=== PATIENT | male | born 1950 | race Caucasian/White ===

== ENCOUNTER 2017-10-24 16:55 | Inpatient (IN) | payer MEDICARE, OTHER, SELFPAY ==
[2017-10-24] VITALS (9 sets, daily range): BP systolic 105–152; BP diastolic 58–84; PULSE 92–138; RESP 12–18; TEMP 37–37.2; O2SAT 93–98; BMI 31.6; BMI 30.9
--- NOTE | 2017-10-24 17:15 | NURSING ---
NO OLD EKGS
--- NOTE | 2017-10-24 17:33 | EKG12_ITS ---
Test Reason : SEPTIC Blood Pressure : / mmHG Vent. Rate : 134 BPM Atrial Rate : 134 BPM P-R Int : 146 ms QRS Dur : 078 ms QT Int : 284 ms P-R-T Axes : 040 -03 062 degrees QTc Int : 424 ms Sinus tachycardia Low voltage QRS Borderline ECG Confirmed by TITI GALLEGOS ([id number]), primer expeditor and drier ANTWON LLAMAS ([id number]) on 10/28/2017 2:23:24 PM Referred By: KWAN MUELLER Confirmed By:TITI GALLEGOS
--- NOTE | 2017-10-24 17:39 | ED.VISSUMM ---
- ER Visit Summary Date of Service: 10/24/17 Chief Complaint: Right lower leg redness History of Present Illness: The patient is a 66 M for Parkinson's disease, tww-dqcptyz-zqalnedje diabetes and prior right lower leg cellulitis earlier this year in which he became septic from it according to his . At that time he was admitted to the hospital in [place]. He states that the right lower leg cellulitis started yesterday. He was feeling worse today and they decided to bring him in. Physical Examination: Older male vital signs stable he is tachycardic 134 is a low-grade temperature 99. His sat is 97 no hypoxia. H EENT exam unremarkable and mildly dry mucous members. Neck nontender. Lungs clear to auscultation. Heart is tachycardia rate about 135. No murmur. Abdomen soft nontender. Moving all 4 extremities. He has right lower leg cellulitis from the top of the right knee all way down to his foot. It is red it is warm and swollen. It does dipesh. There is no sloughing of skin. There is no necrotic skin. He has no inguinal lymphadenopathy or tenderness on the right. Left leg is not involved. Neurologically is awake and alert. He does have known Parkinson's disease. Test Results: EKG shows a sinus tachycardia rate of 134. CBC shows elevated white count of 21,000. No bands. Electrolytes unremarkable creatinine is 1.46. Normal gap. Liver enzymes unremarkable. PT PTT unremarkable. Lactic acid is elevated 2.9. Blood cultures are sent and pending. Emergency Department Course and Treatment: Patient will be treated as a cellulitis. He may have bacteremia or sepsis. Will be given IV fluid bolus. Tylenol for his fever. Is started on IV vancomycin. He will be admitted. Repeat exam patient is doing well at 2024. He will be given a second liter of fluid. Currently his blood pressure is 105/70. Treatment Plan: I spoke to the hospitalist Dr. Saenz is evaluating the patient for admission. Disposition: Admission Impression: Acute right lower extremity cellulitis Acute sepsis History of Parkinson's disease This note was generated with [employer] dictation software. It may contain incorrect words, spelling, and punctuation that were not noted in review of the chart prior to signing ED Disposition - Plan for ED Patient: Chief Complaint: Edema Referrals: [facility] Doctor,Out of [NON-STAFF] -
--- NOTE | 2017-10-24 17:43 | ED.DCSUM_ITS ---
- ER Visit Summary Date of Service: 10/24/17 Chief Complaint: Right lower leg redness History of Present Illness: The patient is a 66 M for Parkinson's disease, non- insulin-dependent diabetes and prior right lower leg cellulitis earlier this year in which he became septic from it according to his . At that time he was admitted to the hospital in [place]. He states that the right lower leg cellulitis started yesterday. He was feeling worse today and they decided to bring him in. Physical Examination: Older male vital signs stable he is tachycardic 134 is a low-grade temperature 99. His sat is 97 no hypoxia. H EENT exam unremarkable and mildly dry mucous members. Neck nontender. Lungs clear to auscultation. Heart is tachycardia rate about 135. No murmur. Abdomen soft nontender. Moving all 4 extremities. He has right lower leg cellulitis from the top of the right knee all way down to his foot. It is red it is warm and swollen. It does dipesh. There is no sloughing of skin. There is no necrotic skin. He has no inguinal lymphadenopathy or tenderness on the right. Left leg is not involved. Neurologically is awake and alert. He does have known Parkinson's disease. Test Results: EKG shows a sinus tachycardia rate of 134. CBC shows elevated white count of 21,000. No bands. Electrolytes unremarkable creatinine is 1.46. Normal gap. Liver enzymes unremarkable. PT PTT unremarkable. Lactic acid is elevated 2.9. Blood cultures are sent and pending. Emergency Department Course and Treatment: Patient will be treated as a cellulitis. He may have bacteremia or sepsis. Will be given IV fluid bolus. Tylenol for his fever. Is started on IV vancomycin. He will be admitted. Repeat exam patient is doing well at 2024. He will be given a second liter of fluid. Currently his blood pressure is 105/70. Treatment Plan: I spoke to the hospitalist Dr. Saenz is evaluating the patient for admission. Disposition: Admission Impression: Acute right lower extremity cellulitis Acute sepsis History of Parkinson's disease This note was generated with [employer] dictation software. It may contain incorrect words, spelling, and punctuation that were not noted in review of the chart prior to signing ED Disposition - Plan for ED Patient: Chief Complaint: Edema Referrals: [facility] Doctor,Out of [NON-STAFF] -
[2017-10-24 17:58] LABS: Absolute Lymphocyte Count 0.75 X10^3/ul (0.83-4.51); Absolute Neutrophil Count 19.4 X10^3/uL (2.0-7.7); Basophil# 0.02 X10^3/uL; Basophil% 0.1 % (0-1); Eosinophil# 0.01 X10^3/uL; Hematocrit 49.4 % (40-54); Hemoglobin 16.3 g/dl (13.0-16.5); Lymphocyte # 0.75 X10^3/ul (4.0); Lymphocyte % 3.5 % (19-41); Mean Corpuscular Hgb 30.2 pg (27.0-32.0); Mean Corpuscular Volume 91.7 fL (80-94); Mean Platelet Vol. 10.9 fl (6.2-12.0); Monocyte# 1.18 X10^3/uL; Monocyte% 5.5 % (0-10); Neutrophil # 19.42 X10^3/uL (2.7-7.7); Neutrophil % 90.7 % (47-70); Platelet Count 271 K/mm3 (150-450); RBC Distribution Width SD 46.4 fl (35.1-43.9); Red Blood Count 5.39 M/mm3 (4.6-6.2); White Blood Count 21.4 K/mm3 (4.4-11.0)
[2017-10-24 18:07] LABS: POSITIVE COUNT NO; POSITIVE DIFFERENTIAL NO; POSITIVE MORPHOLOGY NO
[2017-10-24 18:08] LABS: ALB/GLOB Ratio 0.7 RATIO (0.9-2.4); AST(SGOT) 15 U/L (15-37); Alanine Aminotransfer ALT/SGPT 10 U/L (16-61); Albumin, Serum 3.3 g/dL (3.2-5.0); Alkaline Phosphatase 84 U/L (45-117); Anion Gap 8 (5-15); BUN 16 mg/dL (7-18); Calcium,Total 9.5 mg/dL (8.5-10.1); Chloride 99 mmol/L (98-107); Creatinine, Serum 1.46 mg/dL (0.70-1.30); EST Glomerular Filtration Rate 51 mL/min (>60); Est Glom Filt Rate - Afr Amer 62 mL/min (>60); Estimated Creatinine Clearance 46.85 ml/min; Globulin 4.6 g/dL (2.2-4.2); Glucose 93 mg/dL (74-106); Potassium 4.2 mmol/L (3.5-5.1); Protein, Total 7.9 g/dL (6.4-8.2); Sodium Level 136 mmol/L (136-145)
[2017-10-24 18:11] LABS: International Normalized Ratio 1.1; Prothrombin Time (Protime)PT. 14.6 SECONDS (11.7-14.9)
[2017-10-24] MEDS: 0.9% Normal Saline 1,000 ML 999 ML IV ×2 (18:28→20:28)
[2017-10-24] MEDS: Acetaminophen 500 MG Tablet 1000 MG PO (18:28)
[2017-10-24 18:44] LABS: Lactic Acid 2.9 mmol/L (0.4-2.0)
--- NOTE | 2017-10-24 18:44 | ED.RN ---
lactic acid 2.[address] dr ayala aware
[2017-10-24 19:32] LABS: Partial Thromboplast Time 30.7 Seconds (24.1-36.2)
--- NOTE | 2017-10-24 20:45 | NURSING ---
Called [facility] ED charge nursesteffany to send patient to the floor.
--- NOTE | 2017-10-24 20:59 | PCM.HP.STD ---
Problem List (1) Parkinson disease Status: Acute (2) Cellulitis Status: Acute (3) Sepsis Status: Acute (4) DMII (diabetes mellitus, type 2) Status: Acute History of Present Illness Date of Admission: 10/24/17 Chief Complaint: Right leg cellulitis The patient is a 66 year old male w/ h/o Parkinson's disease, DMII and cellulitis admitted for right leg cellulitis. He was admitted earlier this year for right leg cellulitis that led to severe sepsis. He is a poor historian. History is taken from his . His noted that his right leg is red and warm. Redness got worse. Nothing made the redness better or worse. However today, he felt lethargic and his decided to bring him into the ED. No pain with the redness. No change in swelling with the redness. Past Medical History Allergies Penicillins [PCN] Allergy (Verified 10/24/17 16:55) Unknown Home Medications: Ambulatory Orders Medication Instructions Recorded Amantadine [Symmetrel] 100 mg PO BID 10/24/17 Aspirin E.C. [Ecotrin] 81 mg PO DAILY 10/24/17 Carbidopa/Levodopa 25/100 [Sinemet] 1 tablet PO 4X/DAY 10/24/17 Lisinopril [Zestril] 10 mg PO DAILY 10/24/17 Metformin HCl [Glucophage] 500 mg PO BIDCM 10/24/17 Pravastatin Sodium [Pravachol] 20 mg PO DAILY 10/24/17 Rasagiline Mesylate [Azilect] 1 tab PO DAILY 10/24/17 Ropinirole HCl [Requip] 2 mg PO 4X/DAY 10/24/17 Senna [Senokot] 1 tablet PO BID 10/24/17 Tamsulosin HCl [Flomax] 0.4 mg PO DAILY 10/24/17 Surgical History: no surgical history Lives: Spouse/ Significant Other Smoking Status: Never smoker Alcohol: None Drugs: None - *Family History Maternal History Items: No pertinent history Review of Systems Constitutional: Denies: Chills, Fever, Weight Change HEENT: Denies: Head Aches, Sinus Congestion, Sinus Drainage Cardiovascular: Denies: Chest Pain, Palpitations Respiratory: Denies: Cough, Shortness of breath at rest, Sputum production Gastrointestinal: Denies: Abdominal Pain, Nausea, Vomiting Genitourinary: Denies: Dysuria Musculoskeletal: Denies: Joint Pain, Joint Tenderness Skin: Reports: Rash, Skin Changes. Denies: Wounds Neurological: Denies: Numbness, Tingling, Focal weakness Psychiatric: Denies: Anxiety, Depression, Homicidal Ideations, Suicidal Ideations Hematologic/ Lymphatic: Denies: Easy Bruising, Easy Bleeding VTE Information - Inpt Only VTE Present on Admission: No VTE Mechan Device Prophylaxis: SCD's VTE Pharm Prophylaxis ordered?: Yes Patient Problems: Active and Suspected Problems Parkinson disease (Acute) Cellulitis (Acute) Sepsis (Acute) DMII (diabetes mellitus, type 2) (Acute) - Physical Exam General: Alert, Oriented x3, Cooperative HEENT: Atraumatic, PERRLA, EOMI, Normocephalic Neck: Supple, No JVD, Negative Carotid Bruits Lungs: Clear to auscultation, Normal air movement Cardiovascular: Regular rate, No murmurs Abdomen: Bowel Sounds Present, Soft, Non Tender Extremities: No edema, Capillary Refill Less than 3 Seconds Skin: No rashes, No breakdown Musculoskeletal: No Tenderness to Palpation of Joints or Extremities Neurological: Cranial nerves II-XII grossly intact Psych/Mental Status: Normal Affect, Appropriate Vital Signs Temp Pulse Resp BP Pulse Ox 98.6 F 125 H 16 105/66 95 10/24/17 18:34 10/24/17 20:20 10/24/17 20:20 10/24/17 20:20 10/24/17 20:20 Assessment/Plan All Active Problems Parkinson disease (Acute) Cellulitis (Acute) Sepsis (Acute) DMII (diabetes mellitus, type 2) (Acute) 66 year old male w/ h/o Parkinson's disease, DMII and cellulitis admitted for right leg cellulitis. 1) Sepsis secondary to right leg cellulitis: Will start cefazolin and vanco. Penicillin allergy noted. Cultures pending. 2) Parkinson's disease: Resume home meds. Monitor. 3) DMII: Resume home meds. 4) Prophylaxis: SCD / lovenox.
[2017-10-24 21:53] LABS: Hemoglobin A1c 5.6 % (4.2-6.3)
[2017-10-24 21:55] LABS: Reflex Lactate? Y
[2017-10-24 23:00] LABS: Lactic Acid 1.5 mmol/L (0.4-2.0)
[2017-10-24] MEDS: Pramipexole Di-HCl 1 MG Tablet PO (23:32)
[2017-10-24] MEDS: Senna Tablet 1 TABLET PO (23:32)
[2017-10-24] MEDS: Amantadine 100 MG Capsule PO (23:32)
[2017-10-24] MEDS: Cefazolin 1 GM/50 ML BAG IV (23:32)
[2017-10-24] MEDS: Carbidopa/Levodopa 25/100 Tablet PO (23:32)
[2017-10-24] MEDS: Tamsulosin HCl 0.4 MG Capsule PO (23:32)
[2017-10-24] MEDS: Pravastatin 20 MG Tablet PO (23:32)
[2017-10-24] MEDS: 0.9% Normal Saline 1,000 ML 100 ML IV (23:33)
[2017-10-25] VITALS (9 sets, daily range): BP systolic 107–130; BP diastolic 62–81; PULSE 57–112; RESP 16–18; TEMP 36.6–37.4; O2SAT 95–97
[2017-10-25 00:01] LABS: Bedside Glucose 101 mg/dL (70-110)
--- NOTE | 2017-10-25 01:34 | PCM.RX.CS ---
Consult Pharmacy has been consulted to manage selected antiobiotic: Vancomycin Type of Consult: New start Suspected Infection: Skin/Soft tissue Prior Doses of Antibiotics Received/Current Regimen: Medications Vancomycin HCl 750 mg/ Sodium (Chloride) 265 mls @ 250 mls/hr IV Q12H SANTO Discontinued Medications Vancomycin HCl 1,500 mg/ (Sodium Chloride) 530 mls @ 250 mls/hr IV X1 ONE Stop: 10/24/17 20:07 Last Admin: 10/24/17 18:28 Dose: 250 mls/hr Labs: Sodium 136 mmol/L (136-145) 10/24/17 17:14 Potassium 4.2 mmol/L (3.5-5.1) 10/24/17 17:14 Chloride 99 mmol/L (98-107) 10/24/17 17:14 Carbon Dioxide 29.0 mmol/L (21.0-32.0) 10/24/17 17:14 Anion Gap 8 (5-15) 10/24/17 17:14 BUN 16 mg/dL (7-18) 10/24/17 17:14 Creatinine 1.46 mg/dL (0.70-1.30) H 10/24/17 17:14 Est GFR (MDRD) Af Amer 62 mL/min (>60) 10/24/17 17:14 Est GFR (MDRD) Non-Af 51 mL/min (>60) L 10/24/17 17:14 BUN/Creatinine Ratio 11.0 RATIO (10-20) 10/24/17 17:14 Glucose 93 mg/dL (74-106) 10/24/17 17:14 Weight used for dosin.2 kg Estimated Creatinine Clearance: 47 Goal Trough: 15-20 mcg/mL Pharmacy Plan for Drug Dosing: Pharmacy Service will continue to monitor and adjust dosing as required. Follow-Up Labs: Trough Vancomycin Labs to be done on [date and time ordered]: 10/26/17 @0600
[2017-10-25] MEDS: Cefazolin 1 GM/50 ML BAG IV ×3 (05:40→22:17)
[2017-10-25 05:56] LABS: Bedside Glucose 109 mg/dL (70-110)
[2017-10-25] MEDS: 0.9% Normal Saline 1,000 ML 100 ML IV ×2 (09:00→22:30)
[2017-10-25] MEDS: Senna Tablet 1 TABLET PO ×2 (10:19→22:18)
[2017-10-25] MEDS: Amantadine 100 MG Capsule PO ×2 (10:19→22:19)
[2017-10-25] MEDS: Carbidopa/Levodopa 25/100 Tablet PO ×4 (10:19→22:17)
[2017-10-25] MEDS: Pramipexole Di-HCl 1 MG Tablet PO ×4 (10:20→22:18)
[2017-10-25] MEDS: Enoxaparin 40 MG/0.4 ML Syringe SC (10:20)
[2017-10-25] MEDS: Lisinopril 10 MG Tablet PO (10:21)
[2017-10-25 12:25] LABS: Bedside Glucose 79 mg/dL (70-110)
[2017-10-25 14:54] LABS: M R Staph aureus DNA By PCR Negative (Negative); Probe Check PASS; Specimen Processing Control PASS
--- NOTE | 2017-10-25 15:21 | CASEMGMT ---
CM INITIAL ASSESSMENT: Home: Patient lives with his . HHS/Aides: Denies current or past services. Patient does not drive. DME: Patient states he uses a cane when he's out of the home. He has a walker available, but does not use it. He has grab bars, a walk in shower with seat, and a high toilet seat. Home Oxygen: Denies. Pharmacy: [facility] Advance Directives: Yes, patient states his , Yamileth Ford, is medical POA. states she will bring these documents to [facility] for filing. PCP: Jean Claude Carranza ([facility], per patient) Patient states they've recently relocated from [place] to [place]. His PCP is listed above, but I did provide a list of local PCPs to the patient and spouse. Patient states he was treated in the hospital, for cellulitis, in February. He states he spent five weeks on a rehab unit after his hospital stay. DC Plan: TBD CM will continue to follow for safe and effective discharge planning.
--- NOTE | 2017-10-25 16:56 | PCM.PN.HOSP ---
Patient Problems: Active and Suspected Problems Parkinson disease (Acute) Cellulitis (Acute) Sepsis (Acute) DMII (diabetes mellitus, type 2) (Acute) Subjective: Patient has history of Parkinson disease, diabetes mellitus type 2 but his sugars has been between 180-110 at home was admitted with right lower extremity cellulitis. He had similar right lower leg cellulitis in February 2017. He has paronychia in the right foot toenails. Patient had a small blister on the right third toe and tiny dry ulcer. No drainage. Vitals/I&O's: Vital Signs Temp Pulse Resp BP Pulse Ox 97.9 F 57 L 16 107/62 97 10/25/17 16:00 10/25/17 16:00 10/25/17 16:00 10/25/17 16:00 10/25/17 16:00 Oxygen Delivery Method Room Air Weight: 203 lb 3 oz Body Mass Index (BMI) 30.9 Intake and Output for Last 24 Hours 10/23/17 10/24/17 10/25/17 23:59 23:59 23:59 Intake Total 2948 / 2948 Output Total 775 / 775 Balance 2173 / 2173 General: Alert, Oriented x3, Cooperative HEENT: Atraumatic, PERRLA, EOMI, Normocephalic Neck: Supple, No JVD, Negative Carotid Bruits Lungs: Clear to auscultation, Normal air movement Cardiovascular: Regular rate, Normal S1, Normal S2, No murmurs Abdomen: Bowel Sounds Present, Soft, Non Tender Extremities: Capillary Refill Less than 3 Seconds, Edema Skin: Ulcer/ Wound - Tiny small dry ulcers on the right third toe. Tenia infection in between toe webs with paronychia, Rash Present - Right leg cellulitis from right knee to right ankle. Right ankle is swollen. Musculoskeletal: No Tenderness to Palpation of Joints or Extremities Neurological: Cranial nerves II-XII grossly intact Psych/Mental Status: Normal Affect, Appropriate Laboratory Results 10/24/17 22:15: Lactic Acid 1.5 10/24/17 23:46: POC Glucose 101 10/25/17 05:45: POC Glucose 109 10/25/17 12:00: POC Glucose 79 10/25/17 13:20: MRSA (PCR) Negative Current Medications Amantadine HCl (Symmetrel) 100 mg PO 0800,1999 [facility] Aspirin (Ecotrin) 81 mg PO 2200 [facility] Carbidopa/Levodopa (Sinemet) 1 tablet PO 0800,1200,1600,2200 [facility] Last Admin: 10/25/17 16:40 Dose: 1 tablet Dextrose (D50w Syringe) 0 gm IV X1 PRN; Protocol PRN Reason: Hypoglycemia Enoxaparin Sodium (Lovenox) 40 mg SC DAILY [facility] Last Admin: 10/25/17 10:20 Dose: 40 mg Glucagon () 1 mg IM .X1 PRN PRN Reason: Hypoglycemia Cefazolin Sodium () 1 gm in 50 mls @ 150 mls/hr IV Q8 [facility] Last Admin: 10/25/17 13:54 Dose: 150 mls/hr Sodium Chloride () 1,000 mls @ 100 mls/hr IV .Q10H [facility] Last Admin: 10/25/17 09:00 Dose: 100 mls/hr Vancomycin IV Pharmacy to Dose (1 ea/ Sodium Chloride) 500 mls @ 250 mls/hr IV X1 PRN; Protocol PRN Reason: Rx to Dose Vancomycin HCl 750 mg/ Sodium (Chloride) 265 mls @ 250 mls/hr IV Q12H [facility] Last Admin: 10/25/17 06:06 Dose: 250 mls/hr Insulin Human Lispro (Humalog Kwikpen (Bkc)) 0 unit SQ Q6 [facility] PRN Reason: Protocol Last Admin: 10/25/17 16:41 Dose: Not Given Lisinopril (Zestril) 10 mg PO 0800 [facility] Metformin HCl (Glucophage) 500 mg PO BIDCM [facility] Last Admin: 10/25/17 16:41 Dose: 500 mg Nystatin (Mycostatin Powder) 1 applic TOPICAL TID [facility] PRN Reason: Protocol Ondansetron HCl (Zofran) 4 mg IV Q8H PRN PRN PRN Reason: Nausea Pramipexole Dihydrochloride (Mirapex) 1 mg PO 0800,1200,1600,2200 [facility] Last Admin: 10/25/17 16:40 Dose: 1 mg Pravastatin Sodium (Pravachol) 20 mg PO DAILY@2200 [facility] Last Admin: 10/24/17 23:32 Dose: 20 mg Rasagiline (Azilect) 1 mg PO 0800 [facility] Senna (Senokot) 1 tablet PO BID [facility] Last Admin: 09/08/18 10:19 Dose: 1 tablet Sodium Chloride () 5 - 30 ml IV UD PRN PRN Reason: SALINE FLUSH Tamsulosin HCl (Flomax) 0.4 mg PO 0830 [facility] Medical Necessity - Tobacco Use Smoking Status: Never smoker Assessment/Plan All Active Problems Parkinson disease (Acute) Cellulitis (Acute) Sepsis (Acute) DMII (diabetes mellitus, type 2) (Acute) The patient is a 66 year old male w/ h/o Parkinson's disease, DMII and cellulitis admitted for right leg cellulitis. He was admitted in February 2017 for similar right leg cellulitis that led to severe sepsis. Prior to admission patient was very lethargic with redness, pain and tenderness gotten worse. 1) Sepsis sinus tachycardia, (leukocytosis, lactic acidosis) secondary to right leg cellulitis, most probably strep selected: Initially started on IV cefazolin and vancomycin. MRSA nasal screen is negative. Discontinue vancomycin. Blood cultures pending. Continue IV fluid Small right third toe dry ulcer secondary to diabetic neuropathy/possible Charcot joint along with paronychia and chronic tinea pedis: Started on IV Diflucan. Nystatin powder in 2 weeks. Wound care nurse consult. Podiatry consult. 2) Parkinson's disease: Resume home meds. Blood sugar is between 79 201. Monitor. 3) DMII: Resume home meds. Blood sugar is controlled. 4) Prophylaxis: SCD / lovenox. Code Visit Inpatient E&M: 65941 [facility] L[facility]
[2017-10-25 17:01] LABS: Bedside Glucose 76 mg/dL (70-110)
[2017-10-25 18:43] LABS: Absolute Lymphocyte Count 1.21 X10^3/ul (0.83-4.51); Absolute Neutrophil Count 9.5 X10^3/uL (2.0-7.7); Basophil# 0.03 X10^3/uL; Basophil% 0.2 % (0-1); Eosinophil# 0.09 X10^3/uL; Eosinophils% 0.7 % (0-5); Hematocrit 42.2 % (40-54); Hemoglobin 13.8 g/dl (13.0-16.5); Lymphocyte # 1.21 X10^3/ul (4.0); Lymphocyte % 9.9 % (19-41); Mean Corp Hgb Conc 32.7 g/gl (32-36); Mean Corpuscular Hgb 30.3 pg (27.0-32.0); Mean Corpuscular Volume 92.7 fL (80-94); Mean Platelet Vol. 10.8 fl (6.2-12.0); Monocyte% 10.7 % (0-10); Neutrophil # 9.53 X10^3/uL (2.7-7.7); Neutrophil % 78.3 % (47-70); POSITIVE COUNT NO; POSITIVE DIFFERENTIAL NO; POSITIVE MORPHOLOGY NO; Platelet Count 216 K/mm3 (150-450); RBC Distribution Width CV 14.5 % (11.6-14.6); RBC Distribution Width SD 47.9 fl (35.1-43.9); Red Blood Count 4.55 M/mm3 (4.6-6.2); White Blood Count 12.2 K/mm3 (4.4-11.0)
[2017-10-25 19:01] LABS: Erythrocyte Sedimentation Rate 44 mm/hr (0-20)
[2017-10-25] MEDS: Aspirin E.C. 81 MG Tablet PO (22:18)
[2017-10-25] MEDS: Tamsulosin HCl 0.4 MG Capsule PO (22:18)
[2017-10-25] MEDS: Pravastatin 20 MG Tablet PO (22:18)
[2017-10-25 23:01] LABS: Bedside Glucose 98 mg/dL (70-110)
[2017-10-26] VITALS (9 sets, daily range): BP systolic 109–130; BP diastolic 63–82; PULSE 80–92; RESP 16–18; TEMP 36.6–37.2; O2SAT 97–98
[2017-10-26] MEDS: Cefazolin 1 GM/50 ML BAG IV ×3 (05:46→21:39)
[2017-10-26] MEDS: Nystatin Powder 15gm Bottle 1 APPLIC TOPICAL (05:47)
[2017-10-26 08:04] LABS: Vancomycin, Trough Level 5.5 ug/mL (5.0-15.0)
[2017-10-26] MEDS: Amantadine 100 MG Capsule PO ×2 (08:24→16:29)
[2017-10-26] MEDS: Senna Tablet 1 TABLET PO ×2 (08:24→21:39)
[2017-10-26] MEDS: Carbidopa/Levodopa 25/100 Tablet PO ×4 (08:25→21:39)
[2017-10-26] MEDS: Pramipexole Di-HCl 1 MG Tablet PO ×4 (08:25→21:39)
[2017-10-26] MEDS: Lisinopril 10 MG Tablet PO (08:25)
[2017-10-26] MEDS: Enoxaparin 40 MG/0.4 ML Syringe SC (08:25)
[2017-10-26 08:56] LABS: Bedside Glucose 75 mg/dL (70-110)
[2017-10-26] MEDS: 0.9% Normal Saline 1,000 ML 100 ML IV ×2 (10:03→22:48)
--- NOTE | 2017-10-26 10:42 | PN_ITS ---
Patient Problems: Active and Suspected Problems Parkinson disease (Acute) Cellulitis (Acute) Sepsis (Acute) DMII (diabetes mellitus, type 2) (Acute) Subjective: This 66 year old diabetic male with a history of parkinson's was consulted to podiatry for right 3rd toe ulcer. He was admitted for right lower leg cellulitis. He has been admitted for the same issue at a hospital in [place] in February. He said that the cellulitis resolved with antibiotics. He says that he noticed the leg starting to turn red again and that he felt lethargic so he came to the ER where he was admitted. He has been on IV antibiotics and says that he has felt better each day. He says the redness to his leg continues to improve. He denies any pain to either the leg or the toe currently. He currently denies any feelings of nausea, vomiting, fever, or chills. - Physical Exam General: Alert, Oriented x3, Cooperative, No apparent distress Extremities: No cyanosis, Capillary Refill Less than 3 Seconds - to distal digits of each foot, No Calf Tenderness - negative april and maxwell sign, Edema - slight lower extremity edema noted to right lower extremity, Peripheral Pulses Normal - DP and PT pulses palpable bilateral Skin: Ulcer/ Wound - Very superficial ulcer to distal right 3rd toe that measures approximately 0.4cm x 0.6 cm x 0.1 cm. There is no purulence, no increase in warmth, no probing, no tracking, no undermining. Resolving erythema appreciated to foot/leg. Hyperkeratotic skin appreciated overlying and surrounding the site. Musculoskeletal: No Tenderness to Palpation of Joints or Extremities, - - Hammer toe dorsally contracted digits 2-5 bialteral. Hallux malleus bilateral. Decreased ankle joing rom and strength due to parkinson's Neurological: Sensory exam intact to light touch and pain Psych/Mental Status: Normal Affect, Appropriate Vital Signs Temp Pulse Resp BP Pulse Ox 99.0 F 83 16 128/82 H 97 10/26/17 04:25 10/26/17 08:00 10/26/17 04:25 10/26/17 04:25 10/26/17 04:25 Oxygen Delivery Method Room Air Weight: 92.164 kg Body Mass Index (BMI) 30.9 Intake and Output for Last 24 Hours 10/24/17 10/25/17 10/26/17 23:59 23:59 23:59 Intake Total 3648 / 3648 1428 / 1428 Output Total 875 / 875 550 / 550 Balance 2773 / 2773 878 / 878 Laboratory Tests Past 24 Hrs 10/25/17 10/25/17 10/25/17 13:20 18:00 18:00 WBC 12.2 H RBC 4.55 L Hgb 13.8 Hct 42.2 MCV 92.7 MCH 30.3 MCHC 32.7 RDW 14.5 RDW Differential 47.9 H Plt Count 216 MPV 10.8 Immature Gran % (Auto) 0.200 Neut % (Auto) 78.3 H Lymph % (Auto) 9.9 L [place] % (Auto) 10.7 H Eos % (Auto) 0.7 Baso % (Auto) 0.2 Absolute Neuts (auto) 9.5 H Absolute Lymphs (auto) 1.21 Total Counted Not Reportable ESR 44 H C-React Prot Ext Range 140.00 H Vancomycin Trough MRSA (PCR) Negative 10/26/17 06:25 WBC RBC Hgb Hct MCV MCH MCHC RDW RDW Differential Plt Count MPV Immature Gran % (Auto) Neut % (Auto) Lymph % (Auto) [place] % (Auto) Eos % (Auto) Baso % (Auto) Absolute Neuts (auto) Absolute Lymphs (auto) Total Counted ESR C-React Prot Ext Range Vancomycin Trough 5.5 MRSA (PCR) POC Glucose 10/26/17 10/25/17 10/25/17 06:45 22:10 16:38 POC Glucose 75 98 76 10/25/17 12:00 POC Glucose 79 Medical Necessity - Tobacco Use Smoking Status: Never smoker Assessment/Plan All Active Problems Parkinson disease (Acute) Cellulitis (Acute) Sepsis (Acute) DMII (diabetes mellitus, type 2) (Acute) Superficial ulcer to distal right 3rd toe Resolving cellulitis right LE DM II Parkinson's Patient was carefully examined and reviewed bedside this morning. Patient resting comfortably and feeling well. His vital signs are currently stable. His WBC went from 21.4 on admission, down to 12.2 yesterday afternoon. Patient did have elevated ESR and CRP. Blood cultures were taken and results are still pending. 3 view foot x ray taken of right foot. There were no acute fractures or dislocations appreciated. There were some chronic degenerative arthritic changes noted as well as some calcaneal spurring. Currently there was no evidence of osteomyelitis and there was no soft tissue gas appreciated. Next, using number 15 blade, a mild selective debridement was performed to the right distal third toe. Hyperkeratotic tissue was removed. Ulcer site is very superficial, with no drainage, probing, or tracking noted. Once complete, the area was dressed with aquacel ag to the base, followed by 2x2 gauze, and dyana. Patient was instructed to keep pressure off of this area while it continues to heal. He says he understands this. DVT prophylaxis and medical management per primary team are appreciated. Podiatry will continue to follow this patient closely while in house.
[2017-10-26 11:46] LABS: Bedside Glucose 75 mg/dL (70-110)
[2017-10-26 16:50] LABS: Bedside Glucose 90 mg/dL (70-110)
--- NOTE | 2017-10-26 17:10 | PCM.PN.HOSP ---
Patient Problems: Active and Suspected Problems Parkinson disease (Acute) Cellulitis (Acute) Sepsis (Acute) DMII (diabetes mellitus, type 2) (Acute) Subjective: Right lower leg erythema and induration has improved but is still it covers from knee to ankle. Patient is small right third toe dry ulcer which happened after popping of blisters. Patient has history of Parkinson disease and masked facies. He was admitted in [facility] in February 2017 as mentioned before. Vitals/I&O's: Vital Signs Temp Pulse Resp BP Pulse Ox 98.2 F 82 16 119/63 97 10/26/17 14:00 10/26/17 14:00 10/26/17 14:00 10/26/17 14:00 10/26/17 14:00 Oxygen Delivery Method Room Air Weight: 203 lb 3 oz Body Mass Index (BMI) 30.9 Intake and Output for Last 24 Hours 10/24/17 10/25/17 10/26/17 23:59 23:59 23:59 Intake Total 3648 / 3648 1778 / 1778 Output Total 875 / 875 1025 / 1025 Balance 2773 / 2773 753 / 753 General: Alert, Oriented x3, Cooperative HEENT: Atraumatic, PERRLA, EOMI, Normocephalic Neck: Supple, No JVD, Negative Carotid Bruits Lungs: Clear to auscultation, Normal air movement Cardiovascular: Regular rate, Regular Rhythm, Normal S1, Normal S2, No murmurs Abdomen: Bowel Sounds Present, Soft, Non Tender, Non-Distended Extremities: Capillary Refill Less than 3 Seconds, Edema Skin: Rash Present - Right lower leg erythema and induration. No tenderness. Musculoskeletal: No Tenderness to Palpation of Joints or Extremities, Arthritic Changes Neurological: Cranial nerves II-XII grossly intact, Neuro grossly intact Psych/Mental Status: Normal Affect, Appropriate Laboratory Results 10/25/17 18:00: WBC 12.2 H, RBC 4.55 L, Hgb 13.8, Hct 42.2, MCV 92.7, MCH 30.3, MCHC 32.7, RDW 14.5, RDW Differential 47.9 H, Plt Count 216, MPV 10.8, Immature Gran % (Auto) 0.200, Neut % (Auto) 78.3 H, Lymph % (Auto) 9.9 L, [place] % (Auto) 10.7 H, Eos % (Auto) 0.7, Baso % (Auto) 0.2, Absolute Neuts (auto) 9.5 H, Absolute Lymphs (auto) 1.21, Total Counted Not Reportable, ESR 44 H 10/25/17 18:00: C-React Prot Ext Range 140.00 H 10/25/17 22:10: POC Glucose 98 10/26/17 06:25: Vancomycin Trough 5.5 10/26/17 06:45: POC Glucose 75 10/26/17 11:38: POC Glucose 75 10/26/17 16:26: POC Glucose 90 Current Medications Amantadine HCl (Symmetrel) 100 mg PO 0800,2000 [facility] Last Admin: 10/26/17 16:29 Dose: 100 mg Aspirin (Ecotrin) 81 mg PO 2200 [facility] Last Admin: 10/25/17 22:18 Dose: 81 mg Carbidopa/Levodopa (Sinemet) 1 tablet PO 0800,1200,1600,2200 [facility] Last Admin: 10/26/17 16:28 Dose: 1 tablet Dextrose (D50w Syringe) 0 gm IV X1 PRN; Protocol PRN Reason: Hypoglycemia Enoxaparin Sodium (Lovenox) 40 mg SC DAILY [facility] Last Admin: 10/26/17 08:25 Dose: 40 mg Glucagon () 1 mg IM .X1 PRN PRN Reason: Hypoglycemia Cefazolin Sodium () 1 gm in 50 mls @ 150 mls/hr IV Q8 [facility] Last Admin: 10/26/17 13:32 Dose: 150 mls/hr Sodium Chloride () 1,000 mls @ 100 mls/hr IV .Q10H [facility] Last Admin: 10/26/17 10:03 Dose: 100 mls/hr Fluconazole (Diflucan) 200 mg in 100 mls @ 100 mls/hr IV Q24 [facility] Last Admin: 10/26/17 10:02 Dose: 100 mls/hr Insulin Human Lispro (Humalog Kwikpen (Bkc)) 0 unit SC ACHS [facility] PRN Reason: Protocol Last Admin: 10/26/17 16:28 Dose: Not Given Lisinopril (Zestril) 10 mg PO 0800 [facility] Last Admin: 10/26/17 08:25 Dose: 10 mg Metformin HCl (Glucophage) 500 mg PO BIDCM [facility] Last Admin: 10/26/17 16:29 Dose: 500 mg Nystatin (Mycostatin Powder) 1 applic TOPICAL TID [facility] PRN Reason: Protocol Last Admin: 10/26/17 13:31 Dose: Not Given Ondansetron HCl (Zofran) 4 mg IV Q8H PRN PRN PRN Reason: Nausea Pramipexole Dihydrochloride (Mirapex) 1 mg PO 0800,1200,1600,2200 [facility] Last Admin: 10/26/17 16:29 Dose: 1 mg Pravastatin Sodium (Pravachol) 20 mg PO DAILY@2200 [facility] Last Admin: 10/25/17 22:18 Dose: 20 mg Rasagiline (Azilect) 1 mg PO 0800 [facility] Last Admin: 10/26/17 08:24 Dose: 1 mg Senna (Senokot) 1 tablet PO BID [facility] Last Admin: 10/26/17 08:24 Dose: 1 tablet Sodium Chloride () 5 - 30 ml IV UD PRN PRN Reason: SALINE FLUSH Tamsulosin HCl (Flomax) 0.4 mg PO DAILY@2200 [facility] Medical Necessity - Tobacco Use Smoking Status: Never smoker Assessment/Plan All Active Problems Parkinson disease (Acute) Cellulitis (Acute) Sepsis (Acute) DMII (diabetes mellitus, type 2) (Acute) The patient is a 66 year old male w/ h/o Parkinson's disease, DMII and cellulitis admitted for right leg cellulitis. He was admitted in February 2017 for similar right leg cellulitis that led to severe sepsis. Prior to admission patient was very lethargic with redness, pain and tenderness gotten worse. 1) Sepsis sinus tachycardia, (leukocytosis, lactic acidosis) secondary to right leg cellulitis, most probably strep selected: Initially started on IV cefazolin and vancomycin. MRSA nasal screen is negative. Discontinue vancomycin. Patient seen by benefits analyst Dr. Cabezas. Discussed with him. Foot x-rays reviewed and does not show acute fracture or dislocation but chronic degenerative arthritic changes. Patient is to follow-up benefits analyst but [facility] and he agrees to follow with Dr. Cabezas as an outpatient. Blood cultures pending. Continue IV fluid Small right third toe dry ulcer secondary to diabetic neuropathy/possible Charcot joint along with paronychia and chronic tinea pedis: Started on IV Diflucan. Nystatin powder in 2 weeks. Wound care nurse consult. Podiatry consult. 2) Parkinson's disease: Resume home meds. Blood sugar is between 79 201. Monitor. 3) DMII: Resume home meds. Blood sugar is controlled. 4) Prophylaxis: SCD / lovenox. If cellulitis gets better and leukocytosis resolved, anticipate discharge tomorrow a.m. Code Visit Inpatient E&M: 42641 Subs Hosp L2
[2017-10-26] MEDS: Tamsulosin HCl 0.4 MG Capsule PO (21:39)
[2017-10-26] MEDS: Pravastatin 20 MG Tablet PO (21:39)
[2017-10-26] MEDS: Aspirin E.C. 81 MG Tablet PO (21:39)
[2017-10-26 22:06] LABS: Bedside Glucose 102 mg/dL (70-110)
[2017-10-27] VITALS (11 sets, daily range): BP systolic 126–145; BP diastolic 71–83; PULSE 67–90; RESP 16–18; TEMP 36.4–36.9; O2SAT 97–98
[2017-10-27] MEDS: Cefazolin 1 GM/50 ML BAG IV ×3 (05:00→21:53)
[2017-10-27 06:30] LABS: Basophil# 0.03 X10^3/uL; Basophil% 0.3 % (0-1); Eosinophil# 0.31 X10^3/uL; Eosinophils% 3.4 % (0-5); Hematocrit 41.5 % (40-54); Hemoglobin 13.4 g/dl (13.0-16.5); Lymphocyte % 18.6 % (19-41); Mean Corp Hgb Conc 32.3 g/gl (32-36); Mean Corpuscular Hgb 29.8 pg (27.0-32.0); Mean Corpuscular Volume 92.4 fL (80-94); Mean Platelet Vol. 10.8 fl (6.2-12.0); Monocyte# 1.12 X10^3/uL; Monocyte% 12.3 % (0-10); Neutrophil # 5.96 X10^3/uL (2.7-7.7); Neutrophil % 65.2 % (47-70); Platelet Count 221 K/mm3 (150-450); RBC Distribution Width SD 47.4 fl (35.1-43.9); Red Blood Count 4.49 M/mm3 (4.6-6.2); White Blood Count 9.1 K/mm3 (4.4-11.0)
[2017-10-27 06:31] LABS: POSITIVE COUNT NO; POSITIVE DIFFERENTIAL NO; POSITIVE MORPHOLOGY NO
[2017-10-27 07:01] LABS: Bedside Glucose 90 mg/dL (70-110)
--- NOTE | 2017-10-27 07:42 | PN_ITS ---
Patient Problems: Active and Suspected Problems Parkinson disease (Acute) Cellulitis (Acute) Sepsis (Acute) DMII (diabetes mellitus, type 2) (Acute) Subjective: Patient was seen this morning for follow up right lower extremity cellulitis, and blister right 3rd toe. He denies any pain, relates he is doing well. No complaints of fever, chills, nausea, or vomiting. He relates he has had left foot pain for ~1 month, states there was no injury, he points to the medial foot as the site of the pain - he relates it is present when he gets up in the morning. He states he has custom foot orthotics which are ~4-5 years old. - Physical Exam General: Alert, Oriented x3, Cooperative, No apparent distress Extremities: No cyanosis, Capillary Refill Less than 3 Seconds, No Calf Tenderness, Peripheral Pulses Normal, - - Resolving cellulitis right foot/ankle/ leg. Superficial blister distal right 3rd toe healing well with very small residual opening present measuring less than 1mm x 1mm and down to dermal layer , tissues healthy and viable with no drainage, no visible abscess, no crepitus, no fluctuance, no necrosis, no maloder here or rest of foot/ankle/leg bilateral. Toenails 3-5 right are thickened, dystrophic, yellow with subungual debris. Sensation to touch bilateral foot and to level of the toes bilateral. He relates he has pain to the medial left foot, with some tenderness to the insertion of the posterior tibial tendon. No other POP or pain on ROM to the foot/ankle bilateral. There is no erythema or edema to the left foot/ankle/leg. Musculoskeletal: No Tenderness to Palpation of Joints or Extremities - to the foot or ankle. There is chronic contracture of the toes bilateral. Vital Signs Temp Pulse Resp BP Pulse Ox 97.7 F L 74 18 133/77 H 98 10/27/17 02:40 10/27/17 03:12 10/27/17 02:40 10/27/17 02:40 10/27/17 02:40 Oxygen Delivery Method Room Air Weight: 92.164 kg Body Mass Index (BMI) 30.9 Intake and Output for Last 24 Hours 10/25/17 10/26/17 10/27/17 23:59 23:59 23:59 Intake Total 3648 / 3648 2939 / 2939 600 / 600 Output Total 875 / 875 1625 / 1625 450 / 450 Balance 2773 / 2773 1314 / 1314 150 / 150 Laboratory Tests Past 24 Hrs 10/26/17 10/27/17 06:25 05:25 WBC 9.1 RBC 4.49 L Hgb 13.4 Hct 41.5 MCV 92.4 MCH 29.8 MCHC 32.3 RDW 14.0 RDW Differential 47.4 H Plt Count 221 MPV 10.8 Immature Gran % (Auto) 0.200 Neut % (Auto) 65.2 Lymph % (Auto) 18.6 L [place] % (Auto) 12.3 H Eos % (Auto) 3.4 Baso % (Auto) 0.3 Absolute Neuts (auto) 6.0 Absolute Lymphs (auto) 1.70 Total Counted Not Reportable Vancomycin Trough 5.5 POC Glucose 10/27/17 10/26/17 10/26/17 06:49 21:34 16:26 POC Glucose 90 102 90 10/26/17 10/26/17 11:38 06:45 POC Glucose 75 75 Medical Necessity - Tobacco Use Smoking Status: Never smoker Assessment/Plan All Active Problems Parkinson disease (Acute) Cellulitis (Acute) Sepsis (Acute) DMII (diabetes mellitus, type 2) (Acute) Cellulitis right foot/ankle/leg Blister right 3rd toe Dystrophic Toes/Onychomycosis Diabetes Parkinson's Disease Posterior tibial tendonitis, left foot Cellulitis resolving and overall much improved. WBC now within normal limits. Blister right 3rd toe healing well, a culture was obtained and sent to microbiology. Blood culture results pending. Patient has been responding well to the Ancef - c/w strep infection. Continue with antibiotic therapy, and follow cultures. Continue with dressing changes right 3rd toe - Aquacel Ag and overlying gauze dressing. Change daily. Avoid weightbearing to the right 3rd toe. Patient also relating to pain in left foot for ~1 month at level of posterior tibial tendon insertion. Left foot xrays, 3 views, weightbearing were ordered. Patient relates his custom foot orthotics are 4-5 years old, he would benefits from a new updated pair. He will follow up as outpatient for this. Debrided toenails with a nail nipper, this was done without incident. Podiatry will continue to follow. Patient to follow up in our office for follow up once discharged. This was discussed with patient, he agreed with plan.
[2017-10-27] MEDS: Enoxaparin 40 MG/0.4 ML Syringe SC (08:26)
[2017-10-27] MEDS: Carbidopa/Levodopa 25/100 Tablet PO ×4 (08:27→21:52)
[2017-10-27] MEDS: Pramipexole Di-HCl 1 MG Tablet PO ×4 (08:27→21:52)
[2017-10-27] MEDS: Senna Tablet 1 TABLET PO ×2 (08:27→21:51)
[2017-10-27] MEDS: Lisinopril 10 MG Tablet PO (08:27)
[2017-10-27] MEDS: Amantadine 100 MG Capsule PO ×2 (08:27→19:56)
[2017-10-27] MEDS: 0.9% Normal Saline 1,000 ML 100 ML IV ×2 (08:30→19:55)
[2017-10-27 10:50] LABS: M R Staph aureus DNA By PCR Negative (Negative); Probe Check PASS; Specimen Processing Control PASS; Staph aureus DNA By PCR NEGATIVE (Negative)
--- NOTE | 2017-10-27 11:12 | PCM.PN.HOSP ---
Patient Problems: Active and Suspected Problems Parkinson disease (Acute) Cellulitis (Acute) Sepsis (Acute) DMII (diabetes mellitus, type 2) (Acute) Objective: GENERAL: cooperative HEENT: neck is supple, CHEST: Clear to auscultation bilaterally, HEART: Regular S1 S2, no audible murmurs ABDOMEN: soft, non-tender, normoactive bowel sounds, RECTAL: deferred MUSCULOSKELETAL: No joint swelling EXTREMITIES: No edema, no clubbing, no cyanosis. 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 signs SKIN: Erythema involving the right lower extremity from mid shaft to the foot Vitals/I&O's: Vital Signs Temp Pulse Resp BP Pulse Ox 97.9 F 86 18 127/71 H 97 10/27/17 08:38 10/27/17 08:38 10/27/17 08:38 10/27/17 08:38 10/27/17 08:38 Oxygen Delivery Method Room Air Weight: 92.164 kg Body Mass Index (BMI) 30.9 Intake and Output for Last 24 Hours 10/25/17 10/26/17 10/27/17 23:59 23:59 23:59 Intake Total 3648 / 3648 2939 / 2939 600 / 600 Output Total 875 / 875 1625 / 1625 450 / 450 Balance 2773 / 2773 1314 / 1314 150 / 150 Laboratory Results 10/26/17 11:38: POC Glucose 75 10/26/17 16:26: POC Glucose 90 10/26/17 21:34: POC Glucose 102 10/27/17 05:25: WBC 9.1, RBC 4.49 L, Hgb 13.4, Hct 41.5, MCV 92.4, MCH 29.8, MCHC 32.3, RDW 14.0, RDW Differential 47.4 H, Plt Count 221, MPV 10.8, Immature Gran % (Auto) 0.200, Neut % (Auto) 65.2, Lymph % (Auto) 18.6 L, [place] % (Auto) 12.3 H, Eos % (Auto) 3.4, Baso % (Auto) 0.3, Absolute Neuts (auto) 6.0, Absolute Lymphs (auto) 1.70, Total Counted Not Reportable 10/27/17 06:49: POC Glucose 90 10/27/17 07:40: S.aureus Protein A PCR NEGATIVE, MRSA (PCR) Negative Current Medications Amantadine HCl (Symmetrel) 100 mg PO 0800,2000 [facility] Last Admin: 10/27/17 08:27 Dose: 100 mg Aspirin (Ecotrin) 81 mg PO 2200 [facility] Last Admin: 10/26/17 21:39 Dose: 81 mg Carbidopa/Levodopa (Sinemet) 1 tablet PO 0800,1200,1600,2200 [facility] Last Admin: 10/27/17 08:27 Dose: 1 tablet Dextrose (D50w Syringe) 0 gm IV X1 PRN; Protocol PRN Reason: Hypoglycemia Enoxaparin Sodium (Lovenox) 40 mg SC DAILY [facility] Last Admin: 10/27/17 08:26 Dose: 40 mg Glucagon () 1 mg IM .X1 PRN PRN Reason: Hypoglycemia Cefazolin Sodium () 1 gm in 50 mls @ 150 mls/hr IV Q8 [facility] Last Admin: 10/27/17 05:00 Dose: 150 mls/hr Sodium Chloride () 1,000 mls @ 100 mls/hr IV .Q10H [facility] Last Admin: 10/27/17 08:30 Dose: 100 mls/hr Fluconazole (Diflucan) 200 mg in 100 mls @ 100 mls/hr IV Q24 [facility] Last Admin: 10/27/17 10:56 Dose: 100 mls/hr Insulin Human Lispro (Humalog Kwikpen (Bkc)) 0 unit SC ACHS [facility] PRN Reason: Protocol Last Admin: 10/27/17 07:36 Dose: Not Given Lisinopril (Zestril) 10 mg PO 0800 [facility] Last Admin: 10/27/17 08:27 Dose: 10 mg Metformin HCl (Glucophage) 500 mg PO BIDCM [facility] Last Admin: 10/27/17 08:27 Dose: 500 mg Nystatin (Mycostatin Powder) 1 applic TOPICAL TID [facility] PRN Reason: Protocol Last Admin: 10/27/17 05:00 Dose: Not Given Ondansetron HCl (Zofran) 4 mg IV Q8H PRN PRN PRN Reason: Nausea Pramipexole Dihydrochloride (Mirapex) 1 mg PO 0800,1200,1600,2200 [facility] Last Admin: 10/27/17 08:27 Dose: 1 mg Pravastatin Sodium (Pravachol) 20 mg PO DAILY@2200 [facility] Last Admin: 10/26/17 21:39 Dose: 20 mg Rasagiline (Azilect) 1 mg PO 0800 [facility] Last Admin: 10/27/17 08:29 Dose: 1 mg Senna (Senokot) 1 tablet PO BID [facility] Last Admin: 10/27/17 08:27 Dose: 1 tablet Sodium Chloride () 5 - 30 ml IV UD PRN PRN Reason: SALINE FLUSH Tamsulosin HCl (Flomax) 0.4 mg PO DAILY@2199 [facility] Last Admin: 10/26/17 21:39 Dose: 0.4 mg Medical Necessity - Tobacco Use Smoking Status: Never smoker Assessment/Plan All Active Problems Parkinson disease (Acute) Cellulitis (Acute) Sepsis (Acute) DMII (diabetes mellitus, type 2) (Acute) Patient is a 66-year-old gentleman with past medical history significant for Parkinson's disease, diabetes mellitus type 2 who presented with right lower extremity erythema and warmth consistent with cellulitis. Patient was also assessed to be septic on admission treatment initiated per protocol admitted to a monitored bed for further management 1. Sepsis secondary to right lower extremity cellulitis suspected to be streptococcal in origin patient was managed with cefazolin and vancomycin MRSA nasal screen apparently came back negative vancomycin discontinued. Patient stated this is his second episode in less than 6 months consultation was therefore placed to infectious disease 2. Diabetes mellitus type II patient is on metformin this was continued in addition to Accu-Cheks before meals and at bedtime with sliding scale coverage 3. Parkinson's disease did continue with home meds . Obesity with BMI of 30.9 weight loss advised 5. Hypertension-blood pressure controlled, home medications continued with dose adjustment as needed 6. Dyslipidemia-patient is on statin therapy, continued at home dose 7. BPH on Flomax 8. DVT prophylaxis SC Lovenox Active Medications Amantadine HCl (Symmetrel) 100 mg PO 0800,2000 [facility] Last Admin: 10/27/17 08:27 Dose: 100 mg Aspirin (Ecotrin) 81 mg PO 2199 [facility] Last Admin: 10/26/17 21:39 Dose: 81 mg Carbidopa/Levodopa (Sinemet) 1 tablet PO 0800,1200,1600,2200 [facility] Last Admin: 10/27/17 11:33 Dose: 1 tablet Dextrose (D50w Syringe) 0 gm IV X1 PRN; Protocol PRN Reason: Hypoglycemia Enoxaparin Sodium (Lovenox) 40 mg SC DAILY [facility] Last Admin: 10/27/17 08:26 Dose: 40 mg Glucagon () 1 mg IM .X1 PRN PRN Reason: Hypoglycemia Cefazolin Sodium () 1 gm in 50 mls @ 150 mls/hr IV Q8 [facility] Last Admin: 10/27/17 05:00 Dose: 150 mls/hr Sodium Chloride () 1,000 mls @ 100 mls/hr IV .Q10H [facility] Last Admin: 10/27/17 08:30 Dose: 100 mls/hr Fluconazole (Diflucan) 200 mg in 100 mls @ 100 mls/hr IV Q24 [facility] Last Admin: 10/27/17 10:56 Dose: 100 mls/hr Insulin Human Lispro (Humalog Kwikpen (Bkc)) 0 unit SC ACHS [facility] PRN Reason: Protocol Last Admin: 10/27/17 11:33 Dose: Not Given Lisinopril (Zestril) 10 mg PO 0800 [facility] Last Admin: 10/27/17 08:27 Dose: 10 mg Metformin HCl (Glucophage) 500 mg PO BIDCM [facility] Last Admin: 10/27/17 08:27 Dose: 500 mg Nystatin (Mycostatin Powder) 1 applic TOPICAL TID [facility] PRN Reason: Protocol Last Admin: 10/27/17 05:00 Dose: Not Given Ondansetron HCl (Zofran) 4 mg IV Q8H PRN PRN PRN Reason: Nausea Pramipexole Dihydrochloride (Mirapex) 1 mg PO 0800,1200,1600,2200 [facility] Last Admin: 10/27/17 11:33 Dose: 1 mg Pravastatin Sodium (Pravachol) 20 mg PO DAILY@2200 [facility] Last Admin: 10/26/17 21:39 Dose: 20 mg Rasagiline (Azilect) 1 mg PO 0800 [facility] Last Admin: 10/27/17 08:29 Dose: 1 mg Senna (Senokot) 1 tablet PO BID [facility] Last Admin: 10/27/17 08:27 Dose: 1 tablet Sodium Chloride () 5 - 30 ml IV UD PRN PRN Reason: SALINE FLUSH Tamsulosin HCl (Flomax) 0.4 mg PO DAILY@2200 [facility] Last Admin: 10/26/17 21:39 Dose: 0.4 mg Code Visit Inpatient E&M: 63918 Subs Hosp L2
[2017-10-27 11:41] LABS: Bedside Glucose 80 mg/dL (70-110)
--- NOTE | 2017-10-27 14:21 | CON.PCM_ITS ---
Reason for Consult: Right leg cellulitis Consulted by: Dr. Mcgarry History of Present Illness: The patient is a 66 year old M [] This is a 66-year-old gentleman long-standing history of diabetes mellitus, Parkinson's disease, history of right leg cellulitis which she was hospitalized in [facility] in February for which she received antimicrobial therapy. At that time he was seen by an infectious disease doctor Dr. Hwang and was managed at that time with antibiotics. Patient is now readmitted here to [facility] with right leg erythema found to have a marked leukocytosis. Patient was placed on cefazolin empirically. His admission blood cultures remain negative. The patient states that his right leg erythema has improved over the last 48-72 hours. No further fevers. This is a second episode of lower extremity cellulitis. No cardiopulmonary distress. No gastrointestinal symptoms he is otherwise hemodynamically stable at this time. - Medical History Allergies/Adverse Reactions: Allergies Penicillins [PCN] Allergy (Verified 10/24/17 21:46) Unknown Home Medications: Ambulatory Orders Medication Instructions Recorded Amantadine [Symmetrel] 100 mg PO BID 10/24/17 Aspirin E.C. [Ecotrin] 81 mg PO DAILY 10/24/17 Carbidopa/Levodopa 25/100 [Sinemet] 1 tablet PO 4X/DAY 10/24/17 Lisinopril [Zestril] 10 mg PO DAILY 10/24/17 Metformin HCl [Glucophage] 500 mg PO BIDCM 10/24/17 Pravastatin Sodium [Pravachol] 20 mg PO DAILY 10/24/17 Rasagiline Mesylate [Azilect] 1 tab PO DAILY 10/24/17 Ropinirole HCl [Requip] 2 mg PO 4X/DAY 10/24/17 Senna [Senokot] 1 tablet PO BID 10/24/17 Tamsulosin HCl [Flomax] 0.4 mg PO DAILY 10/24/17 Vital Signs Temp Pulse Resp BP Pulse Ox 97.9 F 90 18 127/71 H 97 10/27/17 08:38 10/27/17 11:09 10/27/17 08:38 10/27/17 08:38 10/27/17 08:38 Oxygen Delivery Method Room Air Weight: 92.164 kg Body Mass Index (BMI) 30.9 Laboratory Tests Past 24 Hrs 10/27/17 10/27/17 05:25 07:40 WBC 9.1 RBC 4.49 L Hgb 13.4 Hct 41.5 MCV 92.4 MCH 29.8 MCHC 32.3 RDW 14.0 RDW Differential 47.4 H Plt Count 221 MPV 10.8 Immature Gran % (Auto) 0.200 Neut % (Auto) 65.2 Lymph % (Auto) 18.6 L [place] % (Auto) 12.3 H Eos % (Auto) 3.4 Baso % (Auto) 0.3 Absolute Neuts (auto) 6.0 Absolute Lymphs (auto) 1.70 Total Counted Not Reportable S.aureus Protein A PCR NEGATIVE MRSA (PCR) Negative - Other Studies Radiology: [] Other Studies: [] Route of nutrition/ use of supplements: [] Nutritional Intake: [] IV Site: [] Vincent Catheter: [] Patient alert does not appear toxic head and neck exams unremarkable lungs with clear heart exam S1-S2 abdomen soft nontender he does have some erythema in his right leg. Left leg looks benign both feet I examined no signs of active infection in his feet - Assessment/Plan Antibiotics: [] Assessment/Plan: [] Active and Suspected Problems Parkinson disease (Acute) Cellulitis (Acute) Sepsis (Acute) DMII (diabetes mellitus, type 2) (Acute) Sepsis with right leg cellulitis clinically improving on Ancef 1 g every 8 hours. Given the clinical improvement will continue current antimicrobial therapy. Anticipate that he will be transferred over to oral antibiotics in the form of Keflex 500 mg p.o. 4 times daily for 7-10 more days upon discharge. Given the fact that this is his second episode I do not see a need for chronic suppressive oral antibiotics to prevent subsequent episodes but however if he has further bouts of infection especially his skin and soft tissue infection we must entertain the possibility of oral suppressive antibiotics such as penicillin or Keflex on a daily basis.
[2017-10-27 17:01] LABS: Bedside Glucose 111 mg/dL (70-110)
[2017-10-27] MEDS: Acetaminophen 325 MG Tablet 650 MG PO (20:33)
[2017-10-27] MEDS: Pravastatin 20 MG Tablet PO (21:52)
[2017-10-27] MEDS: Tamsulosin HCl 0.4 MG Capsule PO (21:53)
[2017-10-27] MEDS: Aspirin E.C. 81 MG Tablet PO (21:53)
[2017-10-27 22:06] LABS: Bedside Glucose 138 mg/dL (70-110)
[2017-10-28 02:36] VITALS: BP 137/74; PULSE 60; RESP 16; TEMP 36.5; O2SAT 99
[2017-10-28 03:14] VITALS: PULSE 62
[2017-10-28] MEDS: Cefazolin 1 GM/50 ML BAG IV (06:03)
[2017-10-28] MEDS: 0.9% Normal Saline 1,000 ML 100 ML IV (06:03)
[2017-10-28 07:30] VITALS: PULSE 61
[2017-10-28 07:35] LABS: Bedside Glucose 89 mg/dL (70-110)
[2017-10-28 08:00] VITALS: BP 125/69; PULSE 64; RESP 16; TEMP 36.7; O2SAT 98
[2017-10-28] MEDS: Carbidopa/Levodopa 25/100 Tablet PO (08:06)
[2017-10-28] MEDS: Amantadine 100 MG Capsule PO (08:06)
[2017-10-28] MEDS: Lisinopril 10 MG Tablet PO (08:06)
[2017-10-28] MEDS: Pramipexole Di-HCl 1 MG Tablet PO (08:07)
[2017-10-28] MEDS: Senna Tablet 1 TABLET PO (08:12)
--- NOTE | 2017-10-28 09:29 | PCM.PROGNOTE ---
Patient Problems: Active and Suspected Problems Parkinson disease (Acute) Cellulitis (Acute) Sepsis (Acute) DMII (diabetes mellitus, type 2) (Acute) Subjective: Patient was seen today for follow up right foot and left foot. States he is doing well, no new complaints. No complaints of fever, chills, nausea or vomiting. Patient sitting up in chair eating breakfast. - Physical Exam General: Alert, Oriented x3, Cooperative, No apparent distress Extremities: No cyanosis, Capillary Refill Less than 3 Seconds, No Calf Tenderness, Peripheral Pulses Normal, - - Cellulitis right foot/ankle/leg practically resolved. Superficial blister distal right 3rd toe healed, tissues healthy and viable with no drainage, no visible abscess, no crepitus, no fluctuance, no necrosis, no maloder here or rest of foot/ankle/leg bilateral. Sensation to touch bilateral foot and to level of the toes bilateral. He relates he has pain to the medial left foot, with some tenderness to the insertion of the posterior tibial tendon along medial foot. Gastrocsolues equinus bilateral. Contracture of toes bilateral. No other POP or pain on ROM to the foot/ankle bilateral. There is no erythema or edema to the left foot/ankle/leg. Vital Signs Temp Pulse Resp BP Pulse Ox 97.7 F L 61 16 137/74 H 99 10/28/17 02:36 10/28/17 07:30 10/28/17 02:36 10/28/17 02:36 10/28/17 02:36 Oxygen Delivery Method Room Air Weight: 92.164 kg Body Mass Index (BMI) 30.9 Intake and Output for Last 24 Hours 10/26/17 10/27/17 10/28/17 23:59 23:59 23:59 Intake Total 2939 / 2939 2490 / 2490 1499 / 1499 Output Total 1625 / 1625 1200 / 1200 700 / 700 Balance 1314 / 1314 1290 / 1290 799 / 799 Microbiology Past 72 Hours 10/27/17 07:40 Gram Stain - Final Wound - Toe Laboratory Tests Past 24 Hrs 10/27/17 07:40 S.aureus Protein A PCR NEGATIVE MRSA (PCR) Negative POC Glucose 10/28/17 10/27/17 10/27/17 06:51 21:50 16:55 POC Glucose 89 138 H 111 H 10/27/17 11:30 POC Glucose 80 Medical Necessity - Tobacco Use Smoking Status: Never smoker Assessment/Plan All Active Problems Parkinson disease (Acute) Cellulitis (Acute) Sepsis (Acute) DMII (diabetes mellitus, type 2) (Acute) Cellulitis right foot/ankle/leg Blister right 3rd toe Dystrophic Toes/Onychomycosis Diabetes Parkinson's Disease Posterior tibial tendonitis, left foot Gastrocsoleus equinus Cellulitis significant improvement noted. Blister right 3rd toe heal is healed. Reviewed culture results. Patient has been responding well to the Ancef - Infectious Disease following patient, and recommended Keflex for discharge. 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 Continue with dressing changes right 3rd toe to keep protected - Aquacel Ag and overlying gauze dressing applied today. Switch to dry gauze dressing when patient goes home to keep protected until he follows up as outpatient. Reviewed left foot xrays - no acute findings noted. Clinically c/w posterior tibial tendonitis, as well as gastrocsoleus equinus. Reviewed home stretching exercises. Patient relates his custom foot orthotics are 4-5 years old, he would benefits from a new updated pair. He will follow up as outpatient for this. Podiatry will continue to follow. Patient to follow up in our office early next week once discharged. This was discussed with patient, he agreed with plan.
--- NOTE | 2017-10-28 09:35 | PCM.DC.POD ---
Weight Bearing Status: - - Limit weightbearing to toes right foot Additional Dressing/Incision Instructions:: Right 3rd toe - cleanse with soap and clean water - apply overlying dry gauze dressing - change daily. Additional Instructions: Follow up with Dr. Cabezas or Dr. Tripathi at [facility] ([address], [address]), [place], [place] for follow up foot care next week, sooner if needed. Allergies/Adverse Reactions: Allergies Penicillins [PCN] Allergy (Verified 10/24/17 21:46) Unknown Medications to take at Discharge Amantadine [Symmetrel] 100 mg PO BID 10/24/17 Aspirin E.C. [Ecotrin] 81 mg PO DAILY 10/24/17 Carbidopa/Levodopa 25/100 [Sinemet] 1 tablet PO 4X/DAY 10/24/17 Lisinopril [Zestril] 10 mg PO DAILY 10/24/17 Metformin HCl [Glucophage] 500 mg PO BIDCM 10/24/17 Pravastatin Sodium [Pravachol] 20 mg PO DAILY 10/24/17 Rasagiline Mesylate [Azilect] 1 tab PO DAILY 10/24/17 Ropinirole HCl [Requip] 2 mg PO 4X/DAY 10/24/17 Senna [Senokot] 1 tablet PO BID 10/24/17 Tamsulosin HCl [Flomax] 0.4 mg PO DAILY 10/24/17 Primary Care Physician: [facility] Doctor,Out of [NON-STAFF] - Test Results: Test results from this visit will be discussed in further detail at your follow-up appointment, if applicable.
--- NOTE | 2017-10-28 09:38 | DCINST_ITS ---
Weight Bearing Status: - - Limit weightbearing to toes right foot Additional Dressing/Incision Instructions:: Right 3rd toe - cleanse with soap and clean water - apply overlying dry gauze dressing - change daily. Additional Instructions: Follow up with Dr. Cabezas or Dr. Tripathi at [facility] ([address], [address]), [place], [place] for follow up foot care next week, sooner if needed. Allergies/Adverse Reactions: Allergies Penicillins [PCN] Allergy (Verified 10/24/17 21:46) Unknown Medications to take at Discharge Amantadine [Symmetrel] 100 mg PO BID 10/24/17 Aspirin E.C. [Ecotrin] 81 mg PO DAILY 10/24/17 Carbidopa/Levodopa 25/100 [Sinemet] 1 tablet PO 4X/DAY 10/24/17 Lisinopril [Zestril] 10 mg PO DAILY 10/24/17 Metformin HCl [Glucophage] 500 mg PO BIDCM 10/24/17 Pravastatin Sodium [Pravachol] 20 mg PO DAILY 10/24/17 Rasagiline Mesylate [Azilect] 1 tab PO DAILY 10/24/17 Ropinirole HCl [Requip] 2 mg PO 4X/DAY 10/24/17 Senna [Senokot] 1 tablet PO BID 10/24/17 Tamsulosin HCl [Flomax] 0.4 mg PO DAILY 10/24/17 Primary Care Physician: [facility] Doctor,Out of [NON-STAFF] - Test Results: Test results from this visit will be discussed in further detail at your follow- up appointment, if applicable.
--- NOTE | 2017-10-28 09:56 | PCM.DC ---
- Discharge Diagnoses Current Active Problems: Current Active and Chronic Problems Parkinson disease (Acute) Cellulitis (Acute) Sepsis (Acute) DMII (diabetes mellitus, type 2) (Acute) You will use the following diet at home:: Calorie/Carbohydrate Controlled (specify 1200, 1400, etc) - 1800 Your food should be the consistency of: Regular Discharge Activity: Return to Normal Activity Weight Bearing Status: - - Limit weightbearing to toes right foot Additional Dressing/Incision Instructions:: Right 3rd toe - cleanse with soap and clean water - apply overlying dry gauze dressing - change daily. Allergies/Adverse Reactions: Allergies Penicillins [PCN] Allergy (Verified 10/24/17 21:46) Unknown Medications to take at Discharge Amantadine [Symmetrel] 100 mg PO BID 10/24/17 Aspirin E.C. [Ecotrin] 81 mg PO DAILY 10/24/17 Carbidopa/Levodopa 25/100 [Sinemet 25/100] 1 tablet PO 4X/DAY 10/24/17 Lisinopril [Zestril] 10 mg PO DAILY 10/24/17 Metformin HCl [Glucophage] 500 mg PO BIDCM 10/24/17 Pravastatin Sodium [Pravachol] 20 mg PO DAILY 10/24/17 Rasagiline Mesylate [Azilect] 1 tab PO DAILY 10/24/17 Ropinirole HCl [Requip] 2 mg PO 4X/DAY 10/24/17 Senna [Senokot] 1 tablet PO BID 10/24/17 Tamsulosin HCl [Flomax] 0.4 mg PO DAILY 10/24/17 Cephalexin [Keflex] 500 mg PO Q6 #28 cap 10/28/17 The following prescriptions were given: Cephalexin [Keflex] 500 mg PO Q6 #28 cap Primary Care Physician: [facility] Doctor,Out of [NON-STAFF] - Test Results: Test results from this visit will be discussed in further detail at your follow-up appointment, if applicable. Please Follow Up With: Roman Tripathi DPM When: as scheduled Proposed Discharge Date: 10/28/17
--- NOTE | 2017-10-28 09:58 | PCM.DC.SUM ---
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 Patient was also assessed to be septic on admission treatment initiated per protocol admitted to a monitored bed for further management 1. Sepsis secondary to right lower extremity cellulitis suspected to be streptococcal in origin patient was managed with cefazolin and vancomycin MRSA nasal screen apparently came back negative vancomycin discontinued. Patient stated this is his second episode in less than 6 months consultation was therefore placed to infectious disease. Patient was seen in consultation by Dr. Chavo Lopez who did agree with the current regimen also recommended for patient to be discharged home on Keflex 2. Diabetes mellitus type II patient is on metformin this was continued in addition to Accu-Cheks before meals and at bedtime with sliding scale coverage 3. Parkinson's disease did continue with home meds . Obesity with BMI of 30.9 weight loss advised 5. Hypertension-blood pressure controlled, home medications continued with dose adjustment as needed 6. Dyslipidemia-patient is on statin therapy, continued at home dose 7. BPH on Flomax 8. DVT prophylaxis SC Lovenox Discharge Diet: 1800 Calorie Control Diet Discharge Activity: Return to Normal Activity Weight Bearing Status: - - Limit weightbearing to toes right foot Additional Dressing/Incision Instructions:: Right 3rd toe - cleanse with soap and clean water - apply overlying dry gauze dressing - change daily. Home Medications: Medications to take at Discharge Amantadine [Symmetrel] 100 mg PO BID 10/24/17 Aspirin E.C. [Ecotrin] 81 mg PO DAILY 10/24/17 Carbidopa/Levodopa 25/100 [Sinemet 25/100] 1 tablet PO 4X/DAY 10/24/17 Lisinopril [Zestril] 10 mg PO DAILY 10/24/17 Metformin HCl [Glucophage] 500 mg PO BIDCM 10/24/17 Pravastatin Sodium [Pravachol] 20 mg PO DAILY 10/24/17 Rasagiline Mesylate [Azilect] 1 tab PO DAILY 10/24/17 Ropinirole HCl [Requip] 2 mg PO 4X/DAY 10/24/17 Senna [Senokot] 1 tablet PO BID 10/24/17 Tamsulosin HCl [Flomax] 0.4 mg PO DAILY 10/24/17 Cephalexin [Keflex] 500 mg PO Q6 #28 cap 10/28/17 Following Prescrptions Were Given to Patient: Cephalexin [Keflex] 500 mg PO Q6 #28 cap Primary Care Physician: [facility],Out of [NON-STAFF] - Please Follow Up With: Roman Tripathi DPM When: as scheduled Additional Instructions: Follow up with Dr. Cabezas or Dr. Tripathi at [facility] ([address], [address]), [place], [place] for follow up foot care next week, sooner if needed. Disposition: Home Minutes spent on discharge:: 35 Patient Condition:: Stable Medical Necessity - Tobacco Use Smoking Status: Never smoker Meaningful Use Info Meaningful Use Diagnoses (Choose all that apply): None applicable Code Visit Inpatient E&M: 79198 Disch Hosp
--- NOTE | 2017-10-28 10:17 | CASEMGMT ---
Therapy is recommending outpt therapy to be set up for pt at this time. Pt states is already set up for therapy at [facility] but would like it to be extended. Call to [facility] to verify that order received and to notify that pt is already established, Jessica voices understanding. Pt also requests shower chair but according to Graham, [facility] does not cover shower chairs. Pt aware and states he will just go to [facility] and buy a shower chair. Pt states no further questions/concerns/needs at this time. Cm MARTINEZ CM
[2017-10-28 11:26] VITALS: PULSE 65
[2017-10-28 11:46] LABS: Bedside Glucose 87 mg/dL (70-110)
== END 2017-10-28 12:15 | disposition home or self-care (01) | DRG 872 ==
LOC: ED 20:35 → PCU 20:45
PROVIDERS: Internal Medicine; Podiatrist; Admitting Provider Internal Medicine; Emergency Provider Emergency Medicine; Family Provider Podiatrist; PCP Podiatrist; Visit Provider Internal Medicine
DX: A41.9 Sepsis, unspecified organism (principal); L03.115 Cellulitis of right lower limb; N40.0 Benign prostatic hyperplasia without lower urinary tract symptoms; G20 Parkinson's disease; Z88.0 Allergy status to penicillin; E66.9 Obesity, unspecified; I10 Essential (primary) hypertension; Z68.30 Body mass index [BMI] 30.0-30.9, adult; E78.5 Hyperlipidemia, unspecified; Z79.899 Other long term (current) drug therapy; E11.40 Type 2 diabetes mellitus with diabetic neuropathy, unspecified; B35.3 Tinea pedis; L03.031 Cellulitis of right toe; S90.424A Blister (nonthermal), right lesser toe(s), initial encounter; L60.2 Onychogryphosis; Z79.84 Long term (current) use of oral hypoglycemic drugs
CPT/HCPCS: 36415; 73630; 80053; 80202; 82962; 83036; 83605; 85025; 85610; 85652; 85730; 86140; 87040; 87070; 87075; 87205; 87640; 87641; 93005; 93970; 97110; 97116; 97162; 97166; 97530; 99285; J7030; J7040; J7050; A4216

== ENCOUNTER 2017-11-06 10:00 | Outpatient (RCR) | payer MEDICARE, OTHER, SELFPAY ==
--- NOTE | 2017-09-11 14:16 | HP.PTEVAL ---
Patient's Visit Information KATHARINE WATTS is a 66 year old M referred to Physical Therapy by Out of Town Doctor with a diagnosis of PD and imbalance. Date of Evaluation: 09/11/17 Physical Therapist: Phani Reagan DPT, OC - Visit Plan Frequency: 2x /Week Duration: 2 Months Plan: 2x/week for 6-8 weeks... Emphasis should be on getting patinet I with good technique on machine for ppostural and LE strength with FULL ROM movements. Also HS, quad, piri and LB rotation stretches, weight shifting balance ex and functional chair sit/lunge/steps ex with list for patient to do on own as safety allows. - Subjective Subjective: Just moved to [place]. I am a 66 yo man with PD, diagnosed 12/30. Was getting around pretty good with dystonia in R foot and toes curl under. Now working into L foot. Got cellulitis in L foot in February and septic in hosptial for 7 days and rehab for 5 weeks. Did outpatient strenuous workout with machines. Then he moved to [place]. Catches R foot every now and then. Treated him like old man at first rehab and now presents with more. No pain. No HEP. 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 Has stationary bike that he will start working again. Has LSVT and didn't like it much. Had a recent fall after tripping on his great citlali. Also fell once in empty house bending to sampler pickup phone and lost balance. Also fell again stepping around dog and caught toe on step the same day falling to knee, that was about 3 weeks ago. Has cane he uses sometimes and walker he uses sparingly. Steps got harder as the day goes on, sold house and moved to [place] closer to [place] with and has two grandchildren. Wants aggressive workout and to get up out of chair easier. Needs two arms now but could get up without upper extremity before hospital stay. Sleep is OK. [employer] insurance and drives to [place] intermittently( drives as he does nto anymore) - Objective Pt slow to transfer, takes time with bed adn mat transfers but I using UE for help. Steps require two UE but reciprocal and mod I. Movements of weight shifting and joint contractions are short, strong enough to bridge but does nto lift high enough. Short slow weight shifts cause patient to lose balance BW with ec as he doesnt shift forward quick enough. Log rolls vs segmental rolling. strength LE is 4/5 in hips and 4+ in quads and HS. Ankles are 4-/5 and slower to contract. Ankle AROM DF is -5 B, L foot shows pes planus. EV inv are WFL but slow. Knee and HIP AROM WFL, HS, gastroc and quad and piri all mod tight. 90/90 HS test is 45 degrees B. Higher tone in ppost LE. Posture is hunched over and kyphotic posturall in T/S. Sensation LE WNL to gross light touch. Reflexes 1/3 in patella and achilles. Coordination is moderate deficits of slow movement reciprocally. UE AROM WFL but tends to make small movement in elevation vs full ROM. UE strength is 4/5 - Balance Scores Functional Gait Assessment Score: 21 % Disability: 30.0000 CATSIB Score (Max score 120 seconds): 60 - Goals Goal 1:: I with approp machine based LE and postural strength, segmental BIG movements, post LE stretching and balance ex for wellness program via [facility] Goal Time Frame: 6-8 Weeks Goal 2:: Patient exit chair without UE I Goal Time Frame: 4-6 Weeks Goal 3:: 25/30 FGA to diminish fall risk Goal Time Frame: 4-6 Weeks Goal 4:: Steps feel back to baseline as before recent hospital stay, reciprocal and one rail Goal Time Frame: 4-6 Weeks - Rehabilitation Potential Physical Therapy Diagnosis: PD and imbalance Rehabilitation Potential: Fair - Anticipated Interventions Patient/Client Instruction: Educate patient on: Condition, Plan of Care For the Purpose of:: To improve ability of physical actions for home/community/work/leisure, To improve gait and locomotor functions Therapeutic Exercise to Include: Strength training, Balance training, Flexibilty training, Gait and locomotor training, Active ROM For the Purpose of:: To improve ability of physical actions for home/community/work/leisure, To improve gait and locomotor functions, To improve balance, To improve safety with gait Thank you for the opportunity to evaluate your patient. For Medicare and Medicare HMO plans, please review the plan of care and approve it. It will need to be FAXED BACK to us at [phone] for Medicare purposes. Please let me know if there are questions or concerns regarding this plan of care. Physician Signature: Date:
--- NOTE | 2017-10-09 11:28 | HP.PTREVAL ---
KWAN MUELLER, It has been my pleasure to treat KATHARINE WATTS over the last 6 visits for PD and imbalance. Please see the progress note below for an update on the physical therapy plan of care! Subjective: Gotta be getting stronger. At times getting out of chair feels easier. Walking feels pretty good. Did fall two days ago in confined space adn lost balance BW. Didn't hurt anything, contractor helped him up. Wants more therapy to work on functional transfers. Objective/Function: FGA +1(slow progress. Steps require UE as he avoids FW weight shift. Transition out of chair shows good strength but poor FW weight shift requiring VC and causing multiple attempts to be necessary. OVERALL SLOW IMPROVEMENT. gOALS STILL APPROP WITH FAIR PROGNOSIS Plan Plan: 2X/WEEK FOR 4 WEEKS. PLEASE GET TO I WITH MACHINES IN NEXT TWO VISITS AND GILarry ELIST FOR I [facility]. THEN FOCUS ON FW WEIGHT SHIFT FOR CHAIR TRANSITION, STEPS AND TRANSITIOON OFF FLOOR WELL BALANCE CHALLENGES ON FOAM AND FUNCTIONALLY. Goals Goal 1:: I with approp machine based LE and postural strength, segmental BIG movements, post LE stretching and balance ex for wellness program via [employer] Goal Time Frame: 6-8 Weeks Goal Progress: Progressing Goal 2:: Patient exit chair without UE I Goal Time Frame: 4-6 Weeks Goal Progress: NEEDS CUES.MULTI ATTEMPTS Goal 3:: 25/30 FGA to diminish fall risk Goal Time Frame: 4-6 Weeks Goal Progress: Progressing Goal 4:: Steps feel back to baseline as before recent hospital stay, reciprocal and one rail Goal Time Frame: 4-6 Weeks Goal Progress: Progressing Anticipated Interventions Patient/Client Instruction: Educate patient on: Condition, Plan of Care For the Purpose of:: To improve ability of physical actions for home/community/work/leisure, To improve gait and locomotor functions Therapeutic Exercise to Include: Strength training, Balance training, Flexibilty training, Gait and locomotor training, Active ROM For the Purpose of:: To improve ability of physical actions for home/community/work/leisure, To improve gait and locomotor functions, To improve balance, To improve safety with gait Please do not hesitate to contact me at [phone] by phone or if you have questions or concerns regarding this new plan of care! Sincerely, Phani Reagan, DPT, OC
--- NOTE | 2017-11-06 11:06 | HP.PTREVAL_ITS ---
KWAN JOHN, It has been my pleasure to treat KATHARINE WATTS over the last 10 visits for PD and imbalance. Please see the progress note below for an update on the physical therapy plan of care! Subjective: Hospital stay set him back. Had cellulitis last week. Weaker now and worn out easy. Thinks maybe he needs a medication change. Hasn't seen Dr. John in a while or had med change in a while. Feels worn out today after workout. Stretching at home but not strengthening. My needs to get me going. Objective/Function: 5+ attempts needed to stand using UE from chair both transfers today. Once he is standing he does decently well. One LOB today saved by PT necessitating use of walker. FGA same as last time. Steps are reciprocal with two rails. Very flat affect and hunched shoulder posture with very little spinal movement. oVERALL NOT MUCH BETTER THAN LAST RECHECK. THIS COULD BE DUE TO LACK OF VISITS AND HOSPITAL STAY BUT I HAVE RECOMMENEDED MEDICATION CHECK TO PATIENT BASED ON FREEZING SPELLS. hE WISHES TO CONTINUE WITH MACHINE EX HE AWAITS DOCTORS APPOINTMENTS....HE HAS COPIES AND KNOWS WHAT TO DO WITH MACHINE BASED STRENGTHENING. Plan Plan: F/U FOR BALANCE AND TRANSFER CHECK AND EX PROGRESSION IN 3 WEEKS. pT TO CONTACT DOCTOR OFFICE REGARDING POSSIBLE MEDICATION CHECK FOR PARKINSONS. Goals Goal 1:: I with approp machine based LE and postural strength, segmental BIG movements, post LE stretching and balance ex for wellness program via [employer] Goal Time Frame: 6-8 Weeks Goal Progress: Goal Met Goal 2:: Patient exit chair without UE I Goal Time Frame: 4-6 Weeks Goal Progress: Not Progressing Goal 3:: 25/30 FGA to diminish fall risk Goal Time Frame: 4-6 Weeks Goal Progress: Not Progressing Goal 4:: Steps feel back to baseline as before recent hospital stay, reciprocal and one rail Goal Time Frame: 4-6 Weeks Goal Progress: Not Progressing Goal 5:: pT SHOW CONITNUED IMPROVEMENT WITH MOBILITY INCLUDING ONE ATTEMPT TRANSFER TO STAND WITH ANY MEDICATION CHANGE DEEMED APPROP BY DOCTOR AND HIS I GYM WORKOUT. Goal Time Frame: 2-4 Weeks Goal Progress: new goal Anticipated Interventions Patient/Client Instruction: Educate patient on: Condition, Plan of Care For the Purpose of:: To improve ability of physical actions for home/community/ work/leisure, To improve gait and locomotor functions Therapeutic Exercise to Include: Strength training, Balance training, Flexibilty training, Gait and locomotor training, Active ROM For the Purpose of:: To improve ability of physical actions for home/community/ work/leisure, To improve gait and locomotor functions, To improve balance, To improve safety with gait Please do not hesitate to contact me at [phone] by phone or Fax: if you have questions or concerns regarding this new plan of care! Sincerely, hPani Reagan, DPT, OC
--- NOTE | 2018-01-13 11:43 | HP.PTDCNRP_ITS ---
HP - Discharge Summary (1) - Patient Information KATHARINE WATTS was seen in my office for initial evaluation on 09/11/17. The following Plan of Care was established for this patient: Initial Frequency: 2x /Week Initial Duration: 2 Months - Anticipated Interventions Patient/Client Instruction: Educate patient on: Condition, Plan of Care For the Purpose of:: To improve ability of physical actions for home/community/ work/leisure, To improve gait and locomotor functions Therapeutic Exercise to Include: Strength training, Balance training, Flexibilty training, Gait and locomotor training, Active ROM For the Purpose of:: To improve ability of physical actions for home/community/work/leisure, To improve gait and locomotor functions, To improve balance, To improve safety with gait This patient was last seen in our office 11/06/17. Pertinent comments regarding their Physical therapy will appear below: Pt seen for 10 visits gaining I with a workout in the gym. He was to continue I and f/u one month later but cancelled that visit. He said he would reschedule but has neglected to do so. at this point, it has been over a month and I will disocntinue due to nonattendance. At this point I will be discontinuing this patient from physical therapy. I would be happy to see this patient again in the future if found appropriate by the physician. Thank you! Phani Reagan, DPT, OC
== END 2017-11-06 19:00 | disposition home or self-care (01) ==
LOC: PT 10:00
DX: G20 Parkinson's disease (principal); R26.9 Unspecified abnormalities of gait and mobility; R26.89 Other abnormalities of gait and mobility
CPT/HCPCS: 97110; 97163; 97530

== ENCOUNTER 2018-09-23 12:00 | Outpatient (RCR) | payer MEDICARE, OTHER, SELFPAY ==
--- NOTE | 2018-03-06 12:23 | HP.PTEVAL ---
Patient's Visit Information KATHARINE WATTS is a 67 year old M referred to Physical Therapy by Out of Town Doctor with a diagnosis of Short Achilles tendon (aquired) and Parkinsons Disease. Date of Evaluation: 03/06/18 Physical Therapist: BRITTNEY Baldwin - Visit Plan Frequency: 2x /Week Duration: 2 Months Plan: 2X/ week for 4-8 weeks for..... 1.L ankle/calf foam rolling, stretching (achilles), strengthening, gait training. 2.Standing balance and weight shifting to correct that balance, sit to stand transfers, functional training and gait training with some LE strengthening - Subjective Findings: In Feb last year was in hospital for cellulitis in leg and then did rehab. Moved to [place] in single story house. L foot had bothered him since out of rehab. looked on L foot in hospital...was walking to car and heard a snap and ruptured ant tib tendon on the L. [facility] said they were not going to repair with PD and DM. He has some drop foot as well and now has a brace that he wears for life. His achilles has been tight his whole life and he needs to get stretched out on the L achilles. He also has an order for PD. He got his L ankle brace 3 weeks ago... can only wear it now due to adjustments. He has used the Walker since ruptured his L achilles on Nov 11. He does walk without the walker at home when he has things to hold on. His balance is crappy. When he moved in July he had about 6 falls while moving around things. 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 He has bouts of vertigo...not sure if it is from the BP.... the room spins for about 3-4 seconds at a time.... He has some trouble in and out of a chair. He tries not do stairs due to be difficult. Pt has very few freezing movements.. Pt is a alot of PD meds. No Hallucinations with the meds. Not sleeping well, not due to pain - Objective Gait: Walks with a front wheeled walker with L toe touch with L ankle AFO with decreased stride and a lot of leaning fw onto the walker. Sit to stand transfer with UE's: pt is able to ascend 2/6 times and not a smooth motion...he does not get his COG over his toes and has trouble extending his knees and tucking in his buttocks. Standing balance: Poor. He is unable to stand greater than 10-12 seconds before he gets retro LOB and at one pt he went BW into the chair and therapist helped him lower to the chair. L ankle AROM: 7 degrees INV, 10 degrees EV, -40 degrees DF from neutral, PF 70degrees. LE MMT: hip flex B 4-/5, knee ext B 4-/5, knee flex B 4-/5. Turning to get back into the chair...pt walks outside the walker and side sits to get into the chair...not safe. - Goals Goal 1:: I HEP Goal Time Frame: 4-6 Weeks Goal 2:: Be able to stand up Independently for 1 min while performing head movements in // bars with SBA without LOB. Goal Time Frame: 4-6 Weeks Goal 3:: Sit to stand X 5 on first attempt while using UE with SBA Goal Time Frame: 4-6 Weeks Goal 4:: Increase L ankle AROM by 5 degrees DF on the L Goal Time Frame: 4-6 Weeks - Rehabilitation Potential Rehabilitation Potential: Good - Anticipated Interventions Patient/Client Instruction: Educate patient on: Condition, Plan of Care For the Purpose of:: To increase ROM, To improve nutrient delivery to tissue, To improve muscle performance and motor function, To improve ability to perform ADL's, To increase tolerance to activity/condition/position, To improve performance and independence with ADL's, To decrease level of supervision to perform tasks, To improve ability of physical actions for home/community/work/leisure, To improve gait and locomotor functions, To decrease soft tissue restriction, To increase flexibility/ROM, To improve endurance, To improve balance, To improve safety with gait Therapeutic Exercise to Include: Strength training, Endurance training, Balance training, Postural training, Flexibilty training, Gait and locomotor training, Neuromotor development, Passive ROM, Active ROM For the Purpose of:: To increase ROM, To improve nutrient delivery to tissue, To improve muscle performance and motor function, To improve ability to perform ADL's, To increase tolerance to activity/condition/position, To improve performance and independence with ADL's, To decrease level of supervision to perform tasks, To improve ability of physical actions for home/community/work/leisure, To improve gait and locomotor functions, To improve health of tissue, To decrease soft tissue restriction, To increase flexibility/ROM, To improve balance, To improve safety with gait Functional Training to Include: Functional home training, Gait training For the Purpose of:: To improve ability to perform ADL's, To improve balance, To improve safety with gait, To assume or resume ADL's, To improve safety Manual Therapy Techniques to Include: Soft tissue mobilization For the Purpose of:: To increase ROM, To improve nutrient delivery to tissue, To improve muscle performance and motor function, To improve health of tissue, To decrease soft tissue restriction, To increase flexibility/ROM Cryotherapy (ice pack, ice massage): Yes Thermo therapy (hot pack): Yes Ultrasound (thermal/non thermal): Yes For the Purpose of:: To increase ROM, To improve nutrient delivery to tissue, To improve muscle performance and motor function, To increase flexibility/ROM Thank you for the opportunity to evaluate your patient. For Medicare and Medicare HMO plans, please review the plan of care and approve it. It will need to be FAXED BACK to us at [phone] for Medicare purposes. For Medicare only, by signing this I certify the plan of care. Please let me know if there are questions or concerns regarding this plan of care. Physician Signature: Date:
--- NOTE | 2018-04-29 11:30 | HP.PTREVAL_ITS ---
KATHARINE FORTE, It has been my pleasure to treat KATHARINE WATTS over the last 14 visits for Short Achilles tendon (aquired) and Parkinsons Disease. Please see the progress note below for an update on the physical therapy plan of care! Subjective: Pt went to the addiction medicine physician and he thought that his outside tendon was moving a little and thought that he could strengthen it and continue to wear his brace. 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 He sees the orthopedic surgeon today and follow up on his brace and ankle. He feels that he is walking more on his heals now and that he is doing well. Pt feels that he still needs to work on strengthening, balance and strengthening his core to be able to stand up. Pt feels that he has lost a lot of strength in his arms and wants to start strengthening those as well. Objective/Function: Able to sit to stand X 10 but first few attempts pt needed min A and verbal cues to tuck buttocks in and stand up straight and shift weight fw. Extremely tight gastroc B but worse on the L. Some ant tib activation palpated. L ankle AROM: -18 degrees from full extension. + pitting edema B. Pt tends to walk out side his walker and kicks the walker at times. Plan Plan: 2X/ week for 8 weeks for continued stretching of L gastroc and strengthening and ROM of the L foot, sit to stand transfers, static and dynamic standing activities, functional activiites, gait, with HEP Goals Goal 1:: I HEP Goal Time Frame: 4-6 Weeks Goal Progress: Goal Met Goal 2:: Be able to stand up Independently for 1 min while performing head movements in // bars with SBA without LOB. Goal Time Frame: 4-6 Weeks Goal Progress: Progressing Goal 3:: Sit to stand X 10 on first attempt while using UE with SBA Goal Time Frame: 4-6 Weeks Goal Progress: Progressing Goal 4:: Increase L ankle AROM to -5 degrees from neutral Goal Time Frame: 4-6 Weeks Anticipated Interventions Patient/Client Instruction: Educate patient on: Condition, Plan of Care For the Purpose of:: To increase ROM, To improve nutrient delivery to tissue, To improve muscle performance and motor function, To improve ability to perform ADL's, To increase tolerance to activity/condition/position, To improve performance and independence with ADL's, To decrease level of supervision to perform tasks, To improve ability of physical actions for home/comm unity/work/leisure, To improve gait and locomotor functions, To decrease soft tissue restriction, To increase flexibility/ROM, To improve endurance, To improve balance, To improve safety with gait Therapeutic Exercise to Include: Strength training, Endurance training, Balance training, Postural training, Flexibilty training, Gait and locomotor training, Neuromotor development, Passive ROM, Active ROM For the Purpose of:: To increase ROM, To improve nutrient delivery to tissue, To improve muscle performance and motor function, To improve ability to perform ADL's, To increase tolerance to activity/condition/position, To improve performance and independence with ADL's, To decrease level of supervision to perform tasks, To improve ability of physical actions for home/community/work/leisure, To improve gait and locomotor functions, To improve health of tissue, To decrease soft tissue restriction, To increase flexibility/ROM, To improve balance, To improve safety with gait Functional Training to Include: Functional home training, Gait training For the Purpose of:: To improve ability to perform ADL's, To improve balance, To improve safety with gait, To assume or resume ADL's, To improve safety Manual Therapy Techniques to Include: Soft tissue mobilization For the Purpose of:: To increase ROM, To improve nutrient delivery to tissue, To improve muscle performance and motor function, To improve health of tissue, To decrease soft tissue restriction, To increase flexibility/ROM Cryotherapy (ice pack, ice massage): Yes Thermo therapy (hot pack): Yes Ultrasound (thermal/non thermal): Yes For the Purpose of:: To increase ROM, To improve nutrient delivery to tissue, To improve muscle performance and motor function, To increase flexibility/ROM Please do not hesitate to contact me at [phone] by phone or if you have questions or concerns regarding this new plan of care! Sincerely, Kalpana Jade, MPT
--- NOTE | 2018-07-07 11:57 | HP.PTRE(2) ---
KATHARINE FORTE, It has been my pleasure to treat KATHARINE WATTS over the last visits for . Please see the progress note below for an update on the physical therapy plan of care! Anticipated Interventions Please do not hesitate to contact me at [phone] by phone or if you have questions or concerns regarding this new plan of care! Sincerely, Kalpana Jade, MPT
--- NOTE | 2018-08-14 11:14 | HP.PTREVAL_ITS ---
KATHARINE FORTE, It has been my pleasure to treat KATHARINE WATTS over the last 28 visits for Short Achilles tendon (aquired) and Parkinsons Disease. Please see the progress note below for an update on the physical therapy plan of care! Subjective: Pt reports that his balance is horrible. Pt does not feel confident just standing but when he is moving he feels confident. Pt reports no near falls or falls. Pt wants to improve on balance and sit to stands. Objective/Function: At this point in time pt;s standing balance has improved but he is unable to sit to stand due to decreased ability to get his heels to touch the ground. Discussed possible idea of discussing with foot Dr about a wedge to put in shoe so that pt can become more functional with gait and sit to stand transfers etc. Pt signed a release to speak with Dr Tripathi and pt requested at a letter be written to to discuss the possibility if Dr Tripathi feels that this would benefit the pt more? Pt's progress in PT is limited at this time by his tightness in his heel cords. Standing balance has improved. Plan Plan: Continue to work on sit to stand and standing balance. 1X/ week for 4 weeks for continued stretching of L gastroc and strengthening and ROM of the L foot, sit to stand transfers with and without wedge, static and dynamic standing activities, functional activiites, gait, with HEP Goals Goal 1:: I HEP Goal Time Frame: 4-6 Weeks Goal Progress: Goal Met Goal 2:: Be able to stand up Independently for 1.5 seconds with SBA without LOB. Goal Time Frame: 4-6 Weeks Goal Progress: Progressing Goal 3:: Sit to stand X 10 on first attempt while using UE with SBA Goal Time Frame: 4-6 Weeks Goal Progress: Progressing Goal 4:: Increase L ankle AROM to -5 degrees from neutral Goal Time Frame: 4-6 Weeks Anticipated Interventions Patient/Client Instruction: Educate patient on: Condition, Plan of Care For the Purpose of:: To increase ROM, To improve nutrient delivery to tissue, To improve muscle performance and motor function, To improve ability to perform ADL's, To increase tolerance to activity/condition/position, To improve perfor patience and independence with ADL's, To decrease level of supervision to perform tasks, To improve ability of physical actions for home/community/work/leisure, To improve gait and locomotor functions, To decrease soft tissue restriction, To increase flexibility/ROM, To improve endurance, To improve balance, To improve safety with gait Therapeutic Exercise to Include: Strength training, Endurance training, Balance training, Postural training, Flexibilty training, Gait and locomotor training, Neuromotor development, Passive ROM, Active ROM For the Purpose of:: To increase ROM, To improve nutrient delivery to tissue, To improve muscle performance and motor function, To improve ability to perform ADL's, To increase tolerance to activity/condition/position, To improve performance and independence with ADL's, To decrease level of supervision to perform tasks, To improve ability of physical actions for home/community/work/leisure, To improve gait and locomotor functions, To improve health of tissue, To decrease soft tissue restriction, To increase flexibility/ROM, To improve balance, To improve safety with gait Functional Training to Include: Functional home training, Gait training For the Purpose of:: To improve ability to perform ADL's, To improve balance, To improve safety with gait, To assume or resume ADL's, To improve safety Manual Therapy Techniques to Include: Soft tissue mobilization For the Purpose of:: To increase ROM, To improve nutrient delivery to tissue, To improve muscle performance and motor function, To improve health of tissue, To decrease soft tissue restriction, To increase flexibility/ROM Cryotherapy (ice pack, ice massage): Yes Thermo therapy (hot pack): Yes Ultrasound (thermal/non thermal): Yes For the Purpose of:: To increase ROM, To improve nutrient delivery to tissue, To improve muscle performance and motor function, To increase flexibility/ROM Please do not hesitate to contact me at [phone] by phone or if you have questions or concerns regarding this new plan of care! Sincerely, BRITTNEY Baldwin
--- NOTE | 2018-09-23 13:10 | HP.PTREVAL ---
KATHARINE FORTE, It has been my pleasure to treat KATHARINE WATTS over the last 32 visits for Short Achilles tendon (aquired) and Parkinsons Disease. Please see the progress note below for an update on the physical therapy plan of care! Subjective: Pt reports that he is getting up easier since he has the heel lifts in his shoes. Pt reports that last week he had 3 appointments and was able to get out of the chairs and cars.... it was not pretty but he could do it.... Pt reports that the Dr changed his meds and he feels that he is worse in his off times. He just took his med at noon. Objective/Function: Pt unable to sit to stand I today and maintain his balance at all... therapist needed to assist pt to stand for all stands today.... he had to be controlled with tactile cues today to weight shift to control balance. Pt needed max verbal cues to get on/ off the machines for foot placement.... Plan Plan: Continue to work on sit to stand and standing balance for additional. 1X/ week for 4 weeks. Also work on I set up on gym machines for [employer] membership. Also for strengthening and ROM of the L foot, sit to stand transfers with and without wedge, static and dynamic standing activities, functional activiites, gait, with HEP. Goals Goal 1:: I HEP Goal Time Frame: 4-6 Weeks Goal Progress: Goal Met Goal 2:: Be able to stand up Independently for 1.5 seconds with SBA without LOB. Goal Time Frame: 4-6 Weeks Goal Progress: Progressing Goal 3:: Sit to stand X 10 on first attempt while using UE with SBA Goal Time Frame: 4-6 Weeks Goal Progress: Progressing Goal 4:: Increase L ankle AROM to -5 degrees from neutral Goal Time Frame: 4-6 Weeks Goal 5:: Set up I on machines in gym. Goal Time Frame: 4-6 Weeks Anticipated Interventions Patient/Client Instruction: Educate patient on: Condition, Plan of Care For the Purpose of:: To increase ROM, To improve nutrient delivery to tissue, To improve muscle performance and motor function, To improve ability to perform ADL's, To increase tolerance to activity/condition/position, To improve performance and independence with ADL's, To decrease level of supervision to perform tasks, To improve ability of physical actions for home/community/work/leisure, To improve gait and locomotor functions, To decrease soft tissue restriction, To increase flexibility/ROM, To improve endurance, To improve balance, To improve safety with gait Therapeutic Exercise to Include: Strength training, Endurance training, Balance training, Postural training, Flexibilty training, Gait and locomotor training, Neuromotor development, Passive ROM, Active ROM For the Purpose of:: To increase ROM, To improve nutrient delivery to tissue, To improve muscle performance and motor function, To improve ability to perform ADL's, To increase tolerance to activity/condition/position, To improve performance and independence with ADL's, To decrease level of supervision to perform tasks, To improve ability of physical actions for home/community/work/leisure, To improve gait and locomotor functions, To improve health of tissue, To decrease soft tissue restriction, To increase flexibility/ROM, To improve balance, To improve safety with gait Functional Training to Include: Functional home training, Gait training For the Purpose of:: To improve ability to perform ADL's, To improve balance, To improve safety with gait, To assume or resume ADL's, To improve safety Manual Therapy Techniques to Include: Soft tissue mobilization For the Purpose of:: To increase ROM, To improve nutrient delivery to tissue, To improve muscle performance and motor function, To improve health of tissue, To decrease soft tissue restriction, To increase flexibility/ROM Cryotherapy (ice pack, ice massage): Yes Thermo therapy (hot pack): Yes Ultrasound (thermal/non thermal): Yes For the Purpose of:: To increase ROM, To improve nutrient delivery to tissue, To improve muscle performance and motor function, To increase flexibility/ROM Please do not hesitate to contact me at [phone] by phone or if you have questions or concerns regarding this new plan of care! Sincerely, Kalpana Jade, MPT
--- NOTE | 2018-10-27 13:52 | HP.PT.NRP ---
HP - Discharge Summary (1) - Patient Information KATHARINE WATTS was seen in my office for initial evaluation on 03/06/18. The following Plan of Care was established for this patient: Initial Frequency: 2x /Week Initial Duration: 2 Months - Anticipated Interventions Patient/Client Instruction: Educate patient on: Condition, Plan of Care For the Purpose of:: To increase ROM, To improve nutrient delivery to tissue, To improve muscle performance and motor function, To improve ability to perform ADL's, To increase tolerance to activity/condition/position, To improve performance and independence with ADL's, To decrease level of supervision to perform tasks, To improve ability of physical actions for home/community/work/leisure, To improve gait and locomotor functions, To decrease soft tissue restriction, To increase flexibility/ROM, To improve endurance, To improve balance, To improve safety with gait Therapeutic Exercise to Include: Strength training, Endurance training, Balance training, Postural training, Flexibilty training, Gait and locomotor training, Neuromotor development, Passive ROM, Active ROM For the Purpose of:: To increase ROM, To improve nutrient delivery to tissue, To improve muscle performance and motor function, To improve ability to perform ADL's, To increase tolerance to activity/condition/position, To improve performance and independence with ADL's, To decrease level of supervision to perform tasks, To improve ability of physical actions for home/community/work/leisure, To improve gait and locomotor functions, To improve health of tissue, To decrease soft tissue restriction, To increase flexibility/ROM, To improve balance, To improve safety with gait Functional Training to Include: Functional home training, Gait training For the Purpose of:: To improve ability to perform ADL's, To improve balance, To improve safety with gait, To assume or resume ADL's, To improve safety Manual Therapy Techniques to Include: Soft tissue mobilization For the Purpose of:: To increase ROM, To improve nutrient delivery to tissue, To improve muscle performance and motor function, To improve health of tissue, To decrease soft tissue restriction, To increase flexibility/ROM Cryotherapy (ice pack, ice massage): Yes Thermo therapy (hot pack): Yes Ultrasound (thermal/non thermal): Yes For the Purpose of:: To increase ROM, To improve nutrient delivery to tissue, To improve muscle performance and motor function, To increase flexibility/ROM This patient was last seen in our office 09/29/18. Pertinent comments regarding their Physical therapy will appear below: DC PT At this point I will be discontinuing this patient from physical therapy. I would be happy to see this patient again in the future if found appropriate by the physician. Thank you! Kalpana Jade, MPT
== END 2018-09-23 19:00 | disposition home or self-care (01) ==
LOC: PT 12:00
DX: G20 Parkinson's disease (principal); R26.89 Other abnormalities of gait and mobility; M67.02 Short Achilles tendon (acquired), left ankle
CPT/HCPCS: 97110; 97116; 97162; 97530

== ENCOUNTER 2019-04-19 11:31 | Inpatient (IN) | payer MEDICARE, OTHER, SELFPAY ==
[2019-04-19] VITALS (19 sets, daily range): BP systolic 74–135; BP diastolic 33–91; PULSE 102–143; RESP 15–33; TEMP 36.9–38; O2SAT 94–100; BMI 31.5; BMI 30.5
--- NOTE | 2019-04-19 11:54 | EKG12_ITS ---
Test Reason : Blood Pressure : / mmHG Vent. Rate : 132 BPM Atrial Rate : 132 BPM P-R Int : 144 ms QRS Dur : 078 ms QT Int : 292 ms P-R-T Axes : 049 034 068 degrees QTc Int : 432 ms Sinus tachycardia Low voltage QRS (Limb Leads) Confirmed by SALUD GALEAS, MOIZ ([id number]), material expeditor CATHY ORTIZ ([id number]) on 04/21/2019 1:26:53 PM Referred By: PREMA Confirmed By:MOIZ BRANNON MD
[2019-04-19] MEDS: 0.9% Normal Saline 1,000 ML 999 ML IV ×3 (11:58→15:31)
[2019-04-19 12:04] LABS: Absolute Lymphocyte Count 0.39 X10^3/uL (0.83-4.51); Absolute Neutrophil Count 17.6 X10^3/uL (2.0-7.7); Basophil# 0.04 X10^3/uL; Basophil% 0.2 % (0-1); Hemoglobin 16.5 g/dL (13.0-16.5); Lymphocyte # 0.39 X10^3/ul (4.0); Lymphocyte % 2.1 % (19-41); Mean Corpuscular Hgb 30.9 pg (27.0-32.0); Mean Corpuscular Volume 93.6 fL (80-94); Mean Platelet Vol. 10.4 fl (6.2-12.0); Monocyte# 0.76 X10^3/uL; NRBC Flagged by Analyzer 0 % (0-5); Neutrophil # 17.59 X10^3/uL (2.7-7.7); Neutrophil % 92.5 % (47-70); POSITIVE DIFFERENTIAL YES; Platelet Count 238 K/mm3 (150-450); RBC Distribution Width CV 13.3 % (11.6-14.6); RBC Distribution Width SD 45.3 fl (35.1-43.9); Red Blood Count 5.34 M/mm3 (4.6-6.2)
[2019-04-19] MEDS: Acetaminophen 500 MG Tablet 1000 MG PO (12:04)
[2019-04-19] MEDS: Cefazolin 2 GM in 0.9% Normal Saline 100 ML IV ×2 (12:04→21:03)
[2019-04-19 12:05] LABS: Differential Indicated SCAN CRITERIA MET
--- NOTE | 2019-04-19 12:08 | ED.DCSUM_ITS ---
History of Present Illness Chief Complaint: Cellulitis Narrative: Patient presenting due to concern for cellulitis. Patient has had a prior similar history about 2 years ago in the past. Patient has an underlying history of Parkinson's disease. Patient reports that he had a very precipitous onset of a right lower extremity rash consistent with cellulitis. He reports some subjective feelings of fever. Patient denies that he is having any sort of other infectious signs or symptoms such as cough sore throat nausea vomiting abdominal pain dysuria hematuria. Patient denies that there was any sort of skin injuries that might have precipitated this. No exacerbating relieving factors to the patient's symptoms. Past Medical History - Allergies and Home Meds Allergies/Adverse Reactions: Allergies Penicillins [PCN] Allergy (Verified 04/19/19 11:34) Unknown Primary Care Physician: Jaiden Rivera MD [Primary Care Provider] - [facility]: [facility] Surgical History: no surgical history Smoking Status: Never smoker - Family History Maternal Family History: Reports: No pertinent history Review of Systems All systems negative except as indicated General: Reports: Chills, Fever Eyes: Denies: Visual changes - bilaterally, Diplopia ENT: Denies: Rhinorrhea, Sore throat Cardiovascular: Denies: Chest pain, Palpitations Respiratory: Denies: Dyspnea, Cough, Dyspnea on exertion Gastrointestinal: Denies: Abdominal pain, Nausea, Vomiting, Diarrhea, Melena, Hematochezia Genitourinary: Denies: Dysuria, Hematuria, Frequency Musculoskeletal: Denies: Back pain, Extremity Pain Skin: Reports: Rash Neurological: Denies: Headache, Weakness, Numbness Physical Exam Vital Signs/Narrative: Vital Signs Temp Pulse Resp BP Pulse Ox 04/19/19 11:34 99.9 F H 143 H 24 H 135/77 H 97 Inital Vital Signs reviewed: Yes General: Well nourished, Well developed, No Acute Distress Head: Normocephalic, Atraumatic Eyes: Perrl, EOMI ENT: Moist mucous membranes, No rhinorrhea Neck: Supple, Nontender Cardiovascular: Regular rhythm, No murmurs, Tachycardia, - - 2+ radial pulses, 2+ DP pulses bilaterally symmetric Respiratory: No distress, CTA bilaterally, Chest nontender Abdomen: Soft, Nontender, Nondistended, Normal bowel sounds Back: Nontender, Normal Inspection Extremities: Nontender, No edema, - - Erythema noted of the right leg going from the level of the ankle all the way up to the thigh. This is blanching. Minimal tenderness to palpation. No subcutaneous emphysema noted. Skin: Normal color, No rash Neurological: Alert, Oriented x3, Cranial nerves II-XII grossly intact, Normal Strength, Normal Sensation Psychological: Normal affect, Normal Mood Diagnostic/Tx/Re-eval - Medical Decision Making Patient presented secondary to a cellulitis of the right leg. He was tachycardic and febrile, was concern for sepsis. IV was established he was given a liter of saline, Tylenol, Ancef was started empirically. Patient was f ound to have a leukocytosis of 19 and an elevation of his lactic acidosis to 2.5. He was ordered a second liter of normal saline. Patient's blood pressures are soft, but not to the point where he requires pressors at this point. Patient has severe sepsis, and by criteria will be admitted to the intensive care unit. - Critical Care Time Critical care time (excluding procedures): 30-74 minutes ED Disposition - Plan for ED Patient: Disposition: Acute Care Hospital [facility] Diagnosis: Severe sepsis, Cellulitis
[2019-04-19 13:23] LABS: International Normalized Ratio 1.2; Prothrombin Time (Protime)PT. 14.9 SECONDS (11.7-14.9)
[2019-04-19 13:24] LABS: Partial Thromboplast Time 28.4 Seconds (24.1-36.2)
[2019-04-19 13:35] LABS: ALB/GLOB Ratio 0.8 RATIO (0.9-2.4); AST(SGOT) 14 U/L (15-37); Alanine Aminotransfer ALT/SGPT < 6 U/L (16-61); Albumin, Serum 3.1 g/dL (3.2-5.0); Alkaline Phosphatase 82 U/L (45-117); Anion Gap 6 (5-15); BUN 13 mg/dL (7-18); BUN/Creat Ratio 9.4 RATIO (10-20); CPK Total, Creatine Kinase 52 U/L (39-308); Calcium,Total 8.8 mg/dL (8.5-10.1); Chloride 106 mmol/L (98-107); Creatinine, Serum 1.39 mg/dL (0.70-1.30); EST Glomerular Filtration Rate 54 mL/min (>60); Est Glom Filt Rate - Afr Amer 65 mL/min (>60); Estimated Creatinine Clearance 47.84 ml/min; Globulin 4.1 g/dL (2.2-4.2); Glucose 102 mg/dL (74-106); Potassium 4.6 mmol/L (3.5-5.1); Protein, Total 7.2 g/dL (6.4-8.2); Sodium Level 136 mmol/L (136-145)
[2019-04-19 13:43] LABS: Lactic Acid 2.5 mmol/L (0.4-1.9)
--- NOTE | 2019-04-19 13:47 | ED.RN ---
notified Dr. Chowdhury of lactic acid 2.5. going home to get Rytary med- [facility] inpatient pharmacy does not carry. pt eating sandwich and has soda.
[2019-04-19] MEDS: Amantadine 100 MG Capsule PO (14:10)
--- NOTE | 2019-04-19 14:26 | ED.RN ---
called report to Marina in ICU.
--- NOTE | 2019-04-19 15:10 | PCM.HP.STD ---
<Daisy No - Last Filed: 04/19/19 15:53> Problem List (1) Severe sepsis Status: Acute (2) Parkinson disease Status: Chronic (3) Cellulitis Status: Acute (4) DMII (diabetes mellitus, type 2) Status: Chronic (5) HTN (hypertension) Status: Chronic (6) HLD (hyperlipidemia) Status: Chronic (7) BPH (benign prostatic hyperplasia) Status: Chronic History of Present Illness Date of Admission: 04/19/19 Chief Complaint: Right lower extremity cellulitis. The patient is a 68 year old M who presents to the emergency room due to right lower extremity redness. Patient reports sudden onset of right lower extremity redness involving his ankle up to his knee. Patient reports he fell and scuffed his right knee a few weeks ago. Denies other injury or wounds. Denies fever, chills prior to admission. Denies nausea, vomiting. Denies significant pain right lower extremity. Patient has had similar presentation in 2018 with sepsis related to right leg cellulitis. He has a past medical history of chronic kidney disease stage III, Parkinson's disease, type 2 diabetes mellitus, hypertension, hyperlipidemia, BPH. Past Medical History Past Medical History (Chronic Problems): Chronic Problems HTN (hypertension) (Chronic) HLD (hyperlipidemia) (Chronic) BPH (benign prostatic hyperplasia) (Chronic) Parkinson disease (Chronic) DMII (diabetes mellitus, type 2) (Chronic) Allergies Penicillins [PCN] Allergy (Verified 04/19/19 11:34) Unknown tetanus and diphtheria toxoids Allergy (Verified 04/19/19 14:22) Unknown Home Medications: Ambulatory Orders Medication Instructions Recorded Amantadine [Symmetrel] 100 mg PO BID 10/24/17 Aspirin E.C. [Ecotrin] 81 mg PO QHS 10/24/17 Lisinopril [Zestril] 10 mg PO DAILY 10/24/17 Pravastatin Sodium [Pravachol] 20 mg PO QHS 10/24/17 Rasagiline Mesylate [Azilect] 1 tab PO DAILY 10/24/17 Senna [Senokot] 1 tablet PO BID 10/24/17 Tamsulosin HCl [Flomax] 0.4 mg PO DAILY 10/24/17 metFORMIN HCl [Glucophage] 500 mg PO BIDCM 10/24/17 Carbidopa/Levodopa [Carbidopa-Levo 1 tab PO QHS 04/19/19 ER 50-200 Tab] Carbidopa/Levodopa [Rytary ER 3 cap PO TID 04/19/19 36.25 mg-145 mg Cap] Surgical History: no surgical history Psychiatric History: No pertinent psych hx Lives: Spouse/ Significant Other Smoking Status: Never smoker Tobacco Use: Non-smoker Alcohol: None Drugs: None - *Family History Maternal History Items: - - Denies known paternal medical history including cardiac history. Paternal History Items: - - Denies known paternal medical history including cardiac history. Review of Systems Constitutional: Denies: Chills, Fever, Malaise HEENT: Denies: Head Aches, Sinus Congestion, Sinus Drainage Cardiovascular: Denies: Chest Pain, Palpitations Respiratory: Denies: Cough, Shortness of breath at rest, Sputum production Gastrointestinal: Denies: Abdominal Pain, Nausea, Vomiting Genitourinary: Denies: Dysuria Musculoskeletal: Denies: Joint Pain, Joint Tenderness Skin: Reports: - - Right lower extremity redness, small abrasion right knee-scabbed Neurological: Denies: Numbness, Tingling, Focal weakness Psychiatric: Denies: Anxiety, Depression, Homicidal Ideations, Suicidal Ideations Hematologic/ Lymphatic: Denies: Easy Bruising, Easy Bleeding VTE Information - Inpt Only VTE Present on Admission: No VTE Mechan Device Prophylaxis: None VTE Pharm Prophylaxis ordered?: Yes Patient Problems: Active and Suspected Problems Severe sepsis (Acute) Cellulitis (Acute) - Physical Exam Vitals/I&O's: Vital Signs Temp Pulse Resp BP Pulse Ox 100.4 F H 115 H 18 91/55 L 96 04/19/19 13:35 04/19/19 14:31 04/19/19 14:00 04/19/19 14:31 04/19/19 14:00 Oxygen Delivery Method Room Air Weight: 201 lb 0.985 oz Body Mass Index (BMI) 30.5 Intake and Output for Last 24 Hours 04/17/19 04/18/19 04/19/19 23:59 23:59 23:59 Intake Total 1110 / 1110 Balance 1110 / 1110 General: Alert, Oriented x3, Cooperative HEENT: Atraumatic, PERRLA, EOMI, Normocephalic Neck: Supple, No JVD, Negative Carotid Bruits Lungs: Clear to auscultation, Normal air movement Cardiovascular: Regular Rhythm, Normal S1, Normal S2, No murmurs, Tachycardic Abdomen: Bowel Sounds Present, Soft, Non Tender, Non-Distended Extremities: No clubbing, No cyanosis, Capillary Refill Less than 3 Seconds, Edema - Right lower extremity Skin: - - Diffuse right lower extremity redness and warmth, small scabbed abrasion right knee. Musculoskeletal: No Tenderness to Palpation of Joints or Extremities Neurological: Cranial nerves II-XII grossly intact, Neuro grossly intact Psych/Mental Status: Normal Affect, Appropriate Laboratory Results 04/19/19 11:40: Sodium Cancelled, Potassium Cancelled, Chloride Cancelled, Carbon Dioxide Cancelled, Anion Gap Cancelled, BUN Cancelled, Creatinine Cancelled, Estim Creat Clear Calc Cancelled, Est GFR (MDRD) Af Amer Cancelled, Est GFR (MDRD) Non-Af Cancelled, BUN/Creatinine Ratio Cancelled, Glucose Cancelled, Calcium Cancelled, Total Bilirubin Cancelled, AST Cancelled, ALT Cancelled, Alkaline Phosphatase Cancelled, Total Creatine Kinase Cancelled, Total Protein Cancelled, Albumin Cancelled, Globulin Cancelled, Albumin/Globulin Ratio Cancelled 04/19/19 11:40: WBC 19.0 H, RBC 5.34, Hgb 16.5, Hct 50.0, MCV 93.6, MCH 30.9, MCHC 33.0, RDW Std Deviation 45.3 H, RDW Coeff of Lexii 13.3, Plt Count 238, MPV 10.4, Immature Gran % (Auto) 1.200 H, Neut % (Auto) 92.5 H, Lymph % (Auto) 2.1 L, Garza % (Auto) 4.0, Eos % (Auto) 0.0, Baso % (Auto) 0.2, Absolute Neuts (auto) 17.6 H, Absolute Lymphs (auto) 0.39 L, Nucleated RBC % 0, Differential Comment COMMENT 04/19/19 11:40: PT Cancelled, INR Cancelled, APTT Cancelled 04/19/19 11:40: Lactic Acid Cancelled 04/19/19 12:15: Lactic Acid Cancelled 04/19/19 12:15: PT Cancelled, INR Cancelled, APTT Cancelled 04/19/19 12:15: Sodium Cancelled, Potassium Cancelled, Chloride Cancelled, Carbon Dioxide Cancelled, Anion Gap Cancelled, BUN Cancelled, Creatinine Cancelled, Estim Creat Clear Calc Cancelled, Est GFR (MDRD) Af Amer Cancelled, Est GFR (MDRD) Non-Af Cancelled, BUN/Creatinine Ratio Cancelled, Glucose Cancelled, Calcium Cancelled, Total Bilirubin Cancelled, AST Cancelled, ALT Cancelled, Alkaline Phosphatase Cancelled, Total Creatine Kinase Cancelled, Total Protein Cancelled, Albumin Cancelled, Globulin Cancelled, Albumin/Globulin Ratio Cancelled 04/19/19 13:00: PT 14.9, INR 1.2, APTT 28.4 04/19/19 13:00: Lactic Acid 2.5 H* 04/19/19 13:00: Sodium 136, Potassium 4.6, Chloride 106, Carbon Dioxide 24.0, Anion Gap 6, BUN 13, Creatinine 1.39 H, Estim Creat Clear Calc 47.84, Est GFR (MDRD) Af Amer 65, Est GFR (MDRD) Non-Af 54 L, BUN/Creatinine Ratio 9.4 L, Glucose 102, Calcium 8.8, Total Bilirubin 0.80, AST 14 L, ALT < 6 L, Alkaline Phosphatase 82, Total Creatine Kinase 52, Total Protein 7.2, Albumin 3.1 L, Globulin 4.1, Albumin/Globulin Ratio 0.8 L Current Medications Acetaminophen (Tylenol) 650 mg PO Q6H PRN PRN PRN Reason: Pain Score 1-10/Temp > 100.7 F Enoxaparin Sodium (Lovenox) 40 mg SC DAILY [facility] Glucagon () 1 mg IM .X1 PRN PRN Reason: Hypoglycemia Sodium Chloride () 1,000 mls @ 100 mls/hr IV .Q10H [facility] Cefazolin Sodium 2 gm/ Sodium (Chloride) 110 mls @ 150 mls/hr IV Q8 [facility] Dextrose (Dextrose 10%-Water) 250 mls @ 999 mls/hr IV .Q16M PRN; Protocol PRN Reason: HYPOGLYCEMIA Influenza Virus Vaccine Quadrival (Flucelvax /Fluzone 5815-1054) 0.5 ml IM .ONCE ONE Stop: 04/20/19 10:01 Insulin Human Lispro (Humalog Kwikpen (Bkc)) 0 unit SC ACHS [facility]; Protocol Sodium Chloride () 10 - 40 ml IV UD PRN PRN Reason: SALINE FLUSH Assessment/Plan All Active Problems Severe sepsis (Acute) Cellulitis (Acute) 1. Severe sepsis secondary to acute right lower extremity cellulitis- WBC 19, lactic acid 2.5, temp 100.4, tachycardic. Blood cultures pending. Fluids per severe sepsis protocol. IV cefazolin. 2. Chronic kidney disease stage III-based on prior lab. Trend BMP. 3. Parkinson's disease-on Symmetrel, carbidopa/levodopa, Azilect. PT/OT. 4. Type 2 diabetes mellitus-hold metformin regimen. Accu-Cheks with sliding scale insulin. 5. Hypertension-patient on lisinopril. Hold BP regimen given hypotension. 6. Hyperlipidemia-continue statin. 7. BPH-continue Flomax regimen. DVT prophylaxis- Lovenox sc This patient was seen by BRONSON Lopez under the supervision of Dr. Bang. <Jose Luis Bang F - Last Filed: 04/19/19 16:36> History of Present Illness The patient is a 68 year old M [] Past Medical History Allergies Penicillins [PCN] Allergy (Verified 04/19/19 11:34) Unknown tetanus and diphtheria toxoids Allergy (Verified 04/19/19 14:22) Unknown - Physical Exam Vitals/I&O's: Vital Signs Temp Pulse Resp BP Pulse Ox 98.4 F 108 H 18 87/33 L 98 04/19/19 15:30 04/19/19 16:00 04/19/19 16:00 04/19/19 16:00 04/19/19 16:00 Oxygen Delivery Method Room Air Weight: 201 lb 0.985 oz Body Mass Index (BMI) 30.5 Intake and Output for Last 24 Hours 04/17/19 04/18/19 04/19/19 23:59 23:59 23:59 Intake Total 2109 Balance 2109 Laboratory Results 04/19/19 11:40: Sodium Cancelled, Potassium Cancelled, Chloride Cancelled, Carbon Dioxide Cancelled, Anion Gap Cancelled, BUN Cancelled, Creatinine Cancelled, Estim Creat Clear Calc Cancelled, Est GFR (MDRD) Af Amer Cancelled, Est GFR (MDRD) Non-Af Cancelled, BUN/Creatinine Ratio Cancelled, Glucose Cancelled, Calcium Cancelled, Total Bilirubin Cancelled, AST Cancelled, ALT Cancelled, Alkaline Phosphatase Cancelled, Total Creatine Kinase Cancelled, Total Protein Cancelled, Albumin Cancelled, Globulin Cancelled, Albumin/Globulin Ratio Cancelled 04/19/19 11:40: WBC 19.0 H, RBC 5.34, Hgb 16.5, Hct 50.0, MCV 93.6, MCH 30.9, MCHC 33.0, RDW Std Deviation 45.3 H, RDW Coeff of Lexii 13.3, Plt Count 238, MPV 10.4, Immature Gran % (Auto) 1.200 H, Neut % (Auto) 92.5 H, Lymph % (Auto) 2.1 L, Garza % (Auto) 4.0, Eos % (Auto) 0.0, Baso % (Auto) 0.2, Absolute Neuts (auto) 17.6 H, Absolute Lymphs (auto) 0.39 L, Nucleated RBC % 0, Differential Comment COMMENT 04/19/19 11:40: PT Cancelled, INR Cancelled, APTT Cancelled 04/19/19 11:40: Lactic Acid Cancelled 04/19/19 12:15: Lactic Acid Cancelled 04/19/19 12:15: PT Cancelled, INR Cancelled, APTT Cancelled 04/19/19 12:15: Sodium Cancelled, Potassium Cancelled, Chloride Cancelled, Carbon Dioxide Cancelled, Anion Gap Cancelled, BUN Cancelled, Creatinine Cancelled, Estim Creat Clear Calc Cancelled, Est GFR (MDRD) Af Amer Cancelled, Est GFR (MDRD) Non-Af Cancelled, BUN/Creatinine Ratio Cancelled, Glucose Cancelled, Calcium Cancelled, Total Bilirubin Cancelled, AST Cancelled, ALT Cancelled, Alkaline Phosphatase Cancelled, Total Creatine Kinase Cancelled, Total Protein Cancelled, Albumin Cancelled, Globulin Cancelled, Albumin/Globulin Ratio Cancelled 04/19/19 13:00: PT 14.9, INR 1.2, APTT 28.4 04/19/19 13:00: Lactic Acid 2.5 H* 04/19/19 13:00: Sodium 136, Potassium 4.6, Chloride 106, Carbon Dioxide 24.0, Anion Gap 6, BUN 13, Creatinine 1.39 H, Estim Creat Clear Calc 47.84, Est GFR (MDRD) Af Amer 65, Est GFR (MDRD) Non-Af 54 L, BUN/Creatinine Ratio 9.4 L, Glucose 102, Calcium 8.8, Total Bilirubin 0.80, AST 14 L, ALT < 6 L, Alkaline Phosphatase 82, Total Creatine Kinase 52, Total Protein 7.2, Albumin 3.1 L, Globulin 4.1, Albumin/Globulin Ratio 0.8 L 04/19/19 15:35: POC Glucose 99 Current Medications Acetaminophen (Tylenol) 650 mg PO Q6H PRN PRN PRN Reason: Pain Score 1-10/Temp > 100.7 F Aspirin (Ecotrin) 81 mg PO QHS [facility] Carbidopa/Levodopa (Sinemet Cr) tablet PO QHS [facility] Enoxaparin Sodium (Lovenox) 40 mg SC DAILY [facility] Glucagon () 1 mg IM .X1 PRN PRN Reason: Hypoglycemia Sodium Chloride () 1,000 mls @ 100 mls/hr IV .Q10H [facility] Cefazolin Sodium 2 gm/ Sodium (Chloride) 110 mls @ 150 mls/hr IV Q8 [facility] Dextrose (Dextrose 10%-Water) 250 mls @ 999 mls/hr IV .Q16M PRN; Protocol PRN Reason: HYPOGLYCEMIA Influenza Virus Vaccine Quadrival (Flucelvax /Fluzone ) 0.5 ml IM .ONCE ONE Stop: 04/20/19 10:01 Insulin Human Lispro (Humalog Kwikpen (Bkc)) 0 unit SC ACHS [facility]; Protocol Last Admin: 04/19/19 15:53 Dose: Not Given Documented by: Nutritional Formula (Lactose Free) (Glucerna Shake) 120 ml PO 4X/DAY [facility] Pravastatin Sodium (Pravachol) 20 mg PO QHS [facility] Rasagiline (Azilect) mg PO DAILY [facility] Senna (Senokot) 1 tablet PO BID [facility] Sodium Chloride () 10 - 40 ml IV UD PRN PRN Reason: SALINE FLUSH Tamsulosin HCl (Flomax) 0.4 mg PO DAILY@0830 [facility] Code Visit Addendum: Dr. Bang I personally examined the patient and reviewed the chart. I agree with the above. 68-year-old male with history of Parkinson's and diabetes presents with right lower extremity cellulitis and severe sepsis based on criteria. He had at least 2 out of 4 Sirs criteria plus the source of infection and a lactic acid of 2.5. He was given a total of 3 L of IV fluid between the ER in the ICU and was started on a maintenance fluid as well. He is allergic to penicillin however on his previous admission for cellulitis he did improve with Ancef therefore this antibiotic was chosen and continued. In the meantime will hold his home blood pressure medications and will continue with his Parkinson medications. He has some chills today with his right lower extremity redness and that is why he came in, otherwise he says that he feels fine. Has not had any loss of appetite or decrease in p.o. intake. Inpatient E&M: 38832 Init Hosp L3
[2019-04-19 15:41] LABS: Bedside Glucose 99 mg/dL (70-110)
[2019-04-19] MEDS: 0.9% Normal Saline 1,000 ML 100 ML IV (16:35)
[2019-04-19 17:08] LABS: Reflex Lactate? Y
[2019-04-19] MEDS: Glucerna Shake 120 ML LIQUID PO (17:44)
[2019-04-19] MEDS: CARBIDOPA/LEVODOPA 1 EACH CAPSULE.ER 3 EACH PO (17:45)
[2019-04-19 19:41] LABS: Lactic Acid 2.8 mmol/L (0.4-1.9)
[2019-04-19] MEDS: CARBIDOPA/LEVODOPA CR 50/200 Tablet PO (20:27)
[2019-04-19] MEDS: Senna Tablet 1 TABLET PO (20:27)
[2019-04-19] MEDS: Pravastatin 20 MG Tablet PO (20:27)
[2019-04-19] MEDS: Aspirin E.C. 81 MG Tablet PO (20:27)
[2019-04-19 20:35] LABS: Bedside Glucose 115 mg/dL (70-110)
[2019-04-20] VITALS (27 sets, daily range): BP systolic 99–127; BP diastolic 42–80; PULSE 84–112; RESP 15–33; TEMP 37.1–38.3; O2SAT 93–100
[2019-04-20] MEDS: 0.9% Normal Saline 1,000 ML 100 ML IV ×2 (02:06→13:36)
[2019-04-20 04:11] LABS: Absolute Lymphocyte Count 0.98 X10^3/uL (0.83-4.51); Absolute Neutrophil Count 15.7 X10^3/uL (2.0-7.7); Basophil# 0.06 X10^3/uL; Basophil% 0.3 % (0-1); Hematocrit 43.1 % (40-54); Hemoglobin 14.1 g/dL (13.0-16.5); Lymphocyte # 0.98 X10^3/ul (4.0); Lymphocyte % 5.5 % (19-41); Mean Corp Hgb Conc 32.7 g/dL (32-36); Mean Corpuscular Hgb 30.4 pg (27.0-32.0); Mean Corpuscular Volume 92.9 fL (80-94); Mean Platelet Vol. 10.6 fl (6.2-12.0); Monocyte% 4.5 % (0-10); NRBC Flagged by Analyzer 0 % (0-5); Neutrophil # 15.74 X10^3/uL (2.7-7.7); Neutrophil % 89.1 % (47-70); Platelet Count 210 K/mm3 (150-450); RBC Distribution Width SD 46.9 fl (35.1-43.9); Red Blood Count 4.64 M/mm3 (4.6-6.2); White Blood Count 17.7 K/mm3 (4.4-11.0)
[2019-04-20 04:12] LABS: Anion Gap 7 (5-15); BUN 14 mg/dL (7-18); BUN/Creat Ratio 10.9 RATIO (10-20); Calcium,Total 8.2 mg/dL (8.5-10.1); Chloride 107 mmol/L (98-107); Creatinine, Serum 1.29 mg/dL (0.70-1.30); EST Glomerular Filtration Rate 59 mL/min (>60); Est Glom Filt Rate - Afr Amer 71 mL/min (>60); Estimated Creatinine Clearance 51.55 ml/min; Glucose 95 mg/dL (74-106); Potassium 4.5 mmol/L (3.5-5.1); Sodium Level 137 mmol/L (136-145)
[2019-04-20] MEDS: Cefazolin 2 GM in 0.9% Normal Saline 100 ML IV ×3 (06:24→21:01)
[2019-04-20 06:35] LABS: Bedside Glucose 104 mg/dL (70-110)
--- NOTE | 2019-04-20 07:10 | PCM.CON.CC ---
Problem List (1) Severe sepsis Status: Acute (2) HTN (hypertension) Status: Chronic Qualifiers: Hypertension type: essential hypertension Qualified Code(s): I10 - Essential (primary) hypertension (3) HLD (hyperlipidemia) Status: Chronic (4) BPH (benign prostatic hyperplasia) Status: Chronic (5) Parkinson disease Status: Chronic (6) Cellulitis Status: Acute (7) DMII (diabetes mellitus, type 2) Status: Chronic Reason for Consult Date of Consultation: 04/20/19 Reason for Consultation: Severe sepsis History of Present Illness: The patient is a 68 year old M with past medical history listed below, who presented to [facility] on 04/19/2019 secondary to concerns for right lower extremity cellulitis. Patient reportedly had a similar type of presentation 2 years ago. Patient states that he had a very abrupt onset of right lower extremity rash with subjective feelings of fever. Patient did not report any other constitutional symptoms such as cough, nausea, vomiting, abdominal pain, dysuria, sinus congestion or dizziness. Patient did not report any trauma to this extremity. Patient did not try to address symptoms with any [id number] medications. In the ER, patient was noted to be tachycardic and febrile. Patient had an IV access and was started on Ancef empirically. Patient was found to have a leukocytosis of 19 and an elevated lactate. Patient was given 30 cc/kg of normal saline. Patient did have some marginal blood pressures, but did not require pressor therapy. Patient was admitted to the intensive care unit for further monitoring overnight. In the intensive care unit, patient did have some marginal blood pressures. Area of cellulitis was demarcated upon arrival. Overnight, patient did report difficulty with waking up several times, but otherwise feels subjectively improved compared to previous. Patient continues to report some pain at the right lower extremity, but feels this is improved. Patient also reported subjective fevers overnight. Patient does report a history of obstructive sleep apnea in the past, but was noncompliant with therapy. Patient was unaware of his previous settings. Patient does report he had a 60 pound weight loss since his diagnosis of obstructive sleep apnea and his states that there is no more snoring. Patient denies any dysuria or other complications. Patient does suffer from Parkinson's disease, but denies any recent falls. Review of systems otherwise negative from a constitutional, HEENT, respiratory, cardiovascular, GI, genitourinary, musculoskeletal, skin, neurologic, psychiatric and hematologic system unless stated above. Past Medical History Past Medical History (Chronic Problems): Chronic Problems HTN (hypertension) (Chronic) HLD (hyperlipidemia) (Chronic) BPH (benign prostatic hyperplasia) (Chronic) Parkinson disease (Chronic) DMII (diabetes mellitus, type 2) (Chronic) Allergies Penicillins [PCN] Allergy (Verified 04/19/19 11:34) Unknown tetanus and diphtheria toxoids Allergy (Verified 04/19/19 14:22) Unknown Home Medications: Ambulatory Orders Medication Instructions Recorded Amantadine [Symmetrel] 100 mg PO BID 10/24/17 Aspirin E.C. [Ecotrin] 81 mg PO QHS 10/24/17 Lisinopril [Zestril] 10 mg PO DAILY 10/24/17 Pravastatin Sodium [Pravachol] 20 mg PO QHS 10/24/17 Rasagiline Mesylate [Azilect] 1 tab PO DAILY 10/24/17 Senna [Senokot] 1 tablet PO BID 10/24/17 Tamsulosin HCl [Flomax] 0.4 mg PO DAILY 10/24/17 metFORMIN HCl [Glucophage] 500 mg PO BIDCM 10/24/17 Carbidopa/Levodopa [Carbidopa-Levo 1 tab PO QHS 04/19/19 ER 50-200 Tab] Carbidopa/Levodopa [Rytary ER 3 cap PO TID 04/19/19 36.25 mg-145 mg Cap] Surgical History: no surgical history Psychiatric History: No pertinent psych hx Lives: Spouse/ Significant Other Smoking Status: Never smoker Tobacco Use: Non-smoker Alcohol: None Drugs: None - *Family History Maternal History Items: - - Denies known paternal medical history including cardiac history. Paternal History Items: - - Denies known paternal medical history including cardiac history. Review of Systems Comment: See HPI Patient Problems: Active and Suspected Problems Severe sepsis (Acute) Cellulitis (Acute) - Physical Exam Vitals/I&O's: Vital Signs Temp Pulse Resp BP Pulse Ox 37.6 C H 102 H 32 H 103/52 L 95 04/20/19 04:00 04/20/19 06:00 04/20/19 06:00 04/20/19 06:00 04/20/19 06:00 Oxygen Delivery Method Room Air Weight: 93.6 kg Body Mass Index (BMI) 30.5 Intake and Output for Last 24 Hours 04/18/19 04/19/19 04/20/19 23:59 23:59 23:59 Intake Total 4296.67 / 4296.67 1013.34 / 1013.34 Output Total 375 / 375 150 / 150 Balance 3921.67 / 3921.67 863.34 / 863.34 General: Alert, Oriented x3, Cooperative, No apparent distress, - - Masked faces. No conversational dyspnea HEENT: Atraumatic, PERRLA, EOMI, Normocephalic Oral: Moist Mucosa, No Gingival or Mucosal Lesions/ Ulcerations, - - Crowded posterior pharynx Neck: Supple, No JVD, No Nodes, Trachea Midline Lungs: Clear to auscultation, Normal air movement, No rhonchi, No wheeze, No rales, - - Symmetric expansion. No dullness to percussion. Cardiovascular: Normal S1, Normal S2, No murmurs, No rub noted, No Gallop, Tachycardic, - - Sinus tachycardia on telemetry Abdomen: Bowel Sounds Present, Soft, Non Tender, Non-Distended Extremities: No clubbing, No cyanosis, Edema - Right lower extremity, Tenderness Skin: Rash Present - Right lower extremity with significant extension beyond previous demarcated borders, - - No hives noted. Musculoskeletal: No Tenderness to Palpation of Joints or Extremities Lymphatic: No Cervical, Supraclavicular, or Inguinal Adenopathy Neurological: Cranial nerves II-XII grossly intact, Neuro grossly intact, Motor Exam 5/5 strength throughout Psych/Mental Status: Appropriate, Flat Affect Laboratory Results 04/19/19 11:40: Sodium Cancelled, Potassium Cancelled, Chloride Cancelled, Carbon Dioxide Cancelled, Anion Gap Cancelled, BUN Cancelled, Creatinine Cancelled, Estim Creat Clear Calc Cancelled, Est GFR (MDRD) Af Amer Cancelled, Est GFR (MDRD) Non-Af Cancelled, BUN/Creatinine Ratio Cancelled, Glucose Cancelled, Calcium Cancelled, Total Bilirubin Cancelled, AST Cancelled, ALT Cancelled, Alkaline Phosphatase Cancelled, Total Creatine Kinase Cancelled, Total Protein Cancelled, Albumin Cancelled, Globulin Cancelled, Albumin/Globulin Ratio Cancelled 04/19/19 11:40: WBC 19.0 H, RBC 5.34, Hgb 16.5, Hct 50.0, MCV 93.6, MCH 30.9, MCHC 33.0, RDW Std Deviation 45.3 H, RDW Coeff of Lexii 13.3, Plt Count 238, MPV 10.4, Immature Gran % (Auto) 1.200 H, Neut % (Auto) 92.5 H, Lymph % (Auto) 2.1 L, [place] % (Auto) 4.0, Eos % (Auto) 0.0, Baso % (Auto) 0.2, Absolute Neuts (auto) 17.6 H, Absolute Lymphs (auto) 0.39 L, Nucleated RBC % 0, Differential Comment COMMENT 04/19/19 11:40: PT Cancelled, INR Cancelled, APTT Cancelled 04/19/19 11:40: Lactic Acid Cancelled 04/19/19 12:15: Lactic Acid Cancelled 04/19/19 12:15: PT Cancelled, INR Cancelled, APTT Cancelled 04/19/19 12:15: Sodium Cancelled, Potassium Cancelled, Chloride Cancelled, Carbon Dioxide Cancelled, Anion Gap Cancelled, BUN Cancelled, Creatinine Cancelled, Estim Creat Clear Calc Cancelled, Est GFR (MDRD) Af Amer Cancelled, Est GFR (MDRD) Non-Af Cancelled, BUN/Creatinine Ratio Cancelled, Glucose Cancelled, Calcium Cancelled, Total Bilirubin Cancelled, AST Cancelled, ALT Cancelled, Alkaline Phosphatase Cancelled, Total Creatine Kinase Cancelled, Total Protein Cancelled, Albumin Cancelled, Globulin Cancelled, Albumin/Globulin Ratio Cancelled 04/19/19 13:00: PT 14.9, INR 1.2, APTT 28.4 04/19/19 13:00: Lactic Acid 2.5 H* 04/19/19 13:00: Sodium 136, Potassium 4.6, Chloride 106, Carbon Dioxide 24.0, Anion Gap 6, BUN 13, Creatinine 1.39 H, Estim Creat Clear Calc 47.84, Est GFR (MDRD) Af Amer 65, Est GFR (MDRD) Non-Af 54 L, BUN/Creatinine Ratio 9.4 L, Glucose 102, Calcium 8.8, Total Bilirubin 0.80, AST 14 L, ALT < 6 L, Alkaline Phosphatase 82, Total Creatine Kinase 52, Total Protein 7.2, Albumin 3.1 L, Globulin 4.1, Albumin/Globulin Ratio 0.8 L 04/19/19 15:35: POC Glucose 99 04/19/19 17:45: Lactic Acid Cancelled 04/19/19 18:48: Lactic Acid 2.8 H* 04/19/19 20:30: POC Glucose 115 H 04/20/19 03:50: WBC 17.7 H, RBC 4.64, Hgb 14.1, Hct 43.1, MCV 92.9, MCH 30.4, MCHC 32.7, RDW Std Deviation 46.9 H, RDW Coeff of Lexii 14.0, Plt Count 210, MPV 10.6, Immature Gran % (Auto) 0.600, Neut % (Auto) 89.1 H, Lymph % (Auto) 5.5 L, [place] % (Auto) 4.5, Eos % (Auto) 0.0, Baso % (Auto) 0.3, Absolute Neuts (auto) 15.7 H, Absolute Lymphs (auto) 0.98, Nucleated RBC % 0 04/20/19 03:50: Sodium 137, Potassium 4.5, Chloride 107, Carbon Dioxide 23.0, Anion Gap 7, BUN 14, Creatinine 1.29, Estim Creat Clear Calc 51.55, Est GFR (MDRD) Af Amer 71, Est GFR (MDRD) Non-Af 59 L, BUN/Creatinine Ratio 10.9, Glucose 95, Calcium 8.2 L 04/20/19 06:29: POC Glucose 104 Current Medications Acetaminophen (Tylenol) 650 mg PO Q6H PRN PRN PRN Reason: Pain Score 1-10/Temp > 100.7 F Aspirin (Ecotrin) 81 mg PO QHS [facility] Last Admin: 04/19/19 20:27 Dose: 81 mg Documented by: Carbidopa/Levodopa (Sinemet Cr) 1 tablet PO QHS [facility] Last Admin: 04/19/19 20:27 Dose: 1 tablet Documented by: Carbidopa/Levodopa (Rytary Er 36.25 Mg-145 Mg Cap) 3 each PO 0800,1300,1800 [facility] Last Admin: 04/19/19 17:45 Dose: 3 each Documented by: Enoxaparin Sodium (Lovenox) 40 mg SC DAILY [facility] Glucagon () 1 mg IM .X1 PRN PRN Reason: Hypoglycemia Sodium Chloride () 1,000 mls @ 100 mls/hr IV .Q10H [facility] Last Infusion: 04/20/19 06:25 Dose: 0 mls/hr Documented by: Cefazolin Sodium 2 gm/ Sodium (Chloride) 110 mls @ 150 mls/hr IV Q8 [facility] Last Admin: 04/20/19 06:24 Dose: 150 mls/hr Documented by: Dextrose (Dextrose 10%-Water) 250 mls @ 999 mls/hr IV .Q16M PRN; Protocol PRN Reason: HYPOGLYCEMIA Vancomycin IV Pharmacy to Dose (1 ea/ Sodium Chloride) 500 mls @ 250 mls/hr IV X1 PRN; Protocol PRN Reason: Rx to Dose Vancomycin HCl (Vancomycin) 1,000 mg in 200 mls @ 200 mls/hr IV X1 ONE Stop: 04/20/19 07:59 Influenza Virus Vaccine Quadrival (Flucelvax /Fluzone ) 0.5 ml IM .ONCE ONE Stop: 04/20/19 10:01 Insulin Human Lispro (Humalog Kwikpen (Bkc)) 0 unit SC ACHS [facility]; Protocol Last Admin: 04/20/19 06:42 Dose: Not Given Documented by: Nutritional Formula (Lactose Free) (Glucerna Shake) 120 ml PO 4X/DAY [facility] Last Admin: 04/19/19 20:34 Dose: Not Given Documented by: Pravastatin Sodium (Pravachol) 20 mg PO DINNER [facility] Rasagiline (Azilect) 1 mg PO DAILY [facility] Senna (Senokot) 1 tablet PO BID [facility] Last Admin: 04/19/19 20:27 Dose: 1 tablet Documented by: Sodium Chloride () 10 - 40 ml IV UD PRN PRN Reason: SALINE FLUSH Tamsulosin HCl (Flomax) 0.4 mg PO QHS [facility] Assessment/Plan Active and Suspected Problems Severe sepsis (Acute) Cellulitis (Acute) RECOMMENDATIONS: 1. Add vancomycin 2. Okay to continue IV fluids 3. Continue baseline Parkinson's medications 4. Continue to monitor with sliding scale insulin 5. Okay to leave the intensive care unit from my perspective IMPRESSIONS: 1. Severe sepsis secondary to right lower extremity cellulitis Patient has had some progression over the last 12 hours in area of concern. Patient has had mild improvement in leukocytosis and renal function. Urine output remained stable. No boluses have been required. Will add vancomycin for now. Patient is not showing any adverse effects from the penicillin. 2. Acute kidney injury on CKD stage III Some improvement in renal function over the last 24 hours. Clinical suspicion for prerenal etiology secondary to #1. We will continue to monitor. No indication for electrolyte replacement at this time. Lisinopril has been held. 3. Parkinson's disease/type 2 diabetes mellitus/hyperlipidemia/hypertension/BPH/untreated MYRIAM Complicates care, management, recovery and prognosis. Unclear if overnight waking events were related to uncontrolled sleep apnea, but saturations appear to be controlled. This can be investigated as an outpatient. Continue with sliding scale insulin. Antihypertensives on hold secondary to acute condition. Continue with Parkinson's medications Code Visit Inpatient E&M: 35519 Init Hosp L3
[2019-04-20] MEDS: Vancomycin IV 1,000 MG/200 ML BAG 200 MG IV ×2 (07:52→20:01)
[2019-04-20] MEDS: CARBIDOPA/LEVODOPA 1 EACH CAPSULE.ER 3 EACH PO ×3 (07:53→17:56)
--- NOTE | 2019-04-20 09:43 | PHA.PHARE_ITS ---
Consult Pharmacy has been consulted to manage selected antiobiotic: Vancomycin Type of Consult: New start Suspected Infection: Sepsis, Skin/Soft tissue Labs: Sodium 137 mmol/L (136-145) 04/20/19 03:50 Potassium 4.5 mmol/L (3.5-5.1) 04/20/19 03:50 Chloride 107 mmol/L (98-107) 04/20/19 03:50 Carbon Dioxide 23.0 mmol/L (21.0-32.0) 04/20/19 03:50 Anion Gap 7 (5-15) 04/20/19 03:50 BUN 14 mg/dL (7-18) 04/20/19 03:50 Creatinine 1.29 mg/dL (0.70-1.30) 04/20/19 03:50 Est GFR (MDRD) Af Amer 71 mL/min (>60) 04/20/19 03:50 Est GFR (MDRD) Non-Af 59 mL/min (>60) L 04/20/19 03:50 BUN/Creatinine Ratio 10.9 RATIO (10-20) 04/20/19 03:50 Glucose 95 mg/dL (74-106) 04/20/19 03:50 Weight used for dosin.6 kg Estimated Creatinine Clearance: 59ML/MIN Goal Trough: 15-20 mcg/mL Pharmacy Plan for Drug Dosing: Give initial dose of 1000mg IV x1 as ordered, then continue with 1000mg IV q12h per [facility] dosing protocol. Will order a trough to be drawn prior to the 4th total dose. The patient's CrCl of 59 ml/min was calculated using an adjusted body weight of 78.5kg. Pharmacy Service will continue to monitor and adjust dosing as required. Follow-Up Labs: Trough Vancomycin Labs to be done on [date and time ordered]: 04/21/19 19:30
--- NOTE | 2019-04-20 09:50 | CASEMGMT ---
RN CM Assessment Introduced role of RN CM to patient.? Patient is alert, oriented and able?to participate in RN CM Assessment. ?Care providers, pharmacy, and demographics verified. Presentation: RLE Redness Admit Dx: Cellulitis Re-Admit: No Barriers/Issues: None. Patient has a h/o Parkinons Dz. Patient states that he is a . PCP: Jaiden Rivera ( Has only seen twice, first time was October 2018) Specialists: Neuro- Dr Juan R John at [facility] Preferred Pharmacy: [facility] Insurance: [facility] A&B, MMO Rx Benefit:?Yes ?LNOK: Yamileth Ford LW/HPOA: States has both and his is supposed to be bringing them to the hospital today to place a copy on file. HPOA- Yamileth Ford. Living Arrangements:? Lives with in a H, 3 steps to enter home ADL?s: Independent with ambulation inside home, uses a 2WW outside of home. Independent with ADLs except assists him with putting on/off shoes, states has to wear shoes all the time- even when taking showers d/t Parkinsons Transportation: Patient has not driven in six years. States his provides the transportation. States that he never renewed [facility] taxi application. DME: 2ww, denies any other DME. HHC: None SNF: Past at [facility] in [place], [place] Goal: Home and does not think will have any needs. Denies any issues, concerns, needs, or questions with DC planning at this time. States when he had to go to the SNF in the past, it was because he did not walk in the hospital x7 days and with h/o Parkinsons- he needed to learn how to walk again. States last admission here- he walked out and DC'd home after 3 days so he has confidence in this hospital. Aware CM will continue to follow for any emerging needs. States if additional PT is recommended, would want Outpatient PT at [facility] DC PLAN: Home and no anticipated needs. POOJA Bae
--- NOTE | 2019-04-20 10:13 | PN_ITS ---
Patient Problems: Active and Suspected Problems Severe sepsis (Acute) Cellulitis (Acute) Subjective: Patient seen and examined. Patient's right lower extremity redness has extended beyond knee to mid thigh. Denies right lower extremity pain. Continues to have fever. Denies other complaints. - Physical Exam Vitals/I&O's: Vital Signs Temp Pulse Resp BP Pulse Ox 99.4 F H 111 H 23 H 119/70 96 04/20/19 08:00 04/20/19 09:00 04/20/19 09:00 04/20/19 09:00 04/20/19 09:00 Oxygen Delivery Method Room Air Weight: 206 lb 5.643 oz Body Mass Index (BMI) 30.5 Intake and Output for Last 24 Hours 04/18/19 04/19/19 04/20/19 23:59 23:59 23:59 Intake Total 4296.67 / 4296.67 1323.34 / 1323.34 Output Total 375 / 375 150 / 150 Balance 3921.67 / 3921.67 1173.34 / 1173.34 General: Alert, Oriented x3, Cooperative HEENT: Atraumatic, PERRLA, EOMI, Normocephalic Neck: Supple, No JVD, Negative Carotid Bruits Lungs: Clear to auscultation, Normal air movement Cardiovascular: Regular Rhythm, Normal S1, Normal S2, No murmurs, Tachycardic Abdomen: Bowel Sounds Present, Soft, Non Tender, Non-Distended, Obese Extremities: No clubbing, No cyanosis, Capillary Refill Less than 3 Seconds, Edema - Right lower extremity Skin: No rashes, No breakdown, - - Diffuse right lower extremity redness and warmth, small scabbed abrasion right knee. Musculoskeletal: No Tenderness to Palpation of Joints or Extremities Neurological: Cranial nerves II-XII grossly intact, Neuro grossly intact Psych/Mental Status: Normal Affect, Appropriate Laboratory Results 04/19/19 11:40: Sodium Cancelled, Potassium Cancelled, Chloride Cancelled, Carbon Dioxide Cancelled, Anion Gap Cancelled, BUN Cancelled, Creatinine Cancelled, Estim Creat Clear Calc Cancelled, Est GFR (MDRD) Af Amer Cancelled, Est GFR (MDRD) Non-Af Cancelled, BUN/Creatinine Ratio Cancelled, Glucose Cancelled, Calcium Cancelled, Total Bilirubin Cancelled, AST Cancelled, ALT Cancelled, Alkaline Phosphatase Cancelled, Total Creatine Kinase Cancelled, Total Protein Cancelled, Albumin Cancelled, Globulin Cancelled, Albumin/Globulin Ratio Cancelled 04/19/19 11:40: WBC 19.0 H, RBC 5.34, Hgb 16.5, Hct 50.0, MCV 93.6, MCH 30.9, MCHC 33.0, RDW Std Deviation 45.3 H, RDW Coeff of Lexii 13.3, Plt Count 238, MPV 10.4, Immature Gran % (Auto) 1.200 H, Neut % (Auto) 92.5 H, Lymph % (Auto) 2.1 L , [place] % (Auto) 4.0, Eos % (Auto) 0.0, Baso % (Auto) 0.2, Absolute Neuts (auto) 17.6 H, Absolute Lymphs (auto) 0.39 L, Nucleated RBC % 0, Differential Comment COMMENT 04/19/19 11:40: PT Cancelled, INR Cancelled, APTT Cancelled 04/19/19 11:40: Lactic Acid Cancelled 04/19/19 12:15: Lactic Acid Cancelled 04/19/19 12:15: PT Cancelled, INR Cancelled, APTT Cancelled 04/19/19 12:15: Sodium Cancelled, Potassium Cancelled, Chloride Cancelled, Carbon Dioxide Cancelled, Anion Gap Cancelled, BUN Cancelled, Creatinine Cancelled, Estim Creat Clear Calc Cancelled, Est GFR (MDRD) Af Amer Cancelled, Est GFR (MDRD) Non-Af Cancelled, BUN/Creatinine Ratio Cancelled, Glucose Cancelled, Calcium Cancelled, Total Bilirubin Cancelled, AST Cancelled, ALT Cancelled, Alkaline Phosphatase Cancelled, Total Creatine Kinase Cancelled, Total Protein Cancelled, Albumin Cancelled, Globulin Cancelled, Albumin/Globulin Ratio Cancelled 04/19/19 13:00: PT 14.9, INR 1.2, APTT 28.4 04/19/19 13:00: Lactic Acid 2.5 H* 04/19/19 13:00: Sodium 136, Potassium 4.6, Chloride 106, Carbon Dioxide 24.0, Anion Gap 6, BUN 13, Creatinine 1.39 H, Estim Creat Clear Calc 47.84, Est GFR (MDRD) Af Amer 65, Est GFR (MDRD) Non-Af 54 L, BUN/Creatinine Ratio 9.4 L, Glucose 102, Calcium 8.8, Total Bilirubin 0.80, AST 14 L, ALT < 6 L, Alkaline Phosphatase 82, Total Creatine Kinase 52, Total Protein 7.2, Albumin 3.1 L, Globulin 4.1, Albumin/Globulin Ratio 0.8 L 04/19/19 15:35: POC Glucose 99 04/19/19 17:45: Lactic Acid Cancelled 04/19/19 18:48: Lactic Acid 2.8 H* 04/19/19 20:30: POC Glucose 115 H 04/20/19 03:50: WBC 17.7 H, RBC 4.64, Hgb 14.1, Hct 43.1, MCV 92.9, MCH 30.4, MCHC 32.7, RDW Std Deviation 46.9 H, RDW Coeff of Lexii 14.0, Plt Count 210, MPV 10.6, Immature Gran % (Auto) 0.600, Neut % (Auto) 89.1 H, Lymph % (Auto) 5.5 L, [place] % (Auto) 4.5, Eos % (Auto) 0.0, Baso % (Auto) 0.3, Absolute Neuts (auto) 15.7 H, Absolute Lymphs (auto) 0.98, Nucleated RBC % 0 04/20/19 03:50: Sodium 137, Potassium 4.5, Chloride 107, Carbon Dioxide 23.0, Anion Gap 7, BUN 14, Creatinine 1.29, Estim Creat Clear Calc 51.55, Est GFR (MDRD) Af Amer 71, Est GFR (MDRD) Non-Af 59 L, BUN/Creatinine Ratio 10.9, Glucose 95, Calcium 8.2 L 04/20/19 06:29: POC Glucose 104 Current Medications Acetaminophen (Tylenol) 650 mg PO Q6H PRN PRN PRN Reason: Pain Score 1-10/Temp > 100.7 F Amantadine HCl (Symmetrel) 100 mg PO BID [facility] Aspirin (Ecotrin) 81 mg PO QHS [facility] Last Admin: 04/19/19 20:27 Dose: 81 mg Documented by: Carbidopa/Levodopa (Sinemet Cr) 1 tablet PO QHS [facility] Last Admin: 04/19/19 20:27 Dose: 1 tablet Documented by: Carbidopa/Levodopa (Rytary Er 36.25 Mg-145 Mg Cap) 3 each PO 0800,1300,1800 [facility] Last Admin: 04/20/19 07:53 Dose: 3 each Documented by: Enoxaparin Sodium (Lovenox) 40 mg SC DAILY [facility] Glucagon () 1 mg IM .X1 PRN PRN Reason: Hypoglycemia Sodium Chloride () 1,000 mls @ 100 mls/hr IV .Q10H [facility] Last Infusion: 04/20/19 06:25 Dose: 0 mls/hr Documented by: Cefazolin Sodium 2 gm/ Sodium (Chloride) 110 mls @ 150 mls/hr IV Q8 [facility] Last Infusion: 04/20/19 07:48 Dose: Infused Documented by: Dextrose (Dextrose 10%-Water) 250 mls @ 999 mls/hr IV .Q16M PRN; Protocol PRN Reason: HYPOGLYCEMIA Vancomycin IV Pharmacy to Dose (1 ea/ Sodium Chloride) 500 mls @ 250 mls/hr IV X1 PRN; Protocol PRN Reason: Rx to Dose Vancomycin HCl (Vancomycin) 1,000 mg in 200 mls @ 200 mls/hr IV Q12H [facility] Insulin Human Lispro (Humalog Kwikpen (Bkc)) 0 unit SC ACHS [facility]; Protocol Last Admin: 04/20/19 06:42 Dose: Not Given Documented by: Nutritional Formula (Lactose Free) (Glucerna Shake) 120 ml PO 4X/DAY [facility] Last Admin: 04/19/19 20:34 Dose: Not Given Documented by: Pravastatin Sodium (Pravachol) 20 mg PO DINNER [facility] Rasagiline (Azilect) 1 mg PO DAILY [facility] Last Admin: 04/20/19 07:56 Dose: 1 mg Documented by: Senna (Senokot) 1 tablet PO BID [facility] Last Admin: 04/19/19 20:27 Dose: 1 tablet Documented by: Sodium Chloride () 10 - 40 ml IV UD PRN PRN Reason: SALINE FLUSH Tamsulosin HCl (Flomax) 0.4 mg PO QHS [facility] Medical Necessity - Tobacco Use Smoking Status: Never smoker Tobacco Use: Non-smoker Assessment/Plan All Active Problems Severe sepsis (Acute) Cellulitis (Acute) 1. Severe sepsis secondary to acute right lower extremity cellulitis- (WBC 19, lactic acid 2.5, temp 100.4, tachycardic on admission) Blood cultures pending. Continue IV fluids. IV cefazolin. IV vancomycin added. PRN Tylenol for fever. 2. Chronic kidney disease stage III-based on prior labs appears to have chronic kidney disease although do not have significant history of labs for comparison. Creatinine mildly elevated on admission, no acute kidney injury. Creatinine improved with hydration. Trend BMP. 3. Parkinson's disease-on Symmetrel, carbidopa/levodopa, Azilect. PT/OT. 4. Type 2 diabetes mellitus-hold metformin regimen. Accu-Cheks with sliding scale insulin. 5. Hypertension-patient on lisinopril. Hold BP regimen given hypotension. 6. Hyperlipidemia-continue statin. 7. BPH-continue Flomax regimen. DVT prophylaxis- Lovenox sc This patient was seen by BRONSON Lopez under the supervision of Dr. Villeda.
--- NOTE | 2019-04-20 10:20 | PN_ITS ---
Patient Problems: Active and Suspected Problems Severe sepsis (Acute) Cellulitis (Acute) Reason for Visit: cellulitis Subjective: Feeling better. Still with erythema on RLE, now extending beyond the line of demarcation. Vitals/I&O's: Vital Signs Temp Pulse Resp BP Pulse Ox 37.4 C H 105 H 33 H 106/59 L 95 04/20/19 08:00 04/20/19 10:00 04/20/19 10:00 04/20/19 10:00 04/20/19 10:00 Oxygen Delivery Method Room Air Weight: 93.6 kg Body Mass Index (BMI) 30.5 Intake and Output for Last 24 Hours 04/18/19 04/19/19 04/20/19 23:59 23:59 23:59 Intake Total 4296.67 / 4296.67 1323.34 / 1323.34 Output Total 375 / 375 150 / 150 Balance 3921.67 / 3921.67 1173.34 / 1173.34 General: Alert, No apparent distress HEENT: Atraumatic, Normocephalic Oral: Moist Mucosa, No Gingival or Mucosal Lesions/ Ulcerations Neck: No Nodes, Trachea Midline Lungs: Clear to auscultation, Normal air movement, No rhonchi, No wheeze, No rales Cardiovascular: Regular rate, Regular Rhythm, Normal S1, Normal S2, No murmurs Abdomen: Bowel Sounds Present, Soft, Non Tender, Non-Distended, No Hepato- splenomegaly Extremities: No edema, No Calf Tenderness Skin: - - erythema of RLE extending from foot to distal thigh. no open wounds. extending beyond the line of demarcation. Psych/Mental Status: Normal Affect, Appropriate Laboratory Results 04/19/19 11:40: Sodium Cancelled, Potassium Cancelled, Chloride Cancelled, Carbon Dioxide Cancelled, Anion Gap Cancelled, BUN Cancelled, Creatinine Cancelled, Estim Creat Clear Calc Cancelled, Est GFR (MDRD) Af Amer Cancelled, Est GFR (MDRD) Non-Af Cancelled, BUN/Creatinine Ratio Cancelled, Glucose Cancelled, Calcium Cancelled, Total Bilirubin Cancelled, AST Cancelled, ALT Cancelled, Alkaline Phosphatase Cancelled, Total Creatine Kinase Cancelled, Total Protein Cancelled, Albumin Cancelled, Globulin Cancelled, Albumin/Globulin Ratio Cancelled 04/19/19 11:40: WBC 19.0 H, RBC 5.34, Hgb 16.5, Hct 50.0, MCV 93.6, MCH 30.9, MCHC 33.0, RDW Std Deviation 45.3 H, RDW Coeff of Lexii 13.3, Plt Count 238, MPV 10.4, Immature Gran % (Auto) 1.200 H, Neut % (Auto) 92.5 H, Lymph % (Auto) 2.1 L , Payne % (Auto) 4.0, Eos % (Auto) 0.0, Baso % (Auto) 0.2, Absolute Neuts (auto) 17.6 H, Absolute Lymphs (auto) 0.39 L, Nucleated RBC % 0, Differential Comment COMMENT 04/19/19 11:40: PT Cancelled, INR Cancelled, APTT Cancelled 04/19/19 11:40: Lactic Acid Cancelled 04/19/19 12:15: Lactic Acid Cancelled 04/19/19 12:15: PT Cancelled, INR Cancelled, APTT Cancelled 04/19/19 12:15: Sodium Cancelled, Potassium Cancelled, Chloride Cancelled, Carbon Dioxide Cancelled, Anion Gap Cancelled, BUN Cancelled, Creatinine Cancelled, Estim Creat Clear Calc Cancelled, Est GFR (MDRD) Af Amer Cancelled, Est GFR (MDRD) Non-Af Cancelled, BUN/Creatinine Ratio Cancelled, Glucose Cancelled, Calcium Cancelled, Total Bilirubin Cancelled, AST Cancelled, ALT Cancelled, Alkaline Phosphatase Cancelled, Total Creatine Kinase Cancelled, Total Protein Cancelled, Albumin Cancelled, Globulin Cancelled, Albumin/Globulin Ratio Cancelled 04/19/19 13:00: PT 14.9, INR 1.2, APTT 28.4 04/19/19 13:00: Lactic Acid 2.5 H* 04/19/19 13:00: Sodium 136, Potassium 4.6, Chloride 106, Carbon Dioxide 24.0, Anion Gap 6, BUN 13, Creatinine 1.39 H, Estim Creat Clear Calc 47.84, Est GFR (MDRD) Af Amer 65, Est GFR (MDRD) Non-Af 54 L, BUN/Creatinine Ratio 9.4 L, Glucose 102, Calcium 8.8, Total Bilirubin 0.80, AST 14 L, ALT < 6 L, Alkaline Phosphatase 82, Total Creatine Kinase 52, Total Protein 7.2, Albumin 3.1 L, Globulin 4.1, Albumin/Globulin Ratio 0.8 L 04/19/19 15:35: POC Glucose 99 04/19/19 17:45: Lactic Acid Cancelled 04/19/19 18:48: Lactic Acid 2.8 H* 04/19/19 20:30: POC Glucose 115 H 04/20/19 03:50: WBC 17.7 H, RBC 4.64, Hgb 14.1, Hct 43.1, MCV 92.9, MCH 30.4, MCHC 32.7, RDW Std Deviation 46.9 H, RDW Coeff of Lexii 14.0, Plt Count 210, MPV 10.6, Immature Gran % (Auto) 0.600, Neut % (Auto) 89.1 H, Lymph % (Auto) 5.5 L, Payne % (Auto) 4.5, Eos % (Auto) 0.0, Baso % (Auto) 0.3, Absolute Neuts (auto) 15.7 H, Absolute Lymphs (auto) 0.98, Nucleated RBC % 0 04/20/19 03:50: Sodium 137, Potassium 4.5, Chloride 107, Carbon Dioxide 23.0, Anion Gap 7, BUN 14, Creatinine 1.29, Estim Creat Clear Calc 51.55, Est GFR (MDRD) Af Amer 71, Est GFR (MDRD) Non-Af 59 L, BUN/Creatinine Ratio 10.9, Glucose 95, Calcium 8.2 L 04/20/19 06:29: POC Glucose 104 Current Medications Acetaminophen (Tylenol) 650 mg PO Q6H PRN PRN PRN Reason: Pain Score 1-10/Temp > 100.7 F Amantadine HCl (Symmetrel) 100 mg PO BID [facility] Aspirin (Ecotrin) 81 mg PO QHS [facility] Last Admin: 04/19/19 20:27 Dose: 81 mg Documented by: Carbidopa/Levodopa (Sinemet Cr) 1 tablet PO QHS [facility] Last Admin: 04/19/19 20:27 Dose: 1 tablet Documented by: Carbidopa/Levodopa (Rytary Er 36.25 Mg-145 Mg Cap) 3 each PO 0800,1300,1800 [facility] Last Admin: 04/20/19 07:53 Dose: 3 each Documented by: Enoxaparin Sodium (Lovenox) 40 mg SC DAILY [facility] Glucagon () 1 mg IM .X1 PRN PRN Reason: Hypoglycemia Sodium Chloride () 1,000 mls @ 100 mls/hr IV .Q10H [facility] Last Infusion: 04/20/19 06:25 Dose: 0 mls/hr Documented by: Cefazolin Sodium 2 gm/ Sodium (Chloride) 110 mls @ 150 mls/hr IV Q8 [facility] Last Infusion: 04/20/19 07:48 Dose: Infused Documented by: Dextrose (Dextrose 10%-Water) 250 mls @ 999 mls/hr IV .Q16M PRN; Protocol PRN Reason: HYPOGLYCEMIA Vancomycin IV Pharmacy to Dose (1 ea/ Sodium Chloride) 500 mls @ 250 mls/hr IV X1 PRN; Protocol PRN Reason: Rx to Dose Vancomycin HCl (Vancomycin) 1,000 mg in 200 mls @ 200 mls/hr IV Q12H [facility] Insulin Human Lispro (Humalog Kwikpen (Bkc)) 0 unit SC ACHS [facility]; Protocol Last Admin: 04/20/19 06:42 Dose: Not Given Documented by: Nutritional Formula (Lactose Free) (Glucerna Shake) 120 ml PO 4X/DAY [facility] Last Admin: 04/19/19 20:34 Dose: Not Given Documented by: Pravastatin Sodium (Pravachol) 20 mg PO DINNER [facility] Rasagiline (Azilect) 1 mg PO DAILY [facility] Last Admin: 04/20/19 07:56 Dose: 1 mg Documented by: Senna (Senokot) 1 tablet PO BID [facility] Last Admin: 04/19/19 20:27 Dose: 1 tablet Documented by: Sodium Chloride () 10 - 40 ml IV UD PRN PRN Reason: SALINE FLUSH Tamsulosin HCl (Flomax) 0.4 mg PO QHS [facility] STROKE Vital Signs/Narrative: Vital Signs Temp Pulse Resp BP Pulse Ox 04/20/19 10:00 105 H 33 H 106/59 L 95 04/20/19 09:00 111 H 23 H 119/70 96 04/20/19 08:00 37.4 C H 99 18 116/80 100 04/20/19 07:00 99 30 H 113/59 L 94 Medical Necessity - Tobacco Use Smoking Status: Never smoker Tobacco Use: Non-smoker Assessment/Plan All Active Problems Severe sepsis (Acute) Cellulitis (Acute) 1. severe sepsis * POA. 2/2 RLE cellulitis * repeat lactate went up. repeat again * HDS, though still tachycardic and tachypneic and with leukocytosis. * per current hospital guidelines, will keep in ICU until no longer deemed severe sepsis. Therefore, if repeat lactate normalized, then will transfer out. * BCx pending 2. RLE cellulitis * worse with cefazolin * agree with addn of vancomycin 3. DM2 * fair control * on SSI * metformin held given lactic acidosis 4. Parkinson's disease * continue carb/levo, amantadine * follow up with neurology as outpt 5. VTE prophylaxis: LMWH. Code Visit Inpatient E&M: 65081 Subs Hosp L2
[2019-04-20] MEDS: Enoxaparin 40 MG/0.4 ML Syringe SC (11:51)
[2019-04-20] MEDS: Amantadine 100 MG Capsule PO (11:51)
[2019-04-20] MEDS: Senna Tablet 1 TABLET PO ×2 (11:53→20:56)
[2019-04-20] MEDS: Glucerna Shake 120 ML LIQUID PO ×2 (11:59→20:57)
[2019-04-20 12:36] LABS: Bedside Glucose 85 mg/dL (70-110)
--- NOTE | 2019-04-20 15:04 | CHAPLAIN ---
two attempts made to visit with patient; pt in PT and then pt is sleeping
--- NOTE | 2019-04-20 16:30 | CHAPLAIN ---
Type of Pastoral Visit _x__ Initial Visit ___ Follow-up Visit ___ On-call Visit ___ General Patient Visit ___ Spiritual Assessment ___ Family Conference ___ Bereavement ___ Rapid Response ___ Code Blue ___ Other (describe below) Pastoral Care Referral From _x__ Patient ___ Family ___ Nurse ___ Physician ___ Hematology Specialist ___ Hand I Thermal Cutter ___ Other (describe below) Sacrament/Intervention _x__ Active listening ___ Anointing ___ Buddhist ___ Bereavement ___ Communion _x__ [place] exploration ___ _x__ Life review ___ Prayer ___ Reconciliation ___ Sacrament of Sick _x__ Supportive presence ___ Wedding ___ Other (describe below) Pastoral Comments
[2019-04-20 16:50] LABS: Reflex Lactate? Y
[2019-04-20 17:21] LABS: Bedside Glucose 85 mg/dL (70-110)
[2019-04-20 17:40] LABS: Lactic Acid 1.4 mmol/L (0.4-1.9)
[2019-04-20] MEDS: Acetaminophen 325 MG Tablet 650 MG PO (17:55)
[2019-04-20] MEDS: Pravastatin 20 MG Tablet PO (17:56)
[2019-04-20] MEDS: Tamsulosin HCl 0.4 MG Capsule PO (20:56)
[2019-04-20] MEDS: CARBIDOPA/LEVODOPA CR 50/200 Tablet PO (20:57)
[2019-04-20] MEDS: Aspirin E.C. 81 MG Tablet PO (20:59)
[2019-04-20 21:11] LABS: Bedside Glucose 153 mg/dL (70-110)
[2019-04-21] VITALS (16 sets, daily range): BP systolic 103–149; BP diastolic 55–84; PULSE 88–107; RESP 14–30; TEMP 36.8–37.7; O2SAT 95–99
[2019-04-21] MEDS: 0.9% Normal Saline 1,000 ML 100 ML IV (01:39)
[2019-04-21] MEDS: 0.9% Saline Lock 10 ML Syringe IV ×3 (03:58→13:24)
[2019-04-21 04:00] LABS: Hematocrit 37.1 % (40-54); Hemoglobin 12.2 g/dL (13.0-16.5); Mean Corp Hgb Conc 32.9 g/dL (32-36); Mean Corpuscular Hgb 30.7 pg (27.0-32.0); Mean Corpuscular Volume 93.2 fL (80-94); Platelet Count 166 K/mm3 (150-450); RBC Distribution Width CV 13.9 % (11.6-14.6); RBC Distribution Width SD 47.1 fl (35.1-43.9); Red Blood Count 3.98 M/mm3 (4.6-6.2); White Blood Count 11.8 K/mm3 (4.4-11.0)
[2019-04-21 04:22] LABS: Anion Gap 6 (5-15); BUN 11 mg/dL (7-18); BUN/Creat Ratio 12.9 RATIO (10-20); Calcium,Total 6.6 mg/dL (8.5-10.1); Chloride 111 mmol/L (98-107); Creatinine, Serum 0.85 mg/dL (0.70-1.30); EST Glomerular Filtration Rate 95 mL/min (>60); Est Glom Filt Rate - Afr Amer 114 mL/min (>60); Estimated Creatinine Clearance 78.24 ml/min; Glucose 79 mg/dL (74-106); Potassium 3.4 mmol/L (3.5-5.1); Sodium Level 138 mmol/L (136-145)
[2019-04-21] MEDS: Cefazolin 2 GM in 0.9% Normal Saline 100 ML IV ×3 (05:22→22:13)
[2019-04-21 07:05] LABS: Bedside Glucose 96 mg/dL (70-110)
--- NOTE | 2019-04-21 07:19 | PN_ITS ---
Subjective: Patient did well overnight. No acute issues were reported. Patient still reporting some right lower extremity discomfort. Patient did have a fever, but was responsive to Tylenol. General: Alert, Oriented x3, Cooperative, No apparent distress, Well developed, Well nourished, - - No conversational dyspnea. HEENT: Atraumatic, PERRLA, EOMI, Normocephalic, - - No scleral icterus or injection noted. Glasses in place. Oral: Moist Mucosa, No Gingival or Mucosal Lesions/ Ulcerations Neck: Supple, No JVD, No Nodes, Trachea Midline Lungs: Clear to auscultation, Normal air movement, No rhonchi, No wheeze, No rales Cardiovascular: Regular rate, Regular Rhythm, Normal S1, Normal S2, No murmurs, No rub noted, No Gallop Abdomen: Bowel Sounds Present, Soft, Non Tender, Non-Distended Extremities: No clubbing, No cyanosis, Edema - Right lower extremity Skin: Rash Present - And heat slight regression in some areas, but still with intense inflammation Musculoskeletal: No Tenderness to Palpation of Joints or Extremities Lymphatic: No Cervical, Supraclavicular, or Inguinal Adenopathy Neurological: Cranial nerves II-XII grossly intact, Neuro grossly intact, Motor Exam 5/5 strength throughout Psych/Mental Status: Alert and oriented to time, place, person, mood and affect Vital Signs Temp Pulse Resp BP Pulse Ox 37.5 C H 95 25 H 117/69 96 04/21/19 05:00 04/21/19 07:00 04/21/19 07:00 04/21/19 07:00 04/21/19 07:00 Oxygen Delivery Method Room Air Weight: 95.6 kg Body Mass Index (BMI) 30.5 Intake and Output for Last 24 Hours 04/19/19 04/20/19 04/21/19 23:59 23:59 23:59 Intake Total 4296.67 / 4296.67 3885.00 / 4105.00 1178.34 / 1178.34 Output Total 375 / 375 975 / 1325 750 / 750 Balance 3921.67 / 3921.67 2910.00 / 2780.00 428.34 / 428.34 Labs (Last 48 Hours) 04/19/19 04/19/19 04/19/19 11:40 11:40 11:40 WBC 19.0 H RBC 5.34 Hgb 16.5 Hct 50.0 MCV 93.6 MCH 30.9 MCHC 33.0 RDW Std Deviation 45.3 H RDW Coeff of Lexii 13.3 Plt Count 238 MPV 10.4 Immature Gran % (Auto) 1.200 H Neut % (Auto) 92.5 H Lymph % (Auto) 2.1 L Stevens % (Auto) 4.0 Eos % (Auto) 0.0 Baso % (Auto) 0.2 Absolute Neuts (auto) 17.6 H Absolute Lymphs (auto) 0.39 L Nucleated RBC % 0 Differential Comment COMMENT PT Cancelled INR Cancelled APTT Cancelled Sodium Cancelled Potassium Cancelled Chloride Cancelled Carbon Dioxide Cancelled Anion Gap Cancelled BUN Cancelled Creatinine Cancelled Estim Creat Clear Calc Cancelled Est GFR (MDRD) Af Amer Cancelled Est GFR (MDRD) Non-Af Cancelled BUN/Creatinine Ratio Cancelled Glucose Cancelled Lactic Acid Calcium Cancelled Total Bilirubin Cancelled AST Cancelled ALT Cancelled Alkaline Phosphatase Cancelled Total Creatine Kinase Cancelled Total Protein Cancelled Albumin Cancelled Globulin Cancelled Albumin/Globulin Ratio Cancelled POC Glucose 04/19/19 04/19/19 04/19/19 11:40 12:15 12:15 WBC RBC Hgb Hct MCV MCH MCHC RDW Std Deviation RDW Coeff of Lexii Plt Count MPV Immature Gran % (Auto) Neut % (Auto) Lymph % (Auto) Stevens % (Auto) Eos % (Auto) Baso % (Auto) Absolute Neuts (auto) Absolute Lymphs (auto) Nucleated RBC % Differential Comment PT Cancelled INR Cancelled APTT Cancelled Sodium Potassium Chloride Carbon Dioxide Anion Gap BUN Creatinine Estim Creat Clear Calc Est GFR (MDRD) Af Amer Est GFR (MDRD) Non-Af BUN/Creatinine Ratio Glucose Lactic Acid Cancelled Cancelled Calcium Total Bilirubin AST ALT Alkaline Phosphatase Total Creatine Kinase Total Protein Albumin Globulin Albumin/Globulin Ratio POC Glucose 04/19/19 04/19/19 04/19/19 12:15 13:00 13:00 WBC RBC Hgb Hct MCV MCH MCHC RDW Std Deviation RDW Coeff of Lexii Plt Count MPV Immature Gran % (Auto) Neut % (Auto) Lymph % (Auto) Stevens % (Auto) Eos % (Auto) Baso % (Auto) Absolute Neuts (auto) Absolute Lymphs (auto) Nucleated RBC % Differential Comment PT 14.9 INR 1.2 APTT 28.4 Sodium Cancelled Potassium Cancelled Chloride Cancelled Carbon Dioxide Cancelled Anion Gap Cancelled BUN Cancelled Creatinine Cancelled Estim Creat Clear Calc Cancelled Est GFR (MDRD) Af Amer Cancelled Est GFR (MDRD) Non-Af Cancelled BUN/Creatinine Ratio Cancelled Glucose Cancelled Lactic Acid 2.5 H* Calcium Cancelled Total Bilirubin Cancelled AST Cancelled ALT Cancelled Alkaline Phosphatase Cancelled Total Creatine Kinase Cancelled Total Protein Cancelled Albumin Cancelled Globulin Cancelled Albumin/Globulin Ratio Cancelled POC Glucose 04/19/19 04/19/19 04/19/19 13:00 15:35 17:45 WBC RBC Hgb Hct MCV MCH MCHC RDW Std Deviation RDW Coeff of Lexii Plt Count MPV Immature Gran % (Auto) Neut % (Auto) Lymph % (Auto) Stevens % (Auto) Eos % (Auto) Baso % (Auto) Absolute Neuts (auto) Absolute Lymphs (auto) Nucleated RBC % Differential Comment PT INR APTT Sodium 136 Potassium 4.6 Chloride 106 Carbon Dioxide 24.0 Anion Gap 6 BUN 13 Creatinine 1.39 H Estim Creat Clear Calc 47.84 Est GFR (MDRD) Af Amer 65 Est GFR (MDRD) Non-Af 54 L BUN/Creatinine Ratio 9.4 L Glucose 102 Lactic Acid Cancelled Calcium 8.8 Total Bilirubin 0.80 AST 14 L ALT < 6 L Alkaline Phosphatase 82 Total Creatine Kinase 52 Total Protein 7.2 Albumin 3.1 L Globulin 4.1 Albumin/Globulin Ratio 0.8 L POC Glucose 99 04/19/19 04/19/19 04/20/19 18:48 20:30 03:50 WBC 17.7 H RBC 4.64 Hgb 14.1 Hct 43.1 MCV 92.9 MCH 30.4 MCHC 32.7 RDW Std Deviation 46.9 H RDW Coeff of Lexii 14.0 Plt Count 210 MPV 10.6 Immature Gran % (Auto) 0.600 Neut % (Auto) 89.1 H Lymph % (Auto) 5.5 L Stevens % (Auto) 4.5 Eos % (Auto) 0.0 Baso % (Auto) 0.3 Absolute Neuts (auto) 15.7 H Absolute Lymphs (auto) 0.98 Nucleated RBC % 0 Differential Comment PT INR APTT Sodium Potassium Chloride Carbon Dioxide Anion Gap BUN Creatinine Estim Creat Clear Calc Est GFR (MDRD) Af Amer Est GFR (MDRD) Non-Af BUN/Creatinine Ratio Glucose Lactic Acid 2.8 H* Calcium Total Bilirubin AST ALT Alkaline Phosphatase Total Creatine Kinase Total Protein Albumin Globulin Albumin/Globulin Ratio POC Glucose 115 H 04/20/19 04/20/19 04/20/19 03:50 06:29 12:22 WBC RBC Hgb Hct MCV MCH MCHC RDW Std Deviation RDW Coeff of Lexii Plt Count MPV Immature Gran % (Auto) Neut % (Auto) Lymph % (Auto) Stevens % (Auto) Eos % (Auto) Baso % (Auto) Absolute Neuts (auto) Absolute Lymphs (auto) Nucleated RBC % Differential Comment PT INR APTT Sodium 137 Potassium 4.5 Chloride 107 Carbon Dioxide 23.0 Anion Gap 7 BUN 14 Creatinine 1.29 Estim Creat Clear Calc 51.55 Est GFR (MDRD) Af Amer 71 Est GFR (MDRD) Non-Af 59 L BUN/Creatinine Ratio 10.9 Glucose 95 Lactic Acid Calcium 8.2 L Total Bilirubin AST ALT Alkaline Phosphatase Total Creatine Kinase Total Protein Albumin Globulin Albumin/Globulin Ratio POC Glucose 104 85 04/20/19 04/20/19 04/20/19 12:45 15:10 17:09 WBC RBC Hgb Hct MCV MCH MCHC RDW Std Deviation RDW Coeff of Lexii Plt Count MPV Immature Gran % (Auto) Neut % (Auto) Lymph % (Auto) Stevens % (Auto) Eos % (Auto) Baso % (Auto) Absolute Neuts (auto) Absolute Lymphs (auto) Nucleated RBC % Differential Comment PT INR APTT Sodium Potassium Chloride Carbon Dioxide Anion Gap BUN Creatinine Estim Creat Clear Calc Est GFR (MDRD) Af Amer Est GFR (MDRD) Non-Af BUN/Creatinine Ratio Glucose Lactic Acid 3.0 H* 1.4 Calcium Total Bilirubin AST ALT Alkaline Phosphatase Total Creatine Kinase Total Protein Albumin Globulin Albumin/Globulin Ratio POC Glucose 85 04/20/19 04/21/19 04/21/19 21:00 03:30 03:30 WBC 11.8 H RBC 3.98 L Hgb 12.2 L Hct 37.1 L MCV 93.2 MCH 30.7 MCHC 32.9 RDW Std Deviation 47.1 H RDW Coeff of Lexii 13.9 Plt Count 166 MPV 10.0 Immature Gran % (Auto) Neut % (Auto) Lymph % (Auto) Stevens % (Auto) Eos % (Auto) Baso % (Auto) Absolute Neuts (auto) Absolute Lymphs (auto) Nucleated RBC % Differential Comment PT INR APTT Sodium 138 Potassium 3.4 L Chloride 111 H Carbon Dioxide 21.0 Anion Gap 6 BUN 11 Creatinine 0.85 Estim Creat Clear Calc 78.24 Est GFR (MDRD) Af Amer 114 Est GFR (MDRD) Non-Af 95 BUN/Creatinine Ratio 12.9 Glucose 79 Lactic Acid Calcium 6.6 L Total Bilirubin AST ALT Alkaline Phosphatase Total Creatine Kinase Total Protein Albumin Globulin Albumin/Globulin Ratio POC Glucose 153 H 04/21/19 07:00 WBC RBC Hgb Hct MCV MCH MCHC RDW Std Deviation RDW Coeff of Lexii Plt Count MPV Immature Gran % (Auto) Neut % (Auto) Lymph % (Auto) Stevens % (Auto) Eos % (Auto) Baso % (Auto) Absolute Neuts (auto) Absolute Lymphs (auto) Nucleated RBC % Differential Comment PT INR APTT Sodium Potassium Chloride Carbon Dioxide Anion Gap BUN Creatinine Estim Creat Clear Calc Est GFR (MDRD) Af Amer Est GFR (MDRD) Non-Af BUN/Creatinine Ratio Glucose Lactic Acid Calcium Total Bilirubin AST ALT Alkaline Phosphatase Total Creatine Kinase Total Protein Albumin Globulin Albumin/Globulin Ratio POC Glucose 96 Medical Necessity - Tobacco Use Smoking Status: Never smoker Tobacco Use: Non-smoker Assessment/Plan All Active Problems Severe sepsis (Acute) Cellulitis (Acute) RECOMMENDATIONS: 1. Consider infectious disease evaluation 2. Okay to discontinue IV fluids from my perspective 3. Continue baseline Parkinson's medications 4. Continue to monitor with sliding scale insulin 5. Will dynamically stable on room air. Will sign off from a critical care perspective IMPRESSIONS: 1. Severe sepsis secondary to right lower extremity cellulitis Patient appears to have some response to vancomycin, but still has areas of significant erythema. Lactate has normalized. Blood pressures have been stable for over 24 hours. Patient did have a fever overnight, but was responsive to Tylenol. 2. Acute kidney injury on CKD stage III Resolved. Some improvement in renal function over the last 24 hours. Cli nical suspicion for prerenal etiology secondary to #1. We will continue to monitor. Consider p.o. potassium repletion. Okay to reinitiate baseline lisinopril from my perspective 3. Parkinson's disease/type 2 diabetes mellitus/hyperlipidemia/hypertension/BPH/untreated MYRIAM Complicates care, management, recovery and prognosis. Unclear if overnight waking events were related to uncontrolled sleep apnea, but saturations appear to be controlled. This can be investigated as an outpatient. Continue with sliding scale insulin. Continue with Parkinson's medications Code Visit Inpatient E&M: 46932 Subs Hosp L2
[2019-04-21] MEDS: Vancomycin IV 1,000 MG/200 ML BAG 200 MG IV (08:25)
[2019-04-21] MEDS: CARBIDOPA/LEVODOPA 1 EACH CAPSULE.ER 3 EACH PO ×3 (08:27→17:32)
[2019-04-21] MEDS: Amantadine 100 MG Capsule PO ×2 (08:28→13:19)
[2019-04-21] MEDS: Senna Tablet 1 TABLET PO ×2 (08:29→22:15)
--- NOTE | 2019-04-21 09:16 | PN_ITS ---
Patient Problems: Active and Suspected Problems Severe sepsis (Acute) Cellulitis (Acute) Reason for Visit: cellulitis Subjective: Feels the same, RLE the same Vitals/I&O's: Vital Signs Temp Pulse Resp BP Pulse Ox 37.5 C H 95 25 H 117/69 96 04/21/19 05:00 04/21/19 07:00 04/21/19 07:00 04/21/19 07:00 04/21/19 07:00 Oxygen Delivery Method Room Air Weight: 95.6 kg Body Mass Index (BMI) 30.5 Intake and Output for Last 24 Hours 04/19/19 04/20/19 04/21/19 23:59 23:59 23:59 Intake Total 4296.67 / 4296.67 3885.00 / 4105.00 1178.34 / 1178.34 Output Total 375 / 375 975 / 1325 750 / 750 Balance 3921.67 / 3921.67 2910.00 / 2780.00 428.34 / 428.34 General: Alert, No apparent distress HEENT: Atraumatic, Normocephalic Oral: Moist Mucosa, No Gingival or Mucosal Lesions/ Ulcerations Neck: No Nodes, Trachea Midline Lungs: Clear to auscultation, Normal air movement, No rhonchi, No wheeze, No rales Cardiovascular: Regular rate, Regular Rhythm, Normal S1, Normal S2, No murmurs Abdomen: Bowel Sounds Present, Soft, Non Tender, Non-Distended, No Hepato- splenomegaly Extremities: No edema, No Calf Tenderness Skin: - - macular rash of RLE, slightly less red, withdrawn from line of demarcation in some areas, but extended beyond in others. Psych/Mental Status: Appropriate, Flat Affect Microbiology Past 72 Hours 04/19/19 12:05 Blood Culture (Wb) - Right Wrist Blood Culture - Preliminary No growth in 48 hours. 04/19/19 11:40 Blood Culture (Wb) - Right Forearm Blood Culture - Preliminary No growth in 48 hours. Laboratory Results 04/20/19 12:22: POC Glucose 85 04/20/19 12:45: Lactic Acid 3.0 H* 04/20/19 15:10: Lactic Acid 1.4 04/20/19 17:09: POC Glucose 85 04/20/19 21:00: POC Glucose 153 H 04/21/19 03:30: WBC 11.8 H, RBC 3.98 L, Hgb 12.2 L, Hct 37.1 L, MCV 93.2, MCH 30.7, MCHC 32.9, RDW Std Deviation 47.1 H, RDW Coeff of Lexii 13.9, Plt Count 166, MPV 10.0 04/21/19 03:30: Sodium 138, Potassium 3.4 L, Chloride 111 H, Carbon Dioxide 21.0, Anion Gap 6, BUN 11, Creatinine 0.85, Estim Creat Clear Calc 78.24, Est GFR (MDRD) Af Amer 114, Est GFR (MDRD) Non-Af 95, BUN/Creatinine Ratio 12.9, Glucose 79, Calcium 6.6 L 04/21/19 07:00: POC Glucose 96 Current Medications Acetaminophen (Tylenol) 650 mg PO Q6H PRN PRN PRN Reason: Pain Score 1-10/Temp > 100.7 F Last Admin: 04/20/19 17:55 Dose: 650 mg Documented by: Amantadine HCl (Symmetrel) 100 mg PO 0800,1300 [facility] Last Admin: 04/21/19 08:28 Dose: 100 mg Documented by: Aspirin (Ecotrin) 81 mg PO QHS [facility] Last Admin: 04/20/19 20:59 Dose: 81 mg Documented by: Carbidopa/Levodopa (Sinemet Cr) 1 tablet PO QHS [facility] Last Admin: 04/20/19 20:57 Dose: 1 tablet Documented by: Carbidopa/Levodopa (Rytary Er 36.25 Mg-145 Mg Cap) 3 each PO 0800,1300,1800 [facility] Last Admin: 04/21/19 08:27 Dose: 3 each Documented by: Enoxaparin Sodium (Lovenox) 40 mg SC DAILY [facility] Last Admin: 04/20/19 11:51 Dose: 40 mg Documented by: Glucagon () 1 mg IM .X1 PRN PRN Reason: Hypoglycemia Cefazolin Sodium 2 gm/ Sodium (Chloride) 110 mls @ 150 mls/hr IV Q8 [facility] Last Infusion: 04/21/19 06:06 Dose: Infused Documented by: Dextrose (Dextrose 10%-Water) 250 mls @ 999 mls/hr IV .Q16M PRN; Protocol PRN Reason: HYPOGLYCEMIA Vancomycin IV Pharmacy to Dose (1 ea/ Sodium Chloride) 500 mls @ 250 mls/hr IV X1 PRN; Protocol PRN Reason: Rx to Dose Vancomycin HCl (Vancomycin) 1,000 mg in 200 mls @ 200 mls/hr IV Q12H [facility] Last Admin: 04/21/19 08:25 Dose: 200 mls/hr Documented by: Insulin Human Lispro (Humalog Kwikpen (Bkc)) 0 unit SC ACHS [facility]; Protocol Last Admin: 04/21/19 08:26 Dose: Not Given Documented by: Nutritional Formula (Lactose Free) (Glucerna Shake) 120 ml PO 4X/DAY [facility] Last Admin: 04/20/19 20:57 Dose: 120 ml Documented by: Pravastatin Sodium (Pravachol) 20 mg PO DINNER [facility] Last Admin: 04/20/19 17:56 Dose: 20 mg Documented by: Rasagiline (Azilect) 1 mg PO DAILY [facility] Last Admin: 04/21/19 08:29 Dose: 1 mg Documented by: Senna (Senokot) 1 tablet PO BID [facility] Last Admin: 04/21/19 08:29 Dose: 1 tablet Documented by: Sodium Chloride () 10 - 40 ml IV UD PRN PRN Reason: SALINE FLUSH Last Admin: 04/21/19 03:58 Dose: 40 ml Documented by: Tamsulosin HCl (Flomax) 0.4 mg PO QHS [facility] Last Admin: 04/20/19 20:56 Dose: 0.4 mg Documented by: STROKE Vital Signs/Narrative: Vital Signs Pulse Resp BP Pulse Ox 04/21/19 07:00 95 25 H 117/69 96 04/21/19 06:00 96 26 H 121/65 H 97 Medical Necessity - Tobacco Use Smoking Status: Never smoker Tobacco Use: Non-smoker Assessment/Plan All Active Problems Severe sepsis (Acute) Cellulitis (Acute) 1. severe sepsis * POA. 2/2 RLE cellulitis * repeat lactate finally trending down * tachycardia improved, though tachypneic. * per current hospital guidelines, patient required ICU monitoring while severe sepsis. Now that no longer severe sepsis, will transfer to medical surgical unit. * BCx pending 2. RLE cellulitis * minimal improvement * Vanc and ancef * consult ID 3. DM2 * fair control * on SSI * metformin held given lactic acidosis 4. Parkinson's disease * continue carb/levo, amantadine * follow up with neurology as outpt 5. VTE prophylaxis: LMWH. Code Visit Inpatient E&M: 33545 Subs Hosp L2
[2019-04-21] MEDS: Glucerna Shake 120 ML LIQUID PO ×2 (11:51→17:35)
[2019-04-21] MEDS: Enoxaparin 40 MG/0.4 ML Syringe SC (11:51)
[2019-04-21 12:05] LABS: Bedside Glucose 74 mg/dL (70-110)
--- NOTE | 2019-04-21 14:45 | CON.PCM_ITS ---
Problem List (1) Severe sepsis Status: Acute Reason for Consult: cellulitis Consulted by: Dr. Villeda History of Present Illness: The patient is a 68 year old M with parkinson's, presented 3/2 to the ED with one day history of fever, chills, RLE redness/swelling/warmth. Scrapped his R knee on the carpet after a fall about 3 weeks ago, but had been healing with no issues. No drainage from leg. No recent abx. Came to ED, fever to 100.9, a dmitted to icu with severe sepsis. On cefazolin, vanc added on admit. Feeling better, no further fever, leg still red. No pain. Full ROS performed and neg except as noted above. No drainage from leg. - Medical History Past Medical History (Chronic Problems): Chronic Problems HTN (hypertension) (Chronic) HLD (hyperlipidemia) (Chronic) BPH (benign prostatic hyperplasia) (Chronic) Parkinson disease (Chronic) DMII (diabetes mellitus, type 2) (Chronic) Allergies/Adverse Reactions: Allergies Penicillins [PCN] Allergy (Verified 04/19/19 11:34) Unknown tetanus and diphtheria toxoids Allergy (Verified 04/19/19 14:22) Unknown Home Medications: Ambulatory Orders Medication Instructions Recorded Amantadine [Symmetrel] 100 mg PO BID 10/24/17 Aspirin E.C. [Ecotrin] 81 mg PO QHS 10/24/17 Lisinopril [Zestril] 10 mg PO DAILY 10/24/17 Pravastatin Sodium [Pravachol] 20 mg PO QHS 10/24/17 Rasagiline Mesylate [Azilect] 1 tab PO DAILY 10/24/17 Senna [Senokot] 1 tablet PO BID 10/24/17 Tamsulosin HCl [Flomax] 0.4 mg PO DAILY 10/24/17 metFORMIN HCl [Glucophage] 500 mg PO BIDCM 10/24/17 Carbidopa/Levodopa [Carbidopa-Levo 1 tab PO QHS 04/19/19 ER 50-200 Tab] Carbidopa/Levodopa [Rytary ER 3 cap PO TID 04/19/19 36.25 mg-145 mg Cap] - Social History Tobacco Use: non-smoker Vital Signs Temp Pulse Resp BP Pulse Ox 98.7 F 99 20 H 111/55 L 97 04/21/19 10:00 04/21/19 10:00 04/21/19 10:00 04/21/19 10:00 04/21/19 10:00 Oxygen Delivery Method Room Air Weight: 95.6 kg Body Mass Index (BMI) 30.5 Microbiology Past 72 Hours 04/19/19 12:05 Blood Culture - Preliminary Blood Culture (Wb) - Right Wrist No growth in 48 hours. 04/19/19 11:40 Blood Culture - Preliminary Blood Culture (Wb) - Right Forearm No growth in 48 hours. Laboratory Tests Past 24 Hrs 04/20/19 04/21/19 04/21/19 15:10 03:30 03:30 WBC 11.8 H RBC 3.98 L Hgb 12.2 L Hct 37.1 L MCV 93.2 MCH 30.7 MCHC 32.9 RDW Std Deviation 47.1 H RDW Coeff of Lexii 13.9 Plt Count 166 MPV 10.0 Sodium 138 Potassium 3.4 L Chloride 111 H Carbon Dioxide 21.0 Anion Gap 6 BUN 11 Creatinine 0.85 Estim Creat Clear Calc 78.24 Est GFR (MDRD) Af Amer 114 Est GFR (MDRD) Non-Af 95 BUN/Creatinine Ratio 12.9 Glucose 79 Lactic Acid 1.4 Calcium 6.6 L - Other Studies Radiology: [] reviewed Other Studies: [] Route of nutrition/ use of supplements: [] Nutritional Intake: [] IV Site: [] Vincent Catheter: [] - Physical Exam General: Alert, Oriented x3, Cooperative, No apparent distress HEENT: Atraumatic, PERRLA, EOMI Neck: Supple, No Nodes Lungs: Clear to auscultation, Normal air movement Cardiovascular: Regular rate, Regular Rhythm Abdomen: Soft, Non Tender, Non-Distended Extremities: Edema - RLE edema Skin: Rash Present - redness/swelling/warmth in RLE IV Site: Peripheral, without redness Musculoskeletal: No Tenderness to Palpation of Joints or Extremities Neurological: Cranial nerves II-XII grossly intact - Assessment/Plan Antibiotics: [] Assessment/Plan: [] Active and Suspected Problems Severe sepsis (Acute) Cellulitis (Acute) severe sepsis due to RLE cellulitis - improving. Wbc nearly normal, fever resolved, feeling better, bcx neg. Will stop vanc, continue cefazolin. No purulence. Will follow, thank you.
[2019-04-21] MEDS: Pravastatin 20 MG Tablet PO (17:32)
[2019-04-21 17:41] LABS: Bedside Glucose 113 mg/dL (70-110)
[2019-04-21] MEDS: Aspirin E.C. 81 MG Tablet PO (22:15)
[2019-04-21] MEDS: Tamsulosin HCl 0.4 MG Capsule PO (22:15)
[2019-04-21] MEDS: CARBIDOPA/LEVODOPA CR 50/200 Tablet PO (22:15)
[2019-04-21 22:50] LABS: Bedside Glucose 96 mg/dL (70-110)
[2019-04-22 03:45] VITALS: BP 108/70; PULSE 82; RESP 18; TEMP 36.8; O2SAT 97
[2019-04-22] MEDS: Cefazolin 2 GM in 0.9% Normal Saline 100 ML IV ×3 (06:06→21:28)
[2019-04-22 06:19] LABS: Absolute Lymphocyte Count 1.27 X10^3/uL (0.83-4.51); Basophil# 0.05 X10^3/uL; Basophil% 0.5 % (0-1); Eosinophil# 0.33 X10^3/uL; Eosinophils% 3.3 % (0-5); Hematocrit 40.8 % (40-54); Hemoglobin 13.2 g/dL (13.0-16.5); Lymphocyte # 1.27 X10^3/ul (4.0); Lymphocyte % 12.7 % (19-41); Mean Corp Hgb Conc 32.4 g/dL (32-36); Mean Corpuscular Hgb 29.5 pg (27.0-32.0); Mean Corpuscular Volume 91.3 fL (80-94); Mean Platelet Vol. 10.6 fl (6.2-12.0); Monocyte# 1.33 X10^3/uL; Monocyte% 13.3 % (0-10); NRBC Flagged by Analyzer 0 % (0-5); Neutrophil # 6.98 X10^3/uL (2.7-7.7); Neutrophil % 69.6 % (47-70); Platelet Count 195 K/mm3 (150-450); RBC Distribution Width CV 13.5 % (11.6-14.6); RBC Distribution Width SD 45.5 fl (35.1-43.9); Red Blood Count 4.47 M/mm3 (4.6-6.2)
[2019-04-22 06:41] LABS: Anion Gap 6 (5-15); BUN 12 mg/dL (7-18); BUN/Creat Ratio 10.7 RATIO (10-20); Calcium,Total 8.5 mg/dL (8.5-10.1); Chloride 102 mmol/L (98-107); Creatinine, Serum 1.12 mg/dL (0.70-1.30); EST Glomerular Filtration Rate 69 mL/min (>60); Est Glom Filt Rate - Afr Amer 83 mL/min (>60); Estimated Creatinine Clearance 59.38 ml/min; Glucose 85 mg/dL (74-106); Potassium 3.9 mmol/L (3.5-5.1); Sodium Level 133 mmol/L (136-145)
[2019-04-22 06:56] LABS: Bedside Glucose 86 mg/dL (70-110)
[2019-04-22] MEDS: CARBIDOPA/LEVODOPA 1 EACH CAPSULE.ER 3 EACH PO ×3 (08:49→17:45)
[2019-04-22] MEDS: Amantadine 100 MG Capsule PO ×2 (08:49→13:16)
[2019-04-22 08:50] VITALS: BP 114/69; PULSE 88; RESP 16; TEMP 36.6; O2SAT 97
[2019-04-22] MEDS: Enoxaparin 40 MG/0.4 ML Syringe SC (08:51)
[2019-04-22] MEDS: Senna Tablet 1 TABLET PO ×2 (08:51→21:29)
[2019-04-22] MEDS: Glucerna Shake 120 ML LIQUID PO ×4 (08:55→20:14)
--- NOTE | 2019-04-22 09:36 | CASEMGMT ---
YONATHAN reviewed chart and noted patient is a 2 assist with therapy. YONATHAN met with patient, introduced self and role at [facility]. YONAHTAN asked patient if he felt he needed to go somewhere for rehab at d/c. He said he thinks he is fine for home. He then was getting a phone call. YONATHAN quickly let him know we can set him up with or outpatient therapy if he would like. He then answered his call. YONATHAN and RN WILLIAMS will follow and review his therapy notes. Nelida FRYE MSW
--- NOTE | 2019-04-22 09:50 | PCM.PN.ID ---
Patient Problems: Active and Suspected Problems Severe sepsis (Acute) Cellulitis (Acute) Subjective: Not feeling much better, no fever, no n/v/d. - Physical Exam Vitals/I&O's: Vital Signs Temp Pulse Resp BP Pulse Ox 97.8 F 88 16 114/69 97 04/22/19 08:50 04/22/19 08:50 04/22/19 08:50 04/22/19 08:50 04/22/19 08:50 Oxygen Delivery Method Room Air Weight: 94.3 kg Body Mass Index (BMI) 30.5 Intake and Output for Last 24 Hours 04/20/19 04/21/19 04/22/19 23:59 23:59 23:59 Intake Total 3885.00 / 4105.00 2907.01 / 2907.01 310 / 310 Output Total 975 / 1325 1450 / 1450 500 / 500 Balance 2910.00 / 2780.00 1457.01 / 1457.01 -190 / -190 General: Alert, Cooperative, No apparent distress Lungs: Clear to auscultation, Normal air movement Cardiovascular: Regular rate, Regular Rhythm Abdomen: Soft, Non Tender, Non-Distended Extremities: Edema - RLE Skin: Rash Present - RLE redness slightly improved, still swollen and warm Microbiology Past 72 Hours 04/19/19 12:05 Blood Culture (Wb) - Right Wrist Blood Culture - Preliminary No growth in 48 hours. 04/19/19 11:40 Blood Culture (Wb) - Right Forearm Blood Culture - Preliminary No growth in 48 hours. Laboratory Results 04/21/19 11:57: POC Glucose 74 04/21/19 17:29: POC Glucose 113 H 04/21/19 22:19: POC Glucose 96 04/22/19 05:40: WBC 10.0, RBC 4.47 L, Hgb 13.2, Hct 40.8, MCV 91.3, MCH 29.5, MCHC 32.4, RDW Std Deviation 45.5 H, RDW Coeff of Lexii 13.5, Plt Count 195, MPV 10.6, Immature Gran % (Auto) 0.600, Neut % (Auto) 69.6, Lymph % (Auto) 12.7 L, [place] % (Auto) 13.3 H, Eos % (Auto) 3.3, Baso % (Auto) 0.5, Absolute Neuts (auto) 7.0, Absolute Lymphs (auto) 1.27, Nucleated RBC % 0 04/22/19 05:40: Sodium 133 L, Potassium 3.9, Chloride 102, Carbon Dioxide 25.0, Anion Gap 6, BUN 12, Creatinine 1.12, Estim Creat Clear Calc 59.38, Est GFR (MDRD) Af Amer 83, Est GFR (MDRD) Non-Af 69, BUN/Creatinine Ratio 10.7, Glucose 85, Calcium 8.5, Magnesium 2.0 04/22/19 06:34: POC Glucose 86 Current Medications Acetaminophen (Tylenol) 650 mg PO Q6H PRN PRN PRN Reason: Pain Score 1-10/Temp > 100.7 F Last Admin: 04/20/19 17:55 Dose: 650 mg Documented by: Amantadine HCl (Symmetrel) 100 mg PO 0800,1300 [facility] Last Admin: 04/22/19 08:49 Dose: 100 mg Documented by: Aspirin (Ecotrin) 81 mg PO QHS [facility] Last Admin: 04/21/19 22:15 Dose: 81 mg Documented by: Carbidopa/Levodopa (Sinemet Cr) 1 tablet PO QHS [facility] Last Admin: 04/21/19 22:15 Dose: 1 tablet Documented by: Carbidopa/Levodopa (Rytary Er 36.25 Mg-145 Mg Cap) 3 each PO 0800,1300,1800 [facility] Last Admin: 04/22/19 08:49 Dose: 3 each Documented by: Enoxaparin Sodium (Lovenox) 40 mg SC DAILY [facility] Last Admin: 04/22/19 08:51 Dose: 40 mg Documented by: Glucagon () 1 mg IM .X1 PRN PRN Reason: Hypoglycemia Cefazolin Sodium 2 gm/ Sodium (Chloride) 110 mls @ 150 mls/hr IV Q8 [facility] Last Infusion: 04/22/19 07:24 Dose: Infused Documented by: Dextrose (Dextrose 10%-Water) 250 mls @ 999 mls/hr IV .Q16M PRN; Protocol PRN Reason: HYPOGLYCEMIA Insulin Human Lispro (Humalog Kwikpen (Bkc)) 0 unit SC ACHS [facility]; Protocol Last Admin: 04/22/19 07:00 Dose: Not Given Documented by: Nutritional Formula (Lactose Free) (Glucerna Shake) 120 ml PO 4X/DAY [facility] Last Admin: 04/22/19 08:55 Dose: 120 ml Documented by: Pravastatin Sodium (Pravachol) 20 mg PO DINNER [facility] Last Admin: 04/21/19 17:32 Dose: 20 mg Documented by: Rasagiline (Azilect) 1 mg PO DAILY [facility] Last Admin: 04/22/19 08:51 Dose: 1 mg Documented by: Senna (Senokot) 1 tablet PO BID [facility] Last Admin: 04/22/19 08:51 Dose: 1 tablet Documented by: Sodium Chloride () 10 - 40 ml IV UD PRN PRN Reason: SALINE FLUSH Last Admin: 04/21/19 13:24 Dose: 20 ml Documented by: Tamsulosin HCl (Flomax) 0.4 mg PO QHS [facility] Last Admin: 04/21/19 22:15 Dose: 0.4 mg Documented by: Medical Necessity - Tobacco Use Smoking Status: Never smoker Tobacco Use: Non-smoker Route of nutrition/ use of supplements: [] Nutritional Intake: [] IV Site: [] Vincent Catheter: [] - Assessment/Plan Antibiotics: [] Assessment/Plan: [] Active and Suspected Problems Severe sepsis (Acute) Cellulitis (Acute) severe sepsis due to RLE cellulitis - improving. Wbc now normal, fever resolved, feeling better, bcx neg. Continue cefazolin. No purulence. Will follow
[2019-04-22 11:00] LABS: Bedside Glucose 99 mg/dL (70-110)
[2019-04-22 13:15] VITALS: BP 101/61; PULSE 95; RESP 18; TEMP 36.7; O2SAT 94
--- NOTE | 2019-04-22 13:20 | PN_ITS ---
Patient Problems: Active and Suspected Problems Severe sepsis (Acute) Cellulitis (Acute) Reason for Visit: cellulitis Subjective: leg no change, otherwise feels well. Vitals/I&O's: Vital Signs Temp Pulse Resp BP Pulse Ox 36.7 C 95 18 101/61 94 04/22/19 13:15 04/22/19 13:15 04/22/19 13:15 04/22/19 13:15 04/22/19 13:15 Oxygen Delivery Method Room Air Weight: 94.3 kg Body Mass Index (BMI) 30.5 Intake and Output for Last 24 Hours 04/20/19 04/21/19 04/22/19 23:59 23:59 23:59 Intake Total 3885.00 / 4105.00 2907.01 / 2907.01 550 / 550 Output Total 975 / 1325 1450 / 1450 900 / 900 Balance 2910.00 / 2780.00 1457.01 / 1457.01 -350 / -350 General: Alert, - - up with therapy. Skin: - - slight decrease in erythmea redness on RLE. Psych/Mental Status: Normal Affect, Appropriate Microbiology Past 72 Hours 04/19/19 12:05 Blood Culture (Wb) - Right Wrist Blood Culture - Preliminary No growth in 48 hours. 04/19/19 11:40 Blood Culture (Wb) - Right Forearm Blood Culture - Preliminary No growth in 48 hours. Laboratory Results 04/21/19 17:29: POC Glucose 113 H 04/21/19 22:19: POC Glucose 96 04/22/19 05:40: WBC 10.0, RBC 4.47 L, Hgb 13.2, Hct 40.8, MCV 91.3, MCH 29.5, MCHC 32.4, RDW Std Deviation 45.5 H, RDW Coeff of Lexii 13.5, Plt Count 195, MPV 10.6, Immature Gran % (Auto) 0.600, Neut % (Auto) 69.6, Lymph % (Auto) 12.7 L, [place] % (Auto) 13.3 H, Eos % (Auto) 3.3, Baso % (Auto) 0.5, Absolute Neuts (auto) 7.0, Absolute Lymphs (auto) 1.27, Nucleated RBC % 0 04/22/19 05:40: Sodium 133 L, Potassium 3.9, Chloride 102, Carbon Dioxide 25.0, Anion Gap 6, BUN 12, Creatinine 1.12, Estim Creat Clear Calc 59.38, Est GFR (MDRD) Af Amer 83, Est GFR (MDRD) Non-Af 69, BUN/Creatinine Ratio 10.7, Glucose 85, Calcium 8.5, Magnesium 2.0 04/22/19 06:34: POC Glucose 86 04/22/19 10:56: POC Glucose 99 Current Medications Acetaminophen (Tylenol) 650 mg PO Q6H PRN PRN PRN Reason: Pain Score 1-10/Temp > 100.7 F Last Admin: 04/20/19 17:55 Dose: 650 mg Documented by: Amantadine HCl (Symmetrel) 100 mg PO 0800,1300 [facility] Last Admin: 04/22/19 13:16 Dose: 100 mg Documented by: Aspirin (Ecotrin) 81 mg PO QHS [facility] Last Admin: 04/21/19 22:15 Dose: 81 mg Documented by: Carbidopa/Levodopa (Sinemet Cr) 1 tablet PO QHS [facility] Last Admin: 04/21/19 22:15 Dose: 1 tablet Documented by: Carbidopa/Levodopa (Rytary Er 36.25 Mg-145 Mg Cap) 3 each PO 0800,1300,1800 [facility] Last Admin: 04/22/19 13:15 Dose: 3 each Documented by: Enoxaparin Sodium (Lovenox) 40 mg SC DAILY [facility] Last Admin: 04/22/19 08:51 Dose: 40 mg Documented by: Glucagon () 1 mg IM .X1 PRN PRN Reason: Hypoglycemia Cefazolin Sodium 2 gm/ Sodium (Chloride) 110 mls @ 150 mls/hr IV Q8 [facility] Last Infusion: 04/22/19 07:24 Dose: Infused Documented by: Dextrose (Dextrose 10%-Water) 250 mls @ 999 mls/hr IV .Q16M PRN; Protocol PRN Reason: HYPOGLYCEMIA Insulin Human Lispro (Humalog Kwikpen (Bkc)) 0 unit SC ACHS [facility]; Protocol Last Admin: 04/22/19 10:57 Dose: Not Given Documented by: Nutritional Formula (Lactose Free) (Glucerna Shake) 120 ml PO 4X/DAY [facility] Last Admin: 04/22/19 08:55 Dose: 120 ml Documented by: Pravastatin Sodium (Pravachol) 20 mg PO DINNER [facility] Last Admin: 04/21/19 17:32 Dose: 20 mg Documented by: Rasagiline (Azilect) 1 mg PO DAILY [facility] Last Admin: 04/22/19 08:51 Dose: 1 mg Documented by: Senna (Senokot) 1 tablet PO BID [facility] Last Admin: 04/22/19 08:51 Dose: 1 tablet Documented by: Sodium Chloride () 10 - 40 ml IV UD PRN PRN Reason: SALINE FLUSH Last Admin: 04/21/19 13:24 Dose: 20 ml Documented by: Tamsulosin HCl (Flomax) 0.4 mg PO QHS [facility] Last Admin: 04/21/19 22:15 Dose: 0.4 mg Documented by: STROKE Vital Signs/Narrative: Vital Signs Temp Pulse Resp BP Pulse Ox 04/22/19 13:15 36.7 C 95 18 101/61 94 Medical Necessity - Tobacco Use Smoking Status: Never smoker Tobacco Use: Non-smoker Assessment/Plan All Active Problems Severe sepsis (Acute) Cellulitis (Acute) 1. severe sepsis * POA. 2/2 RLE cellulitis * repeat lactate finally trending down * tachycardia improved, though tachypneic. * per current hospital guidelines, patient required ICU monitoring while severe sepsis. Now that no longer severe sepsis, will transfer to medical surgical unit. * BCx pending 2. RLE cellulitis * minimal improvement * cefazolin * ID following 3. DM2 * fair control * on SSI * metformin held given lactic acidosis 4. Parkinson's disease * continue carb/levo, amantadine * follow up with neurology as outpt 5. VTE prophylaxis: LMWH. Inpatient E&M: 30969 [facility] L[facility]
[2019-04-22 16:38] VITALS: BP 127/74; PULSE 79; RESP 14; TEMP 36.4; O2SAT 98
[2019-04-22 17:20] LABS: Bedside Glucose 94 mg/dL (70-110)
[2019-04-22] MEDS: Pravastatin 20 MG Tablet PO (17:44)
[2019-04-22 21:00] VITALS: BP 123/74; PULSE 88; RESP 18; TEMP 36.4; O2SAT 97
[2019-04-22] MEDS: Aspirin E.C. 81 MG Tablet PO (21:28)
[2019-04-22] MEDS: Tamsulosin HCl 0.4 MG Capsule PO (21:29)
[2019-04-22] MEDS: CARBIDOPA/LEVODOPA CR 50/200 Tablet PO (21:29)
[2019-04-22 21:50] LABS: Bedside Glucose 126 mg/dL (70-110)
[2019-04-23 03:34] VITALS: BP 108/75; PULSE 83; RESP 17; TEMP 36.3; O2SAT 98
[2019-04-23] MEDS: 0.9% Saline Lock 10 ML Syringe IV ×2 (05:12→14:03)
[2019-04-23] MEDS: Cefazolin 2 GM in 0.9% Normal Saline 100 ML IV ×2 (05:12→14:09)
[2019-04-23 06:56] LABS: Bedside Glucose 86 mg/dL (70-110)
[2019-04-23 08:36] VITALS: BP 111/75; PULSE 84; RESP 16; TEMP 36.4; O2SAT 96
[2019-04-23] MEDS: Senna Tablet 1 TABLET PO (08:39)
[2019-04-23] MEDS: Amantadine 100 MG Capsule PO ×2 (08:39→14:02)
[2019-04-23] MEDS: Glucerna Shake 120 ML LIQUID PO ×2 (08:39→14:02)
[2019-04-23] MEDS: Enoxaparin 40 MG/0.4 ML Syringe SC (08:39)
[2019-04-23] MEDS: CARBIDOPA/LEVODOPA 1 EACH CAPSULE.ER 3 EACH PO ×2 (08:40→14:02)
--- NOTE | 2019-04-23 08:53 | NURSING ---
Offered pt to sit in chair for breakfast, pt refused. Will after breakfast.
--- NOTE | 2019-04-23 09:19 | NURSING ---
Assisted to bathroom x2 at this time. Bed linen changed.
[2019-04-23 11:31] LABS: Bedside Glucose 89 mg/dL (70-110)
--- NOTE | 2019-04-23 11:36 | CASEMGMT ---
This RN CM to room to discuss discharge plan and pt states that he would like OP PT set up at [facility] at discharge. Script obtained and signed at this time and faxed to [facility]. Original to pt and copy to chart at this time. Pt voices no further questions/concerns/needs at this time. Pt awaiting Dr. Rosenthal at this time. SStkamron MARTINEZ CM
--- NOTE | 2019-04-23 14:12 | DCINST_ITS ---
- Discharge Diagnoses Current Active Problems: Current Active and Chronic Problems Severe sepsis (Acute) HTN (hypertension) (Chronic) HLD (hyperlipidemia) (Chronic) BPH (benign prostatic hyperplasia) (Chronic) Cellulitis (Acute) You will use the following diet at home:: No restrictions Your food should be the consistency of: Regular Discharge Activity: Return to Normal Activity Call your doctor if your incision/area has: Increased Pain/ Swelling, Increased Redness Call your doctor if you observe: Fever of 101 or Higher Allergies/Adverse Reactions: Allergies Penicillins [PCN] Allergy (Verified 04/19/19 11:34) Unknown tetanus and diphtheria toxoids Allergy (Verified 04/19/19 14:22) Unknown Medications to take at Discharge Amantadine [Symmetrel] 100 mg PO BID 10/24/17 Aspirin E.C. [Ecotrin] 81 mg PO QHS 10/24/17 Lisinopril [Zestril] 10 mg PO DAILY 10/24/17 Pravastatin Sodium [Pravachol] 20 mg PO QHS 10/24/17 Rasagiline Mesylate [Azilect] 1 tab PO DAILY 10/24/17 Senna [Senokot] 1 tablet PO BID 10/24/17 Tamsulosin HCl [Flomax] 0.4 mg PO DAILY 10/24/17 metFORMIN HCl [Glucophage] 500 mg PO BIDCM 10/24/17 Carbidopa/Levodopa [Carbidopa-Levo ER 50-200 Tab] 1 tab PO QHS 04/19/19 Carbidopa/Levodopa [Rytary ER 36.25 mg-145 mg Cap] 3 cap PO TID 04/19/19 Cephalexin [Keflex] 500 mg PO Q8 #15 cap 04/23/19 The following prescriptions were given: Cephalexin [Keflex] 500 mg PO Q8 #15 cap Transmission Status: Pending to [facility]/pharmacy #[id number] Primary Care Physician: Jaiden Rivera MD [Primary Care Provider] - Within 2 Weeks Test Results: Test results from this visit will be discussed in further detail at your follow- up appointment, if applicable. Proposed Discharge Date: 04/23/19
--- NOTE | 2019-04-23 14:16 | PCM.DC.SUM ---
Discharge Date and Diagnosis - Problem List Patient Problems: Active and Suspected Problems Severe sepsis (Acute) Cellulitis (Acute) Date of Admission: 04/19/19 Date of Discharge: 04/23/19 - Primary Discharge Diagnosis Active and Suspected Problems Severe sepsis (Acute) Cellulitis (Acute) - Secondary Discharge Diagnosis Chronic Problems HTN (hypertension) (Chronic) HLD (hyperlipidemia) (Chronic) BPH (benign prostatic hyperplasia) (Chronic) Parkinson disease (Chronic) DMII (diabetes mellitus, type 2) (Chronic) Hospital Course and Treatment Chun: RUT Rosenthal: SAMY Operations: None Procedures: None Summary of Care Provided: The patient is a 68 year old M Presents with a right lower extremity cellulitis. Patient was in severe sepsis with a lactic acid of 2.5. Given the current pulse it was a [facility] where severe sepsis needs to go to the ICU patient was admitted to the ICU and was monitored there. Patient was monitored there until the fourth as he still had continued lactic acidosis on the third. Subsequent lactic acid came back at 1.4. Patient did remain stable throughout hospitalization. Patient was started on Ancef plus vancomycin. With the erythema. Factious disease was consulted. Antibiotics were changed back to Ancef and patient continued to improve. Today, patient was seen by infectious disease and recommended to complete a 5-day course of cephalexin 500 mg 3 times daily. Patient has Parkinson's disease and will be following up with outpatient physical therapy.[] Patient Problems: Active and Suspected Problems Severe sepsis (Acute) Cellulitis (Acute) - Physical Exam Vitals/I&O's: Vital Signs Temp Pulse Resp BP Pulse Ox 36.4 C L 84 16 111/75 96 04/23/19 08:36 04/23/19 08:36 04/23/19 08:36 04/23/19 08:36 04/23/19 08:36 Oxygen Delivery Method Room Air Weight: 93.4 kg Body Mass Index (BMI) 30.5 Intake and Output for Last 24 Hours 04/21/19 04/22/19 04/23/19 23:59 23:59 23:59 Intake Total 2907.01 / 2907.01 1352 / 1352 230 / 230 Output Total 1450 / 1450 1675 / 1675 600 / 600 Balance 1457.01 / 1457.01 -323 / -323 -370 / -370 General: Alert, No apparent distress Skin: - - Resolving erythema of the right lower extremity. Still red at the distal portion of the yates but is withdrawn from the line of demarcation around his knee. Still has some patchy macular rash on his distal thigh but appears to be less intense. Psych/Mental Status: Normal Affect, Appropriate Microbiology Past 72 Hours 04/19/19 12:05 Blood Culture (Wb) - Right Wrist Blood Culture - Preliminary No growth in 48 hours. 04/19/19 11:40 Blood Culture (Wb) - Right Forearm Blood Culture - Preliminary No growth in 48 hours. Laboratory Results 04/22/19 16:38: POC Glucose 94 04/22/19 21:27: POC Glucose 126 H 04/23/19 06:41: POC Glucose 86 04/23/19 11:25: POC Glucose 89 Current Medications Acetaminophen (Tylenol) 650 mg PO Q6H PRN PRN PRN Reason: Pain Score 1-10/Temp > 100.7 F Last Admin: 04/20/19 17:55 Dose: 650 mg Documented by: Amantadine HCl (Symmetrel) 100 mg PO 0800,1300 [facility] Last Admin: 04/23/19 14:02 Dose: 100 mg Documented by: Aspirin (Ecotrin) 81 mg PO QHS [facility] Last Admin: 04/22/19 21:28 Dose: 81 mg Documented by: Carbidopa/Levodopa (Sinemet Cr) 1 tablet PO QHS [facility] Last Admin: 04/22/19 21:29 Dose: 1 tablet Documented by: Carbidopa/Levodopa (Rytary Er 36.25 Mg-145 Mg Cap) 3 each PO 0800,1300,1800 [facility] Last Admin: 04/23/19 14:02 Dose: 3 each Documented by: Enoxaparin Sodium (Lovenox) 40 mg SC DAILY [facility] Last Admin: 04/23/19 08:39 Dose: 40 mg Documented by: Glucagon () 1 mg IM .X1 PRN PRN Reason: Hypoglycemia Cefazolin Sodium 2 gm/ Sodium (Chloride) 110 mls @ 150 mls/hr IV Q8 [facility] Last Admin: 04/23/19 14:09 Dose: 150 mls/hr Documented by: Dextrose (Dextrose 10%-Water) 250 mls @ 999 mls/hr IV .Q16M PRN; Protocol PRN Reason: HYPOGLYCEMIA Insulin Human Lispro (Humalog Kwikpen (Bkc)) 0 unit SC ACHS [facility]; Protocol Last Admin: 04/23/19 11:41 Dose: Not Given Documented by: Nutritional Formula (Lactose Free) (Glucerna Shake) 120 ml PO 4X/DAY [facility] Last Admin: 04/23/19 14:02 Dose: 120 ml Documented by: Pravastatin Sodium (Pravachol) 20 mg PO DINNER [facility] Last Admin: 04/22/19 17:44 Dose: 20 mg Documented by: Rasagiline (Azilect) 1 mg PO DAILY [facility] Last Admin: 04/23/19 08:40 Dose: 1 mg Documented by: Senna (Senokot) 1 tablet PO BID [facility] Last Admin: 04/23/19 08:39 Dose: 1 tablet Documented by: Sodium Chloride () 10 - 40 ml IV UD PRN PRN Reason: SALINE FLUSH Last Admin: 04/23/19 14:03 Dose: 10 ml Documented by: Tamsulosin HCl (Flomax) 0.4 mg PO QHS [facility] Last Admin: 04/22/19 21:29 Dose: 0.4 mg Documented by: Discharge Diet: No Restrictions Discharge Activity: Return to Normal Activity Call your doctor if your incision/area has: Increased Pain/ Swelling, Increased Redness Call your doctor if you observe: Fever of 101 or Higher Home Medications: Medications to take at Discharge Amantadine [Symmetrel] 100 mg PO BID 10/24/17 Aspirin E.C. [Ecotrin] 81 mg PO QHS 10/24/17 Lisinopril [Zestril] 10 mg PO DAILY 10/24/17 Pravastatin Sodium [Pravachol] 20 mg PO QHS 10/24/17 Rasagiline Mesylate [Azilect] 1 tab PO DAILY 10/24/17 Senna [Senokot] 1 tablet PO BID 10/24/17 Tamsulosin HCl [Flomax] 0.4 mg PO DAILY 10/24/17 metFORMIN HCl [Glucophage] 500 mg PO BIDCM 10/24/17 Carbidopa/Levodopa [Carbidopa-Levo ER 50-200 Tab] 1 tab PO QHS 04/19/19 Carbidopa/Levodopa [Rytary ER 36.25 mg-145 mg Cap] 3 cap PO TID 04/19/19 Cephalexin [Keflex] 500 mg PO Q8 #15 cap 04/23/19 Following Prescrptions Were Given to Patient: Cephalexin [Keflex] 500 mg PO Q8 #15 cap Transmission Status: Pending to [facility]pharmacy #[id number] Primary Care Physician: Jaiden Rivera MD [Primary Care Provider] - Within 2 Weeks Disposition: Home Minutes spent on discharge:: 32 Patient Condition:: Good Medical Necessity - Tobacco Use Smoking Status: Never smoker Tobacco Use: Non-smoker Meaningful Use Info Meaningful Use Diagnoses (Choose all that apply): None applicable Inpatient E&M: 55081 [facility]
--- NOTE | 2019-04-23 14:34 | PCM.PN.ID ---
Patient Problems: Active and Suspected Problems Severe sepsis (Acute) Cellulitis (Acute) Subjective: Feeling better, no fever, no n/v/d, leg less red - Physical Exam Vitals/I&O's: Vital Signs Temp Pulse Resp BP Pulse Ox 97.6 F L 84 16 111/75 96 04/23/19 08:36 04/23/19 08:36 04/23/19 08:36 04/23/19 08:36 04/23/19 08:36 Oxygen Delivery Method Room Air Weight: 93.4 kg Body Mass Index (BMI) 30.5 Intake and Output for Last 24 Hours 04/21/19 04/22/19 04/23/19 23:59 23:59 23:59 Intake Total 2907.01 / 2907.01 1352 / 1352 230 / 230 Output Total 1450 / 1450 1675 / 1675 600 / 600 Balance 1457.01 / 1457.01 -323 / -323 -370 / -370 General: Alert, Cooperative, No apparent distress Lungs: Clear to auscultation, Normal air movement Cardiovascular: Regular rate, Regular Rhythm Abdomen: Soft, Non Tender, Non-Distended Skin: - - RLE much less red, still edema Microbiology Past 72 Hours 04/19/19 12:05 Blood Culture (Wb) - Right Wrist Blood Culture - Preliminary No growth in 48 hours. 04/19/19 11:40 Blood Culture (Wb) - Right Forearm Blood Culture - Preliminary No growth in 48 hours. Laboratory Results 04/22/19 16:38: POC Glucose 94 04/22/19 21:27: POC Glucose 126 H 04/23/19 06:41: POC Glucose 86 04/23/19 11:25: POC Glucose 89 Current Medications Acetaminophen (Tylenol) 650 mg PO Q6H PRN PRN PRN Reason: Pain Score 1-10/Temp > 100.7 F Last Admin: 04/20/19 17:55 Dose: 650 mg Documented by: Amantadine HCl (Symmetrel) 100 mg PO 0800,1300 [facility] Last Admin: 04/23/19 14:02 Dose: 100 mg Documented by: Aspirin (Ecotrin) 81 mg PO QHS [facility] Last Admin: 04/22/19 21:28 Dose: 81 mg Documented by: Carbidopa/Levodopa (Sinemet Cr) 1 tablet PO QHS [facility] Last Admin: 04/22/19 21:29 Dose: 1 tablet Documented by: Carbidopa/Levodopa (Rytary Er 36.25 Mg-145 Mg Cap) 3 each PO 0800,1300,1800 [facility] Last Admin: 04/23/19 14:02 Dose: 3 each Documented by: Enoxaparin Sodium (Lovenox) 40 mg SC DAILY [facility] Last Admin: 04/23/19 08:39 Dose: 40 mg Documented by: Glucagon () 1 mg IM .X1 PRN PRN Reason: Hypoglycemia Cefazolin Sodium 2 gm/ Sodium (Chloride) 110 mls @ 150 mls/hr IV Q8 [facility] Last Admin: 04/23/19 14:09 Dose: 150 mls/hr Documented by: Dextrose (Dextrose 10%-Water) 250 mls @ 999 mls/hr IV .Q16M PRN; Protocol PRN Reason: HYPOGLYCEMIA Insulin Human Lispro (Humalog Kwikpen (Bkc)) 0 unit SC ACHS [facility]; Protocol Last Admin: 04/23/19 11:41 Dose: Not Given Documented by: Nutritional Formula (Lactose Free) (Glucerna Shake) 120 ml PO 4X/DAY [facility] Last Admin: 04/23/19 14:02 Dose: 120 ml Documented by: Pravastatin Sodium (Pravachol) 20 mg PO DINNER [facility] Last Admin: 04/22/19 17:44 Dose: 20 mg Documented by: Rasagiline (Azilect) 1 mg PO DAILY [facility] Last Admin: 04/23/19 08:40 Dose: 1 mg Documented by: Senna (Senokot) 1 tablet PO BID [facility] Last Admin: 04/23/19 08:39 Dose: 1 tablet Documented by: Sodium Chloride () 10 - 40 ml IV UD PRN PRN Reason: SALINE FLUSH Last Admin: 04/23/19 14:03 Dose: 10 ml Documented by: Tamsulosin HCl (Flomax) 0.4 mg PO QHS [facility] Last Admin: 04/22/19 21:29 Dose: 0.4 mg Documented by: Medical Necessity - Tobacco Use Smoking Status: Never smoker Tobacco Use: Non-smoker Route of nutrition/ use of supplements: [] Nutritional Intake: [] IV Site: [] Vincent Catheter: [] - Assessment/Plan Antibiotics: [] Assessment/Plan: [] Active and Suspected Problems Severe sepsis (Acute) Cellulitis (Acute) severe sepsis due to RLE cellulitis - improving. Wbc now normal, fever resolved, feeling better, bcx neg. On cefazolin. No purulence. Ok for d/c home on keflex for 5 more days Will follow
[2019-04-23 16:00] VITALS: BP 119/83; PULSE 100; RESP 20; TEMP 36.8; O2SAT 98
== END 2019-04-23 16:22 | disposition home or self-care (01) | DRG 872 ==
LOC: ED 13:57 → ICU 14:15 → PCU 04-22 07:33
PROVIDERS: Nurse Practitioner Family; Admitting Provider Family Medicine; Emergency Provider Emergency Medicine; PCP Family Medicine
DX: A41.9 Sepsis, unspecified organism (principal); L03.115 Cellulitis of right lower limb; N17.9 Acute kidney failure, unspecified; R65.20 Severe sepsis without septic shock; G20 Parkinson's disease; N40.0 Benign prostatic hyperplasia without lower urinary tract symptoms; E78.5 Hyperlipidemia, unspecified; N18.3 Chronic kidney disease, stage 3 (moderate); Z23 Encounter for immunization; E11.22 Type 2 diabetes mellitus with diabetic chronic kidney disease; Z79.84 Long term (current) use of oral hypoglycemic drugs
CPT/HCPCS: 36415; 80048; 80053; 82550; 82962; 83605; 83735; 85025; 85027; 85610; 85730; 87040; 93005; 97110; 97116; 97163; 97167; 97530; 97535; 97802; 99285; G0008; J7030; 90686; A4216

== ENCOUNTER → 2019-10-07 10:37 | Outpatient (CLI) | payer MEDICARE, OTHER, SELFPAY ==
[2019-04-19 14:50] VITALS: BMI 30.5
[2019-10-07 13:07] LABS: ALB/GLOB Ratio 0.8 RATIO (0.9-2.4); AST(SGOT) 11 U/L (15-37); Alanine Aminotransfer ALT/SGPT 9 U/L (16-61); Albumin, Serum 3.1 g/dL (3.2-5.0); Alkaline Phosphatase 81 U/L (45-117); Anion Gap 5 (5-15); BUN 12 mg/dL (7-18); BUN/Creat Ratio 9.9 RATIO (10-20); Calcium,Total 8.9 mg/dL (8.5-10.1); Chloride 103 mmol/L (98-107); Cholesterol 110 mg/dL (200); Creatinine, Serum 1.21 mg/dL (0.70-1.30); EST Glomerular Filtration Rate 63 mL/min (>60); Est Glom Filt Rate - Afr Amer 76 mL/min (>60); Globulin 4.1 g/dL (2.2-4.2); Glucose 96 mg/dL (74-106); High Density Lipoprotein 54 mg/dL; Potassium 3.9 mmol/L (3.5-5.1); Protein, Total 7.2 g/dL (6.4-8.2); Sodium Level 135 mmol/L (136-145); Triglycerides 68 mg/dL; Very Low Density Lipoprotein 14 mg/dL (5-40)
== END ==
PROVIDERS: PCP Family Medicine; Referring Provider Family Medicine; Visit Provider Family Medicine
DX: I10 Essential (primary) hypertension (principal)
CPT/HCPCS: 36415; 80053; 80061

== ENCOUNTER 2019-10-28 14:48 | Emergency (ER) | payer MEDICARE, OTHER, SELFPAY ==
[2019-04-19 14:50] VITALS: BMI 30.5
[2019-10-28 14:50] VITALS: BP 135/80; PULSE 99; RESP 17; TEMP 35.7; O2SAT 99; BMI 30.4
[2019-10-28 14:52] VITALS: O2SAT 99
--- NOTE | 2019-10-28 15:14 | ED.DCSUM_ITS ---
History of Present Illness Chief Complaint: Fall Narrative: Patient presented secondary to a fall with chest injury. Patient's has a underlying history of Parkinson's. He intermittently suffers from falls. He states that yesterday lost his balance and struck his posterior right chest against a ottoman. He denies hitting his head or loss of consciousness. He reports a moderate amount of pain worse with movement and palpation. No shortness of breath. Patient is not on any sort of anticoagulants. Past Medical History - Allergies and Home Meds Allergies/Adverse Reactions: Allergies Penicillins [PCN] Allergy (Verified 10/28/19 14:50) Unknown tetanus and diphtheria toxoids Allergy (Verified 10/28/19 14:50) Unknown Primary Care Physician: Jaiden Rivera MD [Primary Care Provider] - Past Medical History: - - Parkinson's disease Surgical History: no surgical history Smoking Status: Never smoker - Family History Maternal Family History: Reports: - - Denies known paternal medical history including cardiac history. Paternal Family History: Reports: - - Denies known paternal medical history including cardiac history. Review of Systems All systems negative except as indicated General: Denies: Chills, Fever, Sweats Eyes: Denies: Visual changes - bilaterally, Diplopia ENT: Denies: Rhinorrhea, Sore throat Cardiovascular: Reports: Chest pain Respiratory: Denies: Dyspnea, Cough, Dyspnea on exertion Gastrointestinal: Denies: Abdominal pain, Nausea, Vomiting, Diarrhea, Melena, Hematochezia Genitourinary: Denies: Dysuria, Hematuria, Frequency Musculoskeletal: Denies: Back pain, Extremity Pain Skin: Denies: Rash, Wounds Neurological: Denies: Headache, Weakness, Numbness Physical Exam Vital Signs/Narrative: Vital Signs Temp Pulse Resp BP Pulse Ox 10/28/19 14:52 99 10/28/19 14:50 96.3 F L 99 17 135/80 H 99 Inital Vital Signs reviewed: Yes General: Well nourished, Well developed, - - Airways patent, breath sounds equal bilateral, peripheral pulses 2+ and symmetric. GCS 15 out of 15. Head: Normocephalic, Atraumatic Eyes: Perrl, EOMI ENT: TM's clear, No hemotympanum or drainage, No trauma Neck: Nontender, Full ROM. Negative for: Spinal Tenderness, Paraspinal Tenderness Cardiovascular: Regular rate, Regular rhythm, No murmurs, - - 2+ radial pulses Respiratory: No distress, CTA bilaterally, Chest nontender, - - Pectus excavatum is noted. Patient has pain over the right scapula and inferior to that without any evidence of crepitus step-off deformity or flail chest. Normal chest e xcursion. Abdomen: Soft, Nontender, Nondistended, Normal bowel sounds Back: Nontender Skin: Normal color, No rash Neurological: Alert, Oriented x3, Cranial nerves II-XII grossly intact, Normal Strength, Normal Sensation, - - Baseline parkinsonian tremor is noted Psychological: Normal affect Diagnostic/Tx/Re-eval - Medical Decision Making Patient presented for evaluation secondary to mechanical fall. Primary and secondary surveys showed only injuries to the patient's posterior chest wall on the right. Rib radiographs were obtained. By my personal review these show evidence of 3 rib fractures, no evidence of pneumothorax. Patient was given tramadol and a lidocaine patch. Patient is oxygenating normally, although he does have 3 rib fractures and is 68 I do not feel that he meets admission criteria at this point. He was educated on signs and symptoms for which to return. He was given an incentive spirometer. Will be discharged with a course of tramadol, lidocaine patches. I did instruct him that he needs to follow-up with primary care within the next 5 to 7 days. ED Disposition - Plan for ED Patient: Disposition: Home or Assisted Living Diagnosis: Fracture of rib of right side Instructions: ED Rib Fx Prescriptions: Lidocaine [Lidoderm] 1 ea TP DAILY #14 adh..patch Prescription Printed traMADol [Ultram] 50 mg PO Q4H PRN PRN 3 Days #20 tab PRN Reason: Pain Prescription Printed Referrals: Jaiden Rivera MD [Primary Care Provider] - 5-7 Days
--- NOTE | 2019-10-28 15:30 | RAD_ITS ---
STUDY: X-RAY - UNILATERAL RIBS ( RIGHT ) WITH CHEST REASON FOR EXAM: Male, 68 years old. Fall TECHNIQUE - RIBS: 4 view(s) of the ribs. TECHNIQUE - CHEST: Frontal view COMPARISON: None. FINDINGS - RIBS: There are fractures of the right seventh, eighth and ninth ribs. There are no additional fractures identified. FINDINGS - CHEST: The lungs are clear. There are no pleural effusions. There is no pneumothorax. The heart is normal in size. RAD/Ribs Uni Min 3V w/PA Chest IMPRESSION: RIBS: Fractures of the right seventh, eighth and ninth ribs. CHEST: Clear lungs. No pneumothorax. Electronically Signed: Estiven Lam, at 16:19 EDT Tel , Service support ,
[2019-10-28] MEDS: traMADol 50 MG Tablet PO (16:01)
[2019-10-28] MEDS: Lidocaine 5% Patch 1 PATCH TOPICAL (16:02)
[2019-10-28 16:22] VITALS: PULSE 97; RESP 17; O2SAT 98
--- NOTE | 2019-10-28 18:29 | ED.DCSUM_ITS ---
- ER Visit Summary Date of Service: 10/28/19 Chief Complaint: [] History of Present Illness: The patient is a 68 M [] Physical Examination: [] Test Results: [] Emergency Department Course and Treatment: [] Treatment Plan: [] Disposition: [] Impression: [] This note was generated with [employer] dictation software. It may contain incorrect words, spelling, and punctuation that were not noted in review of the chart prior to signing ED Disposition - Plan for ED Patient: Disposition: Home or Assisted Living Diagnosis: Fracture of rib of right side Instructions: ED Rib Fx Prescriptions: Lidocaine [Lidoderm] 1 ea TP DAILY #14 adh..patch Prescription Printed Hydrocodone Bitart/Apap 5-325 [Hamilton 5MG-325MG] 1 tablet PO Q6H PRN PRN #20 tablet PRN Reason: Pain Transmission Status: Received by [id number] traMADol [Ultram] 50 mg PO Q4H PRN PRN 3 Days #20 tab PRN Reason: Pain Prescription Printed Referrals: Jaiden Rivera MD [Primary Care Provider] - 5-7 Days
== END 2019-10-28 16:23 | disposition home or self-care (01) ==
PROVIDERS: Emergency Provider Emergency Medicine; PCP Family Medicine
DX: S22.41XA Multiple fractures of ribs, right side, initial encounter for closed fracture (principal); G20 Parkinson's disease; W19.XXXA Unspecified fall, initial encounter; Z79.82 Long term (current) use of aspirin; Z79.899 Other long term (current) drug therapy
CPT/HCPCS: 71101; 99283

== ENCOUNTER → 2020-03-08 13:07 | Outpatient (CLI) | payer MEDICARE, OTHER, SELFPAY ==
--- NOTE | 2020-03-10 19:55 | ST.MBS ---
Modified Barium Swallow - Patient Information Study Date: 03/08/20 Study Time: 13:30 Direct Billable Minutes: 75 Total Minutes procedure & reportin Diagnosis: Dysphagia (R13.12) Referring Physician: Jaiden Rivera Reason for Referral: The patient is a 69 year old male referred for a modified barium swallow (MBS) study to objectively assess the patients oropharyngeal swallow function under fluoroscopy due to concerns for dysphagia secondary to the diagnosis of Parkinson?s disease. Medical History: Parkinson?s disease, hypertension, hyperlipidemia, benign prostrate hyperplasia, type II diabetes mellitus. - Penetration-Aspiration Scale Penetration-Aspiration Scale: PENETRATION / ASPIRATION SCALE (DENNIS): 1 = does not enter airway 2 = enters airway/above vocal folds/ejected 3 = enters airway/above vocal folds/not ejected 4 = enters airway/contacts vocal folds/ejected 5 = enters airway/contacts vocal folds/not ejected 6 = enters airway/below vocal folds/ejected 7 = enters airway/below vocal folds/not ejected despite effort 8 = enters airway/below vocal folds/no effort PENETRATION / ASPIRATION SCALE (SCORE): Thin liquid - 5 mL tsp.: 1 Thin liquids via cup: 1 Thin liquids via cup: 1 Thin liquids via cup: 1 Thin liquids via cup (sequential): 2 Pudding via spoon: 1* Thin liquids via cup: 1 Solid textures (Neris Doone): 1 Thin liquids via straw (sequential): 1 Solid textures (Hamburger): spit out* - Oral Phase Labial Seal: No Labial Escape Tongue Control During Bolus Hold: Cohesive bolus between tongue to palatal seal Bolus Preparation/Mastication: Slow prolonged chewing/mashing with complete recollection Bolus Transport/Lingual Motion: Delayed initiation of tongue motion Oral Residue: Trace residue lining oral structures - Pharyngeal Phase Initiation of Pharyngeal Swallow: Bolus head in valleculae Soft Palate Elevation: No bolus between soft palate and pharyngeal wall Laryngeal Elevation: Partial superior movement thyroid cart/partial apprx aryt-epig petiole Anterior Hyoid Excursion: Partial anterior movement Epiglottic Movement: Partial inversion Laryngeal Vestibule Closure at Height of Swallow: Incomplete; narrow column of air/contrast in laryngeal vestibule Pharyngeal Stripping Wave: Present - diminished Tongue Base Retraction: Wide column of contrast between tongue base & post. pharyngeal wall Pharyngeal Residue: Collection of residue within or on pharyngeal structures - Diagnosis/Impression Diagnosis: Dysphagia (R13.12) Impression: The patient presents with mild oropharyngeal dysphagia (DSRS: 2; BRS: 2) with intermittent transient and shallow penetration during ingestion of thin liquids secondary to the diagnosis of Parkinson?s disease His strong gag reflex that was elicited during trials of pudding textures and later during trials of a hamburger coated with barium left many questions remaining, as this response was not consistent, with a lack of consistency also appreciated outside of the current assessment (can occur with solids and semisolids, though can tolerate with varying degrees of success). His gag reflex was initiated well prior to transition of the bolus to the posterior oral cavity, with no premature bolus loss associated with events. He does report that he was placed on Rytary around the same timeframe that his gagging symptoms appeared (~1 month), though not directly correlated with initiation. Images do suggest an oral phase swallow onset delay during initial trials, though this is due to communication difficulties during the assessment (continued holding the bolus after the initial ?controlled bolus hold? trial). There is also noted discoordinated lingual movements that appear during ?gagging? episodes with the bolus in the anterior oral cavity. His oral preparation and transition is otherwise functional. There is a mild reduction in hyolaryngeal excursion and duration, though he maintained sufficient / consistent laryngeal vestibule pressure generated to expel penetrated material. There is also pharyngeal retention within the valleculae during consumption of semisolid and solid textures, along with a reduction in reduced pharyngoesophageal segment relaxation, narrowing the diameter of the upper esophageal sphincter. His pharyngeal phase is otherwise functional. - Recommendations Comment: DIET TEXTURE RECOMMENDATIONS: regular easy to chew textured (IDDSI: 7), thin liquid diet (IDDSI: 0) RECOMMENDED COMPENSATORY STRATEGIES: consider cutting tougher textures into bite sized pieces, reduced bolus volume, liquid chaser at reasonable intervals, seated upright at 90 degrees during PO intake, remain upright for 30-60 minutes post meal (GERD precaution) Recommend Repeat Modified Barium Swallow: TBD Need for Skilled Speech Therapy Services: Yes Education Completed: 1. Described result of evaluation., 2. Pt understands evaluation & agrees with goals and treatment plan. - Image Count: 2,129 - Status Active ST Patient: Not Active - Contact Information [facility] Speech Therapy:: Reji Rodas M.A., CCC-INDUSTRIAL MACHINE ASSEMBLER, CBIS MBSImP Certified, LSVT Certified [facility] Speech-Language Pathology Department Email: [email or web address]
== END ==
PROVIDERS: PCP Family Medicine; Referring Provider Family Medicine; Visit Provider Family Medicine
DX: R13.10 Dysphagia, unspecified (principal)
CPT/HCPCS: 74230; 92611

== ENCOUNTER 2020-04-10 13:30 | Outpatient (RCR) | payer MEDICARE, OTHER, SELFPAY ==
--- NOTE | 2019-11-23 14:16 | HP.PTEVAL ---
Patient's Visit Information KATHARINE WATTS is a 68 year old M referred to Physical Therapy by Dr. Jaiden Rivera MD with a diagnosis of Repeated Falls with PD. Date of Evaluation: 11/23/19 Physical Therapist: BRITTNEY Baldwin - Visit Plan Frequency: 2x /Week Duration: 6 Weeks Plan: 2X/ week for 6 weeks for standing static and dynamic balance, gait training, gastroc stretching, safety for turning 180 degrees, backing up to chair before sitting down, with HEP. - Subjective Pt fell and broke 3 ribs a 3 weeks ago. He was standing and making sure he was fine and had his balance and not sure what happened but he found himself hitting the ottamin and the floor. Not sure what happened. One week ago he was walking around the dog in a dark room and fell back and lost his balance. He hurt his back but it is getting better. He does not use the walker in the house but now he is going to... starting now. In the last 3 years he has fallen 12 times but he learned how to fall in the [employer] and has not hurt himself... he has gotten ro. He was doing some online DTD courses for about 3 weeks and has not done anything since and that has been about 4 months. He is having trouble with smiling, no freezing but just trouble with mobility. They switched his meds....and now he has good control. 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 He is not having slight trouble in and out of bed with the ribs but not trouble before that. 2 steps to get into house with railing and grab bars with no trouble doing that. He has a walk in shower. He can not get up from the floor when he falls if he can get traction. Sit to stand: use the arms to get up. Balance: rates as non existant. He has heel lifts on his orthotics due to tight achilles. Awhile ago pt had pain in his heel and was put in a boot and on way out of his office he heard a pop... a few months before that he had meds that attacked tendons and they think that it what happened and why his heel cords are so tight. - Pain R side back pain Pain Intensity (Out of 10): 4 Ribs Pain Intensity (Out of 10): 0 - Objective Gait: Walks with a front wheeled walker, with super fast speed ( needs verbal cues to slow down and control gait) with occ catching of L foot on the ground which does throw pts momentum off with gait. He walks on his toes and can not walk with good heel to toe gait pattern. He is able to walk with 2 therapists with CGA (due to safety with catching his toe on the ground) 100 feet. He turns very slow with multiple mini steps to turn and does not advance his L foot like he should and because he does not move this L foot he puts himself at risk for a fall. Sit to stand: He uses his UE to get out of the chair but he pushes his knees into the chiar or loses his balance bw almlost everytime he gets out of the chair. Safety: He does not turn his walker around and back into the chair... he steps outside of his walker and reaches for the chair rails. Standing balance: first standing balance is retro most of the time and he uses an extenrnal support to steady himself. He is able to stand for 30 seconds but head turns do cause him to upset his balance... at times he does catch himself. B heel cords are extremely tight.. unable to passivly get to a neutral foot. TU.34 seconds. LE MMT: B hip flex 4+/5, Hip abd B 4-/5, B knee flex and knee ext 4/5. Pt is able to heel raise. He is unable to DF his foot due to muscle length/tendon shortening... he everts his foot when asked to DF - Goals Goal 1:: I HEP Goal Time Frame: 4-6 Weeks Goal 2:: Increase TUG to 35 seconds to decrease fall risk Goal Time Frame: 4-6 Weeks Goal 3:: Pt to be able to walk 300 feet with rolling walker without catching his L foot with gait with CGA Goal Time Frame: 4-6 Weeks Goal 4:: Pt to be taught how to self stretch his B heel cords Goal Time Frame: 4-6 Weeks Goal 5:: Pt to sit to stand X 10 times in a row with no retro LOB or him pushing his knees into the chair for balance with use of his UE to help on the chair. Goal Time Frame: 4-6 Weeks Goal 6:: Be able to turn 180 degrees with proper larger steps and not several mini steps to prevent falls Goal Time Frame: 4-6 Weeks - Rehabilitation Potential Rehabilitation Potential: Good - Anticipated Interventions Patient/Client Instruction: Educate patient on: Condition, Plan of Care For the Purpose of:: To increase ROM, To improve muscle performance and motor function, To improve performance and independence with ADL's, To decrease level of supervision to perform tasks, To improve ability of physical actions for home/community/work/leisure, To improve gait and locomotor functions, To decrease soft tissue restriction, To increase flexibility/ROM, To improve endurance, To improve balance, To improve safety with gait Therapeutic Exercise to Include: Strength training, Endurance training, Balance training, Postural training, Flexibilty training, Gait and locomotor training, Neuromotor development, Passive ROM, Active ROM, Dynamic Lumbar Stabilization For the Purpose of:: To improve muscle performance and motor function, To improve ability to perform ADL's, To increase tolerance to activity/condition/position, To improve performance and independence with ADL's, To decrease level of supervision to perform tasks, To improve ability of physical actions for home/community/work/leisure, To improve gait and locomotor functions, To improve health of tissue, To decrease soft tissue restriction, To increase flexibility/ROM, To improve balance, To improve safety with gait Functional Training to Include: Gait training For the Purpose of:: To improve gait and locomotor functions, To improve safety with gait Thank you for the opportunity to evaluate your patient. For Medicare and Medicare HMO plans, please review the plan of care and approve it. It will need to be FAXED BACK to us at [phone] for Medicare purposes. For Medicare only, by signing this I certify the plan of care. Please let me know if there are questions or concerns regarding this plan of care. Physician Signature: Date:
--- NOTE | 2019-12-21 12:05 | HP.PTREVAL_ITS ---
Dr. Jaiden Rivera MD, It has been my pleasure to treat KATHARINE WATTS over the last 8 visits for Repeated Falls with PD. Please see the progress note below for an update on the physical therapy plan of care! Subjective: Pt late for his appointment. Pt reports that he feels that his balance is better. Pt reports that he is getting out of a chair better and he feels better about his balance. He feels that he needs additional PT for his balance. Objective/Function: TUG 21.75 seconds (safety was a little questionable as pt picked up his walker to turn on both turns. Standing balance: static he was able to but dynamic working on getting things out of his walker bag was a little more challenging and a little more retro LOB. Gait: caught foot twice with gait today walking 300 feet with his walker and one was a good trip. Sit to stand: no pad. X 10... several attempts to start with no hands... lots of retro LOB and once standing he tended to lean to his R side and needed min A to get back to center. Turning 180 degrees: pt wants to order picker/assembler his walker, he does take bigger steps today but not safe with picking walker up and some retro LOB. Pt struggles with stretching B gastroc with green strap 30 sec X 3 Plan Plan: 2x/week for 4 additional weeks for standing static and dynamic balance, gait training, gastroc stretching, safety for turning 180 degrees with walker on the ground, backing up to chair before sitting down, with HEP. Goals Goal 1:: I HEP Goal Time Frame: 4-6 Weeks Goal 2:: Increase TUG to 35 seconds to decrease fall risk Goal Time Frame: 4-6 Weeks Goal Progress: Goal Met Goal 3:: Pt to be able to walk 300 feet with rolling walker without catching his L foot with gait with CGA Goal Time Frame: 4-6 Weeks Goal Progress: Progressing Goal 4:: Pt to be taught how to self stretch his B heel cords Goal Time Frame: 4-6 Weeks Goal Progress: Progressing Goal 5:: Pt to sit to stand X 10 times in a row with no retro LOB or him pushing his knees into the chair for balance with use of his UE to help on the chair. Goal Time Frame: 4-6 Weeks Goal Progress: Progressing Goal 6:: Be able to turn 180 degrees with proper larger steps and not several mini steps to prevent falls Goal Time Frame: 4-6 Weeks Goal Progress: Progressing Anticipated Interventions Patient/Client Instruction: Educate patient on: Condition, Plan of Care For the Purpose of:: To increase ROM, To improve muscle performance and motor function, To improve performance and independence with ADL's, To decrease level of supervision to perform tasks, To improve ability of physical actions for home/community/work/leisure, To improve gait and locomotor functions, To decrease soft tissue restriction, To increase flexibility/ROM, To improve endurance, To improve balance, To improve safety with gait Therapeutic Exercise to Include: Strength training, Endurance training, Balance training, Postural training, Flexibilty training, Gait and locomotor training, Neuromotor development, Passive ROM, Active ROM, Dynamic Lumbar Stabilization For the Purpose of:: To improve muscle performance and motor function, To improve ability to perform ADL's, To increase tolerance to activity/condition/position, To improve performance and independence with ADL's, To decrease level of supervision to perform tasks, To improve ability of physical actions for home/community/work/leisure, To improve gait and locomotor functions, To improve health of tissue, To decrease soft tissue restriction, To increase flexibility/ROM, To improve balance, To improve safety with gait Functional Training to Include: Gait training For the Purpose of:: To improve gait and locomotor functions, To improve safety with gait Please do not hesitate to contact me at [phone] by phone or if you have questions or concerns regarding this new plan of care! Sincerely, Kalpana Jade, MPT
--- NOTE | 2020-02-21 13:30 | SOAP_ITS ---
REASON FOR REFERRAL: The patient is a 69 year old male referred for a clinical assessment of the swallow function at [facility] on 02/21/2020 due to concerns for dysphagia secondary to the diagnosis of Parkinson?s disease. The patient reports a rather significant unintentional weight loss of around 150 lbs. since his diagnosis with Parkinson?s in 2012 (~25lbs over the last 6 months; currently ~ 175 lbs.). He reports a steady decline in his appetite, which is due in part to his reported gradual hypogeusia (reduced taste) and hyposmia (reduced smell) that has accompanied his Parkinson?s diagnosis. He reports an excess of saliva collection throughout the day, reporting that he often sounds like ?the suction at the dentist? when managing his own saliva, though he reports that this has not progressed to diurnal sialorrhea (drooling during the daytime). He also reports what sounds like intermittent oral holding with solid textures (items like hamburgers), with this occurring more often over the last year. The patient denies post prandial coughing and/or throat clearing, denies sensation of bolus stasis, and denies issues with nasoregurgitation / reflux. He denies issues with reflux / heartburn, globus sensation, post prandial substernal discomfort, or feelings of bolus stasis. He denies any suboptimal intake behaviors (tachyphagia, bolus bolting, or aerophagia). He denies any current or previous issues with aspiration related pulmonary complications, to include pneumonia, bronchitis, or unexplained asthma symptoms. He appears cognitively intact, with a noted flat affect. 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 He reports direct involvement in setting up [employer] [employer] [facility] programs in the [place] area, and has an excellent understanding of his diagnosis. The patient is ambulatory with the use of assistive devices (front wheeled walker), with no difficulties regarding posture maintenance. 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 MEDICAL HISTORY: Parkinson?s disease, hypertension, hyperlipidemia, benign prostrate hyperplasia, type II diabetes mellitus. PREVIOUS MODIFIED BARIUM SWALLOW STUDY: None RESULTS OF THE EVALUATION: The patient presents with signs of mild oropharyngeal dysphagia secondary to the diagnosis of Parkinson?s disease that would benefit from further workup under fluoroscopy. SUPPLEMENTARY DYSPHAGIA ASSESSMENT RESULTS (SCALES / PROM): SIALORRHEA SCORING SCALE (SSS): SSS SCORE: 2 (of 9) SSS DESCRIPTION: mild, only the lips are wet, occasionally EATING ASSESSMENT TOOL ? 10 (EAT-10): EAT-10 TOTAL SCORE: 4 EAT-10 INTERPRETATION: a score of 3+ may represent swallowing problems ORAL MOTOR / MODIFIED CRANIAL NERVE ASSESSMENT: TRIGEMINAL NERVE (CNV): appears grossly intact FACIAL NERVE (CNVII): appears grossly intact GLOSSOPHARYNGEAL NERVE (CNIX): appears grossly intact VAGUS NERVE (CNX): appears grossly intact HYPOGLOSSAL NERVE (CNXII): appears grossly intact DENTITION: natural upper / lower dentition in sufficient repair with prior restorative work SALIVATION: moist appearance to the oral cavity without signs of xerostomia; COUGH SUFFICIENCY: appropriate volitional cough intensity VOCAL QUALITY: milder hyperkinetic dysarthria CLINICAL ASSESSMENT OF SWALLOW FUNCTION (QUANTITATIVE): REPETITIVE SALIVA SWALLOWING TEST (RSST): RSST RESULT: pass RSST DESCRIPTION: able to elicit 2 dry swallows within 30 seconds. 1OZ WATER SWALLOWING TEST (1OZ WST): 1OZ WST RESULTS: normal ? 1 (of 5) 1OZ WST DESCRIPTION: single swallow without coughing during ingestion DRINKING EPISODES: none CLINICAL ASSESSMENT OF DYSPHAGIA IN NEURODEGENERATION (CADN): ANAMNESIS: 1 ANAMNESIS SEVERITY: mild INTAKE: 1 INTAKE SEVERITY: mild CADN TOTAL SCORE: 1 CADN SCORE DESCRIPTION: mild signs of dysphagia CLINICAL ASSESSMENT OF SWALLOW FUNCTION (QUALITATIVE): ORAL PREPARATORY PHASE: competent bolus manipulation without fragmented swallowing (piecemeal deglutition); sufficient anterior oral containment during manipulation; preserved management of breathing / bolus formation without disrupted E ? S ? E pattern ORAL TRANSITIONAL PHASE: no signs of transitional incompetence (though reported to occur with greater frequency); there is bilateral residue buildup within the oral cavity, though overall this is sufficiently cleared; there are no clinical signs or symptoms of premature posterior bolus loss. PHARYNGEAL PHASE: appropriate hyolaryngeal excursion upon digital palpation; intermittent / prominent audible swallow possibly suggestive of pharyngeal swallow delay / dyssynchrony; no subjective signs of pharyngeal dysmotility; no subjective signs of velopharyngeal impairments; no overt signs or symptoms of penetration / aspiration throughout trials. ESOPHAGEAL PHASE: esophageal phase appears unremarkable CLINICAL ASSESSMENT OF SWALLOW FUNCTION (SEVERITY GRADING): SWALLOWING PERFORMANCE SCALE (SPS): SPS SCORE: 3 (of 7) SPS SEVERITY: mild SPS SCORE DESCRIPTION: mild dysfunction in oral or pharyngeal stage; INTERVENTION CONSIDERATIONS AND RECOMMENDATIONS: I cannot definitively rule out silent aspiration through the clinical assessment of swallow function. The patient is considered to be at a higher risk of silent aspiration secondary to the diagnosis of Parkinson?s disease; therefore I will recommend advancing with a modified barium swallow study to objective assess his oropharyngeal swallow function. RECOMMENDATIONS FOR INTERVENTION: The patient requires continued skilled speech-language intervention targeting diet texture management and training / implementation of recommended compensatory strategies, with goal adjustment pending MBS completion. POST ASSESSMENT EDUCATION: The results and recommendations were discussed with the patient immediately following completion of the assessment, with the patient verbalizing understanding and agreement with all recommendations and education provided. DIET TEXTURE RECOMMENDATIONS: Will recommend a regular ? soft textured (IDDSI: 6), thin liquid diet (IDDSI: 0) diet RECOMMENDED COMPENSATORY STRATEGIES: Reduced bolus volume / rate of ingestion, consider cutting tougher textures into bite sized pieces, seated upright at 90 degrees during PO intake, remain upright for 30-60 minutes post meal (GERD precaution) FUNCTIONAL OUTCOMES: OUTCOME 1: the patient will tolerate the least restrictive means of nutrition to facilitate adequate hydration / nutrition with optimum safety and efficiency of swallowing function during P.O. intake without overt signs and symptoms of aspiration. OUTCOME 2: the patient will participate in a Modified Barium Swallow (MBS) study to objectively assess the patient?s oropharyngeal swallowing function, to determine the least restrictive means of nutrition, and to identify appropriate intervention approaches / strategies to implement during treatment sessions at the supervised level. OUTCOME 3: goal adjustment as needed post MBS Reji Rodas M.A., TRAVIS-CHEMICAL OPERATIONS SPECIALIST, CBIS MBSImP Certified, LSVT Certified [facility] Speech-Language Pathology Department Email: [email or web address]
--- NOTE | 2020-04-10 15:17 | HP.SP.DC_ITS ---
ST Discharge Summary - Discharged: Discharge: The patient is an 69 year old male who attended 3 skilled speech- language intervention sessions spanning from 02/21/2020 to 04/10/2020 targeting concerns for dysphagia secondary to the diagnosis of Parkinson?s disease. Will discharge from the skilled speech-language pathology caseload at this time, per patent and family request as all intervention goals have been achieved, though would gladly re-initiate intervention as needed moving forward.
== END 2020-04-10 15:20 | disposition home or self-care (01) ==
LOC: SP 13:30
PROVIDERS: PCP Family Medicine; Referring Provider Family Medicine; Visit Provider Family Medicine
DX: R29.6 Repeated falls (principal); G20 Parkinson's disease
CPT/HCPCS: 92526; 92610; 97110; 97162; 97530

== ENCOUNTER → 2020-09-08 10:41 | Outpatient (CLI) | payer MEDICARE, OTHER, SELFPAY ==
[2020-09-08 12:15] LABS: Absolute Lymphocyte Count 2.03 X10^3/uL (0.83-4.51); Absolute Neutrophil Count 4.9 X10^3/uL (2.0-7.7); Basophil% 1.2 % (0-1); Eosinophils% 3.7 % (0-5); Hematocrit 48.7 % (40-54); Hemoglobin 15.5 g/dL (13.0-16.5); Lymphocyte # 2.03 X10^3/ul (0.83-4.51); Lymphocyte % 25.3 % (19-41); Mean Corp Hgb Conc 31.8 g/dL (32-36); Mean Corpuscular Hgb 30.5 pg (27.0-32.0); Mean Corpuscular Volume 95.9 fL (80-94); Monocyte# 0.73 X10^3/uL; Monocyte% 9.1 % (0-10); NRBC Flagged by Analyzer 0 % (0-5); Neutrophil # 4.85 X10^3/uL (2.7-7.7); Neutrophil % 60.5 % (47-70); Platelet Count 282 K/mm3 (150-450); RBC Distribution Width CV 13.3 % (11.6-14.6); RBC Distribution Width SD 47.4 fl (35.1-43.9); Red Blood Count 5.08 M/mm3 (4.6-6.2)
[2020-09-08 12:40] LABS: Hemoglobin A1c 5.2 % (3.8-5.6)
[2020-09-08 12:53] LABS: AST(SGOT) 18 U/L (15-37); Alanine Aminotransfer ALT/SGPT 11 U/L (16-61); Albumin, Serum 3.7 g/dL (3.2-5.0); Alkaline Phosphatase 76 U/L (45-117); Anion Gap 7 (5-15); BUN 15 mg/dL (7-18); Calcium,Total 9.4 mg/dL (8.5-10.1); Chloride 101 mmol/L (98-107); Cholesterol 138 mg/dL (200); Creatinine, Serum 1.25 mg/dL (0.70-1.30); EST Glomerular Filtration Rate 60 mL/min (>60); Est Glom Filt Rate - Afr Amer 73 mL/min (>60); Globulin 3.7 g/dL (2.2-4.2); Glucose 82 mg/dL (74-106); High Density Lipoprotein 74 mg/dL; PSA,Total - Annual Screen 0.81 ng/mL (0.00-4.00); Protein, Total 7.4 g/dL (6.4-8.2); Sodium Level 137 mmol/L (136-145); Triglycerides 63 mg/dL; Very Low Density Lipoprotein 13 mg/dL (5-40)
== END ==
PROVIDERS: PCP Family Medicine; Referring Provider Family Medicine; Visit Provider Family Medicine
DX: R73.01 Impaired fasting glucose (principal); N40.0 Benign prostatic hyperplasia without lower urinary tract symptoms; I10 Essential (primary) hypertension; Z12.5 Encounter for screening for malignant neoplasm of prostate
CPT/HCPCS: 36415; 80053; 80061; 83036; 84153; 85025; G0103

== ENCOUNTER → 2020-11-16 11:43 | Outpatient (CLI) | payer MEDICARE, OTHER, SELFPAY ==
--- NOTE | 2020-11-16 11:50 | RAD_ITS ---
STUDY: X-RAY - UNILATERAL RIBS ( RIGHT ) WITH CHEST REASON FOR EXAM: Male, 69 years old. Right-sided rib pain following a fall. TECHNIQUE - RIBS: 4 view(s) of the ribs. TECHNIQUE - CHEST: Single PA view of the chest. COMPARISON: Comparison is made with prior examination dated 10/28/2019. FINDINGS - RIBS: There is a nondisplaced fracture along the posterior aspect of the right seventh eighth ninth and 10th ribs. FINDINGS - CHEST: Stable elevation of the right hemidiaphragm. Decreased bilateral bronchovascular markings suggestive of emphysematous change. There is no demonstrated pleural abnormality. Normal size heart. Normal mediastinum and pepito. Normal visualized pulmonary arteries. Normal visualized aortic arch and descending thoracic aorta. Normal visualized thoracic spine. Normal visualized ribs, clavicles, and shoulders. There is no demonstrated abnormality of the visualized soft tissue structures of the upper abdomen. RAD/Ribs Uni Min 3V w/PA Chest IMPRESSION: RIBS: Nondisplaced fractures involving the right seventh, eighth, ninth and 10th ribs posteriorly. CHEST: Normal x-ray examination of the chest. Electronically Signed: Tito Rodríguez MD at 12:31 EDT , Service support ,
== END ==
PROVIDERS: PCP Family Medicine; Referring Provider Physician Assistant; Visit Provider Physician Assistant
DX: R07.81 Pleurodynia (principal)
CPT/HCPCS: 71101

== ENCOUNTER 2021-03-07 12:00 | Outpatient (RCR) | payer MEDICARE, OTHER, SELFPAY ==
--- NOTE | 2020-10-02 14:28 | HP.PTEVAL ---
Patient's Visit Information KATHARINE WATTS is a 69 year old M referred to Physical Therapy by KWAN MUELLER with a diagnosis of PD. Date of Evaluation: 10/02/20 Physical Therapist: BRITTNEY Baldwin - Visit Plan Frequency: 1x/Week Duration: 3 Months Plan: Pt is a little impulsive with his movements. Some safety concern as he has a decreased ability to stop him momentum especially with walking and sit to standing. 2X/ week for 8-12 weeks for trunk control, UE and LE strengthening, sit to stand transfers with controlling his balance once standing, gait mechanics, balance, dual tasking, opp arm and leg motions with HEP - Subjective Pt reports that he lost everything he lost and he wants to get it back. He sees his instructor trainer canine service once a week and Parkinson's class once and week and now he wants PT to get better. He reports that he was doing 15-20 sit to stands and can not do that. He reports that his balance is bad. He has fallen. He slides off his desk chair that is on wheels and when he goes to pick something up he falls out of the chair dozens of times. He slipped in the bathtub 3 weeks ago. He uses his walker all the time when he is out. He reports that he walks at home without using furniture and gallegos. Stairs: he does not have them at home. He reports that he can do them with a railing. He reports that he struggles with strength in arms and legs. He reports no dizziness. He is still doing well on his PD meds and has a prescription for inhaler rescue but he has not taken it.... rescue drug when his meds are worn off before he takes his next pill. He has no freezing episodes. He has no problems with thinking or swallowing other than he can not eat a hamburger. He is not sleeping well at night... he keeps waking up. - Objective Gait: Walks with wider NIGEL, veering mostly to the right, occ toe catch without a walker. Pt walks with s rolling walker with occ toe catch, stops and picks up walker at changing of surfaces..... LE MMT: B hip flex 4-/5, Knee ext 2-/5 B (prob due to tight HS B), B knee flex 3+/5. Tight B HS and gastroc Complex B. UE MMT: B shld flex 3-/5, B shld abd 3-/5, B bicep 3+, B ER shoulder 3-/4, B IR shoulder 3-/4. Pt demonstrates weak core strength with sitting unsupported especially with UE/LE MMT.... TUG 10.96 but not safe and smooth transistion from sit to stand ( helped with balance by therapist). FGA: 7. Sit to stand: pt is able to get up out of a chair on first attempt without the use of his UE but he is not able to just stand... he has to move his feet fw to catch his fw motion to catch his balance and therapist helped to support him and stop his momentum forward. Stairs: up and down recip with 2 hand rails with flexed trunk, flexed knees and twisting of the spine to descend the stairs. Safety concerns with impulsive movements. EC standing balance with feet together 17 seconds and therapist caught pt. Seated opp arm and leg could do 5 in a row each arm and leg but weak core demonstrated by leaning back and hooking back of leg - Balance/Special Test Scores Functional Gait Assessment Score: 7 % Disability: 76.6700 - Goals Goal 1:: I HEP Goal Time Frame: 8-12 Weeks Goal 2:: Be able to sit to stand with no UE support X 5 in a row without having to step fw or out to catch self from pulpulsion fw Goal Time Frame: 8-12 Weeks Goal 3:: Increase FGA by 5 points to decrease fall risk (score of 7 at eval). Goal Time Frame: 8-12 Weeks Goal 4:: Increase core sitting strength to be able to exercise arms and LE without having to lean BW to get COG Goal Time Frame: 8-12 Weeks Goal 5:: Be able to stand with feet together X 30 seconds with EC without falling to the right side. Goal Time Frame: 8-12 Weeks Goal 6:: Be able to walk without AD with use of gait belt and CGA without veering to the R approx 150 feet. Goal Time Frame: 8-12 Weeks - Rehabilitation Potential Rehabilitation Potential: Good - Anticipated Interventions Patient/Client Instruction: Educate patient on: Condition, Plan of Care For the Purpose of:: To increase ROM, To improve nutrient delivery to tissue, To improve muscle performance and motor function, To improve ability to perform ADL's, To increase tolerance to activity/condition/position, To improve performance and independence with ADL's, To decrease level of supervision to perform tasks, To improve ability of physical actions for home/community/work/leisure, To improve gait and locomotor functions, To increase flexibility/ROM, To improve balance, To improve safety with gait Therapeutic Exercise to Include: Strength training, Endurance training, Balance training, Coordination, Body mechanics, Postural training, Flexibilty training, Gait and locomotor training, Neuromotor development, Passive ROM, Active ROM, Dynamic Lumbar Stabilization For the Purpose of:: To improve nutrient delivery to tissue, To increase oxygenation perfusion, To improve muscle performance and motor function, To improve ability to perform ADL's, To increase tolerance to activity/condition/position, To improve performance and independence with ADL's, To improve ability of physical actions for home/community/work/leisure, To improve gait and locomotor functions, To decrease soft tissue restriction, To increase flexibility/ROM, To improve endurance, To improve balance, To improve safety with gait Functional Training to Include: Gait training For the Purpose of:: To improve gait and locomotor functions, To improve safety with gait Thank you for the opportunity to evaluate your patient. For Medicare and Medicare HMO plans, please review the plan of care and approve it. It will need to be FAXED BACK to us at [phone] for Medicare purposes. For Medicare only, by signing this I certify the plan of care. Please let me know if there are questions or concerns regarding this plan of care. Physician Signature: Date:
--- NOTE | 2021-01-09 13:31 | HP.PTREVAL ---
KWAN MUELLER, It has been my pleasure to treat KATHARINE WATTS over the last 5 visits for PD. Please see the progress note below for an update on the physical therapy plan of care! Subjective: Couple of weeks ago he started hitting things on the R side with walking. 6 weeks ago pt fell out of his chair and fell on a 10# bar cochran and broke 4 ribs. He has been at home recovering. Pt reports no issues with memory. Pt feels that he has gone backwards since the fall. Pt asked his Dr for a new script because he is going BW. He went back to his Dr last week and gave him a script and changed his meds. His Dr wants him to get memory tested but he does not want to. Pt reports no improvement as he has gone backwards since the fall. Pt has hit his head several times through his falls which he rates them as falling 2-3 times a week now. He says that he can see out of his R eye. He does not use a walker at home. Objective/Function: Gait: walks with the walker shifting to the right and he hits doorways on the R hand side and a machine walking back to the treatment area. He reports that this is not always the case and that his walker needs adjusted. I tried his walker and it moves straight. LE MMT; R hip flex 3+/5, L 4-/5, B knee ext 4/5, B knee flex 4-/5, B hip abd 4-/5, pt is able to do 1/4 normal ROM bridge. Pt is able to roll to L and R sidelying from supine but with some spatial unawareness of the edge of the mat table. Sit to stand: X 5 with the use of his arms and not walking FW to catch his balance and standing with hands on the chair rails. Standing unsupported with WBOS 5 seconds and 0 seconds with feet together. FGA: 10. Sitting on mat table and MMT his LE's he has decreased trunk control and shifts his weight BW to help maintain his balance or wants to use his arms. Pt is able to stand using UE support and raising heels up 3 X 10 but struggled raiseing toes upward. Stiars: up and down recip with 2 hand rails with WBOS and decreased fluid motion. Able to sit on edge of chair and hip march X 20 seconds with arms out at 90 degree flexion before lost posture and fatigued. Walking in between cones... pt likes to pick his walker up instead of using it to roll around the cones. Plan Plan: 2X/ week for 4 weeks for balance (static and dynamic), strength, core strength, LE strength, gait training, and walker manuverability. Balance/Gait/Functional tests - Balance/Special Test Scores Functional Gait Assessment Score: 10 % Disability: 66.6700 Lower Extremity Functional Score: 44 Goals Goal 1:: I HEP Goal Time Frame: 8-12 Weeks Goal 2:: Be able to sit to stand with no UE support X 5 in a row without having to step fw or out to catch self from pulpulsion fw Goal Time Frame: 8-12 Weeks Goal Progress: Goal Met Goal 3:: Increase FGA by 5 points to decrease fall risk (score of 7 at eval). Goal Time Frame: 8-12 Weeks Goal Progress: Progressing Goal 4:: Increase core sitting strength to be able to do hip march X 1 minute without fatigue and having to lean BW to get COG at edge of chair Goal Time Frame: 8-12 Weeks Goal 5:: Be able to stand with feet together X 30 seconds with EO/EC without falling to the right side. Goal Time Frame: 8-12 Weeks Goal 6:: Be able to walk without AD with use of gait belt and CGA without veering to the R approx 150 feet. Goal Time Frame: 8-12 Weeks Goal Progress: Progressing Anticipated Interventions Patient/Client Instruction: Educate patient on: Condition, Plan of Care For the Purpose of:: To increase ROM, To improve nutrient delivery to tissue, To improve muscle performance and motor function, To improve ability to perform ADL's, To increase tolerance to activity/condition/position, To improve performance and independence with ADL's, To decrease level of supervision to perform tasks, To improve ability of physical actions for home/community/work/leisure, To improve gait and locomotor functions, To increase flexibility/ROM, To improve balance, To improve safety with gait Therapeutic Exercise to Include: Strength training, Endurance training, Balance training, Coordination, Body mechanics, Postural training, Flexibilty training, Gait and locomotor training, Neuromotor development, Passive ROM, Active ROM, Dynamic Lumbar Stabilization For the Purpose of:: To improve nutrient delivery to tissue, To increase oxygenation perfusion, To improve muscle performance and motor function, To improve ability to perform ADL's, To increase tolerance to activity/condition/position, To improve performance and independence with ADL's, To improve ability of physical actions for home/community/work/leisure, To improve gait and locomotor functions, To decrease soft tissue restriction, To increase flexibility/ROM, To improve endurance, To improve balance, To improve safety with gait Functional Training to Include: Gait training For the Purpose of:: To improve gait and locomotor functions, To improve safety with gait Please do not hesitate to contact me at [phone] by phone or if you have questions or concerns regarding this new plan of care! Sincerely, Kalpana Jade, MPT
== END 2021-03-07 19:00 | disposition home or self-care (01) ==
LOC: PT 12:00
PROVIDERS: PCP Family Medicine
DX: G20 Parkinson's disease (principal); R26.9 Unspecified abnormalities of gait and mobility; R29.6 Repeated falls
CPT/HCPCS: 97110; 97162; 97164; 97530

== ENCOUNTER 2021-06-06 11:28 | Emergency (ER) | payer MEDICARE, OTHER, SELFPAY ==
[2021-06-06 11:29] VITALS: BP 106/71; PULSE 62; RESP 18; TEMP 36; O2SAT 92; BMI 20.5
--- NOTE | 2021-06-06 11:49 | EX.ED.GENINJ ---
HPI History of Present Illness Chief Complaint: Head Injury Informant: patient Onset/Context/Timing Onset: Today Mechanism/Context: Fall Quality of Pain: Dull Location: Occiput Current Severity: Gone Maximum Severity: Mild Worsened by: Nothing Relieved by: Nothing Associated Symptoms Associated Symptoms: Positive for Parasthesias; Negative for Loss of consciousness and Amnesia Narrative Narrative: Patient presents with a head injury that occurred today. 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 Patient states he bent over to pet the dog and started feeling dizzy. Patient states he lost his balance and then fell. Patient hit his head on the windowsill. Patient denies any loss of consciousness. Patient admits to some tingling to the area. Patient denies any new weakness. Patient states his last tetanus was less than 5 years ago. Tetanus Immunization: <5 years [facility] Medical History (Updated 06/06/21 @ 11:[address] Phani Peralta, DO) BPH (benign prostatic hyperplasia) Closed traumatic nondisplaced fracture of four ribs of right side Difficulty balancing when standing DMII (diabetes mellitus, type 2) HLD (hyperlipidemia) HTN (hypertension) Parkinson disease Home Medications aspirin 81 mg PO QHS 10/24/17 [History Last Taken 04/18/19] tamsulosin [Flomax] 0.4 mg PO QHS 10/24/17 [History Last Taken 04/18/19] carbidopa-levodopa 1 tab PO QHS 04/19/19 [History Last Taken 04/18/19] carbidopa-levodopa 3 cap PO LUNCH 04/19/19 [History Last Taken 04/19/19] carbidopa-levodopa 3 ea PO DINNER 10/28/19 [History Last Taken Unknown] carbidopa-levodopa 4 ea PO BREAKFAST 10/28/19 [History Last Taken Unknown] amantadine HCl 100 mg capsule 100 mg PO BID 11/16/20 [History Last Taken Unknown] carbidopa ER 23.75 mg-levodopa 95 mg capsule,extended release 1 cap PO TID 11/16/20 [History Last Taken Unknown] rasagiline 1 mg tablet 1 mg PO DAILY 11/16/20 [History Last Taken Unknown] Allergy/AdvReac Type Severity Reaction Status Date / Time Penicillins [PCN] Allergy Unknown Verified 06/06/21 11:29 Family History (Updated 11/16/20 @ 12:20 by Anne Marie Patterson) Father No problems noted. Mother No problems noted. Surgical History no surgical history no surgical history Social History Smoking Status: Never smoker ROS ROS ED Constitutional Constitutional ED: Denies chills or fever(s) Eyes Eyes: Denies blurry vision or change in vision ENT ENT ED: Denies rhinorrhea or sore throat Cardiovascular Cardiovascular: Denies chest pain or palpitations Respiratory/Chest Respiratory/Chest: Reports cough; Denies dyspnea Gastrointestinal Gastrointestinal: Denies nausea or vomiting Genitourinary Genitourinary ED: Denies dysuria or hematuria Musculoskeletal Musculoskeletal: Denies back pain or neck pain Integumentary Denies abscess or rash Neurologic Neurologic: Denies headache(s) or weakness Allergic/Immunologic Allergic/Immunologic ED: Denies mouth swelling or urticaria EXAM Physical Exam Const Vital Signs: 06/06/21 11:29 Temperature 96.8 F L Temperature Source Temporal Pulse Rate 62 Respiratory Rate 18 Blood Pressure 106/71 Blood Pressure Mean 82 Pulse Ox 92 Oxygen Delivery Method Room Air Positive well nourished and well developed General Appearance ED: well developed and NAD HEENT HEENT Narrative: There is a 2 cm full-thickness linear laceration over the occipital scalp. There is no bony crepitance or step-off. There is no active bleeding noted. There are no foreign bodies visualized. There is minimal gapping of the wound margins. Neck full ROM Chest Wall palpation of chest normal Resp normal respiratory effort and clear to auscultation bilaterally Cardio regular rhythm Rate: regular rate GI non-tender Palpation: soft Neuro oriented x3, CN's II-XII intact bilaterally, moves all extremities, no focal motor deficits and no sensory deficits noted Sensorium / Orientation: alert Psych mental status grossly normal MDM MDM MDM Narrative Medical decision making narrative: The wound was cleaned and irrigated. The wound was anesthetized 1% plain lidocaine locally. The wound was closed with 6 elias. Patient tolerated the procedure well. Patient was instructed to keep the wound clean and dry. Patient was instructed to follow-up with his primary care physician in 5 days for wound recheck and staple removal. Patient understood and was agreeable with the plan. All questions were answered. Discharge Plan Triage Chief Complaint: Head Injury ED Provider: Phani Peralta Dx/Rx/DC Orders Clinical Impression: Laceration of occipital scalp, Parkinson disease, Closed head injury Instructions: ED Head Injury (Adult), ED Laceration Scalp Stitches or Elias Prescriptions: No Action Rytary 23.75-95 mg capsule, extended release 1 cap PO TID RF: 0 aspirin 81 MG tablet 81 mg PO QHS RF: 0 tamsulosin [Flomax] 0.4 MG capsule 0.4 mg PO QHS RF: 0 amantadine HCl 100 mg capsule 100 mg PO BID RF: 0 rasagiline 1 mg tablet 1 mg PO DAILY RF: 0 carbidopa-levodopa 1 EACH tablet extended release 1 tab PO QHS RF: 0 carbidopa-levodopa 1 EACH capsule, extended release 3 cap PO LUNCH RF: 0 carbidopa-levodopa 1 EACH capsule, extended release 4 ea PO BREAKFAST RF: 0 carbidopa-levodopa 1 EACH capsule, extended release 3 ea PO DINNER RF: 0 Primary Care Provider: Nico Schmidt Referrals: Nico Schmidt [Primary Care Provider] - 5 Days for suture removal Disposition Disposition: Home, Self Care
[2021-06-06] MEDS: Lidocaine 1% (20 ml mdv) 20 ML Vial INFILT (12:29)
== END 2021-06-06 12:31 | disposition home or self-care (01) ==
PROVIDERS: Emergency Provider Emergency Medicine; PCP Family Medicine; Visit Provider Emergency Medicine
DX: S01.01XA Laceration without foreign body of scalp, initial encounter (principal); G20 Parkinson's disease; Z79.82 Long term (current) use of aspirin; Z79.899 Other long term (current) drug therapy; W19.XXXA Unspecified fall, initial encounter
CPT/HCPCS: 12001; 99283

== ENCOUNTER → 2021-08-23 | Outpatient (CLI) | payer MEDICARE, OTHER, SELFPAY | END | disposition home or self-care (01) | LOC: MFPLAB 16:14 | PROVIDERS: PCP Family Medicine; Visit Provider Family Medicine | DX: L03.90 Cellulitis, unspecified (principal) | CPT/HCPCS: 87070; 87205 ==

== ENCOUNTER 2021-10-01 14:00 | Outpatient (RCR) | payer MEDICARE, OTHER, SELFPAY ==
--- NOTE | 2021-08-09 11:25 | HP.PTEVAL_ITS ---
Patient's Visit Information KATHARINE WATTS is a 70 year old M referred to Physical Therapy by KWAN MUELLER with a diagnosis of PD and neurologic gait dysfunction. Date of Evaluation: 08/09/21 Physical Therapist: BRITTNEY Baldwin - Visit Plan Frequency: 2x /Week Duration: 2 Months Plan: 2X/ week for 8 weeks for functional balance, gait mechanicis, LE strength, stretching of HEELCORDS, core strength with HEP - Subjective Pt has been terrible. He got sick for awhile (cough) and depressed and he is ok now. He was sleeping all the time. He mentally worked his way out of the depression. Terrible physically. He has not been in PD class. He is not exercising at all. He is struggling with balance (he has had countless falls even with his walker one time). Sit to stands: difficult. Not able to do it without using his arms. Rolling over in bed is ok. Getting in and out of a car not an issue. Stairs (has 3 at home with grab bars) and does those just fine. Pt goals; he wants to be able to get to 3 X 10 sit to stands without using his arms, no falls. He wants to be more steady when standing and brushing teeth etc. He stands in the shower and has not fallen but he has grab bars. - Objective Gait: walks with front wheeled walker with decreased stride, increased on the L and likes to the kick the walker on the right. LE MMT: R hip flex 25.9, L 17.2, R knee ext 18.3 and L knee ext 12.3, R knee flexion 13.0 and L knee flexion 12.4, B hip abd 4.5. Rolling side to side: pt has a fear that he will roll off the bed and does not like to take his arm fully across his body... does ok with moving with therapist help and reassurance. Pt is able to bridge about 50% normal ROM. Sit to stand: toes on the ground and heels not, pt attempted to stand and his whole body almost slid off the chair. Was able to sit to stand on first attempt with use of his B UE's. Seated opp arm and leg... able to do X 30 without messing up. TU.94 with no walker and CGA (struggled with turning 180 degrees). 4 square step test: 13:37 with CGA. 360 degree turn: took X 10 steps to complete with increase unsteadiness. Tinetti 12 - Balance/Special Test Scores Tinetti Balance Score: 7 Tinetti Gait Score: 5 Tinetti Balance & Gait Score: 12 Lower Extremity Functional Score: 29 - Goals Goal 1:: I HEP Goal Time Frame: 6-8 Weeks Goal 2:: Decrease TUG time by 4 seconds to decrease fall risk (sore was 14.94 without walker and CGA at eval) Goal Time Frame: 6-8 Weeks Goal 3:: Decrease 4 square time (time was 13.37 with CGA at time of the eval Goal Time Frame: 6-8 Weeks Goal 4:: Increase LE strength (strength at eval: LE MMT: R hip flex 25.9, L 17.2, R knee ext 18.3 and L knee ext 12.3, R knee flexion 13.0 and L knee flexion 12.4). Goal Time Frame: 6-8 Weeks Goal 5:: Be able to sit to stand starting with feet flat on the floor with 1 hand X 5/5 times Goal Time Frame: 6-8 Weeks - Anticipated Interventions Patient/Client Instruction: Educate patient on: Condition, Plan of Care For the Purpose of:: To increase ROM, To improve nutrient delivery to tissue, To improve muscle performance and motor function, To improve ability to perform ADL's, To increase tolerance to activity/condition/position, To improve performance and independence with ADL's, To decrease level of supervision to perform tasks, To improve ability of physical actions for h ome/community/work/leisure, To improve gait and locomotor functions, To decrease soft tissue restriction, To increase flexibility/ROM, To improve endurance, To improve balance, To improve safety with gait Therapeutic Exercise to Include: Strength training, Endurance training, Balance training, Coordination, Body mechanics, Postural training, Flexibilty training, Gait and locomotor training, Neuromotor development, Passive ROM, Active ROM, Dynamic Lumbar Stabilization For the Purpose of:: To decrease pain, To increase ROM, To improve nutrient de livery to tissue, To increase oxygenation perfusion, To improve muscle performance and motor function, To improve ability to perform ADL's, To increase tolerance to activity/condition/position, To improve performance and independence with ADL's, To decrease level of supervision to perform tasks, To improve ability of physical actions for home/community/work/leisure, To improve gait and locomotor functions, To improve health of tissue, To decrease soft tissue restriction, To increase flexibility/ROM, To improve endurance, To improve balance, To improve safety with gait Functional Training to Include: Gait training For the Purpose of:: To improve gait and locomotor functions, To improve safety with gait Manual Therapy Techniques to Include: Passive ROM For the Purpose of:: To increase ROM Thank you for the opportunity to evaluate your patient. For Medicare and Medicare HMO plans, please review the plan of care and approve it. It will need to be FAXED BACK to us at [phone] for Medicare purposes. For Medicare only, by signing this I certify the plan of care. Please let me know if there are questions or concerns regarding this plan of care. Physician Signature: Date:
--- NOTE | 2021-09-12 18:42 | HP.PTEVAL ---
Patient's Visit Information KATHARINE WATTS is a 70 year old M referred to Physical Therapy by KWAN MUELLER with a diagnosis of PD and neurologic gait dysfunction. Date of Evaluation: 08/09/21 Physical Therapist: BRITTNEY Baldwin - Visit Plan Frequency: 2x /Week Duration: 2 Months Plan: 2x/week for 8 weeks for functional balance, gait mechanics, LE strength, stretching of HEELCORDS, core strength with HEP. Pt goals: he wants to be able to get to 3x10 sit to stands without using his arms and wants to be more steady when standing and brushing teeth, etc. - Subjective Pt has been terrible. He got sick for awhile (cough) and depressed and he is ok now. He was sleeping all the time. He mentally worked his way out of the depression. Terrible physically. He has not been in PD class. He is not exercising at all. He is struggling with balance (he has had countless falls even with his walker one time). Sit to stands: difficult. Not able to do it without using his arms. Rolling over in bed is ok. Getting in and out of a car not an issue. Stairs (has 3 at home with grab bars) and does those just fine. Pt goals; he wants to be able to get to 3 X 10 sit to stands without using his arms, no falls. He wants to be more steady when standing and brushing teeth etc. He stands in the shower and has not fallen but he has grab bars. - Objective Gait: walks with front wheeled walker with decreased stride, increased on the L and likes to the kick the walker on the right. LE MMT: R hip flex 25.9, L 17.2, R knee ext 18.3 and L knee ext 12.3, R knee flexion 13.0 and L knee flexion 12.4, B hip abd 4.5. Rolling side to side: pt has a fear that he will roll off the bed and does not like to take his arm fully across his body... does ok with moving with therapist help and reassurance. Pt is able to bridge about 50% normal ROM. Sit to stand: toes on the ground and heels not, pt attempted to stand and his whole body almost slid off the chair. Was able to sit to stand on first attempt with use of his B UE's. Seated opp arm and leg... able to do X 30 without messing up. TU.94 with no walker and CGA (struggled with turning 180 degrees). 4 square step test: 13:37 with CGA. 360 degree turn: took X 10 steps to complete with increase unsteadiness. Tinetti 12 - Balance/Special Test Scores Tinetti Balance Score: 7 Tinetti Gait Score: 5 Tinetti Balance & Gait Score: 12 Lower Extremity Functional Score: 29 - Goals Goal 1:: I HEP Goal Time Frame: 6-8 Weeks Goal 2:: Decrease TUG time by 4 seconds to decrease fall risk (sore was 14.94 without walker and CGA at eval) Goal Time Frame: 6-8 Weeks Goal 3:: Decrease 4 square time (time was 13.37 with CGA at time of the eval Goal Time Frame: 6-8 Weeks Goal 4:: Increase LE strength (strength at eval: LE MMT: R hip flex 25.9, L 17.2, R knee ext 18.3 and L knee ext 12.3, R knee flexion 13.0 and L knee flexion 12.4). Goal Time Frame: 6-8 Weeks Goal 5:: Be able to sit to stand starting with feet flat on the floor with 1 hand X 5/5 times Goal Time Frame: 6-8 Weeks - Anticipated Interventions Patient/Client Instruction: Educate patient on: Condition, Plan of Care For the Purpose of:: To increase ROM, To improve nutrient delivery to tissue, To improve muscle performance and motor function, To improve ability to perform ADL's, To increase tolerance to activity/condition/position, To improve performance and independence with ADL's, To decrease level of supervision to perform tasks, To improve ability of physical actions for home/community/work/leisure, To improve gait and locomotor functions, To decrease soft tissue restriction, To increase flexibility/ROM, To improve endurance, To improve balance, To improve safety with gait Therapeutic Exercise to Include: Strength training, Endurance training, Balance training, Coordination, Body mechanics, Postural training, Flexibilty training, Gait and locomotor training, Neuromotor development, Passive ROM, Active ROM, Dynamic Lumbar Stabilization For the Purpose of:: To decrease pain, To increase ROM, To improve nutrient delivery to tissue, To increase oxygenation perfusion, To improve muscle performance and motor function, To improve ability to perform ADL's, To increase tolerance to activity/condition/position, To improve performance and independence with ADL's, To decrease level of supervision to perform tasks, To improve ability of physical actions for home/community/work/leisure, To improve gait and locomotor functions, To improve health of tissue, To decrease soft tissue restriction, To increase flexibility/ROM, To improve endurance, To improve balance, To improve safety with gait Functional Training to Include: Gait training For the Purpose of:: To improve gait and locomotor functions, To improve safety with gait Manual Therapy Techniques to Include: Passive ROM For the Purpose of:: To increase ROM Thank you for the opportunity to evaluate your patient. For Medicare and Medicare HMO plans, please review the plan of care and approve it. It will need to be FAXED BACK to us at [phone] for Medicare purposes. For Medicare only, by signing this I certify the plan of care. Please let me know if there are questions or concerns regarding this plan of care. Physician Signature: Date:
--- NOTE | 2021-09-17 14:00 | HP.PTREVAL ---
KWAN MUELLER, It has been my pleasure to treat KATHARINE WATTS over the last 9 visits for PD and neurologic gait dysfunction. Please see the progress note below for an update on the physical therapy plan of care! Subjective: Pt reports no falls. Pt feels that his sit to stands are better in balance and strength sherman. Pt reports that he had vertigo this weekend. Pt thinks that he might still have melatonin in his system and doesnt want to do more than the re-eval today. Objective/Function: TU.81. 4 SQUARE: 11:34 (very unsteady) Min A/CGA. Sit to stand: Able to stand up 3/5 attempts with min A for slight tactile cue not to lean to the R with standing with 2 hands. LE Strength R hip flex 17.1 and L 17.4, R knee ext 21 and L 14.8, R knee flex 13.6 and L 13.8 Plan Plan: 2x/week for 4 additional weeks for functional balance (increase time and balance on 4 square and TUG), gait mechanics, LE strength, stretching of HEELCORDS, sit to stand mechanics, core strength with HEP. Pt goals: he wants to be able to get to 3x10 sit to stands without using his arms and wants to be more steady when standing and brushing teeth, etc. Balance/Gait/Functional tests - Balance/Special Test Scores Tinetti Balance Score: 7 Tinetti Gait Score: 5 Tinetti Balance & Gait Score: 12 Lower Extremity Functional Score: 41 Goals Goal 1:: I HEP Goal Time Frame: 6-8 Weeks Goal 2:: Decrease TUG time by 4 seconds to decrease fall risk (sore was 14.94 without walker and CGA at eval) Goal Time Frame: 6-8 Weeks Goal Progress: Progressing Goal 3:: Decrease 4 square time (time was 13.37 with CGA at time of the eval Goal Time Frame: 6-8 Weeks Goal Progress: Progressing Goal 4:: Increase LE strength (strength at eval: LE MMT: R hip flex 25.9, L 17.2, R knee ext 18.3 and L knee ext 12.3, R knee flexion 13.0 and L knee flexion 12.4). Goal Time Frame: 6-8 Weeks Goal 5:: Be able to sit to stand starting with feet flat on the floor with 1 hand X 5/5 times Goal Time Frame: 6-8 Weeks Anticipated Interventions Patient/Client Instruction: Educate patient on: Condition, Plan of Care For the Purpose of:: To increase ROM, To improve nutrient delivery to tissue, To improve muscle performance and motor function, To improve ability to perform ADL's, To increase tolerance to activity/condition/position, To improve performance and independence with ADL's, To decrease level of supervision to perform tasks, To improve ability of physical actions for home/community/work/leisure, To improve gait and locomotor functions, To decrease soft tissue restriction, To increase flexibility/ROM, To improve endurance, To improve balance, To improve safety with gait Therapeutic Exercise to Include: Strength training, Endurance training, Balance training, Coordination, Body mechanics, Postural training, Flexibilty training, Gait and locomotor training, Neuromotor development, Passive ROM, Active ROM, Dynamic Lumbar Stabilization For the Purpose of:: To decrease pain, To increase ROM, To improve nutrient delivery to tissue, To increase oxygenation perfusion, To improve muscle performance and motor function, To improve ability to perform ADL's, To increase tolerance to activity/condition/position, To improve performance and independence with ADL's, To decrease level of supervision to perform tasks, To improve ability of physical actions for home/community/work/leisure, To improve gait and locomotor functions, To improve health of tissue, To decrease soft tissue restriction, To increase flexibility/ROM, To improve endurance, To improve balance, To improve safety with gait Functional Training to Include: Gait training For the Purpose of:: To improve gait and locomotor functions, To improve safety with gait Manual Therapy Techniques to Include: Passive ROM For the Purpose of:: To increase ROM Please do not hesitate to contact me at [phone] by phone or if you have questions or concerns regarding this new plan of care! Sincerely, Kalpana Jade, MPT
== END 2021-10-01 19:00 | disposition home or self-care (01) ==
LOC: PT 14:00
PROVIDERS: PCP Family Medicine
DX: G20 Parkinson's disease (principal); R26.89 Other abnormalities of gait and mobility
CPT/HCPCS: 97110; 97161; 97530

== ENCOUNTER 2021-10-07 12:36 | Inpatient (IN) | payer MEDICARE, OTHER, SELFPAY ==
[2021-10-07 12:38] VITALS: BP 131/81; PULSE 109; RESP 18; TEMP 36.4; BMI 20.5
--- NOTE | 2021-10-07 12:53 | EX.ED.DYSGE1 ---
HPI History of Present Illness Chief Complaint: Cellulitis Informant: patient and family Onset/Context/Timing Onset: Yesterday Context: Gradual Onset Current Severity: Moderate Maximum Severity: Moderate Narrative Narrative: Patient presents with redness and warmth of the right leg concerning for cellulitis. He has a history of similar and was treated for sepsis in the past. Patient denies any obvious fever or chills at home. He states otherwise has been feeling well. [facility] Medical History BPH (benign prostatic hyperplasia) Closed traumatic nondisplaced fracture of four ribs of right side Difficulty balancing when standing DMII (diabetes mellitus, type 2) HLD (hyperlipidemia) HTN (hypertension) Parkinson disease Home Medications tamsulosin 0.4 mg capsule (Flomax) 0.4 mg PO QHS PROSTATE 10/24/17 [History Last Taken 04/18/19] carbidopa ER 36.25 mg-levodopa 145 mg capsule,extended release 4 cap PO LUNCH parkinsons 04/19/19 [History Last Taken 04/19/19] carbidopa ER 36.25 mg-levodopa 145 mg capsule,extended release 3 ea PO BREAKFAST 10/28/19 [History Last Taken Unknown] carbidopa ER 36.25 mg-levodopa 145 mg capsule,extended release 4 ea PO DINNER 10/28/19 [History Last Taken Unknown] amantadine HCl 100 mg capsule 100 mg PO BID pain 11/16/20 [History Last Taken Unknown] rasagiline 1 mg tablet 1 mg PO DAILY parkinsons 11/16/20 [History Last Taken Unknown] Allergy/AdvReac Type Severity Reaction Status Date / Time Penicillins [PCN] Allergy Unknown Verified 10/07/21 12:38 Family History Father No problems noted. Mother No problems noted. Social History Smoking Status: Never smoker ROS ROS ED Constitutional Constitutional ED: Denies chills or fever(s) Eyes Eyes: Denies change in vision or discharge from eye(s) ENT ENT ED: Denies discharge from eye(s), rhinorrhea or sore throat Cardiovascular Cardiovascular: Denies chest pain or palpitations Respiratory/Chest Respiratory/Chest: Denies cough or dyspnea Gastrointestinal Gastrointestinal: Denies abdominal pain, diarrhea, nausea or vomiting Genitourinary Genitourinary ED: Denies dysuria Musculoskeletal Musculoskeletal: Denies back pain or extremity pain Integumentary Reports rash; Denies Abrasions Neurologic Neurologic: Denies headache(s) or weakness Psychiatric Psychiatric: Denies anxiety or depression Allergic/Immunologic Allergic/Immunologic ED: Denies lip swelling or urticaria EXAM Physical Exam Const Vital Signs: 10/07/21 12:38 Temperature 97.5 F L Temperature Source Temporal Pulse Rate 109 H Respiratory Rate 18 Blood Pressure 131/81 H Blood Pressure Mean 97 Oxygen Delivery Method Room Air Positive well nourished and well developed General Appearance ED: well developed HEENT Reports normocephalic and head/scalp atraumatic Eyes PERRL and EOMs intact bilaterally Neck supple Chest Wall inspection of chest normal and palpation of chest normal Resp normal respiratory effort and clear to auscultation bilaterally Cardio regular rate and regular rhythm GI non-tender Palpation: soft Extremity Extremity Narrative: Erythema and mild edema to the right lower extremity. No focal calf tenderness. Multiple abrasions over the anterior yates and knee. Neuro oriented x3 Sensorium / Orientation: alert Psych mental status grossly normal Skin Skin Narrative: Cellulitis of right lower extremity as noted above. MDM MDM MDM Narrative Medical decision making narrative: Lab work obtained. I did review prior records. Patient was admitted 4 years ago with sepsis secondary to cellulitis. He was treated vancomycin and Ancef in the hospital and discharged on Keflex. In light of this Ancef and vancomycin are ordered here. Lab Data Attestation: I reviewed the patient's lab results. Labs: Laboratory Results - last 24 hr 10/07/21 10/07/21 10/07/21 13:15 13:15 13:15 WBC 17.0 H RBC 5.14 Hgb 15.7 Hct 48.2 MCV 93.8 MCH 30.5 MCHC 32.6 RDW Std Deviation 48.3 H RDW Coeff of Lexii 14.2 Plt Count 231 MPV 10.6 Immature Gran % (Auto) 1.200 H Neut % (Auto) 93.9 H Lymph % (Auto) 1.5 L Ashley % (Auto) 2.6 Eos % (Auto) 0.5 Baso % (Auto) 0.3 Absolute Neuts (auto) 16.0 H Absolute Lymphs (auto) 0.26 L Nucleated RBC % 0 Sodium 135 L Potassium 4.3 Chloride 99 Carbon Dioxide 30.0 Anion Gap 6 BUN 18 Creatinine 1.39 H Estim Creat Clear Calc 41.61 Est GFR (MDRD) Af Amer 64 Est GFR (MDRD) Non-Af 53 L BUN/Creatinine Ratio 12.9 Glucose 93 Lactic Acid 3.6 H* Calcium 8.9 Total Bilirubin 1.00 Direct Bilirubin 0.25 AST 11 L ALT 10 L Alkaline Phosphatase 86 Total Protein 8.0 Albumin 3.4 Globulin 4.6 H Treatment and Re-Evaluation Narrative: Blood cultures have been obtained. Lab work significant for white count of 17 with 94% neutrophils. Chemistry studies reveal a slight increase in creatinine to 1.39. Lactic acid is elevated at 3.6. Patient has been ordered IV fluid bolus at 30 cc/kg. He remains hemodynamically stable. I will speak with hospitalist regarding admission. Discharge Plan Triage Chief Complaint: Cellulitis ED Provider: Gayle Monae Dx/Rx/DC Orders Clinical Impression: Cellulitis, Sepsis Prescriptions: No Action tamsulosin [Flomax] 0.4 MG capsule 0.4 mg PO QHS amantadine HCl 100 mg capsule 100 mg PO BID Label Comments: Rx Instructions: 0800, 1300 rasagiline 1 mg tablet 1 mg PO DAILY Label Comments: carbidopa-levodopa 1 EACH capsule, extended release 4 cap PO LUNCH Rx Instructions: 0800,1300,1800 carbidopa-levodopa 1 EACH capsule, extended release 3 ea PO BREAKFAST carbidopa-levodopa 1 EACH capsule, extended release 4 ea PO DINNER Primary Care Provider: Nico Schmidt Referrals: Nico Scmhidt [Primary Care Provider] - Disposition Disposition: Acute Care Hospital [facility]
[2021-10-07 13:25] LABS: Absolute Lymphocyte Count 0.26 X10^3/uL (0.83-4.51); Basophil# 0.05 X10^3/uL; Basophil% 0.3 % (0-1); Eosinophil# 0.08 X10^3/uL; Eosinophils% 0.5 % (0-5); Hematocrit 48.2 % (40-54); Hemoglobin 15.7 g/dL (13.0-16.5); Lymphocyte # 0.26 X10^3/ul (0.83-4.51); Lymphocyte % 1.5 % (19-41); Mean Corp Hgb Conc 32.6 g/dL (32-36); Mean Corpuscular Hgb 30.5 pg (27.0-32.0); Mean Corpuscular Volume 93.8 fL (80-94); Mean Platelet Vol. 10.6 fl (6.2-12.0); Monocyte# 0.45 X10^3/uL; Monocyte% 2.6 % (0-10); NRBC Flagged by Analyzer 0 % (0-5); Neutrophil % 93.9 % (47-70); POSITIVE DIFFERENTIAL YES; Platelet Count 231 K/mm3 (150-450); RBC Distribution Width CV 14.2 % (11.6-14.6); RBC Distribution Width SD 48.3 fl (35.1-43.9); Red Blood Count 5.14 M/mm3 (4.6-6.2)
[2021-10-07 13:29] LABS: Differential Indicated SCAN CRITERIA MET
[2021-10-07 13:47] LABS: AST(SGOT) 11 U/L (15-37); Alanine Aminotransfer ALT/SGPT 10 U/L (16-61); Albumin, Serum 3.4 g/dL (3.2-5.0); Alkaline Phosphatase 86 U/L (45-117); Anion Gap 6 (5-15); BUN 18 mg/dL (7-18); BUN/Creat Ratio 12.9 RATIO (10-20); Bilirubin, Direct 0.25 mg/dL (0.00-0.30); Calcium,Total 8.9 mg/dL (8.5-10.1); Chloride 99 mmol/L (98-107); Creatinine, Serum 1.39 mg/dL (0.70-1.30); EST Glomerular Filtration Rate 53 mL/min (>60); Est Glom Filt Rate - Afr Amer 64 mL/min (>60); Estimated Creatinine Clearance 41.61 ml/min; Globulin 4.6 g/dL (2.2-4.2); Glucose 93 mg/dL (74-106); Potassium 4.3 mmol/L (3.5-5.1); Sodium Level 135 mmol/L (136-145)
[2021-10-07 13:51] LABS: Lactic Acid 3.6 mmol/L (0.4-1.9)
[2021-10-07] MEDS: 0.9% Normal Saline 1,000 ML 999 ML IV ×2 (14:01→16:41)
[2021-10-07] MEDS: Vancomycin IV 1,000 MG/200 ML BAG 200 MG IV (14:01)
[2021-10-07 14:02] VITALS: BP 109/66; PULSE 99; RESP 18
[2021-10-07 14:03] VITALS: BP 109/66; PULSE 99; RESP 18; TEMP 36.4
[2021-10-07 14:09] LABS: Platelet Estimate ADEQUATE (ADEQ); Red Cell Morphology NORM C+C NORMAL (NORM C&C)
--- NOTE | 2021-10-07 14:29 | HP.PCM.HOS_ITS ---
[facility] - General General Date of Service: 10/07/21 Chief Complaint: Erythema on the right leg. HPI Narrative KATHARINE WATTS, is a 70 M who presents presents with a 2-day history of erythema of the right lower extremity. Initially began on his upper thigh and then proc eeded distally. Patient also had chills. Is a similar presentation when he has had cellulitis of his right lower extremity before. Typically, the patient gets cellulitis, it involves his right lower extremity. Patient presented to the emergency room was diagnosed with cellulitis and received vancomycin, cefazolin and IV fluids. Patient is weak is does fall frequently due to his Parkinson's disease. This before the cellulitis developed. [facility] Medical History BPH (benign prostatic hyperplasia) Closed traumatic nondisplaced fracture of four ribs of right side Difficulty balancing when standing DMII (diabetes mellitus, type 2) HLD (hyperlipidemia) HTN (hypertension) Parkinson disease Home Medications tamsulosin 0.4 mg capsule (Flomax) 0.4 mg PO QHS PROSTATE 10/24/17 [History Last Taken 04/18/19] carbidopa ER 36.25 mg-levodopa 145 mg capsule,extended release 4 cap PO LUNCH parkinsons 04/19/19 [History Last Taken 04/19/19] carbidopa ER 36.25 mg-levodopa 145 mg capsule,extended release 3 ea PO BREAKFAST 10/28/19 [History Last Taken Unknown] carbidopa ER 36.25 mg-levodopa 145 mg capsule,extended release 4 ea PO DINNER 10/28/19 [History Last Taken Unknown] amantadine HCl 100 mg capsule 100 mg PO BID pain 11/16/20 [History Last Taken Unknown] rasagiline 1 mg tablet 1 mg PO DAILY parkinsons 11/16/20 [History Last Taken Unknown] Allergy/AdvReac Type Severity Reaction Status Date / Time Penicillins [PCN] Allergy Unknown Verified 10/07/21 12:38 Family History (Updated 10/07/21 @ 14:[address] Phani Villeda DO) Father No problems noted. Mother No problems noted. Other Parkinsons disease Social History (Updated 10/07/21 @ 14:[address] Phani Villeda DO) Smoking Status: Never smoker alcohol intake: never ROS ROS Narrative Some tremors with the Parkinson's disease. Falls. Voice is weak at baseline. All review of systems were negative except as mentioned above in the history of present illness and the other review of systems. Vital Signs Vital Signs Vital Signs: 10/07/21 12:38 10/07/21 14:02 10/07/21 14:03 Temperature 36.4 C L 36.4 C L Temperature Source Temporal Temporal Pulse Rate 109 H 99 99 Respiratory Rate 18 18 18 Blood Pressure 131/81 H 109/66 109/66 Blood Pressure Mean 97 80 80 Oxygen Delivery Method Room Air Room Air Weight Weight: 61.235 kg Body Mass Index (BMI) 20.5 Physical Exam Const alert and no apparent distress Constitutional Narrative: Hypophonia Resp normal respiratory effort, no retractions, no use of accessory muscles and clear to auscultation bilaterally Cardio regular rate, regular rhythm, S1 normal heart sound and S2 normal heart sound GI normal to inspection, nondistended, normoactive bowel sounds, soft to palpation, non-tender and non-distended Extremity Extremity Narrative: Patient with onychomycosis involving his. Nails and toenails. Has very small toenails on his right particular involving his right great toe. Skin Skin Narrative: Marked erythema of the distal lower extremity from the knee down to the ankle. Does also have an area superior to that on his anterior thigh that is a macular rash. No induration, no fluctuance. Neuro oriented x3 Psych affect normal Results Lab / Micro Data Attestation: I reviewed the patient's lab results. Result Diagrams: 10/07/21 13:15 10/07/21 13:15 Labs: Laboratory Results - last 24 hr 10/07/21 13:15: WBC 17.0 H, RBC 5.14, Hgb 15.7, Hct 48.2, MCV 93.8, MCH 30.5, MCHC 32.6, RDW Std Deviation 48.3 H, RDW Coeff of Lexii 14.2, Plt Count 231, MPV 10.6, Immature Gran % (Auto) 1.200 H, Neut % (Auto) 93.9 H, Lymph % (Auto) 1.5 L , [place] % (Auto) 2.6, Eos % (Auto) 0.5, Baso % (Auto) 0.3, Absolute Neuts (auto) 16.0 H, Absolute Lymphs (auto) 0.26 L, Nucleated RBC % 0, Platelet Estimate ADEQUATE, RBC Morphology NORM C+C 10/07/21 13:15: Sodium 135 L, Potassium 4.3, Chloride 99, Carbon Dioxide 30.0, Anion Gap 6, BUN 18, Creatinine 1.39 H, Estim Creat Clear Calc 41.61, Est GFR (MDRD) Af Amer 64, Est GFR (MDRD) Non-Af 53 L, BUN/Creatinine Ratio 12.9, Glucose 93, Calcium 8.9, Total Bilirubin 1.00, Direct Bilirubin 0.25, AST 11 L, ALT 10 L, Alkaline Phosphatase 86, Total Protein 8.0, Albumin 3.4, Globulin 4.6 H 10/07/21 13:15: Lactic Acid 3.6 H* Assessment & Plan Assessment/Plan (1) Cellulitis: QUALIFIERS: Site of cellulitis: extremity Site of cellulitis of extremity: lower extremity Laterality: right Qualified Code(s): L03.115 - Cellulitis of right lower limb PLAN: Right lower extremity cellulitis Onset was the qSOFA is 0, therefore sepsis is ruled out Plan * Follow-up on blood cultures that were performed in the emergency room * Continue with vancomycin (2) Lactic acidosis: PLAN: Patient not septic at present. Patient did receive IV fluids. No additional work-up for the lactic acidosis at this time. (3) Parkinson disease: PLAN: Complicates care and recovery. Plan: * Continue with amantadine, carbidopa?levodopa, rasagiline * Patient falls at baseline and will have physical and occupational therapy evaluate him. PLAN: Plan Chronic conditions * diabetes mellitus type 2: Per history. Patient is not on any medications. Patient has lost 150 pounds and since then he has no longer been diabetic. No additional treatment or work-up at this time. * BPH: Continue with tamsulosin * Onychomycosis: Chronic. According the patient's he is actually had impro vement with recent treatment. VTE prophylaxis with enoxaparin CODE STATUS: Addressed with the patient. Patient wishes to be full code. Charges/Coding Visit Charges Inpatient E&M: 92569 Init Hosp L2
[2021-10-07 14:47] VITALS: BP 110/68; PULSE 90; RESP 18; TEMP 36.8
[2021-10-07] MEDS: Cefazolin 1 GM/50 ML BAG IV (15:10)
[2021-10-07 16:00] VITALS: BP 114/61; PULSE 85; RESP 18; TEMP 37.3; O2SAT 96
[2021-10-07 16:03] VITALS: BMI 20.3
--- NOTE | 2021-10-07 16:15 | PCM.RX.CS ---
Consult Pharmacy has been consulted to manage selected antiobiotic: Vancomycin Type of Consult: New start Suspected Infection: Skin/Soft tissue Labs: Sodium 135 mmol/L (136-145) L 10/07/21 13:15 Potassium 4.3 mmol/L (3.5-5.1) 10/07/21 13:15 Chloride 99 mmol/L (98-107) 10/07/21 13:15 Carbon Dioxide 30.0 mmol/L (21.0-32.0) 10/07/21 13:15 Anion Gap 6 (5-15) 10/07/21 13:15 BUN 18 mg/dL (7-18) 10/07/21 13:15 Creatinine 1.39 mg/dL (0.70-1.30) H 10/07/21 13:15 Est GFR (MDRD) Af Amer 64 mL/min (>60) 10/07/21 13:15 Est GFR (MDRD) Non-Af 53 mL/min (>60) L 10/07/21 13:15 BUN/Creatinine Ratio 12.9 RATIO (10-20) 10/07/21 13:15 Glucose 93 mg/dL (74-106) 10/07/21 13:15 Goal Trough: 10-15 mcg/mL Pharmacy Plan for Drug Dosing: NEW START IV VANCOMYCIN Consulting Physician: Dr. Villeda Indication: SSTI Goal Trough: 10-15 SrCr: 1.39 CrCl: 41 mL/min Comments: 1000mg IV x1 ordered and administered in the ED 10/07/21 @1401 Vancomycin Dose: 750mg IV Q24hr to start 10/08/21 @1400 Pending Level: 10/09/21 @1330, prior to 3rd total dose per protocol Pharmacy Service will continue to monitor and adjust dosing as required.
[2021-10-07 17:21] LABS: Reflex Lactate? Y
[2021-10-07] MEDS: Enoxaparin 40 MG/0.4 ML Syringe SC (18:18)
[2021-10-07 21:43] VITALS: BP 119/64; PULSE 96; RESP 18; TEMP 37.2; O2SAT 97
[2021-10-07] MEDS: CARBIDOPA/LEVODOPA 1 EACH CAPSULE.ER PO (21:55)
[2021-10-07] MEDS: Tamsulosin HCl 0.4 MG Capsule PO (21:56)
[2021-10-07] MEDS: TERBINAFINE HCL 250 MG TABLET PO (21:57)
[2021-10-08 05:12] LABS: Absolute Lymphocyte Count 0.61 X10^3/uL (0.83-4.51); Absolute Neutrophil Count 9.6 X10^3/uL (2.0-7.7); Basophil# 0.03 X10^3/uL; Basophil% 0.3 % (0-1); Hematocrit 38.4 % (40-54); Hemoglobin 12.8 g/dL (13.0-16.5); Lymphocyte # 0.61 X10^3/ul (0.83-4.51); Lymphocyte % 5.7 % (19-41); Mean Corp Hgb Conc 33.3 g/dL (32-36); Mean Corpuscular Hgb 30.6 pg (27.0-32.0); Mean Corpuscular Volume 91.9 fL (80-94); Mean Platelet Vol. 10.8 fl (6.2-12.0); Monocyte# 0.47 X10^3/uL; Monocyte% 4.4 % (0-10); NRBC Flagged by Analyzer 0 % (0-5); Neutrophil # 9.55 X10^3/uL (2.7-7.7); Neutrophil % 89.1 % (47-70); Platelet Count 174 K/mm3 (150-450); RBC Distribution Width CV 14.4 % (11.6-14.6); RBC Distribution Width SD 48.5 fl (35.1-43.9); Red Blood Count 4.18 M/mm3 (4.6-6.2); White Blood Count 10.7 K/mm3 (4.4-11.0)
[2021-10-08 05:33] LABS: Anion Gap 7 (5-15); BUN 18 mg/dL (7-18); BUN/Creat Ratio 16.4 RATIO (10-20); Calcium,Total 7.8 mg/dL (8.5-10.1); Chloride 104 mmol/L (98-107); EST Glomerular Filtration Rate 70 mL/min (>60); Est Glom Filt Rate - Afr Amer 84 mL/min (>60); Estimated Creatinine Clearance 52.19 ml/min; Glucose 90 mg/dL (74-106); Potassium 3.8 mmol/L (3.5-5.1); Sodium Level 136 mmol/L (136-145)
[2021-10-08 06:00] VITALS: BP 111/67; PULSE 94; RESP 18; TEMP 37.3; O2SAT 97
--- NOTE | 2021-10-08 07:33 | PN.HOSP_ITS ---
Subjective Subjective Seen and examined. Patient history of Parkinson disease, poor balance and recurrent fall. He falls 2-3 times in 1 week, uses walker. Objective Data Objective Data Vital Signs: Vital Signs Temp Pulse Resp BP Pulse Ox O2 Del Method 99.1 F 94 18 111/67 97 Room Air 10/08/21 06:00 10/08/21 06:00 10/08/21 06:00 10/08/21 06:00 10/08/21 06:00 10/08/21 06:00 Oxygen Delivery Method Room Air Weight: 134 lb Body Mass Index (BMI) 20.3 Intake & Output: Intake and Output for Last 24 Hours 10/06/21 10/07/21 10/08/21 23:59 23:59 23:59 Intake Total 2200 / 2200 Balance 2200 / 2200 Lab / Micro Data Result Diagrams: 10/08/21 04:00 10/08/21 04:00 Labs: Laboratory Results - last 24 hr 10/07/21 13:15: WBC 17.0 H, RBC 5.14, Hgb 15.7, Hct 48.2, MCV 93.8, MCH 30.5, MCHC 32.6, RDW Std Deviation 48.3 H, RDW Coeff of Lexii 14.2, Plt Count 231, MPV 10.6, Immature Gran % (Auto) 1.200 H, Neut % (Auto) 93.9 H, Lymph % (Auto) 1.5 L , [place] % (Auto) 2.6, Eos % (Auto) 0.5, Baso % (Auto) 0.3, Absolute Neuts (auto) 16.0 H, Absolute Lymphs (auto) 0.26 L, Nucleated RBC % 0, Platelet Estimate ADEQUATE, RBC Morphology NORM C+C 10/07/21 13:15: Sodium 135 L, Potassium 4.3, Chloride 99, Carbon Dioxide 30.0, Anion Gap 6, BUN 18, Creatinine 1.39 H, Estim Creat Clear Calc 41.61, Est GFR (MDRD) Af Amer 64, Est GFR (MDRD) Non-Af 53 L, BUN/Creatinine Ratio 12.9, Glucose 93, Calcium 8.9, Total Bilirubin 1.00, Direct Bilirubin 0.25, AST 11 L, ALT 10 L, Alkaline Phosphatase 86, Total Protein 8.0, Albumin 3.4, Globulin 4.6 H 10/07/21 13:15: Lactic Acid 3.6 H* 10/07/21 17:58: Lactic Acid 3.0 H* 10/08/21 04:00: WBC 10.7, RBC 4.18 L, Hgb 12.8 L, Hct 38.4 L, MCV 91.9, MCH 30.6, MCHC 33.3, RDW Std Deviation 48.5 H, RDW Coeff of Lexii 14.4, Plt Count 174, MPV 10.8, Immature Gran % (Auto) 0.500, Neut % (Auto) 89.1 H, Lymph % (Auto) 5.7 L, [place] % (Auto) 4.4, Eos % (Auto) 0.0, Baso % (Auto) 0.3, Absolute Neuts (auto) 9.6 H, Absolute Lymphs (auto) 0.61 L, Nucleated RBC % 0 10/08/21 04:00: Sodium 136, Potassium 3.8, Chloride 104, Carbon Dioxide 25.0, Anion Gap 7, BUN 18, Creatinine 1.10, Estim Creat Clear Calc 52.19, Est GFR (MDRD) Af Amer 84, Est GFR (MDRD) Non-Af 70, BUN/Creatinine Ratio 16.4, Glucose 90, Calcium 7.8 L Physical Exam Narrative Physical exam General: Alert, Oriented x3, Cooperative, severe protein calorie malnutrition. 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 Air entry diminished in bilateral lung bases. No crepitation/rhonchi Cardiovascular: Regular rate, Regular Rhythm, Normal S1, Normal S2, No murmurs Abdomen: Bowel Sounds Present, Soft, Non Tender, Non-Distended : No renal angle tenderness. No suprapubic tenderness. Extremities: No edema, Capillary Refill Less than 3 Seconds Skin: No rashes, No breakdown Musculoskeletal: Moderate muscle atrophy of thigh and calf muscles. Muscle strength 4/5 at major joints of upper and lower extremities. Uses walker Neurological: Cranial nerves II-XII grossly intact, DTR 2+/4 Psych/Mental Status: Flat affect. Assessment & Plan Assessment/Plan (1) Cellulitis: QUALIFIERS: Laterality: right Site of cellulitis: extremity Site of cellulitis of extremity: lower extremity Qualified Code(s): L03.115 - Cellulitis of right lower limb PLAN: Right lower extremity cellulitis Onset was the qSOFA is 0, therefore sepsis is ruled out Plan * Follow-up on blood cultures that were performed in the emergency room * Continue with vancomycin (2) Lactic acidosis: PLAN: Patient not septic at present. Patient did receive IV fluids. No additional work-up for the lactic acidosis at this time. (3) Parkinson disease: PLAN: Complicates care and recovery. Plan: * Continue with amantadine, carbidopa?levodopa, rasagiline * Patient falls at baseline and will have physical and occupational therapy evaluate him. PLAN: Plan Chronic conditions * diabetes mellitus type 2: Per history. Patient is not on any medications. Patient has lost 150 pounds and since then he has no longer been diabetic. S evere protein calorie malnutrition as evidenced by loss of weight, diffuse muscle atrophy and loss of subcutaneous fat * BPH: Continue with tamsulosin * Onychomycosis: Chronic. According the patient's he is actually had improvement with recent treatment. VTE prophylaxis with enoxaparin CODE STATUS: Addressed with the patient. Patient wishes to be full code. Charges/Coding Visit Charges Inpatient E&M: 28918 Subs Hosp L2
[2021-10-08 07:38] VITALS: BP 109/60; PULSE 91; RESP 18; TEMP 37.3; O2SAT 98
[2021-10-08] MEDS: Enoxaparin 40 MG/0.4 ML Syringe SC (07:58)
[2021-10-08] MEDS: Amantadine 100 MG Capsule PO ×2 (07:59→11:28)
[2021-10-08] MEDS: CARBIDOPA/LEVODOPA 1 EACH CAPSULE.ER 3 EACH PO (08:00)
--- NOTE | 2021-10-08 09:50 | CASEMGMT ---
MICHELLE KRAMER Face to Face with patient for initial transition planning/care coordination assessment. RN CM introduced self and role at [facility]. Patient lying in bed, alert and oriented. Patient willing to participate in assessment and is able to answer all questions appropriately. Care providers, pharmacy, and demographics verified. Patient wishes to discharge home, denies need for home health at this time. Patient states he has no further needs or concerns at this time. CM to follow for discharge planning needs that may arise. PCP: Brayan Specialists: VIANCA John neurologist Preferred Pharmacy: [facility] Insurance: [facility], [employer] Prescription Benefit: yes Living Will/HPOA: yes, Yamileth [place] LNOK: Living Arrangements: Patient lives with in a single story home with 3 steps and railing to enter the home. Patient states he is normally independent for selfcare at home, sometimes assists with ADLs. Transportation: DME/HHC: Patient states he has walker, grab bars, and raised toilet at home. Patient denies previous HHC. Patient states he has been to [facility] Disposition Plan: Patient to discharge home with family support and follow-up plans in place. Zayra FINK, RN, CM
[2021-10-08 11:20] VITALS: BP 130/75; PULSE 75; RESP 18; TEMP 36.5; O2SAT 96
[2021-10-08 15:30] VITALS: BP 120/94; PULSE 84; RESP 20; TEMP 36.9; O2SAT 100
[2021-10-08] MEDS: CARBIDOPA/LEVODOPA 1 EACH CAPSULE.ER 4 EACH PO (16:50)
[2021-10-08 17:42] LABS: M R Staph aureus DNA By PCR Negative (Negative); Probe Check PASS; Specimen Processing Control PASS
[2021-10-08 21:27] VITALS: BP 140/78; PULSE 87; RESP 18; TEMP 37.3; O2SAT 98
[2021-10-08] MEDS: CARBIDOPA/LEVODOPA 1 EACH CAPSULE.ER PO (21:32)
[2021-10-08] MEDS: Tamsulosin HCl 0.4 MG Capsule PO (21:32)
[2021-10-08] MEDS: TERBINAFINE HCL 250 MG TABLET PO (21:32)
[2021-10-09 04:40] VITALS: BP 141/85; PULSE 78; RESP 18; TEMP 37.4; O2SAT 100
[2021-10-09] MEDS: Acetaminophen 325 MG Tablet 650 MG PO (04:52)
--- NOTE | 2021-10-09 07:29 | PN.HOSP_ITS ---
Objective Data Objective Data Vital Signs: Vital Signs Temp Pulse Resp BP Pulse Ox O2 Del Method 99.3 F H 78 18 141/85 H 100 Room Air 10/09/21 04:40 10/09/21 04:40 10/09/21 04:40 10/09/21 04:40 10/09/21 04:40 10/09/21 04:40 Oxygen Delivery Method Room Air Weight: 134 lb Body Mass Index (BMI) 20.3 Intake & Output: Intake and Output for Last 24 Hours 10/07/21 10/08/21 10/09/21 23:59 23:59 23:59 Intake Total 0 / 2200 1012.25 / 1012.25 0 / 0 Balance 0 / 0 1012.25 / 1012.25 0 / 0 Lab / Micro Data Result Diagrams: 10/08/21 04:00 10/08/21 04:00 Labs: Laboratory Results - last 24 hr 10/08/21 13:30: MRSA (PCR) Negative Micro: Microbiology 10/07/21 13:50 Blood Culture (Wb) - Left Forearm Blood Culture - Preliminary No growth in 48 hours. 10/07/21 13:13 Blood Culture (Wb) - Anticubital Right Blood Culture - Preliminary No growth in 48 hours. Physical Exam Narrative Physical exam General: Alert, Oriented x3, Cooperative, severe protein calorie malnutrition. 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 Air entry diminished in bilateral lung bases. No crepitation/rhonchi Cardiovascular: Regular rate, Regular Rhythm, Normal S1, Normal S2, No murmurs Abdomen: Bowel Sounds Present, Soft, Non Tender, Non-Distended : No renal angle tenderness. No suprapubic tenderness. Extremities: No edema, Capillary Refill Less than 3 Seconds Skin: No rashes, No breakdown Musculoskeletal: Moderate muscle atrophy of thigh and calf muscles. Muscle strength 4/5 at major joints of upper and lower extremities. Uses walker Neurological: Cranial nerves II-XII grossly intact, DTR 2+/4 Psych/Mental Status: Flat affect. Assessment & Plan Assessment/Plan (1) Cellulitis: QUALIFIERS: Site of cellulitis: extremity Site of cellulitis of extremity: lower extremity Laterality: right Qualified Code(s): L03.115 - Cellulitis of right lower limb PLAN: Right lower extremity cellulitis Onset was the qSOFA is 0, therefore sepsis is ruled out Plan * Follow-up on blood cultures that were performed in the emergency room * Continue with vancomycin (2) Lactic acidosis: PLAN: Patient not septic at present. Patient did receive IV fluids. No additional work-up for the lactic acidosis at this time. (3) Parkinson disease: PLAN: Complicates care and recovery. Plan: * Continue with amantadine, carbidopa?levodopa, rasagiline * Patient falls at baseline and will have physical and occupational therapy evaluate him. PLAN: Plan Chronic conditions * diabetes mellitus type 2: Per history. Patient is not on any medications. Patient has lost 150 pounds and since then he has no longer been diabetic. Severe protein calorie malnutrition as evidenced by loss of weight, diffuse mu scle atrophy and loss of subcutaneous fat * BPH: Continue with tamsulosin * Onychomycosis: Chronic. According the patient's he is actually had improvement with recent treatment. VTE prophylaxis with enoxaparin CODE STATUS: Addressed with the patient. Patient wishes to be full code.
--- NOTE | 2021-10-09 08:52 | VDLE_ITS ---
[id number] VL^VDU^Venous Duplex US - Bimal Extrem [id number] Reason For Study: Swelling RIGHT LEFT GSV is normal. GSV is normal. CFV is compressible, spontaneous, phasic, CFV is compressible, spontaneous, phasic, competent and demonstrates normal competent, and demonstrates normal augmentation. augmentation. FV is compressible, spontaneous, phasic, FV is compressible, spontaneous, phasic, competent and demonstrates normal competent and demonstrates normal augmentation. augmentation. POP V is compressible, spontaneous, phasic, POP V is compressible, spontaneous, phasic, competent and demonstrates normal competent and demonstrates normal augmentation. augmentation. T/P Trunk is compressible. T/P Trunk is compressible. PTV is compressible. PTV is compressible. RT PerV is compressible. LT PerV is compressible. Procedure This is a venous duplex using B-mode, color flow and spectral Doppler. Exam performed portable in patient room. A preliminary report was called and/or faxed to [facility] psychiatric. VL/Venous Duplex US - Bimal Extrem Interpretation Summary No evidence for acute deep venous thrombosis bilateral lower extremities with p atent and compressible bilateral great saphenous veins. Ordering Physician: Connor Toro Referring Physician: Nico Schmidt Performed By: Zayra Bernabe RVT
[2021-10-09] MEDS: Amantadine 100 MG Capsule PO ×2 (09:04→12:55)
[2021-10-09] MEDS: CARBIDOPA/LEVODOPA 1 EACH CAPSULE.ER 3 EACH PO (09:06)
[2021-10-09] MEDS: Enoxaparin 40 MG/0.4 ML Syringe SC (09:08)
--- NOTE | 2021-10-09 10:10 | CASEMGMT ---
RN CM in to pt room, pt states he feels comfortable going home. He states that he was going to outpt therapy and plans to resume. Pt denies further homegoing needs. Discussed Patient Link with Venkatesh, referral placed.
[2021-10-09 10:40] VITALS: BP 124/71; PULSE 79; RESP 18; TEMP 37.1; O2SAT 98
--- NOTE | 2021-10-09 11:00 | DCINST_ITS ---
Discharge Instructions Diet Discharge Diet: No restrictions Activity Discharge Activity: Return to Normal Activity and May Not Drive Dressing / Incision Call your doctor if you observe: Fever of 101 or Higher, Coldness, Increased Pain, Numbness or Tingling, Change in Color, Inability to urinate, Inability to have a bowel movement, Shortness of breath, Dizziness, Fainting spells, Swelling in the ankles, Chest pain, Prolonged hiccupping, Increased palpitations (irregular heartbeat), Calf discomfort and Uncontrolled pain Follow Up Care Test Results: Test results from this visit will be discussed in further detail at your follow- up appointment, if applicable. Discharge Plan Admission Admit Date/Time: 10/07/21 14:25 Attending Provider: Connor Toro Primary Care Provider: Nico Schmidt Consulting Providers: Phani Villeda Discharge Orders/Prescriptions Prescriptions: New cephalexin 500 mg tablet 500 mg PO TID Qty: 21 0RF sulfamethoxazole-trimethoprim [Bactrim DS] 800-160 mg tablet 1 tab PO BID Qty: 10 0RF L. acidophilus/Bifid. animalis 2 billion cell capsule 1 cap PO BID 10 Days Qty: 20 0RF Rx Instructions: Available over the counter. Any probiotic for 10 days Continued tamsulosin [Flomax] 0.4 MG capsule 0.4 mg PO QHS amantadine HCl 100 mg capsule 100 mg PO BID Label Comments: Rx Instructions: 0800, 1300 rasagiline 1 mg tablet 1 mg PO DAILY Label Comments: carbidopa-levodopa 1 EACH capsule, extended release 4 cap PO LUNCH Rx Instructions: 0800,1300,1800 carbidopa-levodopa 1 EACH capsule, extended release 3 ea PO BREAKFAST carbidopa-levodopa 1 EACH capsule, extended release 4 ea PO DINNER terbinafine HCl 250 mg tablet 250 mg PO QHS Label Comments: TAKE 1 TABLET BY MOUTH EVERY DAY Rytary 36.25-145 mg capsule, extended release 1 cap PO QHS Label Comments: TAKE 3 CAPSULES AT 8AM, AND 4 CAPSULES AT 1PM, AND AT 6PM AND 1 CAPSULE AT 11PM Referrals / Follow Up: Nico Schmidt [Primary Care Provider] - Disposition Disposition (needs filled in before D/C Order can be placed): Home, Self Care
--- NOTE | 2021-10-09 11:45 | PCM.DC.SUM ---
Providers Date of Admission: 10/07/21 Primary Care Physician: Nico Schmidt Reason For Visit: CELLULITIS Diagnosis Discharge Diagnosis (1) Cellulitis: Status: Acute Code(s): L03.90 - Cellulitis, unspecified Qualifiers: Site of cellulitis: extremity Site of cellulitis of extremity: lower extremity Laterality: right Qualified Code(s): L03.115 - Cellulitis of right lower limb Plan: This is a 70-year-old gentleman was admitted with 2-day history of erythema, pain and swelling of right lower extremity from mid thigh distally. Patient had fever and chills. Patient was admitted [facility] floor. Patient was started on IV vancomycin and IV fluid. Venous duplex ultrasound was negative for DVT. At time of admission sepsis was ruled out as patient did not meet sepsis criteria with qSOFA score 0, did not look septic and did not had hypotension or 2 organ-specific dysfunction. Blood culture negative for more than 48 hours. Patient was treated with IV vancomycin. Discharged on Keflex for 7 days and Bactrim DS for 5 more days. Discharge diagnosis: Complicated skin and soft tissue infection/cellulitis of right lower extremity in view of history of Parkinson disease, onychomycosis of toenails and diabetes mellitus type 2. (2) Lactic acidosis: Status: Acute Code(s): E87.2 - Acidosis Plan: Patient not septic at present. Patient did receive IV fluids. No additional work-up for the lactic acidosis at this time. (3) Parkinson disease: Status: Chronic Code(s): G20 - Parkinson's disease Plan: Complicates care and recovery. Plan: Continue with amantadine, carbidopa?levodopa, rasagiline Patient falls at baseline and will have physical and occupational therapy evaluate him. Plan Chronic conditions diabetes mellitus type 2: Per history. Patient is not on any medications. Patient has lost 150 pounds and since then he has no longer been diabetic. Severe protein calorie malnutrition as evidenced by loss of weight, diffuse muscle atrophy and loss of subcutaneous fat BPH: Continue with tamsulosin Onychomycosis: Chronic. According the patient's he is actually had improvement with recent treatment. VTE prophylaxis with enoxaparin Discharge medication reconciliation done. Discharge follow-up instructions completed. Discharge process discussed with the patient and all questions were answered to patient's satisfaction. Total time spent, exact 35 minutes on discharge meds reconciliation, examination, coordination of care with nurses and ancillary staff, review of imaging and blood test and discussion with the patient on follow-up instructions. Medications at Discharge Home Medications tamsulosin 0.4 mg capsule (Flomax) 0.4 mg PO QHS PROSTATE 10/24/17 carbidopa ER 36.25 mg-levodopa 145 mg capsule,extended release 4 cap PO LUNCH parkinsons 04/19/19 carbidopa ER 36.25 mg-levodopa 145 mg capsule,extended release 3 ea PO BREAKFAST 10/28/19 carbidopa ER 36.25 mg-levodopa 145 mg capsule,extended release 4 ea PO DINNER 10/28/19 amantadine HCl 100 mg capsule 100 mg PO BID pain 11/16/20 rasagiline 1 mg tablet 1 mg PO DAILY parkinsons 11/16/20 carbidopa ER 36.25 mg-levodopa 145 mg capsule,extended release (Rytary) 1 cap PO QHS parkinsons 10/07/21 terbinafine HCl 250 mg tablet 250 mg PO QHS finger fungal infection 10/07/21 Lactobacillus acidophilus-Bifidobac.animalis 2 billion cell capsule 1 cap PO BID 10 days #20 caps 10/09/21 cephalexin 500 mg tablet 500 mg PO TID #21 tabs 10/09/21 sulfamethoxazole 800 mg-trimethoprim 160 mg tablet (Bactrim DS) 1 tab PO BID #10 tabs 10/09/21 Physical Exam Narrative Physical exam General: Alert, Oriented x3, Cooperative, severe protein calorie malnutrition. 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 Air entry diminished in bilateral lung bases. No crepitation/rhonchi Cardiovascular: Regular rate, Regular Rhythm, Normal S1, Normal S2, No murmurs Abdomen: Bowel Sounds Present, Soft, Non Tender, Non-Distended : No renal angle tenderness. No suprapubic tenderness. Extremities: No edema, Capillary Refill Less than 3 Seconds Skin: Erythema, tenderness and induration better on right lower extremity. The extent of cellulitis improved. Right leg slightly bigger than left leg but venous duplex negative for DVT. Musculoskeletal: Moderate muscle atrophy of thigh and calf muscles. Muscle strength 4/5 at major joints of upper and lower extremities. Uses walker Neurological: Cranial nerves II-XII grossly intact, DTR 2+/4 Psych/Mental Status: Flat affect. Weight / BMI Weight Weight: 134 lb Body Mass Index (BMI) 20.3 ABG / Lab / Microbiology Data Result Diagrams: 10/08/21 04:00 10/08/21 04:00 Laboratory: Laboratory Results - last 24 hr 10/08/21 13:30: MRSA (PCR) Negative Microbiology: Microbiology 10/07/21 13:50 Blood Culture (Wb) - Left Forearm Blood Culture - Preliminary No growth in 48 hours. 10/07/21 13:13 Blood Culture (Wb) - Anticubital Right Blood Culture - Preliminary No growth in 48 hours. D/C Instructions Discharge Diet: No restrictions Call your doctor if you observe: Fever of 101 or Higher, Coldness, Increased Pain, Numbness or Tingling, Change in Color, Inability to urinate, Inability to have a bowel movement, Shortness of breath, Dizziness, Fainting spells, Swelling in the ankles, Chest pain, Prolonged hiccupping, Increased palpitations (irregular heartbeat), Calf discomfort and Uncontrolled pain Meaningful Use Info Meaningful Use Diagnoses (Choose all that apply): None applicable Discharge Plan Admission Admit Date/Time: 10/07/21 14:25 Attending Provider: Connor Toro Primary Care Provider: Nico Schmidt Consulting Providers: Phani Villeda Discharge Orders/Prescriptions Prescriptions: New cephalexin 500 mg tablet 500 mg PO TID Qty: 21 0RF sulfamethoxazole-trimethoprim [Bactrim DS] 800-160 mg tablet 1 tab PO BID Qty: 10 0RF L. acidophilus/Bifid. animalis 2 billion cell capsule 1 cap PO BID 10 Days Qty: 20 0RF Rx Instructions: Available over the counter. Any probiotic for 10 days Continued tamsulosin [Flomax] 0.4 MG capsule 0.4 mg PO QHS amantadine HCl 100 mg capsule 100 mg PO BID Label Comments: Rx Instructions: 0800, 1300 rasagiline 1 mg tablet 1 mg PO DAILY Label Comments: carbidopa-levodopa 1 EACH capsule, extended release 4 cap PO LUNCH Rx Instructions: 0800,1300,1800 carbidopa-levodopa 1 EACH capsule, extended release 3 ea PO BREAKFAST carbidopa-levodopa 1 EACH capsule, extended release 4 ea PO DINNER terbinafine HCl 250 mg tablet 250 mg PO QHS Label Comments: TAKE 1 TABLET BY MOUTH EVERY DAY Rytary 36.25-145 mg capsule, extended release 1 cap PO QHS Label Comments: TAKE 3 CAPSULES AT 8AM, AND 4 CAPSULES AT 1PM, AND AT 6PM AND 1 CAPSULE AT 11PM Referrals / Follow Up: Nico Schmidt [Primary Care Provider] - Disposition Disposition (needs filled in before D/C Order can be placed): Home, Self Care Charges/Coding Visit Charges Inpatient E&M: 63648 Disch Hosp
--- NOTE | 2021-10-09 14:25 | PHA.DC.MR ---
Pharmacy Service has performed discharge medication reconciliation for this patient. The patient's discharge medication list was reviewed for discrepancies and discrepancies were resolved. Medication education papers prepared but patient was already gone when counseling was attempted. Home Medications tamsulosin 0.4 mg capsule (Flomax) 0.4 mg PO QHS PROSTATE 10/24/17 carbidopa ER 36.25 mg-levodopa 145 mg capsule,extended release 4 cap PO LUNCH parkinsons 04/19/19 carbidopa ER 36.25 mg-levodopa 145 mg capsule,extended release 3 ea PO BREAKFAST 10/28/19 carbidopa ER 36.25 mg-levodopa 145 mg capsule,extended release 4 ea PO DINNER 10/28/19 amantadine HCl 100 mg capsule 100 mg PO BID pain 11/16/20 rasagiline 1 mg tablet 1 mg PO DAILY parkinsons 11/16/20 carbidopa ER 36.25 mg-levodopa 145 mg capsule,extended release (Rytary) 1 cap PO QHS parkinsons 10/07/21 terbinafine HCl 250 mg tablet 250 mg PO QHS finger fungal infection 10/07/21 Lactobacillus acidophilus-Bifidobac.animalis 2 billion cell capsule 1 cap PO BID 10 days #20 caps 10/09/21 cephalexin 500 mg tablet 500 mg PO TID #21 tabs 10/09/21 sulfamethoxazole 800 mg-trimethoprim 160 mg tablet (Bactrim DS) 1 tab PO BID #10 tabs 10/09/21
== END 2021-10-09 13:30 | disposition home or self-care (01) | DRG 602 ==
LOC: ED 14:39 → MS3 15:12
PROVIDERS: Emergency Provider Emergency Medicine; PCP Family Medicine; Visit Provider Internal Medicine
DX: L03.115 Cellulitis of right lower limb (principal); E43 Unspecified severe protein-calorie malnutrition; E87.2 Acidosis; G20 Parkinson's disease; E78.5 Hyperlipidemia, unspecified; B35.1 Tinea unguium; I10 Essential (primary) hypertension; R29.6 Repeated falls; N40.0 Benign prostatic hyperplasia without lower urinary tract symptoms; Z79.899 Other long term (current) drug therapy
CPT/HCPCS: 36415; 80048; 80076; 83605; 85025; 87040; 87641; 93970; 97162; 97166; 99285; J7030; J7050; A4216

== ENCOUNTER 2022-03-25 18:31 | Emergency (ER) | payer MEDICARE, OTHER, SELFPAY ==
[2022-03-25 18:33] VITALS: BP 131/82; PULSE 94; RESP 14; TEMP 36.6; O2SAT 100; BMI 18.2
--- NOTE | 2022-03-25 19:42 | RAD_ITS ---
INDICATION: DEFORMITY EXAMINATION/TECHNIQUE: X-RAY - RIGHT HAND XR Fingers Min 2 Views 3 VIEWS COMPARISON: None. RAD/Finger(s) Min 2 Views IMPRESSION: Ulnar and dorsal dislocation of the fourth PIP joint. No finding of fracture. Electronically Signed: Nico Dent MD at 19:59 EST ,
--- NOTE | 2022-03-25 20:44 | EX.ED.UPPERE ---
HPI History of Present Illness Chief Complaint: Upper Extremity Injury Narrative Narrative: 71-year-old male past medical history of Parkinson's disease fell approximately 4 hours ago onto his right hand. He states that he is not right-hand dominant. He sustained an injury to his right fourth digit. He denies other injury. He noted deformity at the PIP joint after his fall and now cannot move his right fourth finger/ring finger. He denies other injury. [facility] Medical History BPH (benign prostatic hyperplasia) Cellulitis Closed traumatic nondisplaced fracture of four ribs of right side Difficulty balancing when standing DMII (diabetes mellitus, type 2) HLD (hyperlipidemia) HTN (hypertension) Parkinson disease Home Medications tamsulosin 0.4 mg capsule (Flomax) 0.4 mg PO QHS PROSTATE 10/24/17 [History Last Taken 04/18/19] carbidopa ER 36.25 mg-levodopa 145 mg capsule,extended release 4 cap PO LUNCH parkinsons 04/19/19 [History Last Taken 04/19/19] carbidopa ER 36.25 mg-levodopa 145 mg capsule,extended release 3 ea PO BREAKFAST 10/28/19 [History Last Taken Unknown] carbidopa ER 36.25 mg-levodopa 145 mg capsule,extended release 4 ea PO DINNER 10/28/19 [History Last Taken Unknown] amantadine HCl 100 mg capsule 100 mg PO BID pain 11/16/20 [History Last Taken Unknown] rasagiline 1 mg tablet 1 mg PO DAILY parkinsons 11/16/20 [History Last Taken Unknown] carbidopa ER 36.25 mg-levodopa 145 mg capsule,extended release (Rytary) 1 cap PO QHS parkinsons 10/07/21 [History Last Taken Unknown] terbinafine HCl 250 mg tablet 250 mg PO QHS finger fungal infection 10/07/21 [History Last Taken 10/07/21] Lactobacillus acidophilus-Bifidobac.animalis 2 billion cell capsule 1 cap PO BID 10 days #20 caps 10/09/21 [Rx Last Taken Unknown] cephalexin 500 mg tablet 500 mg PO TID #21 tabs 10/09/21 [Rx Last Taken Unknown] sulfamethoxazole 800 mg-trimethoprim 160 mg tablet (Bactrim DS) 1 tab PO BID #10 tabs 10/09/21 [Rx Last Taken Unknown] Allergy/AdvReac Type Severity Reaction Status Date / Time Penicillins [PCN] Allergy Unknown Verified 03/25/22 18:33 Family History Father No problems noted. Mother No problems noted. Other Parkinsons disease Social History Smoking Status: Never smoker alcohol intake: never ROS ROS ED ROS Narrative Constitutional: No fever, no chills. HEENT: No sore throat. No neck pain. No loss of vision. No rhinorrhea. Cardiovascular: No chest pain. No palpitations. No pedal edema. Respiratory: No cough, no shortness of breath. Abdominal: No abdominal pain. No nausea. No vomiting. Genitourinary: No dysuria. No hematuria. Musculoskeletal: No myalgias. Right fourth finger deformity. Neurologic: No headaches. No dizziness. No lightheadedness. Skin: No rash. No change in color. Psychiatric: No depression. No anxiety. EXAM Physical Exam Narrative Exam Narrative: Afebrile. Vital signs noted. HEENT: Normocephalic. Atraumatic. PERRL, EOMI. Neck soft and supple. No point tenderness or step off. Cardiovascular: Regular rate and rhythm. No murmurs, rubs, or gallops appreciated. Respiratory: No tachypnea. Lungs clear to auscultation bilaterally. Gastrointestinal: Abdomen soft, nontender, with normoactive bowel sounds. No rebound or guarding. Neurological: Awake. Alert. Nonfocal, nonlateralizing. Skin: No rash. Normal color. No pallor. Musculoskeletal: No pedal edema. Full range of motion extremities. Ulnar deviation and dorsal deviation of right fourth digit PIP. Onychomycosis of nails on hands. Uninjured at the wrist and above. Const Vital Signs: 03/25/22 18:33 Temperature 98 F Temperature Source Temporal Pulse Rate 94 Respiratory Rate 14 Blood Pressure 131/82 H Blood Pressure Mean 98 Pulse Ox 100 Oxygen Delivery Method Room Air MDM MDM MDM Narrative Medical decision making narrative: X-rays were obtained in triage and interpreted by myself of the fourth digit. There is evidence of dislocation on my interpretation both dorsally with ulnar deviation. No evidence of fracture. Initial attempt was made to reduce his digit, but he did not tolerate this. Lidocaine 1% was used for digital block of the fourth digit. Reduction was attempted and I believe was successful on the second attempt. Postreduction x-rays were obtained and interpreted by myself. There is normal alignment of the fourth digit PIP joint. I reviewed the radiology report and they confirm. He will be placed in an aluminum foam splint and will follow up with orthopedics, Dr. Lilly. Disposition is discharged home in improved and stable condition. Radiography Diagnostic Testing: Clinical Impression(s) from Imaging Studies Finger X-Ray 03/25/22 19:42 IMPRESSION: Ulnar and dorsal dislocation of the fourth PIP joint. No finding of fracture. Electronically Signed: Nico Dent MD at 19:59 EST , Discharge Plan Triage Chief Complaint: Upper Extremity Injury ED Provider: Wyatt Islas Dx/Rx/DC Orders Clinical Impression: Fall, Closed dislocation finger, proximal interphalangeal joint, traumatic Instructions: ED Finger Dislocation Prescriptions: No Action tamsulosin [Flomax] 0.4 MG capsule 0.4 mg PO QHS amantadine HCl 100 mg capsule 100 mg PO BID Label Comments: Rx Instructions: 0800, 1300 rasagiline 1 mg tablet 1 mg PO DAILY Label Comments: carbidopa-levodopa 1 EACH capsule, extended release 4 cap PO LUNCH Rx Instructions: 0800,1300,1800 carbidopa-levodopa 1 EACH capsule, extended release 3 ea PO BREAKFAST carbidopa-levodopa 1 EACH capsule, extended release 4 ea PO DINNER terbinafine HCl 250 mg tablet 250 mg PO QHS Label Comments: TAKE 1 TABLET BY MOUTH EVERY DAY Rytary 36.25-145 mg capsule, extended release 1 cap PO QHS Label Comments: TAKE 3 CAPSULES AT 8AM, AND 4 CAPSULES AT 1PM, AND AT 6PM AND 1 CAPSULE AT 11PM cephalexin 500 mg tablet 500 mg PO TID Qty: 21 0RF sulfamethoxazole-trimethoprim [Bactrim DS] 800-160 mg tablet 1 tab PO BID Qty: 10 0RF L. acidophilus/Bifid. animalis 2 billion cell capsule 1 cap PO BID 10 Days Qty: 20 0RF Rx Instructions: Available over the counter. Any probiotic for 10 days Primary Care Provider: Nico Schmidt Referrals: Jose Luis Lilly DO [Med Staff - Active Staff] - 5-7 Days Nico Schmidt [Primary Care Provider] - Activity Restrictions/Additional Instructions: Wear your finger splint until cleared by orthopedics. Disposition Disposition: Home, Self Care
--- NOTE | 2022-03-25 20:55 | RAD_ITS ---
INDICATION: post reduction -- ring finger EXAMINATION/TECHNIQUE: X-RAY - RIGHT HAND XR Fingers Min 2 Views 3 VIEWS COMPARISON: One hour earlier RAD/Finger(s) Min 2 Views IMPRESSION: Anatomic alignment of fourth PIP joint. Electronically Signed: Nico Dent MD at 21:12 EST ,
== END 2022-03-25 21:54 | disposition home or self-care (01) ==
LOC: ED 20:58
PROVIDERS: Emergency Provider Emergency Medicine; PCP Family Medicine; Visit Provider Emergency Medicine
DX: S63.285A Dislocation of proximal interphalangeal joint of left ring finger, initial encounter (principal); W19.XXXA Unspecified fall, initial encounter
CPT/HCPCS: 73140; 99283

== ENCOUNTER 2022-07-23 14:24 | Inpatient (IN) | payer MEDICARE, OTHER, SELFPAY ==
[2022-07-23] VITALS (10 sets, daily range): BP systolic 117–147; BP diastolic 71–107; PULSE 63–114; RESP 16–32; TEMP 36.7–37.7; O2SAT 94–98; BMI 20.6; BMI 20.2
--- NOTE | 2022-07-23 14:48 | EKG12_ITS ---
Test Reason : CELL Blood Pressure : / mmHG Vent. Rate : 112 BPM Atrial Rate : 112 BPM P-R Int : 120 ms QRS Dur : 080 ms QT Int : 304 ms P-R-T Axes : -03 032 086 degrees QTc Int : 414 ms Sinus tachycardia Otherwise normal ECG Confirmed by [employer] GALEAS, MONROE ([id number]), editor magazine [facility] ([id number]) on 07/24/2022 9:13:32 AM Referred By: Confirmed By:MONROE MARINELLI MD
--- NOTE | 2022-07-23 14:49 | EX.ED.DYSGE1 ---
HPI History of Present Illness Chief Complaint: Cellulitis Narrative Narrative: 71-year-old male past medical history of Parkinson's disease presents with his because of warmth and swelling of his left lower extremity with concern for cellulitis. He has had cellulitis multiple times in the past, the last time being last year when it was on his right leg. His states that his cellulitis tends to spread rapidly. He has been hospitalized 3 times at this facility, and 1 time in [place]. Last night they noticed redness and warmth in the area of his proximal lower leg. His states that his leg swelled up and became more red with red streaking today. He felt warm to the touch, but has not taken any Tylenol or ibuprofen today. They are concerned regarding his cellulitis of his left lower leg at this time. Additionally, his states that with his Parkinson disease he usually does not move much however she states that last night he was thrashing about and today continues to rise on the bed, moving his bilateral lower extremities. [facility] Medical History (Updated 07/23/22 @ 18:45 by Sue Quintanilla) BPH (benign prostatic hyperplasia) Cellulitis Closed traumatic nondisplaced fracture of four ribs of right side Difficulty balancing when standing DMII (diabetes mellitus, type 2) HLD (hyperlipidemia) HTN (hypertension) Parkinson disease Parkinson's disease Home Medications amantadine HCl 100 mg capsule 100 mg PO DAILY PAIN 11/16/20 [History Last Taken 07/23/22] rasagiline 1 mg tablet 1 mg PO DAILY PARKINSONS 11/16/20 [History Last Taken 07/23/22] carbidopa ER 36.25 mg-levodopa 145 mg capsule,extended release (Rytary) 3 cap PO 0800 parkinsons 10/07/21 [History Last Taken 07/23/22] terbinafine HCl 250 mg tablet 250 mg PO QHS ANTIFUNGAL 10/07/21 [History Last Taken 07/22/22] Myrbetriq 07/23/22 [History Last Taken Unknown] carbidopa ER 36.25 mg-levodopa 145 mg capsule,extended release (Rytary) 1 cap PO QHS PARKINSONS 07/23/22 [History Last Taken 07/22/22] carbidopa ER 36.25 mg-levodopa 145 mg capsule,extended release (Rytary) 4 cap PO 1230 PARKISONS 07/23/22 [History Last Taken 07/23/22] carbidopa ER 36.25 mg-levodopa 145 mg capsule,extended release (Rytary) 4 cap PO 1730 PARKISONS 07/23/22 [History Last Taken 07/22/22] Allergy/AdvReac Type Severity Reaction Status Date / Time Penicillins [PCN] Allergy Unknown Verified 07/23/22 17:22 Family History Father No problems noted. Mother No problems noted. Other Parkinsons disease Social History Smoking Status: Never smoker alcohol intake: never ROS ROS ED ROS Narrative Constitutional: No fever, but felt warm to touch, no chills. HEENT: No sore throat. No neck pain. No loss of vision. No rhinorrhea. Cardiovascular: No chest pain. No palpitations. No pedal edema. Respiratory: No cough, no shortness of breath. Abdominal: No abdominal pain. No nausea. No vomiting. Genitourinary: No dysuria. No hematuria. Musculoskeletal: No myalgias. No arthralgias. Neurologic: No headaches. No dizziness. No lightheadedness. Skin: No rash. Warmth, redness to left lower extremity. Psychiatric: No depression. No anxiety. EXAM Physical Exam Narrative Exam Narrative: Afebrile. Vital signs noted. HEENT: Normocephalic. Atraumatic. PERRL, EOMI. Neck soft and supple. No point tenderness or step off. Cardiovascular: Regular rate and rhythm. No murmurs, rubs, or gallops appreciated. Respiratory: No tachypnea. Lungs clear to auscultation bilaterally. Gastrointestinal: Abdomen soft, nontender, with normoactive bowel sounds. No rebound or guarding. Neurological: Awake. Alert. Nonfocal, nonlateralizing. Consistent with Parkinson disease. Skin: No rash. Positive erythema with lymphangitis left lower extremity. Palpable dorsalis pedis pulse. Musculoskeletal: No pedal edema. Full range of motion extremities. Const Vital Signs: 07/23/22 14:27 07/23/22 14:29 07/23/22 14:50 Temperature 98.4 F 98.4 F Temperature Source Oral Oral Pulse Rate 110 H 114 H Respiratory Rate 18 16 Blood Pressure 147/93 H 147/93 H Blood Pressure Mean 111 111 Pulse Ox 96 96 95 Oxygen Delivery Method Room Air Room Air Room Air 07/23/22 15:08 07/23/22 15:22 07/23/22 16:22 Temperature 99.9 F H 99.9 F H Temperature Source Temporal Temporal Pulse Rate 107 H 101 H 101 H Respiratory Rate 22 H 22 H 32 H Blood Pressure 139/107 H 139/107 H 142/83 H Blood Pressure Mean 117 117 102 Pulse Ox 97 96 98 Oxygen Delivery Method Room Air Room Air Room Air 07/23/22 16:22 07/23/22 18:00 Temperature 99.9 F H 99.3 F H Temperature Source Temporal Oral Pulse Rate 101 H 96 Respiratory Rate 32 H 31 H Blood Pressure 142/83 H 133/71 H Blood Pressure Mean 102 91 Pulse Ox 96 95 Oxygen Delivery Method Room Air Room Air Sepsis Attestation Sepsis Alert: Yes Sepsis Attestation: Agree w/Sepsis Date exam was performed: 07/23/22 Time exam was performed: 15:51 Possible Source of Sepsis: Skin/soft tissue Sepsis Organ Dysfunction Criteria Present: Lactic Acid > 2 mmol/L and New/Unexplained change in mental status (increased movement according to ) Supportive Findings: Tachycardia, elevated white count of 26,000. MDM MDM MDM Narrative Medical decision making narrative: Concern is for sepsis. Patient is tachycardic currently. Sepsis work-up was pursued. I reviewed the patient's prior records and he has had sepsis in the past with elevated white count of 17,000, requiring admission. Also, on his last visit last year he had elevated lactic acid above 3. Initially, he will be bolused normal saline here in the emergency department 1 L. Blood cultures will be obtained. EKG was obtained and interpreted by myself independently which demonstrates sinus tachycardia at 112 bpm without ectopy or acute ST changes. No STEMI. I reviewed the patient's laboratory work and he has an elevated WBC count of 26.7, hemoglobin hemoconcentrated at 17.7 with hematocrit 53.7. Platelet count normal at 277. Lactic acid initially hemolyzed but is elevated at 2.3. He has a BUN of 23 and a creatinine of 1.55 consistent with acute kidney injury. Coagulation studies are grossly negative. Chest x-ray interpreted by myself shows no acute process, no pneumonia. I do feel that his skin infection is the cause of his sepsis. He was started on cefazolin as he has an allergy to penicillin that is unknown and I reviewed his chart and he has received cefazolin in the past. He was also started on vancomycin. Patient will be discussed with the hospitalist for admission for sepsis and cellulitis. Patient discussed with Dr. Garza. Patient is in stable condition. History & Record Review Discussion w/independent historian: Patient and Significant other Additional record(s) reviewed:: Prior inpatient record, Prior ED visit and Prior labs Lab Data Attestation: I reviewed the patient's lab results. Labs: Laboratory Results - last 24 hr 07/23/22 07/23/22 07/23/22 14:39 14:39 14:39 WBC 26.7 H RBC 5.63 Hgb 17.7 H Hct 53.7 MCV 95.4 H MCH 31.4 MCHC 33.0 RDW Std Deviation 46.9 H RDW Coeff of Lexii 13.3 Plt Count 277 MPV 10.5 Immature Gran % (Auto) 1.000 H Neut % (Auto) 93.1 H Lymph % (Auto) 2.2 L [place] % (Auto) 3.4 Eos % (Auto) 0.0 Baso % (Auto) 0.3 Absolute Neuts (auto) 24.8 H Absolute Lymphs (auto) 0.59 L Nucleated RBC % 0 Differential Comment SCANNED PT Cancelled INR Cancelled APTT Cancelled Sodium 136 Potassium 4.3 Chloride 101 Carbon Dioxide 27.0 Anion Gap 8 BUN 23 H Creatinine 1.55 H Estim Creat Clear Calc 36.98 Est GFR (MDRD) Af Amer 57 L Est GFR (MDRD) Non-Af 47 L BUN/Creatinine Ratio 14.8 Glucose 123 H Lactic Acid Calcium 9.5 Total Bilirubin 0.60 AST 16 ALT 7 L Alkaline Phosphatase 84 Total Protein 8.3 H Albumin 3.4 Globulin 4.9 H Albumin/Globulin Ratio 0.7 L 07/23/22 07/23/22 07/23/22 15:05 15:30 16:10 WBC RBC Hgb Hct MCV MCH MCHC RDW Std Deviation RDW Coeff of Lexii Plt Count MPV Immature Gran % (Auto) Neut % (Auto) Lymph % (Auto) [place] % (Auto) Eos % (Auto) Baso % (Auto) Absolute Neuts (auto) Absolute Lymphs (auto) Nucleated RBC % Differential Comment PT 16.9 H INR 1.4 APTT 25.4 Sodium Potassium Chloride Carbon Dioxide Anion Gap BUN Creatinine Estim Creat Clear Calc Est GFR (MDRD) Af Amer Est GFR (MDRD) Non-Af BUN/Creatinine Ratio Glucose Lactic Acid Cancelled 2.3 H* Calcium Total Bilirubin AST ALT Alkaline Phosphatase Total Protein Albumin Globulin Albumin/Globulin Ratio Radiography Diagnostic Testing: Clinical Impression(s) from Imaging Studies Chest X-Ray 07/23/22 15:30 IMPRESSION: Stable elevation of the right hemidiaphragm. Lungs are clear. Electronically Signed: Tito Rodríguez MD at 15:47 EDT , Discharge Plan Dx/Rx/DC Orders Clinical Impression: Sepsis, Cellulitis of left anterior lower leg, History of Parkinson's disease Disposition Disposition: Acute Care Hospital [facility] Discharge Date/Time: 07/23/22 18:26
[2022-07-23 15:02] LABS: Absolute Lymphocyte Count 0.59 X10^3/uL (0.83-4.51); Absolute Neutrophil Count 24.8 X10^3/uL (2.0-7.7); Basophil# 0.09 X10^3/uL; Basophil% 0.3 % (0-1); Hematocrit 53.7 % (40-54); Hemoglobin 17.7 g/dL (13.0-16.5); Lymphocyte # 0.59 X10^3/ul (0.83-4.51); Lymphocyte % 2.2 % (19-41); Mean Corpuscular Hgb 31.4 pg (27.0-32.0); Mean Corpuscular Volume 95.4 fL (80-94); Mean Platelet Vol. 10.5 fl (6.2-12.0); Monocyte% 3.4 % (0-10); NRBC Flagged by Analyzer 0 % (0-5); Neutrophil # 24.84 X10^3/uL (2.7-7.7); Neutrophil % 93.1 % (47-70); POSITIVE DIFFERENTIAL YES; Platelet Count 277 K/mm3 (150-450); RBC Distribution Width CV 13.3 % (11.6-14.6); RBC Distribution Width SD 46.9 fl (35.1-43.9); Red Blood Count 5.63 M/mm3 (4.6-6.2); White Blood Count 26.7 K/mm3 (4.4-11.0)
[2022-07-23 15:03] LABS: Differential Indicated SCAN CRITERIA MET
[2022-07-23] MEDS: 0.9% Normal Saline 1,000 ML 999 ML IV ×2 (15:07→16:07)
[2022-07-23 15:17] LABS: ALB/GLOB Ratio 0.7 RATIO (0.9-2.4); AST(SGOT) 16 U/L (15-37); Alanine Aminotransfer ALT/SGPT 7 U/L (16-61); Albumin, Serum 3.4 g/dL (3.2-5.0); Alkaline Phosphatase 84 U/L (45-117); Anion Gap 8 (5-15); BUN 23 mg/dL (7-18); BUN/Creat Ratio 14.8 RATIO (10-20); Calcium,Total 9.5 mg/dL (8.5-10.1); Chloride 101 mmol/L (98-107); Creatinine, Serum 1.55 mg/dL (0.70-1.30); EST Glomerular Filtration Rate 47 mL/min (>60); Est Glom Filt Rate - Afr Amer 57 mL/min (>60); Estimated Creatinine Clearance 36.98 ml/min; Globulin 4.9 g/dL (2.2-4.2); Glucose 123 mg/dL (74-106); Potassium 4.3 mmol/L (3.5-5.1); Protein, Total 8.3 g/dL (6.4-8.2); Sodium Level 136 mmol/L (136-145)
[2022-07-23 15:28] LABS: Differential Comment SCANNED
--- NOTE | 2022-07-23 15:30 | RAD_ITS ---
STUDY: X-RAY CHEST REASON FOR EXAM: Male, 71 years old. cad TECHNIQUE: Single AP portable view of the chest. COMPARISON: Comparison is made with prior study of November 16, 2020. FINDINGS: EKG electrodes are seen. There is elevation of the right hemidiaphragm. There is no demonstrated pleural abnormality. Normal size heart. Normal mediastinum and pepito. Normal visualized pulmonary arteries. There is atherosclerotic tortuosity of the aortic arch and descending thoracic aorta. Normal visualized thoracic spine. Normal visualized ribs, clavicles, and shoulders. There is no demonstrated abnormality of the visualized soft tissue structures of the upper abdomen. RAD/Chest 1 View (Portable) IMPRESSION: Stable elevation of the right hemidiaphragm. Lungs are clear. Electronically Signed: Tito Rodríguez MD at 15:47 EDT ,
[2022-07-23 16:01] LABS: International Normalized Ratio 1.4; Partial Thromboplast Time 25.4 Seconds (24.1-36.2); Prothrombin Time (Protime)PT. 16.9 SECONDS (11.7-14.9)
[2022-07-23] MEDS: Cefazolin 1 GM/50 ML BAG IV (16:14)
[2022-07-23] MEDS: Vancomycin IV 1,000 MG/200 ML BAG 200 MG IV (16:34)
[2022-07-23 16:45] LABS: Lactic Acid 2.3 mmol/L (0.4-1.9)
--- NOTE | 2022-07-23 17:54 | HP.PCM.HOS_ITS ---
HPI - General General Date of Admission: 07/23/22 Date of Service: 07/23/22 HPI Narrative KATHARINE WATTS, is a 71 M with a PMH as outlined including recurrent cellulitis who presents via the ED on 07/23/2022 with a complaint of left lower extremity redness. He usually becomes septic due to cellulitis. It started as a patch on his LLE which gradually progressed and worsened, extending up his left lower extremity up to his knee, so he came in to the ED. he had associated fever and chills but had no other symptoms. He denied any nausea, vomiting, abdominal pain or any trauma to his lower extremities or any insect bites. His had noticed an excoriation on his left knee the day before and said she bandaged it but did not think much of it. He has had recurrent cellulitis in the past and has been admitted multiple times to treat this. Review of systems otherwise negative. Vitals in the ED were blood pressure 142/83, pulse rate of 101, respiratory rate of 32 and temperature of 99.9 Fahrenheit. He was saturating at 96% on room air. CBC showed hemoglobin of 17.7 with WBC of 26.7 and platelets of 277. INR was 1.4. Creatinine was 1.55 and lactic acid was 2.3 but BMP was otherwise unremarkable. Chest x-ray showed stable elevation of the right hemidiaphragm. He has been admitted to be managed for sepsis due to lower extremity cellulitis. [facility] Medical History BPH (benign prostatic hyperplasia) Cellulitis Closed traumatic nondisplaced fracture of four ribs of right side Difficulty balancing when standing DMII (diabetes mellitus, type 2) HLD (hyperlipidemia) HTN (hypertension) Parkinson disease Home Medications amantadine HCl 100 mg capsule 100 mg PO DAILY PAIN 11/16/20 [History Last Taken 07/23/22] rasagiline 1 mg tablet 1 mg PO DAILY PARKINSONS 11/16/20 [History Last Taken 07/23/22] carbidopa ER 36.25 mg-levodopa 145 mg capsule,extended release (Rytary) 3 cap PO 0800 parkinsons 10/07/21 [History Last Taken 07/23/22] terbinafine HCl 250 mg tablet 250 mg PO QHS ANTIFUNGAL 10/07/21 [History Last Taken 07/22/22] Myrbetriq 07/23/22 [History Last Taken Unknown] carbidopa ER 36.25 mg-levodopa 145 mg capsule,extended release (Rytary) 1 cap PO QHS PARKINSONS 07/23/22 [History Last Taken 07/22/22] carbidopa ER 36.25 mg-levodopa 145 mg capsule,extended release (Rytary) 4 cap PO 1230 PARKISONS 07/23/22 [History Last Taken 07/23/22] carbidopa ER 36.25 mg-levodopa 145 mg capsule,extended release (Rytary) 4 cap PO 1730 PARKISONS 07/23/22 [History Last Taken 07/22/22] Allergy/AdvReac Type Severity Reaction Status Date / Time Penicillins [PCN] Allergy Unknown Verified 07/23/22 17:22 Family History Father No problems noted. Mother No problems noted. Other Parkinsons disease Social History Smoking Status: Never smoker alcohol intake: never ROS Review of Systems ROS Unobtainable: Denies due to encephalopathy Constitutional Constitutional: Reports chills, fatigue, fever(s), malaise and weakness; Denies anorexia Eyes Eyes: Denies change in vision ENT HEENT: Denies dysphagia or headache(s) Cardiovascular Cardiovascular: Denies chest pain, dyspnea on exertion, edema, lightheadedness, orthopnea, palpitations, paroxysmal nocturnal dyspnea or rapid heart rate Respiratory/Chest Respiratory/Chest: Denies cough, dyspnea, productive cough, shortness of breath at rest or shortness of breath with exertion Gastrointestinal Gastrointestinal: Denies abdominal pain, coffee ground emesis, nausea or vomiting Genitourinary Genitourinary: Denies burning urination Musculoskeletal Musculoskeletal: Denies arthralgias Neurologic Neurologic: Denies confusion Psychiatric Psychiatric: Denies anxiety Endocrine Endocrinology: Denies change in body appearance Vital Signs Vital Signs Vital Signs: 07/23/22 14:27 07/23/22 14:29 07/23/22 14:50 Temperature 98.4 F 98.4 F Temperature Source Oral Oral Pulse Rate 110 H 114 H Respiratory Rate 18 16 Blood Pressure 147/93 H 147/93 H Blood Pressure Mean 111 111 Pulse Ox 96 96 95 Oxygen Delivery Method Room Air Room Air Room Air 07/23/22 15:08 07/23/22 15:22 07/23/22 16:22 Temperature 99.9 F H 99.9 F H Temperature Source Temporal Temporal Pulse Rate 107 H 101 H 101 H Respiratory Rate 22 H 22 H 32 H Blood Pressure 139/107 H 139/107 H 142/83 H Blood Pressure Mean 117 117 102 Pulse Ox 97 96 98 Oxygen Delivery Method Room Air Room Air Room Air 07/23/22 16:22 Temperature 99.9 F H Temperature Source Temporal Pulse Rate 101 H Respiratory Rate 32 H Blood Pressure 142/83 H Blood Pressure Mean 102 Pulse Ox 96 Oxygen Delivery Method Room Air Weight Weight: 135 lb 12.876 oz Body Mass Index (BMI) 20.6 Physical Exam Const alert, oriented x3 and no apparent distress General Appearance: cooperative HEENT normocephalic, head/scalp atraumatic, hearing grossly normal bilaterally and moist oral mucous membranes Mouth: oral and palatal mucosa normal Eyes PERRL, EOMs intact bilaterally and conjunctivae normal Neck no lymphadenopathy and supple Resp normal respiratory effort, no retractions, no use of accessory muscles and clear to auscultation bilaterally Cardio regular rhythm, S1 normal heart sound, S2 normal heart sound and no murmurs Cardio Narrative: Tachycardic GI normal to inspection, nondistended, normoactive bowel sounds, soft to palpation, non-tender and non-distended Extremity Extremity Narrative: Erythema of the left lower extremity which is extending up towards the knee. Skin Skin Narrative: erythema of the LLE from the ankle up towards the knee. Has superficial excoriations over the knee. LLE warm to touch Neuro oriented x3, CN's II-XII intact bilaterally and moves all extremities Neuro Narrative: has restless lower extremities Sensorium / Orientation: awake and alert Motor Exam: strength 5/5 throughout Psych affect normal Results Lab / Micro Data Result Diagrams: 07/23/22 14:39 07/23/22 14:39 Labs: Laboratory Results - last 24 hr 07/23/22 14:39: WBC 26.7 H, RBC 5.63, Hgb 17.7 H, Hct 53.7, MCV 95.4 H, MCH 31.4, MCHC 33.0, RDW Std Deviation 46.9 H, RDW Coeff of Lexii 13.3, Plt Count 277, MPV 10.5, Immature Gran % (Auto) 1.000 H, Neut % (Auto) 93.1 H, Lymph % (Auto) 2.2 L, [place] % (Auto) 3.4, Eos % (Auto) 0.0, Baso % (Auto) 0.3, Absolute Neuts (auto) 24.8 H, Absolute Lymphs (auto) 0.59 L, Nucleated RBC % 0, Differential Comment SCANNED 07/23/22 14:39: PT Cancelled, INR Cancelled, APTT Cancelled 07/23/22 14:39: Sodium 136, Potassium 4.3, Chloride 101, Carbon Dioxide 27.0, Anion Gap 8, BUN 23 H, Creatinine 1.55 H, Estim Creat Clear Calc 36.98, Est GFR (MDRD) Af Amer 57 L, Est GFR (MDRD) Non-Af 47 L, BUN/Creatinine Ratio 14.8, Glucose 123 H, Calcium 9.5, Total Bilirubin 0.60, AST 16, ALT 7 L, Alkaline Phosphatase 84, Total Protein 8.3 H, Albumin 3.4, Globulin 4.9 H, Albumin/Globulin Ratio 0.7 L 07/23/22 15:05: Lactic Acid Cancelled 07/23/22 15:30: PT 16.9 H, INR 1.4, APTT 25.4 07/23/22 16:10: Lactic Acid 2.3 H* Radiology Impression Chest X-Ray 07/23/22 15:30 IMPRESSION: Stable elevation of the right hemidiaphragm. Lungs are clear. Electronically Signed: Tito Rodríguez MD at 15:47 EDT , Assessment & Plan Assessment/Plan (1) Sepsis: (2) Cellulitis of left anterior lower leg: PLAN: Plan #Sepsis due to cellulitis of the LLE. * Admits to PCU as he meets sepsis criteria. Patient is febrile he is tachycardic and tachypneic and also has elevated lactic acid. * Hydrate with IV fluids. Started on IV vancomycin and cefazolin. Overall cefazolin and continue with just IV vancomycin. * Blood cultures obtained. * * #History of Alzheimer's disease: On levodopa carbidopa. #BPH: On tamsulosin DVT prophylaxis: Lovenox CODE STATUS:full code * Patient and counseled extensively about different types of CODE STATUS including full code, DNR CCA and DNR CCA. Patient elects to be full code. Total [id number] time 17 minutes. Charges/Coding Visit Charges Inpatient E&M: 46867 Init Hosp L3 Procedures Hospitalists Procedures: 88924 Advncd Care Plan 30 Min
--- NOTE | 2022-07-23 17:58 | NURSING ---
DR KATJA TORIBIO
--- NOTE | 2022-07-23 18:02 | NURSING ---
PCU KORAM SEPSIS, CELLULITIS
--- NOTE | 2022-07-23 19:44 | PCM.RX.CS ---
Consult Pharmacy has been consulted to manage selected antiobiotic: Vancomycin Type of Consult: New start Suspected Infection: Skin/Soft tissue Labs: Sodium 136 mmol/L (136-145) 07/23/22 14:39 Potassium 4.3 mmol/L (3.5-5.1) 07/23/22 14:39 Chloride 101 mmol/L (98-107) 07/23/22 14:39 Carbon Dioxide 27.0 mmol/L (21.0-32.0) 07/23/22 14:39 Anion Gap 8 (5-15) 07/23/22 14:39 BUN 23 mg/dL (7-18) H 07/23/22 14:39 Creatinine 1.55 mg/dL (0.70-1.30) H 07/23/22 14:39 Est GFR (MDRD) Af Amer 57 mL/min (>60) L 07/23/22 14:39 Est GFR (MDRD) Non-Af 47 mL/min (>60) L 07/23/22 14:39 BUN/Creatinine Ratio 14.8 RATIO (10-20) 07/23/22 14:39 Glucose 123 mg/dL (74-106) H 07/23/22 14:39 Goal Trough: 15-20 mcg/mL Pharmacy Plan for Drug Dosing: NEW START IV VANCOMYCIN Consulting Physician: Dr. Garza Indication: LLE cellulitis Goal Trough: 15-20 SrCr: 1.55 CrCl: 37 mL/min Comments: Initial dose of 1g IV ordered and administered in the ED 07/23/22 @1634 Vancomycin Dose: 750mg IV Q24hr to start 07/24/22 @1600 Pending Level: 07/25/22 @1530, prior to 3rd total dose per protocol Pharmacy Service will continue to monitor and adjust dosing as required.
[2022-07-23 20:12] LABS: Reflex Lactate? Y
[2022-07-23] MEDS: 0.9% Normal Saline 1,000 ML 125 ML IV (20:44)
[2022-07-23] MEDS: 0.9% Saline Lock 10 ML Syringe IV (20:45)
[2022-07-23] MEDS: terbinafine HCL 250 MG TABLET PO (22:05)
[2022-07-23] MEDS: CARBIDOPA/LEVODOPA 1 EACH CAPSULE.ER PO (22:07)
[2022-07-23 22:15] LABS: Lactic Acid 2.3 mmol/L (0.4-1.9)
[2022-07-24 02:25] VITALS: BP 120/68; PULSE 108; RESP 20; TEMP 36.6; O2SAT 96
[2022-07-24 04:17] LABS: Bacteria 0 SEEN /hpf (None Seen); Mucous, Urine 0 SEEN /hpf (<or=2+); Squamous Epithelial Cells - UA 0 SEEN /hpf (0-5); White Blood Cells 0 SEEN /hpf (0-5)
[2022-07-24 04:19] LABS: Color, Urine Yellow (Yellow); Glucose, Dipstick Normal (Normal); Ketone-Dipstick 5 mg/dl (Negative); Leukocyte Esterase-Dipstick Negative /ul (Negative); Nitrite-Dipstick Negative (Negative); Occult Blood-Urine 50 /ul (Negative); Protein-Dipstick 15 mg/dl (Negative); Urine Bilirubin Dipstick Negative (Negative); Urine Clarity Clear (Clear); Urine Urobilinogen Normal (Normal)
[2022-07-24 04:43] LABS: Red Blood Cells-Urine 0-5 SEEN /hpf (0-5)
[2022-07-24] MEDS: 0.9% Normal Saline 1,000 ML 125 ML IV (05:04)
[2022-07-24 06:32] LABS: Absolute Lymphocyte Count 0.56 X10^3/uL (0.83-4.51); Basophil# 0.04 X10^3/uL; Basophil% 0.3 % (0-1); Hematocrit 45.9 % (40-54); Hemoglobin 14.6 g/dL (13.0-16.5); Lymphocyte # 0.56 X10^3/ul (0.83-4.51); Mean Corp Hgb Conc 31.8 g/dL (32-36); Mean Corpuscular Hgb 30.6 pg (27.0-32.0); Mean Corpuscular Volume 96.2 fL (80-94); Mean Platelet Vol. 11.2 fl (6.2-12.0); Monocyte# 0.27 X10^3/uL; Monocyte% 1.9 % (0-10); NRBC Flagged by Analyzer 0 % (0-5); Neutrophil # 13.03 X10^3/uL (2.7-7.7); POSITIVE DIFFERENTIAL YES; Platelet Count 189 K/mm3 (150-450); RBC Distribution Width CV 13.5 % (11.6-14.6); RBC Distribution Width SD 48.1 fl (35.1-43.9); Red Blood Count 4.77 M/mm3 (4.6-6.2)
[2022-07-24 06:36] LABS: Differential Indicated SCAN CRITERIA MET
[2022-07-24 07:02] LABS: Differential Comment SCANNED
[2022-07-24 07:05] LABS: Anion Gap 6 (5-15); BUN 19 mg/dL (7-18); BUN/Creat Ratio 16.1 RATIO (10-20); Calcium,Total 8.2 mg/dL (8.5-10.1); Chloride 107 mmol/L (98-107); Creatinine, Serum 1.18 mg/dL (0.70-1.30); EST Glomerular Filtration Rate 64 mL/min (>60); Est Glom Filt Rate - Afr Amer 78 mL/min (>60); Estimated Creatinine Clearance 48.89 ml/min; Glucose 86 mg/dL (74-106); Potassium 3.9 mmol/L (3.5-5.1); Sodium Level 135 mmol/L (136-145)
[2022-07-24 07:14] VITALS: O2SAT 95
[2022-07-24 07:34] VITALS: BP 151/81; PULSE 98; RESP 18; TEMP 36.7; O2SAT 98
[2022-07-24] MEDS: CARBIDOPA/LEVODOPA 1 EACH CAPSULE.ER 3 EACH PO (07:38)
[2022-07-24] MEDS: Enoxaparin 40 MG/0.4 ML Syringe SC (07:39)
[2022-07-24] MEDS: Amantadine 100 MG Capsule PO (07:39)
--- NOTE | 2022-07-24 09:14 | WOUNDNOTE ---
skin photo: left lower leg
--- NOTE | 2022-07-24 09:15 | WOUNDNOTE ---
Was asked to see patient for cellulitis of the LLE. there are two small scabbed areas noted near the left knee. patient has some erythema noted from the anterior ankle to just above the knee. there is no drainage to culture. very minimal edema noted. patient denies pain in the leg. no need for wound care at this time. will monitor the redness. does not appear to have extended past the skin markings. see skin photo.
--- NOTE | 2022-07-24 10:16 | PCM.RX.CS ---
Consult Pharmacy has been consulted to manage selected antiobiotic: Vancomycin Type of Consult: Follow-up Suspected Infection: Skin/Soft tissue Prior Doses of Antibiotics Received/Current Regimen: Received 1000mg iv x 1 on 07.23.22 @1634. Labs: Sodium 135 mmol/L (136-145) L 07/24/22 05:19 Potassium 3.9 mmol/L (3.5-5.1) 07/24/22 05:19 Chloride 107 mmol/L (98-107) 07/24/22 05:19 Carbon Dioxide 22.0 mmol/L (21.0-32.0) 07/24/22 05:19 Anion Gap 6 (5-15) 07/24/22 05:19 BUN 19 mg/dL (7-18) H 07/24/22 05:19 Creatinine 1.18 mg/dL (0.70-1.30) 07/24/22 05:19 Est GFR (MDRD) Af Amer 78 mL/min (>60) 07/24/22 05:19 Est GFR (MDRD) Non-Af 64 mL/min (>60) 07/24/22 05:19 BUN/Creatinine Ratio 16.1 RATIO (10-20) 07/24/22 05:19 Glucose 86 mg/dL (74-106) 07/24/22 05:19 Weight used for dosin kg Estimated Creatinine Clearance: 49 ml/min Goal Trough: 15-20 mcg/mL Pharmacy Plan for Drug Dosing: Renal function improved. Cr 1.18 today, yesterday 1.55. CrCl increased from 37 to 49ml/min. Will change dose to 500mg iv q12h. Trough level ordered for 23 @0330. Pharmacy Service will continue to monitor and adjust dosing as required. Follow-Up Labs: Trough Vancomycin - 6.9.23 @0330 before 0400 dose.
--- NOTE | 2022-07-24 12:15 | CASEMGMT ---
RN WILLIAMS Face to Face with patient for initial transition planning/care coordination assessment. RN CM introduced self and role at [facility]. Patient sitting in chair, alert and oriented. Patient willing to participate in assessment and is able to answer all questions appropriately. Care providers, pharmacy, and demographics verified. Patient wishes to discharge home, will monitor progress with therapy, was max assist x2 to stand pivot. Patient states he has no further needs or concerns at this time. CM to follow for discharge planning needs that may arise. PCP: Brayan Specialists: Juan R John, Neurologist Preferred Pharmacy: [facility] Insurance: [facility], MMO Prescription Benefit: yes Living Will/HPOA: yes, LNOK: Living Arrangements: Patient lives with and grandson in a single story home with 3 steps and railing to enter the home. Patient states he was independent at home but needing assistance from at times. Transportation: DME/HHC: Patient has shower chair, rasied toilet, cane, grab bars, walker, wheelchair at home. Patient has had [employer] in the past. Patient has been to [facility] in the past. Disposition Plan: TBD, anticipate HHC vs SNF pending progress with therapy. Zayra FINK, RN, CM
[2022-07-24] MEDS: CARBIDOPA/LEVODOPA 1 EACH CAPSULE.ER 4 EACH PO ×2 (12:56→17:50)
[2022-07-24 14:00] VITALS: BP 136/81; PULSE 98; RESP 18; TEMP 37.6; O2SAT 98
--- NOTE | 2022-07-24 14:25 | CASEMGMT ---
Sw presented to patient's room and introduced self and explained sw role. Sw asked patient if he has advanced directives in place at this time. Patient stated that he does have AD in place and has documents at his home. Sw encouraged patient to provide copy of documents if able to be scanned into his medical records. Patient expressed understanding. No other sw needs identified at this time. Steven Armstrong, DATA COMMUNICATIONS ANALYST, PAPER BAG MAKING MACHINIST
--- NOTE | 2022-07-24 15:37 | PN_ITS ---
Subjective Subjective Patient seen and examined. He had no complaints. He denied any fever, chills, cough, chest pain, palpitations or any other symptoms. He still had redness of LLE. Review of systems is otherwise negative. Objective Data Objective Data Vital Signs: Vital Signs Temp Pulse Resp BP Pulse Ox O2 Del Method 99.7 F H 98 18 136/81 H 98 Room Air 07/24/22 14:00 07/24/22 14:00 07/24/22 14:00 07/24/22 14:00 07/24/22 14:00 07/24/22 14:00 Oxygen Delivery Method Room Air Weight: 136 lb 10.986 oz Body Mass Index (BMI) 20.2 Intake & Output: Intake and Output for Last 24 Hours 07/22/22 07/23/22 07/24/22 23:59 23:59 23:59 Intake Total 2250 / 2250 2000 / 2000 Output Total 400 / 400 Balance 2250 / 2250 1600 / 1600 Lab / Micro Data Result Diagrams: 07/24/22 05:19 07/24/22 05:19 Labs: Laboratory Results - last 24 hr 07/23/22 15:05: Lactic Acid Cancelled 07/23/22 15:30: PT 16.9 H, INR 1.4, APTT 25.4 07/23/22 16:10: Lactic Acid 2.3 H* 07/23/22 21:20: Lactic Acid 2.3 H* 07/24/22 04:05: Urine Color Yellow, Urine Clarity Clear, Urine pH 5.0, Ur Specific [place] 1.020, Urine Protein 15 H, Urine Glucose (UA) Normal, Urine Ketones 5 H, Urine Occult Blood 50 H, Urine Nitrite Negative, Urine Bilirubin N egative, Urine Urobilinogen Normal, Ur Leukocyte Esterase Negative, Urine RBC 0- 5 SEEN, Urine WBC 0 SEEN, Ur Squamous Epith Cells 0 SEEN, Urine Bacteria 0 SEEN, Urine Mucus 0 SEEN 07/24/22 05:19: WBC 14.0 H, RBC 4.77, Hgb 14.6, Hct 45.9, MCV 96.2 H, MCH 30.6, MCHC 31.8 L, RDW Std Deviation 48.1 H, RDW Coeff of Lexii 13.5, Plt Count 189, MPV 11.2, Immature Gran % (Auto) 0.800, Neut % (Auto) 93.0 H, Lymph % (Auto) 4.0 L, [place] % (Auto) 1.9, Eos % (Auto) 0.0, Baso % (Auto) 0.3, Absolute Neuts (auto) 13.0 H, Absolute Lymphs (auto) 0.56 L, Nucleated RBC % 0, Differential Comment SCANNED 07/24/22 05:19: Sodium 135 L, Potassium 3.9, Chloride 107, Carbon Dioxide 22.0, Anion Gap 6, BUN 19 H, Creatinine 1.18, Estim Creat Clear Calc 48.89, Est GFR (MDRD) Af Amer 78, Est GFR (MDRD) Non-Af 64, BUN/Creatinine Ratio 16.1, Glucose 86, Calcium 8.2 L Radiography Diagnostic Testing: Radiology Impression Chest X-Ray 07/23/22 15:30 IMPRESSION: Stable elevation of the right hemidiaphragm. Lungs are clear. Electronically Signed: Tito Rodríguez MD at 15:47 EDT , Physical Exam Const alert, oriented x3 and no apparent distress General Appearance: cooperative HEENT normocephalic, head/scalp atraumatic, hearing grossly normal bilaterally and irma st oral mucous membranes Eyes PERRL, EOMs intact bilaterally and conjunctivae normal Neck no lymphadenopathy and supple Resp normal respiratory effort, no retractions, no use of accessory muscles and clear to auscultation bilaterally Cardio regular rate, regular rhythm, S1 normal heart sound, S2 normal heart sound and no murmurs GI normal to inspection, nondistended, normoactive bowel sounds, soft to palpation, non-tender and non-distended Extremity Extremity Narrative: Erythema of the left lower extremity which is extending up towards the knee. Skin Skin Narrative: erythema of the LLE from the ankle up towards the knee still persists. Has superficial excoriations over the knee. LLE still warm to touch. Neuro oriented x3, CN's II-XII intact bilaterally and moves all extremities Sensorium / Orientation: awake and alert Motor Exam: strength 5/5 throughout Psych affect normal Appearance: appropriate Assessment & Plan Assessment/Plan (1) Sepsis: (2) Cellulitis of left anterior lower leg: PLAN: Plan #Sepsis due to cellulitis of the LLE. * Still has mild fever, though tachycardia and tachypnea have resolved. * on IV vancomycin. * blood cultures pending * wbc is down from 26.7 to 14. Will continue monitoring. * #History of Alzheimer's disease: On levodopa carbidopa and rasagline #BPH: On tamsulosin DVT prophylaxis: Lovenox CODE STATUS: * full code Charges/Coding Visit Charges Inpatient E&M: 36502 Subs Hosp L2
[2022-07-24] MEDS: Vancomycin IV 500 MG/100 ML BAG 100 MG IV (16:27)
[2022-07-24 20:34] VITALS: BP 150/80; PULSE 88; RESP 18; TEMP 36.8; O2SAT 98
[2022-07-24] MEDS: terbinafine HCL 250 MG TABLET PO (20:35)
[2022-07-24] MEDS: CARBIDOPA/LEVODOPA 1 EACH CAPSULE.ER PO (20:36)
[2022-07-25] VITALS (7 sets, daily range): BP systolic 100–150; BP diastolic 65–88; PULSE 68–95; RESP 16–18; TEMP 36.3–37.4; O2SAT 92–99
[2022-07-25] MEDS: 0.9% Saline Lock 10 ML Syringe IV ×2 (04:09→06:15)
[2022-07-25] MEDS: Vancomycin IV 500 MG/100 ML BAG 100 MG IV ×2 (04:09→16:39)
[2022-07-25 06:12] LABS: Absolute Lymphocyte Count 0.74 X10^3/uL (0.83-4.51); Absolute Neutrophil Count 8.4 X10^3/uL (2.0-7.7); Basophil# 0.02 X10^3/uL; Basophil% 0.2 % (0-1); Hematocrit 39.7 % (40-54); Hemoglobin 13.1 g/dL (13.0-16.5); Lymphocyte # 0.74 X10^3/ul (0.83-4.51); Lymphocyte % 7.5 % (19-41); Mean Corpuscular Volume 93.9 fL (80-94); Mean Platelet Vol. 11.1 fl (6.2-12.0); Monocyte# 0.68 X10^3/uL; Monocyte% 6.9 % (0-10); NRBC Flagged by Analyzer 0 % (0-5); Neutrophil # 8.36 X10^3/uL (2.7-7.7); Platelet Count 175 K/mm3 (150-450); RBC Distribution Width CV 13.5 % (11.6-14.6); RBC Distribution Width SD 46.6 fl (35.1-43.9); Red Blood Count 4.23 M/mm3 (4.6-6.2); White Blood Count 9.8 K/mm3 (4.4-11.0)
[2022-07-25 06:57] LABS: Anion Gap 6 (5-15); BUN 18 mg/dL (7-18); BUN/Creat Ratio 17.1 RATIO (10-20); Calcium,Total 8.1 mg/dL (8.5-10.1); Chloride 105 mmol/L (98-107); Creatinine, Serum 1.05 mg/dL (0.70-1.30); EST Glomerular Filtration Rate 74 mL/min (>60); Est Glom Filt Rate - Afr Amer 89 mL/min (>60); Estimated Creatinine Clearance 54.95 ml/min; Glucose 101 mg/dL (74-106); Potassium 3.5 mmol/L (3.5-5.1); Sodium Level 134 mmol/L (136-145)
--- NOTE | 2022-07-25 08:43 | WOUNDNOTE ---
In to reassess the left lower leg redness. there is some slight improvement noted around the knee. the left calf and anterior ankle still reddened with some warmth noted. patient denies pain. minimal edema noted. no blistering or open wounds noted. will continue to monitor.
[2022-07-25] MEDS: CARBIDOPA/LEVODOPA 1 EACH CAPSULE.ER 3 EACH PO (09:29)
[2022-07-25] MEDS: Amantadine 100 MG Capsule PO (09:30)
[2022-07-25] MEDS: Enoxaparin 40 MG/0.4 ML Syringe SC (09:30)
--- NOTE | 2022-07-25 09:30 | CASEMGMT ---
Discharge Planning SNF and HH lists created and given to MICHELLE Del Angel
--- NOTE | 2022-07-25 10:46 | PN_ITS ---
Subjective Subjective Patient seen and examined. He had no active complaints and had an uneventful night. Review of systems is otherwise negative. He has remained hemodynamically stable. WBC has trended down significantly. Objective Data Objective Data Vital Signs: Vital Signs Temp Pulse Resp BP Pulse Ox O2 Del Method 98.9 F 83 16 146/82 H 98 Room Air 07/25/22 09:32 07/25/22 09:32 07/25/22 09:32 07/25/22 09:32 07/25/22 09:32 07/25/22 10:00 Oxygen Delivery Method Room Air Weight: 136 lb 10.986 oz Body Mass Index (BMI) 20.2 Intake & Output: Intake and Output for Last 24 Hours 07/23/22 07/24/22 07/25/22 23:59 23:59 23:59 Intake Total 2250 / 2250 2100 / 2100 320 / 320 Output Total 950 / 950 700 / 700 Balance 2250 / 2250 1150 / 1150 -380 / -380 Lab / Micro Data Result Diagrams: 07/25/22 04:54 07/25/22 04:54 Labs: Laboratory Results - last 24 hr 07/25/22 04:54: WBC 9.8, RBC 4.23 L, Hgb 13.1, Hct 39.7 L, MCV 93.9, MCH 31.0, MCHC 33.0, RDW Std Deviation 46.6 H, RDW Coeff of Lexii 13.5, Plt Count 175, MPV 11.1, Immature Gran % (Auto) 0.400, Neut % (Auto) 85.0 H, Lymph % (Auto) 7.5 L, [place] % (Auto) 6.9, Eos % (Auto) 0.0, Baso % (Auto) 0.2, Absolute Neuts (auto) 8.4 H, Absolute Lymphs (auto) 0.74 L, Nucleated RBC % 0 07/25/22 04:54: Sodium 134 L, Potassium 3.5, Chloride 105, Carbon Dioxide 23.0, Anion Gap 6, BUN 18, Creatinine 1.05, Estim Creat Clear Calc 54.95, Est GFR (MDRD) Af Amer 89, Est GFR (MDRD) Non-Af 74, BUN/Creatinine Ratio 17.1, Glucose 101, Calcium 8.1 L Micro: Microbiology 07/23/22 14:39 Blood Culture (Wb) - Left Forearm Blood Culture - Preliminary No growth in 48 hours. 07/23/22 15:05 Blood Culture (Wb) - Anticubital Right Blood Culture - Preliminary No growth in 48 hours. Physical Exam Const alert, oriented x3 and no apparent distress General Appearance: cooperative HEENT normocephalic, head/scalp atraumatic, hearing grossly normal bilaterally and moist oral mucous membranes Eyes PERRL, EOMs intact bilaterally and conjunctivae normal Neck no lymphadenopathy, supple and no JVD Resp normal respiratory effort, normal air movement, no retractions, no use of accessory muscles and clear to auscultation bilaterally Cardio regular rate, regular rhythm, S1 normal heart sound, S2 normal heart sound and no murmurs Cardio Narrative: Tachycardic GI normal to inspection, nondistended, normoactive bowel sounds, soft to palpation, non-tender and non-distended Extremity Extremity Narrative: Erythema of the left lower extremity which is extending up towards the knee has improved significantly Skin Skin Narrative: erythema of the LLE from the ankle up towards the knee has improved significantly. Has superficial excoriations over the knee. LLE still warm to touch. Neuro oriented x3, CN's II-XII intact bilaterally and moves all extremities Sensorium / Orientation: awake and alert Motor Exam: strength 5/5 throughout Psych affect normal Appearance: appropriate Assessment & Plan Assessment/Plan (1) Sepsis: (2) Cellulitis of left anterior lower leg: PLAN: Plan #Sepsis due to cellulitis of the LLE. * Fever and leucocytosis have resolved. White cell count is down to 9.8. * on IV vancomycin. * blood cultures are negative * * #History of Alzheimer's disease: On levodopa carbidopa and rasagline #BPH: On tamsulosin DVT prophylaxis: Lovenox CODE STATUS: * full code * DIsposition: for likely dc home on oral antibiotics tomorrow Charges/Coding Visit Charges Inpatient E&M: 49904 Subs Hosp L2
[2022-07-25] MEDS: CARBIDOPA/LEVODOPA 1 EACH CAPSULE.ER 4 EACH PO ×2 (12:40→17:52)
--- NOTE | 2022-07-25 14:56 | CASEMGMT ---
MICHELLE KRAMER NOTE: Therapy notes from today reviewed. Pt remains max A of 2 and SNF recommended. MICHELLE KRAMER to room to talk w/pt. Introduced self and role. Discussed w/pt how weak he is, how much assistance was needed when therapy worked w/him today, and therapy's recommendations. A list of SNF providers including quality and resource use data and consistent with the patient?s preferred geographic region, medical needs, and insurance network were provided from the [facility] Guide. Pt states he may be interested in [facility] but would like MICHELLE KRAMER to talk w/his first. Call placed to pt's while MICHELLE KRAMER @ bedside. Discussed pt's progress w/therapy today and discussion w/pt as stated above. Pt and both state pt uses a knee brace at home and does better when wearing his shoes, instead of socks. MICHELLE KRAMER asked if she could bring in pt's knee brace and shoes tomorrow so therapy can use these while working w/pt. states she will bring these in and will observe how pt does w/therapy tomorrow while wearing them. Both pt and interested in referral to [facility]. They were made aware, if pt improves well enough tomorrow and does better w/the brace and shoes, and if they change their minds and decide for pt to go home, then the referral could be cancelled. They voice understanding. Call placed to Nikia/PT. She was made aware bringing in brace and shoes and pt to use these when working w/therapy tomorrow. She was also made aware would like to observe pt working w/therapy again tomorrow. Ivan FINK RN, CM
--- NOTE | 2022-07-25 15:04 | CASEMGMT ---
Sw made referral to TCU admission coordinator as patient requested referral to TCU. Steven Armstrong, HIGH SCHOOL ENGLISH TEACHER, SENIOR ACCOUNTING SPECIALIST
[2022-07-25] MEDS: terbinafine HCL 250 MG TABLET PO (21:19)
[2022-07-25] MEDS: CARBIDOPA/LEVODOPA 1 EACH CAPSULE.ER PO (21:21)
[2022-07-25] MEDS: Acetaminophen 325 MG Tablet 650 MG PO (22:32)
[2022-07-26] MEDS: Vancomycin IV 500 MG/100 ML BAG 100 MG IV (03:20)
[2022-07-26 03:23] VITALS: BP 142/89; PULSE 70; RESP 15; TEMP 36.6; O2SAT 99
[2022-07-26 03:52] LABS: Absolute Lymphocyte Count 1.27 X10^3/uL (0.83-4.51); Absolute Neutrophil Count 6.4 X10^3/uL (2.0-7.7); Basophil# 0.04 X10^3/uL; Basophil% 0.5 % (0-1); Eosinophil# 0.02 X10^3/uL; Eosinophils% 0.2 % (0-5); Hematocrit 41.4 % (40-54); Hemoglobin 13.5 g/dL (13.0-16.5); Lymphocyte # 1.27 X10^3/ul (0.83-4.51); Lymphocyte % 14.6 % (19-41); Mean Corp Hgb Conc 32.6 g/dL (32-36); Mean Corpuscular Hgb 30.7 pg (27.0-32.0); Mean Corpuscular Volume 94.1 fL (80-94); Mean Platelet Vol. 10.4 fl (6.2-12.0); Monocyte# 0.91 X10^3/uL; Monocyte% 10.5 % (0-10); NRBC Flagged by Analyzer 0 % (0-5); Neutrophil % 73.6 % (47-70); Platelet Count 205 K/mm3 (150-450); RBC Distribution Width CV 12.9 % (11.6-14.6); RBC Distribution Width SD 44.6 fl (35.1-43.9); White Blood Count 8.7 K/mm3 (4.4-11.0)
[2022-07-26 04:13] LABS: Anion Gap 7 (5-15); BUN 20 mg/dL (7-18); BUN/Creat Ratio 16.5 RATIO (10-20); Calcium,Total 8.5 mg/dL (8.5-10.1); Chloride 101 mmol/L (98-107); Creatinine, Serum 1.21 mg/dL (0.70-1.30); EST Glomerular Filtration Rate 62 mL/min (>60); Est Glom Filt Rate - Afr Amer 76 mL/min (>60); Estimated Creatinine Clearance 47.68 ml/min; Glucose 86 mg/dL (74-106); Potassium 3.3 mmol/L (3.5-5.1); Sodium Level 135 mmol/L (136-145)
--- NOTE | 2022-07-26 04:53 | PCM.RX.CS ---
Consult Pharmacy has been consulted to manage selected antiobiotic: Vancomycin Type of Consult: Follow-up Suspected Infection: Skin/Soft tissue Prior Doses of Antibiotics Received/Current Regimen: Medications Vancomycin HCl (Vancomycin) 1,000 mg in 200 mls @ 200 mls/hr IV Q12H SANTO Vancomycin HCl () 500 mg in 100 mls @ 100 mls/hr IV Q12H SANTO Stop: 07/26/22 06:00 Last Admin: 07/26/22 04:32 Dose: 100 mls/hr Labs: Sodium 135 mmol/L (136-145) L 07/26/22 03:45 Potassium 3.3 mmol/L (3.5-5.1) L 07/26/22 03:45 Chloride 101 mmol/L (98-107) 07/26/22 03:45 Carbon Dioxide 27.0 mmol/L (21.0-32.0) 07/26/22 03:45 Anion Gap 7 (5-15) 07/26/22 03:45 BUN 20 mg/dL (7-18) H 07/26/22 03:45 Creatinine 1.21 mg/dL (0.70-1.30) 07/26/22 03:45 Est GFR (MDRD) Af Amer 76 mL/min (>60) 07/26/22 03:45 Est GFR (MDRD) Non-Af 62 mL/min (>60) 07/26/22 03:45 BUN/Creatinine Ratio 16.5 RATIO (10-20) 07/26/22 03:45 Glucose 86 mg/dL (74-106) 07/26/22 03:45 Vancomycin Trough 9.0 ug/mL (5.0-15.0) 07/26/22 03:45 Microbiology: Microbiology 07/23/22 14:39 Blood Culture (Wb) - Left Forearm Blood Culture - Preliminary No growth in 48 hours. 07/23/22 15:05 Blood Culture (Wb) - Anticubital Right Blood Culture - Preliminary No growth in 48 hours. Weight used for dosin kg Estimated Creatinine Clearance: 48 Goal Trough: 15-20 mcg/mL Pharmacy Plan for Drug Dosing: Vancomycin trough level was low at 9.0. Target range is 15-20. Per dosing calculator a new dose of 1000mg q12h will give an estimated trough of 17.3. Will initiate new dose and re-draw a trough prior to fourth dose. Pharmacy Service will continue to monitor and adjust dosing as required. Follow-Up Labs: Trough Vancomycin Labs to be done on [date and time ordered]: 07/28/22 @[id number]
[2022-07-26] MEDS: Nystatin Powder 15gm Bottle 1 APPLIC TOPICAL (05:17)
[2022-07-26 08:24] VITALS: BP 144/86; PULSE 75; RESP 14; TEMP 36.5; O2SAT 98
[2022-07-26] MEDS: Amantadine 100 MG Capsule PO (08:30)
[2022-07-26] MEDS: CARBIDOPA/LEVODOPA 1 EACH CAPSULE.ER 3 EACH PO (08:30)
[2022-07-26] MEDS: Potassium Chloride Oral Tablet 20 MEQ 40 MEQ PO (08:30)
[2022-07-26] MEDS: Enoxaparin 40 MG/0.4 ML Syringe SC (08:30)
--- NOTE | 2022-07-26 08:53 | CASEMGMT ---
MICHELLE KRAMER NOTE: Spoke w/, who states will be in around 9:30/9:45 this AM w/pt's brace and shoes. Call placed to therapy and they were notified. to observe pt working w/therapy this AM to see how pt is doing to make final decision on d/c plan. Ivan FINK RN CM
[2022-07-26] MEDS: CARBIDOPA/LEVODOPA 1 EACH CAPSULE.ER 4 EACH PO ×2 (12:18→18:07)
--- NOTE | 2022-07-26 13:38 | CASEMGMT ---
Addendum entered by Steven Armstrong 07/26/22 15:56: Patient accepted to [facility]. Patient medically ready for discharge. No precert required. 7000 completed and sent to [facility] along with discharge orders. Patient and family informed and agreed to above. Transport arranged with [facility] via wheelchair. Family and patient notified and informed of transport time. IRMA Alba, ERIN Addendum entered by Steven Armstrong 07/26/22 14:21: Patient unable to get accepted into rehab. Sw met with patient at bedside and informed him. Sw asked patient if he reviewed SNF list that was previously provided to him. Patient looked at list again and stated first choice is [facility] and second choice is [facility]. Sw called patient's and informed her of above, and that referral is being made to [facility]. expressed appreciation of update. IRMA Alba, ERIN Original Note: Sw followed up with patient after meeting with therapy. Patient receptive to going to TCU. Sw reached out to TCU coordinator who reports that patient's medications are too expensive and TCU cannot allow home meds. Sw to update pt and and see whether patient is able to go to rehab. IRMA Alba, ERIN
[2022-07-26] MEDS: Vancomycin IV 1,000 MG/200 ML BAG 200 MG IV (13:47)
[2022-07-26 14:22] VITALS: BP 125/32; PULSE 90; RESP 14; TEMP 36.4; O2SAT 97
--- NOTE | 2022-07-26 14:32 | CASEMGMT ---
Discharge Planning Referral was sent to [facility] via [facility]. Nisa Del Angel, Discharge Planning Asst.
--- NOTE | 2022-07-26 15:16 | DS.PCM_ITS ---
Providers Date of Admission: 07/23/22 Date of Discharge: 07/26/22 Primary Care Physician: Dr. Nico Schmidt MD Consultations 07/23/22 18:52 Consult: Onc/Wound/ophthalmic surgeon Routine Comment: Reason For Visit: SEPSIS DUE TO CELLULITIS Diagnosis Discharge Diagnosis (1) Sepsis: Status: Acute Code(s): A41.9 - Sepsis, unspecified organism (2) Cellulitis of left anterior lower leg: Status: Acute Code(s): L03.116 - Cellulitis of left lower limb Plan #Sepsis due to cellulitis of the LLE. * Fever and leucocytosis have resolved. White cell count is down to 9.8. * on IV vancomycin. * blood cultures are negative * * #History of Alzheimer's disease: On levodopa carbidopa and rasagline #BPH: On tamsulosin DVT prophylaxis: Lovenox CODE STATUS: * full code * DIsposition: for likely dc home on oral antibiotics tomorrow Medications at Discharge Home Medications amantadine HCl 100 mg capsule 100 mg PO DAILY PAIN 11/16/20 rasagiline 1 mg tablet 1 mg PO DAILY PARKINSONS 11/16/20 carbidopa ER 36.25 mg-levodopa 145 mg capsule,extended release (Rytary) 3 cap PO 0800 parkinsons 10/07/21 terbinafine HCl 250 mg tablet 250 mg PO QHS ANTIFUNGAL 10/07/21 Myrbetriq 07/23/22 carbidopa ER 36.25 mg-levodopa 145 mg capsule,extended release (Rytary) 1 cap PO QHS PARKINSONS 07/23/22 carbidopa ER 36.25 mg-levodopa 145 mg capsule,extended release (Rytary) 4 cap PO 1230 PARKISONS 07/23/22 carbidopa ER 36.25 mg-levodopa 145 mg capsule,extended release (Rytary) 4 cap PO 1730 PARKISONS 07/23/22 doxycycline hyclate 100 mg capsule 100 mg PO BID #14 caps 07/26/22 Hospital Course Operations None Procedures None Summary of Care Provided Minutes Spent on Discharge: 50 Hospital Course: KATHARINE WATTS, is a 71 M with a PMH as outlined including recurrent cellulitis who presents via the ED on 07/23/2022 with a complaint of left lower extremity redness. He usually becomes septic due to cellulitis. It started as a patch on his LLE which gradually progressed and worsened, extending up his left lower extremity up to his knee, so he came in to the ED. he had associated fever and chills but had no other symptoms.? He denied any nausea, vomiting, abdominal pain or any trauma to his lower extremities or any insect bites.? His had noticed an excoriation on his left knee the day before and said she bandaged it but did not think much of it.? He has had recurrent cellulitis in the past and has been admitted multiple times to treat this.? Review of systems was otherwise negative. Vitals in the ED were blood pressure 142/83, pulse rate of 101, respiratory rate of 32 and temperature of 99.9 Fahrenheit.? He was saturating at 96% on room air.? CBC showed hemoglobin of 17.7 with WBC of 26.7 and platelets of 277.? INR was 1.4.? Creatinine was 1.55 and lactic acid was 2.3 but BMP was otherwise unremarkable.? Chest x-ray showed stable elevation of the right hemidiaphragm.? He was admitted to be managed for sepsis due to left lower extremity cellulitis. He was started on IV vancomycin. His white cell count trended down and subsequently normalized. The redness of his left lower extremity also gradually improved now significantly better at time of review. Differential warmth also improved. Patient was discharged to snf facility after he worked with physical therapy and was deemed as needing further assistance. He was discharged to snf facility on 07/26/2022. He was discharged on a 7- day course of p.o. doxycycline as he is allergic to penicillin. He is follow-up with his primary care doctor within 1 to 2 weeks. Patient seen and examined prior to discharge. He had no complaints and had an uneventful night. Review of systems otherwise negative. Labs and vitals reviewed. Home medication reviewed and reconciled. Physical Exam Const alert, oriented x3 and no apparent distress General Appearance: cooperative, comfortable and well kempt HEENT normocephalic, head/scalp atraumatic, hearing grossly normal bilaterally and moist oral mucous membranes Mouth: oral and palatal mucosa normal Eyes PERRL, EOMs intact bilaterally and conjunctivae normal Neck no lymphadenopathy, supple and no JVD Resp normal respiratory effort, normal air movement, no retractions, no use of accessory muscles and clear to auscultation bilaterally Cardio regular rate, regular rhythm, S1 normal heart sound, S2 normal heart sound and no murmurs GI normal to inspection, nondistended, normoactive bowel sounds, soft to palpation, non-tender and non-distended Extremity Extremity Narrative: Erythema of the left lower extremity which is extending up towards the knee has improved markedly. Skin Skin Narrative: erythema of the LLE from the ankle up towards the knee has improved significantly. Has superficial excoriations over the knee. Neuro oriented x3, CN's II-XII intact bilaterally and moves all extremities Sensorium / Orientation: awake and alert Motor Exam: strength 5/5 throughout Psych affect normal Appearance: appropriate Weight / BMI Weight Weight: 136 lb 10.986 oz Body Mass Index (BMI) 20.2 ABG / Lab / Microbiology Data Result Diagrams: 07/26/22 03:45 07/26/22 03:45 Laboratory: Laboratory Results - last 24 hr 07/26/22 03:45: WBC 8.7, RBC 4.40 L, Hgb 13.5, Hct 41.4, MCV 94.1 H, MCH 30.7, MCHC 32.6, RDW Std Deviation 44.6 H, RDW Coeff of Lexii 12.9, Plt Count 205, MPV 10.4, Immature Gran % (Auto) 0.600, Neut % (Auto) 73.6 H, Lymph % (Auto) 14.6 L, [place] % (Auto) 10.5 H, Eos % (Auto) 0.2, Baso % (Auto) 0.5, Absolute Neuts (auto) 6.4, Absolute Lymphs (auto) 1.27, Nucleated RBC % 0 07/26/22 03:45: Sodium 135 L, Potassium 3.3 L, Chloride 101, Carbon Dioxide 27.0, Anion Gap 7, BUN 20 H, Creatinine 1.21, Estim Creat Clear Calc 47.68, Est GFR (MDRD) Af Amer 76, Est GFR (MDRD) Non-Af 62, BUN/Creatinine Ratio 16.5, Glucose 86, Calcium 8.5 07/26/22 03:45: Vancomycin Trough 9.0 Microbiology: Microbiology 07/24/22 04:05 Urine, Catheterized Urine Culture - Final Culture exhibits no growth. 07/23/22 14:39 Blood Culture (Wb) - Left Forearm Blood Culture - Preliminary No growth in 48 hours. 07/23/22 15:05 Blood Culture (Wb) - Anticubital Right Blood Culture - Preliminary No growth in 48 hours. D/C Instructions Discharge Diet: Low fat / Low cholesterol Discharge Activity: Return to Normal Activity Weight Bearing Status: Weight bearing as tolerated Call your doctor if you observe: Fever of 101 or Higher, Shortness of breath, Dizziness, Swelling in the ankles, Chest pain and Increased palpitations (irregular heartbeat) Meaningful Use Info Meaningful Use Diagnoses (Choose all that apply): None applicable Discharge Plan Admission Admit Date/Time: 07/23/22 18:01 Primary Reason for Your Visit: sepsis due to cellulitis Attending Provider: Roberta Garza Primary Care Provider: Nico Schmidt Instructions Patient Instructions: Cellulitis Discharge Orders/Prescriptions Prescriptions: New doxycycline hyclate 100 mg capsule 100 mg PO BID Qty: 14 0RF Continued amantadine HCl 100 mg capsule 100 mg PO DAILY Label Comments: rasagiline 1 mg tablet 1 mg PO DAILY Label Comments: terbinafine HCl 250 mg tablet 250 mg PO QHS Rytary 36.25-145 mg capsule, extended release 3 cap PO 0800 Rytary 36.25-145 mg capsule, extended release 4 cap PO 1230 Rytary 36.25-145 mg capsule, extended release 4 cap PO 1730 Rytary 36.25-145 mg capsule, extended release 1 cap PO QHS Myrbetriq Referrals / Follow Up: Nico Schmidt MD [Primary Care Provider] - Within 2 Weeks Nico Schmidt [[facility]] - Disposition Disposition (needs filled in before D/C Order can be placed): [facility] Charges/Coding Visit Charges Inpatient E&M: 86753 Disch Hosp >30min
[2022-07-26 15:21] VITALS: BP 125/52; PULSE 90; RESP 14; TEMP 36.4; O2SAT 97
--- NOTE | 2022-07-26 15:22 | TREXTCAR_ITS ---
Diet Diet Order/Speech Therapy: 07/24/22 10:10 Diet: Regular - General Food consistency:: Regular Liquid Consistency:: Regular/Thin Is pt able to select menu?: Yes Diet Comments: No ground beef, Direct sup & assist at meals, check for pocketing Routine Orders/Code Status Enema Type: Fleetz Enema Frequency: Daily PRN Suppository Type: Dulcolax 10mg Suppository Frequency: Daily PRN O2 Frequency: PRN Keep PO Greater than or Equal to (%): 90 Therapies Weight Bearing: Weight bearing as tolerated Physical Therapy: Eval and Treat Occupational Therapy: Eval and Treat Problem/Diagnosis (1) Sepsis: Status: Acute Code(s): A41.9 - Sepsis, unspecified organism (2) Cellulitis of left anterior lower leg: Status: Acute Code(s): L03.116 - Cellulitis of left lower limb Plan #Sepsis due to cellulitis of the LLE. * Fever and leucocytosis have resolved. White cell count is down to 9.8. * on IV vancomycin. * blood cultures are negative * * #History of Alzheimer's disease: On levodopa carbidopa and rasagline #BPH: On tamsulosin DVT prophylaxis: Lovenox CODE STATUS: * full code * DIsposition: for likely dc home on oral antibiotics tomorrow Allergies/Procedures Done in Hospital Allergies Penicillins [PCN] Allergy (Verified 07/23/22 17:22) Unknown It happened when I was a kid, I have no idea Procedures: None Type of Care/Length of Stay Estimated LOS: Convalescent Care Less Than 30 days Type of Care Needed: Skilled Rehab Potential: Fair Prognosis: Fair Additional Orders/Day of Discharge Day of Discharge: 07/26/22 Dietary and Speech Recommendations Dietitian Recommendations/Changes: regular diet- texture/consistency modifications per COMPRESSOR OPERATOR PORTABLE; will monitor PO intake and provide ONS as indicated at time of follow-up. Discharge Plan Admission Admit Date/Time: 07/23/22 18:01 Primary Reason for Your Visit: sepsis due to cellulitis Attending Provider: Roberta Garza Primary Care Provider: Nico Schmidt Instructions Patient Instructions: Cellulitis Discharge Orders/Prescriptions Prescriptions: New doxycycline hyclate 100 mg capsule 100 mg PO BID Qty: 14 0RF Continued amantadine HCl 100 mg capsule 100 mg PO DAILY Label Comments: rasagiline 1 mg tablet 1 mg PO DAILY Label Comments: terbinafine HCl 250 mg tablet 250 mg PO QHS Rytary 36.25-145 mg capsule, extended release 3 cap PO 0800 Rytary 36.25-145 mg capsule, extended release 4 cap PO 1230 Rytary 36.25-145 mg capsule, extended release 4 cap PO 1730 Rytary 36.25-145 mg capsule, extended release 1 cap PO QHS Myrbetriq Referrals / Follow Up: Nico Schmidt MD [Primary Care Provider] - Within 2 Weeks Nico Schmidt [[facility]] - Disposition Disposition (needs filled in before D/C Order can be placed): Snf Facility
--- NOTE | 2022-07-26 16:16 | CASEMGMT ---
Discharge Planning Discharge orders, covid results, and transport time sent to [facility] via [facility]. Patient will be picked up at 7p by [facility]. SW, nursing, and patients notified. Nisa Del Angel, Discharge Planning Asst.
--- NOTE | 2022-07-26 16:54 | NURSING ---
Report given to [facility] @ [id number] al questions answered, DC instructions reviewed.
[2022-07-26 20:20] VITALS: BP 129/81; PULSE 88; RESP 18; TEMP 37.1; O2SAT 99
[2022-07-26] MEDS: terbinafine HCL 250 MG TABLET PO (21:10)
[2022-07-26 21:44] VITALS: BP 112/70; PULSE 70; RESP 18; TEMP 37.1; O2SAT 100
== END 2022-07-26 22:45 | disposition skilled nursing facility (03) | DRG 872 ==
LOC: ED 18:03 → PCU 18:14
PROVIDERS: Hospitalist; Admitting Provider Student in an Organized Health Care Education/Training Program; Emergency Provider Emergency Medicine; PCP Family Medicine; Visit Provider Student in an Organized Health Care Education/Training Program
DX: A41.9 Sepsis, unspecified organism (principal); L03.116 Cellulitis of left lower limb; G20 Parkinson's disease; I10 Essential (primary) hypertension; N40.0 Benign prostatic hyperplasia without lower urinary tract symptoms; Z79.899 Other long term (current) drug therapy
CPT/HCPCS: 36415; 71045; 80048; 80053; 80202; 81001; 83605; 85025; 85610; 85730; 87040; 87086; 87426; 92526; 92610; 93005; 97162; 97166; 97530; 97535; 97802; 99285; J7030; J7050; A4216

== ENCOUNTER 2022-12-25 13:35 | Emergency (ER) | payer MEDICARE, OTHER, SELFPAY ==
[2022-12-25 13:40] VITALS: BP 169/96; PULSE 83; RESP 17; TEMP 36.8; O2SAT 100; BMI 19.3
--- NOTE | 2022-12-25 14:24 | EX.ED.DYSGE1 ---
HPI History of Present Illness Chief Complaint: General Illness Informant: patient Onset/Context/Timing Onset: Weeks (1) Context: Gradual Onset Timing: Continuous Quality: Rigidity Location: Generalized but worse in the lower extremities Worsened by: Nothing Relieved by: Nothing Narrative Narrative: Rina with weakness and muscle rigidity has been getting worse over the last week. Patient with history of Parkinson's disease. Patient has been having some difficulty swallowing and has not been eating as much lately. states that patient's legs have had more rigidity over the last couple days. states the patient has had a fever today. Patient denies any cough or shortness of breath. Patient denies any nausea or vomiting. [facility] Medical History BPH (benign prostatic hyperplasia) Cellulitis Closed traumatic nondisplaced fracture of four ribs of right side Difficulty balancing when standing DMII (diabetes mellitus, type 2) History of Parkinson's disease HLD (hyperlipidemia) HTN (hypertension) Parkinson disease Parkinson's disease Home Medications amantadine HCl 100 mg capsule 100 mg PO DAILY PAIN 11/16/20 [History Last Taken 07/23/22] rasagiline 1 mg tablet 1 mg PO DAILY PARKINSONS 11/16/20 [History Last Taken 07/23/22] carbidopa ER 36.25 mg-levodopa 145 mg capsule,extended release (Rytary) 3 cap PO 0800 parkinsons 10/07/21 [History Last Taken 07/23/22] terbinafine HCl 250 mg tablet 250 mg PO QHS ANTIFUNGAL 10/07/21 [History Last Taken 07/22/22] Myrbetriq 07/23/22 [History Last Taken Unknown] carbidopa ER 36.25 mg-levodopa 145 mg capsule,extended release (Rytary) 1 cap PO QHS PARKINSONS 07/23/22 [History Last Taken 07/22/22] carbidopa ER 36.25 mg-levodopa 145 mg capsule,extended release (Rytary) 4 cap PO 1230 PARKISONS 07/23/22 [History Last Taken 07/23/22] carbidopa ER 36.25 mg-levodopa 145 mg capsule,extended release (Rytary) 4 cap PO 1730 PARKISONS 07/23/22 [History Last Taken 07/22/22] doxycycline hyclate 100 mg capsule 100 mg PO BID #14 caps 07/26/22 [Rx Last Taken Unknown] Allergy/AdvReac Type Severity Reaction Status Date / Time Penicillins [PCN] Allergy Unknown Verified 12/25/22 13:42 Family History Father No problems noted. Mother No problems noted. Other Parkinsons disease Surgical History no surgical history no surgical history Social History Smoking Status: Never smoker alcohol intake: never ROS ROS ED Constitutional Constitutional ED: Reports fever(s); Denies chills ENT ENT ED: Denies rhinorrhea or sore throat Cardiovascular Cardiovascular: Denies chest pain Respiratory/Chest Respiratory/Chest: Denies cough or dyspnea Gastrointestinal Gastrointestinal: Denies nausea or vomiting Integumentary Denies abscess or rash Neurologic Neurologic: Reports weakness Allergic/Immunologic Allergic/Immunologic ED: Denies mouth swelling or urticaria EXAM Physical Exam Const Vital Signs: 12/25/22 13:40 12/25/22 13:43 Temperature 98.2 F Temperature Source Oral Pulse Rate 83 Respiratory Rate 17 Respiratory Effort Normal Non-Labored Respiratory Pattern Normal Blood Pressure 169/96 H Blood Pressure Mean 120 Pulse Ox 100 Oxygen Delivery Method Room Air Positive cachectic General Appearance ED: cachectic and NAD Nutritional Appearance: cachectic HEENT Reports dry mucous membranes Mouth ED: Yes dry mucous membranes Mouth: dry mucous membranes Eyes PERRL and EOMs intact bilaterally Neck supple and no JVD Resp normal respiratory effort and clear to auscultation bilaterally Cardio regular rate and regular rhythm GI non-tender and non-distended Palpation: soft Extremity normal to inspection General Extremety ED: Negative for edema or tenderness General Extremity: Negative for edema Neuro oriented x3, CN's II-XII intact bilaterally and no sensory deficits noted Sensorium / Orientation: alert Motor Exam: general weakness Psych mental status grossly normal MDM MDM MDM Narrative Medical decision making narrative: Differential diagnosis includes pneumonia, urinary tract infection, electrolyte abnormality, sepsis, medication side effect, dysrhythmia, cardiac ischemia, and exacerbation of Parkinson's disease. EKG will be obtained to assess for cardiac dysrhythmia. Chest x-ray will be obtained to assess for pneumonia. CBC will be obtained to assess for leukocytosis and anemia. Basic metabolic profile will be obtained to assess for electrolyte abnormality and renal function. Urinalysis will be obtained to assess for urinary tract infection. Urine culture will be obtained to assess for urinary tract infection. Serum lactate will be obtained to assess for sepsis. She was INR and PTT will be obtained to assess for coagulopathy. High-sensitivity troponin will be obtained to assess for cardiac ischemia. Lab Data Attestation: I reviewed the patient's lab results. Lab results narrative: CT was reviewed. There is a mild leukocytosis of 11.4. The remainder is essentially within normal limits. PT with INR and PTT were reviewed and were within normal limits. Basic metabolic profile was reviewed. BUN was slightly elevated at 22 and creatinine was 1.37. These are slightly increased from previous results. Serum lactate was reviewed and was normal at 1.4. High-sensitivity troponin was reviewed and was normal at 20. Urinalysis was reviewed. There is no evidence of urinary tract infection or hematuria. Labs: Laboratory Results - last 24 hr 12/25/22 12/25/22 14:45 15:00 WBC 11.4 H RBC 5.16 Hgb 15.3 Hct 47.2 MCV 91.5 MCH 29.7 MCHC 32.4 RDW Std Deviation 43.6 RDW Coeff of Lexii 13.0 Plt Count 339 MPV 11.0 Immature Gran % (Auto) 0.500 Neut % (Auto) 81.7 H Lymph % (Auto) 8.9 L [place] % (Auto) 8.4 Eos % (Auto) 0.2 Baso % (Auto) 0.3 Absolute Neuts (auto) 9.3 H Absolute Lymphs (auto) 1.02 Nucleated RBC % 0 PT 14.8 INR 1.2 APTT 27.5 Sodium 133 L Potassium 4.0 Chloride 100 Carbon Dioxide 30.0 Anion Gap 3 L BUN 22 H Creatinine 1.37 H Estim Creat Clear Calc 37.40 Est GFR (MDRD) Af Amer 65 Est GFR (MDRD) Non-Af 54 L BUN/Creatinine Ratio 16.1 Glucose 97 Lactic Acid 1.4 Calcium 8.7 Troponin I High Sens 20 Urine Color Yellow Urine Clarity Clear Urine pH 6.0 Ur Specific [place] 1.020 Urine Protein 30 H Urine Glucose (UA) Normal Urine Ketones 15 H Urine Occult Blood 10 H Urine Nitrite Negative Urine Bilirubin Negative Urine Urobilinogen 1 H Ur Leukocyte Esterase 25 H Urine RBC 0 SEEN Urine WBC 0 SEEN Ur Squamous Epith Cells 0 SEEN Urine Bacteria 0 SEEN Urine Mucus 0 SEEN Radiography Diagnostic Testing: Clinical Impression(s) from Imaging Studies Chest X-Ray 12/25/22 15:05 IMPRESSION: Stable elevation of the right hemidiaphragm. No acute abnormality is seen. Electronically Signed: Tito Rodríguez MD at 15:22 EST , Portable 1 view chest x-ray was obtained. On my independent interpretation, lung blandon are clear. There is normal cardiac silhouette. Bony thorax is normal. There is no acute process noted. Radiologist also interpreted the x-ray and agrees. EKG Initial EKG: Attestation: I personally reviewed and interpreted this EKG as follows: Interpretation: Sinus Rhythm (90) and Non-Specific ST Changes Comments: EKG was obtained. On my independent interpretation, it showed a normal sinus rhythm with a rate of 90. [place] interval, QRS interval, and QTc intervals were all normal. [place] was normal. There are no specific ST-T wave changes. Prior EKG tracings: available for review Prior: Unchanged (07/23/2022) Treatment and Re-Evaluation :: Patient was given IV fluids. Patient was still feeling weak on exam. Patient is unable to ambulate. I will discuss case with the hospitalist for possible admission for rehydration and possible mcc placement for physical therapy. Case was discussed with the hospitalist. He felt the patient should be transferred to a facility where he could be seen by a neurologist. His neurologist goes to [facility]. Case was discussed with the hospitalist there. Patient was accepted be transferred by Dr. Garcia. Patient understood and was agreeable with the plan. All questions were answered. Discharge Plan Triage Chief Complaint: General Illness ED Provider: Phani Peralta Dx/Rx/DC Orders Clinical Impression: General weakness, Parkinson's disease, Dehydration Prescriptions: No Action amantadine HCl 100 mg capsule 100 mg PO DAILY Patient Comments: rasagiline 1 mg tablet 1 mg PO DAILY Patient Comments: terbinafine HCl 250 mg tablet 250 mg PO QHS Rytary 36.25-145 mg capsule, extended release 3 cap PO 0800 Rytary 36.25-145 mg capsule, extended release 4 cap PO 1230 Rytary 36.25-145 mg capsule, extended release 4 cap PO 1730 Rytary 36.25-145 mg capsule, extended release 1 cap PO QHS Myrbetriq doxycycline hyclate 100 mg capsule 100 mg PO BID Qty: 14 0RF Primary Care Provider: Nico Schmidt Referrals: Nico Schmidt MD [Primary Care Provider] - Disposition Disposition: Acute Care Hospital Discharge Location: [facility]
--- NOTE | 2022-12-25 14:38 | EKG12_ITS ---
Test Reason : Blood Pressure : / mmHG Vent. Rate : 090 BPM Atrial Rate : 090 BPM P-R Int : 124 ms QRS Dur : 088 ms QT Int : 408 ms P-R-T Axes : 000 007 080 degrees QTc Int : 499 ms Normal sinus rhythm Nonspecific ST and T wave abnormality Abnormal ECG Confirmed by KIRK GALEAS, NATHANIEL ([id number]), industrial editor RACHEL HEART ([id number]) on 12/30/2022 10:38:38 AM Referred By: Confirmed By:SANDER BRADLEY MD
[2022-12-25] MEDS: 0.9% Normal Saline (1000mL) 1,000 ML 1000 ML IV (14:54)
[2022-12-25 15:03] LABS: Absolute Lymphocyte Count 1.02 X10^3/uL (0.83-4.51); Absolute Neutrophil Count 9.3 X10^3/uL (2.0-7.7); Basophil# 0.04 X10^3/uL; Basophil% 0.3 % (0-1); Eosinophil# 0.02 X10^3/uL; Eosinophils% 0.2 % (0-5); Hematocrit 47.2 % (40-54); Hemoglobin 15.3 g/dL (13.0-16.5); Lymphocyte # 1.02 X10^3/ul (0.83-4.51); Lymphocyte % 8.9 % (19-41); Mean Corp Hgb Conc 32.4 g/dL (32-36); Mean Corpuscular Hgb 29.7 pg (27.0-32.0); Mean Corpuscular Volume 91.5 fL (80-94); Monocyte# 0.96 X10^3/uL; Monocyte% 8.4 % (0-10); NRBC Flagged by Analyzer 0 % (0-5); Neutrophil # 9.34 X10^3/uL (2.7-7.7); Neutrophil % 81.7 % (47-70); Platelet Count 339 K/mm3 (150-450); RBC Distribution Width SD 43.6 fl (35.1-43.9); Red Blood Count 5.16 M/mm3 (4.6-6.2); White Blood Count 11.4 K/mm3 (4.4-11.0)
--- NOTE | 2022-12-25 15:05 | RAD_ITS ---
STUDY: X-RAY CHEST REASON FOR EXAM: Male, 72 years old. Weakness TECHNIQUE: Single AP portable view of the chest. COMPARISON: Comparison is made with prior study dated July 23, 2022. FINDINGS: EKG electrodes are seen. There is elevation of the right hemidiaphragm. There is no demonstrated pleural abnormality. Normal size heart. Normal mediastinum and pepito. Normal visualized pulmonary arteries. There is atherosclerotic tortuosity of the aortic arch and descending thoracic aorta. Normal visualized thoracic spine. Normal visualized ribs, clavicles, and shoulders. There is no demonstrated abnormality of the visualized soft tissue structures of the upper abdomen. RAD/Chest 1 View (Portable) IMPRESSION: Stable elevation of the right hemidiaphragm. No acute abnormality is seen. Electronically Signed: Tito Rodríguez MD at 15:22 EST ,
[2022-12-25 15:06] LABS: Bacteria 0 SEEN /hpf (None Seen); Mucous, Urine 0 SEEN /hpf (<or=2+); Red Blood Cells-Urine 0 SEEN /hpf (0-5); Squamous Epithelial Cells - UA 0 SEEN /hpf (0-5); White Blood Cells 0 SEEN /hpf (0-5)
[2022-12-25 15:08] LABS: Color, Urine Yellow (Yellow); Glucose, Dipstick Normal (Normal); Ketone-Dipstick 15 mg/dl (Negative); Leukocyte Esterase-Dipstick 25 /ul (Negative); Nitrite-Dipstick Negative (Negative); Occult Blood-Urine 10 /ul (Negative); Protein-Dipstick 30 mg/dl (Negative); Urine Bilirubin Dipstick Negative (Negative); Urine Clarity Clear (Clear); Urine Urobilinogen 1 mg/dl (Normal)
[2022-12-25 15:13] LABS: Anion Gap 3 (5-15); BUN 22 mg/dL (7-18); BUN/Creat Ratio 16.1 RATIO (10-20); Calcium,Total 8.7 mg/dL (8.5-10.1); Chloride 100 mmol/L (98-107); Creatinine, Serum 1.37 mg/dL (0.70-1.30); EST Glomerular Filtration Rate 54 mL/min (>60); Est Glom Filt Rate - Afr Amer 65 mL/min (>60); Glucose 97 mg/dL (74-106); Sodium Level 133 mmol/L (136-145); Troponin-I HS 20 pg/mL (3.0-78.0)
[2022-12-25 15:25] LABS: Lactic Acid 1.4 mmol/L (0.4-1.9)
[2022-12-25 15:50] LABS: International Normalized Ratio 1.2; Prothrombin Time (Protime)PT. 14.8 SECONDS (11.7-14.9)
[2022-12-25 15:51] LABS: Partial Thromboplast Time 27.5 Seconds (24.1-36.2)
[2022-12-25 19:35] VITALS: BP 147/91; PULSE 81; RESP 14; O2SAT 99
== END 2022-12-25 20:39 | disposition short-term general hospital (02) ==
PROVIDERS: Emergency Provider Emergency Medicine; PCP Family Medicine; Visit Provider Emergency Medicine
DX: R53.1 Weakness (principal); E11.9 Type 2 diabetes mellitus without complications; G20.C Parkinsonism, unspecified; E86.0 Dehydration
CPT/HCPCS: 71045; 80048; 81001; 83605; 84484; 85025; 85610; 85730; 87086; 93005; 96360; 99285; J7030; P9612; A4216

== ENCOUNTER 2023-01-14 22:10 | Inpatient (IN) | payer MEDICARE, OTHER, SELFPAY ==
[2023-01-14 22:21] VITALS: BP 140/80; PULSE 75; RESP 18; TEMP 36.6; O2SAT 99; BMI 17.6
[2023-01-14] MEDS: Carbidopa/Levodopa 25/100 Tablet PO (23:56)
[2023-01-14] MEDS: Nystatin Powder 15gm Bottle 1 APPLIC TOPICAL (23:56)
[2023-01-15] VITALS (7 sets, daily range): BP systolic 128; BP diastolic 72–74; PULSE 71–85; RESP 14–18; TEMP 37–37.5; O2SAT 99–100
[2023-01-15] MEDS: Menthol/Lanolin/Calamine/Znox 113 GM Tube 1 APPLIC TOPICAL ×3 (05:36→22:12)
[2023-01-15] MEDS: Pantoprazole Sodium 40 MG Tablet PO ×2 (05:38→16:18)
[2023-01-15 06:04] LABS: Bedside Glucose 104 mg/dL (74-106)
[2023-01-15 07:28] LABS: ALB/GLOB Ratio 0.7 RATIO (0.9-2.4); AST(SGOT) 10 U/L (15-37); Albumin, Serum 2.4 g/dL (3.2-5.0); Alkaline Phosphatase 77 U/L (45-117); BUN 24 mg/dL (7-18); BUN/Creat Ratio 24.7 RATIO (10-20); Calcium,Total 8.4 mg/dL (8.5-10.1); Creatinine, Serum 0.97 mg/dL (0.70-1.30); EST Glomerular Filtration Rate 80 mL/min (>60); Est Glom Filt Rate - Afr Amer 97 mL/min (>60); Globulin 3.6 g/dL (2.2-4.2); Glucose 99 mg/dL (74-106); Phosphorus 2.4 mg/dL (2.5-4.9)
[2023-01-15 07:29] LABS: Alanine Aminotransfer ALT/SGPT < 6 U/L (16-61); Anion Gap -1 (5-15); Chloride 102 mmol/L (98-107); Magnesium 3.2 mg/dL (1.6-2.6); Potassium 4.2 mmol/L (3.5-5.1); Sodium Level 136 mmol/L (136-145)
[2023-01-15] MEDS: Amantadine 100 MG Capsule PO (08:14)
[2023-01-15] MEDS: hydrALAZINE 10 MG Tablet PO (08:15)
[2023-01-15] MEDS: Carbidopa/Levodopa 25/100 Tablet PO ×4 (08:15→22:13)
[2023-01-15] MEDS: Senna/Docusate Sodium 1 Tablet PO ×2 (08:15→22:13)
[2023-01-15] MEDS: Tolterodine Tartrate 4 MG CAP.SA PO (08:15)
[2023-01-15] MEDS: Polyethylene Glycol 3350 17 GM PACKET PO (08:16)
[2023-01-15] MEDS: Nystatin Powder 15gm Bottle 1 APPLIC TOPICAL ×2 (08:17→22:13)
[2023-01-15] MEDS: Jevity 1.5. 1,000 ML Bottle 300 ML GT ×4 (08:18→22:18)
[2023-01-15 09:04] LABS: Hematocrit 36.4 % (40-54); Hemoglobin 11.5 g/dL (13.0-16.5); Mean Corp Hgb Conc 31.6 g/dL (32-36); Mean Corpuscular Hgb 29.8 pg (27.0-32.0); Mean Corpuscular Volume 94.3 fL (80-94); Mean Platelet Vol. 10.9 fl (6.2-12.0); Platelet Count 379 K/mm3 (150-450); RBC Distribution Width CV 15.3 % (11.6-14.6); Red Blood Count 3.86 M/mm3 (4.6-6.2); White Blood Count 10.3 K/mm3 (4.4-11.0)
--- NOTE | 2023-01-15 09:11 | EX.PCM.HP.RE ---
HPI - General General Date of Admission: 01/14/23 Date of Service: 01/15/23 Chief Complaint: Dysphagia, Esophagitis, Parkinson's disease - Generalized weakness HPI Narrative KATHARINE WATTS, is a 72 M with extensive PMH of Parkinson's disease, DM2, HTN, BPH, MYRIAM and overactive bladder who presented to the ED at [facility] on 12/25 with complaints of weakness and dysphagia which had been progressively worsening over the prior week. In the ED, imaging and labs were obtained which showed a slightly elevated creatinine level and WBC. He was given IVF, however, due to his weakness, it was felt he would benefit from admission. He was transferred to [facility] for further management. During his admission, his Parkinson medications were adjusted. He underwent an EGD for his dysphagia which showed esophagitis and gastritis and was started on PPI therapy. He continued to have problems with dysphagia and, on 01/01, underwent a PEG tube placement and was later started on tube feeds. His admission was complicated further by a rash from adhesives, requiring steroid therapy, muscle spasms as well as constipation. The patient clinically improved. Therapy saw the patient who felt he would benefit from rehab. Once stable, he was transferred to [facility] inpatient rehab for 3 hours of daily rehab and strengthening with a goal to return home with his . The patient reports that he is feeling tired. He doesn't feel his occupational therapy went well this morning. He denies any pain or concerns at this time. [facility] Medical History BPH (benign prostatic hyperplasia) Cellulitis Cellulitis Closed dislocation finger, proximal interphalangeal joint, traumatic Closed traumatic nondisplaced fracture of four ribs of right side Difficulty balancing when standing DMII (diabetes mellitus, type 2) History of Parkinson's disease HLD (hyperlipidemia) HTN (hypertension) Parkinson disease Parkinson's disease Home Medications amantadine HCl 100 mg capsule 100 mg PO DAILY PD 11/16/20 [History Last Taken 07/23/22] rasagiline 1 mg tablet 1 mg PO DAILY PARKINSONS 11/16/20 [History Last Taken 07/23/22] Myrbetriq 50 mg PO DAILY@1400 OAB 07/23/22 [History Last Taken Unknown] acetaminophen 325 mg tablet 650 mg PO Q4H PRN pain 01/14/23 [History Last Taken Unknown] carbidopa 25 mg-levodopa 100 mg tablet 1 tab PO DAILY@2300 PD 01/14/23 [History Last Taken Unknown] carbidopa 25 mg-levodopa 100 mg tablet 3 tab PO TID@0800,1200,1700 pd 01/14/23 [History Last Taken Unknown] hydralazine 10 mg tablet 10 mg PO TID PRN systolic bp greater than 190 01/14/23 [History Last Taken Unknown] miconazole nitrate 2 % topical powder (Antifungal (miconazole)) 1 applic topical BID back rash 01/14/23 [History Last Taken Unknown] mirabegron 50 mg tablet,extended release 24 hr (Myrbetriq) 50 mg PO DAILY@1400 OAB 01/14/23 [History Last Taken Unknown] pantoprazole 40 mg tablet,delayed release (Protonix) 40 mg PO BID@0600,1600 gerd 01/14/23 [History Last Taken Unknown] polyethylene glycol 3350 17 gram/dose oral powder (Miralax) 17 g PO DAILY constipation 01/14/23 [History Last Taken Unknown] sennosides 8.6 mg-docusate sodium 50 mg tablet (Senna-Time S) 1 tab-cap PO BID constipation 01/14/23 [History Last Taken Unknown] solifenacin 10 mg tablet 10 mg PO DAILY OAB 01/14/23 [History Last Taken Unknown] Allergy/AdvReac Type Severity Reaction Status Date / Time Penicillins [PCN] Allergy Unknown Verified 12/25/22 13:42 Family History (Updated 01/15/23 @ 10:[address] 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 Smoking Status: Never smoker alcohol intake: never substance use type: does not use and former substance user Date of last use: 1976 ROS Constitutional Constitutional: Reports anorexia and fatigue; Denies fever(s) or weakness Eyes Eyes: Denies change in vision ENT HEENT: Reports abnormal hearing, dysphagia and nasal congestion; Denies headache(s) or sore throat Cardiovascular Cardiovascular: Denies chest pain, edema, palpitations or syncope Respiratory/Chest Respiratory/Chest: Denies cough, shortness of breath at rest or shortness of breath with exertion Gastrointestinal Gastrointestinal: Reports constipation; Denies abdominal pain, diarrhea, nausea or vomiting Genitourinary Genitourinary: Denies dysuria, urinary frequency, urinary hesitancy or urinary urgency Musculoskeletal Musculoskeletal: Reports muscle weakness; Denies back pain or extremity pain Integumentary Integumentary: Denies rash Neurologic Neurologic: Reports abnormal gait, dizziness, numbness and tingling; Denies confusion, headache(s) or weakness Psychiatric Psychiatric: Reports depression; Denies anxiety or suicidal ideation Vital Signs Vital Signs Vital Signs: 01/14/23 22:21 01/14/23 23:35 01/15/23 08:15 Temperature 97.8 F Temperature Source Oral Pulse Rate 75 74 Respiratory Rate 18 Respiratory Effort Normal Non-Labored Respiratory Depth Normal Respiratory Pattern Normal Blood Pressure 140/80 H Blood Pressure Mean 100 Blood Pressure Source Monitor Blood Pressure Position Semi-Fowlers Blood Pressure Location Left Arm Pulse Ox 99 Oxygen Delivery Method Room Air Room Air Weight Weight: 112 lb 6.972 oz Body Mass Index (BMI) 17.6 Indicators for Scoring Admitted with or Primary Diagnosis of CVA/Stroke: No Hx of CVA/Stroke: No Physical Exam Const alert, oriented x3 and no apparent distress Constitutional Narrative: Emaciated, very soft spoken, diffuse muscle contraction General Appearance: cooperative; Negative for in distress, ill appearing or diaphoretic Orientation / Consciousness: awake, oriented to person, oriented to place and oriented to time Exam Limitations: Negative for altered mental status HEENT normocephalic, head/scalp atraumatic, oropharynx normal and dentition normal Head and Scalp: normocephalic and atraumatic Face and Sinus: normal facial exam Mouth: dry mucous membranes Eyes PERRL General Eye: normal appearance of both eyes Conjunctiva: conjunctiva normal Sclera: sclera normal Pupil: PERRL Chest inspection of chest normal Chest: abnormal inspection of the chest and symmetrical chest wall rise Resp normal respiratory effort, normal air movement, no use of accessory muscles and clear to auscultation bilaterally Resp Narrative: wearing oxygen Effort and Inspection: able to speak in complete sentences and symmetric chest movement; Negative for respiratory distress or audible wheezes Auscultation: clear to auscultation bilaterally Cardio regular rate, regular rhythm and no murmurs Cardio Narrative: Distant heart sounds Rate: regular rate Rhythm: regular rhythm Heart Sounds: Negative for murmur GI normal to inspection, nondistended, normoactive bowel sounds, soft to palpation, non-tender and non-distended GI Narrative: Peg tube in place. Dressing is clean, dry and intact Auscultation: normoactive bowel sounds Palpation: soft; Negative for tender or guarding Extremity normal to inspection Extremity Narrative: SCDs in place General Extremity: Negative for edema Skin no rashes or lesions noted Skin Narrative: Unable to assess reported pressure ulcer Lesions: no lesions Rashes: no rashes Neuro oriented x3 Sensorium / Orientation: awake, alert, oriented to person, oriented to place and oriented to time Speech: speech normal Psych mental status grossly normal, cooperative, affect normal and speech normal Appearance: grossly normal Attitude: calm Results Medical Records Data Attestation: I reviewed the patient's medical records Lab / Micro Data Attestation: I reviewed the patient's lab results. 01/15/23 05:18 01/15/23 05:18 Labs: Laboratory Results - last 24 hr 01/15/23 05:18: WBC 10.3, RBC 3.86 L, Hgb 11.5 L, Hct 36.4 L, MCV 94.3 H, MCH 29.8, MCHC 31.6 L, RDW Std Deviation 52.0 H, RDW Coeff of Lexii 15.3 H, Plt Count 379, MPV 10.9, Sodium 136, Potassium 4.2, Chloride 102, Carbon Dioxide 35.0 H, Anion Gap -1 L, BUN 24 H, Creatinine 0.97, Estim Creat Clear Calc 48.20, Est GFR (MDRD) Af Amer 97, Est GFR (MDRD) Non-Af 80, BUN/Creatinine Ratio 24.7 H, Glucose 99, Calcium 8.4 L, Phosphorus 2.4 L, Magnesium 3.2 H, Total Bilirubin 0.40, AST 10 L, ALT < 6 L, Alkaline Phosphatase 77, Total Protein 6.0 L, Albumin 2.4 L, Globulin 3.6, Albumin/Globulin Ratio 0.7 L 01/15/23 05:34: POC Glucose 104 Assessment & Plan Assessment/Plan (1) Debility: PLAN: Will admit to the inpatient rehab for physical and occupational therapy. Will continue with 3 hours of daily therapy for strengthening with a goal to return home with patient's . Will continue with pain control as needed, a bowel regimen and fall precautions. DVT prophylaxis with ambulation and SCDs. Patient will need to follow up with GI, Neurology and his PCP, Dr. Yu upon discharge from rehab unit. Patient wishes to be a full code. (2) Parkinson disease: QUALIFIERS: Dyskinesia presence: with dyskinesia Fluctuating manifestations: unspecified whether manifestations fluctuate Qualified Code(s): G20.B1 - Parkinson's disease with dyskinesia, without mention of fluctuations PLAN: As above. Will continue home medications. Will resume baclofen which was being used at [facility] to help with muscle spasms and contractility. Patient denies any pain associated with these. (3) Oropharyngeal dysphagia: PLAN: PEG tube in place. Speech therapy consult. Will continue with isosource 1.5 [id number] every 4 hours. Will also continue with H20 50cc before and after feeds. Patient may continue with soft/bite sized fiber controlled diet with thinned liquids. (4) S/P percutaneous endoscopic gastrostomy (PEG) tube placement: PLAN: As above. Patient is currently tolerating tube feeds well. (5) Muscle spasm: PLAN: As above. Baclofen resumed. Will continue to monitor and adjust as needed. (6) Severe protein-calorie malnutrition: PLAN: As above. (7) Esophagitis: PLAN: Will continue protonix 40mg BID (8) Overactive bladder: PLAN: Continue home medications including myrbetriq and solifenacin. (9) HTN (hypertension): QUALIFIERS: Hypertension type: essential hypertension Qualified Code(s): I10 - Essential (primary) hypertension PLAN: Blood pressure shows fair control. Patient hasn't been on medications following weight loss. Will continue with PRN hydralazine and monitor. (10) BPH (benign prostatic hyperplasia): QUALIFIERS: Lower urinary tract symptom presence: symptoms absent Qualified Code(s): N40.0 - Benign prostatic hyperplasia without lower urinary tract symptoms PLAN: Stable. No current symptoms. (11) Hyponatremia: PLAN: Resolved. Most recent sodium level was 136. Will continue to monitor. (12) DMII (diabetes mellitus, type 2): QUALIFIERS: Diabetes mellitus complication status: without complication Diabetes mellitus pediatric nephrologist insulin use: without nursing home use Qualified Code(s): E11.9 - Type 2 diabetes mellitus without complications PLAN: Patient hasn't been on diabetic medications since his weight loss. Will continue with glucose checks and add SSI as needed. Last A1c was out of diabetic range at 5.6. (13) Stage II pressure sore: QUALIFIERS: Pressure injury location: sacral region Qualified Code(s): L89.152 - Pressure ulcer of sacral region, stage 2 PLAN: Could not assess on exam today. Will continue with wound care, close monitoring and frequent repositioning. Charges/Coding Visit Charges Inpatient E&M: 57691 Init Hosp L3
--- NOTE | 2023-01-15 11:04 | PCM.RU.PYE ---
Admission Information Primary Diagnosis:: Debility, dysphagia, esophagitis, Parkinson's Status Changes from Prescreening?: No changes Identified Actual Problem List:: Falls, Skin Intergrity, Bowel, Constipation and Mobility Impaired Potential Problem List:: DVT, Infection, UTI, Aspiration, Falls, Skin Integrity and Depression Risk of Complications DVT: Sequential Compression Device Infection: Clinical Staff to Monitor for S/S of infection: and S/S of infection include fever, redness, warmth, etc. Urinary Tract Infection: Monitor for frequency, burning, discomfort, or incontinence. and Nursing will obtain urine sample for urinalysis and C&S when ordered. Aspiration: Clinical staff will monitor for coughing, drooling, congestion., Speech will evaluate swallowing and dsyphasia. and Nursing will monitor patient swallowing during meals. Falls: Patient will be placed on Fall Precautions as indicated per protocol. Skin Breakdown: Nursing will assess skin daily using assessment tool. and Nursing will place on Skin Breakdown Precautions as indicated. Pain: Clinical staff will assess patient's pain level per protocol. Plan of Care Patient requires physician specializing in physical medicine and rehab oversight to provide close medical supervision of rehab issues including: Pain Management, Medical and co-morbidity Management, Rehabilitation Leadership and Coordination of treatment team Patient needs Physical Therapy: For a minimum of 1 hour and At least 5 out of 7 days Patient needs Physical Therapy to improve:: Mobility, Strengthening and ROM Patient needs Occupational Therapy: For a minimum of 1 hour and At least 5 out of 7 days Patient needs Occupational Therapy to improve ADL's incl.: Eating, Grooming, Bathing, Dressing and Toileting Patient requires speech therapy: For a minimum of 1 hour and At least 5 out of 7 days Patient requires speech therapy for: Swallowing Patient requires 24/7 Rehabilitation Nursing for: Pain Issues, Identifying and preventing risk factors, Assisting with ambulation, transfer, and all ADL's, Family teaching, Providing safe environment, Bowel and Bladder Issues, Skin integrity and Medication Management Patient needs Communications Planner/ Case Management for: Discharge Planning, Arranging Home Equipment or Services and Family Interventions Patient needs Dietary and Nutrition Services for: Adequate Nutrition and Nutritional Supplements Goals Patient will remain: free from falls and or injury at time of discharge. Patient will perform bed mobility at: - (Mod A of two) Patient will complete transfers from bed to chair at: - (Mod A of two) Patient will ambulate: - (25 feet with min assist of one using WW) Patient will complete upper body dressing at: - (Min A) Patient will complete lower body dressing at: - (Mod A) Patient will complete toileting at: - (Mod A) Patient will perform bathing at: - (Mod A) Patient will complete grooming at: - (Setup) Patient will have pain level of: of 3 or less Patient's skin will: free from infection. Patient will receive: adequate nutrition. Discharge Planning Pt Prognosis for Sig. Practical Improv. w/in Reasonable Time: Fair Estimated Length of stay (days): 14 Anticipated D/C Destination: Home w/ family or friends Visit Charges Inpatient E&M: 77994 Init Hosp L3
[2023-01-15] MEDS: Baclofen 10 MG Tablet 5 MG PO ×2 (11:12→22:13)
[2023-01-15] MEDS: Mirabegron 50 MG TAB.ER.24H PO (14:32)
--- NOTE | 2023-01-15 14:53 | WOUNDNOTE ---
wound photo: left leg
--- NOTE | 2023-01-15 14:53 | WOUNDNOTE ---
skin photo: left heel
--- NOTE | 2023-01-15 14:55 | WOUNDNOTE ---
skin photo: left heel
--- NOTE | 2023-01-15 14:55 | WOUNDNOTE ---
skin photo: right heel
--- NOTE | 2023-01-15 14:56 | WOUNDNOTE ---
skin photo: right foot
--- NOTE | 2023-01-15 14:57 | WOUNDNOTE ---
skin photo: right heel
--- NOTE | 2023-01-15 14:57 | WOUNDNOTE ---
skin photo: back
--- NOTE | 2023-01-15 14:59 | WOUNDNOTE ---
Was asked to see patient for unstageable pressure injuries to bilateral heels and ankles. removed the heel protectors and LENNY hose. bilateral heels with some pink/purple discoloration noted. tissues are blanchable though. heels do not feel mushy at this time. no open areas noted. there is no eschar noted to classify these areas as unstageable. since the tissues dipesh, so not consider this redness a pressure injury. patient is very thin and frail so will need to keep heels protected and offloaded to prevent injuries. patient does have some redness noted to the back. skin does dipesh there was well. almost appears more like a rash. patient has nystatin powder ordered. will see of this improves with the nystatin. will continue to monitor. see wound/skin photos.
--- NOTE | 2023-01-15 15:27 | CHAPLAIN ---
Type of Pastoral Visit _x__ Initial Visit ___ Follow-up Visit ___ On-call Visit ___ General Patient Visit ___ Spiritual Assessment ___ Family Conference ___ Bereavement ___ Rapid Response ___ Code Blue ___ Other (describe below) Pastoral Care Referral From _x__ Patient ___ Family ___ Nurse ___ Physician ___ Agate Setter ___ General Merchandise Manager ___ Other (describe below) Sacrament/Intervention _x__ Active listening ___ Anointing ___ Roman Catholic ___ Bereavement ___ Communion ___ [place] exploration ___ _x__ Life review _x__ Prayer ___ Reconciliation ___ Sacrament of Sick _x__ Supportive presence ___ Wedding ___ Other (describe below) Pastoral Comments patient has very limited abilities physically and his speech is very soft and with one word or short phrases; pt is welcoming and does attempt to answer all questions asked of him; nursing interventions took place during this visit and pt was calm and accepting of care; some discussion about family takes place; pt says he came from [place] to live near/with daughter and family here; pt has two grandchildren here who are now young adults; pt identifies self as a Yarsanism person but not actively involved in sabianism services; pt welcomes a prayer and states that you are welcome anytime;
[2023-01-15 16:33] LABS: Bedside Glucose 115 mg/dL (74-106)
[2023-01-15] MEDS: Acetaminophen 325 MG Tablet 650 MG PO (16:36)
[2023-01-15 21:21] LABS: Squamous Epithelial Cells - UA 0 SEEN /hpf (0-5)
[2023-01-15 21:23] LABS: Color, Urine Yellow (Yellow); Glucose, Dipstick Normal (Normal); Ketone-Dipstick 5 mg/dl (Negative); Leukocyte Esterase-Dipstick 500 /ul (Negative); Nitrite-Dipstick Negative (Negative); Occult Blood-Urine 25 /ul (Negative); Protein-Dipstick 15 mg/dl (Negative); Specific Gravity, Urine 1.015 (1.002-1.030); Urine Bilirubin Dipstick Negative (Negative); Urine Clarity Sl. Cloudy (Clear); Urine Urobilinogen Normal (Normal)
[2023-01-15 21:43] LABS: Bacteria 1+ /hpf (None Seen); White Blood Cells >100 SEEN /hpf (0-5)
[2023-01-15 21:44] LABS: Mucous, Urine RARE /hpf (<or=2+); Red Blood Cells-Urine 0-5 SEEN /hpf (0-5)
[2023-01-15 23:09] LABS: Bedside Glucose 133 mg/dL (74-106)
[2023-01-16 05:13] VITALS: BMI 19.1
[2023-01-16] MEDS: Menthol/Lanolin/Calamine/Znox 113 GM Tube 1 APPLIC TOPICAL ×3 (05:53→22:52)
[2023-01-16] MEDS: Pantoprazole Sodium 40 MG Tablet PO (05:53)
[2023-01-16 06:10] VITALS: O2SAT 95
[2023-01-16 06:14] VITALS: O2SAT 99
[2023-01-16 06:28] LABS: Bedside Glucose 91 mg/dL (74-106)
[2023-01-16] MEDS: Carbidopa/Levodopa 25/100 Tablet PO ×4 (09:30→22:30)
[2023-01-16 09:43] VITALS: BP 145/86; PULSE 71; RESP 18; TEMP 36.4; O2SAT 97
[2023-01-16] MEDS: Polyethylene Glycol 3350 17 GM PACKET PO (09:54)
[2023-01-16] MEDS: Senna/Docusate Sodium 1 Tablet PO ×2 (09:54→22:52)
[2023-01-16] MEDS: Tolterodine Tartrate 4 MG CAP.SA PO (09:54)
[2023-01-16] MEDS: Baclofen 10 MG Tablet 5 MG PO ×2 (09:54→22:52)
[2023-01-16] MEDS: Amantadine 100 MG Capsule PO (09:55)
[2023-01-16] MEDS: Jevity 1.5. 1,000 ML Bottle 300 ML GT ×4 (09:59→22:54)
[2023-01-16 12:12] LABS: Bedside Glucose 110 mg/dL (74-106)
[2023-01-16] MEDS: Nystatin Powder 15gm Bottle 1 APPLIC TOPICAL ×2 (12:18→22:53)
[2023-01-16] MEDS: Mirabegron 50 MG TAB.ER.24H PO (12:18)
--- NOTE | 2023-01-16 13:58 | EX.PCM.PN.RE ---
Subjective Subjective Patient was admitted for daily rehab following a hospital stay for progressive weakness in the setting of Parkinson's disease, dysphagia and esophagitis. No events overnight. The patient reports he has been working with therapy and states it has been slow. He denies any pain. His diet was recently changed to his dysphagia. He feels that he will be having a bowel movement soon. He has no questions or concerns at this time. Objective Data Objective Data Vital Signs: Vital Signs Temp Pulse Resp BP Pulse Ox O2 Del Method O2 Flow Rate 97.5 F L 71 18 145/86 H 97 Room Air 1 01/16/23 09:43 01/16/23 09:43 01/16/23 09:43 01/16/23 09:43 01/16/23 09:43 01/16/23 09:43 01/15/23 22:21 Oxygen Flow Rate (L/min) 1 Oxygen Delivery Method Room Air Weight: 121 lb 7.595 oz Body Mass Index (BMI) 19.1 Intake & Output: Intake and Output for Last 24 Hours 01/14/23 01/15/23 01/16/23 23:59 23:59 23:59 Intake Total 860 / 860 100 / 100 Balance 860 / 860 100 / 100 Medical Nutrition Assessment Dietitian: Malnutrition Criteria Met Start: 01/15/23 13:17 Freq: Status: Active Protocol: Document 01/15/23 13:17 AG (Rec: 01/15/23 13:17 AG Desktop) Nutrition Malnutrition Evidence of Malnutrition Exists Yes Malnutrition (severe): Chronic Evidenced By Suboptimal Energy Intake ( Severe),Weight Loss (Severe), Physical Changes (Severe) Clinical Problem Chronic Disease or Condition Related Malnutrition Etiology severe, chronic malnutrition related to inadequate energy intake d/t dysphagia Signs/Symptoms as evidenced by estimated PO intake meeting <75% of estimated energy needs > 3 months, unintentional 18% wt loss x 6 months, Severe muscle wasting/fat loss evident per physical exam in orbital, clavicle, acromion, and temporal areas, BMI 17.6 Status Active Problem Recommendation Dietitian Recommendations/Changes 1. Regular diet- texture/ consistency (purees/thins) per ULTRASOUND SPECIALIST; anticipate PO diet to be mostly for pleasure, so 100% of estimated energy needs to be met via enteral nutrition. 2. Will continue via PEG- Jevity 1.5 300mL 4x/day w/ 100mL H2O flush before and after each bolus to provide 1800 calories, 76.56 g protein , and 1712mL fluid/day. Noted pt on Sinemet which must be given 30 minutes before meals or 1 hour after meals. Will order Jevity boluses after meal times and at HS. 3. Daily wts. 4. Will monitor wound assessments and add Romain BID via PEG as indicated. Lab / Micro Data Attestation: I reviewed the patient's lab results. 01/15/23 05:18 01/15/23 05:18 Labs: Laboratory Results - last 24 hr 01/15/23 16:14: POC Glucose 115 H 01/15/23 17:15: Urine Color Yellow, Urine Clarity Sl. Cloudy, Urine pH 8.0, Ur Specific [place] 1.015, Urine Protein 15 H, Urine Glucose (UA) Normal, Urine Ketones 5 H, Urine Occult Blood 25 H, Urine Nitrite Negative, Urine Bilirubin Negative, Urine Urobilinogen Normal, Ur Leukocyte Esterase 500 H, Urine RBC 0-5 SEEN, Urine WBC >100 SEEN, Ur Squamous Epith Cells 0 SEEN, Urine Bacteria 1+, Urine Mucus RARE 01/15/23 22:51: POC Glucose 133 H 01/16/23 05:56: POC Glucose 91 01/16/23 11:53: POC Glucose 110 H Indicators for Scoring Admitted with or Primary Diagnosis of CVA/Stroke: No Hx of CVA/Stroke: No Physical Exam Const alert, oriented x3 and no apparent distress Constitutional Narrative: Emaciated, very soft spoken, diffuse muscle contraction General Appearance: cooperative; Negative for in distress, ill appearing or diaphoretic Orientation / Consciousness: awake, oriented to person, oriented to place and oriented to time Exam Limitations: Negative for altered mental status HEENT normocephalic, head/scalp atraumatic, oropharynx normal and dentition normal Head and Scalp: normocephalic and atraumatic Face and Sinus: normal facial exam Mouth: dry mucous membranes Eyes PERRL General Eye: normal appearance of both eyes Conjunctiva: conjunctiva normal Sclera: sclera normal Pupil: PERRL Chest inspection of chest normal Chest: abnormal inspection of the chest and symmetrical chest wall rise Resp normal respiratory effort, normal air movement, no use of accessory muscles and clear to auscultation bilaterally Resp Narrative: wearing oxygen Effort and Inspection: able to speak in complete sentences and symmetric chest movement; Negative for respiratory distress or audible wheezes Auscultation: clear to auscultation bilaterally Cardio regular rate, regular rhythm and no murmurs Cardio Narrative: Distant heart sounds Rate: regular rate Rhythm: regular rhythm Heart Sounds: Negative for murmur GI normal to inspection, nondistended, normoactive bowel sounds, soft to palpation, non-tender and non-distended GI Narrative: Peg tube in place. Dressing is clean, dry and intact Auscultation: normoactive bowel sounds Palpation: soft; Negative for tender or guarding Extremity normal to inspection Extremity Narrative: SCDs in place General Extremity: Negative for edema Skin no rashes or lesions noted Lesions: no lesions Rashes: no rashes Neuro oriented x3 Sensorium / Orientation: awake, alert, oriented to person, oriented to place and oriented to time Speech: speech normal Psych mental status grossly normal, cooperative, affect normal and speech normal Appearance: grossly normal Attitude: calm Assessment & Plan Assessment/Plan (1) Debility: PLAN: Will continue with PT/OT and follow up on findings and recommendations. Continue with PRN pain management, bowel regimen and fall precautions. (2) Parkinson disease: QUALIFIERS: Dyskinesia presence: with dyskinesia Fluctuating manifestations: unspecified whether manifestations fluctuate Qualified Code(s): G20.B1 - Parkinson's disease with dyskinesia, without mention of fluctuations PLAN: As above. Will continue home medications. Will continue baclofen to help with muscle spasms and contractility. Patient denies any pain associated with these. (3) Oropharyngeal dysphagia: PLAN: PEG tube in place. Speech therapy following. His diet has been changed to full thin liquids due to concern of aspiration. Will continue with isosource 1.5 8m672iv every 4 hours. Will also continue with H20 50cc before and after feeds. (4) S/P percutaneous endoscopic gastrostomy (PEG) tube placement: PLAN: As above. Patient is currently tolerating tube feeds well. (5) Muscle spasm: PLAN: As above. Continue with baclofen. Will continue to monitor and adjust as needed. (6) Severe protein-calorie malnutrition: PLAN: As above. (7) Esophagitis: PLAN: Will continue protonix 40mg BID (8) Overactive bladder: PLAN: Continue home medications including myrbetriq and solifenacin. (9) HTN (hypertension): QUALIFIERS: Hypertension type: essential hypertension Qualified Code(s): I10 - Essential (primary) hypertension PLAN: Blood pressure slightly elevated currently. Patient hasn't been on medications following weight loss. Will continue with PRN hydralazine and monitor. (10) BPH (benign prostatic hyperplasia): QUALIFIERS: Lower urinary tract symptom presence: symptoms absent Qualified Code(s): N40.0 - Benign prostatic hyperplasia without lower urinary tract symptoms PLAN: Stable. No current symptoms. (11) DMII (diabetes mellitus, type 2): QUALIFIERS: Diabetes mellitus complication status: without complication Diabetes mellitus intermediate designer insulin use: without intermediate designer use Qualified Code(s): E11.9 - Type 2 diabetes mellitus without complications PLAN: Patient hasn't been on diabetic medications since his weight loss. Will continue with glucose checks and add SSI as needed. Last A1c was out of diabetic range at 5.6. Glucose was 110 this morning. Charges/Coding Visit Charges Inpatient E&M: 00322 Subs Hosp L2
[2023-01-16 16:37] LABS: Bedside Glucose 80 mg/dL (74-106)
[2023-01-16 19:50] VITALS: BP 139/83; PULSE 88; RESP 18; TEMP 36.9; O2SAT 97
[2023-01-16 23:35] LABS: Bedside Glucose 90 mg/dL (74-106)
[2023-01-17] MEDS: Menthol/Lanolin/Calamine/Znox 113 GM Tube 1 APPLIC TOPICAL ×3 (05:51→22:16)
[2023-01-17] MEDS: Pantoprazole Sodium 40 MG Tablet PO (05:51)
[2023-01-17 06:00] VITALS: BMI 17.2
[2023-01-17 07:18] LABS: Bedside Glucose 83 mg/dL (74-106)
[2023-01-17 08:08] VITALS: BP 129/71; PULSE 71; RESP 18; TEMP 36.7; O2SAT 97
--- NOTE | 2023-01-17 08:26 | PN.REHAB_ITS ---
Subjective Subjective Patient seen, examined. He has no new complaints. He speaks very softly, cachetic appearing. He tells me he has had Parkinson Disease for 10 years. Objective Data Objective Data Vital Signs: Vital Signs Temp Pulse Resp BP Pulse Ox O2 Del Method O2 Flow Rate 98.0 F 71 18 129/71 H 97 Room Air 1 01/17/23 08:08 01/17/23 08:08 01/17/23 08:08 01/17/23 08:08 01/17/23 08:08 01/17/23 08:08 01/15/23 22:21 Oxygen Flow Rate (L/min) 1 Oxygen Delivery Method Room Air Weight: 55.1 kg Body Mass Index (BMI) 19.1 Intake & Output: Intake and Output for Last 24 Hours 01/15/23 01/16/23 01/17/23 23:59 23:59 23:59 Intake Total 860 / 860 1180 / 1180 Balance 860 / 860 1180 / 1180 Medical Nutrition Assessment Dietitian: Malnutrition Criteria Met Start: 01/15/23 13:17 Freq: Status: Active Protocol: Document 01/15/23 13:17 AG (Rec: 01/15/23 13:17 AG Desktop) Nutrition Malnutrition Evidence of Malnutrition Exists Yes Malnutrition (severe): Chronic Evidenced By Suboptimal Energy Intake ( Severe),Weight Loss (Severe), Physical Changes (Severe) Clinical Problem Chronic Disease or Condition Related Malnutrition Etiology severe, chronic malnutrition related to inadequate energy intake d/t dysphagia Signs/Symptoms as evidenced by estimated PO intake meeting <75% of estimated energy needs > 3 months, unintentional 18% wt loss x 6 months, Severe muscle wasting/fat loss evident per physical exam in orbital, clavicle, acromion, and temporal areas, BMI 17.6 Status Active Problem Recommendation Dietitian Recommendations/Changes 1. Regular diet- texture/ consistency (purees/thins) per ANIMAL CARE SUPERVISOR; anticipate PO diet to be mostly for pleasure, so 100% of estimated energy needs to be met via enteral nutrition. 2. Will continue via PEG- Jevity 1.5 300mL 4x/day w/ 100mL H2O flush before and after each bolus to provide 1800 calories, 76.56 g protein , and 1712mL fluid/day. Noted pt on Sinemet which must be given 30 minutes before meals or 1 hour after meals. Will order Jevity boluses after meal times and at HS. 3. Daily wts. 4. Will monitor wound assessments and add Romain BID via PEG as indicated. Lab / Micro Data 01/15/23 05:18 01/15/23 05:18 Labs: Laboratory Results - last 24 hr 01/16/23 11:53: POC Glucose 110 H 01/16/23 16:16: POC Glucose 80 01/16/23 23:01: POC Glucose 90 01/17/23 05:54: POC Glucose 83 Indicators for Scoring Admitted with or Primary Diagnosis of CVA/Stroke: No Hx of CVA/Stroke: No Modified Shameka Score MRS Score at time of Evaluation: 4-Moderate/severe disability Physical Exam Const alert General Appearance: cooperative HEENT normocephalic Eyes PERRL and EOMs intact bilaterally Neck supple, no JVD and no carotid bruits Resp normal respiratory effort, normal air movement and clear to auscultation bilaterally Cardio regular rate and regular rhythm GI normal to inspection, nondistended, normoactive bowel sounds, non-tender and non-distended GI Narrative: PEG tube present. Extremity normal capillary refill General Extremity: Negative for edema Skin no rashes or lesions noted General Skin Exam: no breakdown Psych affect normal Appearance: appropriate Assessment & Plan Assessment/Plan (1) Debility: (2) Parkinson disease: QUALIFIERS: Dyskinesia presence: with dyskinesia Fluctuating man ifestations: unspecified whether manifestations fluctuate Qualified Code(s): G20.B1 - Parkinson's disease with dyskinesia, without mention of fluctuations (3) S/P percutaneous endoscopic gastrostomy (PEG) tube placement: (4) Muscle spasm: (5) HTN (hypertension): QUALIFIERS: Hypertension type: essential hypertension Qualified Code(s): I10 - Essential (primary) hypertension (6) Esophagitis: (7) Overactive bladder: PLAN: Plan 72 year old male with stage 5 Parkinson Disease admitted to for 3 hours daily rehabilitation, strengthening. * Debility - PT/OT. * Dysphagia - ST. * Pain - Tylenol 650mg q4 prn pain (1-10). * Bowel - Miralax 17gm daily, senna/colace 1 tablet bid, Dulcolax 10mg pr x 1 prn, MOM 30ml po x 1 prn. * Parkinson Disease - Sinemet 25/100mg 3 tablets tid, 1 tablet 2300, Amantadine 100mg daily, Azilect 1mg daily. * Muscle spasm - Baclofen 5mg bid. * Hypertension - Hydralazine 10mg tid prn. * s/p PEG - Jevity 1.5 300ml tidpc, 300ml qhs. * Esophagitis - Lansoprazole 30mg bid. * Skin irritation - Calmoseptine topical tid, Eucerin topical tid prn. * Tinea Corporis - Nystatin powder topical bid. * Overactive bladder - Myrbetriq 50mg daily, Tolterodine 4mg daily, urine culture pending. Capacity Capacity Assessment Tool Can the patient make a choice & communicate that choice?: Yes Can the patient understand benefits, risks and alternatives?: Yes Can the patient make a logical, rational choice?: Yes Is the choice the patient makes consistent w/ their values?: Yes Is there an impending, emergent risk to the patient?: No Does the patient have an Advance Directive?: No Is there a Surrogate Available?: Yes i.e. HCPOA: Yes i.e. close relative (spouse, child, parent, sibling)?: Yes
[2023-01-17] MEDS: Amantadine 100 MG Capsule PO (08:43)
[2023-01-17] MEDS: Carbidopa/Levodopa 25/100 Tablet PO ×4 (08:43→22:15)
[2023-01-17] MEDS: Tolterodine Tartrate 4 MG CAP.SA PO (08:43)
[2023-01-17] MEDS: Magnesium Hydroxide 30 ML UDC PO (08:44)
[2023-01-17] MEDS: Polyethylene Glycol 3350 17 GM PACKET PO (08:44)
[2023-01-17] MEDS: Senna/Docusate Sodium 1 Tablet PO ×2 (08:44→22:14)
[2023-01-17] MEDS: Baclofen 10 MG Tablet 5 MG PO ×2 (08:44→22:15)
[2023-01-17] MEDS: Jevity 1.5. 1,000 ML Bottle 300 ML GT ×4 (08:45→22:17)
[2023-01-17] MEDS: Nystatin Powder 15gm Bottle 1 APPLIC TOPICAL ×2 (08:58→22:15)
[2023-01-17 12:22] LABS: Bedside Glucose 116 mg/dL (74-106)
[2023-01-17] MEDS: Mirabegron 50 MG TAB.ER.24H PO (13:21)
[2023-01-17] MEDS: Doxycycline 100 MG CAPSULE PO ×2 (16:12→22:14)
[2023-01-17] MEDS: Nitrofurantoin Macrocrystals 100 MG Capsule PO ×2 (16:12→22:15)
[2023-01-17] MEDS: Lansoprazole 15 MG Capsule.DR 30 MG GT (16:12)
[2023-01-17 17:35] VITALS: O2SAT 96
[2023-01-17 17:37] LABS: Bedside Glucose 95 mg/dL (74-106)
[2023-01-17 21:00] VITALS: BP 144/81; PULSE 84; RESP 20; TEMP 37.3; O2SAT 97
[2023-01-17] MEDS: Petrolatum 33% Tube 1 APPLIC TOPICAL (22:15)
[2023-01-17 22:29] LABS: Bedside Glucose 102 mg/dL (74-106)
[2023-01-18 05:37] VITALS: BMI 17.2
[2023-01-18 05:46] LABS: Bedside Glucose 94 mg/dL (74-106)
[2023-01-18] MEDS: Menthol/Lanolin/Calamine/Znox 113 GM Tube 1 APPLIC TOPICAL ×3 (05:58→21:01)
[2023-01-18] MEDS: Lansoprazole 15 MG Capsule.DR 30 MG GT ×2 (05:58→17:28)
[2023-01-18 07:37] VITALS: PULSE 80; RESP 17; TEMP 36.2; O2SAT 96
[2023-01-18 08:10] VITALS: O2SAT 97
[2023-01-18] MEDS: Baclofen 10 MG Tablet 5 MG PO (08:58)
[2023-01-18] MEDS: Polyethylene Glycol 3350 17 GM PACKET PO (08:58)
[2023-01-18] MEDS: Tolterodine Tartrate 4 MG CAP.SA PO (08:59)
[2023-01-18] MEDS: Senna/Docusate Sodium 1 Tablet PO (08:59)
[2023-01-18] MEDS: Carbidopa/Levodopa 25/100 Tablet PO (08:59)
[2023-01-18] MEDS: Jevity 1.5. 1,000 ML Bottle 300 ML GT ×4 (09:00→21:01)
[2023-01-18] MEDS: Doxycycline 100 MG CAPSULE PO (09:00)
[2023-01-18] MEDS: Amantadine 100 MG Capsule PO (09:00)
[2023-01-18] MEDS: Nitrofurantoin Macrocrystals 100 MG Capsule PO (09:02)
[2023-01-18] MEDS: Nystatin Powder 15gm Bottle 1 APPLIC TOPICAL ×2 (09:05→21:01)
[2023-01-18 09:06] VITALS: BP 158/84; PULSE 67
[2023-01-18] MEDS: Acetaminophen 325 MG Tablet 650 MG PO (10:20)
--- NOTE | 2023-01-18 10:28 | NURSING ---
Per Speech therapy, all medications are to be given PEG tube only.
[2023-01-18] MEDS: Carbidopa/Levodopa 25/100 Tablet GT ×3 (13:01→20:59)
[2023-01-18] MEDS: Mirabegron 50 MG TAB.ER.24H PO (13:01)
[2023-01-18 14:07] LABS: Bedside Glucose 116 mg/dL (74-106)
[2023-01-18 18:08] LABS: Bedside Glucose 99 mg/dL (74-106)
[2023-01-18 20:45] VITALS: BP 141/74; PULSE 96; RESP 18; TEMP 36.9; O2SAT 98
[2023-01-18] MEDS: Baclofen 10 MG Tablet 5 MG GT (20:59)
[2023-01-18] MEDS: Senna/Docusate Sodium 1 Tablet GT (20:59)
[2023-01-18] MEDS: Doxycycline 100 MG CAPSULE GT (21:00)
[2023-01-19 06:00] VITALS: BMI 17.6
[2023-01-19] MEDS: Menthol/Lanolin/Calamine/Znox 113 GM Tube 1 APPLIC TOPICAL ×3 (06:13→22:07)
[2023-01-19] MEDS: Lansoprazole 15 MG Capsule.DR 30 MG GT ×2 (06:14→17:24)
[2023-01-19 06:48] LABS: Bedside Glucose 86 mg/dL (74-106)
[2023-01-19] MEDS: Tolterodine Tartrate 4 MG CAP.SA PO (09:26)
[2023-01-19] MEDS: Baclofen 10 MG Tablet 5 MG GT ×2 (09:26→22:05)
[2023-01-19] MEDS: Amantadine 100 MG Capsule GT (09:26)
[2023-01-19] MEDS: Carbidopa/Levodopa 25/100 Tablet GT ×4 (09:26→22:04)
[2023-01-19] MEDS: Doxycycline 100 MG CAPSULE GT ×2 (09:26→22:03)
[2023-01-19] MEDS: Senna/Docusate Sodium 1 Tablet GT ×2 (09:27→22:03)
[2023-01-19] MEDS: Polyethylene Glycol 3350 17 GM PACKET GT (09:27)
[2023-01-19] MEDS: Nystatin Powder 15gm Bottle 1 APPLIC TOPICAL ×2 (09:28→22:08)
[2023-01-19] MEDS: Jevity 1.5. 1,000 ML Bottle 300 ML GT ×4 (09:28→22:08)
[2023-01-19] MEDS: Acetaminophen 650 MG/20 ML UDC GT (09:58)
[2023-01-19 10:00] VITALS: BP 148/90; PULSE 70; RESP 14; TEMP 36.1; O2SAT 98
[2023-01-19 12:53] LABS: Bedside Glucose 121 mg/dL (74-106)
[2023-01-19] MEDS: Mirabegron 50 MG TAB.ER.24H PO (13:03)
[2023-01-19 16:47] LABS: Bedside Glucose 129 mg/dL (74-106)
--- NOTE | 2023-01-19 17:58 | NURSING ---
Spouse in room with pt and stated she does not want to pt to have any more PO intake as she was unaware of the risks. pt did not disagree with spouse. This nurse informed spouse that she would inform ST and staff. Also educated on team meeting tomorrow morning at 8am.
[2023-01-19 21:28] VITALS: BP 131/79; PULSE 85; RESP 14; TEMP 37.1; O2SAT 100
[2023-01-19 21:53] LABS: Bedside Glucose 74 mg/dL (74-106)
[2023-01-19 22:29] VITALS: O2SAT 100
[2023-01-20] MEDS: Lansoprazole 15 MG Capsule.DR 30 MG GT ×2 (05:06→17:14)
[2023-01-20] MEDS: Menthol/Lanolin/Calamine/Znox 113 GM Tube 1 APPLIC TOPICAL ×3 (05:06→19:41)
[2023-01-20 06:00] VITALS: BMI 17.6
[2023-01-20 06:53] LABS: Bedside Glucose 74 mg/dL (74-106)
[2023-01-20 08:04] VITALS: BP 148/82; PULSE 67; RESP 16; TEMP 36.7; O2SAT 97
--- NOTE | 2023-01-20 08:15 | CASEMGMT ---
Social Work IDT met with patient and for Team meeting. Discussed patient's progress in PT/OT/ST/SN. Educated to Medicare approval of 18 days with EDC 02/01. Pt has new peg and is a taylor lift. Broached topic of alternative DC plan and inquired about pt's goals for life. Pt voiced wanting to get back to where he was [functionally]. would like to see how pt progresses as well, but does appear realistic to unknown circumstances of pt's needs at DC. SW inquired about 's comfort level with the taylor lift. stated if that is what pt needs, she can accommodate that and confirmed one grandson does stay home daily to assist pt/. SW offered ongoing assistance with DC planning. Will continue to follow. Will ReTeam next week. IRMA GeorgeW
--- NOTE | 2023-01-20 09:02 | PN.REHAB_ITS ---
Subjective Subjective Patient seen on IDT rounds. His progression with therapy is slow. We had brief conversation about his Parkinson Disease being a progressive illness, and his goals of care. Patient's goal is to return to previous baseline function prior to hospitalization. We agreed we would continue to work with therapy to look for improvement, but he may need placement prior to going home. Objective Data Objective Data Vital Signs: Vital Signs Temp Pulse Resp BP Pulse Ox O2 Del Method O2 Flow Rate 98.1 F 67 16 148/82 H 97 Room Air 1 01/20/23 08:04 01/20/23 08:04 01/20/23 08:04 01/20/23 08:04 01/20/23 08:04 01/20/23 08:04 01/15/23 22:21 Oxygen Flow Rate (L/min) 1 Oxygen Delivery Method Room Air Weight: 51.1 kg Body Mass Index (BMI) 17.6 Intake & Output: Intake and Output for Last 24 Hours 01/18/23 01/19/23 01/20/23 23:59 23:59 23:59 Intake Total 2300 / 2300 2760 / 2760 200 / 200 Output Total 900 / 900 Balance 1400 / 1400 2760 / 2760 200 / 200 Medical Nutrition Assessment Dietitian: Malnutrition Criteria Met Start: 01/15/23 13:17 Freq: Status: Active Protocol: Document 01/15/23 13:17 AG (Rec: 01/15/23 13:17 AG Desktop) Nutrition Malnutrition Evidence of Malnutrition Exists Yes Malnutrition (severe): Chronic Evidenced By Suboptimal Energy Intake ( Severe),Weight Loss (Severe), Physical Changes (Severe) Clinical Problem Chronic Disease or Condition Related Malnutrition Etiology severe, chronic malnutrition related to inadequate energy intake d/t dysphagia Signs/Symptoms as evidenced by estimated PO intake meeting <75% of estimated energy needs > 3 months, unintentional 18% wt loss x 6 months, Severe muscle wasting/fat loss evident per physical exam in orbital, clavicle, acromion, and temporal areas, BMI 17.6 Status Active Problem Recommendation Dietitian Recommendations/Changes 1. Regular diet- texture/ consistency (purees/thins) per BISTRO ATTENDANT; anticipate PO diet to be mostly for pleasure, so 100% of estimated energy needs to be met via enteral nutrition. 2. Will continue via PEG- Jevity 1.5 300mL 4x/day w/ 100mL H2O flush before and after each bolus to provide 1800 calories, 76.56 g protein , and 1712mL fluid/day. Noted pt on Sinemet which must be given 30 minutes before meals or 1 hour after meals. Will order Jevity boluses after meal times and at HS. 3. Daily wts. 4. Will monitor wound assessments and add Romain BID via PEG as indicated. Lab / Micro Data Attestation: I reviewed the patient's lab results. 01/15/23 05:18 01/15/23 05:18 Labs: Laboratory Results - last 24 hr 01/19/23 12:36: POC Glucose 121 H 01/19/23 16:27: POC Glucose 129 H 01/19/23 21:35: POC Glucose 74 01/20/23 06:35: POC Glucose 74 Micro: Microbiology 01/15/23 17:30 Blood Culture (Wb) - Left Wrist Blood Culture - Preliminary No growth in 48 hours. 01/15/23 17:25 Blood Culture (Wb) - Anticubital Right Blood Culture - Preliminary No growth in 48 hours. 01/15/23 17:15 Urine Catheter - Vincent Urine Culture - Final Staphylococcus aureus Indicators for Scoring Admitted with or Primary Diagnosis of CVA/Stroke: No Hx of CVA/Stroke: No Modified [place] Score MRS Score at time of Evaluation: 5-Severe disability Physical Exam Const alert General Appearance: cooperative HEENT normocephalic Eyes PERRL and EOMs intact bilaterally Neck supple, no JVD and no carotid bruits Resp normal respiratory effort, normal air movement and clear to auscultation bilaterally Cardio regular rate and regular rhythm GI normal to inspection, nondistended, normoactive bowel sounds, non-tender and non-distended GI Narrative: PEG tube present. Extremity normal capillary refill General Extremity: Negative for edema Skin no rashes or lesions noted General Skin Exam: no breakdown Psych affect normal Appearance: appropriate Assessment & Plan Assessment/Plan (1) Debility: (2) Parkinson disease: QUALIFIERS: Dyskinesia presence: with dyskinesia Fluctuating manifestations: unspecified whether manifestations fluctuate Qualified Code(s): G20.B1 - Parkinson's disease with dyskinesia, without mention of fluctuations (3) S/P percutaneous endoscopic gastrostomy (PEG) tube placement: (4) Muscle spasm: (5) HTN (hypertension): QUALIFIERS: Hypertension type: essential hypertension Qualified Code(s): I10 - Essential (primary) hypertension (6) Esophagitis: (7) Overactive bladder: PLAN: Plan 72 year old male with stage 5 Parkinson Disease admitted to for 3 hours daily rehabilitation, strengthening. * Debility - PT/OT. * Dysphagia - ST. * Pain - Tylenol 650mg q4 prn pain (1-10). * Bowel - Miralax 17gm daily, senna/colace 1 tablet bid, Dulcolax 10mg pr x 1 prn, MOM 30ml po x 1 prn. * Parkinson Disease - Sinemet 25/100mg 3 tablets tid, 1 tablet 2300, Amantadine 100mg daily, Azilect 1mg daily, Spouse to provide order from patient's neurologist to adjust Parkinson medications. * Muscle spasm - Baclofen 5mg bid. * Hypertension - Hydralazine 10mg tid prn. * s/p PEG - Jevity 1.5 300ml tidpc, 300ml qhs. * Esophagitis - Lansoprazole 30mg bid. * Skin irritation - Calmoseptine topical tid, Eucerin topical tid prn. * Tinea Corporis - Nystatin powder topical bid. * Overactive bladder - Myrbetriq 50mg daily, Tolterodine 4mg daily, urine culture pending. Capacity Capacity Assessment Tool Can the patient make a choice & communicate that choice?: Yes Can the patient understand benefits, risks and alternatives?: Yes Can the patient make a logical, rational choice?: Yes Is the choice the patient makes consistent w/ their values?: Yes Is there an impending, emergent risk to the patient?: No Does the patient have an Advance Directive?: No Is there a Surrogate Available?: Yes i.e. HCPOA: Yes i.e. close relative (spouse, child, parent, sibling)?: Yes
[2023-01-20] MEDS: Tolterodine Tartrate 4 MG CAP.SA PO (10:06)
[2023-01-20] MEDS: Polyethylene Glycol 3350 17 GM PACKET GT (10:06)
[2023-01-20] MEDS: Amantadine 100 MG Capsule GT (10:06)
[2023-01-20] MEDS: Baclofen 10 MG Tablet 5 MG GT ×2 (10:06→19:39)
[2023-01-20] MEDS: Doxycycline 100 MG CAPSULE GT ×2 (10:06→19:40)
[2023-01-20] MEDS: Carbidopa/Levodopa 25/100 Tablet GT ×4 (10:07→19:39)
[2023-01-20] MEDS: Jevity 1.5. 1,000 ML Bottle 300 ML GT ×4 (10:10→19:43)
[2023-01-20] MEDS: Senna/Docusate Sodium 1 Tablet GT ×2 (10:29→19:39)
[2023-01-20] MEDS: Nystatin Powder 15gm Bottle 1 APPLIC TOPICAL ×2 (10:29→19:40)
[2023-01-20 12:05] LABS: Bedside Glucose 115 mg/dL (74-106)
[2023-01-20] MEDS: Mirabegron 50 MG TAB.ER.24H PO (14:05)
[2023-01-20 16:27] LABS: Bedside Glucose 79 mg/dL (74-106)
[2023-01-20 21:53] LABS: Bedside Glucose 126 mg/dL (74-106)
[2023-01-20 22:00] VITALS: BP 132/77; PULSE 90; RESP 20; TEMP 36.7; O2SAT 97
[2023-01-21] MEDS: Lansoprazole 15 MG Capsule.DR 30 MG GT ×2 (05:47→15:44)
[2023-01-21] MEDS: Menthol/Lanolin/Calamine/Znox 113 GM Tube 1 APPLIC TOPICAL ×3 (05:48→21:22)
[2023-01-21 06:00] VITALS: BMI 17.8
[2023-01-21 07:05] LABS: Bedside Glucose 87 mg/dL (74-106)
--- NOTE | 2023-01-21 08:38 | PN.REHAB_ITS ---
Subjective Subjective Patient seen, examined. He has no new complaints. He is watching TV, sipping thin liquids. Objective Data Objective Data Vital Signs: Vital Signs Temp Pulse Resp BP Pulse Ox O2 Del Method O2 Flow Rate 98.0 F 90 20 H 132/77 H 97 Room Air 1 01/20/23 22:00 01/20/23 22:00 01/20/23 22:00 01/20/23 22:00 01/20/23 22:00 01/20/23 22:00 01/15/23 22:21 Oxygen Flow Rate (L/min) 1 Oxygen Delivery Method Room Air Weight: 51.71 kg Body Mass Index (BMI) 17.8 Intake & Output: Intake and Output for Last 24 Hours 01/19/23 01/20/23 01/21/23 23:59 23:59 23:59 Intake Total 2760 / 2760 1920 / 2280 360 / 360 Balance 2760 / 2760 1920 / 2280 360 / 360 Medical Nutrition Assessment Dietitian: Malnutrition Criteria Met Start: 01/15/23 13:17 Freq: Status: Active Protocol: Document 01/15/23 13:17 AG (Rec: 01/15/23 13:17 AG Desktop) Nutrition Malnutrition Evidence of Malnutrition Exists Yes Malnutrition (severe): Chronic Evidenced By Suboptimal Energy Intake ( Severe),Weight Loss (Severe), Physical Changes (Severe) Clinical Problem Chronic Disease or Condition Related Malnutrition Etiology severe, chronic malnutrition related to inadequate energy intake d/t dysphagia Signs/Symptoms as evidenced by estimated PO intake meeting <75% of estimated energy needs > 3 months, unintentional 18% wt loss x 6 months, Severe muscle wasting/fat loss evident per physical exam in orbital, clavicle, acromion, and temporal areas, BMI 17.6 Status Active Problem Recommendation Dietitian Recommendations/Changes 1. Regular diet- texture/ consistency (purees/thins) per ETHANOL MAINTENANCE MECHANIC; anticipate PO diet to be mostly for pleasure, so 100% of estimated energy needs to be met via enteral nutrition. 2. Will continue via PEG- Jevity 1.5 300mL 4x/day w/ 100mL H2O flush before and after each bolus to provide 1800 calories, 76.56 g protein , and 1712mL fluid/day. Noted pt on Sinemet which must be given 30 minutes before meals or 1 hour after meals. Will order Jevity boluses after meal times and at HS. 3. Daily wts. 4. Will monitor wound assessments and add Romain BID via PEG as indicated. Lab / Micro Data Attestation: I reviewed the patient's lab results. 01/15/23 05:18 01/15/23 05:18 Labs: Laboratory Results - last 24 hr 01/20/23 11:46: POC Glucose 115 H 01/20/23 16:08: POC Glucose 79 01/20/23 21:35: POC Glucose 126 H 01/21/23 06:48: POC Glucose 87 Micro: Microbiology 01/15/23 17:25 Blood Culture (Wb) - Anticubital Right Blood Culture - Final No growth in 5 days. 01/15/23 17:30 Blood Culture (Wb) - Left Wrist Blood Culture - Final No growth in 5 days. 01/15/23 17:15 Urine Catheter - Vincent Urine Culture - Final Staphylococcus aureus Indicators for Scoring Admitted with or Primary Diagnosis of CVA/Stroke: No Hx of CVA/Stroke: No Modified Shameka Score MRS Score at time of Evaluation: 5-Severe disability Physical Exam Const alert General Appearance: cooperative HEENT normocephalic Eyes PERRL and EOMs intact bilaterally Neck supple, no JVD and no carotid bruits Resp normal respiratory effort, normal air movement and clear to auscultation bilaterally Cardio regular rate and regular rhythm GI normal to inspection, nondistended, normoactive bowel sounds, non-tender and non-distended GI Narrative: PEG tube present. Extremity normal capillary refill General Extremity: Negative for edema Skin no rashes or lesions noted General Skin Exam: no breakdown Psych affect normal Appearance: appropriate Assessment & Plan Assessment/Plan (1) Debility: (2) Parkinson disease: QUALIFIERS: Dyskinesia presence: with dyskinesia Fluctuating manifestations: unspecified whether manifestations fluctuate Qualified Code(s): G20.B1 - Parkinson's disease with dyskinesia, without mention of fluctuations (3) S/P percutaneous endoscopic gastrostomy (PEG) tube placement: (4) Muscle spasm: (5) HTN (hypertension): QUALIFIERS: Hypertension type: essential hypertension Qualified Code(s): I10 - Essential (primary) hypertension (6) Esophagitis: (7) Overactive bladder: PLAN: Plan 72 year old male with stage 5 Parkinson Disease admitted to for 3 hours daily rehabilitation, strengthening. * Debility - PT/OT. * Dysphagia - ST. * Pain - Tylenol 650mg q4 prn pain (1-10). * Bowel - Miralax 17gm daily, senna/colace 1 tablet bid, Dulcolax 10mg pr x 1 prn, MOM 30ml po x 1 prn. * Parkinson Disease - Sinemet 25/100mg 3 tablets tid, 1 tablet 2300, Amantadine 100mg daily, Azilect 1mg daily, Spouse to provide order from patient's neurologist to adjust Parkinson medications. * Muscle spasm - Baclofen 5mg bid. * Hypertension - Hydralazine 10mg tid prn. * s/p PEG - Jevity 1.5 300ml tidpc, 300ml qhs, allowed to drink thin liquids. * Esophagitis - Lansoprazole 30mg bid. * Skin irritation - Calmoseptine topical tid, Eucerin topical tid prn. * Tinea Corporis - Nystatin powder topical bid. * Overactive bladder - Myrbetriq 50mg daily, Tolterodine 4mg daily. * Urinary tract infection - Staph, Doxycycline 100mg bid thru 01/24/2023.
[2023-01-21] MEDS: Carbidopa/Levodopa 25/100 Tablet GT ×4 (09:04→21:21)
[2023-01-21 10:00] VITALS: BP 152/88; PULSE 74; RESP 18; TEMP 36.6; O2SAT 99
[2023-01-21] MEDS: Jevity 1.5. 1,000 ML Bottle 300 ML GT ×4 (10:04→21:23)
[2023-01-21] MEDS: Tolterodine Tartrate 4 MG CAP.SA PO (10:04)
[2023-01-21] MEDS: Baclofen 10 MG Tablet 5 MG GT ×2 (10:05→21:21)
[2023-01-21] MEDS: Doxycycline 100 MG CAPSULE GT ×2 (10:05→21:20)
[2023-01-21] MEDS: Amantadine 100 MG Capsule GT (10:05)
[2023-01-21] MEDS: Senna/Docusate Sodium 1 Tablet GT (10:05)
[2023-01-21] MEDS: Nystatin Powder 15gm Bottle 1 APPLIC TOPICAL ×2 (10:08→21:22)
[2023-01-21] MEDS: Polyethylene Glycol 3350 17 GM PACKET GT (10:08)
[2023-01-21 12:27] LABS: Bedside Glucose 115 mg/dL (74-106)
--- NOTE | 2023-01-21 14:00 | WOUNDNOTE ---
Pt is currently working with speech therapy. will monitor skin. no pressing needs noted at this time.
[2023-01-21] MEDS: Mirabegron 50 MG TAB.ER.24H PO (14:27)
[2023-01-21 16:25] LABS: Bedside Glucose 169 mg/dL (74-106)
[2023-01-21 20:19] VITALS: BP 139/76; PULSE 79; RESP 16; TEMP 36.8; O2SAT 98
[2023-01-21 22:41] LABS: Bedside Glucose 160 mg/dL (74-106)
[2023-01-22 05:38] VITALS: BMI 18.2
[2023-01-22 05:39] VITALS: BMI 18.2
[2023-01-22 06:22] LABS: Bedside Glucose 87 mg/dL (74-106)
[2023-01-22] MEDS: Lansoprazole 15 MG Capsule.DR 30 MG GT ×2 (06:41→17:23)
[2023-01-22] MEDS: Menthol/Lanolin/Calamine/Znox 113 GM Tube 1 APPLIC TOPICAL ×3 (06:41→20:29)
[2023-01-22] MEDS: Tolterodine Tartrate 4 MG CAP.SA PO (08:25)
[2023-01-22] MEDS: Amantadine 100 MG Capsule GT (08:25)
[2023-01-22] MEDS: Doxycycline 100 MG CAPSULE GT ×2 (08:25→20:29)
[2023-01-22] MEDS: Baclofen 10 MG Tablet 5 MG GT ×2 (08:25→20:30)
[2023-01-22] MEDS: Carbidopa/Levodopa 25/100 Tablet GT ×4 (08:25→23:41)
[2023-01-22] MEDS: Nystatin Powder 15gm Bottle 1 APPLIC TOPICAL ×2 (08:38→20:29)
[2023-01-22 08:57] VITALS: BP 141/80; PULSE 67; RESP 18; TEMP 36.8; O2SAT 95
[2023-01-22] MEDS: Jevity 1.5. 1,000 ML Bottle 300 ML GT ×4 (09:03→21:08)
--- NOTE | 2023-01-22 10:07 | PN.REHAB_ITS ---
Subjective Subjective Patient was admitted for daily rehab following a hospital stay for progressive weakness in the setting of Parkinson's disease, dysphagia and esophagitis. No events overnight. The patient reports he has been working with therapy and feels that he is slowly progressing. He denies any pain. He is being maintained on a thin liquid/pureed diet and his tube feeds. He does feel that he is still hungry after his feeds, however. He is motivated to try chocolate which speech therapy states they will work on. He is moving his bowels without difficulty. He has no questions or concerns at this time. Objective Data Objective Data Vital Signs: Vital Signs Temp Pulse Resp BP Pulse Ox O2 Del Method O2 Flow Rate 98.2 F 67 18 141/80 H 95 Room Air 1 01/22/23 08:57 01/22/23 08:57 01/22/23 08:57 01/22/23 08:57 01/22/23 08:57 01/22/23 08:57 01/15/23 22:21 Oxygen Flow Rate (L/min) 1 Oxygen Delivery Method Room Air Weight: 116 lb 9.992 oz Body Mass Index (BMI) 18.2 Intake & Output: Intake and Output for Last 24 Hours 01/20/23 01/21/23 01/22/23 23:59 23:59 23:59 Intake Total 1920 / 2280 2240 / 2240 Balance 1920 / 2280 2240 / 2240 Medical Nutrition Assessment Dietitian: Malnutrition Criteria Met Start: 01/15/23 13:17 Freq: Status: Active Protocol: Document 01/15/23 13:17 AG (Rec: 01/15/23 13:17 AG Desktop) Nutrition Malnutrition Evidence of Malnutrition Exists Yes Malnutrition (severe): Chronic Evidenced By Suboptimal Energy Intake ( Severe),Weight Loss (Severe), Physical Changes (Severe) Clinical Problem Chronic Disease or Condition Related Malnutrition Etiology severe, chronic malnutrition related to inadequate energy intake d/t dysphagia Signs/Symptoms as evidenced by estimated PO intake meeting <75% of estimated energy needs > 3 months, unintentional 18% wt loss x 6 months, Severe muscle wasting/fat loss evident per physical exam in orbital, clavicle, acromion, and temporal areas, BMI 17.6 Status Active Problem Recommendation Dietitian Recommendations/Changes 1. Regular diet- texture/ consistency (purees/thins) per CAR REFINISHER; anticipate PO diet to be mostly for pleasure, so 100% of estimated energy needs to be met via enteral nutrition. 2. Will continue via PEG- Jevity 1.5 300mL 4x/day w/ 100mL H2O flush before and after each bolus to provide 1800 calories, 76.56 g protein , and 1712mL fluid/day. Noted pt on Sinemet which must be given 30 minutes before meals or 1 hour after meals. Will order Jevity boluses after meal times and at HS. 3. Daily wts. 4. Will monitor wound assessments and add Romain BID via PEG as indicated. Lab / Micro Data Attestation: I reviewed the patient's lab results. 01/15/23 05:18 01/15/23 05:18 Labs: Laboratory Results - last 24 hr 01/21/23 12:07: POC Glucose 115 H 01/21/23 16:07: POC Glucose 169 H 01/21/23 22:22: POC Glucose 160 H 01/22/23 06:04: POC Glucose 87 Micro: Microbiology 01/15/23 17:25 Blood Culture (Wb) - Anticubital Right Blood Culture - Final No growth in 5 days. 01/15/23 17:30 Blood Culture (Wb) - Left Wrist Blood Culture - Final No growth in 5 days. 01/15/23 17:15 Urine Catheter - Vincent Urine Culture - Final Staphylococcus aureus Indicators for Scoring Admitted with or Primary Diagnosis of CVA/Stroke: No Hx of CVA/Stroke: No Modified [place] Score MRS Score at time of Evaluation: 5-Severe disability Physical Exam Const alert, oriented x3 and no apparent distress Constitutional Narrative: Emaciated, speech is louder and more comprehensible Sitting up in the chair, working with therapy General Appearance: cooperative; Negative for in distress, ill appearing or diaphoretic Orientation / Consciousness: awake, oriented to person, oriented to place and oriented to time Exam Limitations: Negative for altered mental status HEENT normocephalic, head/scalp atraumatic, oropharynx normal and dentition normal Head and Scalp: normocephalic and atraumatic Face and Sinus: normal facial exam Mouth: dry mucous membranes Eyes PERRL General Eye: normal appearance of both eyes Conjunctiva: conjunctiva normal Sclera: sclera normal Pupil: PERRL Chest inspection of chest normal Chest: abnormal inspection of the chest and symmetrical chest wall rise Resp normal respiratory effort, normal air movement, no use of accessory muscles and clear to auscultation bilaterally Effort and Inspection: able to speak in complete sentences and symmetric chest movement; Negative for respiratory distress or audible wheezes Auscultation: clear to auscultation bilaterally Cardio regular rate, regular rhythm and no murmurs Cardio Narrative: Distant heart sounds Rate: regular rate Rhythm: regular rhythm Heart Sounds: Negative for murmur GI normal to inspection, nondistended, normoactive bowel sounds, soft to palpation, non-tender and non-distended GI Narrative: Peg tube in place. Dressing is clean, dry and intact Auscultation: normoactive bowel sounds Palpation: soft; Negative for tender or guarding Extremity normal to inspection General Extremity: Negative for edema Skin no rashes or lesions noted Lesions: no lesions Rashes: no rashes Wound Narrative: Dressing in place over right elbow Neuro oriented x3 Sensorium / Orientation: awake, alert, oriented to person, oriented to place and oriented to time Speech: speech normal Psych mental status grossly normal, cooperative, affect normal and speech normal Appearance: grossly normal Attitude: calm Assessment & Plan Assessment/Plan (1) Debility: PLAN: Will continue with PT/OT and follow up on findings and recommendations. D/C planned for 02/01. Unclear yet if patient will return home or need additional placement for continued therapy. Continue with PRN pain management, bowel regimen and fall precautions. (2) Parkinson disease: QUALIFIERS: Dyskinesia presence: with dyskinesia Fluctuating manifestations: unspecified whether manifestations fluctuate Qualified Code(s): G20.B1 - Parkinson's disease with dyskinesia, without mention of fluctuations PLAN: As above. Will continue home medications. Will continue baclofen to help with muscle spasms and contractility. Patient denies any pain associated with these. (3) Oropharyngeal dysphagia: PLAN: PEG tube in place. Speech therapy following. His diet has been changed to full thin liquids due to concern of aspiration. Will continue with isosource 1.5 [id number] every 4 hours, however, will touch base with claims support specialist for possible adjustment. Will also continue with H20 50cc before and after feeds. (4) S/P percutaneous endoscopic gastrostomy (PEG) tube placement: PLAN: As above. Patient is currently tolerating tube feeds well. (5) Muscle spasm: PLAN: As above. Continue with baclofen. Will continue to monitor and adjust as needed. (6) Severe protein-calorie malnutrition: PLAN: As above. (7) Esophagitis: PLAN: Will continue protonix 40mg BID (8) Overactive bladder: PLAN: Continue home medications including myrbetriq and solifenacin. (9) HTN (hypertension): QUALIFIERS: Hypertension type: essential hypertension Qualified Code(s): I10 - Essential (primary) hypertension PLAN: Blood pressure slightly elevated currently. Patient hasn't been on medications following weight loss. Will continue with PRN hydralazine and monitor. (10) BPH (benign prostatic hyperplasia): QUALIFIERS: Lower urinary tract symptom presence: symptoms absent Qualified Code(s): N40.0 - Benign prostatic hyperplasia without lower urinary tract symptoms PLAN: Stable. No current symptoms. (11) DMII (diabetes mellitus, type 2): QUALIFIERS: Diabetes mellitus complication status: without complication Diabetes mellitus [facility] insulin use: without [facility] use Qualified Code(s): E11.9 - Type 2 diabetes mellitus without complications PLAN: Patient hasn't been on diabetic medications since his weight loss. Will continue with glucose checks and add SSI as needed. Last A1c was out of diabetic range at 5.6. Glucose was 87 this morning. (12) UTI (urinary tract infection): QUALIFIERS: Hematuria presence: without hematuria Urinary tract infection type: acute cystitis Qualified Code(s): N30.00 - Acute cystitis without hematuria PLAN: Patient's urine culture was growing staph aureus. Will complete treatment with doxycycline as ordered. No current complaints. Charges/Coding Visit Charges Inpatient E&M: 41462 Subs Hosp L2
--- NOTE | 2023-01-22 12:24 | NURSING ---
p/Dr Hutchins request this nurse spoke to brand ambassador ROBIN in regards to increasing pt's tube feed amount d/t pt stating he feels hungry after receiving feeds.
[2023-01-22] MEDS: Mirabegron 50 MG TAB.ER.24H PO (12:45)
[2023-01-22 19:13] VITALS: BP 106/65; PULSE 82; RESP 17; TEMP 36.6; O2SAT 96
[2023-01-22 19:14] LABS: Bedside Glucose 108 mg/dL (74-106)
[2023-01-22] MEDS: Acetaminophen 650 MG/20 ML UDC GT (20:28)
[2023-01-23 00:38] LABS: Bedside Glucose 125 mg/dL (74-106)
[2023-01-23] MEDS: Acetaminophen 650 MG/20 ML UDC GT (03:57)
[2023-01-23] MEDS: Menthol/Lanolin/Calamine/Znox 113 GM Tube 1 APPLIC TOPICAL ×3 (04:05→21:07)
[2023-01-23] MEDS: Lansoprazole 15 MG Capsule.DR 30 MG GT ×2 (05:09→17:08)
[2023-01-23] MEDS: Jevity 1.5. 1,000 ML Bottle 200 ML GT (05:10)
[2023-01-23 05:34] LABS: Bedside Glucose 150 mg/dL (74-106)
[2023-01-23 06:00] VITALS: BMI 18.3
[2023-01-23] MEDS: Carbidopa/Levodopa 25/100 Tablet GT ×4 (08:38→22:56)
[2023-01-23] MEDS: Tolterodine Tartrate 4 MG CAP.SA PO (08:39)
[2023-01-23] MEDS: Nystatin Powder 15gm Bottle 1 APPLIC TOPICAL ×2 (08:39→21:07)
[2023-01-23] MEDS: Amantadine 100 MG Capsule GT (08:39)
[2023-01-23] MEDS: Doxycycline 100 MG CAPSULE GT ×2 (08:39→21:07)
[2023-01-23] MEDS: Baclofen 10 MG Tablet 5 MG GT ×2 (08:39→21:07)
[2023-01-23] MEDS: Jevity 1.5. 1,000 ML Bottle 300 ML GT ×4 (08:40→21:07)
[2023-01-23 09:46] VITALS: BP 158/87; PULSE 69; RESP 16; TEMP 36.3; O2SAT 99
[2023-01-23 13:11] LABS: Bedside Glucose 96 mg/dL (74-106)
[2023-01-23] MEDS: Mirabegron 50 MG TAB.ER.24H PO (13:26)
--- NOTE | 2023-01-23 14:09 | CHAPLAIN ---
Type of Pastoral Visit ___ Initial Visit _x__ Follow-up Visit ___ On-call Visit ___ General Patient Visit ___ Spiritual Assessment ___ Family Conference ___ Bereavement ___ Rapid Response ___ Code Blue ___ Other (describe below) Pastoral Care Referral From _x__ Patient ___ Family ___ Nurse ___ Physician ___ Production Sorter ___ Dyer Assistant ___ Other (describe below) Sacrament/Intervention _x__ Active listening ___ Anointing ___ Rastafari ___ Bereavement ___ Communion ___ [place] exploration ___ _x__ Life review ___ Prayer ___ Reconciliation ___ Sacrament of Sick _x__ Supportive presence ___ Wedding ___ Other (describe below) Pastoral Comments knowing patient is of the [employer] [place], this nurse practitioner physicians assistant stopped to visit with him to wish a Happy Hanukkah which was received well by patient; 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
[2023-01-23 14:54] VITALS: BP 148/96; PULSE 86
[2023-01-23] MEDS: hydrALAZINE 10 MG Tablet GT ×2 (14:54→17:08)
[2023-01-23 17:08] VITALS: BP 155/95; PULSE 80
[2023-01-23 21:18] VITALS: BP 135/70; RESP 18; TEMP 36.6; O2SAT 100
[2023-01-23 23:28] LABS: Bedside Glucose 94 mg/dL (74-106)
[2023-01-24] MEDS: Menthol/Lanolin/Calamine/Znox 113 GM Tube 1 APPLIC TOPICAL ×3 (05:19→21:45)
[2023-01-24] MEDS: Lansoprazole 15 MG Capsule.DR 30 MG GT ×2 (05:19→17:03)
[2023-01-24 06:00] VITALS: BMI 18.9
[2023-01-24 06:41] LABS: Bedside Glucose 95 mg/dL (74-106)
[2023-01-24 07:47] LABS: Bedside Glucose 114 mg/dL (74-106)
[2023-01-24 07:47] LABS: Bedside Glucose 122 mg/dL (74-106)
[2023-01-24] MEDS: Carbidopa/Levodopa 25/100 Tablet GT ×4 (07:51→22:48)
[2023-01-24] MEDS: Acetaminophen 650 MG/20 ML UDC GT ×2 (07:52→21:46)
[2023-01-24 08:41] VITALS: BP 160/86; PULSE 67; RESP 16; TEMP 36.4; O2SAT 100
[2023-01-24] MEDS: Jevity 1.5. 1,000 ML Bottle 300 ML GT ×4 (09:03→21:45)
[2023-01-24] MEDS: Doxycycline 100 MG CAPSULE GT ×2 (10:12→21:44)
[2023-01-24] MEDS: Baclofen 10 MG Tablet 5 MG GT ×2 (10:12→21:45)
[2023-01-24] MEDS: Tolterodine Tartrate 4 MG CAP.SA PO (10:12)
[2023-01-24] MEDS: Amantadine 100 MG Capsule GT (10:12)
[2023-01-24] MEDS: Jevity 1.5. 1,000 ML Bottle 200 ML GT (10:21)
[2023-01-24] MEDS: Nystatin Powder 15gm Bottle 1 APPLIC TOPICAL ×2 (10:21→21:44)
[2023-01-24 12:28] LABS: Bedside Glucose 102 mg/dL (74-106)
[2023-01-24] MEDS: Mirabegron 50 MG TAB.ER.24H PO (14:12)
[2023-01-24 17:35] LABS: Bedside Glucose 107 mg/dL (74-106)
[2023-01-24 21:40] VITALS: BP 138/86; PULSE 77; RESP 17; TEMP 37.1; O2SAT 98
[2023-01-24 21:57] LABS: Bedside Glucose 103 mg/dL (74-106)
[2023-01-25] MEDS: Jevity 1.5. 1,000 ML Bottle 200 ML GT (05:57)
[2023-01-25] MEDS: Lansoprazole 15 MG Capsule.DR 30 MG GT ×2 (05:57→16:19)
[2023-01-25 06:19] VITALS: BMI 18.3
[2023-01-25] MEDS: Menthol/Lanolin/Calamine/Znox 113 GM Tube 1 APPLIC TOPICAL ×3 (07:05→23:08)
[2023-01-25 07:42] LABS: Bedside Glucose 122 mg/dL (74-106)
[2023-01-25] MEDS: Carbidopa/Levodopa 25/100 Tablet GT ×4 (08:13→23:06)
[2023-01-25] MEDS: Acetaminophen 650 MG/20 ML UDC GT (09:53)
[2023-01-25] MEDS: Amantadine 100 MG Capsule GT (09:54)
[2023-01-25] MEDS: Baclofen 10 MG Tablet 5 MG GT ×2 (09:54→23:06)
[2023-01-25] MEDS: Tolterodine Tartrate 4 MG CAP.SA PO (09:55)
[2023-01-25] MEDS: Jevity 1.5. 1,000 ML Bottle 300 ML GT ×4 (09:58→23:15)
[2023-01-25 10:00] VITALS: BP 147/83; PULSE 69; RESP 16; TEMP 36.7; O2SAT 98
[2023-01-25] MEDS: Nystatin Powder 15gm Bottle 1 APPLIC TOPICAL ×2 (10:04→23:09)
[2023-01-25 12:02] LABS: Bedside Glucose 134 mg/dL (74-106)
[2023-01-25] MEDS: Mirabegron 50 MG TAB.ER.24H PO (13:52)
[2023-01-25 16:34] LABS: Bedside Glucose 238 mg/dL (74-106)
[2023-01-25 22:00] VITALS: BP 131/68; PULSE 69; RESP 18; TEMP 36.9; O2SAT 99
[2023-01-25 23:55] LABS: Bedside Glucose 114 mg/dL (74-106)
[2023-01-26] MEDS: Lansoprazole 15 MG Capsule.DR 30 MG GT ×2 (05:56→16:52)
[2023-01-26] MEDS: Jevity 1.5. 1,000 ML Bottle 200 ML GT (05:57)
[2023-01-26] MEDS: Menthol/Lanolin/Calamine/Znox 113 GM Tube 1 APPLIC TOPICAL ×3 (05:57→22:01)
[2023-01-26 06:00] VITALS: BMI 18.1
[2023-01-26 07:37] LABS: Bedside Glucose 85 mg/dL (74-106)
[2023-01-26] MEDS: Amantadine 100 MG Capsule GT (09:26)
[2023-01-26] MEDS: Baclofen 10 MG Tablet 5 MG GT ×2 (09:26→22:01)
[2023-01-26] MEDS: Carbidopa/Levodopa 25/100 Tablet GT ×4 (09:26→22:02)
[2023-01-26] MEDS: Tolterodine Tartrate 4 MG CAP.SA PO (09:27)
[2023-01-26] MEDS: Acetaminophen 650 MG/20 ML UDC GT (09:27)
[2023-01-26] MEDS: Jevity 1.5. 1,000 ML Bottle 300 ML GT ×4 (09:35→22:03)
[2023-01-26 09:37] VITALS: BP 142/82; PULSE 77; RESP 16; TEMP 37.2; O2SAT 100
[2023-01-26 12:04] LABS: Bedside Glucose 150 mg/dL (74-106)
[2023-01-26] MEDS: Nystatin Powder 15gm Bottle 1 APPLIC TOPICAL ×2 (12:29→22:02)
[2023-01-26] MEDS: Mirabegron 50 MG TAB.ER.24H PO (13:51)
[2023-01-26 17:07] LABS: Bedside Glucose 116 mg/dL (74-106)
[2023-01-26 22:00] VITALS: BP 99/48; PULSE 73; RESP 18; TEMP 37.1; O2SAT 98
[2023-01-26 23:27] LABS: Bedside Glucose 136 mg/dL (74-106)
[2023-01-27] MEDS: Lansoprazole 15 MG Capsule.DR 30 MG GT ×2 (06:25→16:18)
[2023-01-27] MEDS: Menthol/Lanolin/Calamine/Znox 113 GM Tube 1 APPLIC TOPICAL ×3 (06:25→22:20)
[2023-01-27] MEDS: Jevity 1.5. 1,000 ML Bottle 200 ML GT (06:31)
[2023-01-27 07:38] VITALS: BP 148/89; PULSE 74; RESP 20; TEMP 37.2; O2SAT 95
[2023-01-27 07:38] LABS: Bedside Glucose 98 mg/dL (74-106)
[2023-01-27 07:52] LABS: Bedside Glucose 147 mg/dL (74-106)
[2023-01-27 08:07] VITALS: BMI 18.9
--- NOTE | 2023-01-27 08:37 | CASEMGMT ---
Social Work IDT met with patient and for Team meeting. Discussed patient's progress in PT/OT/ST/SN. Educated to Medicare DC date of 02/01. has scheduled therapy training for 01/29 at 1230. and grandson will determine if she can care for pt at home, but would prefer pt be home not a SNF. 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 Offered hospital bed and other DME needs at DC, but denied stating she has everything for pt. SW inquired about preference for skilled HHC. stated pt used [facility] prior. Pt also has new peg and this worker will assist in coordinating supplies. Pt is unable to transfer in and out of a car. SW to coordinate transport. SW will continue to follow to finalize DC plans. IRMA GeorgeW
[2023-01-27] MEDS: Carbidopa/Levodopa 25/100 Tablet GT ×2 (09:29→12:35)
[2023-01-27] MEDS: Amantadine 100 MG Capsule GT (09:29)
[2023-01-27] MEDS: Tolterodine Tartrate 4 MG CAP.SA PO (09:29)
[2023-01-27] MEDS: Baclofen 10 MG Tablet 5 MG GT ×2 (09:29→22:21)
[2023-01-27] MEDS: Jevity 1.5. 1,000 ML Bottle 300 ML GT ×4 (09:29→22:21)
[2023-01-27] MEDS: Nystatin Powder 15gm Bottle 1 APPLIC TOPICAL ×2 (09:31→22:22)
--- NOTE | 2023-01-27 10:06 | EX.PCM.PN.RE ---
Subjective Subjective Patient was admitted for daily rehab following a hospital stay for progressive weakness in the setting of Parkinson's disease, dysphagia and esophagitis. No events overnight, although he reports he didn't sleep well last night. He was seen today on TEAM rounds. Per therapy, the patient continues to require max assist with dressing and help with bathing. He is able to do his own oral care. His feet can slide out so he does require somebody to help block his feet with standing. He is able to walk about 10 feet with the parallel bars. He has been taking tylenol for leg pains which does help. Family training is scheduled for Friday with a goal of discharge home with [facility] and family assistance on 02/01. The patient reports that he is doing well. He denies any pain currently. He is being maintained on a thin liquid/pureed diet and his tube feeds. He hasn't been feeling hungry like he was last week, although he does wish he could have pizza. He is moving his bowels and urinating without difficulty. He has no questions or concerns at this time. Objective Data Objective Data Vital Signs: Vital Signs Temp Pulse Resp BP Pulse Ox O2 Del Method O2 Flow Rate 99 F 74 20 H 148/89 H 95 Room Air 1 01/27/23 07:38 01/27/23 07:38 01/27/23 07:38 01/27/23 07:38 01/27/23 07:38 01/27/23 07:38 01/15/23 22:21 Oxygen Flow Rate (L/min) 1 Oxygen Delivery Method Room Air Weight: 116 lb 2.938 oz Body Mass Index (BMI) 18.1 Intake & Output: Intake and Output for Last 24 Hours 01/25/23 01/26/23 01/27/23 23:59 23:59 23:59 Intake Total 2520 / 3020 2960 / 3080 120 / 120 Balance 2520 / 3020 2960 / 3080 120 / 120 Medical Nutrition Assessment Dietitian: Malnutrition Criteria Met Start: 01/15/23 13:17 Freq: Status: Active Protocol: Document 01/22/23 15:20 LO (Rec: 01/22/23 15:20 [id number]) Nutrition Malnutrition Evidence of Malnutrition Exists Yes Malnutrition (severe): Chronic Evidenced By Suboptimal Energy Intake ( Severe),Weight Loss (Severe), Physical Changes (Severe) Clinical Problem Chronic Disease or Condition Related Malnutrition Etiology severe, chronic malnutrition related to inadequate energy intake d/t dysphagia Signs/Symptoms as evidenced by estimated PO intake meeting <75% of estimated energy needs > 3 months, unintentional 18% wt loss x 6 months, Severe muscle wasting/fat loss evident per physical exam in orbital, clavicle, acromion, and temporal areas, BMI 17.6 Status Active Problem Recommendation Dietitian Recommendations/Changes 1. Regular diet- texture/ consistency (purees/thins) per TRAVEL JOURNALIST; anticipate PO diet to be mostly for pleasure, so 100% of estimated energy needs to be met via enteral nutrition. 2. Will continue via PEG- Jevity 1.5 300mL 4x/day w/ 100mL H2O flush before and after each bolus to provide 1800 calories, 76.56 g protein , and 1712mL fluid/day. Noted pt on Sinemet which must be given 30 minutes before meals or 1 hour after meals. Will order Jevity boluses after meal times and at HS. 3. Will add Jevity 1.5 200mL bolus feed at 0600 with 100mL flush before and after each bolus to help with satiety. 3. Daily wts. 4. Will monitor wound assessments and add Romain BID via PEG as indicated. Lab / Micro Data Attestation: I reviewed the patient's lab results. 01/15/23 05:18 01/15/23 05:18 Labs: Laboratory Results - last 24 hr 01/26/23 11:31: POC Glucose 150 H 01/26/23 16:45: POC Glucose 116 H 01/26/23 21:59: POC Glucose 136 H 01/27/23 06:30: POC Glucose 98 01/27/23 07:30: POC Glucose 147 H Micro: Microbiology 01/15/23 17:25 Blood Culture (Wb) - Anticubital Right Blood Culture - Final No growth in 5 days. 01/15/23 17:30 Blood Culture (Wb) - Left Wrist Blood Culture - Final No growth in 5 days. 01/15/23 17:15 Urine Catheter - Vincent Urine Culture - Final Staphylococcus aureus Indicators for Scoring Admitted with or Primary Diagnosis of CVA/Stroke: No Hx of CVA/Stroke: No Modified Charlotte Score MRS Score at time of Evaluation: 5-Severe disability Physical Exam Const alert, oriented x3 and no apparent distress Constitutional Narrative: Emaciated, Laying in bed General Appearance: cooperative; Negative for in distress, ill appearing or diaphoretic Orientation / Consciousness: awake, oriented to person, oriented to place and oriented to time Exam Limitations: Negative for altered mental status HEENT normocephalic, head/scalp atraumatic and dentition normal Head and Scalp: normocephalic and atraumatic Face and Sinus: normal facial exam Eyes General Eye: normal appearance of both eyes Chest inspection of chest normal Chest: symmetrical chest wall rise Resp normal respiratory effort, normal air movement, no use of accessory muscles and clear to auscultation bilaterally Resp Narrative: Anterior auscultation Effort and Inspection: able to speak in complete sentences and symmetric chest movement; Negative for respiratory distress or audible wheezes Auscultation: clear to auscultation bilaterally Cardio regular rate, regular rhythm and no murmurs Cardio Narrative: Distant heart sounds Rate: regular rate Rhythm: regular rhythm Heart Sounds: Negative for murmur GI normal to inspection, nondistended, normoactive bowel sounds, soft to palpation, non-tender and non-distended GI Narrative: Peg tube in place. Dressing is clean, dry and intact Auscultation: normoactive bowel sounds Palpation: soft; Negative for tender or guarding Extremity normal to inspection General Extremity: Negative for edema Skin no rashes or lesions noted Lesions: no lesions Rashes: no rashes Neuro oriented x3 Sensorium / Orientation: awake, alert, oriented to person, oriented to place and oriented to time Speech: speech normal Psych mental status grossly normal, cooperative, affect normal and speech normal Appearance: grossly normal Attitude: calm Assessment & Plan Assessment/Plan (1) Debility: PLAN: Will continue with PT/OT and follow up on findings and recommendations. D/C planned for 02/01 with [facility] and family care. Continue with PRN pain management, bowel regimen and fall precautions. (2) Parkinson disease: QUALIFIERS: Dyskinesia presence: with dyskinesia Fluctuating manifestations: unspecified whether manifestations fluctuate Qualified Code(s): G20.B1 - Parkinson's disease with dyskinesia, without mention of fluctuations PLAN: As above. Will continue home medications. Will continue baclofen to help with muscle spasms and contractility. Patient denies any pain associated with these. (3) Oropharyngeal dysphagia: PLAN: PEG tube in place. Speech therapy following. His diet has been changed to full thin liquids due to concern of aspiration. Will continue with isosource 1.5 [id number]. Will also continue with H20 50cc before and after feeds. Family training this week will include PEG tube care and management. (4) S/P percutaneous endoscopic gastrostomy (PEG) tube placement: PLAN: As above. Patient is currently tolerating tube feeds well. (5) Muscle spasm: PLAN: As above. Continue with baclofen. Will continue to monitor and adjust as needed. (6) Severe protein-calorie malnutrition: PLAN: As above. (7) Esophagitis: PLAN: Will continue protonix 40mg BID (8) Overactive bladder: PLAN: Continue home medications including myrbetriq and solifenacin. (9) HTN (hypertension): QUALIFIERS: Hypertension type: essential hypertension Qualified Code(s): I10 - Essential (primary) hypertension PLAN: Blood pressure slightly elevated currently. Patient hasn't been on medications at home. Will continue with PRN hydralazine and monitor. (10) BPH (benign prostatic hyperplasia): QUALIFIERS: Lower urinary tract symptom presence: symptoms absent Qualified Code(s): N40.0 - Benign prostatic hyperplasia without lower urinary tract symptoms PLAN: Stable. No current symptoms. (11) DMII (diabetes mellitus, type 2): QUALIFIERS: Diabetes mellitus complication status: without complication Diabetes mellitus service center assistant insulin use: without service center assistant use Qualified Code(s): E11.9 - Type 2 diabetes mellitus without complications PLAN: Patient hasn't been on diabetic medications since his weight loss. Will continue with glucose checks and add SSI as needed. Last A1c was out of diabetic range at 5.6. Glucose was 147 this morning. (12) UTI (urinary tract infection): QUALIFIERS: Hematuria presence: without hematuria Urinary tract infection type: acute cystitis Qualified Code(s): N30.00 - Acute cystitis without hematuria PLAN: Resolved. Patient has completed his antibiotic treatment.
[2023-01-27 11:42] LABS: Bedside Glucose 84 mg/dL (74-106)
[2023-01-27] MEDS: Mirabegron 25 MG TAB.ER.24H 50 MG PO (13:19)
[2023-01-27] MEDS: CARBIDOPA/LEVODOPA 1 EACH CAPSULE.ER 4 EACH PO (16:45)
[2023-01-27 17:06] LABS: Bedside Glucose 104 mg/dL (74-106)
[2023-01-27 20:25] VITALS: PULSE 90; O2SAT 96
[2023-01-27 22:00] VITALS: BP 154/92; PULSE 90; RESP 22; TEMP 37.3; O2SAT 96
[2023-01-27] MEDS: CARBIDOPA/LEVODOPA 1 EACH CAPSULE.ER PO (22:21)
[2023-01-27] MEDS: Senna/Docusate Sodium 1 Tablet GT (22:21)
[2023-01-27 23:02] LABS: Bedside Glucose 86 mg/dL (74-106)
[2023-01-28] MEDS: Lansoprazole 15 MG Capsule.DR 30 MG GT ×2 (05:14→17:20)
[2023-01-28] MEDS: Menthol/Lanolin/Calamine/Znox 113 GM Tube 1 APPLIC TOPICAL ×3 (05:14→22:06)
[2023-01-28] MEDS: Jevity 1.5. 1,000 ML Bottle 200 ML GT (05:15)
[2023-01-28 05:36] LABS: Bedside Glucose 68 mg/dL (74-106)
[2023-01-28 05:54] LABS: Bedside Glucose 102 mg/dL (74-106)
[2023-01-28 06:02] LABS: Absolute Lymphocyte Count 1.98 X10^3/uL (0.83-4.51); Absolute Neutrophil Count 5.4 X10^3/uL (2.0-7.7); Basophil# 0.09 X10^3/uL; Eosinophil# 0.22 X10^3/uL; Eosinophils% 2.5 % (0-5); Hematocrit 38.7 % (40-54); Lymphocyte # 1.98 X10^3/ul (0.83-4.51); Lymphocyte % 22.7 % (19-41); Mean Corpuscular Volume 96.8 fL (80-94); Mean Platelet Vol. 11.4 fl (6.2-12.0); Monocyte# 0.96 X10^3/uL; NRBC Flagged by Analyzer 0 % (0-5); Neutrophil # 5.42 X10^3/uL (2.7-7.7); Neutrophil % 62.3 % (47-70); Platelet Count 341 K/mm3 (150-450); RBC Distribution Width CV 17.3 % (11.6-14.6); RBC Distribution Width SD 61.1 fl (35.1-43.9); White Blood Count 8.7 K/mm3 (4.4-11.0)
[2023-01-28 06:31] LABS: ALB/GLOB Ratio 0.7 RATIO (0.9-2.4); AST(SGOT) 23 U/L (15-37); Alanine Aminotransfer ALT/SGPT 8 U/L (16-61); Albumin, Serum 2.6 g/dL (3.2-5.0); Alkaline Phosphatase 87 U/L (45-117); Anion Gap 4 (5-15); BUN 23 mg/dL (7-18); BUN/Creat Ratio 27.5 RATIO (10-20); Calcium,Total 8.6 mg/dL (8.5-10.1); Chloride 103 mmol/L (98-107); Creatinine, Serum 0.84 mg/dL (0.70-1.30); EST Glomerular Filtration Rate 95 mL/min (>60); Est Glom Filt Rate - Afr Amer 116 mL/min (>60); Estimated Creatinine Clearance 59.91 ml/min; Globulin 3.7 g/dL (2.2-4.2); Glucose 74 mg/dL (74-106); Magnesium 2.3 mg/dL (1.6-2.6); Phosphorus 3.7 mg/dL (2.5-4.9); Potassium 4.2 mmol/L (3.5-5.1); Protein, Total 6.3 g/dL (6.4-8.2); Sodium Level 138 mmol/L (136-145)
[2023-01-28 06:39] LABS: Bedside Glucose 127 mg/dL (74-106)
[2023-01-28] MEDS: CARBIDOPA/LEVODOPA 1 EACH CAPSULE.ER 3 EACH PO (08:26)
[2023-01-28 09:27] VITALS: BP 145/80; PULSE 72; RESP 16; TEMP 36.4; O2SAT 99
--- NOTE | 2023-01-28 09:31 | CASEMGMT ---
Social Work Referral sent for peg tube supplies to [facility] via [facility]. MARSHALL Erickson
[2023-01-28] MEDS: Amantadine 100 MG Capsule GT (09:58)
[2023-01-28] MEDS: Baclofen 10 MG Tablet 5 MG GT ×2 (09:59→22:04)
[2023-01-28] MEDS: Jevity 1.5. 1,000 ML Bottle 300 ML GT ×4 (09:59→22:07)
[2023-01-28] MEDS: Tolterodine Tartrate 4 MG CAP.SA PO (09:59)
[2023-01-28] MEDS: Nystatin Powder 15gm Bottle 1 APPLIC TOPICAL ×2 (10:11→22:05)
--- NOTE | 2023-01-28 11:20 | EX.PCM.PN.RE ---
Subjective Subjective Patient was admitted for daily rehab following a hospital stay for progressive weakness in the setting of Parkinson's disease, dysphagia and esophagitis. No events overnight. Family training is scheduled for Friday with a goal of discharge home with [facility] and family assistance on 02/01. The patient reports that he is doing well. He denies any pain currently. He is being maintained on a thin liquid/pureed diet and his tube feeds. He is moving his bowels and urinating without difficulty. He has no questions or concerns at this time. Objective Data Objective Data Vital Signs: Vital Signs Temp Pulse Resp BP Pulse Ox O2 Del Method O2 Flow Rate 97.5 F L 72 16 145/80 H 99 Room Air 1 01/28/23 09:27 01/28/23 09:27 01/28/23 09:27 01/28/23 09:27 01/28/23 09:27 01/28/23 09:27 01/15/23 22:21 Oxygen Flow Rate (L/min) 1 Oxygen Delivery Method Room Air Weight: 121 lb 0.54 oz Body Mass Index (BMI) 18.9 Intake & Output: Intake and Output for Last 24 Hours 01/26/23 01/27/23 01/28/23 23:59 23:59 23:59 Intake Total 2960 / 3080 960 / 1060 340 / 340 Balance 2960 / 3080 960 / 1060 340 / 340 Medical Nutrition Assessment Dietitian: Malnutrition Criteria Met Start: 01/15/23 13:17 Freq: Status: Active Protocol: Document 01/22/23 15:20 (Rec: 01/22/23 15:20 [id number]) Nutrition Malnutrition Evidence of Malnutrition Exists Yes Malnutrition (severe): Chronic Evidenced By Suboptimal Energy Intake ( Severe),Weight Loss (Severe), Physical Changes (Severe) Clinical Problem Chronic Disease or Condition Related Malnutrition Etiology severe, chronic malnutrition related to inadequate energy intake d/t dysphagia Signs/Symptoms as evidenced by estimated PO intake meeting <75% of estimated energy needs > 3 months, unintentional 18% wt loss x 6 months, Severe muscle wasting/fat loss evident per physical exam in orbital, clavicle, acromion, and temporal areas, BMI 17.6 Status Active Problem Recommendation Dietitian Recommendations/Changes 1. Regular diet- texture/ consistency (purees/thins) per ENERGY CONTROL OFFICER; anticipate PO diet to be mostly for pleasure, so 100% of estimated energy needs to be met via enteral nutrition. 2. Will continue via PEG- Jevity 1.5 300mL 4x/day w/ 100mL H2O flush before and after each bolus to provide 1800 calories, 76.56 g protein , and 1712mL fluid/day. Noted pt on Sinemet which must be given 30 minutes before meals or 1 hour after meals. Will order Jevity boluses after meal times and at HS. 3. Will add Jevity 1.5 200mL bolus feed at 0600 with 100mL flush before and after each bolus to help with satiety. 3. Daily wts. 4. Will monitor wound assessments and add Romain BID via PEG as indicated. Lab / Micro Data Attestation: I reviewed the patient's lab results. 01/28/23 05:09 01/28/23 05:09 Labs: Laboratory Results - last 24 hr 01/27/23 11:17: POC Glucose 84 01/27/23 16:17: POC Glucose 104 01/27/23 22:13: POC Glucose 86 01/28/23 05:09: WBC 8.7, RBC 4.00 L, Hgb 12.0 L, Hct 38.7 L, MCV 96.8 H, MCH 30.0, MCHC 31.0 L, RDW Std Deviation 61.1 H, RDW Coeff of Lexii 17.3 H, Plt Count 341, MPV 11.4, Immature Gran % (Auto) 0.500, Neut % (Auto) 62.3, Lymph % (Auto) 22.7, Perkins % (Auto) 11.0 H, Eos % (Auto) 2.5, Baso % (Auto) 1.0, Absolute Neuts (auto) 5.4, Absolute Lymphs (auto) 1.98, Nucleated RBC % 0, Sodium 138, Potassium 4.2, Chloride 103, Carbon Dioxide 31.0, Anion Gap 4 L, BUN 23 H, Creatinine 0.84, Estim Creat Clear Calc 59.91, Est GFR (MDRD) Af Amer 116, Est GFR (MDRD) Non-Af 95, BUN/Creatinine Ratio 27.5 H, Glucose 74, Calcium 8.6, Phosphorus 3.7, Magnesium 2.3, Total Bilirubin 0.40, AST 23, ALT 8 L, Alkaline Phosphatase 87, Total Protein 6.3 L, Albumin 2.6 L, Globulin 3.7, Albumin/Globulin Ratio 0.7 L 01/28/23 05:12: POC Glucose 68 L 01/28/23 05:35: POC Glucose 102 01/28/23 06:20: POC Glucose 127 H Micro: Microbiology 01/15/23 17:25 Blood Culture (Wb) - Anticubital Right Blood Culture - Final No growth in 5 days. 01/15/23 17:30 Blood Culture (Wb) - Left Wrist Blood Culture - Final No growth in 5 days. 01/15/23 17:15 Urine Catheter - Vincent Urine Culture - Final Staphylococcus aureus Indicators for Scoring Admitted with or Primary Diagnosis of CVA/Stroke: No Hx of CVA/Stroke: No Modified Shameka Score MRS Score at time of Evaluation: 5-Severe disability Physical Exam Const alert, oriented x3 and no apparent distress Constitutional Narrative: Emaciated, Sitting up in the wheelchair, working with therapy General Appearance: cooperative; Negative for in distress, ill appearing or diaphoretic Orientation / Consciousness: awake, oriented to person, oriented to place and oriented to time Exam Limitations: Negative for altered mental status HEENT normocephalic, head/scalp atraumatic and dentition normal Head and Scalp: normocephalic and atraumatic Face and Sinus: normal facial exam Eyes General Eye: normal appearance of both eyes Chest inspection of chest normal Chest: symmetrical chest wall rise Resp normal respiratory effort, normal air movement, no use of accessory muscles and clear to auscultation bilaterally Effort and Inspection: able to speak in complete sentences and symmetric chest movement; Negative for respiratory distress or audible wheezes Auscultation: clear to auscultation bilaterally Cardio regular rate, regular rhythm and no murmurs Cardio Narrative: Distant heart sounds Rate: regular rate Rhythm: regular rhythm Heart Sounds: Negative for murmur GI normal to inspection, nondistended, normoactive bowel sounds, soft to palpation, non-tender and non-distended GI Narrative: Peg tube in place. Very mild surrounding irritation without erythema or warmth. Auscultation: normoactive bowel sounds Palpation: soft; Negative for tender or guarding Extremity normal to inspection General Extremity: Negative for edema Skin no rashes or lesions noted Lesions: no lesions Rashes: no rashes Neuro oriented x3 Sensorium / Orientation: awake, alert, oriented to person, oriented to place and oriented to time Speech: speech normal Psych mental status grossly normal, cooperative, affect normal and speech normal Appearance: grossly normal Attitude: calm Assessment & Plan Assessment/Plan (1) Debility: PLAN: Will continue with PT/OT and follow up on findings and recommendations. D/C planned for 02/01 with [facility] and family care. Continue with PRN pain management, bowel regimen and fall precautions. Family training scheduled for tomorrow afternoon. (2) Parkinson disease: QUALIFIERS: Dyskinesia presence: with dyskinesia Fluctuating manifestations: unspecified whether manifestations fluctuate Qualified Code(s): G20.B1 - Parkinson's disease with dyskinesia, without mention of fluctuations PLAN: As above. Will continue home medications. Will continue baclofen to help with muscle spasms and contractility. Patient denies any pain. (3) Oropharyngeal dysphagia: PLAN: PEG tube in place. Speech therapy following. His diet has been maintained on full thin liquids due to concern of aspiration. Will continue with isosource 1.5 [id number]. Will also continue with H20 50cc before and after feeds. Family training this week will include PEG tube care and management. Skin appears slightly irritated around PEG today without signs of infection. Will continue to monitor closely. (4) S/P percutaneous endoscopic gastrostomy (PEG) tube placement: PLAN: As above. Patient is currently tolerating tube feeds well. He will need to follow up with GI upon discharge from inpatient rehab. (5) Muscle spasm: PLAN: As above. Continue with baclofen. Will continue to monitor and adjust as needed. (6) Severe protein-calorie malnutrition: PLAN: As above. (7) Esophagitis: PLAN: Will continue protonix 40mg BID (8) Overactive bladder: PLAN: Continue home medications including myrbetriq and solifenacin. (9) HTN (hypertension): QUALIFIERS: Hypertension type: essential hypertension Qualified Code(s): I10 - Essential (primary) hypertension PLAN: Blood pressure has been borderline during his admission. Patient hasn't been on medications at home. Will continue with PRN hydralazine and monitor. (10) BPH (benign prostatic hyperplasia): QUALIFIERS: Lower urinary tract symptom presence: symptoms absent Qualified Code(s): N40.0 - Benign prostatic hyperplasia without lower urinary tract symptoms PLAN: Stable. No current symptoms. (11) DMII (diabetes mellitus, type 2): QUALIFIERS: Diabetes mellitus complication status: without complication Diabetes mellitus jail insulin use: without jail use Qualified Code(s): E11.9 - Type 2 diabetes mellitus without complications PLAN: Patient hasn't been on diabetic medications since his weight loss. Will continue with glucose checks and add SSI as needed. Last A1c was out of diabetic range at 5.6. Glucose was 127 this morning. Charges/Coding Visit Charges Inpatient E&M: 89662 Subs Hosp L1
[2023-01-28] MEDS: CARBIDOPA/LEVODOPA 1 EACH CAPSULE.ER 4 EACH PO ×2 (11:35→17:21)
[2023-01-28 12:03] LABS: Bedside Glucose 128 mg/dL (74-106)
[2023-01-28] MEDS: Mirabegron 25 MG TAB.ER.24H 50 MG PO (13:24)
[2023-01-28 16:53] LABS: Bedside Glucose 143 mg/dL (74-106)
[2023-01-28 19:34] VITALS: BP 155/84; PULSE 90; RESP 18; TEMP 37.4; O2SAT 97
[2023-01-28] MEDS: CARBIDOPA/LEVODOPA 1 EACH CAPSULE.ER PO (22:05)
[2023-01-28] MEDS: Senna/Docusate Sodium 1 Tablet GT (22:05)
[2023-01-29 06:00] VITALS: BMI 18.8
[2023-01-29] MEDS: Lansoprazole 15 MG Capsule.DR 30 MG GT ×2 (06:25→17:29)
[2023-01-29] MEDS: Menthol/Lanolin/Calamine/Znox 113 GM Tube 1 APPLIC TOPICAL ×3 (06:26→23:03)
[2023-01-29] MEDS: Jevity 1.5. 1,000 ML Bottle 200 ML GT (06:26)
[2023-01-29 07:15] LABS: Bedside Glucose 85 mg/dL (74-106)
[2023-01-29 07:16] VITALS: BP 142/79; PULSE 73; RESP 17; TEMP 36.6; O2SAT 99
[2023-01-29] MEDS: CARBIDOPA/LEVODOPA 1 EACH CAPSULE.ER 3 EACH PO (08:16)
[2023-01-29] MEDS: Tolterodine Tartrate 4 MG CAP.SA PO (08:18)
[2023-01-29] MEDS: Baclofen 10 MG Tablet 5 MG GT ×2 (08:18→22:59)
[2023-01-29] MEDS: Amantadine 100 MG Capsule GT (08:18)
[2023-01-29] MEDS: Jevity 1.5. 1,000 ML Bottle 300 ML GT ×4 (08:19→23:00)
[2023-01-29] MEDS: Nystatin Powder 15gm Bottle 1 APPLIC TOPICAL ×2 (08:31→23:03)
--- NOTE | 2023-01-29 08:35 | EX.PCM.PN.RE ---
Subjective Subjective Patient was admitted for daily rehab following a hospital stay for progressive weakness in the setting of Parkinson's disease, dysphagia and esophagitis. No events overnight, although he reports he didn't sleep very well. He has his family training is scheduled for later today. Plan for discharge home with [facility] and family assistance on 02/01. The patient reports that he is doing well. He denies any pain currently. He is being maintained on a thin liquid/pureed diet and his tube feeds. He states he is tolerating his tube feeds without difficulty. He is moving his bowels. He has no questions or concerns at this time. Objective Data Objective Data Vital Signs: Vital Signs Temp Pulse Resp BP Pulse Ox O2 Del Method O2 Flow Rate 97.8 F 73 17 142/79 H 99 Room Air 1 01/29/23 07:16 01/29/23 07:16 01/29/23 07:16 01/29/23 07:16 01/29/23 07:16 01/29/23 07:16 01/15/23 22:21 Oxygen Flow Rate (L/min) 1 Oxygen Delivery Method Room Air Weight: 121 lb 0.54 oz Body Mass Index (BMI) 18.9 Intake & Output: Intake and Output for Last 24 Hours 01/27/23 01/28/23 01/29/23 23:59 23:59 23:59 Intake Total 960 / 1060 1525 / 1525 400 / 400 Balance 960 / 1060 1525 / 1525 400 / 400 Medical Nutrition Assessment Dietitian: Malnutrition Criteria Met Start: 01/15/23 13:17 Freq: Status: Active Protocol: Document 01/22/23 15:20 (Rec: 01/22/23 15:20 [id number]) Nutrition Malnutrition Evidence of Malnutrition Exists Yes Malnutrition (severe): Chronic Evidenced By Suboptimal Energy Intake ( Severe),Weight Loss (Severe), Physical Changes (Severe) Clinical Problem Chronic Disease or Condition Related Malnutrition Etiology severe, chronic malnutrition related to inadequate energy intake d/t dysphagia Signs/Symptoms as evidenced by estimated PO intake meeting <75% of estimated energy needs > 3 months, unintentional 18% wt loss x 6 months, Severe muscle wasting/fat loss evident per physical exam in orbital, clavicle, acromion, and temporal areas, BMI 17.6 Status Active Problem Recommendation Dietitian Recommendations/Changes 1. Regular diet- texture/ consistency (purees/thins) per CHILD DEVELOPMENT CONSULTANT; anticipate PO diet to be mostly for pleasure, so 100% of estimated energy needs to be met via enteral nutrition. 2. Will continue via PEG- Jevity 1.5 300mL 4x/day w/ 100mL H2O flush before and after each bolus to provide 1800 calories, 76.56 g protein , and 1712mL fluid/day. Noted pt on Sinemet which must be given 30 minutes before meals or 1 hour after meals. Will order Jevity boluses after meal times and at HS. 3. Will add Jevity 1.5 200mL bolus feed at 0600 with 100mL flush before and after each bolus to help with satiety. 3. Daily wts. 4. Will monitor wound assessments and add Romain BID via PEG as indicated. Lab / Micro Data Attestation: I reviewed the patient's lab results. 01/28/23 05:09 01/28/23 05:09 Labs: Laboratory Results - last 24 hr 01/28/23 11:44: POC Glucose 128 H 01/28/23 16:34: POC Glucose 143 H 01/29/23 06:24: POC Glucose 85 Micro: Microbiology 01/15/23 17:25 Blood Culture (Wb) - Anticubital Right Blood Culture - Final No growth in 5 days. 01/15/23 17:30 Blood Culture (Wb) - Left Wrist Blood Culture - Final No growth in 5 days. 01/15/23 17:15 Urine Catheter - Vincent Urine Culture - Final Staphylococcus aureus Indicators for Scoring Admitted with or Primary Diagnosis of CVA/Stroke: No Hx of CVA/Stroke: No Modified [place] Score MRS Score at time of Evaluation: 5-Severe disability Physical Exam Const alert, oriented x3 and no apparent distress Constitutional Narrative: Emaciated, Laying in bed, working with therapy General Appearance: cooperative; Negative for in distress, ill appearing or diaphoretic Orientation / Consciousness: awake, oriented to person, oriented to place and oriented to time Exam Limitations: Negative for altered mental status HEENT normocephalic, head/scalp atraumatic and dentition normal Head and Scalp: normocephalic and atraumatic Face and Sinus: normal facial exam Eyes General Eye: normal appearance of both eyes Chest inspection of chest normal Chest: symmetrical chest wall rise Resp normal respiratory effort, normal air movement, no use of accessory muscles and clear to auscultation bilaterally Resp Narrative: Anterior auscultation Effort and Inspection: able to speak in complete sentences and symmetric chest movement; Negative for respiratory distress or audible wheezes Auscultation: clear to auscultation bilaterally Cardio regular rate, regular rhythm and no murmurs Cardio Narrative: Distant heart sounds Rate: regular rate Rhythm: regular rhythm Heart Sounds: Negative for murmur GI normal to inspection, nondistended, normoactive bowel sounds, soft to palpation, non-tender and non-distended GI Narrative: Peg tube in place. Very mild surrounding irritation without erythema or warmth, unchanged. Auscultation: normoactive bowel sounds Palpation: soft; Negative for tender or guarding Extremity normal to inspection General Extremity: Negative for edema Skin no rashes or lesions noted Lesions: no lesions Rashes: no rashes Neuro oriented x3 Sensorium / Orientation: awake, alert, oriented to person, oriented to place and oriented to time Speech: speech normal Psych mental status grossly normal, cooperative, affect normal and speech normal Appearance: grossly normal Attitude: calm Assessment & Plan Assessment/Plan (1) Debility: PLAN: Will continue with PT/OT and follow up on findings and recommendations. D/C planned for 02/01 with [facility] and family care. Continue with PRN pain management, bowel regimen and fall precautions. Family training scheduled for later today. (2) Parkinson disease: QUALIFIERS: Dyskinesia presence: with dyskinesia Fluctuating manifestations: unspecified whether manifestations fluctuate Qualified Code(s): G20.B1 - Parkinson's disease with dyskinesia, without mention of fluctuations PLAN: As above. Will continue home medications. Will continue baclofen to help with muscle spasms and contractility. Patient denies any pain. (3) Oropharyngeal dysphagia: PLAN: PEG tube in place. Speech therapy following. His diet has been maintained on full thin liquids due to concern of aspiration. Will continue with isosource 1.5 [id number]. Will also continue with H20 50cc before and after feeds. Family training this week will include PEG tube care and management. Skin appears slightly irritated around PEG today without signs of infection. It is unchanged. Will continue to monitor closely. (4) S/P percutaneous endoscopic gastrostomy (PEG) tube placement: PLAN: As above. Patient is currently tolerating tube feeds well. He will need to follow up with GI upon discharge from inpatient rehab. (5) Muscle spasm: PLAN: As above. Continue with baclofen. Will continue to monitor and adjust as needed. (6) Severe protein-calorie malnutrition: PLAN: As above. He has gained 9 pounds since his admission. (7) Esophagitis: PLAN: Will continue protonix 40mg BID (8) Overactive bladder: PLAN: Continue home medications including myrbetriq and solifenacin. (9) HTN (hypertension): QUALIFIERS: Hypertension type: essential hypertension Qualified Code(s): I10 - Essential (primary) hypertension PLAN: Blood pressure has been borderline during his admission. Patient hasn't been on medications at home. Will continue with PRN hydralazine and monitor. (10) BPH (benign prostatic hyperplasia): QUALIFIERS: Lower urinary tract symptom presence: symptoms absent Qualified Code(s): N40.0 - Benign prostatic hyperplasia without lower urinary tract symptoms PLAN: Stable. No current symptoms. (11) DMII (diabetes mellitus, type 2): QUALIFIERS: Diabetes mellitus complication status: without complication Diabetes mellitus terminal worker insulin use: without senior living use Qualified Code(s): E11.9 - Type 2 diabetes mellitus without complications PLAN: Patient hasn't been on diabetic medications since his weight loss. Will continue with glucose checks and add SSI as needed. Last A1c was out of diabetic range at 5.6. Glucose was 85 this morning. Charges/Coding Visit Charges Inpatient E&M: 24864 Subs Hosp L1
[2023-01-29 11:40] LABS: Bedside Glucose 160 mg/dL (74-106)
[2023-01-29] MEDS: Mirabegron 25 MG TAB.ER.24H 50 MG PO (13:40)
[2023-01-29] MEDS: CARBIDOPA/LEVODOPA 1 EACH CAPSULE.ER 4 EACH PO ×2 (13:41→17:29)
--- NOTE | 2023-01-29 16:23 | CASEMGMT ---
Social Work , dtr and grandson present in room from therapy training and requesting to speak with this worker. Family asked multiple questions about homegoing, coverage in a SNF, even after community stay, palliative vs hospice, and hiring VISUAL C DEVELOPER. SW answered all questions to family's understanding. Provided list of VISUAL C DEVELOPER resources and [place]. Family and pt in agreement at the end of discussion for pt to DC home. This worker to add SW to [facility] order to assist with transition home and if home is not successful, to assist with transition to SNF. requesting transport as pt cannot get in and out of a car. SW updated [facility] via [employer]. Scheduled cot transport through [facility] for [facility]. SW sent updated message via [employer] to I to follow up on peg order. Plan: DC home with and family support 02/01, [facility] PT/OT/ST/SN/YONATHAN, new peg Farrah Henley MSW PLUSH FINISHER
[2023-01-29 16:59] LABS: Bedside Glucose 119 mg/dL (74-106)
[2023-01-29] MEDS: CARBIDOPA/LEVODOPA 1 EACH CAPSULE.ER PO (21:48)
[2023-01-29 22:00] VITALS: BP 135/75; PULSE 72; RESP 20; TEMP 36.3; O2SAT 98
[2023-01-29 22:08] LABS: Bedside Glucose 118 mg/dL (74-106)
[2023-01-29] MEDS: Senna/Docusate Sodium 1 Tablet GT (22:59)
[2023-01-29 23:00] VITALS: PULSE 83; O2SAT 98
[2023-01-30] MEDS: Lansoprazole 15 MG Capsule.DR 30 MG GT ×2 (04:59→17:58)
[2023-01-30] MEDS: Menthol/Lanolin/Calamine/Znox 113 GM Tube 1 APPLIC TOPICAL ×3 (04:59→22:28)
[2023-01-30] MEDS: Jevity 1.5. 1,000 ML Bottle 200 ML GT (05:01)
[2023-01-30 06:00] VITALS: BMI 18.9
[2023-01-30 07:39] LABS: Bedside Glucose 89 mg/dL (74-106)
[2023-01-30 07:53] VITALS: BP 154/84; PULSE 72; RESP 18; TEMP 37.1; O2SAT 100
[2023-01-30] MEDS: CARBIDOPA/LEVODOPA 1 EACH CAPSULE.ER 3 EACH PO (09:01)
[2023-01-30] MEDS: Baclofen 10 MG Tablet 5 MG GT ×2 (09:02→22:26)
[2023-01-30] MEDS: Amantadine 100 MG Capsule GT (09:02)
[2023-01-30] MEDS: Tolterodine Tartrate 4 MG CAP.SA PO (09:02)
[2023-01-30] MEDS: Polyethylene Glycol 3350 17 GM PACKET GT (09:02)
[2023-01-30] MEDS: Senna/Docusate Sodium 1 Tablet GT (09:02)
[2023-01-30] MEDS: Jevity 1.5. 1,000 ML Bottle 300 ML GT ×4 (09:04→22:34)
[2023-01-30 09:43] VITALS: O2SAT 98
--- NOTE | 2023-01-30 10:22 | CASEMGMT ---
Social Work YONATHAN phoned [employer] as no response has been given on peg supplies. YONATHAN spoke with Sruthi. Sruthi requesting updated drs note with SUJATHA, type of peg, and HHC agency. YONATHAN provided Sruthi with all requested information via phone and [employer]. No other needs or issues identified. Sruthi is aware of DC 02/01 at 1100. IRMA GeorgeW
[2023-01-30 12:01] LABS: Bedside Glucose 126 mg/dL (74-106)
[2023-01-30] MEDS: CARBIDOPA/LEVODOPA 1 EACH CAPSULE.ER 4 EACH PO ×2 (13:40→17:58)
[2023-01-30] MEDS: Mirabegron 25 MG TAB.ER.24H 50 MG PO (13:41)
[2023-01-30] MEDS: Nystatin Powder 15gm Bottle 1 APPLIC TOPICAL (13:41)
[2023-01-30 17:55] LABS: Bedside Glucose 102 mg/dL (74-106)
[2023-01-30 20:52] VITALS: BP 149/80; PULSE 79; RESP 20; TEMP 36.6; O2SAT 100
[2023-01-30] MEDS: CARBIDOPA/LEVODOPA 1 EACH CAPSULE.ER PO (22:27)
[2023-01-30 23:08] LABS: Bedside Glucose 126 mg/dL (74-106)
[2023-01-31] MEDS: Menthol/Lanolin/Calamine/Znox 113 GM Tube 1 APPLIC TOPICAL ×2 (05:34→21:25)
[2023-01-31] MEDS: Lansoprazole 15 MG Capsule.DR 30 MG GT ×2 (05:42→16:50)
[2023-01-31] MEDS: Jevity 1.5. 1,000 ML Bottle 200 ML GT (05:45)
[2023-01-31 06:00] VITALS: BMI 18.4
[2023-01-31 07:25] LABS: Bedside Glucose 116 mg/dL (74-106)
[2023-01-31 07:48] VITALS: BP 151/83; PULSE 81; RESP 19; TEMP 35.7; O2SAT 99
[2023-01-31] MEDS: CARBIDOPA/LEVODOPA 1 EACH CAPSULE.ER 3 EACH PO (08:10)
--- NOTE | 2023-01-31 09:11 | EX.DISCHREH ---
Providers Date of Admission: 01/14/23 Date of Discharge: 02/01/23 Primary Care Physician: Dr. Nico Schmidt MD Consultations 01/14/23 22:51 Consult: Onc/Wound/abrasive water jet cutter operator Routine Comment: Reason for Consult:: unstageable pressure areas to feet Reason For Visit: PARKINSONS Diagnosis Discharge Diagnosis (1) Debility: Status: Acute Code(s): R53.81 - Other malaise Plan: Will continue with PT/OT and follow up on findings and recommendations. D/C planned for 02/01 with [facility] and family care. Continue with PRN pain management, bowel regimen and fall precautions. Family training completed. (2) Parkinson disease: Status: Acute Code(s): G20 - Parkinson's disease Qualifiers: Dyskinesia presence: with dyskinesia Fluctuating manifestations: unspecified whether manifestations fluctuate Qualified Code(s): G20.B1 - Parkinson's disease with dyskinesia, without mention of fluctuations Plan: As above. Will continue home medications. Will continue baclofen to help with muscle spasms and contractility. Patient denies any pain. (3) Oropharyngeal dysphagia: Status: Acute Code(s): R13.12 - Dysphagia, oropharyngeal phase Plan: PEG tube in place. Speech therapy following. His diet was advanced to small and bite sized just prior to discharge, requiring 1:1 supervision. Will continue with isosource 1.5 [id number]. Will also continue with H20 50cc before and after feeds. Family training included PEG tube care and management. (4) S/P percutaneous endoscopic gastrostomy (PEG) tube placement: Status: Acute Code(s): Z93.1 - Gastrostomy status Plan: As above. Patient is currently tolerating tube feeds well. He will need to follow up with GI upon discharge from inpatient rehab. (5) Muscle spasm: Status: Acute Code(s): M62.838 - Other muscle spasm Plan: As above. Continue with baclofen. Will continue to monitor and adjust as needed. (6) Severe protein-calorie malnutrition: Status: Acute Code(s): E43 - Unspecified severe protein-calorie malnutrition Plan: As above. He has gained about 6 pounds since his admission. (7) Esophagitis: Status: Acute Code(s): K20.90 - Esophagitis, unspecified without bleeding Plan: Will continue protonix 40mg BID (8) Overactive bladder: Status: Acute Code(s): N32.81 - Overactive bladder Plan: Continue home medications including myrbetriq and solifenacin. (9) HTN (hypertension): Status: Chronic Code(s): I10 - Essential (primary) hypertension Qualifiers: Hypertension type: essential hypertension Qualified Code(s): I10 - Essential (primary) hypertension Plan: Blood pressure has been borderline during his admission. Patient hasn't been on medications at home. Will continue with home monitoring. (10) BPH (benign prostatic hyperplasia): Status: Chronic Code(s): N40.0 - Benign prostatic hyperplasia without lower urinary tract symptoms Qualifiers: Lower urinary tract symptom presence: symptoms absent Qualified Code(s): N40.0 - Benign prostatic hyperplasia without lower urinary tract symptoms Plan: Stable. No current symptoms. (11) DMII (diabetes mellitus, type 2): Status: Chronic Code(s): E11.9 - Type 2 diabetes mellitus without complications Qualifiers: Diabetes mellitus complication status: without complication Diabetes mellitus terminal operations supervisor insulin use: without terminal operations supervisor use Qualified Code(s): E11.9 - Type 2 diabetes mellitus without complications Plan: Patient hasn't been on diabetic medications since his weight loss. Will continue with glucose checks and add SSI as needed. Last A1c was out of diabetic range at 5.6. Glucose was 116 this morning. Medications at Discharge Home Medications amantadine HCl 100 mg capsule 100 mg PO DAILY PD 11/16/20 rasagiline 1 mg tablet 1 mg PO DAILY PARKINSONS 11/16/20 acetaminophen 325 mg tablet 650 mg PO Q4H PRN pain 01/14/23 hydralazine 10 mg tablet 10 mg PO TID PRN systolic bp greater than 190 01/14/23 miconazole nitrate 2 % topical powder (Antifungal (miconazole)) 1 applic topical BID back rash 01/14/23 mirabegron 50 mg tablet,extended release 24 hr (Myrbetriq) 50 mg PO DAILY@1400 OAB 01/14/23 pantoprazole 40 mg tablet,delayed release (Protonix) 40 mg PO BID@0600,1600 gerd 01/14/23 polyethylene glycol 3350 17 gram/dose oral powder (Miralax) 17 g PO DAILY constipation 01/14/23 sennosides 8.6 mg-docusate sodium 50 mg tablet (Senna-Time S) 1 tab-cap PO BID constipation 01/14/23 solifenacin 10 mg tablet 10 mg PO DAILY OAB 01/14/23 carbidopa ER 36.25 mg-levodopa 145 mg capsule,extended release (Rytary) 1 cap PO QHS parkinsons 01/27/23 carbidopa ER 36.25 mg-levodopa 145 mg capsule,extended release (Rytary) 3 cap PO DAILY@0800 parkinsons 01/27/23 carbidopa ER 36.25 mg-levodopa 145 mg capsule,extended release (Rytary) 4 cap PO 1200,1700 parkinsons 01/27/23 baclofen 10 mg tablet 5 mg (1/2 x 10 mg) G-tube BID #60 tabs 01/30/23 lactose-reduced food with fiber 0.06 gram-1.5 kcal/mL oral liquid (Jevity 1.5 Chato) 200 ml G-tube DAILY@0600 #6,000 mL 01/30/23 lactose-reduced food with fiber 0.06 gram-1.5 kcal/mL oral liquid (Jevity 1.5 Chato) 300 ml G-tube HS #9,000 mL 01/30/23 lactose-reduced food with fiber 0.06 gram-1.5 kcal/mL oral liquid (Jevity 1.5 Chato) 300 ml G-tube TIDPC #36,000 mL 01/30/23 Hospital Course Summary of Care Provided Hospital Course: Patient came as a transfer from [facility] for therapy purposes. He initially presented to [facility] on 12/25 with complaints of weakness and dysphagia which had been progressively worsening for a week prior. During his admission, his Parkinson medications were adjusted. He underwent an EGD for his dysphagia which showed esophagitis and gastritis and was started on PPI therapy. He continued to have problems with dysphagia and, on 01/01, underwent a PEG tube placement and was later started on tube feeds. The patient clinically improved. Therapy saw the patient who felt he would benefit from rehab. Once stable, he was transferred to [facility] inpatient rehab. While at rehab, the patient worked well with therapy with slow improvements. He was found to have a UTI and completed treatment for that. With family assistance, it was felt he could go home with [facility]. Family training was completed prior to his discharge. Today, the patient reports he is feeling well. He slept well last night and is anxious to get home. He has no pain, is moving his bowels and still tolerating his tube feeds. He believes family training went well and has no concerns or questions prior to going home. Physical Exam Const alert, oriented x3 and no apparent distress Constitutional Narrative: Emaciated, Sitting up in the wheelchair, working with therapy General Appearance: cooperative; Negative for in distress, ill appearing or diaphoretic Orientation / Consciousness: awake, oriented to person, oriented to place and oriented to time Exam Limitations: Negative for altered mental status HEENT normocephalic, head/scalp atraumatic and dentition normal Head and Scalp: normocephalic and atraumatic Face and Sinus: normal facial exam Eyes General Eye: normal appearance of both eyes Chest inspection of chest normal Chest: symmetrical chest wall rise Resp normal respiratory effort, normal air movement, no use of accessory muscles and clear to auscultation bilaterally Effort and Inspection: able to speak in complete sentences and symmetric chest movement; Negative for respiratory distress or audible wheezes Auscultation: clear to auscultation bilaterally Cardio regular rate, regular rhythm and no murmurs Cardio Narrative: Distant heart sounds Rate: regular rate Rhythm: regular rhythm Heart Sounds: Negative for murmur GI normal to inspection, nondistended, normoactive bowel sounds, soft to palpation, non-tender and non-distended GI Narrative: Peg tube in place. Auscultation: normoactive bowel sounds Palpation: soft; Negative for tender or guarding Extremity normal to inspection General Extremity: Negative for edema Skin no rashes or lesions noted Lesions: no lesions Rashes: no rashes Neuro oriented x3 Sensorium / Orientation: awake, alert, oriented to person, oriented to place and oriented to time Speech: speech normal Psych mental status grossly normal, cooperative, affect normal and speech normal Appearance: grossly normal Attitude: calm Medical Records Data Attestation: I reviewed the patient's medical records Medical Nutrition Assessment Dietitian: Malnutrition Criteria Met Start: 01/15/23 13:17 Freq: Status: Active Protocol: Document 01/22/23 15:20 LO (Rec: 01/22/23 15:20 LO [id number]) Nutrition Malnutrition Evidence of Malnutrition Exists Yes Malnutrition (severe): Chronic Evidenced By Suboptimal Energy Intake ( Severe),Weight Loss (Severe), Physical Changes (Severe) Clinical Problem Chronic Disease or Condition Related Malnutrition Etiology severe, chronic malnutrition related to inadequate energy intake d/t dysphagia Signs/Symptoms as evidenced by estimated PO intake meeting <75% of estimated energy needs > 3 months, unintentional 18% wt loss x 6 months, Severe muscle wasting/fat loss evident per physical exam in orbital, clavicle, acromion, and temporal areas, BMI 17.6 Status Active Problem Recommendation Dietitian Recommendations/Changes 1. Regular diet- texture/ consistency (purees/thins) per CARE INFORMATION ASSOCIATE; anticipate PO diet to be mostly for pleasure, so 100% of estimated energy needs to be met via enteral nutrition. 2. Will continue via PEG- Jevity 1.5 300mL 4x/day w/ 100mL H2O flush before and after each bolus to provide 1800 calories, 76.56 g protein , and 1712mL fluid/day. Noted pt on Sinemet which must be given 30 minutes before meals or 1 hour after meals. Will order Jevity boluses after meal times and at HS. 3. Will add Jevity 1.5 200mL bolus feed at 0600 with 100mL flush before and after each bolus to help with satiety. 3. Daily wts. 4. Will monitor wound assessments and add Romain BID via PEG as indicated. Weight / BMI Weight Weight: 117 lb 11.629 oz Body Mass Index (BMI) 18.4 ABG / Lab / Microbiology Data Attestation: I reviewed the patient's lab results. 01/28/23 05:09 01/28/23 05:09 Laboratory: Laboratory Results - last 24 hr 01/30/23 11:43: POC Glucose 126 H 01/30/23 17:27: POC Glucose 102 01/30/23 22:25: POC Glucose 126 H 01/31/23 06:38: POC Glucose 116 H Microbiology: Microbiology 01/15/23 17:25 Blood Culture (Wb) - Anticubital Right Blood Culture - Final No growth in 5 days. 01/15/23 17:30 Blood Culture (Wb) - Left Wrist Blood Culture - Final No growth in 5 days. 01/15/23 17:15 Urine Catheter - Vincent Urine Culture - Final Staphylococcus aureus Indicators for Scoring Admitted with or Primary Diagnosis of CVA/Stroke: No Hx of CVA/Stroke: No Modified [place] Score MRS Score at time of Evaluation: 5-Severe disability D/C Instructions Discharge Diet: - (Liquids with a straw, soups in a cup, Small bite sized pieces with 1:1 supervision) Discharge Activity: - (Per therapy recommendations) Weight Bearing Status: Weight bearing as tolerated Call your doctor if you observe: Fever of 101 or Higher, Numbness or Tingling, Inability to urinate, Inability to have a bowel movement, Shortness of breath, Dizziness, Fainting spells, Chest pain, Calf discomfort and Uncontrolled pain Please Follow Up With: Nico Schmidt MD When: 1-2 weeks Meaningful Use Info Meaningful Use Diagnoses (Choose all that apply): None applicable Discharge Plan Admission Admit Date/Time: 01/14/23 22:10 Primary Reason for Your Visit: Debility - Parkinson's disease Attending Provider: Phani Villeda Primary Care Provider: Nico Schmidt Discharge Orders/Prescriptions Prescriptions: New baclofen 10 mg Tablet 5 mg G-tube BID Qty: 60 0RF Jevity 1.5 Chato 0.06 gram-1.5 kcal/mL Liquid 200 ml G-tube DAILY@0600 Qty: 6000 0RF Jevity 1.5 Chato 0.06 gram-1.5 kcal/mL Liquid 300 ml G-tube TIDPC Qty: 44473 0RF Jevity 1.5 Chato 0.06 gram-1.5 kcal/mL Liquid 300 ml G-tube HS Qty: 9000 0RF Continued amantadine HCl 100 mg capsule 100 mg PO DAILY Patient Comments: rasagiline 1 mg tablet 1 mg PO DAILY Patient Comments: Myrbetriq 50 mg tablet extended release 24 hr 50 mg PO DAILY@1400 Patient Comments: TAKE 1 TABLET BY MOUTH EVERY DAY solifenacin 10 mg tablet 10 mg PO DAILY Patient Comments: TAKE 1 TABLET BY MOUTH EVERY DAY acetaminophen 325 mg tablet 650 mg PO Q4H PRN (Reason: pain) hydralazine 10 mg tablet 10 mg PO TID PRN (Reason: systolic bp greater than 190) Rx Instructions: until target blood pressure attained miconazole nitrate [Antifungal (miconazole)] 2 % powder 1 applic topical BID pantoprazole [Protonix] 40 mg tablet,delayed release (DR/EC) 40 mg PO BID@0600,1600 polyethylene glycol 3350 [Miralax] 17 gram/dose powder 17 g PO DAILY sennosides-docusate sodium [Senna-Time S] 8.6-50 mg tablet 1 tab-cap PO BID Rytary 36.25-145 mg capsule, extended release 3 cap PO DAILY@0800 Rytary 36.25-145 mg capsule, extended release 4 cap PO 1200,1700 Rytary 36.25-145 mg capsule, extended release 1 cap PO QHS Discontinued Myrbetriq 50 mg PO DAILY@1400 Referrals / Follow Up: Juan R Brice [Other] - 04/08/23 9:00 am (Neurologist- Will be w/ Taisha John) Nico Schmidt MD [Primary Care Provider] - 02/06/23 11:40 am (Scheduled w/ paralegal legal secretary Marcia) Disposition Disposition (needs filled in before D/C Order can be placed): Home Health Service Charges/Coding Visit Charges Inpatient E&M: 97827 Disch Hosp >30min
[2023-01-31] MEDS: Senna/Docusate Sodium 1 Tablet GT (10:45)
[2023-01-31] MEDS: Tolterodine Tartrate 4 MG CAP.SA PO (10:45)
[2023-01-31] MEDS: Baclofen 10 MG Tablet 5 MG GT ×2 (10:45→21:27)
[2023-01-31] MEDS: Amantadine 100 MG Capsule GT (10:45)
[2023-01-31] MEDS: Polyethylene Glycol 3350 17 GM PACKET GT (10:46)
[2023-01-31] MEDS: Jevity 1.5. 1,000 ML Bottle 300 ML GT ×4 (10:56→21:27)
[2023-01-31] MEDS: Nystatin Powder 15gm Bottle 1 APPLIC TOPICAL ×2 (10:58→21:25)
[2023-01-31] MEDS: CARBIDOPA/LEVODOPA 1 EACH CAPSULE.ER 4 EACH PO ×2 (12:22→16:50)
[2023-01-31 12:27] LABS: Bedside Glucose 149 mg/dL (74-106)
--- NOTE | 2023-01-31 14:17 | NURSING ---
PEG Tube feeding and medication administration taught to family and friends at bedside. All questions answered. Advised if there are any further questions upon discharge they can call to the floor and we can try to assist w/ these questions. Family denied any further questions and denoted total understanding.
[2023-01-31] MEDS: Mirabegron 25 MG TAB.ER.24H 50 MG PO (16:49)
[2023-01-31 17:19] LABS: Bedside Glucose 101 mg/dL (74-106)
[2023-01-31 19:46] VITALS: BP 145/85; PULSE 81; RESP 18; TEMP 36.7; O2SAT 99
[2023-01-31] MEDS: CARBIDOPA/LEVODOPA 1 EACH CAPSULE.ER PO (21:26)
[2023-01-31 22:31] LABS: Bedside Glucose 97 mg/dL (74-106)
[2023-02-01] MEDS: Lansoprazole 15 MG Capsule.DR 30 MG GT (05:26)
[2023-02-01] MEDS: Menthol/Lanolin/Calamine/Znox 113 GM Tube 1 APPLIC TOPICAL (05:28)
[2023-02-01] MEDS: Jevity 1.5. 1,000 ML Bottle 200 ML GT (05:28)
--- NOTE | 2023-02-01 06:39 | NURSING ---
pt refused to wear tedhose this morning and refused to check blood sugar as well.
[2023-02-01 06:54] VITALS: BMI 18.2
[2023-02-01 07:00] VITALS: BP 141/79; PULSE 64; RESP 19; TEMP 37; O2SAT 96
[2023-02-01 09:11] VITALS: BP 116/53; PULSE 88; RESP 16; TEMP 37; O2SAT 100
[2023-02-01] MEDS: CARBIDOPA/LEVODOPA 1 EACH CAPSULE.ER 3 EACH PO (09:20)
[2023-02-01] MEDS: Baclofen 10 MG Tablet 5 MG GT (09:21)
[2023-02-01] MEDS: Amantadine 100 MG Capsule GT (09:21)
[2023-02-01] MEDS: Tolterodine Tartrate 4 MG CAP.SA PO (09:21)
[2023-02-01 10:00] VITALS: PULSE 72; O2SAT 100
[2023-02-01] MEDS: Jevity 1.5. 1,000 ML Bottle 300 ML GT (10:21)
[2023-02-01] MEDS: Nystatin Powder 15gm Bottle 1 APPLIC TOPICAL (10:21)
== END 2023-02-01 11:40 | disposition home health service (06) | DRG 56 ==
PROVIDERS: Internal Medicine; PCP Family Medicine
DX: G20.B1 Parkinson's disease with dyskinesia, without mention of fluctuations (principal); E43 Unspecified severe protein-calorie malnutrition; Z68.1 Body mass index [BMI] 19.9 or less, adult; N39.0 Urinary tract infection, site not specified; E11.9 Type 2 diabetes mellitus without complications; Z93.1 Gastrostomy status; I10 Essential (primary) hypertension; K20.90 Esophagitis, unspecified without bleeding; G47.33 Obstructive sleep apnea (adult) (pediatric); N32.81 Overactive bladder; R13.12 Dysphagia, oropharyngeal phase; Z79.899 Other long term (current) drug therapy; N40.0 Benign prostatic hyperplasia without lower urinary tract symptoms
CPT/HCPCS: 36415; 80053; 81001; 82962; 83735; 84100; 85025; 85027; 87040; 87077; 87086; 87088; 87186; 92507; 92526; 92610; 94668; 97110; 97112; 97116; 97162; 97166; 97530; 97535; 97542; 97802; 97803

== ENCOUNTER 2023-02-27 13:29 | Inpatient (IN) | payer MEDICARE, OTHER, SELFPAY ==
[2023-02-27 13:55] VITALS: BP 123/90; PULSE 83; RESP 16; RESP 18; TEMP 36.4; O2SAT 92; BMI 17.8
[2023-02-27] MEDS: Pantoprazole Sodium 40 MG Tablet PO (16:24)
[2023-02-27] MEDS: Carbidopa/Levodopa 25/100 Tablet GT ×2 (16:24→20:33)
[2023-02-27] MEDS: Jevity 1.5. 1,000 ML Bottle 350 ML GT ×2 (17:52→23:07)
--- NOTE | 2023-02-27 18:32 | NURSING ---
HEAD OF BED UP, PEG PLACEMENT VERIFIED,0 RESIDUAL. PT TOLERATED JEVITY AND FLUSH WELL.
--- NOTE | 2023-02-27 19:28 | HP.PCM_ITS ---
HPI - General General Date of Admission: 02/27/23 Date of Service: 02/27/23 Chief Complaint: Here for rehabilitation. HPI Narrative CASEY WATTS, is a 72 Male who presents with followin01/09/2023 - 02/01/2023 [facility]. Patient discharged home but unable to care for him. Patient is dying of end stage Parkinson Disease, but both he and his are in denial, and unable to accept his terminal condition. I told him again Parkinson Disease is a progressive neurodegenerative disorder with no cure. Afterwards, Casey told me his goal to get stronger so he can go home with his . [facility] Medical History BPH (benign prostatic hyperplasia) Cellulitis Cellulitis Closed dislocation finger, proximal interphalangeal joint, traumatic Closed traumatic nondisplaced fracture of four ribs of right side Difficulty balancing when standing DMII (diabetes mellitus, type 2) History of Parkinson's disease HLD (hyperlipidemia) HTN (hypertension) Parkinson disease Parkinson's disease Home Medications amantadine HCl 100 mg capsule 100 mg PO DAILY PD 11/16/20 [History Last Taken 07/23/22] rasagiline 1 mg tablet 1 mg PO DAILY PARKINSONS 11/16/20 [History Last Taken 02/27/23] acetaminophen 325 mg tablet 650 mg PO Q4H PRN pain 01/14/23 [History Last Taken Unknown] hydralazine 10 mg tablet 10 mg PO TID PRN systolic bp greater than 190 01/14/23 [History Last Taken Unknown] mirabegron 50 mg tablet,extended release 24 hr (Myrbetriq) 50 mg PO DAILY@1400 OAB 01/14/23 [History Last Taken Unknown] pantoprazole 40 mg tablet,delayed release (Protonix) 40 mg PO BID@0600,1600 gerd 01/14/23 [History Last Taken Unknown] polyethylene glycol 3350 17 gram/dose oral powder (Miralax) 17 g PO DAILY constipation 01/14/23 [History Last Taken Unknown] sennosides 8.6 mg-docusate sodium 50 mg tablet (Senna-Time S) 1 tab-cap PO BID constipation 01/14/23 [History Last Taken Unknown] solifenacin 10 mg tablet 10 mg PO DAILY OAB 01/14/23 [History Last Taken 02/27/23] carbidopa ER 36.25 mg-levodopa 145 mg capsule,extended release (Rytary) 1 cap PO QHS parkinsons 01/27/23 [History Last Taken 02/03/23] carbidopa ER 36.25 mg-levodopa 145 mg capsule,extended release (Rytary) 3 cap PO DAILY@0800 parkinsons 01/27/23 [History Last Taken 02/03/23] carbidopa ER 36.25 mg-levodopa 145 mg capsule,extended release (Rytary) 4 cap PO 1200,1700 parkinsons 01/27/23 [History Last Taken 02/03/23] baclofen 10 mg tablet 5 mg (1/2 x 10 mg) G-tube BID Muscle spasms #60 tabs 01/30/23 [Rx Last Taken Unknown] lactose-reduced food with fiber 0.06 gram-1.5 kcal/mL oral liquid (Jevity 1.5 Chato) 200 ml G-tube DAILY@0600 supplement #6,000 mL 01/30/23 [Rx Last Taken Unknown] lactose-reduced food with fiber 0.06 gram-1.5 kcal/mL oral liquid (Jevity 1.5 Chato) 300 ml G-tube HS Supplement #9,000 mL 01/30/23 [Rx Last Taken Unknown] lactose-reduced food with fiber 0.06 gram-1.5 kcal/mL oral liquid (Jevity 1.5 Chato) 300 ml G-tube TIDPC Supplement #36,000 mL 01/30/23 [Rx Last Taken 02/27/23] carbidopa 25 mg-levodopa 100 mg tablet 2 tab feeding tube TID Parkinson 02/27/23 [History Last Taken 02/27/23] Allergy/AdvReac Type Severity Reaction Status Date / Time Penicillins [PCN] Allergy Unknown Verified 12/25/22 13:42 Family History Father Diabetes Hypertension Hyperlipidemia TIA (transient ischemic attack) Mother Hypertension Thyroid disorder Social History household members: spouse current occupational status: retired 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 Smoking Status: Never smoker alcohol intake: never substance use type: does not use and former substance user Date of last use: 1976 [facility] Constitutional Constitutional: Denies chills, fever(s) or weight gain ENT HEENT: Denies headache(s), nasal congestion or nasal discharge Cardiovascular Cardiovascular: Denies chest pain or palpitations Respiratory/Chest Respiratory/Chest: Denies cough, excessive phlegm production or shortness of breath with exertion Gastrointestinal Gastrointestinal: Denies abdominal pain, nausea or vomiting Genitourinary Genitourinary: Denies dysuria Musculoskeletal Musculoskeletal: Denies joint pain or joint swelling Integumentary Integumentary: Denies rash or wounds Neurologic Neurologic: Denies focal weakness, numbness or tingling Psychiatric Psychiatric: Denies anxiety, auditory hallucinations, depression, homicidal ideation or suicidal ideation Vital Signs Vital Signs Vital Signs: 02/27/23 13:55 02/27/23 13:55 Temperature 97.5 F L Temperature Source Temporal Pulse Rate 83 Pulse Rhythm Regular Pulse Strength Normal (2+) Respiratory Rate 16 18 Respiratory Effort Normal Non-Labored Respiratory Depth Normal Respiratory Pattern Normal Blood Pressure 123/90 H Blood Pressure Mean 101 Blood Pressure Position Semi-Fowlers Blood Pressure Location Left Arm Pulse Ox 92 Oxygen Delivery Method Room Air Room Air Weight Weight: 51.483 kg Body Mass Index (BMI) 17.8 Physical Exam Const alert General Appearance: cooperative HEENT normocephalic Eyes PERRL and EOMs intact bilaterally Neck supple, no JVD and no carotid bruits Resp normal respiratory effort, normal air movement and clear to auscultation bilaterally Cardio regular rate and regular rhythm GI normal to inspection, nondistended, normoactive bowel sounds, non-tender and non-distended GI Narrative: PEG. Extremity normal capillary refill General Extremity: Negative for edema Skin no rashes or lesions noted General Skin Exam: no breakdown Psych affect normal Appearance: appropriate Results Medical Records Data Medical Nutrition Assessment Dietitian: Malnutrition Criteria Met Start: 02/27/23 16:02 Freq: Status: Active Protocol: Document 02/27/23 16:19 (Rec: 02/27/23 16:19 [id number]) Nutrition Malnutrition Evidence of Malnutrition Exists Yes Malnutrition (severe): Chronic Evidenced By Suboptimal Energy Intake ( Severe),Weight Loss (Severe), Physical Changes (Severe) Clinical Problem Chronic Disease or Condition Related Malnutrition Etiology chronic, severe malnutrition related to inadequate energy intake d/t swallowing difficulty, Parkinsons Signs/Symptoms as evidenced by estimated energy intake meeting <75% of estimated energy needs > 3 months, severe muscle wasting/ fat loss evident per physical exam in orbital, clavicle, acromion, and temporal areas; unintentional wt loss of 17% x 7 months, BMI 17.8 Status Active Problem Recommendation Dietitian Recommendations/Changes will adjust EN to Jevity 1.5 Via PEG- 350mL bolus 4x/day w/ 100mL H2O flush before and after each bolus to provide 2100 calories, 89 g protein, and 1864mL total fluid/day. Lab / Micro Data Micro: Microbiology 02/27/23 15:30 Nasal Secretion SARS-CoV-2 Antigen (Rapid) - Final Assessment & Plan Assessment/Plan (1) Debility: (2) Failure to thrive: (3) Parkinson disease: QUALIFIERS: Dyskinesia presence: with dyskinesia Fluctuating manifestations: unspecified whether manifestations fluctuate Qualified Code(s): G20.B1 - Parkinson's disease with dyskinesia, without mention of fluctuations (4) Overactive bladder: (5) HTN (hypertension): QUALIFIERS: Hypertension type: essential hypertension Qualified Code(s): I10 - Essential (primary) hypertension (6) GERD (gastroesophageal reflux disease): PLAN: Plan 72 year old male with stage 5 Parkinson Disease, admitted to TCU with debility, failure to thrive, here for rehabilitation, strengthening, prior to disposition determination. * Debility - PT/OT. * Dysphagia - ST. * Pain - Tylenol 650mg q6 prn pain (1-10). * Bowel - Miralax 17gm daily, senna/colace 1 tablet bid. * Adult immunization - Administer pneumonia vaccine, covid vaccine, flu vaccine as appropriate. * DVT prophylaxis - Hold. * Parkinson Disease - Amantadine 100mg daily, Azilect 1mg daily, Sinemet 25/100mg 2 tablets tidac, 1.5 tablet qhs. * Muscle spasm - Baclofen 5mg bid. * Hypertension - Hydralazine 10mg tid prn. * Nutrition - Jevity 1.5 350ml tidpc, 350ml 2000. * GERD - Pantoprazole 40mg bid. * Overactive bladder - Tolterodine 4mg daily, Gemtasa 75mg daily.
[2023-02-27] MEDS: Baclofen 10 MG Tablet 5 MG GT (20:32)
[2023-02-27] MEDS: Senna/Docusate Sodium 1 Tablet GT (20:33)
--- NOTE | 2023-02-27 23:08 | NURSING ---
Gastric residual at 1999 was 225cc. Jevity held. Recheck for residual at 2299 showed 15cc. Jevity given at this time.
[2023-02-28 05:55] LABS: Absolute Lymphocyte Count 2.39 X10^3/uL (0.83-4.51); Absolute Neutrophil Count 4.1 X10^3/uL (2.0-7.7); Basophil# 0.12 X10^3/uL; Basophil% 1.5 % (0-1); Eosinophil# 0.39 X10^3/uL; Eosinophils% 4.9 % (0-5); Hematocrit 42.3 % (40-54); Hemoglobin 13.4 g/dL (13.0-16.5); Lymphocyte # 2.39 X10^3/ul (0.83-4.51); Lymphocyte % 29.8 % (19-41); Mean Corp Hgb Conc 31.7 g/dL (32-36); Mean Corpuscular Hgb 30.7 pg (27.0-32.0); Monocyte% 12.5 % (0-10); NRBC Flagged by Analyzer 0 % (0-5); Neutrophil # 4.07 X10^3/uL (2.7-7.7); Neutrophil % 50.7 % (47-70); Platelet Count 337 K/mm3 (150-450); RBC Distribution Width CV 14.6 % (11.6-14.6); RBC Distribution Width SD 52.7 fl (35.1-43.9); Red Blood Count 4.36 M/mm3 (4.6-6.2)
[2023-02-28] MEDS: Carbidopa/Levodopa 25/100 Tablet GT ×4 (06:03→21:50)
[2023-02-28] MEDS: Pantoprazole Sodium 40 MG Tablet PO ×2 (06:04→17:35)
[2023-02-28 06:40] LABS: Anion Gap 3 (5-15); BUN 25 mg/dL (7-18); BUN/Creat Ratio 26.6 RATIO (10-20); Chloride 104 mmol/L (98-107); Creatinine, Serum 0.94 mg/dL (0.70-1.30); EST Glomerular Filtration Rate 83 mL/min (>60); Est Glom Filt Rate - Afr Amer 101 mL/min (>60); Estimated Creatinine Clearance 50.21 ml/min; Glucose 75 mg/dL (74-106); Sodium Level 139 mmol/L (136-145)
--- NOTE | 2023-02-28 08:16 | NS ---
MST score = 7
[2023-02-28] MEDS: Tolterodine Tartrate 4 MG CAP.SA PO (09:11)
[2023-02-28] MEDS: Senna/Docusate Sodium 1 Tablet GT ×2 (09:12→21:51)
[2023-02-28] MEDS: Baclofen 10 MG Tablet 5 MG GT ×2 (09:12→21:51)
[2023-02-28] MEDS: Amantadine 100 MG Capsule GT (09:13)
[2023-02-28] MEDS: Jevity 1.5. 1,000 ML Bottle 350 ML GT ×4 (09:19→22:04)
[2023-02-28] MEDS: Polyethylene Glycol 3350 17 GM PACKET PO (09:19)
[2023-02-28] MEDS: Flu Vacc QS2023-24(65YR UP)/PF 240 MCG/0.7 ML Syringe IM (11:19)
[2023-02-28] MEDS: Tuberculin,Purif.prot.deriv. 50 TU/ML Vial 0.100000000000000006 ML ID (11:21)
--- NOTE | 2023-02-28 11:57 | NURSING ---
Drill Doctor Note; Activity Asset: Krissy Peña is independent in his choice of daily activities. He has a soft voice and need to get to his level to hear him however enjoys visiting w/others and family. He has a smartphone he will use along with watching tv and reading the newspaper and magazines. Casey stated he welcomes visit from the criminal researcher and therapy dog whom he would visit on the other unit as well. Staff will continue to remind him of in room and group activities and respect his tight to say no.
[2023-02-28 14:00] VITALS: BP 140/86; PULSE 91; RESP 16; TEMP 36.9; O2SAT 97
[2023-02-28] MEDS: Vibegron 75 MG TABLET PO (14:09)
--- NOTE | 2023-02-28 16:10 | PCM.PN.DRR ---
Documented by User: Alessio Blanchard 02/28/23 16:22 TCU RX Drug Regimen Review Subjective/Objective Subjective/Objective: Subjective: 72 year old male with stage 5 Parkinson Disease, admitted to TCU with debility, failure to thrive, here for rehabilitation, strengthening, prior to disposition determination. Objective: Allergies Penicillins [PCN] Allergy (Verified 12/25/22 13:42) Unknown It happened when I was a kid, I have no idea Current Medications Generic Name Dose Route Start Last Admin Trade Name Freq PRN Reason Stop Dose Admin Acetaminophen 650 mg 02/27/23 14:15 Acetaminophen 650 Mg/20 Ml Udc GT Q4H PRN PRN Pain 1-10 or Fever Amantadine HCl 100 mg 02/28/23 10:00 02/28/23 09:13 Amantadine 100 Mg Capsule GT 100 mg DAILY SANTO Administration Baclofen 5 mg 02/27/23 22:00 02/28/23 09:12 Baclofen 10 Mg Tablet GT 5 mg BID SANTO Administration Carbidopa/Levodopa 2 tablet 02/27/23 16:45 02/28/23 11:18 Carbidopa/Levodopa 25/100 Tablet GT 2 tablet TIDAC SANTO Administration Carbidopa/Levodopa 1.5 tablet 02/27/23 22:00 02/27/23 20:33 Carbidopa/Levodopa 25/100 Tablet GT 1.5 tablet QHS SANTO Administration Enteral Nutritional Formula 350 ml 02/27/23 18:45 02/28/23 14:19 Jevity 1.5. 1,000 Ml Bottle GT 350 ml TIDPC SANTO Administration Enteral Nutritional Formula 350 ml 02/28/23 22:00 Jevity 1.5. 1,000 Ml Bottle GT 2200 SANTO Hydralazine HCl 10 mg 02/27/23 14:16 Hydralazine 10 Mg Tablet GT TID PRN systolic bp greater than 190 Protocol Pantoprazole Sodium 40 mg 02/27/23 16:00 02/28/23 06:04 Pantoprazole Sodium 40 Mg Tablet PO 40 mg BID@0600,1600 SANTO Administration Polyethylene Glycol 17 gm 02/28/23 10:00 02/28/23 09:19 Polyethylene Glycol 3350 17 Gm Packet PO 17 gm DAILY SANTO Administration Rasagiline 1 mg 02/28/23 10:00 02/28/23 09:11 Rasagiline Mesylate 1 Mg Tablet GT 1 mg DAILY SANTO Administration Senna/Docusate Sodium 1 tablet 02/27/23 22:00 02/28/23 09:12 Senna/Docusate Sodium 1 Tablet GT 1 tablet BID SANTO Administration Sodium Chloride 10 - 40 ml 02/27/23 14:51 0.9% Saline Lock 10 Ml Syringe IV UD PRN SALINE FLUSH Tolterodine Tartrate 4 mg 02/28/23 10:00 02/28/23 09:11 Tolterodine Tartrate 4 Mg Cap.Sa PO 4 mg DAILY SANTO Administration Tuberculin PPD 0.1 ml 03/07/23 10:00 Tuberculin,Purif.Prot.Deriv. 50 Tu/Ml Vial ID 03/07/23 10:01 X1 ONE Problem List (Updated 02/27/23 @ 19:[address] Freddy Swann MD) GERD (gastroesophageal reflux disease) (Acute) Failure to thrive (Acute) Parkinson disease (Acute) Debility (Acute) Overactive bladder (Acute) HTN (hypertension) (Chronic) Vital Signs Temp Pulse Resp BP Pulse Ox O2 Del Method 97.5 F L 83 18 123/90 H 92 Room Air 02/27/23 13:55 02/27/23 13:55 02/27/23 13:55 02/27/23 13:55 02/27/23 13:55 02/27/23 13:55 Oxygen Delivery Method Room Air Weight: 51.483 kg Body Mass Index (BMI) 17.8 Sodium 139 mmol/L (136-145) 02/28/23 05:12 Potassium 4.0 mmol/L (3.5-5.1) 02/28/23 05:12 Chloride 104 mmol/L (98-107) 02/28/23 05:12 Carbon Dioxide 32.0 mmol/L (21.0-32.0) 02/28/23 05:12 Anion Gap 3 (5-15) L 02/28/23 05:12 BUN 25 mg/dL (7-18) H 02/28/23 05:12 Creatinine 0.94 mg/dL (0.70-1.30) 02/28/23 05:12 Est GFR (MDRD) Af Amer 101 mL/min (>60) 02/28/23 05:12 Est GFR (MDRD) Non-Af 83 mL/min (>60) 02/28/23 05:12 BUN/Creatinine Ratio 26.6 RATIO (10-20) H 02/28/23 05:12 Glucose 75 mg/dL (74-106) 02/28/23 05:12 Assessment/Plan: 1. Acetaminophen 650 mg GT Q6H PRN Pain (1-10). The patient has not required any PRN doses of acetaminophen so far this admission. Please continue to monitor pain levels, PRN medication usage and LFTs (AST/ALT = 23/8 U/L on 01/28/23). 2. Bowel: Polyethylene glycol 17 grams PO daily, senna/docusate 1 tab GT BID. The patient's last documented bowel movement was on 02/01/23. Please continue to monitor for bowel movements, for constipation and for diarrhea. 3. Parkinson Disease: amantadine 100 mg GT daily, rasagiline 1 mg GT daily, carbidopa/levodopa 2 tabs GT TIDAC, carbidopa/levodopa 1.5 tabs GT QHS. Please continue to monitor for parkinsonian symptoms, for s/s of orthostasis, for constipation, dry mouth, dizziness, hallucinations, dyskinesias, peripheral neuropathy, and for headache. 4. Muscle spasms: baclofen 5 mg GT BID. Please continue to monitor for muscle spasms, nausea, asthenia, confusion, dizziness and drowsiness. 5. Hypertension: hydralazine 10 mg GT TID PRN SBP > 190. The patient has not required any PRN doses of hydralazine so far this admission. Please continue to monitor for PRN medication administration, and blood pressures (recent range = 116-155/53-90 mmHg). 6. Overactive bladder: tolterodine 4 mg daily, vibegron 75 mg PO daily. Please continue to monitor for bladder spasms, for dry mouth, constipation, and for headaches. 7. GERD: pantoprazole 40 mg PO BID. Please continue to monitor for s/s of GERD, for diarrhea that could indicate clostridium difficile infection, and for s/s of bone resorption including fractures. 8. Nutrition: Jevity 1.5 Kcal/mL 350 mL GT TIDPC and Jevity 1.5 Kcal/mL 350 mL GT @ 2200. Please continue to monitor for overall nutritional status. Assessment/Plan for indications treated with psychotropic medications: NA Medical chart and medication regimen reviewed. The following medication irregularities or issues were identified: NA Date Date of Note:: 02/28/23 Documented by User: Dr. Freddy Swann MD 02/28/23 16:31 TCU RX Drug Regimen Review Provider Comments Provider responsibility Provider Comments to Recommendations by Pharmacy: Agree
--- NOTE | 2023-02-28 16:32 | CASEMGMT ---
Social Work Met with patient, whom is known to this worker from previous stay. Pt remembered this worker. Confirmed no changes to assessment, contacts or code status of full code. SW Educated to Medicare benefit and copay coverage. SW broached topic of readmit and inquired about plans if pt has a goal of what he needs to do to go home or if he will need a SNF. Pt expressed he is realistic and has that idea in his head . SW encouraged to communicate with staff pt's goals to better help with improvement and maintain safe DC planning. Pt agreed. SW will continue to follow for DC planning. IRMA GeorgeW
[2023-02-28] MEDS: Acetaminophen 325 MG Tablet 650 MG PO (22:29)
[2023-03-01] MEDS: Carbidopa/Levodopa 25/100 Tablet GT ×4 (05:49→22:20)
[2023-03-01] MEDS: Pantoprazole Sodium 40 MG Tablet PO ×2 (05:49→16:06)
[2023-03-01] MEDS: Jevity 1.5. 1,000 ML Bottle 350 ML GT ×4 (09:14→22:17)
[2023-03-01 09:27] VITALS: BP 139/84; PULSE 91; RESP 16; O2SAT 97
[2023-03-01] MEDS: Baclofen 10 MG Tablet 5 MG GT ×2 (10:59→22:19)
[2023-03-01] MEDS: Tolterodine Tartrate 4 MG CAP.SA PO (11:00)
[2023-03-01] MEDS: Amantadine 100 MG Capsule GT (11:00)
[2023-03-01 13:51] VITALS: TEMP 36.3
[2023-03-01] MEDS: Vibegron 75 MG TABLET PO (14:35)
[2023-03-01] MEDS: Acetaminophen 325 MG Tablet 650 MG PO (17:06)
[2023-03-01 20:15] VITALS: PULSE 94; RESP 16; O2SAT 98
[2023-03-01] MEDS: Senna/Docusate Sodium 1 Tablet GT (22:19)
[2023-03-02] MEDS: Carbidopa/Levodopa 25/100 Tablet GT ×4 (06:02→22:18)
[2023-03-02] MEDS: Pantoprazole Sodium 40 MG Tablet PO ×2 (06:02→15:56)
[2023-03-02 09:39] VITALS: BP 104/73; PULSE 88; RESP 20; O2SAT 98
[2023-03-02] MEDS: Baclofen 10 MG Tablet 5 MG GT ×2 (09:42→22:16)
[2023-03-02] MEDS: Tolterodine Tartrate 4 MG CAP.SA PO (09:42)
[2023-03-02] MEDS: Amantadine 100 MG Capsule GT (09:43)
[2023-03-02] MEDS: Jevity 1.5. 1,000 ML Bottle 350 ML GT ×4 (10:50→22:16)
[2023-03-02] MEDS: Acetaminophen 325 MG Tablet 650 MG PO (12:51)
[2023-03-02] MEDS: Vibegron 75 MG TABLET PO (12:52)
[2023-03-02 14:00] VITALS: TEMP 36.9
[2023-03-02 22:00] VITALS: PULSE 78; RESP 18; O2SAT 98
[2023-03-02] MEDS: Senna/Docusate Sodium 1 Tablet GT (22:17)
[2023-03-03] MEDS: Pantoprazole Sodium 40 MG Tablet PO ×2 (06:43→17:54)
[2023-03-03] MEDS: Carbidopa/Levodopa 25/100 Tablet GT ×4 (06:43→21:47)
[2023-03-03 06:56] VITALS: PULSE 80; RESP 18; O2SAT 99
[2023-03-03] MEDS: Tolterodine Tartrate 4 MG CAP.SA PO (08:55)
[2023-03-03] MEDS: Baclofen 10 MG Tablet 5 MG GT ×2 (08:55→21:47)
[2023-03-03] MEDS: Amantadine 100 MG Capsule GT (08:56)
[2023-03-03] MEDS: Jevity 1.5. 1,000 ML Bottle 350 ML GT ×4 (09:09→22:00)
--- NOTE | 2023-03-03 12:34 | NURSING ---
Offered Covid vaccine, VIS provided. Patient refuses at this time.
[2023-03-03] MEDS: Vibegron 75 MG TABLET PO (13:20)
[2023-03-03 13:45] VITALS: BP 158/98; PULSE 96; RESP 20; TEMP 36; O2SAT 99
[2023-03-03] MEDS: Acetaminophen 325 MG Tablet 650 MG PO ×2 (16:19→21:46)
[2023-03-03] MEDS: Senna/Docusate Sodium 1 Tablet GT (21:48)
[2023-03-04] MEDS: Carbidopa/Levodopa 25/100 Tablet GT ×4 (05:56→21:58)
[2023-03-04] MEDS: Pantoprazole Sodium 40 MG Tablet PO ×2 (05:56→16:35)
[2023-03-04] MEDS: Tolterodine Tartrate 4 MG CAP.SA PO (09:01)
[2023-03-04] MEDS: Baclofen 10 MG Tablet 5 MG GT ×2 (09:02→21:57)
[2023-03-04] MEDS: Amantadine 100 MG Capsule GT (09:03)
[2023-03-04] MEDS: Jevity 1.5. 1,000 ML Bottle 350 ML GT ×4 (09:14→22:36)
--- NOTE | 2023-03-04 09:31 | NURSING ---
PEG PLACEMENT VERIFIED, 0 RESIDUAL. JEVITY AND FLUSH GIVEN. PT TOLERATED WELL.
[2023-03-04] MEDS: Vibegron 75 MG TABLET PO (13:14)
[2023-03-04 14:00] VITALS: BP 146/85; PULSE 84; RESP 16; TEMP 36.8; O2SAT 97
--- NOTE | 2023-03-04 14:03 | CHAPLAIN ---
Type of Pastoral Visit _x__ Initial Visit ___ Follow-up Visit ___ On-call Visit ___ General Patient Visit ___ Spiritual Assessment ___ Family Conference ___ Bereavement ___ Rapid Response ___ Code Blue ___ Other (describe below) Pastoral Care Referral From _x__ Patient ___ Family ___ Nurse ___ Physician ___ Field Service Manager ___ Environmental Web Crawler ___ Other (describe below) Sacrament/Intervention _x__ Active listening ___ Anointing ___ Anabaptism ___ Bereavement ___ Communion ___ [place] exploration ___ ___ Life review _x__ Prayer ___ Reconciliation ___ Sacrament of Sick ___ Supportive presence ___ Wedding ___ Other (describe below) Pastoral Comments patient remembers this muffle operator and is welcoming; pt states that his was not able to care for him at home; pt is not distressed to be back at [facility] but acknowledges need to made adjustments;
[2023-03-04 14:37] VITALS: BMI 19.1
[2023-03-04] MEDS: Acetaminophen 325 MG Tablet 650 MG PO ×2 (16:34→22:25)
--- NOTE | 2023-03-04 18:34 | NURSING ---
0 RESIDUAL FOR LUNCH AND SUPPER. PT TOLERATED JEVITY AND FLUSH WELL.
[2023-03-04] MEDS: Senna/Docusate Sodium 1 Tablet GT (21:57)
[2023-03-05] MEDS: Pantoprazole Sodium 40 MG Tablet PO ×2 (05:34→16:34)
[2023-03-05] MEDS: Carbidopa/Levodopa 25/100 Tablet GT ×4 (05:35→22:23)
[2023-03-05] MEDS: Baclofen 10 MG Tablet 5 MG GT ×2 (08:53→22:24)
[2023-03-05] MEDS: Tolterodine Tartrate 4 MG CAP.SA PO (08:53)
[2023-03-05] MEDS: Polyethylene Glycol 3350 17 GM PACKET PO (08:53)
[2023-03-05] MEDS: Amantadine 100 MG Capsule GT (08:53)
[2023-03-05] MEDS: Senna/Docusate Sodium 1 Tablet GT ×2 (08:53→22:23)
[2023-03-05] MEDS: Jevity 1.5. 1,000 ML Bottle 350 ML GT ×4 (09:52→22:43)
--- NOTE | 2023-03-05 12:41 | CASEMGMT ---
Addendum entered by Farrah Henley 03/07/23 16:08: SW left VM with that [facility] is denying d/t no beds and not accepting MCDP. Requested additional SNF choices. SW spoke with to update on above. Pt stated he wants to go home. SW reiterated recommendation of IDT for SNF. Requested attend therapy training on taylor. Pt denied stated their house could not accommodate a taylor. SW inquired how pt would function safely at home. Pt did not provide an answer. SW offered to revisit with IDT but encouraged pt to discuss DC options again with . Pt agreed. Original Note: Social Work IDT met with patient and for care plan meeting. Discussed patient's progress in PT/OT/ST/SN. Educated to Medicare benefit and copay coverage. IDT noted pt is at baseline from when pt DCd from previous [facility] stay and is recommending a SNF or for to complete taylor therapy training for home. SW broached topic with pt about when pt felt he could not go home, as discussed at admission assessment. Pt agreed he is at a LOC where he cannot go home. SW commended for pt having good insight and offered to assist with SNF planning. Explained the goal is for DC within the next two weeks. Pt/ agreed. SW inquired about SNF preference and offered a list with quality and resource data via [employer]. stated they have reviewed plenty of lists and prefer [facility]. SW agreed to place referral. Educated to financial liability and part B therapies. was unaware of OOP cost, but pt stated he was aware. Pt/ agreed they cannot pay OOP. SW inquired about finances for Medicaid purposes. Pt may need a QIT but assets are under resource limit. Both agreed to [facility] application and [facility] referral. SW sent referral via secure email to [facility]. Sent referral to [facility] via [employer]. Will continue to follow for DC planning. Farrah Henley, IRMA BLUE LINE TRIMMER
[2023-03-05] MEDS: Acetaminophen 325 MG Tablet 650 MG PO ×2 (13:28→18:31)
[2023-03-05] MEDS: Vibegron 75 MG TABLET PO (13:28)
[2023-03-05 14:00] VITALS: BP 136/86; PULSE 93; RESP 18; TEMP 36.8; O2SAT 97
--- NOTE | 2023-03-05 15:15 | CHAPLAIN ---
Type of Pastoral Visit ___ Initial Visit _x__ Follow-up Visit ___ On-call Visit ___ General Patient Visit ___ Spiritual Assessment ___ Family Conference ___ Bereavement ___ Rapid Response ___ Code Blue ___ Other (describe below) Pastoral Care Referral From _x__ Patient ___ Family ___ Nurse ___ Physician ___ Foundry Laborer Coreroom ___ Head Strength And Conditioning Coach ___ Other (describe below) Sacrament/Intervention _x__ Active listening ___ Anointing ___ Religion ___ Bereavement ___ Communion _x__ [place] exploration ___ _x__ Life review _x__ Prayer ___ Reconciliation ___ Sacrament of Sick _x__ Supportive presence ___ Wedding ___ Other (describe below) Pastoral Comments sat at bedside with the patient for a long visit; pt had his care conference today and admitted to feelings of discouragement and depression; pt states that for years I have done everything to keep Parkinson disease from growing worse and now the shit has hit the fan ; pt states that DR and care team thinks he needs to go to a SNF for rest of his life and he just wants to go home; pt says that his is supportive and wants him home too but we are not spring chickens either ; pt has spiritual questions and doubts that he addresses in this conversation too; pt has been guided by his Spiritism carolina but now questions of that carolina and a good God are evident; pt expresses his thoughts and feelings well; pt is limited in life due to his body which does not cooperate anymore; pt asks for future visits and welcomes presence and prayer support for today
[2023-03-06] MEDS: Pantoprazole Sodium 40 MG Tablet PO ×2 (05:52→16:47)
[2023-03-06] MEDS: Carbidopa/Levodopa 25/100 Tablet GT ×4 (05:52→21:57)
[2023-03-06] MEDS: Jevity 1.5. 1,000 ML Bottle 350 ML GT ×4 (09:39→21:59)
[2023-03-06] MEDS: Senna/Docusate Sodium 1 Tablet GT ×2 (09:54→21:58)
[2023-03-06] MEDS: Tolterodine Tartrate 4 MG CAP.SA PO (09:54)
[2023-03-06] MEDS: Baclofen 10 MG Tablet 5 MG GT ×2 (09:54→21:57)
[2023-03-06] MEDS: Amantadine 100 MG Capsule GT (09:55)
[2023-03-06] MEDS: Menthol/Lanolin/Calamine/Znox 113 GM Tube 1 APPLIC TOPICAL ×2 (10:06→21:59)
[2023-03-06 10:40] VITALS: PULSE 71; RESP 18; O2SAT 95
[2023-03-06] MEDS: Acetaminophen 325 MG Tablet 650 MG PO ×3 (11:51→21:55)
[2023-03-06 14:00] VITALS: BP 167/87; PULSE 92; RESP 18; TEMP 36.5; O2SAT 98
[2023-03-06] MEDS: Vibegron 75 MG TABLET PO (14:23)
--- NOTE | 2023-03-06 16:05 | CASEMGMT ---
Social Work BIMS () and PHQ-2 () completed for MDS assessment. Farrah Henley MSW FEATHER CUTTING MACHINE FEEDER
[2023-03-07 06:00] LABS: Absolute Lymphocyte Count 2.45 X10^3/uL (0.83-4.51); Basophil# 0.11 X10^3/uL; Basophil% 0.8 % (0-1); Eosinophil# 0.37 X10^3/uL; Eosinophils% 2.8 % (0-5); Hematocrit 40.6 % (40-54); Hemoglobin 12.8 g/dL (13.0-16.5); Lymphocyte # 2.45 X10^3/ul (0.83-4.51); Lymphocyte % 18.8 % (19-41); Mean Corp Hgb Conc 31.5 g/dL (32-36); Mean Corpuscular Hgb 30.8 pg (27.0-32.0); Mean Corpuscular Volume 97.8 fL (80-94); Mean Platelet Vol. 11.2 fl (6.2-12.0); Monocyte# 1.09 X10^3/uL; Monocyte% 8.4 % (0-10); NRBC Flagged by Analyzer 0 % (0-5); Neutrophil # 8.96 X10^3/uL (2.7-7.7); Neutrophil % 68.7 % (47-70); Platelet Count 329 K/mm3 (150-450); RBC Distribution Width CV 14.9 % (11.6-14.6); RBC Distribution Width SD 53.7 fl (35.1-43.9); Red Blood Count 4.15 M/mm3 (4.6-6.2); White Blood Count 13.1 K/mm3 (4.4-11.0)
[2023-03-07 06:30] LABS: Anion Gap 3 (5-15); BUN 29 mg/dL (7-18); BUN/Creat Ratio 32.5 RATIO (10-20); Calcium,Total 9.3 mg/dL (8.5-10.1); Chloride 104 mmol/L (98-107); Creatinine, Serum 0.89 mg/dL (0.70-1.30); EST Glomerular Filtration Rate 89 mL/min (>60); Est Glom Filt Rate - Afr Amer 107 mL/min (>60); Estimated Creatinine Clearance 56.72 ml/min; Glucose 94 mg/dL (74-106); Potassium 4.1 mmol/L (3.5-5.1); Sodium Level 138 mmol/L (136-145)
[2023-03-07] MEDS: Baclofen 10 MG Tablet 5 MG GT ×4 (06:39→23:18)
[2023-03-07] MEDS: Pantoprazole Sodium 40 MG Tablet PO ×2 (06:39→15:18)
[2023-03-07] MEDS: Carbidopa/Levodopa 25/100 Tablet GT ×4 (06:40→23:19)
[2023-03-07] MEDS: Jevity 1.5. 1,000 ML Bottle 350 ML GT ×4 (09:26→23:40)
[2023-03-07] MEDS: Tolterodine Tartrate 4 MG CAP.SA PO (09:29)
[2023-03-07] MEDS: Amantadine 100 MG Capsule GT (09:29)
--- NOTE | 2023-03-07 09:39 | NURSING ---
Electronic Data Processing Auditor Note: MDS for 03/06/2023 Complete
[2023-03-07] MEDS: Menthol/Lanolin/Calamine/Znox 113 GM Tube 1 APPLIC TOPICAL ×2 (10:05→23:15)
[2023-03-07] MEDS: Tuberculin,Purif.prot.deriv. 50 TU/ML Vial 0.100000000000000006 ML ID (12:37)
[2023-03-07 14:00] VITALS: BP 136/80; PULSE 85; RESP 16; TEMP 36.2; O2SAT 98
[2023-03-07] MEDS: Vibegron 75 MG TABLET PO (15:18)
[2023-03-07] MEDS: Senna/Docusate Sodium 1 Tablet GT (23:18)
[2023-03-08] MEDS: Baclofen 10 MG Tablet 5 MG GT ×4 (05:47→22:24)
[2023-03-08] MEDS: Pantoprazole Sodium 40 MG Tablet PO ×2 (05:47→17:02)
[2023-03-08] MEDS: Carbidopa/Levodopa 25/100 Tablet GT ×4 (05:47→22:24)
[2023-03-08] MEDS: Jevity 1.5. 1,000 ML Bottle 350 ML GT ×4 (09:36→22:47)
[2023-03-08] MEDS: Menthol/Lanolin/Calamine/Znox 113 GM Tube 1 APPLIC TOPICAL ×2 (09:50→22:48)
[2023-03-08] MEDS: Amantadine 100 MG Capsule GT (09:51)
[2023-03-08] MEDS: Tolterodine Tartrate 4 MG CAP.SA PO (09:51)
[2023-03-08 14:00] VITALS: BP 128/72; PULSE 86; RESP 17; TEMP 36.7; O2SAT 99
[2023-03-08] MEDS: Vibegron 75 MG TABLET PO (14:41)
[2023-03-08] MEDS: Senna/Docusate Sodium 1 Tablet GT (22:25)
[2023-03-09] MEDS: Pantoprazole Sodium 40 MG Tablet PO ×2 (05:45→16:15)
[2023-03-09] MEDS: Carbidopa/Levodopa 25/100 Tablet GT ×4 (05:46→22:36)
[2023-03-09] MEDS: Baclofen 10 MG Tablet 5 MG GT ×4 (05:46→22:35)
[2023-03-09] MEDS: Amantadine 100 MG Capsule GT (08:16)
[2023-03-09] MEDS: Tolterodine Tartrate 4 MG CAP.SA PO (08:16)
[2023-03-09] MEDS: Menthol/Lanolin/Calamine/Znox 113 GM Tube 1 APPLIC TOPICAL ×2 (08:17→22:38)
[2023-03-09] MEDS: Jevity 1.5. 1,000 ML Bottle 350 ML GT ×3 (08:17→22:39)
[2023-03-09] MEDS: Vibegron 75 MG TABLET PO (13:13)
[2023-03-09 14:00] VITALS: BP 118/77; PULSE 96; RESP 17; TEMP 36.7; O2SAT 98
[2023-03-09] MEDS: Senna/Docusate Sodium 1 Tablet GT (22:35)
--- NOTE | 2023-03-09 22:57 | NURSING ---
At 2129 this nurse heard HIP HOP PERFORMERS call out for help that patient was on the floor. Upon entering the room patient was on floor on the right side of bed with feet towards the head of the bed and holding onto bed rail. Patient denies hitting head and denies any pain. When asked what patient was trying to do, he stated that he was leaning to the right and his weight shifted. States that he was not trying to reach for anything but was simply just leaning over. Vital signs were taken and they were 147/92, HR 105, Respirations 18, SpO2 98% on room air. Patient was then lifted back to bed with assist of 4 staff members without incident. No injuries were noted and Dr. Swann was notified at 2142 with no new orders given, was called at 2139 but did not answer. Patient is now resting comfortably in bed with call light within reach and camera is on with patient in view.
[2023-03-10] MEDS: Pantoprazole Sodium 40 MG Tablet PO ×2 (05:52→17:23)
[2023-03-10] MEDS: Carbidopa/Levodopa 25/100 Tablet GT ×4 (05:52→22:25)
[2023-03-10] MEDS: Baclofen 10 MG Tablet 5 MG GT ×4 (05:52→22:27)
[2023-03-10] MEDS: Menthol/Lanolin/Calamine/Znox 113 GM Tube 1 APPLIC TOPICAL ×2 (08:48→22:24)
[2023-03-10] MEDS: Polyethylene Glycol 3350 17 GM PACKET PO (08:49)
[2023-03-10] MEDS: Tolterodine Tartrate 4 MG CAP.SA PO (08:49)
[2023-03-10] MEDS: Amantadine 100 MG Capsule GT (08:50)
[2023-03-10] MEDS: Jevity 1.5. 1,000 ML Bottle 350 ML GT ×4 (08:56→22:37)
--- NOTE | 2023-03-10 13:02 | MDS.RN ---
Information for the mds was obtained from review of the clinial record, interview of resident, staff, and direct observation of resident's care.
[2023-03-10] MEDS: Vibegron 75 MG TABLET PO (13:16)
[2023-03-10 14:00] VITALS: BP 144/84; PULSE 91; RESP 16; TEMP 36.8; O2SAT 99
--- NOTE | 2023-03-10 15:37 | CASEMGMT ---
Addendum entered by Farrah Henley 03/10/23 16:33: Received return call from . confirmed a taylor cannot fit in the home and and grandson were doing SPTs prior, ensuring this worker pt was not in bed the whole time prior. explained pt is concerned about the QIT with [facility] and not being able to cover the home costs without pt's income support. SW reiterated [facility]'s spousal allowance program. expressed understanding and stated she has a call out to Karina, the [facility], for clarification as well. SW suggested still attending therapy training and also reviewing other SNFs for referrals. agreed and scheduled training for 03/14 at 1330, and will notify this worker of other SNF preferences. SW explained DC date will be 03/19. agreeable. SW appreciative and updated IDT. Will continue to follow. Original Note: Social Work SW left VM with requesting a call back to discuss DC plans. Farrah Henley, IRMA BUILDING SERVICES ENGINEER
--- NOTE | 2023-03-10 16:37 | NURSING ---
FEES test completed today. NNO at this time.
[2023-03-10 19:52] VITALS: PULSE 86; RESP 16; O2SAT 98
[2023-03-10] MEDS: Senna/Docusate Sodium 1 Tablet GT (22:29)
[2023-03-11] MEDS: Baclofen 10 MG Tablet 5 MG GT ×4 (06:17→22:25)
[2023-03-11] MEDS: Carbidopa/Levodopa 25/100 Tablet GT ×4 (06:17→22:25)
[2023-03-11] MEDS: Pantoprazole Sodium 40 MG Tablet PO ×2 (06:17→16:12)
[2023-03-11] MEDS: Polyethylene Glycol 3350 17 GM PACKET PO (08:57)
[2023-03-11] MEDS: Tolterodine Tartrate 4 MG CAP.SA PO (08:57)
[2023-03-11] MEDS: Amantadine 100 MG Capsule GT (08:58)
[2023-03-11] MEDS: Jevity 1.5. 1,000 ML Bottle 350 ML GT ×4 (09:10→22:26)
[2023-03-11 09:40] VITALS: BMI 19.2
--- NOTE | 2023-03-11 10:49 | NURSING ---
Ankle/brachial index cancelled per Dr. Mohan office and will be completed as outpatient. Patient to be made aware.
[2023-03-11] MEDS: Menthol/Lanolin/Calamine/Znox 113 GM Tube 1 APPLIC TOPICAL ×2 (11:27→22:25)
[2023-03-11] MEDS: Vibegron 75 MG TABLET PO (13:31)
[2023-03-11 14:00] VITALS: BP 116/72; PULSE 88; RESP 12; TEMP 36.7; O2SAT 98
--- NOTE | 2023-03-11 16:07 | CHAPLAIN ---
Type of Pastoral Visit ___ Initial Visit _x__ Follow-up Visit ___ On-call Visit ___ General Patient Visit ___ Spiritual Assessment ___ Family Conference ___ Bereavement ___ Rapid Response ___ Code Blue ___ Other (describe below) Pastoral Care Referral From _x__ Patient ___ Family ___ Nurse ___ Physician ___ Electronic Sensing Equipment Assembler ___ Abstract Searcher ___ Other (describe below) Sacrament/Intervention _x__ Active listening ___ Anointing ___ Sikh ___ Bereavement ___ Communion ___ [place] exploration ___ _x__ Life review _x__ Prayer ___ Reconciliation ___ Sacrament of Sick _x__ Supportive presence ___ Wedding ___ Other (describe below) Pastoral Comments lots of topics covered with this patient including his feelings on his admission and progress and future; pt talks about his early life and family history; pt is asked about his interests and pastimes; 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
--- NOTE | 2023-03-11 16:17 | NURSING ---
Dr. Mohan office call and ask if Dr. Mohan able to see patient this afternoon in room. Ankle/brachial index done in patient room at 1400 instead of outpatient.
--- NOTE | 2023-03-11 16:52 | HP.SPFEES ---
FEES Patient Information Date of Evaluation: 03/10/23 Time of Evaluation: 10:10 DIAGNOSIS:: dysphagia Referring Physician: Freddy Swann Chi Staff Providing this Care/Treatment:: ANSELMO Direct Billable Minutes: 31 Subjective: Subjective:: Pt was seen for a FEES upright in his chair. Pt was agreeable to the procedure. Current Diet: Drinks/Liquids:: Thin Foods:: Soft & bite size NPO:: gastrotomy Medication Administration:: orally Comment:: Pt's primary form of nutrition is feedings from a PEG tube with pleasure feedings of soft & bite sized. Respiratory Status: Observation:: 98 spO2 Dentation/Oral Hygiene: Observations:: fair Vocal Quality: Observations:: Breathy Cognition: Observations:: WNL Dysphagia: TX/DX History:: Yes and MBSS Fiberoptic Endoscope: Size: 3.4 mm Nare:: Right Comments: The 3.4 mm scope was passed through the right nare after the nose was cleared of dried, hardened nasal mucus Position During FEES: Position During FEES:: Upright Location: In Chair Anatomy: + Velopharyngeal Port Observations Movement: Yes and Symmetrical +Nasopharynx Observations Tissue Description: Talley red and Dry Location: Diffuse +Oropharynx Observations: Tissue Description: Moist and Talley red Location: Diffuse +Hypopharynx Observation: Tissue Description: Moist and Talley red Location: Diffuse Secretions: Description:: Thick, Yellow and White Comment:: dried nasal mucus. Location:: Oropharynx, Hypopharynx and Diffuse Comment:: Provided ice chips and thin ice water to help clear secretions. Secretions diffuse around the pharynx and on the anterior, superior surface of the vocal cords. Concerns of poor management of secretions. Phonation: Arytenoid Adduction & Abduction: Arytenoid adduction and abduction was elicited via vocal tasks. Bowing on both vocal cords was observed and pt was unable to elicit complete closure of the vocal cords. The vocal cords and arytenoids were talley red and swollen Vocal Folds:: Bowed Penetration-Aspiration Scale Penetration-Aspiration Scale Swallowing: :: Poor pharyngeal constriction during swallow with all solid and liquid P.O. trials, observed via pink out and green out during the swallow instead of a complete white out phase. Poor base of tongue retraction with solid P.O. trials noted due to mod to max residue remaining in the vallecula and base of tongue. Initiation:: Base of tongue and Vallecula Swallowing Trials: Swallowing Trials Results Below: Thin Liquid: Trial 1: water Administered:: via a straw Aspiration: No - aspiration Residue: Yes Residue Location: Residue Location Vallecula PAS Score: PAS Score *1 Trial 2: soda Administered:: via a straw Aspiration: No - aspiration Residue: No PAS Score: PAS Score *1 Trial 3: pills with thin liquid Aspiration: No - aspiration Residue: Yes PAS Score: PAS Score *1 Puree Texture: Trial 1: apple sauce Administered:: via a teaspoon Aspiration: No - aspiration Residue: Yes Residue Location: Residue Location Vallecula PAS Score: PAS Score *1 Trial 2: apple sauce Administered:: via a teaspoon Strategy: Double Swallow and Liquid Wash Aspiration: No - aspiration Residue: No PAS Score: PAS Score *1 Minced & Moist Texture: Trial 1: cookie in apple sauce Administered:: via a teaspoon Aspiration: No - aspiration Residue: Yes Residue Location: Residue Location Vallecula Trial 2: cookie in apple sauce Administered:: via a teaspoon Strategy: Double Swallow and Liquid Wash Aspiration: No - aspiration Residue: No Regular Texture: Trial 1: cookie Aspiration: Yes - aspiration and Jeffrey - aspiration Residue: Yes Residue Location: Residue Location Laryngeal Vestibule PAS Score: PAS Score *8 Trial 2: cookie Strategy: Double Swallow and Liquid Wash Aspiration: Yes - aspiration and Jeffrey - aspiration Residue: Yes Residue Location: Residue Location Laryngeal Vestibule PAS Score: PAS Score *8 Trial 3: cookie Strategy: Double Swallow, Liquid Wash and Cough After Swallow Residue: No Result: During trials of Neris Doone, a piece of the cookie entered the airway below the vocal cords. When cued to cough by the STEWARD RACETRACK and reswallow, the piece of the cookie was no longer observed in the airway. However, unable to reliably confirm ejection of the P.O. from the airway due to blocked visual field from excess thick mucus secretions on the scope. Strategies Comments:: Pt greatly benefited from using a double swallow and liquid wash after every bite of solid P.O.. Pt had mod to max residue with puree and minced and moist, which he was able to clear when he utilized these strategies. Pt was coached by the STEWARD RACETRACK during the evaluation to utilize these strategies and would benefit from additional instruction to ensure implementation of these compensatory strategies. Recommendations: Recommended Diet Grade & Liquid Drinks/Liquids:: Thin Foods:: Minced & Moist NPO: Consult physician and dietitian to determine dosage of PEG feedings needed to supplement P.O. intake to facilitate an appropriate body weight and nutritional intake Medication Administration:: orally Comment: Concerns of poor secretion management noted. ST recommends ice chips throughout the day and prior to all solid P.O. to help pt clear thick secretions from the airway. Supervision/Cues: 1 on 1 Recommended Compensatory Strategies: ice chips before P.O. and throughout the day to manage secretions, double swallow, liquid wash after EVERY bite of solid P.O. Recommend Repeat Fiberoptic Endoscopic Evaluation of Swallowing: No Comment: unless status changes or for diet upgrades Prognosis: Prognosis: Good Frequency: Frequency: 3-5x per week Education: Education Completed: 1. Described result of evaluation. and 2. Pt understands evaluation & agrees with goals and treatment plan.
[2023-03-12] MEDS: Pantoprazole Sodium 40 MG Tablet PO ×2 (05:30→16:06)
[2023-03-12] MEDS: Carbidopa/Levodopa 25/100 Tablet GT ×4 (05:31→22:01)
[2023-03-12] MEDS: Baclofen 10 MG Tablet 5 MG GT ×4 (05:31→22:01)
[2023-03-12] MEDS: Menthol/Lanolin/Calamine/Znox 113 GM Tube 1 APPLIC TOPICAL ×2 (08:33→22:28)
[2023-03-12] MEDS: Tolterodine Tartrate 4 MG CAP.SA PO (08:34)
[2023-03-12] MEDS: Amantadine 100 MG Capsule GT (08:35)
[2023-03-12] MEDS: Jevity 1.5. 1,000 ML Bottle 350 ML GT ×4 (08:36→22:22)
[2023-03-12 08:54] VITALS: BP 132/82; PULSE 60; RESP 16; TEMP 36.8; O2SAT 98
[2023-03-12] MEDS: Vibegron 75 MG TABLET PO (13:39)
[2023-03-12 14:00] VITALS: BP 127/80; PULSE 84; RESP 18; TEMP 36.6; O2SAT 99
--- NOTE | 2023-03-12 16:13 | CASEMGMT ---
Addendum entered by Farrah Henley 03/17/23 12:13: SW messaged [facility] for update on referral. After speaking with , [facility] is able to accept. Addendum entered by Farrah Henley 03/14/23 16:40: SW followed up with pt after family training about [facility]. Pt stated is going to call [facility] to work on them . SW stressed Friday a [facility] agency will need to accept to prepare for DC. Pt expressed understanding. Pt also requesting 3-in-1 commode. SW agreed. [place] [facility] [place] [facility]. Addendum entered by Farrah Henley 03/14/23 11:59: SW scheduled cot transport through [facility] at 1100 on 03/19. Addendum entered by Farrah Henley 03/14/23 11:56: [facility] is unable to accept d/t high LOC. SW phoned to inquire about new agency. agreed to printed list of skilled C agencies in area with quality and resource data via [employer] Guide. SW also inquired about transport home [place] and transport once home to [facility] app - offered resources. agreed and requesting cot transport at [place] and the w/c resources for home. SW provided printed list of HHC agencies and transportation resources in pts room. to retrieve this afternoon during therapy training. Addendum entered by Farrah Henley 03/13/23 10:49: Pt agreed to ST at [place] for voice. SW added to referral. Original Note: Social Work SW spoke with pt to follow up on DC plans and issue NOMNC. YONATHAN explained EAMON spousal allowance and informed pt, this worker is communicating with [facility] to get further details. SW inquired about DC plans. Pt stated regardless of EAMON, he would like to go home. SW cautioned IDTs recommendations are SNF placement. Pt acknowledged and would like to go home one more time, then knows he could potentially have EAMON for SNF placement in the future. SW confirmed. Inquired about coordinating [facility] at [place]. Pt confirmed and has no other DME needs. SW to schedule transport at [place]. SW sent referral to [facility] for PT/OT/SN/SW via [employer]. 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
--- NOTE | 2023-03-12 19:24 | DS.PCM_ITS ---
Providers Date of Admission: 02/27/23 Primary Care Physician: Dr. Nico Schmidt MD Reason For Visit: DEBILITY Diagnosis Discharge Diagnosis (1) Debility: Status: Acute Code(s): R53.81 - Other malaise (2) Failure to thrive: Status: Acute (3) Parkinson disease: Status: Acute Code(s): G20 - Parkinson's disease Qualifiers: Dyskinesia presence: with dyskinesia Fluctuating manifestations: unspecified whether manifestations fluctuate Qualified Code(s): G20.B1 - Parkinson's disease with dyskinesia, without mention of fluctuations (4) Overactive bladder: Status: Acute Code(s): N32.81 - Overactive bladder (5) HTN (hypertension): Status: Chronic Code(s): I10 - Essential (primary) hypertension Qualifiers: Hypertension type: essential hypertension Qualified Code(s): I10 - Essential (primary) hypertension (6) GERD (gastroesophageal reflux disease): Status: Acute Code(s): K21.9 - Gastro-esophageal reflux disease without esophagitis Plan 72 year old male with stage 5 Parkinson Disease, admitted to TCU with debility, failure to thrive, here for rehabilitation, strengthening, prior to disposition determination. * Debility - PT/OT. * Dysphagia - ST. * Pain - Tylenol 650mg q6 prn pain (1-10). * Bowel - Miralax 17gm daily, senna/colace 1 tablet bid. * Adult immunization - Administer pneumonia vaccine, covid vaccine, flu vaccine as appropriate. * DVT prophylaxis - Hold. * Parkinson Disease - Amantadine 100mg daily, Azilect 1mg daily, Sinemet 25/100mg 2 tablets tidac, 1.5 tablet qhs. * Muscle spasm - Baclofen 5mg bid. * Hypertension - Hydralazine 10mg tid prn. * Nutrition - Jevity 1.5 350ml tidpc, 350ml 2000. * GERD - Pantoprazole 40mg bid. * Overactive bladder - Tolterodine 4mg daily, Gemtasa 75mg daily. Medications at Discharge Home Medications amantadine HCl 100 mg capsule 100 mg PO DAILY PD 11/16/20 rasagiline 1 mg tablet 1 mg PO DAILY PARKINSONS 11/16/20 hydralazine 10 mg tablet 10 mg PO TID PRN systolic bp greater than 190 01/14/23 mirabegron 50 mg tablet,extended release 24 hr (Myrbetriq) 50 mg PO DAILY@1400 O AB 01/14/23 pantoprazole 40 mg tablet,delayed release (Protonix) 40 mg PO BID@0600,1600 gerd 01/14/23 polyethylene glycol 3350 17 gram/dose oral powder (Miralax) 17 g PO DAILY constipation 01/14/23 sennosides 8.6 mg-docusate sodium 50 mg tablet (Senna-Time S) 1 tab-cap PO BID constipation 01/14/23 solifenacin 10 mg tablet 10 mg PO DAILY OAB 01/14/23 carbidopa 25 mg-levodopa 100 mg tablet 2 tab feeding tube TID Parkinson 02/27/23 baclofen 10 mg tablet 5 mg (1/2 x 10 mg) G-tube 4X/DAY 30 days #60 tabs 03/12/23 carbidopa 25 mg-levodopa 100 mg tablet 1.5 tab G-tube QHS #0 tabs 03/12/23 lactose-reduced food with fiber 0.06 gram-1.5 kcal/mL oral liquid (Jevity 1.5 Chato) 350 ml G-tube 2200 #0 mL 03/12/23 lactose-reduced food with fiber 0.06 gram-1.5 kcal/mL oral liquid (Jevity 1.5 Chato) 350 ml G-tube TIDPC #0 mL 03/12/23 Hospital Course Operations None Procedures None Summary of Care Provided Minutes Spent on Discharge: 35 Hospital Course: 72 year old male with stage 5 Parkinson Disease, admitted to TCU with debility, failure to thrive, here for rehabilitation, strengthening, prior to disposition determination. 03/11/2023 RFANK doppler of legs NORMAL. 03/11/2023 FEES Recommendations: Recommended Diet Grade & Liquid Drinks/Liquids:: Thin Foods:: Minced & Moist Resident knows risk of aspiration, , requested regular diet. Discharge home with and grandsons 03/19/2023, [facility] PT/OT/SN/SW. Physical Exam Const alert General Appearance: cooperative HEENT normocephalic Eyes PERRL and EOMs intact bilaterally Neck supple, no JVD and no carotid bruits Resp normal respiratory effort, normal air movement and clear to auscultation bilaterally Cardio regular rate and regular rhythm GI normal to inspection, nondistended, normoactive bowel sounds, non-tender and non-distended GI Narrative: PEG. Extremity normal capillary refill General Extremity: Negative for edema Skin no rashes or lesions noted General Skin Exam: no breakdown Psych affect normal Appearance: appropriate Medical Records Data Medical Nutrition Assessment Dietitian: Malnutrition Criteria Met Start: 02/27/23 16:02 Freq: Status: Active Protocol: Document 03/05/23 12:28 SLA (Rec: 03/05/23 12:28 SLA Desktop) Nutrition Malnutrition Evidence of Malnutrition Exists Yes Malnutrition (severe): Chronic Evidenced By Suboptimal Energy Intake ( Severe),Weight Loss (Severe), Physical Changes (Severe) Clinical Problem Chronic Disease or Condition Related Malnutrition Etiology chronic, severe malnutrition related to inadequate energy intake d/t swallowing difficulty, Parkinsons Signs/Symptoms as evidenced by estimated energy intake meeting <75% of estimated energy needs > 3 months, severe muscle wasting/ fat loss evident per physical exam in orbital, clavicle, acromion, and temporal areas; 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 Continue regular diet w/ modified consistency diet per CYLINDER BATCHER rec - monitor ability to adjust TF if po intake improves. Weight / BMI Weight Weight: 55.61 kg Body Mass Index (BMI) 19.2 ABG / Lab / Microbiology Data 03/07/23 05:21 03/07/23 05:21 Microbiology: Microbiology 03/04/23 06:11 Nasal Secretion SARS-CoV-2 Antigen (Rapid) - Final 02/27/23 15:30 Nasal Secretion SARS-CoV-2 Antigen (Rapid) - Final D/C Instructions Discharge Diet: No restrictions Discharge Activity: Return to Normal Activity, May Shower and Use Walker Weight Bearing Status: Weight bearing as tolerated Call your doctor if you observe: Fever of 101 or Higher, Inability to urinate, Inability to have a bowel movement, Shortness of breath, Dizziness, Fainting spells, Swelling in the ankles, Chest pain and Uncontrolled pain Additional Instructions: Discharge home with and grandsons 03/19/2023, [facility] PT/OT/SN/SW. Meaningful Use Info Meaningful Use Diagnoses (Choose all that apply): None applicable Discharge Plan Admission Admit Date/Time: 02/27/23 13:29 Primary Reason for Your Visit: Debility. Attending Provider: Freddy Swann Chi Primary Care Provider: Nico Schmidt Instructions Additional Instructions / Restrictions: Discharge home with and grandsons 03/19/2023, [facility] PT/OT/SN/SW. Discharge Orders/Prescriptions Prescriptions: New baclofen 10 mg Tablet 5 mg G-tube 4X/DAY 30 Days Qty: 60 0RF carbidopa-levodopa 25-100 mg Tablet 1.5 tab G-tube QHS Qty: 0 0RF Jevity 1.5 Chato 0.06 gram-1.5 kcal/mL Liquid 350 ml G-tube TIDPC Qty: 0 0RF Jevity 1.5 Chato 0.06 gram-1.5 kcal/mL Liquid 350 ml G-tube 2200 Qty: 0 0RF Continued amantadine HCl 100 mg capsule 100 mg PO DAILY Patient Comments: rasagiline 1 mg tablet 1 mg PO DAILY Patient Comments: Myrbetriq 50 mg tablet extended release 24 hr 50 mg PO DAILY@1400 Patient Comments: TAKE 1 TABLET BY MOUTH EVERY DAY solifenacin 10 mg tablet 10 mg PO DAILY Patient Comments: TAKE 1 TABLET BY MOUTH EVERY DAY hydralazine 10 mg tablet 10 mg PO TID PRN (Reason: systolic bp greater than 190) Rx Instructions: until target blood pressure attained pantoprazole [Protonix] 40 mg tablet,delayed release (DR/EC) 40 mg PO BID@0600,1600 polyethylene glycol 3350 [Miralax] 17 gram/dose powder 17 g PO DAILY sennosides-docusate sodium [Senna-Time S] 8.6-50 mg tablet 1 tab-cap PO BID carbidopa-levodopa 25-100 mg tablet 2 tab feeding tube TID Discontinued acetaminophen 325 mg tablet 650 mg PO Q4H PRN (Reason: pain) Rytary 36.25-145 mg capsule, extended release 3 cap PO DAILY@0800 Hold Instructions: not available on unit Rytary 36.25-145 mg capsule, extended release 4 cap PO 1200,1700 Hold Instructions: not available on unit Rytary 36.25-145 mg capsule, extended release 1 cap PO QHS Hold Instructions: not available on unit baclofen 10 mg Tablet 5 mg G-tube BID Qty: 60 0RF Jevity 1.5 Chato 0.06 gram-1.5 kcal/mL Liquid 200 ml G-tube DAILY@0600 Qty: 6000 0RF Jevity 1.5 Chato 0.06 gram-1.5 kcal/mL Liquid 300 ml G-tube TIDPC Qty: 79764 0RF Jevity 1.5 Chato 0.06 gram-1.5 kcal/mL Liquid 300 ml G-tube HS Qty: 9000 0RF Referrals / Follow Up: Nico Schmidt MD [Primary Care Provider] - (Please schedule appt MAGGIE to follow [facility] orders - Farrah) Disposition Disposition (needs filled in before D/C Order can be placed): Home Health Servic e
[2023-03-13] MEDS: Pantoprazole Sodium 40 MG Tablet PO ×2 (05:53→15:53)
[2023-03-13] MEDS: Baclofen 10 MG Tablet 5 MG GT ×4 (05:53→22:48)
[2023-03-13] MEDS: Carbidopa/Levodopa 25/100 Tablet GT ×4 (05:53→22:49)
[2023-03-13] MEDS: Menthol/Lanolin/Calamine/Znox 113 GM Tube 1 APPLIC TOPICAL ×2 (09:01→22:48)
[2023-03-13] MEDS: Tolterodine Tartrate 4 MG CAP.SA PO (09:01)
[2023-03-13] MEDS: Amantadine 100 MG Capsule GT (09:02)
[2023-03-13] MEDS: Jevity 1.5. 1,000 ML Bottle 350 ML GT ×4 (09:02→22:47)
[2023-03-13] MEDS: Vibegron 75 MG TABLET PO (13:59)
[2023-03-13 14:00] VITALS: BP 134/73; PULSE 77; RESP 18; TEMP 36.1; O2SAT 98
[2023-03-13] MEDS: Senna/Docusate Sodium 1 Tablet GT (22:48)
[2023-03-14] MEDS: Carbidopa/Levodopa 25/100 Tablet GT ×4 (05:50→22:30)
[2023-03-14] MEDS: Pantoprazole Sodium 40 MG Tablet PO ×2 (05:50→17:23)
[2023-03-14] MEDS: Baclofen 10 MG Tablet 5 MG GT ×4 (05:50→22:29)
[2023-03-14 06:02] LABS: Absolute Lymphocyte Count 2.12 X10^3/uL (0.83-4.51); Absolute Neutrophil Count 3.1 X10^3/uL (2.0-7.7); Basophil# 0.09 X10^3/uL; Basophil% 1.4 % (0-1); Eosinophil# 0.34 X10^3/uL; Eosinophils% 5.2 % (0-5); Hematocrit 39.6 % (40-54); Hemoglobin 12.2 g/dL (13.0-16.5); Lymphocyte # 2.12 X10^3/ul (0.83-4.51); Lymphocyte % 32.3 % (19-41); Mean Corp Hgb Conc 30.8 g/dL (32-36); Mean Corpuscular Hgb 30.6 pg (27.0-32.0); Mean Corpuscular Volume 99.2 fL (80-94); Mean Platelet Vol. 11.9 fl (6.2-12.0); Monocyte# 0.88 X10^3/uL; Monocyte% 13.4 % (0-10); NRBC Flagged by Analyzer 0 % (0-5); Neutrophil # 3.11 X10^3/uL (2.7-7.7); Neutrophil % 47.4 % (47-70); Platelet Count 312 K/mm3 (150-450); RBC Distribution Width CV 14.6 % (11.6-14.6); RBC Distribution Width SD 53.2 fl (35.1-43.9); Red Blood Count 3.99 M/mm3 (4.6-6.2); White Blood Count 6.6 K/mm3 (4.4-11.0)
[2023-03-14 07:02] LABS: Anion Gap 4 (5-15); BUN 31 mg/dL (7-18); BUN/Creat Ratio 34.7 RATIO (10-20); Calcium,Total 9.2 mg/dL (8.5-10.1); Chloride 102 mmol/L (98-107); Creatinine, Serum 0.89 mg/dL (0.70-1.30); EST Glomerular Filtration Rate 88 mL/min (>60); Est Glom Filt Rate - Afr Amer 107 mL/min (>60); Estimated Creatinine Clearance 57.28 ml/min; Glucose 90 mg/dL (74-106); Sodium Level 136 mmol/L (136-145)
[2023-03-14] MEDS: Tolterodine Tartrate 4 MG CAP.SA PO (08:26)
[2023-03-14] MEDS: Amantadine 100 MG Capsule GT (08:26)
[2023-03-14] MEDS: Jevity 1.5. 1,000 ML Bottle 350 ML GT ×4 (08:27→22:29)
[2023-03-14] MEDS: Menthol/Lanolin/Calamine/Znox 113 GM Tube 1 APPLIC TOPICAL ×2 (08:27→22:29)
[2023-03-14] MEDS: Vibegron 75 MG TABLET PO (13:26)
[2023-03-14 14:00] VITALS: BP 139/77; PULSE 81; RESP 19; TEMP 36.1; O2SAT 94
[2023-03-15] MEDS: Pantoprazole Sodium 40 MG Tablet PO ×2 (05:47→16:53)
[2023-03-15] MEDS: Carbidopa/Levodopa 25/100 Tablet GT ×4 (05:47→22:09)
[2023-03-15] MEDS: Baclofen 10 MG Tablet 5 MG GT ×4 (05:48→22:08)
[2023-03-15 09:23] VITALS: BP 135/77; PULSE 81; RESP 18; O2SAT 99
[2023-03-15] MEDS: Amantadine 100 MG Capsule GT (09:24)
[2023-03-15] MEDS: Menthol/Lanolin/Calamine/Znox 113 GM Tube 1 APPLIC TOPICAL ×2 (09:25→22:10)
[2023-03-15] MEDS: Tolterodine Tartrate 4 MG CAP.SA PO (09:25)
[2023-03-15] MEDS: Jevity 1.5. 1,000 ML Bottle 350 ML GT ×4 (09:31→22:09)
[2023-03-15] MEDS: Vibegron 75 MG TABLET PO (12:25)
[2023-03-15 14:00] VITALS: TEMP 36.8
[2023-03-15] MEDS: Senna/Docusate Sodium 1 Tablet GT (22:09)
[2023-03-16] MEDS: Baclofen 10 MG Tablet 5 MG GT ×4 (05:42→22:00)
[2023-03-16] MEDS: Carbidopa/Levodopa 25/100 Tablet GT ×4 (05:43→21:59)
[2023-03-16] MEDS: Pantoprazole Sodium 40 MG Tablet PO ×2 (05:43→16:16)
[2023-03-16] MEDS: Amantadine 100 MG Capsule GT (09:16)
[2023-03-16] MEDS: Senna/Docusate Sodium 1 Tablet GT ×2 (09:16→22:00)
[2023-03-16] MEDS: Menthol/Lanolin/Calamine/Znox 113 GM Tube 1 APPLIC TOPICAL ×2 (09:16→22:01)
[2023-03-16] MEDS: Tolterodine Tartrate 4 MG CAP.SA PO (09:16)
[2023-03-16] MEDS: Jevity 1.5. 1,000 ML Bottle 350 ML GT ×4 (09:20→22:00)
[2023-03-16] MEDS: Vibegron 75 MG TABLET PO (13:11)
[2023-03-16] MEDS: Acetaminophen 325 MG Tablet 650 MG PO (13:38)
[2023-03-16 14:00] VITALS: BP 125/75; PULSE 91; RESP 18; TEMP 36.6; O2SAT 99
[2023-03-16 22:12] VITALS: O2SAT 95
[2023-03-17] MEDS: Baclofen 10 MG Tablet 5 MG GT ×4 (06:06→21:38)
[2023-03-17] MEDS: Pantoprazole Sodium 40 MG Tablet PO ×2 (06:06→16:45)
[2023-03-17] MEDS: Carbidopa/Levodopa 25/100 Tablet GT ×4 (06:06→21:39)
[2023-03-17] MEDS: Jevity 1.5. 1,000 ML Bottle 350 ML GT ×4 (09:45→21:49)
[2023-03-17] MEDS: Tolterodine Tartrate 4 MG CAP.SA PO (09:56)
[2023-03-17] MEDS: Amantadine 100 MG Capsule GT (09:57)
[2023-03-17] MEDS: Menthol/Lanolin/Calamine/Znox 113 GM Tube 1 APPLIC TOPICAL ×2 (09:58→21:50)
[2023-03-17 10:00] VITALS: PULSE 76; RESP 18; O2SAT 96
[2023-03-17] MEDS: Vibegron 75 MG TABLET PO (13:36)
[2023-03-17 13:52] VITALS: BP 145/81; PULSE 74; RESP 16; TEMP 36.8; O2SAT 100
--- NOTE | 2023-03-17 18:24 | NURSING ---
PEG PLACEMENT VERIFIED,0 RESIDUAL FOR ALL 3 MEALS. PT TOLERATED WELL.
[2023-03-17] MEDS: Senna/Docusate Sodium 1 Tablet GT (21:38)
[2023-03-18] MEDS: Carbidopa/Levodopa 25/100 Tablet GT ×4 (05:31→23:04)
[2023-03-18] MEDS: Baclofen 10 MG Tablet 5 MG GT ×4 (05:31→23:04)
[2023-03-18] MEDS: Pantoprazole Sodium 40 MG Tablet PO ×2 (05:32→16:17)
[2023-03-18] MEDS: Tolterodine Tartrate 4 MG CAP.SA PO (09:19)
[2023-03-18] MEDS: Jevity 1.5. 1,000 ML Bottle 350 ML GT ×4 (09:19→23:27)
[2023-03-18] MEDS: Amantadine 100 MG Capsule GT (09:19)
[2023-03-18] MEDS: Senna/Docusate Sodium 1 Tablet GT ×2 (09:19→23:03)
[2023-03-18] MEDS: Menthol/Lanolin/Calamine/Znox 113 GM Tube 1 APPLIC TOPICAL ×2 (09:20→23:28)
[2023-03-18 12:15] VITALS: BMI 19.9
[2023-03-18] MEDS: Vibegron 75 MG TABLET PO (13:11)
[2023-03-18 14:00] VITALS: BP 130/80; PULSE 95; RESP 18; TEMP 36.6; O2SAT 98
--- NOTE | 2023-03-18 14:25 | CHAPLAIN ---
Type of Pastoral Visit ___ Initial Visit _x__ Follow-up Visit ___ On-call Visit ___ General Patient Visit ___ Spiritual Assessment ___ Family Conference ___ Bereavement ___ Rapid Response ___ Code Blue ___ Other (describe below) Pastoral Care Referral From _x__ Patient ___ Family ___ Nurse ___ Physician ___ Local Company Flatbed Truck Driver ___ Blender Laborer ___ Other (describe below) Sacrament/Intervention _x__ Active listening ___ Anointing ___ Alevism ___ Bereavement ___ Communion _x__ [place] exploration ___ ___ Life review _x__ Prayer ___ Reconciliation ___ Sacrament of Sick _x__ Supportive presence ___ Wedding ___ Other (describe below) Pastoral Comments follow up to this patient who requested the same due to his being released tomorrow; pt asks about what is happening in the world and leads to discussion about countries, politics, , as this how pt likes to stay focused in his mind; pt is happy to be going home and just has a concern that home health will give him multiple days of therapy so he can continue to improve; pt talks about his evangelical and the Bahai evangelical; pt is a Gnosticism and will hold on to that which I have known for 74 years ; pt does respond positively to prayer when asked and states absolutely ; pt discusses goal of not having to come back to hospital unless I walk into it ; wishes for good days to come
[2023-03-19] MEDS: Carbidopa/Levodopa 25/100 Tablet GT (05:48)
[2023-03-19] MEDS: Pantoprazole Sodium 40 MG Tablet PO (05:48)
[2023-03-19] MEDS: Baclofen 10 MG Tablet 5 MG GT (05:48)
[2023-03-19] MEDS: Jevity 1.5. 1,000 ML Bottle 350 ML GT (09:47)
[2023-03-19] MEDS: Senna/Docusate Sodium 1 Tablet GT (09:57)
[2023-03-19] MEDS: Amantadine 100 MG Capsule GT (09:58)
[2023-03-19] MEDS: Tolterodine Tartrate 4 MG CAP.SA PO (09:58)
[2023-03-19] MEDS: Menthol/Lanolin/Calamine/Znox 113 GM Tube 1 APPLIC TOPICAL (09:58)
[2023-03-19 10:10] VITALS: BP 146/86; PULSE 83; RESP 18; TEMP 36.6; O2SAT 95
--- NOTE | 2023-03-19 10:57 | NURSING ---
PEG PLACEMENT VERIFIED, 0 RESIDUAL AT BREAKFAST. 350 CC OF JEVITY GIVEN WITH 260 FLUSH. PT TOLERATED WELL.
== END 2023-03-19 11:00 | disposition home health service (06) | DRG 57 ==
PROVIDERS: Admitting Provider Family Medicine Geriatric Medicine; PCP Family Medicine; Referring Provider Family Medicine Geriatric Medicine; Visit Provider Family Medicine Geriatric Medicine
DX: G20.B1 Parkinson's disease with dyskinesia, without mention of fluctuations (principal); R62.7 Adult failure to thrive; E11.9 Type 2 diabetes mellitus without complications; I10 Essential (primary) hypertension; K21.9 Gastro-esophageal reflux disease without esophagitis; E78.5 Hyperlipidemia, unspecified; N32.81 Overactive bladder; N40.0 Benign prostatic hyperplasia without lower urinary tract symptoms; Z79.899 Other long term (current) drug therapy; Z23 Encounter for immunization
CPT/HCPCS: 36415; 80048; 85025; 87811; 92526; 92610; 92612; 97110; 97116; 97162; 97166; 97530; 97535; 97802; 97803; G0008; 90662

== ENCOUNTER → 2023-03-11 | Outpatient (CLI) | payer MEDICARE, OTHER, SELFPAY ==
--- NOTE | 2023-03-11 10:45 | ART_ITS ---
Reason For Study: Claudication Procedure A bilateral lower extremity continuous wave Doppler with analog waveform analysis and ankle brachial indexes. Left Segmental Pressures Left brachial= 133mmHg. Left posterior tibial artery = 179mmHg. Left dorsalis pedis artery = 149mmHg. The left dorsalis pedis waveforms are triphasic. The left posterior tibial artery waveforms are triphasic. Right Segmental Pressures Right brachial= 127mmHg. Right posterior tibial artery = 156mmHg. Right dorsalis pedis artery = 179mmHg. The right dorsalis pedis waveforms are triphasic. The right posterior tibial artery waveforms are triphasic. Indices The right ankle brachial index by the dorsalis pedis is 1.35. The right ankle brachial index by the posterior tibial artery is 1.17. The left ankle brachial index by the dorsalis pedis is 1.12. The left ankle brachial index by the posterior tibial artery is 1.35. VL/Ankle Brachial Index Interpretation Summary Right FRANK 1.35, normal. Doppler/PVR waveforms of the right ankle normal at rest . Left FRANK 1.35, normal. Doppler/PVR waveforms of the left ankle normal at rest. Ordering Physician: Freddy Swann Chi Referring Physician: Nico Schmidt Performed By: Zayra Bernabe RVT
== END | disposition home or self-care (01) ==
LOC: CVS 10:45
PROVIDERS: PCP Family Medicine; Referring Provider Family Medicine Geriatric Medicine; Visit Provider Family Medicine Geriatric Medicine
DX: I70.213 Atherosclerosis of native arteries of extremities with intermittent claudication, bilateral legs (principal)
CPT/HCPCS: 93922

== ENCOUNTER → 2023-05-21 | Outpatient (CLI) | payer MEDICARE, OTHER, SELFPAY ==
[2023-05-21 15:33] LABS: Color, Urine Yellow (Yellow); Glucose, Dipstick Normal (Normal); Ketone-Dipstick Negative (Negative); Leukocyte Esterase-Dipstick 500 /ul (Negative); Nitrite-Dipstick Positive (Negative); Occult Blood-Urine 10 /ul (Negative); Protein-Dipstick Negative (Negative); Specific Gravity, Urine 1.015 (1.002-1.030); Urine Bilirubin Dipstick Negative (Negative); Urine Clarity Clear (Clear); Urine Urobilinogen Normal (Normal)
== END | disposition home or self-care (01) ==
LOC: HHLAB 15:10
PROVIDERS: PCP Family Medicine; Visit Provider Family Medicine
DX: R39.11 Hesitancy of micturition (principal); R30.0 Dysuria; Z87.440 Personal history of urinary (tract) infections
CPT/HCPCS: 81002; 87077; 87086; 87088; 87186

== ENCOUNTER → 2023-06-19 | Outpatient (CLI) | payer MEDICARE, OTHER, SELFPAY ==
[2023-06-19 14:21] LABS: Mucous, Urine 0 SEEN /hpf (<or=2+); Red Blood Cells-Urine 0 SEEN /hpf (0-5); Squamous Epithelial Cells - UA 0 SEEN /hpf (0-5)
[2023-06-19 17:47] LABS: Color, Urine Yellow (Yellow); Glucose, Dipstick Normal (Normal); Ketone-Dipstick Negative (Negative); Leukocyte Esterase-Dipstick 500 /ul (Negative); Nitrite-Dipstick Positive (Negative); Occult Blood-Urine 10 /ul (Negative); Protein-Dipstick Negative (Negative); Urine Bilirubin Dipstick Negative (Negative); Urine Clarity Clear (Clear); Urine Urobilinogen Normal (Normal)
[2023-06-19 18:06] LABS: Bacteria 1+ /hpf (None Seen); White Blood Cells 0-5 SEEN /hpf (0-5)
== END | disposition home or self-care (01) ==
LOC: MFPLAB 14:21
PROVIDERS: PCP Family Medicine; Visit Provider Family Medicine
DX: N39.0 Urinary tract infection, site not specified (principal)
CPT/HCPCS: 81001; 87077; 87086; 87088; 87186

== ENCOUNTER → 2023-07-21 | Outpatient (CLI) | payer MEDICARE, OTHER, SELFPAY ==
[2023-07-21 14:11] LABS: Color, Urine Yellow (Yellow); Glucose, Dipstick Normal (Normal); Ketone-Dipstick Negative (Negative); Leukocyte Esterase-Dipstick Negative /ul (Negative); Nitrite-Dipstick Negative (Negative); Occult Blood-Urine Negative /ul (Negative); Protein-Dipstick Negative (Negative); Urine Bilirubin Dipstick Negative (Negative); Urine Clarity Clear (Clear); Urine Urobilinogen Normal (Normal)
== END | disposition home or self-care (01) ==
LOC: LABSPEC 13:35
PROVIDERS: PCP Family Medicine; Referring Provider Family Medicine; Visit Provider Family Medicine
DX: N39.0 Urinary tract infection, site not specified (principal); R30.0 Dysuria
CPT/HCPCS: 81002; 87086; 87088

== ENCOUNTER → 2023-08-13 | Outpatient (CLI) | payer MEDICARE, OTHER, SELFPAY ==
[2023-08-13 16:46] LABS: Color, Urine Yellow (Yellow); Glucose, Dipstick Normal (Normal); Ketone-Dipstick Negative (Negative); Leukocyte Esterase-Dipstick Negative /ul (Negative); Nitrite-Dipstick Negative (Negative); Occult Blood-Urine Negative /ul (Negative); Protein-Dipstick Negative (Negative); Urine Bilirubin Dipstick Negative (Negative); Urine Clarity Clear (Clear); Urine Urobilinogen Normal (Normal)
== END | disposition home or self-care (01) ==
LOC: LABSPEC 16:01
PROVIDERS: PCP Family Medicine; Visit Provider Family Medicine
DX: N39.0 Urinary tract infection, site not specified (principal); R30.0 Dysuria
CPT/HCPCS: 81002; 87077; 87086; 87088; 87186

== ENCOUNTER → 2023-12-05 | Outpatient (CLI) | payer MEDICARE, OTHER, SELFPAY ==
[2023-12-05 15:35] LABS: ALB/GLOB Ratio 0.8 RATIO (0.9-2.4); AST(SGOT) 15 U/L (15-37); Alanine Aminotransfer ALT/SGPT 8 U/L (16-61); Albumin, Serum 3.2 g/dL (3.2-5.0); Alkaline Phosphatase 93 U/L (45-117); Anion Gap 4 (5-15); BUN 19 mg/dL (7-18); BUN/Creat Ratio 17.3 RATIO (10-20); Calcium,Total 9.3 mg/dL (8.5-10.1); Chloride 104 mmol/L (98-107); EST Glomerular Filtration Rate 69 mL/min (>60); Est Glom Filt Rate - Afr Amer 84 mL/min (>60); Globulin 4.2 g/dL (2.2-4.2); Glucose 87 mg/dL (74-106); Protein, Total 7.4 g/dL (6.4-8.2); Sodium Level 136 mmol/L (136-145)
== END | disposition home or self-care (01) ==
LOC: MFPLAB 12:06
PROVIDERS: PCP Family Medicine; Visit Provider Family Medicine
DX: B35.1 Tinea unguium (principal)
CPT/HCPCS: 36415; 80053

== ENCOUNTER 2024-07-28 15:54 | Inpatient (IN) | payer MEDICARE, OTHER, SELFPAY ==
[2024-07-28] VITALS (10 sets, daily range): BP systolic 54–155; BP diastolic 41–98; PULSE 64–88; RESP 15–20; TEMP 36–36.7; O2SAT 95–100; BMI 15.5; BMI 16.1
--- NOTE | 2024-07-28 16:05 | ED.RN ---
ATTEMPTED AND UNABLE TO OBTAIN ORAL OR AXILLARY TEMP
--- NOTE | 2024-07-28 16:48 | EX.ED.DYSGE1 ---
HPI History of Present Illness Chief Complaint: Syncope Informant: patient Onset/Context/Timing Onset: Today Context: Sudden Onset Timing: Continuous Quality: Unresponsive Location: Generalized Worsened by: Nothing Relieved by: Nothing Narrative Narrative: Patient presents with a single episode of vomiting today. Patient was eating lunch and became unresponsive for approximately 10 to 12 minutes. Family is unsure if the patient aspirated. Patient has a history of Parkinson's disease. Patient states he was pixelating prior to the syncopal episode. Patient denies any chest pain or shortness of breath. Patient does admit to a recent cough. Patient also admits to some pain over his tailbone. Patient denies any fevers or chills. [facility] Medical History (Updated 07/28/24 @ 20:[address] Phani Peralta DO) Parkinson's disease History of Parkinson's disease Closed dislocation finger, proximal interphalangeal joint, traumatic Cellulitis Closed traumatic nondisplaced fracture of four ribs of right side Difficulty balancing when standing BPH (benign prostatic hyperplasia) HLD (hyperlipidemia) HTN (hypertension) DMII (diabetes mellitus, type 2) Cellulitis Parkinson disease Home Medications ?Medication ?Instructions ?Recorded ?Last Taken ?Type amantadine HCl 100 mg capsule 100 mg PO DAILY PD 11/16/20 07/23/22 History rasagiline 1 mg tablet 1 mg PO DAILY PARKINSONS 11/16/20 02/27/23 History carbidopa 25 mg-levodopa 100 mg 2 tab PO 5X/DAY Parkinson 02/27/23 02/27/23 History tablet baclofen 10 mg tablet 10 mg PO .COMPLEX 07/28/24 Unknown History carbidopa 25 mg-levodopa 100 mg 1 tab PO .COMPLEX 07/28/24 Unknown History tablet clonazepam 0.5 mg tablet 0.5 mg PO QHS 07/28/24 Unknown History Allergy/AdvReac Type Severity Reaction Status Date / Time Penicillins (PCN) Allergy Unknown Verified 07/28/24 15:55 Family History Father Diabetes Hypertension Hyperlipidemia TIA (transient ischemic attack) Mother Hypertension Thyroid disorder Social History household members: spouse current occupational status: retired 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 Smoking Status: Never smoker alcohol intake: never substance use type: does not use and former substance user Date of last use: 1974 ROS ROS ED Constitutional Constitutional ED: Denies chills or fever(s) Eyes Eyes: Denies blurry vision or change in vision ENT ENT ED: Denies rhinorrhea or sore throat Cardiovascular Cardiovascular: Denies chest pain or palpitations Respiratory/Chest Respiratory/Chest: Reports cough; Denies dyspnea Gastrointestinal Gastrointestinal: Denies nausea or vomiting Genitourinary Genitourinary ED: Denies dysuria or hematuria Musculoskeletal Musculoskeletal: Reports back pain; Denies neck pain Integumentary Reports rash; Denies abscess Neurologic Neurologic: Denies headache(s) or weakness Allergic/Immunologic Allergic/Immunologic ED: Denies mouth swelling or urticaria EXAM Physical Exam Const Vital Signs: 07/28/24 15:55 07/28/24 16:05 07/28/24 16:39 Temperature 96.8 F L Temperature Source Temporal Pulse Rate 88 81 Pulse Rate [Lying] Pulse Rate [Sitting (for 1 minute prior to obtaining)] Pulse Rate [Standing (for 1 minute prior to obtaining)] Respiratory Rate 16 15 Respiratory Effort Normal Respiratory Pattern Normal Blood Pressure 71/58 L 78/61 L Blood Pressure [Lying] Blood Pressure [Sitting (for 1 minute prior to obtaining)] Blood Pressure [Standing (for 1 minute prior to obtaining)] Blood Pressure Mean 62 66 Blood Pressure Mean [Lying] Blood Pressure Mean [Sitting (for 1 minute prior to obtaining)] Blood Pressure Mean [Standing (for 1 minute prior to obtaining)] Pulse Ox 99 99 Oxygen Delivery Method Room Air Room Air 07/28/24 17:50 07/28/24 18:00 07/28/24 19:17 Temperature Temperature Source Pulse Rate 78 75 Pulse Rate [Lying] 80 Pulse Rate [Sitting (for 1 minute prior to obtaining)] 82 Pulse Rate [Standing (for 1 minute prior to obtaining)] 64 Respiratory Rate 20 H 18 Respiratory Effort Respiratory Pattern Blood Pressure 109/68 101/65 Blood Pressure [Lying] 86/67 L Blood Pressure [Sitting (for 1 minute prior to obtaining)] 69/56 L Blood Pressure [Standing (for 1 minute prior to obtaining)] 54/41 L Blood Pressure Mean 81 77 Blood Pressure Mean [Lying] 73 Blood Pressure Mean [Sitting (for 1 minute prior to obtaining)] 60 Blood Pressure Mean [Standing (for 1 minute prior to obtaining)] 45 Pulse Ox 99 100 Oxygen Delivery Method Room Air Room Air 07/28/24 19:17 07/28/24 19:53 Temperature Temperature Source Pulse Rate 74 66 Pulse Rate [Lying] Pulse Rate [Sitting (for 1 minute prior to obtaining)] Pulse Rate [Standing (for 1 minute prior to obtaining)] Respiratory Rate 16 20 H Respiratory Effort Respiratory Pattern Blood Pressure 95/66 135/71 H Blood Pressure [Lying] Blood Pressure [Sitting (for 1 minute prior to obtaining)] Blood Pressure [Standing (for 1 minute prior to obtaining)] Blood Pressure Mean 75 92 Blood Pressure Mean [Lying] Blood Pressure Mean [Sitting (for 1 minute prior to obtaining)] Blood Pressure Mean [Standing (for 1 minute prior to obtaining)] Pulse Ox 100 Oxygen Delivery Method Room Air Positive cachectic General Appearance ED: cachectic and NAD Nutritional Appearance: cachectic HEENT Reports dry mucous membranes Mouth ED: Yes dry mucous membranes Mouth: dry mucous membranes Neck supple and no JVD Resp normal respiratory effort and clear to auscultation bilaterally Cardio regular rate and regular rhythm GI non-tender and non-distended Palpation: soft Extremity General Extremety ED: Negative for edema or tenderness General Extremity: Negative for edema Neuro oriented x3, CN's II-XII intact bilaterally and no sensory deficits noted Sensorium / Orientation: alert Motor Exam: general weakness Psych mental status grossly normal Skin Skin Narrative: There is a grade 2 pressure ulcer over the left ischial tuberosity. There is no active discharge or drainage. There is some mild erythema surrounding the ulcer. There is mild tenderness. MDM MDM MDM Narrative Medical decision making narrative: Differential diagnosis includes cardiac dysrhythmia, cardiac ischemia, dehydration, electrolyte abnormality, medication side effect, urinary tract infection, sepsis, and vasovagal syncope. EKG will be obtained to assess for cardiac dysrhythmia and cardiac ischemia. Chest x-ray will be obtained to assess for pneumonia and aspiration. CBC will be obtained to assess for leukocytosis and anemia. Basic metabolic profile will be obtained to assess for electrolyte abnormality and renal function. Urinalysis will be obtained to assess for urinary tract infection or hematuria. High-sensitivity troponin will be obtained to assess for cardiac ischemia. 2-hour repeat high-sensitivity troponin will be obtained to assess for ongoing cardiac ischemia. Orthostatic vital signs will be obtained to assess for dehydration and hypovolemia. Lab Data Attestation: I reviewed the patient's lab results. Lab results narrative: CBC was reviewed and was within normal limits. PT with INR and PTT were reviewed. Pro time was mildly elevated at 15.9 and INR is 1.3. PTT was normal at 31.4. Basic metabolic profile was reviewed and was within normal limits. Serum lactate was reviewed and was slightly elevated at 2.1. High-sensitivity troponin was reviewed and was elevated at 60. Labs: Laboratory Results - last 24 hr 07/28/24 18:04 WBC 9.4 RBC 4.54 L Hgb 14.2 Hct 42.2 MCV 93.0 MCH 31.3 MCHC 33.6 RDW Std Deviation 45.6 H RDW Coeff of Lexii 13.3 Plt Count 191 MPV 12.2 H Immature Gran % (Auto) 0.500 Neut % (Auto) 83.2 H Lymph % (Auto) 8.0 L [place] % (Auto) 7.4 Eos % (Auto) 0.5 Baso % (Auto) 0.4 Absolute Neuts (auto) 7.8 H Absolute Lymphs (auto) 0.75 L Nucleated RBC % 0 PT 15.9 H INR 1.3 APTT 31.4 Sodium 134 Potassium 4.5 Chloride 99 Carbon Dioxide 26.1 Anion Gap 9 BUN 20 H Creatinine 1.15 Estim Creat Clear Calc 35.48 L Est GFR (MDRD) Non-Af 66 BUN/Creatinine Ratio 17.1 Glucose 88 Lactic Acid 2.1 H* Calcium 8.5 Troponin T High Sens 60 H* Radiography Chest X-Ray - ED: 1 View, Read by ED Physician, Read by Radiologist and No Acute Disease Diagnostic Testing: Portable 1 view chest x-ray was obtained. On my independent interpretation, lung blandon are clear. There is normal cardiac silhouette. Bony thorax is normal. There is no acute process noted. Radiologist also interpreted the x-ray and agrees. EKG Initial EKG: Attestation: I personally reviewed and interpreted this EKG as follows: Interpretation: Sinus Rhythm (75) and Non-Specific ST Changes Comments: EKG was obtained. On my independent interpretation, it showed a normal sinus rhythm with a rate of 75. MA interval, QRS interval, and QTc intervals were all normal. Nelson was normal. There are nonspecific ST-T wave changes. There is baseline artifact due to his Parkinson's disease. Prior EKG tracings: available for review Prior: Unchanged (12/25/2022) Treatment and Re-Evaluation :: Orthostatic vital signs were obtained and were positive. Patient was advised of his findings. Case was discussed with the hospitalist. She will admit the patient to their service. Patient and family understood and were agreeable with the plan. All questions were answered. Discharge Plan Triage Chief Complaint: Syncope ED Provider: Phani Peralta Dx/Rx/DC Orders Clinical Impression: Syncope and collapse, Parkinson disease, Orthostatic hypotension, Dehydration Prescriptions: No Action amantadine HCl 100 mg capsule 100 mg PO DAILY Patient Comments: rasagiline 1 mg tablet 1 mg PO DAILY Patient Comments: carbidopa-levodopa 25-100 mg tablet 2 tab PO 5X/DAY clonazepam 0.5 mg tablet 0.5 mg PO QHS baclofen 10 mg Tablet 10 mg PO .COMPLEX Rx Instructions: 10 mg orally 2 TABS MORNING AND HS. HALF TAB AT 1700; 5 mg orally 2 TABS; carbidopa-levodopa 25-100 mg Tablet 1 tab PO .COMPLEX Rx Instructions: 1 TAB [id number]; Primary Care Provider: Nico Schmidt Referrals: Nico Schmidt MD [Primary Care Provider] - Print Language: Citizen Of [place] Disposition Disposition: Acute Care Hospital [facility]
--- NOTE | 2024-07-28 17:09 | EKG12_ITS ---
Test Reason : Blood Pressure : */* mmHG Vent. Rate : 75 BPM Atrial Rate : * BPM P-R Int : * ms QRS Dur : 72 ms QT Int : 396 ms P-R-T Axes : * 47 74 degrees QTcB Int : 442 ms Normal sinus rhythm Nonspecific ST changes Baseline artifact Abnormal ECG Confirmed by Govind Jordan ([id number]), editor in chief [facility] ([id number]) on 07/29/2024 10:17:56 AM Referred By: Confirmed By: Govind Jordan
[2024-07-28] MEDS: 0.9% Normal Saline (1000mL) 1,000 ML 1000 ML IV (17:41)
[2024-07-28 18:27] LABS: Absolute Lymphocyte Count 0.75 X10^3/uL (0.83-4.51); Absolute Neutrophil Count 7.8 X10^3/uL (2.0-7.7); Basophil# 0.04 X10^3/uL; Basophil% 0.4 % (0-1); Eosinophil# 0.05 X10^3/uL; Eosinophils% 0.5 % (0-5); Hematocrit 42.2 % (40-54); Hemoglobin 14.2 g/dL (13.0-16.5); Lymphocyte # 0.75 X10^3/ul (0.83-4.51); Mean Corp Hgb Conc 33.6 g/dL (32-36); Mean Corpuscular Hgb 31.3 pg (27.0-32.0); Mean Platelet Vol. 12.2 fl (6.2-12.0); Monocyte# 0.69 X10^3/uL; Monocyte% 7.4 % (0-10); NRBC Flagged by Analyzer 0 % (0-5); Neutrophil # 7.77 X10^3/uL (2.7-7.7); Neutrophil % 83.2 % (47-70); Platelet Count 191 K/mm3 (150-450); RBC Distribution Width CV 13.3 % (11.6-14.6); RBC Distribution Width SD 45.6 fl (35.1-43.9); Red Blood Count 4.54 M/mm3 (4.6-6.2); White Blood Count 9.4 K/mm3 (4.4-11.0)
--- NOTE | 2024-07-28 18:40 | RAD_ITS ---
PROCEDURE: CHEST 1 VIEW (PORTABLE) 07/28/2024 REASON FOR EXAM: SYNCOPE TECHNIQUE: Frontal view of the chest. COMPARISON: 12/25/2022. FINDINGS: The heart is normal in size. The mediastinum is normal in contour. The lungs are clear. Chronic deformities of the right ribs. RAD/Chest 1 View (Portable) IMPRESSION: No Acute Findings. Reading Location: [place] [id number]
[2024-07-28 18:53] LABS: Anion Gap 9 (5-15); BUN 20 mg/dL (4-19); BUN/Creat Ratio 17.1 RATIO (10-20); Calcium,Total 8.5 mg/dL (7.6-11.0); Carbon Dioxide 26.1 mmol/L (21.0-32.0); Chloride 99 mmol/L (98-108); Creatinine, Serum 1.15 mg/dL (0.70-1.20); EST Glomerular Filtration Rate 66 (>60); Estimated Creatinine Clearance 35.48 ml/min (50-250); Glucose 88 mg/dL (70-99); Potassium 4.5 mmol/L (3.3-5.1); Sodium Level 134 mmol/L (133-145)
[2024-07-28 18:55] LABS: International Normalized Ratio 1.3; Partial Thromboplast Time 31.4 Seconds (24.1-36.2); Prothrombin Time (Protime)PT. 15.9 SECONDS (11.7-14.9)
--- NOTE | 2024-07-28 19:03 | ED.RN ---
LACTIC 2.1. AWARE
[2024-07-28 19:05] LABS: Lactic Acid 2.1 mmol/L (0.0-2.0)
[2024-07-28 19:13] LABS: Troponin T High Sensitivity 60 ng/L (<=22)
[2024-07-28] MEDS: Aspirin 81 MG TAB.CHEW 324 MG PO (19:52)
[2024-07-28 19:57] LABS: Bacteria 0 SEEN /hpf (None Seen); Mucous, Urine 0 SEEN /hpf (<or=2+); Squamous Epithelial Cells - UA 0 SEEN /hpf (0-5)
[2024-07-28 20:24] LABS: Glucose, Dipstick Normal (Normal); Ketone-Dipstick 5 mg/dl (Negative); Leukocyte Esterase-Dipstick 25 /ul (Negative); Nitrite-Dipstick Negative (Negative); Occult Blood-Urine 10 /ul (Negative); Protein-Dipstick 30 mg/dl (Negative); Urine Bilirubin Dipstick Negative (Negative); Urine Urobilinogen 1 mg/dl (Normal)
[2024-07-28 20:33] LABS: Color, Urine Yellow (Yellow); Urine Clarity Sl Cldy (Clear)
[2024-07-28 20:34] LABS: Red Blood Cells-Urine 0-5 SEEN /hpf (0-5); Triple Phosphate Crystals Ur KJ0 /hpf (<or=1+); White Blood Cells 0-5 SEEN /hpf (0-5)
--- NOTE | 2024-07-28 20:52 | PCM.HP.STD ---
HPI - General General Date of Admission: 07/28/24 HPI Narrative KATHARINE WATTS, is a 73 M with pmhx of parkinsons, debility, malnutrtition, who presents to the ER for syncope. He was sitting in his chair with his reading him news stories when he suddenly slumped unconscious. His tried to wake him up but he would not respond for about 10 minutes. He then spontaneously regained consciousness. During the time he was out his noted no shaking or muscle spasms. EMS was called and he was brought to the ER. He was found to be hypotensive and with positive orthostatic vitals signs. BP improved with IV fluid administration. He also had elevated troponin. He currently is resting comfortably in bed with his at bedside assisting with hx. He reports he feels at his baseline and denies LH/dizziness, SOB, CP, palpitations. [facility] Medical History (Updated 07/28/24 @ 20:59 by Andres ENRIQUEZ, PA) Encounter for feeding tube placement Parkinson's disease History of Parkinson's disease Closed dislocation finger, proximal interphalangeal joint, traumatic Cellulitis Closed traumatic nondisplaced fracture of four ribs of right side Difficulty balancing when standing BPH (benign prostatic hyperplasia) HLD (hyperlipidemia) HTN (hypertension) DMII (diabetes mellitus, type 2) Cellulitis Parkinson disease Home Medications ?Medication ?Instructions ?Recorded ?Last Taken ?Type amantadine HCl 100 mg capsule 100 mg PO DAILY PD 11/16/20 07/23/22 History rasagiline 1 mg tablet 1 mg PO DAILY PARKINSONS 11/16/20 02/27/23 History carbidopa 25 mg-levodopa 100 mg 2 tab PO 5X/DAY Parkinson 02/27/23 02/27/23 History tablet baclofen 10 mg tablet 10 mg PO .COMPLEX 07/28/24 Unknown History carbidopa 25 mg-levodopa 100 mg 1 tab PO .COMPLEX 07/28/24 Unknown History tablet clonazepam 0.5 mg tablet 0.5 mg PO QHS 07/28/24 Unknown History Allergy/AdvReac Type Severity Reaction Status Date / Time Penicillins (PCN) Allergy Unknown Verified 07/28/24 15:55 Family History Father Diabetes Hypertension Hyperlipidemia TIA (transient ischemic attack) Mother Hypertension Thyroid disorder Social History household members: spouse current occupational status: retired 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 Smoking Status: Never smoker alcohol intake: never substance use type: does not use and former substance user Date of last use: 1974 Constitutional Constitutional: Denies chills, fatigue or fever(s) Eyes Eyes: Denies blurry vision Cardiovascular Cardiovascular: Reports syncope; Denies chest pain, edema, lightheadedness, palpitations or rapid heart rate Respiratory/Chest Respiratory/Chest: Denies cough, dyspnea or wheezing Gastrointestinal Gastrointestinal: Denies abdominal pain, diarrhea, nausea or vomiting Genitourinary Genitourinary: Denies burning urination, difficulty urinating or dysuria Musculoskeletal Musculoskeletal: Denies arthralgias Neurologic Neurologic: Reports syncope; Denies seizures Psychiatric Psychiatric: Denies anxiety or depression Endocrine Endocrinology: Denies change in body appearance Hematologic/Lymphatic Hematologic/Lymphatic: Denies anemia Allergic/Immunologic Allergic/Immunologic: Denies rhinitis or asthma Vital Signs Vital Signs Vital Signs: 07/28/24 15:55 07/28/24 16:05 07/28/24 16:39 Temperature 96.8 F L Temperature Source Temporal Pulse Rate 88 81 Pulse Rate [Lying] Pulse Rate [Sitting (for 1 minute prior to obtaining)] Pulse Rate [Standing (for 1 minute prior to obtaining)] Respiratory Rate 16 15 Respiratory Effort Normal Respiratory Pattern Normal Blood Pressure 71/58 L 78/61 L Blood Pressure [Lying] Blood Pressure [Sitting (for 1 minute prior to obtaining)] Blood Pressure [Standing (for 1 minute prior to obtaining)] Blood Pressure Mean 62 66 Blood Pressure Mean [Lying] Blood Pressure Mean [Sitting (for 1 minute prior to obtaining)] Blood Pressure Mean [Standing (for 1 minute prior to obtaining)] Pulse Ox 99 99 Oxygen Delivery Method Room Air Room Air 07/28/24 17:50 07/28/24 18:00 07/28/24 19:17 Temperature Temperature Source Pulse Rate 78 75 Pulse Rate [Lying] 80 Pulse Rate [Sitting (for 1 minute prior to obtaining)] 82 Pulse Rate [Standing (for 1 minute prior to obtaining)] 64 Respiratory Rate 20 H 18 Respiratory Effort Respiratory Pattern Blood Pressure 109/68 101/65 Blood Pressure [Lying] 86/67 L Blood Pressure [Sitting (for 1 minute prior to obtaining)] 69/56 L Blood Pressure [Standing (for 1 minute prior to obtaining)] 54/41 L Blood Pressure Mean 81 77 Blood Pressure Mean [Lying] 73 Blood Pressure Mean [Sitting (for 1 minute prior to obtaining)] 60 Blood Pressure Mean [Standing (for 1 minute prior to obtaining)] 45 Pulse Ox 99 100 Oxygen Delivery Method Room Air Room Air 07/28/24 19:17 07/28/24 19:53 Temperature Temperature Source Pulse Rate 74 66 Pulse Rate [Lying] Pulse Rate [Sitting (for 1 minute prior to obtaining)] Pulse Rate [Standing (for 1 minute prior to obtaining)] Respiratory Rate 16 20 H Respiratory Effort Respiratory Pattern Blood Pressure 95/66 135/71 H Blood Pressure [Lying] Blood Pressure [Sitting (for 1 minute prior to obtaining)] Blood Pressure [Standing (for 1 minute prior to obtaining)] Blood Pressure Mean 75 92 Blood Pressure Mean [Lying] Blood Pressure Mean [Sitting (for 1 minute prior to obtaining)] Blood Pressure Mean [Standing (for 1 minute prior to obtaining)] Pulse Ox 100 Oxygen Delivery Method Room Air Weight Weight: 45.2 kg Body Mass Index (BMI) 15.5 Physical Exam Const alert and oriented x3 Constitutional Narrative: cachectic General Appearance: cooperative HEENT normocephalic and head/scalp atraumatic Eyes PERRL Neck no lymphadenopathy Resp normal respiratory effort and clear to auscultation bilaterally Cardio regular rate, regular rhythm and no murmurs GI normal to inspection, nondistended, normoactive bowel sounds, soft to palpation and non-tender Extremity normal to inspection Skin Skin Narrative: no wounds / rashes / lesions Neuro oriented x3 Psych affect normal Results Lab / Micro Data 07/28/24 18:04 07/28/24 18:04 Labs: Laboratory Results - last 24 hr 07/28/24 18:04: WBC 9.4, RBC 4.54 L, Hgb 14.2, Hct 42.2, MCV 93.0, MCH 31.3, MCHC 33.6, RDW Std Deviation 45.6 H, RDW Coeff of Lexii 13.3, Plt Count 191, MPV 12.2 H, Immature Gran % (Auto) 0.500, Neut % (Auto) 83.2 H, Lymph % (Auto) 8.0 L, [place] % (Auto) 7.4, Eos % (Auto) 0.5, Baso % (Auto) 0.4, Absolute Neuts (auto) 7.8 H, Absolute Lymphs (auto) 0.75 L, Nucleated RBC % 0, PT 15.9 H, INR 1.3, APTT 31.4, Sodium 134, Potassium 4.5, Chloride 99, Carbon Dioxide 26.1, Anion Gap 9, BUN 20 H, Creatinine 1.15, Estim Creat Clear Calc 35.48 L, Est GFR (MDRD) Non-Af 66, BUN/Creatinine Ratio 17.1, Glucose 88, Lactic Acid 2.1 H*, Calcium 8.5, Troponin T High Sens 60 H* 07/28/24 19:51: Urine Color Yellow, Urine Clarity Sl Cldy, Urine pH 6.0, Ur Specific [place] 1.020, Urine Protein 30 H, Urine Glucose (UA) Normal, Urine Ketones 5 H, Urine Occult Blood 10 H, Urine Nitrite Negative, Urine Bilirubin Negative, Urine Urobilinogen 1 H, Ur Leukocyte Esterase 25 H, Urine RBC 0-5 SEEN, Urine WBC 0-5 SEEN, Ur Squamous Epith Cells 0 SEEN, Triple Phos Crystals KJ0, Urine Bacteria 0 SEEN, Urine Mucus 0 SEEN Imaging Radiology Impression Chest X-Ray 07/28/24 18:40 IMPRESSION: No Acute Findings. Reading Location: [place] [id number] Assessment & Plan Assessment/Plan (1) Syncope: PLAN: 1. Syncope and orthostatic hypotension - approx 10 min episode today where pt slumped over in the presence of his . no seizure activity noted. pt found to be severely hypotensive with + orthos in the ER. BP improved with fluid administration. BUN elevated, Cr normal. LA 2.1, recheck. Continue fluid administration, recheck orthos in the AM. Neg CXR, UA reviewed, not significant for acute UTI. 2. Elevated troponin - initial trop 60. cycle enzymes, echo in the AM, tele overnight. No CP/pressure/palp/sob/edema. 3. Parkinsons - continue home meds. 4. Dysphagia - continue speech therapy. 5. Debility 2/2 #3 - continue PT / OT. 6. Malnutrition - cachectic - nutrition consult DVT ppx: lovenox DC planning: Home with resumption of previous HHC. Code status : Full per discussion at bedside with pt and . This patient was seen by Andres Lopez PA-C under the supervision of Doctor Jacques. (2) Orthostatic hypotension: (3) Parkinson disease: QUALIFIERS: Dyskinesia presence: with dyskinesia Fluctuating manifestations: unspecified whether manifestations fluctuate Qualified Code(s): G20.B1 - Parkinson's disease with dyskinesia, without mention of fluctuations
--- OUTSIDE RECORDS SUMMARY | 2024-07-28 22:05 | XMS RPT_ITS | CCD ---
Author Organization [facility] Care Team Providers Care Bowl Sander Name Role Phone Akua, Nikkie D Unavailable Unavailable Akua, Nikkie D Unavailable Unavailable Akua, Nikkie Kim Unavailable Unavailable Akua, Nikkie Kim Unavailable Unavailable Akua, Nikkie Kim Unavailable Unavailable Derrek Shaw Govind Unavailable Unavaila ble Akua, Nikkie Kim Unavailable Unavailable Derrek Shaw Unavailable Unavaila ble Derrek Shaw Govind Unavailable Unavaila TERRIE PinedaOLPH Referring Unavailable DERREK SHAW Primary Care Unavailable Juan R Rosado Unavailable Unavailable Akua, Nikkie Unavailable Unavailable Update Needed Unavailable Unavailable Unavailable Primary Care Provider UnavailNico Castrejon Primary Care Provider UnavailNico Castrejon Referring Provider Unavailable MINA Vaughan Attending Provider MINA Olivier Attending Provider Dr. Gayle Monae Emergency Provider Dr. Jakob Villeda Attending Provider Dr. Jakob Villeda Admit Provider Dr. Jakob Villeda Other Provider Dr. Connor Toro Attending Provider Dr. Connor Toro Other Provider Dr. Katharine Araiza Attending Provider Unavailable Primary Care Provider Nico Dahl Primary Care Provider UnavailNico Castrejon Referring Provider Unavailable Dr. Connor Toro Referring Provider Nico Schmidt Primary Care Provider UnavailNico Castrejon Primary Care Provider UnavailDr. Gayle Keen Emergency Provider Dr. Jakob Villeda Attending Provider Dr. Jakob Villeda Admit Provider Dr. Jakob Villeda Other Provider Dr. Connor Toro Attending Provider Coretz, Dr. Ryan Other Provider Teodora, Dr. Katharine Ceballos Attending Provider Cortez, Dr. Ryan Referring Provider Unavailable Primary Care Provider UnavailNico Castrejon MD Primary Care Provider Dr. Nico Schmidt Primary Care Provider Dr. Jakob Villeda Admit Provider Christiana, Dr. Jeronimo Other Provider Dr. Nicolasa Willingham Attending Provider Dr. Jakob Mohan Attending Provider Dr. Freddy Swann Chi Referring Provider NICO SCHMIDT Primary Care Unavailable NIKKIE BELLA Attending Unavailable DANIEL LY Referring Unavailable SCHMIDT, NICO Nolan Primary Care Unavailable GO WONG Attending Unavailable PROVIDER, UNKNOWN Referring Unavailable PROVIDER, UNKNOWN Consulting Unavailable JAKOB CHINO Referring Unavailable JERMAIN KNAPP JR Attending Unavaila ble NICO SCHMIDT Primary Care Unavailable THUESTAD, WAYNE A Admitting Unavailable Dr. Nico Schmidt Primary Care Provider Nico Schmidt MD Primary Care Provider Nico Schmidt Attending Unavailable Brayan, Nico Primary Care Unavailable Brayan, Nico Referring Unavailable Brayan, Nico Attending Unavailable Brayan, Nico Primary Care Unavailable Jakob Mohan Attending Unavailable Freddy Swann Chi Referring Unavailable Brayan, Nico Primary Care Unavailable aJkob Villeda Admitting Unavailable Jakob Villeda Consulting Unavailable Brayan, Nico Primary Care Unavailable Nicolasa Willingham Attending Unavailable Schmidt, Nico Attending Unavailable Schmidt, Nico Primary Care Unavailable Schmidt, Nico Referring Unavailable Schmidt, Nico Attending Unavailable Schmidt, Nico Primary Care Unavailable Schmidt, Nico Primary Care Unavailable Schmidt, Nico Attending Unavailable Shree, Freddy Chi Referring Unavailable Shree, Freddy Chi Attending Unavailable Schmidt, Nico Primary Care Unavailable Jakob Villeda Admitting Unavailable Jakob Villeda Attending Unavailable Schmidt, Ncio Primary Care Unavailable Shree, Freddy Chi Referring Unavailable Shree, Freddy Chi Attending Unavailable Shree, Freddy Chi Admitting Unavailable Schmidt, Nico Primary Care Unavailable Schmidt, Nico Attending Unavailable Schmidt, Nico Primary Care Unavailable Schmidt, Dr. Walsh Primary Care Provider Dr. Jakob Villeda Admit Provider Dr. Jakob Villeda Other Provider Dr. Nicolasa Willingham Attending Provider Nico Schmidt MD Primary Care Provider [phone] KAYODE GUZMAN Attending Unavailable TAISHA JOHN Referring Unavailable SCHMIDT, NICO R Primary Care Unavailable CAROLINA DAMON Attending Unavailable SCHMIDT, NICO R Primary Care Unavailable TAISHA JOHN Attending Unavailable JUAN R JOHN Referring Unavailable SCHMIDT, NICO R Primary Care Unavailable TAISHA JOHN Attending Unavailable TAISHA JOHN Referring Unavailable SCHMIDT, NICO R Primary Care Unavailable CAROLINA DAMON Attending Unavailable MARISOL, CAROLINA Referring Unavailable SCHMIDT, NICO R Primary Care Unavailable CAROLINA DAMON Attending Unavailable MARISOL, CAROLINA Referring Unavailable SCHMIDT, NICO R Primary Care Unavailable TAISHA JOHN Attending Unavailable TAISHA JOHN Referring Unavailable SCHMIDT, NICO R Primary Care Unavailable Allergies Allergy Classification Reported Allergen(s) Allergy Type Date of Onset Reaction(s) Facility (1 source) diphtheria toxoid vaccine, inactivated / tetanus toxoid vaccine, inactivated; Translations: [TETANUS] Drug Allergy TR-[facility]25 Work Phone: (6 sources) Penicillins; Translations: [Penicillins] drug allergy 3 Unknown [facility] Other [facility] (1 source) tetanus and diphtheria toxoids Allergy to substance 1 Unknown [facility] Work Phone: (2 sources) Penicillins Drug Allergy 3 Unknown [facility] (20 sources) Penicillins Drug Allergy 3 Unknown [facility] (10 sources) Penicillins Allergy to substance 2 Unknown [facility] (13 sources) ARIPiprazole; Translations: [[facility]RAZOLE] [facility] C[facility]fl[facility]; Translations: [CIPROFLOXACIN] Drug Allergy 4 Other: See Comments [facility] (13 sources) Haloperidol; Translations: [HALOPERIDOL] Drug Allergy 4 [facility] (13 sources) Metoclopramide; Translations: [METOCLOPRAMIDE ] Drug Allergy 4 [facility] (13 sources) Prochlorperazin e; Translations: [PROCHLORPERAZI NE] Drug Allergy 4 [facility] (13 sources) Promethazine; Translations: [PROMETHAZINE] Drug Allergy 4 [facility] (1 source) Penicillins Drug allergy (disorder) 3 [facility] (9 sources) Penicillin G; Translations: [PENICILLIN G] Drug Allergy 5 Unknown [facility] (4 sources) Penicillins Drug Allergy 3 [facility] (4 sources) OLANZapine; Translations: [OLANZAPINE] Drug Allergy 5 [facility] Medications Current Medications Medication Drug Class(es) Dates Sig (Normalized) Sig (Original) acetaminophen 325 mg oral tablet (20 sources) Start: 01-14-2023 take 2 tablets by mouth every four hours as needed acetaminophen (TYLENOL) 325 mg tablet Take 2 tablets by mouth every 4 hours as needed for pain or fever (specify temp.). 01/14/2023 Active Start: 01-14-2023 End: 03-12-2023 take 650 mg by mouth every four hours Acetaminophen Discontinued 650 MG PO Q4H January 14, 2023 1:00am March 12, 2023 8:28pm Comment on above: Take 2 tablets by mo uth every 4 hours as needed for pain or fever (specify temp.). amantadine hydrochloride 100 mg oral tablet (20 sources) Influenza A M2 Protein Inhibitor Start: End: take 1 tablet by mouth once daily amantadine HCl (SYMMETREL) 100 mg tablet Indications: Parkinson's disease with dyskinesia and fluctuating manifestations (HCC) , Dystonia Take 1 tablet by mouth once daily. 30 tablet 11 03/16/2024 03/16/2025 Active Start: 11-16-2020 End: 01-04-2025 take 1 capsule by mouth once daily amantadine HCl (SYMMETREL) 100 mg capsule Take 1 capsule by mouth once daily. 30 capsule 11 01/05/2024 03/16/2024 Discontinued Start: 10-25-2014 End: 12-26-2022 take 100 mg by mouth twice daily Amantadine Hcl Discontinued 100 MG PO TWICE A DAY October 23, 2017 11:00pm November 16, 2020 11:18am 0800, 1300 Comment on above: Take 1 capsule by mo [facility] twice daily. Take 1 capsule by mo [facility] once daily. baclofen 10 mg oral tablet (20 sources) gamma-Aminobutyric Acid-ergic Agonist Start: 06-10-2024 baclofen 10 mg tablet Indications: Focal dystonia Take 1 tablet in the morning and afternoon and 0.5-1 tablet in the evening. 270 tablet 3 06/10/2024 Active Start: 05-07-2023 baclofen 10 mg tablet Indications: Focal dystonia Take 1 tablet in the morning and afternoon and 1/2 tablet in the evening for one week and then take 1 tablet three times daily 90 tablet 11 05/07/2023 Active Start: 03-12-2023 baclofen 10 mg tablet GIVE 1/2 TABLET VIA G-TUBE 4 TIMES DAILY 0 03/12/2023 Active Start: 03-12-2023 Baclofen Activ e 5 MG GT 4 TIMES DAILY March 12, 2023 1:00am Start: 01-30-2023 End: 03-12-2023 Baclofen Discontinued 5 MG G T TWICE A DAY January 30, 2023 1:00am March 12, 2023 8:28pm Start: 01-14-2023 End: 04-08-2023 take 1 tablet by mouth twice daily baclofen 5 mg tablet Take 1 tablet by mouth two times a day. 0 01/14/2023 04/08/2023 Discontinued Comment on above: Take 1 tablet by reba th two times a day. GIVE 1/2 TABLET VIA G-TUBE 4 TIMES DAILY Take 1 tablet in the morning and afternoon and 1/2 tablet in the evening for one week and then take 1 tablet three times daily carbidopa 25 mg / levodopa 100 mg oral tablet (20 sources) Aromatic Amino Acid Decarboxylation Inhibitor, Aromatic Amino Acid Start: 03-12-2023 Carbidopa-Levodopa Active 1.5 TABLET GT AT BEDTIME 0 March 12, 2023 1:00am Start: 02-27-2023 Carbidopa-Levo dopa Active 2 TABLET feeding tube THREE TIMES A DAY February 27, 2023 1:00am Start: 02-24-2023 End: 07-17-2023 carbidopa-levodopa (SINEMET) 25-100 mg per tablet 1 tab at 230AM, 2 tabs at 8AM, 11AM, 2PM, 5PM and 1.5 tabs at 8PM 945 tablet 11 07/17/2023 Active Start: 01-27-2023 End: 03-12-2023 take 3 capsules by mouth once daily Carbidopa-Levodopa (Rytary) 36.25-145 mg capsule, extended release Discontinued 3 CAP PO DAILY@0800 January 27, 2023 1:00am March 12, 2023 8:28pm Start: 01-27-2023 End: 03-12-2023 Carbidopa-Levodopa (Rytary) 36.25-145 mg capsule, extended release Discontinued 4 CAP PO 1200,1700 January 27, 2023 1:00am March 12, 2023 8:28pm Start: 01-14-2023 End: 02-24-2023 carbidopa-levodopa (SINEMET 25-100) 25-100 mg per tablet 1 tablet by PEG route once daily. Take at 2300. 0 01/14/2023 02/24/2023 Discontinued Start: 01-14-2023 End: 02-24-2023 carbidopa-levodopa (SINEMET 25-100) 25-100 mg per tablet 3 tablets by PEG route three times a day. Take at 0800, 1200 and 1700. 0 01/14/2023 02/24/2023 Discontinued Start: 01-14-2023 End: 01-27-2023 take 3 tablets by mouth three times daily Carbidopa-Levodopa Discontinued 3 TABLET PO TID@0800,1200,1700 January 14, 2023 1:00am January 27, 2023 1:57pm Start: 01-14-2023 End: 01-27-2023 take 1 tablet by mouth once daily at bedtime Carbidopa-Levodopa Discontinued 1 TABLET PO DAILY@2300 January 14, 2023 1:00am January 27, 2023 1:58pm administer 30-60 minutes before bedtime Start: 11-16-2020 take 1 capsule by mo uth three times daily Carbidopa-Levodopa (Rytary) 23.75-95 mg capsule, extended release Active 1 CAP PO THREE TIMES A DAY November 16, 2020 12:18pm Start: 11-15-2020 End: 06-22-2021 take 1 tablet by mouth once daily at bedtime carbidopa-levodopa CR (SINEMET CR) 25-100 mg per tablet Take 1 tablet by mouth daily at bedtime. 30 tablet 11 11/15/2020 06/22/2021 Discontinued Start: 08-03-2020 End: 01-14-2023 take 1 capsule by mouth at bedtime Carbidopa-Levodopa (Rytary) 36.25-145 mg capsule, extended release Discontinued 1 CAP PO AT BEDTIME July 22, 2022 11:00pm January 14, 2023 10:22pm Start: 04-19-2019 Carbidopa-Levo dopa Active 4 EACH PO WITH DINNER October 27, 2019 11:00pm Start: 04-19-2019 take 1 tablet by reba th at bedtime Carbidopa-Levodopa Active 1 TABLET PO AT BEDTIME April 19, 2019 12:39pm take 1 tablet by reba th four times daily Carbidopa-Levodopa 25-100 MG Oral Tablet TAKE 1 TABLET 4 TIMES DAILY. Quantity: 360 Refills: 3 Nikkie Flor Active Comment on above: 4 capsules at 8AM, a nd 4 capsules at 1PM, and at 6PM. Take 1 tablet by reba th daily at bedtime. 3 capsules at 8AM, a nd 4 capsules at 1PM, and at 6PM and 1 at bedtime 3 capsules at 8AM an d 4 capsules at 12:30 and 5:30 1 capsules at bedtime 1 tablet by PEG rout e once daily. Take at 2300. 3 tablets by PEG rou te three times a day. Take at 0800, 1200 and 1700. 2 tabs at 8AM, 12PM, 4PM and 1.5 tabs at 8PM carbidopa IR-levodopa ER (CREXONT) 70-280 mg capsule (8 sources) Start: 03-16-19 25 End: 03-16-19 26 take 2 capsules by mouth three times daily carbidopa IR-levodopa ER (CREXONT) 70-280 mg capsule Indications: Parkinson's disease with dyskinesia and fluctuating manifestations (HCC) Take 2 capsules by mouth three times a day. At 8am, 2pm and 8pm 180 Each 03/16/2024 03/16/2025 Active cephalexin 500 mg oral tablet (17 sources) Cephalosporin Antibacterial Start: 10-10-19 take 500 mg by mouth three times daily Cephalexin Active 500 MG PO THREE TIMES A DAY October 08, 2021 11:00pm Start: 08-10-2021 End: 08-20-2021 take 500 mg by mouth every eight hours Cephalexin Discontinued 500 MG PO Q8H 30 August 10, 2021 12:00am August 20, 2021 12:03am clonazePAM 0.5 mg oral tablet (13 sources) Benzodiazepine Start: 11-07-2023 End: 11-02-2024 take 1 tablet by mouth once daily at bedtime clonazePAM (KLONOPIN) 0.5 mg tablet Indications: Insomnia due to medical condition , Dystonia Take 1 tablet by mouth daily at bedtime for 180 days. 30 tablet 5 05/06/2024 11/02/2024 Active hydrALAZINE hydrochloride 10 mg oral tablet (7 sources) Arteriolar Vasodilator Start: 01-14-2023 End: 04-08-2023 take 10 mg by mouth three times daily Hydralazine Active 10 MG PO THREE TIMES A DAY January 14, 2023 1:00am until target blood pressure attained Comment on above: Take 1 tablet by reba th three times a day as needed (for SBP greater than 190). L. Acidophilus/Bifid. Animalis (5 sources) Start: 10-09-2021 take 1 capsule by mouth twice daily L. Acidophilus/Bifid . Animalis Active 1 CAP PO TWICE A DAY 06 12October 08, 2021 11:00pm Available over the counter. Any probiotic for 10 days Start: 10-09-2021 take 1 capsule by [facility] twice daily L. Acidophilus/Bifid. Animalis Active 1 CAP PO TWICE A DAY 06 12October 09, 2021 12:00am Available over the counter. Any probiotic for 10 days Lactose-Reduced Food With Fi br (Jevity 1.5 Kelli) 0.06 gram-1.5 kcal/mL Liquid (13 sources) Start: 03-12-2023 Lactose-Reduce d Food With Fibr (Jevity 1.5 Kelli) 0.06 gram-1.5 kcal/mL Liquid Active 350 ML GT THREE TIMES DAILY AFTER MEALS 0 March 12, 2023 1:00am Start: 03-12-2023 Lactose-Reduce d Food With Fibr (Jevity 1.5 Kelli) 0.06 gram-1.5 kcal/mL Liquid Active 350 ML GT 2200 0 March 12, 2023 1:00am Start: 01-30-2023 End: 03-12-2023 Lactose-Reduced Food With Fi br (Jevity 1.5 Kelli) 0.06 gram-1.5 kcal/mL Liquid Discontinued 200 ML GT DAILY@0600 6000 January 30, 2023 1:00am March 12, 2023 8:28pm Start: 01-30-2023 End: 03-12-2023 Lactose-Reduced Food With Fi br (Jevity 1.5 Kelli) 0.06 gram-1.5 kcal/mL Liquid Discontinued 300 ML GT THREE TIMES DAILY AFTER MEALS [id number] January 30, 2023 1:00am March 12, 2023 8:29pm Start: 01-30-2023 End: 03-12-2023 Lactose-Reduced Food With Fi br (Jevity 1.5 Kelli) 0.06 gram-1.5 kcal/mL Liquid Discontinued 300 ML GT BEDTIME 9000 January 30, 2023 1:00am March 12, 2023 8:29pm Start: 01-30-2023 Lactose-Reduce d Food With Fibr (Jevity 1.5 Kelli) 0.06 gram-1.5 kcal/mL Liquid Active 200 ML GT DAILY@0600 6000 January 30, 2023 12:00am Start: 01-30-2023 Lactose-Reduce d Food With Fibr (Jevity 1.5 Kelli) 0.06 gram-1.5 kcal/mL Liquid Active 300 ML GT THREE TIMES DAILY AFTER MEALS 10288 January 30, 2023 12:00am Start: 01-30-2023 Lactose-Reduce d Food With Fibr (Jevity 1.5 Kelli) 0.06 gram-1.5 kcal/mL Liquid Active 300 ML GT BEDTIME 9000 January 30, 2023 12:00am lisinopril 10 mg oral tablet (2 sources) Angiotensin Converting Enzyme Inhibitor Start: 10-25-2014 take 10 mg by mouth once daily Lisinopril Active 10 MG PO DAILY October 24, 2017 5:55pm 24 hr mirabegron 50 mg extended release oral tablet (20 sources) beta3-Adrenergic Agonist Start: 07-23-2022 End: 04-08-2023 take 1 tablet by mouth once daily Mirabegron (Myrbetriq) 50 mg tablet extended release 24 hr Active 50 MG PO DAILY@1400 January 14, 2023 12:00am Start: 07-23-2022 Myrbetriq Acti ve July 22, 2022 11:00pm Start: 07-23-2022 Myrbetriq Acti ve July 23, 2022 12:00am Comment on above: Take 1 tablet by reba th every afternoon. Take 1 tablet by reba th daily at bedtime. Take 1 tablet by reba th once daily. At 2 PM rasagiline 1 mg oral tablet (20 sources) Monoamine Oxidase Inhibitor Start: 6 End: 4 take 1 tablet by mouth once daily rasagiline (AZILECT) 1 mg tab Take 1 tablet by mouth once daily. 90 tablet 3 01/05/2024 Active Comment on above: Take 1 tablet by reba th once daily. solifenacin succinate 10 mg oral tablet (20 sources) Cholinergic Muscarinic Antagonist Start: 3 take 10 mg by mouth once daily Solifenacin Active 10 MG PO DAILY January 14, 2023 1:00am Start: 10-19-2021 End: 10-19-2022 take 1 tablet by mouth once daily solifenacin (VESICARE) 10 mg tablet Take 1 tablet by mouth once daily. 30 tablet 11 10/19/2021 02/14/2022 Discontinued Start: 06-22-2021 End: 06-22-2022 take 1 tablet by mouth once daily solifenacin (VESICARE) 5 mg tablet Take 1 tablet by mouth once daily. 30 tablet 11 06/22/2021 10/19/2021 Discontinued solifenacin succ inate (SOLIFENACIN ORAL) Take by mouth daily at bedtime. Pt and unsure of dosage Active solifenacin succ inate (SOLIFENACIN ORAL) Take by mouth daily at bedtime. Pt and unsure of dosage 0 Active solifenacin succ inate (SOLIFENACIN ORAL) Take by mouth daily at bedtime. Pt and unsure of dosage 0 Suspended Comment on above: Take 1 tablet by reba th once daily. Take by mouth daily at bedtime. Pt and unsure of dosage sulfamethoxazole 800 mg / trimethoprim 160 mg oral tablet (5 sources) Dihydrofolate Reductase Inhibitor Antibacterial, Sulfonamide Antimicrobial Start: 10-10-19 take 1 tablet by mouth twice daily Sulfamethoxazole -Trimethoprim (Bactrim Ds) 800-160 mg tablet Active 1 TABLET PO TWICE A DAY October 08, 2021 11:00pm vibegron (GEMTESA) 75 mg tablet (11 sources) Start: 07-23-19 End: 01-19-20 25 take 1 tablet by mouth once daily vibegron (GEMTESA) 75 mg tablet Take 1 tablet by mouth once daily. 30 tablet 5 07/22/2024 01/18/2025 Active Start: 11-28-2023 End: 07-22-2024 take 1 tablet by mouth once daily vibegron (GEMTESA) 75 mg tablet Indications: Overactive bladder Take 1 tablet by mouth once daily. 30 tablet 5 11/28/2023 07/22/2024 Discontinued Start: 11-28-2023 take 1 tablet by reba th once daily vibegron (GEMTESA) 75 mg tablet Indications: Overactive bladder Take 1 tablet by mouth once daily. 30 tablet 5 11/28/2023 Active Start: 11-28-2023 End: 05-26-2024 take 1 tablet by mouth once daily vibegron (GEMTESA) 75 mg tablet Indications: Overactive bladder Take 1 tablet by mouth once daily. 30 tablet 5 11/28/2023 05/26/2024 Active Completed/Discontinued Medications Medication Drug Class(es) Dates Sig (Normalized) Sig (Original) acetaminophen 325 mg / HYDROcodone bitartrate 5 mg oral tablet (13 sources) Opioid Agonist Start: 10-28-2019 End: 11-16-2020 take 1 tablet by mouth every six hours as needed Hydrocodone-Acetam inophen Discontinued 1 TABLET PO EVERY 6 HOURS NEEDED October 28, 2019 November 16, 2020 12:17pm ascorbic acid 4700 mg / polyethylene glycol 3350 182312 mg / potassium chloride 1015 mg / sodium ascorbate 5900 mg / sodium chloride 2690 mg / sodium sulfate 7500 mg powder for oral solution (7 sources) Osmotic Laxative, Vitamin C Start: 01-16-2017 End: 07-17-2023 PEG 0804-Dmagtedtwdv-M it C (MOVIPREP) 100-7.5-2.691 gram Take by mouth. 0 01/16/2017 07/17/2023 Discontinued Start: 01-16-2017 MoviPrep 100 G M Oral Solution Reconstituted Quantity: 1 Refills: 0 Start : 16-Jan-2017 Active Comment on above: Take by mouth. aspirin 81 mg delayed release oral tablet (20 sources) Platelet Aggregation Inhibitor, Nonsteroidal Anti-inflammatory Drug Start: 01-20-2013 End: 06-06-2022 take 1 tablet by mouth once daily aspirin, enteric coated (ADULT LOW DOSE ASPIRIN) 81 mg EC tablet Take 1 tablet by mouth once daily. 0 01/20/2013 06/06/2022 Discontinued (Other) Aspirin 81 MG TA BS TAKE 1 TABLET DAILY. Refills: 0 Active Comment on above: Take 1 tablet by [facility] once daily. onabotulinumtoxina 100 unt injection (10 sources) Acetylcholine Release Inhibitor Start: 07-02-2024 End: 07-02-2024 onabotulinum toxin type A 300 Units injection (BOTOX) Start: 07-02-2024 End: 07-02-2024 300 Units, INTRAMUSCULAR, ON CE, 1 dose, On Fri07/02/24 at 1130, REFRIGERATE - Pharmaceutical Waste: Lab Pack - Start: 04-02-2024 End: 04-02-2024 onabotulinum toxin type A 20 0 Units injection (BOTOX) Start: 04-02-2024 End: 04-02-2024 200 Units, INTRAMUSCULAR, ON CE, 1 dose, On Fri04/02/24 at 1030, REFRIGERATE - Pharmaceutical Waste: Lab Pack - Start: 11-14-2023 End: 11-14-2023 onabotulinum toxin type A 20 0 Units injection (BOTOX) Start: 11-14-2023 End: 11-14-2023 200 Units, INTRAMUSCULAR, ON CE, 1 dose, On Fri11/14/23 at 1100, REFRIGERATE - Pharmaceutical Waste: Lab Pack - Start: 07-18-2023 End: 07-18-2023 onabotulinum toxin type A 20 0 Units injection (BOTOX) Start: 09-20-2022 End: 09-20-2022 onabotulinum toxin type A 20 0 Units injection (BOTOX) Start: 02-26-2022 End: 02-26-2022 onabotulinum toxin type A 20 0 Units injection (BOTOX) Disability Placard (1 source) Start: 01-21-2018 Disability Placard Diagnosis: Parkinson's Disease. Good for Lifetime. Quantity: 1 Refills: 0 Nikkie Flor Start : 21-Jan-2018 Active docusate sodium 100 mg oral capsule (1 source) Start: 04-19-2015 take 1 capsule by mouth twice daily Colace 100 MG Oral Capsule Take 1 capsule twice daily Quantity: 60 Refills: 6 Juan R Rosado MD Start : 19-Apr-2015 Active docusate sodium 50 mg / sennosides, [facility] 8.6 mg oral tablet (18 sources) Start: 01-14-2023 End: 11-07-2023 take 1 tablet by mouth twice daily senna-docusate (SENNA-S) 8.6-50 mg per tablet Take 1 tablet by mouth two times a day. 0 01/14/2023 Active Comment on above: Take 1 tablet by reba two times a day. doxycycline hyclate 100 mg oral capsule (4 sources) Tetracycline-clas s Drug Start: 07-26-2022 End: 01-14-2023 take 100 mg by mouth twice daily Doxycycline Hyclate Discontinued 100 MG PO TWICE A DAY July 26, 2022 12:00am January 14, 2023 11:22pm lidocaine 0.05 mg/mg medicated patch (13 sources) Antiarrhythmic, Amide Local Anesthetic Start: 10-28-2019 End: 11-16-2020 Lidocaine Discontinued 1 EACH TP DAILY October 28, 2019 12:00am November 16, 2020 12:17pm metFORMIN hydrochloride 500 mg oral tablet (14 sources) Biguanide Start: 10-25-2014 End: 11-16-2020 take 500 mg by mouth twice daily at mealtime Metformin Discontinued 500 MG PO TWICE DAILY WITH MEALS October 23, 2017 11:00pm November 16, 2020 11:17am miconazole nitrate 0.02 mg/mg topical powder (15 sources) Azole Antifungal Start: 01-14-2023 End: 07-17-2023 miconazole 2 % powder Apply 1 application to affected area two times a day. To back 0 01/14/2023 Active Comment on above: Apply 1 application to affected area two times a day. To back mirtazapine 15 mg oral tablet (4 sources) Start: 10-19-2021 End: 11-23-2022 take 1 tablet by mouth once daily at bedtime mirtazapine (REMERON) 15 mg tablet Take 1 tablet by mouth daily at bedtime. 30 tablet 11 11/23/2021 02/14/2022 Discontinued Comment on above: Take 1 tablet by reba th daily at bedtime. pantoprazole 40 mg delayed release oral tablet (20 sources) Proton Pump Inhibitor Start: 03-21-2023 End: 07-17-2023 take 1 tablet by mouth once pantoprazole DR (PROTONIX) 40 mg tablet Take 1 tablet by mouth every afternoon. 0 03/21/2023 07/17/2023 Discontinued Start: 01-14-2023 End: 07-17-2023 pantoprazole (PROTONIX) 40 m g/20 mL oral liquid Take 20 mL by mouth two times a day before meals at 6 am and 4 pm. 0 01/14/2023 Active Comment on above: Take 20 mL by mouth two times a day before meals at 6 am and 4 pm. Take 1 tablet by reba th every afternoon. polyethylene glycol 3350 63469 mg powder for oral solution (15 sources) Osmotic Laxative Start: End: polyethylene glycol 3350 17 gram packet Take 1 Packet by mouth once daily. Dissolve dose in 4 - 8 ounces of liquid and take as directed. 0 01/15/2023 Active Comment on above: Take 1 Packet by reba once daily. Dissolve dose in 4 - 8 ounces of liquid and take as directed. pravastatin sodium 20 mg oral tablet (14 sources) HMG-CoA Reductase Inhibitor Start: 5 End: 1 take 1 tablet by mouth at bedtime Pravastatin (Pravachol) 20 MG tablet Discontinued 20 MG PO AT BEDTIME October 23, 2017 11:00pm November 16, 2020 11:17am rOPINIRole 0.5 mg oral tablet (1 source) Nonergot Dopamine Agonist Start: 9 rOPINIRole HCl - 0.5 MG Oral Tablet Take 1 tablet four times daily x 1wk, half tablet four times daily x 1wk, half tablet 8a, 4p x 1 wk, then stop. 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 0 01/20/2013 12/26/2022 Discontinued Comment on above: Take 1 capsule by [facility] once daily. terbinafine 250 mg oral tablet (20 sources) Allylamine Antifungal Start: 2 End: 3 take 250 mg by mouth at bedtime Terbinafine Hcl Discontinued 250 MG PO AT BEDTIME October 07, 2021 12:00am January 14, 2023 11:24pm Comment on above: Take by mouth. traMADol hydrochloride 50 mg oral tablet (13 sources) Opioid Agonist Start: 0 End: 0 take 50 mg by mouth every four hours as needed Tramadol Discontinued 50 MG PO EVERY 4 HOURS NEEDED 20 October 28, 2019 12:00am October 31, 2019 12:03am traZODone hydrochloride 50 mg oral tablet (10 sources) Serotonin Reuptake Inhibitor Start: 2 End: 4 take 1 tablet by mouth once daily at bedtime traZODone (DESYREL) 50 mg tablet Take 1 tablet by mouth daily at bedtime. 30 tablet 11 06/20/2022 12/24/2022 Discontinued Comment on above: Take 1 tablet by reba th daily at bedtime. Problems Active Problems Problem Classification Problem Date Documented Da te Episodic/Chronic Acquired foot deformities (1 source) Hammer toe; Translations: [Hammer toe] Chronic Chronic ulcer of skin (6 sources) Pressure ulcer of unspecified site, stage 2; Translations: [Pressure injury, stage 2] Onset: 3 02-09-2023 Chronic Diabetes mellitus without complication (20 sources) Type 2 diabetes mellitus; Translations: [Type 2 diabetes mellitus without complications] Onset: 3 06-06-2021 Chronic Diseases of mouth; excluding dental (2 sources) Dribbling from mouth; Translations: [Disturbances of salivary secretion] Onset: 5 07-22-2024 Episodic Diseases of white blood cells (20 sources) Leukocytosis; Translations: [Elevated white blood cell count, unspecified] Onset: 3 01-13-2023 Chronic Disorders of lipid metabolism (15 sources) Hyperlipidemia, unspecified; Translations: [Hypercholesterolemia] Onset: 8 06-06-2021 Chronic E Codes: Fall (6 sources) Fall; Translations: [Unspecified fall, initial encounter] 03-25-2022 Episodic Esophageal disorders (4 sources) Gastroesophageal reflux disease; Translations: [Gastro-esophageal reflux disease without esophagitis] 03-19-2023 Chronic Essential hypertension (20 sources) Essential (primary) hypertension; Translations: [Hypertensive disorder] Onset: 8 06-06-2021 Chronic Genitourinary symptoms and ill-defined conditions (1 source) Urinary incontinence; Translations: [Unspecified urinary incontinence] 11-28-2023 Chronic Hyperplasia of prostate (20 sources) Large prostate ; Translations: [Benign prostatic hyperplasia] Onset: 3 06-06-2021 Chronic Joint disorders and dislocations; trauma-related (6 sources) Closed traumatic dislocation of interphalangeal joint of finger; Translations: [Dislocation of proximal interphalangeal joint of unspecified finger, initial encounter] 03-25-2022 Episodic Miscellaneous mental health disorders (1 source) Chronic insomnia; Translations: [Psychophysiologic insomnia] 03-29-2023 Chronic Mood disorders (1 source) Depressive disorder; Translations: [Depression, unspecified depression type] 07-22-2024 Chronic Mood disorders (1 source) Mood disorders; Translations: [Depression, unspecified depression type] Onset: 5 Mycoses (1 source) Tinea unguium; Translations: [Tinea unguium] Onset: 4 Episodic Nutritional deficiencies (20 sources) Deficiency of macronutrients; Translations: [Unspecified severe protein-calorie malnutrition] Onset: 3 Chronic Open wounds of head; neck; and trunk (12 sources) Scalp laceration; Translations: [Laceration without foreign body of scalp, initial encounter] 06-14-2021 Episodic Other circulatory disease (1 source) Orthostatic hypotension; Translations: [Orthostatic hypotension] Episodic Other circulatory disease (1 source) H/O: hypertension; Translations: [History of hypertension] Episodic Other connective tissue disease (1 source) Foot pain; Translations: [Foot pain] Episodic Other connective tissue disease (1 source) Cramp; Translations: [Cramp and spasm] 03-29-2023 Episodic Other connective tissue disease (3 sources) Spasm; Translations: [Other muscle spasm] 03-19-2023 Episodic Other diseases of bladder and urethra (20 sources) Overactive bladder; Translations: [Overactive bladder] 01-13-2023 Chronic Other diseases of bladder and urethra (6 sources) Overactive bladder; Translations: [Hypertonicity of bladder] Onset: 3 02-01-2023 Chronic Other fractures (13 sources) Closed fracture of four ribs; Translations: [Multiple fractures of ribs, right side, initial encounter for closed fracture] 11-16-2020 Episodic Other fractures (2 sources) Fracture of right rib; Translations: [Fracture of one rib, right side, initial encounter for closed fracture] 10-29-2019 Episodic Other gastrointestinal disorders (3 sources) History of placement of gastrostomy tube; Translations: [Gastrostomy status] 03-19-2023 Chronic Other gastrointestinal disorders (3 sources) Gastrostomy status; Translations: [Gastrostomy status] Onset: 3 02-01-2023 Chronic Other gastrointestinal disorders (8 sources) Dysphagia; Translations: [Dysphagia, unspecified] Onset: 3 12-24-2022 Episodic Other hereditary and degenerative nervous system conditions (6 sources) Dystonia; 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, unspecified] 11-07-2023 Chronic Other hereditary and degenerative nervous system conditions (7 sources) Focal dystonia; 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, unspecified] Chronic Other hereditary and degenerative nervous system conditions (1 source) Other dystonia; 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 of extremity] Onset: 5 Chronic Other hereditary and degenerative nervous system conditions (1 source) Dystonia, unspecified; 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] Onset: 5 Chronic Other injuries and conditions due to external causes (12 sources) Closed injury of head; Translations: [Unspecified injury of head, initial encounter] 06-14-2021 Episodic Other injuries and conditions due to external causes (1 source) At high risk for fall; Translations: [History of falling] Episodic Other lower respiratory disease (1 source) H/O: respiratory disease; Translations: [History of sleep apnea] Episodic Other nervous system disorders (1 source) Disorder of the peripheral nervous system; Translations: [Hereditary and idiopathic neuropathy, unspecified] Chronic Other nervous system disorders (1 source) Impairment of balance; Translations: [Imbalance] Episodic Other nervous system disorders (13 sources) Difficulty balancing when standing; Translations: [Other abnormalities of gait and mobility] 11-16-2020 Episodic Other nervous system disorders (2 sources) Abnormal gait; Translations: [Unspecified abnormalities of gait and mobility] Episodic Other nervous system disorders (5 sources) H/O: brain disorder; Translations: [Personal history of other diseases of the nervous system and sense organs] 07-23-2022 Episodic Other nervous system disorders (1 source) Personal history of other diseases of the nervous system and sense organs; Translations: [Personal history of other disorders of nervous system and sense organs] 07-23-2022 Episodic Other nutritional; endocrine; and metabolic disorders (1 source) H/O: diabetes mellitus; Translations: [History of type 1 diabetes mellitus] Episodic Parkinson`s disease (20 sources) Parkinson's disease; Translations: [Parkinson's disease] Onset: 9 Chronic Parkinson`s disease (3 sources) Parkinson`s disease; Translations: [Parkinson's disease with dyskinesia, without mention of fluctuations] Onset: 3 Peripheral and visceral atherosclerosis (2 sources) Atherosclerosis of [place] arteries of extremities with intermittent claudication, bilateral legs; Translations: [Peripheral vascular disease, unspecified] Onset: 3 Chronic Poisoning by other medications and drugs (1 source) Dopamine adverse reaction; Translations: [Dopamine adverse reaction] Episodic Residual codes; unclassified (2 sources) Insomnia co-occurrent and due to medical condition; Translations: [Insomnia due to medical condition] 11-07-2023 Chronic Residual codes; unclassified (2 sources) Activity of daily living (ADL) alteration; Translations: [Other specified health status] Episodic Septicemia (except in labor) (20 sources) Sepsis; Translations: [Sepsis, unspecified organism] Episodic Skin and subcutaneous tissue infections (20 sources) Cellulitis; Translations: [Cellulitis, unspecified] Episodic Superficial injury; contusion (16 sources) Abrasion of elbow, infected; Translations: [Abrasion of unspecified elbow, initial encounter] Episodic Unclassified (20 sources) Parkinsonism; Translations: [Parkinsonism] Onset: 3 12-25-2022 Chronic Unclassified (1 source) NO SHOW 05-09-2023 Unclassified (4 sources) Failure to thrive; Translations: [Failure to thrive] 03-19-2023 Unclassified (1 source) Esophagitis, unspecified without bleeding; Translations: [Esophagitis, unspecified without bleeding] Onset: 3 Past or Other Problems Problem Classification Problem Date Documented Da te Episodic/Chronic Administrative/social admission (20 sources) Other reduced mobility; Translations: [Other specified conditions influencing health status] Onset: 01-06-2023 Episodic Allergic reactions (20 sources) Contact dermatitis caused by chemical; Translations: [Allergic contact dermatitis due to adhesives] Onset: 01-11-2023 01-13-2023 Episodic Esophageal disorders (20 sources) Esophagitis; Translations: [Stafford grade D esophagitis] Onset: 01-13-2023 01-13-2023 Episodic Fluid and electrolyte disorders (20 sources) Lactic acidosis; Translations: [Acidosis] Onset: 01-12-2023 Episodic Genitourinary symptoms and ill-defined conditions (1 source) Hesitancy of micturition; Translations: [Hesitancy of micturition] Onset: 05-27-2023 Episodic Malaise and fatigue (20 sources) Asthenia; Translations: [Weakness] Onset: 12-25-2022 12-25-2022 Episodic Nutritional deficiencies (20 sources) Cachexia; Translations: [Cachexia] Onset: 01-21-2023 01-21-2023 Episodic Other aftercare (5 sources) Patient encounter status; Translations: [Encounter for palliative care] Onset: 01-06-2023 01-06-2023 Episodic Other connective tissue disease (20 sources) Nocturnal muscle spasm ; Translations: [Other muscle spasm] Onset: 01-06-2023 01-06-2023 Episodic Other connective tissue disease (3 sources) Other muscle spasm; Translations: [Spasm of muscle] Onset: 01-31-2023 02-01-2023 Episodic Other connective tissue disease (1 source) Recurrent falls ; Translations: [Frequent falls] Other fractures (11 sources) Fracture of rib; Translations: [Fracture of one rib, right side, initial encounter for closed fracture] 10-29-2019 Episodic Other gastrointestinal disorders (20 sources) Constipation; Translations: [Constipation, unspecified] Onset: 01-11-2023 01-13-2023 Episodic Other gastrointestinal disorders (20 sources) Oropharyngeal dysphagia; Translations: [Dysphagia, oropharyngeal phase] Onset: 12-25-2022 01-13-2023 Episodic Other gastrointestinal disorders (3 sources) Dysphagia, oropharyngeal phase; Translations: [Dysphagia, oropharyngeal phase] Onset: 01-31-2023 02-01-2023 Episodic Other gastrointestinal disorders (1 source) Dysphagia, unspecified; Translations: [Dysphagia, unspecified type] Onset: 03-16-2024 Episodic Other nutritional; endocrine; and metabolic disorders (1 source) Abnormal weight loss; Translations: [Weight loss] Onset: 12-25-2022 Episodic Urinary tract infections (10 sources) Urinary tract infectious disease; Translations: [Urinary tract infection, site not specified] Onset: 01-31-2023 02-09-2023 Episodic NEGATED: Highlighted row has not occurred!Residual codes; unclassified (5 sources) Disease Episodic Results Test Name Value Interpretation Reference Range Facility [facility] 07-26-2024 CNPN Telephone (NRMDN) KATHARINE LARSEN ([id number]) 1950 M Date Time Provider Department 07/26/24 TAISHA JOHN [facility] During your visit today, we recorded the following information about you: Hilda Florez MA 07/26/2024 3:25 PM Signed Received approval for Gocovri 68.5 mg from [employer]. IN# [id number] Dates: From 07/23/2024 until further notice. Allergies As of Date: 07/26/2024 Noted Allergy Reaction ABILIFY (ARIPIPRAZOLE) 11/09/2023 15 - Contraindication-Medi kelli Toscano* Comments: People with Parkinson's disease should not take this or other antipsychotics except Nuplazid, Seroquel, and Clozaril can be prescribed. CIPROFLOXACIN 11/07/2023 14 - Other: See Comments Comments: Tendon rupture (see black box warning)-this occurred in him when Cipro was used for cellulitis/sepsis COMPAZINE (PROCHLORPERAZINE) 11/09/2023 15 - Contraindication-Medi kelli Toscano* Comments: This should not be given to people with Parkinson's disease. If not otherwise contraindicated, Zofran should be given instead. HALDOL (HALOPERIDOL) 11/09/2023 15 - Contraindication-Medi kelli Toscano* Comments: People with Parkinson's disease should not take this or other antipsychotics except Nuplazid, Seroquel, and Clozaril can be prescribed. PENICILLIN G 03/16/2024 16 - Unknown Comments: Was told as a child he was allergic to this medication PENICILLINS 01/20/2013 16 - Unknown PHENERGAN (PROMETHAZINE) 11/09/2023 15 - Contraindication-Medi kelli Toscano* Comments: This should not be given to people with Parkinson's disease. If not otherwise contraindicated, Zofran should be given instead. REGLAN (METOCLOPRAMIDE) 11/09/2023 15 - Contraindication-Medi kelli Toscano* Comments: This should not be given to people with Parkinson's disease. If not otherwise contraindicated, Zofran should be given instead. ZYPREXA (OLANZAPINE) 07/22/2024 15 - Contraindication-Medi kelli Toscano* Comments: People with Parkinson's disease should not take this or other antipsychotics except Nuplazid, Seroquel, and Clozaril can be prescribed. Date Reviewed: 07/22/2024 Reviewed by: Taisha John APRN.DOUGH MIXING MACHINE OPERATOR - Fully Assessed Reason for Visit: Insurance Authorization [[id number]] Cmt: GoCov[employer] Prescriptions as of 07/26/2024 - vibegron (GEMTESA) 75 mg tablet Take 1 tablet by mouth once daily. - baclofen 10 mg tablet Take 1 tablet in the morning and afternoon and 0.5-1 tablet in the evening. - clonazePAM (KLONOPIN) 0.5 mg tablet Take 1 tablet by mouth daily at bedtime for 180 days. - amantadine HCl (SYMMETREL) 100 mg tablet Take 1 tablet by mouth once daily. - carbidopa IR-levodopa ER (CREXONT) 70-280 mg capsule Take 2 capsules by mouth three times a day. At 8am, 2pm and 8pm - rasagiline (AZILECT) 1 mg tab Take 1 tablet by mouth once daily. - carbidopa-levodopa (SINEMET) 25-100 mg per tablet 1 tab at 230AM, 2 tabs at 8AM, 11AM, 2PM, 5PM and 1.5 tabs at 8PM - acetaminophen (TYLENOL) 325 mg tablet Take 2 tablets by mouth every 4 hours as needed for pain or fever (specify temp.). - solifenacin succinate (SOLIFENACIN ORAL) Take by mouth daily at bedtime. Pt and unsure of dosage - levodopa (INBRIJA) 42 mg (Discontinued) Inhale 2 capsules as instructed as needed. Take as needed up to 5 times daily Problem List As Of Date 07/26/2024 Noted Resolved Parkinson's disease with dyskinesia and fluctua*11/12/2018 Severe protein-calorie malnutrition (HCC) [E43] 04/25/2022 Parkinsonism [G20.C] 12/25/2022 Physical debility [R53.81] 12/25/2022 Oropharyngeal dysphagia [R13.12] 12/25/2022 Type 2 diabetes mellitus without complication, * Essential hypertension [I10] 12/29/2022 Night muscle spasms [M62.838] 01/06/2023 ACP (advance care planning) [Z71.89] 01/06/2023 Contact dermatitis due to adhesives [L23.1] 01/11/2023 Constipation [K59.00] 01/11/2023 Hyponatremia [E87.1] 01/12/2023 Stafford grade D esophagitis [K20.80] 01/13/2023 BPH (benign prostatic hyperplasia) [N40.0] OAB (overactive bladder) [N32.81] Leukocytosis [D72.829] 01/13/2023 Cachexia (HCC) [R64] 01/21/2023 Encounter Status:Closed by HILDA FLOREZ on 07/26/24 [facility] [place] 07-23-2024 [facility] Telephone (MERRY) KATHARINE LARSEN ([id number]) 1950 M Date Time Provider Department 07/23/24 TAISHA JOHN During your visit today, we recorded the following information about you: Amira Dixon MA 07/23/2024 8:45 AM Signed Gocoveri prescription forms faxed to [employer] confirmation received Allergies As of Date: 07/23/2024 Noted Allergy Reaction ABILIFY (ARIPIPRAZOLE) 11/09/2023 15 - Contraindication-Medi kelli Toscano* Comments: People with Parkinson's disease should not take this or other antipsychotics except Nuplazid, Seroquel, and Clozaril can be prescribed. CIPROFLOXACIN 11/07/2023 14 - Other: See Comments Comments: Tendon rupture (see black box warning)-this occurred in him when Cipro was used for cellulitis/sepsis COMPAZINE (PROCHLORPERAZINE) 11/09/2023 15 - Contraindication-Medi kelli Toscano* Comments: This should not be given to people with Parkinson's disease. If not otherwise contraindicated, Zofran should be given instead. HALDOL (HALOPERIDOL) 11/09/2023 15 - Contraindication-Medi kelli Toscano* Comments: People with Parkinson's disease should not take this or other antipsychotics except Nuplazid, Seroquel, and Clozaril can be prescribed. PENICILLIN G 03/16/2024 16 - Unknown Comments: Was told as a child he was allergic to this medication PENICILLINS 01/20/2013 16 - Unknown PHENERGAN (PROMETHAZINE) 11/09/2023 15 - Contraindication-Medi kelli Toscano* Comments: This should not be given to people with Parkinson's disease. If not otherwise contraindicated, Zofran should be given instead. REGLAN (METOCLOPRAMIDE) 11/09/2023 15 - Contraindication-Medi kelli Toscano* Comments: This should not be given to people with Parkinson's disease. If not otherwise contraindicated, Zofran should be given instead. ZYPREXA (OLANZAPINE) 07/22/2024 15 - Contraindication-Medi kelli Toscano* Comments: People with Parkinson's disease should not take this or other antipsychotics except Nuplazid, Seroquel, and Clozaril can be prescribed. Date Reviewed: 07/22/2024 Reviewed by: Taisha John APRN.DOUGH MIXING MACHINE OPERATOR - Fully Assessed Reason for Visit: Orders [921] Cmt: Kat Rx form Prescriptions as of 07/23/2024 - vibegron (GEMTESA) 75 mg tablet Take 1 tablet by mouth once daily. - baclofen 10 mg tablet Take 1 tablet in the morning and afternoon and 0.5-1 tablet in the evening. - clonazePAM (KLONOPIN) 0.5 mg tablet Take 1 tablet by mouth daily at bedtime for 180 days. - amantadine HCl (SYMMETREL) 100 mg tablet Take 1 tablet by mouth once daily. - carbidopa IR-levodopa ER (CREXONT) 70-280 mg capsule Take 2 capsules by mouth three times a day. At 8am, 2pm and 8pm - rasagiline (AZILECT) 1 mg tab Take 1 tablet by mouth once daily. - carbidopa-levodopa (SINEMET) 25-100 mg per tablet 1 tab at 230AM, 2 tabs at 8AM, 11AM, 2PM, 5PM and 1.5 tabs at 8PM - acetaminophen (TYLENOL) 325 mg tablet Take 2 tablets by mouth every 4 hours as needed for pain or fever (specify temp.). - solifenacin succinate (SOLIFENACIN ORAL) Take by mouth daily at bedtime. Pt and unsure of dosage - levodopa (INBRIJA) 42 mg (Discontinued) Inhale 2 capsules as instructed as needed. Take as needed up to 5 times daily Problem List As Of Date 07/23/2024 Noted Resolved Parkinson's disease with dyskinesia and fluctua*11/12/2018 Severe protein-calorie malnutrition (HCC) [E43] 04/25/2022 Parkinsonism [G20.C] 12/25/2022 Physical debility [R53.81] 12/25/2022 Oropharyngeal dysphagia [R13.12] 12/25/2022 Type 2 diabetes mellitus without complication, * Essential hypertension [I10] 12/29/2022 Night muscle spasms [M62.838] 01/06/2023 ACP (advance care planning) [Z71.89] 01/06/2023 Contact dermatitis due to adhesives [L23.1] 01/11/2023 Constipation [K59.00] 01/11/2023 Hyponatremia [E87.1] 01/12/2023 Stafford grade D esophagitis [K20.80] 01/13/2023 BPH (benign prostatic hyperplasia) [N40.0] OAB (overactive bladder) [N32.81] Leukocytosis [D72.829] 01/13/2023 Cachexia (HCC) [R64] 01/21/2023 Encounter Status:Closed by AMIRA DIXON on 07/23/24 [facility] 07-22-2024 CNOV Office Visit (NRMDN) KATHARINE LARSEN ([id number]) 1950 M Date Time Provider Department 07/22/24 10:00 AM TAISHA JOHN During your visit today, we recorded the following information about you: Pulse Blood pressure Height 96/minute 130/84 1.702 m Taisha John APRN.DOUGH MIXING MACHINE OPERATOR 07/23/2024 4:18 PM Signed [facility] - FOLLOW UP EVALUATION Recording using [employer] software for draft documentation of the visit was discussed with the patient/authorized customer service representative teller; all questions welcomed and answered. Patient/authorized customer service representative teller agreed to proceed Nico Schmidt MD [address] [facility] [address] [facility] [id number] Dear Nico Schmidt MD: I had the pleasure of seeing Mr. Larsen for follow-up today. As you know he is a 73 year old left-handed male with a history of Parkinson's disease complicated by motor fluctuations and dyskinesia since 2012. Subjective Previous Plan-11/07/2023 Visit: Parkinson's disease/Dystonia: Continue current Parkinson's disease medication schedule though we may consider increasing the amantadine in the future Continue exercising Continue physical therapy I am adding clonazepam at bedtime to help the nighttime dystonia and insomnia. You will take 1/2 tablet at bedtime for a week and then take 1 tablet. For the dystonia, since at times the Baclofen seems to be making it worse, at 2pm, take 1/2 tablet for 5 days and then discontinue that dose. If it is better, let me know and we will discuss weaning you off other doses. If it is worse, then you can go back on it and we may increase the dose if needed. Interval History: Kavon is accompanied by his , who provides additional history. Kavon reports increased episodes of rigidity and bouncing movements, particularly between 2:00 and 3:00 PM and around 10:30 PM. He does not endorse tremors or falls. He previously took Rytary, which he found more effective, but discontinued it due to insurance issues. He has not tried the Crexont for the same reason. He does not endorse lightheadedness upon standing, urinary issues, or constipation. He reports a reduction in drooling over the past week, which he attributes to avoiding chocolate. He does not endorse swallowing difficulties and is using a device to strengthen tongue muscles. He reports sleeping well without acting out dreams and does not take naps during the day. He does not endorse fatigue. He occasionally experiences mild swelling in his feet, particularly in the toes. He reports occasional feelings of depression but does not endorse anxiety, apathy, or compulsive behaviors. He does not endorse hallucinations and describes his memory and thinking as pretty good. He is currently participating in physical therapy and works with a head athletic trainer twice a week. He is also involved in the [employer] and plans to resume the program at the end of September. His grandson assists him with exercises from the [employer] project twice a day. He has a living will and a durable power of criminal defense attorney for healthcare. He does not currently have palliative care services. Other symptoms and details are noted below in the completed questionnaire. 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) Questionnaires: In addition, the following areas that may be affected by abnormal involuntary movements were evaluated: Daily activities Difficulties with eating: Difficulties in dressing: Difficulties with hygiene activities: Difficulties with handwriting: Difficulties with doing hobbies and other activities: Difficulties turning in bed: Difficulties getting out of bed, car or chair: Tremors/Gait/Balance Shaking or tremors: Walking and balance problems: Number of falls in the Last Month: Gait freezing: Autonomic/Pain Lightheadeness on standing: Urinary problems: Waiting for Gemtesa approval Constipation problems: Pain and other sensations: Speech/Swallowing Speech problems: Drooling: Chewing and swallowing problems: Sleep/Fatigue Sleep problems: Daytime sleepiness: Fatigue: In addition, the following non-motor symptoms and palliative concerns were evaluated: Sleep/Fatigue: REM sleep behavior disorder: No Restless Legs Syndrome: No Leg swelling: Occasionally one foot or the other is swollen. Impaired sense of smell: Yes Co (more content not included)... Normal [facility] CNOVon 07-02-2024 CNOV Office Visit (NRMDN) KATHARINE LARSEN ([id number]) 1950 M Date Time Provider Department 07/02/24 11:00 AM CAROLINA DAMON During your visit today, we recorded the following information about you: Pulse Blood pressure 81/minute 161/97 Carolina Damon MD 07/02/2024 11:40 AM Signed [facility] NEUROLOGICAL TENRIISM NEUROTOXIN VISIT Date: July 02, 2024 Name: Katharine Jerod Suzie SUBJECTIVE: Subjective history Injections were effective. Toes never uncurled but pain and spasms were better. Effect wore off 5 weeks ago so he was able to realize that it is working. 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) Date of diagnosis: 11/12/2018 Other treatments that have been tried and failed: Medications for Parkinson's Date of first neurotoxin treatment: 03/08/2019 Type of neurotoxin given: OnabotulinumtoxinA (Botox) Frequency of current neurotoxin treatment: 90 days Estimated frequency and duration of treatment: continue with current injection interval; will reassess after 1 year Last Injection Notes Date of last Injection: 04/02/2024 Type of neurotoxin: OnabotulinumtoxinA (Botox) Total amount injected: 190 units Degree of effectiveness of last injection:50% Duration of effect: 8 week(s) Side effects related to last injection: None Current pain symptoms: No Current functional limitations: moderate Last neurotoxin regimen: Med right left midline Quadratus plantae 45 50 Flexor digitorum brevis 45 50 Total: 190 Allergies: ALLERGIES Allergen Reactions Abilify [Aripiprazo* Contraindication-[facility] People with Parkinson's disease should not take this or other antipsychotics except Nuplazid, Seroquel, and Clozaril can be prescribed. Ciprofloxacin Other: See Comments Tendon rupture (see black box warning)-this occurred in him when Cipro was used for cellulitis/sepsis Compazine [Prochlor* Contraindication-[facility] This should not be given to people with Parkinson's disease. If not otherwise contraindicated, Zofran should be given instead. Haldol [Haloperidol] Contraindication-[facility] People with Parkinson's disease should not take this or other antipsychotics except Nuplazid, Seroquel, and Clozaril can be prescribed. Penicillin G Unknown Was told as a child he was allergic to this medication Penicillins Unknown Phenergan [Prometha* Contraindication-[facility] This should not be given to people with Parkinson's disease. If not otherwise contraindicated, Zofran should be given instead. Reglan [Metoclopram* Contraindication-[facility] This should not be given to people with Parkinson's disease. If not otherwise contraindicated, Zofran should be given instead. Current Medications: Current Outpatient Medications Medication Sig baclofen 10 mg tablet Take 1 tablet in the morning and afternoon and 0.5-1 tablet in the evening. clonazePAM (KLONOPIN) 0.5 mg tablet Take 1 tablet by mouth daily at bedtime for 180 days. amantadine HCl (SYMMETREL) 100 mg tablet Take 1 tablet by mouth once daily. rasagiline (AZILECT) 1 mg tab Take 1 tablet by mouth once daily. carbidopa-levodopa (SINEMET) 25-100 mg per tablet 1 tab at 230AM, 2 tabs at 8AM, 11AM, 2PM, 5PM and 1.5 tabs at 8PM (Patient taking differently: 1 tab at 330AM, 2 tabs at 8AM, 11AM, 2PM, 5PM and 1.5 tabs at 8PM) acetaminophen (TYLENOL) 325 mg tablet Take 2 tablets by mouth every 4 hours as needed for pain or fever (specify temp.). carbidopa IR-levodopa ER (CREXONT) 70-280 mg capsule Take 2 capsules by mouth three times a day. At 8am, 2pm and 8pm vibegron (GEMTESA) 75 mg tablet Take 1 tablet by mouth once daily. (Patient not taking: Reported on 04/02/2024) solifenacin succinate (SOLIFENACIN ORAL) Take by mouth daily at bedtime. Pt and unsure of dosage Current Facility-Administered Medications Medication Dose Route Frequency onabotulinum toxin type A 300 Units injection (BOTOX) 300 Units INTRAMUSCULAR ONCE OBJECTIVE: BP 161/97 (BP Site: Left Arm, BP Position: Sitting, BP Cuff Size: Regular Adult) Pulse 81 SpO2 95% Other notable exam findings: moderate curling of toes both feet. ASSESSMENT AND PLAN: Mr. 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 Botox is effective with wearing off last time 4-5 weeks early. Dose increased today. After obtaining informed consent, neurotoxin injections were carried out as outlined below. Current Injection Note Type of neurotoxin: OnabotulinumtoxinA (Botox) Total amount drawn: 300 units Total amount injected: 240 units Total amount wasted: 60 units Dilution: 1 cc NSS/100 U Administered with EMG guidance: No Administered with Ultrasound guidance: No Lot#: [id number] Exp Date: 11/2026 Today's neurotoxin regimen: Med right left midline Quadratus plantae 60 60 Flexor di (more content not included)... Normal [facility] CNOVon 04-02-2024 CNOV Office Visit (NRMDN) KATHARINE LARSEN ([id number]) 1950 M Date Time Provider Department 04/02/24 9:30 AM CAROLINA DAMON NRMDN During your visit today, we recorded the following information about you: Pulse Blood pressure 88/minute 172/105 Carolina Damon MD 04/02/2024 10:18 AM Signed [facility] NEUROTOXIN VISIT Date: April 02, 2024 Name: Katharine Larsen SUBJECTIVE: Subjective history Injections were not effective. Toes never uncurled. 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) Date of diagnosis: 11/12/2018 Other treatments that have been tried and failed: Medications for Parkinson's Date of first neurotoxin treatment: 03/08/2019 Type of neurotoxin given: OnabotulinumtoxinA (Botox) Frequency of current neurotoxin treatment: 90 days Estimated frequency and duration of treatment: continue with current injection interval; will reassess after 1 year Last Injection Notes Date of last Injection: 11/14/2023 Type of neurotoxin: OnabotulinumtoxinA (Botox) Total amount injected: 190 units Degree of effectiveness of last injection:0% Duration of effect: 0 week(s) Side effects related to last injection: None Current pain symptoms: No Current functional limitations: moderate Last neurotoxin regimen: Med right left midline Quadratus plantae 45 50 Flexor digitorum brevis 45 50 Total: 190 Questionnaires: Allergies: ALLERGIES Allergen Reactions Abilify [Aripiprazo* Contraindication-[facility] People with Parkinson's disease should not take this or other antipsychotics except Nuplazid, Seroquel, and Clozaril can be prescribed. Ciprofloxacin Other: See Comments Tendon rupture (see black box warning)-this occurred in him when Cipro was used for cellulitis/sepsis Compazine [Prochlor* Contraindication-[facility] This should not be given to people with Parkinson's disease. If not otherwise contraindicated, Zofran should be given instead. Haldol [Haloperidol] Contraindication-[facility] People with Parkinson's disease should not take this or other antipsychotics except Nuplazid, Seroquel, and Clozaril can be prescribed. Penicillin G Unknown Was told as a child he was allergic to this medication Penicillins Unknown Phenergan [Prometha* Contraindication-[facility] This should not be given to people with Parkinson's disease. If not otherwise contraindicated, Zofran should be given instead. Reglan [Metoclopram* Contraindication-[facility] This should not be given to people with Parkinson's disease. If not otherwise contraindicated, Zofran should be given instead. Current Medications: Current Outpatient Medications Medication Sig amantadine HCl (SYMMETREL) 100 mg tablet Take 1 tablet by mouth once daily. carbidopa IR-levodopa ER (CREXONT) 70-280 mg capsule Take 2 capsules by mouth three times a day. At 8am, 2pm and 8pm rasagiline (AZILECT) 1 mg tab Take 1 tablet by mouth once daily. clonazePAM (KLONOPIN) 0.5 mg tablet Take 1/2 tablet at bedtime for one week and then take 1 tablet at bedtime carbidopa-levodopa (SINEMET) 25-100 mg per tablet 1 tab at 230AM, 2 tabs at 8AM, 11AM, 2PM, 5PM and 1.5 tabs at 8PM baclofen 10 mg tablet Take 1 tablet in the morning and afternoon and 1/2 tablet in the evening for one week and then take 1 tablet three times daily acetaminophen (TYLENOL) 325 mg tablet Take 2 tablets by mouth every 4 hours as needed for pain or fever (specify temp.). vibegron (GEMTESA) 75 mg tablet Take 1 tablet by mouth once daily. (Patient not taking: Reported on 04/02/2024) solifenacin succinate (SOLIFENACIN ORAL) Take by mouth daily at bedtime. Pt and unsure of dosage (Patient not taking: Reported on 04/02/2024) Current Facility-Administered Medications Medication Dose Route Frequency onabotulinum toxin type A 200 Units injection (BOTOX) 200 Units INTRAMUSCULAR ONCE OBJECTIVE: BP 172/105 (BP Site: Left Arm, BP Position: Sitting, BP Cuff Size: Regular Adult) Pulse 88 SpO2 96% Other notable exam findings: moderate curling of toes both feet. ASSESSMENT AND PLAN: Mr. 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 Last injection as not helpful. Repeated same injection pattern. Will increase dose next time if again still not effective. After obtaining informed consent, neurotoxin injections were carried out as outlined below. Current Injection Note Type of neurotoxin: OnabotulinumtoxinA (Botox) Total amount drawn: 200 units Total amount injected: 190 units Total amount wasted: 10 units Dilution: 1 cc NSS/100 U Administered with EMG guidance: No Administered with Ultrasound guidance: No Lot#: [id number] Exp Date: 05/2026 Today's neurotoxin regimen: Med right left midline Quadratus plantae 45 50 Flexor digitorum brevis 45 50 Total (more content not included)... Normal [facility] CNOVon 03-16-2024 CNOV Office Visit (NRMDN) KATHARINE LARSEN ([id number]) 1950 M Date Time Provider Department 03/16/24 3:30 PM TAISHA JOHN BERONICA During your visit today, we recorded the following information about you: Pulse Blood pressure Height 95/minute 139/87 1.702 m Taisha John APRN.CNP 03/20/2024 4:50 PM Signed [facility] - FOLLOW UP EVALUATION Primary Movement Disorders Neurologist: Juan R John MD Primary Movement Disorders [facility]: JAYA Nelson MD [address] [facility] [address] [facility] [id number] Dear Nico Schmidt MD: I had the pleasure of seeing Mr. Larsen for follow-up today. As you know he is a 73 year old left-handed male with a history of Parkinson's disease complicated by motor fluctuations and dyskinesia since 2012. He is seen with his and grandson. Subjective 11/07/2023 Visit: Parkinson's disease/Dystonia: Continue current Parkinson's disease medication schedule though we may consider increasing the amantadine in the future Continue exercising Continue physical therapy I am adding clonazepam at bedtime to help the nighttime dystonia and insomnia. You will take 1/2 tablet at bedtime for a week and then take 1 tablet. For the dystonia, since at times the Baclofen seems to be making it worse, at 2pm, take 1/2 tablet for 5 days and then discontinue that dose. If it is better, let me know and we will discuss weaning you off other doses. If it is worse, then you can go back on it and we may increase the dose if needed. Urology: I have placed a consult for urology, but since you have a known UTI, if you cannot get in soon, please go to an [facility] clinic Interval History: He was sick with flu-like symptoms in January and this took a toll on him. He is having significant stiffness right now in the office, but they said this is not typical for him. His main concern is food getting stuck in his mouth and not swallowing. It is not any worse then when he has his last MBS. His feeding tube has been removed. The clonazepam prescribed at his last visit, helped significantly with sleep and morning dystonia. Movement Disorders Medications Schedule - as of the start of the visit: Medications 230am 8am 11am 2pm 5pm 8pm 11pm Sinemet 25/100 1 2 2 2 2 1.5 Baclofen 10 mg 1 1 Rasagiline 1 mg 1 Amantadine 100 mg 1 Clonazepam 0.5mg 1/2->1 Parkinson's Motor Complications Medication benefit onset: 30 minutes Medication duration: 4 hours Wearing off: yes Painful off-state dystonia: yes Dyskinesia: yes Prior Anti-Parkinson Therapies Amantadine IR Carbidopa/Levodopa ER (Rytary) Rasagiline Questionnaires: In addition, the following areas that may be affected by abnormal involuntary movements were evaluated: Daily activities Difficulties with eating: Yes (mild) Difficulties in dressing: Yes (moderate) Difficulties with hygiene activities: Yes (mild) Difficulties with handwriting: Yes (moderate) Difficulties with doing hobbies and other activities: Yes (slight) Difficulties turning in bed: Yes (mild) Difficulties getting out of bed, car or chair: Yes (severe) Tremors/Gait/Balance Shaking or tremors: Yes (slight) Walking and balance problems: Yes (severe) He does walk some with PT. Number of falls in the Last Month: 0 Gait freezin (none) Autonomic/Pain Lightheadeness on standin (none) Urinary problems: Yes (slight) Constipation problems: 0 (none) Pain and other sensations: Yes (slight) Speech/Swallowing Speech problems: Yes (moderate) Drooling: Yes (moderate) Chewing and swallowing problems: Yes (slight) Sleep/Fatigue Sleep problems: Yes (moderate) He sleeps like a rock with the clonazepam. Daytime sleepiness: Yes (slight) Fatigue: Yes (slight) Mood/Behavior Depression: PHQ-9 Score: 4 usually representing no significant (0-4) depression. Anxiety: KAVIN-7 Total Score: 1 usually representing no significant (0-4) anxiety. Finally, the following table shows the patient's overall global physical and mental health using the PROMIS scale: PROMIS-10 Flowsheet Row Office Visit from 03/16/2024 in Neurology Office Visit from 11/07/2023 in Neurology Global Physical Health T Score 39.8 34.9 Global Mental Health T Score 53.3 50.8 0-10 Standard Pain Scale 4 3 *PROMIS-10 scoring scale: mean = 50, over 50 is above average, under 50 is below average In addition, the following non-motor symptoms and palliative concerns were evaluated: Sleep/Fatigue: REM sleep behavior disorder: No Restless Legs Syndrome: No Leg swelling: Occasionally one foot or the other is swollen. Impaired sense of smell: Yes Cognition: Memory and Thinkin - Slight. Impairment appreciated by me or my caregiver with no concrete interference with my ability to carry out normal activities and social interactions. Hallucinations (more content not included)... Normal [facility] Metabolic Prof ilon 12-05-2023 Albumin [Mass/Vol] 3.2 g/dL Normal 3.2-5.0 [facility] Comment on above: Performed By: #### L [id number] ####[facility] [address] [place], [address] Albumin/Globulin [Mass ratio] 0.8 {ratio} Low 0.9-2.4 [facility] Comment on above: Performed By: #### L [id number] ####[facility] [address] [place], [place], [id number] ALK P 93 U/L Normal 45-117 [facility] Comment on above: Performed By: #### L [id number] ####[facility] [address] [place], [address] ALT [Catalytic activity/Vol] 8 U/L Low 16-61 [facility] Comment on above: Performed By: #### [id number] ####[facility] [address] [place], [address] AST [Catalytic activity/Vol] 15 U/L Normal 15-37 [facility] Comment on above: Performed By: #### L [id number] ####[facility] [address] [place], [address] Bilirubin [Mass/Vol] 0.80 mg/dL Normal 0.20-1.00 [facility] Comment on above: Result Comment: For patients on eltrombopag therapy, use of Dimension [place] TBIL is not recommended. Performed By: #### L [id number] ####[facility] [address] [place], [address] BUN/CRE 17.3 RATIO Normal 10-20 [facility] Comment on above: Performed By: #### L [id number] ####[facility] [address] [place], [address] CA,Total 9.3 mg/dL Normal 8.5-10.1 [facility] Comment on above: Performed By: #### L [id number] ####[facility] [address] [place], [address] Chloride [Moles/Vol] 104 mmol/L Normal 98-107 [facility] Comment on above: Performed By: #### L [id number] ####[facility] [address] [place], [address] CO2 [Moles/Vol] 28.0 mmol/L Normal 21.0-32.0 [facility] Comment on above: Performed By: #### L [id number] ####[facility] [address] [place], [address] Creatinine [Mass/Vol] 1.10 mg/dL Normal 0.70-1.30 [facility] Comment on above: Result Comment: The validity of the calculated GFR GFRAA in patients over 70 years has not been determined. Clinical correlation is essential. Performed By: #### L [id number] ####[facility] [address] [place], [address] EST GFR - AA 84 mL/min Normal >60 [facility] Comment on above: Result Comment: Afri can [place] GFR Calc Performed By: #### L [id number] ####[facility] [address] [place], [address] GAP 4 Low 5-15 [facility] Comment on above: Performed By: #### L [id number] ####[facility] [address] [place], [address] GFR/1.73 sq M.predicted among non-blacks MDRD (S/P/Bld) [Vol rate/Area] 69 mL/min/{1.73_m2} Normal >60 [facility] Comment on above: Result Comment: Non- GFR Calc Performed By: #### L [id number] ####[facility] [address] [place], [address] Globulin (S) [Mass/Vol] 4.2 g/dL Normal 2.2-4.2 [facility] Comment on above: Performed By: #### L [id number] ####[facility] [address] [place], [address] Glucose [Mass/Vol] 87 mg/dL Normal 74-106 [facility] Comment on above: Performed By: #### L 500.4050 ####[facility] [address] [place], [address] Potassium [Moles/Vol] 4.0 mmol/L Normal 3.5-5.1 [facility] Comment on above: Performed By: #### L [id number] ####[facility] [address] [place], [place], [id number] Sodium [Moles/Vol] 136 mmol/L Normal 136-145 [facility] Comment on above: Performed By: #### L [id number] ####[facility] [address] [place], [place], [id number] T PROT 7.4 g/dL Normal 6.4-8.2 [facility] Comment on above: Performed By: #### L 500.4050 ####[facility] [address] [place], [address] Urea nitrogen [Mass/Vol] 19 mg/dL High 7-18 [facility] Comment on above: Performed By: #### L [id number] ####[facility] [address] [place], [place], [id number] Bacteria Ur Culton 4 Bacteria identified Cx Nom (U) ORGANISM ID: 1 1,000 - <5,000 CFU/ml Normal urogenital arslan Normal [facility] Comment on above: Performed By: #### 6 30-4 ####[facility] LABCLIA [id number] [address] OF [facility] CNOVon 11-28-2023 CNOV Office Visit (UROLMD ) KATHARINE LARSEN ([id number]) 1950 M Date Time Provider Department 11/28/23 1:00 PM KAYODE GUZMAN During your visit today, we recorded the following information about you: Kayode Guzman MD 11/28/2023 2:12 PM Signed [facility] UROLOGY CLINIC NOTE Patient: Katharine Larsen Provider: Kayode Guzman MD : 1950 Date of Service: 11/28/2023 PCP: Nico Schmidt MD Chief complaint/Identificat ion: Katharine Larsen is a 73 year old male patient who presents for evaluation of overactive bladder . ASSESSMENT: 1. Urinary incontinence, unspecified type - ICD9: 788.30, ICD10: R32 (primary diagnosis) 2. Overactive bladder - ICD9: 596.51, ICD10: N32.81 3. Urinary tract infection without hematuria, site unspecified - ICD9: 599.0, ICD10: N39.0 Urinary urgency, no significant improvement with Vesicare or Myrbetriq. Myrbetriq also stopped due to cost and possible issue with feeding tube. UTI -no prior records available PLAN: Get straight cath specimen for UA/UCx Trial Gemtesa instead of Solifenacin. If cost is prohibitive, can attempt to obtain through [email or web address] in [place]. Follow up in [place] with [facility] in 3 mo Kayode Guzman MD REFERRED BY: Consultation requested by Taisha John NP for an opinion regarding urologic diagnosis and my final recommendations will be communicated back to the requesting physician by way of shared medical record or letter via US mail. HPI: PMHx: Parkinson's disease 11/28/2023 Referred by neurology for overactive bladder, UTI. No culture results in the medical record. Had CT in 2022 with non-enlarged prostate, but very large stool burden throughout colon. Reports hx of constipation previously, and had period of needing a feeding tube that was removed recently, and now endorses regular BMs. Presents in wheelchair. Reports hx of UTI, several courses of abx, but no culture results. Also reports urinary urgency. Not significant frequency. Incontinent into Depends (too difficult to get to toilet due to mobility issues) Saw Dr. Kyle in [place] 1 mo ago. Recommended course of Cipro, but patient unable to take it. Straight cath specimen for UA/UCx. Trial Gemtesa. 3 mo FU in [place]. BPH History: PSA: 0.52 (03/12/2017) No history of prostate biopsy Prior prostate procedures: No Prostate size: - Unclear, but non-enlarged on CT 2022 Current meds: Solifenacin Prior/failed meds: Myrbetriq (stopped d/t cost and PVR: - (11/28/2023) 80 mL Uroflow: unable to do Current meds: Vesicare Prior/failed meds: Myrbetriq OTHER UROLOGIC HISTORY: - Kidney/Bladder/Prosta te/Testis cancer: No REVIEW OF SYSTEMS: A ROS was performed and pertinent negatives and positives can be found in the HPI. RELEVANT IMAGING STUDIES (most recent): CT ABD/PEL WO IVCON Result Date: 01/11/2023 IMPRESSION: No free intraperitoneal air. Recent x-ray appearance was likely artifactual High-density large stool burden diffusely throughout the colon Edema throughout the subcutaneous tissues and intra-abdominal fat planes Mild superior endplate depression T12, age-indeterminate Lung base nodules up to 6 mm. These can be further assessed with dedicated nonemergent chest CT ACTIONABLE RESULT: FOLLOW-UP Acuity: Actionable Findings: Thoracic-Lung nodules Routing code: RI_1 Recommendation: CT Chest WO IVCON Time Frame: Additional evaluation as described in the impression COMMUNICATION: Results will be communicated with the ordering provider via [employer] staff message or phone message by [employer] within 2 business days of report finalization. --END OF FINDING-- Dry Chain Worker: PSCB Transcribe Date/Time: Jan 11 2023 2:20P Dictated by : ELI SCHNEIDER MD This examination was interpreted and the report reviewed and electronically signed by: ELI SCHNEIDER MD on Jan 11 2023 2:36PM EST LABS/INVESTIGATIONS: Urine Chemstrip: URINE POC No results found for this basename: uglucpoc,ubilipoc,uke tonpoc,usgpoc,uhbpoc, uphpoc,upropoc,uuropo c,unitpoc,uwbcpo- c,ucolpoc,uclarpoc Creatinine Date Value Ref Range Status 01/14/2023 0.85 0.73 - 1.22 mg/dL Final 01/13/2023 0.88 0.73 - 1.22 mg/dL Final 01/12/2023 0.86 0.73 - 1.22 mg/dL Final 01/11/2023 0.92 0.73 - 1.22 mg/dL Final Hemoglobin (g/dL) Date Value 01/14/2023 11.0 Hematocrit (%) Date Value 01/14/2023 34.2 WBC (k/uL) Date Value 01/14/2023 11.92 No results found for: PSA, PSAPER HISTORIES FAMILY HISTORY Problem Relation Age of Onset Diabetes Father Hypertension Father Hyperlipidemia Father other (TIA) Father Hypertension Mother Thyroid Mother other (Parkinsons Disease [Other]) Other Cousin Systemic Lupus Erythematosus No Family Histo (more content not included)... Normal [facility] Urinalysis complete panel (U )Ordered By: Grayson Bailey on 11-28-2023 Bilirubin Ql (U) Negative Negative [facility] Clarity (Unsp spec) Clear Clear [facility] Color (U) Yellow Yellow [facility] Glucose Test strip (U) [Mass/Vol] Negative Negative [facility] Hemoglobin Ql (U) Negative Negative [facility] Interpretation and review of laboratory results Abnormal [facility] Ketones Ql (U) Trace Abnormal Negative [facility] Leukocyte esterase Test strip Ql (U) Negative Negative [facility] Nitrite Ql (U) Negative Negative [facility] pH (U) 6.0 [pH] 5.0 - 8.0 [facility] Protein (U) [Mass/Vol] Trace Abnormal Negative [facility] RBC LM.HPF (Urine sed) [#/Area] 0-3 /HPF 0-3 /HPF [facility] Specific gravity (U) [Rel density] 1.020 1.005 - 1.030 [facility] Urobilinogen Ql (U) 0.2 EU/dL 0.2-1.0 EU/dL [facility] WBC LM.HPF (Urine sed) [#/Area] 0-5 /HPF 0-5 /HPF [facility] Urinalysis complete panel (U )on 11-28-2023 Bilirubin Ql (U) Negative Normal Negative [facility] Comment on above: Order Comment: Speci men Type: URINE SPECIMENOrdering Facility: [facility] Address: [address] [place] [address] Performed By: #### 2 4356-8 ####LYN LABORATORYCLIA [id number] [place] [address] [place] Clarity (Unsp spec) Clear Normal Clear [facility] Comment on above: Order Comment: Speci men Type: URINE SPECIMENOrdering Facility: [facility] Address: [address] [place] [address] Performed By: #### 2 4356-8 ####LYN LABORATORYCLIA [id number] [place] [address] [place] Color (U) Yellow Normal Yellow [facility] Comment on above: Order Comment: Speci men Type: URINE SPECIMENOrdering Facility: [facility] Address: [address] [place] [address] Performed By: #### 2 4356-8 ####LYN LABORATORYCLIA [id number] [place] [id number] [place] Glucose Test strip (U) [Mass/Vol] Negative Normal Negative [facility] Comment on above: Order Comment: Speci men Type: URINE SPECIMENOrdering Facility: [facility] Address: [address] [place] [address] Performed By: #### 2 4356-8 ####LYN LABORATORYCLIA [id number] [place] [id number] [place] Hemoglobin Ql (U) Negative Normal Negative [facility] Comment on above: Order Comment: Speci men Type: URINE SPECIMENOrdering Facility: [facility] Address: [address] [place] [address] Performed By: #### 2 4356-8 ####LYN LABORATORYCLIA [id number] [place] [address] [place] Ketones Ql (U) Trace Abnormal Negative [facility] Comment on above: Order Comment: Speci men Type: URINE SPECIMENOrdering Facility: [facility] Address: [address] [place] [address] Performed By: #### 2 4356-8 ####LYN LABORATORYCLIA [id number] [address] Leukocyte esterase Test strip Ql (U) Negative Normal Negative [facility] Comment on above: Order Comment: Speci men Type: URINE SPECIMENOrdering Facility: [facility] Address: [address] [place] [address] Performed By: #### 2 4356-8 ####LYN LABORATORYCLIA [id number] [place] [address] [place] Nitrite Ql (U) Negative Normal Negative [facility] Comment on above: Order Comment: Speci men Type: URINE SPECIMENOrdering Facility: [facility] Address: [address] [place] [address] Performed By: #### 2 4356-8 ####LYN LABORATORYCLIA [id number] [place] [address] [place] pH (U) 6.0 [pH] Normal 5.0-8.0 [facility] Comment on above: Order Comment: Speci men Type: URINE SPECIMENOrdering Facility: [facility] Address: [address] [place] [address] Performed By: #### 2 4356-8 ####LYN LABORATORYCLIA [id number] [address] STATES [facility] Protein (U) [Mass/Vol] Trace Abnormal Negative Cl [facility] Comment on above: Order Comment: Speci men Type: URINE SPECIMENOrdering Facility: [facility] Address: [address] [place] [address] Performed By: #### 2 4356-8 ####LYN LABORATORYCLIA [id number] [place] [address] [place] RBC LM.HPF (Urine sed) [#/Area] 0-3 /HPF Normal 0-3 /HPF [facility] Comment on above: Order Comment: Speci men Type: URINE SPECIMENOrdering Facility: [facility] Address: [address] [place] [address] Performed By: #### 2 4356-8 ####LYN LABORATORYCLIA [id number] [address] Specific gravity (U) [Rel density] 1.020 Normal 1.005-1.030 [facility] Comment on above: Order Comment: Speci men Type: URINE SPECIMENOrdering Facility: [facility] Address: [address] [place] [address] Performed By: #### 2 4356-8 ####LYN LABORATORYCLIA [id number] [address] Urobilinogen Ql (U) 0.2 EU/dL Normal 0.2-1.0 EU/dL [facility] Comment on above: Order Comment: Speci men Type: URINE SPECIMENOrdering Facility: [facility] Address: [address] [place] [address] Performed By: #### 2 4356-8 ####LYN LABORATORYCLIA [id number] [address] WBC LM.HPF (Urine sed) [#/Area] 0-5 /HPF Normal 0-5 /HPF [facility] Comment on above: Order Comment: Speci men Type: URINE SPECIMENOrdering Facility: [facility] Address: [address] [place] [address] Performed By: #### 2 4356-8 ####LYN LABORATORYCLIA [id number] [address] OF [facility] CNOVon 11-14-2023 CNOV Office Visit (NRMDN) KATHARINE LARSEN ([id number]) 1950 M Date Time Provider Department 11/14/23 10:00 AM CAROLINA DAMON During your visit today, we recorded the following information about you: Pulse Blood pressure 65/minute 158/93 Carolina Damon MD 11/14/2023 10:56 AM Signed [facility] NEUROLOGICAL TENRIISM NEUROTOXIN VISIT Date: November 14, 2023 Name: Katharine Larsen SUBJECTIVE: Subjective history Injections worked well. Reporting drooling when eating chocolate. More often dry mouth than too wet. Jaw clenching at times, mouth open. Doesn't like how he looks. Doesn't cause pain. Doesn't disrupt eating, talking. 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) Date of diagnosis: 11/12/2018 Other treatments that have been tried and failed: Medications for Parkinson's Date of first neurotoxin treatment: 03/08/2019 Type of neurotoxin given: OnabotulinumtoxinA (Botox) Frequency of current neurotoxin treatment: 90 days Estimated frequency and duration of treatment: continue with current injection interval; will reassess after 1 year Last Injection Notes Date of last Injection: 07/18/2023 Type of neurotoxin: OnabotulinumtoxinA (Botox) Total amount injected: 190 units Degree of effectiveness of last injection:60% Duration of effect: 12 week(s) Side effects related to last injection: None Current pain symptoms: No Current functional limitations: moderate Last neurotoxin regimen: Med right left midline Quadratus plantae 45 50 Flexor digitorum brevis 45 50 Total: 190 Questionnaires: Allergies: ALLERGIES Allergen Reactions Abilify [Aripiprazo* Contraindication-[facility] People with Parkinson's disease should not take this or other antipsychotics except Nuplazid, Seroquel, and Clozaril can be prescribed. Ciprofloxacin Other: See Comments Tendon rupture (see black box warning)-this occurred in him when Cipro was used for cellulitis/sepsis Compazine [Prochlor* Contraindication-[facility] This should not be given to people with Parkinson's disease. If not otherwise contraindicated, Zofran should be given instead. Haldol [Haloperidol] Contraindication-[facility] People with Parkinson's disease should not take this or other antipsychotics except Nuplazid, Seroquel, and Clozaril can be prescribed. Penicillins Unknown Phenergan [Prometha* Contraindication-[facility] This should not be given to people with Parkinson's disease. If not otherwise contraindicated, Zofran should be given instead. Reglan [Metoclopram* Contraindication-[facility] This should not be given to people with Parkinson's disease. If not otherwise contraindicated, Zofran should be given instead. Current Medications: Current Outpatient Medications Medication Sig clonazePAM (KLONOPIN) 0.5 mg tablet Take 1/2 tablet at bedtime for one week and then take 1 tablet at bedtime carbidopa-levodopa (SINEMET) 25-100 mg per tablet 1 tab at 230AM, 2 tabs at 8AM, 11AM, 2PM, 5PM and 1.5 tabs at 8PM baclofen 10 mg tablet Take 1 tablet in the morning and afternoon and 1/2 tablet in the evening for one week and then take 1 tablet three times daily amantadine HCl (SYMMETREL) 100 mg capsule Take 1 capsule by mouth once daily. acetaminophen (TYLENOL) 325 mg tablet Take 2 tablets by mouth every 4 hours as needed for pain or fever (specify temp.). solifenacin succinate (SOLIFENACIN ORAL) Take by mouth daily at bedtime. Pt and unsure of dosage rasagiline (AZILECT) 1 mg tab Take 1 tablet by mouth once daily. No current facility-administered medications for this visit. OBJECTIVE: BP 158/93 (BP Site: Left Arm, BP Position: Sitting, BP Cuff Size: Regular Adult) Pulse 65 SpO2 99% Other notable exam findings: moderate curling of toes both feet. ASSESSMENT AND PLAN: Mr. 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 Injections are working well. Repeated same injection pattern. Drooling only triggered by eating chocolate and otherwise dry mouth so injections for sialorrhea would not be appropriate. Also asking about injections for mouth opening which is more likely part of bradykinesia rather than dystonia and also unfortunately not amenable to Botox treatment. After obtaining informed consent, neurotoxin injections were carried out as outlined below. Current Injection Note Type of neurotoxin: OnabotulinumtoxinA (Botox) Total amount drawn: 200 units Total amount injected: 190 units Total amount wasted: 10 units Dilution: 1 cc NSS/100 U Administered with EMG guidance: No Administered with Ultrasound guidance: No Lot#: [id number] Exp Date: 12/2025 Today's neurotoxin regimen: Med right left midline Quadratus plantae 45 50 Flexor digitorum brevis 45 50 Total: 190 Future plan of care: Follow up: 3 months (more content not included)... Normal [facility] CNOVon 11-07-2023 CNOV Office Visit (NRMDN) KATHARINE LARSEN ([id number]) 1950 M Date Time Provider Department 11/07/23 8:00 AM TAISHA JOHN [facility] During your visit today, we recorded the following information about you: Pulse Blood pressure 80/minute 160/101 Taisha John APRN.DOUGH MIXING MACHINE OPERATOR 11/09/2023 12:53 PM Signed [facility] - FOLLOW UP EVALUATION Nico Schmidt MD [address] [facility] [address] [facility] [address] Dear Nico Schmidt MD: I had the pleasure of seeing Mr. Larsen for follow-up today. As you know he is a 72 year old left-handed male with a history of Parkinson's disease complicated by motor fluctuations and dyskinesia since 2012. He is seen with his . Subjective Previous Plan-07/17/2023 Visit: Parkinson's disease with off period dystonia in left > right leg - Try adding a dose of Sinemet, 2 tablets at 230AM and move the daytime doses closer together as below. Patient's perception of importance for healthcare provider to let them know of research trials for which they may be eligible? Very Important Interval History: His main concern is rigidity. If he is in bed and gets rigid his can turn him and do some things. The Sinemet does resolves this temporarily and the new schedule does made at his last visit does seem to help. It is most bothersome at night and other type of symptoms stressful to him such as being too warm or too cold, can also make it come out. With taking the 2:30am Sinemet, the rigidity is less. They think that 30-45 minutes after he takes the baclofen, rigidity often comes out. Movement Disorders Medications Schedule - as of the start of the visit: Medications 230am 8am 11am 2pm 5pm 8pm 11pm Sinemet 25/100 1 2 2 2 2 1.5 Baclofen 10 mg 1 1 1 Rasagiline 1 mg 1 Amantadine 100 mg 1 Parkinson's Motor Complications Medication benefit onset: 30 minutes Medication duration: 4 hours Wearing off: yes Painful off-state dystonia: yes Dyskinesia: yes Prior Anti-Parkinson Therapies Amantadine IR Carbidopa/Levodopa ER (Rytary) Rasagiline Questionnaires: In addition, the following areas that may be affected by abnormal involuntary movements were evaluated: Daily activities Difficulties with eating: Yes (moderate) Difficulties in dressing: Yes (moderate) Difficulties with hygiene activities: Yes (mild) Difficulties with handwriting: Yes (severe) Difficulties with doing hobbies and other activities: Yes (slight) Difficulties turning in bed: Yes (mild) Difficulties getting out of bed, car or chair: Yes (severe) Tremors/Gait/Balance Shaking or tremors: Yes (slight) Walking and balance problems: Yes (severe) He is in a wheelchair most of the time, but will walk with the physical therapist. Number of falls in the Last Month: Zero Gait freezing: Yes (severe) Autonomic/Pain Lightheadeness on standin (none) Urinary problems: Yes (severe) He is on Solifenacin. Constipation problems: 0 (none) Pain and other sensations: Yes (moderate) This is from the rigidity. Speech/Swallowing Speech problems: Yes (moderate) Drooling: Yes (moderate) He may get injections for this. Chewing and swallowing problems: 0 (none) Sleep/Fatigue Sleep problems: Yes (slight) Daytime sleepiness: Yes (slight) Fatigue: 0 (none) Mood/Behavior Depression: PHQ-9 Score: 3 usually representing no significant (0-4) depression. Anxiety: KAVIN-7 Total Score: 0 usually representing no significant (0-4) anxiety. Finally, the following table shows the patient's overall global physical and mental health using the PROMIS scale: PROMIS-10 Flowsheet Row Office Visit from 11/07/2023 in Neurology Office Visit from 07/18/2023 in Neurology Global Physical Health T Score 34.9 37.4 Global Mental Health T Score 50.8 48.3 0-10 Standard Pain Scale 3 4 *PROMIS-10 scoring scale: mean = 50, over 50 is above average, under 50 is below average In addition, the following non-motor symptoms and palliative concerns were evaluated: Sleep/Fatigue: REM sleep behavior disorder: No Restless Legs Syndrome: No Leg swelling: No Impaired sense of smell: Yes Cognition: Cognitive impairment: no MoCA Cognitive assessment: Hallucinations and delusions: no Apathy: no Impulse control disorder: No Palliative Concerns: Caregiver burden: Not at all Spiritual concerns: No Advanced directives on file: Palliative services: Yes He is getting currently. Therapy and Exercise: Last PT Date: October 2023 Last OT Date: March [address] Date: March 2023 Exercises Regularly: Yes Chair exercises and works with a hop strainer ALLERGIES Allergen Reactions Abilify [Aripiprazo* Contraindication-[facility] People with Parkinson's disease should not take this or other antipsychotics except Nuplazid, Seroquel, and Clozaril can be prescribed. Ciprofloxacin Other: See Comments Te (more content not included)... Normal [facility] Urine Cultureon 08-16-2023 URC Pseudomonas aeruginosa Gentry Count 50,000-80,000 Pseudomonas aeruginosa: REACTION Cefepime Islt MAT 2 S Ciprofloxacin Islt MAT <=0.25 S Imipenem Islt MAT >=16 R levoFLOXacin Islt MAT 0.5 S Pip+Tazo Islt MAT 8 S Tobramycin Islt MAT <=1 S Normal [facility] Comment on above: Performed By: #### L 501.080 #### [facility] [address] [facility]. [place], [place], [id number] Urinalysis, Routine (Dipstic k)on 08-13-2023 BILIRUBIN URINE Negative Normal Negative [facility] Comment on above: Order Comment: CLEAN CATCH Performed By: #### L 501.080 #### [facility] [address] [place], [place], [address] Clarity (U) Clear Normal Clear [facility] Comment on above: Order Comment: CLEAN CATCH Performed By: #### L 501.080 #### [facility] [address] [facility] [place], [address] Color (U) Yellow Normal Yellow [facility] Comment on above: Order Comment: CLEAN CATCH Performed By: #### L 501.080 #### [facility] [address] [place], [address] GLUCOSE, UR Normal Normal Normal [facility] Comment on above: Order Comment: CLEAN CATCH Performed By: #### L 501.080 #### [facility] [address] [place], [address] KETONE UR Negative Normal Negative [facility] Comment on above: Order Comment: CLEAN CATCH Performed By: #### L 501.080 #### [facility] [address] [place], [address] LEUK ESTERASE Negative Normal Negative [facility] Comment on above: Order Comment: CLEAN CATCH Performed By: #### L 501.080 #### [facility] [address] [place], [address] Nitrite Ql (U) Negative Normal Negative [facility] Comment on above: Order Comment: CLEAN CATCH Performed By: #### L 501.080 #### [facility] [address] [place], [address] OCCULT BLOOD-UR Negative Normal Negative [facility] Comment on above: Order Comment: CLEAN CATCH Performed By: #### L 501.080 #### [facility] [address] [place], [address] pH UR 8.0 Normal 5.0 - 8.0 [facility] Comment on above: Order Comment: CLEAN CATCH Performed By: #### L 501.080 #### [facility] [address] [place], [address] PROT DIPSTX Negative Normal Negative [facility] Comment on above: Order Comment: CLEAN CATCH Performed By: #### L 501.080 #### [facility] [address] [place], [place], [address] SP.GR. DIPSTX 1.010 Normal 1.002-1.030 [facility] Comment on above: Order Comment: CLEAN CATCH Performed By: #### L 501.080 #### [facility] [address] [place], [place], [address] UROBILI Normal Normal Normal [facility] Comment on above: Order Comment: CLEAN CATCH Performed By: #### L 501.080 #### [facility] [address] [place], [address] [facility] [facility] [facility] KATHARINE LARSEN ([id number]) 1950 M Date Time Provider Department 08/11/23 MICHAELA MANCINI [facility] During your visit today, we recorded the following information about you: Emily Merritt 08/11/2023 8:56 AM Signed Called and left a voicemail on bother number to reschedule a missed virtual visit. Rico Patient Wellness Program CoordinatorKya 08/13/2023 10:50 AM Signed Duplicate encounter, closing. Multiple attempts made to reach patient / letter pended in previous encounter Allergies As of Date: 08/11/2023 Noted Allergy Reaction PENICILLINS 01/20/2013 16 - Unknown Date Reviewed: 07/18/2023 Reviewed by: Carolina Damon MD - Fully Assessed Reason for Visit: Appointment [186] Prescriptions as of 08/13/2023 - carbidopa-levodopa (SINEMET) 25-100 mg per tablet 1 tab at 230AM, 2 tabs at 8AM, 11AM, 2PM, 5PM and 1.5 tabs at 8PM - baclofen 10 mg tablet Take 1 tablet in the morning and afternoon and 1/2 tablet in the evening for one week and then take 1 tablet three times daily - amantadine HCl (SYMMETREL) 100 mg capsule Take 1 capsule by mouth once daily. - acetaminophen (TYLENOL) 325 mg tablet Take 2 tablets by mouth every 4 hours as needed for pain or fever (specify temp.). - senna-docusate (SENNA-S) 8.6-50 mg per tablet Take 1 tablet by mouth two times a day. - solifenacin succinate (SOLIFENACIN ORAL) Take by mouth daily at bedtime. Pt and unsure of dosage - rasagiline (AZILECT) 1 mg tab Take 1 tablet by mouth once daily. - levodopa (INBRIJA) 42 mg (Discontinued) Inhale 2 capsules as instructed as needed. Take as needed up to 5 times daily Problem List As Of Date 08/11/2023 Noted Resolved Parkinson's disease with dyskinesia and fluctua*11/12/2018 Severe protein-calorie malnutrition (HCC) [E43] 04/25/2022 Parkinsonism [G20.C] 12/25/2022 Physical debility [R53.81] 12/25/2022 Oropharyngeal dysphagia [R13.12] 12/25/2022 Type 2 diabetes mellitus without complication, * Essential hypertension [I10] 12/29/2022 Night muscle spasms [M62.838] 01/06/2023 ACP (advance care planning) [Z71.89] 01/06/2023 Contact dermatitis due to adhesives [L23.1] 01/11/2023 Constipation [K59.00] 01/11/2023 Hyponatremia [E87.1] 01/12/2023 Stafford grade D esophagitis [K20.80] 01/13/2023 BPH (benign prostatic hyperplasia) [N40.0] OAB (overactive bladder) [N32.81] Leukocytosis [D72.829] 01/13/2023 Cachexia (HCC) [R64] 01/21/2023 Encounter Status:Closed by EMILY MERRITT on 08/11/23 Normal [facility] Urine Cultureon 07-23-[address] SALCEDO @ [phone] AND TO [phone] Mixed Gram Pos Gram Neg Org Gentry Count 50,000-80,000 MIXC Mixed contaminants. Submit a new specimen if indicated. Normal [facility] Comment on above: Performed By: #### L 400.2010, M100.0 ####[facility] [address] [place], [address] Urinalysis, Routine (Dipstic k)on 07-21-2023 BILIRUBIN URINE Negative Normal Negative [facility] Comment on above: Order Comment: CLEAN CATCH Performed By: #### L 501.080 #### [facility] [address] [place], [address] Clarity (U) Clear Normal Clear [facility] Comment on above: Order Comment: CLEAN CATCH Performed By: #### L 501.080 #### [facility] [address] [place], [address] Color (U) Yellow Normal Yellow [facility] Comment on above: Order Comment: CLEAN CATCH Performed By: #### L 501.080 #### [facility] [address] [place], [address] GLUCOSE, UR Normal Normal Normal [facility] Comment on above: Order Comment: CLEAN CATCH Performed By: #### L 501.080 #### [facility] [address] [place], [address] KETONE UR Negative Normal Negative [facility] Comment on above: Order Comment: CLEAN CATCH Performed By: #### L 501.080 #### [facility] [address] [place], [address] LEUK ESTERASE Negative Normal Negative [facility] Comment on above: Order Comment: CLEAN CATCH Performed By: #### L 501.080 #### [facility] [address] [place], [address] Nitrite Ql (U) Negative Normal Negative [facility] Comment on above: Order Comment: CLEAN CATCH Performed By: #### L 501.080 #### [facility] [address] [place], [address] OCCULT BLOOD-UR Negative Normal Negative [facility] Comment on above: Order Comment: CLEAN CATCH Performed By: #### L 501.080 #### [facility] [address] [place], [address] pH UR 7.0 Normal 5.0 - 8.0 [facility] Comment on above: Order Comment: CLEAN CATCH Performed By: #### L 501.080 #### [facility] [address] [place], [address] PROT DIPSTX Negative Normal Negative [facility] Comment on above: Order Comment: CLEAN CATCH Performed By: #### L 501.080 #### [facility] [address] [place], [address] SP.GR. DIPSTX 1.010 Normal 1.002-1.030 [facility] Comment on above: Order Comment: CLEAN CATCH Performed By: #### L 501.080 #### [facility] [address] [place], [address] UROBILI Normal Normal Normal [facility] Comment on above: Order Comment: CLEAN CATCH Performed By: #### L 501.080 #### [facility] [address] [place], [address] Urine Cultureon 06-21-2023 [facility] Order Date: 06/18/23 Order Info: 630-4 - CUUR 06/18/23 630-4 - CUUR #2 Below infection level. 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 [place], [id number] Basophil percentageOrdered B y: Nico Schmidt on 06-19-2023 Basophil percentage 0-5 SEEN /hpf 0-5 [facility] Bilirubin Test strip Ql (U)O rdered By: Nico Schmidt on 06-19-2023 Bilirubin Ql (U) Negative Negative [facility] Culture, urineOrdered By: Mina Schmidt on 06-19-2023 Bacteria identified Cx Nom (U) Pseudomonas aeruginosa [facility] Bacteria identified Cx Nom (U) GNR lactose wagon washer [facility] Ketones Test strip Ql (U)Ord ered By: Nico Schmidt on 06-19-2023 Ketones Ql (U) Negative Negative [facility] Mucus LM Ql (Urine sed)Order ed By: Nico Schmidt on 06-19-2023 Mucus Ql (Urine sed) 0 SEEN /hpf [facility] Nitrite Test strip Ql (U)Ord ered By: Nico Schmidt on 06-19-2023 Nitrite Ql (U) Positive Negative [facility] No Panel InformationOrdered By: Nico Schmidt on 06-19-2023 Urine RBC 0 SEEN /hpf 0-5 [facility] Protein Test strip Ql (U)Ord ered By: Nico Schmidt on 06-19-2023 Protein Ql (U) Negative Negative [facility] Squamous epithelial cells de tection in urine sediment by light microscopyOrdered By: Nico Schmidt on 06-19-2023 Epithelial cells.squamous LM Ql (Urine sed) 0 SEEN /hpf 0-5 [facility] Urinalysis, Completeon 06-18 BACTERIA 1+ /hpf Normal None Seen [facility] Comment on above: Order Comment: Order Date: 06/18/23Order Info: [id number] - UACCOLLECTOR TO SPECIFY Performed By: #### L 501.080 #### [facility] [address] [place], [address] WBC 0-5 SEEN Normal 0-5 [facility] Comment on above: Order Comment: Order Date: 06/18/23Order Info: [id number] - UACCOLLECTOR TO SPECIFY Performed By: #### L 501.080 #### [facility] [address] [place], [address] EPI,SQUAMOUS 0 SEEN Normal 0-5 [facility] Comment on above: Order Comment: Order Date: 06/18/23Order Info: [id number] - UACCOLLECTOR TO SPECIFY Performed By: #### L 501.080 #### [facility] [address] [place], [address] Mucus Ql (Urine sed) 0 SEEN Normal [facility] Comment on above: Order Comment: Order Date: 06/18/23Order Info: [id number] - UACCOLLECTOR TO SPECIFY Performed By: #### L 501.080 #### [facility] [address] [place], [address] RBC 0 SEEN Normal 0-5 [facility] Comment on above: Order Comment: Order Date: 06/18/23Order Info: [id number] - UACCOLLECTOR TO SPECIFY Performed By: #### L 501.080 #### [facility] [address] [place], [address] Urine blood detectionOrdered By: Nico Schmidt on 06-19-2023 RBC Ql (U) 10 /ul Negative [facility] Urine clarityOrdered By: Marla Schmidt on 06-19-2023 Clarity (U) Clear Clear [facility] Urine color determinationOrd ered By: Nico Schmidt on 06-19-2023 Color (U) Yellow Yellow [facility] Urine glucose detectionOrder ed By: Nico Schmidt on 06-19-2023 Glucose Ql (U) Normal mg/dl Normal [facility] Urine leukocyte esterase det ection by dipstickOrdered By: Nico Schmidt on 06-19-2023 Leukocyte esterase Test strip Ql (U) 500 /ul Negative [facility] Urine pHOrdered By: Nico burns on 06-19-2023 pH (U) 8.0 [pH] 5.0 - 8.0 [facility] Urine sediment bacteria coun t by microscopy (number/high power field)Ordered By: Nico Schmidt on 06-19-2023 Bacteria LM.HPF (Urine sed) [#/Area] 1 /[HPF] None Seen [facility] Urine specific gravity measu rementOrdered By: Nico Schmidt on 06-19-2023 Specific gravity (U) [Rel density] 1.010 1.002-1.030 [facility] Urine urobilinogen measureme ntOrdered By: Nico Schmidt on 06-19-2023 Urobilinogen Ql (U) Normal mg/dl Normal [facility] Urine Cultureon 05-23-2023 URC Pseudomonas aeruginosa Gentry Count 50,000-80,000 Pseudomonas aeruginosa: REACTION Cefepime Islt MAT 2 S Ciprofloxacin Islt MAT <=0.25 S Gentamicin Islt MAT <=1 S Imipenem Islt MAT >=16 R levoFLOXacin Islt MAT 0.5 S Pip+Tazo Islt MAT 16 S Tobramycin Islt MAT <=1 S Normal [facility] Comment on above: Performed By: #### M 100.2200, L400.2010 ####[facility] [address] [place], [address] Bilirubin Test strip Ql (U)O rdered By: Nico Schmidt on 05-21-2023 Bilirubin Ql (U) Negative Negative [facility] Culture, urineOrdered By: Mina Schmidt on 05-21-2023 Bacteria identified Cx Nom (U) Pseudomonas aeruginosa [facility] Ketones Test strip Ql (U)Ord ered By: Nico Schmidt on 05-21-2023 Ketones Ql (U) Negative Negative [facility] Nitrite Test strip Ql (U)Ord ered By: Nico Schmidt on 05-21-2023 Nitrite Ql (U) Positive Negative [facility] Protein Test strip Ql (U)Ord ered By: Nico Schmidt on 05-21-2023 Protein Ql (U) Negative Negative [facility] Urinalysis, Routine (Dipstic k)on 05-21-2023 BILIRUBIN URINE Negative Normal Negative [facility] Comment on above: Order Comment: CLEAN CATCH Performed By: #### M 100.2200, L400.2010 ####[facility] [address] [place], [address] Clarity (U) Clear Normal Clear [facility] Comment on above: Order Comment: CLEAN CATCH Performed By: #### M , ####[facility] [address] [place], [address] Color (U) Yellow Normal Yellow [facility] Comment on above: Order Comment: CLEAN CATCH Performed By: #### M ####[facility] [address] [place], [address] GLUCOSE, UR Normal Normal Normal [facility] Comment on above: Order Comment: CLEAN CATCH Performed By: #### M ####[facility] [address] [place], [address] KETONE UR Negative Normal Negative [facility] Comment on above: Order Comment: CLEAN CATCH Performed By: #### M ####[facility] [address] [place], [address] LEUK ESTERASE 500 /ul Abnormal Negative [facility] Comment on above: Order Comment: CLEAN CATCH Performed By: #### M ####[facility] [address] [place], [address] Nitrite Ql (U) Positive Abnormal Negative [facility] Comment on above: Order Comment: CLEAN CATCH Performed By: #### M ####[facility] [address] [place], [address] OCCULT BLOOD-UR 10 /ul Abnormal Negative [facility] Comment on above: Order Comment: CLEAN CATCH Performed By: #### M ####[facility] [address] [place], [address] pH UR 8.0 Normal 5.0 - 8.0 [facility] Comment on above: Order Comment: CLEAN CATCH Performed By: #### M 100.2200, L400.2010 ####[facility] [address] [place], [address] PROT DIPSTX Negative Normal Negative [facility] Comment on above: Order Comment: CLEAN CATCH Performed By: #### M 100.2200, L400.2010 ####[facility] [address] [place], [address] SP.GR. DIPSTX 1.015 Normal 1.002-1.030 [facility] Comment on above: Order Comment: CLEAN CATCH Performed By: #### M 100.2200, L400.2010 ####[facility] [address] [place], [address] UROBILI Normal Normal Normal [facility] Comment on above: Order Comment: CLEAN CATCH Performed By: #### M 100.2200, L400.2010 ####[facility] [address] [place], [address] Urine blood detectionOrdered By: Nico Schmidt on 05-21-2023 RBC Ql (U) 10 /ul Negative [facility] Urine clarityOrdered By: Marla Schmidt on 05-21-2023 Clarity (U) Clear Clear [facility] Urine color determinationOrd ered By: Nico Schmidt on 05-21-2023 Color (U) Yellow Yellow [facility] Urine glucose detectionOrder ed By: Nico Schmidt on 05-21-2023 Glucose Ql (U) Normal mg/dl Normal [facility] Urine leukocyte esterase det ection by dipstickOrdered By: Nico Schmidt on 05-21-2023 Leukocyte esterase Test strip Ql (U) 500 /ul Negative [facility] Urine pHOrdered By: Nico burns on 05-21-2023 pH (U) 8.0 [pH] 5.0 - 8.0 [facility] Urine specific gravity measu rementOrdered By: Nico Schmidt on 05-21-2023 Specific gravity (U) [Rel density] 1.015 1.002-1.030 [facility] Urine urobilinogen measureme ntOrdered By: Nico Schmidt on 05-21-2023 Urobilinogen Ql (U) Normal mg/dl Normal [facility] Basic Metabolic Profile (BMP )on 04-04-2023 BUN Normal 7-18 [facility] Comment on above: Result Comment: Canc elled via OM: Order cancelled - Patient discharged Performed By: #### L 501.080 #### [facility] [address] [facility] [address] BUN/CRE Normal 10-20 [facility] Comment on above: Result Comment: Canc elled via OM: Order cancelled - Patient discharged Performed By: #### L 501.080 #### [facility] [address] [place], [address] CA,Total Normal 8.5-10.1 [facility] Comment on above: Result Comment: Canc elled via OM: Order cancelled - Patient discharged Performed By: #### L 501.080 #### [facility] [address] [place], [address] CL Normal 98-107 [facility] Comment on above: Result Comment: Canc elled via OM: Order cancelled - Patient discharged Performed By: #### L 501.080 #### [facility] [address] [place], [address] CO2 Normal 21.0-32.0 [facility] Comment on above: Result Comment: Canc elled via OM: Order cancelled - Patient discharged Performed By: #### L 501.080 #### [facility] [address] [place], [address] CREAT,SERUM Normal 0.70-1.30 [facility] Comment on above: Result Comment: Canc elled via OM: Order cancelled - Patient discharged Performed By: #### L 501.080 #### [facility] [address] [place], [address] EST GFR Normal >60 [facility] Comment on above: Result Comment: Canc elled via OM: Order cancelled - Patient discharged Performed By: #### L 501.080 #### [facility] [address] [place], [address] EST GFR - AA Normal >60 [facility] Comment on above: Result Comment: Canc elled via OM: Order cancelled - Patient discharged Performed By: #### L 501.080 #### [facility] [address] [place], [address] GAP Normal 5-15 [facility] Comment on above: Result Comment: Canc elled via OM: Order cancelled - Patient discharged Performed By: #### L 501.080 #### [facility] [address] [place], [address] GLU Normal 74-106 [facility] Comment on above: Result Comment: Canc elled via OM: Order cancelled - Patient discharged Performed By: #### L 501.080 #### [facility] [address] [place], [address] Potassium Normal 3.5-5.1 [facility] Comment on above: Result Comment: Canc elled via OM: Order cancelled - Patient discharged Performed By: #### L 501.080 #### [facility] [address] [place], [address] Basic Metabolic Profile (BMP) Normal 136-145 [facility] Comment on above: Result Comment: Canc elled via OM: Order cancelled - Patient discharged Performed By: #### L 501.080 #### [facility] [address] [place], [address] CBC W/Diff, Automatedon 03-20 Absolute Neut Normal 2.0-7.7 [facility] Comment on above: Result Comment: Canc elled via OM: Order cancelled - Patient discharged Performed By: #### L 501.080 #### [facility] [address] [place], [address] HCT Normal 40-54 [facility] Comment on above: Result Comment: Canc elled via OM: Order cancelled - Patient discharged Performed By: #### L 501.080 #### [facility] [address] [place], [address] HGB Normal 13.0-16.5 [facility] Comment on above: Result Comment: Canc elled via OM: Order cancelled - Patient discharged Performed By: #### L 501.080 #### [facility] [address] [place], [address] MCH Normal 27.0-32.0 [facility] Comment on above: Result Comment: Canc elled via OM: Order cancelled - Patient discharged Performed By: #### L 501.080 #### [facility] [address] [place], [address] MCHC Normal 32-36 [facility] Comment on above: Result Comment: Canc elled via OM: Order cancelled - Patient discharged Performed By: #### L 501.080 #### [facility] [address] [place], [address] MCV Normal 80-94 [facility] Comment on above: Result Comment: Canc elled via OM: Order cancelled - Patient discharged Performed By: #### L 501.080 #### [facility] [address] [place], [address] NEUT% Normal 47-70 [facility] Comment on above: Result Comment: Canc elled via OM: Order cancelled - Patient discharged Performed By: #### L 501.080 #### [facility] [address] [place], [address] PLT Normal 150-450 [facility] Comment on above: Result Comment: Canc elled via OM: Order cancelled - Patient discharged Performed By: #### L 501.080 #### [facility] [address] [place], [address] RBC Normal 4.6-6.2 [facility] Comment on above: Result Comment: Canc elled via OM: Order cancelled - Patient discharged Performed By: #### L 501.080 #### [facility] [address] [place], [address] RDW CV Normal 11.6-14.6 [facility] Comment on above: Result Comment: Canc elled via OM: Order cancelled - Patient discharged Performed By: #### L 501.080 #### [facility] [address] [place], [address] RDW SD Normal 35.1-43.9 [facility] Comment on above: Result Comment: Canc elled via OM: Order cancelled - Patient discharged Performed By: #### L 501.080 #### [facility] [address] [place], [address] WBC Normal 4.4-11.0 [facility] Comment on above: Result Comment: Canc elled via OM: Order cancelled - Patient discharged Performed By: #### L 501.080 #### [facility] [address] [place], [address] Basic Metabolic Profile (BMP )on 03-28-2023 BUN Normal 7-18 [facility] Comment on above: Result Comment: Canc elled via OM: Order cancelled - Patient discharged Performed By: #### L 501.080 #### [facility] [address] [place], [address] BUN/CRE Normal 10-20 [facility] Comment on above: Result Comment: Canc elled via OM: Order cancelled - Patient discharged Performed By: #### L 501.080 #### [facility] [address] [place], [address] CA,Total Normal 8.5-10.1 [facility] Comment on above: Result Comment: Canc elled via OM: Order cancelled - Patient discharged Performed By: #### L 501.080 #### [facility] [address] [place], [address] CL Normal 98-107 [facility] Comment on above: Result Comment: Canc elled via OM: Order cancelled - Patient discharged Performed By: #### L 501.080 #### [facility] [address] [place], [address] CO2 Normal 21.0-32.0 [facility] Comment on above: Result Comment: Canc elled via OM: Order cancelled - Patient discharged Performed By: #### L 501.080 #### [facility] [address] [place], [address] CREAT,SERUM Normal 0.70-1.30 [facility] Comment on above: Result Comment: Canc elled via OM: Order cancelled - Patient discharged Performed By: #### L 501.080 #### [facility] [address] [place], [address] EST GFR Normal >60 [facility] Comment on above: Result Comment: Canc elled via OM: Order cancelled - Patient discharged Performed By: #### L 501.080 #### [facility] [address] [place], [address] EST GFR - AA Normal >60 [facility] Comment on above: Result Comment: Canc elled via OM: Order cancelled - Patient discharged Performed By: #### L 501.080 #### [facility] [address] [place], [address] GAP Normal 5-15 [facility] Comment on above: Result Comment: Canc elled via OM: Order cancelled - Patient discharged Performed By: #### L 501.080 #### [facility] [address] [place], [address] GLU Normal 74-106 [facility] Comment on above: Result Comment: Canc elled via OM: Order cancelled - Patient discharged Performed By: #### L 501.080 #### [facility] [address] [place], [address] Potassium Normal 3.5-5.1 [facility] Comment on above: Result Comment: Canc elled via OM: Order cancelled - Patient discharged Performed By: #### L 501.080 #### [facility] [address] [place], [address] Basic Metabolic Profile (BMP) Normal 136-145 [facility] Comment on above: Result Comment: Canc elled via OM: Order cancelled - Patient discharged Performed By: #### L 501.080 #### [facility] [address] [place], [address] CBC W/Diff, Automatedon 02-0 -2023 Absolute Neut Normal 2.0-7.7 [facility] Comment on above: Result Comment: Canc elled via OM: Order cancelled - Patient discharged Performed By: #### L 501.080 #### [facility] [address] [place], [address] HCT Normal 40-54 [facility] Comment on above: Result Comment: Canc elled via OM: Order cancelled - Patient discharged Performed By: #### L 501.080 #### [facility] [address] [place], [address] HGB Normal 13.0-16.5 [facility] Comment on above: Result Comment: Canc elled via OM: Order cancelled - Patient discharged Performed By: #### L 501.080 #### [facility] [address] [place], [address] MCH Normal 27.0-32.0 [facility] Comment on above: Result Comment: Canc elled via OM: Order cancelled - Patient discharged Performed By: #### L 501.080 #### [facility] [address] [place], [address] MCHC Normal 32-36 [facility] Comment on above: Result Comment: Canc elled via OM: Order cancelled - Patient discharged Performed By: #### L 501.080 #### [facility] [address] [place], [address] MCV Normal 80-94 [facility] Comment on above: Result Comment: Canc elled via OM: Order cancelled - Patient discharged Performed By: #### L 501.080 #### [facility] [address] [place], [address] NEUT% Normal 47-70 [facility] Comment on above: Result Comment: Canc elled via OM: Order cancelled - Patient discharged Performed By: #### L 501.080 #### [facility] [address] [place], [address] PLT Normal 150-450 [facility] Comment on above: Result Comment: Canc elled via OM: Order cancelled - Patient discharged Performed By: #### L 501.080 #### [facility] [address] [place], [address] RBC Normal 4.6-6.2 [facility] Comment on above: Result Comment: Canc elled via OM: Order cancelled - Patient discharged Performed By: #### L 501.080 #### [facility] [address] [place], [address] RDW CV Normal 11.6-14.6 [facility] Comment on above: Result Comment: Canc elled via OM: Order cancelled - Patient discharged Performed By: #### L 501.080 #### [facility] [address] [place], [address] RDW SD Normal 35.1-43.9 [facility] Comment on above: Result Comment: Canc elled via OM: Order cancelled - Patient discharged Performed By: #### L 501.080 #### [facility] [address] [place], [address] WBC Normal 4.4-11.0 [facility] Comment on above: Result Comment: Canc elled via OM: Order cancelled - Patient discharged Performed By: #### L 501.080 #### [facility] [address] [place], [address] Basic Metabolic Profile (BMP )on 03-21-2023 BUN Normal 7-18 [facility] Comment on above: Result Comment: Canc elled via OM: Order cancelled - Patient discharged Performed By: #### L 501.080 #### [facility] [address] [place], [address] BUN/CRE Normal 10-20 [facility] Comment on above: Result Comment: Canc elled via OM: Order cancelled - Patient discharged Performed By: #### L 501.080 #### [facility] [address] [place], [address] CA,Total Normal 8.5-10.1 [facility] Comment on above: Result Comment: Canc elled via OM: Order cancelled - Patient discharged Performed By: #### L 501.080 #### [facility] [address] [place], [address] CL Normal 98-107 [facility] Comment on above: Result Comment: Canc elled via OM: Order cancelled - Patient discharged Performed By: #### L 501.080 #### [facility] [address] [place], [address] CO2 Normal 21.0-32.0 [facility] Comment on above: Result Comment: Canc elled via OM: Order cancelled - Patient discharged Performed By: #### L 501.080 #### [facility] [address] [place], [address] CREAT,SERUM Normal 0.70-1.30 [facility] Comment on above: Result Comment: Canc elled via OM: Order cancelled - Patient discharged Performed By: #### L 501.080 #### [facility] [address] [place], [address] EST GFR Normal >60 [facility] Comment on above: Result Comment: Canc elled via OM: Order cancelled - Patient discharged Performed By: #### L 501.080 #### [facility] [address] [place], [address] EST GFR - AA Normal >60 [facility] Comment on above: Result Comment: Canc elled via OM: Order cancelled - Patient discharged Performed By: #### L 501.080 #### [facility] [address] [place], [address] GAP Normal 5-15 [facility] Comment on above: Result Comment: Canc elled via OM: Order cancelled - Patient discharged Performed By: #### L 501.080 #### [facility] [address] [place], [address] GLU Normal 74-106 [facility] Comment on above: Result Comment: Canc elled via OM: Order cancelled - Patient discharged Performed By: #### L 501.080 #### [facility] [address] [place], [address] Potassium Normal 3.5-5.1 [facility] Comment on above: Result Comment: Canc elled via OM: Order cancelled - Patient discharged Performed By: #### L 501.080 #### [facility] [address] [place], [address] Basic Metabolic Profile (BMP) Normal 136-145 [facility] Comment on above: Result Comment: Canc elled via OM: Order cancelled - Patient discharged Performed By: #### L 501.080 #### [facility] [address] [place], [address] CBC W/Diff, Automatedon 02-0 -2023 Absolute Neut Normal 2.0-7.7 [facility] Comment on above: Result Comment: Canc elled via OM: Order cancelled - Patient discharged Performed By: #### L 501.080 #### [facility] [address] [place], [address] HCT Normal 40-54 [facility] Comment on above: Result Comment: Canc elled via OM: Order cancelled - Patient discharged Performed By: #### L 501.080 #### [facility] [address] [place], [address] HGB Normal 13.0-16.5 [facility] Comment on above: Result Comment: Canc elled via OM: Order cancelled - Patient discharged Performed By: #### L 501.080 #### [facility] [address] [place], [address] MCH Normal 27.0-32.0 [facility] Comment on above: Result Comment: Canc elled via OM: Order cancelled - Patient discharged Performed By: #### L 501.080 #### [facility] [address] [place], [address] MCHC Normal 32-36 [facility] Comment on above: Result Comment: Canc elled via OM: Order cancelled - Patient discharged Performed By: #### L 501.080 #### [facility] [address] [place], [address] MCV Normal 80-94 [facility] Comment on above: Result Comment: Canc elled via OM: Order cancelled - Patient discharged Performed By: #### L 501.080 #### [facility] [address] [place], [address] NEUT% Normal 47-70 [facility] Comment on above: Result Comment: Canc elled via OM: Order cancelled - Patient discharged Performed By: #### L 501.080 #### [facility] [address] [place], [address] PLT Normal 150-450 [facility] Comment on above: Result Comment: Canc elled via OM: Order cancelled - Patient discharged Performed By: #### L 501.080 #### [facility] [address] [place], [address] RBC Normal 4.6-6.2 [facility] Comment on above: Result Comment: Canc elled via OM: Order cancelled - Patient discharged Performed By: #### L 501.080 #### [facility] [address] [place], [address] RDW CV Normal 11.6-14.6 [facility] Comment on above: Result Comment: Canc elled via OM: Order cancelled - Patient discharged Performed By: #### L 501.080 #### [facility] [address] [place], [address] RDW SD Normal 35.1-43.9 [facility] Comment on above: Result Comment: Canc elled via OM: Order cancelled - Patient discharged Performed By: #### L 501.080 #### [facility] [address] [place], [address] WBC Normal 4.4-11.0 [facility] Comment on above: Result Comment: Canc elled via OM: Order cancelled - Patient discharged Performed By: #### L 501.080 #### [facility] [address] [place], [address] Absolute lymphocyte countOrd ered By: Freddy Swann on 03-14-2023 Lymphocytes Auto (Unsp spec) [#/Vol] 2.12 10*3/uL 0.83-4.51 [facility] Automated lymphocyte count a s percentage of total leukocytesOrdered By: Freddy Swann on 03-14-2023 Lymphocytes/100 WBC Auto (Unsp spec) 32.3 % 19-41 [facility] Basic Metabolic Profile (BMP )on 03-14-2023 BUN/CRE 34.7 RATIO High 10-20 [facility] Comment on above: Performed By: #### L 501.080 #### [facility] [address] [place], [address] CA,Total 9.2 mg/dL Normal 8.5-10.1 [facility] Comment on above: Performed By: #### L 501.080 #### [facility] [address] [place], [address] Chloride [Moles/Vol] 102 mmol/L Normal 98-107 [facility] Comment on above: Performed By: #### L [id number] #### [facility] [address] [place], [address] CO2 [Moles/Vol] 30.0 mmol/L Normal 21.0-32.0 [facility] Comment on above: Performed By: #### L 501.080 #### [facility] [address] [place], [address] Creatinine [Mass/Vol] 0.89 mg/dL Normal 0.70-1.30 [facility] Comment on above: Result Comment: The validity of the calculated GFR GFRAA in patients over 70 years has not been determined. Clinical correlation is essential. Performed By: #### L 501.080 #### [facility] [address] [place], [address] ECRCL 57.28 ml/min Normal [facility] Comment on above: Performed By: #### L 501.080 #### [facility] [address] [place], [address] EST GFR - AA 107 mL/min Normal >60 [facility] Comment on above: Result Comment: Afri can Mosotho GFR Calc Performed By: #### L 501.080 #### [facility] [address] [place], [address] GAP 4 Low 5-15 [facility] Comment on above: Performed By: #### L 501.080 #### [facility] [address] [place], [address] GFR/1.73 sq M.predicted among non-blacks MDRD (S/P/Bld) [Vol rate/Area] 88 mL/min/{1.73_m2} Normal >60 [facility] Comment on above: Result Comment: Non- GFR Calc Performed By: #### L 501.080 #### [facility] [address] [place], [address] Glucose [Mass/Vol] 90 mg/dL Normal 74-106 [facility] Comment on above: Performed By: #### L 501.080 #### [facility] [address] [place], [address] Potassium [Moles/Vol] 4.0 mmol/L Normal 3.5-5.1 [facility] Comment on above: Performed By: #### L [id number] #### [facility] [address] [place], [address] Sodium [Moles/Vol] 136 mmol/L Normal 136-145 [facility] Comment on above: Performed By: #### L [id number] #### [facility] [address] [place], [address] Urea nitrogen [Mass/Vol] 31 mg/dL High 7-18 [facility] Comment on above: Performed By: #### L 501.080 #### [facility] [address] [place], [place], [address] Basophil percentageOrdered B y: Freddy Swann on 03-14-2023 Basophils/100 WBC (Bld) 1.4 % 0-1 [facility] Chloride [Moles/Vol] 102 mmol/L 98-107 [facility] Eosinophils/100 WBC (Bld) 5.2 % 0-5 [facility] Glucose [Mass/Vol] 90 mg/dL 74-106 [facility] Hemoglobin (Bld) [Mass/Vol] 12.2 g/dL 13.0-16.5 [facility] Monocytes/100 WBC (Bld) 13.4 % 0-10 [facility] Neutrophils (Bld) [#/Vol] 3.1 10*3/uL 2.0-7.7 [facility] Neutrophils/100 WBC (Bld) 47.4 % 47-70 [facility] Potassium [Moles/Vol] 4.0 mmol/L 3.5-5.1 [facility] Sodium [Moles/Vol] 136 mmol/L 136-145 [facility] WBC (Bld) [#/Vol] 6.6 10*3/uL 4.4-11.0 [facility] CBC W/Diff, Automatedon 02-18 Absolute Lymph 2.12 X10 3/uL Normal 0.83-4.51 [facility] Comment on above: Performed By: #### L [id number] #### [facility] [address] [place], [address] Absolute Neut 3.1 X10 3/uL Normal 2.0-7.7 [facility] Comment on above: Performed By: #### L 501.080 #### [facility] [address] [place], [address] Basophils/100 WBC (Bld) 1.4 % High 0-1 [facility] Comment on above: Performed By: #### L 501.080 #### [facility] [address] [place], [address] Eosinophils/100 WBC (Bld) 5.2 % High 0-5 [facility] Comment on above: Performed By: #### L 501.080 #### [facility] [address] [place], [address] Erythrocyte distribution width (RBC) [Ratio] 14.6 % Normal 11.6-14.6 [facility] Comment on above: Performed By: #### L 501.080 #### [facility] [address] [place], [address] Hematocrit (Bld) [Volume fraction] 39.6 % Low 40-54 [facility] Comment on above: Performed By: #### L 501.080 #### [facility] [address] [place], [address] Hemoglobin (Bld) [Mass/Vol] 12.2 g/dL Low 13.0-16.5 [facility] Comment on above: Performed By: #### L 501.080 #### [facility] [address] [place], [address] IG% 0.300 Normal 0.0-0.9 [facility] Comment on above: Result Comment: IG% - Immature Granulocytes (promyelocytes, myelocytes and metamyelocytes) > 1% indicates that a LEFT SHIFT is Present. Performed By: #### L 501.080 #### [facility] [address] [place], [address] Lymphocytes/100 WBC (Bld) 32.3 % Normal 19-41 [facility] Comment on above: Performed By: #### L 501.080 #### [facility] [address] [place], [address] MCH (RBC) [Entitic mass] 30.6 pg Normal 27.0-32.0 [facility] Comment on above: Performed By: #### L 501.080 #### [facility] [address] [place], [address] MCHC (RBC) [Mass/Vol] 30.8 g/dL Low 32-36 [facility] Comment on above: Performed By: #### L 501.080 #### [facility] [address] [place], [address] MCV (RBC) [Entitic vol] 99.2 fL High 80-94 [facility] Comment on above: Performed By: #### L 501.080 #### [facility] [address] [place], [address] Monocytes/100 WBC (Bld) 13.4 % High 0-10 [facility] Comment on above: Performed By: #### L 501.080 #### [facility] [address] [place], [address] Neutrophils/100 WBC (Bld) 47.4 % Normal 47-70 [facility] Comment on above: Performed By: #### L 501.080 #### [facility] [address] [place], [address] Nucleated RBC (Bld) [#/Vol] 0 10*3/uL Normal 0-5 [facility] Comment on above: Performed By: #### L 501.080 #### [facility] [address] [place], [address] Platelet mean volume (Bld) [Entitic vol] 11.9 fL Normal 6.2-12.0 [facility] Comment on above: Performed By: #### L 501.080 #### [facility] [address] [place], [address] Platelets (Bld) [#/Vol] 312 10*3/uL Normal 150-450 [facility] Comment on above: Performed By: #### L 501.080 #### [facility] [address] [place], [address] RBC (Bld) [#/Vol] 3.99 10*6/uL Low 4.6-6.2 [facility] Comment on above: Performed By: #### L 501.080 #### [facility] [address] [place], [address] RDW SD 53.2 fl High 35.1-43.9 [facility] Comment on above: Performed By: #### L 501.080 #### [facility] [address] [place], [address] WBC (Bld) [#/Vol] 6.6 10*3/uL Normal 4.4-11.0 [facility] Comment on above: Performed By: #### L 501.080 #### [facility] [address] [place], [address] Determination of erythrocyte mean corpuscular volume (MCV)Ordered By: Freddy Swann 03-14-2023 MCV (RBC) [Entitic vol] 99.2 fL 80-94 [facility] Erythrocyte distribution wid th ratioOrdered By: Freddy Swann 03-14-2023 Erythrocyte distribution width (RBC) [Ratio] 14.6 % 11.6-14.6 [facility] Erythrocyte distribution wid th standard deviationOrdered By: Freddy Swann 03-14-2023 Erythrocyte distribution width (RBC) [Entitic vol] 53.2 fL 35.1-43.9 [facility] Hematocrit Auto (Bld) [Volum e fraction]Ordered By: Freddy Swann 03-14-2023 Hematocrit (Bld) [Volume fraction] 39.6 % 40-54 [facility] Immature granulocytes/100 WB C Auto (Bld)Ordered By: Freddy Swann on 01-26-2024 Immature granulocytes/100 WBC (Bld) 0.300 % 0.0-0.9 [facility] Comment on above: IG% - Immature Granu locytes (promyelocytes, myelocytes and metamyelocytes) > 1% indicates that a LEFT SHIFT is Present. Laboratory - Chemistry and C hemistry - challengeOrdered By: Freddy Swann on 03-14-2023 CO2 [Moles/Vol] 30.0 mmol/L 21.0-32.0 [facility] Urea nitrogen/Creatinine [Mass ratio] 34.7 mg/mg 10-20 [facility] - Hematology and Cell countsOrdered By: Freddy Swann on 03-14-2023 MCH (RBC) [Entitic mass] 30.6 pg 27.0-32.0 [facility] MCHC (RBC) [Mass/Vol] 30.8 g/dL 32-36 [facility] Nucleated RBC/100 WBC (Bld) [Ratio] 0 % 0-5 [facility] Platelets (Bld) [#/Vol] 312 10*3/uL 150-450 [facility] No Panel InformationOrdered By: Freddy Swann on 03-14-2023 Estimated Creatinine Clearance Calc 57.28 ml/min [facility] Estimated GFR (MDRD) Amer 107 mL/min >60 [facility] Comment on above: GFR Calc Estimated GFR (MDRD) Non-Af Amer 88 mL/min >60 [facility] Comment on above: Non- GFR Calc Platelet mean volume Eugene-Ec ker (Bld) [Entitic vol]Ordered By: Freddy Swann on 03-14-2023 Platelet mean volume (Bld) [Entitic vol] 11.9 fL 6.2-12.0 [facility] RBC Auto (Bld) [#/Vol]Ordere d By: Freddy Swann on 03-14-2023 RBC (Bld) [#/Vol] 3.99 10*6/uL 4.6-6.2 [facility] Serum or plasma calcium ahyden urement (mass/volume)Ordered By: Freddy Swann on 03-14-2023 Calcium [Mass/Vol] 9.2 mg/dL 8.5-10.1 [facility] Serum or plasma creatinine m easurement (mass/volume)Ordered By: Freddy Swann on 03-14-2023 Creatinine [Mass/Vol] 0.89 mg/dL 0.70-1.30 [facility] Comment on above: The validity of the calculated GFR & GFRAA in patients over 70 years has not been determined. Clinical correlation is essential. Serum or plasma urea nitroge n measurement (mass/volume)Ordered By: Freddy Swann on 03-14-2023 Urea nitrogen [Mass/Vol] 31 mg/dL 7-18 [facility] Thin prep Papanicolaou smear with manual screeningOrdered By: Freddy Swann on 03-14-2023 Thin prep Papanicolaou smear with manual screening 4 5-15 [facility] Ankle Brachial Indexon 03-11 Ankle Brachial Index [facility] [address] [place] [address] Ankle Brachial Index 03/11/23 1350 MR#: [id number] Acct: [id number] Name: KATHARINE LARSEN Rep #: [id number] : 1950 72 From: Jakob Mohan MD Attending Dr: Dr. Freddy Swann MD Status: REG CLI Ordering Dr: Freddy Swann MD Date: 03/11/23 Location: [facility] Sex: M C Admitted: Reason For Study: Claudication Procedure A bilateral lower extremity continuous wave Doppler with analog waveform analysis and ankle brachial indexes. Left Segmental Pressures Left brachial= 133mmHg. Left posterior tibial artery = 179mmHg. Left dorsalis pedis artery = 149mmHg. The left dorsalis pedis waveforms are triphasic. The left posterior tibial artery waveforms are triphasic. Right Segmental Pressures Right brachial= 127mmHg. Right posterior tibial artery = 156mmHg. Right dorsalis pedis artery = 179mmHg. The right dorsalis pedis waveforms are triphasic. The right posterior tibial artery waveforms are triphasic. Indices The right ankle brachial index by the dorsalis pedis is 1.35. The right ankle brachial index by the posterior tibial artery is 1.17. The left ankle brachial index by the dorsalis pedis is 1.12. The left ankle brachial index by the posterior tibial artery is 1.35. VL/Ankle Brachial Index Interpretation Summary Right FRANK 1.35, normal. Doppler/PVR waveforms of the right ankle normal at rest. Left FRANK 1.35, normal. Doppler/PVR waveforms of the left ankle normal at rest. Ordering Physician: Freddy Swann Chi Referring Physician: Nico Schmidt Performed By: Zayra Bernabe RVT 03/11/23 1647 Date Jakob Mohan MD CC: Dr. Nico Schmidt MD; Dr. Freddy Swann MD Date Dictated: 03/11/23 1350 Date Transcribed: 03/11/231646 Dry Chain Worker: Signed Normal [facility] SP/SP.FEESon 03-11-2023 SP/SP.FEES [facility] Speech Pathology [facility] [facility] [place] [address] Fax REHABILITATION SERVICES PROGRESS NOTE MR#: [id number] Acct: [id number] Name: SUZIEKATHARINE GUILLENN Rep #: [id number] : 1950 72 From: Deloris Grubbs Referring Dr.: Dr. Freddy Swann MD Status:ADM IN Insurance: MEDICARE PART A B [facility] Patient Information Date of Evaluation: 03/10/23 Time of Evaluation: 10:10 DIAGNOSIS:: dysphagia Referring Physician: Freddy Swann Chi Staff Providing this Care/Treatment:: ANSELMO Direct Billable Minutes: 31 Subjective: Subjective:: Pt was seen for a FEES upright in his chair. Pt was agreeable to the procedure. Current Diet: Drinks/Liquids:: Thin Foods:: Soft bite size NPO:: gastrotomy Medication Administration:: orally Comment:: Pt's primary form of nutrition is feedings from a PEG tube with pleasure feedings of soft bite sized. Respiratory Status: Observation:: 98 spO2 Dentation/Oral Hygiene: Observations:: fair Vocal Quality: Observations:: Breathy Cognition: Observations:: WNL Dysphagia: TX/DX History:: Yes and MBSS Fiberoptic Endoscope: Size: 3.4 mm Nare:: Right Comments: The 3.4 mm scope was passed through the right nare after the nose was cleared of dried, hardened nasal mucus Position During FEES: Position During FEES:: Upright Location: In Chair Anatomy: + Velopharyngeal Port Observations Movement: Yes and Symmetrical +Nasopharynx Observations Tissue Description: Talley red and Dry Location: Diffuse +Oropharynx Observations: Tissue Description: Moist and Talley red Location: Diffuse +Hypopharynx Observation: Tissue Description: Moist and Talley red Location: Diffuse Secretions: Description:: Thick, Yellow and White Comment:: dried nasal mucus. Location:: Oropharynx, Hypopharynx and Diffuse Comment:: Provided ice chips and thin ice water to help clear secretions. Secretions diffuse around the pharynx and on the anterior, superior surface of the vocal cords. Concerns of poor management of secretions. Phonation: Arytenoid Adduction Abduction: Arytenoid adduction and abduction was elicited via vocal tasks. Bowing on both vocal cords was observed and pt was unable to elicit complete closure of the vocal cords. The vocal cords and arytenoids were talley red and swollen Vocal Folds:: Bowed Penetration-Aspiratio n Scale Penetration-Aspiratio n Scale Swallowing: :: Poor pharyngeal constriction during swallow with all solid and liquid P.O. trials, observed via pink out and green out during the swallow instead of a complete white out phase. Poor base of tongue retraction with solid P.O. trials noted due to mod to max residue remaining in the vallecula and base of tongue. Initiation:: Base of tongue and Vallecula Swallowing Trials: Swallowing Trials Results Below: Thin Liquid: Trial 1: water Administered:: via a straw Aspiration: No - aspiration Residue: Yes Residue Location: Residue Location Vallecula PAS Score: PAS Score *1 Trial 2: soda Administered:: via a straw Aspiration: No - aspiration Residue: No PAS Score: PAS Score *1 Trial 3: pills with thin liquid Aspiration: No - aspiration Residue: Yes PAS Score: PAS Score *1 Puree Texture: Trial 1: apple sauce Administered:: via a teaspoon Aspiration: No - aspiration Residue: Yes Residue Location: Residue Location Vallecula PAS Score: PAS Score *1 Trial 2: apple sauce Administered:: via a teaspoon Strategy: Double Swallow and Liquid Wash Aspiration: No - aspiration Residue: No PAS Score: PAS Score *1 Minced Moist Texture: Trial 1: cookie in apple sauce Administered:: via a teaspoon Aspiration: No - aspiration Residue: Yes Residue Location: Residue Location Vallecula Trial 2: cookie in apple sauce Administered:: via a teaspoon Strategy: Double Swallow and Liquid Wash Aspiration: No - aspiration Residue: No Regular Texture: Trial 1: cookie Aspiration: Yes - aspiration and Jeffrey - aspiration Residue: Yes Residue Location: Residue Location Laryngeal Vestibule PAS Score: PAS Score *8 Trial 2: cookie Strategy: Double Swallow and Liquid Wash Aspiration: Yes - aspiration and Jeffrey - aspiration Residue: Yes Residue Location: Residue Location Laryngeal Vestibule PAS Score: PAS Score *8 Trial 3: cookie Strategy: Double Swallow, Liquid Wash and Cough After Swallow Residue: No Result: During trials of Neris Doone, a piece of the cookie entered the airway below the vocal cords. When cued to cough by the MACHINE PRINTER HOSE and reswallow, the piece of the cookie was no longer observed in the airway. However, unable to reliably confirm ejection of the P.O. from the airway due to blocked visual field from excess thick mucus secretions on the scope. Strategies Comments:: Pt greatly benefited from using a do (more content not included)... Normal [facility] Basic Metabolic Profile (BMP )on 03-07-2023 BUN/CRE 32.5 RATIO High 10-20 [facility] Comment on above: Performed By: #### L 501.080 #### [facility] [address] [place], [address] CA,Total 9.3 mg/dL Normal 8.5-10.1 [facility] Comment on above: Performed By: #### L 501.080 #### [facility] [address] [place], [address] Chloride [Moles/Vol] 104 mmol/L Normal 98-107 [facility] Comment on above: Performed By: #### L 501.080 #### [facility] [address] [place], [address] CO2 [Moles/Vol] 31.0 mmol/L Normal 21.0-32.0 [facility] Comment on above: Performed By: #### L 501.080 #### [facility] [address] [place], [address] Creatinine [Mass/Vol] 0.89 mg/dL Normal 0.70-1.30 [facility] Comment on above: Result Comment: The validity of the calculated GFR GFRAA in patients over 70 years has not been determined. Clinical correlation is essential. Performed By: #### L 501.080 #### [facility] [address] [place], [address] ECRCL 56.72 ml/min Normal [facility] Comment on above: Performed By: #### L 501.080 #### [facility] [address] [place], [address] EST GFR - AA 107 mL/min Normal >60 [facility] Comment on above: Result Comment: Afri can Mosotho GFR Calc Performed By: #### L 501.080 #### [facility] [address] [place], [address] GAP 3 Low 5-15 [facility] Comment on above: Performed By: #### L 501.080 #### [facility] [address] [place], [address] GFR/1.73 sq M.predicted among non-blacks MDRD (S/P/Bld) [Vol rate/Area] 89 mL/min/{1.73_m2} Normal >60 [facility] Comment on above: Result Comment: Non- GFR Calc Performed By: #### L 501.080 #### [facility] [address] [place], [address] Glucose [Mass/Vol] 94 mg/dL Normal 74-106 [facility] Comment on above: Performed By: #### L 501.080 #### [facility] [address] [place], [address] Potassium [Moles/Vol] 4.1 mmol/L Normal 3.5-5.1 [facility] Comment on above: Performed By: #### L 501.080 #### [facility] [address] [place], [address] Sodium [Moles/Vol] 138 mmol/L Normal 136-145 [facility] Comment on above: Performed By: #### L 501.080 #### [facility] [address] [place], [address] Urea nitrogen [Mass/Vol] 29 mg/dL High 7-18 [facility] Comment on above: Performed By: #### L 501.080 #### [facility] [address] [place], [address] CBC W/Diff, Automatedon 01- Absolute Lymph 2.45 X10 3/uL Normal 0.83-4.51 [facility] Comment on above: Performed By: #### L 501.080 #### [facility] [address] [place], [address] Absolute Neut 9.0 X10 3/uL High 2.0-7.7 [facility] Comment on above: Performed By: #### L 501.080 #### [facility] [address] [place], [address] Basophils/100 WBC (Bld) 0.8 % Normal 0-1 [facility] Comment on above: Performed By: #### L 501.080 #### [facility] [address] [place], [address] Eosinophils/100 WBC (Bld) 2.8 % Normal 0-5 [facility] Comment on above: Performed By: #### L 501.080 #### [facility] [address] [place], [address] Erythrocyte distribution width (RBC) [Ratio] 14.9 % High 11.6-14.6 [facility] Comment on above: Performed By: #### L 501.080 #### [facility] [address] [place], [address] Hematocrit (Bld) [Volume fraction] 40.6 % Normal 40-54 [facility] Comment on above: Performed By: #### L 501.080 #### [facility] [address] [place], [address] Hemoglobin (Bld) [Mass/Vol] 12.8 g/dL Low 13.0-16.5 [facility] Comment on above: Performed By: #### L 501.080 #### [facility] [address] [place], [address] IG% 0.500 Normal 0.0-0.9 [facility] Comment on above: Result Comment: IG% - Immature Granulocytes (promyelocytes, myelocytes and metamyelocytes) > 1% indicates that a LEFT SHIFT is Present. Performed By: #### L 501.080 #### [facility] [address] [place], [address] Lymphocytes/100 WBC (Bld) 18.8 % Low 19-41 [facility] Comment on above: Performed By: #### L 501.080 #### [facility] [address] [place], [address] MCH (RBC) [Entitic mass] 30.8 pg Normal 27.0-32.0 [facility] Comment on above: Performed By: #### L 501.080 #### [facility] [address] [place], [address] MCHC (RBC) [Mass/Vol] 31.5 g/dL Low 32-36 [facility] Comment on above: Performed By: #### L 501.080 #### [facility] [address] [place], [address] MCV (RBC) [Entitic vol] 97.8 fL High 80-94 [facility] Comment on above: Performed By: #### L 501.080 #### [facility] [address] [place], [address] Monocytes/100 WBC (Bld) 8.4 % Normal 0-10 [facility] Comment on above: Performed By: #### L 501.080 #### [facility] [address] [place], [address] Neutrophils/100 WBC (Bld) 68.7 % Normal 47-70 [facility] Comment on above: Performed By: #### L 501.080 #### [facility] [address] [place], [address] Nucleated RBC (Bld) [#/Vol] 0 10*3/uL Normal 0-5 [facility] Comment on above: Performed By: #### L 501.080 #### [facility] [address] [place], [address] Platelet mean volume (Bld) [Entitic vol] 11.2 fL Normal 6.2-12.0 [facility] Comment on above: Performed By: #### L 501.080 #### [facility] [address] [place], [address] Platelets (Bld) [#/Vol] 329 10*3/uL Normal 150-450 [facility] Comment on above: Performed By: #### L 501.080 #### [facility] [address] [place], [address] RBC (Bld) [#/Vol] 4.15 10*6/uL Low 4.6-6.2 [facility] Comment on above: Performed By: #### L 501.080 #### [facility] [address] [place], [address] RDW SD 53.7 fl High 35.1-43.9 [facility] Comment on above: Performed By: #### L 501.080 #### [facility] [address] [facility] [address] [place], [address] WBC (Bld) [#/Vol] 13.1 10*3/uL High 4.4-11.0 [facility] Comment on above: Performed By: #### L 501.080 #### [facility] [address] [facility] [place], [address] COVID 19 AG RAPID (MICHELLE COLLE T)on 03-04-2023 SARS-CoV-2 (COVID-19) RNA CONRAD+probe Ql (Unsp spec) *Negative results from patients with symptom onset beyond five days should be treated as presumptive and confirmed by a molecular assay if clinically necessary. Negative results should not be used as the sole basis for treatment or for patient management. SARS-CoV-2 Ag Resp Ql IA.rapid *Positive results do not differentiate between SARS-CoV and SARS-CoV-2. If differentiation of the specific SARS virus is desired an additional sample and an additional order is required. SARS-CoV-2 Ag Resp Ql IA.rapid * This test has not been FDA cleared or approved; the test has been authorized by FDA under an Emergency Use Authorization (EAU) for use by laboratories certified under CLIA that meet the requirements to perform moderate, high, or waived complexity tests. SARS-CoV-2 Ag Resp Ql IA.rapid Normal Reference Range: Negative SARS-CoV-2 (COVID 19) Negative RAPID METHOD BinaxNow COVID19 Ag Card Normal [facility] Comment on above: Performed By: #### L 501.080 #### [facility] [address] [place], [address] COVID-19 virus antigen assay Ordered By: Freddy Swann on 03-04-2023 SARS-CoV-2 (COVID-19) Ag IA.rapid Ql (Resp) [facility] Basic Metabolic Profile (BMP )on 02-28-2023 BUN/CRE 26.6 RATIO High 10-20 [facility] Comment on above: Performed By: #### L 501.080 #### [facility] [address] [place], [address] CA,Total 9.0 mg/dL Normal 8.5-10.1 [facility] Comment on above: Performed By: #### L 501.080 #### [facility] [address] [place], [address] Chloride [Moles/Vol] 104 mmol/L Normal 98-107 [facility] Comment on above: Performed By: #### L 501.080 #### [facility] [address] [place], [address] CO2 [Moles/Vol] 32.0 mmol/L Normal 21.0-32.0 [facility] Comment on above: Performed By: #### L 501.080 #### [facility] [address] [place], [address] Creatinine [Mass/Vol] 0.94 mg/dL Normal 0.70-1.30 [facility] Comment on above: Result Comment: The validity of the calculated GFR GFRAA in patients over 70 years has not been determined. Clinical correlation is essential. Performed By: #### L 501.080 #### [facility] [address] [place], [address] ECRCL 50.21 ml/min Normal [facility] Comment on above: Performed By: #### L 501.080 #### [facility] [address] [place], [address] EST GFR - AA 101 mL/min Normal >60 [facility] Comment on above: Result Comment: Afri can Mosotho GFR Calc Performed By: #### L 501.080 #### [facility] [address] [place], [address] GAP 3 Low 5-15 [facility] Comment on above: Performed By: #### L 501.080 #### [facility] [address] [place], [address] GFR/1.73 sq M.predicted among non-blacks MDRD (S/P/Bld) [Vol rate/Area] 83 mL/min/{1.73_m2} Normal >60 [facility] Comment on above: Result Comment: Non- GFR Calc Performed By: #### L 501.080 #### [facility] [address] [place], [address] Glucose [Mass/Vol] 75 mg/dL Normal 74-106 [facility] Comment on above: Performed By: #### L 501.080 #### [facility] [address] [place], [address] Potassium [Moles/Vol] 4.0 mmol/L Normal 3.5-5.1 [facility] Comment on above: Performed By: #### L 501.080 #### [facility] [address] [place], [address] Sodium [Moles/Vol] 139 mmol/L Normal 136-145 [facility] Comment on above: Performed By: #### L 501.080 #### [facility] [address] [place], [address] Urea nitrogen [Mass/Vol] 25 mg/dL High 7-18 [facility] Comment on above: Performed By: #### L 501.080 #### [facility] [address] [place], [address] CBC W/Diff, Automatedon -02 18-2023 Absolute Lymph 2.39 X10 3/uL Normal 0.83-4.51 [facility] Comment on above: Performed By: #### L 501.080 #### [facility] [address] [place], [address] Absolute Neut 4.1 X10 3/uL Normal 2.0-7.7 [facility] Comment on above: Performed By: #### L 501.080 #### [facility] [address] [place], [address] Basophils/100 WBC (Bld) 1.5 % High 0-1 [facility] Comment on above: Performed By: #### L 501.080 #### [facility] [address] [place], [address] Eosinophils/100 WBC (Bld) 4.9 % Normal 0-5 [facility] Comment on above: Performed By: #### L 501.080 #### [facility] [address] [place], [address] Erythrocyte distribution width (RBC) [Ratio] 14.6 % Normal 11.6-14.6 [facility] Comment on above: Performed By: #### L 501.080 #### [facility] [address] [place], [address] Hematocrit (Bld) [Volume fraction] 42.3 % Normal 40-54 [facility] Comment on above: Performed By: #### L 501.080 #### [facility] [address] [place], [address] Hemoglobin (Bld) [Mass/Vol] 13.4 g/dL Normal 13.0-16.5 [facility] Comment on above: Performed By: #### L 501.080 #### [facility] [address] [place], [address] IG% 0.600 Normal 0.0-0.9 [facility] Comment on above: Result Comment: IG% - Immature Granulocytes (promyelocytes, myelocytes and metamyelocytes) > 1% indicates that a LEFT SHIFT is Present. Performed By: #### L 501.080 #### [facility] [address] [place], [address] Lymphocytes/100 WBC (Bld) 29.8 % Normal 19-41 [facility] Comment on above: Performed By: #### L 501.080 #### [facility] [address] [place], [address] MCH (RBC) [Entitic mass] 30.7 pg Normal 27.0-32.0 [facility] Comment on above: Performed By: #### L 501.080 #### [facility] [address] [place], [address] MCHC (RBC) [Mass/Vol] 31.7 g/dL Low 32-36 [facility] Comment on above: Performed By: #### L 501.080 #### [facility] [address] [place], [address] MCV (RBC) [Entitic vol] 97.0 fL High 80-94 [facility] Comment on above: Performed By: #### L 501.080 #### [facility] [address] [place], [address] Monocytes/100 WBC (Bld) 12.5 % High 0-10 [facility] Comment on above: Performed By: #### L 501.080 #### [facility] [address] [place], [address] Neutrophils/100 WBC (Bld) 50.7 % Normal 47-70 [facility] Comment on above: Performed By: #### L 501.080 #### [facility] [address] [place], [address] Nucleated RBC (Bld) [#/Vol] 0 10*3/uL Normal 0-5 [facility] Comment on above: Performed By: #### L 501.080 #### [facility] [address] [place], [address] Platelet mean volume (Bld) [Entitic vol] 11.0 fL Normal 6.2-12.0 [facility] Comment on above: Performed By: #### L 501.080 #### [facility] [address] [place], [address] Platelets (Bld) [#/Vol] 337 10*3/uL Normal 150-450 [facility] Comment on above: Performed By: #### L 501.080 #### [facility] [address] [place], [address] RBC (Bld) [#/Vol] 4.36 10*6/uL Low 4.6-6.2 [facility] Comment on above: Performed By: #### L 501.080 #### [facility] [address] [place], [address] RDW SD 52.7 fl High 35.1-43.9 [facility] Comment on above: Performed By: #### L 501.080 #### [facility] [address] [place], [address] WBC (Bld) [#/Vol] 8.0 10*3/uL Normal 4.4-11.0 [facility] Comment on above: Performed By: #### L 501.080 #### [facility] [address] [place], [address] COVID 19 AG RAPID (RN COLLE T)on 02-27-2023 SARS-CoV-2 (COVID-19) RNA CONRAD+probe Ql (Unsp spec) *Negative results from patients with symptom onset beyond five days should be treated as presumptive and confirmed by a molecular assay if clinically necessary. Negative results should not be used as the sole basis for treatment or for patient management. SARS-CoV-2 Ag Resp Ql IA.rapid *Positive results do not differentiate between SARS-CoV and SARS-CoV-2. If differentiation of the specific SARS virus is desired an additional sample and an additional order is required. SARS-CoV-2 Ag Resp Ql IA.rapid * This test has not been FDA cleared or approved; the test has been authorized by FDA under an Emergency Use Authorization (EAU) for use by laboratories certified under CLIA that meet the requirements to perform moderate, high, or waived complexity tests. SARS-CoV-2 Ag Resp Ql IA.rapid Normal Reference Range: Negative SARS-CoV-2 (COVID 19) Negative RAPID METHOD BinaxNow COVID19 Ag Card Normal [facility] Comment on above: Performed By: #### L 501.080 #### [facility] [address] [facility] [address] Bedside Glucoseon 01-31-2023 FINGERSTICK GLU 97 mg/dL Normal 74-106 [facility] Comment on above: Result Comment: JESSY GEMENT OF PATIENT CARE PER NURSING PROTOCOL Performed By: #### L 501.080 #### [facility] [address] [facility] [address] FINGERSTICK GLU 101 mg/dL Normal -[address] [place] [address] Comment on above: Result Comment: JESSY GEMENT OF PATIENT CARE PER NURSING PROTOCOL Performed By: #### L 501.080 #### [facility] [address] [facility] [address] FINGERSTICK GLU 149 mg/dL High 74-106 [facility] Comment on above: Result Comment: JESSY GEMENT OF PATIENT CARE PER NURSING PROTOCOL Performed By: #### L 501.080 ####[facility] [address] [place], [address] FINGERSTICK GLU 116 mg/dL High 74-106 [facility] Comment on above: Result Comment: JESSY GEMENT OF PATIENT CARE PER NURSING PROTOCOL Performed By: #### L 501.080 #### [facility] [address] [place], [address] Glucose Glucometer (BldC) [M ass/Vol]Ordered By: Jakob Villeda on 01-31-2023 Glucose [Mass/Vol] 97 mg/dL 74-106 [facility] Comment on above: MANAGEMENT OF PATIEN T CARE PER NURSING PROTOCOL Bedside Glucoseon 01-30-2023 FINGERSTICK GLU 126 mg/dL High 74-106 [facility] Comment on above: Result Comment: JESSY GEMENT OF PATIENT CARE PER NURSING PROTOCOL Performed By: #### L 501.080 ####[facility] [address] [place], [address] FINGERSTICK GLU 102 mg/dL Normal 74-106 [facility] Comment on above: Result Comment: JESSY GEMENT OF PATIENT CARE PER NURSING PROTOCOL Performed By: #### L 501.080 #### [facility] [address] [place], [address] FINGERSTICK GLU 126 mg/dL High 74-106 [facility] Comment on above: Result Comment: JESSY GEMENT OF PATIENT CARE PER NURSING PROTOCOL Performed By: #### L 501.080 #### [facility] [address] [place], [address] FINGERSTICK GLU 89 mg/dL Normal 74-106 [facility] Comment on above: Result Comment: JESSY GEMENT OF PATIENT CARE PER NURSING PROTOCOL Performed By: #### L 501.080 #### [facility] [address] [place], [address] Bedside Glucoseon 01-29-2023 FINGERSTICK GLU 118 mg/dL High 74-106 [facility] Comment on above: Result Comment: JESSY GEMENT OF PATIENT CARE PER NURSING PROTOCOL Performed By: #### L 501.080 ####[facility] [address] [place], [address] FINGERSTICK GLU 119 mg/dL High 74-106 [facility] Comment on above: Result Comment: JESSY GEMENT OF PATIENT CARE PER NURSING PROTOCOL Performed By: #### L 501.080 #### [facility] [address] [place], [address] FINGERSTICK GLU 160 mg/dL High 74-106 [facility] Comment on above: Result Comment: JESSY GEMENT OF PATIENT CARE PER NURSING PROTOCOL Performed By: #### L 501.080 #### [facility] [address] [place], [address] FINGERSTICK GLU 85 mg/dL Normal 74-106 [facility] Comment on above: Result Comment: JESSY GEMENT OF PATIENT CARE PER NURSING PROTOCOL Performed By: #### L 501.080 #### [facility] [address] [place], [address] Absolute lymphocyte countOrd ered By: Nicolasa Willingham on 01-28-2023 Lymphocytes Auto (Unsp spec) [#/Vol] 1.98 10*3/uL 0.83-4.51 [facility] Basophil percentageOrdered B y: Nicolasa Willingham on 01-28-2023 Basophil percentage 3.7 mg/dL 2.5-4.9 [facility] Basophils/100 WBC (Bld) 1.0 % 0-1 [facility] Bilirubin [Mass/Vol] 0.40 mg/dL 0.20-1.00 [facility] Comment on above: For patients on eltr ombopag therapy, use of Dimension [place] TBIL is not recommended. Chloride [Moles/Vol] 103 mmol/L 98-107 [facility] Eosinophils/100 WBC (Bld) 2.5 % 0-5 [facility] Glucose [Mass/Vol] 74 mg/dL 74-106 [facility] Neutrophils (Bld) [#/Vol] 5.4 10*3/uL 2.0-7.7 [facility] Neutrophils/100 WBC (Bld) 62.3 % 47-70 [facility] Potassium [Moles/Vol] 4.2 mmol/L 3.5-5.1 [facility] Protein [Mass/Vol] 6.3 g/dL 6.4-8.2 [facility] Sodium [Moles/Vol] 138 mmol/L 136-145 [facility] WBC (Bld) [#/Vol] 8.7 10*3/uL 4.4-11.0 [facility] Bedside Glucoseon 01-28-2023 FINGERSTICK GLU 143 mg/dL High 74-106 [facility] Comment on above: Result Comment: JESSY GEMENT OF PATIENT CARE PER NURSING PROTOCOL Performed By: #### L 501.080 #### [facility] [address] [place], [address] FINGERSTICK GLU 128 mg/dL High 74-106 [facility] Comment on above: Result Comment: JESSY GEMENT OF PATIENT CARE PER NURSING PROTOCOL Performed By: #### L 501.080 #### [facility] [address] [place], [address] FINGERSTICK GLU 127 mg/dL High 74-106 [facility] Comment on above: Result Comment: JESSY GEMENT OF PATIENT CARE PER NURSING PROTOCOL Performed By: #### L 501.080 #### [facility] [address] [place], [address] FINGERSTICK GLU 102 mg/dL Normal 74-106 [facility] Comment on above: Result Comment: JESSY GEMENT OF PATIENT CARE PER NURSING PROTOCOL Performed By: #### L 501.080 #### [facility] [address] [place], [address] FINGERSTICK GLU 68 mg/dL Low 74-106 [facility] Comment on above: Result Comment: JESSY GEMENT OF PATIENT CARE PER NURSING PROTOCOL Performed By: #### L 501.080 #### [facility] [address] [place], [address] Blood erythrocytes count (nu mber/volume)Ordered By: Nicolasa Willingham on 01-28-2023 RBC (Bld) [#/Vol] 4.00 10*6/uL 4.6-6.2 [facility] Blood hemoglobin measurement (mass/volume)Ordered By: Nicolasa Willingham on 01-28-2023 Hemoglobin (Bld) [Mass/Vol] 12.0 g/dL 13.0-16.5 [facility] Blood lymphocytes/100 leukoc ytesOrdered By: Nicolasa Willingham on 01-28-2023 Lymphocytes/100 WBC (Bld) 22.7 % 19-41 [facility] Blood monocytes/100 leukocyt esOrdered By: Nicolasa Willingham on 01-28-2023 Monocytes/100 WBC (Bld) 11.0 % 0-10 [facility] Blood platelet mean volumeOr dered By: Nicolasa Willingham on 01-28-2023 Platelet mean volume (Bld) [Entitic vol] 11.4 fL 6.2-12.0 [facility] CBC W/Diff, Automatedon 01-17 Absolute Lymph 1.98 X10 3/uL Normal 0.83-4.51 [facility] Comment on above: Performed By: #### L 501.080 #### [facility] [address] [facility] [place], [address] Absolute Neut 5.4 X10 3/uL Normal 2.0-7.7 [facility] Comment on above: Performed By: #### L 501.080 #### [facility] [address] [facility] [address] [place], [address] Basophils/100 WBC (Bld) 1.0 % Normal 0-1 [facility] Comment on above: Performed By: #### L 501.080 #### [facility] [address] [facility] [place], [address] Eosinophils/100 WBC (Bld) 2.5 % Normal 0-5 [facility] Comment on above: Performed By: #### L 501.080 #### [facility] [address] [place], [address] Erythrocyte distribution width (RBC) [Ratio] 17.3 % High 11.6-14.6 [facility] Comment on above: Performed By: #### L 501.080 #### [facility] [address] [place], [address] Hematocrit (Bld) [Volume fraction] 38.7 % Low 40-54 [facility] Comment on above: Performed By: #### L 501.080 #### [facility] [address] [place], [address] Hemoglobin (Bld) [Mass/Vol] 12.0 g/dL Low 13.0-16.5 [facility] Comment on above: Performed By: #### L 501.080 #### [facility] [address] [place], [address] IG% 0.500 Normal 0.0-0.9 [facility] Comment on above: Result Comment: IG% - Immature Granulocytes (promyelocytes, myelocytes and metamyelocytes) > 1% indicates that a LEFT SHIFT is Present. Performed By: #### L 501.080 #### [facility] [address] [place], [address] Lymphocytes/100 WBC (Bld) 22.7 % Normal 19-41 [facility] Comment on above: Performed By: #### L 501.080 #### [facility] [address] [place], [address] MCH (RBC) [Entitic mass] 30.0 pg Normal 27.0-32.0 [facility] Comment on above: Performed By: #### L 501.080 #### [facility] [address] [place], [address] MCHC (RBC) [Mass/Vol] 31.0 g/dL Low 32-36 [facility] Comment on above: Performed By: #### L 501.080 #### [facility] [address] [place], [address] MCV (RBC) [Entitic vol] 96.8 fL High 80-94 [facility] Comment on above: Performed By: #### L 501.080 #### [facility] [address] [place], [address] Monocytes/100 WBC (Bld) 11.0 % High 0-10 [facility] Comment on above: Performed By: #### L 501.080 #### [facility] [address] [place], [address] Neutrophils/100 WBC (Bld) 62.3 % Normal 47-70 [facility] Comment on above: Performed By: #### L 501.080 #### [facility] [address] [place], [address] Nucleated RBC (Bld) [#/Vol] 0 10*3/uL Normal 0-5 [facility] Comment on above: Performed By: #### L 501.080 #### [facility] [address] [place], [address] Platelet mean volume (Bld) [Entitic vol] 11.4 fL Normal 6.2-12.0 [facility] Comment on above: Performed By: #### L 501.080 #### [facility] [address] [place], [address] Platelets (Bld) [#/Vol] 341 10*3/uL Normal 150-450 [facility] Comment on above: Performed By: #### L 501.080 #### [facility] [address] [place], [address] RBC (Bld) [#/Vol] 4.00 10*6/uL Low 4.6-6.2 [facility] Comment on above: Performed By: #### L 501.080 #### [facility] [address] [place], [address] RDW SD 61.1 fl High 35.1-43.9 [facility] Comment on above: Performed By: #### L 501.080 #### [facility] [address] [place], [address] WBC (Bld) [#/Vol] 8.7 10*3/uL Normal 4.4-11.0 [facility] Comment on above: Performed By: #### L 501.080 #### [facility] [address] [place], [address] Comprehensive Metabolic Prof ilon 01-28-2023 Albumin [Mass/Vol] 2.6 g/dL Low 3.2-5.0 [facility] Comment on above: Performed By: #### L 501.080 #### [facility] [address] [place], [address] Albumin/Globulin [Mass ratio] 0.7 {ratio} Low 0.9-2.4 [facility] Comment on above: Performed By: #### L 501.080 #### [facility] [address] [place], [address] ALK P 87 U/L Normal 45-117 [facility] Comment on above: Performed By: #### L 501.080 #### [facility] [address] [place], [address] ALT [Catalytic activity/Vol] 8 U/L Low 16-61 [facility] Comment on above: Performed By: #### L 501.080 #### [facility] [address] [place], [address] AST [Catalytic activity/Vol] 23 U/L Normal 15-37 [facility] Comment on above: Performed By: #### L 501.080 #### [facility] [address] [place], [address] Bilirubin [Mass/Vol] 0.40 mg/dL Normal 0.20-1.00 [facility] Comment on above: Result Comment: For patients on eltrombopag therapy, use of Dimension [place] TBIL is not recommended. Performed By: #### L 501.080 #### [facility] [address] [place], [address] BUN/CRE 27.5 RATIO High 10-20 [facility] Comment on above: Performed By: #### L 501.080 #### [facility] [address] [place], [address] CA,Total 8.6 mg/dL Normal 8.5-10.1 [facility] Comment on above: Performed By: #### L 501.080 #### [facility] [address] [place], [address] Chloride [Moles/Vol] 103 mmol/L Normal 98-107 [facility] Comment on above: Performed By: #### L 501.080 #### [facility] [address] [place], [address] CO2 [Moles/Vol] 31.0 mmol/L Normal 21.0-32.0 [facility] Comment on above: Performed By: #### L 501.080 #### [facility] [address] [place], [address] Creatinine [Mass/Vol] 0.84 mg/dL Normal 0.70-1.30 [facility] Comment on above: Result Comment: The validity of the calculated GFR GFRAA in patients over 70 years has not been determined. Clinical correlation is essential. Performed By: #### L 501.080 #### [facility] [address] [place], [address] ECRCL 59.91 ml/min Normal [facility] Comment on above: Performed By: #### L 501.080 #### [facility] [address] [place], [address] EST GFR - AA 116 mL/min Normal >60 [facility] Comment on above: Result Comment: Afri can Mosotho GFR Calc Performed By: #### L 501.080 #### [facility] [address] [place], [address] GAP 4 Low 5-15 [facility] Comment on above: Performed By: #### L 501.080 #### [facility] [address] [place], [address] GFR/1.73 sq M.predicted among non-blacks MDRD (S/P/Bld) [Vol rate/Area] 95 mL/min/{1.73_m2} Normal >60 [facility] Comment on above: Result Comment: Non- GFR Calc Performed By: #### L 501.080 #### [facility] [address] [place], [address] Globulin (S) [Mass/Vol] 3.7 g/dL Normal 2.2-4.2 [facility] Comment on above: Performed By: #### L 501.080 #### [facility] [address] [place], [address] Glucose [Mass/Vol] 74 mg/dL Normal 74-106 [facility] Comment on above: Performed By: #### L 501.080 #### [facility] [address] [place], [address] Potassium [Moles/Vol] 4.2 mmol/L Normal 3.5-5.1 [facility] Comment on above: Performed By: #### L 501.080 #### [facility] [address] [place], [address] Sodium [Moles/Vol] 138 mmol/L Normal 136-145 [facility] Comment on above: Performed By: #### L 501.080 #### [facility] [address] [place], [address] T PROT 6.3 g/dL Low 6.4-8.2 [facility] Comment on above: Performed By: #### L 501.080 #### [facility] [address] [place], [address] Urea nitrogen [Mass/Vol] 23 mg/dL High 7-18 [facility] Comment on above: Performed By: #### L 501.080 #### [facility] [address] [place], [address] Determination of erythrocyte mean corpuscular volume (MCV)Ordered By: Nicolasa Willingham on 01-28-2023 MCV (RBC) [Entitic vol] 96.8 fL 80-94 [facility] Hematocrit Auto (Bld) [Volum e fraction]Ordered By: Nicolasa Willingham on 01-28-2023 Hematocrit (Bld) [Volume fraction] 38.7 % 40-54 [facility] - Chemistry and C hemistry - challengeOrdered By: Nicolasa Willingham on 01-28-2023 ALP [Catalytic activity/Vol] 87 U/L 45-117 [facility] ALT [Catalytic activity/Vol] 8 U/L 16-61 [facility] CO2 [Moles/Vol] 31.0 mmol/L 21.0-32.0 [facility] Globulin (S) [Mass/Vol] 3.7 g/dL 2.2-4.2 [facility] Magnesium [Mass/Vol] 2.3 mg/dL 1.6-2.6 [facility] Urea nitrogen/Creatinine [Mass ratio] 27.5 mg/mg 10-20 [facility] - Hematology and Cell countsOrdered By: Nicolasa Willingham on 01-28-2023 Erythrocyte distribution width (RBC) [Entitic vol] 61.1 fL 35.1-43.9 [facility] Erythrocyte distribution width (RBC) [Ratio] 17.3 % 11.6-14.6 [facility] Immature granulocytes/100 WBC (Bld) 0.500 % 0.0-0.9 [facility] Comment on above: IG% - Immature Granu locytes (promyelocytes, myelocytes and metamyelocytes) > 1% indicates that a LEFT SHIFT is Present. MCH (RBC) [Entitic mass] 30.0 pg 27.0-32.0 [facility] Nucleated RBC/100 WBC (Bld) [Ratio] 0 % 0-5 [facility] MCHC Auto (RBC) [Mass/Vol]Or dered By: Nicolasa Willingham on 01-28-2023 MCHC (RBC) [Mass/Vol] 31.0 g/dL 32-36 [facility] Magnesiumon 01-28-2023 Magnesium [Mass/Vol] 2.3 mg/dL Normal 1.6-2.6 [facility] Comment on above: Performed By: #### L 501.080 #### [facility] [address] [place], [address] No Panel InformationOrdered By: Nicolasa Willingham on 01-28-2023 Estimated Creatinine Clearance Calc 59.91 ml/min [facility] Estimated GFR (MDRD) Amer 116 mL/min >60 [facility] Comment on above: GFR Calc Estimated GFR (MDRD) Non-Af Amer 95 mL/min >60 [facility] Comment on above: Non- GFR Calc Phosphoruson 01-28-2023 Phosphate [Mass/Vol] 3.7 mg/dL Normal 2.5-4.9 [facility] Comment on above: Performed By: #### L 501.080 #### [facility] [address] [place], [address] Platelets bldOrdered By: Indra Willingham on 01-28-2023 Platelets (Bld) [#/Vol] 341 10*3/uL 150-450 [facility] Serum or plasma albumin hayden urement (mass/volume)Ordered By: Nicolasa Willingham on 01-28-2023 Albumin [Mass/Vol] 2.6 g/dL 3.2-5.0 [facility] Serum or plasma albumin/glob ulin mass ratioOrdered By: Nicolasa Willingham on 01-28-2023 Albumin/Globulin [Mass ratio] 0.7 {ratio} 0.9-2.4 [facility] Serum or plasma calcium hayden urement (mass/volume)Ordered By: Nicolasa Willingham on 01-28-2023 Calcium [Mass/Vol] 8.6 mg/dL 8.5-10.1 [facility] Serum or plasma creatinine m easurement (mass/volume)Ordered By: Nicolasa Willingham on 01-28-2023 Creatinine [Mass/Vol] 0.84 mg/dL 0.70-1.30 [facility] Comment on above: The validity of the calculated GFR & GFRAA in patients over 70 years has not been determined. Clinical correlation is essential. Serum or plasma urea nitroge n measurement (mass/volume)Ordered By: Nicolasa Willingham on 01-28-2023 Urea nitrogen [Mass/Vol] 23 mg/dL 7-18 [facility] Thin prep Papanicolaou smear with manual screeningOrdered By: Nicolasa Willingham on 01-28-2023 Thin prep Papanicolaou smear with manual screening 23 U/L 15-37 [facility] Thin prep Papanicolaou smear with manual screening 4 5-15 [facility] Bedside Glucoseon 01-27-2023 FINGERSTICK GLU 86 mg/dL Normal 74-106 [facility] Comment on above: Result Comment: JESSY GEMENT OF PATIENT CARE PER NURSING PROTOCOL Performed By: #### L 501.080 #### [facility] [address] [place], [place], [id number] (529) FINGERSTICK GLU 104 mg/dL Normal 74-106 [facility] Comment on above: Result Comment: JESSY GEMENT OF PATIENT CARE PER NURSING PROTOCOL Performed By: #### L 501.080 ####[facility] [address] [place], [address] FINGERSTICK GLU 84 mg/dL Normal 74-106 [facility] Comment on above: Result Comment: JESSY GEMENT OF PATIENT CARE PER NURSING PROTOCOL Performed By: #### L 501.080 #### [facility] [address] [place], [address] FINGERSTICK GLU 147 mg/dL High 74-106 [facility] Comment on above: Result Comment: JESSY GEMENT OF PATIENT CARE PER NURSING PROTOCOL Performed By: #### L 501.080 ####[facility] [address] [place], [address] FINGERSTICK GLU 98 mg/dL Normal 74-106 [facility] Comment on above: Result Comment: JESSY GEMENT OF PATIENT CARE PER NURSING PROTOCOL Performed By: #### L 501.080 #### [facility] [address] [place], [address] Bedside Glucoseon 01-26-2023 FINGERSTICK GLU 136 mg/dL High 74-106 [facility] Comment on above: Result Comment: JESSY GEMENT OF PATIENT CARE PER NURSING PROTOCOL Performed By: #### L 501.080 #### [facility] [address] [place], [address] FINGERSTICK GLU 116 mg/dL High 74-106 [facility] Comment on above: Result Comment: JESSY GEMENT OF PATIENT CARE PER NURSING PROTOCOL Performed By: #### L 501.080 #### [facility] [address] [place], [address] FINGERSTICK GLU 150 mg/dL High 74-106 [facility] Comment on above: Result Comment: JESSY GEMENT OF PATIENT CARE PER NURSING PROTOCOL Performed By: #### L 501.080 #### [facility] [address] [place], [address] FINGERSTICK GLU 85 mg/dL Normal 74-106 [facility] Comment on above: Result Comment: JESSY GEMENT OF PATIENT CARE PER NURSING PROTOCOL Performed By: #### L 501.080 #### [facility] [address] [place], [address] Bedside Glucoseon 01-25-2023 FINGERSTICK GLU 114 mg/dL High 74-106 [facility] Comment on above: Result Comment: JESSY GEMENT OF PATIENT CARE PER NURSING PROTOCOL Performed By: #### L 501.080 #### [facility] [address] [place], [address] FINGERSTICK GLU 238 mg/dL High 74-106 [facility] Comment on above: Result Comment: JESSY GEMENT OF PATIENT CARE PER NURSING PROTOCOL Performed By: #### L 501.080 ####[facility] [address] [place], [address] FINGERSTICK GLU 134 mg/dL High 74-106 [facility] Comment on above: Result Comment: JESSY GEMENT OF PATIENT CARE PER NURSING PROTOCOL Performed By: #### L 501.080 ####[facility] [address] [place], [address] FINGERSTICK GLU 122 mg/dL High 74-106 [facility] Comment on above: Result Comment: JESSY GEMENT OF PATIENT CARE PER NURSING PROTOCOL Performed By: #### L 501.080 ####[facility] [address] [place], [address] Bedside Glucoseon 01-24-2023 FINGERSTICK GLU 103 mg/dL Normal 74-106 [facility] Comment on above: Result Comment: JESSY GEMENT OF PATIENT CARE PER NURSING PROTOCOL Performed By: #### L 501.080 #### [facility] [address] [place], [address] FINGERSTICK GLU 107 mg/dL High 74-106 [facility] Comment on above: Result Comment: JESSY GEMENT OF PATIENT CARE PER NURSING PROTOCOL Performed By: #### L 501.080 #### [facility] [address] [place], [address] FINGERSTICK GLU 102 mg/dL Normal 74-106 [facility] Comment on above: Result Comment: JESSY GEMENT OF PATIENT CARE PER NURSING PROTOCOL Performed By: #### L 501.080 #### [facility] [address] [place], [address] FINGERSTICK GLU 122 mg/dL High 74-106 [facility] Comment on above: Result Comment: JESSY GEMENT OF PATIENT CARE PER NURSING PROTOCOL Performed By: #### L 501.080 #### [facility] [address] [place], [address] FINGERSTICK GLU 114 mg/dL High 74-106 [facility] Comment on above: Result Comment: JESSY GEMENT OF PATIENT CARE PER NURSING PROTOCOL Performed By: #### L 501.080 ####[facility] [address] [place], [address] FINGERSTICK GLU 95 mg/dL Normal 74-106 [facility] Comment on above: Result Comment: JESSY GEMENT OF PATIENT CARE PER NURSING PROTOCOL Performed By: #### L 501.080 #### [facility] [address] [place], [address] Bedside Glucoseon 01-23-2023 FINGERSTICK GLU 94 mg/dL Normal 74-106 [facility] Comment on above: Result Comment: JESSY GEMENT OF PATIENT CARE PER NURSING PROTOCOL Performed By: #### L 501.080 #### [facility] [address] [place], [address] FINGERSTICK GLU 96 mg/dL Normal 74-106 [facility] Comment on above: Result Comment: JESSY GEMENT OF PATIENT CARE PER NURSING PROTOCOL Performed By: #### L 501.080 #### [facility] [address] [place], [address] FINGERSTICK GLU 150 mg/dL High 74-106 [facility] Comment on above: Result Comment: JESSY GEMENT OF PATIENT CARE PER NURSING PROTOCOL Performed By: #### L 501.080 #### [facility] [address] [place], [address] FINGERSTICK GLU 125 mg/dL High 74-106 [facility] Comment on above: Result Comment: JESSY GEMENT OF PATIENT CARE PER NURSING PROTOCOL Performed By: #### L 501.080 #### [facility] [address] [place], [address] Bedside Glucoseon 3 FINGERSTICK GLU 108 mg/dL High 74-106 [facility] Comment on above: Result Comment: JESSY GEMENT OF PATIENT CARE PER NURSING PROTOCOL Performed By: #### L 501.080 #### [facility] [address] [place], [address] FINGERSTICK GLU 87 mg/dL Normal 74-106 [facility] Comment on above: Result Comment: JESSY GEMENT OF PATIENT CARE PER NURSING PROTOCOL Performed By: #### L 501.080 #### [facility] [address] [place], [address] Bedside Glucoseon 3 FINGERSTICK GLU 160 mg/dL High 74-106 [facility] Comment on above: Result Comment: JESSY GEMENT OF PATIENT CARE PER NURSING PROTOCOL Performed By: #### L 501.080 #### [facility] [address] [place], [address] FINGERSTICK GLU 169 mg/dL High 74-106 [facility] Comment on above: Result Comment: JESSY GEMENT OF PATIENT CARE PER NURSING PROTOCOL Performed By: #### L 501.080 #### [facility] [address] [place], [address] FINGERSTICK GLU 115 mg/dL High 74-106 [facility] Comment on above: Result Comment: JESSY GEMENT OF PATIENT CARE PER NURSING PROTOCOL Performed By: #### L 501.080 #### [facility] [address] [place], [address] FINGERSTICK GLU 87 mg/dL Normal 74-106 [facility] Comment on above: Result Comment: JESSY GEMENT OF PATIENT CARE PER NURSING PROTOCOL Performed By: #### L 501.080 #### [facility] [address] [place], [address] Culture, Blood (WB)on 2022 CUB No growth in 5 days. Normal [facility] Comment on above: Performed By: #### L 501.080 #### [facility] [address] [place], [address] CUB No growth in 5 days. Normal [facility] Comment on above: Performed By: #### M 200.1000 ####[facility] [address] [place], [address] Bedside Glucoseon 01-20-2023 FINGERSTICK GLU 126 mg/dL High 74-106 [facility] Comment on above: Result Comment: JESSY GEMENT OF PATIENT CARE PER NURSING PROTOCOL Performed By: #### L 501.080 #### [facility] [address] [place], [address] FINGERSTICK GLU 79 mg/dL Normal 74-106 [facility] Comment on above: Result Comment: JESSY GEMENT OF PATIENT CARE PER NURSING PROTOCOL Performed By: #### L 501.080 #### [facility] [address] [place], [address] FINGERSTICK GLU 115 mg/dL High 74-106 [facility] Comment on above: Result Comment: JESSY GEMENT OF PATIENT CARE PER NURSING PROTOCOL Performed By: #### L 501.080 #### [facility] [address] [place], [address] FINGERSTICK GLU 74 mg/dL Normal 74-106 [facility] Comment on above: Result Comment: JESSY GEMENT OF PATIENT CARE PER NURSING PROTOCOL Performed By: #### L 501.080 #### [facility] [address] [place], [address] Bedside Glucoseon 01-19-2023 FINGERSTICK GLU 74 mg/dL Normal 74-106 [facility] Comment on above: Result Comment: JESSY GEMENT OF PATIENT CARE PER NURSING PROTOCOL Performed By: #### L 501.080 #### [facility] [address] [place], [address] FINGERSTICK GLU 129 mg/dL High 74-106 [facility] Comment on above: Result Comment: JESSY GEMENT OF PATIENT CARE PER NURSING PROTOCOL Performed By: #### L 501.080 ####[facility] [address] [place], [address] FINGERSTICK GLU 121 mg/dL High 74-106 [facility] Comment on above: Result Comment: JESSY GEMENT OF PATIENT CARE PER NURSING PROTOCOL Performed By: #### L 501.080 ####[facility] [address] [place], [address] FINGERSTICK GLU 86 mg/dL Normal 74-106 [facility] Comment on above: Result Comment: JESSY GEMENT OF PATIENT CARE PER NURSING PROTOCOL Performed By: #### L 501.080 ####[facility] [address] [place], [address] Bedside Glucoseon 01-18-2023 FINGERSTICK GLU 99 mg/dL Normal 74-106 [facility] Comment on above: Result Comment: JESSY GEMENT OF PATIENT CARE PER NURSING PROTOCOL Performed By: #### L 501.080 ####[facility] [address] [place], [address] FINGERSTICK GLU 116 mg/dL High 74-106 [facility] Comment on above: Result Comment: JESSY GEMENT OF PATIENT CARE PER NURSING PROTOCOL Performed By: #### L 501.080 #### [facility] [address] [place], [address] FINGERSTICK GLU 94 mg/dL Normal 74-106 [facility] Comment on above: Result Comment: JESSY GEMENT OF PATIENT CARE PER NURSING PROTOCOL Performed By: #### L 501.080 ####[facility] [address] [place], [address] Urine Cultureon 01-18-2023 [facility] Staphylococcus aureu s Gentry Count >100,000 Staphylococcus aureus: REACTION cefOXitin Susc Islt NEG Doxycycline Islt MAT <=0.5 S Clindamycin Islt MAT R Clindamycin.induced Susc Islt POS Gentamicin Islt MAT <=0.5 S levoFLOXacin Islt MAT 0.25 S Linezolid Islt MAT 2 S Moxifloxacin Islt MAT <=0.25 S Nitrofurantoin Islt MAT <=16 S Oxacillin Susc Islt <=0.25 S Tetracycline Islt MAT <=1 S TMP SMX Islt MAT <=10 S Vancomycin Islt MAT <=0.5 S Normal [facility] Comment on above: Performed By: #### L 501.080 #### [facility] [address] [place], [address] Bedside Glucoseon 01-17-2023 FINGERSTICK GLU 102 mg/dL Normal 74-106 [facility] Comment on above: Result Comment: JESSY GEMENT OF PATIENT CARE PER NURSING PROTOCOL Performed By: #### L 501.080 #### [facility] [address] [place], [address] FINGERSTICK GLU 95 mg/dL Normal 74-106 [facility] Comment on above: Result Comment: JESSY GEMENT OF PATIENT CARE PER NURSING PROTOCOL Performed By: #### L 501.080 ####[facility] [address] [place], [address] FINGERSTICK GLU 116 mg/dL High 74-106 [facility] Comment on above: Result Comment: JESSY GEMENT OF PATIENT CARE PER NURSING PROTOCOL Performed By: #### L 501.080 ####[facility] [address] [place], [address] FINGERSTICK GLU 83 mg/dL Normal 74-106 [facility] Comment on above: Result Comment: JESSY GEMENT OF PATIENT CARE PER NURSING PROTOCOL Performed By: #### L 501.080 ####[facility] [address] [place], [address] Bedside Glucoseon 01-16-2023 FINGERSTICK GLU 90 mg/dL Normal 74-106 [facility] Comment on above: Result Comment: JESSY GEMENT OF PATIENT CARE PER NURSING PROTOCOL Performed By: #### L 501.080 ####[facility] [address] [place], [address] FINGERSTICK GLU 80 mg/dL Normal 74-106 [facility] Comment on above: Result Comment: JESSY GEMENT OF PATIENT CARE PER NURSING PROTOCOL Performed By: #### L 501.080 #### [facility] [address] [place], [address] FINGERSTICK GLU 110 mg/dL High 74-106 [facility] Comment on above: Result Comment: JESSY GEMENT OF PATIENT CARE PER NURSING PROTOCOL Performed By: #### L 501.080 #### [facility] [address] [place], [address] FINGERSTICK GLU 91 mg/dL Normal 74-106 [facility] Comment on above: Result Comment: JESSY GEMENT OF PATIENT CARE PER NURSING PROTOCOL Performed By: #### L 501.080 #### [facility] [address] [place], [address] Basophil percentageOrdered B y: Ana Lilia Ji on 01-15-2023 Basophil percentage >100 SEEN /hpf 0-5 [facility] Bedside Glucoseon 01-15-2023 FINGERSTICK GLU 133 mg/dL High 74-106 [facility] Comment on above: Result Comment: JESSY GEMENT OF PATIENT CARE PER NURSING PROTOCOL Performed By: #### L 501.080 ####[facility] [address] [place], [address] FINGERSTICK GLU 115 mg/dL High 74-106 [facility] Comment on above: Result Comment: JESSY GEMENT OF PATIENT CARE PER NURSING PROTOCOL Performed By: #### L 501.080 #### [facility] [address] [place], [address] FINGERSTICK GLU 104 mg/dL Normal 74-106 [facility] Comment on above: Result Comment: JESSY GEMENT OF PATIENT CARE PER NURSING PROTOCOL Performed By: #### L 501.080 #### [facility] [address] [place], [address] Bilirubin Test strip Ql (U)O rdered By: Ana Lilia Ji on 01-15-2023 Bilirubin Ql (U) Negative Negative [facility] CBC-Complete Blood Cnt No Di ffon 01-15-2023 Erythrocyte distribution width (RBC) [Ratio] 15.3 % High 11.6-14.6 [facility] Comment on above: Performed By: #### L 501.080 #### [facility] [address] [place], [address] Hematocrit (Bld) [Volume fraction] 36.4 % Low 40-54 [facility] Comment on above: Performed By: #### L 501.080 #### [facility] [address] [place], [address] Hemoglobin (Bld) [Mass/Vol] 11.5 g/dL Low 13.0-16.5 [facility] Comment on above: Performed By: #### L 501.080 #### [facility] [address] [place], [address] MCH (RBC) [Entitic mass] 29.8 pg Normal 27.0-32.0 [facility] Comment on above: Performed By: #### L 501.080 #### [facility] [address] [place], [address] MCHC (RBC) [Mass/Vol] 31.6 g/dL Low 32-36 [facility] Comment on above: Performed By: #### L 501.080 #### [facility] [address] [place], [address] MCV (RBC) [Entitic vol] 94.3 fL High 80-94 [facility] Comment on above: Performed By: #### L 501.080 #### [facility] [address] [place], [address] Platelet mean volume (Bld) [Entitic vol] 10.9 fL Normal 6.2-12.0 [facility] Comment on above: Performed By: #### L 501.080 #### [facility] [address] [place], [address] Platelets (Bld) [#/Vol] 379 10*3/uL Normal 150-450 [facility] Comment on above: Performed By: #### L 501.080 #### [facility] [address] [place], [address] RBC (Bld) [#/Vol] 3.86 10*6/uL Low 4.6-6.2 [facility] Comment on above: Performed By: #### L 501.080 #### [facility] [address] [place], [address] RDW SD 52.0 fl High 35.1-43.9 [facility] Comment on above: Performed By: #### L 501.080 #### [facility] [address] [place], [address] WBC (Bld) [#/Vol] 10.3 10*3/uL Normal 4.4-11.0 [facility] Comment on above: Performed By: #### L 501.080 #### [facility] [address] [place], [address] Comprehensive Metabolic Prof sheridanalex 01-15-2023 ALT [Catalytic activity/Vol] U/L Low 16-61 [facility] Comment on above: Performed By: #### L 501.2300, L501.5200, L500.4050, L100.0500 ####[facility] [address] [place], [address] Bilirubin [Mass/Vol] 0.40 mg/dL Normal 0.20-1.00 [facility] Comment on above: Result Comment: For patients on eltrombopag therapy, use of Dimension [place] TBIL is not recommended. Performed By: #### L 501.2300, L501.5200, L500.4050, L100.0500 ####[facility] [address] [place], [address] Chloride [Moles/Vol] 102 mmol/L Normal 98-107 [facility] Comment on above: Performed By: #### L 501.2300, L501.5200, L500.4050, L100.0500 ####[facility] [address] [place], [address] CO2 [Moles/Vol] 35.0 mmol/L High 21.0-32.0 [facility] Comment on above: Performed By: #### L 501.2300, L501.5200, L500.4050, L100.0500 ####[facility] [address] [place], [address] GAP -1 Low 5-15 [facility] Comment on above: Performed By: #### L 501.2300, L501.5200, L500.4050, L100.0500 ####[facility] [address] [place], [address] Potassium [Moles/Vol] 4.2 mmol/L Normal 3.5-5.1 [facility] Comment on above: Performed By: #### L 501.2300, L501.5200, L500.4050, L100.0500 ####[facility] [address] [place], [address] Sodium [Moles/Vol] 136 mmol/L Normal 136-145 [facility] Comment on above: Performed By: #### L 501.2300, L501.5200, L500.4050, L100.0500 ####[facility] [address] [place], [address] Albumin [Mass/Vol] 2.4 g/dL Low 3.2-5.0 [facility] Comment on above: Performed By: #### L 501.2300, L501.5200, L500.4050, L100.0500 ####[facility] [address] [place], [address] Albumin/Globulin [Mass ratio] 0.7 {ratio} Low 0.9-2.4 [facility] Comment on above: Performed By: #### L 501.2300, L501.5200, L500.4050, L100.0500 ####[facility] [address] [place], [address] ALK P 77 U/L Normal 45-117 [facility] Comment on above: Performed By: #### L 501.2300, L501.5200, L500.4050, L100.0500 ####[facility] [address] [place], [address] AST [Catalytic activity/Vol] 10 U/L Low 15-37 [facility] Comment on above: Performed By: #### L 501.2300, L501.5200, L500.4050, L100.0500 ####[facility] [address] [place], [address] BUN/CRE 24.7 RATIO High 10-20 [facility] Comment on above: Performed By: #### L 501.2300, L501.5200, L500.4050, L100.0500 ####[facility] [address] [place], [address] CA,Total 8.4 mg/dL Low 8.5-10.1 [facility] Comment on above: Performed By: #### L 501.2300, L501.5200, L500.4050, L100.0500 ####[facility] [address] [place], [address] Creatinine [Mass/Vol] 0.97 mg/dL Normal 0.70-1.30 [facility] Comment on above: Result Comment: The validity of the calculated GFR GFRAA in patients over 70 years has not been determined. Clinical correlation is essential. Performed By: #### L 501.2300, L501.5200, L500.4050, L100.0500 ####[facility] [address] [place], [address] ECRCL 48.20 ml/min Normal [facility] Comment on above: Performed By: #### L 501.2300, L501.5200, L500.4050, L100.0500 ####[facility] [address] [place], [address] EST GFR - AA 97 mL/min Normal >60 [facility] Comment on above: Performed By: #### L 501.2300, L501.5200, L500.4050, L100.0500 ####[facility] [address] [place], [address] GFR/1.73 sq M.predicted among non-blacks MDRD (S/P/Bld) [Vol rate/Area] 80 mL/min/{1.73_m2} Normal >60 [facility] Comment on above: Performed By: #### L 501.2300, L501.5200, L500.4050, L100.0500 ####[facility] [address] [place], [address] Globulin (S) [Mass/Vol] 3.6 g/dL Normal 2.2-4.2 [facility] Comment on above: Performed By: #### L 501.2300, L501.5200, L500.4050, L100.0500 ####[facility] [address] [place], [address] Glucose [Mass/Vol] 99 mg/dL Normal 74-106 [facility] Comment on above: Performed By: #### L 501.2300, L501.5200, L500.4050, L100.0500 ####[facility] [address] [place], [address] T PROT 6.0 g/dL Low 6.4-8.2 [facility] Comment on above: Performed By: #### L 501.2300, L501.5200, L500.4050, L100.0500 ####[facility] [address] [place], [address] Urea nitrogen [Mass/Vol] 24 mg/dL High 7-18 [facility] Comment on above: Performed By: #### L 501.2300, L501.5200, L500.4050, L100.0500 ####[facility] [address] [place], [address] Culture, urineOrdered By: Deniz Willingham on 01-15-2023 Bacteria identified Cx Nom (U) Staphylococcus aureus [facility] Bacteria identified Cx Nom (U) Staphylococcus aureus [facility] Ketones Test strip Ql (U)Ord ered By: Ana Lilia Ji on 01-15-2023 Ketones Ql (U) 5 mg/dl Negative [facility] - Microbiology an d Antimicrobial susceptibilityOrdered By: Ana Lilia Ji on 01-15-2023 Bacteria identified Cx Nom (Bld) No growth in 5 days. [facility] Bacteria identified Cx Nom (Bld) No growth in 5 days. [facility] Magnesiumon 01-15-2023 Magnesium [Mass/Vol] 3.2 mg/dL High 1.6-2.6 [facility] Comment on above: Performed By: #### L 501.2300, L501.5200, L500.4050, L100.0500 ####[facility] [address] [place], [address] Mucus LM Ql (Urine sed)Order ed By: Ana Lilia Ji on 01-15-2023 Mucus Ql (Urine sed) RARE /hpf [facility] Nitrite Test strip Ql (U)Ord ered By: Ana Lilia Ji on 01-15-2023 Nitrite Ql (U) Negative Negative [facility] Phosphoruson 01-15-2023 Phosphate [Mass/Vol] 2.4 mg/dL Low 2.5-4.9 [facility] Comment on above: Performed By: #### L 501.2300, L501.5200, L500.4050, L100.0500 ####[facility] [address] [place], [address] Protein Test strip Ql (U)Ord ered By: Ana Lilia Ji on 01-15-2023 Protein Ql (U) 15 mg/dl Negative [facility] Squamous epithelial cells de tection in urine sediment by light microscopyOrdered By: Ana Lilia Ji on 01-15-2023 Epithelial cells.squamous LM Ql (Urine sed) 0 SEEN /hpf 0-5 [facility] Urinalysis, Completeon 01-15 Mucus Ql (Urine sed) RARE Normal [facility] Comment on above: Order Comment: june traight cathCATHETER SPECIMEN Performed By: #### L 501.080 #### [facility] [address] [place], [address] RBC 0-5 SEEN Normal 0-5 [facility] Comment on above: Order Comment: may s traight cathCATHETER SPECIMEN Performed By: #### L 501.080 #### [facility] [address] [place], [address] BACTERIA 1+ /hpf Normal None Seen [facility] Comment on above: Order Comment: may s traight cathCATHETER SPECIMEN Performed By: #### L 501.080 #### [facility] [address] [place], [address] WBC >100 SEEN Normal 0-5 [facility] Comment on above: Order Comment: may s traight cathCATHETER SPECIMEN Performed By: #### L 501.080 #### [facility] [address] [place], [address] EPI,SQUAMOUS 0 SEEN Normal 0-5 [facility] Comment on above: Order Comment: may s traight cathCATHETER SPECIMEN Performed By: #### L 501.080 #### [facility] [address] [place], [address] Urine blood detectionOrdered By: Ana Lilia Ji on 01-15-2023 RBC Ql (U) 25 /ul Negative [facility] RBC Ql (U) 0-5 SEEN /hpf 0-5 [facility] Urine clarityOrdered By: Fritz Ji on 01-15-2023 Clarity (U) Sl. Cloudy Clear [facility] Urine color determinationOrd ered By: Ana Lilia Ji on 01-15-2023 Color (U) Yellow Yellow [facility] Urine glucose detectionOrder ed By: Ana Lilia Ji on 01-15-2023 Glucose Ql (U) Normal mg/dl Normal [facility] Urine leukocyte esterase det ection by dipstickOrdered By: Ana Lilia Ji on 01-15-2023 Leukocyte esterase Test strip Ql (U) 500 /ul Negative [facility] Urine pHOrdered By: Ana Lilia castro on 01-15-2023 pH (U) 8.0 [pH] 5.0 - 8.0 [facility] Urine sediment bacteria coun t by microscopy (number/high power field)Ordered By: Ana Lilia Ji on 01-15-2023 Bacteria LM.HPF (Urine sed) [#/Area] 1 /[HPF] None Seen [facility] Urine specific gravity measu rementOrdered By: Ana Lilia Ji on 01-15-2023 Specific gravity (U) [Rel density] 1.015 1.002-1.030 [facility] Urobilinogen Auto test strip Ql (U)Ordered By: Ana Lilia Ji on 01-15-2023 Urobilinogen Ql (U) Normal mg/dl Normal [facility] Basic metabolic 2000 panelon 01-14-2023 Anion gap [Moles/Vol] 5 mmol/L Low 9-18 [facility] Comment on above: Order Comment: Speci men Type: BLOOD SPECIMENOrdering Facility: [facility] Address: [address] [place] [address] Performed By: #### 2 4321-2 ####[facility]ORATORYCLIA [id number] [place] [address] [place] Calcium [Mass/Vol] 8.0 mg/dL Low 8.5-10.2 [facility] Comment on above: Order Comment: Speci men Type: BLOOD SPECIMENOrdering Facility: [facility] Address: [address] [place] [address] Performed By: #### 2 4321-2 ####[facility]ORATORYCLIA [id number] [place] [address] [place] Chloride [Moles/Vol] 96 mmol/L Low 97-105 [facility] Comment on above: Order Comment: Speci men Type: BLOOD SPECIMENOrdering Facility: [facility] Address: [address] [place] [address] Performed By: #### 2 4321-2 ####[facility]ORATORYCLIA [id number] [place] [address] [place] CO2 [Moles/Vol] 32 mmol/L High 22-30 [facility] Comment on above: Order Comment: Speci men Type: BLOOD SPECIMENOrdering Facility: [facility] Address: [address] [place] [address] Performed By: #### 2 4321-2 ####[facility]ORATORYCLIA [id number] [address] STATES OF [facility] Creatinine [Mass/Vol] 0.85 mg/dL Normal 0.73-1.22 [facility] Comment on above: Order Comment: Greer tapia Type: BLOOD SPECIMENOrdering Facility: [facility] Address: [address] [place] [address] Performed By: #### 2 4321-2 ####[facility]ORATORYCLIA [id number] [place] [id number] [facility] Creatinine and Glomerular filtration rate.predicted panel (S/P/Bld) 91 mL/min/1.73m??? Normal >=60 [facility] Comment on above: Order Comment: Greer tapia Type: BLOOD SPECIMENOrdering Facility: [facility] Address: [address] [place] [address] Result Comment: Daiana mated Glomerular Filtration Rate (eGFR) is calculated using the 2020 CKD-EPI creatinine equation. This equation utilizes serum creatinine, sex, and age as parameters. The creatinine assay has traceable calibration to isotope dilution-mass spectrometry. Refer to KDIGO guidelines for clinical interpretation. In patients with unstable renal function, e.g. those with acute kidney injury, the eGFR may not accurately reflect actual GFR. Performed By: #### 2 4321-2 ####[facility]ORATORYCLIA [id number] [address] [place] Glucose [Mass/Vol] 104 mg/dL High 74-99 [facility] Comment on above: Order Comment: Greer tapia Type: BLOOD SPECIMENOrdering Facility: [facility] Address: [address] [place] [address] Result Comment: The [place] [employer] (ADA) provides guidance for cutoff values for fasting glucose and random glucose. The ADA defines fasting as no caloric intake for at least 8 hours. Fasting plasma glucose results between 100 to 125 mg/dL indicate increased risk for diabetes (prediabetes).Fasting plasma glucose results greater than or equal to 126 mg/dL meet the criteria for diagnosis of diabetes. In the absence of unequivocal hyperglycemia, results should be confirmed by repeat testing. In a patient with classic symptoms of hyperglycemia or hyperglycemic crisis, random plasma glucose results greater than or equal to 200 mg/dL meet the criteria for diagnosis of diabetes.Reference: Standards of Medical Care in Diabetes 2016, [place] [employer]. Diabetes Care. 2016.39(Suppl 1). Performed By: #### 2 4321-2 ####[facility] LABORATORYCLIA [id number] [address] Potassium [Moles/Vol] 4.6 mmol/L Normal 3.7-5.1 [facility] Comment on above: Order Comment: Speci men Type: BLOOD SPECIMENOrdering Facility: [facility] Address: [address] [place] [address] Performed By: #### 2 4321-2 ####[facility] LABORATORYCLIA [id number] [address] Sodium [Moles/Vol] 133 mmol/L Low 136-144 [facility] Comment on above: Order Comment: Madelinei men Type: BLOOD SPECIMENOrdering Facility: [facility] Address: [address] [place] [address] Performed By: #### 2 4321-2 ####[facility] LABORATORYCLIA [id number] [address] Urea nitrogen [Mass/Vol] 25 mg/dL High 9-24 [facility] Comment on above: Order Comment: Madelinei regina Type: BLOOD SPECIMENOrdering Facility: [facility] Address: [address] [place] [address] Performed By: #### 2 4321-2 ####[facility] LABORATORYCLIA [id number] [address] OF [facility] CASE MANAGEMon 01-14-2023 CASE MANAGEM Normal [facility] CASE MANAGEM Normal [facility] CBC W Auto Differential pane l (Bld)on 01-14-2023 Basophils (Bld) [#/Vol] 0.04 10*3/uL Normal <0.11 [facility] Comment on above: Order Comment: Speci men Type: BLOOD SPECIMENOrdering Facility: [facility] Address: [address] [place] [address] Performed By: #### 5 7021-8 ####[facility] LABORATORYCLIA [id number] [place] [address] [place] Basophils/100 WBC (Bld) 0.3 % Normal [facility] Comment on above: Order Comment: Speci men Type: BLOOD SPECIMENOrdering Facility: [facility] Address: [address] [place] [address] Performed By: #### 5 7021-8 ####[facility] LABORATORYCLIA [id number] [address] [place] Differential cell count method Nom (Bld) Auto Normal [facility] Comment on above: Order Comment: Speci men Type: BLOOD SPECIMENOrdering Facility: [facility] Address: [address] [place] [address] Performed By: #### 5 7021-8 ####[facility] LABORATORYCLIA [id number] [place] [address] [place] Eosinophils (Bld) [#/Vol] 0.17 10*3/uL Normal <0.46 [facility] Comment on above: Order Comment: Speci men Type: BLOOD SPECIMENOrdering Facility: [facility] Address: [address] [place] [address] Performed By: #### 5 7021-8 ####[facility] LABORATORYCLIA [id number] [address] Eosinophils/100 WBC (Bld) 1.4 % Normal [facility] Comment on above: Order Comment: Speci men Type: BLOOD SPECIMENOrdering Facility: [facility] Address: [address] [place] [address] Performed By: #### 5 7021-8 ####LYN LABORATORYCLIA [id number] [place] [address] [place] Erythrocyte distribution width (RBC) [Ratio] 14.8 % Normal 11.5-15.0 [facility] Comment on above: Order Comment: Speci men Type: BLOOD SPECIMENOrdering Facility: [facility] Address: [address] [place] [address] Performed By: #### 5 7021-8 ####[facility] LABORATORYCLIA [id number] [place] [address] [place] Hematocrit (Bld) [Volume fraction] 34.2 % Low 39.0-51.0 [facility] Comment on above: Order Comment: Speci men Type: BLOOD SPECIMENOrdering Facility: [facility] Address: [address] [place] [address] Performed By: #### 5 7021-8 ####[facility] LABORATORYCLIA [id number] [place] [address] [place] Hemoglobin (Bld) [Mass/Vol] 11.0 g/dL Low 13.0-17.0 [facility] Comment on above: Order Comment: Speci men Type: BLOOD SPECIMENOrdering Facility: [facility] Address: [address] [place] [address] Performed By: #### 5 7021-8 ####LYN LABORATORYCLIA [id number] [place] [address] [place] Immature granulocytes (Bld) [#/Vol] 0.07 10*3/uL Normal <0.10 [facility] Comment on above: Order Comment: Speci men Type: BLOOD SPECIMENOrdering Facility: [facility] Address: [address] [place] [address] Performed By: #### 5 7021-8 ####[facility] LABORATORYCLIA [id number] [address] [place] Immature granulocytes/100 WBC (Bld) 0.6 % Normal [facility] Comment on above: Order Comment: Speci men Type: BLOOD SPECIMENOrdering Facility: [facility] Address: [address] [place] [address] Performed By: #### 5 7021-8 ####[facility]N LABORATORYCLIA [id number] [place] [address] [place] Lymphocytes (Bld) [#/Vol] 1.56 10*3/uL Normal 1.00-4.00 [facility] Comment on above: Order Comment: Speci men Type: BLOOD SPECIMENOrdering Facility: [facility] Address: [address] [place] [address] Performed By: #### 5 7021-8 ####LY[facility] LABORATORYCLIA [id number] [place] [address] [place] Lymphocytes/100 WBC (Bld) 13.1 % Normal [facility] Comment on above: Order Comment: Speci men Type: BLOOD SPECIMENOrdering Facility: [facility] Address: [address] [place] [address] Performed By: #### 5 7021-8 ####LYN LABORATORYCLIA [id number] [place] [address] [place] MCH (RBC) [Entitic mass] 29.5 pg Normal 26.0-34.0 [facility] Comment on above: Order Comment: Speci men Type: BLOOD SPECIMENOrdering Facility: [facility] Address: [address] [place] [address] Performed By: #### 5 7021-8 ####LYN LABORATORYCLIA [id number] [place] [address] [place] MCHC (RBC) [Mass/Vol] 32.2 g/dL Normal 30.5-36.0 [facility] Comment on above: Order Comment: Speci men Type: BLOOD SPECIMENOrdering Facility: [facility] Address: [address] [place] [address] Performed By: #### 5 7021-8 ####LYN LABORATORYCLIA [id number] [address] [place] MCV (RBC) [Entitic vol] 91.7 fL Normal 80.0-100.0 M [facility] Comment on above: Order Comment: Speci men Type: BLOOD SPECIMENOrdering Facility: [facility] Address: [address] [place] [address] Performed By: #### 5 7021-8 ####LYN LABORATORYCLIA [id number] [place] [address] [place] Monocytes (Bld) [#/Vol] 1.05 10*3/uL High <0.87 [facility] Comment on above: Order Comment: Speci men Type: BLOOD SPECIMENOrdering Facility: [facility] Address: [address] [place] [address] Performed By: #### 5 7021-8 ####LYN LABORATORYCLIA [id number] [place] [address] [place] Monocytes/100 WBC (Bld) 8.8 % Normal [facility] Comment on above: Order Comment: Speci men Type: BLOOD SPECIMENOrdering Facility: [facility] Address: [address] [place] [address] Performed By: #### 5 7021-8 ####LYN LABORATORYCLIA [id number] [place] [address] [place] Neutrophils (Bld) [#/Vol] 9.03 10*3/uL High 1.45-7.50 [facility] Comment on above: Order Comment: Speci men Type: BLOOD SPECIMENOrdering Facility: [facility] Address: [address] [place] [address] Performed By: #### 5 7021-8 ####LYN LABORATORYCLIA [id number] [place] [address] [place] Neutrophils/100 WBC (Bld) 75.8 % Normal [facility] Comment on above: Order Comment: Speci men Type: BLOOD SPECIMENOrdering Facility: [facility] Address: [address] [place] [address] Performed By: #### 5 7021-8 ####LYN LABORATORYCLIA [id number] [place] [address] [place] Nucleated RBC (Bld) [#/Vol] 10*3/uL Normal <0.01 [facility] Comment on above: Order Comment: Speci men Type: BLOOD SPECIMENOrdering Facility: [facility] Address: [address] [place] [address] Performed By: #### 5 7021-8 ####LYN LABORATORYCLIA [id number] [place] [address] [place] Nucleated RBC/100 WBC (Bld) [Ratio] 0.0 /100 WBC Normal [facility] Comment on above: Order Comment: Speci men Type: BLOOD SPECIMENOrdering Facility: [facility] Address: [address] [place] [address] Performed By: #### 5 7021-8 ####LYN LABORATORYCLIA [id number] [place] [address] [place] Platelet mean volume (Bld) [Entitic vol] 10.3 fL Normal 9.0-12.7 [facility] Comment on above: Order Comment: Speci men Type: BLOOD SPECIMENOrdering Facility: [facility] Address: [place] [address] Performed By: #### 5 7021-8 ####LYN LABORATORYCLIA [id number] [place] [address] [place] Platelets (Bld) [#/Vol] 351 10*3/uL Normal 150-400 [facility] Comment on above: Order Comment: Speci men Type: BLOOD SPECIMENOrdering Facility: [facility] Address: [place] [address] Performed By: #### 5 7021-8 ####LYONS LABORATORYCLIA [id number] [place] [address] [place] RBC (Bld) [#/Vol] 3.73 10*6/uL Low 4.20-6.00 [facility] Comment on above: Order Comment: Speci men Type: BLOOD SPECIMENOrdering Facility: [facility] Address: [place] [address] Performed By: #### 5 7021-8 ####LYONS LABORATORYCLIA [id number] [place] [address] [place] WBC (Bld) [#/Vol] 11.92 10*3/uL High 3.70-11.00 [facility] Comment on above: Order Comment: Speci men Type: BLOOD SPECIMENOrdering Facility: [facility] Address: [place] [address] Performed By: #### 5 7021-8 ####LYONS LABORATORYCLIA [id number] [place] [address] [place] CNDSon 01-14-2023 CNDS [facility] THERAPY NTon 01-14-2023 THERAPY NT [facility] ALLIED HEALTHon 01-13-2023 ALLIED HEALTH [facility] CASE MANAGEMon 01-13-2023 CASE MANAGEM [facility] CBC W Auto Differential pane l (Bld)on 01-13-2023 Basophils (Bld) [#/Vol] 0.05 10*3/uL Normal <0.11 [facility] Comment on above: Order Comment: Speci men Type: BLOOD SPECIMENOrdering Facility: [facility] Address: [address] [place] [address] Performed By: #### 5 7021-8 ####LYN LABORATORYCLIA [id number] [place] [address] [place] Basophils/100 WBC (Bld) 0.3 % Normal [facility] Comment on above: Order Comment: Speci men Type: BLOOD SPECIMENOrdering Facility: [facility] Address: [address] [place] [address] Performed By: #### 5 7021-8 ####LYN LABORATORYCLIA [id number] [place] [address] [place] Differential cell count method Nom (Bld) Auto Normal [facility] Comment on above: Order Comment: Speci men Type: BLOOD SPECIMENOrdering Facility: [facility] Address: [address] [place] [address] Performed By: #### 5 7021-8 ####LYN LABORATORYCLIA [id number] [place] [address] [place] Eosinophils (Bld) [#/Vol] 0.05 10*3/uL Normal <0.46 [facility] Comment on above: Order Comment: Speci men Type: BLOOD SPECIMENOrdering Facility: [facility] Address: [address] [place] [address] Performed By: #### 5 7021-8 ####LYN LABORATORYCLIA [id number] [address] [place] Eosinophils/100 WBC (Bld) 0.3 % Normal [facility] Comment on above: Order Comment: Speci men Type: BLOOD SPECIMENOrdering Facility: [facility] Address: [address] [place] [address] Performed By: #### 5 7021-8 ####LYN LABORATORYCLIA [id number] [place] [address] [place] Erythrocyte distribution width (RBC) [Ratio] 14.6 % Normal 11.5-15.0 [facility] Comment on above: Order Comment: Speci men Type: BLOOD SPECIMENOrdering Facility: [facility] Address: [address] [place] [address] Performed By: #### 5 7021-8 ####LYN LABORATORYCLIA [id number] [place] [address] [place] Hematocrit (Bld) [Volume fraction] 38.4 % Low 39.0-51.0 [facility] Comment on above: Order Comment: Speci men Type: BLOOD SPECIMENOrdering Facility: [facility] Address: [address] [facility] [place] [address] Performed By: #### 5 7021-8 ####LYN LABORATORYCLIA [id number] [place] [address] [place] Hemoglobin (Bld) [Mass/Vol] 12.8 g/dL Low 13.0-17.0 [facility] Comment on above: Order Comment: Speci men Type: BLOOD SPECIMENOrdering Facility: [facility] Address: [address] [place] [address] Performed By: #### 5 7021-8 ####LYN LABORATORYCLIA [id number] [place] [address] [place] Immature granulocytes (Bld) [#/Vol] 0.13 10*3/uL High <0.10 [facility] Comment on above: Order Comment: Speci men Type: BLOOD SPECIMENOrdering Facility: [facility] Address: [address] [place] [address] Performed By: #### 5 7021-8 ####LYN LABORATORYCLIA [id number] [place] [address] [place] Immature granulocytes/100 WBC (Bld) 0.8 % Normal [facility] Comment on above: Order Comment: Speci men Type: BLOOD SPECIMENOrdering Facility: [facility] Address: [address] [place] [address] Performed By: #### 5 7021-8 ####LYN LABORATORYCLIA [id number] [place] [address] [place] Lymphocytes (Bld) [#/Vol] 1.22 10*3/uL Normal 1.00-4.00 [facility] Comment on above: Order Comment: Speci men Type: BLOOD SPECIMENOrdering Facility: [facility] Address: [address] [place] [address] Performed By: #### 5 7021-8 ####LYN LABORATORYCLIA [id number] [address] [place] [facility] Lymphocytes/100 WBC (Bld) 7.6 % Normal [facility] Comment on above: Order Comment: Speci men Type: BLOOD SPECIMENOrdering Facility: [facility] Address: [address] [place] [address] Performed By: #### 5 7021-8 ####LYN LABORATORYCLIA [id number] [address] [place] MCH (RBC) [Entitic mass] 30.3 pg Normal 26.0-34.0 [facility] Comment on above: Order Comment: Speci men Type: BLOOD SPECIMENOrdering Facility: [facility] Address: [address] [place] [address] Performed By: #### 5 7021-8 ####LYN LABORATORYCLIA [id number] [address] [place] MCHC (RBC) [Mass/Vol] 33.3 g/dL Normal 30.5-36.0 [facility] Comment on above: Order Comment: Speci men Type: BLOOD SPECIMENOrdering Facility: [facility] Address: [address] [place] [address] Performed By: #### 5 7021-8 ####LYN LABORATORYCLIA [id number] [address] [place] MCV (RBC) [Entitic vol] 90.8 fL Normal 80.0-100.0 [facility] Comment on above: Order Comment: Speci men Type: BLOOD SPECIMENOrdering Facility: [facility] Address: [address] [place] [address] Performed By: #### 5 7021-8 ####LYN LABORATORYCLIA [id number] [address] Monocytes (Bld) [#/Vol] 0.96 10*3/uL High <0.87 [facility] Comment on above: Order Comment: Speci men Type: BLOOD SPECIMENOrdering Facility: [facility] Address: [address] [place] [address] Performed By: #### 5 7021-8 ####LYN LABORATORYCLIA [id number] [place] [address] [place] Monocytes/100 WBC (Bld) 6.0 % Normal [facility] Comment on above: Order Comment: Speci men Type: BLOOD SPECIMENOrdering Facility: [facility] Address: [address] [place] [address] Performed By: #### 5 7021-8 ####LYN LABORATORYCLIA [id number] [place] [address] [place] Neutrophils (Bld) [#/Vol] 13.67 10*3/uL High 1.45-7.50 [facility] Comment on above: Order Comment: Speci men Type: BLOOD SPECIMENOrdering Facility: [facility] Address: [address] [place] [address] Performed By: #### 5 7021-8 ####LYN LABORATORYCLIA [id number] [place] [address] [place] Neutrophils/100 WBC (Bld) 85.0 % Normal [facility] Comment on above: Order Comment: Speci men Type: BLOOD SPECIMENOrdering Facility: [facility] Address: [address] [place] [address] Performed By: #### 5 7021-8 ####LYN LABORATORYCLIA [id number] [place] [address] [place] Nucleated RBC (Bld) [#/Vol] 10*3/uL Normal <0.01 [facility] Comment on above: Order Comment: Speci men Type: BLOOD SPECIMENOrdering Facility: [facility] Address: [address] [place] [address] Performed By: #### 5 7021-8 ####LYN LABORATORYCLIA [id number] [place] [address] [place] Nucleated RBC/100 WBC (Bld) [Ratio] 0.0 /100 WBC Normal [facility] Comment on above: Order Comment: Speci men Type: BLOOD SPECIMENOrdering Facility: [facility] Address: [address] [facility] [place] [address] Performed By: #### 5 7021-8 ####LYN LABORATORYCLIA [id number] [place] [address] [place] Platelet mean volume (Bld) [Entitic vol] 10.6 fL Normal 9.0-12.7 [facility] Comment on above: Order Comment: Speci men Type: BLOOD SPECIMENOrdering Facility: [facility] Address: [address] [facility] [place] [address] Performed By: #### 5 7021-8 ####LYN LABORATORYCLIA [id number] [place] [address] [place] Platelets (Bld) [#/Vol] 345 10*3/uL Normal 150-400 [facility] Comment on above: Order Comment: Speci men Type: BLOOD SPECIMENOrdering Facility: [facility] Address: [address] [place] [address] Performed By: #### 5 7021-8 ####LYONS LABORATORYCLIA [id number] [place] [address] [place] RBC (Bld) [#/Vol] 4.23 10*6/uL Normal 4.20-6.00 [facility] Comment on above: Order Comment: Speci men Type: BLOOD SPECIMENOrdering Facility: [facility] Address: [address] [place] [address] Performed By: #### 5 7021-8 ####LYN LABORATORYCLIA [id number] [place] [address] [place] WBC (Bld) [#/Vol] 16.08 10*3/uL High 3.70-11.00 [facility] Comment on above: Order Comment: Speci men Type: BLOOD SPECIMENOrdering Facility: [facility] Address: [address] [place] [address] Performed By: #### 5 7021-8 ####LYN LABORATORYCLIA [id number] [place] [address] [place] CHEST WO IVCONon 01-14-20 CT CHEST WO IVCON Normal [facility] Magnesium SerPl-mCncon 01-13 Magnesium [Mass/Vol] 3.1 mg/dL High 1.7-2.3 [facility] Comment on above: Order Comment: Speci men Type: BLOOD SPECIMENOrdering Facility: [facility] Address: [address] [place] [address] Performed By: #### 2 4362-6, ####LYONS LABORATORYCLIA [id number] [place] [address] [place] NUTRITIONon 01-13-2023 NUTRITION Normal [facility] Renal function 2000 panelon 01-13-2023 Albumin [Mass/Vol] 2.8 g/dL Low 3.9-4.9 [facility] Comment on above: Order Comment: Speci men Type: BLOOD SPECIMENOrdering Facility: [facility] Address: [address] [place] [address] Performed By: #### 2 4362-6, ####LYONS LABORATORYCLIA [id number] [place] [address] [place] Anion gap [Moles/Vol] 6 mmol/L Low 9-18 [facility] Comment on above: Order Comment: Speci men Type: BLOOD SPECIMENOrdering Facility: [facility] Address: [address] [place] [address] Performed By: #### 2 4362-6, ####LYONS LABORATORYCLIA [id number] [place] [address] [place] Calcium [Mass/Vol] 8.4 mg/dL Low 8.5-10.2 [facility] Comment on above: Order Comment: Speci men Type: BLOOD SPECIMENOrdering Facility: [facility] Address: [address] [place] [address] Performed By: #### 2 4362-6, ####LYN LABORATORYCLIA [id number] [place] [address] [place] Chloride [Moles/Vol] 95 mmol/L Low 97-105 [facility] Comment on above: Order Comment: Speci men Type: BLOOD SPECIMENOrdering Facility: [facility] Address: [address] [place] [address] Performed By: #### 2 4362-6, ####LYN LABORATORYCLIA [id number] [place] [address] [place] CO2 [Moles/Vol] 32 mmol/L High 22-30 [facility] Comment on above: Order Comment: Speci men Type: BLOOD SPECIMENOrdering Facility: [facility] Address: [address] [place] [address] Performed By: #### 2 43626, ####LYN LABORATORYCLIA [id number] [place] [address] [place] Creatinine [Mass/Vol] 0.88 mg/dL Normal 0.73-1.22 [facility] Comment on above: Order Comment: Speci men Type: BLOOD SPECIMENOrdering Facility: [facility] Address: [address] [place] [address] Performed By: #### 2 43603-25, ####LYN LABORATORYCLIA [id number] [address] [place] Creatinine and Glomerular filtration rate.predicted panel (S/P/Bld) 90 mL/min/1.73m??? Normal >=60 [facility] Comment on above: Order Comment: Speci men Type: BLOOD SPECIMENOrdering Facility: [facility] Address: [address] [place] [address] Result Comment: Daiana mated Glomerular Filtration Rate (eGFR) is calculated using the 2020 CKD-EPI creatinine equation. This equation utilizes serum creatinine, sex, and age as parameters. The creatinine assay has traceable calibration to isotope dilution-mass spectrometry. Refer to KDIGO guidelines for clinical interpretation. In patients with unstable renal function, e.g. those with acute kidney injury, the eGFR may not accurately reflect actual GFR. Performed By: #### 2 4362-6, ####LYN LABORATORYCLIA [id number] [address] [place] Glucose [Mass/Vol] 101 mg/dL High 74-99 [facility] Comment on above: Order Comment: Speci men Type: BLOOD SPECIMENOrdering Facility: [facility] Address: [address] [place] [address] Result Comment: The [place] [employer] (ADA) provides guidance for cutoff values for fasting glucose and random glucose. The ADA defines fasting as no caloric intake for at least 8 hours. Fasting plasma glucose results between 100 to 125 mg/dL indicate increased risk for diabetes (prediabetes).Fasting plasma glucose results greater than or equal to 126 mg/dL meet the criteria for diagnosis of diabetes. In the absence of unequivocal hyperglycemia, results should be confirmed by repeat testing. In a patient with classic symptoms of hyperglycemia or hyperglycemic crisis, random plasma glucose results greater than or equal to 200 mg/dL meet the criteria for diagnosis of diabetes.Reference: Standards of Medical Care in Diabetes 2016, [place] [employer]. Diabetes Care. 2016.39(Suppl 1). Performed By: #### 2 4362-6, ####LYN LABORATORYCLIA [id number] [place] [address] [place] Phosphate [Mass/Vol] 2.3 mg/dL Low 2.7-4.8 [facility] Comment on above: Order Comment: Greer regina Type: BLOOD SPECIMENOrdering Facility: [facility] Address: [address] [place] [address] Performed By: #### 2 4362-6, ####LYN LABORATORYCLIA [id number] [place] [address] [place] Potassium [Moles/Vol] 4.9 mmol/L Normal 3.7-5.1 [facility] Comment on above: Order Comment: Greer men Type: BLOOD SPECIMENOrdering Facility: [facility] Address: [address] [place] [address] Performed By: #### 2 4362-6, ####LYN LABORATORYCLIA [id number] [place] [address] [place] Sodium [Moles/Vol] 133 mmol/L Low 136-144 [facility] Comment on above: Order Comment: Greer regina Type: BLOOD SPECIMENOrdering Facility: [facility] Address: [address] [place] [address] Performed By: #### 2 4362-6, ####LYN LABORATORYCLIA [id number] [place] [address] [place] Urea nitrogen [Mass/Vol] 29 mg/dL High 11-10 [facility] Comment on above: Order Comment: Speci men Type: BLOOD SPECIMENOrdering Facility: [facility] Address: [address] [place] [address] Performed By: #### 2 4362-6, ####LYN LABORATORYCLIA [id number] [place] [address] [place] THERAPY NTon 01-13-2023 THERAPY NT Normal [facility] ALLIED HEALTHon 01-12-2023 ALLIED HEALTH Normal [facility] Bacteria Bld Culton 01-13-20 23 Bacteria identified Cx Nom (Bld) CULTURE, BLOOD: No growth 5 days Normal [facility] Comment on above: Performed By: #### 6 00-7 ####[facility] LABCLIA [id number] [address] [place] Bacteria identified Cx Nom (Bld) CULTURE, BLOOD: No growth 5 days Normal [facility] Comment on above: Performed By: #### 6 00-7 ####[facility] LABCLIA [id number] [place] [address] [place] CBC panel Auto (Bld)on 01-12 Erythrocyte distribution width (RBC) [Ratio] 14.3 % Normal 11.5-15.0 [facility] Comment on above: Order Comment: Speci men Type: BLOOD SPECIMENOrdering Facility: [facility] Address: [address] [place] [address] Performed By: #### 5 8410-2 ####LYN LABORATORYCLIA [id number] [place] [address] [place] Hematocrit (Bld) [Volume fraction] 36.8 % Low 39.0-51.0 [facility] Comment on above: Order Comment: Speci men Type: BLOOD SPECIMENOrdering Facility: [facility] Address: [address] [place] [address] Performed By: #### 5 8410-2 ####LYN LABORATORYCLIA [id number] [address] Hemoglobin (Bld) [Mass/Vol] 12.3 g/dL Low 13.0-17.0 [facility] Comment on above: Order Comment: Speci men Type: BLOOD SPECIMENOrdering Facility: [facility] Address: [address] [place] [address] Performed By: #### 5 8410-2 ####LYN LABORATORYCLIA [id number] [address] MCH (RBC) [Entitic mass] 29.9 pg Normal 26.0-34.0 [facility] Comment on above: Order Comment: Speci men Type: BLOOD SPECIMENOrdering Facility: [facility] Address: [address] [place] [address] Performed By: #### 5 8410-2 ####LYN LABORATORYCLIA [id number] [address] MCHC (RBC) [Mass/Vol] 33.4 g/dL Normal 30.5-36.0 [facility] Comment on above: Order Comment: Speci men Type: BLOOD SPECIMENOrdering Facility: [facility] Address: [address] [place] [address] Performed By: #### 5 8410-2 ####LYN LABORATORYCLIA [id number] [address] MCV (RBC) [Entitic vol] 89.3 fL Normal 80.0-100.0 [facility] Comment on above: Order Comment: Speci men Type: BLOOD SPECIMENOrdering Facility: [facility] Address: [address] [place] [address] Performed By: #### 5 8410-2 ####LYN LABORATORYCLIA [id number] [address] Nucleated RBC (Bld) [#/Vol] 10*3/uL Normal <0.01 [facility] Comment on above: Order Comment: Speci men Type: BLOOD SPECIMENOrdering Facility: [facility] Address: [address] [place], [place] [address] [id number] Performed By: #### 5 8410-2 ####LYN LABORATORYCLIA [id number] [place] [address] [place] Platelet mean volume (Bld) [Entitic vol] 10.1 fL Normal 9.0-12.7 [facility] Comment on above: Order Comment: Speci men Type: BLOOD SPECIMENOrdering Facility: [facility] Address: [place] [address] Performed By: #### 5 8410-2 ####LYN LABORATORYCLIA [id number] [place] [address] [place] Platelets (Bld) [#/Vol] 327 10*3/uL Normal 150-400 [facility] Comment on above: Order Comment: Speci men Type: BLOOD SPECIMENOrdering Facility: [facility] Address: [place] [address] Performed By: #### 5 8410-2 ####LYONS LABORATORYCLIA [id number] [place] [address] [place] RBC (Bld) [#/Vol] 4.12 10*6/uL Low 4.20-6.00 [facility] Comment on above: Order Comment: Speci men Type: BLOOD SPECIMENOrdering Facility: [facility] Address: [place] [address] Performed By: #### 5 8410-2 ####LYONS LABORATORYCLIA [id number] [place] [id number] [place] WBC (Bld) [#/Vol] 13.53 10*3/uL High 3.70-11.00 [facility] Comment on above: Order Comment: Speci men Type: BLOOD SPECIMENOrdering Facility: [facility] Address: [place] [address] Performed By: #### 5 8410-2 ####LYN LABORATORYCLIA [id number] [place] [address] [place] [facility]esium [facility] Magnesium [Mass/Vol] 2.5 mg/dL High 1.7-2.3 [facility] Comment on above: Order Comment: Speci men Type: BLOOD SPECIMENOrdering Facility: [facility] Address: [address] [place] [address] Performed By: #### 1 9123-9, 39152-0, 3084-1, 71982-1 ####LYONS LABORATORYCLIA [id number] [place] [address] [place] NURSING PROGon 01-12-2023 NURSING PROG Normal [facility] Osmolality Uron 01-12-2023 Osmolality (U) [Osmolality] 288 mosm/kg Normal 50-1200 [facility] Comment on above: Order Comment: Speci men Type: URINE SPECIMENOrdering Facility: [facility] Address: [address] [place] [address] Performed By: #### 2 695-5 ####[facility] LABCLIA [id number] [facility] [id number] [place] Procalcitonin SerPl-mCncon 1 03-14-2022 Procalcitonin [Mass/Vol] 0.12 ng/mL High <0.09 [facility] Comment on above: Order Comment: Speci men Type: BLOOD SPECIMENOrdering Facility: [facility] Address: [address] [place] [address] Result Comment: For a guided interpretation of test results, please visit the Change in Procalcitonin Calculator, [email or web address]. Performed By: #### 1 9123-9, 23823-2, 3084-, 64120-1 ####LYONS LABORATORYCLIA [id number] [place] [address] [place] Renal function 2000 panelon 01-12-2023 Albumin [Mass/Vol] 2.9 g/dL Low 3.9-4.9 [facility] Comment on above: Order Comment: Speci men Type: BLOOD SPECIMENOrdering Facility: [facility] Address: [address] [place] [address] Performed By: #### 1 9123-9, 91783-3, 3084-1, 14171-5 ####LYN LABORATORYCLIA [id number] [place] [address] [place] Anion gap [Moles/Vol] 7 mmol/L Low 9-18 [facility] Comment on above: Order Comment: Speci men Type: BLOOD SPECIMENOrdering Facility: [facility] Address: [address] [place] [address] Performed By: #### 1 9123-9, 23524-1, 3084-1, 81819-6 ####LYN LABORATORYCLIA [id number] [place] [address] [place] Calcium [Mass/Vol] 8.6 mg/dL Normal 8.5-10.2 [facility] Comment on above: Order Comment: Speci men Type: BLOOD SPECIMENOrdering Facility: [facility] Address: [address] [place] [address] Performed By: #### 1 9123-9, 40621-9, 3084-1, 72769-4 ####LYONS LABORATORYCLIA [id number] [place] [address] [place] Chloride [Moles/Vol] 94 mmol/L Low 97-105 [facility] Comment on above: Order Comment: Speci men Type: BLOOD SPECIMENOrdering Facility: [facility] Address: [address] [place] [address] Performed By: #### 1 9123-9, 51222-2, 3084-1, 15894-6 ####LYN LABORATORYCLIA [id number] [place] [address] [place] CO2 [Moles/Vol] 30 mmol/L Normal 22-30 [facility] Comment on above: Order Comment: Speci men Type: BLOOD SPECIMENOrdering Facility: [facility] Address: [address] [place] [address] Performed By: #### 1 9123-9, 62545-6, 3084-1, 47671-8 ####LYN LABORATORYCLIA [id number] [place] [address] [place] Creatinine [Mass/Vol] 0.86 mg/dL Normal 0.73-1.22 [facility] Comment on above: Order Comment: Speci men Type: BLOOD SPECIMENOrdering Facility: [facility] Address: [address] [place] [address] Performed By: #### 1 9123-9, 57635-1, 3084-1, 15581-5 ####LYONS LABORATORYCLIA [id number] [address] [place] Creatinine and Glomerular filtration rate.predicted panel (S/P/Bld) 91 mL/min/1.73m??? Normal >=60 [facility] Comment on above: Order Comment: Greer regina Type: BLOOD SPECIMENOrdering Facility: [facility] Address: [address] [place] [address] Result Comment: Daiana mated Glomerular Filtration Rate (eGFR) is calculated using the 2020 CKD-EPI creatinine equation. This equation utilizes serum creatinine, sex, and age as parameters. The creatinine assay has traceable calibration to isotope dilution-mass spectrometry. Refer to KDIGO guidelines for clinical interpretation. In patients with unstable renal function, e.g. those with acute kidney injury, the eGFR may not accurately reflect actual GFR. Performed By: #### 1 9123-9, 57553-1, 3084-1, 94169-4 ####LYONS LABORATORYCLIA [id number] [place] [id number] [place] Glucose [Mass/Vol] 144 mg/dL High 74-99 [facility] Comment on above: Order Comment: Greer tapia Type: BLOOD SPECIMENOrdering Facility: [facility] Address: [address] [place] [address] Result Comment: The [place] Diabetes [employer] (ADA) provides guidance for cutoff values for fasting glucose and random glucose. The ADA defines fasting as no caloric intake for at least 8 hours. Fasting plasma glucose results between 100 to 125 mg/dL indicate increased risk for diabetes (prediabetes).Fasting plasma glucose results greater than or equal to 126 mg/dL meet the criteria for diagnosis of diabetes. In the absence of unequivocal hyperglycemia, results should be confirmed by repeat testing. In a patient with classic symptoms of hyperglycemia or hyperglycemic crisis, random plasma glucose results greater than or equal to 200 mg/dL meet the criteria for diagnosis of diabetes.Reference: Standards of Medical Care in Diabetes 2016, [place] [employer]. Diabetes Care. 2016.39(Suppl 1). Performed By: #### 1 9123-9, 45069-7, 3084-1, 00535-5 ####LYN LABORATORYCLIA [id number] [place] [address] [place] Phosphate [Mass/Vol] 2.9 mg/dL Normal 2.7-4.8 [facility] Comment on above: Order Comment: Speci men Type: BLOOD SPECIMENOrdering Facility: [facility] Address: [address] [place] [address] Performed By: #### 1 9123-9, 67780-1, 3084-1, 65562-4 ####LYONS LABORATORYCLIA [id number] [place] [address] [place] Potassium [Moles/Vol] 4.4 mmol/L Normal 3.7-5.1 [facility] Comment on above: Order Comment: Speci men Type: BLOOD SPECIMENOrdering Facility: [facility] Address: [address] [place] [address] Performed By: #### 1 9123-9, 10914-5, 3084-1, 29998-5 ####LYONS LABORATORYCLIA [id number] [place] [address] [place] Sodium [Moles/Vol] 131 mmol/L Low 136-144 [facility] Comment on above: Order Comment: Speci men Type: BLOOD SPECIMENOrdering Facility: [facility] Address: [address] [place] [address] Performed By: #### 1 9123-9, 35190-7, 3084-1, 64702-5 ####LYONS LABORATORYCLIA [id number] [place] [address] [place] Urea nitrogen [Mass/Vol] 27 mg/dL High 9-24 [facility] Comment on above: Order Comment: Speci men Type: BLOOD SPECIMENOrdering Facility: [facility] Address: [address] [place] [address] Performed By: #### 1 9123-9, 13191-3, 3084-1, 76396-1 ####LYN LABORATORYCLIA [id number] [address] [place] Sodium ?Tm Ur-sCncon 023 Sodium Unsp time (U) [Moles/Vol] 24 mmol/L Normal 14-216 [facility] Comment on above: Order Comment: Speci men Type: URINE SPECIMENOrdering Facility: [facility] Address: [address] [place] [address] Performed By: #### 3 5678-2 ####[facility] LABCLIA [id number] [facility] [id number] [place] URINALYSIS, REFLEX MICROSCOP ICon 01-12-2023 Bilirubin Ql (U) Negative Normal Negative [facility] Comment on above: Order Comment: Speci men Type: URINE SPECIMENOrdering Facility: [facility] Address: [address] [place] [address] Performed By: #### L [id number] ####LYONS LABORATORYCLIA [id number] [address] Clarity (Unsp spec) Clear Normal Clear [facility] Comment on above: Order Comment: Speci men Type: URINE SPECIMENOrdering Facility: [facility] Address: [address] [place] [address] Performed By: #### L [id number] ####LYN LABORATORYCLIA [id number] [address] Color (U) Yellow Normal Yellow [facility] Comment on above: Order Comment: Speci men Type: URINE SPECIMENOrdering Facility: [facility] Address: [address] [place] [address] Performed By: #### L [id number] ####LYN LABORATORYCLIA [id number] [address] [place] Glucose Test strip (U) [Mass/Vol] Negative Normal Negative [facility] Comment on above: Order Comment: Speci men Type: URINE SPECIMENOrdering Facility: [facility] Address: [address] [place] [address] Performed By: #### L [id number] ####LYN LABORATORYCLIA [id number] [place] [address] [place] Hemoglobin Ql (U) Negative Normal Negative [facility] Comment on above: Order Comment: Speci men Type: URINE SPECIMENOrdering Facility: [facility] Address: [address] [place] [address] Performed By: #### L [id number] ####LYN LABORATORYCLIA [id number] [place] [address] [place] Ketones Ql (U) Negative Normal Negative [facility] Comment on above: Order Comment: Speci men Type: URINE SPECIMENOrdering Facility: [facility] Address: [address] [place] [address] Performed By: #### L [id number] ####LYN LABORATORYCLIA [id number] [address] [place] Leukocyte esterase Test strip Ql (U) Negative Normal Negative [facility] Comment on above: Order Comment: Speci men Type: URINE SPECIMENOrdering Facility: [facility] Address: [address] [place] [address] Performed By: #### L [id number] ####LYN LABORATORYCLIA [id number] [place] [address] [place] Nitrite Ql (U) Negative Normal Negative [facility] Comment on above: Order Comment: Speci men Type: URINE SPECIMENOrdering Facility: [facility] Address: [address] [place] [address] Performed By: #### L [id number] ####LYN LABORATORYCLIA [id number] [place] [address] [place] pH (U) 7.5 [pH] Normal 5.0-8.0 [facility] Comment on above: Order Comment: Speci men Type: URINE SPECIMENOrdering Facility: [facility] Address: [address] [place] [address] Performed By: #### L [id number] ####LYN LABORATORYCLIA [id number] [address] [place] Protein (U) [Mass/Vol] Negative Normal Negative [facility] Comment on above: Order Comment: Speci men Type: URINE SPECIMENOrdering Facility: [facility] Address: [address] [place] [address] Performed By: #### L [id number] ####LYONS LABORATORYCLIA [id number] [place] [address] [place] Specific gravity (U) [Rel density] 1.010 Normal 1.005-1.030 [facility] Comment on above: Order Comment: Speci men Type: URINE SPECIMENOrdering Facility: [facility] Address: [address] [place] [address] Performed By: #### L [id number] ####LYONS LABORATORYCLIA [id number] [place] [address] [place] Urobilinogen Ql (U) 0.2 EU/dL Normal 0.2-1.0 EU/dL [facility] Comment on above: Order Comment: Speci men Type: URINE SPECIMENOrdering Facility: [facility] Address: [address] [place] [address] Performed By: #### L [id number] ####LYONS LABORATORYCLIA [id number] [address] [place] [facility]rate [facility] Urate [Mass/Vol] 3.1 mg/dL Low 4.0-8.1 [facility] Comment on above: Order Comment: Speci men Type: BLOOD SPECIMENOrdering Facility: [facility] Address: [address] [place] [address] Performed By: #### 1 9123-9, 46692-4, 3084-1, 57376-8 ####LYONS LABORATORYCLIA [id number] [place] [address] [place] XR CHEST 2V FRONTAL/LATon XR CHEST 2V FRONTAL/LAT Normal M [facility] ALLIED HEALTHon 01-11-2023 ALLIED HEALTH Normal [facility] Basic metabolic 2000 panelon 01-11-2023 Anion gap [Moles/Vol] 4 mmol/L Low 9-18 [facility] Comment on above: Order Comment: Speci men Type: BLOOD SPECIMENOrdering Facility: [facility] Address: [address] [place] [address] Performed By: #### 2 4321-2, , 2776-02 ####LYN LABORATORYCLIA [id number] [place] [address] [place] Calcium [Mass/Vol] 8.3 mg/dL Low 8.5-10.2 [facility] Comment on above: Order Comment: Speci men Type: BLOOD SPECIMENOrdering Facility: [facility] Address: [address] [place] [address] Performed By: #### 2 4321-2, , 2776-02 ####LYN LABORATORYCLIA [id number] [place] [address] [place] Chloride [Moles/Vol] 95 mmol/L Low 97-105 [facility] Comment on above: Order Comment: Speci men Type: BLOOD SPECIMENOrdering Facility: [facility] Address: [address] [place] [address] Performed By: #### 2 1-2, , 2776-02 ####LYN LABORATORYCLIA [id number] [place] [address] [place] CO2 [Moles/Vol] 32 mmol/L High 22-30 [facility] Comment on above: Order Comment: Speci men Type: BLOOD SPECIMENOrdering Facility: [facility] Address: [address] [place] [address] Performed By: #### 2 4321-2, , 2776-02 ####LYN LABORATORYCLIA [id number] [place] [address] [place] Creatinine [Mass/Vol] 0.92 mg/dL Normal 0.73-1.22 [facility] Comment on above: Order Comment: Speci men Type: BLOOD SPECIMENOrdering Facility: [facility] Address: [address] [place] [address] Performed By: #### 2 4321-2, , 2776-02 ####LYN LABORATORYCLIA [id number] [address] Creatinine and Glomerular filtration rate.predicted panel (S/P/Bld) 87 mL/min/1.73m??? Normal >=60 [facility] Comment on above: Order Comment: Greer tapia Type: BLOOD SPECIMENOrdering Facility: [facility] Address: [address] [place] [address] Result Comment: Daiana mated Glomerular Filtration Rate (eGFR) is calculated using the 2020 CKD-EPI creatinine equation. This equation utilizes serum creatinine, sex, and age as parameters. The creatinine assay has traceable calibration to isotope dilution-mass spectrometry. Refer to KDIGO guidelines for clinical interpretation. In patients with unstable renal function, e.g. those with acute kidney injury, the eGFR may not accurately reflect actual GFR. Performed By: #### 2 4321-2, , 2776-02 ####LYONS LABORATORYCLIA [id number] [place] [address] [place] Glucose [Mass/Vol] 89 mg/dL Normal 74-99 [facility] Comment on above: Order Comment: Greer tapia Type: BLOOD SPECIMENOrdering Facility: [facility] Address: [address] [place] [address] Result Comment: The [place] Diabetes [employer] (ADA) provides guidance for cutoff values for fasting glucose and random glucose. The ADA defines fasting as no caloric intake for at least 8 hours. Fasting plasma glucose results between 100 to 125 mg/dL indicate increased risk for diabetes (prediabetes).Fasting plasma glucose results greater than or equal to 126 mg/dL meet the criteria for diagnosis of diabetes. In the absence of unequivocal hyperglycemia, results should be confirmed by repeat testing. In a patient with classic symptoms of hyperglycemia or hyperglycemic crisis, random plasma glucose results greater than or equal to 200 mg/dL meet the criteria for diagnosis of diabetes.Reference: Standards of Medical Care in Diabetes 2016, [place] [employer]. Diabetes Care. 2016.39(Suppl 1). Performed By: #### 2 4321-2, , 2776-02 ####LYONS LABORATORYCLIA [id number] [place] [address] [place] Potassium [Moles/Vol] 4.1 mmol/L Normal 3.7-5.1 [facility] Comment on above: Order Comment: Greer [facility] Type: BLOOD SPECIMENOrdering Facility: [facility] Address: [address] [place] [address] Performed By: #### 2 4321-2, , 2776-02 ####LYN LABORATORYCLIA [id number] [address] [place] [facility] Sodium [Moles/Vol] 131 mmol/L Low 136-144 [facility] Comment on above: Order Comment: Speci men Type: BLOOD SPECIMENOrdering Facility: [facility] Address: [address] [place] [address] Performed By: #### 2 4321-2, , 2776-02 ####LYN LABORATORYCLIA [id number] [address] [place] Urea nitrogen [Mass/Vol] 20 mg/dL Normal 9-24 [facility] Comment on above: Order Comment: Speci men Type: BLOOD SPECIMENOrdering Facility: [facility] Address: [address] [place] [address] Performed By: #### 2 4321-2, , 2776-02 ####LYN LABORATORYCLIA [id number] [address] [place] [facility] CBC panel Auto (Bld)on 01-11 Erythrocyte distribution width (RBC) [Ratio] 14.2 % Normal 11.5-15.0 [facility] Comment on above: Order Comment: Speci men Type: BLOOD SPECIMENOrdering Facility: [facility] Address: [address] [place] [address] Performed By: #### 5 8410-2 ####LYN LABORATORYCLIA [id number] [address] [place] Hematocrit (Bld) [Volume fraction] 34.9 % Low 39.0-51.0 [facility] Comment on above: Order Comment: Speci men Type: BLOOD SPECIMENOrdering Facility: [facility] Address: [address] [place] [address] Performed By: #### 5 8410-2 ####LYN LABORATORYCLIA [id number] [address] Hemoglobin (Bld) [Mass/Vol] 11.9 g/dL Low 13.0-17.0 [facility] Comment on above: Order Comment: Speci men Type: BLOOD SPECIMENOrdering Facility: [facility] Address: [address] [place] [address] Performed By: #### 5 8410-2 ####LNY LABORATORYCLIA [id number] [address] MCH (RBC) [Entitic mass] 30.4 pg Normal 26.0-34.0 [facility] Comment on above: Order Comment: Speci men Type: BLOOD SPECIMENOrdering Facility: [facility] Address: [address] [place] [address] Performed By: #### 5 8410-2 ####LYN LABORATORYCLIA [id number] [address] MCHC (RBC) [Mass/Vol] 34.1 g/dL Normal 30.5-36.0 [facility] Comment on above: Order Comment: Speci men Type: BLOOD SPECIMENOrdering Facility: [facility] Address: [address] [place] [address] Performed By: #### 5 8410-2 ####LYN LABORATORYCLIA [id number] [address] MCV (RBC) [Entitic vol] 89.3 fL Normal 80.0-100.0 [facility] Comment on above: Order Comment: Speci men Type: BLOOD SPECIMENOrdering Facility: [facility] Address: [address] [place] [address] Performed By: #### 5 8410-2 ####LYN LABORATORYCLIA [id number] [address] Nucleated RBC (Bld) [#/Vol] 10*3/uL Normal <0.01 [facility] Comment on above: Order Comment: Speci men Type: BLOOD SPECIMENOrdering Facility: [facility] Address: [address] [place] [address] Performed By: #### 5 8410-2 ####LYN LABORATORYCLIA [id number] [address] Platelet mean volume (Bld) [Entitic vol] 10.1 fL Normal 9.0-12.7 [facility] Comment on above: Order Comment: Speci men Type: BLOOD SPECIMENOrdering Facility: [facility] Address: [address] [facility] [address] Performed By: #### 5 8410-2 ####LYONS LABORATORYCLIA [id number] [address] [place] Platelets (Bld) [#/Vol] 292 10*3/uL Normal 150-400 [facility] Comment on above: Order Comment: Speci men Type: BLOOD SPECIMENOrdering Facility: [facility] Address: [address] [place] [address] Performed By: #### 5 8410-2 ####LYONS LABORATORYCLIA [id number] [place] [address] [place] RBC (Bld) [#/Vol] 3.91 10*6/uL Low 4.20-6.00 [facility] Comment on above: Order Comment: Speci men Type: BLOOD SPECIMENOrdering Facility: [facility] Address: [place] [address] Performed By: #### 5 8410-2 ####LYONS LABORATORYCLIA [id number] [place] [address] [place] WBC (Bld) [#/Vol] 12.42 10*3/uL High 3.70-11.00 [facility] Comment on above: Order Comment: Speci men Type: BLOOD SPECIMENOrdering Facility: [facility] Address: [place] [address] Performed By: #### 5 8410-2 ####LYONS LABORATORYCLIA [id number] [place] [address] [place] CT ABD/PEL WO IVCONon 2022 CT ABD/PEL WO IVCON Invalid Interpretation Code [facility] Magnesium SerPl-mCncon 01-11 Magnesium [Mass/Vol] 1.8 mg/dL Normal 1.7-2.3 [facility] Comment on above: Order Comment: Speci men Type: BLOOD SPECIMENOrdering Facility: [facility] Address: [address] [place] [address] Performed By: #### 2 4321-2, , 277- ####LYONS LABORATORYCLIA [id number] [place] [address] [place] Phosphate SerPl-mCncon 01-11 Phosphate [Mass/Vol] 2.9 mg/dL Normal 2.7-4.8 [facility] Comment on above: Order Comment: Speci men Type: BLOOD SPECIMENOrdering Facility: [facility] Address: [address] [place] [address] Performed By: #### 2 4321-2, , 2776-02 ####LYN LABORATORYCLIA [id number] [place] [address] [place] XR ABD 2V SUPINE W UPR/DECUB /CTLon 01-11-2023 XR ABD 2V SUPINE W UPR/DECUB/CTL Normal [facility] Basic metabolic 2000 panelon 01-10-2023 Anion gap [Moles/Vol] 6 mmol/L Low 9-18 [facility] Comment on above: Order Comment: Speci men Type: BLOOD SPECIMENOrdering Facility: [facility] Address: [place] [address] Performed By: #### 2 4321-2, ####LYN LABORATORYCLIA [id number] [place] [address] [place] Calcium [Mass/Vol] 7.9 mg/dL Low 8.5-10.2 [facility] Comment on above: Order Comment: Speci men Type: BLOOD SPECIMENOrdering Facility: [facility] Address: [address] [place] [address] Performed By: #### 2 4321-2, ####LYN LABORATORYCLIA [id number] [place] [address] [place] Chloride [Moles/Vol] 96 mmol/L Low 97-105 [facility] Comment on above: Order Comment: Speci men Type: BLOOD SPECIMENOrdering Facility: [facility] Address: [place] [address] Performed By: #### 2 4321-2, ####LYN LABORATORYCLIA [id number] [place] [address] [place] CO2 [Moles/Vol] 29 mmol/L Normal 22-30 [facility] Comment on above: Order Comment: Greer tapia Type: BLOOD SPECIMENOrdering Facility: [facility] Address: [address] [place] [address] Performed By: #### 2 4321-2, ####LYN LABORATORYCLIA [id number] [place] [id number] [place] Creatinine [Mass/Vol] 0.75 mg/dL Normal 0.73-1.22 [facility] Comment on above: Order Comment: Spectio men Type: BLOOD SPECIMENOrdering Facility: [facility] Address: [address] [place] [address] Performed By: #### 2 4321-2, ####LYN LABORATORYCLIA [id number] [address] Creatinine and Glomerular filtration rate.predicted panel (S/P/Bld) 95 mL/min/1.73m??? Normal >=60 [facility] Comment on above: Order Comment: Speci men Type: BLOOD SPECIMENOrdering Facility: [facility] Address: [address] [place] [address] Result Comment: Daiana mated Glomerular Filtration Rate (eGFR) is calculated using the 2020 CKD-EPI creatinine equation. This equation utilizes serum creatinine, sex, and age as parameters. The creatinine assay has traceable calibration to isotope dilution-mass spectrometry. Refer to KDIGO guidelines for clinical interpretation. In patients with unstable renal function, e.g. those with acute kidney injury, the eGFR may not accurately reflect actual GFR. Performed By: #### 2 4321-2, ####LYN LABORATORYCLIA [id number] [place] [id number] [place] Glucose [Mass/Vol] 118 mg/dL High 74-99 [facility] Comment on above: Order Comment: Greer tapia Type: BLOOD SPECIMENOrdering Facility: [facility] Address: [address] [place] [address] Result Comment: The [place] [employer] (ADA) provides guidance for cutoff values for fasting glucose and random glucose. The ADA defines fasting as no caloric intake for at least 8 hours. Fasting plasma glucose results between 100 to 125 mg/dL indicate increased risk for diabetes (prediabetes).Fasting plasma glucose results greater than or equal to 126 mg/dL meet the criteria for diagnosis of diabetes. In the absence of unequivocal hyperglycemia, results should be confirmed by repeat testing. In a patient with classic symptoms of hyperglycemia or hyperglycemic crisis, random plasma glucose results greater than or equal to 200 mg/dL meet the criteria for diagnosis of diabetes.Reference: Standards of Medical Care in Diabetes 2016, [place] [employer]. Diabetes Care. 2016.39(Suppl 1). Performed By: #### 2 4320-03, ####LYN LABORATORYCLIA [id number] [place] [address] [place] Potassium [Moles/Vol] 4.4 mmol/L Normal 3.7-5.1 [facility] Comment on above: Order Comment: Greer tapia Type: BLOOD SPECIMENOrdering Facility: [facility] Address: [address] [place] [address] Performed By: #### 2 4320-03, ####LYN LABORATORYCLIA [id number] [place] [address] [place] Sodium [Moles/Vol] 131 mmol/L Low 136-144 [facility] Comment on above: Order Comment: Greer tapia Type: BLOOD SPECIMENOrdering Facility: [facility] Address: [address] [place] [address] Performed By: #### 2 4320-03, ####LYN LABORATORYCLIA [id number] [place] [id number] [place] Urea nitrogen [Mass/Vol] 16 mg/dL Normal 9-24 [facility] Comment on above: Order Comment: Greer tapia Type: BLOOD SPECIMENOrdering Facility: [facility] Address: [address] [place] [address] Performed By: #### 2 4320-03, ####LYN LABORATORYCLIA [id number] [place] [address] [place] CASE MANAGEMon 01-10-2023 CASE MANAGEM Normal [facility] CASE MANAGEM Normal [facility] CBC panel Auto (Bld)on 01-10 Erythrocyte distribution width (RBC) [Ratio] 13.7 % Normal 11.5-15.0 [facility] Comment on above: Order Comment: Speci men Type: BLOOD SPECIMENOrdering Facility: [facility] Address: [address] [place] [address] Performed By: #### 5 8410-2 ####LYN LABORATORYCLIA [id number] [address] OF [facility] Hematocrit (Bld) [Volume fraction] 35.0 % Low 39.0-51.0 [facility] Comment on above: Order Comment: Speci men Type: BLOOD SPECIMENOrdering Facility: [facility] Address: [address] [place] [address] Performed By: #### 5 8410-2 ####LYN LABORATORYCLIA [id number] [address] [place] Hemoglobin (Bld) [Mass/Vol] 12.0 g/dL Low 13.0-17.0 [facility] Comment on above: Order Comment: Speci men Type: BLOOD SPECIMENOrdering Facility: [facility] Address: [address] [place] [address] Performed By: #### 5 8410-2 ####LYN LABORATORYCLIA [id number] [address] [place] MCH (RBC) [Entitic mass] 30.2 pg Normal 26.0-34.0 [facility] Comment on above: Order Comment: Speci men Type: BLOOD SPECIMENOrdering Facility: [facility] Address: [address] [place] [address] Performed By: #### 5 8410-2 ####LYN LABORATORYCLIA [id number] [address] MCHC (RBC) [Mass/Vol] 34.3 g/dL Normal 30.5-36.0 [facility] Comment on above: Order Comment: Speci men Type: BLOOD SPECIMENOrdering Facility: [facility] Address: [address] [place] [address] Performed By: #### 5 8410-2 ####LYN LABORATORYCLIA [id number] [place] [address] [place] MCV (RBC) [Entitic vol] 87.9 fL Normal 80.0-100.0 [facility] Comment on above: Order Comment: Speci men Type: BLOOD SPECIMENOrdering Facility: [facility] Address: [address] [place] [address] Performed By: #### 5 8410-2 ####LYN LABORATORYCLIA [id number] [place] [address] [place] Nucleated RBC (Bld) [#/Vol] 10*3/uL Normal <0.01 [facility] Comment on above: Order Comment: Speci men Type: BLOOD SPECIMENOrdering Facility: [facility] Address: [address] [place] [address] Performed By: #### 5 8410-2 ####LYN LABORATORYCLIA [id number] [place] [address] [place] Platelet mean volume (Bld) [Entitic vol] 10.2 fL Normal 9.0-12.7 [facility] Comment on above: Order Comment: Speci men Type: BLOOD SPECIMENOrdering Facility: [facility] Address: [address] [place] [address] Performed By: #### 5 8410-2 ####LYN LABORATORYCLIA [id number] [place] [address] [place] Platelets (Bld) [#/Vol] 291 10*3/uL Normal 150-400 [facility] Comment on above: Order Comment: Speci men Type: BLOOD SPECIMENOrdering Facility: [facility] Address: [address] [place] [address] Performed By: #### 5 8410-2 ####LYN LABORATORYCLIA [id number] [place] [address] [place] RBC (Bld) [#/Vol] 3.98 10*6/uL Low 4.20-6.00 [facility] Comment on above: Order Comment: Speci men Type: BLOOD SPECIMENOrdering Facility: [facility] Address: [address] [place] [address] [place] [address] Performed By: #### 5 8410-2 ####LYONS LABORATORYCLIA [id number] [place] [address] [place] WBC (Bld) [#/Vol] 13.55 10*3/uL High 3.70-11.00 [facility] Comment on above: Order Comment: Speci men Type: BLOOD SPECIMENOrdering Facility: [facility] Address: [address] [place] [address] Performed By: #### 5 8410-2 ####LYONS LABORATORYCLIA [id number] [place] [id number] [place] Magnesium SerPl-mCncon 01-10 Magnesium [Mass/Vol] 1.8 mg/dL Normal 1.7-2.3 [facility] Comment on above: Order Comment: Speci men Type: BLOOD SPECIMENOrdering Facility: [facility] Address: [address] [place] [address] Performed By: #### 2 4321-2, ####LYONS LABORATORYCLIA [id number] [place] [id number] [place] NUTRITIONon 01-10-2023 NUTRITION Normal [facility] Basic metabolic 2000 panelon 01-09-2023 Anion gap [Moles/Vol] 6 mmol/L Low 9-18 [facility] Comment on above: Order Comment: Speci men Type: BLOOD SPECIMENOrdering Facility: [facility] Address: [address] [place] [address] Performed By: #### 2 4321-2, ####LYONS LABORATORYCLIA [id number] [place] [id number] [place] Calcium [Mass/Vol] 8.1 mg/dL Low 8.5-10.2 [facility] Comment on above: Order Comment: Speci men Type: BLOOD SPECIMENOrdering Facility: [facility] Address: [address] [place] [address] Performed By: #### 2 4321-2, ####LYONS LABORATORYCLIA [id number] [place] [address] [place] Chloride [Moles/Vol] 96 mmol/L Low 97-105 [facility] Comment on above: Order Comment: Greer tapia Type: BLOOD SPECIMENOrdering Facility: [facility] Address: [address] [place] [address] Performed By: #### 2 4321-2, ####LYN LABORATORYCLIA [id number] [place] [address] [place] CO2 [Moles/Vol] 29 mmol/L Normal 22-30 [facility] Comment on above: Order Comment: Speci men Type: BLOOD SPECIMENOrdering Facility: [facility] Address: [address] [place] [address] Performed By: #### 2 4320-2, ####LYONS LABORATORYCLIA [id number] [address] STATES OF [facility] Creatinine [Mass/Vol] 0.79 mg/dL Normal 0.73-1.22 [facility] Comment on above: Order Comment: Greer tapia Type: BLOOD SPECIMENOrdering Facility: [facility] Address: [address] [place] [address] Performed By: #### 2 4320-2, ####LYN LABORATORYCLIA [id number] [address] Creatinine and Glomerular filtration rate.predicted panel (S/P/Bld) 93 mL/min/1.73m??? Normal >=60 [facility] Comment on above: Order Comment: Greer regina Type: BLOOD SPECIMENOrdering Facility: [facility] Address: [address] [place] [address] Result Comment: Daiana mated Glomerular Filtration Rate (eGFR) is calculated using the 2020 CKD-EPI creatinine equation. This equation utilizes serum creatinine, sex, and age as parameters. The creatinine assay has traceable calibration to isotope dilution-mass spectrometry. Refer to KDIGO guidelines for clinical interpretation. In patients with unstable renal function, e.g. those with acute kidney injury, the eGFR may not accurately reflect actual GFR. Performed By: #### 2 4321-2, ####LYN LABORATORYCLIA [id number] [place] [address] [place] Glucose [Mass/Vol] 98 mg/dL Normal 74-99 [facility] Comment on above: Order Comment: Greer tapia Type: BLOOD SPECIMENOrdering Facility: [facility] Address: [address] [place] [address] Result Comment: The [place] [employer] (ADA) provides guidance for cutoff values for fasting glucose and random glucose. The ADA defines fasting as no caloric intake for at least 8 hours. Fasting plasma glucose results between 100 to 125 mg/dL indicate increased risk for diabetes (prediabetes).Fasting plasma glucose results greater than or equal to 126 mg/dL meet the criteria for diagnosis of diabetes. In the absence of unequivocal hyperglycemia, results should be confirmed by repeat testing. In a patient with classic symptoms of hyperglycemia or hyperglycemic crisis, random plasma glucose results greater than or equal to 200 mg/dL meet the criteria for diagnosis of diabetes.Reference: Standards of Medical Care in Diabetes 2016, [place] [employer]. Diabetes Care. 2016.39(Suppl 1). Performed By: #### 2 4320-03, ####LYN LABORATORYCLIA [id number] [place] [address] [place] Potassium [Moles/Vol] 4.1 mmol/L Normal 3.7-5.1 [facility] Comment on above: Order Comment: Greer tapia Type: BLOOD SPECIMENOrdering Facility: [facility] Address: [address] [place] [address] Performed By: #### 2 4320-03, ####LYN LABORATORYCLIA [id number] [place] [address] [place] Sodium [Moles/Vol] 131 mmol/L Low 136-144 [facility] Comment on above: Order Comment: Greer tapia Type: BLOOD SPECIMENOrdering Facility: [facility] Address: [address] [place] [address] Performed By: #### 2 4320-03, ####LYN LABORATORYCLIA [id number] [place] [address] [place] Urea nitrogen [Mass/Vol] 11 mg/dL Normal 9-24 [facility] Comment on above: Order Comment: Greer men Type: BLOOD SPECIMENOrdering Facility: [facility] Address: [address] [place] [address] Performed By: #### 2 4321-2, 68313-4 ####LYN LABORATORYCLIA [id number] [address] CBC panel Auto (Bld)on 01-09 Erythrocyte distribution width (RBC) [Ratio] 14.0 % Normal 11.5-15.0 [facility] Comment on above: Order Comment: Speci men Type: BLOOD SPECIMENOrdering Facility: [facility] Address: [address] [place] [address] Performed By: #### 5 8410-2 ####LYN LABORATORYCLIA [id number] [address] Hematocrit (Bld) [Volume fraction] 38.1 % Low 39.0-51.0 [facility] Comment on above: Order Comment: Speci men Type: BLOOD SPECIMENOrdering Facility: [facility] Address: [address] [place] [address] Performed By: #### 5 8410-2 ####LYN LABORATORYCLIA [id number] [address] Hemoglobin (Bld) [Mass/Vol] 12.6 g/dL Low 13.0-17.0 [facility] Comment on above: Order Comment: Speci men Type: BLOOD SPECIMENOrdering Facility: [facility] Address: [address] [place] [address] Performed By: #### 5 8410-2 ####LYN LABORATORYCLIA [id number] [address] MCH (RBC) [Entitic mass] 29.9 pg Normal 26.0-34.0 [facility] Comment on above: Order Comment: Speci men Type: BLOOD SPECIMENOrdering Facility: [facility] Address: [address] [place] [address] Performed By: #### 5 8410-2 ####LYN LABORATORYCLIA [id number] [address] MCHC (RBC) [Mass/Vol] 33.1 g/dL Normal 30.5-36.0 [facility] Comment on above: Order Comment: Speci men Type: BLOOD SPECIMENOrdering Facility: [facility] Address: [address] [place] [address] Performed By: #### 5 8410-2 ####LYN LABORATORYCLIA [id number] [place] [address] [place] MCV (RBC) [Entitic vol] 90.3 fL Normal 80.0-100.0 [facility] Comment on above: Order Comment: Speci men Type: BLOOD SPECIMENOrdering Facility: [facility] Address: [address] [place] [address] Performed By: #### 5 8410-2 ####LYN LABORATORYCLIA [id number] [address] [place] Nucleated RBC (Bld) [#/Vol] 10*3/uL Normal <0.01 [facility] Comment on above: Order Comment: Speci men Type: BLOOD SPECIMENOrdering Facility: [facility] Address: [address] [place] [address] Performed By: #### 5 8410-2 ####LYN LABORATORYCLIA [id number] [place] [address] [place] Platelet mean volume (Bld) [Entitic vol] 10.5 fL Normal 9.0-12.7 [facility] Comment on above: Order Comment: Speci men Type: BLOOD SPECIMENOrdering Facility: [facility] Address: [address] [place] [address] Performed By: #### 5 8410-2 ####LYN LABORATORYCLIA [id number] [place] [address] [place] Platelets (Bld) [#/Vol] 303 10*3/uL Normal 150-400 [facility] Comment on above: Order Comment: Speci men Type: BLOOD SPECIMENOrdering Facility: [facility] Address: [address] [place] [address] Performed By: #### 5 8410-2 ####LYN LABORATORYCLIA [id number] [place] [address] [place] RBC (Bld) [#/Vol] 4.22 10*6/uL Normal 4.20-6.00 [facility] Comment on above: Order Comment: Speci men Type: BLOOD SPECIMENOrdering Facility: [facility] Address: [address] [place] [address] Performed By: #### 5 8410-2 ####LYN LABORATORYCLIA [id number] [address] OF [facility] WBC (Bld) [#/Vol] 9.42 10*3/uL Normal 3.70-11.00 [facility] Comment on above: Order Comment: Speci men Type: BLOOD SPECIMENOrdering Facility: [facility] Address: [place] [address] Performed By: #### 5 8410-2 ####LYN LABORATORYCLIA [id number] [address] [place] Magnesium SerPl-mCncon 01-09 Magnesium [Mass/Vol] 1.9 mg/dL Normal 1.7-2.3 [facility] Comment on above: Order Comment: Speci men Type: BLOOD SPECIMENOrdering Facility: [facility] Address: [place] [address] Performed By: #### 2 4321-2, ####LYN LABORATORYCLIA [id number] [address] [place] Basic metabolic 2000 panelon 01-08-2023 Anion gap [Moles/Vol] 7 mmol/L Low 9-18 [facility] Comment on above: Order Comment: Speci men Type: BLOOD SPECIMENOrdering Facility: [facility] Address: [place] [address] Performed By: #### 2 4321-2, ####LYN LABORATORYCLIA [id number] [place] [address] [place] Calcium [Mass/Vol] 7.8 mg/dL Low 8.5-10.2 [facility] Comment on above: Order Comment: Speci men Type: BLOOD SPECIMENOrdering Facility: [facility] Address: [place] [address] Performed By: #### 2 4321-2, ####LYN LABORATORYCLIA [id number] [place] [address] [place] Chloride [Moles/Vol] 100 mmol/L Normal 97-105 [facility] Comment on above: Order Comment: Speci men Type: BLOOD SPECIMENOrdering Facility: [facility] Address: [address] [place] [address] Performed By: #### 2 4321-2, ####LYN LABORATORYCLIA [id number] [place] [address] [place] CO2 [Moles/Vol] 26 mmol/L Normal 22-30 [facility] Comment on above: Order Comment: Greer tapia Type: BLOOD SPECIMENOrdering Facility: [facility] Address: [address] [place] [address] Performed By: #### 2 4321-2, ####LYN LABORATORYCLIA [id number] [address] STATES OF [facility] Creatinine [Mass/Vol] 0.75 mg/dL Normal 0.73-1.22 [facility] Comment on above: Order Comment: Maedlinei regina Type: BLOOD SPECIMENOrdering Facility: [facility] Address: [address] [place] [address] Performed By: #### 2 4321-2, ####LYN LABORATORYCLIA [id number] [address] Creatinine and Glomerular filtration rate.predicted panel (S/P/Bld) 95 mL/min/1.73m??? Normal >=60 [facility] Comment on above: Order Comment: Speci men Type: BLOOD SPECIMENOrdering Facility: [facility] Address: [address] [place] [address] Result Comment: Daiana mated Glomerular Filtration Rate (eGFR) is calculated using the 2020 CKD-EPI creatinine equation. This equation utilizes serum creatinine, sex, and age as parameters. The creatinine assay has traceable calibration to isotope dilution-mass spectrometry. Refer to KDIGO guidelines for clinical interpretation. In patients with unstable renal function, e.g. those with acute kidney injury, the eGFR may not accurately reflect actual GFR. Performed By: #### 2 43202-18, ####LYN LABORATORYCLIA [id number] [place] [id number] [place] Glucose [Mass/Vol] 88 mg/dL Normal 74-99 [facility] Comment on above: Order Comment: Greer tapia Type: BLOOD SPECIMENOrdering Facility: [facility] Address: [address] [place] [address] Result Comment: The [place] Diabetes [employer] (ADA) provides guidance for cutoff values for fasting glucose and random glucose. The ADA defines fasting as no caloric intake for at least 8 hours. Fasting plasma glucose results between 100 to 125 mg/dL indicate increased risk for diabetes (prediabetes).Fasting plasma glucose results greater than or equal to 126 mg/dL meet the criteria for diagnosis of diabetes. In the absence of unequivocal hyperglycemia, results should be confirmed by repeat testing. In a patient with classic symptoms of hyperglycemia or hyperglycemic crisis, random plasma glucose results greater than or equal to 200 mg/dL meet the criteria for diagnosis of diabetes.Reference: Standards of Medical Care in Diabetes 2016, [place] [employer]. Diabetes Care. 2016.39(Suppl 1). Performed By: #### 2 4320-03, ####LYN LABORATORYCLIA [id number] [place] [address] [place] Potassium [Moles/Vol] 4.0 mmol/L Normal 3.7-5.1 [facility] Comment on above: Order Comment: Greer tapia Type: BLOOD SPECIMENOrdering Facility: [facility] Address: [address] [place] [address] Performed By: #### 2 4320-03, ####LYN LABORATORYCLIA [id number] [place] [id number] [place] Sodium [Moles/Vol] 133 mmol/L Low 136-144 [facility] Comment on above: Order Comment: Greer tapia Type: BLOOD SPECIMENOrdering Facility: [facility] Address: [address] [place] [address] Performed By: #### 2 4320-03, ####LYN LABORATORYCLIA [id number] [address] [place] Urea nitrogen [Mass/Vol] 10 mg/dL Normal 9-24 [facility] Comment on above: Order Comment: Speci men Type: BLOOD SPECIMENOrdering Facility: [facility] Address: [address] [place] [address] Performed By: #### 2 4321-2, 58495-3 ####LYONS LABORATORYCLIA [id number] [address] [place] CASE MANAGEMon 01-08-2023 CASE MANAGEM Normal [facility] CBC panel Auto (Bld)on 01-08 Erythrocyte distribution width (RBC) [Ratio] 13.7 % Normal 11.5-15.0 [facility] Comment on above: Order Comment: Speci men Type: BLOOD SPECIMENOrdering Facility: [facility] Address: [address] [place] [address] Performed By: #### 5 8410-2 ####LYN LABORATORYCLIA [id number] [address] [place] Hematocrit (Bld) [Volume fraction] 34.7 % Low 39.0-51.0 [facility] Comment on above: Order Comment: Speci men Type: BLOOD SPECIMENOrdering Facility: [facility] Address: [address] [place] [address] Performed By: #### 5 8410-2 ####LYN LABORATORYCLIA [id number] [address] [place] Hemoglobin (Bld) [Mass/Vol] 11.9 g/dL Low 13.0-17.0 [facility] Comment on above: Order Comment: Speci men Type: BLOOD SPECIMENOrdering Facility: [facility] Address: [address] [place] [address] Performed By: #### 5 8410-2 ####LYN LABORATORYCLIA [id number] [address] [place] MCH (RBC) [Entitic mass] 30.2 pg Normal 26.0-34.0 [facility] Comment on above: Order Comment: Speci men Type: BLOOD SPECIMENOrdering Facility: [facility] Address: [address] [place], [place] [address] [address] Performed By: #### 5 8410-2 ####LYN LABORATORYCLIA [id number] [place] [address] [place] MCHC (RBC) [Mass/Vol] 34.3 g/dL Normal 30.5-36.0 [facility] Comment on above: Order Comment: Speci men Type: BLOOD SPECIMENOrdering Facility: [facility] Address: [place] [address] Performed By: #### 5 8410-2 ####LYN LABORATORYCLIA [id number] [place] [address] [place] MCV (RBC) [Entitic vol] 88.1 fL Normal 80.0-100.0 [facility] Comment on above: Order Comment: Speci men Type: BLOOD SPECIMENOrdering Facility: [facility] Address: [place] [address] Performed By: #### 5 8410-2 ####LYN LABORATORYCLIA [id number] [place] [address] [place] Nucleated RBC (Bld) [#/Vol] 10*3/uL Normal <0.01 [facility] Comment on above: Order Comment: Speci men Type: BLOOD SPECIMENOrdering Facility: [facility] Address: [place] [address] Performed By: #### 5 8410-2 ####LYN LABORATORYCLIA [id number] [place] [address] [place] Platelet mean volume (Bld) [Entitic vol] 10.5 fL Normal 9.0-12.7 [facility] Comment on above: Order Comment: Speci men Type: BLOOD SPECIMENOrdering Facility: [facility] Address: [place] [address] Performed By: #### 5 8410-2 ####LYN LABORATORYCLIA [id number] [place] [address] [place] Platelets (Bld) [#/Vol] 308 10*3/uL Normal 150-400 [facility] Comment on above: Order Comment: Speci men Type: BLOOD SPECIMENOrdering Facility: [facility] Address: [address] [place] [address] Performed By: #### 5 8410-2 ####LYN LABORATORYCLIA [id number] [place] [address] [place] RBC (Bld) [#/Vol] 3.94 10*6/uL Low 4.20-6.00 [facility] Comment on above: Order Comment: Speci men Type: BLOOD SPECIMENOrdering Facility: [facility] Address: [address] [place] [address] Performed By: #### 5 8410-2 ####LYN LABORATORYCLIA [id number] [address] [place] WBC (Bld) [#/Vol] 11.22 10*3/uL High 3.70-11.00 [facility] Comment on above: Order Comment: Speci men Type: BLOOD SPECIMENOrdering Facility: [facility] Address: [address] [place] [address] Performed By: #### 5 8410-2 ####LYN LABORATORYCLIA [id number] [address] OF [facility] CONSULT PROGon 01-08-2023 CONSULT PROG [facility] CONSULT PROG [facility] Magnesium SerPl-mCncon 01-08 Magnesium [Mass/Vol] 1.8 mg/dL Normal 1.7-2.3 [facility] Comment on above: Order Comment: Speci men Type: BLOOD SPECIMENOrdering Facility: [facility] Address: [place] [address] Performed By: #### 1 9123-9 ####LYN LABORATORYCLIA [id number] [address] Magnesium [Mass/Vol] 1.9 mg/dL Normal 1.7-2.3 [facility] Comment on above: Order Comment: Speci men Type: BLOOD SPECIMENOrdering Facility: [facility] Address: [address] [place] [address] Performed By: #### 2 4321-2, 61893-3 ####LYN LABORATORYCLIA [id number] [place] [id number] [place] THERAPY NTon 01-08-2023 THERAPY NT Normal [facility] THERAPY NT Normal [facility] THERAPY NT Normal [facility] ANES POSTPROC EVALon 023 ANES POSTPROC EVAL Normal [facility] ANES PRE-OPon 01-07-2023 ANES PRE-OP Normal [facility] Basic metabolic 2000 panelon 01-07-2023 Anion gap [Moles/Vol] 6 mmol/L Low 9-18 [facility] Comment on above: Order Comment: Speci men Type: BLOOD SPECIMENOrdering Facility: [facility] Address: [address] [place] [address] Performed By: #### 2 4321-2, ####LYN LABORATORYCLIA [id number] [place] [address] [place] [place] Calcium [Mass/Vol] 7.6 mg/dL Low 8.5-10.2 [facility] Comment on above: Order Comment: Speci men Type: BLOOD SPECIMENOrdering Facility: [facility] Address: [address] [place] [address] Performed By: #### 2 4321-2, ####LYN LABORATORYCLIA [id number] [place] [address] [place] Chloride [Moles/Vol] 97 mmol/L Normal 97-105 [facility] Comment on above: Order Comment: Speci men Type: BLOOD SPECIMENOrdering Facility: [facility] Address: [address] [place] [address] Performed By: #### 2 4321-2, ####LYN LABORATORYCLIA [id number] [place] [id number] [place] CO2 [Moles/Vol] 27 mmol/L Normal 22-30 [facility] Comment on above: Order Comment: Speci men Type: BLOOD SPECIMENOrdering Facility: [facility] Address: [address] [place] [id number] Performed By: #### 2 4321-2, ####LYN LABORATORYCLIA [id number] [place] [id number] [place] [facility] Creatinine [Mass/Vol] 0.77 mg/dL Normal 0.73-1.22 [facility] Comment on above: Order Comment: Greer tapia Type: BLOOD SPECIMENOrdering Facility: [facility] Address: [place] [address] Performed By: #### 2 4321-2, ####LYN LABORATORYCLIA [id number] [place] [id number] [place] [facility] Creatinine and Glomerular filtration rate.predicted panel (S/P/Bld) 94 mL/min/1.73m??? Normal >=60 [facility] Comment on above: Order Comment: Greer tapia Type: BLOOD SPECIMENOrdering Facility: [facility] Address: [address] [place] [address] Result Comment: Daiana mated Glomerular Filtration Rate (eGFR) is calculated using the 2020 CKD-EPI creatinine equation. This equation utilizes serum creatinine, sex, and age as parameters. The creatinine assay has traceable calibration to isotope dilution-mass spectrometry. Refer to KDIGO guidelines for clinical interpretation. In patients with unstable renal function, e.g. those with acute kidney injury, the eGFR may not accurately reflect actual GFR. Performed By: #### 2 4321-2, ####LYN LABORATORYCLIA [id number] [place] [id number] [place] Glucose [Mass/Vol] 99 mg/dL Normal 74-99 [facility] Comment on above: Order Comment: Greer tapia Type: BLOOD SPECIMENOrdering Facility: [facility] Address: [address] [place] [address] Result Comment: The [place] [employer] (ADA) provides guidance for cutoff values for fasting glucose and random glucose. The ADA defines fasting as no caloric intake for at least 8 hours. Fasting plasma glucose results between 100 to 125 mg/dL indicate increased risk for diabetes (prediabetes).Fasting plasma glucose results greater than or equal to 126 mg/dL meet the criteria for diagnosis of diabetes. In the absence of unequivocal hyperglycemia, results should be confirmed by repeat testing. In a patient with classic symptoms of hyperglycemia or hyperglycemic crisis, random plasma glucose results greater than or equal to 200 mg/dL meet the criteria for diagnosis of diabetes.Reference: Standards of Medical Care in Diabetes 2016, [place] [employer]. Diabetes Care. 2016.39(Suppl 1). Performed By: #### 2 4321-2, ####LYN LABORATORYCLIA [id number] [address] STATES [facility] Potassium [Moles/Vol] 3.7 mmol/L Normal 3.7-5.1 [facility] Comment on above: Order Comment: Speci men Type: BLOOD SPECIMENOrdering Facility: [facility] Address: [address] [place] [address] Performed By: #### 2 4321-2, ####LYN LABORATORYCLIA [id number] [address] STATES [facility] Sodium [Moles/Vol] 130 mmol/L Low 136-144 [facility] Comment on above: Order Comment: Speci men Type: BLOOD SPECIMENOrdering Facility: [facility] Address: [address] [place] [address] Performed By: #### 2 4321-2, ####LYN LABORATORYCLIA [id number] [address] STATES [facility] Urea nitrogen [Mass/Vol] 11 mg/dL Normal 9-24 [facility] Comment on above: Order Comment: Speci men Type: BLOOD SPECIMENOrdering Facility: [facility] Address: [address] [place] [address] Performed By: #### 2 4321-2, ####LYONS LABORATORYCLIA [id number] [address] [place] CASE MANAGEMon 01-07-2023 CASE MANAGEM Normal [facility] CBC panel Auto (Bld)on 01-07 Erythrocyte distribution width (RBC) [Ratio] 13.8 % Normal 11.5-15.0 [facility] Comment on above: Order Comment: Speci men Type: BLOOD SPECIMENOrdering Facility: [facility] Address: [address] [place] [address] Performed By: #### 5 8410-2 ####LYONS LABORATORYCLIA [id number] [address] [place] Hematocrit (Bld) [Volume fraction] 34.5 % Low 39.0-51.0 [facility] Comment on above: Order Comment: Speci men Type: BLOOD SPECIMENOrdering Facility: [facility] Address: [address] [place] [address] Performed By: #### 5 8410-2 ####LYN LABORATORYCLIA [id number] [address] Hemoglobin (Bld) [Mass/Vol] 11.8 g/dL Low 13.0-17.0 [facility] Comment on above: Order Comment: Speci men Type: BLOOD SPECIMENOrdering Facility: [facility] Address: [address] [place] [address] Performed By: #### 5 8410-2 ####LYN LABORATORYCLIA [id number] [address] MCH (RBC) [Entitic mass] 30.3 pg Normal 26.0-34.0 [facility] Comment on above: Order Comment: Speci men Type: BLOOD SPECIMENOrdering Facility: [facility] Address: [address] [place] [address] Performed By: #### 5 8410-2 ####LYN LABORATORYCLIA [id number] [address] MCHC (RBC) [Mass/Vol] 34.2 g/dL Normal 30.5-36.0 [facility] Comment on above: Order Comment: Speci men Type: BLOOD SPECIMENOrdering Facility: [facility] Address: [address] [place] [address] Performed By: #### 5 8410-2 ####LYN LABORATORYCLIA [id number] [address] MCV (RBC) [Entitic vol] 88.5 fL Normal 80.0-100.0 [facility] Comment on above: Order Comment: Speci men Type: BLOOD SPECIMENOrdering Facility: [facility] Address: [address] [place] [address] Performed By: #### 5 8410-2 ####LYN LABORATORYCLIA [id number] [place] [address] [place] Nucleated RBC (Bld) [#/Vol] 10*3/uL Normal <0.01 [facility] Comment on above: Order Comment: Speci men Type: BLOOD SPECIMENOrdering Facility: [facility] Address: [address] [place] [address] Performed By: #### 5 8410-2 ####LYN LABORATORYCLIA [id number] [place] [address] [place] Platelet mean volume (Bld) [Entitic vol] 10.0 fL Normal 9.0-12.7 [facility] Comment on above: Order Comment: Speci men Type: BLOOD SPECIMENOrdering Facility: [facility] Address: [address] [place] [address] Performed By: #### 5 8410-2 ####LYN LABORATORYCLIA [id number] [place] [address] [place] Platelets (Bld) [#/Vol] 295 10*3/uL Normal 150-400 [facility] Comment on above: Order Comment: Speci men Type: BLOOD SPECIMENOrdering Facility: [facility] Address: [address] [place] [address] Performed By: #### 5 8410-2 ####LYN LABORATORYCLIA [id number] [place] [address] [place] RBC (Bld) [#/Vol] 3.90 10*6/uL Low 4.20-6.00 [facility] Comment on above: Order Comment: Speci men Type: BLOOD SPECIMENOrdering Facility: [facility] Address: [address] [place] [address] Performed By: #### 5 8410-2 ####LYN LABORATORYCLIA [id number] [place] [address] [place] [facility] [place] WBC (Bld) [#/Vol] 10.25 10*3/uL Normal 3.70-11.00 [facility] Comment on above: Order Comment: Speci men Type: BLOOD SPECIMENOrdering Facility: [facility] Address: [address] [place] [address] Performed By: #### 5 8410-2 ####LYONS LABORATORYCLIA [id number] [place] [address] [place] Magnesium SerPl-mCncon 01-07 Magnesium [Mass/Vol] 1.6 mg/dL Low 1.7-2.3 [facility] Comment on above: Order Comment: Speci men Type: BLOOD SPECIMENOrdering Facility: [facility] Address: [place] [address] Performed By: #### 2 4321-2, ####LYONS LABORATORYCLIA [id number] [place] [address] [place] NUTRITIONon 01-07-2023 NUTRITION Normal [facility] Upper GI endoscopyon 023 Upper GI endoscopy Normal [facility] Basic metabolic 2000 panelon 01-06-2023 Anion gap [Moles/Vol] 7 mmol/L Low 9-18 [facility] Comment on above: Order Comment: Speci men Type: BLOOD SPECIMENOrdering Facility: [facility] Address: [place] [address] Performed By: #### 2 432-2, ####LYONS LABORATORYCLIA [id number] [place] [id number] [place] Calcium [Mass/Vol] 8.1 mg/dL Low 8.5-10.2 [facility] Comment on above: Order Comment: Speci men Type: BLOOD SPECIMENOrdering Facility: [facility] Address: [place] [address] Performed By: #### 2 4321-2, ####LYONS LABORATORYCLIA [id number] [place] [address] [place] Chloride [Moles/Vol] 99 mmol/L Normal 97-105 [facility] Comment on above: Order Comment: Speci men Type: BLOOD SPECIMENOrdering Facility: [facility] Address: [place] [address] Performed By: #### 2 4321-2, ####LYN LABORATORYCLIA [id number] [place] [address] [place] CO2 [Moles/Vol] 29 mmol/L Normal 22-30 [facility] Comment on above: Order Comment: Greer tapia Type: BLOOD SPECIMENOrdering Facility: [facility] Address: [address] [place] [address] Performed By: #### 2 432-2, ####LYN LABORATORYCLIA [id number] [place] [address] [place] Creatinine [Mass/Vol] 0.93 mg/dL Normal 0.73-1.22 [facility] Comment on above: Order Comment: Greer men Type: BLOOD SPECIMENOrdering Facility: [facility] Address: [address] [place] [address] Performed By: #### 2 432-2, ####YLN LABORATORYCLIA [id number] [place] [id number] [place] [facility] Creatinine and Glomerular filtration rate.predicted panel (S/P/Bld) 86 mL/min/1.73m??? Normal >=60 [facility] Comment on above: Order Comment: Greer tapia Type: BLOOD SPECIMENOrdering Facility: [facility] Address: [address] [place] [address] Result Comment: Daiana mated Glomerular Filtration Rate (eGFR) is calculated using the 2020 CKD-EPI creatinine equation. This equation utilizes serum creatinine, sex, and age as parameters. The creatinine assay has traceable calibration to isotope dilution-mass spectrometry. Refer to KDIGO guidelines for clinical interpretation. In patients with unstable renal function, e.g. those with acute kidney injury, the eGFR may not accurately reflect actual GFR. Performed By: #### 2 4321-2, ####LYN LABORATORYCLIA [id number] [place] [address] [place] Glucose [Mass/Vol] 79 mg/dL Normal 74-99 [facility] Comment on above: Order Comment: Greer regian Type: BLOOD SPECIMENOrdering Facility: [facility] Address: [address] [place] [address] Result Comment: The [place] Diabetes [employer] (ADA) provides guidance for cutoff values for fasting glucose and random glucose. The ADA defines fasting as no caloric intake for at least 8 hours. Fasting plasma glucose results between 100 to 125 mg/dL indicate increased risk for diabetes (prediabetes).Fasting plasma glucose results greater than or equal to 126 mg/dL meet the criteria for diagnosis of diabetes. In the absence of unequivocal hyperglycemia, results should be confirmed by repeat testing. In a patient with classic symptoms of hyperglycemia or hyperglycemic crisis, random plasma glucose results greater than or equal to 200 mg/dL meet the criteria for diagnosis of diabetes.Reference: Standards of Medical Care in Diabetes 2016, [place] [employer]. Diabetes Care. 2016.39(Suppl 1). Performed By: #### 2 4320-03, ####LYONS LABORATORYCLIA [id number] [place] [address] [place] Potassium [Moles/Vol] 4.3 mmol/L Normal 3.7-5.1 [facility] Comment on above: Order Comment: Greer tapia Type: BLOOD SPECIMENOrdering Facility: [facility] Address: [address] [place] [address] Performed By: #### 2 4320-03, ####LYONS LABORATORYCLIA [id number] [place] [address] [place] Sodium [Moles/Vol] 135 mmol/L Low 136-144 [facility] Comment on above: Order Comment: Greer tapia Type: BLOOD SPECIMENOrdering Facility: [facility] Address: [address] [place] [address] Performed By: #### 2 4320-03, ####LYONS LABORATORYCLIA [id number] [place] [address] [place] Urea nitrogen [Mass/Vol] 12 mg/dL Normal 9-24 [facility] Comment on above: Order Comment: Greer tapia Type: BLOOD SPECIMENOrdering Facility: [facility] Address: [address] [place] [address] Performed By: #### 2 4320-03, ####LYN LABORATORYCLIA [id number] [place] [id number] [place] CASE MANAGEMon 01-06-2023 CASE MANAGEM Normal [facility] CBC panel Auto (Bld)on 01-06 Erythrocyte distribution width (RBC) [Ratio] 13.6 % Normal 11.5-15.0 [facility] Comment on above: Order Comment: Speci men Type: BLOOD SPECIMENOrdering Facility: [facility] Address: [address] [place] [address] Performed By: #### 5 8410-2 ####LYN LABORATORYCLIA [id number] [address] Hematocrit (Bld) [Volume fraction] 38.2 % Low 39.0-51.0 [facility] Comment on above: Order Comment: Speci men Type: BLOOD SPECIMENOrdering Facility: [facility] Address: [address] [place] [address] Performed By: #### 5 8410-2 ####LYN LABORATORYCLIA [id number] [address] Hemoglobin (Bld) [Mass/Vol] 13.1 g/dL Normal 13.0-17.0 [facility] Comment on above: Order Comment: Speci men Type: BLOOD SPECIMENOrdering Facility: [facility] Address: [address] [place] [address] Performed By: #### 5 8410-2 ####LYN LABORATORYCLIA [id number] [address] MCH (RBC) [Entitic mass] 29.9 pg Normal 26.0-34.0 [facility] Comment on above: Order Comment: Speci men Type: BLOOD SPECIMENOrdering Facility: [facility] Address: [address] [place] [address] Performed By: #### 5 8410-2 ####LYN LABORATORYCLIA [id number] [address] MCHC (RBC) [Mass/Vol] 34.3 g/dL Normal 30.5-36.0 [facility] Comment on above: Order Comment: Speci men Type: BLOOD SPECIMENOrdering Facility: [facility] Address: [address] [place] [address] Performed By: #### 5 8410-2 ####LYN LABORATORYCLIA [id number] [address] MCV (RBC) [Entitic vol] 87.2 fL Normal 80.0-100.0 [facility] Comment on above: Order Comment: Speci men Type: BLOOD SPECIMENOrdering Facility: [facility] Address: [address] [place] [address] Performed By: #### 5 8410-2 ####LYN LABORATORYCLIA [id number] [address] [place] Nucleated RBC (Bld) [#/Vol] 10*3/uL Normal <0.01 [facility] Comment on above: Order Comment: Speci men Type: BLOOD SPECIMENOrdering Facility: [facility] Address: [address] [place] [address] Performed By: #### 5 8410-2 ####LYN LABORATORYCLIA [id number] [address] [place] Platelet mean volume (Bld) [Entitic vol] 10.4 fL Normal 9.0-12.7 [facility] Comment on above: Order Comment: Speci men Type: BLOOD SPECIMENOrdering Facility: [facility] Address: [address] [place] [address] Performed By: #### 5 8410-2 ####LYN LABORATORYCLIA [id number] [address] [place] Platelets (Bld) [#/Vol] 262 10*3/uL Normal 150-400 [facility] Comment on above: Order Comment: Speci men Type: BLOOD SPECIMENOrdering Facility: [facility] Address: [address] [place] [address] Performed By: #### 5 8410-2 ####LYN LABORATORYCLIA [id number] [place] [address] [place] RBC (Bld) [#/Vol] 4.38 10*6/uL Normal 4.20-6.00 [facility] Comment on above: Order Comment: Speci men Type: BLOOD SPECIMENOrdering Facility: [facility] Address: [address] [place] [address] Performed By: #### 5 8410-2 ####LYN LABORATORYCLIA [id number] [place] [address] [place] WBC (Bld) [#/Vol] 12.27 10*3/uL High 3.70-11.00 [facility] Comment on above: Order Comment: Speci men Type: BLOOD SPECIMENOrdering Facility: [facility] Address: [place] [address] Performed By: #### 5 8410-2 ####LYN LABORATORYCLIA [id number] [address] [place] CONSULTon 01-06-2023 CONSULT Normal [facility] CONSULT PROGon 01-06-2023 CONSULT PROG Normal [facility] Magnesium SerPl-mCncon 01-06 Magnesium [Mass/Vol] 1.8 mg/dL Normal 1.7-2.3 [facility] Comment on above: Order Comment: Speci men Type: BLOOD SPECIMENOrdering Facility: [facility] Address: [place] [address] Performed By: #### 2 4321-2, 50788-4 ####LYONS LABORATORYCLIA [id number] [address] [place] NUTRITIONon 01-06-2023 NUTRITION Normal [facility] THERAPY NTon 01-06-2023 THERAPY NT Normal [facility] THERAPY NT Normal [facility] THERAPY NT Normal [facility] THERAPY NT Normal [facility] ALLIED HEALTHon 01-05-2023 ALLIED HEALTH Normal [facility] CBC panel Auto (Bld)on 01-05 Erythrocyte distribution width (RBC) [Ratio] 13.5 % Normal 11.5-15.0 [facility] Comment on above: Order Comment: Speci men Type: BLOOD SPECIMENOrdering Facility: [facility] Address: [place] [address] Performed By: #### 5 8410-2 ####LYN LABORATORYCLIA [id number] [address] [place] Hematocrit (Bld) [Volume fraction] 41.8 % Normal 39.0-51.0 [facility] Comment on above: Order Comment: Speci men Type: BLOOD SPECIMENOrdering Facility: [facility] Address: [address] [place] [address] Performed By: #### 5 8410-2 ####LYN LABORATORYCLIA [id number] [address] [place] Hemoglobin (Bld) [Mass/Vol] 14.5 g/dL Normal 13.0-17.0 [facility] Comment on above: Order Comment: Speci men Type: BLOOD SPECIMENOrdering Facility: [facility] Address: [address] [place] [address] Performed By: #### 5 8410-2 ####LYN LABORATORYCLIA [id number] [address] [place] MCH (RBC) [Entitic mass] 30.5 pg Normal 26.0-34.0 [facility] Comment on above: Order Comment: Speci men Type: BLOOD SPECIMENOrdering Facility: [facility] Address: [address] [place] [address] Performed By: #### 5 8410-2 ####LYN LABORATORYCLIA [id number] [address] MCHC (RBC) [Mass/Vol] 34.7 g/dL Normal 30.5-36.0 [facility] Comment on above: Order Comment: Speci men Type: BLOOD SPECIMENOrdering Facility: [facility] Address: [address] [place] [address] Performed By: #### 5 8410-2 ####LYN LABORATORYCLIA [id number] [address] MCV (RBC) [Entitic vol] 88.0 fL Normal 80.0-100.0 [facility] Comment on above: Order Comment: Speci men Type: BLOOD SPECIMENOrdering Facility: [facility] Address: [address] [place] [address] Performed By: #### 5 8410-2 ####LYN LABORATORYCLIA [id number] [address] Nucleated RBC (Bld) [#/Vol] 10*3/uL Normal <0.01 [facility] Comment on above: Order Comment: Speci men Type: BLOOD SPECIMENOrdering Facility: [facility] Address: [address] [place] [address] Performed By: #### 5 8410-2 ####LYN LABORATORYCLIA [id number] [place] [address] [place] Platelet mean volume (Bld) [Entitic vol] 10.0 fL Normal 9.0-12.7 [facility] Comment on above: Order Comment: Speci men Type: BLOOD SPECIMENOrdering Facility: [facility] Address: [place] [address] Performed By: #### 5 8410-2 ####LYN LABORATORYCLIA [id number] [place] [address] [place] Platelets (Bld) [#/Vol] 397 10*3/uL Normal 150-400 [facility] Comment on above: Order Comment: Speci men Type: BLOOD SPECIMENOrdering Facility: [facility] Address: [address] [place] [address] Performed By: #### 5 8410-2 ####LYONS LABORATORYCLIA [id number] [place] [address] [place] RBC (Bld) [#/Vol] 4.75 10*6/uL Normal 4.20-6.00 [facility] Comment on above: Order Comment: Speci men Type: BLOOD SPECIMENOrdering Facility: [facility] Address: [address] [place] [address] Performed By: #### 5 8410-2 ####LYONS LABORATORYCLIA [id number] [place] [address] [place] WBC (Bld) [#/Vol] 13.05 10*3/uL High 3.70-11.00 [facility] Comment on above: Order Comment: Speci men Type: BLOOD SPECIMENOrdering Facility: [facility] Address: [place] [address] Performed By: #### 5 8410-2 ####LYN LABORATORYCLIA [id number] [address] [place] CONSULT PROGon 01-05-2023 CONSULT PROG Normal [facility] Comprehensive metabolic 2000 panelon 01-05-2023 Albumin [Mass/Vol] 3.0 g/dL Low 3.9-4.9 [facility] Comment on above: Order Comment: Speci men Type: BLOOD SPECIMENOrdering Facility: [facility] Address: [place] [address] Performed By: #### 2 432-8, ####LYN LABORATORYCLIA [id number] [place] [address] [place] ALP [Catalytic activity/Vol] 74 U/L Normal 38-113 [facility] Comment on above: Order Comment: Speci men Type: BLOOD SPECIMENOrdering Facility: [facility] Address: [address] [place] [address] Performed By: #### 2 8, ####LYN LABORATORYCLIA [id number] [address] [place] ALT [Catalytic activity/Vol] U/L Low 10-54 [facility] Comment on above: Order Comment: Speci men Type: BLOOD SPECIMENOrdering Facility: [facility] Address: [address] [place] [address] Performed By: #### 2 8, ####LYN LABORATORYCLIA [id number] [address] STATES [facility] Anion gap [Moles/Vol] 15 mmol/L Normal 9-18 [facility] Comment on above: Order Comment: Speci men Type: BLOOD SPECIMENOrdering Facility: [facility] Address: [address] [place] [address] Performed By: #### 2 8, ####LYN LABORATORYCLIA [id number] [address] [place] AST [Catalytic activity/Vol] 11 U/L Low 14-40 [facility] Comment on above: Order Comment: Speci men Type: BLOOD SPECIMENOrdering Facility: [facility] Address: [address] [place] [address] Performed By: #### 2 432-8, ####LYN LABORATORYCLIA [id number] [place] [address] [place] Bilirubin [Mass/Vol] 0.7 mg/dL Normal 0.2-1.3 [facility] Comment on above: Order Comment: Speci men Type: BLOOD SPECIMENOrdering Facility: [facility] Address: [address] [place] [address] Performed By: #### 2 4328, ####LYN LABORATORYCLIA [id number] [place] [address] [place] Calcium [Mass/Vol] 8.2 mg/dL Low 8.5-10.2 [facility] Comment on above: Order Comment: Speci men Type: BLOOD SPECIMENOrdering Facility: [facility] Address: [place] [address] Performed By: #### 2 8, ####LYN LABORATORYCLIA [id number] [place] [address] [place] Chloride [Moles/Vol] 99 mmol/L Normal 97-105 [facility] Comment on above: Order Comment: Speci men Type: BLOOD SPECIMENOrdering Facility: [facility] Address: [place] [address] Performed By: #### 2 8, ####LYN LABORATORYCLIA [id number] [place] [address] [place] CO2 [Moles/Vol] 20 mmol/L Low 22-30 [facility] Comment on above: Order Comment: Speci men Type: BLOOD SPECIMENOrdering Facility: [facility] Address: [place] [address] Performed By: #### 2 4328, ####LYN LABORATORYCLIA [id number] [place] [address] [place] Creatinine [Mass/Vol] 0.80 mg/dL Normal 0.73-1.22 [facility] Comment on above: Order Comment: Speci men Type: BLOOD SPECIMENOrdering Facility: [facility] Address: [place] [address] Performed By: #### 2 4322-09, ####LYN LABORATORYCLIA [id number] [place] [address] [place] Creatinine and Glomerular filtration rate.predicted panel (S/P/Bld) 93 mL/min/1.73m??? Normal >=60 [facility] Comment on above: Order Comment: Greer tapia Type: BLOOD SPECIMENOrdering Facility: [facility] Address: [address] [place] [address] Result Comment: Daiana mated Glomerular Filtration Rate (eGFR) is calculated using the 2020 CKD-EPI creatinine equation. This equation utilizes serum creatinine, sex, and age as parameters. The creatinine assay has traceable calibration to isotope dilution-mass spectrometry. Refer to KDIGO guidelines for clinical interpretation. In patients with unstable renal function, e.g. those with acute kidney injury, the eGFR may not accurately reflect actual GFR. Performed By: #### 2 4323-8, ####LYONS LABORATORYCLIA [id number] [place] [id number] [place] Glucose [Mass/Vol] 101 mg/dL High 74-99 [facility] Comment on above: Order Comment: Greer tapia Type: BLOOD SPECIMENOrdering Facility: [facility] Address: [address] [place] [address] Result Comment: The [place] [employer] (ADA) provides guidance for cutoff values for fasting glucose and random glucose. The ADA defines fasting as no caloric intake for at least 8 hours. Fasting plasma glucose results between 100 to 125 mg/dL indicate increased risk for diabetes (prediabetes).Fasting plasma glucose results greater than or equal to 126 mg/dL meet the criteria for diagnosis of diabetes. In the absence of unequivocal hyperglycemia, results should be confirmed by repeat testing. In a patient with classic symptoms of hyperglycemia or hyperglycemic crisis, random plasma glucose results greater than or equal to 200 mg/dL meet the criteria for diagnosis of diabetes.Reference: Standards of Medical Care in Diabetes 2016, [place] [employer]. Diabetes Care. 2016.39(Suppl 1). Performed By: #### 2 4323-8, ####LYN LABORATORYCLIA [id number] [place] [address] [place] Potassium [Moles/Vol] 4.7 mmol/L Normal 3.7-5.1 [facility] Comment on above: Order Comment: Speci men Type: BLOOD SPECIMENOrdering Facility: [facility] Address: [address] [place] [address] Performed By: #### 2 4323-8, ####LYN LABORATORYCLIA [id number] [address] Protein [Mass/Vol] 6.2 g/dL Low 6.3-8.0 [facility] Comment on above: Order Comment: Speci men Type: BLOOD SPECIMENOrdering Facility: [facility] Address: [address] [place] [address] Performed By: #### 2 4323-8, ####LYN LABORATORYCLIA [id number] [place] [address] [place] Sodium [Moles/Vol] 134 mmol/L Low 136-144 [facility] Comment on above: Order Comment: Speci men Type: BLOOD SPECIMENOrdering Facility: [facility] Address: [place] [address] Performed By: #### 2 4323-8, ####LYN LABORATORYCLIA [id number] [address] [place] Urea nitrogen [Mass/Vol] 11 mg/dL Normal 9-24 [facility] Comment on above: Order Comment: Speci men Type: BLOOD SPECIMENOrdering Facility: [facility] Address: [place] [address] Performed By: #### 2 4323-8, ####LYN LABORATORYCLIA [id number] [place] [address] [place] ECG COMPLETEon 01-05-2023 ECG COMPLETE Normal [facility] MEDICAL EMERon 01-05-2023 MEDICAL AIDAN [facility] Magnesium SerPl-mCncon 01-05 Magnesium [Mass/Vol] 2.3 mg/dL Normal 1.7-2.3 [facility] Comment on above: Order Comment: Speci men Type: BLOOD SPECIMENOrdering Facility: [facility] Address: [address] [place] [address] Performed By: #### 1 9123-9 ####LYN LABORATORYCLIA [id number] [place] [address] [place] Magnesium [Mass/Vol] 1.5 mg/dL Low 1.7-2.3 [facility] Comment on above: Order Comment: Speci men Type: BLOOD SPECIMENOrdering Facility: [facility] Address: [address] [place] [address] Performed By: #### 2 4323-8, 56727-3 ####LYN LABORATORYCLIA [id number] [place] [address] [place] NURSING PROGon 01-05-2023 NURSING PROG [facility] THERAPY NTon 01-05-2023 THERAPY NT [facility] XR CHEST 1V FRONTAL PORTon 1 03-07-2022 XR CHEST 1V FRONTAL PORT [facility] CBC panel Auto (Bld)on 01-04 Erythrocyte distribution width (RBC) [Ratio] 13.3 % Normal 11.5-15.0 [facility] Comment on above: Order Comment: Speci men Type: BLOOD SPECIMENOrdering Facility: [facility] Address: [address] [place] [address] Performed By: #### 5 8410-2 ####LYN LABORATORYCLIA [id number] [address] [place] Hematocrit (Bld) [Volume fraction] 37.9 % Low 39.0-51.0 [facility] Comment on above: Order Comment: Speci men Type: BLOOD SPECIMENOrdering Facility: [facility] Address: [address] [place] [address] Performed By: #### 5 8410-2 ####LYN LABORATORYCLIA [id number] [place] [address] [place] Hemoglobin (Bld) [Mass/Vol] 12.6 g/dL Low 13.0-17.0 [facility] Comment on above: Order Comment: Speci men Type: BLOOD SPECIMENOrdering Facility: [facility] Address: [address] [place] [address] Performed By: #### 5 8410-2 ####LYN LABORATORYCLIA [id number] [address] MCH (RBC) [Entitic mass] 29.5 pg Normal 26.0-34.0 [facility] Comment on above: Order Comment: Speci men Type: BLOOD SPECIMENOrdering Facility: [facility] Address: [address] [place] [address] Performed By: #### 5 8410-2 ####LYN LABORATORYCLIA [id number] [address] [place] MCHC (RBC) [Mass/Vol] 33.2 g/dL Normal 30.5-36.0 [facility] Comment on above: Order Comment: Speci men Type: BLOOD SPECIMENOrdering Facility: [facility] Address: [address] [place] [address] Performed By: #### 5 8410-2 ####LYN LABORATORYCLIA [id number] [address] MCV (RBC) [Entitic vol] 88.8 fL Normal 80.0-100.0 [facility] Comment on above: Order Comment: Speci men Type: BLOOD SPECIMENOrdering Facility: [facility] Address: [address] [place] [address] Performed By: #### 5 8410-2 ####LYN LABORATORYCLIA [id number] [address] Nucleated RBC (Bld) [#/Vol] 10*3/uL Normal <0.01 [facility] Comment on above: Order Comment: Speci men Type: BLOOD SPECIMENOrdering Facility: [facility] Address: [address] [place] [address] Performed By: #### 5 8410-2 ####LYN LABORATORYCLIA [id number] [address] [place] Platelet mean volume (Bld) [Entitic vol] 10.5 fL Normal 9.0-12.7 [facility] Comment on above: Order Comment: Speci men Type: BLOOD SPECIMENOrdering Facility: [facility] Address: [address] [place] [address] Performed By: #### 5 8410-2 ####LYN LABORATORYCLIA [id number] [place] [address] [place] [facility] [place] Platelets (Bld) [#/Vol] 297 10*3/uL Normal 150-400 [facility] Comment on above: Order Comment: Speci men Type: BLOOD SPECIMENOrdering Facility: [facility] Address: [address] [place] [address] Performed By: #### 5 8410-2 ####LYN LABORATORYCLIA [id number] [place] [address] [place] RBC (Bld) [#/Vol] 4.27 10*6/uL Normal 4.20-6.00 [facility] Comment on above: Order Comment: Speci men Type: BLOOD SPECIMENOrdering Facility: [facility] Address: [address] [place] [address] Performed By: #### 5 8410-2 ####LYN LABORATORYCLIA [id number] [place] [address] [place] WBC (Bld) [#/Vol] 8.02 10*3/uL Normal 3.70-11.00 [facility] Comment on above: Order Comment: Speci men Type: BLOOD SPECIMENOrdering Facility: [facility] Address: [address] [place] [address] Performed By: #### 5 8410-2 ####LYN LABORATORYCLIA [id number] [address] OF [facility] CONSULT PROGon 01-04-2023 CONSULT PROG Normal [facility] Comprehensive metabolic 2000 panelon 01-04-2023 Albumin [Mass/Vol] 2.6 g/dL Low 3.9-4.9 [facility] Comment on above: Order Comment: Speci men Type: BLOOD SPECIMENOrdering Facility: [facility] Address: [address] [place] [address] Performed By: #### 1 9123-9, 73845-8 ####LYN LABORATORYCLIA [id number] [address] [place] ALP [Catalytic activity/Vol] 66 U/L Normal 38-113 [facility] Comment on above: Order Comment: Speci men Type: BLOOD SPECIMENOrdering Facility: [facility] Address: [address] [place] [address] Performed By: #### 1 239, ####LYN LABORATORYCLIA [id number] [place] [address] [place] ALT [Catalytic activity/Vol] U/L Low 10-54 [facility] Comment on above: Order Comment: Speci men Type: BLOOD SPECIMENOrdering Facility: [facility] Address: [address] [place] [address] Performed By: #### 1 239, ####LYN LABORATORYCLIA [id number] [place] [address] [place] Anion gap [Moles/Vol] 9 mmol/L Normal 9-18 [facility] Comment on above: Order Comment: Speci men Type: BLOOD SPECIMENOrdering Facility: [facility] Address: [address] [place] [address] Performed By: #### 1 9, ####LYN LABORATORYCLIA [id number] [place] [address] [place] AST [Catalytic activity/Vol] 13 U/L Low 14-40 [facility] Comment on above: Order Comment: Speci men Type: BLOOD SPECIMENOrdering Facility: [facility] Address: [address] [place] [address] Performed By: #### 1 239, ####LYN LABORATORYCLIA [id number] [place] [address] [place] Bilirubin [Mass/Vol] 0.5 mg/dL Normal 0.2-1.3 [facility] Comment on above: Order Comment: Speci men Type: BLOOD SPECIMENOrdering Facility: [facility] Address: [address] [place] [address] Performed By: #### 1 239, ####LYN LABORATORYCLIA [id number] [place] [address] [place] Calcium [Mass/Vol] 7.8 mg/dL Low 8.5-10.2 [facility] Comment on above: Order Comment: Speci men Type: BLOOD SPECIMENOrdering Facility: [facility] Address: [address] [place] [address] Performed By: #### 1 9123-9, ####LYN LABORATORYCLIA [id number] [place] [address] [place] Chloride [Moles/Vol] 100 mmol/L Normal 97-105 [facility] Comment on above: Order Comment: Speci men Type: BLOOD SPECIMENOrdering Facility: [facility] Address: [address] [place] [address] Performed By: #### 1 9123-9, ####LYN LABORATORYCLIA [id number] [place] [address] [place] CO2 [Moles/Vol] 27 mmol/L Normal 22-30 [facility] Comment on above: Order Comment: Speci men Type: BLOOD SPECIMENOrdering Facility: [facility] Address: [address] [place] [address] Performed By: #### 1 9123-9, ####LYN LABORATORYCLIA [id number] [place] [address] [place] Creatinine [Mass/Vol] 0.81 mg/dL Normal 0.73-1.22 [facility] Comment on above: Order Comment: Speci men Type: BLOOD SPECIMENOrdering Facility: [facility] Address: [address] [place] [address] Performed By: #### 1 9123-9, ####LYN LABORATORYCLIA [id number] [place] [address] [place] Creatinine and Glomerular filtration rate.predicted panel (S/P/Bld) 93 mL/min/1.73m??? Normal >=60 [facility] Comment on above: Order Comment: Speci men Type: BLOOD SPECIMENOrdering Facility: [facility] Address: [address] [place] [address] Result Comment: Daiana mated Glomerular Filtration Rate (eGFR) is calculated using the 2020 CKD-EPI creatinine equation. This equation utilizes serum creatinine, sex, and age as parameters. The creatinine assay has traceable calibration to isotope dilution-mass spectrometry. Refer to KDIGO guidelines for clinical interpretation. In patients with unstable renal function, e.g. those with acute kidney injury, the eGFR may not accurately reflect actual GFR. Performed By: #### 1 9123-9, ####LYN LABORATORYCLIA [id number] [place] [address] [place] Glucose [Mass/Vol] 88 mg/dL Normal 74-99 [facility] Comment on above: Order Comment: Greer tapia Type: BLOOD SPECIMENOrdering Facility: [facility] Address: [address] [place] [address] Result Comment: The [place] [employer] (ADA) provides guidance for cutoff values for fasting glucose and random glucose. The ADA defines fasting as no caloric intake for at least 8 hours. Fasting plasma glucose results between 100 to 125 mg/dL indicate increased risk for diabetes (prediabetes).Fasting plasma glucose results greater than or equal to 126 mg/dL meet the criteria for diagnosis of diabetes. In the absence of unequivocal hyperglycemia, results should be confirmed by repeat testing. In a patient with classic symptoms of hyperglycemia or hyperglycemic crisis, random plasma glucose results greater than or equal to 200 mg/dL meet the criteria for diagnosis of diabetes.Reference: Standards of Medical Care in Diabetes 2016, [place] [employer]. Diabetes Care. 2016.39(Suppl 1). Performed By: #### 1 9123-9, ####LYN LABORATORYCLIA [id number] [place] [id number] [place] Potassium [Moles/Vol] 3.5 mmol/L Low 3.7-5.1 [facility] Comment on above: Order Comment: Greer tapia Type: BLOOD SPECIMENOrdering Facility: [facility] Address: [address] [place] [address] Performed By: #### 1 9123-9, ####LYN LABORATORYCLIA [id number] [place] [address] [place] Protein [Mass/Vol] 5.2 g/dL Low 6.3-8.0 [facility] Comment on above: Order Comment: Greer tapia Type: BLOOD SPECIMENOrdering Facility: [facility] Address: [address] [place] [address] Performed By: #### 1 9123-9, 64187-7 ####LYN LABORATORYCLIA [id number] [place] [address] [place] Sodium [Moles/Vol] 136 mmol/L Normal 136-144 [facility] Comment on above: Order Comment: Speci men Type: BLOOD SPECIMENOrdering Facility: [facility] Address: [address] [place] [address] Performed By: #### 1 9123-9, 90808-9 ####LYN LABORATORYCLIA [id number] [place] [address] [place] Urea nitrogen [Mass/Vol] 9 mg/dL Normal 9-24 [facility] Comment on above: Order Comment: Speci men Type: BLOOD SPECIMENOrdering Facility: [facility] Address: [address] [place] [address] Performed By: #### 1 9123-9, ####LYN LABORATORYCLIA [id number] [place] [address] [place] Magnesium SerPl-mCncon 01-04 Magnesium [Mass/Vol] 1.7 mg/dL Normal 1.7-2.3 [facility] Comment on above: Order Comment: Speci men Type: BLOOD SPECIMENOrdering Facility: [facility] Address: [address] [place] [address] Performed By: #### 1 9123-9, 58321-2 ####LYN LABORATORYCLIA [id number] [place] [address] [place] NURSING PROGon 01-04-2023 NURSING PROG Normal [facility] CBC panel Auto (Bld)on 01-03 Erythrocyte distribution width (RBC) [Ratio] 13.2 % Normal 11.5-15.0 [facility] Comment on above: Order Comment: Speci men Type: BLOOD SPECIMENOrdering Facility: [facility] Address: [address] [place] [address] Performed By: #### 5 8410-2 ####LYN LABORATORYCLIA [id number] [address] Hematocrit (Bld) [Volume fraction] 37.4 % Low 39.0-51.0 [facility] Comment on above: Order Comment: Speci men Type: BLOOD SPECIMENOrdering Facility: [facility] Address: [address] [place] [address] Performed By: #### 5 8410-2 ####LYN LABORATORYCLIA [id number] [address] Hemoglobin (Bld) [Mass/Vol] 12.8 g/dL Low 13.0-17.0 [facility] Comment on above: Order Comment: Speci men Type: BLOOD SPECIMENOrdering Facility: [facility] Address: [address] [place] [address] Performed By: #### 5 8410-2 ####LYN LABORATORYCLIA [id number] [address] MCH (RBC) [Entitic mass] 30.3 pg Normal 26.0-34.0 [facility] Comment on above: Order Comment: Speci men Type: BLOOD SPECIMENOrdering Facility: [facility] Address: [address] [place] [address] Performed By: #### 5 8410-2 ####LYN LABORATORYCLIA [id number] [address] MCHC (RBC) [Mass/Vol] 34.2 g/dL Normal 30.5-36.0 [facility] Comment on above: Order Comment: Speci men Type: BLOOD SPECIMENOrdering Facility: [facility] Address: [address] [place] [address] Performed By: #### 5 8410-2 ####LYN LABORATORYCLIA [id number] [address] MCV (RBC) [Entitic vol] 88.4 fL Normal 80.0-100.0 [facility] Comment on above: Order Comment: Speci men Type: BLOOD SPECIMENOrdering Facility: [facility] Address: [address] [place] [address] Performed By: #### 5 8410-2 ####LYN LABORATORYCLIA [id number] [place] [address] [place] Nucleated RBC (Bld) [#/Vol] 10*3/uL Normal <0.01 [facility] Comment on above: Order Comment: Speci men Type: BLOOD SPECIMENOrdering Facility: [facility] Address: [address] [place] [address] Performed By: #### 5 8410-2 ####LYN LABORATORYCLIA [id number] [place] [address] [place] Platelet mean volume (Bld) [Entitic vol] 10.6 fL Normal 9.0-12.7 [facility] Comment on above: Order Comment: Speci men Type: BLOOD SPECIMENOrdering Facility: [facility] Address: [address] [place] [address] Performed By: #### 5 8410-2 ####LYN LABORATORYCLIA [id number] [place] [address] [place] Platelets (Bld) [#/Vol] 287 10*3/uL Normal 150-400 [facility] Comment on above: Order Comment: Speci men Type: BLOOD SPECIMENOrdering Facility: [facility] Address: [address] [place] [address] Performed By: #### 5 8410-2 ####LYN LABORATORYCLIA [id number] [place] [address] [place] RBC (Bld) [#/Vol] 4.23 10*6/uL Normal 4.20-6.00 [facility] Comment on above: Order Comment: Speci men Type: BLOOD SPECIMENOrdering Facility: [facility] Address: [address] [place] [address] Performed By: #### 5 8410-2 ####LYN LABORATORYCLIA [id number] [place] [id number] [place] WBC (Bld) [#/Vol] 8.06 10*3/uL Normal 3.70-11.00 [facility] Comment on above: Order Comment: Speci men Type: BLOOD SPECIMENOrdering Facility: [facility] Address: [address] [place] [address] Performed By: #### 5 8410-2 ####LYN LABORATORYCLIA [id number] [place] [address] [place] CONSULT PROGon 01-03-2023 CONSULT PROG Normal [facility] Comprehensive metabolic 2000 panelon 01-03-2023 Albumin [Mass/Vol] 2.7 g/dL Low 3.9-4.9 [facility] Comment on above: Order Comment: Speci men Type: BLOOD SPECIMENOrdering Facility: [facility] Address: [address] [place] [address] Performed By: #### 2 4323-8, ####LYN LABORATORYCLIA [id number] [place] [address] [place] ALP [Catalytic activity/Vol] 59 U/L Normal 38-113 [facility] Comment on above: Order Comment: Speci men Type: BLOOD SPECIMENOrdering Facility: [facility] Address: [address] [place] [address] Performed By: #### 2 4323-8, ####LYN LABORATORYCLIA [id number] [place] [address] [place] ALT [Catalytic activity/Vol] U/L Low 10-54 [facility] Comment on above: Order Comment: Speci men Type: BLOOD SPECIMENOrdering Facility: [facility] Address: [address] [place] [address] Performed By: #### 2 4323-8, ####LYN LABORATORYCLIA [id number] [place] [id number] [place] [facility] Anion gap [Moles/Vol] 12 mmol/L Normal 9-18 [facility] Comment on above: Order Comment: Speci men Type: BLOOD SPECIMENOrdering Facility: [facility] Address: [place] [address] Performed By: #### 2 4323-8, ####LYN LABORATORYCLIA [id number] [place] [id number] [place] AST [Catalytic activity/Vol] 13 U/L Low 14-40 [facility] Comment on above: Order Comment: Speci men Type: BLOOD SPECIMENOrdering Facility: [facility] Address: [address] [place] [address] Performed By: #### 2 4322-09, ####LYN LABORATORYCLIA [id number] [place] [address] [place] Bilirubin [Mass/Vol] 0.5 mg/dL Normal 0.2-1.3 [facility] Comment on above: Order Comment: Speci men Type: BLOOD SPECIMENOrdering Facility: [facility] Address: [place] [address] Performed By: #### 2 4322-09, ####LYN LABORATORYCLIA [id number] [place] [address] [place] Calcium [Mass/Vol] 7.8 mg/dL Low 8.5-10.2 [facility] Comment on above: Order Comment: Speci men Type: BLOOD SPECIMENOrdering Facility: [facility] Address: [place] [address] Performed By: #### 2 4322-09, ####LYN LABORATORYCLIA [id number] [place] [address] [place] Chloride [Moles/Vol] 99 mmol/L Normal 97-105 [facility] Comment on above: Order Comment: Speci men Type: BLOOD SPECIMENOrdering Facility: [facility] Address: [place] [address] Performed By: #### 2 4322-09, ####LYN LABORATORYCLIA [id number] [place] [id number] [place] CO2 [Moles/Vol] 24 mmol/L Normal 22-30 [facility] Comment on above: Order Comment: Speci men Type: BLOOD SPECIMENOrdering Facility: [facility] Address: [place] [address] Performed By: #### 2 4322-09, ####LYN LABORATORYCLIA [id number] [place] [address] [place] Creatinine [Mass/Vol] 0.73 mg/dL Normal 0.73-1.22 [facility] Comment on above: Order Comment: Greer tapia Type: BLOOD SPECIMENOrdering Facility: [facility] Address: [place] [address] Performed By: #### 2 4323-8, ####LYONS LABORATORYCLIA [id number] [place] [address] [place] Creatinine and Glomerular filtration rate.predicted panel (S/P/Bld) 95 mL/min/1.73m??? Normal >=60 [facility] Comment on above: Order Comment: Greer tapia Type: BLOOD SPECIMENOrdering Facility: [facility] Address: [place] [address] Result Comment: Daiana mated Glomerular Filtration Rate (eGFR) is calculated using the 2020 CKD-EPI creatinine equation. This equation utilizes serum creatinine, sex, and age as parameters. The creatinine assay has traceable calibration to isotope dilution-mass spectrometry. Refer to KDIGO guidelines for clinical interpretation. In patients with unstable renal function, e.g. those with acute kidney injury, the eGFR may not accurately reflect actual GFR. Performed By: #### 2 4323-8, ####[facility] LABORATORYCLIA [id number] [place] [id number] [place] Glucose [Mass/Vol] 111 mg/dL High 74-99 [facility] Comment on above: Order Comment: Greer tapia Type: BLOOD SPECIMENOrdering Facility: [facility] Address: [place] [address] Result Comment: The [place] [employer] (ADA) provides guidance for cutoff values for fasting glucose and random glucose. The ADA defines fasting as no caloric intake for at least 8 hours. Fasting plasma glucose results between 100 to 125 mg/dL indicate increased risk for diabetes (prediabetes).Fasting plasma glucose results greater than or equal to 126 mg/dL meet the criteria for diagnosis of diabetes. In the absence of unequivocal hyperglycemia, results should be confirmed by repeat testing. In a patient with classic symptoms of hyperglycemia or hyperglycemic crisis, random plasma glucose results greater than or equal to 200 mg/dL meet the criteria for diagnosis of diabetes.Reference: Standards of Medical Care in Diabetes 2016, [place] [employer]. Diabetes Care. 2016.39(Suppl 1). Performed By: #### 2 432-8, ####LYN LABORATORYCLIA [id number] [place] [address] [place] Potassium [Moles/Vol] 3.3 mmol/L Low 3.7-5.1 [facility] Comment on above: Order Comment: Speci men Type: BLOOD SPECIMENOrdering Facility: [facility] Address: [address] [place] [address] Performed By: #### 2 4328, ####LYN LABORATORYCLIA [id number] [place] [address] [place] Protein [Mass/Vol] 5.2 g/dL Low 6.3-8.0 [facility] Comment on above: Order Comment: Speci men Type: BLOOD SPECIMENOrdering Facility: [facility] Address: [address] [place] [address] Performed By: #### 2 4328, ####LYN LABORATORYCLIA [id number] [place] [address] [place] Sodium [Moles/Vol] 135 mmol/L Low 136-144 [facility] Comment on above: Order Comment: Speci men Type: BLOOD SPECIMENOrdering Facility: [facility] Address: [address] [place] [address] Performed By: #### 2 4328, ####LYN LABORATORYCLIA [id number] [place] [address] [place] Urea nitrogen [Mass/Vol] 9 mg/dL Normal 9-24 [facility] Comment on above: Order Comment: Speci men Type: BLOOD SPECIMENOrdering Facility: [facility] Address: [address] [place] [address] Performed By: #### 2 4323-8, ####LYN LABORATORYCLIA [id number] [place] [address] [place] Magnesium SerPl-mCncon 01-03 Magnesium [Mass/Vol] 1.5 mg/dL Low 1.7-2.3 [facility] Comment on above: Order Comment: Speci men Type: BLOOD SPECIMENOrdering Facility: [facility] Address: [place] [address] Performed By: #### 2 4323-8, 83198-9 ####[facility] LABORATORYCLIA [id number] [address] PT panel Coag (PPP)on 2022 INR Coag (PPP) [Relative time] 1.2 {INR} Normal 0.9-1.3 [facility] Comment on above: Order Comment: Greer regina Type: BLOOD SPECIMENOrdering Facility: [facility] Address: [place] [address] Result Comment: Quynh min K Antagonist (VKA) Therapeutic Range: INR 2 to 3 (Target INR of 2.5)Note: For patients treated with VKA drugs, such as warfarin, the [place] [employer] 2012 Guideline recommends a therapeutic INR range of 2 to 3 (target INR of 2.5). This recommendation includes high-risk patients with antiphospholipid syndrome with previous arterial or venous thromboembolism, current-generation mechanical or bioprosthetic aortic heart valve replacement.Note: Patients with mechanical aortic valve replacement and additional risk factors for thromboembolic events (atrial fibrillation, previous thromboembolism, LV dysfunction, hypercoagulable conditions) or an older generation mechanical AVR (i.e., ball in-Cage) or any mechanical MVR should have a INR therapeutic range of 2.5 to 3.5 (target INR of 3).Staci GH, et al. Chest 2012, 141:7S-47SNishcynthia RA, et al. [facility] 2017, 70: 252-289 Performed By: #### 3 4528-0 ####LY[facility] LABORATORYCLIA [id number] [place] [id number] [place] [facility] PT Coag (PPP) [Time] 12.8 s Normal 9.7-13.0 [facility] Comment on above: Order Comment: Madelinetio tapia Type: BLOOD SPECIMENOrdering Facility: [facility] Address: [place] [address] Performed By: #### 3 4528-0 ####[facility] LABORATORYCLIA [id number] [address] THERAPY NTon 01-03-2023 THERAPY NT Normal [facility] ALLIED HEALTHon 01-02-2023 ALLIED HEALTH Normal [facility] CASE MANAGEMon 01-02-2023 CASE MANAGEM Normal [facility] CBC panel Auto (Bld)on 01-02 Erythrocyte distribution width (RBC) [Ratio] 13.5 % Normal 11.5-15.0 [facility] Comment on above: Order Comment: Speci men Type: BLOOD SPECIMENOrdering Facility: [facility] Address: [address] [place] [address] Performed By: #### 5 8410-2 ####LYN LABORATORYCLIA [id number] [address] Hematocrit (Bld) [Volume fraction] 36.2 % Low 39.0-51.0 [facility] Comment on above: Order Comment: Speci men Type: BLOOD SPECIMENOrdering Facility: [facility] Address: [address] [place] [address] Performed By: #### 5 8410-2 ####LYN LABORATORYCLIA [id number] [address] [place] Hemoglobin (Bld) [Mass/Vol] 12.2 g/dL Low 13.0-17.0 [facility] Comment on above: Order Comment: Speci men Type: BLOOD SPECIMENOrdering Facility: [facility] Address: [address] [place] [address] Performed By: #### 5 8410-2 ####LYN LABORATORYCLIA [id number] [place] [address] [place] MCH (RBC) [Entitic mass] 29.7 pg Normal 26.0-34.0 [facility] Comment on above: Order Comment: Speci men Type: BLOOD SPECIMENOrdering Facility: [facility] Address: [address] [place] [address] Performed By: #### 5 8410-2 ####LYN LABORATORYCLIA [id number] [place] [address] [place] MCHC (RBC) [Mass/Vol] 33.7 g/dL Normal 30.5-36.0 [facility] Comment on above: Order Comment: Speci men Type: BLOOD SPECIMENOrdering Facility: [facility] Address: [address] [place] [address] Performed By: #### 5 8410-2 ####LYN LABORATORYCLIA [id number] [address] MCV (RBC) [Entitic vol] 88.1 fL Normal 80.0-100.0 [facility] Comment on above: Order Comment: Speci men Type: BLOOD SPECIMENOrdering Facility: [facility] Address: [address] [place] [address] Performed By: #### 5 8410-2 ####LYN LABORATORYCLIA [id number] [address] Nucleated RBC (Bld) [#/Vol] 10*3/uL Normal <0.01 [facility] Comment on above: Order Comment: Speci men Type: BLOOD SPECIMENOrdering Facility: [facility] Address: [address] [place] [address] Performed By: #### 5 8410-2 ####LYN LABORATORYCLIA [id number] [address] [place] Platelet mean volume (Bld) [Entitic vol] 10.8 fL Normal 9.0-12.7 [facility] Comment on above: Order Comment: Speci men Type: BLOOD SPECIMENOrdering Facility: [facility] Address: [address] [place] [address] Performed By: #### 5 8410-2 ####LYN LABORATORYCLIA [id number] [address] Platelets (Bld) [#/Vol] 260 10*3/uL Normal 150-400 [facility] Comment on above: Order Comment: Speci men Type: BLOOD SPECIMENOrdering Facility: [facility] Address: [address] [place] [address] Performed By: #### 5 8410-2 ####LYN LABORATORYCLIA [id number] [address] [place] RBC (Bld) [#/Vol] 4.11 10*6/uL Low 4.20-6.00 [facility] Comment on above: Order Comment: Speci men Type: BLOOD SPECIMENOrdering Facility: [facility] Address: [address] [place] [address] Performed By: #### 5 8410-2 ####LYN LABORATORYCLIA [id number] [place] [address] [place] WBC (Bld) [#/Vol] 6.45 10*3/uL Normal 3.70-11.00 [facility] Comment on above: Order Comment: Speci men Type: BLOOD SPECIMENOrdering Facility: [facility] Address: [address] [facility] [place] [address] Performed By: #### 5 8410-2 ####LYN LABORATORYCLIA [id number] [address] [place] CONSULT PROGon 01-02-2023 CONSULT PRO Normal [facility] CONSULT PROG Normal [facility] Comprehensive metabolic 2000 panelon 01-02-2023 Albumin [Mass/Vol] 2.6 g/dL Low 3.9-4.9 [facility] Comment on above: Order Comment: Speci men Type: BLOOD SPECIMENOrdering Facility: [facility] Address: [place] [address] Performed By: #### 1 9123-9, 73627-0 ####LYN LABORATORYCLIA [id number] [address] [place] ALP [Catalytic activity/Vol] 53 U/L Normal 38-113 [facility] Comment on above: Order Comment: Speci men Type: BLOOD SPECIMENOrdering Facility: [facility] Address: [place] [address] Performed By: #### 1 9123-9, 85707-6 ####LYN LABORATORYCLIA [id number] [place] [address] [place] ALT [Catalytic activity/Vol] U/L Low 10-54 [facility] Comment on above: Order Comment: Speci men Type: BLOOD SPECIMENOrdering Facility: [facility] Address: [place] [address] Performed By: #### 1 9123-9, ####LYN LABORATORYCLIA [id number] [place] [address] [place] Anion gap [Moles/Vol] 9 mmol/L Normal 9-18 [facility] Comment on above: Order Comment: Speci men Type: BLOOD SPECIMENOrdering Facility: [facility] Address: [address] [place] [address] Performed By: #### 1 239, ####LYN LABORATORYCLIA [id number] [place] [address] [place] AST [Catalytic activity/Vol] 15 U/L Normal 14-40 [facility] Comment on above: Order Comment: Speci men Type: BLOOD SPECIMENOrdering Facility: [facility] Address: [address] [place] [address] Performed By: #### 1 239, ####LYN LABORATORYCLIA [id number] [place] [address] [place] Bilirubin [Mass/Vol] 0.7 mg/dL Normal 0.2-1.3 [facility] Comment on above: Order Comment: Speci men Type: BLOOD SPECIMENOrdering Facility: [facility] Address: [place] [address] Performed By: #### 1 239, ####LYN LABORATORYCLIA [id number] [address] [place] Calcium [Mass/Vol] 7.7 mg/dL Low 8.5-10.2 [facility] Comment on above: Order Comment: Speci men Type: BLOOD SPECIMENOrdering Facility: [facility] Address: [address] [place] [address] Performed By: #### 1 23-9, ####LYN LABORATORYCLIA [id number] [place] [address] [place] Chloride [Moles/Vol] 101 mmol/L Normal 97-105 [facility] Comment on above: Order Comment: Speci men Type: BLOOD SPECIMENOrdering Facility: [facility] Address: [address] [place] [address] Performed By: #### 1 23-9, 03032-4 ####LYN LABORATORYCLIA [id number] [place] [address] [place] CO2 [Moles/Vol] 25 mmol/L Normal 22-30 [facility] Comment on above: Order Comment: Speci regina Type: BLOOD SPECIMENOrdering Facility: [facility] Address: [address] [place] [address] Performed By: #### 1 9123-9, ####LYN LABORATORYCLIA [id number] [place] [address] [place] Creatinine [Mass/Vol] 0.73 mg/dL Normal 0.73-1.22 [facility] Comment on above: Order Comment: Greer tapia Type: BLOOD SPECIMENOrdering Facility: [facility] Address: [address] [place] [address] Performed By: #### 1 912[address], ####LYN LABORATORYCLIA [id number] [address] Creatinine and Glomerular filtration rate.predicted panel (S/P/Bld) 95 mL/min/1.73m??? Normal >=60 [facility] Comment on above: Order Comment: Greer tapia Type: BLOOD SPECIMENOrdering Facility: [facility] Address: [address] [place] [address] Result Comment: Daiana mated Glomerular Filtration Rate (eGFR) is calculated using the 2020 CKD-EPI creatinine equation. This equation utilizes serum creatinine, sex, and age as parameters. The creatinine assay has traceable calibration to isotope dilution-mass spectrometry. Refer to KDIGO guidelines for clinical interpretation. In patients with unstable renal function, e.g. those with acute kidney injury, the eGFR may not accurately reflect actual GFR. Performed By: #### 1 9123-9, 96387-6 ####LYN LABORATORYCLIA [id number] [place] [address] [place] Glucose [Mass/Vol] 101 mg/dL High 74-99 [facility] Comment on above: Order Comment: Greer tapia Type: BLOOD SPECIMENOrdering Facility: [facility] Address: [address] [place] [address] Result Comment: The [place] [employer] (ADA) provides guidance for cutoff values for fasting glucose and random glucose. The ADA defines fasting as no caloric intake for at least 8 hours. Fasting plasma glucose results between 100 to 125 mg/dL indicate increased risk for diabetes (prediabetes).Fasting plasma glucose results greater than or equal to 126 mg/dL meet the criteria for diagnosis of diabetes. In the absence of unequivocal hyperglycemia, results should be confirmed by repeat testing. In a patient with classic symptoms of hyperglycemia or hyperglycemic crisis, random plasma glucose results greater than or equal to 200 mg/dL meet the criteria for diagnosis of diabetes.Reference: Standards of Medical Care in Diabetes 2016, [place] [employer]. Diabetes Care. 2016.39(Suppl 1). Performed By: #### 1 9123-9, ####LYN LABORATORYCLIA [id number] [place] [address] [place] Potassium [Moles/Vol] 3.6 mmol/L Low 3.7-5.1 [facility] Comment on above: Order Comment: Speci men Type: BLOOD SPECIMENOrdering Facility: [facility] Address: [address] [place] [address] Performed By: #### 1 239, ####LYN LABORATORYCLIA [id number] [place] [address] [place] Protein [Mass/Vol] 4.9 g/dL Low 6.3-8.0 [facility] Comment on above: Order Comment: Speci men Type: BLOOD SPECIMENOrdering Facility: [facility] Address: [address] [place] [address] Performed By: #### 1 9122-10, ####LYN LABORATORYCLIA [id number] [place] [address] [place] Sodium [Moles/Vol] 135 mmol/L Low 136-144 [facility] Comment on above: Order Comment: Speci men Type: BLOOD SPECIMENOrdering Facility: [facility] Address: [address] [place] [address] Performed By: #### 1 239, ####LNY LABORATORYCLIA [id number] [place] [address] [place] Urea nitrogen [Mass/Vol] 13 mg/dL Normal 9-24 [facility] Comment on above: Order Comment: Speci men Type: BLOOD SPECIMENOrdering Facility: [facility] Address: [place] [address] Performed By: #### 1 9123-9, 97698-7 ####LYN LABORATORYCLIA [id number] [place] [id number] [place] Magnesium SerPl-mCncon 01-02 Magnesium [Mass/Vol] 1.7 mg/dL Normal 1.7-2.3 [facility] Comment on above: Order Comment: Speci men Type: BLOOD SPECIMENOrdering Facility: [facility] Address: [address] [place] [address] Performed By: #### 1 9123-9, 12323-6 ####LYONS LABORATORYCLIA [id number] [place] [address] [place] THERAPY NTon 01-02-2023 THERAPY NT Normal [facility] CASE MANAGEMon 01-01-2023 CASE MANAGEM Normal [facility] CBC panel Auto (Bld)on 01-01 Erythrocyte distribution width (RBC) [Ratio] 13.3 % Normal 11.5-15.0 [facility] Comment on above: Order Comment: Speci men Type: BLOOD SPECIMENOrdering Facility: [facility] Address: [place] [address] Performed By: #### 5 8410-2 ####LYN LABORATORYCLIA [id number] [place] [id number] [place] Hematocrit (Bld) [Volume fraction] 36.2 % Low 39.0-51.0 [facility] Comment on above: Order Comment: Speci men Type: BLOOD SPECIMENOrdering Facility: [facility] Address: [address] [place] [address] Performed By: #### 5 8410-2 ####LYN LABORATORYCLIA [id number] [place] [address] [place] Hemoglobin (Bld) [Mass/Vol] 12.3 g/dL Low 13.0-17.0 [facility] Comment on above: Order Comment: Speci men Type: BLOOD SPECIMENOrdering Facility: [facility] Address: [address] [place] [address] Performed By: #### 5 8410-2 ####LYN LABORATORYCLIA [id number] [address] MCH (RBC) [Entitic mass] 30.2 pg Normal 26.0-34.0 [facility] Comment on above: Order Comment: Speci men Type: BLOOD SPECIMENOrdering Facility: [facility] Address: [address] [place] [address] Performed By: #### 5 8410-2 ####LYN LABORATORYCLIA [id number] [address] MCHC (RBC) [Mass/Vol] 34.0 g/dL Normal 30.5-36.0 [facility] Comment on above: Order Comment: Speci men Type: BLOOD SPECIMENOrdering Facility: [facility] Address: [address] [place] [address] Performed By: #### 5 8410-2 ####LYN LABORATORYCLIA [id number] [address] MCV (RBC) [Entitic vol] 88.9 fL Normal 80.0-100.0 [facility] Comment on above: Order Comment: Speci men Type: BLOOD SPECIMENOrdering Facility: [facility] Address: [address] [place] [address] Performed By: #### 5 8410-2 ####LYN LABORATORYCLIA [id number] [address] Nucleated RBC (Bld) [#/Vol] 10*3/uL Normal <0.01 [facility] Comment on above: Order Comment: Speci men Type: BLOOD SPECIMENOrdering Facility: [facility] Address: [address] [place] [address] Performed By: #### 5 8410-2 ####LYN LABORATORYCLIA [id number] [address] Platelet mean volume (Bld) [Entitic vol] 11.5 fL Normal 9.0-12.7 [facility] Comment on above: Order Comment: Speci men Type: BLOOD SPECIMENOrdering Facility: [facility] Address: [address] [facility] [address] Performed By: #### 5 8410-2 ####LYN LABORATORYCLIA [id number] [address] [place] Platelets (Bld) [#/Vol] 244 10*3/uL Normal 150-400 [facility] Comment on above: Order Comment: Speci men Type: BLOOD SPECIMENOrdering Facility: [facility] Address: [address] [facility] [address] Performed By: #### 5 8410-2 ####LYN LABORATORYCLIA [id number] [place] [address] [place] RBC (Bld) [#/Vol] 4.07 10*6/uL Low 4.20-6.00 [facility] Comment on above: Order Comment: Speci men Type: BLOOD SPECIMENOrdering Facility: [facility] Address: [place] [address] Performed By: #### 5 8410-2 ####LYONS LABORATORYCLIA [id number] [place] [address] [place] WBC (Bld) [#/Vol] 11.75 10*3/uL High 3.70-11.00 [facility] Comment on above: Order Comment: Speci men Type: BLOOD SPECIMENOrdering Facility: [facility] Address: [place] [address] Performed By: #### 5 8410-2 ####LYN LABORATORYCLIA [id number] [address] [place] CONSULT PROGon 01-01-2023 CONSULT PROG Normal [facility] CONSULT PROG Normal [facility] Comprehensive metabolic 2000 panelon 01-01-2023 Albumin [Mass/Vol] 2.4 g/dL Low 3.9-4.9 [facility] Comment on above: Order Comment: Speci men Type: BLOOD SPECIMENOrdering Facility: [facility] Address: [place] [address] Performed By: #### 1 9123-9, 30917-4 ####LYN LABORATORYCLIA [id number] [address] ALP [Catalytic activity/Vol] 61 U/L Normal 38-113 [facility] Comment on above: Order Comment: Speci men Type: BLOOD SPECIMENOrdering Facility: [facility] Address: [address] [place] [address] Performed By: #### 1 23-9, 05961-0 ####LYN LABORATORYCLIA [id number] [place] [address] [place] ALT [Catalytic activity/Vol] U/L Low 10-54 [facility] Comment on above: Order Comment: Speci men Type: BLOOD SPECIMENOrdering Facility: [facility] Address: [address] [place] [address] Performed By: #### 1 23-9, 30871-3 ####LYN LABORATORYCLIA [id number] [address] [place] Anion gap [Moles/Vol] 5 mmol/L Low 9-18 [facility] Comment on above: Order Comment: Speci men Type: BLOOD SPECIMENOrdering Facility: [facility] Address: [address] [place] [address] Performed By: #### 1 23-9, 87430-3 ####LYN LABORATORYCLIA [id number] [address] [place] AST [Catalytic activity/Vol] 15 U/L Normal 14-40 [facility] Comment on above: Order Comment: Speci men Type: BLOOD SPECIMENOrdering Facility: [facility] Address: [address] [place] [address] Performed By: #### 1 9123-9, 70330-9 ####LYN LABORATORYCLIA [id number] [address] Bilirubin [Mass/Vol] 0.6 mg/dL Normal 0.2-1.3 [facility] Comment on above: Order Comment: Speci men Type: BLOOD SPECIMENOrdering Facility: [facility] Address: [address] [place] [address] Performed By: #### 1 23-9, ####LYN LABORATORYCLIA [id number] [place] [address] [place] Calcium [Mass/Vol] 7.7 mg/dL Low 8.5-10.2 [facility] Comment on above: Order Comment: Speci men Type: BLOOD SPECIMENOrdering Facility: [facility] Address: [address] [facility] [place] [address] Performed By: #### 1 239, ####LYN LABORATORYCLIA [id number] [place] [address] [place] Chloride [Moles/Vol] 103 mmol/L Normal 97-105 [facility] Comment on above: Order Comment: Speci men Type: BLOOD SPECIMENOrdering Facility: [facility] Address: [address] [place] [address] Performed By: #### 1 239, ####LYN LABORATORYCLIA [id number] [place] [address] [place] CO2 [Moles/Vol] 28 mmol/L Normal 22-30 [facility] Comment on above: Order Comment: Speci men Type: BLOOD SPECIMENOrdering Facility: [facility] Address: [facility] [place] [address] Performed By: #### 1 239, ####LYN LABORATORYCLIA [id number] [place] [address] [place] Creatinine [Mass/Vol] 0.82 mg/dL Normal 0.73-1.22 [facility] Comment on above: Order Comment: Speci men Type: BLOOD SPECIMENOrdering Facility: [facility] Address: [address] [place] [address] Performed By: #### 1 23-9, ####LYN LABORATORYCLIA [id number] [address] [place] Creatinine and Glomerular filtration rate.predicted panel (S/P/Bld) 92 mL/min/1.73m??? Normal >=60 [facility] Comment on above: Order Comment: Speci men Type: BLOOD SPECIMENOrdering Facility: [facility] Address: [place] [address] Result Comment: Daiana mated Glomerular Filtration Rate (eGFR) is calculated using the 2020 CKD-EPI creatinine equation. This equation utilizes serum creatinine, sex, and age as parameters. The creatinine assay has traceable calibration to isotope dilution-mass spectrometry. Refer to KDIGO guidelines for clinical interpretation. In patients with unstable renal function, e.g. those with acute kidney injury, the eGFR may not accurately reflect actual GFR. Performed By: #### 1 9123-9, 51280-8 ####LYONS LABORATORYCLIA [id number] [place] [id number] [place] Glucose [Mass/Vol] 104 mg/dL High 74-99 [facility] Comment on above: Order Comment: Greer tapia Type: BLOOD SPECIMENOrdering Facility: [facility] Address: [address] [place] [address] Result Comment: The [place] [employer] (ADA) provides guidance for cutoff values for fasting glucose and random glucose. The ADA defines fasting as no caloric intake for at least 8 hours. Fasting plasma glucose results between 100 to 125 mg/dL indicate increased risk for diabetes (prediabetes).Fasting plasma glucose results greater than or equal to 126 mg/dL meet the criteria for diagnosis of diabetes. In the absence of unequivocal hyperglycemia, results should be confirmed by repeat testing. In a patient with classic symptoms of hyperglycemia or hyperglycemic crisis, random plasma glucose results greater than or equal to 200 mg/dL meet the criteria for diagnosis of diabetes.Reference: Standards of Medical Care in Diabetes 2016, [place] [employer]. Diabetes Care. 2016.39(Suppl 1). Performed By: #### 1 9123-9, 43695-3 ####LYONS LABORATORYCLIA [id number] [place] [address] [place] Potassium [Moles/Vol] 3.9 mmol/L Normal 3.7-5.1 [facility] Comment on above: Order Comment: Greer tapia Type: BLOOD SPECIMENOrdering Facility: [facility] Address: [address] [place] [place] [id number] Performed By: #### 1 9123-9, 18639-9 ####LYN LABORATORYCLIA [id number] [place] [address] [place] Protein [Mass/Vol] 4.7 g/dL Low 6.3-8.0 [facility] Comment on above: Order Comment: Speci men Type: BLOOD SPECIMENOrdering Facility: [facility] Address: [address] [place] [address] Performed By: #### 1 9123-9, 43680-3 ####LYN LABORATORYCLIA [id number] [place] [address] [place] Sodium [Moles/Vol] 136 mmol/L Normal 136-144 [facility] Comment on above: Order Comment: Speci men Type: BLOOD SPECIMENOrdering Facility: [facility] Address: [address] [place] [address] Performed By: #### 1 9123-9, ####LYN LABORATORYCLIA [id number] [place] [address] [place] Urea nitrogen [Mass/Vol] 9 mg/dL Normal 9-24 [facility] Comment on above: Order Comment: Speci men Type: BLOOD SPECIMENOrdering Facility: [facility] Address: [address] [place] [address] Performed By: #### 1 9123-9, 15985-7 ####LYN LABORATORYCLIA [id number] [place] [address] [place] Magnesium SerPl-mCncon 01-01 Magnesium [Mass/Vol] 1.9 mg/dL Normal 1.7-2.3 [facility] Comment on above: Order Comment: Speci men Type: BLOOD SPECIMENOrdering Facility: [facility] Address: [address] [place] [address] Performed By: #### 1 9123-9, 38123-6 ####LYN LABORATORYCLIA [id number] [place] [address] [place] THERAPY NTon 01-01-2023 THERAPY NT [facility] ALLIED HEALTHon 12-31-2022 ALLIED HEALTH [facility] CASE MANAGEMon 12-31-2022 CASE MANAGEM [facility] CBC panel Auto (Bld)on 12-31 Erythrocyte distribution width (RBC) [Ratio] 13.0 % Normal 11.5-15.0 [facility] Comment on above: Order Comment: Speci men Type: BLOOD SPECIMENOrdering Facility: [facility] Address: [address] [place] [address] Performed By: #### 5 8410-2 ####LYN LABORATORYCLIA [id number] [address] Hematocrit (Bld) [Volume fraction] 38.5 % Low 39.0-51.0 [facility] Comment on above: Order Comment: Speci men Type: BLOOD SPECIMENOrdering Facility: [facility] Address: [address] [place] [address] Performed By: #### 5 8410-2 ####LYN LABORATORYCLIA [id number] [address] OF [facility] Hemoglobin (Bld) [Mass/Vol] 12.8 g/dL Low 13.0-17.0 [facility] Comment on above: Order Comment: Speci men Type: BLOOD SPECIMENOrdering Facility: [facility] Address: [address] [place] [address] Performed By: #### 5 8410-2 ####LYN LABORATORYCLIA [id number] [address] MCH (RBC) [Entitic mass] 29.9 pg Normal 26.0-34.0 [facility] Comment on above: Order Comment: Speci men Type: BLOOD SPECIMENOrdering Facility: [facility] Address: [address] [place] [address] Performed By: #### 5 8410-2 ####LYN LABORATORYCLIA [id number] [address] MCHC (RBC) [Mass/Vol] 33.2 g/dL Normal 30.5-36.0 [facility] Comment on above: Order Comment: Speci men Type: BLOOD SPECIMENOrdering Facility: [facility] Address: [address] [place] [address] Performed By: #### 5 8410-2 ####LYN LABORATORYCLIA [id number] [place] [address] [place] MCV (RBC) [Entitic vol] 90.0 fL Normal 80.0-100.0 [facility] Comment on above: Order Comment: Speci men Type: BLOOD SPECIMENOrdering Facility: [facility] Address: [address] [place] [address] Performed By: #### 5 8410-2 ####LYN LABORATORYCLIA [id number] [place] [address] [place] Nucleated RBC (Bld) [#/Vol] 10*3/uL Normal <0.01 [facility] Comment on above: Order Comment: Speci men Type: BLOOD SPECIMENOrdering Facility: [facility] Address: [address] [place] [address] Performed By: #### 5 8410-2 ####LYN LABORATORYCLIA [id number] [place] [address] [place] Platelet mean volume (Bld) [Entitic vol] 11.4 fL Normal 9.0-12.7 [facility] Comment on above: Order Comment: Speci men Type: BLOOD SPECIMENOrdering Facility: [facility] Address: [address] [place] [address] Performed By: #### 5 8410-2 ####LYN LABORATORYCLIA [id number] [place] [address] [place] Platelets (Bld) [#/Vol] 248 10*3/uL Normal 150-400 [facility] Comment on above: Order Comment: Speci men Type: BLOOD SPECIMENOrdering Facility: [facility] Address: [address] [place] [address] Performed By: #### 5 8410-2 ####LYN LABORATORYCLIA [id number] [place] [address] [place] RBC (Bld) [#/Vol] 4.28 10*6/uL Normal 4.20-6.00 [facility] Comment on above: Order Comment: Speci men Type: BLOOD SPECIMENOrdering Facility: [facility] Address: [address] [place] [address] Performed By: #### 5 8410-2 ####LYN LABORATORYCLIA [id number] [place] [address] [place] WBC (Bld) [#/Vol] 11.75 10*3/uL High 3.70-11.00 [facility] Comment on above: Order Comment: Speci men Type: BLOOD SPECIMENOrdering Facility: [facility] Address: [address] [place] [address] Performed By: #### 5 8410-2 ####LYONS LABORATORYCLIA [id number] [address] [place] Comprehensive metabolic 2000 panelon 12-31-2022 Albumin [Mass/Vol] 2.8 g/dL Low 3.9-4.9 [facility] Comment on above: Order Comment: Speci men Type: BLOOD SPECIMENOrdering Facility: [facility] Address: [address] [place] [address] Performed By: #### 1 9123-9, 20990-1 ####LYONS LABORATORYCLIA [id number] [address] [place] ALP [Catalytic activity/Vol] 59 U/L Normal 38-113 [facility] Comment on above: Order Comment: Speci men Type: BLOOD SPECIMENOrdering Facility: [facility] Address: [address] [place] [address] Performed By: #### 1 9123-9, 71385-4 ####LYN LABORATORYCLIA [id number] [address] [place] ALT [Catalytic activity/Vol] U/L Low 10-54 [facility] Comment on above: Order Comment: Speci men Type: BLOOD SPECIMENOrdering Facility: [facility] Address: [address] [place] [address] Performed By: #### 1 9123-9, 07242-5 ####LYN LABORATORYCLIA [id number] [address] Anion gap [Moles/Vol] 8 mmol/L Low 9-18 [facility] Comment on above: Order Comment: Speci men Type: BLOOD SPECIMENOrdering Facility: [facility] Address: [address] [place], [place] [address] Performed By: #### 1 23-9, ####LYN LABORATORYCLIA [id number] [place] [address] [place] AST [Catalytic activity/Vol] 14 U/L Normal 14-40 [facility] Comment on above: Order Comment: Speci men Type: BLOOD SPECIMENOrdering Facility: [facility] Address: [address] [place] [address] Performed By: #### 1 239, ####LYN LABORATORYCLIA [id number] [place] [address] [place] Bilirubin [Mass/Vol] 0.7 mg/dL Normal 0.2-1.3 [facility] Comment on above: Order Comment: Speci men Type: BLOOD SPECIMENOrdering Facility: [facility] Address: [address] [place] [address] Performed By: #### 1 239, ####LYN LABORATORYCLIA [id number] [place] [address] [place] Calcium [Mass/Vol] 7.9 mg/dL Low 8.5-10.2 [facility] Comment on above: Order Comment: Speci men Type: BLOOD SPECIMENOrdering Facility: [facility] Address: [address] [place] [address] Performed By: #### 1 239, ####LYN LABORATORYCLIA [id number] [place] [address] [place] Chloride [Moles/Vol] 104 mmol/L Normal 97-105 [facility] Comment on above: Order Comment: Speci men Type: BLOOD SPECIMENOrdering Facility: [facility] Address: [address] [place] [address] Performed By: #### 1 23-9, ####LYN LABORATORYCLIA [id number] [place] [address] [place] CO2 [Moles/Vol] 27 mmol/L Normal 22-30 [facility] Comment on above: Order Comment: Speci men Type: BLOOD SPECIMENOrdering Facility: [facility] Address: [address] [place] [address] Performed By: #### 1 9123-9, 33326-1 ####LYN LABORATORYCLIA [id number] [place] [address] [place] [facility] Creatinine [Mass/Vol] 0.78 mg/dL Normal 0.73-1.22 [facility] Comment on above: Order Comment: Greer tapia Type: BLOOD SPECIMENOrdering Facility: [facility] Address: [place] [address] Performed By: #### 1 9123-9, ####LYN LABORATORYCLIA [id number] [address] Creatinine and Glomerular filtration rate.predicted panel (S/P/Bld) 94 mL/min/1.73m??? Normal >=60 [facility] Comment on above: Order Comment: Greer tapia Type: BLOOD SPECIMENOrdering Facility: [facility] Address: [address] [place] [address] Result Comment: Daiana mated Glomerular Filtration Rate (eGFR) is calculated using the 2020 CKD-EPI creatinine equation. This equation utilizes serum creatinine, sex, and age as parameters. The creatinine assay has traceable calibration to isotope dilution-mass spectrometry. Refer to KDIGO guidelines for clinical interpretation. In patients with unstable renal function, e.g. those with acute kidney injury, the eGFR may not accurately reflect actual GFR. Performed By: #### 1 9123-9, ####LYN LABORATORYCLIA [id number] [place] [id number] [place] Glucose [Mass/Vol] 140 mg/dL High 74-99 [facility] Comment on above: Order Comment: Greer tapia Type: BLOOD SPECIMENOrdering Facility: [facility] Address: [address] [place] [address] Result Comment: The [place] Diabetes [employer] (ADA) provides guidance for cutoff values for fasting glucose and random glucose. The ADA defines fasting as no caloric intake for at least 8 hours. Fasting plasma glucose results between 100 to 125 mg/dL indicate increased risk for diabetes (prediabetes).Fasting plasma glucose results greater than or equal to 126 mg/dL meet the criteria for diagnosis of diabetes. In the absence of unequivocal hyperglycemia, results should be confirmed by repeat testing. In a patient with classic symptoms of hyperglycemia or hyperglycemic crisis, random plasma glucose results greater than or equal to 200 mg/dL meet the criteria for diagnosis of diabetes.Reference: Standards of Medical Care in Diabetes 2016, [place] [employer]. Diabetes Care. 2016.39(Suppl 1). Performed By: #### 1 239, ####LYN LABORATORYCLIA [id number] [place] [address] [place] Potassium [Moles/Vol] 3.6 mmol/L Low 3.7-5.1 [facility] Comment on above: Order Comment: Greer tapia Type: BLOOD SPECIMENOrdering Facility: [facility] Address: [address] [place] [address] Performed By: #### 1 9122-10, ####LYN LABORATORYCLIA [id number] [place] [address] [place] Protein [Mass/Vol] 5.0 g/dL Low 6.3-8.0 [facility] Comment on above: Order Comment: Greer tapia Type: BLOOD SPECIMENOrdering Facility: [facility] Address: [address] [place] [address] Performed By: #### 1 9122-10, ####LYN LABORATORYCLIA [id number] [address] [place] Sodium [Moles/Vol] 139 mmol/L Normal 136-144 [facility] Comment on above: Order Comment: Greer tapia Type: BLOOD SPECIMENOrdering Facility: [facility] Address: [address] [place] [address] Performed By: #### 1 9122-10, ####LYN LABORATORYCLIA [id number] [place] [address] [place] Urea nitrogen [Mass/Vol] 11 mg/dL Normal 9-24 [facility] Comment on above: Order Comment: Greer tapia Type: BLOOD SPECIMENOrdering Facility: [facility] Address: [address] [place] [address] Performed By: #### 1 9122-10, ####LYN LABORATORYCLIA [id number] [place] [address] [place] Magnesium SerPl-mCncon 12-31 Magnesium [Mass/Vol] 1.6 mg/dL Low 1.7-2.3 [facility] Comment on above: Order Comment: Speci men Type: BLOOD SPECIMENOrdering Facility: [facility] Address: [address] [place] [address] Performed By: #### 1 9123-9, 09416-9 ####LYN LABORATORYCLIA [id number] [place] [address] [place] NURSING PROGon 12-31-2022 NURSING PROG Normal [facility] THERAPY NTon 12-31-2022 THERAPY NT Normal [facility] THERAPY NT Normal [facility] CASE MANAGEMon 12-30-2022 CASE MANAGEM Normal [facility] CBC panel Auto (Bld)on 12-30 Erythrocyte distribution width (RBC) [Ratio] 13.2 % Normal 11.5-15.0 [facility] Comment on above: Order Comment: Speci men Type: BLOOD SPECIMENOrdering Facility: [facility] Address: [address] [place] [address] Performed By: #### 5 8410-2 ####LYN LABORATORYCLIA [id number] [address] [place] Hematocrit (Bld) [Volume fraction] 43.6 % Normal 39.0-51.0 [facility] Comment on above: Order Comment: Speci men Type: BLOOD SPECIMENOrdering Facility: [facility] Address: [address] [place] [address] Performed By: #### 5 8410-2 ####LYN LABORATORYCLIA [id number] [place] [id number] [place] Hemoglobin (Bld) [Mass/Vol] 14.2 g/dL Normal 13.0-17.0 [facility] Comment on above: Order Comment: Speci men Type: BLOOD SPECIMENOrdering Facility: [facility] Address: [address] [place] [address] Performed By: #### 5 8410-2 ####LYN LABORATORYCLIA [id number] [address] MCH (RBC) [Entitic mass] 30.1 pg Normal 26.0-34.0 [facility] Comment on above: Order Comment: Speci men Type: BLOOD SPECIMENOrdering Facility: [facility] Address: [address] [place] [address] Performed By: #### 5 8410-2 ####LYN LABORATORYCLIA [id number] [address] MCHC (RBC) [Mass/Vol] 32.6 g/dL Normal 30.5-36.0 [facility] Comment on above: Order Comment: Speci men Type: BLOOD SPECIMENOrdering Facility: [facility] Address: [address] [place] [address] Performed By: #### 5 8410-2 ####LYN LABORATORYCLIA [id number] [address] MCV (RBC) [Entitic vol] 92.4 fL Normal 80.0-100.0 [facility] Comment on above: Order Comment: Speci men Type: BLOOD SPECIMENOrdering Facility: [facility] Address: [address] [place] [address] Performed By: #### 5 8410-2 ####LYN LABORATORYCLIA [id number] [address] Nucleated RBC (Bld) [#/Vol] 10*3/uL Normal <0.01 [facility] Comment on above: Order Comment: Speci men Type: BLOOD SPECIMENOrdering Facility: [facility] Address: [address] [place] [address] Performed By: #### 5 8410-2 ####LYN LABORATORYCLIA [id number] [address] Platelet mean volume (Bld) [Entitic vol] 11.5 fL Normal 9.0-12.7 [facility] Comment on above: Order Comment: Speci men Type: BLOOD SPECIMENOrdering Facility: [facility] Address: [address] [place] [address] Performed By: #### 5 8410-2 ####LYN LABORATORYCLIA [id number] [address] [place] Platelets (Bld) [#/Vol] 231 10*3/uL Normal 150-400 [facility] Comment on above: Order Comment: Speci men Type: BLOOD SPECIMENOrdering Facility: [facility] Address: [address] [place] [address] Performed By: #### 5 8410-2 ####LYN LABORATORYCLIA [id number] [place] [address] [place] RBC (Bld) [#/Vol] 4.72 10*6/uL Normal 4.20-6.00 [facility] Comment on above: Order Comment: Speci men Type: BLOOD SPECIMENOrdering Facility: [facility] Address: [address] [place] [address] Performed By: #### 5 8410-2 ####LYONS LABORATORYCLIA [id number] [address] STATES OF [facility] WBC (Bld) [#/Vol] 11.83 10*3/uL High 3.70-11.00 [facility] Comment on above: Order Comment: Speci men Type: BLOOD SPECIMENOrdering Facility: [facility] Address: [address] [place] [address] Performed By: #### 5 8410-2 ####LYONS LABORATORYCLIA [id number] [address] [place] CONSULT PROGon 12-30-2022 CONSULT PROG Normal [facility] Comprehensive metabolic 2000 panelon 12-30-2022 Albumin [Mass/Vol] 2.9 g/dL Low 3.9-4.9 [facility] Comment on above: Order Comment: Speci men Type: BLOOD SPECIMENOrdering Facility: [facility] Address: [address] [place] [address] Performed By: #### 2 4323-8, 89938-4 ####LYONS LABORATORYCLIA [id number] [address] [place] ALP [Catalytic activity/Vol] 63 U/L Normal 38-113 [facility] Comment on above: Order Comment: Speci men Type: BLOOD SPECIMENOrdering Facility: [facility] Address: [address] [place] [address] Performed By: #### 2 8, ####LYN LABORATORYCLIA [id number] [place] [address] [place] ALT [Catalytic activity/Vol] U/L Low 10-54 [facility] Comment on above: Order Comment: Speci men Type: BLOOD SPECIMENOrdering Facility: [facility] Address: [address] [place] [address] Performed By: #### 2 8, ####LYN LABORATORYCLIA [id number] [place] [address] [place] Anion gap [Moles/Vol] 10 mmol/L Normal 9-18 [facility] Comment on above: Order Comment: Speci men Type: BLOOD SPECIMENOrdering Facility: [facility] Address: [address] [place] [address] Performed By: #### 2 4322-09, ####LYN LABORATORYCLIA [id number] [place] [address] [place] AST [Catalytic activity/Vol] 10 U/L Low 14-40 [facility] Comment on above: Order Comment: Speci men Type: BLOOD SPECIMENOrdering Facility: [facility] Address: [address] [place] [address] Performed By: #### 2 4322-09, ####LYN LABORATORYCLIA [id number] [place] [address] [place] Bilirubin [Mass/Vol] 0.6 mg/dL Normal 0.2-1.3 [facility] Comment on above: Order Comment: Speci men Type: BLOOD SPECIMENOrdering Facility: [facility] Address: [address] [place] [address] Performed By: #### 2 43204-24, ####LYN LABORATORYCLIA [id number] [place] [address] [place] Calcium [Mass/Vol] 7.9 mg/dL Low 8.5-10.2 [facility] Comment on above: Order Comment: Speci men Type: BLOOD SPECIMENOrdering Facility: [facility] Address: [address] [place] [address] Performed By: #### 2 4323-8, ####LYN LABORATORYCLIA [id number] [place] [address] [place] Chloride [Moles/Vol] 101 mmol/L Normal 97-105 [facility] Comment on above: Order Comment: Speci men Type: BLOOD SPECIMENOrdering Facility: [facility] Address: [address] [place] [address] Performed By: #### 2 4323-8, ####LYN LABORATORYCLIA [id number] [place] [address] [place] CO2 [Moles/Vol] 26 mmol/L Normal 22-30 [facility] Comment on above: Order Comment: Speci men Type: BLOOD SPECIMENOrdering Facility: [facility] Address: [address] [place] [address] Performed By: #### 2 4323-8, ####LYN LABORATORYCLIA [id number] [place] [address] [place] Creatinine [Mass/Vol] 0.60 mg/dL Low 0.73-1.22 [facility] Comment on above: Order Comment: Speci men Type: BLOOD SPECIMENOrdering Facility: [facility] Address: [address] [place] [address] Performed By: #### 2 4323-8, ####LYN LABORATORYCLIA [id number] [place] [address] [place] [facility] [place] Creatinine and Glomerular filtration rate.predicted panel (S/P/Bld) 101 mL/min/1.73m??? Normal >=60 [facility] Comment on above: Order Comment: Speci men Type: BLOOD SPECIMENOrdering Facility: [facility] Address: [address] [place] [address] Result Comment: Daiana mated Glomerular Filtration Rate (eGFR) is calculated using the 2020 CKD-EPI creatinine equation. This equation utilizes serum creatinine, sex, and age as parameters. The creatinine assay has traceable calibration to isotope dilution-mass spectrometry. Refer to KDIGO guidelines for clinical interpretation. In patients with unstable renal function, e.g. those with acute kidney injury, the eGFR may not accurately reflect actual GFR. Performed By: #### 2 43204-24, ####LYN LABORATORYCLIA [id number] [place] [address] [place] Glucose [Mass/Vol] 102 mg/dL High 74-99 [facility] Comment on above: Order Comment: Greer men Type: BLOOD SPECIMENOrdering Facility: [facility] Address: [address] [place] [address] Result Comment: The [place] [employer] (ADA) provides guidance for cutoff values for fasting glucose and random glucose. The ADA defines fasting as no caloric intake for at least 8 hours. Fasting plasma glucose results between 100 to 125 mg/dL indicate increased risk for diabetes (prediabetes).Fasting plasma glucose results greater than or equal to 126 mg/dL meet the criteria for diagnosis of diabetes. In the absence of unequivocal hyperglycemia, results should be confirmed by repeat testing. In a patient with classic symptoms of hyperglycemia or hyperglycemic crisis, random plasma glucose results greater than or equal to 200 mg/dL meet the criteria for diagnosis of diabetes.Reference: Standards of Medical Care in Diabetes 2016, [place] [employer]. Diabetes Care. 2016.39(Suppl 1). Performed By: #### 2 4322-09, ####LYN LABORATORYCLIA [id number] [place] [address] [place] Potassium [Moles/Vol] 3.4 mmol/L Low 3.7-5.1 [facility] Comment on above: Order Comment: Greer tapia Type: BLOOD SPECIMENOrdering Facility: [facility] Address: [address] [place] [address] Performed By: #### 2 4322-09, ####LYN LABORATORYCLIA [id number] [place] [address] [place] Protein [Mass/Vol] 5.2 g/dL Low 6.3-8.0 [facility] Comment on above: Order Comment: Greer tapia Type: BLOOD SPECIMENOrdering Facility: [facility] Address: [address] [place] [id number] Performed By: #### 2 4323-8, ####LYN LABORATORYCLIA [id number] [place] [address] [place] Sodium [Moles/Vol] 137 mmol/L Normal 136-144 [facility] Comment on above: Order Comment: Speci men Type: BLOOD SPECIMENOrdering Facility: [facility] Address: [place] [address] Performed By: #### 2 4323-8, ####LYN LABORATORYCLIA [id number] [place] [id number] [place] Urea nitrogen [Mass/Vol] 13 mg/dL Normal 9-24 [facility] Comment on above: Order Comment: Speci men Type: BLOOD SPECIMENOrdering Facility: [facility] Address: [place] [address] Performed By: #### 2 4323-8, ####LYN LABORATORYCLIA [id number] [place] [id number] [place] Magnesium SerPl-mCncon 12-30 Magnesium [Mass/Vol] 1.9 mg/dL Normal 1.7-2.3 [facility] Comment on above: Order Comment: Speci men Type: BLOOD SPECIMENOrdering Facility: [facility] Address: [address] [place] [address] Performed By: #### 2 4323-8, ####LYN LABORATORYCLIA [id number] [place] [id number] [place] NUTRITIONon 12-30-2022 NUTRITION Normal [facility] THERAPY NTon 12-30-2022 THERAPY NT Normal [facility] THERAPY NT Normal [facility] THERAPY NT Normal [facility] THERAPY NT Normal [facility] THERAPY NT Normal [facility] CBC panel Auto (Bld)on 12-29 Erythrocyte distribution width (RBC) [Ratio] 13.0 % Normal 11.5-15.0 [facility] Comment on above: Order Comment: Speci men Type: BLOOD SPECIMENOrdering Facility: [facility] Address: [address] [place] [address] Performed By: #### 5 8410-2 ####LYN LABORATORYCLIA [id number] [address] Hematocrit (Bld) [Volume fraction] 41.9 % Normal 39.0-51.0 [facility] Comment on above: Order Comment: Speci men Type: BLOOD SPECIMENOrdering Facility: [facility] Address: [address] [place] [address] Performed By: #### 5 8410-2 ####LYN LABORATORYCLIA [id number] [address] Hemoglobin (Bld) [Mass/Vol] 13.9 g/dL Normal 13.0-17.0 [facility] Comment on above: Order Comment: Speci men Type: BLOOD SPECIMENOrdering Facility: [facility] Address: [address] [place] [address] Performed By: #### 5 8410-2 ####LYN LABORATORYCLIA [id number] [address] MCH (RBC) [Entitic mass] 29.8 pg Normal 26.0-34.0 [facility] Comment on above: Order Comment: Speci men Type: BLOOD SPECIMENOrdering Facility: [facility] Address: [address] [place] [address] Performed By: #### 5 8410-2 ####LYN LABORATORYCLIA [id number] [address] MCHC (RBC) [Mass/Vol] 33.2 g/dL Normal 30.5-36.0 [facility] Comment on above: Order Comment: Speci men Type: BLOOD SPECIMENOrdering Facility: [facility] Address: [address] [place] [address] Performed By: #### 5 8410-2 ####LYN LABORATORYCLIA [id number] [address] MCV (RBC) [Entitic vol] 89.9 fL Normal 80.0-100.0 [facility] Comment on above: Order Comment: Speci men Type: BLOOD SPECIMENOrdering Facility: [facility] Address: [address] [place] [address] Performed By: #### 5 8410-2 ####LYN LABORATORYCLIA [id number] [place] [address] [place] Nucleated RBC (Bld) [#/Vol] 10*3/uL Normal <0.01 [facility] Comment on above: Order Comment: Speci men Type: BLOOD SPECIMENOrdering Facility: [facility] Address: [address] [place] [address] Performed By: #### 5 8410-2 ####LYN LABORATORYCLIA [id number] [place] [address] [place] Platelet mean volume (Bld) [Entitic vol] 10.6 fL Normal 9.0-12.7 [facility] Comment on above: Order Comment: Speci men Type: BLOOD SPECIMENOrdering Facility: [facility] Address: [address] [place] [address] Performed By: #### 5 8410-2 ####LYN LABORATORYCLIA [id number] [place] [address] [place] Platelets (Bld) [#/Vol] 254 10*3/uL Normal 150-400 [facility] Comment on above: Order Comment: Speci men Type: BLOOD SPECIMENOrdering Facility: [facility] Address: [address] [place] [address] Performed By: #### 5 8410-2 ####LYN LABORATORYCLIA [id number] [place] [address] [place] RBC (Bld) [#/Vol] 4.66 10*6/uL Normal 4.20-6.00 [facility] Comment on above: Order Comment: Speci men Type: BLOOD SPECIMENOrdering Facility: [facility] Address: [address] [place] [address] Performed By: #### 5 8410-2 ####LYN LABORATORYCLIA [id number] [place] [address] [place] WBC (Bld) [#/Vol] 10.98 10*3/uL Normal 3.70-11.00 [facility] Comment on above: Order Comment: Speci men Type: BLOOD SPECIMENOrdering Facility: [facility] Address: [address] [place] [address] Performed By: #### 5 8410-2 ####LYN LABORATORYCLIA [id number] [place] [address] [place] CONSULT PROGon 12-29-2022 CONSULT PROG Normal [facility] Comprehensive metabolic 2000 panelon 12-29-2022 Albumin [Mass/Vol] 2.6 g/dL Low 3.9-4.9 [facility] Comment on above: Order Comment: Speci men Type: BLOOD SPECIMENOrdering Facility: [facility] Address: [address] [facility] [place] [address] Performed By: #### 2 432-8, ####LYN LABORATORYCLIA [id number] [place] [address] [place] ALP [Catalytic activity/Vol] 56 U/L Normal 38-113 [facility] Comment on above: Order Comment: Speci men Type: BLOOD SPECIMENOrdering Facility: [facility] Address: [address] [place] [address] Performed By: #### 2 4323-8, ####LYN LABORATORYCLIA [id number] [place] [address] [place] ALT [Catalytic activity/Vol] U/L Low 10-54 [facility] Comment on above: Order Comment: Speci men Type: BLOOD SPECIMENOrdering Facility: [facility] Address: [address] [place] [address] Performed By: #### 2 4328, ####LYN LABORATORYCLIA [id number] [place] [address] [place] Anion gap [Moles/Vol] 6 mmol/L Low 9-18 [facility] Comment on above: Order Comment: Speci men Type: BLOOD SPECIMENOrdering Facility: [facility] Address: [address] [facility] [place] [address] Performed By: #### 2 4323-8, ####LYN LABORATORYCLIA [id number] [place] [address] [place] AST [Catalytic activity/Vol] 6 U/L Low 14-40 [facility] Comment on above: Order Comment: Speci men Type: BLOOD SPECIMENOrdering Facility: [facility] Address: [address] [place] [address] Performed By: #### 2 4328, ####LYN LABORATORYCLIA [id number] [place] [address] [place] Bilirubin [Mass/Vol] 0.5 mg/dL Normal 0.2-1.3 [facility] Comment on above: Order Comment: Speci men Type: BLOOD SPECIMENOrdering Facility: [facility] Address: [address] [place] [address] Performed By: #### 2 8, ####LYN LABORATORYCLIA [id number] [place] [address] [place] Calcium [Mass/Vol] 7.8 mg/dL Low 8.5-10.2 [facility] Comment on above: Order Comment: Speci men Type: BLOOD SPECIMENOrdering Facility: [facility] Address: [address] [place] [address] Performed By: #### 2 8, ####LYN LABORATORYCLIA [id number] [place] [address] [place] Chloride [Moles/Vol] 106 mmol/L High 97-105 [facility] Comment on above: Order Comment: Speci men Type: BLOOD SPECIMENOrdering Facility: [facility] Address: [address] [place] [address] Performed By: #### 2 4322-8, ####LYN LABORATORYCLIA [id number] [place] [address] [place] CO2 [Moles/Vol] 27 mmol/L Normal 22-30 [facility] Comment on above: Order Comment: Speci men Type: BLOOD SPECIMENOrdering Facility: [facility] Address: [address] [place] [address] Performed By: #### 2 4322-8, ####LYN LABORATORYCLIA [id number] [place] [id number] [place] Creatinine [Mass/Vol] 0.85 mg/dL Normal 0.73-1.22 [facility] Comment on above: Order Comment: Greer tapia Type: BLOOD SPECIMENOrdering Facility: [facility] Address: [address] [place] [address] Performed By: #### 2 4323-8, ####LYN LABORATORYCLIA [id number] [place] [id number] [place] Creatinine and Glomerular filtration rate.predicted panel (S/P/Bld) 91 mL/min/1.73m??? Normal >=60 [facility] Comment on above: Order Comment: Greer tpaia Type: BLOOD SPECIMENOrdering Facility: [facility] Address: [address] [place] [address] Result Comment: Daiana mated Glomerular Filtration Rate (eGFR) is calculated using the 2020 CKD-EPI creatinine equation. This equation utilizes serum creatinine, sex, and age as parameters. The creatinine assay has traceable calibration to isotope dilution-mass spectrometry. Refer to KDIGO guidelines for clinical interpretation. In patients with unstable renal function, e.g. those with acute kidney injury, the eGFR may not accurately reflect actual GFR. Performed By: #### 2 4323-8, ####RIKI LABORATORYCLIA [id number] [place] [id number] [place] Glucose [Mass/Vol] 133 mg/dL High 74-99 [facility] Comment on above: Order Comment: Greer tapia Type: BLOOD SPECIMENOrdering Facility: [facility] Address: [address] [place] [address] Result Comment: The [place] [employer] (ADA) provides guidance for cutoff values for fasting glucose and random glucose. The ADA defines fasting as no caloric intake for at least 8 hours. Fasting plasma glucose results between 100 to 125 mg/dL indicate increased risk for diabetes (prediabetes).Fasting plasma glucose results greater than or equal to 126 mg/dL meet the criteria for diagnosis of diabetes. In the absence of unequivocal hyperglycemia, results should be confirmed by repeat testing. In a patient with classic symptoms of hyperglycemia or hyperglycemic crisis, random plasma glucose results greater than or equal to 200 mg/dL meet the criteria for diagnosis of diabetes.Reference: Standards of Medical Care in Diabetes 2016, [place] [employer]. Diabetes Care. 2016.39(Suppl 1). Performed By: #### 2 4322-09, ####LYN LABORATORYCLIA [id number] [place] [address] [place] Potassium [Moles/Vol] 3.3 mmol/L Low 3.7-5.1 [facility] Comment on above: Order Comment: Greer tapia Type: BLOOD SPECIMENOrdering Facility: [facility] Address: [address] [place] [address] Performed By: #### 2 4322-09, ####LYN LABORATORYCLIA [id number] [address] [place] Protein [Mass/Vol] 4.7 g/dL Low 6.3-8.0 [facility] Comment on above: Order Comment: Greer tapia Type: BLOOD SPECIMENOrdering Facility: [facility] Address: [address] [place] [address] Performed By: #### 2 4322-09, ####LYN LABORATORYCLIA [id number] [address] [place] Sodium [Moles/Vol] 139 mmol/L Normal 136-144 [facility] Comment on above: Order Comment: Greer tapia Type: BLOOD SPECIMENOrdering Facility: [facility] Address: [address] [place] [address] Performed By: #### 2 4322-09, ####LYN LABORATORYCLIA [id number] [address] [place] Urea nitrogen [Mass/Vol] 17 mg/dL Normal 9-24 [facility] Comment on above: Order Comment: Greer tapia Type: BLOOD SPECIMENOrdering Facility: [facility] Address: [address] [place] [address] Performed By: #### 2 4322-09, ####LYN LABORATORYCLIA [id number] [place] [id number] [place] Magnesium SerPl-mCncon 12-29 Magnesium [Mass/Vol] 1.6 mg/dL Low 1.7-2.3 [facility] Comment on above: Order Comment: Speci men Type: BLOOD SPECIMENOrdering Facility: [facility] Address: [address] [place] [address] Performed By: #### 2 4323-8, 70612-7 ####LYN LABORATORYCLIA [id number] [address] CBC panel Auto (Bld)on 12-28 Erythrocyte distribution width (RBC) [Ratio] 13.0 % Normal 11.5-15.0 [facility] Comment on above: Order Comment: Speci men Type: BLOOD SPECIMENOrdering Facility: [facility] Address: [address] [place] [address] Performed By: #### 5 8410-2 ####LYN LABORATORYCLIA [id number] [address] Hematocrit (Bld) [Volume fraction] 44.1 % Normal 39.0-51.0 [facility] Comment on above: Order Comment: Speci men Type: BLOOD SPECIMENOrdering Facility: [facility] Address: [address] [place] [address] Performed By: #### 5 8410-2 ####LYN LABORATORYCLIA [id number] [address] [place] Hemoglobin (Bld) [Mass/Vol] 15.2 g/dL Normal 13.0-17.0 [facility] Comment on above: Order Comment: Speci men Type: BLOOD SPECIMENOrdering Facility: [facility] Address: [address] [place] [address] Performed By: #### 5 8410-2 ####LYN LABORATORYCLIA [id number] [address] MCH (RBC) [Entitic mass] 31.3 pg Normal 26.0-34.0 [facility] Comment on above: Order Comment: Speci men Type: BLOOD SPECIMENOrdering Facility: [facility] Address: [address] [place] [address] Performed By: #### 5 8410-2 ####LYN LABORATORYCLIA [id number] [place] [address] [place] MCHC (RBC) [Mass/Vol] 34.5 g/dL Normal 30.5-36.0 [facility] Comment on above: Order Comment: Speci men Type: BLOOD SPECIMENOrdering Facility: [facility] Address: [address] [place] [address] Performed By: #### 5 8410-2 ####LYN LABORATORYCLIA [id number] [place] [address] [place] MCV (RBC) [Entitic vol] 90.7 fL Normal 80.0-100.0 [facility] Comment on above: Order Comment: Speci men Type: BLOOD SPECIMENOrdering Facility: [facility] Address: [address] [place] [address] Performed By: #### 5 8410-2 ####LYN LABORATORYCLIA [id number] [address] [place] Nucleated RBC (Bld) [#/Vol] 10*3/uL Normal <0.01 [facility] Comment on above: Order Comment: Speci men Type: BLOOD SPECIMENOrdering Facility: [facility] Address: [address] [place] [address] Performed By: #### 5 8410-2 ####LYN LABORATORYCLIA [id number] [address] [place] Platelet mean volume (Bld) [Entitic vol] 11.0 fL Normal 9.0-12.7 [facility] Comment on above: Order Comment: Speci men Type: BLOOD SPECIMENOrdering Facility: [facility] Address: [address] [place] [address] Performed By: #### 5 8410-2 ####LYN LABORATORYCLIA [id number] [place] [address] [place] Platelets (Bld) [#/Vol] 272 10*3/uL Normal 150-400 [facility] Comment on above: Order Comment: Speci men Type: BLOOD SPECIMENOrdering Facility: [facility] Address: [address] [place] [address] Performed By: #### 5 8410-2 ####LYN LABORATORYCLIA [id number] [address] [place] RBC (Bld) [#/Vol] 4.86 10*6/uL Normal 4.20-6.00 [facility] Comment on above: Order Comment: Speci men Type: BLOOD SPECIMENOrdering Facility: [facility] Address: [address] [place] [address] Performed By: #### 5 8410-2 ####LYN LABORATORYCLIA [id number] [address] WBC (Bld) [#/Vol] 8.37 10*3/uL Normal 3.70-11.00 [facility] Comment on above: Order Comment: Speci men Type: BLOOD SPECIMENOrdering Facility: [facility] Address: [address] [place] [address] Performed By: #### 5 8410-2 ####LYN LABORATORYCLIA [id number] [address] CONSULT PROGon 12-28-2022 CONSULT PROG Normal [facility] Comprehensive metabolic 2000 panelon 12-28-2022 Albumin [Mass/Vol] 3.1 g/dL Low 3.9-4.9 [facility] Comment on above: Order Comment: Speci men Type: BLOOD SPECIMENOrdering Facility: [facility] Address: [address] [place] [address] Performed By: #### 1 9123-9, 34214-4 ####LYN LABORATORYCLIA [id number] [address] OF [facility] ALP [Catalytic activity/Vol] 62 U/L Normal 38-113 [facility] Comment on above: Order Comment: Speci men Type: BLOOD SPECIMENOrdering Facility: [facility] Address: [address] [place] [address] Performed By: #### 1 9123-9, 64803-4 ####LYN LABORATORYCLIA [id number] [address] ALT [Catalytic activity/Vol] U/L Low 10-54 [facility] Comment on above: Order Comment: Speci men Type: BLOOD SPECIMENOrdering Facility: [facility] Address: [place] [address] Performed By: #### 1 9, ####LYN LABORATORYCLIA [id number] [place] [address] [place] Anion gap [Moles/Vol] 7 mmol/L Low 9-18 [facility] Comment on above: Order Comment: Speci men Type: BLOOD SPECIMENOrdering Facility: [facility] Address: [address] [place] [address] Performed By: #### 1 9, ####LYN LABORATORYCLIA [id number] [place] [address] [place] [facility] [place] AST [Catalytic activity/Vol] 7 U/L Low 14-40 [facility] Comment on above: Order Comment: Speci men Type: BLOOD SPECIMENOrdering Facility: [facility] Address: [place] [address] Performed By: #### 1 239, ####LYN LABORATORYCLIA [id number] [address] [place] Bilirubin [Mass/Vol] 0.8 mg/dL Normal 0.2-1.3 [facility] Comment on above: Order Comment: Speci men Type: BLOOD SPECIMENOrdering Facility: [facility] Address: [address] [place] [address] Performed By: #### 1 9, ####LYN LABORATORYCLIA [id number] [place] [address] [place] Calcium [Mass/Vol] 8.2 mg/dL Low 8.5-10.2 [facility] Comment on above: Order Comment: Speci men Type: BLOOD SPECIMENOrdering Facility: [facility] Address: [place] [address] Performed By: #### 1 239, ####LYN LABORATORYCLIA [id number] [place] [address] [place] Chloride [Moles/Vol] 106 mmol/L High 97-105 [facility] Comment on above: Order Comment: Greer tapia Type: BLOOD SPECIMENOrdering Facility: [facility] Address: [address] [place] [address] Performed By: #### 1 23-9, 74631-9 ####LYN LABORATORYCLIA [id number] [address] [place] CO2 [Moles/Vol] 27 mmol/L Normal 22-30 [facility] Comment on above: Order Comment: Madelinei men Type: BLOOD SPECIMENOrdering Facility: [facility] Address: [address] [place] [address] Performed By: #### 1 239, ####LYN LABORATORYCLIA [id number] [address] Creatinine [Mass/Vol] 0.93 mg/dL Normal 0.73-1.22 [facility] Comment on above: Order Comment: Greer men Type: BLOOD SPECIMENOrdering Facility: [facility] Address: [address] [place] [address] Performed By: #### 1 23-9, ####LYN LABORATORYCLIA [id number] [address] Creatinine and Glomerular filtration rate.predicted panel (S/P/Bld) 86 mL/min/1.73m??? Normal >=60 [facility] Comment on above: Order Comment: Greer tapia Type: BLOOD SPECIMENOrdering Facility: [facility] Address: [address] [place] [address] Result Comment: Daiana mated Glomerular Filtration Rate (eGFR) is calculated using the 2020 CKD-EPI creatinine equation. This equation utilizes serum creatinine, sex, and age as parameters. The creatinine assay has traceable calibration to isotope dilution-mass spectrometry. Refer to KDIGO guidelines for clinical interpretation. In patients with unstable renal function, e.g. those with acute kidney injury, the eGFR may not accurately reflect actual GFR. Performed By: #### 1 9123-9, 00782-2 ####LYN LABORATORYCLIA [id number] [place] [address] [place] Glucose [Mass/Vol] 113 mg/dL High 74-99 [facility] Comment on above: Order Comment: Greer tapia Type: BLOOD SPECIMENOrdering Facility: [facility] Address: [address] [place] [address] Result Comment: The [place] [employer] (ADA) provides guidance for cutoff values for fasting glucose and random glucose. The ADA defines fasting as no caloric intake for at least 8 hours. Fasting plasma glucose results between 100 to 125 mg/dL indicate increased risk for diabetes (prediabetes).Fasting plasma glucose results greater than or equal to 126 mg/dL meet the criteria for diagnosis of diabetes. In the absence of unequivocal hyperglycemia, results should be confirmed by repeat testing. In a patient with classic symptoms of hyperglycemia or hyperglycemic crisis, random plasma glucose results greater than or equal to 200 mg/dL meet the criteria for diagnosis of diabetes.Reference: Standards of Medical Care in Diabetes 2016, [place] [employer]. Diabetes Care. 2016.39(Suppl 1). Performed By: #### 1 9123-9, ####LYN LABORATORYCLIA [id number] [place] [address] [place] Potassium [Moles/Vol] 3.5 mmol/L Low 3.7-5.1 [facility] Comment on above: Order Comment: Greer tapia Type: BLOOD SPECIMENOrdering Facility: [facility] Address: [address] [place] [address] Performed By: #### 1 9123-9, ####LYN LABORATORYCLIA [id number] [place] [address] [place] Protein [Mass/Vol] 5.4 g/dL Low 6.3-8.0 [facility] Comment on above: Order Comment: Greer tapia Type: BLOOD SPECIMENOrdering Facility: [facility] Address: [address] [place] [address] Performed By: #### 1 9123-9, ####LYN LABORATORYCLIA [id number] [place] [address] [place] Sodium [Moles/Vol] 140 mmol/L Normal 136-144 [facility] Comment on above: Order Comment: Speci men Type: BLOOD SPECIMENOrdering Facility: [facility] Address: [address] [place] [address] Performed By: #### 1 9123-9, 74365-2 ####LYN LABORATORYCLIA [id number] [place] [id number] [place] Urea nitrogen [Mass/Vol] 15 mg/dL Normal 9-24 [facility] Comment on above: Order Comment: Speci men Type: BLOOD SPECIMENOrdering Facility: [facility] Address: [place] [address] Performed By: #### 1 9123-9, 27361-3 ####LYN LABORATORYCLIA [id number] [place] [id number] [place] Magnesium SerPl-mCncon 12-28 Magnesium [Mass/Vol] 1.7 mg/dL Normal 1.7-2.3 [facility] Comment on above: Order Comment: Speci men Type: BLOOD SPECIMENOrdering Facility: [facility] Address: [address] [place] [address] Performed By: #### 1 9123-9, 20100-0 ####LYN LABORATORYCLIA [id number] [place] [id number] [facility] [place] NURSING PROGon 12-28-2022 NURSING PROG [facility] CASE MANAGEMon 12-27-2022 CASE MANAGEM [facility] CBC panel Auto (Bld)on 12-27 Erythrocyte distribution width (RBC) [Ratio] 13.0 % Normal 11.5-15.0 [facility] Comment on above: Order Comment: Speci men Type: BLOOD SPECIMENOrdering Facility: [facility] Address: [place] [address] Performed By: #### 5 8410-2 ####LYN LABORATORYCLIA [id number] [address] [place] Hematocrit (Bld) [Volume fraction] 42.9 % Normal 39.0-51.0 [facility] Comment on above: Order Comment: Speci men Type: BLOOD SPECIMENOrdering Facility: [facility] Address: [address] [place] [address] Performed By: #### 5 8410-2 ####LYN LABORATORYCLIA [id number] [address] Hemoglobin (Bld) [Mass/Vol] 14.4 g/dL Normal 13.0-17.0 [facility] Comment on above: Order Comment: Speci men Type: BLOOD SPECIMENOrdering Facility: [facility] Address: [address] [place] [address] Performed By: #### 5 8410-2 ####LYN LABORATORYCLIA [id number] [address] MCH (RBC) [Entitic mass] 30.3 pg Normal 26.0-34.0 [facility] Comment on above: Order Comment: Speci men Type: BLOOD SPECIMENOrdering Facility: [facility] Address: [address] [place] [address] Performed By: #### 5 8410-2 ####LYN LABORATORYCLIA [id number] [address] MCHC (RBC) [Mass/Vol] 33.6 g/dL Normal 30.5-36.0 [facility] Comment on above: Order Comment: Speci men Type: BLOOD SPECIMENOrdering Facility: [facility] Address: [address] [place] [address] Performed By: #### 5 8410-2 ####LYN LABORATORYCLIA [id number] [address] MCV (RBC) [Entitic vol] 90.3 fL Normal 80.0-100.0 [facility] Comment on above: Order Comment: Speci men Type: BLOOD SPECIMENOrdering Facility: [facility] Address: [address] [place] [address] Performed By: #### 5 8410-2 ####LYN LABORATORYCLIA [id number] [address] Nucleated RBC (Bld) [#/Vol] 10*3/uL Normal <0.01 [facility] Comment on above: Order Comment: Speci men Type: BLOOD SPECIMENOrdering Facility: [facility] Address: [address] [place] [address], [place] [address] Performed By: #### 5 8410-2 ####LYN LABORATORYCLIA [id number] [place] [address] [place] Platelet mean volume (Bld) [Entitic vol] 10.6 fL Normal 9.0-12.7 [facility] Comment on above: Order Comment: Speci men Type: BLOOD SPECIMENOrdering Facility: [facility] Address: [address] [place] [address] Performed By: #### 5 8410-2 ####LYN LABORATORYCLIA [id number] [place] [address] [place] Platelets (Bld) [#/Vol] 278 10*3/uL Normal 150-400 [facility] Comment on above: Order Comment: Speci men Type: BLOOD SPECIMENOrdering Facility: [facility] Address: [address] [place] [address] Performed By: #### 5 8410-2 ####LYN LABORATORYCLIA [id number] [place] [address] [place] RBC (Bld) [#/Vol] 4.75 10*6/uL Normal 4.20-6.00 [facility] Comment on above: Order Comment: Speci men Type: BLOOD SPECIMENOrdering Facility: [facility] Address: [address] [place] [address] Performed By: #### 5 8410-2 ####LYN LABORATORYCLIA [id number] [place] [address] [place] WBC (Bld) [#/Vol] 9.99 10*3/uL Normal 3.70-11.00 [facility] Comment on above: Order Comment: Speci men Type: BLOOD SPECIMENOrdering Facility: [facility] Address: [address] [place] [address] Performed By: #### 5 8410-2 ####LYN LABORATORYCLIA [id number] [address] [place] Comprehensive metabolic 2000 panelon 12-27-2022 Albumin [Mass/Vol] 3.4 g/dL Low 3.9-4.9 [facility] Comment on above: Order Comment: Speci men Type: BLOOD SPECIMENOrdering Facility: [facility] Address: [address] [place] [address] Performed By: #### 2 4328, ####LYN LABORATORYCLIA [id number] [place] [address] [place] ALP [Catalytic activity/Vol] 60 U/L Normal 38-113 [facility] Comment on above: Order Comment: Speci men Type: BLOOD SPECIMENOrdering Facility: [facility] Address: [address] [place] [address] Performed By: #### 2 8, ####LYN LABORATORYCLIA [id number] [place] [address] [place] ALT [Catalytic activity/Vol] U/L Low 10-54 [facility] Comment on above: Order Comment: Speci men Type: BLOOD SPECIMENOrdering Facility: [facility] Address: [address] [place] [address] Performed By: #### 2 4322-09, ####LYN LABORATORYCLIA [id number] [place] [address] [place] Anion gap [Moles/Vol] 7 mmol/L Low 9-18 [facility] Comment on above: Order Comment: Speci men Type: BLOOD SPECIMENOrdering Facility: [facility] Address: [address] [place] [address] Performed By: #### 2 4328, ####LYN LABORATORYCLIA [id number] [place] [address] [place] AST [Catalytic activity/Vol] 8 U/L Low 14-40 [facility] Comment on above: Order Comment: Speci men Type: BLOOD SPECIMENOrdering Facility: [facility] Address: [address] [place] [address] Performed By: #### 2 432-8, ####LYN LABORATORYCLIA [id number] [place] [address] [place] Bilirubin [Mass/Vol] 0.9 mg/dL Normal 0.2-1.3 [facility] Comment on above: Order Comment: Speci men Type: BLOOD SPECIMENOrdering Facility: [facility] Address: [address] [place] [address] Performed By: #### 2 4328, ####LYN LABORATORYCLIA [id number] [place] [address] [place] Calcium [Mass/Vol] 8.4 mg/dL Low 8.5-10.2 [facility] Comment on above: Order Comment: Speci men Type: BLOOD SPECIMENOrdering Facility: [facility] Address: [address] [place] [address] Performed By: #### 2 4322-09, ####LYN LABORATORYCLIA [id number] [place] [address] [place] Chloride [Moles/Vol] 101 mmol/L Normal 97-105 [facility] Comment on above: Order Comment: Speci men Type: BLOOD SPECIMENOrdering Facility: [facility] Address: [address] [place] [address] Performed By: #### 2 4322-09, ####LYN LABORATORYCLIA [id number] [place] [address] [place] CO2 [Moles/Vol] 28 mmol/L Normal 22-30 [facility] Comment on above: Order Comment: Speci men Type: BLOOD SPECIMENOrdering Facility: [facility] Address: [address] [place] [address] Performed By: #### 2 4322-09, ####LYN LABORATORYCLIA [id number] [place] [address] [place] Creatinine [Mass/Vol] 1.08 mg/dL Normal 0.73-1.22 [facility] Comment on above: Order Comment: Speci men Type: BLOOD SPECIMENOrdering Facility: [facility] Address: [address] [place] [address] Performed By: #### 2 4328, ####LYN LABORATORYCLIA [id number] [place] [address] [place] Creatinine and Glomerular filtration rate.predicted panel (S/P/Bld) 72 mL/min/1.73m??? Normal >=60 [facility] Comment on above: Order Comment: Greer tapia Type: BLOOD SPECIMENOrdering Facility: [facility] Address: [address] [place] [address] Result Comment: [place] mated Glomerular Filtration Rate (eGFR) is calculated using the 2020 CKD-EPI creatinine equation. This equation utilizes serum creatinine, sex, and age as parameters. The creatinine assay has traceable calibration to isotope dilution-mass spectrometry. Refer to KDIGO guidelines for clinical interpretation. In patients with unstable renal function, e.g. those with acute kidney injury, the eGFR may not accurately reflect actual GFR. Performed By: #### 2 4323-8, 02266-4 ####LYN LABORATORYCLIA [id number] [place] [id number] [place] Glucose [Mass/Vol] 65 mg/dL Low 74-99 [facility] Comment on above: Order Comment: Greer tapia Type: BLOOD SPECIMENOrdering Facility: [facility] Address: [address] [place] [address] Result Comment: The [place] Diabetes Association (ADA) provides guidance for cutoff values for fasting glucose and random glucose. The ADA defines fasting as no caloric intake for at least 8 hours. Fasting plasma glucose results between 100 to 125 mg/dL indicate increased risk for diabetes (prediabetes).Fasting plasma glucose results greater than or equal to 126 mg/dL meet the criteria for diagnosis of diabetes. In the absence of unequivocal hyperglycemia, results should be confirmed by repeat testing. In a patient with classic symptoms of hyperglycemia or hyperglycemic crisis, random plasma glucose results greater than or equal to 200 mg/dL meet the criteria for diagnosis of diabetes.Reference: Standards of Medical Care in Diabetes 2016, [place] [employer] Association. Diabetes Care. 2016.39(Suppl 1). Performed By: #### 2 4323-8, 18709-2 ####LYONS LABORATORYCLIA [id number] [place] [id number] [place] Potassium [Moles/Vol] 3.8 mmol/L Normal 3.7-5.1 [facility] Comment on above: Order Comment: Greer tapia Type: BLOOD SPECIMENOrdering Facility: [facility] Address: [place] [address] Performed By: #### 2 4323-8, ####LYN LABORATORYCLIA [id number] [place] [address] [place] Protein [Mass/Vol] 5.6 g/dL Low 6.3-8.0 [facility] Comment on above: Order Comment: Speci men Type: BLOOD SPECIMENOrdering Facility: [facility] Address: [address] [place] [address] Performed By: #### 2 4323-8, ####LYN LABORATORYCLIA [id number] [place] [id number] [place] Sodium [Moles/Vol] 136 mmol/L Normal 136-144 [facility] Comment on above: Order Comment: Speci men Type: BLOOD SPECIMENOrdering Facility: [facility] Address: [address] [place] [address] Performed By: #### 2 43238, ####LYN LABORATORYCLIA [id number] [place] [id number] [place] Urea nitrogen [Mass/Vol] 20 mg/dL Normal 9-24 [facility] Comment on above: Order Comment: Speci men Type: BLOOD SPECIMENOrdering Facility: [facility] Address: [place] [address] Performed By: #### 2 4323-8, ####LYN LABORATORYCLIA [id number] [place] [id number] [place] Magnesium SerPl-mCncon 12-27 Magnesium [Mass/Vol] 1.9 mg/dL Normal 1.7-2.3 [facility] Comment on above: Order Comment: Speci men Type: BLOOD SPECIMENOrdering Facility: [facility] Address: [place] [address] Performed By: #### 2 4323-8, ####LYN LABORATORYCLIA [id number] [place] [address] [place] NUTRITIONon 12-27-2022 NUTRITION Normal [facility] SURGICAL PATHOLOGYon 023 CASE REPORT Normal [facility] Comment on above: Order Comment: Speci men Type: TISSUE SPECIMENOrdering Facility: [facility] Address: [address] [place] [address] Result Comment: Surg ical Pathology Report Case: [id number] Provider: Go Wong MD Collected: 12/27/2022 10:40 AMOrdering Location: [facility] Endoscopy Received: 12/27/2022 12:05 PMPathologist: London Carmichael MDSpecimens: A) - DUODENUM BIOPSY, R/O Celiac B) - STOMACH BIOPSY, R/O H. Pylori Performed By: #### S ####[place] LABORATORYCLIA [id number] [address] LABCLIA [id number] [address] FINAL DIAGNOSIS Normal [facility] Comment on above: Order Comment: Speci men Type: TISSUE SPECIMENOrdering Facility: [facility] Address: [address] [place] [address] Result Comment: A. D uodenum, biopsy:- Duodenal mucosa with no significant pathologic changes.- No evidence of celiac sprue.B. Stomach, biopsy:- Antral and fundic mucosa with minimal chronic inflammation.- No evidence of H. pylori. Performed By: #### S ####[place] LABORATORYCLIA [id number] [address] LABCLIA [id number] [address] OF [facility] FINAL PERFORMING LAB Normal [facility] Comment on above: Order Comment: Speci men Type: TISSUE SPECIMENOrdering Facility: [facility] Address: [address] [place] [address] Result Comment: Diag nostic interpretation performed at [facility], [address] [facility], [place] [address] CLIA# [id number] Director: Piper Berg M.D. Performed By: #### S ####[facility] LABORATORYIA [id number] [address] LABCLIA [id number] [address] [place] GROSS DESCRIPTION Normal [facility] Comment on above: Order Comment: Speci men Type: TISSUE SPECIMENOrdering Facility: [facility] Address: [address] [place] [address] Result Comment: A. D UODENUM BIOPSYReceived in formalin are multiple pieces of rawls, soft tissue aggregating to 0.7 x 0.3 x 0.2 cm. Totally submitted in one cassette.B. STOMACH BIOPSYReceived in formalin are multiple pieces of rawsl, soft tissue aggregating to 0.6 x 0.4 x 0.2 cm. Totally submitted in one cassette.JTS December 27, 2022 4:53 PMGross examination performed at [facility] [place] [address] Performed By: #### S ####[facility] LABORATORYIA [id number] [address] LABIA [id number] [address] [place] Upper GI endoscopyon 023 Upper GI endoscopy Normal [facility] ALLIED HEALTHon 12-26-2022 ALLIED HEALTH [facility] Bacteria Ur Culton 3 Bacteria identified Cx Nom (U) CULTURE, URINE: No growth (<1,000 CFU/ml) [facility] Comment on above: Performed By: #### 6 30-4 ####[facility] LABIA [id number] [place] [address] [place] CASE MGT INIT ASSESon 2022 [facility] CBC panel Auto (Bld)on 12-26 Erythrocyte distribution width (RBC) [Ratio] 13.0 % Normal 11.5-15.0 [facility] Comment on above: Order Comment: Speci men Type: BLOOD SPECIMENOrdering Facility: [facility] Address: [address] [place] [address] Performed By: #### 5 8410-2 ####LYN LABORATORYCLIA [id number] [address] Hematocrit (Bld) [Volume fraction] 42.5 % Normal 39.0-51.0 [facility] Comment on above: Order Comment: Speci men Type: BLOOD SPECIMENOrdering Facility: [facility] Address: [address] [place] [address] Performed By: #### 5 8410-2 ####LYN LABORATORYCLIA [id number] [address] Hemoglobin (Bld) [Mass/Vol] 14.5 g/dL Normal 13.0-17.0 [facility] Comment on above: Order Comment: Speci men Type: BLOOD SPECIMENOrdering Facility: [facility] Address: [address] [place] [address] Performed By: #### 5 8410-2 ####LYN LABORATORYCLIA [id number] [address] MCH (RBC) [Entitic mass] 30.1 pg Normal 26.0-34.0 [facility] Comment on above: Order Comment: Speci men Type: BLOOD SPECIMENOrdering Facility: [facility] Address: [address] [place] [address] Performed By: #### 5 8410-2 ####LYN LABORATORYCLIA [id number] [address] MCHC (RBC) [Mass/Vol] 34.1 g/dL Normal 30.5-36.0 [facility] Comment on above: Order Comment: Speci men Type: BLOOD SPECIMENOrdering Facility: [facility] Address: [address] [place] [address] Performed By: #### 5 8410-2 ####LYN LABORATORYCLIA [id number] [address] MCV (RBC) [Entitic vol] 88.4 fL Normal 80.0-100.0 [facility] Comment on above: Order Comment: Speci men Type: BLOOD SPECIMENOrdering Facility: [facility] Address: [address] [place] [address] Performed By: #### 5 8410-2 ####LYN LABORATORYCLIA [id number] [place] [address] [place] Nucleated RBC (Bld) [#/Vol] 10*3/uL Normal <0.01 [facility] Comment on above: Order Comment: Speci men Type: BLOOD SPECIMENOrdering Facility: [facility] Address: [address] [place] [address] Performed By: #### 5 8410-2 ####LYN LABORATORYCLIA [id number] [place] [address] [place] Platelet mean volume (Bld) [Entitic vol] 11.6 fL Normal 9.0-12.7 [facility] Comment on above: Order Comment: Speci men Type: BLOOD SPECIMENOrdering Facility: [facility] Address: [address] [place] [address] Performed By: #### 5 8410-2 ####LYN LABORATORYCLIA [id number] [place] [address] [place] Platelets (Bld) [#/Vol] 323 10*3/uL Normal 150-400 [facility] Comment on above: Order Comment: Speci men Type: BLOOD SPECIMENOrdering Facility: [facility] Address: [address] [place] [address] Performed By: #### 5 8410-2 ####LYN LABORATORYCLIA [id number] [place] [address] [place] RBC (Bld) [#/Vol] 4.81 10*6/uL Normal 4.20-6.00 [facility] Comment on above: Order Comment: Speci men Type: BLOOD SPECIMENOrdering Facility: [facility] Address: [address] [place] [address] Performed By: #### 5 8410-2 ####LYN LABORATORYCLIA [id number] [place] [address] [place] WBC (Bld) [#/Vol] 11.78 10*3/uL High 3.70-11.00 [facility] Comment on above: Order Comment: Speci men Type: BLOOD SPECIMENOrdering Facility: [facility] Address: [place] [address] Performed By: #### 5 8410-2 ####LYONS LABORATORYCLIA [id number] [place] [address] [place] CONSULTon 12-26-2022 CONSULT Normal [facility] CONSULT Normal [facility] Comprehensive metabolic 2000 panelon 12-26-2022 Albumin [Mass/Vol] 3.3 g/dL Low 3.9-4.9 [facility] Comment on above: Order Comment: Speci men Type: BLOOD SPECIMENOrdering Facility: [facility] Address: [address] [place] [address] Performed By: #### 1 9123-9, 33487-0 ####LYONS LABORATORYCLIA [id number] [place] [address] [place] ALP [Catalytic activity/Vol] 66 U/L Normal 38-113 [facility] Comment on above: Order Comment: Speci men Type: BLOOD SPECIMENOrdering Facility: [facility] Address: [address] [place] [address] Performed By: #### 1 9123-9, 37734-1 ####LYONS LABORATORYCLIA [id number] [address] OF [facility] ALT [Catalytic activity/Vol] U/L Low 10-54 [facility] Comment on above: Order Comment: Speci men Type: BLOOD SPECIMENOrdering Facility: [facility] Address: [address] [place] [address] Performed By: #### 1 9123-9, 65088-3 ####LYN LABORATORYCLIA [id number] [place] [address] [place] [facility] Anion gap [Moles/Vol] 10 mmol/L Normal 9-18 [facility] Comment on above: Order Comment: Speci men Type: BLOOD SPECIMENOrdering Facility: [facility] Address: [address] [place] [address] Performed By: #### 1 23-9, 46532-6 ####LYN LABORATORYCLIA [id number] [place] [address] [place] AST [Catalytic activity/Vol] 10 U/L Low 14-40 [facility] Comment on above: Order Comment: Speci men Type: BLOOD SPECIMENOrdering Facility: [facility] Address: [address] [place] [address] Performed By: #### 1 23-9, 15547-2 ####LYN LABORATORYCLIA [id number] [place] [address] [place] Bilirubin [Mass/Vol] 1.0 mg/dL Normal 0.2-1.3 [facility] Comment on above: Order Comment: Speci men Type: BLOOD SPECIMENOrdering Facility: [facility] Address: [address] [place] [address] Performed By: #### 1 239, ####LNY LABORATORYCLIA [id number] [place] [address] [place] Calcium [Mass/Vol] 8.5 mg/dL Normal 8.5-10.2 [facility] Comment on above: Order Comment: Speci men Type: BLOOD SPECIMENOrdering Facility: [facility] Address: [address] [place] [address] Performed By: #### 1 23-9, 22035-6 ####LYN LABORATORYCLIA [id number] [place] [address] [place] Chloride [Moles/Vol] 101 mmol/L Normal 97-105 [facility] Comment on above: Order Comment: Speci men Type: BLOOD SPECIMENOrdering Facility: [facility] Address: [address] [place] [address] Performed By: #### 1 23-9, ####LYN LABORATORYCLIA [id number] [place] [address] [place] CO2 [Moles/Vol] 25 mmol/L Normal 22-30 [facility] Comment on above: Order Comment: Speci men Type: BLOOD SPECIMENOrdering Facility: [facility] Address: [address] [place] [address] [address] Performed By: #### 1 9123-9, 24472-0 ####LYN LABORATORYCLIA [id number] [place] [id number] [place] Creatinine [Mass/Vol] 0.93 mg/dL Normal 0.73-1.22 [facility] Comment on above: Order Comment: Greer tapia Type: BLOOD SPECIMENOrdering Facility: [facility] Address: [address] [place] [address] Performed By: #### 1 9123-9, 33129-3 ####LYN LABORATORYCLIA [id number] [place] [id number] [place] Creatinine and Glomerular filtration rate.predicted panel (S/P/Bld) 86 mL/min/1.73m??? Normal >=60 [facility] Comment on above: Order Comment: Greer tapia Type: BLOOD SPECIMENOrdering Facility: [facility] Address: [address] [place] [address] Result Comment: Daiana mated Glomerular Filtration Rate (eGFR) is calculated using the 2020 CKD-EPI creatinine equation. This equation utilizes serum creatinine, sex, and age as parameters. The creatinine assay has traceable calibration to isotope dilution-mass spectrometry. Refer to KDIGO guidelines for clinical interpretation. In patients with unstable renal function, e.g. those with acute kidney injury, the eGFR may not accurately reflect actual GFR. Performed By: #### 1 9123-9, 37930-9 ####LYN LABORATORYCLIA [id number] [place] [id number] [place] Glucose [Mass/Vol] 79 mg/dL Normal 74-99 [facility] Comment on above: Order Comment: Greer tapia Type: BLOOD SPECIMENOrdering Facility: [facility] Address: [address] [place] [address] Result Comment: The [place] Diabetes [employer] (ADA) provides guidance for cutoff values for fasting glucose and random glucose. The ADA defines fasting as no caloric intake for at least 8 hours. Fasting plasma glucose results between 100 to 125 mg/dL indicate increased risk for diabetes (prediabetes).Fasting plasma glucose results greater than or equal to 126 mg/dL meet the criteria for diagnosis of diabetes. In the absence of unequivocal hyperglycemia, results should be confirmed by repeat testing. In a patient with classic symptoms of hyperglycemia or hyperglycemic crisis, random plasma glucose results greater than or equal to 200 mg/dL meet the criteria for diagnosis of diabetes.Reference: Standards of Medical Care in Diabetes 2016, [place] [employer]. Diabetes Care. 2016.39(Suppl 1). Performed By: #### 1 239, ####LYN LABORATORYCLIA [id number] [place] [address] [place] Potassium [Moles/Vol] 4.3 mmol/L Normal 3.7-5.1 [facility] Comment on above: Order Comment: Greer tapia Type: BLOOD SPECIMENOrdering Facility: [facility] Address: [address] [place] [address] Performed By: #### 1 9122-10, ####LYN LABORATORYCLIA [id number] [place] [address] [place] Protein [Mass/Vol] 5.9 g/dL Low 6.3-8.0 [facility] Comment on above: Order Comment: Greer tapia Type: BLOOD SPECIMENOrdering Facility: [facility] Address: [address] [place] [address] Performed By: #### 1 9122-10, ####LYN LABORATORYCLIA [id number] [place] [address] [place] Sodium [Moles/Vol] 136 mmol/L Normal 136-144 [facility] Comment on above: Order Comment: Greer tapia Type: BLOOD SPECIMENOrdering Facility: [facility] Address: [address] [place] [address] Performed By: #### 1 9122-10, ####LYN LABORATORYCLIA [id number] [place] [address] [place] Urea nitrogen [Mass/Vol] 21 mg/dL Normal 9-24 [facility] Comment on above: Order Comment: Greer tapia Type: BLOOD SPECIMENOrdering Facility: [facility] Address: [address] [place] [address] Performed By: #### 1 9122-10, ####LYONS LABORATORYCLIA [id number] [place] [address] [facility] [place] Magnesium SerPl-mCncon 12-26 Magnesium [Mass/Vol] 1.8 mg/dL Normal 1.7-2.3 [facility] Comment on above: Order Comment: Speci men Type: BLOOD SPECIMENOrdering Facility: [facility] Address: [address] [place] [address] Performed By: #### 1 9123-9, 88230-1 ####LYONS LABORATORYCLIA [id number] [address] [place] THERAPY NTon 12-26-2022 THERAPY NT Normal [facility] THERAPY NT Normal [facility] THERAPY NT Normal [facility] URINALYSIS, REFLEX MICROSCOP ICon 12-26-2022 Bilirubin Ql (U) Negative Normal Negative [facility] Comment on above: Order Comment: Speci men Type: URINE SPECIMENOrdering Facility: [facility] Address: [address] [place] [address] Performed By: #### L [id number] ####LYONS LABORATORYCLIA [id number] [address] [place] Clarity (Unsp spec) Clear Normal Clear [facility] Comment on above: Order Comment: Speci men Type: URINE SPECIMENOrdering Facility: [facility] Address: [address] [place] [address] Performed By: #### L [id number] ####LYONS LABORATORYCLIA [id number] [address] [place] Color (U) Yellow Normal Yellow [facility] Comment on above: Order Comment: Speci men Type: URINE SPECIMENOrdering Facility: [facility] Address: [address] [place] [address] Performed By: #### L [id number] ####LYONS LABORATORYCLIA [id number] [address] Epithelial cells LM.HPF (Urine sed) [#/Area] Few Normal [facility] Comment on above: Order Comment: Speci men Type: URINE SPECIMENOrdering Facility: [facility] Address: [address] [place], [place] [id number] Performed By: #### L [id number] ####LYN LABORATORYCLIA [id number] [address] Glucose Test strip (U) [Mass/Vol] Negative Normal Negative [facility] Comment on above: Order Comment: Speci men Type: URINE SPECIMENOrdering Facility: [facility] Address: [address] [place] [address] Performed By: #### L [id number] ####LYN LABORATORYCLIA [id number] [address] STATES [facility] Hemoglobin Ql (U) Negative Normal Negative [facility] Comment on above: Order Comment: Speci men Type: URINE SPECIMENOrdering Facility: [facility] Address: [address] [place] [address] Performed By: #### L [id number] ####LYN LABORATORYCLIA [id number] [address] Ketones Ql (U) 1+ Abnormal Negative [facility] Comment on above: Order Comment: Speci men Type: URINE SPECIMENOrdering Facility: [facility] Address: [address] [place] [address] Performed By: #### L [id number] ####LYN LABORATORYCLIA [id number] [address] Leukocyte esterase Test strip Ql (U) Trace Abnormal Negative [facility] Comment on above: Order Comment: Speci men Type: URINE SPECIMENOrdering Facility: [facility] Address: [address] [place] [address] Performed By: #### L [id number] ####LYN LABORATORYCLIA [id number] [address] [place] Nitrite Ql (U) Negative Normal Negative [facility] Comment on above: Order Comment: Speci men Type: URINE SPECIMENOrdering Facility: [facility] Address: [address] [place] [address] Performed By: #### L [id number] ####LYN LABORATORYCLIA [id number] [address] [place] pH (U) 6.0 [pH] Normal 5.0-8.0 [facility] Comment on above: Order Comment: Speci men Type: URINE SPECIMENOrdering Facility: [facility] Address: [address] [place] [address] Performed By: #### L [id number] ####LYN LABORATORYCLIA [id number] [address] Protein (U) [Mass/Vol] 1+ Abnormal Negative [facility] Comment on above: Order Comment: Speci men Type: URINE SPECIMENOrdering Facility: [facility] Address: [address] [place] [address] Performed By: #### L [id number] ####LYN LABORATORYCLIA [id number] [address] RBC LM.HPF (Urine sed) [#/Area] 0-3 /HPF Normal 0-3 /HPF [facility] Comment on above: Order Comment: Speci men Type: URINE SPECIMENOrdering Facility: [facility] Address: [address] [place] [address] Performed By: #### L [id number] ####LYN LABORATORYCLIA [id number] [address] Specific gravity (U) [Rel density] 1.025 Normal 1.005-1.030 [facility] Comment on above: Order Comment: Speci men Type: URINE SPECIMENOrdering Facility: [facility] Address: [address] [place] [address] Performed By: #### L [id number] ####LYN LABORATORYCLIA [id number] [address] Urobilinogen Ql (U) 0.2 EU/dL Normal 0.2-1.0 EU/dL [facility] Comment on above: Order Comment: Speci men Type: URINE SPECIMENOrdering Facility: [facility] Address: [address] [place] [address] Performed By: #### L [id number] ####LYN LABORATORYCLIA [id number] [address] WBC LM.HPF (Urine sed) [#/Area] 0-5 /HPF Normal 0-5 /HPF [facility] Comment on above: Order Comment: Speci men Type: URINE SPECIMENOrdering Facility: [facility] Address: [place] [address] Performed By: #### L [id number] ####LYONS LABORATORYCLIA [id number] [place] [address] [place] XR CHEST 2V FRONTAL/LATon XR CHEST 2V FRONTAL/LAT Normal M [facility] XR MOD BARIUM SWALLOW W SPEE Aspen 12-26-2022 XR MOD BARIUM SWALLOW W SPEECH Normal [facility] Absolute lymphocyte countOrd ered By: Jakob Chino on 12-25-2022 Lymphocytes Auto (Unsp spec) [#/Vol] 1.02 10*3/uL 0.83-4.51 [facility] Basophil percentageOrdered B y: Jakob Chino on 12-25-2022 Basophil percentage 0 SEEN /hpf 0-5 [facility] Basophils/100 WBC (Bld) 0.3 % 0-1 [facility] Chloride [Moles/Vol] 100 mmol/L 98-107 [facility] Eosinophils/100 WBC (Bld) 0.2 % 0-5 [facility] Glucose [Mass/Vol] 97 mg/dL 74-106 [facility] Lactate [Moles/Vol] 1.4 mmol/L 0.4-2.0 [facility] Neutrophils (Bld) [#/Vol] 9.3 10*3/uL 2.0-7.7 [facility] Neutrophils/100 WBC (Bld) 81.7 % 47-70 [facility] Potassium [Moles/Vol] 4.0 mmol/L 3.5-5.1 [facility] Sodium [Moles/Vol] 133 mmol/L 136-145 [facility] WBC (Bld) [#/Vol] 11.4 10*3/uL 4.4-11.0 [facility] Bilirubin Test strip Ql (U)O rdered By: Jakob Chino on 12-25-2022 Bilirubin Ql (U) Negative Negative [facility] Blood erythrocytes count (nu mber/volume)Ordered By: Jakob Chino on 12-25-2022 RBC (Bld) [#/Vol] 5.16 10*6/uL 4.6-6.2 [facility] Blood hemoglobin measurement (mass/volume)Ordered By: Jakob Chino on 12-25-2022 Hemoglobin (Bld) [Mass/Vol] 15.3 g/dL 13.0-16.5 [facility] Blood lymphocytes/100 leukoc ytesOrdered By: Jakob Chino on 12-25-2022 Lymphocytes/100 WBC (Bld) 8.9 % 19-41 [facility] Blood monocytes/100 leukocyt esOrdered By: Jaokb Chino on 12-25-2022 Monocytes/100 WBC (Bld) 8.4 % 0-10 [facility] Blood platelet mean volumeOr dered By: Jakob Chino on 12-25-2022 Platelet mean volume (Bld) [Entitic vol] 11.0 fL 6.2-12.0 [facility] Culture, urineOrdered By: Paulo Chino on 12-25-2022 Bacteria identified Cx Nom (U) Culture exhibits no growth. [facility] Determination of erythrocyte mean corpuscular volume (MCV)Ordered By: Jakob Chino on 12-25-2022 MCV (RBC) [Entitic vol] 91.5 fL 80-94 [facility] HISTORY PHYSICALon 3 HISTORY PHYSICAL Normal [facility] Hematocrit Auto (Bld) [Volum e fraction]Ordered By: Jakob Chino on 12-25-2022 Hematocrit (Bld) [Volume fraction] 47.2 % 40-54 [facility] INR in Blood by Coagulation assayOrdered By: Jakob Chino on 12-25-2022 INR Coag (Bld) [Relative time] 1.2 {INR} [facility] Ketones Test strip Ql (U)Ord ered By: Jakob Chino on 12-25-2022 Ketones Ql (U) 15 mg/dl Negative [facility] Laboratory - Chemistry and C hemistry - challengeOrdered By: Jakob Chino on 12-25-2022 CO2 [Moles/Vol] 30.0 mmol/L 21.0-32.0 [facility] Urea nitrogen/Creatinine [Mass ratio] 16.1 mg/mg 10-20 [facility] Laboratory - CoagulationOrde red By: Jakob Chino on 12-25-2022 aPTT Coag (Bld) [Time] 27.5 s 24.1-36.2 [facility] PT Coag (PPP) [Time] 14.8 s 11.7-14.9 [facility] Laboratory - Hematology and Cell countsOrdered By: Jakob Chino on 12-25-2022 Erythrocyte distribution width (RBC) [Entitic vol] 43.6 fL 35.1-43.9 [facility] Erythrocyte distribution width (RBC) [Ratio] 13.0 % 11.6-14.6 [facility] Immature granulocytes/100 WBC (Bld) 0.500 % 0.0-0.9 [facility] Comment on above: IG% - Immature Granu locytes (promyelocytes, myelocytes and metamyelocytes) > 1% indicates that a LEFT SHIFT is Present. MCH (RBC) [Entitic mass] 29.7 pg 27.0-32.0 [facility] Nucleated RBC/100 WBC (Bld) [Ratio] 0 % 0-5 [facility] MCHC Auto (RBC) [Mass/Vol]Or dered By: Jakob Chino on 12-25-2022 MCHC (RBC) [Mass/Vol] 32.4 g/dL 32-36 [facility] Mucus LM Ql (Urine sed)Order ed By: Jakob Chino on 12-25-2022 Mucus Ql (Urine sed) 0 SEEN /hpf [facility] Nitrite Test strip Ql (U)Ord ered By: Jakob Chino on 12-25-2022 Nitrite Ql (U) Negative Negative [facility] No Panel InformationOrdered By: Jakob Chino on 12-25-2022 Estimated Creatinine Clearance Calc 37.40 ml/min [facility] Estimated GFR (MDRD) Amer 65 mL/min >60 [facility] Comment on above: GFR Calc Estimated GFR (MDRD) Non-Af Amer 54 mL/min >60 [facility] Comment on above: Non- GFR Calc Troponin I High Sensitivity 20 pg/mL 3.0-78.0 [facility] Comment on above: Please Note: New [place] t Units and Gender Specific Reference Ranges. For more information see Policy Stat Procedure [place] High Sensitivity Troponin (TNIH) and attachments. Platelets bldOrdered By: Samaria Chino on 12-25-2022 Platelets (Bld) [#/Vol] 339 10*3/uL 150-450 [facility] Protein Test strip Ql (U)Ord ered By: Jakob Chino on 12-25-2022 Protein Ql (U) 30 mg/dl Negative [facility] Serum or plasma calcium hayden urement (mass/volume)Ordered By: Jakob Chino on 12-25-2022 Calcium [Mass/Vol] 8.7 mg/dL 8.5-10.1 [facility] Serum or plasma creatinine m easurement (mass/volume)Ordered By: Jakob Chino on 12-25-2022 Creatinine [Mass/Vol] 1.37 mg/dL 0.70-1.30 [facility] Comment on above: The validity of the calculated GFR & GFRAA in patients over 70 years has not been determined. Clinical correlation is essential. Serum or plasma urea nitroge n measurement (mass/volume)Ordered By: Jakob Chino on 12-25-2022 Urea nitrogen [Mass/Vol] 22 mg/dL 7-18 [facility] Squamous epithelial cells de tection in urine sediment by light microscopyOrdered By: Jakob Chino on 12-25-2022 Epithelial cells.squamous LM Ql (Urine sed) 0 SEEN /hpf 0-5 [facility] Thin prep Papanicolaou smear with manual screeningOrdered By: Jakob Chino on 12-25-2022 Thin prep Papanicolaou smear with manual screening 3 5-15 [facility] Urine blood detectionOrdered By: Jakob Chino on 12-25-2022 RBC Ql (U) 10 /ul Negative [facility] RBC Ql (U) 0 SEEN /hpf 0-5 [facility] Urine clarityOrdered By: Samaria Chino on 12-25-2022 Clarity (U) Clear Clear [facility] Urine color determinationOrd ered By: Jakob Chino on 12-25-2022 Color (U) Yellow Yellow [facility] Urine glucose detectionOrder ed By: Jakob Chino on 12-25-2022 Glucose Ql (U) Normal mg/dl Normal [facility] Urine leukocyte esterase det ection by dipstickOrdered By: Jakob Chino on 12-25-2022 Leukocyte esterase Test strip Ql (U) 25 /ul Negative [facility] Urine pHOrdered By: Jakob botello on 12-25-2022 pH (U) 6.0 [pH] 5.0 - 8.0 [facility] Urine sediment bacteria coun t by microscopy (number/high power field)Ordered By: Jakob Chino on 12-25-2022 Bacteria LM.HPF (Urine sed) [#/Area] 0 /[HPF] None Seen [facility] Urine specific gravity measu rementOrdered By: Jakob Chino on 12-25-2022 Specific gravity (U) [Rel density] 1.020 1.002-1.030 [facility] Urobilinogen Auto test strip Ql (U)Ordered By: Jakob Chino on 12-25-2022 Urobilinogen Ql (U) 1 mg/dl Normal [facility] Absolute lymphocyte countOrd ered By: Dr. Islas on 07-23-2022 Lymphocytes Auto (Unsp spec) [#/Vol] 0.59 10*3/uL 0.83-4.51 [facility] Basophil percentageOrdered B y: Dr. Islas on 07-23-2022 Lactate [Moles/Vol] 2.3 mmol/L 0.4-2.0 [facility] Comment on above: Critical Result(s) C alled at: 16:52:14 07/23/2022 by: Dary Shen to [facility]. Results read back by same. Basophils/100 WBC (Bld) 0.3 % 0-1 [facility] Bilirubin [Mass/Vol] 0.60 mg/dL 0.20-1.00 [facility] Comment on above: For patients on eltr ombopag therapy, use of Dimension [place] TBIL is not recommended. Chloride [Moles/Vol] 101 mmol/L 98-107 [facility] Eosinophils/100 WBC (Bld) 0.0 % 0-5 [facility] Glucose [Mass/Vol] 123 mg/dL 74-106 [facility] Comment on above: Fasting Glucose resu lt from 100 to 125 mg/dL suggests IMPAIRED HOMEOSTASIS per A.D.A. criteria. Neutrophils (Bld) [#/Vol] 24.8 10*3/uL 2.0-7.7 [facility] Neutrophils/100 WBC (Bld) 93.1 % 47-70 [facility] Potassium [Moles/Vol] 4.3 mmol/L 3.5-5.1 [facility] Comment on above: Slight Hemolysis, Re sult may be falsely increased. Protein [Mass/Vol] 8.3 g/dL 6.4-8.2 [facility] Sodium [Moles/Vol] 136 mmol/L 136-145 [facility] WBC (Bld) [#/Vol] 26.7 10*3/uL 4.4-11.0 [facility] Blood erythrocytes count (nu mber/volume)Ordered By: Dr. Islas on 07-23-2022 RBC (Bld) [#/Vol] 5.63 10*6/uL 4.6-6.2 [facility] Blood hemoglobin measurement (mass/volume)Ordered By: Dr. Islas on 07-23-2022 Hemoglobin (Bld) [Mass/Vol] 17.7 g/dL 13.0-16.5 [facility] Blood lymphocytes/100 leukoc ytesOrdered By: Dr. Islas on 07-23-2022 Lymphocytes/100 WBC (Bld) 2.2 % 19-41 [facility] Blood manual differential co mment interpretation (narrative result)Ordered By: Dr. Islas on 07-23-2022 Manual differential comment Lucian (Bld) [Interp] SCANNED [facility] Blood monocytes/100 leukocyt esOrdered By: Dr. Islas on 07-23-2022 Monocytes/100 WBC (Bld) 3.4 % 0-10 [facility] Blood platelet mean volumeOr dered By: Dr. Islas on 07-23-2022 Platelet mean volume (Bld) [Entitic vol] 10.5 fL 6.2-12.0 [facility] Determination of erythrocyte mean corpuscular volume (MCV)Ordered By: Dr. Islas on 07-23-2022 MCV (RBC) [Entitic vol] 95.4 fL 80-94 [facility] Hematocrit Auto (Bld) [Volum e fraction]Ordered By: Dr. Islas on 07-23-2022 Hematocrit (Bld) [Volume fraction] 53.7 % 40-54 [facility] INR in Blood by Coagulation assayOrdered By: Dr. Islas on 07-23-2022 INR Coag (Bld) [Relative time] 1.4 {INR} [facility] Laboratory - Chemistry and C hemistry - challengeOrdered By: Dr. Islas on 07-23-2022 ALP [Catalytic activity/Vol] 84 U/L 45-117 [facility] ALT [Catalytic activity/Vol] 7 U/L 16-61 [facility] CO2 [Moles/Vol] 27.0 mmol/L 21.0-32.0 [facility] Globulin (S) [Mass/Vol] 4.9 g/dL 2.2-4.2 [facility] Urea nitrogen/Creatinine [Mass ratio] 14.8 mg/mg 10-20 [facility] Laboratory - CoagulationOrde red By: Dr. Islas on 07-23-2022 aPTT Coag (Bld) [Time] 25.4 s 24.1-36.2 [facility] PT Coag (PPP) [Time] 16.9 s 11.7-14.9 [facility] Laboratory - Hematology and Cell countsOrdered By: Dr. Islas on 07-23-2022 Erythrocyte distribution width (RBC) [Entitic vol] 46.9 fL 35.1-43.9 [facility] Erythrocyte distribution width (RBC) [Ratio] 13.3 % 11.6-14.6 [facility] Immature granulocytes/100 WBC (Bld) 1.000 % 0.0-0.9 [facility] Comment on above: IG% - Immature Granu locytes (promyelocytes, myelocytes and metamyelocytes) > 1% indicates that a LEFT SHIFT is Present. MCH (RBC) [Entitic mass] 31.4 pg 27.0-32.0 [facility] Nucleated RBC/100 WBC (Bld) [Ratio] 0 % 0-5 [facility] MCHC Auto (RBC) [Mass/Vol]Or dered By: Dr. Islas on 07-23-2022 MCHC (RBC) [Mass/Vol] 33.0 g/dL 32-36 [facility] No Panel InformationOrdered By: Dr. Islas on 07-23-2022 Estimated Creatinine Clearance Calc 36.98 ml/min [facility] Estimated GFR (MDRD) Amer 57 mL/min >60 [facility] Comment on above: GFR Calc Estimated GFR (MDRD) Non-Af Amer 47 mL/min >60 [facility] Comment on above: Non- GFR Calc Platelets bldOrdered By: Dr. Islas on 07-23-2022 Platelets (Bld) [#/Vol] 277 10*3/uL 150-450 [facility] Serum or plasma albumin hayden urement (mass/volume)Ordered By: Dr. Islas on 07-23-2022 Albumin [Mass/Vol] 3.4 g/dL 3.2-5.0 [facility] Serum or plasma albumin/glob ulin mass ratioOrdered By: Dr. Islas on 07-23-2022 Albumin/Globulin [Mass ratio] 0.7 {ratio} 0.9-2.4 [facility] Serum or plasma calcium hayden urement (mass/volume)Ordered By: Dr. Islas on 07-23-2022 Calcium [Mass/Vol] 9.5 mg/dL 8.5-10.1 [facility] Serum or plasma creatinine m easurement (mass/volume)Ordered By: Dr. Islas on 07-23-2022 Creatinine [Mass/Vol] 1.55 mg/dL 0.70-1.30 [facility] Comment on above: The validity of the calculated GFR & GFRAA in patients over 70 years has not been determined. Clinical correlation is essential. Serum or plasma urea nitroge n measurement (mass/volume)Ordered By: Dr. Islas on 07-23-2022 Urea nitrogen [Mass/Vol] 23 mg/dL 7-18 [facility] Thin prep Papanicolaou smear with manual screeningOrdered By: Dr. Islas on 07-23-2022 Thin prep Papanicolaou smear with manual screening 16 U/L 15-37 [facility] Comment on above: Slight Hemolysis, Re sult may be falsely increased. Thin prep Papanicolaou smear with manual screening 8 5-15 [facility] CBC panel Auto (Bld)on 05-09 Erythrocyte distribution width (RBC) [Ratio] 15.1 % High 11.5 - 15.0 % [facility] Hematocrit (Bld) [Volume fraction] 44.9 % 39.0 - 51.0 % [facility] Hemoglobin (Bld) [Mass/Vol] 14.6 g/dL 13.0 - 17.0 g/dL [facility] MCH (RBC) [Entitic mass] 30.9 pg 26. 0 - 34.0 pg [facility] MCHC (RBC) [Mass/Vol] 32.5 g/dL 30.5 - 36.0 g/dL [facility] MCV (RBC) [Entitic vol] 95.1 fL 80.0 - 100.0 fL [facility] Nucleated RBC (Bld) [#/Vol] <0.01 k/uL [facility] Platelet mean volume (Bld) [Entitic vol] 11.4 fL 9.0 - 12.7 fL [facility] Platelets (Bld) [#/Vol] 229 10*3/uL 150 - 400 k/uL [facility] RBC (Bld) [#/Vol] 4.72 10*6/uL 4.20 - 6.0 0 m/uL [facility] WBC (Bld) [#/Vol] 7.98 10*3/uL 3.70 - 11. 00 k/uL [facility] Comprehensive metabolic 2000 panelon 05-09-2022 Albumin [Mass/Vol] 3.4 g/dL Low 3.9 - 4.9 g/dL [facility] ALP [Catalytic activity/Vol] 78 U/L 38 - 113 U/L [facility] ALT [Catalytic activity/Vol] Low 10 - 54 U/L [facility] Anion gap [Moles/Vol] 8 mmol/L Low 9 - 18 mmol/L [facility] AST [Catalytic activity/Vol] 30 U/L 14 - 40 U/L [facility] Bilirubin [Mass/Vol] 0.5 mg/dL 0.2 - 1 .3 mg/dL [facility] Calcium [Mass/Vol] 9.3 mg/dL 8.5 - 10. 2 mg/dL [facility] Chloride [Moles/Vol] 102 mmol/L 97 - 10 5 mmol/L [facility] CO2 [Moles/Vol] 28 mmol/L 22 - 30 mmol/L [facility] Creatinine [Mass/Vol] 0.96 mg/dL 0.73 - 1.22 mg/dL [facility] Estimated Glomerular Filtration Rate 83 mL/min/1.73m >=60 mL/min/1.73m [facility] Glucose [Mass/Vol] 72 mg/dL Low 74 - 99 mg/dL [facility] Potassium [Moles/Vol] 5.3 mmol/L High 3.7 - 5.1 mmol/L [facility] Protein [Mass/Vol] 6.6 g/dL 6.3 - 8.0 g/dL [facility] Sodium [Moles/Vol] 138 mmol/L 136 - 144 mmol/L [facility] Urea nitrogen [Mass/Vol] 32 mg/dL High 9 - 24 mg/d L [facility] Alpha tocopherol [Mass/Vol]o n 05-06-2022 Beta+gamma tocopherol [Mass/Vol] 0.5 mg/L 0.3 - 3.2 mg/L [facility] CBC panel Auto (Bld)on 05-06 Erythrocyte distribution width (RBC) [Ratio] 15.1 % High 11.5 - 15.0 % [facility] Hematocrit (Bld) [Volume fraction] 45.7 % 39.0 - 51.0 % [facility] Hemoglobin (Bld) [Mass/Vol] 14.7 g/dL 13.0 - 17.0 g/dL [facility] MCH (RBC) [Entitic mass] 30.8 pg 26. 0 - 34.0 pg [facility] MCHC (RBC) [Mass/Vol] 32.2 g/dL 30.5 - 36.0 g/dL [facility] MCV (RBC) [Entitic vol] 95.8 fL 80.0 - 100.0 fL [facility] Nucleated RBC (Bld) [#/Vol] <0.01 k/uL [facility] Platelet mean volume (Bld) [Entitic vol] 11.1 fL 9.0 - 12.7 fL [facility] Platelets (Bld) [#/Vol] 279 10*3/uL 150 - 400 k/uL [facility] RBC (Bld) [#/Vol] 4.77 10*6/uL 4.20 - 6.0 0 m/uL [facility] WBC (Bld) [#/Vol] 8.21 10*3/uL 3.70 - 11. 00 k/uL [facility] Comprehensive metabolic 2000 panelon 05-06-2022 Albumin [Mass/Vol] 3.4 g/dL Low 3.9 - 4.9 g/dL [facility] ALP [Catalytic activity/Vol] 85 U/L 38 - 113 U/L [facility] ALT [Catalytic activity/Vol] Low 10 - 54 U/L [facility] Anion gap [Moles/Vol] 9 mmol/L 9 - 18 mmol/L [facility] AST [Catalytic activity/Vol] 18 U/L 14 - 40 U/L [facility] Bilirubin [Mass/Vol] 0.4 mg/dL 0.2 - 1 .3 mg/dL [facility] Calcium [Mass/Vol] 9.4 mg/dL 8.5 - 10. 2 mg/dL [facility] Chloride [Moles/Vol] 101 mmol/L 97 - 10 5 mmol/L [facility] CO2 [Moles/Vol] 29 mmol/L 22 - 30 mmol/L [facility] Creatinine [Mass/Vol] 0.99 mg/dL 0.73 - 1.22 mg/dL [facility] Estimated Glomerular Filtration Rate 80 mL/min/1.73m >=60 mL/min/1.73m [facility] Glucose [Mass/Vol] 78 mg/dL 74 - 99 mg/dL [facility] Potassium [Moles/Vol] 4.9 mmol/L 3.7 - 5.1 mmol/L [facility] Protein [Mass/Vol] 6.7 g/dL 6.3 - 8.0 g/dL [facility] Sodium [Moles/Vol] 139 mmol/L 136 - 144 mmol/L [facility] Urea nitrogen [Mass/Vol] 30 mg/dL High 9 - 24 mg/d L [facility] MAGNESIUM BLDon 05-06-2022 Magnesium [Mass/Vol] 2.1 mg/dL 1.7 - 2 .3 mg/dL [facility] VITAMIN B6/PYRIDOXINon 05-06 Pyridoxine [Mass/Vol] 20.1 nmol/L 20.0 - 125.0 nmol/L [facility] VITAMIN E/TOCOPHEROLon 05-06 Alpha tocopherol [Mass/Vol] 11.5 mg/L 6.0 - 23.0 mg/L [facility] Nuclear Ab IA Ql (S)on 05-03 XU by EIA, Qual Negative Negative [facility] CBC panel Auto (Bld)on 05-02 Erythrocyte distribution width (RBC) [Ratio] 15.2 % High 11.5 - 15.0 % [facility] Hematocrit (Bld) [Volume fraction] 48.9 % 39.0 - 51.0 % [facility] Hemoglobin (Bld) [Mass/Vol] 15.9 g/dL 13.0 - 17.0 g/dL [facility] MCH (RBC) [Entitic mass] 30.6 pg 26. 0 - 34.0 pg [facility] MCHC (RBC) [Mass/Vol] 32.5 g/dL 30.5 - 36.0 g/dL [facility] MCV (RBC) [Entitic vol] 94.2 fL 80.0 - 100.0 fL [facility] Nucleated RBC (Bld) [#/Vol] <0.01 k/uL [facility] Platelet mean volume (Bld) [Entitic vol] 10.6 fL 9.0 - 12.7 fL [facility] Platelets (Bld) [#/Vol] 291 10*3/uL 150 - 400 k/uL [facility] RBC (Bld) [#/Vol] 5.19 10*6/uL 4.20 - 6.0 0 m/uL [facility] WBC (Bld) [#/Vol] 9.41 10*3/uL 3.70 - 11. 00 k/uL [facility] Comprehensive metabolic 2000 panelon 05-02-2022 Albumin [Mass/Vol] 3.9 g/dL 3.9 - 4.9 g/dL [facility] ALP [Catalytic activity/Vol] 103 U/L 38 - 113 U/L [facility] ALT [Catalytic activity/Vol] Low 10 - 54 U/L [facility] Anion gap [Moles/Vol] 8 mmol/L Low 9 - 18 mmol/L [facility] AST [Catalytic activity/Vol] 22 U/L 14 - 40 U/L [facility] Bilirubin [Mass/Vol] 0.5 mg/dL 0.2 - 1 .3 mg/dL [facility] Calcium [Mass/Vol] 10.1 mg/dL 8.5 - 10. 2 mg/dL [facility] Chloride [Moles/Vol] 100 mmol/L 97 - 10 5 mmol/L [facility] CO2 [Moles/Vol] 31 mmol/L High 22 - 30 mmol/L [facility] Creatinine [Mass/Vol] 0.92 mg/dL 0.73 - 1.22 mg/dL [facility] Estimated Glomerular Filtration Rate 88 mL/min/1.73m >=60 mL/min/1.73m [facility] Glucose [Mass/Vol] 85 mg/dL 74 - 99 mg/dL [facility] Potassium [Moles/Vol] 4.2 mmol/L 3.7 - 5.1 mmol/L [facility] Protein [Mass/Vol] 7.5 g/dL 6.3 - 8.0 g/dL [facility] Sodium [Moles/Vol] 139 mmol/L 136 - 144 mmol/L [facility] Urea nitrogen [Mass/Vol] 23 mg/dL 9 - 24 mg/d L [facility] ESR Westergren method (Bld) [Velocity]on 05-02-2022 ESR (Bld) [Velocity] 8 mm/h 0 - 15 mm/hr [facility] HEP A AB IGMon 05-02-2022 HAV IgM Ql (S) Negative Negative [facility] HEP B CORE AB IGMon 05-03-19 HBV core IgM Ql (S) Negative Negative [facility] HEP B SURF AG [facility] 023 HBV surface Ag Ql (S) Negative Negative [facility] HEP C AB IA W/CONF [facility] HCV Ab Ql (S) Negative Negative [facility] HbA1c (Bld)on 05-02-2022 Average glucose Estimated from glycated hemoglobin (Bld) [Mass/Vol] 114 mg/dL [facility] HbA1c (Bld) [Mass fraction] 5.6 % 4.3 - 5.6 % [facility] T4 FREE/FREE THYROXon 2022 Free T4 [Mass/Vol] 1.1 ng/dL 0.9 - 1.7 ng/dL [facility] TSH BLDon 05-02-2022 TSH Qn 2.860 m[IU]/L 0.270 - 4.200 mIU/L [facility] VITAMIN B12 BLOODon 05-03-19 23 Cobalamin (Vitamin B12) [Mass/Vol] 352 pg/mL 232 - 1,245 pg/mL [facility] Absolute lymphocyte counton 10-08-2021 Lymphocytes Auto (Unsp spec) [#/Vol] 0.61 10*3/uL 0.83-4.51 [facility] Work Phone: Basophil percentageon 2021 Basophils/100 WBC (Bld) 0.3 % 0-1 [facility] Work Phone: Chloride [Moles/Vol] 104 mmol/L 98-107 [facility] Work Phone: Eosinophils/100 WBC (Bld) 0.0 % 0-5 [facility] Work Phone: Glucose [Mass/Vol] 90 mg/dL 74-106 [facility] Work Phone: Neutrophils (Bld) [#/Vol] 9.6 10*3/uL 2.0-7.7 [facility] Work Phone: Neutrophils/100 WBC (Bld) 89.1 % 47-70 [facility] Work Phone: Potassium [Moles/Vol] 3.8 mmol/L 3.5-5.1 [facility] Work Phone: Sodium [Moles/Vol] 136 mmol/L 136-145 [facility] Work Phone: WBC (Bld) [#/Vol] 10.7 10*3/uL 4.4-11.0 [facility] Work Phone: Blood erythrocytes count (nu mber/volume)on 10-08-2021 RBC (Bld) [#/Vol] 4.18 10*6/uL 4.6-6.2 [facility] Work Phone: Blood hemoglobin measurement (mass/volume)on 10-08-2021 Hemoglobin (Bld) [Mass/Vol] 12.8 g/dL 13.0-16.5 [facility] Work Phone: Blood lymphocytes/100 leukoc yteson 10-08-2021 Lymphocytes/100 WBC (Bld) 5.7 % 19-41 [facility] Work Phone: Blood monocytes/100 leukocyt eson 10-08-2021 Monocytes/100 WBC (Bld) 4.4 % 0-10 [facility] Work Phone: Blood platelet mean volumeon 10-08-2021 Platelet mean volume (Bld) [Entitic vol] 10.8 fL 6.2-12.0 [facility] Work Phone: Determination of erythrocyte mean corpuscular volume (MCV)on 10-08-2021 MCV (RBC) [Entitic vol] 91.9 fL 80-94 [facility] Work Phone: Hematocrit Auto (Bld) [Volum e fraction]on 10-08-2021 Hematocrit (Bld) [Volume fraction] 38.4 % 40-54 [facility] Work Phone: Laboratory - Chemistry and C hemistry - challengeon 10-08-2021 CO2 [Moles/Vol] 25.0 mmol/L 21.0-32.0 [facility] Work Phone: Urea nitrogen/Creatinine [Mass ratio] 16.4 mg/mg 10-20 [facility] Work Phone: Laboratory - Hematology and Cell countson 10-08-2021 Erythrocyte distribution width (RBC) [Entitic vol] 48.5 fL 35.1-43.9 [facility] Work Phone: Erythrocyte distribution width (RBC) [Ratio] 14.4 % 11.6-14.6 [facility] Work Phone: Immature granulocytes/100 WBC (Bld) 0.500 % 0.0-0.9 [facility] Work Phone: Comment on above: IG% - Immature Granu locytes (promyelocytes, myelocytes and metamyelocytes) > 1% indicates that a LEFT SHIFT is Present. MCH (RBC) [Entitic mass] 30.6 pg 27.0-32.0 [facility] Work Phone: Nucleated RBC/100 WBC (Bld) [Ratio] 0 % 0-5 [facility] Work Phone: MCHC Auto (RBC) [Mass/Vol]on 10-08-2021 MCHC (RBC) [Mass/Vol] 33.3 g/dL 32-36 [facility] Work Phone: No Panel Informationon 10-08 Methicillin-Resist S.aureus DNA PCR Negative Negative [facility] Work Phone: Estimated Creatinine Clearance Calc 52.19 ml/min [facility] Work Phone: Estimated GFR (MDRD) Amer 84 mL/min >60 [facility] Work Phone: Comment on above: GFR Calc Estimated GFR (MDRD) Non-Af Amer 70 mL/min >60 [facility] Work Phone: Comment on above: Non- GFR Calc Platelets bldon 10-08-2021 Platelets (Bld) [#/Vol] 174 10*3/uL 150-450 [facility] Work Phone: Serum or plasma calcium hayden urement (mass/volume)on 10-08-2021 Calcium [Mass/Vol] 7.8 mg/dL 8.5-10.1 [facility] Work Phone: Serum or plasma creatinine m easurement (mass/volume)on 10-08-2021 Creatinine [Mass/Vol] 1.10 mg/dL 0.70-1.30 [facility] Work Phone: Comment on above: The validity of the calculated GFR & GFRAA in patients over 70 years has not been determined. Clinical correlation is essential. Serum or plasma urea nitroge n measurement (mass/volume)on 10-08-2021 Urea nitrogen [Mass/Vol] 18 mg/dL 7-18 [facility] Work Phone: Thin prep Papanicolaou smear with manual screeningon 10-08-2021 Thin prep Papanicolaou smear with manual screening 7 5-15 [facility] Work Phone: Absolute lymphocyte counton 10-07-2021 Lymphocytes Auto (Unsp spec) [#/Vol] 0.26 10*3/uL 0.83-4.51 [facility] Work Phone: Basophil percentageon 2021 Lactate [Moles/Vol] 3.0 mmol/L 0.4-2.0 [facility] Work Phone: Comment on above: Critical Result(s) C alled at: 18:37:59 10/07/2021 by: ANGIE PORTER TO IZZY ROWLAND. Results read back by same. Basophils/100 WBC (Bld) 0.3 % 0-1 [facility] Work Phone: Bilirubin [Mass/Vol] 1.00 mg/dL 0.20-1.00 [facility] Work Phone: Comment on above: For patients on eltr ombopag therapy, use of Dimension [place] TBIL is not recommended. Chloride [Moles/Vol] 99 mmol/L 98-107 [facility] Work Phone: Eosinophils/100 WBC (Bld) 0.5 % 0-5 [facility] Work Phone: Glucose [Mass/Vol] 93 mg/dL 74-106 [facility] Work Phone: Lactate [Moles/Vol] 3.6 mmol/L 0.4-2.0 [facility] Work Phone: Comment on above: Critical Result(s) C alled at: 13:57:04 10/07/2021 by: Anthony Granados. Colby Campa RN (ER). Results read back by same. Neutrophils (Bld) [#/Vol] 16.0 10*3/uL 2.0-7.7 [facility] Work Phone: Neutrophils/100 WBC (Bld) 93.9 % 47-70 [facility] Work Phone: Potassium [Moles/Vol] 4.3 mmol/L 3.5-5.1 [facility] Work Phone: Protein [Mass/Vol] 8.0 g/dL 6.4-8.2 [facility] Work Phone: Sodium [Moles/Vol] 135 mmol/L 136-145 [facility] Work Phone: [phone] WBC (Bld) [#/Vol] 17.0 10*3/uL 4.4-11.0 [facility] Work Phone: Blood erythrocytes count (nu mber/volume)on 10-07-2021 RBC (Bld) [#/Vol] 5.14 10*6/uL 4.6-6.2 [facility] Work Phone: Blood hemoglobin measurement (mass/volume)on 10-07-2021 Hemoglobin (Bld) [Mass/Vol] 15.7 g/dL 13.0-16.5 [facility] Work Phone: Blood lymphocytes/100 leukoc yteson 10-07-2021 Lymphocytes/100 WBC (Bld) 1.5 % 19-41 [facility] Work Phone: Blood monocytes/100 leukocyt eson 10-07-2021 Monocytes/100 WBC (Bld) 2.6 % 0-10 [facility] Work Phone: Blood platelet adequacy dete ction by light microscopyon 10-07-2021 Platelets LM Ql (Bld) ADEQUATE ADEQ [facility] Work Phone: Blood platelet mean volumeon 10-07-2021 Platelet mean volume (Bld) [Entitic vol] 10.6 fL 6.2-12.0 [facility] Work Phone: Determination of erythrocyte mean corpuscular volume (MCV)on 10-07-2021 MCV (RBC) [Entitic vol] 93.8 fL 80-94 [facility] Work Phone: Direct bilirubinon 2 Bilirubin.direct [Mass/Vol] 0.25 mg/dL 0.00-0.30 [facility] Work Phone: Hematocrit Auto (Bld) [Volum e fraction]on 10-07-2021 Hematocrit (Bld) [Volume fraction] 48.2 % 40-54 [facility] Work Phone: Laboratory - Chemistry and C hemistry - challengeon 10-07-2021 ALP [Catalytic activity/Vol] 86 U/L 45-117 [facility] Work Phone: ALT [Catalytic activity/Vol] 10 U/L 16-61 [facility] Work Phone: CO2 [Moles/Vol] 30.0 mmol/L 21.0-32.0 [facility] Work Phone: Globulin (S) [Mass/Vol] 4.6 g/dL 2.2-4.2 [facility] Work Phone: Urea nitrogen/Creatinine [Mass ratio] 12.9 mg/mg 10-20 [facility] Work Phone: Laboratory - Hematology and Cell countson 10-07-2021 Erythrocyte distribution width (RBC) [Entitic vol] 48.3 fL 35.1-43.9 [facility] Work Phone: Erythrocyte distribution width (RBC) [Ratio] 14.2 % 11.6-14.6 [facility] Work Phone: Immature granulocytes/100 WBC (Bld) 1.200 % 0.0-0.9 [facility] Work Phone: Comment on above: IG% - Immature Granu locytes (promyelocytes, myelocytes and metamyelocytes) > 1% indicates that a LEFT SHIFT is Present. MCH (RBC) [Entitic mass] 30.5 pg 27.0-32.0 [facility] Work Phone: Nucleated RBC/100 WBC (Bld) [Ratio] 0 % 0-5 [facility] Work Phone: MCHC Auto (RBC) [Mass/Vol]on 10-07-2021 MCHC (RBC) [Mass/Vol] 32.6 g/dL 32-36 [facility] Work Phone: No Panel Informationon 10-07 Estimated Creatinine Clearance Calc 41.61 ml/min [facility] Work Phone: Estimated GFR (MDRD) Amer 64 mL/min >60 [facility] Work Phone: Comment on above: GFR Calc Estimated GFR (MDRD) Non-Af Amer 53 mL/min >60 [facility] Work Phone: Comment on above: Non- GFR Calc Platelets bldon 10-07-2021 Platelets (Bld) [#/Vol] 231 10*3/uL 150-450 [facility] Work Phone: RBC morphologyon 10-07-2021 RBC morphology finding Nom (Bld) NORM C+C NORMAL NORM C&C [facility] Work Phone: Serum or plasma albumin hayden urement (mass/volume)on 10-07-2021 Albumin [Mass/Vol] 3.4 g/dL 3.2-5.0 [facility] Work Phone: Serum or plasma calcium hayden urement (mass/volume)on 10-07-2021 Calcium [Mass/Vol] 8.9 mg/dL 8.5-10.1 [facility] Work Phone: Serum or plasma creatinine m easurement (mass/volume)on 10-07-2021 Creatinine [Mass/Vol] 1.39 mg/dL 0.70-1.30 [facility] Work Phone: Comment on above: The validity of the calculated GFR & GFRAA in patients over 70 years has not been determined. Clinical correlation is essential. Serum or plasma urea nitroge n measurement (mass/volume)on 10-07-2021 Urea nitrogen [Mass/Vol] 18 mg/dL 7-18 [facility] Work Phone: Thin prep Papanicolaou smear with manual screeningon 10-07-2021 Thin prep Papanicolaou smear with manual screening 11 U/L 15-37 [facility] Work Phone: Thin prep Papanicolaou smear with manual screening 6 5-15 [facility] Work Phone: [place] [facility] [facility] [facility] KATHARINE LARSEN ([id number]) 1950 M Date Time Provider Department 12/28/20 NIKKIE ARRIAGA SEBASTIEN During your visit today, we recorded the following information about you: Grayson Goodman Gilmore [facility] 12/28/2020 8:08 AM Signed Placed an internal referral to [facility] for a consult with Dr. Dontae Damon. 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 - amantadine HCl (SYMMETREL) 100 mg capsule Take 1 capsule by mouth twice daily. - carbidopa-levodopa (RYTARY) 36.25-145 mg capsule 4 capsules at 8AM, and 4 capsules at 1PM, and at 6PM. - levodopa (INBRIJA) 42 mg (Discontinued) Inhale 2 capsules as instructed as needed. Take as needed up to 5 times daily - rasagiline (AZILECT) 1 mg tab Take 1 tablet by mouth once daily. - senna (SENOKOT) 8.6 mg tab TAKE 1 tablet BID - aspirin, enteric coated (ADULT LOW DOSE ASPIRIN) 81 mg EC tablet Take 1 tablet by mouth once daily. - tamsulosin (FLOMAX) 0.4 mg cp24 Take 1 capsule by mouth once daily. 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 Larsen for follow up today. He is a 70 year old left-handed male with a history of Parkinson's disease complicated by motor fluctuations and dyskinesia since 2012. He is seen with his . Subjective Previous Plan-07/28/2020 Visit: ? Parkinson's disease - I have placed orders for Inbrija for you. Use 2 capsules in the inhaler as needed up to 5 times daily. Use in time periods where you wear off significantly between Rytary doses. ? Deconditioinng - I am ordering PT Interval History Botox helping both foot dystonia. Dyskinesias start after first dose of Rytary and last most of the day. Describes it as bothersome and annoying. Mostly dyskinesia in the legs. Worst time for dyskinesia is when he wakes up at night about 2 hours after he takes Sinemet 25/100 at bedtime. Has not tried Inbrija yet. Started drooling around dinner time. Parkinson's symptoms are controlled. Medications last dose to dose. Fell and fractured 4 ribs. Parkinson's Medication Schedule - as of the start of the visit: 8AM 100AM 600PM Bedtime Rytary 145 4 4 4 Sinemet 25/100mg 1 rasagiline 1.0 mg 1 Amantadine 100 mg 1 1 Parkinson's Motor Complications Medication benefit onset: 30 minutes Medication duration: 4 hours Wearing off: yes Painful off-state dystonia: yes Dyskinesia: yes Prior Anti-Parkinson Therapies Amantadine IR Carbidopa/Levodopa ER (Rytary) Rasagiline ALLERGIES Allergen Reactions - Penicillins Unknown Current Outpatient Medications Medication Sig - carbidopa-levodopa CR (SINEMET CR) 25-100 mg per tablet Take 1 tablet by mouth daily at bedtime. - amantadine HCl (SYMMETREL) 100 mg capsule Take 1 capsule by mouth twice daily. - carbidopa-levodopa (RYTARY) 36.25-145 mg capsule 4 capsules at 8AM, and 4 capsules at 1PM, and at 6PM. (Patient taking differently: 4 capsules four times daily. 4 capsules at 8AM, and 4 capsules at 1PM, and at 6PM. ) - rasagiline (AZILECT) 1 mg tab Take 1 tablet by mouth once daily. - senna (SENOKOT) 8.6 mg tab TAKE 1 tablet BID - aspirin, enteric coated (ADULT LOW DOSE ASPIRIN) 81 mg EC tablet Take 1 tablet by mouth once daily. - tamsulosin (FLOMAX) 0.4 mg cp24 Take 1 capsule by mouth once daily. No current facility-administered medications for this visit. Objective Vital Signs: Ht 170.2 cm (5' 7) Wt 61.2 kg (135 lb) BMI 21.14 kg/m? General Physical Examination: He is accompanied by his spouse. General: Awake, alert, interactive, no acute distress, good nutritional status, normal development, well-kept man. Dyskinesias in the legs. Movement Disorders Scales Performed: MDS-UPDRS Motor subscale condition of exam Medication Off/On/Naiive Time of UPDRS Time of Last Medication Last Medication Taken DBS Right DBS Left MDS-UPDRS Motor subscale scores Speech Facial Expression Rigidity Neck Rigidity Right Upper Extremity Rigidity Left Upper Extremity Rigidity Right Lower Extremity Rigidity Left Lower Extremity Finger Taps Right Finger Taps Left Hand Movements Right Hand Movements Left Arm Movements Right Arm Movements Left Toe Taps Right Toe Taps Left Leg Agility Right Leg Agility Left Arise From Chair Gait Gait Freezing Posture Stability Posture Body Bradykinesia Postural Tremor Hand Right Postural Tremor Hand Left Kinetic Tremor Right Kinetic Tremor Left Rest Tremor Amplitude Right Upper Extremity Rest Tremor Amplitude Left Upper Extremity Rest Tremor Amplitude Right Lower Extremity Rest Tremor Amplitude Right Lower Extremity Rest Tremor Amplitude Lip/Jaw Rest Tremor Constancy MDS-UPDRS Motor subscale totals Left Total Right Total Midline Total Tremor Total / 10 PIGD Total / 3 Overall Total % Change Compared to Last Filed Total Assessment and Plan: Assessment Mr. Larsen is a left-handed 70 year old male with idiopathic Parkinson's disease. The following are the current problems noted and addressed during this visit: Parkinson's disease (hcc) (primary encounter diagnosis) Dystonia of foot Memory loss Neurologic gait dysfunction Falls frequently Plan 12/27/2020 Visit: ? Parkinson's Disease - Decrease Rytary to 4 capsules at 8a, 3 caps at 1p, 3 caps at 6p, 1 cap at 1p. ? STOP bedtime Sinemet 25/100 ? Attention concerns - Neuropsychological testing. ? Balance issues/falls: Physical therapy order. IUpdated Parkinson's Medication Schedu (more content not included)... Normal [facility] Comprehensive Metabolic Pane qiana 06-09-2018 ALT enzyme act/vol U/L Normal 0-40 [facility] Albumin mass conc 3.7 g/dL Normal 3.5-5.2 [facility] ALP enzyme act/vol 85 U/L Normal 40-129 [facility] Anion gap molar conc 14 mmol/L Normal 7-16 [facility] AST enzyme act/vol 19 U/L Normal 0-39 [facility] Bilirubin mass conc 0.2 mg/dL Normal 0.0-1.2 [facility] Calcium mass conc 9.4 mg/dL Normal 8.6-10.2 [facility] Chloride molar conc 99 mmol/L Normal 98-107 [facility] CO2 molar conc 23 mmol/L Normal 22-29 [facility] Creatinine mass conc 1.2 mg/dL Normal 0.7-1.2 [facility] GFR/1.73 sq M predicted among blacks MDRD vol rate/area (S/P/Bld) mL/min/{1.73_m2} Normal [facility] GFR/1.73 sq M predicted among non-blacks MDRD vol rate/area (S/P/Bld) 60 mL/min/{1.73_m2} Normal >=60 [facility] Comment on above: Result Comment: [employer] Kiss [employer] vijay Kidney Disease: less than 60 ml/min/1.73 sq.m. Kidney Failure: less than 15 ml/min/1.73 sq.m. Results valid for patients 18 years and older. Glucose mass conc 100 mg/dL High 74-99 [facility] Potassium molar conc 4.9 mmol/L Normal 3.5-5.0 [facility] Protein mass conc 7.7 g/dL Normal 6.4-8.3 [facility] Sodium molar conc 136 mmol/L Normal 132-146 [facility] Urea nitrogen mass conc 15 mg/dL Normal 8-23 [facility] Lipid Panelon 06-09-2018 Cholesterol in HDL mass conc 49 mg/dL Normal >40 [facility] Cholesterol in LDL mass conc 69 mg/dL Normal 0-99 [facility] Cholesterol mass conc 150 mg/dL Normal 0-199 [facility] Triglyceride mass conc 159 mg/dL High 0-149 [facility] VLDL Cholesterol (Calculated) 32 mg/dL Normal [facility] UR Microalbumin/Creatinine R atio Randomon 06-09-2018 Microalbumin/Creatinine Ratio 14.4 Normal 0.0-30.0 [facility] UR Creatinine Random 180 mg/dL Normal 40-278 [facility] UR Microalbumin Random 26.0 mg/L High Not Established [facility] Progress Noteon 05-05-2017 HIM IP Note OR Software Requirements Engineer Normal [facility] HIM IP Note OR Software Requirements Engineer Normal [facility] Bacteria identified Cx Nom ( Wound) Wound Culture Negative [facility] Work Phone: Gram stain for investigation of transfusion reaction Microscopic observation Gram stain Nom (Unsp spec) [facility] Work Phone: Laboratory - Microbiology an d Antimicrobial susceptibility Bacteria identified Cx Nom (Bld) No growth in 5 days. [facility] Work Phone: Vital Signs Date Time Vital Sign Value Performing Clinician Facility 07-22-2024 10:13-0400 Body height 170.2 cm Taisha John KEG INSPECTOR.DOUGH MIXING MACHINE OPERATOR Work Phone: [facility] 07-22-2024 10:13-0400 Diastolic blood pressure 84 mm[Hg] Taisha John KEG INSPECTOR.DOUGH MIXING MACHINE OPERATOR Work Phone: [facility] 07-22-2024 10:13-0400 Heart rate 96 /min Taisha John KEG INSPECTOR.DOUGH MIXING MACHINE OPERATOR Work Phone: [facility] 07-22-2024 10:13-0400 SaO2% (BldA) [Mass fraction] 98 % Taisha John KEG INSPECTOR.DOUGH MIXING MACHINE OPERATOR Work Phone: [facility] 07-22-2024 10:13-0400 Systolic blood pressure 130 mm[Hg] Taisha John KEG INSPECTOR.DOUGH MIXING MACHINE OPERATOR Work Phone: [facility] 07-02-2024 11:00-0400 Diastolic blood pressure 97 mm[Hg] Carolina Damon MD Work Phone: [facility] 07-02-2024 11:00-0400 Heart rate 81 /min Carolina Damon MD Work Phone: [facility] 07-02-2024 11:00-0400 SaO2% (BldA) [Mass fraction] 95 % Carolina Damon MD Work Phone: [facility] 07-02-2024 11:00-0400 Systolic blood pressure 161 mm[Hg] Carolina Damon MD Work Phone: [facility] 04-02-2024 09:39-0500 Diastolic blood pressure 105 mm[Hg] Carolina Damon MD Work Phone: [facility] 04-02-2024 09:39-0500 Heart rate 88 /min Carolina Damon MD Work Phone: [facility] 04-02-2024 09:39-0500 SaO2% (BldA) [Mass fraction] 96 % Carolina Damon MD Work Phone: [facility] 04-02-2024 09:39-0500 Systolic blood pressure 172 mm[Hg] Carolina Damon MD Work Phone: [facility] 03-16-2024 15:37-0500 Body height 170.2 cm Taisha John KEG INSPECTOR.DOUGH MIXING MACHINE OPERATOR Work Phone: [facility] 03-16-2024 15:37-0500 Diastolic blood pressure 87 mm[Hg] Taisha John KEG INSPECTOR.DOUGH MIXING MACHINE OPERATOR Work Phone: [facility] 03-16-2024 15:37-0500 Heart rate 95 /min Taisha John KEG INSPECTOR.DOUGH MIXING MACHINE OPERATOR Work Phone: [facility] 03-16-2024 15:37-0500 SaO2% (BldA) [Mass fraction] 99 % Taisha John KEG INSPECTOR.DOUGH MIXING MACHINE OPERATOR Work Phone: [facility] 03-16-2024 15:37-0500 Systolic blood pressure 139 mm[Hg] Taisha John KEG INSPECTOR.DOUGH MIXING MACHINE OPERATOR Work Phone: [facility] 11-14-2023 10:18-0400 Diastolic blood pressure 93 mm[Hg] Carolina Damon MD Work Phone: [facility] 11-14-2023 10:18-0400 Heart rate 65 /min Carolina Damon MD Work Phone: [facility] 11-14-2023 10:18-0400 SaO2% (BldA) [Mass fraction] 99 % Carolina Damon MD Work Phone: [facility] 11-14-2023 10:18-0400 Systolic blood pressure 158 mm[Hg] Carolina Damon MD Work Phone: [facility] 11-07-2023 09:10-0400 Diastolic blood pressure 101 mm[Hg] Taisha John KEG INSPECTOR.DOUGH MIXING MACHINE OPERATOR Work Phone: [facility] 11-07-2023 09:10-0400 Heart rate 80 /min Taisha John APRN.DOUGH MIXING MACHINE OPERATOR Work Phone: [facility] 11-07-2023 09:10-0400 Systolic blood pressure 160 mm[Hg] Taisha John APRN.DOUGH MIXING MACHINE OPERATOR Work Phone: [facility] 11-07-2023 07:57-0400 SaO2% (BldA) [Mass fraction] 98 % Taisha John APRN.DOUGH MIXING MACHINE OPERATOR Work Phone: [facility] 07-18-2023 12:14-0400 Diastolic blood pressure 79 mm[Hg] Carolina Damon MD Work Phone: [facility] 07-18-2023 12:14-0400 Heart rate 78 /min Carolina Damon MD Work Phone: [facility] 07-18-2023 12:14-0400 SaO2% (BldA) [Mass fraction] 100 % Carolina Damon MD Work Phone: [facility] 07-18-2023 12:14-0400 Systolic blood pressure 153 mm[Hg] Carolina Damon MD Work Phone: [facility] 07-17-2023 08:27-0400 Body mass index (BMI) [Ratio] 18.23 kg/m2 Juan R John MD Work Phone: [facility] 07-17-2023 08:27-0400 Body weight 52.8 kg Juan R John MD Work Phone: [facility] 07-17-2023 08:27-0400 Diastolic blood pressure 111 mm[Hg] Juan R John MD Work Phone: [facility] 07-17-2023 08:27-0400 Heart rate 79 /min Juan R John MD Work Phone: [facility] 07-17-2023 08:27-0400 Respiratory rate 16 /min Juan R John MD Work Phone: [facility] 07-17-2023 08:27-0400 SaO2% (BldA) [Mass fraction] 97 % Juan R John MD Work Phone: [facility] 07-17-2023 08:27-0400 Systolic blood pressure 175 mm[Hg] Juan R John MD Work Phone: [facility] 03-19-2023 10:10-0500 Body temperature 97.8 [degF] Dr. Nico Schmidt Work Phone: [facility] 03-19-2023 10:10-0500 Diastolic blood pressure 86 mm[Hg] Dr. Nico Schmidt Work Phone: [facility] 03-19-2023 10:10-0500 Heart rate 83 /min Dr. Nico Schmidt Work Phone: [facility] 03-19-2023 10:10-0500 Respiratory rate 18 /min Dr. Nico Schmidt Work Phone: [facility] 03-19-2023 10:10-0500 SaO2% (BldA) [Mass fraction] 95 % Dr. Nico Schmidt Work Phone: [facility] 03-19-2023 10:10-0500 Systolic blood pressure 146 mm[Hg] Dr. Nico Schmidt Work Phone: [facility] 03-18-2023 12:15-0500 Body mass index (BMI) [Ratio] 19.9 kg/m2 Dr. Nico Schmidt Work Phone: [facility] 03-18-2023 12:15-0500 Body weight 57.[address] Nico Schmidt Work Phone: [facility] 03-14-2023 09:06-0500 Body height [address] Nico Schmidt Work Phone: [facility] 02-01-2023 10:00-0500 Heart rate 72 /min Dr. Nico Schmidt Work Phone: [facility] 02-01-2023 10:00-0500 SaO2% (BldA) [Mass fraction] 100 % Dr. Nico Schmidt Work Phone: [facility] 02-01-2023 09:11-0500 Body temperature 98.6 [degF] Dr. Nico Schmidt Work Phone: [facility] 02-01-2023 09:11-0500 Diastolic blood pressure 53 mm[Hg] Dr. Nico Schmidt Work Phone: [facility] 02-01-2023 09:11-0500 Respiratory rate 16 /min Dr. Nico Schmidt Work Phone: [facility] 02-01-2023 09:11-0500 Systolic blood pressure 116 mm[Hg] Dr. Nico Schmidt Work Phone: [facility] 02-01-2023 06:54-0500 Body mass index (BMI) [Ratio] 18.2 kg/m2 Dr. Nico Schmidt Work Phone: [facility] 02-01-2023 06:54-0500 Body weight 52.[address] Nico Schmidt Work Phone: [facility] 01-29-2023 14:13-0500 Body height 170.[address] Nico Schmidt Work Phone: [facility] 01-15-2023 22:21-0500 Inhaled oxygen flow rate 1 L/min Dr. Nico Schmidt Work Phone: [facility] 12-25-2022 19:35-0500 Diastolic blood pressure 91 mm[Hg] [facility] 12-25-2022 19:35-0500 Heart rate 81 /min [facility] 12-25-2022 19:35-0500 Respiratory rate 14 /min [facility] 12-25-2022 19:35-0500 SaO2% (BldA) [Mass fraction] 99 % [facility] 12-25-2022 19:35-0500 Systolic blood pressure 147 mm[Hg] [facility] 12-25-2022 13:40-0500 Body height 170.18 cm [facility] 12-25-2022 13:40-0500 Body mass index (BMI) [Ratio] 19.3 kg/m2 [facility] 12-25-2022 13:40-0500 Body temperature 98.2 [degF] [facility] 12-25-2022 13:40-0500 Body weight 55.9 kg [facility] 09-20-2022 09:25-0400 Diastolic blood pressure 79 mm[Hg] Carolina Damon MD Work Phone: [facility] 09-20-2022 09:25-0400 Heart rate 90 /min Carolina Damon MD Work Phone: [facility] 09-20-2022 09:25-0400 Systolic blood pressure 120 mm[Hg] Carolina Damon MD Work Phone: [facility] 09-20-2022 08:52-0400 Body height 172.7 cm Carolina Damon MD Work Phone: [facility] 09-20-2022 08:52-0400 Body weight 58.42 kg Carolina Damon MD Work Phone: [facility] 09-20-2022 08:52-0400 SaO2% (BldA) [Mass fraction] 98 % Carolina Damon MD Work Phone: [facility] 07-23-2022 18:00-0400 Body temperature 99.3 [degF] [facility] 07-23-2022 18:00-0400 Diastolic blood pressure 71 mm[Hg] [facility] 07-23-2022 18:00-0400 Heart rate 96 /min [facility] 07-23-2022 18:00-0400 Respiratory rate 31 /min [facility] 07-23-2022 18:00-0400 SaO2% (BldA) [Mass fraction] 95 % [facility] 07-23-2022 18:00-0400 Systolic blood pressure 133 mm[Hg] [facility] 07-23-2022 14:27-0400 Body height 172.72 cm [facility] 07-23-2022 14:27-0400 Body mass index (BMI) [Ratio] 20.6 kg/m2 [facility] 07-23-2022 14:27-0400 Body weight 61.6 kg [facility] 04-24-2022 14:39-0500 Diastolic blood pressure 89 mm[Hg] Luther Vega MD Work Phone: [facility] 04-24-2022 14:39-0500 Heart rate 91 /min Luther Vega MD Work Phone: [facility] 04-24-2022 14:39-0500 Respiratory rate 16 /min Luther Vega MD Work Phone: [facility] 04-24-2022 14:39-0500 SaO2% (BldA) [Mass fraction] 99 % Luther Vega MD Work Phone: [facility] 04-24-2022 14:39-0500 Systolic blood pressure 145 mm[Hg] Luther Vega MD Work Phone: [facility] 04-02-2022 15:32-0500 Diastolic blood pressure 91 mm[Hg] Carolina Damon MD Work Phone: [facility] 04-02-2022 15:32-0500 Heart rate 84 /min Carolina Damon MD Work Phone: [facility] 04-02-2022 15:32-0500 SaO2% (BldA) [Mass fraction] 99 % Carolina Damon MD Work Phone: [facility] 04-02-2022 15:32-0500 Systolic blood pressure 151 mm[Hg] Carolina Damon MD Work Phone: [facility] 03-25-2022 18:33-0500 Body height 172.72 cm [facility] 03-25-2022 18:33-0500 Body mass index (BMI) [Ratio] 18.2 kg/m2 [facility] 03-25-2022 18:33-0500 Body temperature 98 [degF] [facility] 03-25-2022 18:33-0500 Body weight 54.43 kg [facility] 03-25-2022 18:33-0500 Diastolic blood pressure 82 mm[Hg] [facility] 03-25-2022 18:33-0500 Heart rate 94 /min [facility] 03-25-2022 18:33-0500 Respiratory rate 14 /min [facility] 03-25-2022 18:33-0500 SaO2% (BldA) [Mass fraction] 100 % [facility] 03-25-2022 18:33-0500 Systolic blood pressure 131 mm[Hg] [facility] 02-26-2022 10:59-0500 Body height 174 cm Carolina Damon MD Work Phone: [facility] 02-26-2022 10:59-0500 Body weight 55.61 kg Carolina Damon MD Work Phone: [facility] 02-26-2022 10:59-0500 Diastolic blood pressure 77 mm[Hg] Carolina Damon MD Work Phone: [facility] 02-26-2022 10:59-0500 Heart rate 79 /min Carolina Damon MD Work Phone: [facility] 02-26-2022 10:59-0500 SaO2% (BldA) [Mass fraction] 99 % Carolina Damon MD Work Phone: [facility] 02-26-2022 10:59-0500 Systolic blood pressure 132 mm[Hg] Carolina Damon MD Work Phone: [facility] 02-14-2022 16:16-0500 Body height 172.7 cm Juan R John MD Work Phone: [facility] 02-14-2022 16:16-0500 Body weight 54.7 kg Juan R John MD Work Phone: [facility] 02-14-2022 16:16-0500 Diastolic blood pressure 92 mm[Hg] Juan R John MD Work Phone: [facility] 02-14-2022 16:16-0500 Heart rate 87 /min Juan R John MD Work Phone: [facility] 02-14-2022 16:16-0500 SaO2% (BldA) [Mass fraction] 99 % Juan R John MD Work Phone: [facility] 02-14-2022 16:16-0500 Systolic blood pressure 131 mm[Hg] Juan R John MD Work Phone: [facility] 10-09-2021 10:40-0400 Body temperature 98.7 [degF] [facility] Work Phone: 10-09-2021 10:40-0400 Diastolic blood pressure 71 mm[Hg] [facility] Work Phone: 10-09-2021 10:40-0400 Heart rate 79 /min [facility] Work Phone: 10-09-2021 10:40-0400 Respiratory rate 18 /min [facility] Work Phone: 10-09-2021 10:40-0400 SaO2% (BldA) [Mass fraction] 98 % [facility] Work Phone: 10-09-2021 10:40-0400 Systolic blood pressure 124 mm[Hg] [facility] Work Phone: 10-09-2021 04:40-0400 Body temperature 99.3 [degF] [facility] Work Phone: 10-09-2021 04:40-0400 Diastolic blood pressure 85 mm[Hg] [facility] Work Phone: 10-09-2021 04:40-0400 Heart rate 78 /min [facility] Work Phone: 10-09-2021 04:40-0400 Respiratory rate 18 /min [facility] Work Phone: 10-09-2021 04:40-0400 SaO2% (BldA) [Mass fraction] 100 % [facility] Work Phone: 10-09-2021 04:40-0400 Systolic blood pressure 141 mm[Hg] Nico [facility] Work Phone: 10-07-2021 16:03-0400 Body height 172.72 cm Nico [facility] Work Phone: 10-07-2021 16:03-0400 Body mass index (BMI) [Ratio] 20.3 kg/m2 Nico [facility] Work Phone: 10-07-2021 16:03-0400 Body weight 60.78 kg Nico [facility] Work Phone: 10-07-2021 14:47-0400 Body temperature 98.3 [degF] [facility] Work Phone: 10-07-2021 14:47-0400 Diastolic blood pressure 68 mm[Hg] Nico [facility] Work Phone: 10-07-2021 14:47-0400 Heart rate 90 /min [facility] Work Phone: 10-07-2021 14:47-0400 Respiratory rate 18 /min [facility] Work Phone: 10-07-2021 14:47-0400 Systolic blood pressure 110 mm[Hg] [facility] Work Phone: 10-07-2021 12:38-0400 Body height 172.72 cm Nico [facility] Work Phone: 10-07-2021 12:38-0400 Body mass index (BMI) [Ratio] 20.5 kg/m2 Nico [facility] Work Phone: 10-07-2021 12:38-0400 Body weight 61.23 kg Nico [facility] Work Phone: 08-10-2021 17:37-0400 Body temperature 98.1 [degF] [facility] Work Phone: 08-10-2021 17:37-0400 Diastolic blood pressure 78 mm[Hg] Nico [facility] Work Phone: 08-10-2021 17:37-0400 Heart rate 74 /min [facility] Work Phone: 08-10-2021 17:37-0400 Respiratory rate 17 /min [facility] Work Phone: 08-10-2021 17:37-0400 SaO2% (BldA) [Mass fraction] 97 % [facility] Work Phone: 08-10-2021 17:37-0400 Systolic blood pressure 144 mm[Hg] [facility] Work Phone: 06-11-2021 15:21-0400 Body temperature 97.5 [degF] [facility] Work Phone: 06-11-2021 15:21-0400 Diastolic blood pressure 60 mm[Hg] [facility] Work Phone: 06-11-2021 15:21-0400 Heart rate 79 /min [facility] Work Phone: 06-11-2021 15:21-0400 Respiratory rate 16 /min [facility] Work Phone: 06-11-2021 15:21-0400 SaO2% (BldA) [Mass fraction] 99 % [facility] Work Phone: 06-11-2021 15:21-0400 Systolic blood pressure 122 mm[Hg] [facility] Work Phone: 06-06-2021 11:29-0400 Body height 172.72 cm [facility] Work Phone: 06-06-2021 11:29-0400 Body mass index (BMI) [Ratio] 20.5 kg/m2 [facility] Work Phone: 06-06-2021 11:29-0400 Body temperature 96.8 [degF] [facility] Work Phone: 06-06-2021 11:29-0400 Body weight 61.23 kg [facility] Work Phone: 06-06-2021 11:29-0400 Diastolic blood pressure 71 mm[Hg] [facility] Work Phone: 06-06-2021 11:29-0400 Heart rate 62 /min [facility] Work Phone: 06-06-2021 11:29-0400 Respiratory rate 18 /min [facility] Work Phone: 06-06-2021 11:29-0400 SaO2% (BldA) [Mass fraction] 92 % [facility] Work Phone: 06-06-2021 11:29-0400 Systolic blood pressure 106 mm[Hg] [facility] Work Phone: 10-28-2019 14:50-0400 Body mass index (BMI) [Ratio] 30.4 kg/m2 [facility] Work Phone: 06-24-2018 13:29-0400 BMI (Body Mass Index) 29.41 kg/m2 Juan R [facility] Work Phone: 06-24-2018 13:29-0400 BP Diastolic 71 mm[Hg] Juan R Rosado [facility] [place] [facility] Work Phone: Comment on above: Location: [facility]; Position: Sitting 06-24-2018 13:29-0400 BP Systolic 107 mm[Hg] Juan R [facility] [place] [facility] Work Phone: Comment on above: Location: [place]; Position: Sitting 06-24-2018 13:29-0400 BSA (Body Surface Area) 2.06 m2 Juan R [facility] [facility] Work Phone: 06-24-2018 13:29-0400 Height 175.26 cm Juan R [facility] [place] [facility] Work Phone: 06-24-2018 13:29-0400 Pulse (Heart Rate) 101 /min Juan R [facility] [facility] Work Phone: 06-24-2018 13:29-0400 Respiratory Rate 18 /min Juan R [facility] [facility] Work Phone: 06-24-2018 13:29-0400 Weight 90.32 kg Juan R [facility] [place] [facility] Work Phone: Encounters Encounter Date Encounter Type Care Provider Facility Start: 07-26-2024 End: 07-26-2024 Telephone encounter Taisha John APRN.CNP Work Phone: [facility]rology Comment on above: Insurance Authorizat ion ([employer]) Start: 07-23-2024 End: 07-23-2024 Telephone encounter Taisha John APRN.CNP Work Phone: [facility]rology Comment on above: Orders ([employer] form ) Start: 07-22-2024 End: 07-22-2024 Patient encounter procedure Taisha John APRN.CNP Work Phone: [facility]rology Comment on above: Parkinson's disease with dyskinesia and fluctuating manifestations (HCC) (Primary Dx); Depression, unspecified depression type; Drooling; Dystonia of extremity Start: 07-22-2024 End: 07-22-2024 ambulatory TAISHA JOHN Facility:[facility] Start: 07-02-2024 End: 07-02-2024 Patient encounter procedure Carolina Damon MD Work Phone: Neurology Comment on above: Dystonia of extremit y (Primary Dx) Start: 07-02-2024 End: 07-02-2024 ambulatory CAROLINA DAMON Facility:[facility] Start: 05-06-2024 End: 05-06-2024 Refill Taisha John APRN.DOUGH MIXING MACHINE OPERATOR Work Phone: [facility] Comment on above: Refill Request Start: 04-02-2024 End: 05-03-2024 E-mail encounter from caregiver Carolina Damon MD Work Phone: Neurology Start: 04-02-2024 End: 04-02-2024 ambulatory CAROLINA DAMON Facility:[facility] Start: 04-02-2024 End: 05-03-2024 Patient encounter procedure Carolina Damon MD Work Phone: Neurology Comment on above: Dystonia of foot (Pr imary Dx) 06/03/2024 Botox Appo intment Start: 03-16-2024 End: 03-16-2024 Patient encounter procedure Taisha John APRN.DOUGH MIXING MACHINE OPERATOR Work Phone: Neurology Comment on above: Parkinson's disease with dyskinesia and fluctuating manifestations (HCC) (Primary Dx); Dysphagia, unspecified type; Dystonia Start: 03-16-2024 End: 03-16-2024 ambulatory TAISHA JOHN Facility:[facility] Start: 01-05-2024 End: 01-05-2024 Refill Juan R John MD Work Phone: [facility] Comment on above: Refill Request Start: 12-05-2023 End: 12-05-2023 ambulatory Nico Schmidt Facility:[facility] Start: 11-28-2023 End: 11-28-2023 ambulatory KAYODE GUZMAN Facility:[facility] Start: 11-28-2023 End: 11-28-2023 Office consultation new/estab patient 60 min Kayode Guzman MD Work Phone: Urology Comment on above: Urinary incontinence , unspecified type (Primary Dx); Overactive bladder; Urinary tract infection without hematuria, site unspecified Start: 11-14-2023 End: 11-14-2023 ambulatory CAROLINA DAMON Facility:[facility] Start: 11-14-2023 End: 11-14-2023 Patient encounter procedure Carolina Damon MD Work Phone: Neurology Comment on above: Dystonia of foot (Pr imary Dx) Start: 11-07-2023 End: 11-07-2023 ambulatory TAISHA JOHN Facility:[facility] Start: 11-07-2023 End: 11-07-2023 Patient encounter procedure Taisha John APRN.DOUGH MIXING MACHINE OPERATOR Work Phone: Neurology Comment on above: Overactive bladder ( Primary Dx); Parkinson's disease with dyskinesia and fluctuating manifestations (HCC); Dystonia; Urinary tract infection without hematuria, site unspecified; Insomnia due to medical condition Start: 08-13-2023 End: 08-13-2023 ambulatory Nico Schmidt Facility:[facility] Start: 08-11-2023 Telephone encounter Michaela nolan APRN.DOUGH MIXING MACHINE OPERATOR Work Phone: [facility] Comment on above: Appointment Start: 07-21-2023 End: 07-21-2023 [facility] Start: 07-18-2023 End: 07-18-2023 Patient encounter procedure Carolina Damon MD Work Phone: Neurology Comment on above: Dystonia of foot (Pr imary Dx) Start: 07-17-2023 End: 07-17-2023 Office outpatient visit 40 minutes Juan R John MD Work Phone: Neurology Comment on above: Parkinson's disease without dyskinesia, with fluctuating manifestations (HCC) (Primary Dx); Dystonia of foot Start: 06-19-2023 End: 06-19-[address] Nico Schmidt Work Phone: [facility] Work Phone: Start: 06-19-2023 End: 06-19-[address] Nico Schmidt Work Phone: [facility] Start: 06-19-2023 Telephone encounter Taisha mack APRN.DOUGH MIXING MACHINE OPERATOR Work Phone: [facility] Comment on above: Medication Question Start: 06-19-2023 End: 06-19-2023 [facility] Start: 05-23-2023 Telephone encounter Michaela nolan APRN.DOUGH MIXING MACHINE OPERATOR Work Phone: [facility] Comment on above: Appointment Start: 05-21-2023 End: 05-21-[address] Nico Schmidt Work Phone: [facility] Work Phone: Start: 05-21-2023 End: 05-21-[address] Nico Schmidt Work Phone: [facility] Start: 05-21-2023 End: 05-21-2023 ambulatory Nico Schmidt Facility:[facility] Start: 05-09-2023 End: 05-09-2023 ambulatory Michaela Mancini APRN.CNP Work Phone: [facility] Comment on above: NO SHOW (Primary Dx) Start: 05-09-2023 End: 05-09-2023 Telemedicine consultation with patient Michaela Hernandezvolodymyr PUTNAM Work Phone: [facility] Start: 05-06-2023 Telephone encounter Taisha mack APRN.DOUGH MIXING MACHINE OPERATOR Work Phone: [facility] Comment on above: Medication Question Start: 04-08-2023 End: 04-08-2023 ambulatory Taisha John APRN.CNP Work Phone: Neurology Comment on above: Dysphagia, unspecifi ed type (Primary Dx); Parkinson's disease with dyskinesia and fluctuating manifestations; Focal dystonia Start: 04-08-2023 End: 04-08-2023 Telemedicine consultation with patient Taisha John APRN.DOUGH MIXING MACHINE OPERATOR Work Phone: [facility] Start: 04-01-2023 E-mail encounter fro m caregiver [facility] Start: 04-01-2023 Patient encounter procedure [facility] Comment on above: Palliative medicine virtual visit appointment Start: 03-21-2023 End: 03-21-2023 ambulatory Michaela Mancini APRN.DOUGH MIXING MACHINE OPERATOR Work Phone: [facility] Comment on above: Encounter for pallia tive care (Primary Dx); Parkinson's disease with dyskinesia and fluctuating manifestations; Oropharyngeal dysphagia; Muscle cramps; Night muscle spasms; Generalized weakness; Chronic insomnia Parkinson's disease with fluctuating manifestations, unspecified whether dyskinesia present (HCC) (Primary Dx) Start: 03-21-2023 End: 03-21-2023 Telemedicine consultation with patient Michaela Mancini APRN.DOUGH MIXING MACHINE OPERATOR Work Phone: [facility] Start: 03-11-2023 ambulatory Jakob Mohan [facility] Start: 03-11-2023 Non-patient / Non-visit Dr. Mina Schmidt Work Phone: [facility] Start: 03-11-2023 End: 03-11-[address] Nico Schmidt Work Phone: [facility] Work Phone: Start: 03-11-2023 End: 03-11-2023 ambulatory Freddy Andel Shree Facility:[facility] Start: 02-27-2023 End: 03-19-2023 Evaluation and management of inpatient Dr. Nico Schmidt Work Phone: [facility] Start: 02-21-2023 End: 02-21-2023 ambulatory Michaela Mancini APRN.DOUGH MIXING MACHINE OPERATOR Work Phone: [facility] Comment on above: Dysphagia, unspecifi ed type (Primary Dx); Parkinson's disease without dyskinesia or fluctuating manifestations (HCC) Start: 02-21-2023 End: 02-21-2023 Telemedicine consultation with patient Michaela Mancini APRN.DOUGH MIXING MACHINE OPERATOR Work Phone: [facility] Start: 02-13-2023 ambulatory Nico Schmidt Facility:[facility] Start: 01-31-2023 Non-patient / Non-visit Dr. Mina Schmidt Work Phone: [facility] Work Phone: Start: 01-29-2023 Non-patient / Non-visit Dr. Mina Schmidt Work Phone: [facility] Work Phone: Start: 01-28-2023 Non-patient / Non-visit Dr. Mina Schmidt Work Phone: [facility] Work Phone: Start: 01-27-2023 Non-patient / Non-visit Dr. Mina Schmidt Work Phone: [facility] Work Phone: Start: 01-22-2023 Non-patient / Non-visit Dr. Mina Schmidt Work Phone: [facility] Work Phone: Start: 01-16-2023 Refill Juan R alejandre MD Work Phone: [facility] Comment on above: Refill Request Start: 01-16-2023 Non-patient / Non-visit Dr. Mina Schmidt Work Phone: [facility] Work Phone: Start: 01-15-2023 Non-patient / Non-visit Dr. Mina Schmidt Work Phone: [facility] Work Phone: Start: 01-14-2023 ambulatory [facility] Start: 01-14-2023 End: 02-01-2023 Evaluation and management of inpatient Dr. Nico Schmidt Work Phone: [facility] Work Phone: Start: 01-08-2023 Telephone encounter [facility] Comment on above: [id number] Start: 01-07-2023 End: 01-07-2023 Evaluation and management of inpatient NICO SCHMIDT Facility:[facility] Start: 12-31-2022 Telephone encounter Juan R John MD Work Phone: Neurology Comment on above: Patient Update Start: 12-27-2022 End: 12-27-2022 ambulatory NICO SCHMIDT Facility:[facility] Start: 12-26-2022 Telephone encounter Juan R John MD Work Phone: [facility] Comment on above: Patient Update Start: 12-25-2022 End: 01-14-2023 Evaluation and management of inpatient UNKNOWN PROVIDER Facility:[facility] Start: 12-25-2022 End: 12-25-2022 Emergency department patient visit [facility]-Emergency Department Work Phone: Start: 12-24-2022 End: 12-24-2022 ambulatory Juan R John MD Work Phone: [facility] Comment on above: Parkinson's disease without dyskinesia, with fluctuating manifestations (Primary Dx); Dysphagia, unspecified type Start: 12-24-2022 End: 12-24-2022 Telemedicine consultation with patient Juan R John MD Work Phone: F [facility] Start: 10-22-2022 Refill Juan R alejandre MD Work Phone: [facility] Comment on above: Refill Request Start: 10-08-2022 Telephone encounter Juan R John MD Work Phone: [facility] Comment on above: Medication Question Start: 09-20-2022 End: 09-20-2022 Patient encounter procedure Carolina Damon MD Work Phone: Neurology Comment on above: Dystonia of foot (Pr imary Dx) Refill Request Start: 07-23-2022 Evaluation and manag ement of inpatient [facility]-Progressive Care Unit Start: 06-06-2022 Telephone encounter Carolina gibson MD Work Phone: Neurology Comment on above: error Start: 04-29-2022 End: 05-12-2022 Subsequent hospital visit by physician Luther Vega MD Work Phone: [facility] Start: 04-25-2022 End: 04-25-2022 ambulatory Gayle Alicea PT, DPT [facility] Outpatient Physical Therapy Comment on above: Parkinson's disease (HCC) (Primary Dx) Decreased activities of daily living (ADL) (Primary Dx); Parkinson's disease (HCC) Start: 04-25-2022 Telephone encounter Luther buchanan MD Work Phone: Neurology Comment on above: Patient Update Start: 04-24-2022 End: 04-24-2022 Patient encounter procedure Luther Vega MD Work Phone: [facility]ICAL [facility]ICINE [facility] REHAB Comment on above: Parkinson's disease (HCC) (Primary Dx); Hereditary and idiopathic peripheral neuropathy; Abnormality of gait; At high risk for falls; Severe protein-calorie malnutrition (HCC); Impaired mobility and ADLs Start: 04-18-2022 Telephone encounter Gayle coronado PT, T [facility] Outpatient Physical Therapy Comment on above: Appointment Start: 04-02-2022 End: 04-02-2022 Patient encounter procedure Carolina Damon MD Work Phone: Neurology Comment on above: Parkinson's disease (HCC) (Primary Dx) Start: 04-02-2022 End: 04-02-2022 ambulatory Teresa Ferguson [facility] Work Phone: [facility] Outpatient Speech Therapy Comment on above: Parkinson's disease (HCC) (Primary Dx) Parkinson's disease (HCC) (Primary Dx); Decreased activities of daily living (ADL) Start: 04-02-2022 End: 04-02-2022 ambulatory Gayle Alicea PT, [facility] Outpatient Physical Therapy Comment on above: Parkinson's disease (HCC) Start: 03-25-2022 End: 03-25-2022 Emergency department patient visit [facility]-Emergency Department Start: 02-26-2022 End: 02-26-2022 Patient encounter procedure Carolina Damon MD Work Phone: Neurology Comment on above: Dystonia of foot (Pr imary Dx) Start: 02-20-2022 Telephone encounter Juan R John MD Work Phone: [facility] Comment on above: [facility] Start: 02-14-2022 End: 02-14-2022 Patient encounter procedure Juan R John MD Work Phone: Neurology Comment on above: Parkinson's disease (HCC) (Primary Dx) Start: 02-14-2022 Telephone encounter Juan R John MD Work Phone: Neurology Comment on above: Appointment Start: 11-23-2021 End: 11-23-2021 ambulatory Juan R John MD Work Phone: [facility] Comment on above: Parkinson's disease (HCC) (Primary Dx) Start: 11-23-2021 End: 11-23-2021 Telemedicine consultation with patient Juan R John MD Work Phone: F [facility] Start: 10-09-2021 End: 10-09-2021 ambulatory [facility] Work Phone: Start: 10-09-2021 End: 10-09-2021 Discharged Recurring [facility]-Patient Link Start: 10-09-2021 Registered Recurring [facility]-Patient Link Start: 10-09-2021 Non-patient / Non-visit [facility] Inpatient Physicians Start: 10-09-2021 Non-patient / Non-visit [facility] Start: 10-08-2021 Non-patient / Non-visit [facility] Inpatient Physicians Start: 10-07-2021 Non-patient / Non-visit [facility] Inpatient Physicians Start: 10-07-2021 End: 10-09-2021 Evaluation and management of inpatient [facility]-Medical Surgical 3 Start: 10-01-2021 End: 10-01-2021 ambulatory [facility] Work Phone: Start: 10-01-2021 End: 10-01-2021 Discharged Recurring [facility]-Physical Therapy Start: 10-01-2021 Registered Recurring [facility]-Physical Therapy Start: 09-13-2021 Refill Juan R alejandre MD Work Phone: [facility] Comment on above: Refill Request Start: 09-07-2021 End: 09-07-2021 ambulatory Juan R John MD Work Phone: [facility] Comment on above: Parkinson's disease (HCC) (Primary Dx) Start: 09-07-2021 End: 09-07-2021 Telemedicine consultation with patient Juan R John MD Work Phone: [facility] Start: 08-27-2021 Registered Recurring [facility] Start: 08-24-2021 Refill Juan R alejandre MD Work Phone: [facility] Comment on above: Refill Request; Refi ll Request Start: 08-23-2021 End: 08-23-2021 Patient encounter procedure [facility] Start: 08-10-2021 End: 08-10-2021 Patient encounter procedure [facility] Start: 07-20-2021 Telephone encounter Juan R John MD Work Phone: [facility] Comment on above: Orders Start: 06-22-2021 End: 06-22-2021 ambulatory Juan R John MD Work Phone: [facility] Comment on above: Parkinson's disease (HCC) (Primary Dx) Start: 06-22-2021 End: 06-22-2021 Telemedicine consultation with patient Juan R John MD Work Phone: [facility] Start: 06-11-2021 End: 06-11-2021 Patient encounter procedure [facility] Start: 06-06-2021 End: 06-06-2021 Emergency department patient visit [facility]-Emergency Department Start: 03-07-2021 End: 03-07-2021 Discharged Recurring [facility] Start: 06-24-2018 Patient encounter procedure Juan R Rosado [id number] Work Phone: Start: 06-08-2018 End: 06-11-2018 Patient encounter procedure DERREK SHAW [facility] Start: 12-10-2017 Patient encounter Nikkie Arriaga Fac ility:[id number] Start: 12-10-2017 Patient encounter Derrek Shaw Facility:[id number] Start: 10-09-2017 Patient encounter Nikkie Arriaga [facility] it:[facility] Start: 08-13-2017 Patient encounter Nikkie Arriaga Fac ility:[id number] Start: 01-22-2017 Patient encounter procedure Juan R Rosado [id number] Work Phone: Start: 09-11-2016 Patient encounter procedure Juan R [facility] 1029 Work Phone: Procedures Date Procedure Procedure Detail Performing Clinician Start: 11-28-2023 Urnls dip stick/tabl et reagent auto microscopy Kayode Guzman MD Work Phone: Start: 06-19-[address] Nico Schmidt Work Phone: Start: 05-21-[address] Nico Schmidt Work Phone: Start: 03-04-[address] Nico Schmidt Work Phone: Start: 01-15-2023 Bacteria identified in Blood by Culture Dr. Nico Schmidt Work Phone: Start: 01-15-[address] Nico Schmidt Work Phone: Start: 12-25-2022 Plain chest X-ray Start: 12-25-[address] Nico Schmidt Work Phone: Start: 07-23-2022 Plain chest X-ray Start: 05-09-2022 Blood count complete automated Nereida Reyes KEG INSPECTOR.DOUGH MIXING MACHINE OPERATOR Work Phone: Start: 05-06-2022 Blood count complete automated Nereida Reyes KEG INSPECTOR.DOUGH MIXING MACHINE OPERATOR Work Phone: Start: 05-02-2022 Antinuclear antibodies xu Luther Vega MD Work Phone: Start: 05-02-2022 Blood count complete automated Nereida Reyes KEG INSPECTOR.DOUGH MIXING MACHINE OPERATOR Work Phone: Start: 05-02-2022 HEP A AB IGM Luther buchanan MD Work Phone: Start: 05-02-2022 HEP ACUTE PANEL BL Juan Jose Vega MD Work Phone: Start: 03-16-2023 HEP B SURF AG ANGIE Heath MD Work Phone: Start: 05-02-2022 HEP C AB IA W/CONF ANGIE Vega MD Work Phone: Start: 03-25-2022 Diagnostic radiograp hy of finger Start: 03-25-2022 Diagnostic radiograp hy of finger Start: 06-22-2021 Adult depression scr eening assessment Juan R John MD Work Phone: Start: 09-16-2018 Follow-up visit Start: 06-24-2018 Follow-up visit Start: 06-08-2018 MICROALBUMIN / CREAT ININE URINE RATIO DERREK VALERIA Start: 06-08-2018 Comprehensive metabo lic panel DERREK SHAHAAKASH Start: 06-08-2018 Lipid panel DERREK DURANT DYLAN Start: 06-08-2018 Lipid 1996 panel - S tae or Plasma Taisha John KEG INSPECTOR.DOUGH MIXING MACHINE OPERATOR Work Phone: Start: 12-31-2017 Follow-up visit Start: 04-28-2006 Colonoscopy Juan R alejandre MD Work Phone: Bacteria identified in Blood by Culture Nico Schmidt Investigation of transfusion reaction Nico Schmidt Microbial culture, routine P santa Schmidt Plan of Treatment Date Care Activity Detail Author Start: 10-06-2029 Urine microalbumin profile DTaP,Tdap,Td Vaccine (3 - Td or Tdap) [facility] Start: 01-14-2026 Diabetes Screening Diabetes Screenin g [facility] Start: 05-09-2025 DIABETES SCREEN DIABETES SCREEN [place] Start: 01-07-2025 End: 01-07-2025 Patient encounter procedure 01/07/2025 11:30 AM EST Office Visit Neurology [address] [facility] [address] [place] [address] Carolina Damon MD [address] [facility] [address] [place], [place] [id number] Botox 300 units Neurology Comment on above: Botox 300 units Start: 10-18-2024 Influenza vaccination Influenz a Vaccine (Season Ended) [facility] Start: 10-15-2024 End: 10-15-2024 Patient encounter procedure 10/15/2024 11:00 AM EDT Office Visit Neurology [address] [address] Carolina Damon MD [address] [address] Botox 300 units Neurology Comment on above: Botox 300 units Start: 09-06-2024 End: 09-06-2024 Patient encounter procedure 09/06/2024 2:00 PM EDT Office Visit [facility] [address] [place] [address] Juan R John MD [address] [place] [address] follow up [facility] Comment on above: follow up Start: 07-06-2024 End: 07-06-2024 Patient encounter procedure 07/06/2024 3:30 PM EDT Office Visit Neurology [address] [address] Taisha John, KEG INSPECTOR.DOUGH MIXING MACHINE OPERATOR [address] [place] [address] 3 month follow up (with Dr. John per EW) Neurology Comment on above: 3 month follow up (w ith Dr. John per EW) Start: 07-02-2024 End: 07-02-2024 Patient encounter procedure Neurology Comment on above: 3 Month Follow up Botox 300 units Start: 06-03-2024 End: 06-03-2024 Patient encounter procedure Neurology Comment on above: 3 month follow up (w ith Dr. John per EW) botox needs to r/s Start: 04-02-2024 End: 04-02-2024 Patient encounter procedure 04/02/2024 9:30 AM EST Office Visit Neurology [address] [address] Carolina Damon MD [address] [address] NO TABLET Neurology Comment on above: NO TABLET Start: 03-16-2024 End: 03-16-2024 Patient encounter procedure 03/16/2024 3:30 PM EST Office Visit Neurology [address] [address] Taisha John, KEG INSPECTOR.DOUGH MIXING MACHINE OPERATOR [address] [place] [address] 3 month follow-up Neurology Comment on above: 3 month follow-up Start: 02-20-2024 End: 02-20-2024 Patient encounter procedure 02/20/2024 11:30 AM EST Office Visit Neurology [address] [address] Carolina Damon MD [address] [address] Botox 300 units Neurology Comment on above: Botox 300 units Start: 02-18-2024 Advance Directive Discussion Advance Directive Discussion [facility] Start: 02-10-2024 End: 02-10-2024 Patient encounter procedure 02/10/2024 8:00 AM EST Office Visit Neurology [address] [address] Taisha John, KEG INSPECTOR.DOUGH MIXING MACHINE OPERATOR [address] [place] [address] 3 month follow up Neurology Comment on above: 3 month follow up Start: 11-28-2023 RSV Vaccine (1 - 1-d ose 75+ series) RSV Vaccine (1 - 1-dose 75+ series) [facility] Start: 11-28-2023 End: 11-28-2023 Patient encounter procedure 11/28/2023 1:00 PM EDT Office Visit Urology [address] [address] Kayode Guzman MD [address] [place], [place] [id number] Overactive bladder [N32.81] Urology Comment on above: Overactive bladder [ N32.81] Start: 11-14-2023 End: 11-14-2023 Patient encounter procedure 11/14/2023 10:00 AM EDT Office Visit Neurology [address] [address] Carolina Damon MD [address] [address] Botox 300 units Neurology Comment on above: Botox 300 units Start: 10-23-2023 End: 10-23-2023 Patient encounter procedure Neurology Comment on above: Botox 300 units follow up-slot ok pe r EW (patient has botox prior) Start: 10-19-2023 Covid-19 Vaccine ( season) Covid-19 Vaccine () [facility] Start: 10-19-2023 Influenza vaccination Influenza Vacc ine (#1) [facility] Start: 09-21-2023 BP Controlled (<130/80) BP Con trolled (<130/80) [facility] Start: 07-18-2023 End: 07-18-2023 Patient encounter procedure 07/18/2023 12:30 PM EDT Office Visit Neurology [address] [address] Carolina Damon MD [address] [address] Botox 300 units Neurology Comment on above: Botox 300 units Start: 07-17-2023 End: 07-17-2023 Patient encounter procedure 07/17/2023 8:30 AM EDT Office Visit Neurology [address] [id number] Juan R John MD [address] [place], [place] [id number] Follow up Neurology Comment on above: Follow up Start: 06-09-2023 Lipid panel Lipid Screening [facility] Start: 03-19-2023 Patient discharge [facility] Start: 03-18-2023 Development of care plan [facility] Start: 03-16-2023 [facility] Start: 03-12-2023 Referral to service [facility] Start: 03-10-2023 Fiberoptic endoscopi c evaluation of swallowing [facility] Start: 03-10-2023 [facility] Start: 02-28-2023 Speech therapy management [facility] Start: 02-28-2023 Development of care plan [facility] Start: 02-28-2023 Developing a treatme nt plan [facility] Start: 02-27-2023 [facility] Start: 02-27-2023 End: 02-27-2023 Following clinical pathway protocol [facility] Start: 02-27-2023 Speech therapy assessment [facility] Start: 02-27-2023 Admission procedure [facility] Start: 02-27-2023 Measuring intake and output [facility] Start: 02-27-2023 Patient referral to dietitian [facility] Start: 02-27-2023 Referral to occupational therapist [facility] Start: 02-27-2023 Referral to service [facility] Start: 02-27-2023 Vital signs measurements [facility] Start: 02-27-2023 [facility] Start: 02-17-2023 Advance Directive Discussion Advance Directive Discussion [facility] Start: 02-17-2023 Depression Assessment Depression Ass essment [facility] Start: 02-01-2023 Patient discharge [facility] Start: 01-29-2023 Referral to service [facility] Start: 01-28-2023 [facility] Start: 01-15-2023 Measuring intake and output [facility] Start: 01-15-2023 [facility] Start: 01-14-2023 Application of intermittent pneumatic compression device [facility] Start: 01-14-2023 Consultation for treatment [facility] Start: 01-14-2023 Recommendation to continue with treatment [facility] Start: 01-14-2023 Referral to service [facility] Start: 01-14-2023 Urinary bladder training [facility] Start: 01-14-2023 Admission procedure [facility] Start: 01-14-2023 Referral to occupational therapist [facility] Start: 01-14-2023 Verification routine [facility] Start: 01-14-2023 Vital signs measurements [facility] Start: 01-14-2023 [facility] Start: 01-14-2023 Patient referral to dietitian [facility] Start: 01-14-2023 Speech therapy assessment [facility] Start: 12-25-2022 End: 12-25-2022 [facility] Start: 12-25-2022 Bacteria identified in Urine by Culture Urine Culture [facility] Start: 11-02-2022 Hemoglobin A1c measurement HbA1C [facility] Start: 11-02-2022 Hemoglobin A1c/Hemoglobin.total in Blood HbA1C [facility] Start: 10-18-2022 Covid-19 Vaccine () Covid-19 Vaccine () [facility] Start: 10-18-2022 Influenza vaccination [facility] Start: 07-23-2022 Verification routine [facility] Start: 07-23-2022 Admission procedure [facility] Start: 07-23-2022 End: 07-23-2022 Blood culture [facility] Start: 07-23-2022 End: 07-23-2022 [facility] Start: 06-22-2022 Adult depression screening assessment DEPRESSION SCREENING [facility] Start: 02-17-2022 ADVANCE DIRECTIVE DISCUSSION ADVANCE DIRECTIVE DISCUSSION [facility] Start: 02-17-2022 DEPRESSION ASSESSMENT DEPRESSION ASS ESSMENT [facility] Start: 02-08-2022 COVID-19 VACCINE (5 - Booster for Moderna series) COVID-19 VACCINE (5 - Booster for Moderna series) [facility] Start: 12-14-2021 COVID-19 VACCINE (4 - Booster for Moderna series) COVID-19 VACCINE (4 - Booster for Moderna series) [facility] Start: 12-14-2021 COVID-19 VACCINE (4 - Moderna series) COVID-19 VACCINE (4 - Moderna series) [facility] Start: 12-14-2021 COVID-19 VACCINE (5 - Booster for Moderna series) COVID-19 VACCINE (5 - Booster for Moderna series) [facility] Start: 10-18-2021 Influenza vaccination [facility] Start: 10-09-2021 Patient discharge [facility] Work Phone: Start: 10-09-2021 [facility] Work Phone: Start: 10-08-2021 Following clinical pathway protocol [facility] Work Phone: Start: 10-08-2021 Methicillin resistan t Staphylococcus aureus screening test [facility] Work Phone: Start: 10-07-2021 Following clinical pathway protocol [facility] Work Phone: Start: 10-07-2021 Assessment of risk o f venous thromboembolism [facility] Work Phone: Start: 10-07-2021 Insertion of cathete r into peripheral vein [facility] Work Phone: Start: 10-07-2021 Providing care according to standard [facility] Work Phone: Start: 10-07-2021 Provision of activit y privileges [facility] Work Phone: Start: 10-07-2021 Referral to occupational therapist [facility] Work Phone: Start: 10-07-2021 Referral to service [facility] Work Phone: Start: 10-07-2021 [facility] Work Phone: Start: 10-07-2021 Verification routine [facility] Work Phone: Start: 10-07-2021 Admission procedure [facility] Work Phone: Start: 10-07-2021 End: 10-07-2021 Blood culture [facility] Work Phone: Start: 06-06-2021 Simple repair scalp/neck/ax/genit/pino nk 2.5cm/< RPR S/N/AX/GEN/TRNK 2.5CM/< [facility] Work Phone: Start: 02-17-2021 ADVANCE DIRECTIVE DISCUSSION ADVANCE DIRECTIVE DISCUSSION [facility] Start: 02-17-2021 DEPRESSION ASSESSMENT DEPRESSION ASS ESSMENT [facility] Start: 10-10-2020 COVID-19 VACCINE (3 - Booster for Moderna series) COVID-19 VACCINE (3 - Booster for Moderna series) [facility] Start: 05-05-2020 DIABETES SCREEN DIABETES SCREEN [place] Start: 06-09-2019 Hepatitis B screening Urine Albumin:Creatinine Ratio [facility] Start: 06-09-2019 Hepatitis B surface antibody level LDL Cholesterol [facility] Start: 2013 PNEUMOCOCCAL: 65+ (1 - PCV) PNEUMOCOCCAL: 65+ (1 - PCV) [facility] Start: 2013 PNEUMOVAX AGE 65 AND OVER WITH 5YR LOOKBACK (#1) PNEUMOVAX AGE 65 AND OVER WITH 5YR LOOKBACK (#1) [facility] Start: 05-04-2013 Shingrix Vaccine (2 of 3) Shingrix Vaccine (2 of 3) [facility] Start: 2008 Hepatitis B Vaccine (1 of 3 - Risk 3-dose series) Hepatitis B Vaccine (1 of 3 - Risk 3-dose series) [facility] Start: 2008 RSV Vaccine (1 - 1-d ose 60+ series) RSV Vaccine (1 - 1-dose 60+ series) [facility] Start: 2008 RSV Vaccine (1 - Ris k 60-74 years 1-dose series) RSV Vaccine (1 - Risk 60-74 years 1-dose series) [facility] Start: 04-29-2007 Colonoscopy COLONOSCOPY [facility] Start: 04-29-2007 COLORECTAL CANCER SCREENING COLORECTAL CANCER SCREENING [facility] Start: 04-29-2007 Screening for malign ant neoplasm of colon [facility] Start: 1998 SHINGRIX VACCINE (1 of 2) SHINGRIX VACCINE (1 of 2) [facility] Start: 1993 COLOGUARD (FIT-DNA) COLOGUARD (FIT-D NA) [facility] Start: [address] COLONOGRAPHY [place] Start: 1993 FECAL OCCULT BLOOD FECAL OCCULT BLOO D [facility] Start: 1993 Screening for malign ant neoplasm of colon [facility] Start: 1993 SIGMOIDOSCOPY SIGMOIDOSCOPY [facility] Start: 11-28-1983 LIPID SCREEN LIPID SCREEN [facility] Start: 11-28-1967 Urine microalbumin profile DTAP,TDAP,TD (1 - Tdap) [facility] Start: 1966 Annual PCP Team [employer] [place] Disease Visit Annual PCP Team Chronic Disease Visit [facility] Start: 1966 Anxiety Screening Anxiety Screening [facility] Start: 1966 BP Controlled (<130/80) BP Con trolled (<130/80) [facility] Start: 1966 Depression Screening Depression Scre ening [facility] Start: 1966 Hepatitis B surface antibody level LDL Cholesterol [facility] Start: 1966 HEPATITIS C SCREENING HEPATITIS C SC REENING [facility] Start: 1958 3 comp foot exam completed Diabetic Foot Exam [facility] Start: 1958 Diabetic foot examination Diabetic Foot Exam [facility] Start: 1958 Glaucoma screening Dilated Retinal E xam [facility] Start: 1958 Hepatitis C antibody , confirmatory test Dilated Retinal Exam [facility] Bacteria identified in Blood by Culture Blood Culture [facility] Bacteria identified in Urine by Culture URINE CULTURE Microbiology Routine Urinary tract infection without hematuria, site unspecified 11/28/2023 1:46 PM EDT [facility] Bilirubin measuremen t, urine [facility] BLADDER SCAN BLADDER SCAN Procedures Routine Overactive bladder Urinary tract infection without hematuria, site unspecified Urinary incontinence, unspecified type Ordered: 11/28/2023 [facility] Work Phone: Comment on above: Ordered: 11/28/2023 Blood culture [facility] Work Phone: Hemoglobin [Presence ] in Urine [facility] Measurement of keton es in urine using dipstick [facility] Microscopic urinalysis [facility] OT PLAN OF CARE CERTIFICATION OT PLAN OF CARE CERTIFICATION Procedures Routine Parkinson's disease (HCC) Decreased activities of daily living (ADL) Ordered: 04/02/2022 [facility] Work Phone: Comment on above: Ordered: 04/02/2022 OT PLAN OF CARE CERTIFICATION OT PLAN OF CARE CERTIFICATION Procedures Routine Parkinson's disease (HCC) Decreased activities of daily living (ADL) Ordered: 04/25/2022 [facility] Work Phone: Comment on above: Ordered: 04/25/2022 Patient Education [facility] Work Phone: Patient referral [facility] Work Phone: pH of Urine [facility] Specific gravity of Urine [facility] SPEECH PLAN OF CARE CERTIFICATION SPEECH PLAN OF CARE CERTIFICATION Procedures Routine Parkinson's disease (HCC) Ordered: 04/02/2022 [facility] Work Phone: Comment on above: Ordered: 04/02/2022 Urinalysis, blood, qualitative [facility] Urine dipstick for glucose [facility] Urine dipstick for leukocyte esterase [facility] Urine dipstick for nitrite [facility] Urine dipstick for protein [facility] Urine examination [facility] Urine microscopy: epithelial cells [facility] Urine Microscopy: wh ite cells [facility] Urobilinogen [Presen ce] in Urine [facility] End: 01-24-2024 XR MODIFIED BARIUM SWALLOW W SPEECH THERAPY XR MODIFIED BARIUM SWALLOW W SPEECH THERAPY Radiology Routine Parkinson's disease without dyskinesia, with fluctuating manifestations 1 Occurrences starting 12/24/2022 until 01/24/2024 [facility] Work Phone: Comment on above: 1 Occurrences starti ng 12/24/2022 until 01/24/2024 YF-Vjqaignkn-Hv hland 1025 Work Phone: [facility] NEGATED: Highlighted row has been ruled out! Planned Goals not documented UF-Nphhbszhl-Flnfzbe 1025 Work Phone: Immunizations Immunization Date Immunization Notes Care Provider Herson bennett 02-28-2023 Influenza High-Dose Quadrivalent Dr. Nico Schmidt Work Phone: [facility] 02-28-2023 influenza virus vacc ine, unspecified formulation Taisha John APRN.CNP Work Phone: [facility] 06-09-2021 Covid (Moderna) Nico Schmidt [facility] 04-17-2021 influenza, injectabl e, quadrivalent, preservative free [facility] 04-17-2021 influenza, seasonal, injectable Nico Schmidt [facility] 04-17-2021 influenza virus vacc ine, unspecified formulation Juan R John MD Work Phone: [facility] 04-20-2019 influenza, injectabl e, quadrivalent, preservative free [facility] 04-20-2019 influenza, seasonal, injectable [facility] 12-06-2016 Influenza virus vaccine [facility] 07-10-2015 pneumococcal polysaccharide vaccine, [address] Nico Schmidt Work Phone: [facility] 01-27-2014 pneumococcal conjuga te vaccine, [address] Nico Schmidt Work Phone: [facility] Payers Date Payer Category Payer Self-pay [id number] 2019 Unknown MMO MMO MEDICARE SUPPLEMENT [id number] 2019-Present [phone] [address] [place] [address] Indemnity [id number] 2018 Private Health Insurance [id number] 2018 Unknown [id number] 2018 Unknown [id number] 1.13.159.2. [id number] 2013 Medicare MEDICARE MEDICAR E A AND B [id number] 2013-Present [phone] [address] [address] [place] [address] Medicare [id number]. [id number] 2013 Medicare [id number]. 1.13.159.2. [id number] 2013 Medicare [id number] 1948 Unknown [id number] 2..840.1.692542.3.579.2. 356 1948 Unknown [id number] 2.16.840.1.919246.3.579.2. 356 1948 Unknown [id number] 2.840.1.879297.3.579.2. 356 1948 Unknown [id number] 2.840.1.284674.3.579.2. 204 Medicare [id number] Unknown [id number] Unknown [id number] 2.16.840.1.447837.3.579.2. 462 Unknown [id number] 2.16840.1.728596.3.579.2. 462 Unknown [id number] 2.16.840.1.085620.3.579.2. 462 Unknown [id number] 2.16840.1.501006.3.579.2. 462 Unknown [id number] 2.16840.1.501292.3.579.2. 462 Unknown [id number] 2.16.840.1.266442.3.579.2. 462 Unknown [id number] 2.16.840.1.305159.3.579.2. 462 Unknown [id number] 2.16.840.1.020875.3.579.2. 462 Unknown [id number] 2.16.840.1.322553.3.579.2. 462 Unknown [id number] 2.16.840.1.886539.3.579.2. 462 Unknown [id number] 2.16.840.1.575450.3.579.2. 462 Unknown [id number] 2.16.840.1.948832.3.579.2. 462 Unknown [id number] 2.16.840.1.407456.3.579.2. 462 Unknown [id number] 2.16.840.1.877894.3.579.2. 462 Unknown [id number] 2.16.840.1.693341.3.579.2. 462 Unknown [id number] 2.16.840.1.421867.3.579.2. 462 Unknown [id number] 2.16.840.1.043950.3.579.2. 462 Social History Date Type Detail Facility Start: 11-16-2020 End: 01-15-2023 Tobacco smoking status NDIS Unknown if ever smoked [facility] Start: 04-19-2019 None [facility] Start: 04-19-2019 Spouse/ Signif icant Other [facility] Start: 04-19-2019 Non-smoker [facility] Start: 1950 Sex Assigned At Male [facility] Start: 03-25-2013 End: 02-14-2022 Tobacco smoking status NHIS Never smoked tobacco [facility] Start: 03-25-2013 End: 02-14-2022 Tobacco use and exposure Smokeless tobacco non-user [facility] Start: 01-03-2021 End: 07-22-2024 Alcohol intake Ex-drinker (finding) [facility] Start: 08-28-2021 End: 10-04-2021 Exposure to SARS-CoV-2 (event) Not sure [facility] Start: 06-20-2022 End: 09-20-2022 History of Social function [facility] Start: 06-20-2022 End: 09-20-2022 Tobacco use panel [facility] Adult Depression Screening Assessment 0 [facility] Start: 10-11-2019 Gender identity Identifies as male gender (finding) [facility] Start: 03-02-2019 Sexual orientation Heterosexual (maycol fuentes) [facility] (I/We) worried wheth er (my/our) food would run out before (I/we) got money to buy more. Never true [facility] In the past 12 month s, was there a time when you were not able to pay the mortgage or rent on time? No [facility] NEGATED: Highlighted row - Never smoker MM-Etztugnjb-Viawju d 1748 Work Phone: Medical Equipment Procedure Code Equipment Code Equipment Origin al Text Equipment Identifier Dates Kit Endovive 20f r Xylocaine Silicone Peg Pull Method Ampule Trocar Cannula - [id number] Start: 01-07-2023 Goals Date Patient Goal Desired Activity /State Functional Status Date Assessment Result Facility [facility] Work Phone: 02-01-2023 Functional status Activity Abili ty Unable to Assess [facility] Work Phone: 02-01-2023 Functional status Patient Activi ty Bedrest [facility] Work Phone: 01-14-2023 Are you deaf, or do you have serious difficulty hearing Yes 01/14/2023 3:56 PM Spring Stauffer RN Yes [facility] 01-14-2023 Are you blind, or do you have serious difficulty seeing, even when wearing glasses Yes 01/14/2023 3:56 PM Spring Stauffer RN Yes [facility] 01-14-2023 Do you have serious difficulty walking or climbing stairs Yes 01/14/2023 3:56 PM Spring Stauffer RN Yes [facility] 01-14-2023 Do you have difficul ty dressing or bathing Yes 01/14/2023 3:56 PM Spring Stauffer RN Yes [facility] 01-14-2023 Because of a physica l, mental, or emotional condition, do you have difficulty doing errands alone such as visiting a physician's office or shopping Yes 01/14/2023 3:56 PM Spring Stauffer RN Yes [facility] 10-09-2021 Functional status Ambulates [facility] Work Phone: NEGATED: Highlighted row Functional performance Functional status health issues are not documented Disease RU-Bwybiywsh-Ikcbtzu 1025 Work Phone: Mental Status Date Assessment Result Facility 03-19-2023 Cognitive function Awake;Alert;Appropriat e [facility] Work Phone: 03-18-2023 Cognitive function Voice/Name [facility] Work Phone: 02-01-2023 Cognitive function Voice/Name [facility] Work Phone: 01-14-2023 Because of a physical, mental, or emotional condition, do you have serious difficulty concentrating, remembering, or making decisions Yes 01/14/2023 3:56 PM Spring Stauffer, MICHELLE Yes [facility] 12-25-2022 Cognitive function Level Of Cons ciousness Alert;Appropriate;Follo ws Commands;Drowsy [facility] Work Phone: 10-09-2021 Cognitive function Voice/Name [facility] Work Phone: 10-09-2021 Cognitive function Appropriate;Cooperativ e [facility] Work Phone: 10-07-2021 Cognitive function Level Of Cons ciousness Awake;Alert;Appropriate ;Follows Commands [facility] Work Phone: NEGATED: Highlighted row Cognitive function [Interpretation] Cognitive status health issues are not documented Disease ND-Ofnsbrrxj-Zxkews d 1025 Work Phone: Clinical Notes 12-27-2020 to 07-26-2024 Telephone Encounter - Hilda Florez MA - 07/26/2024 3:24 PM EDTTelephone Encounter - Hilda Florez MA - 07/26/2024 3:24 PM EDTTelephone Encounter - Amira Dixon MA - 07/23/2024 8:44 AM EDT Note Date & Type Note Facility 07-26-2024 Telephone encounter Note Received approval for Kt Webb.5 from [employer]. PA# [id number] Dates: From 07/23/2024 until further notice. [facility] 07-26-2024 Miscellaneous Notes Received approval for Gocovri 68.5 mg from [employer]. PA# [id number] Dates: From 07/23/2024 until further notice. documented in this encounter [facility] 07-23-2024 Telephone encounter Note Gocoveri prescription forms faxed to [employer] confirmation received [facility] 07-23-2024 Miscellaneous Notes Gocoveri prescription forms faxed to [employer] confirmation received documented in this encounter [facility] 07-22-2024 Instructions Taisha John APRN.DOUGH MIXING MACHINE OPERATOR - 07/22/2024 11:09 AM EDT It was a pleasure to see you today. We addressed the following diagnoses: Parkinson's disease with dyskinesia and fluctuating manifestations (hcc) (primary encounter diagnosis) Depression, unspecified depression type Drooling Dystonia of extremity My recommendations are as follows: 07/22/2024 Visit: Parkinson's disease/Dystonia: Add 1/2 tablet of Sinemet at 8pm so you are taking 2 tablets I am changing the amantadine to Gocovri Continue exercising Continue physical therapy Continue botulinum toxin injections with Dr. Damon Enroll on the waiting lists for [employer] and [employer] to help cover Rytary (extended-release carbidopa/levodopa); once you re approved, we will send the Rytary prescription to your pharmacy. Resume the [employer] s [employer] Voice Project speech exercises at the end of September; have your grandson continue practicing the exercises with you twice daily. Sialorrhea (drooling): You have been provided with a hand out on drooling. Please do not hesitate to let me know if you have any questions about anything you read. At your convenience, please provide us with a copy of your advanced directives (living will and durable power of criminal defense attorney for healthcare): By Email: Send your document(s) to as an attachment in either PDF, TIFF, or JPEG format. By Mail: [facility] Information Management, [employer] Advance Directive Processing [id number] [place], [place] [address] By In person at any [facility] location Please note: You can use the address or fax number regardless of which [facility] you utilize, and we will make sure it is filed appropriately. Movement Disorders Medication Schedule: Medications 2:30am 8am 11am 2pm 5pm 8pm 11pm Sinemet 25/100 1 2 2 2 2 2 Baclofen 10 mg 1 0.5 1 Rasagiline 1 mg 1 Gocovri 68.5mg 2 Clonazepam 0.5mg 1 Return in 7 weeks (on 09/06/2024). Your current R Movement Disorders Team includes: Primary Movement Disorders Neurologist: Juan R John MD Primary Movement Disorders Advanced Practice Provider: Taisha John CNP If there are any concerns before your next visit, please call or you can send a message through [employer]. You can also now schedule and select appointments through [employer]. Taisha John APRN.CNP documented in this encounter [facility] 07-22-2024 History of Present illness Narrative [facility] - FOLLOW UP EVALUATION Recording using [employer] software for draft documentation of the visit was discussed with the patient/authorized customer service representative teller; all questions welcomed and answered. Patient/authorized customer service representative teller agreed to proceed Nico Schmidt MD [address] [facility] [address] [facility] [address] Dear Nico Schmidt MD: I had the pleasure of seeing Mr. Larsen for follow-up today. As you know he is a 73 year old left-handed male with a history of Parkinson's disease complicated by motor fluctuations and dyskinesia since 2012. Subjective Previous Plan-11/07/2023 Visit: Parkinson's disease/Dystonia: Continue current Parkinson's disease medication schedule though we may consider increasing the amantadine in the future Continue exercising Continue physical therapy I am adding clonazepam at bedtime to help the nighttime dystonia and insomnia. You will take 1/2 tablet at bedtime for a week and then take 1 tablet. For the dystonia, since at times the Baclofen seems to be making it worse, at 2pm, take 1/2 tablet for 5 days and then discontinue that dose. If it is better, let me know and we will discuss weaning you off other doses. If it is worse, then you can go back on it and we may increase the dose if needed. Interval History: Kavon is accompanied by his , who provides additional history. Kavon reports increased episodes of rigidity and bouncing movements, particularly between 2:00 and 3:00 PM and around 10:30 PM. He does not endorse tremors or falls. He previously took Rytary, which he found more effective, but discontinued it due to insurance issues. He has not tried the Crexont for the same reason. He does not endorse lightheadedness upon standing, urinary issues, or constipation. He reports a reduction in drooling over the past week, which he attributes to avoiding chocolate. He does not endorse swallowing difficulties and is using a device to strengthen tongue muscles. He reports sleeping well without acting out dreams and does not take naps during the day. He does not endorse fatigue. He occasionally experiences mild swelling in his feet, particularly in the toes. He reports occasional feelings of depression but does not endorse anxiety, apathy, or compulsive behaviors. He does not endorse hallucinations and describes his memory and thinking as pretty good. He is currently participating in physical therapy and works with a head athletic trainer twice a week. He is also involved in the Voice Project and plans to resume the program at the end of September. His grandson assists him with exercises from the voice project twice a day. He has a living will and a durable power of criminal defense attorney for healthcare. He does not currently have palliative care services. Other symptoms and details are noted below in the completed questionnaire. 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) Questionnaires: In addition, the following areas that may be affected by abnormal involuntary movements were evaluated: Daily activities Difficulties with eating: Difficulties in dressing: Difficulties with hygiene activities: Difficulties with handwriting: Difficulties with doing hobbies and other activities: Difficulties turning in bed: Difficulties getting out of bed, car or chair: Tremors/Gait/Balance Shaking or tremors: Walking and balance problems: Number of falls in the Last Month: Gait freezing: Autonomic/Pain Lightheadeness on standing: Urinary problems: Waiting for [employer] approval Constipation problems: Pain and other sensations: Speech/Swallowing Speech problems: Drooling: Chewing and swallowing problems: Sleep/Fatigue Sleep problems: Daytime sleepiness: Fatigue: In addition, the following non-motor symptoms and palliative concerns were evaluated: Sleep/Fatigue: REM sleep behavior disorder: No Restless Legs Syndrome: No Leg swelling: Occasionally one foot or the other is swollen. Impaired sense of smell: Yes Cognition: Memory and Thinkin - Slight. Impairment appreciated by me or my caregiver with no concrete interference with my ability to carry out normal activities and social interactions. Hallucinations and Psychosis: 0 - Normal. No hallucinations or psychotic behavior. Depressed Mood: 1 - Slight. Episodes of depressed mood that are not sustained for more than one day at a time. No interference with my ability to carry out normal activities and social interactions. He said he gets agitated with what he is not allowed to do, but he is not depressed. Anxious Mood: 0 - Normal. No anxious feelings. Apathy: 0 - Normal. No apathy. Impulse Control: 0 - Normal. No problems present. MoCA Cognitive assessment: Palliative Concerns: Caregiver burden: She has help from her grandsons who live with them. Spiritual concerns: No Advanced directives on file: He has but not on file. I gave him ways to get this to us. Palliative services: No He was contacted about it but he did not want. Therapy and Exercise: Last PT Date: 04/25/2022 (with Gayle Alicea) for acute care eval - per provider July 2024 Last OT Date: 04/25/2022 (with Jaimee Vazquez) for acute care eval - per provider June [address] Date: 04/02/2022 (with Teresa Ferguson) for acute care eval - per provider July 2024 Exercises Regularly: Yes Chair exercises and works with a hop strainer ALLERGIES Allergen Reactions Abilify [Aripiprazo* Contraindication-Medical Surgical People with Parkinson's disease should not take this or other antipsychotics except Nuplazid, Seroquel, and Clozaril can be prescribed. Ciprofloxacin Other: See Comments Tendon rupture (see black box warning)-this occurred in him when Cipro was used for cellulitis/sepsis Compazine [Prochlor* Contraindication-Medical Surgical This should not be given to people with Parkinson's disease. If not otherwise contraindicated, Zofran should be given instead. Haldol [Haloperidol] Contraindication-Medical Surgical People with Parkinson's disease should not take this or other antipsychotics except Nuplazid, Seroquel, and Clozaril can be prescribed. Penicillin G Unknown Was told as a child he was allergic to this medication Penicillins Unknown Phenergan [Prometha* Contraindication-Medical Surgical This should not be given to people with Parkinson's disease. If not otherwise contraindicated, Zofran should be given instead. Reglan [Metoclopram* Contraindication-Medical Surgical This should not be given to people with Parkinson's disease. If not otherwise contraindicated, Zofran should be given instead. Zyprexa [Olanzapine] Contraindication-Medical Surgical People with Parkinson's disease should not take this or other antipsychotics except Nuplazid, Seroquel, and Clozaril can be prescribed. Current Outpatient Medications Medication Sig baclofen 10 mg tablet Take 1 tablet in the morning and afternoon and 0.5-1 tablet in the evening. clonazePAM (KLONOPIN) 0.5 mg tablet Take 1 tablet by mouth daily at bedtime for 180 days. amantadine HCl (SYMMETREL) 100 mg tablet Take 1 tablet by mouth once daily. carbidopa IR-levodopa ER (CREXONT) 70-280 mg capsule Take 2 capsules by mouth three times a day. At 8am, 2pm and 8pm rasagiline (AZILECT) 1 mg tab Take 1 tablet by mouth once daily. carbidopa-levodopa (SINEMET) 25-100 mg per tablet 1 tab at 230AM, 2 tabs at 8AM, 11AM, 2PM, 5PM and 1.5 tabs at 8PM acetaminophen (TYLENOL) 325 mg tablet Take 2 tablets by mouth every 4 hours as needed for pain or fever (specify temp.). solifenacin succinate (SOLIFENACIN ORAL) Take by mouth daily at bedtime. Pt and unsure of dosage vibegron (GEMTESA) 75 mg tablet Take 1 tablet by mouth once daily. No current facility-administered medications for this visit. Objective Vital Signs: BP 130/84 (BP Site: Left Arm, BP Position: Sitting, BP Cuff Size: Regular Adult) Pulse 96 Ht 170.2 cm (5' 7) SpO2 98% BMI 18.23 kg/m Orthostatic Vitals: None for this encounter No LMP for male patient. Body mass index is 18.23 kg/m . Movement Disorders Scales Performed: MDS-UPDRS Motor subscale condition of exam Medication Off/On/Naiive ON Time of UPDRS 1042 Time of Last Medication 0900 Last Medication Taken Sinemet, Rasagiline, and baclofen 10 mg DBS Right N/A DBS Left N/A MDS-UPDRS Motor subscale scores Speech 3-Moderate. Speech is difficult to understand to the point that some, but not most sentences are poorly understood. Facial Expression 4-Severe. Masked facies with lips parted most of the time when the mouth is at rest. Rigidity Neck 3-Moderate. Rigidity detected without the activation maneuver. Full range of motion is achieved with effort. Rigidity Right Upper Extremity 1-Slight. Rigidity only detected with activation maneuver. Rigidity Left Upper Extremity 1-Slight. Rigidity only detected with activation maneuver. Rigidity Right Lower Extremity 2-Mild. Rigidity detected without the activation maneuver, but full range of motion is easily achieved. Rigidity Left Lower Extremity 2-Mild. Rigidity detected without the activation maneuver, but full range of motion is easily achieved. Finger Taps Right 1-Slight. a) the regular rhythm is broken with one or two interruptions or hesitations of the tapping movement, b) slight slowing, c) the amplitude decrements near the end of the 10 taps. Finger Taps Left 2-Mild. a) 3 to 5 interruptions during tapping, b) mild slowing, c) the amplitude decrements midway in the 10-tap sequence. Hand Movements Right 1-Slight. a) the regular rhythm is broken with one or two interruptions or hesitations of the movement, b) slight slowing, c) the amplitude decrements near the end of the task. Hand Movements Left 1-Slight. a) the regular rhythm is broken with one or two interruptions or hesitations of the movement, b) slight slowing, c) the amplitude decrements near the end of the task. Arm Movements Right 1-Slight. a) the regular rhythm is broken with one or two interruptions or hesitations of the movement, b) slight slowing, c) the amplitude decrements near the end of the sequence. Arm Movements Left 2-Mild. a) 3 to 5 interruptions during the movements, b) mild slowing, c) the amplitude decrements midway in the sequence. Toe Taps Right 2-Mild. a) 3 to 5 interruptions during the tapping movements, b) mild slowing, c) the amplitude decrements midway in the task. Toe Taps Left 4-Severe. Cannot or can only barely perform the task because of slowing, interruptions or decrements. Leg Agility Right 3-Moderate. a) more than 5 interruptions during the movement or at least one longer arrest (freeze) in ongoing movement, b) moderate slowing in speed, c) amplitude decrements after the first tap. Leg Agility Left 4-Severe. Cannot or can only barely perform the task because of slowing, interruptions or decrements. Arise From Chair 4-Severe. Unable to arise without help. Gait 4-Severe. Cannot walk at all or only with another person's assistance. Gait Freezing 0-Normal. No freezing. (deferred) Posture Stability 4-Severe. Very unstable, tends to lose balance spontaneously or with just a gentle pull on the shoulders. (deferred) Posture 3-Moderate. Stooped posture, scoliosis or leaning to one side that cannot be corrected volitionally to a normal posture by the patient. Body Bradykinesia 3-Moderate. Moderate global slowness and poverty of spontaneous movements. Postural Tremor Hand Right 0-Normal. No tremor. Postural Tremor Hand Left 0-Normal. No tremor. Kinetic Tremor Right 0-Normal. No tremor. Kinetic Tremor Left 0-Normal. No tremor. Rest Tremor Amplitude Right Upper Extremity 0-Normal. No tremor. Rest Tremor Amplitude Left Upper Extremity 0-Normal. No tremor. Rest Tremor Amplitude Right Lower Extremity 0-Normal. No tremor. Rest Tremor Amplitude Left Lower Extremity 0-Normal. No tremor. Rest Tremor Amplitude Lip/Jaw 0-Normal. No tremor. Rest Tremor Constancy 0-Normal. No tremor. MDS-UPDRS Motor subscale totals Left Total 16 Right Total 11 Midline Total 28 Tremor Total / 10 0 PIGD Total / 3 8 Overall Total 55 Change Better/Worse Better % Change Compared to Last Filed Total -5.17 Assessment and Plan: Assessment Mr. Larsen is a left-handed 73 year old man with idiopathic Parkinson's disease and frequent falls. His disease has been complicated by significant periods of rigidity triggered by stress and extreme temperatures, as well as other factors. The following are the current problems noted and addressed during this visit: 1. Parkinson's disease with dyskinesia and fluctuating manifestations (HCC) (G20.B2) - Experiencing worsening symptoms, particularly between 2:00-3:00 PM and 10:00-10:30 PM. - Discussed increasing the 2000 dose of Sinemet to 2 tablets as after that is his worse time of day and the one time he does not take 2 tablets - Previously on Rytary, which was effective but discontinued due to insurance issues. Advised to get on the waitlist for assistance funds from [employer] and the [employer]. - Discussed the possibility Vyalev pump if Rytary is not approved. - Initiated process to get Gocovri approved; signed necessary forms for a 4-week free trial. - Continue physical therapy and exercise regimen. 2. Depression, unspecified depression type (F32.A) - Experiencing depression intermittently. - Monitor symptoms; no immediate changes to current management. 3. Drooling (K11.7) - Noted improvement in drooling over the past week after eliminating chocolate from diet. 4. 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 - Continue current medication regimen. - Maintain medications and exercise to manage symptoms. Plan 07/22/2024 Visit: Parkinson's disease/Dystonia: Add 1/2 tablet of Sinemet at 8pm so you are taking 2 tablets I am changing the amantadine to Gocovri Continue exercising Continue physical therapy Continue botulinum toxin injections with Dr. Damon Enroll on the waiting lists for [employer] and the [facility] to help cover Rytary (extended-release carbidopa/levodopa); once you re approved, we will send the Rytary prescription to your pharmacy. Resume the [employer] speech exercises at the end of September; have your grandson continue practicing the exercises with you twice daily. Sialorrhea (drooling): You have been provided with a hand out on drooling. Please do not hesitate to let me know if you have any questions about anything you read. At your convenience, please provide us with a copy of your advanced directives (living will and durable power of criminal defense attorney for healthcare): By Email: Send your document(s) to as an attachment in either PDF, TIFF, or JPEG format. By Mail: [facility] Information Management, [employer] Advance Directive Processing [address] [place], [place] [address] By In person at any [facility] location Please note: You can use the address or fax number regardless of which [facility] you utilize, and we will make sure it is filed appropriately. Interested in clinical research? Not discussed Updated Movement Disorders Medication Schedule: Medications 2:30am 8am 11am 2pm 5pm 8pm 11pm Sinemet 25/100 1 2 2 2 2 2 Baclofen 10 mg 1 0.5 1 Rasagiline 1 mg 1 Gocovri 68.5mg 2 Clonazepam 0.5mg 1 Level of service : 52045 (40-68 min). Time spent 50 min on the day of service, which included preparing to see the patient, [id number] patient care, completing clinical documentation, obtaining and/or reviewing separately obtained history, performing a medically appropriate examination, counseling and educating the patient/family/caregiver, and ordering medications, tests, or procedures. Taisha John APRN.DOUGH MIXING MACHINE OPERATOR documented in this encounter [facility] 07-22-2024 Note HNO ID: [id number] Author: TAISHA JOHN APRN.JAYA Service: ? Author Type: Nurse Practitioner Type: Progress Notes Filed: 07/23/2024 16:18 Note Text: [facility] - FOLLOW UP EVALUATION Recording using ambient Yapmo software for draft documentation of the visit was discussed with the patient/authorized customer service representative teller; all questions welcomed and answered. Patient/authorized customer service representative teller agreed to proceed Nico Schmidt MD [address] [facility] [address] Dear Nico Schmidt MD: I had the pleasure of seeing Mr. Larsen for follow-up today. As you know he is a 73 year old left-handed male with a history of Parkinson's disease complicated by motor fluctuations and dyskinesia since 2012. Subjective Previous Plan-11/07/2023 Visit: Parkinson's disease/Dystonia: Continue current Parkinson's disease medication schedule though we may consider increasing the amantadine in the future Continue exercising Continue physical therapy I am adding clonazepam at bedtime to help the nighttime dystonia and insomnia. You will take 1/2 tablet at bedtime for a week and then take 1 tablet. For the dystonia, since at times the Baclofen seems to be making it worse, at 2pm, take 1/2 tablet for 5 days and then discontinue that dose. If it is better, let me know and we will discuss weaning you off other doses. If it is worse, then you can go back on it and we may increase the dose if needed. Interval History: Kavon is accompanied by his , who provides additional history. Kavon reports increased episodes of rigidity and bouncing movements, particularly between 2:00 and 3:00 PM and around 10:30 PM. He does not endorse tremors or falls. He previously took Rytary, which he found more effective, but discontinued it due to insurance issues. He has not tried the Crexont for the same reason. He does not endorse lightheadedness upon standing, urinary issues, or constipation. He reports a reduction in drooling over the past week, which he attributes to avoiding chocolate. He does not endorse swallowing difficulties and is using a device to strengthen tongue muscles. He reports sleeping well without acting out dreams and does not take naps during the day. He does not endorse fatigue. He occasionally experiences mild swelling in his feet, particularly in the toes. He reports occasional feelings of depression but does not endorse anxiety, apathy, or compulsive behaviors. He does not endorse hallucinations and describes his memory and thinking as pretty good. He is currently participating in physical therapy and works with a head athletic trainer twice a week. He is also involved in the [employer] and plans to resume the program at the end of September. His grandson assists him with exercises from the [employer] project twice a day. He has a living will and a durable power of criminal defense attorney for healthcare. He does not currently have palliative care services. Other symptoms and details are noted below in the completed questionnaire. 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) Questionnaires: In addition, the following areas that may be affected by abnormal involuntary movements were evaluated: Daily activities Difficulties with eating: Difficulties in dressing: Difficulties with hygiene activities: Difficulties with handwriting: Difficulties with doing hobbies and other activities: Difficulties turning in bed: Difficulties getting out of bed, car or chair: Tremors/Gait/Balance Shaking or tremors: Walking and balance problems: Number of falls in the Last Month: Gait freezing: Autonomic/Pain Lightheadeness on standing: Urinary problems: Waiting for [employer] approval Constipation problems: Pain and other sensations: Speech/Swallowing Speech problems: Drooling: Chewing and swallowing problems: Sleep/Fatigue Sleep problems: Daytime sleepiness: Fatigue: In addition, the following non-motor symptoms and palliative concerns were evaluated: Sleep/Fatigue: REM sleep behavior disorder: No Restless Legs Syndrome: No Leg swelling: Occasionally one foot or the other is swollen. Impaired sense of smell: Yes Cognition: Memory and Thinkin - Slight. Impairment appreciated by me or my caregiver with no concrete interference with my ability to carry out normal activities and social interactions. Hallucinations and Psychosis: 0 - Martine (more content not included)... [facility] 07-02-2024 Note HNO ID: [id number] Author: CAROLINA DAMON MD Service: ? Author Type: Physician Type: Progress Notes Filed: 07/02/2024 11:40 Note Text: [facility] NEUROLOGICAL TENRIISM NEUROTOXIN VISIT Date: July 02, 2024 Name: Katharine Larsen SUBJECTIVE: Subjective history Injections were effective. Toes never uncurled but pain and spasms were better. Effect wore off 5 weeks ago so he was able to realize that it is working. 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) Date of diagnosis: 11/12/2018 Other treatments that have been tried and failed: Medications for Parkinson's Date of first neurotoxin treatment: 03/08/2019 Type of neurotoxin given: OnabotulinumtoxinA (Botox) Frequency of current neurotoxin treatment: 90 days Estimated frequency and duration of treatment: continue with current injection interval; will reassess after 1 year Last Injection Notes Date of last Injection: 04/02/2024 Type of neurotoxin: OnabotulinumtoxinA (Botox) Total amount injected: 190 units Degree of effectiveness of last injection:50% Duration of effect: 8 week(s) Side effects related to last injection: None Current pain symptoms: No Current functional limitations: moderate Last neurotoxin regimen: Med right left midline Quadratus plantae 45 50 Flexor digitorum brevis 45 50 Total: 190 Allergies: ALLERGIES Allergen Reactions Abilify [Aripiprazo* Contraindication-Medical Surgical People with Parkinson's disease should not take this or other antipsychotics except Nuplazid, Seroquel, and Clozaril can be prescribed. Ciprofloxacin Other: See Comments Tendon rupture (see black box warning)-this occurred in him when Cipro was used for cellulitis/sepsis Compazine [Prochlor* Contraindication-Medical Surgical This should not be given to people with Parkinson's disease. If not otherwise contraindicated, Zofran should be given instead. Haldol [Haloperidol] Contraindication-Medical Surgical People with Parkinson's disease should not take this or other antipsychotics except Nuplazid, Seroquel, and Clozaril can be prescribed. Penicillin G Unknown Was told as a child he was allergic to this medication Penicillins Unknown Phenergan [Prometha* Contraindication-Medical Surgical This should not be given to people with Parkinson's disease. If not otherwise contraindicated, Zofran should be given instead. Reglan [Metoclopram* Contraindication-Medical Surgical This should not be given to people with Parkinson's disease. If not otherwise contraindicated, Zofran should be given instead. Current Medications: Current Outpatient Medications Medication Sig baclofen 10 mg tablet Take 1 tablet in the morning and afternoon and 0.5-1 tablet in the evening. clonazePAM (KLONOPIN) 0.5 mg tablet Take 1 tablet by mouth daily at bedtime for 180 days. amantadine HCl (SYMMETREL) 100 mg tablet Take 1 tablet by mouth once daily. rasagiline (AZILECT) 1 mg tab Take 1 tablet by mouth once daily. carbidopa-levodopa (SINEMET) 25-100 mg per tablet 1 tab at 230AM, 2 tabs at 8AM, 11AM, 2PM, 5PM and 1.5 tabs at 8PM (Patient taking differently: 1 tab at 330AM, 2 tabs at 8AM, 11AM, 2PM, 5PM and 1.5 tabs at 8PM) acetaminophen (TYLENOL) 325 mg tablet Take 2 tablets by mouth every 4 hours as needed for pain or fever (specify temp.). carbidopa IR-levodopa ER (CREXONT) 70-280 mg capsule Take 2 capsules by mouth three times a day. At 8am, 2pm and 8pm vibegron (GEMTESA) 75 mg tablet Take 1 tablet by mouth once daily. (Patient not taking: Reported on 04/02/2024) solifenacin succinate (SOLIFENACIN ORAL) Take by mouth daily at bedtime. Pt and unsure of dosage Current Facility-Administered Medications Medication Dose Route Frequency onabotulinum toxin type A 300 Units injection (BOTOX) 300 Units INTRAMUSCULAR ONCE OBJECTIVE: BP 161/97 (BP Site: Left Arm, BP Position: Sitting, BP Cuff Size: Regular Adult) Pulse 81 SpO2 95% Other notable exam findings: moderate curling of toes both feet. ASSESSMENT AND PLAN: Mr. 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 Botox is effective with wearing off last time 4-5 weeks early. Dose increased today. After obtaining informed consent, neurotoxin injections were carried out as outlined below. Current Injection Note Type of neurotoxin: OnabotulinumtoxinA (Botox) Total amount drawn: 300 units Total amount injected: 240 units Total amount wasted: 60 units Dilution: 1 cc NSS/100 U Administered with EMG guidance: No Administered with Ultrasound guidance: No Lot#: [id number] Exp Date: 11/2026 Today's neurotoxin regimen: Med right left midline Quadratus plantae 60 60 Flexor digitorum brevis 60 60 Total: 240 Future plan of care: Follow up: 3 months Neurotoxin change: No Dose change:No Carolina Damon MD July 02, 2024 11:38 AM Dept of NEUROLOGY TIME OUT/ PROCEDURE NOTE: Informed consent Ludin (more content not included)... [facility] 07-02-2024 History of Present illness Narrative Images from the original note were not included. [facility] NEUROTOXIN VISIT Date: July 02, 2024 Name: Katharine Larsen SUBJECTIVE: Subjective history Injections were effective. Toes never uncurled but pain and spasms were better. Effect wore off 5 weeks ago so he was able to realize that it is working. 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) Date of diagnosis: 11/12/2018 Other treatments that have been tried and failed: Medications for Parkinson's Date of first neurotoxin treatment: 03/08/2019 Type of neurotoxin given: OnabotulinumtoxinA (Botox) Frequency of current neurotoxin treatment: 90 days Estimated frequency and duration of treatment: continue with current injection interval; will reassess after 1 year Last Injection Notes Date of last Injection: 04/02/2024 Type of neurotoxin: OnabotulinumtoxinA (Botox) Total amount injected: 190 units Degree of effectiveness of last injection:50% Duration of effect: 8 week(s) Side effects related to last injection: None Current pain symptoms: No Current functional limitations: moderate Last neurotoxin regimen: Med right left midline Quadratus plantae 45 50 Flexor digitorum brevis 45 50 Total: 190 Allergies: ALLERGIES Allergen Reactions Abilify [Aripiprazo* Contraindication-Medical Surgical People with Parkinson's disease should not take this or other antipsychotics except Nuplazid, Seroquel, and Clozaril can be prescribed. Ciprofloxacin Other: See Comments Tendon rupture (see black box warning)-this occurred in him when Cipro was used for cellulitis/sepsis Compazine [Prochlor* Contraindication-Medical Surgical This should not be given to people with Parkinson's disease. If not otherwise contraindicated, Zofran should be given instead. Haldol [Haloperidol] Contraindication-Medical Surgical People with Parkinson's disease should not take this or other antipsychotics except Nuplazid, Seroquel, and Clozaril can be prescribed. Penicillin G Unknown Was told as a child he was allergic to this medication Penicillins Unknown Phenergan [Prometha* Contraindication-Medical Surgical This should not be given to people with Parkinson's disease. If not otherwise contraindicated, Zofran should be given instead. Reglan [Metoclopram* Contraindication-Medical Surgical This should not be given to people with Parkinson's disease. If not otherwise contraindicated, Zofran should be given instead. Current Medications: Current Outpatient Medications Medication Sig baclofen 10 mg tablet Take 1 tablet in the morning and afternoon and 0.5-1 tablet in the evening. clonazePAM (KLONOPIN) 0.5 mg tablet Take 1 tablet by mouth daily at bedtime for 180 days. amantadine HCl (SYMMETREL) 100 mg tablet Take 1 tablet by mouth once daily. rasagiline (AZILECT) 1 mg tab Take 1 tablet by mouth once daily. carbidopa-levodopa (SINEMET) 25-100 mg per tablet 1 tab at 230AM, 2 tabs at 8AM, 11AM, 2PM, 5PM and 1.5 tabs at 8PM (Patient taking differently: 1 tab at 330AM, 2 tabs at 8AM, 11AM, 2PM, 5PM and 1.5 tabs at 8PM) acetaminophen (TYLENOL) 325 mg tablet Take 2 tablets by mouth every 4 hours as needed for pain or fever (specify temp.). carbidopa IR-levodopa ER (CREXONT) 70-280 mg capsule Take 2 capsules by mouth three times a day. At 8am, 2pm and 8pm vibegron (GEMTESA) 75 mg tablet Take 1 tablet by mouth once daily. (Patient not taking: Reported on 04/02/2024) solifenacin succinate (SOLIFENACIN ORAL) Take by mouth daily at bedtime. Pt and unsure of dosage Current Facility-Administered Medications Medication Dose Route Frequency onabotulinum toxin type A 300 Units injection (BOTOX) 300 Units INTRAMUSCULAR ONCE OBJECTIVE: BP 161/97 (BP Site: Left Arm, BP Position: Sitting, BP Cuff Size: Regular Adult) Pulse 81 SpO2 95% Other notable exam findings: moderate curling of toes both feet. ASSESSMENT AND PLAN: Mr. 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 Botox is effective with wearing off last time 4-5 weeks early. Dose increased today. After obtaining informed consent, neurotoxin injections were carried out as outlined below. Current Injection Note Type of neurotoxin: OnabotulinumtoxinA (Botox) Total amount drawn: 300 units Total amount injected: 240 units Total amount wasted: 60 units Dilution: 1 cc NSS/100 U Administered with EMG guidance: No Administered with Ultrasound guidance: No Lot#: [id number] Exp Date: 11/2026 Today's neurotoxin regimen: Med right left midline Quadratus plantae 60 60 Flexor digitorum brevis 60 60 Total: 240 Future plan of care: Follow up: 3 months Neurotoxin change: No Dose change:No Carolina Damon MD July 02, 2024 11:38 AM Dept of NEUROLOGY TIME OUT/ PROCEDURE NOTE: Informed consent Katharine Larsen Medical Record: [id number] Procedure: neurotoxin intramuscular injection The risks, benefits and anticipated outcomes of the procedure, the risks and benefits of the alternatives to the procedure and the roles and tasks of the personnel to be involved were discussed with the patient and the patient consents to the procedure and agrees to proceed. I verify that I personally obtained Katharine Newsome Suzie's consent. Carolina Damon MD July 02, 2024 11:38 AM UNIVERSAL [employer]OTOCOL / SAFETY CHECKLIST Procedure to be Performed: neurotoxin injection Sign In: A Moment of CARE was completed. Personnel directly involved wiht the procedure wore the appropriate PPE (Personal Protective Equipment). No special equipment needed. Patient/Surrogate Stated/Verified: Patient name Date of Relative allergies The intended procedure Time Out Communication: Intended patient and procedure match the source documents. Consent documented and matches the intended procedure. No relevant labs, photos, and/or imaging studies were applicable for review. No correct side/site applicable for marking and visibility. Medications required for procedure verified. No fire risk assessment and interventions applicable. No implant(s) inserted. Sign Out: No specimen collected. No instruments, equipment or retained foreign bodies applicable. Post-procedure follow-up management communicated and Plan of Care Visit completed when applicable. -- Carolina Damon MD documented in this encounter [facility] 05-06-2024 Telephone encounter Note Request from patient requesting refill. Please E-Scribe to Mj. Last OV: 03/16/24 with Taisha Future OV: 06/03/24 with BLW Requested Prescriptions Pending Prescriptions Disp Refills clonazePAM (KLONOPIN) 0.5 mg tablet 30 tablet 5 Sig: Take 1/2 tablet at bedtime for one week and then take 1 tablet at bedtime Sowmya Poon [facility] 05-06-2024 Miscellaneous Notes Request from patient requesting refill. Please E-Scribe to Mj. Last OV: 03/16/24 with Taisha Future OV: 06/03/24 with BLW Requested Prescriptions Pending Prescriptions Disp Refills clonazePAM (KLONOPIN) 0.5 mg tablet 30 tablet 5 Sig: Take 1/2 tablet at bedtime for one week and then take 1 tablet at bedtime Sowmya Poon documented in this encounter [facility] 05-03-2024 Telephone encounter Note MyChart message not read as of 05/03/2024. Called Patient-no answer. Left detailed voicemail relaying message below. Unable to Reach letter mailed to address on file. Patient advised to contact our office with any questions or concerns. Bere Batres [facility] 05-03-2024 Miscellaneous Notes Grapeshot message not read as of 05/03/2024. Called Patient-no answer. Left detailed voicemail relaying message below. Unable to Reach letter mailed to address on file. Patient advised to contact our office with any questions or concerns. Bere Batres documented in this encounter [facility] 04-02-2024 Note HNO ID: [id number] Author: CAROLINA DAMON MD Service: ? Author Type: Physician Type: Progress Notes Filed: 04/02/2024 10:18 Note Text: [facility] NEUROLOGICAL TENRIISM NEUROTOXIN VISIT Date: April 02, 2024 Name: Katharine Larsen SUBJECTIVE: Subjective history Injections were not effective. Toes never uncurled. 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) Date of diagnosis: 11/12/2018 Other treatments that have been tried and failed: Medications for Parkinson's Date of first neurotoxin treatment: 03/08/2019 Type of neurotoxin given: OnabotulinumtoxinA (Botox) Frequency of current neurotoxin treatment: 90 days Estimated frequency and duration of treatment: continue with current injection interval; will reassess after 1 year Last Injection Notes Date of last Injection: 11/14/2023 Type of neurotoxin: OnabotulinumtoxinA (Botox) Total amount injected: 190 units Degree of effectiveness of last injection:0% Duration of effect: 0 week(s) Side effects related to last injection: None Current pain symptoms: No Current functional limitations: moderate Last neurotoxin regimen: Med right left midline Quadratus plantae 45 50 Flexor digitorum brevis 45 50 Total: 190 Questionnaires: Allergies: ALLERGIES Allergen Reactions Abilify [Aripiprazo* Contraindication-Medical Surgical People with Parkinson's disease should not take this or other antipsychotics except Nuplazid, Seroquel, and Clozaril can be prescribed. Ciprofloxacin Other: See Comments Tendon rupture (see black box warning)-this occurred in him when Cipro was used for cellulitis/sepsis Compazine [Prochlor* Contraindication-Medical Surgical This should not be given to people with Parkinson's disease. If not otherwise contraindicated, Zofran should be given instead. Haldol [Haloperidol] Contraindication-Medical Surgical People with Parkinson's disease should not take this or other antipsychotics except Nuplazid, Seroquel, and Clozaril can be prescribed. Penicillin G Unknown Was told as a child he was allergic to this medication Penicillins Unknown Phenergan [Prometha* Contraindication-Medical Surgical This should not be given to people with Parkinson's disease. If not otherwise contraindicated, Zofran should be given instead. Reglan [Metoclopram* Contraindication-Medical Surgical This should not be given to people with Parkinson's disease. If not otherwise contraindicated, Zofran should be given instead. Current Medications: Current Outpatient Medications Medication Sig amantadine HCl (SYMMETREL) 100 mg tablet Take 1 tablet by mouth once daily. carbidopa IR-levodopa ER (CREXONT) 70-280 mg capsule Take 2 capsules by mouth three times a day. At 8am, 2pm and 8pm rasagiline (AZILECT) 1 mg tab Take 1 tablet by mouth once daily. clonazePAM (KLONOPIN) 0.5 mg tablet Take 1/2 tablet at bedtime for one week and then take 1 tablet at bedtime carbidopa-levodopa (SINEMET) 25-100 mg per tablet 1 tab at 230AM, 2 tabs at 8AM, 11AM, 2PM, 5PM and 1.5 tabs at 8PM baclofen 10 mg tablet Take 1 tablet in the morning and afternoon and 1/2 tablet in the evening for one week and then take 1 tablet three times daily acetaminophen (TYLENOL) 325 mg tablet Take 2 tablets by mouth every 4 hours as needed for pain or fever (specify temp.). vibegron (GEMTESA) 75 mg tablet Take 1 tablet by mouth once daily. (Patient not taking: Reported on 04/02/2024) solifenacin succinate (SOLIFENACIN ORAL) Take by mouth daily at bedtime. Pt and unsure of dosage (Patient not taking: Reported on 04/02/2024) Current Facility-Administered Medications Medication Dose Route Frequency onabotulinum toxin type A 200 Units injection (BOTOX) 200 Units INTRAMUSCULAR ONCE OBJECTIVE: BP 172/105 (BP Site: Left Arm, BP Position: Sitting, BP Cuff Size: Regular Adult) Pulse 88 SpO2 96% Other notable exam findings: moderate curling of toes both feet. ASSESSMENT AND PLAN: Mr. 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 Last injection as not helpful. Repeated same injection pattern. Will increase dose next time if again still not effective. After obtaining informed consent, neurotoxin injections were carried out as outlined below. Current Injection Note Type of neurotoxin: OnabotulinumtoxinA (Botox) Total amount drawn: 200 units Total amount injected: 190 units Total amount wasted: 10 units Dilution: 1 cc NSS/100 U Administered with EMG guidance: No Administered with Ultrasound guidance: No Lot#: [id number] Exp Date: 05/2026 Today's neurotoxin regimen: Med right left midline Quadratus plantae 45 50 Flexor digitorum brevis 45 50 Total: 190 Future plan of care: Follow up: 3 months Neurotoxin change: No Dose change:No Carolina Damon MD April 02, 2024 10:17 AM Dept of NEUROLOGY TIME OUT/ PROCEDURE NOTE: Informed consent Katharine Larsen [facility] (more content not included)... [facility] 04-02-2024 History of Present illness Narrative Images from the original note were not included. [facility] NEUROTOXIN VISIT Date: April 02, 2024 Name: Katharine Larsen SUBJECTIVE: Subjective history Injections were not effective. Toes never uncurled. 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) Date of diagnosis: 11/12/2018 Other treatments that have been tried and failed: Medications for Parkinson's Date of first neurotoxin treatment: 03/08/2019 Type of neurotoxin given: OnabotulinumtoxinA (Botox) Frequency of current neurotoxin treatment: 90 days Estimated frequency and duration of treatment: continue with current injection interval; will reassess after 1 year Last Injection Notes Date of last Injection: 11/14/2023 Type of neurotoxin: OnabotulinumtoxinA (Botox) Total amount injected: 190 units Degree of effectiveness of last injection:0% Duration of effect: 0 week(s) Side effects related to last injection: None Current pain symptoms: No Current functional limitations: moderate Last neurotoxin regimen: Med right left midline Quadratus plantae 45 50 Flexor digitorum brevis 45 50 Total: 190 Questionnaires: Allergies: ALLERGIES Allergen Reactions Abilify [Aripiprazo* Contraindication-Medical Surgical People with Parkinson's disease should not take this or other antipsychotics except Nuplazid, Seroquel, and Clozaril can be prescribed. Ciprofloxacin Other: See Comments Tendon rupture (see black box warning)-this occurred in him when Cipro was used for cellulitis/sepsis Compazine [Prochlor* Contraindication-Medical Surgical This should not be given to people with Parkinson's disease. If not otherwise contraindicated, Zofran should be given instead. Haldol [Haloperidol] Contraindication-Medical Surgical People with Parkinson's disease should not take this or other antipsychotics except Nuplazid, Seroquel, and Clozaril can be prescribed. Penicillin G Unknown Was told as a child he was allergic to this medication Penicillins Unknown Phenergan [Prometha* Contraindication-Medical Surgical This should not be given to people with Parkinson's disease. If not otherwise contraindicated, Zofran should be given instead. Reglan [Metoclopram* Contraindication-Medical Surgical This should not be given to people with Parkinson's disease. If not otherwise contraindicated, Zofran should be given instead. Current Medications: Current Outpatient Medications Medication Sig amantadine HCl (SYMMETREL) 100 mg tablet Take 1 tablet by mouth once daily. carbidopa IR-levodopa ER (CREXONT) 70-280 mg capsule Take 2 capsules by mouth three times a day. At 8am, 2pm and 8pm rasagiline (AZILECT) 1 mg tab Take 1 tablet by mouth once daily. clonazePAM (KLONOPIN) 0.5 mg tablet Take 1/2 tablet at bedtime for one week and then take 1 tablet at bedtime carbidopa-levodopa (SINEMET) 25-100 mg per tablet 1 tab at 230AM, 2 tabs at 8AM, 11AM, 2PM, 5PM and 1.5 tabs at 8PM baclofen 10 mg tablet Take 1 tablet in the morning and afternoon and 1/2 tablet in the evening for one week and then take 1 tablet three times daily acetaminophen (TYLENOL) 325 mg tablet Take 2 tablets by mouth every 4 hours as needed for pain or fever (specify temp.). vibegron (GEMTESA) 75 mg tablet Take 1 tablet by mouth once daily. (Patient not taking: Reported on 04/02/2024) solifenacin succinate (SOLIFENACIN ORAL) Take by mouth daily at bedtime. Pt and unsure of dosage (Patient not taking: Reported on 04/02/2024) Current Facility-Administered Medications Medication Dose Route Frequency onabotulinum toxin type A 200 Units injection (BOTOX) 200 Units INTRAMUSCULAR ONCE OBJECTIVE: BP 172/105 (BP Site: Left Arm, BP Position: Sitting, BP Cuff Size: Regular Adult) Pulse 88 SpO2 96% Other notable exam findings: moderate curling of toes both feet. ASSESSMENT AND PLAN: Mr. 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 Last injection as not helpful. Repeated same injection pattern. Will increase dose next time if again still not effective. After obtaining informed consent, neurotoxin injections were carried out as outlined below. Current Injection Note Type of neurotoxin: OnabotulinumtoxinA (Botox) Total amount drawn: 200 units Total amount injected: 190 units Total amount wasted: 10 units Dilution: 1 cc NSS/100 U Administered with EMG guidance: No Administered with Ultrasound guidance: No Lot#: [id number] Exp Date: 05/2026 Today's neurotoxin regimen: Med right left midline Quadratus plantae 45 50 Flexor digitorum brevis 45 50 Total: 190 Future plan of care: Follow up: 3 months Neurotoxin change: No Dose change:No Carolina Damon MD April 02, 2024 10:17 AM Dept of NEUROLOGY TIME OUT/ PROCEDURE NOTE: Informed consent Katharine Jerod Larsen Medical Record: [id number] Procedure: neurotoxin intramuscular injection The risks, benefits and anticipated outcomes of the procedure, the risks and benefits of the alternatives to the procedure and the roles and tasks of the personnel to be involved were discussed with the patient and the patient consents to the procedure and agrees to proceed. I verify that I personally obtained Katharine Larsen's consent. Carolina Damon MD April 02, 2024 10:17 AM UNIVERSAL PROTOCOL / SAFETY CHECKLIST Procedure to be Performed: neurotoxin injection Sign In: A Moment of CARE was completed. Personnel directly involved wiht the procedure wore the appropriate PPE (Personal Protective Equipment). No special equipment needed. Patient/Surrogate Stated/Verified: Patient name Date of Relative allergies The intended procedure Time Out Communication: Intended patient and procedure match the source documents. Consent documented and matches the intended procedure. No relevant labs, photos, and/or imaging studies were applicable for review. No correct side/site applicable for marking and visibility. Medications required for procedure verified. No fire risk assessment and interventions applicable. No implant(s) inserted. Sign Out: No specimen collected. No instruments, equipment or retained foreign bodies applicable. Post-procedure follow-up management communicated and Plan of Care Visit completed when applicable. -- Carolina Damon MD documented in this encounter [facility] 03-16-2024 Instructions Taisha John APRN.[facility] 03/16/2024 4:41 PM EST It was a pleasure to see you today. We addressed the following diagnoses: Parkinson's disease with dyskinesia and fluctuating manifestations (hcc) (primary encounter diagnosis) Dysphagia, unspecified type Dystonia My recommendations are as follows: 03/16/2024 Visit: Parkinson's disease/Dystonia: When you receive Crexont, discontinue the Sinemet and take Crexont 280 two capsules three times daily at 8am, 2pm and 8pm. You may need a fourth dose, but we will start with this and then let me know how you are doing. Please call the [employer] today as they are currently accepting applications The website is [email or web address] Continue exercising I have ordered physical therapy Check with the physical therapist you see and ask if they do custom wheelchair evaluations. If not, then let me know and we can set you up for one here. Continue clonazepam Continue Baclofen Dysphagia (difficulty swallowing): I have ordered speech therapy for you Vitamin B12: Your last Vitamin B12 was low. Please add a Vit B12 supplement, 500mcg. They do make these that can dissolve under your tongue which may be helpful due to your swallowing. Other: Dr. Alcides Bruce is the primary care provider we discussed. Movement Disorders Medication Schedule: Medications 8am 2pm 8pm 11pm Crexont 280mg 2 2 2 Baclofen 10 mg 1 1 1 Rasagiline 1 mg 1 Amantadine 100 mg 1 Clonazepam 0.5mg 1 Return in 3 months (on 06/03/2024). If there are any concerns before your next visit, please call or you can send a message through [employer]. You can also now schedule and select appointments through [employer]. Taisha John APRN.JAYA documented in this encounter [facility] 03-16-2024 History of Present illness Narrative [facility] - FOLLOW UP EVALUATION Primary Movement Disorders Neurologist: Juan R John MD Primary Movement Disorders [place]: JAYA Nelson MD [address] [facility] [id number] Dear Nico Schmidt MD: I had the pleasure of seeing Mr. Larsen for follow-up today. As you know he is a 73 year old left-handed male with a history of Parkinson's disease complicated by motor fluctuations and dyskinesia since 2012. He is seen with his and grandson. Subjective 11/07/2023 Visit: Parkinson's disease/Dystonia: Continue current Parkinson's disease medication schedule though we may consider increasing the amantadine in the future Continue exercising Continue physical therapy I am adding clonazepam at bedtime to help the nighttime dystonia and insomnia. You will take 1/2 tablet at bedtime for a week and then take 1 tablet. For the dystonia, since at times the Baclofen seems to be making it worse, at 2pm, take 1/2 tablet for 5 days and then discontinue that dose. If it is better, let me know and we will discuss weaning you off other doses. If it is worse, then you can go back on it and we may increase the dose if needed. Urology: I have placed a consult for urology, but since you have a known UTI, if you cannot get in soon, please go to an [facility] clinic Interval History: He was sick with flu-like symptoms in January and this took a toll on him. He is having significant stiffness right now in the office, but they said this is not typical for him. His main concern is food getting stuck in his mouth and not swallowing. It is not any worse then when he has his last MBS. His feeding tube has been removed. The clonazepam prescribed at his last visit, helped significantly with sleep and morning dystonia. Movement Disorders Medications Schedule - as of the start of the visit: Medications 230am 8am 11am 2pm 5pm 8pm 11pm Sinemet 25/100 1 2 2 2 2 1.5 Baclofen 10 mg 1 1 Rasagiline 1 mg 1 Amantadine 100 mg 1 Clonazepam 0.5mg 1/2->1 Parkinson's Motor Complications Medication benefit onset: 30 minutes Medication duration: 4 hours Wearing off: yes Painful off-state dystonia: yes Dyskinesia: yes Prior Anti-Parkinson Therapies Amantadine IR Carbidopa/Levodopa ER (Rytary) Rasagiline Questionnaires: In addition, the following areas that may be affected by abnormal involuntary movements were evaluated: Daily activities Difficulties with eating: Yes (mild) Difficulties in dressing: Yes (moderate) Difficulties with hygiene activities: Yes (mild) Difficulties with handwriting: Yes (moderate) Difficulties with doing hobbies and other activities: Yes (slight) Difficulties turning in bed: Yes (mild) Difficulties getting out of bed, car or chair: Yes (severe) Tremors/Gait/Balance Shaking or tremors: Yes (slight) Walking and balance problems: Yes (severe) He does walk some with PT. Number of falls in the Last Month: 0 Gait freezin (none) Autonomic/Pain Lightheadeness on standin (none) Urinary problems: Yes (slight) Constipation problems: 0 (none) Pain and other sensations: Yes (slight) Speech/Swallowing Speech problems: Yes (moderate) Drooling: Yes (moderate) Chewing and swallowing problems: Yes (slight) Sleep/Fatigue Sleep problems: Yes (moderate) He sleeps like a rock with the clonazepam. Daytime sleepiness: Yes (slight) Fatigue: Yes (slight) Mood/Behavior Depression: PHQ-9 Score: 4 usually representing no significant (0-4) depression. Anxiety: KAVIN-7 Total Score: 1 usually representing no significant (0-4) anxiety. Finally, the following table shows the patient's overall global physical and mental health using the PROMIS scale: PROMIS-10 Flowsheet Row Office Visit from 03/16/2024 in Neurology Office Visit from 11/07/2023 in Neurology Global Physical Health T Score 39.8 34.9 Global Mental Health T Score 53.3 50.8 0-10 Standard Pain Scale 4 3 *PROMIS-10 scoring scale: mean = 50, over 50 is above average, under 50 is below average In addition, the following non-motor symptoms and palliative concerns were evaluated: Sleep/Fatigue: REM sleep behavior disorder: No Restless Legs Syndrome: No Leg swelling: Occasionally one foot or the other is swollen. Impaired sense of smell: Yes Cognition: Memory and Thinkin - Slight. Impairment appreciated by me or my caregiver with no concrete interference with my ability to carry out normal activities and social interactions. Hallucinations and Psychosis: 0 - Normal. No hallucinations or psychotic behavior. Depressed Mood: 0 - Normal. No depressed mood. He said he gets agitated with what he is not allowed to do, but he is not depressed. Anxious Mood: 0 - Normal. No anxious feelings. Apathy: 0 - Normal. No apathy. Impulse Control: 0 - Normal. No problems present. MoCA Cognitive assessment: Palliative Concerns: Caregiver burden: She said she is ok but he said she is stressed to the max. She said she feels rushed. Spiritual concerns: No Advanced directives on file: Palliative services: No He had this previously. Therapy and Exercise: Last PT Date: 04/25/2022 (with Gayle Alicea) for acute care eval - per provider October 2023 Last OT Date: 04/25/2022 (with Jaimee Vazquez) for acute care eval - per provider March [address] Date: 04/02/2022 (with Teresa Ferguson) for acute care eval - per provider March 2023 Exercises Regularly: Yes Chair exercises and works with a hop strainer PD Health Maintenance Routine Eye Exams: yes Routine Skin Exams: no Vit B12: 352 April 2022 ALLERGIES Allergen Reactions Abilify [Aripiprazo* Contraindication-Medical Surgical People with Parkinson's disease should not take this or other antipsychotics except Nuplazid, Seroquel, and Clozaril can be prescribed. Ciprofloxacin Other: See Comments Tendon rupture (see black box warning)-this occurred in him when Cipro was used for cellulitis/sepsis Compazine [Prochlor* Contraindication-Medical Surgical This should not be given to people with Parkinson's disease. If not otherwise contraindicated, Zofran should be given instead. Haldol [Haloperidol] Contraindication-Medical Surgical People with Parkinson's disease should not take this or other antipsychotics except Nuplazid, Seroquel, and Clozaril can be prescribed. Penicillin G Unknown Was told as a child he was allergic to this medication Penicillins Unknown Phenergan [Prometha* Contraindication-Medical Surgical This should not be given to people with Parkinson's disease. If not otherwise contraindicated, Zofran should be given instead. Reglan [Metoclopram* Contraindication-Medical Surgical This should not be given to people with Parkinson's disease. If not otherwise contraindicated, Zofran should be given instead. Current Outpatient Medications Medication Sig rasagiline (AZILECT) 1 mg tab Take 1 tablet by mouth once daily. clonazePAM (KLONOPIN) 0.5 mg tablet Take 1/2 tablet at bedtime for one week and then take 1 tablet at bedtime carbidopa-levodopa (SINEMET) 25-100 mg per tablet 1 tab at 230AM, 2 tabs at 8AM, 11AM, 2PM, 5PM and 1.5 tabs at 8PM baclofen 10 mg tablet Take 1 tablet in the morning and afternoon and 1/2 tablet in the evening for one week and then take 1 tablet three times daily acetaminophen (TYLENOL) 325 mg tablet Take 2 tablets by mouth every 4 hours as needed for pain or fever (specify temp.). solifenacin succinate (SOLIFENACIN ORAL) Take by mouth daily at bedtime. Pt and unsure of dosage amantadine HCl (SYMMETREL) 100 mg tablet Take 1 tablet by mouth once daily. carbidopa IR-levodopa ER (CREXONT) 70-280 mg capsule Take 2 capsules by mouth three times a day. At 8am, 2pm and 8pm vibegron (GEMTESA) 75 mg tablet Take 1 tablet by mouth once daily. No current facility-administered medications for this visit. Objective Vital Signs: BP 139/87 (BP Site: Left Arm, BP Position: Sitting, BP Cuff Size: Regular Adult) Pulse 95 Ht 170.2 cm (5' 7) SpO2 99% BMI 18.23 kg/m Orthostatic Vitals: None for this encounter No LMP for male patient. Body mass index is 18.23 kg/m . Movement Disorders Scales Performed: MDS-UPDRS Motor subscale condition of exam Medication Off/On/Naiive Time of UPDRS 1619 Time of Last Medication 1500 Last Medication Taken DBS Right N/A DBS Left N/A MDS-UPDRS Motor subscale scores Speech 3-Moderate. Speech is difficult to understand to the point that some, but not most sentences are poorly understood. Facial Expression 3-Moderate. Masked facies with lips parted some of the time when the mouth is at rest. Finger Taps Right 1-Slight. a) the regular rhythm is broken with one or two interruptions or hesitations of the tapping movement, b) slight slowing, c) the amplitude decrements near the end of the 10 taps. Finger Taps Left 2-Mild. a) 3 to 5 interruptions during tapping, b) mild slowing, c) the amplitude decrements midway in the 10-tap sequence. Hand Movements Right 1-Slight. a) the regular rhythm is broken with one or two interruptions or hesitations of the movement, b) slight slowing, c) the amplitude decrements near the end of the task. Hand Movements Left 1-Slight. a) the regular rhythm is broken with one or two interruptions or hesitations of the movement, b) slight slowing, c) the amplitude decrements near the end of the task. Arm Movements Right 1-Slight. a) the regular rhythm is broken with one or two interruptions or hesitations of the movement, b) slight slowing, c) the amplitude decrements near the end of the sequence. Arm Movements Left 1-Slight. a) the regular rhythm is broken with one or two interruptions or hesitations of the movement, b) slight slowing, c) the amplitude decrements near the end of the sequence. Toe Taps Right 2-Mild. a) 3 to 5 interruptions during the tapping movements, b) mild slowing, c) the amplitude decrements midway in the task. Toe Taps Left 4-Severe. Cannot or can only barely perform the task because of slowing, interruptions or decrements. Leg Agility Right 3-Moderate. a) more than 5 interruptions during the movement or at least one longer arrest (freeze) in ongoing movement, b) moderate slowing in speed, c) amplitude decrements after the first tap. Leg Agility Left 3-Moderate. a) more than 5 interruptions during the movement or at least one longer arrest (freeze) in ongoing movement, b) moderate slowing in speed, c) amplitude decrements after the first tap. Postural Tremor Hand Right 0-Normal. No tremor. Postural Tremor Hand Left 0-Normal. No tremor. Kinetic Tremor Right 0-Normal. No tremor. Kinetic Tremor Left 0-Normal. No tremor. Rest Tremor Amplitude Right Upper Extremity 0-Normal. No tremor. Rest Tremor Amplitude Left Upper Extremity 0-Normal. No tremor. Rest Tremor Amplitude Right Lower Extremity 0-Normal. No tremor. Rest Tremor Amplitude Left Lower Extremity 0-Normal. No tremor. Rest Tremor Amplitude Lip/Jaw 0-Normal. No tremor. Rest Tremor Constancy 0-Normal. No tremor. Assessment and Plan: Assessment Mr. Larsen is a left-handed 73 year old year old male with idiopathic Parkinson's disease and frequent falls. His disease has been complicated by significant periods of rigidity triggered by stress and extreme temperatures, as well as other factors. Adding bedtime clonazepam at the last visit really helped. He asked about going back on Rytary and we discussed trying Crexont instead and hopefully it will work as well or better. We may have to adjust the dosing as he takes Sinemet quite frequently. I also looked up and found that the [employer] is accepting applicants with Parkinson's disease so encouraged him to apply for it today so he can get coverage. The following are the current problems noted and addressed during this visit: Parkinson's disease with dyskinesia and fluctuating manifestations (hcc) (primary encounter diagnosis) Dysphagia, unspecified type Dystonia Plan 03/16/2024 Visit: Parkinson's disease/Dystonia: When you receive Crexont, discontinue the Sinemet and take Crexont 280 two capsules three times daily at 8am, 2pm and 8pm. You may need a fourth dose, but we will start with this and then let me know how you are doing. Please call the [employer] today as they are currently accepting applications The website is [email or web address] Continue exercising I have ordered physical therapy Check with the physical therapist you see and ask if they do custom wheelchair evaluations. If not, then let me know and we can set you up for one here. Continue clonazepam Continue Baclofen Dysphagia (difficulty swallowing): I have ordered speech therapy for you Vitamin B12: Your last Vitamin B12 was low. Please add a Vit B12 supplement, 500mcg. They do make these that can dissolve under your tongue which may be helpful due to your swallowing. Other: Dr. Alcides Bruce is the primary care provider we discussed. Interested in clinical research? Not discussed Updated Movement Disorders Medication Schedule: Medications 8am 2pm 8pm 11pm Crexont 280mg 2 2 2 Baclofen 10 mg 1 1 1 Rasagiline 1 mg 1 Amantadine 100 mg 1 Clonazepam 0.5mg 1 Level of service : 72176 (40-68 min). Time spent 54 min on the day of service, which included preparing to see the patient, [id number] patient care, completing clinical documentation, obtaining and/or reviewing separately obtained history, performing a medically appropriate examination, counseling and educating the patient/family/caregiver, and ordering medications, tests, or procedures. Taisha John APRN.JAYA documented in this encounter [facility] 03-16-2024 Note HNO ID: [id number] Author: TAISHA JOHN APRN.CNP Service: ? Author Type: Nurse Practitioner Type: Progress Notes Filed: 03/20/2024 16:50 Note Text: [facility] - FOLLOW UP EVALUATION Primary Movement Disorders Neurologist: Juan R John MD Primary Movement Disorders [place]: JAYA Nelson MD [address] [facility] [address] [facility] [id number] Dear Nico Schmidt MD: I had the pleasure of seeing Mr. Larsen for follow-up today. As you know he is a 73 year old left-handed male with a history of Parkinson's disease complicated by motor fluctuations and dyskinesia since 2012. He is seen with his and grandson. Subjective 11/07/2023 Visit: Parkinson's disease/Dystonia: Continue current Parkinson's disease medication schedule though we may consider increasing the amantadine in the future Continue exercising Continue physical therapy I am adding clonazepam at bedtime to help the nighttime dystonia and insomnia. You will take 1/2 tablet at bedtime for a week and then take 1 tablet. For the dystonia, since at times the Baclofen seems to be making it worse, at 2pm, take 1/2 tablet for 5 days and then discontinue that dose. If it is better, let me know and we will discuss weaning you off other doses. If it is worse, then you can go back on it and we may increase the dose if needed. Urology: I have placed a consult for urology, but since you have a known UTI, if you cannot get in soon, please go to an [facility] Interval History: He was sick with flu-like symptoms in January and this took a toll on him. He is having significant stiffness right now in the office, but they said this is not typical for him. His main concern is food getting stuck in his mouth and not swallowing. It is not any worse then when he has his last MBS. His feeding tube has been removed. The clonazepam prescribed at his last visit, helped significantly with sleep and morning dystonia. Movement Disorders Medications Schedule - as of the start of the visit: Medications 230am 8am 11am 2pm 5pm 8pm 11pm Sinemet 25/100 1 2 2 2 2 1.5 Baclofen 10 mg 1 1 Rasagiline 1 mg 1 Amantadine 100 mg 1 Clonazepam 0.5mg 1/2->1 Parkinson's Motor Complications Medication benefit onset: 30 minutes Medication duration: 4 hours Wearing off: yes Painful off-state dystonia: yes Dyskinesia: yes Prior Anti-Parkinson Therapies Amantadine IR Carbidopa/Levodopa ER (Rytary) Rasagiline Questionnaires: In addition, the following areas that may be affected by abnormal involuntary movements were evaluated: Daily activities Difficulties with eating: Yes (mild) Difficulties in dressing: Yes (moderate) Difficulties with hygiene activities: Yes (mild) Difficulties with handwriting: Yes (moderate) Difficulties with doing hobbies and other activities: Yes (slight) Difficulties turning in bed: Yes (mild) Difficulties getting out of bed, car or chair: Yes (severe) Tremors/Gait/Balance Shaking or tremors: Yes (slight) Walking and balance problems: Yes (severe) He does walk some with PT. Number of falls in the Last Month: 0 Gait freezin (none) Autonomic/Pain Lightheadeness on standin (none) Urinary problems: Yes (slight) Constipation problems: 0 (none) Pain and other sensations: Yes (slight) Speech/Swallowing Speech problems: Yes (moderate) Drooling: Yes (moderate) Chewing and swallowing problems: Yes (slight) Sleep/Fatigue Sleep problems: Yes (moderate) He sleeps like a rock with the clonazepam. Daytime sleepiness: Yes (slight) Fatigue: Yes (slight) Mood/Behavior Depression: PHQ-9 Score: 4 usually representing no significant (0-4) depression. Anxiety: KAVIN-7 Total Score: 1 usually representing no significant (0-4) anxiety. Finally, the following table shows the patient's overall global physical and mental health using the PROMIS scale: PROMIS-10 Flowsheet Row Office Visit from 03/16/2024 in Neurology Office Visit from 11/07/2023 in Neurology Global Physical Health T Score 39.8 34.9 Global Mental Health T Score 53.3 50.8 0-10 Standard Pain Scale 4 3 *PROMIS-10 scoring scale: mean = 50, over 50 is above average, under 50 is below average In addition, the following non-motor symptoms and palliative concerns were evaluated: Sleep/Fatigue: REM sleep behavior disorder: No Restless Legs Syndrome: No Leg swelling: Occasionally one foot or the other is swollen. Impaired sense of smell: Yes Cognition: Memory and Thinkin - Slight. Impairment appreciated by me or my caregiver with no concrete interference with my ability to carry out normal activities and social interactions. Hallucinations and Psychosis: 0 - Normal. No hallucinations or psychotic behavior. Depressed Mood: 0 - Normal. No depressed mood. He said he gets agitated with what he is not allowed to do, but he is not depressed. Anxious Mood: 0 - Normal. No anx (more content not included)... [facility] 01-05-2024 Telephone encounter Note BW/EW patient. Forwarding to them [facility] Work Phone: 01-05-2024 Miscellaneous Notes BW/EW patient. Forwarding to them Request from patient requesting refill. Please E-Scribe to Mj. Last OV: 11/14/23 with KA Future OV: 02/19/23 with KA Requested Prescriptions Pending Prescriptions Disp Refills amantadine HCl (SYMMETREL) 100 mg capsule 30 capsule 11 Sig: Take 1 capsule by mouth once daily. rasagiline (AZILECT) 1 mg tab 90 tablet 3 Sig: Take 1 tablet by mouth once daily. Sowmya Poon documented in this encounter [facility] 01-05-2024 Telephone encounter Note Request from patient requesting refill. Please E-Scribe to Mj. Last OV: 11/14/23 with KA Future OV: 02/19/23 with KA Requested Prescriptions Pending Prescriptions Disp Refills amantadine HCl (SYMMETREL) 100 mg capsule 30 capsule 11 Sig: Take 1 capsule by mouth once daily. rasagiline (AZILECT) 1 mg tab 90 tablet 3 Sig: Take 1 tablet by mouth once daily. Sowmya S [facility] 11-28-2023 Nurse Note Bladder scan obtained 80 ml of urine [facility] 11-28-2023 Nurse Note Bladder scan obtained 80 ml of urine documented in this encounter [facility] 11-28-2023 History of Present illness Narrative Images from the original note were not included. [facility] UROLOGY CLINIC NOTE Patient: Katharine Larsen Provider: Kayode Guzman MD : 1950 Date of Service: 11/28/2023 PCP: Nico Schmidt MD Chief complaint/Identification: Katharine Larsen is a 73 year old male patient who presents for evaluation of overactive bladder . ASSESSMENT: 1. Urinary incontinence, unspecified type - ICD9: 788.30, ICD10: R32 (primary diagnosis) 2. Overactive bladder - ICD9: 596.51, ICD10: N32.81 3. Urinary tract infection without hematuria, site unspecified - ICD9: 599.0, ICD10: N39.0 Urinary urgency, no significant improvement with Vesicare or Myrbetriq. Myrbetriq also stopped due to cost and possible issue with feeding tube. UTI -no prior records available PLAN: Get straight cath specimen for UA/UCx Trial Gemtesa instead of Solifenacin. If cost is prohibitive, can attempt to obtain through [email or web address] in [place]. Follow up in [place] with [facility] in 3 mo Kayode Guzman MD REFERRED BY: Consultation requested by Taisha John NP for an opinion regarding urologic diagnosis and my final recommendations will be communicated back to the requesting physician by way of shared medical record or letter via US mail. HPI: PMHx: Parkinson's disease 11/28/2023 Referred by neurology for overactive bladder, UTI. No culture results in the medical record. Had CT in 2022 with non-enlarged prostate, but very large stool burden throughout colon. Reports hx of constipation previously, and had period of needing a feeding tube that was removed recently, and now endorses regular BMs. Presents in wheelchair. Reports hx of UTI, several courses of abx, but no culture results. Also reports urinary urgency. Not significant frequency. Incontinent into Depends (too difficult to get to toilet due to mobility issues) Saw Dr. Kyle in [place] 1 mo ago. Recommended course of Cipro, but patient unable to take it. Straight cath specimen for UA/UCx. Trial Gemtesa. 3 mo FU in [place]. BPH History: PSA: 0.52 (03/12/2017) No history of prostate biopsy Prior prostate procedures: No Prostate size: - Unclear, but non-enlarged on CT 2022 Current meds: Solifenacin Prior/failed meds: Myrbetriq (stopped d/t cost and PVR: - (11/28/2023) 80 mL Uroflow: unable to do Current meds: Vesicare Prior/failed meds: Myrbetriq OTHER UROLOGIC HISTORY: - Kidney/Bladder/Prostate/Testis cancer: No REVIEW OF SYSTEMS: A ROS was performed and pertinent negatives and positives can be found in the HPI. RELEVANT IMAGING STUDIES (most recent): CT ABD/PEL WO IVCON Result Date: 01/11/2023 IMPRESSION: No free intraperitoneal air. Recent x-ray appearance was likely artifactual High-density large stool burden diffusely throughout the colon Edema throughout the subcutaneous tissues and intra-abdominal fat planes Mild superior endplate depression T12, age-indeterminate Lung base nodules up to 6 mm. These can be further assessed with dedicated nonemergent chest CT ACTIONABLE RESULT: FOLLOW-UP Acuity: Actionable Findings: Thoracic-Lung nodules Routing code: RI_1 Recommendation: CT Chest WO IVCON Time Frame: Additional evaluation as described in the impression COMMUNICATION: Results will be communicated with the ordering provider via [employer] staff message or phone message by [facility] within 2 business days of report finalization. --END OF FINDING-- Dry Chain Worker: CASIMIRO Transcribe Date/Time: Jan 11 2023 2:20P Dictated by : ELI SCHNEIDER MD This examination was interpreted and the report reviewed and electronically signed by: ELI SCHNEIDER MD on Jan 11 2023 2:36PM EST LABS/INVESTIGATIONS: Urine Chemstrip: URINE POC No results found for this basename: uglucpoc,ubilipoc,uketonpoc,usgpo c,uhbpoc,uphpoc,upropoc,uuropoc,u nitpoc,uwbcpoc,ucolpoc,uclarpoc Creatinine Date Value Ref Range Status 01/14/2023 0.85 0.73 - 1.22 mg/dL Final 01/13/2023 0.88 0.73 - 1.22 mg/dL Final 01/12/2023 0.86 0.73 - 1.22 mg/dL Final 01/11/2023 0.92 0.73 - 1.22 mg/dL Final Hemoglobin (g/dL) Date Value 01/14/2023 11.0 Hematocrit (%) Date Value 01/14/2023 34.2 WBC (k/uL) Date Value 01/14/2023 11.92 No results found for: PSA, PSAPER HISTORIES FAMILY HISTORY Problem Relation Age of Onset Diabetes Father Hypertension Father Hyperlipidemia Father other (TIA) Father Hypertension Mother Thyroid Mother other (Parkinsons Disease [Other]) Other Cousin Systemic Lupus Erythematosus No Family History Multiple Sclerosis No Family History Blood Clots No Family History Blood Disease No Family History DVT No Family History Factor 5 Leiden No Family History Stroke No Family History Bipolar disorder No Family History Schizophrenia No Family History Parkinson s Disease No Family History Dementia No Family History Alzheimer's Disease No Family History COPD No Family History Aneurysm No Family History PAST MEDICAL HISTORY Diagnosis Date BPH (benign prostatic hyperplasia) Diabetes (HCC) Low Hgb A1C - now regaular diet HTN (hypertension) MYRIAM (obstructive sleep apnea) Parkinson's disease (HCC) PAST SURGICAL HISTORY Procedure Laterality Date TOE SURGERY HX TONSILLECTOMY & ADENOIDECTOMY <AGE 10 Social History Tobacco Use Smoking status: Never Smokeless tobacco: Never Substance Use Topics Alcohol use: Not Currently Drug use: Not Currently ALLERGIES Allergen Reactions Abilify [Aripiprazo* Contraindication-Medical Surgical People with Parkinson's disease should not take this or other antipsychotics except Nuplazid, Seroquel, and Clozaril can be prescribed. Ciprofloxacin Other: See Comments Tendon rupture (see black box warning)-this occurred in him when Cipro was used for cellulitis/sepsis Compazine [Prochlor* Contraindication-Medical Surgical This should not be given to people with Parkinson's disease. If not otherwise contraindicated, Zofran should be given instead. Haldol [Haloperidol] Contraindication-Medical Surgical People with Parkinson's disease should not take this or other antipsychotics except Nuplazid, Seroquel, and Clozaril can be prescribed. Penicillins Unknown Phenergan [Prometha* Contraindication-Medical Surgical This should not be given to people with Parkinson's disease. If not otherwise contraindicated, Zofran should be given instead. Reglan [Metoclopram* Contraindication-Medical Surgical This should not be given to people with Parkinson's disease. If not otherwise contraindicated, Zofran should be given instead. Current Outpatient Medications Medication Sig Dispense Refill clonazePAM (KLONOPIN) 0.5 mg tablet Take 1/2 tablet at bedtime for one week and then take 1 tablet at bedtime 30 tablet 5 carbidopa-levodopa (SINEMET) 25-100 mg per tablet 1 tab at 230AM, 2 tabs at 8AM, 11AM, 2PM, 5PM and 1.5 tabs at 8PM 945 tablet 11 baclofen 10 mg tablet Take 1 tablet in the morning and afternoon and 1/2 tablet in the evening for one week and then take 1 tablet three times daily 90 tablet 11 amantadine HCl (SYMMETREL) 100 mg capsule Take 1 capsule by mouth once daily. 30 capsule 11 acetaminophen (TYLENOL) 325 mg tablet Take 2 tablets by mouth every 4 hours as needed for pain or fever (specify temp.). solifenacin succinate (SOLIFENACIN ORAL) Take by mouth daily at bedtime. Pt and unsure of dosage rasagiline (AZILECT) 1 mg tab Take 1 tablet by mouth once daily. 90 tablet 3 No current facility-administered medications for this visit. PHYSICAL EXAMINATION: Vitals: There were no vitals taken for this visit. BMI: There is no height or weight on file to calculate BMI. Constitutional: Apparent distress -No Psych: Alert & oriented - Yes; : Deferred documented in this encounter [facility] 11-28-2023 Note HNO ID: [id number] Author: KAYODE GUZMAN MD Service: ? Author Type: Physician Type: Progress Notes Filed: 11/28/2023 14:12 Note Text: [facility] UROLOGY CLINIC NOTE Patient: Katharine Larsen Provider: Kayode Guzman MD : 1950 Date of Service: 11/28/2023 PCP: Nico Schmidt MD Chief complaint/Identification: Katharine Larsen is a 73 year old male patient who presents for evaluation of overactive bladder . ASSESSMENT: 1. Urinary incontinence, unspecified type - ICD9: 788.30, ICD10: R32 (primary diagnosis) 2. Overactive bladder - ICD9: 596.51, ICD10: N32.81 3. Urinary tract infection without hematuria, site unspecified - ICD9: 599.0, ICD10: N39.0 Urinary urgency, no significant improvement with Vesicare or Myrbetriq. Myrbetriq also stopped due to cost and possible issue with feeding tube. UTI -no prior records available PLAN: Get straight cath specimen for UA/UCx Trial Gemtesa instead of Solifenacin. If cost is prohibitive, can attempt to obtain through [email or web address] pharmacy in [place]. Follow up in [place] with [facility] in 3 mo Kayode Guzman MD REFERRED BY: Consultation requested by Taisha John NP for an opinion regarding urologic diagnosis and my final recommendations will be communicated back to the requesting physician by way of shared medical record or letter via US mail. HPI: PMHx: Parkinson's disease 11/28/2023 Referred by neurology for overactive bladder, UTI. No culture results in the medical record. Had CT in 2022 with non-enlarged prostate, but very large stool burden throughout colon. Reports hx of constipation previously, and had period of needing a feeding tube that was removed recently, and now endorses regular BMs. Presents in wheelchair. Reports hx of UTI, several courses of abx, but no culture results. Also reports urinary urgency. Not significant frequency. Incontinent into Depends (too difficult to get to toilet due to mobility issues) Saw Dr. Kyle in [place] 1 mo ago. Recommended course of Cipro, but patient unable to take it. Straight cath specimen for UA/UCx. Trial Gemtesa. 3 mo FU in [place]. BPH History: PSA: 0.52 (03/12/2017) No history of prostate biopsy Prior prostate procedures: No Prostate size: - Unclear, but non-enlarged on CT 2022 Current meds: Solifenacin Prior/failed meds: Myrbetriq (stopped d/t cost and PVR: - (11/28/2023) 80 mL Uroflow: unable to do Current meds: Vesicare Prior/failed meds: Myrbetriq OTHER UROLOGIC HISTORY: - Kidney/Bladder/Prostate/Testis cancer: No REVIEW OF SYSTEMS: A ROS was performed and pertinent negatives and positives can be found in the HPI. RELEVANT IMAGING STUDIES (most recent): CT ABD/PEL IVCON Result Date: 01/11/2023 IMPRESSION: No free intraperitoneal air. Recent x-ray appearance was likely artifactual High-density large stool burden diffusely throughout the colon Edema throughout the subcutaneous tissues and intra-abdominal fat planes Mild superior endplate depression T12, age-indeterminate Lung base nodules up to 6 mm. These can be further assessed with dedicated nonemergent chest CT ACTIONABLE RESULT: FOLLOW-UP Acuity: Actionable Findings: Thoracic-Lung nodules Routing code: RI_1 Recommendation: CT Chest WO IVCON Time Frame: Additional evaluation as described in the impression COMMUNICATION: Results will be communicated with the ordering provider via [employer] staff message or phone message by [facility] within 2 business days of report finalization. --END OF FINDING-- Dry Chain Worker: CASIMIRO Transcribe Date/Time: Jan 11 2023 2:20P Dictated by : ELI SCHNEIDER MD This examination was interpreted and the report reviewed and electronically signed by: ELI SCHNEIDER MD on Jan 11 2023 2:36PM EST LABS/INVESTIGATIONS: Urine Chemstrip: URINE POC No results found for this basename: uglucpoc,ubilipoc,uketonpoc,usgpo c,uhbpoc,uphpoc,upropoc,uuropoc,u nitpoc,uwbcpoc ,ucolpoc,uclarpoc Creatinine Date Value Ref Range Status 01/14/2023 0.85 0.73 - 1.22 mg/dL Final 01/13/2023 0.88 0.73 - 1.22 mg/dL Final 01/12/2023 0.86 0.73 - 1.22 mg/dL Final 01/11/2023 0.92 0.73 - 1.22 mg/dL Final Hemoglobin (g/dL) Date Value 01/14/2023 11.0 Hematocrit (%) Date Value 01/14/2023 34.2 WBC (k/uL) Date Value 01/14/2023 11.92 No results found for: PSA, PSAPER HISTORIES FAMILY HISTORY Problem Relation Age of Onset Diabetes Father Hypertension Father Hyperlipidemia Father other (TIA) Father Hypertension Mother Thyroid Mother other (Parkinsons Disease [Other]) Other Cousin Systemic Lupus Erythematosus No Family History Multiple Sclerosis No Family History Blood Clots No Family History Blood Disease No Family History DVT No Family History Factor 5 Leiden No Family History Stroke No Family History (more content not included)... [facility] 11-14-2023 Note HNO ID: [id number] Author: CAROLINA DAMON MD Service: ? Author Type: Physician Type: Progress Notes Filed: 11/14/2023 10:56 Note Text: [facility] NEUROLOGICAL TENRIISM NEUROTOXIN VISIT Date: November 14, 2023 Name: Katharine Larsen SUBJECTIVE: Subjective history Injections worked well. Reporting drooling when eating chocolate. More often dry mouth than too wet. Jaw clenching at times, mouth open. Doesn't like how he looks. Doesn't cause pain. Doesn't disrupt eating, talking. 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) Date of diagnosis: 11/12/2018 Other treatments that have been tried and failed: Medications for Parkinson's Date of first neurotoxin treatment: 03/08/2019 Type of neurotoxin given: OnabotulinumtoxinA (Botox) Frequency of current neurotoxin treatment: 90 days Estimated frequency and duration of treatment: continue with current injection interval; will reassess after 1 year Last Injection Notes Date of last Injection: 07/18/2023 Type of neurotoxin: OnabotulinumtoxinA (Botox) Total amount injected: 190 units Degree of effectiveness of last injection:60% Duration of effect: 12 week(s) Side effects related to last injection: None Current pain symptoms: No Current functional limitations: moderate Last neurotoxin regimen: Med right left midline Quadratus plantae 45 50 Flexor digitorum brevis 45 50 Total: 190 Questionnaires: Allergies: ALLERGIES Allergen Reactions Abilify [Aripiprazo* Contraindication-Medical Surgical People with Parkinson's disease should not take this or other antipsychotics except Nuplazid, Seroquel, and Clozaril can be prescribed. Ciprofloxacin Other: See Comments Tendon rupture (see black box warning)-this occurred in him when Cipro was used for cellulitis/sepsis Compazine [Prochlor* Contraindication-Medical Surgical This should not be given to people with Parkinson's disease. If not otherwise contraindicated, Zofran should be given instead. Haldol [Haloperidol] Contraindication-Medical Surgical People with Parkinson's disease should not take this or other antipsychotics except Nuplazid, Seroquel, and Clozaril can be prescribed. Penicillins Unknown Phenergan [Prometha* Contraindication-Medical Surgical This should not be given to people with Parkinson's disease. If not otherwise contraindicated, Zofran should be given instead. Reglan [Metoclopram* Contraindication-Medical Surgical This should not be given to people with Parkinson's disease. If not otherwise contraindicated, Zofran should be given instead. Current Medications: Current Outpatient Medications Medication Sig clonazePAM (KLONOPIN) 0.5 mg tablet Take 1/2 tablet at bedtime for one week and then take 1 tablet at bedtime carbidopa-levodopa (SINEMET) 25-100 mg per tablet 1 tab at 230AM, 2 tabs at 8AM, 11AM, 2PM, 5PM and 1.5 tabs at 8PM baclofen 10 mg tablet Take 1 tablet in the morning and afternoon and 1/2 tablet in the evening for one week and then take 1 tablet three times daily amantadine HCl (SYMMETREL) 100 mg capsule Take 1 capsule by mouth once daily. acetaminophen (TYLENOL) 325 mg tablet Take 2 tablets by mouth every 4 hours as needed for pain or fever (specify temp.). solifenacin succinate (SOLIFENACIN ORAL) Take by mouth daily at bedtime. Pt and unsure of dosage rasagiline (AZILECT) 1 mg tab Take 1 tablet by mouth once daily. No current facility-administered medications for this visit. OBJECTIVE: BP 158/93 (BP Site: Left Arm, BP Position: Sitting, BP Cuff Size: Regular Adult) Pulse 65 SpO2 99% Other notable exam findings: moderate curling of toes both feet. ASSESSMENT AND PLAN: Mr. 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 Injections are working well. Repeated same injection pattern. Drooling only triggered by eating chocolate and otherwise dry mouth so injections for sialorrhea would not be appropriate. Also asking about injections for mouth opening which is more likely part of bradykinesia rather than dystonia and also unfortunately not amenable to Botox treatment. After obtaining informed consent, neurotoxin injections were carried out as outlined below. Current Injection Note Type of neurotoxin: OnabotulinumtoxinA (Botox) Total amount drawn: 200 units Total amount injected: 190 units Total amount wasted: 10 units Dilution: 1 cc NSS/100 U Administered with EMG guidance: No Administered with Ultrasound guidance: No Lot#: [id number] Exp Date: 12/2025 Today's neurotoxin regimen: Med right left midline Quadratus plantae 45 50 Flexor digitorum brevis 45 50 Total: 190 Future plan of care: Follow up: 3 months Neurotoxin change: No Dose change:No Carolina Damon MD November 14, 2023 10:54 AM Dept of NEUROLOGY TIME OUT/ PROCEDURE NOTE: Informed consent Katharine Larsen Medical Record: [id number] Procedure: neurotoxin intramusc (more content not included)... [facility] 11-14-2023 History of Present illness Narrative Images from the original note were not included. [facility] NEUROLOGICAL TENRIISM NEUROTOXIN VISIT Date: November 14, 2023 Name: Katharine Larsen SUBJECTIVE: Subjective history Injections worked well. Reporting drooling when eating chocolate. More often dry mouth than too wet. Jaw clenching at times, mouth open. Doesn't like how he looks. Doesn't cause pain. Doesn't disrupt eating, talking. 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) Date of diagnosis: 11/12/2018 Other treatments that have been tried and failed: Medications for Parkinson's Date of first neurotoxin treatment: 03/08/2019 Type of neurotoxin given: OnabotulinumtoxinA (Botox) Frequency of current neurotoxin treatment: 90 days Estimated frequency and duration of treatment: continue with current injection interval; will reassess after 1 year Last Injection Notes Date of last Injection: 07/18/2023 Type of neurotoxin: OnabotulinumtoxinA (Botox) Total amount injected: 190 units Degree of effectiveness of last injection:60% Duration of effect: 12 week(s) Side effects related to last injection: None Current pain symptoms: No Current functional limitations: moderate Last neurotoxin regimen: Med right left midline Quadratus plantae 45 50 Flexor digitorum brevis 45 50 Total: 190 Questionnaires: Allergies: ALLERGIES Allergen Reactions Abilify [Aripiprazo* Contraindication-Medical Surgical People with Parkinson's disease should not take this or other antipsychotics except Nuplazid, Seroquel, and Clozaril can be prescribed. Ciprofloxacin Other: See Comments Tendon rupture (see black box warning)-this occurred in him when Cipro was used for cellulitis/sepsis Compazine [Prochlor* Contraindication-Medical Surgical This should not be given to people with Parkinson's disease. If not otherwise contraindicated, Zofran should be given instead. Haldol [Haloperidol] Contraindication-Medical Surgical People with Parkinson's disease should not take this or other antipsychotics except Nuplazid, Seroquel, and Clozaril can be prescribed. Penicillins Unknown Phenergan [Prometha* Contraindication-Medical Surgical This should not be given to people with Parkinson's disease. If not otherwise contraindicated, Zofran should be given instead. Reglan [Metoclopram* Contraindication-Medical Surgical This should not be given to people with Parkinson's disease. If not otherwise contraindicated, Zofran should be given instead. Current Medications: Current Outpatient Medications Medication Sig clonazePAM (KLONOPIN) 0.5 mg tablet Take 1/2 tablet at bedtime for one week and then take 1 tablet at bedtime carbidopa-levodopa (SINEMET) 25-100 mg per tablet 1 tab at 230AM, 2 tabs at 8AM, 11AM, 2PM, 5PM and 1.5 tabs at 8PM baclofen 10 mg tablet Take 1 tablet in the morning and afternoon and 1/2 tablet in the evening for one week and then take 1 tablet three times daily amantadine HCl (SYMMETREL) 100 mg capsule Take 1 capsule by mouth once daily. acetaminophen (TYLENOL) 325 mg tablet Take 2 tablets by mouth every 4 hours as needed for pain or fever (specify temp.). solifenacin succinate (SOLIFENACIN ORAL) Take by mouth daily at bedtime. Pt and unsure of dosage rasagiline (AZILECT) 1 mg tab Take 1 tablet by mouth once daily. No current facility-administered medications for this visit. OBJECTIVE: BP 158/93 (BP Site: Left Arm, BP Position: Sitting, BP Cuff Size: Regular Adult) Pulse 65 SpO2 99% Other notable exam findings: moderate curling of toes both feet. ASSESSMENT AND PLAN: Mr. 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 Injections are working well. Repeated same injection pattern. Drooling only triggered by eating chocolate and otherwise dry mouth so injections for sialorrhea would not be appropriate. Also asking about injections for mouth opening which is more likely part of bradykinesia rather than dystonia and also unfortunately not amenable to Botox treatment. After obtaining informed consent, neurotoxin injections were carried out as outlined below. Current Injection Note Type of neurotoxin: OnabotulinumtoxinA (Botox) Total amount drawn: 200 units Total amount injected: 190 units Total amount wasted: 10 units Dilution: 1 cc NSS/100 U Administered with EMG guidance: No Administered with Ultrasound guidance: No Lot#: [id number] Exp Date: 12/2025 Today's neurotoxin regimen: Med right left midline Quadratus plantae 45 50 Flexor digitorum brevis 45 50 Total: 190 Future plan of care: Follow up: 3 months Neurotoxin change: No Dose change:No Carolina Damon MD November 14, 2023 10:54 AM Dept of NEUROLOGY TIME OUT/ PROCEDURE NOTE: Informed consent Katharine Larsen Medical Record: [id number] Procedure: neurotoxin intramuscular injection The risks, benefits and anticipated outcomes of the procedure, the risks and benefits of the alternatives to the procedure and the roles and tasks of the personnel to be involved were discussed with the patient and the patient consents to the procedure and agrees to proceed. I verify that I personally obtained Katharine Larsen's consent. Carolina Damon MD November 14, 2023 10:54 AM UNIVERSAL PROTOCOL / SAFETY CHECKLIST Procedure to be Performed: neurotoxin injection Sign In: A Moment of CARE was completed. Personnel directly involved wiht the procedure wore the appropriate PPE (Personal Protective Equipment). No special equipment needed. Patient/Surrogate Stated/Verified: Patient name Date of Relative allergies The intended procedure Time Out Communication: Intended patient and procedure match the source documents. Consent documented and matches the intended procedure. No relevant labs, photos, and/or imaging studies were applicable for review. No correct side/site applicable for marking and visibility. Medications required for procedure verified. No fire risk assessment and interventions applicable. No implant(s) inserted. Sign Out: No specimen collected. No instruments, equipment or retained foreign bodies applicable. Post-procedure follow-up management communicated and Plan of Care Visit completed when applicable. -- Carolina Damon MD documented in this encounter [facility] 11-07-2023 Instructions Taisha John APRN.CNP - 11/07/2023 9:12 AM EDT It was a pleasure to see you today. We addressed the following diagnoses: Parkinson's disease with dyskinesia and fluctuating manifestations (hcc) Dystonia Overactive bladder (primary encounter diagnosis) Urinary tract infection without hematuria, site unspecified Insomnia due to medical condition My recommendations are as follows: 11/07/2023 Visit: Parkinson's disease/Dystonia: Continue current Parkinson's disease medication schedule though we may consider increasing the amantadine in the future Continue exercising Continue physical therapy I am adding clonazepam at bedtime to help the nighttime dystonia and insomnia. You will take 1/2 tablet at bedtime for a week and then take 1 tablet. For the dystonia, since at times the Baclofen seems to be making it worse, at 2pm, take 1/2 tablet for 5 days and then discontinue that dose. If it is better, let me know and we will discuss weaning you off other doses. If it is worse, then you can go back on it and we may increase the dose if needed. Urology: I have placed a consult for urology, but since you have a known UTI, if you cannot get in soon, please go to an [facility] Movement Disorders Medication Schedule: Medications 230am 8am 11am 2pm 5pm 8pm 11pm Sinemet 25/100 1 2 2 2 2 1.5 Baclofen 10 mg 1 1 Rasagiline 1 mg 1 Amantadine 100 mg 1 Clonazepam 0.5mg 1/2->1 Return at or around: 02/06/24 If there are any concerns before your next visit, please call or you can send a message through [employer]. You can also now schedule and select appointments through [employer]. Taisha John APRN.JAYA documented in this encounter [facility] 11-07-2023 History of Present illness Narrative [facility] - FOLLOW UP EVALUATION Nico Schmidt MD [address] [facility] [address] [facility] [id number] Dear Nico Schmidt MD: I had the pleasure of seeing Mr. Larsen for follow-up today. As you know he is a 72 year old left-handed male with a history of Parkinson's disease complicated by motor fluctuations and dyskinesia since 2012. He is seen with his . Subjective Previous Plan-07/17/2023 Visit: Parkinson's disease with off period dystonia in left > right leg - Try adding a dose of Sinemet, 2 tablets at 230AM and move the daytime doses closer together as below. Patient's perception of importance for healthcare provider to let them know of research trials for which they may be eligible? Very Important Interval History: His main concern is rigidity. If he is in bed and gets rigid his can turn him and do some things. The Sinemet does resolves this temporarily and the new schedule does made at his last visit does seem to help. It is most bothersome at night and other type of symptoms stressful to him such as being too warm or too cold, can also make it come out. With taking the 2:30am Sinemet, the rigidity is less. They think that 30-45 minutes after he takes the baclofen, rigidity often comes out. Movement Disorders Medications Schedule - as of the start of the visit: Medications 230am 8am 11am 2pm 5pm 8pm 11pm Sinemet 25/100 1 2 2 2 2 1.5 Baclofen 10 mg 1 1 1 Rasagiline 1 mg 1 Amantadine 100 mg 1 Parkinson's Motor Complications Medication benefit onset: 30 minutes Medication duration: 4 hours Wearing off: yes Painful off-state dystonia: yes Dyskinesia: yes Prior Anti-Parkinson Therapies Amantadine IR Carbidopa/Levodopa ER (Rytary) Rasagiline Questionnaires: In addition, the following areas that may be affected by abnormal involuntary movements were evaluated: Daily activities Difficulties with eating: Yes (moderate) Difficulties in dressing: Yes (moderate) Difficulties with hygiene activities: Yes (mild) Difficulties with handwriting: Yes (severe) Difficulties with doing hobbies and other activities: Yes (slight) Difficulties turning in bed: Yes (mild) Difficulties getting out of bed, car or chair: Yes (severe) Tremors/Gait/Balance Shaking or tremors: Yes (slight) Walking and balance problems: Yes (severe) He is in a wheelchair most of the time, but will walk with the physical therapist. Number of falls in the Last Month: Zero Gait freezing: Yes (severe) Autonomic/Pain Lightheadeness on standin (none) Urinary problems: Yes (severe) He is on Solifenacin. Constipation problems: 0 (none) Pain and other sensations: Yes (moderate) This is from the rigidity. Speech/Swallowing Speech problems: Yes (moderate) Drooling: Yes (moderate) He may get injections for this. Chewing and swallowing problems: 0 (none) Sleep/Fatigue Sleep problems: Yes (slight) Daytime sleepiness: Yes (slight) Fatigue: 0 (none) Mood/Behavior Depression: PHQ-9 Score: 3 usually representing no significant (0-4) depression. Anxiety: KAVIN-7 Total Score: 0 usually representing no significant (0-4) anxiety. Finally, the following table shows the patient's overall global physical and mental health using the PROMIS scale: PROMIS-10 Flowsheet Row Office Visit from 11/07/2023 in Neurology Office Visit from 07/18/2023 in Neurology Global Physical Health T Score 34.9 37.4 Global Mental Health T Score 50.8 48.3 0-10 Standard Pain Scale 3 4 *PROMIS-10 scoring scale: mean = 50, over 50 is above average, under 50 is below average In addition, the following non-motor symptoms and palliative concerns were evaluated: Sleep/Fatigue: REM sleep behavior disorder: No Restless Legs Syndrome: No Leg swelling: No Impaired sense of smell: Yes Cognition: Cognitive impairment: no MoCA Cognitive assessment: Hallucinations and delusions: no Apathy: no Impulse control disorder: No Palliative Concerns: Caregiver burden: Not at all Spiritual concerns: No Advanced directives on file: Palliative services: Yes He is getting currently. Therapy and Exercise: Last PT Date: October 2023 Last OT Date: March [address] Date: March 2023 Exercises Regularly: Yes Chair exercises and works with a hop strainer ALLERGIES Allergen Reactions Abilify [Aripiprazo* Contraindication-Medical Surgical People with Parkinson's disease should not take this or other antipsychotics except Nuplazid, Seroquel, and Clozaril can be prescribed. Ciprofloxacin Other: See Comments Tendon rupture (see black box warning)-this occurred in him when Cipro was used for cellulitis/sepsis Compazine [Prochlor* Contraindication-Medical Surgical This should not be given to people with Parkinson's disease. If not otherwise contraindicated, Zofran should be given instead. Haldol [Haloperidol] Contraindication-Medical Surgical People with Parkinson's disease should not take this or other antipsychotics except Nuplazid, Seroquel, and Clozaril can be prescribed. Penicillins Unknown Phenergan [Prometha* Contraindication-Medical Surgical This should not be given to people with Parkinson's disease. If not otherwise contraindicated, Zofran should be given instead. Reglan [Metoclopram* Contraindication-Medical Surgical This should not be given to people with Parkinson's disease. If not otherwise contraindicated, Zofran should be given instead. Current Outpatient Medications Medication Sig carbidopa-levodopa (SINEMET) 25-100 mg per tablet 1 tab at 230AM, 2 tabs at 8AM, 11AM, 2PM, 5PM and 1.5 tabs at 8PM baclofen 10 mg tablet Take 1 tablet in the morning and afternoon and 1/2 tablet in the evening for one week and then take 1 tablet three times daily amantadine HCl (SYMMETREL) 100 mg capsule Take 1 capsule by mouth once daily. acetaminophen (TYLENOL) 325 mg tablet Take 2 tablets by mouth every 4 hours as needed for pain or fever (specify temp.). solifenacin succinate (SOLIFENACIN ORAL) Take by mouth daily at bedtime. Pt and unsure of dosage rasagiline (AZILECT) 1 mg tab Take 1 tablet by mouth once daily. clonazePAM (KLONOPIN) 0.5 mg tablet Take 1/2 tablet at bedtime for one week and then take 1 tablet at bedtime No current facility-administered medications for this visit. Objective Vital Signs: BP 160/101 (BP Site: Left Arm, BP Position: Sitting, BP Cuff Size: Regular Adult) Pulse 80 SpO2 98% Orthostatic Vitals: None for this encounter No LMP for male patient. There is no height or weight on file to calculate BMI. Movement Disorders Scales Performed: MDS-UPDRS Motor subscale condition of exam Medication Off/On/Naiive ON Time of UPDRS 0845 Time of Last Medication 0815 Last Medication Taken Sinemet, Rasagiline, and Amantadine, and baclofen 10 mg DBS Right N/A DBS Left N/A MDS-UPDRS Motor subscale scores Speech 3-Moderate. Speech is difficult to understand to the point that some, but not most sentences are poorly understood. Facial Expression 4-Severe. Masked facies with lips parted most of the time when the mouth is at rest. Rigidity Neck 2-Mild. Rigidity detected without the activation maneuver, but full range of motion is easily achieved. Rigidity Right Upper Extremity 1-Slight. Rigidity only detected with activation maneuver. Rigidity Left Upper Extremity 1-Slight. Rigidity only detected with activation maneuver. Rigidity Right Lower Extremity 4-Severe. Rigidity detected without the activation maneuver and full range of motion not achieved. Rigidity Left Lower Extremity 4-Severe. Rigidity detected without the activation maneuver and full range of motion not achieved. Finger Taps Right 1-Slight. a) the regular rhythm is broken with one or two interruptions or hesitations of the tapping movement, b) slight slowing, c) the amplitude decrements near the end of the 10 taps. Finger Taps Left 1-Slight. a) the regular rhythm is broken with one or two interruptions or hesitations of the tapping movement, b) slight slowing, c) the amplitude decrements near the end of the 10 taps. Hand Movements Right 0-Normal. No problem. Hand Movements Left 1-Slight. a) the regular rhythm is broken with one or two interruptions or hesitations of the movement, b) slight slowing, c) the amplitude decrements near the end of the task. Arm Movements Right 1-Slight. a) the regular rhythm is broken with one or two interruptions or hesitations of the movement, b) slight slowing, c) the amplitude decrements near the end of the sequence. Arm Movements Left 1-Slight. a) the regular rhythm is broken with one or two interruptions or hesitations of the movement, b) slight slowing, c) the amplitude decrements near the end of the sequence. Toe Taps Right 3-Moderate. a) more than 5 interruptions during the tapping movements or at least one longer arrest (freeze) in ongoing movement, b) moderate slowing, c) the amplitude decrements starting after the first tap. Toe Taps Left 3-Moderate. a) more than 5 interruptions during the tapping movements or at least one longer arrest (freeze) in ongoing movement, b) moderate slowing, c) the amplitude decrements starting after the first tap. Leg Agility Right Leg Agility Left Arise From Chair 3-Moderate. Needs to push off, but tends to fall back, or may have to try more than one time using arms of chair, but can get up without help. Gait 4-Severe. Cannot walk at all or only with another person's assistance. (gait is normal but uses walker) Gait Freezing Posture Stability 4-Severe. Very unstable, tends to lose balance spontaneously or with just a gentle pull on the shoulders. Posture Body Bradykinesia 2-Mild. Mild global slowness and poverty of spontaneous movements. Postural Tremor Hand Right 0-Normal. No tremor. Postural Tremor Hand Left 0-Normal. No tremor. Kinetic Tremor Right 0-Normal. No tremor. Kinetic Tremor Left 0-Normal. No tremor. Rest Tremor Amplitude Right Upper Extremity 0-Normal. No tremor. Rest Tremor Amplitude Left Upper Extremity 1-Slight. < 1 cm in maximal amplitude. Rest Tremor Amplitude Right Lower Extremity 0-Normal. No tremor. Rest Tremor Amplitude Left Lower Extremity 1-Slight. < 1 cm in maximal amplitude. Rest Tremor Amplitude Lip/Jaw 0-Normal. No tremor. Rest Tremor Constancy 1-Slight. Tremor at rest is present < 25% of the entire examination period. He became very rigid in his legs half way through the visit. He also had a small amount of dyskinesia in his left leg that became more widespread into generalized and became more intense during the exam. Assessment and Plan: Assessment Mr. Larsen is a left-handed 72 year old year old male with idiopathic Parkinson's disease and frequent falls. His disease is complicated by significant periods of rigidity that is triggered by stress, extreme temperatures, as well as other factors. Today, due to being cold, his legs shot out with rigidity almost causing him to slide out of his wheelchair. He and his have noticed it occurring approximately 45 minutes after he takes Baclofen. Initially I thought it may be on related dystonia/tightness since he takes Sinemet at the same time, but he does also experience this with the 11pm dose of Baclofen and he does not take Sinemet then. He is also going to try reducing the Baclofen to see if this improves, but since it will take some time, in the meantime, I am going to add low dose clonazepam to help his dystonia and insomnia. Other options for medications we can consider for him are Rytary (which worked well for him, but he was not able to renew his assistance fund), Crexont, a second dose of amantadine or Gocovri, or in the future, the levodopa pump. The following are the current problems noted and addressed during this visit: Parkinson's disease with dyskinesia and fluctuating manifestations (hcc) Dystonia Overactive bladder (primary encounter diagnosis) Urinary tract infection without hematuria, site unspecified Insomnia due to medical condition Plan 11/07/2023 Visit: Parkinson's disease/Dystonia: Continue current Parkinson's disease medication schedule though we may consider increasing the amantadine in the future Continue exercising Continue physical therapy I am adding clonazepam at bedtime to help the nighttime dystonia and insomnia. You will take 1/2 tablet at bedtime for a week and then take 1 tablet. For the dystonia, since at times the Baclofen seems to be making it worse, at 2pm, take 1/2 tablet for 5 days and then discontinue that dose. If it is better, let me know and we will discuss weaning you off other doses. If it is worse, then you can go back on it and we may increase the dose if needed. Urology: I have placed a consult for urology, but since you have a known UTI, if you cannot get in soon, please go to an [facility] clinic Updated Movement Disorders Medication Schedule: Medications 230am 8am 11am 2pm 5pm 8pm 11pm Sinemet 25/100 1 2 2 2 2 1.5 Baclofen 10 mg 1 1 Rasagiline 1 mg 1 Amantadine 100 mg 1 Clonazepam 0.5mg 1/2->1 Return at or around: 02/06/24 Level of service : 19642 (40-54 min). Time spent 54 min on the day of service, which included preparing to see the patient, [id number] patient care, completing clinical documentation, obtaining and/or reviewing separately obtained history, performing a medically appropriate examination, counseling and educating the patient/family/caregiver, and ordering medications, tests, or procedures. Log will indicate more time, but I did leave the room to answer a page. Taisha John APRN.JAYA documented in this encounter [facility] 11-07-2023 Note HNO ID: [id number] Author: TAISHA JOHN APRN.DOUGH MIXING MACHINE OPERATOR Service: ? Author Type: Nurse Practitioner Type: Progress Notes Filed: 11/09/2023 12:53 Note Text: [facility] - FOLLOW UP EVALUATION Nico Schmidt MD [address] [facility] [address] [facility] [id number] Dear Nico Schmidt MD: I had the pleasure of seeing Mr. Larsen for follow-up today. As you know he is a 72 year old left-handed male with a history of Parkinson's disease complicated by motor fluctuations and dyskinesia since 2012. He is seen with his . Subjective Previous Plan-07/17/2023 Visit: Parkinson's disease with off period dystonia in left > right leg - Try adding a dose of Sinemet, 2 tablets at 230AM and move the daytime doses closer together as below. Patient's perception of importance for healthcare provider to let them know of research trials for which they may be eligible? Very Important Interval History: His main concern is rigidity. If he is in bed and gets rigid his can turn him and do some things. The Sinemet does resolves this temporarily and the new schedule does made at his last visit does seem to help. It is most bothersome at night and other type of symptoms stressful to him such as being too warm or too cold, can also make it come out. With taking the 2:30am Sinemet, the rigidity is less. They think that 30-45 minutes after he takes the baclofen, rigidity often comes out. Movement Disorders Medications Schedule - as of the start of the visit: Medications 230am 8am 11am 2pm 5pm 8pm 11pm Sinemet 25/100 1 2 2 2 2 1.5 Baclofen 10 mg 1 1 1 Rasagiline 1 mg 1 Amantadine 100 mg 1 Parkinson's Motor Complications Medication benefit onset: 30 minutes Medication duration: 4 hours Wearing off: yes Painful off-state dystonia: yes Dyskinesia: yes Prior Anti-Parkinson Therapies Amantadine IR Carbidopa/Levodopa ER (Rytary) Rasagiline Questionnaires: In addition, the following areas that may be affected by abnormal involuntary movements were evaluated: Daily activities Difficulties with eating: Yes (moderate) Difficulties in dressing: Yes (moderate) Difficulties with hygiene activities: Yes (mild) Difficulties with handwriting: Yes (severe) Difficulties with doing hobbies and other activities: Yes (slight) Difficulties turning in bed: Yes (mild) Difficulties getting out of bed, car or chair: Yes (severe) Tremors/Gait/Balance Shaking or tremors: Yes (slight) Walking and balance problems: Yes (severe) He is in a wheelchair most of the time, but will walk with the physical therapist. Number of falls in the Last Month: Zero Gait freezing: Yes (severe) Autonomic/Pain Lightheadeness on standin (none) Urinary problems: Yes (severe) He is on Solifenacin. Constipation problems: 0 (none) Pain and other sensations: Yes (moderate) This is from the rigidity. Speech/Swallowing Speech problems: Yes (moderate) Drooling: Yes (moderate) He may get injections for this. Chewing and swallowing problems: 0 (none) Sleep/Fatigue Sleep problems: Yes (slight) Daytime sleepiness: Yes (slight) Fatigue: 0 (none) Mood/Behavior Depression: PHQ-9 Score: 3 usually representing no significant (0-4) depression. Anxiety: KAVIN-7 Total Score: 0 usually representing no significant (0-4) anxiety. Finally, the following table shows the patient's overall global physical and mental health using the PROMIS scale: PROMIS-10 Flowsheet Row Office Visit from 11/07/2023 in Neurology Office Visit from 07/18/2023 in Neurology Global Physical Health T Score 34.9 37.4 Global Mental Health T Score 50.8 48.3 0-10 Standard Pain Scale 3 4 *PROMIS-10 scoring scale: mean = 50, over 50 is above average, under 50 is below average In addition, the following non-motor symptoms and palliative concerns were evaluated: Sleep/Fatigue: REM sleep behavior disorder: No Restless Legs Syndrome: No Leg swelling: No Impaired sense of smell: Yes Cognition: Cognitive impairment: no MoCA Cognitive assessment: Hallucinations and delusions: no Apathy: no Impulse control disorder: No Palliative Concerns: Caregiver burden: Not at all Spiritual concerns: No Advanced directives on file: Palliative services: Yes He is getting currently. Therapy and Exercise: Last PT Date: October 2023 Last OT Date: March [address] Date: March 2023 Exercises Regularly: Yes Chair exercises and works with a hop strainer ALLERGIES Allergen Reactions Abilify [Aripiprazo* Contraindication-Medical Surgical People with Parkinson's disease should not take this or other antipsychotics except Nuplazid, Seroquel, and Clozaril can be prescribed. Ciprofloxacin Other: See Comments Tendon rupture (see black box warning)-this occurred in him when Cipro was used for cellulitis/sepsis Compazine [Prochlor* Contraindication-Medical Surgical This should not be given to people with Parkinson's disease. If not (more content not included)... [facility] 08-11-2023 Telephone encounter Note Called and left a voicemail on bother number to reschedule a missed virtual visit. [facility] 08-11-2023 Miscellaneous Notes Called and left a voicemail on bother number to reschedule a missed virtual visit. documented in this encounter [facility] 07-18-2023 History of Present illness Narrative Images from the original note were not included. [facility] NEUROTOXIN VISIT Date: July 18, 2023 Name: Katharine Larsen SUBJECTIVE: Subjective history Injections worked well. Hospitalizations and rehab stays have delayed injections. Last injection lasted 90-100 days. Happy with result. Not ambulatory but working on it. Has home PT and a hop strainer. Left foot is plantarflexed. Ankle doesn't touch the floor when he walks. Working on it with therapy and it is improving. 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) Date of diagnosis: 11/12/2018 Other treatments that have been tried and failed: Medications for Parkinson's Date of first neurotoxin treatment: 03/08/2019 Type of neurotoxin given: OnabotulinumtoxinA (Botox) Frequency of current neurotoxin treatment: 90 days Estimated frequency and duration of treatment: continue with current injection interval; will reassess after 1 year Last Injection Notes Date of last Injection: 09/20/2022 Type of neurotoxin: OnabotulinumtoxinA (Botox) Total amount injected: 190 units Degree of effectiveness of last injection:100% Duration of effect: 13 week(s) Side effects related to last injection: None Current pain symptoms: No Current functional limitations: moderate Last neurotoxin regimen: Med right left midline Quadratus plantae 45 50 Flexor digitorum brevis 45 50 Total: 190 Allergies: ALLERGIES Allergen Reactions Penicillins Unknown Current Medications: Current Outpatient Medications Medication Sig carbidopa-levodopa (SINEMET) 25-100 mg per tablet 1 tab at 230AM, 2 tabs at 8AM, 11AM, 2PM, 5PM and 1.5 tabs at 8PM baclofen 10 mg tablet Take 1 tablet in the morning and afternoon and 1/2 tablet in the evening for one week and then take 1 tablet three times daily amantadine HCl (SYMMETREL) 100 mg capsule Take 1 capsule by mouth once daily. acetaminophen (TYLENOL) 325 mg tablet Take 2 tablets by mouth every 4 hours as needed for pain or fever (specify temp.). senna-docusate (SENNA-S) 8.6-50 mg per tablet Take 1 tablet by mouth two times a day. solifenacin succinate (SOLIFENACIN ORAL) Take by mouth daily at bedtime. Pt and unsure of dosage rasagiline (AZILECT) 1 mg tab Take 1 tablet by mouth once daily. No current facility-administered medications for this visit. OBJECTIVE: BP 153/79 (BP Site: Left Arm, BP Position: Sitting, BP Cuff Size: Regular Adult) Pulse 78 SpO2 100% Other notable exam findings: mild curling of toes both feet. Atropied L calf muscles. Weak left dorsiflexion. Left foot drop when ambulating ASSESSMENT AND PLAN: Mr. 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 Injections are working well. Repeated same injection pattern. Unclear if plantarflexion on the left is dystonia vs chronic foot drop. After obtaining informed consent, neurotoxin injections were carried out as outlined below. Current Injection Note Type of neurotoxin: OnabotulinumtoxinA (Botox) Total amount drawn: 200 units Total amount injected: 190 units Total amount wasted: 10 units Dilution: 1 cc NSS/100 U Administered with EMG guidance: No Administered with Ultrasound guidance: No Lot#: [id number] Exp Date: 07/2025 Today's neurotoxin regimen: Med right left midline Quadratus plantae 45 50 Flexor digitorum brevis 45 50 Total: 190 Future plan of care: Follow up: 3 months Neurotoxin change: No Dose change:No Carolina Damon MD July 18, 2023 12:29 PM Dept of NEUROLOGY TIME OUT/ PROCEDURE NOTE: Informed consent Katharine Larsen Medical Record: [id number] Procedure: neurotoxin intramuscular injection The risks, benefits and anticipated outcomes of the procedure, the risks and benefits of the alternatives to the procedure and the roles and tasks of the personnel to be involved were discussed with the patient and the patient consents to the procedure and agrees to proceed. I verify that I personally obtained Katharine Larsen's consent. Carolina Damon MD July 18, 2023 12:29 PM UNIVERSAL PROTOCOL / SAFETY CHECKLIST Procedure to be Performed: neurotoxin injection Sign In: A Moment of CARE was completed. Personnel directly involved wiht the procedure wore the appropriate PPE (Personal Protective Equipment). No special equipment needed. Patient/Surrogate Stated/Verified: Patient name Date of Relative allergies The intended procedure Time Out Communication: Intended patient and procedure match the source documents. Consent documented and matches the intended procedure. No relevant labs, photos, and/or imaging studies were applicable for review. No correct side/site applicable for marking and visibility. Medications required for procedure verified. No fire risk assessment and interventions applicable. No implant(s) inserted. Sign Out: No specimen collected. No instruments, equipment or retained foreign bodies applicable. Post-procedure follow-up management communicated and Plan of Care Visit completed when applicable. -- Carolina Damon MD documented in this encounter [facility] 07-17-2023 Instructions Juan R John MD - 07/17/2023 9:30 AM EDT It was a pleasure to see you today. We addressed the following diagnoses: Parkinson's disease without dyskinesia, with fluctuating manifestations (hcc) (primary encounter diagnosis) Dystonia of foot My recommendations are as follows: 07/17/2023 Visit: Parkinson's disease with off period dystonia in left > right leg - Try adding a dose of Sinemet, 2 tablets at 230AM and move the daytime doses closer together as below. Patient's perception of importance for healthcare provider to let them know of research trials for which they may be eligible? Very Important Movement Disorders Medication Schedule: Medications 230am 8am 11am 2pm 5pm 8pm 11pm Sinemet 25/100 1 2 2 2 2 1.5 Baclofen 10 mg 1 1 1 Rasagiline 1 mg 1 Amantadine 100 mg 1 Return at or around: 11/14/23 If there are any concerns before your next visit, please call or you can send a message through [employer]. You can also now schedule and select appointments through [employer]. Juan R John MD documented in this encounter [facility] 07-17-2023 History of Present illness Narrative [facility] - FOLLOW UP EVALUATION Nico Schmidt MD [address] [facility] [address] [facility] [id number] Dear Nico Schmidt MD: I had the pleasure of seeing Mr. Larsen for follow-up today. As you know he is a 72 year old left-handed male with a history of Parkinson's disease complicated by motor fluctuations and dyskinesia since 2012. He is seen with his . Subjective Interval History: He has been better since hospitalization. He was in rehab hospital in March. He is doing better now. His greatest problem is when the rigidity hits. This is how he describes straightening and stiffening of his legs. He is taking some baclofen for this but sometimes he gets stiff affer taking it. Today he had his medications at 815AM and now at 9AM his legs straightening out and he started to slide out of the transport chair. Its worse in the left leg. When he doesn't have the rigidity he can walk with a walker with the therapist. This isn't every day. He has a hop strainer that comes 1 day a week as well. Sometimes he is a bord in the morning and in pain before his first dose. He his best between 1030 and 430 so this is when they have therapists come. He is taking in PO and by PEG. He has had 2 good speech pathologists. Prior to hospitization he was on Rytary which worked better than Sinemet. Movement Disorders Medications Schedule - as of the start of the visit: Medications 230am 8am 11am 2pm 5pm 8pm 11pm Sinemet 25/100 1 2 2 2 2 1.5 Baclofen 10 mg 1 1 1 Rasagiline 1 mg 1 Amantadine 100 mg 1 Parkinson's Motor Complications Medication benefit onset: 30 minutes Medication duration: 4 hours Wearing off: yes Painful off-state dystonia: yes Dyskinesia: yes Prior Anti-Parkinson Therapies Amantadine IR Carbidopa/Levodopa ER (Rytary) Rasagiline Questionnaires: In addition, the following areas that may be affected by abnormal involuntary movements were evaluated: Daily activities Difficulties with eating: Difficulties in dressing: Yes (moderate) Difficulties with hygiene activities: Yes (slight) Difficulties with handwriting: Yes (severe) Difficulties with doing hobbies and other activities: Yes (slight) Difficulties turning in bed: Yes (mild) Difficulties getting out of bed, car or chair: Yes (severe) Tremors/Gait/Balance Shaking or tremors: Yes (slight) Walking and balance problems: Yes (severe) Number of falls in the Last Month: 0 Gait freezing: Yes (moderate) Autonomic/Pain Lightheadeness on standin (none) Urinary problems: Yes (slight) Constipation problems: Yes (slight) Pain and other sensations: Speech/Swallowing Speech problems: Yes (mild) Drooling: Yes (mild) Chewing and swallowing problems: 0 (none) Sleep/Fatigue Sleep problems: Yes (mild) Daytime sleepiness: Fatigue: 0 (none) Mood/Behavior Depression: PHQ-9 Score: 6 usually representing mild (5-9) depression. Anxiety: KAVIN-7 Total Score: 1 usually representing no significant (0-4) anxiety. Finally, the following table shows the patient's overall global physical and mental health using the PROMIS scale: PROMIS-10 Flowsheet Row Office Visit from 07/17/2023 in Neurology [facility] from 04/08/2023 in Neurology Global Physical Health T Score 37.4 42.3 Global Mental Health T Score 48.3 45.8 0-10 Standard Pain Scale 4 4 *PROMIS-10 scoring scale: mean = 50, over 50 is above average, under 50 is below average In addition, the following non-motor symptoms and palliative concerns were evaluated: Sleep/Fatigue: REM sleep behavior disorder: No Restless Legs Syndrome: No Leg swelling: No Impaired sense of smell: Yes Cognition: Cognitive impairment: no MoCA Cognitive assessment: Hallucinations and delusions: no Apathy: no Impulse control disorder: No Palliative Concerns: Caregiver burden: Not at all Spiritual concerns: No Advanced directives on file: Palliative services: Yes He is getting currently. Therapy and Exercise: Last PT Date: March 2023 Last OT Date: March [address] Date: March 2023 Exercises Regularly: Yes Chair exercises and works with a hop strainer ALLERGIES Allergen Reactions Penicillins Unknown Current Outpatient Medications Medication Sig baclofen 10 mg tablet Take 1 tablet in the morning and afternoon and 1/2 tablet in the evening for one week and then take 1 tablet three times daily carbidopa-levodopa (SINEMET) 25-100 mg per tablet 2 tabs at 8AM, 12PM, 4PM and 1.5 tabs at 8PM amantadine HCl (SYMMETREL) 100 mg capsule Take 1 capsule by mouth once daily. acetaminophen (TYLENOL) 325 mg tablet Take 2 tablets by mouth every 4 hours as needed for pain or fever (specify temp.). senna-docusate (SENNA-S) 8.6-50 mg per tablet Take 1 tablet by mouth two times a day. solifenacin succinate (SOLIFENACIN ORAL) Take by mouth daily at bedtime. Pt and unsure of dosage rasagiline (AZILECT) 1 mg tab Take 1 tablet by mouth once daily. No current facility-administered medications for this visit. Objective Vital Signs: BP 175/111 (BP Site: Right Leg, BP Position: Sitting, BP Cuff Size: Regular Adult) Pulse 79 Resp 16 Wt 52.8 kg (116 lb 6.5 oz) SpO2 97% BMI 18.23 kg/m Orthostatic Vitals: None for this encounter Weight: 52.8 kg (116 lb 6.5 oz) No LMP for male patient. Body mass index is 18.23 kg/m . Movement Disorders Scales Performed: MDS-UPDRS Motor subscale condition of exam Medication Off/On/Naiive ON Time of UPDRS 0908 Time of Last Medication 0815 Last Medication Taken Sinemet, Rasagiline, and Amantadine, and baclofen 10 mg DBS Right N/A DBS Left N/A MDS-UPDRS Motor subscale scores Speech 3-Moderate. Speech is difficult to understand to the point that some, but not most sentences are poorly understood. Facial Expression 4-Severe. Masked facies with lips parted most of the time when the mouth is at rest. Rigidity Neck 2-Mild. Rigidity detected without the activation maneuver, but full range of motion is easily achieved. Rigidity Right Upper Extremity 2-Mild. Rigidity detected without the activation maneuver, but full range of motion is easily achieved. Rigidity Left Upper Extremity 2-Mild. Rigidity detected without the activation maneuver, but full range of motion is easily achieved. Rigidity Right Lower Extremity 2-Mild. Rigidity detected without the activation maneuver, but full range of motion is easily achieved. Rigidity Left Lower Extremity 3-Moderate. Rigidity detected without the activation maneuver. Full range of motion is achieved with effort. Finger Taps Right 1-Slight. a) the regular rhythm is broken with one or two interruptions or hesitations of the tapping movement, b) slight slowing, c) the amplitude decrements near the end of the 10 taps. Finger Taps Left 2-Mild. a) 3 to 5 interruptions during tapping, b) mild slowing, c) the amplitude decrements midway in the 10-tap sequence. Hand Movements Right 0-Normal. No problem. Hand Movements Left 2-Mild. a) 3 to 5 interruptions during the movements, b) mild slowing, c) the amplitude decrements midway in the task. Arm Movements Right 2-Mild. a) 3 to 5 interruptions during the movements, b) mild slowing, c) the amplitude decrements midway in the sequence. Arm Movements Left 3-Moderate. a) more than 5 interruptions during the movement or at least one longer arrest (freeze) in ongoing movement, b) moderate slowing, c) the amplitude decrements starting after the 1st supination-pronation sequence. Toe Taps Right 3-Moderate. a) more than 5 interruptions during the tapping movements or at least one longer arrest (freeze) in ongoing movement, b) moderate slowing, c) the amplitude decrements starting after the first tap. Toe Taps Left 3-Moderate. a) more than 5 interruptions during the tapping movements or at least one longer arrest (freeze) in ongoing movement, b) moderate slowing, c) the amplitude decrements starting after the first tap. Leg Agility Right 1-Slight. a) the regular rhythm is broken with one or two interruptions or hesitations of the movement, b) slight slowing, c) the amplitude decrements near the end of the task. Leg Agility Left 2-Mild. a) 3 to 5 interruptions during the movements, b) mild slowness, c) the amplitude decrements midway in the task. Arise From Chair 3-Moderate. Needs to push off, but tends to fall back, or may have to try more than one time using arms of chair, but can get up without help. Gait 4-Severe. Cannot walk at all or only with another person's assistance. (gait is normal but uses walker) Gait Freezing 4-Severe. Freezes multiple times during straight walking. Posture Stability 4-Severe. Very unstable, tends to lose balance spontaneously or with just a gentle pull on the shoulders. Posture 3-Moderate. Stooped posture, scoliosis or leaning to one side that cannot be corrected volitionally to a normal posture by the patient. Body Bradykinesia 0-Normal. No problems. Postural Tremor Hand Right 0-Normal. No tremor. Postural Tremor Hand Left 0-Normal. No tremor. Kinetic Tremor Right 0-Normal. No tremor. Kinetic Tremor Left 0-Normal. No tremor. Rest Tremor Amplitude Right Upper Extremity 0-Normal. No tremor. Rest Tremor Amplitude Left Upper Extremity 1-Slight. < 1 cm in maximal amplitude. Rest Tremor Amplitude Right Lower Extremity 0-Normal. No tremor. Rest Tremor Amplitude Left Lower Extremity 1-Slight. < 1 cm in maximal amplitude. Rest Tremor Amplitude Lip/Jaw 0-Normal. No tremor. Rest Tremor Constancy 1-Slight. Tremor at rest is present < 25% of the entire examination period. MDS-UPDRS Motor subscale totals Left Total 19 Right Total 11 Midline Total 27 Tremor Total / 10 3 PIGD Total / 3 12 Overall Total 58 % Change Compared to Last Filed Total Assessment and Plan: Assessment Mr. Larsen is a left-handed 72 year old year old male with idiopathic Parkinson's disease and frequent falls. His condition is complicated by off period dystonia in left > right leg. The following are the current problems noted and addressed during this visit: Parkinson's disease without dyskinesia, with fluctuating manifestations (hcc) (primary encounter diagnosis) Dystonia of foot Plan 07/17/2023 Visit: Parkinson's disease with off period dystonia in left > right leg - Try adding a dose of Sinemet, 2 tablets at 230AM and move the daytime doses closer together as below. Patient's perception of importance for healthcare provider to let them know of research trials for which they may be eligible? Very Important Updated Movement Disorders Medication Schedule: Medications 230am 8am 11am 2pm 5pm 8pm 11pm Sinemet 25/100 1 2 2 2 2 1.5 Baclofen 10 mg 1 1 1 Rasagiline 1 mg 1 Amantadine 100 mg 1 Level of service : 86065 (40-54 min). Time spent 43 min on the day of service, which included preparing to see the patient, [id number] patient care, completing clinical documentation, obtaining and/or reviewing separately obtained history, performing a medically appropriate examination, counseling and educating the patient/family/caregiver, and ordering medications, tests, or procedures. Thank you for allowing me to be part of the clinical care of this patient! I look forward to continued participation in the patient s care with you. Please do not hesitate to call with any questions. Sincerely, Juan R John MD documented in this encounter [facility] 06-20-2023 Telephone encounter Note RN called and spoke with patient's spouse and advised to reduce to 1/2 tab rasagiline while on Cipro. Patient's spouse verbalized understanding of all information provided and agrees to POC at this time. Kera Kearns RN [facility] 06-20-2023 Miscellaneous Notes RN called and spoke with patient's spouse and advised to reduce to 1/2 tab rasagiline while on Cipro. Patient's spouse verbalized understanding of all information provided and agrees to POC at this time. Kera Kearns RN June 20, 2023 3:45 PM Just have him reduce the rasagiline to 1/2 tablet. It gets metabolized a little more slowly and that will be the right dose while on Cipro. calling to say he was prescribed Cipro 500 mg BID for 10 days for a UTI today. The pharmacy told him this would interact with his Rasagiline. She wants to know if this is okay for him to take or if there is an alternative recommended by Dr. John? documented in this encounter [facility] 06-20-2023 Telephone encounter Note June 20, 2023 3:45 PM Just have him reduce the rasagiline to 1/2 tablet. It gets metabolized a little more slowly and that will be the right dose while on Cipro. [facility] 06-19-2023 Telephone encounter Note calling to say he was prescribed Cipro 500 mg BID for 10 days for a UTI today. The pharmacy told him this would interact with his Rasagiline. She wants to know if this is okay for him to take or if there is an alternative recommended by Dr. John? [facility] 05-27-2023 Note [facility] 05-23-2023 Miscellaneous Notes Called and left voicemails on both numbers listed. Need to reschedule a missed virtual visit with Michaela Mancini. Left a call back number documented in this encounter [facility] 05-09-2023 History of Present illness Narrative PALLIATIVE MEDICINE AT HOME PROGRESS NOTE SERVICE DATE: May 09, 2023 IDENTIFICATION AND INTRODUCTION: Katharine Larsen is a 72 year old male Michaela Mancini APRN.DOUGH MIXING MACHINE OPERATOR May 09, 2023 8:06 AM No show for virtual visit, scheduling notified Michaela Mancini CNP This note may have been partially generated using the [employer] voice recognition system. While every effort was made to correct voice recognition errors, kindly be aware that some errors may occasionally occur. documented in this encounter [facility] 05-07-2023 Miscellaneous Notes called back. She needs RX for Baclofen sent to [facility]. She also said the Botoxx appointment was intentionally cancelled because they can't make it. R/S for June and placed on wait list. Botox appointment was canceled via text by patient. Patient has been rescheduled Call to patient, no answer. Message left for return call I will have the cancelled Botox appointment checked on. In regards to the Baclofen, typically people take it three times daily so if he is tolerating it and needs more efficacy, I would like to do: Week 1: 1 tablet in am and afternoon and 0.5 in the evening Then 1 tablet three times daily This will be communicated to him and his . Taisha John APRN-JAYA Pt's Margarita phoned - states he was prescribed baclofen 0.5 tabs four x daily, when he was in the hospital for rigidity. He does not have refills - should he continue on this or is there something else that would manage this better for him. He will need something soon. [facility] pharmacy on file. [phone] documented in this encounter [facility] 04-08-2023 Instructions Taisha John APRN.CNP - 04/08/2023 10:05 AM EST It was a pleasure to see you today. We addressed the following diagnoses: Parkinson's disease with dyskinesia and fluctuating manifestations Dysphagia, unspecified type (primary encounter diagnosis) Focal dystonia My recommendations are as follows: 04/08/2023 Visit: Parkinson's disease: Continue medications as scheduled Continue physical therapy, occupational therapy, and speech therapy Continue exercising Continue palliative care visits Continue Botox injections for dystonia At your convenience, please provide us with a copy of your advanced directives (living will and durable power of criminal defense attorney for healthcare): By Email: Send your document(s) to [email or web address] as an attachment in either PDF, TIFF, or JPEG format. By Mail: [facility] Information Management, [employer] Advance Directive Processing [address] [place], [place] [address] By In person at any [facility] location Please note: You can use the address or fax number regardless of which [facility] you utilize, and we will make sure it is filed appropriately. Movement Disorders Medication Schedule: Medications 8am 12pm 4pm 8pm Sinemet 25/100 2 2 2 1.5 Rasagiline 1 mg 1 Amantadine 100 mg 1 Return in about 2 months (around 06/07/2023) for With Dr. John. If there are any concerns before your next visit, please call or you can send a message through [employer]. You can also now schedule and select appointments through [employer]. Taisha John APRN.JAYA documented in this encounter [facility] 04-08-2023 History of Present illness Narrative [facility] - FOLLOW UP EVALUATION Nico Schmidt MD [address] [address] [facility] [address] Dear Nico Schmidt MD: I had the pleasure of seeing Mr. Larsen for follow-up today. As you know he is a 72 year old left-handed male with a history of Parkinson's disease complicated by motor fluctuations and dyskinesia since 2012. He is seen alone. We had a visit using: [employer] I have communicated my name and active licensure. The patient's identity and physical location were verified at the time of this visit. Either the patient or their legal customer service representative teller has been informed of the risks and benefits of -- and alternatives to -- treatment through a remote evaluation and consents to proceed with the evaluation remotely. Subjective 12/24/[address] John: Dysphagia - add on speech therapy for homecare. Continue PT. Leg cramps Handicap Placard Interval History: He said he does not have any Parkinson's disease specific plans. tube Movement Disorders Medications Schedule - as of the start of the visit: Medications 8am 12pm 4pm 8pm Sinemet 2 2 2 1.5 Rasagiline 1.0 mg 1 Amantadine 100 mg 1 Baclofen 10mg 1/2 tab 4 times daily Parkinson's Motor Complications Medication benefit onset: 30 minutes Medication duration: 4 hours Wearing off: yes Painful off-state dystonia: yes Dyskinesia: yes Prior Anti-Parkinson Therapies Amantadine IR Carbidopa/Levodopa ER (Rytary) Rasagiline Questionnaires: In addition, the following areas that may be affected by abnormal involuntary movements were evaluated: Daily activities Difficulties with eating: Yes (mild) Difficulties in dressing: Yes (moderate) Difficulties with hygiene activities: Yes (mild) Difficulties with handwriting: Yes (severe) Difficulties with doing hobbies and other activities: Yes (slight) Difficulties turning in bed: Yes (slight) Difficulties getting out of bed, car or chair: Yes (severe) Tremors/Gait/Balance Shaking or tremors: Yes (slight) Walking and balance problems: Yes (severe) he walks with a person assisting him Number of falls in the Last Month: once 1 Gait freezing: Yes (slight) Autonomic/Pain Lightheadeness on standin (none) Urinary problems: Yes (severe) Constipation problems: 0 (none) Pain and other sensations: Yes (moderate) in his legs as he has not had Botox for a while Speech/Swallowing Speech problems: Yes (moderate) Drooling: Yes (slight) Chewing and swallowing problems: Yes-he has a feeding tube Sleep/Fatigue Sleep problems: Yes (slight) Daytime sleepiness: Yes (mild) Fatigue: Yes (slight) Mood/Behavior Depression: PHQ-9 Score: 2 usually representing no significant (0-4) depression. He said he sometimes has a little but it does not do any good so he gets rid of it. Anxiety: KAVIN-7 Total Score: 0 usually representing no significant (0-4) anxiety. Finally, the following table shows the patient's overall global physical and mental health using the PROMIS scale: PROMIS-10 Flowsheet Row Distance Health from 04/08/2023 in Neurology Appointment from 12/25/2022 in Neurology Global Physical Health T Score 42.3 37.4 Global Mental Health T Score 45.8 31.3 0-10 Standard Pain Scale 4 3 *PROMIS-10 scoring scale: mean = 50, over 50 is above average, under 50 is below average In addition, the following non-motor symptoms and palliative concerns were evaluated: Sleep/Fatigue: REM sleep behavior disorder: No Restless Legs Syndrome: No Leg swelling: No Impaired sense of smell: Yes Cognition: Cognitive impairment: no MoCA Cognitive assessment: Hallucinations and delusions: no Apathy: no Impulse control disorder: No Palliative Concerns: Caregiver burden: Not at all Spiritual concerns: No Advanced directives on file: Palliative services: Yes He is getting currently. Therapy and Exercise: Last PT Date: March 2023 Last OT Date: March [address] Date: March 2023 Exercises Regularly: Yes Chair exercises and works with a hop strainer ALLERGIES Allergen Reactions Penicillins Unknown Current Outpatient Medications Medication Sig PEG 7283-Tqobogclvnf-Zdj C (MOVIPREP) 100-7.5-2.691 gram Take by mouth. carbidopa-levodopa (SINEMET) 25-100 mg per tablet 2 tabs at 8AM, 12PM, 4PM and 1.5 tabs at 8PM amantadine HCl (SYMMETREL) 100 mg capsule Take 1 capsule by mouth once daily. acetaminophen (TYLENOL) 325 mg tablet Take 2 tablets by mouth every 4 hours as needed for pain or fever (specify temp.). miconazole 2 % powder Apply 1 application to affected area two times a day. To back pantoprazole (PROTONIX) 40 mg/20 mL oral liquid Take 20 mL by mouth two times a day before meals at 6 am and 4 pm. polyethylene glycol 3350 17 gram packet Take 1 Packet by mouth once daily. Dissolve dose in 4 - 8 ounces of liquid and take as directed. senna-docusate (SENNA-S) 8.6-50 mg per tablet Take 1 tablet by mouth two times a day. solifenacin succinate (SOLIFENACIN ORAL) Take by mouth daily at bedtime. Pt and unsure of dosage rasagiline (AZILECT) 1 mg tab Take 1 tablet by mouth once daily. pantoprazole DR (PROTONIX) 40 mg tablet Take 1 tablet by mouth every afternoon. baclofen 10 mg tablet GIVE 1/2 TABLET VIA G-TUBE 4 TIMES DAILY No current facility-administered medications for this visit. Objective Movement Disorders Scales Performed: MDS-UPDRS Motor subscale condition of exam Medication Off/On/Naiive ON Time of UPDRS 0939 Time of Last Medication 0800 Last Medication Taken Sinemet, Rasagiline, and Amantadine DBS Right N/A DBS Left N/A MDS-UPDRS Motor subscale scores Speech 2-Mild. Loss of modulation, diction, or volume, with a few words unclear, but the overall sentences easy to follow. Facial Expression 4-Severe. Masked facies with lips parted most of the time when the mouth is at rest. Finger Taps Right 1-Slight. a) the regular rhythm is broken with one or two interruptions or hesitations of the tapping movement, b) slight slowing, c) the amplitude decrements near the end of the 10 taps. Finger Taps Left 2-Mild. a) 3 to 5 interruptions during tapping, b) mild slowing, c) the amplitude decrements midway in the 10-tap sequence. Hand Movements Right 0-Normal. No problem. Hand Movements Left 2-Mild. a) 3 to 5 interruptions during the movements, b) mild slowing, c) the amplitude decrements midway in the task. Arm Movements Right 2-Mild. a) 3 to 5 interruptions during the movements, b) mild slowing, c) the amplitude decrements midway in the sequence. Body Bradykinesia 0-Normal. No problems. Postural Tremor Hand Right 0-Normal. No tremor. Postural Tremor Hand Left 0-Normal. No tremor. Kinetic Tremor Right 0-Normal. No tremor. Kinetic Tremor Left 0-Normal. No tremor. He had oral and at least upper body dyskinesia (could not see lower half of body) Assessment and Plan: Assessment Mr. Larsen is a left-handed 72 year old year old male with idiopathic Parkinson's disease and frequent falls. He continues to recover from his hospitalization in December. He is getting all three therapies at home and feels overall, he is making progress. He does not feel any changes are necessary with his medications right now, but I did help him get the Botox appointment moved up as he missed his last one when he was hospitalized. The following are the current problems noted and addressed during this visit: Parkinson's disease with dyskinesia and fluctuating manifestations Dysphagia, unspecified type (primary encounter diagnosis) Focal dystonia Plan 04/08/2023 Visit: Parkinson's disease: Continue medications as scheduled Continue physical therapy, occupational therapy, and speech therapy Continue exercising Continue palliative care visits Continue Botox injections for dystonia At your convenience, please provide us with a copy of your advanced directives (living will and durable power of criminal defense attorney for healthcare): By Email: Send your document(s) to as an attachment in either PDF, TIFF, or JPEG format. By Mail: [facility] Information Management, Ab[employer] Advance Directive Processing [address] [place], [place] [address] By In person at any [facility] location Please note: You can use the address or fax number regardless of which [facility] you utilize, and we will make sure it is filed appropriately. Updated Movement Disorders Medication Schedule: Medications 8am 12pm 4pm 8pm Sinemet 25/100 2 2 2 1.5 Rasagiline 1 mg 1 Amantadine 100 mg 1 Level of service : 25461 ( 30-39 min). Time spent 37 min on the day of service, which included preparing to see the patient, [id number] patient care, completing clinical documentation, obtaining and/or reviewing separately obtained history, performing a medically appropriate examination, and counseling and educating the patient/family/caregiver. Taisha John APRN.JAYA documented in this encounter [facility] 03-21-2023 History of Present illness Narrative PALLIATIVE MEDICINE AT HOME PROGRESS NOTE SERVICE DATE: 03/21/2023 Referring Physician: Inpatient palliative medicine team at [facility] Primary Physician: Nico Schmidt MD IDENTIFICATION AND INTRODUCTION: Katharine Larsen is a 72 year old male This visit took place Virtually; I have communicated my name and active licensure. The patient's identity and physical location were verified at the time of this visit. The patient or their legal customer service representative teller has been informed of the risks and benefits of -- and alternatives to -- treatment through a remote evaluation and consents to proceed with the evaluation remotely. 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 After rehab went home, but then readmitted to rehab. During hospital stay was seen by our inpatient palliative medicine team. On virtual visit today- - Prior to hospital stay was very mobile, until increased parkinson's rigidity set in just prior to hospital stay. - In rehab was trying to work on standing and to stay standing 5 minutes, progressed to walking with walker 20-30 ft with PT's help, still mainly wheelchair bound. - Waiting for home health therapy to start + rigidity Dyskinesia- + legs movements Occasional tremors No falls lately -Cramping in feet and legs- on botox injections every 90 days, effective. -Trouble sleeping- does not take any thing for sleeping, did not do well with melatonin or other drugs. -Pain- denies -Peg- bolus tube feeding 4 times per day, tolerating well. - 25# weight loss since June 2022, now has regained 14 # since starting tube feeds, Pleasure foodds- this morning had cookie, toast, and tangerine, can eat everything except hamburger, no coughing or choking. -appetite poor, lost sense of smell about 8 year ago. Plan to get rid wean off tube feeding eventually and resume oral diet. -Bowels- takes Senna 1 tablet as needed, miralax prn. since he has been on tube feeds, has not needed senna or miralax. -Wounds- none -Urinary urgency, wears depends. -Insomnia- trazodone stopped due to side effects. SOCIAL HISTORY: Lives with Previously worked in [employer] Social History Tobacco Use Smoking status: Never Smokeless tobacco: Never Substance Use Topics Alcohol use: Not Currently Drug use: Not Currently PAST MEDICAL HISTORY: PAST MEDICAL HISTORY Diagnosis Date BPH (benign prostatic hyperplasia) Diabetes (HCC) Low Hgb A1C - now regaular diet HTN (hypertension) MYRIAM (obstructive sleep apnea) Parkinson's disease PAST SURGICAL HISTORY: PAST SURGICAL HISTORY Procedure Laterality Date TOE SURGERY HX TONSILLECTOMY & ADENOIDECTOMY <AGE 10 CURRENT MEDICATIONS: carbidopa-levodopa (SINEMET) 25-100 mg per tablet 2 tabs at 8AM, 12PM, 4PM and 1.5 tabs at 8PM amantadine HCl (SYMMETREL) 100 mg capsule Take 1 capsule by mouth once daily. mirabegron (MYRBETRIQ) 50 mg Tb24 Take 1 tablet by mouth once daily. At 2 PM acetaminophen (TYLENOL) 325 mg tablet Take 2 tablets by mouth every 4 hours as needed for pain or fever (specify temp.). baclofen 5 mg tablet Take 1 tablet by mouth two times a day. hydrALAZINE (APRESOLINE) 10 mg tablet Take 1 tablet by mouth three times a day as needed (for SBP greater than 190). miconazole 2 % powder Apply 1 application to affected area two times a day. To back pantoprazole (PROTONIX) 40 mg/20 mL oral liquid Take 20 mL by mouth two times a day before meals at 6 am and 4 pm. polyethylene glycol 3350 17 gram packet Take 1 Packet by mouth once daily. Dissolve dose in 4 - 8 ounces of liquid and take as directed. senna-docusate (SENNA-S) 8.6-50 mg per tablet Take 1 tablet by mouth two times a day. solifenacin succinate (SOLIFENACIN ORAL) Take by mouth daily at bedtime. Pt and unsure of dosage rasagiline (AZILECT) 1 mg tab Take 1 tablet by mouth once daily. [DISCONTINUED] levodopa (INBRIJA) 42 mg Inhale 2 capsules as instructed as needed. Take as needed up to 5 times daily ALLERGIES: ALLERGIES Allergen Reactions Penicillins Unknown FAMILY HISTORY: FAMILY HISTORY Problem Relation Age of Onset Diabetes Father Hypertension Father Hyperlipidemia Father other (TIA) Father Hypertension Mother Thyroid Mother other (Parkinsons Disease [Other]) Other Cousin Systemic Lupus Erythematosus No Family History Multiple Sclerosis No Family History Blood Clots No Family History Blood Disease No Family History DVT No Family History Factor 5 Leiden No Family History Stroke No Family History Bipolar disorder No Family History Schizophrenia No Family History Parkinson s Disease No Family History Dementia No Family History Alzheimer's Disease No Family History COPD No Family History Aneurysm No Family History REVIEW OF SYSTEMS: Modified ESAS (Sterling Symptom Assessment Scale): Information Provided By: Patient and Family member Pain: None Nausea: None Loss of Appetite: Moderate Constipation: None Shortness of Breath: None Drowsiness: None Tiredness: Mild Depression: Not asked Anxiety: Not asked Objective PHYSICAL EXAMINATION: General Appearance: No apparent distress and Thin Skin: No jaundice Eyes: No Icterus HENT: On limited camera view mucous membranes appear moist. Neck: Grossly normal Lungs: Respirations unlabored, no audible wheeze CV: Not examined Abdomen: Not examined : Not examined Musculoskeletal: Not examined Lymphatics: Not examined Neuro: Alert and oriented to time place and person, + Parkinson's faces Psych: Well groomed, Affect congruent with mood, and Good eye contact DATA: Diagnostic tests reviewed for today's visit: Most recent labs Creatinine Date Value Ref Range Status 01/14/2023 0.85 0.73 - 1.22 mg/dL Final Estimated Creatinine Clearance: 59.3 mL/min (based on SCr of 0.85 mg/dL). Diagnostic tests and information reviewed for today's visit: (All reviewed data/notes are most recent unless otherwise noted) Labs Imaging Notes Discussions Chemistry, CBC Discharge summary Inpatient palliative Hospitalist GI Opioid Management: No Assessment & Plan Parkisnon's Disease - Followed by Dr. Juan R John - Diagnosed in 2012 - Dyskinesia, rigidity, tremors, hx of falls - On Sinemet 25/100 2 tabs at 8AM, 12PM, 4PM and 1.5 tabs at 8PM - On Azilect and Symmetrel - Recent decline in mobility due to recent hospital stay/malnutrition, became bed and wheelchair bound, slowly progressing, ambulating with walker and assist of PT 25 ft. Pain due to muscle cramps/spasms - On Baclofen 5 mg BID -Botox injections every 90 days- effective - Tylenol prn Dysphagia/Moderate Protein Calorie Malnutrition - Moderate PCM Per 12/27/22 RD eval - Gastritis and esophagitis with bleeding on 12/27/22 EGD - EGD also with excessive gastric fluid on 12/27/21- Gastroenterology suspected gastroparesis d/t Parkinson's, 2 attempts at gastric emptying study, but pt not able to complete successfully. - On Protonix 40 mg BID - Peg placed on 01/07/23 and tolerating bolus tube feeds 4 times /day - Dysphagia resolved- tolerating regular consistency pleasure diet in small amounts, but appetite still poor, his goal it to increase oral intake and wean off tube feeds. - Lost 25# from June 2022-Dec 2022, since starting tube feeds has regained 14# Weakness/debility - Improving from recent rehab stays x2 - Home PT Insomnia -Difficulty sleeping but pt states bad reaction to melatonin and other sleeping pills in the past - Talked to pt about option of magnesium to help with sleep and may also help muscles. He would like to hold off on this for now. Constipation - Resolved since tube feeds started History of hypertension - Off meds now due to orthostatic hypotension secondary to Parkinson's History of diabetes Resolved, no current medications, last A1C= 5.6 Palliative Care Encounter/Serious Illness Conversation: -Reviewed the role and structure of Palliative Medicine for patients with advanced life-limiting illnesses as a means of providing optimal symptom management as well as assisting with complex decision making. - Discussed Palliative Medicine at Home program does not replace the role of the PCP. - Discussed with patient progression nature of parkinson's disease, he is aware of this. He feels recent decline in function/mobility was due to weakness from malnutrition because he had not been eating well at home for a while (may have been related to gastritis and esophagitis found on EGD) and worsened by prolonged hospital stay, he states he is doing better since parkinson's meds adjusted and regaining strength now from 2 rehab stays. Has progressed from diet of soft bite sized to regular foods now, his goal is to wean off tube feedings and resume an oral diet. He wants to continue to receive aggressive medical care at this time. Code status: Full code Will continue goals of care conversations as needed for any major declines. Surrogate Decision Maker: Logan Avila Existence of Advance Directives: Unknown Next Visit: 6-8 Weeks via virtual visit or in person Palliative Medicine Nurse to do telephonic follow-up: No Electronics Technician Apprentice Services: None at this time Referral to Small Craft Operator: No, not at this time Recommendations will be communicated back to the consulting service by way of shared electronic medical record. I spent a total of 55 minutes on the date of the service which included preparing to see the patient, [id number] patient care, completing clinical documentation, obtaining and/or reviewing separately obtained history, performing a medically appropriate examination, and counseling and educating the patient/family/caregiver. Michaela Mancini APRN.CNP March 21, 2023 6:34 PM This note may have been partially generated using the [employer] voice recognition system. While every effort was made to correct voice recognition errors, kindly be aware that some errors may occasionally occur. documented in this encounter [facility] 03-21-2023 History of Present illness Narrative Apt cancelled - note opened in error documented in this encounter [facility] 03-12-2023 Note [facility] Medical Records Department [address] [place] [id number] Discharge Summary 03/12/231923 MR#: [id number] Acct: [id number] Name: KATHARINE LARSEN Rep #: [id number] : 1950 72 From: Freddy Swann MD PCP: Dr. Nico Schmidt MD Status:ADM IN Location: [facility]CU-1 Providers Date of Admission: 02/27/23 Primary Care Physician: Dr. Nico Schmidt MD Reason For Visit: DEBILITY Diagnosis Discharge Diagnosis (1) Debility: Status: Acute Code(s): R53.81 - Other malaise (2) Failure to thrive: Status: Acute (3) Parkinson disease: Status: Acute Code(s): G20 - Parkinson's disease Qualifiers: Dyskinesia presence: with dyskinesia Fluctuating manifestations: unspecified whether manifestations fluctuate Qualified Code(s): G20.B1 - Parkinson's disease with dyskinesia, without mention of fluctuations (4) Overactive bladder: Status: Acute Code(s): N32.81 - Overactive bladder (5) HTN (hypertension): Status: Chronic Code(s): I10 - Essential (primary) hypertension Qualifiers: Hypertension type: essential hypertension Qualified Code(s): I10 - Essential (primary) hypertension (6) GERD (gastroesophageal reflux disease): Status: Acute Code(s): K21.9 - Gastro-esophageal reflux disease without esophagitis Plan 72 year old male with stage 5 Parkinson Disease, admitted to TCU with debility, failure to thrive, here for rehabilitation, strengthening, prior to disposition determination. * Debility - PT/OT. * Dysphagia - ST. * Pain - Tylenol 650mg q6 prn pain (1-10). * Bowel - Miralax 17gm daily, senna/colace 1 tablet bid. * Adult immunization - Administer pneumonia vaccine, covid vaccine, flu vaccine as appropriate. * DVT prophylaxis - Hold. * Parkinson Disease - Amantadine 100mg daily, Azilect 1mg daily, Sinemet 25/100mg 2 tablets tidac, 1.5 tablet qhs. * Muscle spasm - Baclofen 5mg bid. * Hypertension - Hydralazine 10mg tid prn. * Nutrition - Jevity 1.5 350ml tidpc, 350ml 2000. * GERD - Pantoprazole 40mg bid. * Overactive bladder - Tolterodine 4mg daily, Gemtasa 75mg daily. Medications at Discharge Home Medications amantadine HCl 100 mg capsule 100 mg PO DAILY PD 11/16/20 rasagiline 1 mg tablet 1 mg PO DAILY PARKINSONS 11/16/20 hydralazine 10 mg tablet 10 mg PO TID PRN systolic bp greater than 190 01/14/23 mirabegron 50 mg tablet,extended release 24 hr (Myrbetriq) 50 mg PO DAILY@1400 OAB 01/14/23 pantoprazole 40 mg tablet,delayed release (Protonix) 40 mg PO BID@0600,1600 gerd 01/14/23 polyethylene glycol 3350 17 gram/dose oral powder (Miralax) 17 g PO DAILY constipation 01/14/23 sennosides 8.6 mg-docusate sodium 50 mg tablet (Senna-Time S) 1 tab-cap PO BID constipation 01/14/23 solifenacin 10 mg tablet 10 mg PO DAILY OAB 01/14/23 carbidopa 25 mg-levodopa 100 mg tablet 2 tab feeding tube TID Parkinson 02/27/23 baclofen 10 mg tablet 5 mg (1/2 x 10 mg) G-tube 4X/DAY 30 days #60 tabs 03/12/23 carbidopa 25 mg-levodopa 100 mg tablet 1.5 tab G-tube QHS #0 tabs 03/12/23 lactose-reduced food with fiber 0.06 gram-1.5 kcal/mL oral liquid (Jevity 1.5 Kelli) 350 ml G-tube 2200 #0 mL 03/12/23 lactose-reduced food with fiber 0.06 gram-1.5 kcal/mL oral liquid (Jevity 1.5 Kelli) 350 ml G-tube TIDPC #0 mL 03/12/23 Hospital Course Operations None Procedures None Summary of Care Provided Minutes Spent on Discharge: 35 Hospital Course: 72 year old male with stage 5 Parkinson Disease, admitted to TCU with debility, failure to thrive, here for rehabilitation, strengthening, prior to disposition determination. 03/11/2023 FRANK doppler of legs NORMAL. 03/11/2023 FEES Recommendations: Recommended Diet Grade Liquid Drinks/Liquids:: Thin Foods:: Minced Moist Resident knows risk of aspiration, , requested regular diet. Discharge home with and grandsons 03/19/2023, [facility] PT/OT/SN/SW. Physical Exam Const alert General Appearance: cooperative HEENT normocephalic Eyes PERRL and EOMs intact bilaterally Neck supple, no JVD and no carotid bruits Resp normal respiratory effort, normal air movement and clear to auscultation bilaterally Cardio regular rate and regular rhythm GI normal to inspection, nondistended, normoactive bowel sounds, non-tender and non-distended GI Narrative: PEG. Extremity normal capillary refill General Extremity: Negative for edema Skin no rashes or lesions noted General Skin Exam: no breakdown Psych affect normal Appearance: appropriate Medical Records Data Medical Nutrition Assessment Dietitian: Malnutrition Criteria Met Start: 02/27/23 16:02 Freq: Status: Active Protocol: Document 03/05/23 12:28 SLA (Rec: 03/05/23 12:28 SLA Desktop) Nutrition Malnutrition Evidence of Malnutrition Exists Yes Malnutrition (severe): Chronic Evidenced By Suboptimal Energy Intake ( Severe),Weight Loss (Severe), P (more content not included)... [facility] 02-27-2023 Note [facility] Medical Records Department [address] [place] [address] History Physical Exam 02/27/231927 MR#: [id number] Acct: [id number] Name: KATHARINE LARSEN Rep #: [id number] : 1950 72 From: Freddy Swann MD PCP: Dr. Nico Schmidt MD Status:ADM IN Location: [address] - General General Date of Admission: 02/27/23 Date of Service: 02/27/23 Chief Complaint: Here for rehabilitation. HPI Narrative KATHARINE LARSEN, is a 72 Male who presents with followin01/09/2023 - 02/01/2023 admitted to [facility] for inpatient rehabilitation. Patient discharged home but unable to care for him. Patient is dying of end stage Parkinson Disease, but both he and his are in denial, and unable to accept his terminal condition. I told him again Parkinson Disease is a progressive neurodegenerative disorder with no cure. Afterwards, Katharine told me his goal to get stronger so he can go home with his . [facility] Medical History BPH (benign prostatic hyperplasia) Cellulitis Cellulitis Closed dislocation finger, proximal interphalangeal joint, traumatic Closed traumatic nondisplaced fracture of four ribs of right side Difficulty balancing when standing DMII (diabetes mellitus, type 2) History of Parkinson's disease HLD (hyperlipidemia) HTN (hypertension) Parkinson disease Parkinson's disease Home Medications amantadine HCl 100 mg capsule 100 mg PO DAILY PD 11/16/20 [History Last Taken 07/23/22] rasagiline 1 mg tablet 1 mg PO DAILY PARKINSONS 11/16/20 [History Last Taken 02/27/23] acetaminophen 325 mg tablet 650 mg PO Q4H PRN pain 01/14/23 [History Last Taken Unknown] hydralazine 10 mg tablet 10 mg PO TID PRN systolic bp greater than 190 01/14/23 [History Last Taken Unknown] mirabegron 50 mg tablet,extended release 24 hr (Myrbetriq) 50 mg PO DAILY@1400 OAB 01/14/23 [History Last Taken Unknown] pantoprazole 40 mg tablet,delayed release (Protonix) 40 mg PO BID@0600,1600 gerd 01/14/23 [History Last Taken Unknown] polyethylene glycol 3350 17 gram/dose oral powder (Miralax) 17 g PO DAILY constipation 01/14/23 [History Last Taken Unknown] sennosides 8.6 mg-docusate sodium 50 mg tablet (Senna-Time S) 1 tab-cap PO BID constipation 01/14/23 [History Last Taken Unknown] solifenacin 10 mg tablet 10 mg PO DAILY OAB 01/14/23 [History Last Taken 02/27/23] carbidopa ER 36.25 mg-levodopa 145 mg capsule,extended release (Rytary) 1 cap PO QHS parkinsons 01/27/23 [History Last Taken 02/03/23] carbidopa ER 36.25 mg-levodopa 145 mg capsule,extended release (Rytary) 3 cap PO DAILY@0800 parkinsons 01/27/23 [History Last Taken 02/03/23] carbidopa ER 36.25 mg-levodopa 145 mg capsule,extended release (Rytary) 4 cap PO 1200,1700 parkinsons 01/27/23 [History Last Taken 02/03/23] baclofen 10 mg tablet 5 mg (1/2 x 10 mg) G-tube BID Muscle spasms #60 tabs 01/30/23 [Rx Last Taken Unknown] lactose-reduced food with fiber 0.06 gram-1.5 kcal/mL oral liquid (Jevity 1.5 Kelli) 200 ml G-tube DAILY@0600 supplement #6,000 mL 01/30/23 [Rx Last Taken Unknown] lactose-reduced food with fiber 0.06 gram-1.5 kcal/mL oral liquid (Jevity 1.5 Kelli) 300 ml G-tube HS Supplement #9,000 mL 01/30/23 [Rx Last Taken Unknown] lactose-reduced food with fiber 0.06 gram-1.5 kcal/mL oral liquid (Jevity 1.5 Kelli) 300 ml G-tube TIDPC Supplement #36,000 mL 01/30/23 [Rx Last Taken 02/27/23] carbidopa 25 mg-levodopa 100 mg tablet 2 tab feeding tube TID Parkinson 02/27/23 [History Last Taken 02/27/23] Allergy/AdvReac Type Severity Reaction Status Date / Time Penicillins [PCN] Allergy Unknown Verified 12/25/22 13:42 Family History Father Diabetes Hypertension Hyperlipidemia TIA (transient ischemic attack) Mother Hypertension Thyroid disorder Social History household members: spouse current occupational status: retired 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 Smoking Status: Never smoker alcohol intake: never substance use type: does not use and former substance user Date of last use: 1974 Constitutional Constitutional: Denies chills, fever(s) or weight gain ENT HEENT: Denies headache(s), nasal congestion or nasal discharge Cardiovascular Cardiovascular: Denies chest pain or palpitations Respiratory/Chest Respiratory/Chest: Denies cough, excessive phlegm production or shortness of breath with exertion Gastrointestinal Gastrointestinal: Denies abdominal pain, nausea or vomiting Genitourinary Genitourinary: Denies dysuria Musculoskeletal Musculoskeletal: Denies joint pain or joint swelling Integumentary Integumentary: Denies rash or wounds Neurologic Neurologic: Denies focal weakness, numbness or tingling Psychiatric Psychiatric: D (more content not included)... [facility] 02-21-2023 History of Present illness Narrative PALLIATIVE MEDICINE AT HOME INITIAL CONSULT SERVICE DATE: 02/21/2023 Patient did not show for virtual appointment. Scheduling notified. Michaela Mancini CNP documented in this encounter [facility] 01-31-2023 Discharge summary Note Date/Time January 31, 2023 9:12am [facility] Medical Records Department [address] [facility] [place] [address] Discharge Summary 01/31/23 0911 MR#: [id number] Acct: [id number] Name: KATHARINE LARSEN Rep #:[id number] : 1950 72 From: Nicolasa Willingham MD PCP: Dr. Nico Schmidt MD Status:ADM I N Location: [place] [address] Providers Date of Admission: 01/14/23 Date of Discharge: 02/01/23 Primary Care Physician: Dr. Nico Schmidt MD Consultations 01/14/23 22:51 Consult: Onc/Wound/director specialty Routine Comment: Reason for Consult:: unstageable pressure areas to feet Reason For Visit: PARKINSONS Diagnosis Discharge Diagnosis (1) Debility: Status: Acute Code(s): R53.81 - Other malaise Plan: Will continue with PT/OT and follow up on findings and recommendations. D/C planned for 02/01 with [facility] and family care. Continue with PRN pain management, bowel regimen and fall precautions. Family training completed. (2) Parkinson disease: Status: Acute Code(s): G20 - Parkinson's disease Qualifiers: Dyskinesia presence: with dyskinesia Fluctuating manifestations: unspecified whether manifestations fluctuate Qualified Code(s): G20.B1 - Parkinson's disease with dyskinesia, without mention of fluctuations Plan: As above. Will continue home medications. Will continue baclofen to help with muscle spasms and contractility. Patient denies any pain. (3) Oropharyngeal dysphagia: Status: Acute Code(s): R13.12 - Dysphagia, oropharyngeal phase Plan: PEG tube in place. Speech therapy following. His diet was advanced to small and bite sized just prior to discharge, requiring 1:1 supervision. Will continuewith isosource 1.5 [id number]. Will also continue with H20 50cc before and after feeds. Family training included PEG tube care and management. (4) S/P percutaneous endoscopic gastrostomy (PEG) tube placement: Status: Acute Code(s): Z93.1 - Gastrostomy status Plan: As above. Patient is currently tolerating tube feeds well. He will need to follow up with GI upon discharge from inpatient rehab. (5) Muscle spasm: Status: Acute Code(s): M62.838 - Other muscle spasm Plan: As above. Continue with baclofen. Will continue to monitor and adjust as needed. (6) Severe protein-calorie malnutrition: Status: Acute Code(s): E43 - Unspecified severe protein-calorie malnutrition Plan: As above. He has gained about 6 pounds since his admission. (7) Esophagitis: Status: Acute Code(s): K20.90 - Esophagitis, unspecified without bleeding Plan: Will continue protonix 40mg BID (8) Overactive bladder: Status: Acute Code(s): N32.81 - Overactive bladder Plan: Continue home medications including myrbetriq and solifenacin. (9) HTN (hypertension): Status: Chronic Code(s): I10 - Essential (primary) hypertension Qualifiers: Hypertension type: essential hypertension Qualified Code(s): I10 - Essential (primary) hypertension Plan: Blood pressure has been borderline during his admission. Patient hasn't been onmedications at home. Will continue with home monitoring. (10) BPH (benign prostatic hyperplasia): Status: Chronic Code(s): N40.0 - Benign prostatic hyperplasia without lower urinary tract symptoms Qualifiers: Lower urinary tract symptom presence: symptoms absent Qualified Code(s): N40.0 - Benign prostatic hyperplasia without lower urinary tract symptoms Plan: Stable. No current symptoms. (11) DMII (diabetes mellitus, type 2): Status: Chronic Code(s): E11.9 - Type 2 diabetes mellitus without complications Qualifiers: Diabetes mellitus complication status: without complication Diabetes mellitus lobsterman insulin use: without senior care use Qualified Code(s): E11.9 - Type 2 diabetes mellitus without complications Plan: Patient hasn't been on diabetic medications since his weight loss. Will continue with glucose checks and add SSI as needed. Last A1c was out of diabetic range at 5.6. Glucose was 116 this morning. Medications at Discharge Home Medications amantadine HCl 100 mg capsule 100 mg PO DAILY PD 11/16/20 rasagiline 1 mg tablet 1 mg PO DAILY PARKINSONS 11/16/20 acetaminophen 325 mg tablet 650 mg PO Q4H PRN pain 01/14/23 hydralazine 10 mg tablet 10 mg PO TID PRN systolic bp greater than 190 01/14/23 miconazole nitrate 2 % topical powder (Antifungal (miconazole)) 1 applic topicalBID back rash 01/14/23 mirabegron 50 mg tablet,extended release 24 hr (Myrbetriq) 50 mg PO DAILY@1400 OAB 01/14/23 pantoprazole 40 mg tablet,delayed release (Protonix) 40 mg PO BID@0600,1600 gerd01/14/23 polyethylene glycol 3350 17 gram/dose oral powder (Miralax) 17 g PO DAILY constipation 01/14/23 sennosides 8.6 mg-docusate sodium 50 mg tablet (Senna-Time S) 1 tab-cap PO BID constipation 01/14/23 solifenacin 10 mg tablet 10 mg PO DAILY OAB 01/14/23 carbidopa ER 36.25 mg-levodopa 145 mg capsule,extended release (Rytary) 1 cap POQHS parkinsons 01/27/23 carbidopa ER 36.25 mg-levodopa 145 mg capsule,extended release (Rytary) 3 cap PODAILY@0800 parkinsons 01/27/23 carbidopa ER 36.25 mg-levodopa 145 mg capsule,extended release (Rytary) 4 cap [id number],1700 parkinsons 01/27/23 baclofen 10 mg tablet 5 mg (1/2 x 10 mg) G-tube BID #60 tabs 01/30/23 lactose-reduced food with fiber 0.06 gram-1.5 kcal/mL oral liquid (Jevity 1.5 Kelli) 200 ml G-tube DAILY@0600 #6,000 mL 01/30/23 lactose-reduced food with fiber 0.06 gram-1.5 kcal/mL oral liquid (Jevity 1.5 Kelli) 300 ml G-tube HS #9,000 mL 01/30/23 lactose-reduced food with fiber 0.06 gram-1.5 kcal/mL oral liquid (Jevity 1.5 Kelli) 300 ml G-tube TIDPC #36,000 mL 01/30/23 Hospital Course Summary of Care Provided Hospital Course: Patient came as a transfer from [facility] for therapy purposes. He initially presented to [facility] on 12/25 with complaints of weakness and dysphagia which had been progressively worsening for a week prior. During his admission, his Parkinson medications were adjusted. He underwent an EGD for his dysphagia which showed esophagitis and gastritis and was started on PPI therapy. He continued to have problems with dysphagia and, on 01/01, underwent a PEG tube placement and was later started on tube feeds. The patient clinically improved. Therapy saw the patient who felt he would benefit from rehab. Once stable, he was transferred to [facility] inpatient rehab. While at rehab, the patient worked well with therapy with slow improvements. Hewas found to have a UTI and completed treatment for that. With family assistance, it was felt he could go home with [facility]. Family training was completed prior to his discharge. Today, the patient reports he is feeling well. He slept well last night and is anxious to get home. He has no pain, is moving his bowels and still tolerating his tube feeds. He believes family training went well and has no concerns or questions prior to going home. Physical Exam Const alert, oriented x3 and no apparent distress Constitutional Narrative: Emaciated, Sitting up in the wheelchair, working with therapy General Appearance: cooperative; Negative for in distress, ill appearing or diaphoretic Orientation / Consciousness: awake, oriented to person, oriented to place and oriented to time Exam Limitations: Negative for altered mental status HEENT normocephalic, head/scalp atraumatic and dentition normal Head and Scalp: normocephalic and atraumatic Face and Sinus: normal facial exam Eyes General Eye: normal appearance of both eyes Chest inspection of chest normal Chest: symmetrical chest wall rise Resp normal respiratory effort, normal air movement, no use of accessory muscles and clear to auscultation bilaterally Effort and Inspection: able to speak in complete sentences and symmetric chest movement; Negative for respiratory distress or audible wheezes Auscultation: clear to auscultation bilaterally Cardio regular rate, regular rhythm and no murmurs Cardio Narrative: Distant heart sounds Rate: regular rate Rhythm: regular rhythm Heart Sounds: Negative for murmur GI normal to inspection, nondistended, normoactive bowel sounds, soft to palpation,non-tender and non-distended GI Narrative: Peg tube in place. Auscultation: normoactive bowel sounds Palpation: soft; Negative for tender or guarding Extremity normal to inspection General Extremity: Negative for edema Skin no rashes or lesions noted Lesions: no lesions Rashes: no rashes Neuro oriented x3 Sensorium / Orientation: awake, alert, oriented to person, oriented to place andoriented to time Speech: speech normal Psych mental status grossly normal, cooperative, affect normal and speech normal Appearance: grossly normal Attitude: calm Medical Records Data Attestation: I reviewed the patient's medical records Medical Nutrition Assessment Dietitian: Malnutrition Criteria Met Start: 01/15/23 13:17 Freq: Status: Active Protocol: Document 01/22/23 15:20 LULI (Rec: 01/22/23 15:20 [id number]) Nutrition Malnutrition Evidence of Malnutrition Exists Yes Malnutrition (severe): Chronic Evidenced By Suboptimal Energy Intake ( Severe),Weight Loss (Severe), Physical Changes (Severe) Clinical Problem Chronic Disease or Condition Related Malnutrition Etiology severe, chronic malnutrition related to inadequate energy intake d/t dysphagia Signs/Symptoms as evidenced by estimated PO intake meeting <75% of estimated energy needs > 3 months, unintentional 18% wt loss x 6 months, Severe muscle wasting/fat loss evident per physical exam in orbital, clavicle, acromion, and temporal areas, BMI 17.6 Status Active Problem Recommendation Dietitian Recommendations/Changes 1. Regular diet- texture/ consistency (purees/thins) per [employer]ACH[employer]SE; anticipate PO diet to be mostly for pleasure, so 100% of estimated energy needs to be met via enteral nutrition. 2. Will continue via PEG- Jevity 1.5 300mL 4x/day w/ 100mL H2O flush before and after each bolus to provide 1800 calories, 76.56 g protein , and 1712mL fluid/day. Noted pt on Sinemet which must be given 30 minutes before meals or 1 hour after meals. Will order Jevity boluses after meal times and at HS. 3. Will add Jevity 1.5 200mL bolus feed at 0600 with 100mL flush before and after each bolus to help with satiety. 3. Daily wts. 4. Will monitor wound assessments and add Romain BID via PEG as indicated. Weight / BMI Weight Weight: 117 lb 11.629 oz Body Mass Index (BMI) 18.4 ABG / Lab / Microbiology Data Attestation: I reviewed the patient's lab results. 01/28/23 05:09 01/28/23 05:09 Laboratory: Laboratory Results - last 24 hr 01/30/23 11:43: POC Glucose 126 H 01/30/23 17:27: POC Glucose 102 01/30/23 22:25: POC Glucose 126 H 01/31/23 06:38: POC Glucose 116 H Microbiology: Microbiology 01/15/23 17:25 Blood Culture (Wb) - Anticubital Right Blood Culture - Final No growth in 5 days. 01/15/23 17:30 Blood Culture (Wb) - Left Wrist Blood Culture - Final No growth in 5 days. 01/15/23 17:15 Urine Catheter - Vincent Urine Culture - Final Staphylococcus aureus Indicators for Scoring Admitted with or Primary Diagnosis of CVA/Stroke: No Hx of CVA/Stroke: No Modified Shameka Score MRS Score at time of Evaluation: 5-Severe disability D/C Instructions Discharge Diet: - (Liquids with a straw, soups in a cup, Small bite sized pieceswith 1:1 supervision) Discharge Activity: - (Per therapy recommendations) Weight Bearing Status: Weight bearing as tolerated Call your doctor if you observe: Fever of 101 or Higher, Numbness or Tingling, Inability to urinate, Inability to have a bowel movement, Shortness of breath, Dizziness, Fainting spells, Chest pain, Calf discomfort and Uncontrolled pain Please Follow Up With: Nico Schmidt MD When: 1-2 weeks Meaningful Use Info Meaningful Use Diagnoses (Choose all that apply): None applicable Discharge Plan Admission Admit Date/Time: 01/14/23 22:10 Primary Reason for Your Visit: Debility - Parkinson's disease Attending Provider: Jakob Villeda Primary Care Provider: Nico Schmidt Discharge Orders/Prescriptions Prescriptions: New baclofen 10 mg Tablet 5 mg G-tube BID Qty: 60 0RF Jevity 1.5 Kelli 0.06 gram-1.5 kcal/mL Liquid 200 ml G-tube DAILY@0600 Qty: 6000 0RF Jevity 1.5 Kelli 0.06 gram-1.5 kcal/mL Liquid 300 ml G-tube TIDPC Qty: 19743 0RF Jevity 1.5 Kelli 0.06 gram-1.5 kcal/mL Liquid 300 ml G-tube HS Qty: 9000 0RF Continued amantadine HCl 100 mg capsule 100 mg PO DAILY Patient Comments: rasagiline 1 mg tablet 1 mg PO DAILY Patient Comments: Myrbetriq 50 mg tablet extended release 24 hr 50 mg PO DAILY@1400 Patient Comments: TAKE 1 TABLET BY MOUTH EVERY DAY solifenacin 10 mg tablet 10 mg PO DAILY Patient Comments: TAKE 1 TABLET BY MOUTH EVERY DAY acetaminophen 325 mg tablet 650 mg PO Q4H PRN (Reason: pain) hydralazine 10 mg tablet 10 mg PO TID PRN (Reason: systolic bp greater than 190) Rx Instructions: until target blood pressure attained miconazole nitrate [Antifungal (miconazole)] 2 % powder 1 applic topical BID pantoprazole [Protonix] 40 mg tablet,delayed release (DR/EC) 40 mg PO BID@0600,1600 polyethylene glycol 3350 [Miralax] 17 gram/dose powder 17 g PO DAILY sennosides-docusate sodium [Senna-Time S] 8.6-50 mg tablet 1 tab-cap PO BID Rytary 36.25-145 mg capsule, extended release 3 cap PO DAILY@0800 Rytary 36.25-145 mg capsule, extended release 4 cap PO 1200,1700 Rytary 36.25-145 mg capsule, extended release 1 cap PO QHS Discontinued Myrbetriq 50 mg PO DAILY@1400 Referrals / Follow Up: Juan R Brice [Other] - 04/08/23 9:00 am (Neurologist- Will be w/ Taisha John) Nico Schmidt MD [Primary Care Provider] - 02/06/23 11:40 am (Scheduled w/ pocket secretary assembler Marcia) Disposition Disposition (needs filled in before D/C Order can be placed): Home Health Service Charges/Coding Visit Charges Inpatient E&M: 71198 Disch Hosp >30min 01/31/23 0935 <Electronically signed by Nicolasa Willingham MD> Cosigner Signature (if applicable): CC: Dr. Nicolasa Willingham MD; Dr. Nico Schmidt MD~ Signed [facility] Work Phone: [phone] 878-878112-15-2023 [facility] Medical Records Department [address] [place] [id number] Discharge Summary 01/31/23 0911 MR#: [id number] Acct: [id number] Name: KATHARINE LARSEN Rep #: [id number] : 1950 72 From: Nicolasa Willingham MD PCP: Dr. Nico Schmidt MD Status:ADM IN Location: [place] [address] Providers Date of Admission: 01/14/23 Date of Discharge: 02/01/23 Primary Care Physician: Dr. Nico Schmidt MD Consultations 01/14/23 22:51 Consult: Onc/Wound/director specialty Routine Comment: Reason for Consult:: unstageable pressure areas to feet Reason For Visit: PARKINSONS Diagnosis Discharge Diagnosis (1) Debility: Status: Acute Code(s): R53.81 - Other malaise Plan: Will continue with PT/OT and follow up on findings and recommendations. D/C planned for 02/01 with [facility] and family care. Continue with PRN pain management, bowel regimen and fall precautions. Family training completed. (2) Parkinson disease: Status: Acute Code(s): G20 - Parkinson's disease Qualifiers: Dyskinesia presence: with dyskinesia Fluctuating manifestations: unspecified whether manifestations fluctuate Qualified Code(s): G20.B1 - Parkinson's disease with dyskinesia, without mention of fluctuations Plan: As above. Will continue home medications. Will continue baclofen to help with muscle spasms and contractility. Patient denies any pain. (3) Oropharyngeal dysphagia: Status: Acute Code(s): R13.12 - Dysphagia, oropharyngeal phase Plan: PEG tube in place. Speech therapy following. His diet was advanced to small and bite sized just prior to discharge, requiring 1:1 supervision. Will continue with isosource 1.5 [id number]. Will also continue with H20 50cc before and after feeds. Family training included PEG tube care and management. (4) S/P percutaneous endoscopic gastrostomy (PEG) tube placement: Status: Acute Code(s): Z93.1 - Gastrostomy status Plan: As above. Patient is currently tolerating tube feeds well. He will need to follow up with GI upon discharge from inpatient rehab. (5) Muscle spasm: Status: Acute Code(s): M62.838 - Other muscle spasm Plan: As above. Continue with baclofen. Will continue to monitor and adjust as needed. (6) Severe protein-calorie malnutrition: Status: Acute Code(s): E43 - Unspecified severe protein-calorie malnutrition Plan: As above. He has gained about 6 pounds since his admission. (7) Esophagitis: Status: Acute Code(s): K20.90 - Esophagitis, unspecified without bleeding Plan: Will continue protonix 40mg BID (8) Overactive bladder: Status: Acute Code(s): N32.81 - Overactive bladder Plan: Continue home medications including myrbetriq and solifenacin. (9) HTN (hypertension): Status: Chronic Code(s): I10 - Essential (primary) hypertension Qualifiers: Hypertension type: essential hypertension Qualified Code(s): I10 - Essential (primary) hypertension Plan: Blood pressure has been borderline during his admission. Patient hasn't been on medications at home. Will continue with home monitoring. (10) BPH (benign prostatic hyperplasia): Status: Chronic Code(s): N40.0 - Benign prostatic hyperplasia without lower urinary tract symptoms Qualifiers: Lower urinary tract symptom presence: symptoms absent Qualified Code(s): N40.0 - Benign prostatic hyperplasia without lower urinary tract symptoms Plan: Stable. No current symptoms. (11) DMII (diabetes mellitus, type 2): Status: Chronic Code(s): E11.9 - Type 2 diabetes mellitus without complications Qualifiers: Diabetes mellitus complication status: without complication Diabetes mellitus lobsterman insulin use: without senior care use Qualified Code(s): E11.9 - Type 2 diabetes mellitus without complications Plan: Patient hasn't been on diabetic medications since his weight loss. Will continue with glucose checks and add SSI as needed. Last A1c was out of diabetic range at 5.6. Glucose was 116 this morning. Medications at Discharge Home Medications amantadine HCl 100 mg capsule 100 mg PO DAILY PD 11/16/20 rasagiline 1 mg tablet 1 mg PO DAILY PARKINSONS 11/16/20 acetaminophen 325 mg tablet 650 mg PO Q4H PRN pain 01/14/23 hydralazine 10 mg tablet 10 mg PO TID PRN systolic bp greater than 190 01/14/23 miconazole nitrate 2 % topical powder (Antifungal (miconazole)) 1 applic topical BID back rash 01/14/23 mirabegron 50 mg tablet,extended release 24 hr (Myrbetriq) 50 mg PO DAILY@1400 OAB 01/14/23 pantoprazole 40 mg tablet,delayed release (Protonix) 40 mg PO BID@0600,1600 gerd 01/14/23 polyethylene glycol 3350 17 gram/dose oral powder (Miralax) 17 g PO DAILY constipation 01/14/23 sennosides 8.6 mg-docusate sodium 50 mg tablet (Senna-Time S) 1 tab-cap PO BID constipation 01/14/23 solifenacin 10 mg tablet 10 mg PO DAILY OAB 01/14/23 carbidopa ER 36.25 mg-levodopa 145 mg capsule,extended rele (more content not included)...[facility]12-13-2023 Progress note Author Nicolasa Willingham [facility] January 29, 2023 9:15am Note Date/Time January 29, 2023 8:37am [facility] Medical Records Department [address] [place] [address] Progress Note - Rehab 01/29/23 0835 MR#: [id number] Acct: [id number] Name: KATHARINE LARSEN Rep #:[id number] : 1950 72 From: Nicolasa Willingham MD PCP: Dr. Nico Schmidt MD Status:ADM I N Location: [place] [address] Subjective Subjective Patient was admitted for daily rehab following a hospital stay for progressive weakness in the setting of Parkinson's disease, dysphagia and esophagitis. No events overnight, although he reports he didn't sleep very well. He has his family training is scheduled for later today. Plan for discharge home with [facility] and family assistance on 02/01. The patient reports that he is doing well. He denies any pain currently. He is being maintained on a thin liquid/pureed diet and his tube feeds. He states he is tolerating his tube feeds without difficulty. He is moving his bowels. He has no questions or concerns at this time. Objective Data Objective Data Vital Signs: Vital Signs Temp Pulse Resp BP Pulse Ox O2 Del Method O2 Flow Rate 97.8 F 73 17 142/79 H 99 Room Air 1 01/29/23 07:16 01/29/23 07:16 01/29/23 07:16 01/29/23 07:16 01/29/23 07:16 01/29/23 07:16 01/15/23 22:21 Oxygen Flow Rate (L/min) 1 Oxygen Delivery Method Room Air Weight: 121 lb 0.54 oz Body Mass Index (BMI) 18.9 Intake & Output: Intake and Output for Last 24 Hours 01/27/23 01/28/23 01/29/23 23:59 23:59 23:59 Intake Total 960 / 1060 1525 / 1525 400 / 400 Balance 960 / 1060 1525 / 1525 400 / 400 Medical Nutrition Assessment Dietitian: Malnutrition Criteria Met Start: 01/15/23 13:17 Freq: Status: Active Protocol: Document 01/22/23 15:20 LO (Rec: 01/22/23 15:20 LO [id number]) Nutrition Malnutrition Evidence of Malnutrition Exists Yes Malnutrition (severe): Chronic Evidenced By Suboptimal Energy Intake ( Severe),Weight Loss (Severe), Physical Changes (Severe) Clinical Problem Chronic Disease or Condition Related Malnutrition Etiology severe, chronic malnutrition related to inadequate energy intake d/t dysphagia Signs/Symptoms as evidenced by estimated PO intake meeting <75% of estimated energy needs > 3 months, unintentional 18% wt loss x 6 months, Severe muscle wasting/fat loss evident per physical exam in orbital, clavicle, acromion, and temporal areas, BMI 17.6 Status Active Problem Recommendation Dietitian Recommendations/Changes 1. Regular diet- texture/ consistency (purees/thins) per [employer]; anticipate PO diet to be mostly for pleasure, so 100% of estimated energy needs to be met via enteral nutrition. 2. Will continue via PEG- Jevity 1.5 300mL 4x/day w/ 100mL H2O flush before and after each bolus to provide 1800 calories, 76.56 g protein , and 1712mL fluid/day. Noted pt on Sinemet which must be given 30 minutes before meals or 1 hour after meals. Will order Jevity boluses after meal times and at HS. 3. Will add Jevity 1.5 200mL bolus feed at 0600 with 100mL flush before and after each bolus to help with satiety. 3. Daily wts. 4. Will monitor wound assessments and add Romain BID via PEG as indicated. Lab / Micro Data Attestation: I reviewed the patient's lab results. 01/28/23 05:09 01/28/23 05:09 Labs: Laboratory Results - last 24 hr 01/28/23 11:44: POC Glucose 128 H 01/28/23 16:34: POC Glucose 143 H 01/29/23 06:24: POC Glucose 85 Micro: Microbiology 01/15/23 17:25 Blood Culture (Wb) - Anticubital Right Blood Culture - Final No growth in 5 days. 01/15/23 17:30 Blood Culture (Wb) - Left Wrist Blood Culture - Final No growth in 5 days. 01/15/23 17:15 Urine Catheter - Vincent Urine Culture - Final Staphylococcus aureus Indicators for Scoring Admitted with or Primary Diagnosis of CVA/Stroke: No Hx of CVA/Stroke: No Modified Houston Score MRS Score at time of Evaluation: 5-Severe disability Physical Exam Const alert, oriented x3 and no apparent distress Constitutional Narrative: Emaciated, Laying in bed, working with therapy General Appearance: cooperative; Negative for in distress, ill appearing or diaphoretic Orientation / Consciousness: awake, oriented to person, oriented to place and oriented to time Exam Limitations: Negative for altered mental status HEENT normocephalic, head/scalp atraumatic and dentition normal Head and Scalp: normocephalic and atraumatic Face and Sinus: normal facial exam Eyes General Eye: normal appearance of both eyes Chest inspection of chest normal Chest: symmetrical chest wall rise Resp normal respiratory effort, normal air movement, no use of accessory muscles and clear to auscultation bilaterally Resp Narrative: Anterior auscultation Effort and Inspection: able to speak in complete sentences and symmetric chest movement; Negative for respiratory distress or audible wheezes Auscultation: clear to auscultation bilaterally Cardio regular rate, regular rhythm and no murmurs Cardio Narrative: Distant heart sounds Rate: regular rate Rhythm: regular rhythm Heart Sounds: Negative for murmur GI normal to inspection, nondistended, normoactive bowel sounds, soft to palpation,non-tender and non-distended GI Narrative: Peg tube in place. Very mild surrounding irritation without erythema or warmth,unchanged. Auscultation: normoactive bowel sounds Palpation: soft; Negative for tender or guarding Extremity normal to inspection General Extremity: Negative for edema Skin no rashes or lesions noted Lesions: no lesions Rashes: no rashes Neuro oriented x3 Sensorium / Orientation: awake, alert, oriented to person, oriented to place andoriented to time Speech: speech normal Psych mental status grossly normal, cooperative, affect normal and speech normal Appearance: grossly normal Attitude: calm Assessment & Plan Assessment/Plan (1) Debility: PLAN: Will continue with PT/OT and follow up on findings and recommendations. D/C planned for 02/01 with [facility] and family care. Continue with PRN pain management, bowel regimen and fall precautions. Family training scheduled for latertoday. (2) Parkinson disease: QUALIFIERS: Dyskinesia presence: with dyskinesia Fluctuating manifestations: unspecified whether manifestations fluctuate Qualified Code(s):G20.B1 - Parkinson's disease with dyskinesia, without mention of fluctuations PLAN: As above. Will continue home medications. Will continue baclofen to helpwith muscle spasms and contractility. Patient denies any pain. (3) Oropharyngeal dysphagia: PLAN: PEG tube in place. Speech therapy following. His diet has been maintained on full thin liquids due to concern of aspiration. Will continue with isosource 1.5 [id number]. Will also continue with H20 50cc before and after feeds. Family training this week will include PEG tube care and management. Skin appears slightly irritated around PEG today without signs of infection. Itis unchanged. Will continue to monitor closely. (4) S/P percutaneous endoscopic gastrostomy (PEG) tube placement: PLAN: As above. Patient is currently tolerating tube feeds well. He will need to follow up with GI upon discharge from inpatient rehab. (5) Muscle spasm: PLAN: As above. Continue with baclofen. Will continue to monitor and adjust asneeded. (6) Severe protein-calorie malnutrition: PLAN: As above. He has gained 9 pounds since his admission. (7) Esophagitis: PLAN: Will continue protonix 40mg BID (8) Overactive bladder: PLAN: Continue home medications including myrbetriq and solifenacin. (9) HTN (hypertension): QUALIFIERS: Hypertension type: essential hypertension Qualified Code(s): I10 - Essential (primary) hypertension PLAN: Blood pressure has been borderline during his admission. Patient hasn't been on medications at home. Will continue with PRN hydralazine and monitor. (10) BPH (benign prostatic hyperplasia): QUALIFIERS: Lower urinary tract symptom presence: symptoms absent Qualified Code(s): N40.0 - Benign prostatic hyperplasia without lower urinary tract symptoms PLAN: Stable. No current symptoms. (11) DMII (diabetes mellitus, type 2): QUALIFIERS: Diabetes mellitus complication status: without complication Diabetes mellitus senior care insulin use: without senior care use Qualified Code(s): E11.9 - Type 2 diabetes mellitus without complications PLAN: Patient hasn't been on diabetic medications since his weight loss. Will continue with glucose checks and add SSI as needed. Last A1c was out of diabetic range at 5.6. Glucose was 85 this morning. Charges/Coding Visit Charges Inpatient E&M: 94274 Subs Hosp L1 01/29/23 0915 <Electronically signed by Nicolasa Willingham MD> Cosigner Signature (if applicable): CC: ~ Signed [facility] Work Phone: 1(461) 795-244212-12-2023 Progress note Author Nicolasa Willingham [facility] January 28, 2023 11:37am Note Date/Time January 28, 2023 11:23am [facility] Medical Records Department [address] [place] [address] [place] [address] Progress Note - Rehab 01/28/23 1120 MR#: [id number] Acct: [id number] Name: KATHARINE LARSEN Rep #:[id number] : 1950 72 From: Nicolasa Willingham MD PCP: Dr. Nico Schmidt MD Status:ADM I N Location: [place] [address] Subjective Subjective Patient was admitted for daily rehab following a hospital stay for progressive weakness in the setting of Parkinson's disease, dysphagia and esophagitis. No events overnight. Family training is scheduled for Friday with a goal of discharge home with [facility] and family assistance on 02/01. The patient reports that he is doing well. He denies any pain currently. He is being maintained blanquita thin liquid/pureed diet and his tube feeds. He is moving his bowels and urinating without difficulty. He has no questions or concerns at this time. Objective Data Objective Data Vital Signs: Vital Signs Temp Pulse Resp BP Pulse Ox O2 Del Method O2 Flow Rate 97.5 F L 72 16 145/80 H 99 Room Air 1 01/28/23 09:27 01/28/23 09:27 01/28/23 09:27 01/28/23 09:27 01/28/23 09:27 01/28/23 09:27 01/15/23 22:21 Oxygen Flow Rate (L/min) 1 Oxygen Delivery Method Room Air Weight: 121 lb 0.54 oz Body Mass Index (BMI) 18.9 Intake & Output: Intake and Output for Last 24 Hours 01/26/23 01/27/23 01/28/23 23:59 23:59 23:59 Intake Total 2960 / 3080 960 / 1060 340 / 340 Balance 2960 / 3080 960 / 1060 340 / 340 Medical Nutrition Assessment Dietitian: Malnutrition Criteria Met Start: 01/15/23 13:17 Freq: Status: Active Protocol: Document 01/22/23 15:20 LO (Rec: 01/22/23 15:20 LO [id number]) Nutrition Malnutrition Evidence of Malnutrition Exists Yes Malnutrition (severe): Chronic Evidenced By Suboptimal Energy Intake ( Severe),Weight Loss (Severe), Physical Changes (Severe) Clinical Problem Chronic Disease or Condition Related Malnutrition Etiology severe, chronic malnutrition related to inadequate energy intake d/t dysphagia Signs/Symptoms as evidenced by estimated PO intake meeting <75% of estimated energy needs > 3 months, unintentional 18% wt loss x 6 months, Severe muscle wasting/fat loss evident per physical exam in orbital, clavicle, acromion, and temporal areas, BMI 17.6 Status Active Problem Recommendation Dietitian Recommendations/Changes 1. Regular diet- texture/ consistency (purees/thins) per [employer]; anticipate PO diet to be mostly for pleasure, so 100% of estimated energy needs to be met via enteral nutrition. 2. Will continue via PEG- Jevity 1.5 300mL 4x/day w/ 100mL H2O flush before and after each bolus to provide 1800 calories, 76.56 g protein , and 1712mL fluid/day. Noted pt on Sinemet which must be given 30 minutes before meals or 1 hour after meals. Will order Jevity boluses after meal times and at HS. 3. Will add Jevity 1.5 200mL bolus feed at 0600 with 100mL flush before and after each bolus to help with satiety. 3. Daily wts. 4. Will monitor wound assessments and add Romain BID via PEG as indicated. Lab / Micro Data Attestation: I reviewed the patient's lab results. 01/28/23 05:09 01/28/23 05:09 Labs: Laboratory Results - last 24 hr 01/27/23 11:17: POC Glucose 84 01/27/23 16:17: POC Glucose 104 01/27/23 22:13: POC Glucose 86 01/28/23 05:09: WBC 8.7, RBC 4.00 L, Hgb 12.0 L, Hct 38.7 L, MCV 96.8 H, MCH 30.0, MCHC 31.0 L, RDW Std Deviation 61.1 H, RDW Coeff of Lexii 17.3 H, Plt Count 341, MPV 11.4, Immature Gran % (Auto) 0.500, Neut % (Auto) 62.3, Lymph % (Auto) 22.7, [place] % (Auto) 11.0 H, Eos % (Auto) 2.5, Baso % (Auto) 1.0, Absolute Neuts (auto) 5.4, Absolute Lymphs (auto) 1.98, Nucleated RBC % 0, Sodium 138, Potassium 4.2, Chloride 103, Carbon Dioxide 31.0, Anion Gap 4 L, BUN 23 H, Creatinine 0.84, Estim Creat Clear Calc 59.91, Est GFR (MDRD) Af Amer 116, Est GFR (MDRD) Non-Af 95, BUN/Creatinine Ratio 27.5 H, Glucose 74, Calcium 8.6, Phosphorus 3.7, Magnesium 2.3, Total Bilirubin 0.40, AST 23, ALT 8 L, Alkaline Phosphatase 87, Total Protein 6.3 L, Albumin 2.6 L, Globulin 3.7, Albumin/Globulin Ratio 0.7 L 01/28/23 05:12: POC Glucose 68 L 01/28/23 05:35: POC Glucose 102 01/28/23 06:20: POC Glucose 127 H Micro: Microbiology 01/15/23 17:25 Blood Culture (Wb) - Anticubital Right Blood Culture - Final No growth in 5 days. 01/15/23 17:30 Blood Culture (Wb) - Left Wrist Blood Culture - Final No growth in 5 days. 01/15/23 17:15 Urine Catheter - Vincent Urine Culture - Final Staphylococcus aureus Indicators for Scoring Admitted with or Primary Diagnosis of CVA/Stroke: No Hx of CVA/Stroke: No Modified Houston Score MRS Score at time of Evaluation: 5-Severe disability Physical Exam Const alert, oriented x3 and no apparent distress Constitutional Narrative: Emaciated, Sitting up in the wheelchair, working with therapy General Appearance: cooperative; Negative for in distress, ill appearing or diaphoretic Orientation / Consciousness: awake, oriented to person, oriented to place and oriented to time Exam Limitations: Negative for altered mental status HEENT normocephalic, head/scalp atraumatic and dentition normal Head and Scalp: normocephalic and atraumatic Face and Sinus: normal facial exam Eyes General Eye: normal appearance of both eyes Chest inspection of chest normal Chest: symmetrical chest wall rise Resp normal respiratory effort, normal air movement, no use of accessory muscles and clear to auscultation bilaterally Effort and Inspection: able to speak in complete sentences and symmetric chest movement; Negative for respiratory distress or audible wheezes Auscultation: clear to auscultation bilaterally Cardio regular rate, regular rhythm and no murmurs Cardio Narrative: Distant heart sounds Rate: regular rate Rhythm: regular rhythm Heart Sounds: Negative for murmur GI normal to inspection, nondistended, normoactive bowel sounds, soft to palpation,non-tender and non-distended GI Narrative: Peg tube in place. Very mild surrounding irritation without erythema or warmth. Auscultation: normoactive bowel sounds Palpation: soft; Negative for tender or guarding Extremity normal to inspection General Extremity: Negative for edema Skin no rashes or lesions noted Lesions: no lesions Rashes: no rashes Neuro oriented x3 Sensorium / Orientation: awake, alert, oriented to person, oriented to place andoriented to time Speech: speech normal Psych mental status grossly normal, cooperative, affect normal and speech normal Appearance: grossly normal Attitude: calm Assessment & Plan Assessment/Plan (1) Debility: PLAN: Will continue with PT/OT and follow up on findings and recommendations. D/C planned for 02/01 with [facility] and family care. Continue with PRN pain management, bowel regimen and fall precautions. Family training scheduled for tomorrow afternoon. (2) Parkinson disease: QUALIFIERS: Dyskinesia presence: with dyskinesia Fluctuating manifestations: unspecified whether manifestations fluctuate Qualified Code(s):G20.B1 - Parkinson's disease with dyskinesia, without mention of fluctuations PLAN: As above. Will continue home medications. Will continue baclofen to helpwith muscle spasms and contractility. Patient denies any pain. (3) Oropharyngeal dysphagia: PLAN: PEG tube in place. Speech therapy following. His diet has been maintained on full thin liquids due to concern of aspiration. Will continue with isosource 1.5 [id number]. Will also continue with H20 50cc before and after feeds. Family training this week will include PEG tube care and management. Skin appears slightly irritated around PEG today without signs of infection. Will continue to monitor closely. (4) S/P percutaneous endoscopic gastrostomy (PEG) tube placement: PLAN: As above. Patient is currently tolerating tube feeds well. He will need to follow up with GI upon discharge from inpatient rehab. (5) Muscle spasm: PLAN: As above. Continue with baclofen. Will continue to monitor and adjust asneeded. (6) Severe protein-calorie malnutrition: PLAN: As above. (7) Esophagitis: PLAN: Will continue protonix 40mg BID (8) Overactive bladder: PLAN: Continue home medications including myrbetriq and solifenacin. (9) HTN (hypertension): QUALIFIERS: Hypertension type: essential hypertension Qualified Code(s): I10 - Essential (primary) hypertension PLAN: Blood pressure has been borderline during his admission. Patient hasn't been on medications at home. Will continue with PRN hydralazine and monitor. (10) BPH (benign prostatic hyperplasia): QUALIFIERS: Lower urinary tract symptom presence: symptoms absent Qualified Code(s): N40.0 - Benign prostatic hyperplasia without lower urinary tract symptoms PLAN: Stable. No current symptoms. (11) DMII (diabetes mellitus, type 2): QUALIFIERS: Diabetes mellitus complication status: without complication Diabetes mellitus senior care insulin use: without lobsterman use Qualified Code(s): E11.9 - Type 2 diabetes mellitus without complications PLAN: Patient hasn't been on diabetic medications since his weight loss. Will continue with glucose checks and add SSI as needed. Last A1c was out of diabetic range at 5.6. Glucose was 127 this morning. Charges/Coding Visit Charges Inpatient E&M: 92553 Subs Hosp L1 01/28/23 1137 <Electronically signed by Nicolasa Willingham MD> Cosigner Signature (if applicable): CC: ~ Signed [facility] Work Phone: 1(308) 502-197312-11-2023 Progress note Author Nicolasa Willingham [facility] January 27, 2023 11:02am Note Date/Time January 27, 2023 10:12am [facility] Medical Records Department [address] [place] [id number] Progress Note - Rehab 01/27/23 1006 MR#: [id number] Acct: [id number] Name: KATHARINE LARSEN Rep #:[id number] : 1950 72 From: Nicolasa Willingham MD PCP: Dr. Nico Schmidt MD Status:ADM I N Location: [place] [address] Nicolasa Willingham MD on 01/27/23 at 1102 Visit Charges Inpatient E&M: 70650 Subs Hosp L2 01/27/23 1102<Electronically signed by Nicolasa Willingham MD> Cosigner Signature (if applicable): cc: ~* Signed Subjective Subjective Patient was admitted for daily rehab following a hospital stay for progressive weakness in the setting of Parkinson's disease, dysphagia and esophagitis. No events overnight, although he reports he didn't sleep well last night. He was seen today on TEAM rounds. Per therapy, the patient continues to require max assist with dressing and help with bathing. He is able to do his own oral care. His feet can slide out so he does require somebody to help block his feet with standing. He is able to walk about 10 feet with the parallel bars. He has beentaking tylenol for leg pains which does help. Family training is scheduled for Friday with a goal of discharge home with [facility] and family assistance on 02/01. The patient reports that he is doing well. He denies any pain currently. He is being maintained on a thin liquid/pureed diet and his tube feeds. He hasn't been feeling hungry like he was last week, although he does wish he could have pizza. He is moving his bowels and urinating without difficulty. He has no questions or concerns at this time. Objective Data Objective Data Vital Signs: Vital Signs Temp Pulse Resp BP Pulse Ox O2 Del Method O2 Flow Rate 99 F 74 20 H 148/89 H 95 Room Air 1 01/27/23 07:38 01/27/23 07:38 01/27/23 07:38 01/27/23 07:38 01/27/23 07:38 01/27/23 07:38 01/15/23 22:21 Oxygen Flow Rate (L/min) 1 Oxygen Delivery Method Room Air Weight: 116 lb 2.938 oz Body Mass Index (BMI) 18.1 Intake & Output: Intake and Output for Last 24 Hours 01/25/23 01/26/23 01/27/23 23:59 23:59 23:59 Intake Total 2520 / 3020 2960 / 3080 120 / 120 Balance 2520 / 3020 2960 / 3080 120 / 120 Medical Nutrition Assessment Dietitian: Malnutrition Criteria Met Start: 01/15/23 13:17 Freq: Status: Active Protocol: Document 01/22/23 15:20 LO (Rec: 01/22/23 15:20 LO [id number]) Nutrition Malnutrition Evidence of Malnutrition Exists Yes Malnutrition (severe): Chronic Evidenced By Suboptimal Energy Intake ( Severe),Weight Loss (Severe), Physical Changes (Severe) Clinical Problem Chronic Disease or Condition Related Malnutrition Etiology severe, chronic malnutrition related to inadequate energy intake d/t dysphagia Signs/Symptoms as evidenced by estimated PO intake meeting <75% of estimated energy needs > 3 months, unintentional 18% wt loss x 6 months, Severe muscle wasting/fat loss evident per physical exam in orbital, clavicle, acromion, and temporal areas, BMI 17.6 Status Active Problem Recommendation Dietitian Recommendations/Changes 1. Regular diet- texture/ consistency (purees/thins) per [employer]; anticipate PO diet to be mostly for pleasure, so 100% of estimated energy needs to be met via enteral nutrition. 2. Will continue via PEG- Jevity 1.5 300mL 4x/day w/ 100mL H2O flush before and after each bolus to provide 1800 calories, 76.56 g protein , and 1712mL fluid/day. Noted pt on Sinemet which must be given 30 minutes before meals or 1 hour after meals. Will order Jevity boluses after meal times and at HS. 3. Will add Jevity 1.5 200mL bolus feed at 0600 with 100mL flush before and after each bolus to help with satiety. 3. Daily wts. 4. Will monitor wound assessments and add Romain BID via PEG as indicated. Lab / Micro Data Attestation: I reviewed the patient's lab results. 01/15/23 05:18 01/15/23 05:18 Labs: Laboratory Results - last 24 hr 01/26/23 11:31: POC Glucose 150 H 01/26/23 16:45: POC Glucose 116 H 01/26/23 21:59: POC Glucose 136 H 01/27/23 06:30: POC Glucose 98 01/27/23 07:30: POC Glucose 147 H Micro: Microbiology 01/15/23 17:25 Blood Culture (Wb) - Anticubital Right Blood Culture - Final No growth in 5 days. 01/15/23 17:30 Blood Culture (Wb) - Left Wrist Blood Culture - Final No growth in 5 days. 01/15/23 17:15 Urine Catheter - Vincent Urine Culture - Final Staphylococcus aureus Indicators for Scoring Admitted with or Primary Diagnosis of CVA/Stroke: No Hx of CVA/Stroke: No Modified [place]ka Score MRS Score at time of Evaluation: 5-Severe disability Physical Exam Const alert, oriented x3 and no apparent distress Constitutional Narrative: Emaciated, Laying in bed General Appearance: cooperative; Negative for in distress, ill appearing or diaphoretic Orientation / Consciousness: awake, oriented to person, oriented to place and oriented to time Exam Limitations: Negative for altered mental status HEENT normocephalic, head/scalp atraumatic and dentition normal Head and Scalp: normocephalic and atraumatic Face and Sinus: normal facial exam Eyes General Eye: normal appearance of both eyes Chest inspection of chest normal Chest: symmetrical chest wall rise Resp normal respiratory effort, normal air movement, no use of accessory muscles and clear to auscultation bilaterally Resp Narrative: Anterior auscultation Effort and Inspection: able to speak in complete sentences and symmetric chest movement; Negative for respiratory distress or audible wheezes Auscultation: clear to auscultation bilaterally Cardio regular rate, regular rhythm and no murmurs Cardio Narrative: Distant heart sounds Rate: regular rate Rhythm: regular rhythm Heart Sounds: Negative for murmur GI normal to inspection, nondistended, normoactive bowel sounds, soft to palpation,non-tender and non-distended GI Narrative: Peg tube in place. Dressing is clean, dry and intact Auscultation: normoactive bowel sounds Palpation: soft; Negative for tender or guarding Extremity normal to inspection General Extremity: Negative for edema Skin no rashes or lesions noted Lesions: no lesions Rashes: no rashes Neuro oriented x3 Sensorium / Orientation: awake, alert, oriented to person, oriented to place andoriented to time Speech: speech normal Psych mental status grossly normal, cooperative, affect normal and speech normal Appearance: grossly normal Attitude: calm Assessment & Plan Assessment/Plan (1) Debility: PLAN: Will continue with PT/OT and follow up on findings and recommendations. D/C planned for 02/01 with [facility] and family care. Continue with PRN pain management, bowel regimen and fall precautions. (2) Parkinson disease: QUALIFIERS: Dyskinesia presence: with dyskinesia Fluctuating manifestations: unspecified whether manifestations fluctuate Qualified Code(s):G20.B1 - Parkinson's disease with dyskinesia, without mention of fluctuations PLAN: As above. Will continue home medications. Will continue baclofen to helpwith muscle spasms and contractility. Patient denies any pain associated with these. (3) Oropharyngeal dysphagia: PLAN: PEG tube in place. Speech therapy following. His diet has been changed to full thin liquids due to concern of aspiration. Will continue with isosource1.5 [id number]. Will also continue with H20 50cc before and after feeds. Family training this week will include PEG tube care and management. (4) S/P percutaneous endoscopic gastrostomy (PEG) tube placement: PLAN: As above. Patient is currently tolerating tube feeds well. (5) Muscle spasm: PLAN: As above. Continue with baclofen. Will continue to monitor and adjust asneeded. (6) Severe protein-calorie malnutrition: PLAN: As above. (7) Esophagitis: PLAN: Will continue protonix 40mg BID (8) Overactive bladder: PLAN: Continue home medications including myrbetriq and solifenacin. (9) HTN (hypertension): QUALIFIERS: Hypertension type: essential hypertension Qualified Code(s): I10 - Essential (primary) hypertension PLAN: Blood pressure slightly elevated currently. Patient hasn't been on medications at home. Will continue with PRN hydralazine and monitor. (10) BPH (benign prostatic hyperplasia): QUALIFIERS: Lower urinary tract symptom presence: symptoms absent Qualified Code(s): N40.0 - Benign prostatic hyperplasia without lower urinary tract symptoms PLAN: Stable. No current symptoms. (11) DMII (diabetes mellitus, type 2): QUALIFIERS: Diabetes mellitus complication status: without complication Diabetes mellitus lobsterman insulin use: without senior care use Qualified Code(s): E11.9 - Type 2 diabetes mellitus without complications PLAN: Patient hasn't been on diabetic medications since his weight loss. Will continue with glucose checks and add SSI as needed. Last A1c was out of diabetic range at 5.6. Glucose was 147 this morning. (12) UTI (urinary tract infection): QUALIFIERS: Hematuria presence: without hematuria Urinary tract infection type: acute cystitis Qualified Code(s): N30.00 - Acute cystitis without hematuria PLAN: Resolved. Patient has completed his antibiotic treatment. 01/27/23 1051 <Electronically signed by Nicolasa Willingham MD> Cosigner Signature (if applicable): CC: ~ Signed [facility] Work Phone: 1(986) 539-636412-11-2023 Miscellaneous Notes* Telephone Encounter - Nikkie Newton RN - 01/27/2023 12:13 PM EST Information faxed as requested. * Telephone Encounter - Kera Kearns RN - 01/27/2023 11:28 AM EST RN called and LM that prior dosing for Rytary which is listed on the medication bottle may be used for dosing purposes. RN contacted facility to advise, they are requesting a faxed order. RN drafted [facility], . Kera Kearns RN * Telephone Encounter - Kera Kearns RN - 01/22/2023 9:33 AM EST RN called and spoke with the patient's spouse. She states that the facility has an unopened bottle of Rytary for Kavon that she gave them, so they can start dispensing immediately. She did say that it was Rytary 145 , not the 3/ dosing schedule as just ordered by [facility]. RN routing to see ofBLW wants the same dosing as previous or keeping the as ordered in this encounter. RN will call facility to advise of the order for Rytary and dosing, will fax the order if they cannot take verbal - this will be done once dosing confirmed. Patient spouse verbalized understanding of all information provided and agrees to POC at this time. Kera Kearns RN * Telephone Encounter - Juan R John MD - 01/21/2023 6:29 PM EST The Rytary Capsules can be opened and flushed in PEG tube. Medications 8AM 100AM 600PM Bedtime Rytary 145 3 3 3 1 It should be given on a timely basis. Can we send instructions? Juan R John MD * Telephone Encounter - Delmi Bledsoe - 01/21/2023 2:43 PM EST Pt's called again - they need this MAGGIE. Please contact her as well as the facility. [phone] also wanted BLW to know that Kavon is doing better and walking with a walker. * Telephone Encounter - Delmi Bledsoe - 01/16/2023 11:00 AM EST Pt's phoned - he was at [facility] for a couple of weeks and he was initially given Sinemet until Dr. John called to have this changed to the Rytary that he is supposed to get. He has been since transferred to [facility] 4th floor and this update did notget sent with him. She said he is to be taking the same Rytary he has always taken. Facility (p) [phone] (f) [phone] Mrs. Larsen (p) [phone] [facility] Progress note Author Nicolasa Willingham [facility] January 22, 2023 11:59am Note Date/Time January 22, 2023 1 0:11am [facility] Medical Records Department [address] [place] [id number] Progress Note - Rehab 01/22/23 1007 MR#: [id number] Acct: [id number] Name: KATHARINE LARSEN Rep #:[id number] : 1950 72 From: Nicolasa Willingham MD PCP: Dr. Nico Schmidt MD Status:ADM I N Location: [place] [address] Subjective Subjective Patient was admitted for daily rehab following a hospital stay for progressive weakness in the setting of Parkinson's disease, dysphagia and esophagitis. No events overnight. The patient reports he has been working with therapy and feels that he is slowly progressing. He denies any pain. He is being maintained on a thin liquid/pureed diet and his tube feeds. He does feel that he is still hungry after his feeds, however. He is motivated to try chocolate which speech therapy states they will work on. He is moving his bowels without difficulty. He has no questions or concerns at this time. Objective Data Objective Data Vital Signs: Vital Signs Temp Pulse Resp BP Pulse Ox O2 Del Method O2 Flow Rate 98.2 F 67 18 141/80 H 95 Room Air 1 01/22/23 08:57 01/22/23 08:57 01/22/23 08:57 01/22/23 08:57 01/22/23 08:57 01/22/23 08:57 01/15/23 22:21 Oxygen Flow Rate (L/min) 1 Oxygen Delivery Method Room Air Weight: 116 lb 9.992 oz Body Mass Index (BMI) 18.2 Intake & Output: Intake and Output for Last 24 Hours 01/20/23 01/21/23 01/22/23 23:59 23:59 23:59 Intake Total 0 / 2280 2240 / 2240 Balance 19190 0 / 2240 Medical Nutrition Assessment Dietitian: Malnutrition Criteria Met Start: 01/15/23 13:17 Freq: Status: Active Protocol: Document 01/15/23 13:17 AG (Rec: 01/15/23 13:17 AG Desktop) Nutrition Malnutrition Evidence of Malnutrition Exists Yes Malnutrition (severe): Chronic Evidenced By Suboptimal Energy Intake ( Severe),Weight Loss (Severe), Physical Changes (Severe) Clinical Problem Chronic Disease or Condition Related Malnutrition Etiology severe, chronic malnutrition related to inadequate energy intake d/t dysphagia Signs/Symptoms as evidenced by estimated PO intake meeting <75% of estimated energy needs > 3 months, unintentional 18% wt loss x 6 months, Severe muscle wasting/fat loss evident per physical exam in orbital, clavicle, acromion, and temporal areas, BMI 17.6 Status Active Problem Recommendation Dietitian Recommendations/Changes 1. Regular diet- texture/ consistency (purees/thins) per [employer]ACH[employer] HOSE; anticipate PO diet to be mostly for pleasure, so 100% of estimated energy needs to be met via enteral nutrition. 2. Will continue via PEG- Jevity 1.5 300mL 4x/day w/ 100mL H2O flush before and after each bolus to provide 1800 calories, 76.56 g protein , and 1712mL fluid/day. Noted pt on Sinemet which must be given 30 minutes before meals or 1 hour after meals. Will order Jevity boluses after meal times and at HS. 3. Daily wts. 4. Will monitor wound assessments and add Romain BID via PEG as indicated. Lab / Micro Data Attestation: I reviewed the patient's lab results. 01/15/23 05:18 01/15/23 05:18 Labs: Laboratory Results - last 24 hr 01/21/23 12:07: POC Glucose 115 H 01/21/23 16:07: POC Glucose 169 H 01/21/23 22:22: POC Glucose 160 H 01/22/23 06:04: POC Glucose 87 Micro: Microbiology 01/15/23 17:25 Blood Culture (Wb) - Anticubital Right Blood Culture - Final No growth in 5 days. 01/15/23 17:30 Blood Culture (Wb) - Left Wrist Blood Culture - Final No growth in 5 days. 01/15/23 17:15 Urine Catheter - Vincent Urine Culture - Final Staphylococcus aureus Indicators for Scoring Admitted with or Primary Diagnosis of CVA/Stroke: No Hx of CVA/Stroke: No Modified Houston Score MRS Score at time of Evaluation: 5-Severe disability Physical Exam Const alert, oriented x3 and no apparent distress Constitutional Narrative: Emaciated, speech is louder and more comprehensible Sitting up in the chair, working with therapy General Appearance: cooperative; Negative for in distress, ill appearing or diaphoretic Orientation / Consciousness: awake, oriented to person, oriented to place and oriented to time Exam Limitations: Negative for altered mental status HEENT normocephalic, head/scalp atraumatic, oropharynx normal and dentition normal Head and Scalp: normocephalic and atraumatic Face and Sinus: normal facial exam Mouth: dry mucous membranes Eyes PERRL General Eye: normal appearance of both eyes Conjunctiva: conjunctiva normal Sclera: sclera normal Pupil: PERRL Chest inspection of chest normal Chest: abnormal inspection of the chest and symmetrical chest wall rise Resp normal respiratory effort, normal air movement, no use of accessory muscles and clear to auscultation bilaterally Effort and Inspection: able to speak in complete sentences and symmetric chest movement; Negative for respiratory distress or audible wheezes Auscultation: clear to auscultation bilaterally Cardio regular rate, regular rhythm and no murmurs Cardio Narrative: Distant heart sounds Rate: regular rate Rhythm: regular rhythm Heart Sounds: Negative for murmur GI normal to inspection, nondistended, normoactive bowel sounds, soft to palpation,non-tender and non-distended GI Narrative: Peg tube in place. Dressing is clean, dry and intact Auscultation: normoactive bowel sounds Palpation: soft; Negative for tender or guarding Extremity normal to inspection General Extremity: Negative for edema Skin no rashes or lesions noted Lesions: no lesions Rashes: no rashes Wound Narrative: Dressing in place over right elbow Neuro oriented x3 Sensorium / Orientation: awake, alert, oriented to person, oriented to place andoriented to time Speech: speech normal Psych mental status grossly normal, cooperative, affect normal and speech normal Appearance: grossly normal Attitude: calm Assessment & Plan Assessment/Plan (1) Debility: PLAN: Will continue with PT/OT and follow up on findings and recommendations. D/C planned for 02/01. Unclear yet if patient will return home or need additional placement for continued therapy. Continue with PRN pain management, bowel regimen and fall precautions. (2) Parkinson disease: QUALIFIERS: Dyskinesia presence: with dyskinesia Fluctuating manifestations: unspecified whether manifestations fluctuate Qualified Code(s):G20.B1 - Parkinson's disease with dyskinesia, without mention of fluctuations PLAN: As above. Will continue home medications. Will continue baclofen to helpwith muscle spasms and contractility. Patient denies any pain associated with these. (3) Oropharyngeal dysphagia: PLAN: PEG tube in place. Speech therapy following. His diet has been changed to full thin liquids due to concern of aspiration. Will continue with isosource1.5 [id number] every 4 hours, however, will touch base with telemarketing fundraiser for possible adjustment. Will also continue with H20 50cc before and after feeds. (4) S/P percutaneous endoscopic gastrostomy (PEG) tube placement: PLAN: As above. Patient is currently tolerating tube feeds well. (5) Muscle spasm: PLAN: As above. Continue with baclofen. Will continue to monitor and adjust asneeded. (6) Severe protein-calorie malnutrition: PLAN: As above. (7) Esophagitis: PLAN: Will continue protonix 40mg BID (8) Overactive bladder: PLAN: Continue home medications including myrbetriq and solifenacin. (9) HTN (hypertension): QUALIFIERS: Hypertension type: essential hypertension Qualified Code(s): I10 - Essential (primary) hypertension PLAN: Blood pressure slightly elevated currently. Patient hasn't been on medications following weight loss. Will continue with PRN hydralazine and monitor. (10) BPH (benign prostatic hyperplasia): QUALIFIERS: Lower urinary tract symptom presence: symptoms absent Qualified Code(s): N40.0 - Benign prostatic hyperplasia without lower urinary tract symptoms PLAN: Stable. No current symptoms. (11) DMII (diabetes mellitus, type 2): QUALIFIERS: Diabetes mellitus complication status: without complication Diabetes mellitus senior care insulin use: without lobsterman use Qualified Code(s): E11.9 - Type 2 diabetes mellitus without complications PLAN: Patient hasn't been on diabetic medications since his weight loss. Will continue with glucose checks and add SSI as needed. Last A1c was out of diabetic range at 5.6. Glucose was 87 this morning. (12) UTI (urinary tract infection): QUALIFIERS: Hematuria presence: without hematuria Urinary tract infection type: acute cystitis Qualified Code(s): N30.00 - Acute cystitis without hematuria PLAN: Patient's urine culture was growing staph aureus. Will complete treatmentwith doxycycline as ordered. No current complaints. Charges/Coding Visit Charges Inpatient E&M: 43418 Subs Hosp L2 01/22/23 1159 <Electronically signed by Nicolasa Willingham MD> Cosigner Signature (if applicable): CC: ~ Signed [facility] Work Phone: 1(438) 240-340512-05-2023 Progress note Author Freddy Swann [facility] January 21, 2023 8:40am Note Date/Time January 21, 2023 8 :40am [facility] Medical Records Department [address] [place] [address] Progress Note - Rehab 01/21/23 0838 MR#: [id number] Acct: [id number] Name: KATHARINE LARSEN Rep #:[id number] : 1950 72 From: Freddy Swann MD PCP: Dr. Nico Schmidt MD Status:ADM I N Location: [place] [address] Subjective Subjective Patient seen, examined. He has no new complaints. He is watching TV, sipping thin liquids. Objective Data Objective Data Vital Signs: Vital Signs Temp Pulse Resp BP Pulse Ox O2 Del Method O2 Flow Rate 98.0 F 90 20 H 132/77 H 97 Room Air 1 01/20/23 22:00 01/20/23 22:00 01/20/23 22:00 01/20/23 22:00 01/20/23 22:00 01/20/23 22:00 01/15/23 22:21 Oxygen Flow Rate (L/min) 1 Oxygen Delivery Method Room Air Weight: 51.71 kg Body Mass Index (BMI) 17.8 Intake & Output: Intake and Output for Last 24 Hours 01/19/23 01/20/23 01/21/23 23:59 23:59 23:59 Intake Total 2760 / 2760 1920 / 2280 360 / 360 Balance 2760 / 2760 1920 / 2280 360 / 360 Medical Nutrition Assessment Dietitian: Malnutrition Criteria Met Start: 01/15/23 13:17 Freq: Status: Active Protocol: Document 01/15/23 13:17 AG (Rec: 01/15/23 13:17 AG Desktop) Nutrition Malnutrition Evidence of Malnutrition Exists Yes Malnutrition (severe): Chronic Evidenced By Suboptimal Energy Intake ( Severe),Weight Loss (Severe), Physical Changes (Severe) Clinical Problem Chronic Disease or Condition Related Malnutrition Etiology severe, chronic malnutrition related to inadequate energy intake d/t dysphagia Signs/Symptoms as evidenced by estimated PO intake meeting <75% of estimated energy needs > 3 months, unintentional 18% wt loss x 6 months, Severe muscle wasting/fat loss evident per physical exam in orbital, clavicle, acromion, and temporal areas, BMI 17.6 Status Active Problem Recommendation Dietitian Recommendations/Changes 1. Regular diet- texture/ consistency (purees/thins) per MACHINE [employer] HOSE; anticipate PO diet to be mostly for pleasure, so 100% of estimated energy needs to be met via enteral nutrition. 2. Will continue via PEG- Jevity 1.5 300mL 4x/day w/ 100mL H2O flush before and after each bolus to provide 1800 calories, 76.56 g protein , and 1712mL fluid/day. Noted pt on Sinemet which must be given 30 minutes before meals or 1 hour after meals. Will order Jevity boluses after meal times and at HS. 3. Daily wts. 4. Will monitor wound assessments and add Romain BID via PEG as indicated. Lab / Micro Data Attestation: I reviewed the patient's lab results. 01/15/23 05:18 01/15/23 05:18 Labs: Laboratory Results - last 24 hr 01/20/23 11:46: POC Glucose 115 H 01/20/23 16:08: POC Glucose 79 01/20/23 21:35: POC Glucose 126 H 01/21/23 06:48: POC Glucose 87 Micro: Microbiology 01/15/23 17:25 Blood Culture (Wb) - Anticubital Right Blood Culture - Final No growth in 5 days. 01/15/23 17:30 Blood Culture (Wb) - Left Wrist Blood Culture - Final No growth in 5 days. 01/15/23 17:15 Urine Catheter - Vincent Urine Culture - Final Staphylococcus aureus Indicators for Scoring Admitted with or Primary Diagnosis of CVA/Stroke: No Hx of CVA/Stroke: No Modified Houston Score MRS Score at time of Evaluation: 5-Severe disability Physical Exam Const alert General Appearance: cooperative HEENT normocephalic Eyes PERRL and EOMs intact bilaterally Neck supple, no JVD and no carotid bruits Resp normal respiratory effort, normal air movement and clear to auscultation bilaterally Cardio regular rate and regular rhythm GI normal to inspection, nondistended, normoactive bowel sounds, non-tender and non-distended GI Narrative: PEG tube present. Extremity normal capillary refill General Extremity: Negative for edema Skin no rashes or lesions noted General Skin Exam: no breakdown Psych affect normal Appearance: appropriate Assessment & Plan Assessment/Plan (1) Debility: (2) Parkinson disease: QUALIFIERS: Dyskinesia presence: with dyskinesia Fluctuating manifestations: unspecified whether manifestations fluctuate Qualified Code(s): G20.B1 - Parkinson's disease with dyskinesia, without mention of fluctuations (3) S/P percutaneous endoscopic gastrostomy (PEG) tube placement: (4) Muscle spasm: (5) HTN (hypertension): QUALIFIERS: Hypertension type: essential hypertension Qualified Code(s): I10 - Essential (primary) hypertension (6) Esophagitis: (7) Overactive bladder: PLAN: Plan 72 year old male with stage 5 Parkinson Disease admitted to for 3 hours dailyrehabilitation, strengthening. * Debility - PT/OT. * Dysphagia - ST. * Pain - Tylenol 650mg q4 prn pain (1-10). * Bowel - Miralax 17gm daily, senna/colace 1 tablet bid, Dulcolax 10mg pr x 1 prn, MOM 30ml po x 1 prn. * Parkinson Disease - Sinemet 25/100mg 3 tablets tid, 1 tablet 2300, Amantadine 100mg daily, Azilect 1mg daily, Spouse to provide order from patient's neurologist to adjust Parkinson medications. * Muscle spasm - Baclofen 5mg bid. * Hypertension - Hydralazine 10mg tid prn. * s/p PEG - Jevity 1.5 300ml tidpc, 300ml qhs, allowed to drink thin liquids. * Esophagitis - Lansoprazole 30mg bid. * Skin irritation - Calmoseptine topical tid, Eucerin topical tid prn. * Tinea Corporis - Nystatin powder topical bid. * Overactive bladder - Myrbetriq 50mg daily, Tolterodine 4mg daily. * Urinary tract infection - Staph, Doxycycline 100mg bid thru 01/24/2023. 01/21/23 0840 <Electronically signed by Freddy Swann MD> Cosigner Signature (if applicable): CC: ~ Signed [facility] Work Phone: 1(261) 154-783912-04-2023 Progress note Author [facility] January 20, 2023 9:05am Note Date/Time January 20, 2023 9 :05am [facility] Medical Records Department [address] [place] [address] Progress Note - Rehab 01/20/23 0902 MR#: [id number] Acct: [id number] Name: KATHARINE LARSEN Rep #:[id number] : 1950 72 From: Freddy Swann MD PCP: Dr. Nico Schmidt MD Status:ADM I N Location: [place] [address] Subjective Subjective Patient seen on IDT rounds. His progression with therapy is slow. We had briefconversation about his Parkinson Disease being a progressive illness, and his goals of care. Patient's goal is to return to previous baseline function prior to hospitalization. We agreed we would continue to work with therapy to look for improvement, but he may need placement prior to going home. Objective Data Objective Data Vital Signs: Vital Signs Temp Pulse Resp BP Pulse Ox O2 Del Method O2 Flow Rate 98.1 F 67 16 148/82 H 97 Room Air 1 01/20/23 08:04 01/20/23 08:04 01/20/23 08:04 01/20/23 08:04 01/20/23 08:04 01/20/23 08:04 01/15/23 22:21 Oxygen Flow Rate (L/min) 1 Oxygen Delivery Method Room Air Weight: 51.1 kg Body Mass Index (BMI) 17.6 Intake & Output: Intake and Output for Last 24 Hours 01/18/23 01/19/23 01/20/23 23:59 23:59 23:59 Intake Total 2300 / 2300 2760 / 2760 200 / 200 Output Total 900 / 900 Balance 1400 / 1400 2760 / 2760 200 / 200 Medical Nutrition Assessment Dietitian: Malnutrition Criteria Met Start: 01/15/23 13:17 Freq: Status: Active Protocol: Document 01/15/23 13:17 AG (Rec: 01/15/23 13:17 AG Desktop) Nutrition Malnutrition Evidence of Malnutrition Exists Yes Malnutrition (severe): Chronic Evidenced By Suboptimal Energy Intake ( Severe),Weight Loss (Severe), Physical Changes (Severe) Clinical Problem Chronic Disease or Condition Related Malnutrition Etiology severe, chronic malnutrition related to inadequate energy intake d/t dysphagia Signs/Symptoms as evidenced by estimated PO intake meeting <75% of estimated energy needs > 3 months, unintentional 18% wt loss x 6 months, Severe muscle wasting/fat loss evident per physical exam in orbital, clavicle, acromion, and temporal areas, BMI 17.6 Status Active Problem Recommendation Dietitian Recommendations/Changes 1. Regular diet- texture/ consistency (purees/thins) per MACHINE [employer]INTER HOSE; anticipate PO diet to be mostly for pleasure, so 100% of estimated energy needs to be met via enteral nutrition. 2. Will continue via PEG- Jevity 1.5 300mL 4x/day w/ 100mL H2O flush before and after each bolus to provide 1800 calories, 76.56 g protein , and 1712mL fluid/day. Noted pt on Sinemet which must be given 30 minutes before meals or 1 hour after meals. Will order Jevity boluses after meal times and at HS. 3. Daily wts. 4. Will monitor wound assessments and add Romain BID via PEG as indicated. Lab / Micro Data Attestation: I reviewed the patient's lab results. 01/15/23 05:18 01/15/23 05:18 Labs: Laboratory Results - last 24 hr 01/19/23 12:36: POC Glucose 121 H 01/19/23 16:27: POC Glucose 129 H 01/19/23 21:35: POC Glucose 74 01/20/23 06:35: POC Glucose 74 Micro: Microbiology 01/15/23 17:30 Blood Culture (Wb) - Left Wrist Blood Culture - Preliminary No growth in 48 hours. 01/15/23 17:25 Blood Culture (Wb) - Anticubital Right Blood Culture - Preliminary No growth in 48 hours. 01/15/23 17:15 Urine Catheter - Vincent Urine Culture - Final Staphylococcus aureus Indicators for Scoring Admitted with or Primary Diagnosis of CVA/Stroke: No Hx of CVA/Stroke: No Modified Houston Score MRS Score at time of Evaluation: 5-Severe disability Physical Exam Const alert General Appearance: cooperative HEENT normocephalic Eyes PERRL and EOMs intact bilaterally Neck supple, no JVD and no carotid bruits Resp normal respiratory effort, normal air movement and clear to auscultation bilaterally Cardio regular rate and regular rhythm GI normal to inspection, nondistended, normoactive bowel sounds, non-tender and non-distended GI Narrative: PEG tube present. Extremity normal capillary refill General Extremity: Negative for edema Skin no rashes or lesions noted General Skin Exam: no breakdown Psych affect normal Appearance: appropriate Assessment & Plan Assessment/Plan (1) Debility: (2) Parkinson disease: QUALIFIERS: Dyskinesia presence: with dyskinesia Fluctuating manifestations: unspecified whether manifestations fluctuate Qualified Code(s):G20.B1 - Parkinson's disease with dyskinesia, without mention of fluctuations (3) S/P percutaneous endoscopic gastrostomy (PEG) tube placement: (4) Muscle spasm: (5) HTN (hypertension): QUALIFIERS: Hypertension type: essential hypertension Qualified Code(s): I10 - Essential (primary) hypertension (6) Esophagitis: (7) Overactive bladder: PLAN: Plan 72 year old male with stage 5 Parkinson Disease admitted to for 3 hours dailyrehabilitation, strengthening. * Debility - PT/OT. * Dysphagia - ST. * Pain - Tylenol 650mg q4 prn pain (1-10). * Bowel - Miralax 17gm daily, senna/colace 1 tablet bid, Dulcolax 10mg pr x 1 pr n, MOM 30ml po x 1 prn. * Parkinson Disease - Sinemet 25/100mg 3 tablets tid, 1 tablet 2300, Amantadine 100mg daily, Azilect 1mg daily, Spouse to provide order from patient's neurologist to adjust Parkinson medications. * Muscle spasm - Baclofen 5mg bid. * Hypertension - Hydralazine 10mg tid prn. * s/p PEG - Jevity 1.5 300ml tidpc, 300ml qhs. * Esophagitis - Lansoprazole 30mg bid. * Skin irritation - Calmoseptine topical tid, Eucerin topical tid prn. * Tinea Corporis - Nystatin powder topical bid. * Overactive bladder - Myrbetriq 50mg daily, Tolterodine 4mg daily, urine culture pending. Capacity Capacity Assessment Tool Can the patient make a choice & communicate that choice?: Yes Can the patient understand benefits, risks and alternatives?: Yes Can the patient make a logical, rational choice?: Yes Is the choice the patient makes consistent w/ their values?: Yes Is there an impending, emergent risk to the patient?: No Does the patient have an Advance Directive?: No Is there a Surrogate Available?: Yes i.e. HCPOA: Yes i.e. close relative (spouse, child, parent, sibling)?: Yes 01/20/23904 <Electronically signed by Freddy Swann MD> Cosigner Signature (if applicable): CC: ~ Signed [facility] Work Phone: 1(449) 708-887412-01-2023 Progress note Author Freddy [facility] January 17, 2023 2:17pm Note Date/Time January 17, 2023 8 :30am [facility] Medical Records Department [address] [place] [address] Progress Note - Rehab 01/17/23825 MR#: [id number] Acct: [id number] Name: KATHARINE LARSEN Rep #:[id number] : 1950 72 From: Freddy Swann MD PCP: Dr. Nico Schmidt MD Status:ADM I N Location: [place] [address] Freddy Swann MD on 01/17/23 at 1417 Addendum Urinary tract infection - 01/15/2023 Urine culture >100,000 CFU/mL staph species, PCN allergic. Rx Doxycycline 100mg bid x 7 days, Rx Nitrofurantoin 100mg bid x 7 days, deescalate antibiotics once sensitivity available. 01/17/23 1417<Electronically signed by Freddy Swann MD> Cosigner Signature (if applicable): cc: ~* Signed Subjective Subjective Patient seen, examined. He has no new complaints. He speaks very softly, cachetic appearing. He tells me he has had Parkinson Disease for 10 years. Objective Data Objective Data Vital Signs: Vital Signs Temp Pulse Resp BP Pulse Ox O2 Del Method O2 Flow Rate 98.0 F 71 18 129/71 H 97 Room Air 1 01/17/23 08:08 01/17/23 08:08 01/17/23 08:08 01/17/23 08:08 01/17/23 08:08 01/17/23 08:08 01/15/23 22:21 Oxygen Flow Rate (L/min) 1 Oxygen Delivery Method Room Air Weight: 55.1 kg Body Mass Index (BMI) 19.1 Intake & Output: Intake and Output for Last 24 Hours 01/15/23 01/16/23 01/17/23 23:59 23:59 23:59 Intake Total 860 / 860 1180 / 1180 Balance 860 / 860 1180 / 1180 Medical Nutrition Assessment Dietitian: Malnutrition Criteria Met Start: 01/15/23 13:17 Freq: Status: Active Protocol: Document 01/15/23 13:17 AG (Rec: 01/15/23 13:17 AG Desktop) Nutrition Malnutrition Evidence of Malnutrition Exists Yes Malnutrition (severe): Chronic Evidenced By Suboptimal Energy Intake ( Severe),Weight Loss (Severe), Physical Changes (Severe) Clinical Problem Chronic Disease or Condition Related Malnutrition Etiology severe, chronic malnutrition related to inadequate energy intake d/t dysphagia Signs/Symptoms as evidenced by estimated PO intake meeting <75% of estimated energy needs > 3 months, unintentional 18% wt loss x 6 months, Severe muscle wasting/fat loss evident per physical exam in orbital, clavicle, acromion, and temporal areas, BMI 17.6 Status Active Problem Recommendation Dietitian Recommendations/Changes 1. Regular diet- texture/ consistency (purees/thins) per [employer]ACH[employer] HOSE; anticipate PO diet to be mostly for pleasure, so 100% of estimated energy needs to be met via enteral nutrition. 2. Will continue via PEG- Jevity 1.5 300mL 4x/day w/ 100mL H2O flush before and after each bolus to provide 1800 calories, 76.56 g protein , and 1712mL fluid/day. Noted pt on Sinemet which must be given 30 minutes before meals or 1 hour after meals. Will order Jevity boluses after meal times and at HS. 3. Daily wts. 4. Will monitor wound assessments and add Romain BID via PEG as indicated. Lab / Micro Data 01/15/23 05:18 01/15/23 05:18 Labs: Laboratory Results - last 24 hr 01/16/23 11:53: POC Glucose 110 H 01/16/23 16:16: POC Glucose 80 01/16/23 23:01: POC Glucose 90 01/17/23 05:54: POC Glucose 83 Indicators for Scoring Admitted with or Primary Diagnosis of CVA/Stroke: No Hx of CVA/Stroke: No Modified Shameka Score MRS Score at time of Evaluation: 4-Moderate/severe disability Physical Exam Const alert General Appearance: cooperative HEENT normocephalic Eyes PERRL and EOMs intact bilaterally Neck supple, no JVD and no carotid bruits Resp normal respiratory effort, normal air movement and clear to auscultation bilaterally Cardio regular rate and regular rhythm GI normal to inspection, nondistended, normoactive bowel sounds, non-tender and non-distended GI Narrative: PEG tube present. Extremity normal capillary refill General Extremity: Negative for edema Skin no rashes or lesions noted General Skin Exam: no breakdown Psych affect normal Appearance: appropriate Assessment & Plan Assessment/Plan (1) Debility: (2) Parkinson disease: QUALIFIERS: Dyskinesia presence: with dyskinesia Fluctuating manifestations: unspecified whether manifestations fluctuate Qualified Code(s):G20.B1 - Parkinson's disease with dyskinesia, without mention of fluctuations (3) S/P percutaneous endoscopic gastrostomy (PEG) tube placement: (4) Muscle spasm: (5) HTN (hypertension): QUALIFIERS: Hypertension type: essential hypertension Qualified Code(s): I10 - Essential (primary) hypertension (6) Esophagitis: (7) Overactive bladder: PLAN: Plan 72 year old male with stage 5 Parkinson Disease admitted to for 3 hours dailyrehabilitation, strengthening. * Debility - PT/OT. * Dysphagia - ST. * Pain - Tylenol 650mg q4 prn pain (1-10). * Bowel - Miralax 17gm daily, senna/colace 1 tablet bid, Dulcolax 10mg pr x 1 prn, MOM 30ml po x 1 prn. * Parkinson Disease - Sinemet 25/100mg 3 tablets tid, 1 tablet 2300, Amantadine 100mg daily, Azilect 1mg daily. * Muscle spasm - Baclofen 5mg bid. * Hypertension - Hydralazine 10mg tid prn. * s/p PEG - Jevity 1.5 300ml tidpc, 300ml qhs. * Esophagitis - Lansoprazole 30mg bid. * Skin irritation - Calmoseptine topical tid, Eucerin topical tid prn. * Tinea Corporis - Nystatin powder topical bid. * Overactive bladder - Myrbetriq 50mg daily, Tolterodine 4mg daily, urine culture pending. Capacity Capacity Assessment Tool Can the patient make a choice & communicate that choice?: Yes Can the patient understand benefits, risks and alternatives?: Yes Can the patient make a logical, rational choice?: Yes Is the choice the patient makes consistent w/ their values?: Yes Is there an impending, emergent risk to the patient?: No Does the patient have an Advance Directive?: No Is there a Surrogate Available?: Yes i.e. HCPOA: Yes i.e. close relative (spouse, child, parent, sibling)?: Yes 01/17/23 0837 <Electronically signed by Freddy Swann MD> Cosigner Signature (if applicable): CC: ~ Signed [facility] Work Phone: 1(200) 388-362511-30-2023 Progress note Author Nicolasa Willingham [facility] January 16, 2023 2:06pm Note Date/Time January 16, 2023 2:02pm [facility] Medical Records Department [address] [place] [address] [place] [address] Progress Note - Rehab 01/16/23 1358 MR#: [id number] Acct: [id number] Name: KATHARINE LARSEN Rep #:[id number] : 1950 72 From: Nicolasa Willingham MD PCP: Dr. Nico Schmidt MD Status:ADM I N Location: [place] [address] Subjective Subjective Patient was admitted for daily rehab following a hospital stay for progressive weakness in the setting of Parkinson's disease, dysphagia and esophagitis. No events overnight. The patient reports he has been working with therapy and states it has been slow. He denies any pain. His diet was recently changed to his dysphagia. He feels that he will be having a bowel movement soon. He has no questions or concerns at this time. Objective Data Objective Data Vital Signs: Vital Signs Temp Pulse Resp BP Pulse Ox O2 Del Method O2 Flow Rate 97.5 F L 71 18 145/86 H 97 Room Air 1 01/16/23 09:43 01/16/23 09:43 01/16/23 09:43 01/16/23 09:43 01/16/23 09:43 01/16/23 09:43 01/15/23 22:21 Oxygen Flow Rate (L/min) 1 Oxygen Delivery Method Room Air Weight: 121 lb 7.595 oz Body Mass Index (BMI) 19.1 Intake & Output: Intake and Output for Last 24 Hours 01/14/23 01/15/23 01/16/23 23:59 23:59 23:59 Intake Total 860 / 860 100 / 100 Balance 860 / 860 100 / 100 Medical Nutrition Assessment Dietitian: Malnutrition Criteria Met Start: 01/15/23 13:17 Freq: Status: Active Protocol: Document 01/15/23 13:17 AG (Rec: 01/15/23 13:17 AG Desktop) Nutrition Malnutrition Evidence of Malnutrition Exists Yes Malnutrition (severe): Chronic Evidenced By Suboptimal Energy Intake ( Severe),Weight Loss (Severe), Physical Changes (Severe) Clinical Problem Chronic Disease or Condition Related Malnutrition Etiology severe, chronic malnutrition related to inadequate energy intake d/t dysphagia Signs/Symptoms as evidenced by estimated PO intake meeting <75% of estimated energy needs > 3 months, unintentional 18% wt loss x 6 months, Severe muscle wasting/fat loss evident per physical exam in orbital, clavicle, acromion, and temporal areas, BMI 17.6 Status Active Problem Recommendation Dietitian Recommendations/Changes 1. Regular diet- texture/ consistency (purees/thins) per [employer]SE; anticipate PO diet to be mostly for pleasure, so 100% of estimated energy needs to be met via enteral nutrition. 2. Will continue via PEG- Jevity 1.5 300mL 4x/day w/ 100mL H2O flush before and after each bolus to provide 1800 calories, 76.56 g protein , and 1712mL fluid/day. Noted pt on Sinemet which must be given 30 minutes before meals or 1 hour after meals. Will order Jevity boluses after meal times and at HS. 3. Daily wts. 4. Will monitor wound assessments and add Romain BID via PEG as indicated. Lab / Micro Data Attestation: I reviewed the patient's lab results. 01/15/23 05:18 01/15/23 05:18 Labs: Laboratory Results - last 24 hr 01/15/23 16:14: POC Glucose 115 H 01/15/23 17:15: Urine Color Yellow, Urine Clarity Sl. Cloudy, Urine pH 8.0, Ur Specific [place] 1.015, Urine Protein 15 H, Urine Glucose (UA) Normal, Urine Ketones 5 H, Urine Occult Blood 25 H, Urine Nitrite Negative, Urine Bilirubin Negative, Urine Urobilinogen Normal, Ur Leukocyte Esterase 500 H, Urine RBC 0-5 SEEN, Urine WBC >100 SEEN, Ur Squamous Epith Cells 0 SEEN, Urine Bacteria 1+, Urine Mucus RARE 01/15/23 22:51: POC Glucose 133 H 01/16/23 05:56: POC Glucose 91 01/16/23 11:53: POC Glucose 110 H Indicators for Scoring Admitted with or Primary Diagnosis of CVA/Stroke: No Hx of CVA/Stroke: No Physical Exam Const alert, oriented x3 and no apparent distress Constitutional Narrative: Emaciated, very soft spoken, diffuse muscle contraction General Appearance: cooperative; Negative for in distress, ill appearing or diaphoretic Orientation / Consciousness: awake, oriented to person, oriented to place and oriented to time Exam Limitations: Negative for altered mental status HEENT normocephalic, head/scalp atraumatic, oropharynx normal and dentition normal Head and Scalp: normocephalic and atraumatic Face and Sinus: normal facial exam Mouth: dry mucous membranes Eyes PERRL General Eye: normal appearance of both eyes Conjunctiva: conjunctiva normal Sclera: sclera normal Pupil: PERRL Chest inspection of chest normal Chest: abnormal inspection of the chest and symmetrical chest wall rise Resp normal respiratory effort, normal air movement, no use of accessory muscles and clear to auscultation bilaterally Resp Narrative: wearing oxygen Effort and Inspection: able to speak in complete sentences and symmetric chest movement; Negative for respiratory distress or audible wheezes Auscultation: clear to auscultation bilaterally Cardio regular rate, regular rhythm and no murmurs Cardio Narrative: Distant heart sounds Rate: regular rate Rhythm: regular rhythm Heart Sounds: Negative for murmur GI normal to inspection, nondistended, normoactive bowel sounds, soft to palpation,non-tender and non-distended GI Narrative: Peg tube in place. Dressing is clean, dry and intact Auscultation: normoactive bowel sounds Palpation: soft; Negative for tender or guarding Extremity normal to inspection Extremity Narrative: SCDs in place General Extremity: Negative for edema Skin no rashes or lesions noted Lesions: no lesions Rashes: no rashes Neuro oriented x3 Sensorium / Orientation: awake, alert, oriented to person, oriented to place andoriented to time Speech: speech normal Psych mental status grossly normal, cooperative, affect normal and speech normal Appearance: grossly normal Attitude: calm Assessment & Plan Assessment/Plan (1) Debility: PLAN: Will continue with PT/OT and follow up on findings and recommendations. Continue with PRN pain management, bowel regimen and fall precautions. (2) Parkinson disease: QUALIFIERS: Dyskinesia presence: with dyskinesia Fluctuating manifestations: unspecified whether manifestations fluctuate Qualified Code(s):G20.B1 - Parkinson's disease with dyskinesia, without mention of fluctuations PLAN: As above. Will continue home medications. Will continue baclofen to helpwith muscle spasms and contractility. Patient denies any pain associated with these. (3) Oropharyngeal dysphagia: PLAN: PEG tube in place. Speech therapy following. His diet has been changed to full thin liquids due to concern of aspiration. Will continue with isosource1.5 [id number] every 4 hours. Will also continue with H20 50cc before and after feeds. (4) S/P percutaneous endoscopic gastrostomy (PEG) tube placement: PLAN: As above. Patient is currently tolerating tube feeds well. (5) Muscle spasm: PLAN: As above. Continue with baclofen. Will continue to monitor and adjust asneeded. (6) Severe protein-calorie malnutrition: PLAN: As above. (7) Esophagitis: PLAN: Will continue protonix 40mg BID (8) Overactive bladder: PLAN: Continue home medications including myrbetriq and solifenacin. (9) HTN (hypertension): QUALIFIERS: Hypertension type: essential hypertension Qualified Code(s): I10 - Essential (primary) hypertension PLAN: Blood pressure slightly elevated currently. Patient hasn't been on medications following weight loss. Will continue with PRN hydralazine and monitor. (10) BPH (benign prostatic hyperplasia): QUALIFIERS: Lower urinary tract symptom presence: symptoms absent Qualified Code(s): N40.0 - Benign prostatic hyperplasia without lower urinary tract symptoms PLAN: Stable. No current symptoms. (11) DMII (diabetes mellitus, type 2): QUALIFIERS: Diabetes mellitus complication status: without complication Diabetes mellitus senior care insulin use: without lobsterman use Qualified Code(s): E11.9 - Type 2 diabetes mellitus without complications PLAN: Patient hasn't been on diabetic medications since his weight loss. Will continue with glucose checks and add SSI as needed. Last A1c was out of diabetic range at 5.6. Glucose was 110 this morning. Charges/Coding Visit Charges Inpatient E&M: 98845 Subs Hosp L2 01/16/23 1406 <Electronically signed by Nicolasa Willingham MD> Cosigner Signature (if applicable): CC: ~ Signed [facility] Work Phone: 1(992) 122-980311-30-2023 Miscellaneous Notes* Telephone Encounter - Delmi Bledsoe - 01/16/2023 11:03 AM EST Pt's requesting refill as follows: Last FUV Dec 2022 with [facility]. Barker - pharmacy change Requested Prescriptions Pending Prescriptions Disp Refills amantadine HCl (SYMMETREL) 100 mg capsule 30 capsule 11 Sig: Take 1 capsule by mouth once daily. Upon approval, script will be sent electronically to the patient's pharmacy. Delmi Andujar, Hiv/Aids Care Nurse III [facility] History and physical note Author Nicolasa Willingham [facility] January 15, 2023 3:13pm Note Date/Time January 15, 2023 11:09am [facility] Medical Records Department [address] [place] [address] Post Admission Physician Pasha 01/15/23 1104 MR#: [id number] Acct: [id number] Name: KATHARINE LARSEN Rep #:[id number] : 1950 72 From: Nicolasa Willingham MD PCP: Dr. Nico Schmidt MD Status:ADM I N Location: [place] [address] Admission Information Primary Diagnosis:: Debility, dysphagia, esophagitis, Parkinson's Status Changes from Prescreening?: No changes Identified Actual Problem List:: Falls, Skin Intergrity, Bowel, Constipation and Mobility Impaired Potential Problem List:: DVT, Infection, UTI, Aspiration, Falls, Skin Integrity and Depression Risk of Complications DVT: Sequential Compression Device Infection: Clinical Staff to Monitor for S/S of infection: and S/S of infection include fever, redness, warmth, etc. Urinary Tract Infection: Monitor for frequency, burning, discomfort, or incontinence. and Nursing will obtain urine sample for urinalysis and C&S when ordered. Aspiration: Clinical staff will monitor for coughing, drooling, congestion., Speech will evaluate swallowing and dsyphasia. and Nursing will monitor patient swallowing during meals. Falls: Patient will be placed on Fall Precautions as indicated per protocol. Skin Breakdown: Nursing will assess skin daily using assessment tool. and Nursing will place on Skin Breakdown Precautions as indicated. Pain: Clinical staff will assess patient's pain level per protocol. Plan of Care Patient requires physician specializing in physical medicine and rehab oversightto provide close medical supervision of rehab issues including: Pain Management,Medical and co-morbidity Management, Rehabilitation Leadership and Coordination of treatment team Patient needs Physical Therapy: For a minimum of 1 hour and At least 5 out of 7 days Patient needs Physical Therapy to improve:: Mobility, Strengthening and ROM Patient needs Occupational Therapy: For a minimum of 1 hour and At least 5 out of 7 days Patient needs Occupational Therapy to improve ADL's incl.: Eating, Grooming, Bathing, Dressing and Toileting Patient requires speech therapy: For a minimum of 1 hour and At least 5 out of 7days Patient requires speech therapy for: Swallowing Patient requires 24/7 Rehabilitation Nursing for: Pain Issues, Identifying and preventing risk factors, Assisting with ambulation, transfer, and all ADL's, Family teaching, Providing safe environment, Bowel and Bladder Issues, Skin integrity and Medication Management Patient needs Receiving Lead/ Case Management for: Discharge Planning, Arranging Home Equipment or Services and Family Interventions Patient needs Dietary and Nutrition Services for: Adequate Nutrition and Nutritional Supplements Goals Patient will remain: free from falls and or injury at time of discharge. Patient will perform bed mobility at: - (Mod A of two) Patient will complete transfers from bed to chair at: - (Mod A of two) Patient will ambulate: - (25 feet with min assist of one using WW) Patient will complete upper body dressing at: - (Min A) Patient will complete lower body dressing at: - (Mod A) Patient will complete toileting at: - (Mod A) Patient will perform bathing at: - (Mod A) Patient will complete grooming at: - (Setup) Patient will have pain level of: of 3 or less Patient's skin will: free from infection. Patient will receive: adequate nutrition. Discharge Planning Pt Prognosis for Sig. Practical Improv. w/in Reasonable Time: Fair Estimated Length of stay (days): 14 Anticipated D/C Destination: Home w/ family or friends Visit Charges Inpatient E&M: 16687 Init Hosp L3 01/15/23 1513 <Electronically signed by Nicolasa Willingham MD> Cosigner Signature (if applicable): CC: ~ Signed [facility] Work Phone: 1(667) 346-269711-29-2023 History and physical note Author Nicolasa Willingham [facility] January 15, 2023 2:59pm Note Date/Time January 15, 2023 9:31am [facility] Medical Records Department [address] [place] [address] History & Physical Exam 01/15/23 0911 MR#: [id number] Acct: [id number] Name: KATHARINE LRASEN Rep #:[id number] : 1950 72 From: Nicolasa Willingham MD PCP: Dr. Nico Schmidt MD Status:ADM I N Location: [place] [address] Nicolasa Willingham MD on 01/15/23 at 1459 Addendum Addendum - Pressure sore not appreciated by wound care nurse on assessment. 01/15/23 1459<Electronically signed by Nicolasa Willingham MD> Cosigner Signature (if applicable): cc: Dr. Nicolasa Willingham MD; Dr. Nico Schmidt MD ~* Signed HPI - General General Date of Admission: 01/14/23 Date of Service: 01/15/23 Chief Complaint: Dysphagia, Esophagitis, Parkinson's disease - Generalized weakness HPI Narrative KATHARINE LARSEN, is a 72 M with extensive PMH of Parkinson's disease, DM2, HTN, BPH, MYRIAM and overactive bladder who presented to the ED at [facility] on 12/25 with complaints of weakness and dysphagia which had been progressively worsening over the prior week. In the ED, imaging and labs were obtained which showed a slightly elevated creatinine level and WBC. He was given IVF, however, due to his weakness, it was felt he would benefit from admission. He was transferred to [facility] for further management. During his admission, his Parkinson medications were adjusted. He underwent an EGD for his dysphagia which showed esophagitis and gastritis and was started on PPI therapy. He continued to have problems with dysphagia and, on 01/01, underwent a PEG tube placement and was later started on tube feeds. His admission was complicated further by a rash from adhesives, requiring steroid therapy, muscle spasms as well as constipation. The patient clinically improved. Therapy saw the patient who felt he would benefit from rehab. Once stable, he was transferred to [facility] inpatient rehab for 3 hours of daily rehab and strengthening with a goal to return home with his . The patient reports that he is feeling tired. He doesn't feel his occupational therapy went well this morning. He denies any pain or concerns at this time. [facility] Medical History BPH (benign prostatic hyperplasia) Cellulitis Cellulitis Closed dislocation finger, proximal interphalangeal joint, traumatic Closed traumatic nondisplaced fracture of four ribs of right side Difficulty balancing when standing DMII (diabetes mellitus, type 2) History of Parkinson's disease HLD (hyperlipidemia) HTN (hypertension) Parkinson disease Parkinson's disease Home Medications amantadine HCl 100 mg capsule 100 mg PO DAILY PD 11/16/20 [History Last Taken 07/23/22] rasagiline 1 mg tablet 1 mg PO DAILY PARKINSONS 11/16/20 [History Last Taken 07/23/22] Myrbetriq 50 mg PO DAILY@1400 OAB 07/23/22 [History Last Taken Unknown] acetaminophen 325 mg tablet 650 mg PO Q4H PRN pain 01/14/23 [History Last Taken Unknown] carbidopa 25 mg-levodopa 100 mg tablet 1 tab PO DAILY@2300 PD 01/14/23 [History Last Taken Unknown] carbidopa 25 mg-levodopa 100 mg tablet 3 tab PO TID@0800,1200,1700 pd 01/14/23 [History Last Taken Unknown] hydralazine 10 mg tablet 10 mg PO TID PRN systolic bp greater than 190 01/14/23 [History Last Taken Unknown] miconazole nitrate 2 % topical powder (Antifungal (miconazole)) 1 applic topicalBID back rash 01/14/23 [History Last Taken Unknown] mirabegron 50 mg tablet,extended release 24 hr (Myrbetriq) 50 mg PO DAILY@1400 OAB 01/14/23 [History Last Taken Unknown] pantoprazole 40 mg tablet,delayed release (Protonix) 40 mg PO BID@0600,1600 gerd01/14/23 [History Last Taken Unknown] polyethylene glycol 3350 17 gram/dose oral powder (Miralax) 17 g PO DAILY constipation 01/14/23 [History Last Taken Unknown] sennosides 8.6 mg-docusate sodium 50 mg tablet (Senna-Time S) 1 tab-cap PO BID constipation 01/14/23 [History Last Taken Unknown] solifenacin 10 mg tablet 10 mg PO DAILY OAB 01/14/23 [History Last Taken Unknown] Allergy/AdvReac Type Severity Reaction Status Date / Time Penicillins [PCN] Allergy Unknown Verified 12/25/22 13:42 Family History (Updated 01/15/23 @ 10:[address] 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 Smoking Status: Never smoker alcohol intake: never substance use type: does not use and former substance user Date of last use: 1974 Constitutional Constitutional: Reports anorexia and fatigue; Denies fever(s) or weakness Eyes Eyes: Denies change in vision ENT HEENT: Reports abnormal hearing, dysphagia and nasal congestion; Denies headache(s) or sore throat Cardiovascular Cardiovascular: Denies chest pain, edema, palpitations or syncope Respiratory/Chest Respiratory/Chest: Denies cough, shortness of breath at rest or shortness of breath with exertion Gastrointestinal Gastrointestinal: Reports constipation; Denies abdominal pain, diarrhea, nausea or vomiting Genitourinary Genitourinary: Denies dysuria, urinary frequency, urinary hesitancy or urinary urgency Musculoskeletal Musculoskeletal: Reports muscle weakness; Denies back pain or extremity pain Integumentary Integumentary: Denies rash Neurologic Neurologic: Reports abnormal gait, dizziness, numbness and tingling; Denies confusion, headache(s) or weakness Psychiatric Psychiatric: Reports depression; Denies anxiety or suicidal ideation Vital Signs Vital Signs Vital Signs: 01/14/23 22:21 01/14/23 23:35 01/15/23 08:15 Temperature 97.8 F Temperature Source Oral Pulse Rate 75 74 Respiratory Rate 18 Respiratory Effort Normal Non-Labored Respiratory Depth Normal Respiratory Pattern Normal Blood Pressure 140/80 H Blood Pressure Mean 100 Blood Pressure Source Monitor Blood Pressure Position Semi-Fowlers Blood Pressure Location Left Arm Pulse Ox 99 Oxygen Delivery Method Room Air Room Air Weight Weight: 112 lb 6.972 oz Body Mass Index (BMI) 17.6 Indicators for Scoring Admitted with or Primary Diagnosis of CVA/Stroke: No Hx of CVA/Stroke: No Physical Exam Const alert, oriented x3 and no apparent distress Constitutional Narrative: Emaciated, very soft spoken, diffuse muscle contraction General Appearance: cooperative; Negative for in distress, ill appearing or diaphoretic Orientation / Consciousness: awake, oriented to person, oriented to place and oriented to time Exam Limitations: Negative for altered mental status HEENT normocephalic, head/scalp atraumatic, oropharynx normal and dentition normal Head and Scalp: normocephalic and atraumatic Face and Sinus: normal facial exam Mouth: dry mucous membranes Eyes PERRL General Eye: normal appearance of both eyes Conjunctiva: conjunctiva normal Sclera: sclera normal Pupil: PERRL Chest inspection of chest normal Chest: abnormal inspection of the chest and symmetrical chest wall rise Resp normal respiratory effort, normal air movement, no use of accessory muscles and clear to auscultation bilaterally Resp Narrative: wearing oxygen Effort and Inspection: able to speak in complete sentences and symmetric chest movement; Negative for respiratory distress or audible wheezes Auscultation: clear to auscultation bilaterally Cardio regular rate, regular rhythm and no murmurs Cardio Narrative: Distant heart sounds Rate: regular rate Rhythm: regular rhythm Heart Sounds: Negative for murmur GI normal to inspection, nondistended, normoactive bowel sounds, soft to palpation, non-tender and non-distended GI Narrative: Peg tube in place. Dressing is clean, dry and intact Auscultation: normoactive bowel sounds Palpation: soft; Negative for tender or guarding Extremity normal to inspection Extremity Narrative: SCDs in place General Extremity: Negative for edema Skin no rashes or lesions noted Skin Narrative: Unable to assess reported pressure ulcer Lesions: no lesions Rashes: no rashes Neuro oriented x3 Sensorium / Orientation: awake, alert, oriented to person, oriented to place and oriented to time Speech: speech normal Psych mental status grossly normal, cooperative, affect normal and speech normal Appearance: grossly normal Attitude: calm Results Medical Records Data Attestation: I reviewed the patient's medical records Lab / Micro Data Attestation: I reviewed the patient's lab results. 01/15/23 05:18 01/15/23 05:18 Labs: Laboratory Results - last 24 hr 01/15/23 05:18: WBC 10.3, RBC 3.86 L, Hgb 11.5 L, Hct 36.4 L, MCV 94.3 H, MCH 29.8, MCHC 31.6 L, RDW Std Deviation 52.0 H, RDW Coeff of Lexii 15.3 H, Plt Count 379, MPV 10.9, Sodium 136, Potassium 4.2, Chloride 102, Carbon Dioxide 35.0 H, Anion Gap -1 L, BUN 24 H, Creatinine 0.97, Estim Creat Clear Calc 48.20, Est GFR (MDRD) Af Amer 97, Est GFR (MDRD) Non-Af 80, BUN/Creatinine Ratio 24.7 H, Glucose 99, Calcium 8.4 L, Phosphorus 2.4 L, Magnesium 3.2 H, Total Bilirubin 0.40, AST 10 L, ALT < 6 L, Alkaline Phosphatase 77, Total Protein 6.0 L, Albumin 2.4 L, Globulin 3.6, Albumin/Globulin Ratio 0.7 L 01/15/23 05:34: POC Glucose 104 Assessment & Plan Assessment/Plan (1) Debility: PLAN: Will admit to the inpatient rehab for physical and occupational therapy. Will continue with 3 hours of daily therapy for strengthening with a goal to return home with patient's . Will continue with pain control as needed, a bowel regimen and fall precautions. DVT prophylaxis with ambulation and SCDs. Patient will need to follow up with GI, Neurology and his PCP, Dr. Yu upon discharge from rehab unit. Patient wishes to be a full code. (2) Parkinson disease: QUALIFIERS: Dyskinesia presence: with dyskinesia Fluctuating manifestations: unspecified whether manifestations fluctuate Qualified Code(s): G20.B1 - Parkinson's disease with dyskinesia, without mention of fluctuations PLAN: As above. Will continue home medications. Will resume baclofen which was being used at [facility] to help with muscle spasms and contractility. Patient denies any pain associated with these. (3) Oropharyngeal dysphagia: PLAN: PEG tube in place. Speech therapy consult. Will continue with isosource 1.5 2i001el every 4 hours. Will also continue with H20 50cc before and after feeds. Patient may continue with soft/bite sized fiber controlled diet with thinned liquids. (4) S/P percutaneous endoscopic gastrostomy (PEG) tube placement: PLAN: As above. Patient is currently tolerating tube feeds well. (5) Muscle spasm: PLAN: As above. Baclofen resumed. Will continue to monitor and adjust as needed. (6) Severe protein-calorie malnutrition: PLAN: As above. (7) Esophagitis: PLAN: Will continue protonix 40mg BID (8) Overactive bladder: PLAN: Continue home medications including myrbetriq and solifenacin. (9) HTN (hypertension): QUALIFIERS: Hypertension type: essential hypertension Qualified Code(s): I10 - Essential (primary) hypertension PLAN: Blood pressure shows fair control. Patient hasn't been on medications following weight loss. Will continue with PRN hydralazine and monitor. (10) BPH (benign prostatic hyperplasia): QUALIFIERS: Lower urinary tract symptom presence: symptoms absent Qualified Code(s): N40.0 - Benign prostatic hyperplasia without lower urinary tract symptoms PLAN: Stable. No current symptoms. (11) Hyponatremia: PLAN: Resolved. Most recent sodium level was 136. Will continue to monitor. (12) DMII (diabetes mellitus, type 2): QUALIFIERS: Diabetes mellitus complication status: without complication Diabetes mellitus lobsterman insulin use: without senior care use Qualified Code(s): E11.9 - Type 2 diabetes mellitus without complications PLAN: Patient hasn't been on diabetic medications since his weight loss. Will continue with glucose checks and add SSI as needed. Last A1c was out of diabetic range at 5.6. (13) Stage II pressure sore: QUALIFIERS: Pressure injury location: sacral region Qualified Code(s): L89.152 - Pressure ulcer of sacral region, stage 2 PLAN: Could not assess on exam today. Will continue with wound care, close monitoring and frequent repositioning. Charges/Coding Visit Charges Inpatient E&M: 21390 Init Hosp L3 01/15/23 1055 <Electronically signed by Nicolasa Willingham MD> Cosigner Signature (if applicable): CC: Dr. Nicolasa Willingham MD; Dr. Nico Schmidt MD~ Signed [facility] Work Phone: [phone]) 926-253811-29-2023 [facility] Medical Records Department [address] [place] [id number] History Physical Exam 01/15/23 0911 MR#: [id number] Acct: [id number] Name: KATHARINE LARSEN Rep #: [id number] : 1950 72 From: Nicolasa Willingham MD PCP: Dr. Nico Schmidt MD Status:ADM IN Location: [place] [address] Nicolasa Willingham MD on 01/15/23 at 8246 Addendum Addendum - Pressure sore not appreciated by wound care nurse on assessment. 01/15/23 1453 Cosigner Signature (if applicable): cc: Dr. Nicolasa Willingham MD; Dr. Nico Schmidt MD * Signed [facility] - General General Date of Admission: 01/14/23 Date of Service: 01/15/23 Chief Complaint: Dysphagia, Esophagitis, Parkinson's disease - Generalized weakness HPI Narrative KATHARINE LARSEN, is a 72 M with extensive PMH of Parkinson's disease, DM2, HTN, BPH, MYRIAM and overactive bladder who presented to the ED at [facility] on 12/25 with complaints of weakness and dysphagia which had been progressively worsening over the prior week. In the ED, imaging and labs were obtained which showed a slightly elevated creatinine level and WBC. He was given IVF, however, due to his weakness, it was felt he would benefit from admission. He was transferred to [facility] for further management. During his admission, his Parkinson medications were adjusted. He underwent an EGD for his dysphagia which showed esophagitis and gastritis and was started on PPI therapy. He continued to have problems with dysphagia and, on 01/01, underwent a PEG tube placement and was later started on tube feeds. His admission was complicated further by a rash from adhesives, requiring steroid therapy, muscle spasms as well as constipation. The patient clinically improved. Therapy saw the patient who felt he would benefit from rehab. Once stable, he was transferred to [facility] inpatient rehab for 3 hours of daily rehab and strengthening with a goal to return home with his . The patient reports that he is feeling tired. He doesn't feel his occupational therapy went well this morning. He denies any pain or concerns at this time. [facility] Medical History BPH (benign prostatic hyperplasia) Cellulitis Cellulitis Closed dislocation finger, proximal interphalangeal joint, traumatic Closed traumatic nondisplaced fracture of four ribs of right side Difficulty balancing when standing DMII (diabetes mellitus, type 2) History of Parkinson's disease HLD (hyperlipidemia) HTN (hypertension) Parkinson disease Parkinson's disease Home Medications amantadine HCl 100 mg capsule 100 mg PO DAILY PD 11/16/20 [History Last Taken 07/23/22] rasagiline 1 mg tablet 1 mg PO DAILY PARKINSONS 11/16/20 [History Last Taken 07/23/22] Myrbetriq 50 mg PO DAILY@1400 OAB 07/23/22 [History Last Taken Unknown] acetaminophen 325 mg tablet 650 mg PO Q4H PRN pain 11/28/23 [History Last Taken Unknown] carbidopa 25 mg-levodopa 100 mg tablet 1 tab PO DAILY@2300 PD 01/14/23 [History Last Taken Unknown] carbidopa 25 mg-levodopa 100 mg tablet 3 tab PO TID@0800,1200,1700 pd 01/14/23 [History Last Taken Unknown] hydralazine 10 mg tablet 10 mg PO TID PRN systolic bp greater than 190 01/14/23 [History Last Taken Unknown] miconazole nitrate 2 % topical powder (Antifungal (miconazole)) 1 applic topical BID back rash 01/14/23 [History Last Taken Unknown] mirabegron 50 mg tablet,extended release 24 hr (Myrbetriq) 50 mg PO DAILY@1400 OAB 01/14/23 [History Last Taken Unknown] pantoprazole 40 mg tablet,delayed release (Protonix) 40 mg PO BID@0600,1600 gerd 01/14/23 [History Last Taken Unknown] polyethylene glycol 3350 17 gram/dose oral powder (Miralax) 17 g PO DAILY constipation 01/14/23 [History Last Taken Unknown] sennosides 8.6 mg-docusate sodium 50 mg tablet (Senna-Time S) 1 tab-cap PO BID constipation 01/14/23 [History Last Taken Unknown] solifenacin 10 mg tablet 10 mg PO DAILY OAB 01/14/23 [History Last Taken Unknown] Allergy/AdvReac Type Severity Reaction Status Date / Time Penicillins [PCN] Allergy Unknown Verified 12/25/22 13:42 Family History (Updated 01/15/23 @ 10:[address] 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 Smoking Status: Never smoker alcohol intake: never substance use type: does not use and former substance user Date of last use: 1974 ROS Constitutional Constitutional: Reports anorexia and fatigue; Denies fever(s) or weakness Eyes Eyes: Denies change in vision ENT HEENT: Reports abnormal hearing, dysphagia and nasal congestion; Denies headache(s (more content not included)...[facility]11-28-2023 NoteHNO ID: [id number] Author: Spring Josue RN Service: Nursing Author Type: Registered Nurse Type: Nursing Progress Note Filed: 01/14/2023 4:23 PM Note Text: Call placed to [facility] [place], report given to nurse Isabel.[facility] [id number] NoteBlanchard Valley Health System [facility] [id number] [facility]11-25-2023 [facility]11-25-2023 [facility]11-24-2023 [facility]11-23-2023 [facility]11-22-2023 Miscellaneous Notes * Telephone Encounter - Yamileth Noriega RN - 01/08/2023 5:00 PM EST Palliative Medicine Referral Assessment Referral Accepted: TBD in hospital Yamileth Noriega RN January 08, 2023 * Telephone Encounter - Nadeem Hernandez - 01/08/2023 2:38 PM EST REFERRAL FOR PALLIATIVE CARE AT HOME Date Referral Received: 01/08/23 Date of : 1950 Age: [age] year old Patient has PCP: Nico Schmidt MD Visit address from [facility]: [address] [place], [place] [id number] Reason for consult: Goals of care Referral Source: [facility] to [facility] Name of Physician who gave the order: Dr Jakob Chino Other services ordered: Palliative care Primary Insurance Company: Payor: MEDICARE / Plan: MEDICARE A AND B / Product Type: Medicare / Primary Insurance ID Number: [id number] Referral Info Complete. Right click to reselect and continue Referral documented in this encounterDoctors Hospital11-22-2023 [facility] 01-07-2023 [facility]11-21-2023 NoteHNO ID: [id number] Author: Nereida Gilliam RN Service: ? Author Type: Registered Nurse Type: Nursing Progress Note Filed: 01/07/2023 9:33 AM Note Text: BP concerns voiced to Dr. Oro. No further orders at this time. Will continue to monitor.[facility] [id number] [facility]11-20-2023 Note [facility] [id number] NoteBlanchard Valley [facility] HospitalTcoxfdvw45-12-9271 [facility] 01-03-2023 NoteBlanchard Valley [facility] [id number] NoteBlanchard Valley [facility] HospitalSiwcsltm07-52-8488 Note [facility] [id number] NoteBlanchard Valley [facility] HospitalUkgzsysx47-11-1312 Miscellaneous Notes* Telephone Encounter - Hilda Florez MA - 12/31/2022 1:34 PM EST Spoke with . Pt is still in [facility] for swallowing issues. Pt advised that GI told her pt should be in either Palliative or Hospice due to symptoms She advised They no nothing about Parkinson's. She is upset/frustrated and is looking for guidance. She would like you to call her on her cell at [phone] documented in this encounterDoctors Hospital11-13-2023 [facility] 12-29-2022 [facility]11-11-2023 [facility]11-10-2023 Note [facility] [id number] NoteBlanchard Valley [facility] System [facility] [id number] NoteBlanchard Valley [facility] 12-26-2022 Miscellaneous Notes* Telephone Encounter - Nikkie Newton RN - 12/26/2022 3:24 PM EST Mrs. Larsen was informed Dr. John is in touch with consulting neurologist. Mrs. Larsen states she feels better knoeing Dr. John is involved. * Addendum Note - Juan R John MD - 12/26/2022 2:56 PM ESTAddended by: JUAN R JOHN on: 12/26/2022 02:56 PM Modules accepted: Orders * Telephone Encounter - Juan R John MD - 12/26/2022 2:54 PM EST I started with a message to the rehabilitation consultant Neurologist. * Telephone Encounter - Sowmya Spencer - 12/26/2022 2:34 PM EST Patients calling to say he was given Sinemet instead of Rytary in the hospital and she isn't sure what to do. She repeated that Dr. John didn't want any medications changed. * Telephone Encounter - Nikkie Newton RN - 12/26/2022 10:59 AM EST I spoke with Mrs. Larsen and she is in agreement with Dr. John - she does not want Kavon's medication changed at this time. She stated she wanted to make Dr. John aware of Kavon's ED admission in case there are any questions. * Telephone Encounter - Delmi Bledsoe - 12/26/2022 8:27 AM EST Pt's phoned stating that Katharine is in the ED and they are wanting to possibly change medications. He is currently at [facility] and she is wanting to let Dr. John know and maybe have him check in with the attending physician. He was having rigidity, and leg spasms and also had a fever. They did UA at [place] before he was transferred to [place] and then [place] said this was a little dirty and they were going to do another. [phone] ok to leave message documented in this encounterDoctors Hospital11-07-2023 History of Present illness Narrative* Juan R John MD - 12/24/2022 11:20 AM EST [facility] - FOLLOW UP EVALUATION - VIRTUAL VISIT I had the pleasure of seeing Mr. Larsen for follow-up today. He is a 72 year old left-handed male with a history of Parkinson's disease complicated by motor fluctuations and dyskinesia since 2012. He is seen with his . We had a visit using: [employer] I have communicated my name and active licensure. The patient's identity and physical location wereverified at the time of this visit. Either the patient or their legal customer service representative teller has been informed of the risks and benefits of -- and alternatives to -- treatment through a remote evaluation andconsents to proceed with the evaluation remotely. Subjective During his previous visit the following plan was made: Previous plan-06/20/2022 Visit: Parkinson's disease - Stable, no changes. Overactive bladder - as above. will see what Urology says. Insomnia- try the trazodone 50 mg again. Let see if you tolerate if you stick with it a little while. Nortriptyline can effect memory and increase risk of hallucinations. Interval History He hasn't been eating well in 2 weeks. He has been having problems swallowing. He has speech therapy through home care but they singed off and he wasn't having this problem then. He had a modified barium swallow at [place] 2 years ago. He gets leg spasms. His medications last dose to dose and the leg spasms are unpredictable. Movement Disorders Medications Schedule - as of the start of the visit: Medications 8AM 100AM 600PM Bedtime Rytary 145 3 3 3 1 rasagiline 1.0 mg 1 Amantadine 100 mg 1 Parkinson's Motor Complications Medication benefit onset: 30 minutes Medication duration: 4 hours Wearing off: yes Painful off-state dystonia: yes Dyskinesia: yes Prior Anti-Parkinson Therapies Amantadine IR Carbidopa/Levodopa ER (Rytary) Rasagiline ALLERGIES Allergen Reactions Penicillins Unknown No current facility-administered medications for this visit. No current outpatient medications on file. Facility-Administered Medications Ordered in Other Visits Medication Dose Route Frequency rasagiline 1 mg tab(s) (AZILECT) 1 mg ORAL DAILY mirabegron 50 mg ER 24 hour tablet (MYRBETRIQ) 50 mg ORAL DAILY (2 PM) carbidopa-levodopa 36.25-145 mg 3 capsule (RYTARY) 3 capsule ORAL Daily carbidopa-levodopa 36.25-145 mg 1 capsule (RYTARY) 1 capsule ORAL Daily amantadine HCl 100 mg cap(s) (SYMMETREL) 100 mg ORAL DAILY (6 AM) NaCl 0.9% iv flush bag 20 mL INTRAVENOUS PRN dextrose 40 % 15 g 15 g ORAL PRN Or glucagon 1 mg injection 1 mg INTRAMUSCULAR PRN Or dextrose 10% iv bolus 12.5 g INTRAVENOUS PRN trospium 10 mg tab(s) (SANCTURA) 10 mg ORAL AT BEDTIME carbidopa-levodopa 36.25-145 mg 4 capsule (RYTARY) 4 capsule ORAL Daily Questionnaires: In addition, the following areas that may be affected by abnormal involuntary movements were evaluated: Daily activities Difficulties with eating: Yes (slight) Difficulties in dressing: Yes (severe) Difficulties with hygiene activities: Yes (mild) Difficulties with handwriting: Yes (severe) Difficulties with doing hobbies and other activities: Yes (slight) Difficulties turning in bed: Yes (mild) Difficulties getting out of bed, car or chair: Yes (severe) Tremors/Gait/Balance Shaking or tremors: Yes (mild) Walking and balance problems: Yes (severe) Number of falls in the Last Month: 0 Gait freezing: Yes (moderate) Autonomic/Pain Lightheadeness on standing: Yes (slight) Urinary problems: Yes (moderate) Constipation problems: Yes (mild) Pain and other sensations: Yes (moderate) Speech/Swallowing Speech problems: Yes (severe) Droolin (none) Chewing and swallowing problems: Yes (slight) Sleep/Fatigue Sleep problems: Yes (severe) Daytime sleepiness: Yes (moderate) Fatigue: Yes (mild) Mood/Behavior Depression: PHQ-9 Score: 14 usually representing moderate (10-14) depression. Anxiety: KAVIN-7 Total Score: 4 usually representing no significant (0-4) anxiety. Finally, the following table shows the patient's overall global physical and mental health using the PROMIS scale: PROMIS-10 Flowsheet Row Distance Health from 12/24/2022 in [facility]rological [facility] Visit from 06/20/2022in Neurology Global Physical Health T Score 37.4 39.8 Global Mental Health T Score 31.3 50.8 0-10 Standard Pain Scale 3 4 *PROMIS-10 scoring scale: mean = 50, over 50 is above average, under 50 is below average Assessment and Plan: Assessment Mr. Larsen is a left-handed 72 year old male with idiopathic Parkinson's disease and frequent falls. The following are the current problems noted and addressed during this visit: Parkinson's disease without dyskinesia, with fluctuating manifestations (primary encounter diagnosis) Dysphagia, unspecified type Plan 12/24/2022 Visit: Dysphagia - add on speech therapy for homecare. Continue PT. Leg cramps Handicap Flower Updated Movement Disorder Medication Schedule: Medications 8AM 100AM 600PM Bedtime Rytary 145 3 3 3 1 rasagiline 1.0 mg 1 Amantadine 100 mg 1 Medical Decision Making: Problems: Moderate: 1+ chronic illnesses with change and 2+ stable chronic illnesses Risk: Moderate: Drug management Medical Decision Making Level: 4 - Moderate Thank you for allowing me to be part of the clinical care of this patient! I look forward to continued participation in the patient s care with you. Please do not hesitate to call with any questions. Sincerely, Juan R John MD documented in this encounterDoctors Hospital09-06-2023 Miscellaneous Notes* Telephone Encounter - Kalyani Jeronimo - 10/23/2022 4:47 PM EDT Patient called checking status. He was informed Rx was sent today at 3:50 pm. He will check with pharmacy. * Telephone Encounter - Sowmya Spencer - 10/23/2022 3:07 PM EDT Patient says [facility]'t [facility] it [facility] stock but [facility] does. RX pharmacy changed. * Telephone Encounter - Delmi Bledsoe - 10/23/2022 2:40 PM EDT Pt called to check on script - he needs this MAGGIE and this is a change to a 90- day script. * Telephone Encounter - Call Kalyani Tere - 10/22/2022 3:59 PM EDT Patient phones requesting 90 day refills as follows: When approved Rx esc[facility] to [facility]. 06/20/22 FUV w/BLW Requested Prescriptions Pending Prescriptions Disp Refills carbidopa-levodopa (RYTARY) 36.25-145 mg capsule 1080 capsule 3 Si capsules at 8AM and 4 capsules at 12:30 and 5:30 1 capsules at bedtime Please review and advise. Tere Gonzalezterson Kalyani documented in this encounterDoctors Hospital08-23-2023 Miscellaneous Notes* Telephone Encounter - Nikkie Newton RN - 10/09/2022 9:[address] John: Its not a good choice due to his hallucinations and may worsen memory. Mybertriq or vesicare may betolerated better. Message was left on for Kavon to request a change in his medication from his Urologist from oxybutinin to either Myrbetriq or Vesicare due to potential side effects. * Telephone Encounter - Sowmya Spencer - 10/08/2022 4:40 PM EDT Patient calling to say his Urologist prescribed Oxybutynin 10 mg once daily. He has not started this yet and wants to make sure it's okay with Dr. John before doing so. documented in this encounterDoctors Hospital08-04-2023 History of Present illness Narrative* Carolina Damon MD - 09/20/2022 9:15 AM EDT Images from the original note were not included. [facility] NEUROTOXIN VISIT Date: September 20, 2022 Name: Katharine Larsen SUBJECTIVE: Subjective history Benefit lasted longer. Would like to increase the dose. No side effects. Both sides affected about the same. 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) Date of diagnosis: 11/12/2018 Other treatments that have been tried and failed: Medications for Parkinson's Date of first neurotoxin treatment: 03/08/2019 Type of neurotoxin given: OnabotulinumtoxinA (Botox) Frequency of current neurotoxin treatment: 90 days Estimated frequency and duration of treatment: continue with current injection interval; will reassess after 1 year Last Injection Notes Date of last Injection: 06/06/2022 Type of neurotoxin: OnabotulinumtoxinA (Botox) Total amount injected: 200 units Degree of effectiveness of last injection:70% Duration of effect: 10 week(s) Side effects related to last injection: None Current pain symptoms: No Current functional limitations: moderate Last neurotoxin regimen: Med right left midline Quadratus plantae 35 40 Flexor digitorum brevis 35 40 Total: 150 Questionnaires: Allergies: ALLERGIES Allergen Reactions Penicillins Unknown Current Medications: Current Outpatient Medications Medication Sig MYRBETRIQ 50 mg Tb24 Take 1 tablet by mouth every afternoon. terbinafine HCl (LAMISIL) 250 mg tablet Take by mouth. carbidopa-levodopa (RYTARY) 36.25-145 mg capsule 3 capsules at 8AM, and 4 capsules at 1PM, and at 6PM and 1 at bedtime (Patient taking differently: 3 capsules at 8AM and 4 capsules at 12:30 and 5:30 1 capsules at bedtime) rasagiline (AZILECT) 1 mg tab Take 1 tablet by mouth once daily. amantadine HCl (SYMMETREL) 100 mg capsule Take 1 capsule by mouth twice daily. (Patient taking differently: Take 100 mg by mouth twice daily. TAKING ONCE A DAY) traZODone (DESYREL) 50 mg tablet Take 1 tablet by mouth daily at bedtime. (Patient not taking: Reported on 09/19/2022) tamsulosin (FLOMAX) 0.4 mg cp24 Take 1 capsule by mouth once daily. (Patient not taking: Reported on 09/19/2022) No current facility-administered medications for this visit. OBJECTIVE: BP 158/91 (BP Site: Right Arm, BP Position: Sitting, BP Cuff Size: Regular Adult) Pulse 101 Ht 172.7 cm (5' 8) Wt 58.4 kg (128 lb 12.8 oz) SpO2 98% BMI 19.58 kg/m Other notable exam findings: mild curling of toes both feet. Atropied L calf muscles. Weak left dorsiflexion. Left foot drop when ambulating ASSESSMENT AND PLAN: Mr. 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 Injections are working well. Repeated same injection pattern but increased dose for better efficacy. After obtaining informedconsent, neurotoxin injections were carried out as outlined below. Current Injection Note Type of neurotoxin: OnabotulinumtoxinA (Botox) Total amount drawn: 200 units Total amount injected: 190 units Total amount wasted: 10 units Dilution: 1 cc NSS/100 U Administered with EMG guidance: No Lot#: [id number] Exp Date: 01/2025 Today's neurotoxin regimen: Med right left midline Quadratus plantae 45 50 Flexor digitorum brevis 45 50 Total: 190 Future plan of care: Follow up: 3 months Neurotoxin change: No Dose change:No Carolina Damon MD September 20, 2022 9:18 AM Dept of NEUROLOGY TIME OUT/ PROCEDURE NOTE: Informed consent Katharine Larsen Medical Record: [id number] Procedure: neurotoxin intramuscular injection The risks, benefits and anticipated outcomes of the procedure, the risks and benefits of the alternatives to the procedure and the roles and tasks of the personnel to be involved were discussed with the patient and the patient consents to the procedure and agrees to proceed. I verify that I personally obtained Katharine Newsome Suzie's consent. Carolina Damon MD September 20, 2022 9:18 AM UNIVERSAL PROTOCOL / SAFETY CHECKLIST Procedure to be Performed: neurotoxin injection Sign In: A Moment of CARE was completed. Personnel directly involved wiht the procedure wore the appropriate PPE (Personal Protective Equipment). No special equipment needed. Patient/Surrogate Stated/Verified: Patient name Date of Relative allergies The intended procedure Time Out Communication: Intended patient and procedure match the source documents. Consent documented and matches the intended procedure. No relevant labs, photos, and/or imaging studies were applicable for review. No correct side/site applicable for marking and visibility. Medications required for procedure verified. No fire risk assessment and interventions applicable. No implant(s) inserted. Sign Out: No specimen collected. No instruments, equipment or retained foreign bodies applicable. Post-procedure follow-up management communicated and Plan of Care Visit completed when applicable. -- Carolina Damon MD documented in this encounterDoctors Hospital08-04-2023 Miscellaneous Notes* Telephone Encounter - Amira Dixon MA - 09/20/2022 8:55 AM EDT Patient has been identified by name and date of : Yes Last office visit in this department: 06/20/22 NOV 01/02/23 RX INSTRUCTIONS: Pharmacy initiated this request. No need to notify patient. Patient phones requesting refills as follows: Requested Prescriptions Pending Prescriptions Disp Refills rasagiline (AZILECT) 1 mg tab 90 tablet 3 Sig: Take 1 tablet by mouth once daily. Please review and advise. Amira Dixon MA documented in this encounterDoctors Hospital07-06-2023 [facility] 06-06-2022 Miscellaneous Notes* Telephone Encounter - Amira Dixon MA - 06/06/2022 2:00 PM EDT error documented in this encounterDoctors Hospital03-09-2023 History of Present illness Narrative* SKY Johnson/Derrick - 04/25/2022 5:18 PM EST Episode Visit Count: 1 Therapist That Will Accept/Oversee The Plan Of Care: Tucker Vazquez Start of Care Date: 04/25/22 Onset Date: 12/18/12 Plan of Care Certification Date: 04/25/22 Next Certification Due Date: 06/24/22 Patient Identified by Name and Date of : Yes [facility]ER[facility] OCCUPATIONAL THERAPY RE- EVALUATION PLAN OF CARE: Assessment: Katharine Larsen presents with diagnosis of Parkinson's disease that interferes with dressing, gripping, pinching, carrying (bathing, toileting) . Per family he has regressed with independence with ADLs, functional mobility, and functional balance. He presents with impairments in ADL's, balance, coordination, overall function, posture, range of motion, and strength. PROMIS (Patient-Reported Outcomes Measurement Information System) scores were reviewed and physical function domain identified as a rehabilitation concern. Prognosis for therapy is Good due to: good support system/ coping skills . Documenting therapist recommends admission to acute rehab facility for optimal patient be nefit as pt has a good support system and good motivation toward increased independence. Patient also demonstrates improved activity tolerance from initial evaluation and could tolerate at least 3 hours of therapy per day. Follow up in outpatient after discharge from acute rehab facility. Goals for Episode of Care created on 04/25/22 through 06/24/22 Complete evaluation, admission to acute rehab, and return to outpatient post discharge from acute rehab facility. Patient Goals: admission to acute rehab Planned Interventions, Frequency, and Duration: Current Frequency: 1 visit Duration: 1 visit Total Number of Visits Planned: 1 Planned Treatment Interventions: Therapeutic exercise (87110), Self-long term management (35903), Neuromuscular re-education (47329) PLAN FOR NEXT VISIT: recheck after acute rehab stay Patient demonstrates good understanding of plan of care and treatment. The above goals and plan of care were discussed and agreed upon by patient/family. 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 5 points is clinically meaningfully difference Percentiles provide an indication of how the patient's score ranks in relation to the general population. Higher percentile rankings indicate better function/quality of life. 50th percentile is the average of the general population and indicates half of respondents had a worse score. OBJECTIVE MEASURES WITH LEVEL OF FUNCTION: Hand Strength R Grape Picker Position 2 (lbs): 25 lbs L Grape Picker Position 2 (lbs): 30 lbs R Lateral Pinch (lbs): 11 lbs L Lateral Pinch (lbs): 14 lbs Movement Description Movement Impairment(s): Bradykinetic, Dyskinesia, Tremor Tremor Comments: bilateral UE AROM R UE AROM: prox: 3/4 range, distal WFL L UE AROM: prox: 3/4 range; distal WFL UE and Cervical Strength R UE Strength: 4/5 L UE Strength: 3+/5 Current Activities Of Daily Living Feeding: Modified Independent Grooming: Stand By Assistance (for safety during standing poriton of task) Bathing Upper Body: Minimal Assistance Bathing Lower Body: Minimal Assistance Dressing Upper Body: Moderate Assistance Dressing Lower Body: Maximal Assistance Toileting: Moderate Assistance (to assist with clothing management) Functional Performance Test Results 9 Hole Peg Test Right (seconds): 58.59 9 Hole Peg Test Left (seconds): 136 Box and Blocks Right Box and Blocks (blocks per min): 25 blocks per min Left Box and Blocks (blocks per min): 24 blocks per min Education: Education Learning Preferences: Demonstration, Explanation, Performance, Printed Materials Barriers: None Learning/educational needs: Plan of Care Education Provided: Yes, see treatment interventions for education provided Education Provided To: Patient, Caregiver, Family Education Mode/Type: Demonstration, Explanation/Discussion, Performance Response to Education/Teach Back: States/Identifies, Return Demonstration TREATMENT: OT Treatment Interventions : Self-Usp Management Evaluation Re-evaluation: Performed due to return of patient to therapy for same diagnosis. Self-Usp Management: 1: Pt and family educated in role of OT 2: discussed role of inpatient acute rehabilitation 3: Discussed benefit of exercise in delaying the disease 4: Educated in plan of care Skilled Intervention: Pt and family educated as noted. Billing * Re-Evaluation : 1 Unit Self-Care/Home Management Treatment Minutes: 10 Total Treatment Time Minutes (timed/untimed): 45 SYK Johnson/Derrick documented in this encounterDoctors Hospital03-09-2023 History of Present illness Narrative* Gaylejohann Alicea, PT, DPT - 04/25/2022 5:11 PM EST Episode Visit Count: 1 Start of Care Date: 04/25/22 Patient Identified by Name and Date of : Yes REHABILITATION AND SPORTS THERAPY PHYSICAL THERAPY PROGRESS REPORT PLAN OF CARE UPDATE: Assessment: Katharine Larsen had PD. He demonstrates significant improvement in rising from a chair and walking in the house. Patient continues to present with impairments in balance, flexibility, gait, overall function, posture, range of motion, strength, and spasticity that interfere with rising from a chair, ambulation in the house, stair negotiation, functional mobility, and flexibility. Current prognosis is Good due to: good overall health status, acuteness of condition, good support system/ coping skills . Pt able to tolerate 1.5 hours of treatment with back to back appointments with OT and PT. He will benefit from continued skilled therapy services in the acute care setting in order to have medical management/supervision and to work on functional mobility and the above mentioned deficits. Patient Goals: get back on his feet Patient transferring care to: acute rehab SUBJECTIVE: Patient Reason for Visit: Pt was diagnosed in 2012. Since being out of the hospital (admitted for cellulitis). More freezing difficulty with mobility in general. Has had more slipping offsurfaces falls. uses the walker since last admission. Botox has been helping with pt cramping.. Patient Goals: get back on his feet Functional Limitations: rising from a chair, standing, walking, walking in the house, sitting Prior Level of Function: Required assistance Required assistance with: Ambulation / Mobility, ADL's Prior Functional Level Comments: needs assist with transfers, dressing, and IADL's, uses a ww for ambulation Intake Information: Prescription present Previous Treatment: None Falls Interview: Uses an assistive device, Two or more falls in the last year Falls Intervention: Patient referred for more thorough falls assessment. Reported Movement Impairments: Dyskinesia, Dystonia Reported Speech/Swallowing Difficulties: Hypophonia History of Deep Brain Stimulator (DBS) Implant: No Pain: Pain Pain Level: 0 Post Treatment Pain Post Treatment Pain Level: 0 PROMIS Scales Higher is Better 04/25/2022 Phys Func - Score 31 (moderate dysfunction) Phys Func - Percentile 3 % Self-Eff Symptom - Score 40 (Average) Self-Eff Symptom - Percentile 16 % T-scores: mean of general population = 50. 5 points is clinically meaningfully difference Percentiles provide an indication of how the patient's score ranks in relation to the general population. Higher percentile rankings indicate better function/quality of life. 50th percentile is the average of the general population and indicates half of respondents had a worse score. OBJECTIVE MEASURES WITH LEVEL OF FUNCTION: Posture / Alignment Posture: (elevated shoulders, forward head) LE AROM R Ankle Dorsiflexion: -15 Degrees R Ankle Inversion: 5 R Ankle Eversion: 5 L Ankle Dorsiflexion: -20 Degrees L Ankle Inversion: 10 L Ankle Eversion: 20 LE PROM R Ankle Dorsiflexion: -15 Degrees R Ankle Inversion: 30 Degrees R Ankle Eversion: 15 Degrees L Ankle Dorsiflexion: -15 Degrees L Ankle Inversion: 20 Degrees L Ankle Eversion: 30 Degrees LE Flexibility Flexibility: Quadriceps Flexibility R Quadriceps Flexibility: 90 L Quadriceps Flexibility: 90 LE Strength R Hip Extension: (bridge for 44 seconds) R Hip Flexion (L2): 4/5 R Ankle Dorsiflexion (L4): 2+/5 R Ankle Plantar Flexion: 0/5 R Ankle Inversion: (Unable to get accurate measurement due to dyskinesia/dystonia) R Ankle Eversion: (Unable to get accurate measurement due to dyskinesia/dystonia) L Hip Extension: (bridge for 44 seconds) L Hip Flexion (L2): 4/5 L Ankle Inversion: (Unable to get accurate measurement due to dyskinesia/dystonia) L Ankle Eversion: (Unable to get accurate measurement due to dyskinesia/dystonia) Tone Tone: Spastic, Rigid Spastic Comments: BLEs Rigid Comments: in B ankles Movement Description Movement Impairment(s): Bradykinetic, Dyskinesia, Tremor Bradykinetic Comments: in mobility Dyskinesia Comments: in B legs and feet (writhing dystonia in B ankles with MMT) Mobility Supine To Sit: Minimal Assistance (from flat mat) Sit to Supine: Modified Independent (increaseed time) Sit To Stand: Comments, Minimal Assistance Sit To Stand Comments: unable to stand without hands from lowest mat position, used hands on walker. Once standing without hands on walker, does demonstrate retropulsive COG Stand To Sit: Minimal Assistance, Comments Stand To Sit Comments: uncontrolled descent onto mat Gait Gait: Contact Guard Assistance Gait Distance (feet): 40 Gait Device: Wheeled Walker Gait Deviations: General Deviations General Deviations/Observations: Flexed trunk posture, Fern decreased, Step length decreased (decreased heel to toe pattern, unable to land on heels, walks on the balls of his feet, elevated shoulders (right > left)) Gait Observation: sometimes keeping feet outside of walker (right), turning Balance Static Standing Balance: Comments Static Standing Balance Comments: unable to maintain netural in B ankles Static Sitting Balance: able to maintain sitting balance with back unsupported without hands Dynamic Sitting Balance : uses hands for stability with back unsupported Functional Performance Test Results Assistive Device: Wheeled Walker 10 Meter Walk Test Trial 1 (seconds): 6.28 10 Meter Walk Test Average (m/sec): 0.96 5 Times Sit to Stand Test : 14.2 sec (from lowest mat position using hands on walker) Timed Up and Go (sec): 49.83 sec (freezing with turning to right) TREATMENT: Therapeutic Exercise: 1: Reassessment Skilled Intervention: Patient was educated in proper exercise technique and purpose for exercises. Skilled judgment was provided in selection of appropriate interventions. Patient education as noted. Neuromuscular Re-Education: 1: Outcomes completed Skilled Intervention: Skilled judgment used to assess appropriate program for balance and coordination activity. Education and demonstration for posture and positioning for tone management. Ensured patient safety with use of gait belt Patient education as noted. Billing Therapeutic Exercise Treatment Minutes: 23 Neuromuscular Re-Education Treatment Minutes: 15 Total Treatment Time Minutes (timed/untimed): 38 NELLA Luna Supervising therapist was present and guided the care of the patient for the entire session on thisdate. All documentation was reviewed and agreed upon. Gayle Alicea PT, DPT documented in this encounterDoctors Hospital03-09-2023 Miscellaneous Notes* Telephone Encounter - Gayle Rubi - 04/25/2022 8:45 AM EST Faxed 04-24-22 office note and face sheet to [facility] at [phone]. [address] Vega documented in this encounterDoctors Hospital03-08-2023 Instructions* Patient Instructions* Luther Vega MD - 04/24/2022 3:18 PM EST Frantz from [facility] will contact you about admission Frantz Miller - [phone] documented in this encounterDoctors Hospital03-08-2023 History of Present illness Narrative* Luther Vega MD - 04/24/2022 2:56 PM EST IMPRESSION: Katharine Larsen is a 71 year old male with history of Parkinson's disease and worsened functional abilities at home and increasing falls. Medical/rehab complexity includes diabetes (improved with weight loss), R foot drop, recurrent right leg cellulitis, severe malnutrition with severe weight loss over last 10 years (174lb pt reports), apparent peripheral polyneuropathy with foot deformities and bimal foot drop, potential Achilles tendon shortening, gait with plantarflexion leading to poor balance and higher fall risk. 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 Will review therapy notes, but I have high confidence based on previous therapy evaluations that he will be a good candidate and highly benefit from 2+ week stay at [facility]. He has appropriate diagnosis and medical complexity especially with some undiagnosed neurological findings that can be addressed with PM&R close supervision. Needs workup for cause for peripheral neuropathy presentation. PAD also likely contributing. History of diet controlled diabetes may contribute. Will need EMG and further workup after rehab Will need to see podiatry as well. There is a loom fixer supervisor at the chosen ARF but will also need f/u outpatient for this. Will likely need bimal AFOs and PRAFOs. PT will evaluate at rehab. May need wheelchair evaluation there as well for longer distances. Today pt had rented transport chair to get to appointment. Follows with Dr. Damon for Parkinson's management. We will keep in contact and updates on any potential changes that she might consider given his daily therapy monitoring, might have a more clear idea of medication effectiveness. No orders found for this visit on 04/24/22. Subjective: Patient presents with: Consult Arrives for consideration of rehab. Interested in short stay. Discussed the intensity and benefits.Pt has PT/OT evaluations tomorrow. Discussed multiple concerns. Walks on his toes due to his plantar flexion. High fall risk with multiple falls at home without injury over the past year. Noted a fairly progressive decline over the years including major weight loss due to lack of appetite. Abrupt decline recently without explanation as well. Recent labs/Imaging related to complaint: No new Medications Reviewed terbinafine HCl (LAMISIL) 250 mg tablet Take by mouth. carbidopa-levodopa (RYTARY) 36.25-145 mg capsule 3 capsules at 8AM, and 4 capsules at 1PM, and at 6PM and 1 at bedtime (Patient taking differently: 3 capsules at 8AM and 4 capsules at 12:30 and 5:30 1 capsules at bedtime) rasagiline (AZILECT) 1 mg tab Take 1 tablet by mouth once daily. amantadine HCl (SYMMETREL) 100 mg capsule Take 1 capsule by mouth twice daily. (Patient taking differently: Take 100 mg by mouth twice daily. TAKING ONCE A DAY) senna (SENOKOT) 8.6 mg tab Once a day tamsulosin (FLOMAX) 0.4 mg cp24 Take 1 capsule by mouth once daily. [DISCONTINUED] levodopa (INBRIJA) 42 mg Inhale 2 capsules as instructed as needed. Take as needed up to 5 times daily aspirin, enteric coated (ADULT LOW DOSE ASPIRIN) 81 mg EC tablet Take 1 tablet by mouth once daily. [place] reviewed to confirm/clarify any controlled medications Allergies Reviewed PAST MEDICAL HISTORY: ACTIVE PROBLEM LIST Parkinson's Disease (Hcc) PAST SURGICAL HISTORY Procedure Laterality Date TOE SURGERY HX TONSILLECTOMY & ADENOIDECTOMY <AGE 10 Social History Tobacco Use Smoking status: Never Smokeless tobacco: Never Substance Use Topics Alcohol use: Not Currently Drug use: Not Currently family history includes Diabetes in his father; Hyperlipidemia in his father; Hypertension in his father and mother; Parkinsons Disease in an other family member; TIA in his father; Thyroid in his mother. Review of systems as noted, reviewed, and documented on intake section. Physical Exam: 04/24/22 1439 BP: 145/89 BP Site: Left Arm BP Position: Sitting BP Cuff Size: Regular Adult Pulse: 91 Resp: 16 SpO2: 99% General: no acute distress. Awake, alert. Cardiopulmonary: unlabored breathing. Appears well perfused Abdomen: non-distended, Lower Extremities: no edema, no calf tenderness. Skin: Visualized areas are warm, dry, no jaundice. Poor foot health bilaterally Sitting in wheelchair, difficulty standing but able to with 1 person assist Neuro: Bimal plantar flexion with equinovarus on the right - noted rolling ankle on ambulation. Unable to fully get to 90 degrees ankle flexion. Significant atrophy of the all LE musculature and intrinsic muscles of foot with high arching and hammer toes. . During our face to face clinical encounter we discussed my concerns neurologically in terms of diagnosis, impact on health and activities of living, and addressed questions. I tried to reassure the patient and also address questions. I explained to the patient to call if any questions, to review res ults, and follow-up as instructed or as needed. Patient verbalizes understanding and I have addressed concerns and questions at this visit Patient has my contacts, educational material provided, and my chart sign up. After visit summary discussed. I spent a total of 60 minutes on the date of the service which included preparing to see the patient, [id number] patient care, completing clinical documentation, performing a medically appropriate examination, counseling and educating the patient/family/caregiver, ordering medications, tests, or p rocedures and communicating results to the patient/family/caregiver. Luther Vega MD Physical Medicine & Rehab [facility] documented in this encounterDoctors Hospital02-16-[facility]23 History of Present illness Narrative* Gayle Alicea PT, DPT - 04/04/2022 1:26 PM EST Episode Visit Count: 1 Start of Care Date: 04/02/22 Patient Identified by Name and Date of : Yes REHABILITATION AND SPORTS THERAPY PHYSICAL THERAPY EVALUATION PLAN OF CARE: Assessment: Katharine Larsen presents with diagnosis of PD that interferes with rising from a chair,standing, walking, walking in the house, sitting, Comments (standing for > 1 minutes, transfers)therapist is unsure of how assists with transfers with feet contractures in PF and posterior directed weight shift. His impairments has declined in the past 2 weeks and pt may be more appropriate for acute rehabilitation at this time. He presents with impairments in ADL's, balance, coordination, flexibility, gait, independence in exercise, joint mobility, overall function, posture, range of motion, strength, decreased safety awareness, needing max assist x 2 for transfers and questionable for more medical observation. Pt is not appropriate for outpatient PT at this time and acute care would be recommended. Planned Interventions, Frequency, and Duration: Current Frequency: Discontinue Therapy Services Planned Treatment Interventions: education about safety given today Patient demonstrates good understanding of plan of care and treatment. The above goals and plan of care were discussed and agreed upon by patient/family. Patient transferring care to: acute rehab SUBJECTIVE: Katharine Larsen is a 71 year old male seen today for Pt was diagnosed in 2013. Since being out of the hospital (admitted for cellulitis). More freezing difficulty with mobility in general. Has had more slipping off surfaces falls. uses the walker since last admission. The last 2 weeksmore difficulty. Recently pt has recieved Botox for toe flexion and PF contracture in both feet, but does not know a stretching program following BOTOX. Patient Goals: get back on his feet Functional Limitations: rising from a chair, standing, walking, walking in the house, sitting, Comments (standing for > 1 minutes, transfers) Functional Limitation Comments: therapist is unsure of how assists with transfers with feet contractures in PF and posterior directed weight shift Prior Level of Function: Required assistance Required assistance with: Ambulation / Mobility, ADL's Prior Functional Level Comments: needs assist with transfers, dressing, and IADL's, uses a ww for ambulation Relevant History Past Relevant Medical Conditions: Parkinson's Disease Right or Left Handed: Left Home Environment Patient Lives With: Spouse Assistance Available: 24-Hour Home Type: [place] Equipment Owned: [employer]- Shower, [employer]- Toilet, Walker- Wheeled, Wheelchair- Manual Intake Information: Prescription present Previous Treatment: Physical Therapy (botox injections) Falls Interview: Uses an assistive device, Two or more falls in the last year, Comments Falls Intervention: Falls Specific Functional Performance Tests Falls Comments: needs max assist with transfers while at clinic Medications: Independent with managing medication Reported Movement Impairments: Freezing, Dyskinesia Freezing: Off State, Environment Freezing Environment Comments: doorways Reported Speech/Swallowing Difficulties: Hypophonia History of Deep Brain Stimulator (DBS) Implant: No Barriers to Exercise: difficult transfers, weakness, contractures Pain: Pain Pain Level: 0 Post Treatment Pain Post Treatment Pain Level: 0 PROMIS Scales Higher is Better 06/22/2021 10/19/2021 02/14/2022 GH Physical - Score 50.8 (Very Good) 47.7 (Good) Incomplete GH Physical - Percentile 53 % 41 % - GH Mental - Score 48.3 (Very Good) 53.3 (Very Good) 50.8 (Very Good) GH Mental - Percentile 43 % 63 % 53 % T-scores: mean of general population = 50. 5 points is clinically meaningfully difference Percentiles provide an indication of how the patient's score ranks in relation to the general population. Higher percentile rankings indicate better function/quality of life. 50th percentile is the average of the general population and indicates half of respondents had a worse score. T-scores: mean of general population = 50. 5 points is clinically meaningfully difference Percentiles provide an indication of how the patient's score ranks in relation to the general population. Higher percentile rankings indicate better function/quality of life. 50th percentile is the average of the general population and indicates half of respondents had a worse score. OBJECTIVE MEASURES WITH LEVEL OF FUNCTION: Posture / Alignment Posture: Decreased lumbar lordosis, Forward head, Increased thoracic kyphosis, Decreased thoracic kyphosis, Comments, Slump Posture comment: when cued to scoot backwards in chair is able to correct, but requires verbal cues. P's reports that he slides out of his chair LE AROM R Ankle Dorsiflexion: -30 Degrees R Ankle Plantar Flexion: 40 Degrees R Ankle Inversion: (unable to achieve netural, supination at rest) R Ankle Eversion: (unable to perform) L Ankle Dorsiflexion: -30 Degrees (with PROM) L Ankle Plantar Flexion: 40 Degrees (wiht PROM) L Ankle Inversion: 10 (with PROM) L Ankle Eversion: 8 (with PROM) LE PROM R Hip Flexion: (WFL, minimal spasticity with PROM) R Hip ABduction: (moderate spasticity with PROM, limited) R Knee Flexion: (WFL) R Ankle Dorsiflexion: (unable to get neutral with PROM) R Ankle Eversion: (maintained in eversion, unable to get to neutral) L Hip Flexion: (WFL) L Hip ABduction: (WFL) L Knee Flexion: (WFL) LE Flexibility Flexibility: Comments Flexibility Comments: demonstrates decreased calf and soleus flexibility B LE Strength R Hip Extension: (bridge for 44 seconds) R Hip Flexion (L2): 3+/5 R Hip ABduction: 3/5 R Ankle Dorsiflexion (L4): 0/5 R Ankle Plantar Flexion: 0/5 R Ankle Inversion: 0/5 R Ankle Eversion: 0/5 L Hip Extension: (bridge for 44 seconds) L Hip Flexion (L2): 3+/5 L Hip ABduction: 4-/5 L Ankle Dorsiflexion (L4): 0/5 L Ankle Plantar Flexion: 0/5 L Ankle Inversion: 0/5 L Ankle Eversion: 0/5 Tone Tone: Spastic, Rigid Spastic Comments: in right leg > left Rigid Comments: in B ankles Movement Description Movement Impairment(s): Bradykinetic, Difficulty initiating gait Difficulty Initiating Gait Comments: with transfer from w/c to mat and back Mobility Rolling: Independent (side to side) Supine To Sit: Contact Guard Assistance Sit to Supine: Contact Guard Assistance Sit To Stand: Comments, Maximal Assistance (x 2, max cues to lean forward (very poor forward weightshift with retropulsive COG), GB) Sit To Stand Comments: leans back significantly, needs 2 person assist Stand To Sit: Comments, Maximal Assistance Stand To Sit Comments: max verbal and tactile cues for trunk flexion and hand placement Bed To Chair: Maximal Assistance, Comments (x 2) Bed To Chair Transfer Type: Stand Pivot Bed To Chair Transfer Equipment: Gait Belt Bed To Chair Comments: needs max assist x 2 and verbl and tactile cues for safety, held w/c seocndary to poor brakes Gait Gait Observation: unable to attempt secondary to poor ankle mobility and safety concerns Balance Static Standing Balance: Comments Static Standing Balance Comments: unable to achieve neutral in ankles when standing, significant heel raise Functional Performance Test Results 5 Times Sit to Stand Test : (attempted, but too unsafe and difficult to perform from mat) Education: Education Learning Preferences: Demonstration, Explanation, Performance Barriers: None Learning/educational needs: Safety, Home exercise program, Plan of Care, Posture, Brace Fit, Gait Training Education Provided: Yes, see treatment interventions for education provided Education Provided To: Patient, Caregiver Education Mode/Type: Demonstration, Explanation/Discussion, Literature/Printed Materials, Performance Response to Education/Teach Back: States/Identifies, Return Demonstration, Requires Review/Additional Education TREATMENT: PT Treatment Interventions: Therapeutic Exercise, Self-Usp Management Evaluation Evaluation Therapeutic Exercise: 1: manual stretching for ankle DF while supine 2: chest stretch with PWR up sitting posture 3: leaning forward and backwards sitting to iniate forward propulsion for transfer Skilled Intervention: Patient was educated in proper exercise technique and purpose for exercises. Skilled judgment was provided in selection of appropriate interventions. Correct performance of therapeutic exercises was facilitated with verbal and visual cuing. Self-Usp Management: 1: transfers with max verbal cues to shift forward and max assist x 2 to and from w/c to and from mat with GB and WW 2: education about safety in the home and shifting backwards in the chair, seat belts as needed, GBas needed Skilled Intervention: Skilled judgment in the selection of proper modification for activity of daily living/home management based on clinical presentation, deficits, and needs. Physical assistance was provided during education for modifications and patient safety. Billing * Evaluation High Complexity: 1 Unit Therapeutic Exercise Treatment Minutes: 10 Self-Care/Home Management Treatment Minutes: 15 Total Treatment Time Minutes (timed/untimed): 60 Gayle Alicea PT, DPT documented in this encounterDoctors Hospital02-14-2023 History of Present illness Narrative* Carolina Damon MD - 04/02/2022 4:07 PM EST [facility] - Multidisciplinary Clinic Juan R John [id number] [facility] [id number] No primary care provider on file. No primary provider on file. I had the pleasure of seeing Katharine Larsen as part of our Multidisciplinary Clinic in cooperationwith physical therapy, occupational therapy, and speech therapy. Subjective Previous Plan-02/14/2022 Visit with BW: Parkinson's disease - will try reducing Rytary to and see if this helps with dyskinesia andnausea. Deconditioning, risk for falls - I will set you up in the multidisciplinary. Interval History: Symptoms suddenly worse the past 2 weeks- more off balance, generalized weakness, rigidity. No medication changes. Still taking Vesicare. Never stopped because he had a supply, has 3 pills left. No fevers, chills, cough, dysuria, or hematuria. Reported to therapy he received his Covid booster 2 weeks ago. 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 He looked at a list of possible causes of acute worsening of Parkinson's symptoms on the web site and felt like he has all of them: dehydration, lack of sleep. He drinks little to no water, prefers root beer, braydon joselito, chocolate mild, juices. He is eating more than before. He drinks Ensure with every meal. Also not sleeping chronically but worse the past 2 weeks. Can still be awake when wifegets up at 4a. He states he'll go to sleep but wake up at 1A. As a result he is napping through theday and to some degree has his days and nights flipped. He states part of the problem is boredom. PCP ordered blood work which he will have done. Has had falls, typically he is seated and reaching for something. 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 Infrequently falls from standing. Parkinson's Medication Schedule - as of the start of the visit: Medications 8AM 100AM 600PM Bedtime Rytary 145 3 3 3 1 rasagiline 1.0 mg 1 Amantadine 100 mg 1 Parkinson's Motor Complications Medication benefit onset: 30 minutes Medication duration: 4 hours Wearing off: yes Painful off-state dystonia: yes Dyskinesia: yes Prior Anti-Parkinson Therapies Amantadine IR Carbidopa/Levodopa ER (Rytary) Rasagiline Questionnaires ALLERGIES Allergen Reactions Penicillins Unknown Current Outpatient Medications Medication Sig carbidopa-levodopa (RYTARY) 36.25-145 mg capsule 3 capsules at 8AM, and 4 capsules at 1PM, and at 6PM and 1 at bedtime (Patient taking differently: 3 capsules at 8AM and 4 capsules at 12:30 and 5:30 1 capsules at bedtime) rasagiline (AZILECT) 1 mg tab Take 1 tablet by mouth once daily. amantadine HCl (SYMMETREL) 100 mg capsule Take 1 capsule by mouth twice daily. (Patient taking differently: Take 100 mg by mouth twice daily. TAKING ONCE A DAY) senna (SENOKOT) 8.6 mg tab Once a day aspirin, enteric coated (ADULT LOW DOSE ASPIRIN) 81 mg EC tablet Take 1 tablet by mouth once daily. tamsulosin (FLOMAX) 0.4 mg cp24 Take 1 capsule by mouth once daily. terbinafine HCl (LAMISIL) 250 mg tablet Take by mouth. (Patient not taking: Reported on 04/02/2022) No current facility-administered medications for this visit. Objective Vital Signs: BP 151/91 (BP Site: Left Arm, BP Position: Sitting, BP Cuff Size: Small Adult) Pulse 84 SpO2 99% Orthostatic Vitals: None for this encounter No LMP for male patient. There is no height or weight on file to calculate BMI. General Physical Examination: General: Awake, alert, interactive, no acute distress, good nutritional status, normal development,well-kept General Neurological Examination: Neurological Exam Mental Status Awake and alert. Language is fluent with no aphasia. Cranial Nerves CN III, IV, : Extraocular movements intact bilaterally. CN VII: Full and symmetric facial movement. Assessment and Plan: Assessment Mr. Larsen is a left-handed 71 year old year old male with idiopathic Parkinson's disease and frequent falls. I saw him last for Botox last month. Then 2 weeks ago has noted sudden worsening of his symptoms including balance, rigidity, generalized weakness. No symptoms of acute medical illness to explain buthe did receive his Covid booster 2 weeks ago. The following are the current problems noted and addressed during this visit: Parkinson's disease (hcc) (primary encounter diagnosis) Plan 04/02/2022 Visit: Labs ordered by PCP- please fax copy of results to Dr. John. Increase water intake Discussed better sleep hygiene, regular schedule. Didn't tolerate trazodone or melatonin in the past - PT, OT - quite affected. OT recommending acute rehab. PT recommending home speech, PT, OT. Too difficult currently to come for outpatient therapy speech - outpatient/home speech Updated Parkinson's Medication Schedule: Medications 8AM 100AM 600PM Bedtime Rytary 145 3 3 3 1 rasagiline 1.0 mg 1 Amantadine 100 mg 1 Level of service : 61145 (40-54 min). Time spent 46 min on the day of service, which included preparing to see the patient, [id number] patient care, completing clinical documentation, obtaining and/or reviewing separately obtained history, counseling and educating the patient/family/caregiver, and care coordination (not separately reported). Thank you for allowing me to be part of the clinical care of this patient! I look forward to continued participation in the patient s care with you. Please do not hesitate to call with any questions. Sincerely, Carolina Damon MD documented in this encounterDoctors Hospital02-14-2023 Instructions* Patient Instructions* Carolina Damon MD - 04/02/2022 3:56 PM EST It was a pleasure to see you today. We addressed the following diagnoses: Parkinson's disease (hcc) (primary encounter diagnosis) My recommendations are as follows: Recommendations to improve sleep hygiene: Avoid going to bed with a negative mind set. If one finds themself lying awake and worrying in bed, try to clear the mind by making a to-do listbefore going to bed. Go to sleep and wake up at the same time EVERYday. Relax before going to bed: reading, listening to music, taking a bath. Avoid screens (phone, iPad) after dinner. Create a positive sleep environment: comfortable, quiet, dark. Stop clockwatching. Get out of bed and do a relaxing activity if not alseep in 20 minutes. Avoid using bed for activities other than sleep and intimate relations. Avoid naps during the day. Avoid alcohol and smoking. Exercise regularly but not within four hours of bedtime. Movement Disorders Medication Schedule: Medications 8AM 100AM 600PM Bedtime Rytary 145 3 3 3 1 rasagiline 1.0 mg 1 Amantadine 100 mg 1 No follow-ups on file. If there are any concerns before your next visit, please call or you can send a message through [employer]. You can also now schedule and select appointments through [employer]. Carolina Damon MD documented in this encounterDoctors Hospital02-14-2023 History of Present illness Narrative* Teresa Marty, [facility]-[employer] [employer] [facility] - 04/02/2022 2:44 PM EST Episode Visit Count: 1 Therapist That Will Accept/Oversee The Plan Of Care: Marty Start of Care Date: 04/02/22 Onset Date: 02/17/14 Plan of Care Certification Date: 04/02/22 Next Certification Due Date: 06/01/22 Patient Identified by Name and Date of : Yes [facility] REHABILITATION AND SPORTS THERAPY SPEECH and SWALLOW EVALUATION PLAN OF CARE: Impression: Communication deficits identified: Voice disorder, Dysarthria of speech RECOMMENDATION: Diet Recommendations: Regular Consistency, Thin Liquids IDDSI Level 0 Swallowing Precautions Recommendations: Anti-Reflux precautions, Alternate bites and sips, Extendedtime between presentations, Feed / Eat at a slow rate, Self- monitoring, Small Bite/Sip, Controlled Volume with each drink presentation, Reduced bite size 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 Demonstrate self-monitoring of appropriate phrasing and breath coordination in connected sentences/conversation with 90% effectiveness with minimal cues All goals to target the patient's overall ability to facilitate functional communication of ADL medical / social needs. Planned Interventions, Frequency, and Duration: Planned Treatment Interventions: Expressive Language Training (48153, 85453), Dysarthria/Apraxia Reduction Training (90287, 03657), Speech Treatment (37129) Current Frequency: 1x every other week (Home health) Duration: 4 weeks PLAN FOR NEXT VISIT: home health ST Patient demonstrates good understanding of plan of care and treatment. The above goals and plan of care were discussed and agreed upon by patient/family. SUBJECTIVE: Katharine Larsen is a 71 year old male seen today for a diagnostic. . 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 and dysarthria assessment . Current Status Oral Hygiene: Clear, moist oral cavity Dentition: Retains Natural Dentition Current Feeding Method: Oral Current Diet Textures: Regular Consistency, Thin Liquids IDDSI Level 0 Current Level Of Communication: Verbal Current Management Of Secretions: Able to self-manage (Reports some difficulty with management of saliva) Oral Motor Exam: Within Functional Limits Except Facial Symmetry Impaired: Bilateral Labial Assessment: Poor labial seal, Generalized weakness Lingual Assessment: Generalized weakness, Reduced sensory awareness Speech/Voice/Language Speech Production: Within Functional Limits Except Dysarthria: Decreased Intelligibility, Imprecise Articulation, Impaired Voice Quality, Decreased Breath Support, Intelligibility of Conversation Intelligibility Conversation %: 90 Oral/Verbal Apraxia: Diadochokinetic Rate Voice Assessment: Yes Sustained ah phonation (seconds) : 8 Maximum Phonation Time (seconds): 9 Voice Handicap Index Score: 65 Voice Handicap Index Severity: Severe Swallow Position Of Patient During Assessment: Upright In Chair Consistencies Presented: Thin Liquids IDDSI Level 0, Pureed IDDSI Level 4, Minced and Moist IDDSI Level 5, Solid Response to Consistencies Presented: Recently had MBS at [facility] recommending regular/thin per patient. Mild amount of lingual residue post swallow with saltine. Disorganized mastication (mild); vocal quality remained dry throughout trials. Compensatory Strategies Utilized During Assessment: Self-monitoring, Small Bite/Sip, Voice checks Clinical Swallow Ilene Swallow Protocol: Pass Oral Pharyngeal Swallow Assessment: Within Functional Limits Except Preparatory / Oral Phase: Within Functional Limits Except Oral Containment: Mildly Impaired Mastication: Suspect impairment Oral Residue: Mildly Impaired Pharyngeal Phase: Within Functional Limits Except Reflexive Throat Clear and Cough after Swallowing: No Multiple Swallows: Yes Suspected Esophageal Deficits: no Education: Education Learning Preferences: Explanation, Printed Materials Barriers: Acuity of Illness Learning/Educational Needs: Compensatory Strategies, Family Education/Training, Rehabilitation Techniques and Procedures, Speech Skills Education Provided: Yes, see treatment interventions for education provided Education Provided To: Patient, Family Education Mode/Type: Explanation/Discussion, Literature/Printed Materials Response to Education/Teach Back: States/Identifies, Requires Review/Additional Education TREATMENT: Evaluation: Eval Sound Production with Language Expression and Bobbin Presser ([id number]) Swallow Eval Func (10415) Current Home Program: voice/dysarthria exercises Billing: Eval Sound Production with Language Expression and Bobbin Presser ([id number]) and Clinical Swallow Evaluation ([id number]) Total time / Length of visit: 60 minutes Teresa Ferguson CCC-MACHINE PRINTER [employer]SE documented in this encounterDoctors Hospital02-14-2023 History of Present illness Narrative* Jaimee Vazquez, OTR/L - 04/02/2022 1:59 PM EST Episode Visit Count: 1 Therapist That Will Accept/Oversee The Plan Of Care: Tucker Vazquez Start of Care Date: 04/02/22 Onset Date: 12/18/12 Plan of Care Certification Date: 04/02/22 Next Certification Due Date: 04/02/22 Patient Identified by Name and Date of : Yes [facility] REHABIL[facility]ATION AND SPORTS THERAPY OCCUPATIONAL THERAPY EVALUATION PLAN OF CARE: Assessment: Katharine Larsen presents with diagnosis of Parkinson's that interferes with ADLS, sitting posture. dressing, rising from a chair, gripping . Pt's spouse reports significant decline in function within the past 2 weeks. Recently dislocated right ring finger with fall. He presents with impairments in ADL's, balance, coordination, flexibility, overall function, posture, range of motion, and strength. Patient appears more appropriate for intensive acute inpatient rehabilitation vs outpatient services. Recommend admission to inpatient acute rehabilitation for optimal patient benefit. Encourage return to outpatient services in the future when appropriate. Goals for Episode of Care created on 04/02/22 through Patient and spouse verbalize understanding recommendations (MET) Patient Goals: maintain independence Planned Interventions, Frequency, and Duration: Current Frequency: Discontinue Therapy Services Planned Treatment Interventions: Patient demonstrates good understanding of plan of care and treatment. The above goals and plan of care were discussed and agreed upon by patient/family. SUBJECTIVE: Katharine Larsen is a 71 year old male seen today for OT evaluation for PD multidisciplinary clinic. 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 Recreation / Current Exercise: none Hobbies / Interests: stamp collection Home Environment Patient Lives With: Spouse Assistance Available: 24-Hour Home Type: Ranch Tub/Shower Type: walk in shower with shower chair Equipment Owned: Grab Bars- Shower, Grab Bars- Toilet, Walker- Wheeled, Wheelchair- Manual Pain: Pain Pain Level: 0 Post Treatment Pain Post Treatment Pain Level: No Change PROMIS Scales Higher is Better 06/22/2021 10/19/2021 02/14/2022 GH Physical - Score 50.8 (Very Good) 47.7 (Good) Incomplete GH Physical - Percentile 53 % 41 % - GH Mental - Score 48.3 (Very Good) 53.3 (Very Good) 50.8 (Very Good) GH Mental - Percentile 43 % 63 % 53 % T-scores: mean of general population = 50. 5 points is clinically meaningfully difference Percentiles provide an indication of how the patient's score ranks in relation to the general population. Higher percentile rankings indicate better function/quality of life. 50th percentile is the average of the general population and indicates half of respondents had a worse score. T-scores: mean of general population = 50. 5 points is clinically meaningfully difference Percentiles provide an indication of how the patient's score ranks in relation to the general population. Higher percentile rankings indicate better function/quality of life. 50th percentile is the average of the general population and indicates half of respondents had a worse score. OBJECTIVE MEASURES WITH LEVEL OF FUNCTION: Posture / Alignment Posture: Slump Effects of Posture Correction: trialed use of dycem on seat of wheelchair Hand Strength R Grape Picker Position 2 (lbs): 10 lbs L Grape Picker Position 2 (lbs): 35 lbs UE AROM R UE AROM: WFL L UE AROM: WFL UE and Cervical Strength R UE Strength: 4/5 L UE Strength: 4/5 Tone Tone: Spastic, Rigid Spastic Comments: BLEs Current Activities Of Daily Living Feeding: Modified Independent Grooming: Modified Independent (stands at sink, oral care and hair care) Bathing Upper Body: Moderate Assistance Bathing Lower Body: Moderate Assistance Dressing Upper Body: Moderate Assistance (occasional dressing apraxia (backward) and spouse assists) Dressing Lower Body: Maximal Assistance (pt's spouse dons underwear, pants, socks, and shoes) Toileting: Moderate Assistance Instrumental Activities of Daily Living Driving: (not) Functional Performance Test Results 9 Hole Peg Test Right (seconds): (unable) 9 Hole Peg Test Left (seconds): (unable) Box and Blocks Right Box and Blocks (blocks per min): 20 blocks per min Left Box and Blocks (blocks per min): 21 blocks per min Education: Education Learning Preferences: Demonstration, Explanation, Performance, Printed Materials Barriers: None Learning/educational needs: Home exercise program, Plan of Care Education Provided: Yes, see treatment interventions for education provided Education Provided To: Patient, Caregiver Education Mode/Type: Explanation/Discussion, Demonstration Response to Education/Teach Back: States/Identifies TREATMENT: OT Treatment Interventions : Self-Usp Management Evaluation Self-Usp Management: 1: Pt and spouse educated in role of OT 2: Discussed inpatient rehabilitation (acute rehab) 3: Encouraged spouse to take patient to emergency department if patient continues to decline Skilled Intervention: Patient and spouse educated as noted. Billing * Evaluation High Complexity: 1 Unit Self-Care/Home Management Treatment Minutes: 15 Total Treatment Time Minutes (timed/untimed): 50 LORENA Johnson documented [facility] Islas [facility] March 25, 2022 9:14pm Note Date/Time March 25, 2022 8 :47pm [facility] Medical Records Department [address] [place] [address] Emergency Department Summary 03/25/22 MR#: [id number] Acct: [id number] Name: KATHARINE LARSEN Rep #:[id number] : 1950 71 From: Wyatt Islas MD PCP: Nico Schmidt Status:REG ER Location: ED HPI History of Present Illness Chief Complaint: Upper Extremity Injury Narrative Narrative: 71-year-old male past medical history of Parkinson's disease fell approximately 4 hours ago onto his right hand. He states that he is not right-hand dominant. He sustained an injury to his right fourth digit. He denies other injury. He noted deformity at the PIP joint after his fall and now cannot move his right fourth finger/ring finger. He denies other injury. [facility] Medical History BPH (benign prostatic hyperplasia) Cellulitis Closed traumatic nondisplaced fracture of four ribs of right side Difficulty balancing when standing DMII (diabetes mellitus, type 2) HLD (hyperlipidemia) HTN (hypertension) Parkinson disease Home Medications tamsulosin 0.4 mg capsule (Flomax) 0.4 mg PO QHS PROSTATE 10/24/17 [History Last Taken 04/18/19] carbidopa ER 36.25 mg-levodopa 145 mg capsule,extended release 4 cap PO LUNCH parkinsons 04/19/19 [History Last Taken 04/19/19] carbidopa ER 36.25 mg-levodopa 145 mg capsule,extended release 3 ea PO [id number]/10/20 [History Last Taken Unknown] carbidopa ER 36.25 mg-levodopa 145 mg capsule,extended release 4 ea PO DINNER 10/28/19 [History Last Taken Unknown] amantadine HCl 100 mg capsule 100 mg PO BID pain 11/16/20 [History Last Taken Unknown] rasagiline 1 mg tablet 1 mg PO DAILY parkinsons 11/16/20 [History Last Taken Unknown] carbidopa ER 36.25 mg-levodopa 145 mg capsule,extended release (Rytary) 1 cap POQHS parkinsons 10/07/21 [History Last Taken Unknown] terbinafine HCl 250 mg tablet 250 mg PO QHS finger fungal infection 10/07/21 [History Last Taken 10/07/21] Lactobacillus acidophilus-Bifidobac.animalis 2 billion cell capsule 1 cap PO BID10 days #20 caps 10/09/21 [Rx Last Taken Unknown] cephalexin 500 mg tablet 500 mg PO TID #21 tabs 10/09/21 [Rx Last Taken Unknown] sulfamethoxazole 800 mg-trimethoprim 160 mg tablet (Bactrim DS) 1 tab PO BID #10tabs 10/09/21 [Rx Last Taken Unknown] Allergy/AdvReac Type Severity Reaction Status Date / Time Penicillins [PCN] Allergy Unknown Verified 03/25/22 18:33 Family History Father No problems noted. Mother No problems noted. Other Parkinsons disease Social History Smoking Status: Never smoker alcohol intake: never ROS ROS ED ROS Narrative Constitutional: No fever, no chills. HEENT: No sore throat. No neck pain. No loss of vision. No rhinorrhea. Cardiovascular: No chest pain. No palpitations. No pedal edema. Respiratory: No cough, no shortness of breath. Abdominal: No abdominal pain. No nausea. No vomiting. Genitourinary: No dysuria. No hematuria. Musculoskeletal: No myalgias. Right fourth finger deformity. Neurologic: No headaches. No dizziness. No lightheadedness. Skin: No rash. No change in color. Psychiatric: No depression. No anxiety. EXAM Physical Exam Narrative Exam Narrative: Afebrile. Vital signs noted. HEENT: Normocephalic. Atraumatic. PERRL, EOMI. Neck soft and supple. No point tenderness or step off. Cardiovascular: Regular rate and rhythm. No murmurs, rubs, or gallops appreciated. Respiratory: No tachypnea. Lungs clear to auscultation bilaterally. Gastrointestinal: Abdomen soft, nontender, with normoactive bowel sounds. No rebound or guarding. Neurological: Awake. Alert. Nonfocal, nonlateralizing. Skin: No rash. Normal color. No pallor. Musculoskeletal: No pedal edema. Full range of motion extremities. Ulnar deviation and dorsal deviation of right fourth digit PIP. Onychomycosis of nails on hands. Uninjured at the wrist and above. Const Vital Signs: 03/25/22 18:33 Temperature 98 F Temperature Source Temporal Pulse Rate 94 Respiratory Rate 14 Blood Pressure 131/82 H Blood Pressure Mean 98 Pulse Ox 100 Oxygen Delivery Method Room Air MDM MDM MDM Narrative Medical decision making narrative: X-rays were obtained in triage and interpreted by myself of the fourth digit. There is evidence of dislocation on my interpretation both dorsally with ulnar deviation. No evidence of fracture. Initial attempt was made to reduce his digit, but he did not tolerate this. Lidocaine 1% was used for digital block of the fourth digit. Reduction was attempted and I believe was successful on the second attempt. Postreduction x-rays were obtained and interpreted by myself. There is normal alignment of the fourth digit PIP joint. I reviewed the radiology report and they confirm. He will be placed in an aluminum foam splint and will follow up with orthopedics, Dr. Lilly. Disposition is discharged home in improved and stable condition. Radiography Diagnostic Testing: Clinical Impression(s) from Imaging Studies Finger X-Ray 03/25/22 19:42 IMPRESSION: Ulnar and dorsal dislocation of the fourth PIP joint. No finding of fracture. Electronically Signed: Nico Dent MD at 19:59 EST , Discharge Plan Triage Chief Complaint: Upper Extremity Injury ED Provider: Wyatt Islas Dx/Rx/DC Orders Clinical Impression: Fall, Closed dislocation finger, proximal interphalangeal joint, traumatic Instructions: ED Finger Dislocation Prescriptions: No Action tamsulosin [Flomax] 0.4 MG capsule 0.4 mg PO QHS amantadine HCl 100 mg capsule 100 mg PO BID Label Comments: Rx Instructions: 0800, 1300 rasagiline 1 mg tablet 1 mg PO DAILY Label Comments: carbidopa-levodopa 1 EACH capsule, extended release 4 cap PO LUNCH Rx Instructions: 0800,1300,1800 carbidopa-levodopa 1 EACH capsule, extended release 3 ea PO BREAKFAST carbidopa-levodopa 1 EACH capsule, extended release 4 ea PO DINNER terbinafine HCl 250 mg tablet 250 mg PO QHS Label Comments: TAKE 1 TABLET BY MOUTH EVERY DAY Rytary 36.25-145 mg capsule, extended release 1 cap PO QHS Label Comments: TAKE 3 CAPSULES AT 8AM, AND 4 CAPSULES AT 1PM, AND AT 6PM AND 1 CAPSULE AT 11PM cephalexin 500 mg tablet 500 mg PO TID Qty: 21 0RF sulfamethoxazole-trimethoprim [Bactrim DS] 800-160 mg tablet 1 tab PO BID Qty: 10 0RF L. acidophilus/Bifid. animalis 2 billion cell capsule 1 cap PO BID 10 Days Qty: 20 0RF Rx Instructions: Available over the counter. Any probiotic for 10 days Primary Care Provider: Nico Schmidt Referrals: Jose Luis Lilly DO [Med Staff - Active Staff] - 5-7 Days Nico Schmidt [Primary Care Provider] - Activity Restrictions/Additional Instructions: Wear your finger splint until cleared by orthopedics. Disposition Disposition: Home, Self Care What to do if you have Problems For any increased pain, shortness of breath, bleeding, nausea or vomiting, chestpain, or any unexpected problems, contact your Primary Care Provider. Call [facility] ([phone]) or report to the closest Emergency Room. Call 911 if necessary. 03/25/222113 <Electronically signed by Wyatt Islas MD> Cosigner Signature (if applicable): CC: Nico Schmidt ~ Signed [facility] Work Phone: 1(620) 335-111201-13-2023 History of Present illness Narrative* Carolina Damon MD - 03/01/2022 5:53 PM EST Images from the original note were not included. [place] [facility] Neurotoxin Visit Date: March 01, 2022 Name: Katharine Larsen SUBJECTIVE: Subjective history Last injected 2020. Here to resume injections, had been working well. 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) Date of diagnosis: 11/12/2018 Other treatments that have been tried and failed: Medications for Parkinson's Date of first neurotoxin treatment: 03/08/2019 Type of neurotoxin given: OnabotulinumtoxinA (Botox) Frequency of current neurotoxin treatment: 90 days Estimated frequency and duration of treatment: continue with current injection interval; will reassess after 1 year Last Injection Notes Date of last Injection: 01/03/2021 Type of neurotoxin: OnabotulinumtoxinA (Botox) Total amount injected: 200 units Degree of effectiveness of last injection:130% Duration of effect: 70 week(s) Side effects related to last injection: None Current pain symptoms: No Current functional limitations: moderate Last neurotoxin regimen: Med right left midline Quadratus plantae 30 35 Flexor digitorum brevis 30 35 Total: 130 Questionnaires: In addition, the following areas that may be affected by abnormal involuntary movements were evaluated: Daily activities Difficulties with eating: Yes (mild) Difficulties in dressing: Yes (mild) Difficulties with hygiene activities: 0 (none) Difficulties with handwriting: Yes (severe) Difficulties with doing hobbies and other activities: Yes (mild) Difficulties turning in bed: Difficulties getting out of bed, car or chair: Yes (slight) Tremors/Gait/Balance Shaking or tremors: Yes (mild) Walking and balance problems: Yes (moderate) Number of falls in the Last Month: 0 Gait freezing: Yes (moderate) Autonomic/Pain Lightheadeness on standing: Yes (mild) Urinary problems: Yes (mild) Constipation problems: Yes (mild) Pain and other sensations: Yes (moderate) Speech/Swallowing Speech problems: Drooling: Yes (mild) Chewing and swallowing problems: Yes (slight) Sleep/Fatigue Sleep problems: Yes (moderate) Daytime sleepiness: Yes (moderate) Fatigue: 0 (none) Allergies: ALLERGIES Allergen Reactions Penicillins Unknown Current Medications: Current Outpatient Medications Medication Sig terbinafine HCl (LAMISIL) 250 mg tablet Take by mouth. carbidopa-levodopa (RYTARY) 36.25-145 mg capsule 3 capsules at 8AM, and 4 capsules at 1PM, and at 6PM and 1 at bedtime (Patient taking differently: 2 capsules at 8AM and 3 capsules at 12:30 and 5:30 2 capsules at bedtime) rasagiline (AZILECT) 1 mg tab Take 1 tablet by mouth once daily. amantadine HCl (SYMMETREL) 100 mg capsule Take 1 capsule by mouth twice daily. (Patient taking differently: Take 100 mg by mouth twice daily. TAKING ONCE A DAY) senna (SENOKOT) 8.6 mg tab Once a day aspirin, enteric coated (ADULT LOW DOSE ASPIRIN) 81 mg EC tablet Take 1 tablet by mouth once daily. tamsulosin (FLOMAX) 0.4 mg cp24 Take 1 capsule by mouth once daily. No current facility-administered medications for this visit. OBJECTIVE: BP 132/77 (BP Site: Left Arm, BP Position: Sitting, BP Cuff Size: Regular Adult) Pulse 79 Ht 174 cm (5' 8.5) Wt 55.6 kg (122 lb 9.6 oz) SpO2 99% BMI 18.37 kg/m Other notable exam findings: mild curling of toes both feet. ASSESSMENT AND PLAN: Mr. 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 Injections are working well. Repeated same injection pattern. After obtaining informed consent, neurotoxin injections were carried out as outlined below. Current Injection Note Type of neurotoxin: OnabotulinumtoxinA (Botox) Total amount drawn: 200 units Total amount injected: 130 units Total amount wasted: 70 units Dilution: 1 cc NSS/100 U Administered with EMG guidance: No Lot#: [id number] Exp Date: 05/17/24 Today's neurotoxin regimen: Med right left midline Quadratus plantae 30 35 Flexor digitorum brevis 30 35 Total: 130 Future plan of care: Follow up: 3 months Neurotoxin change: No Dose change:No Carolina Damon MD March 01, 2022 5:58 PM Dept of NEUROLOGY TIME OUT/ PROCEDURE NOTE: Informed consent Katharine Larsen Medical Record: [id number] Procedure: neurotoxin intramuscular injection The risks, benefits and anticipated outcomes of the procedure, the risks and benefits of the alternatives to the procedure and the roles and tasks of the personnel to be involved were discussed with the patient and the patient consents to the procedure and agrees to proceed. I verify that I personally obtained Katharine Larsen's consent. Carolina Damon MD March 01, 2022 5:58 PM UNIVERSAL PROTOCOL / SAFETY CHECKLIST Procedure to be Performed: neurotoxin injection Sign In: A Moment of CARE was completed. Personnel directly involved wiht the procedure wore the appropriate PPE (Personal Protective Equipment). Patient/Surrogate Stated/Verified: Patient name Date of Relative allergies The intended procedure Time Out Communication: Intended patient and procedure match the source documents. Consent documented and matches the intended procedure. No relevant labs, photos, and/or imaging studies were applicable for review. No correct side/site applicable for marking and visibility. Medications required for procedure verified. No fire risk assessment and interventions applicable. No implant(s) inserted. Sign Out: No specimen collected. No instruments, equipment or retained foreign bodies applicable. Post-procedure follow-up management communicated and Plan of Care Visit completed when applicable. -- Carolina Damon MD documented in this encounterDoctors Hospital01-10-2023 Miscellaneous Notes* Telephone Encounter - Joyce Gema - 02/26/2022 11:51 AM EST Patient came into office for appt today Scheduled. * Telephone Encounter - Joyce Ribeiro - 02/25/2022 12:06 PM EST Called to schedule PD Clinic. LVM to call and schedule in next PD Clinic. * Telephone Encounter - Delmi Auguste - 02/20/2022 12:15 PM EST Pt's phoned the call center to schedule the multi-disciplinary clinic appt that Dr. John ordered. Advised that coordinator will reach out to them to schedule. documented in this encounterDoctors Hospital12-29-2022 Instructions* Patient Instructions* Juan R John MD - 02/14/2022 4:54 PM EST It was a pleasure to see you today. We addressed the following diagnoses: Parkinson's disease (hcc) (primary encounter diagnosis) My recommendations are as follows: 02/14/2022 Visit: Parkinson's disease - will try reducing Rytary to 3/3/3/ and see if this helps with dyskinesia andnausea. Deconditioning, risk for falls - I will set you up in the multidisciplinary. Movement Disorders Medication Schedule: Medications 8AM 100AM 600PM Bedtime Rytary 145 3 3 3 1 rasagiline 1.0 mg 1 Amantadine 100 mg 1 Return in about 6 months (around 08/15/2022). If there are any concerns before your next visit, please call or you can send a message through [employer]. You can also now schedule and select appointments through [employer]. Juan R John MD documented in this encounterDoctors Hospital12-29-2022 History of Present illness Narrative* Juan R John MD - 02/14/2022 4:00 PM EST [facility] - FOLLOW UP EVALUATION I had the pleasure of seeing Mr. Larsen for follow-up today. He is a 71 year old left-handed male with a history of Parkinson's disease complicated by motor fluctuations and dyskinesia since 2012. He is seen with his and son Subjective Previous Plan-10/19/2021 Visit: Parkinson's disease - Stable no change in Rytary. Insomnia and lack of appetite - Try Remeron 15 mg at bedtime. Overactive bladder - Increase vesicare to 10 mg. Interval History: He is loosing weight. He may be a little nauseous or gag on food or may have trouble swallowing so he is not eating as much. Remeron put him in a fog. Last time I saw him he had had just had the booster shot for COIVD and was hallucinating. Appetite really went down at this time. He no longer has howell llucinations. Movement Disorders Medications Schedule - as of the start of the visit: Medications 8AM 100AM 600PM Bedtime Rytary 145 3 4 4 1 rasagiline 1.0 mg 1 Amantadine 100 mg 1 Parkinson's Motor Complications Medication benefit onset: 30 minutes Medication duration: 4 hours Wearing off: yes Painful off-state dystonia: yes Dyskinesia: yes Prior Anti-Parkinson Therapies Amantadine IR Carbidopa/Levodopa ER (Rytary) Rasagiline Questionnaires: In addition, the following areas that may be affected by abnormal involuntary movements were evaluated: Daily activities Difficulties with eating: Yes (slight) Difficulties in dressing: Difficulties with hygiene activities: Difficulties with handwriting: Yes (severe) Difficulties with doing hobbies and other activities: Yes (mild) Difficulties turning in bed: Difficulties getting out of bed, car or chair: Yes (mild) Tremors/Gait/Balance Shaking or tremors: Yes (mild) Walking and balance problems: Yes (moderate) Number of falls in the Last Month: 0 Gait freezing: Yes (moderate) Autonomic/Pain Lightheadeness on standing: Yes (slight) Urinary problems: Yes (moderate) Constipation problems: Yes (mild) Pain and other sensations: Yes (slight) Speech/Swallowing Speech problems: Yes (moderate) Drooling: Chewing and swallowing problems: Sleep/Fatigue Sleep problems: Yes (mild) Daytime sleepiness: Yes (moderate) Fatigue: Mood/Behavior Depression: PHQ-9 Score: 8 usually representing mild (5-9) depression. Anxiety: Finally, the following table shows the patient's overall global physical and mental health using the PROMIS scale: PROMIS-10 Flowsheet Row Office Visit from 02/14/2022 in Neurology [facility] from 10/19/2021 in [facility] Global Physical Health T Score -- 47.7 Global Mental Health T Score 50.8 53.3 0-10 Standard Pain Scale 4 5 *PROMIS-10 scoring scale: mean = 50, over 50 is above average, under 50 is below average In addition, the following non-motor symptoms and palliative concerns were evaluated: Sleep/Fatigue: REM sleep behavior disorder: no Restless Legs Syndrome: no Leg swelling: Impaired sense of smell: Cognition: Cognitive impairment: no MoCA Cognitive assessment: Hallucinations and delusions: no Apathy: no Impulse control disorder: Palliative Concerns: Caregiver burden: Spiritual concerns: Advanced directives on file: Palliative services: Therapy and Exercise: Last PT Date: Last OT Date: Last ST Date: Exercises Regularly: ALLERGIES Allergen Reactions Penicillins Unknown Current Outpatient Medications Medication Sig carbidopa-levodopa (RYTARY) 36.25-145 mg capsule 3 capsules at 8AM, and 4 capsules at 1PM, and at 6PM and 1 at bedtime rasagiline (AZILECT) 1 mg tab Take 1 tablet by mouth once daily. amantadine HCl (SYMMETREL) 100 mg capsule Take 1 capsule by mouth twice daily. senna (SENOKOT) 8.6 mg tab TAKE 1 tablet BID aspirin, enteric coated (ADULT LOW DOSE ASPIRIN) 81 mg EC tablet Take 1 tablet by mouth once daily. tamsulosin (FLOMAX) 0.4 mg cp24 Take 1 capsule by mouth once daily. No current facility-administered medications for this visit. Objective Vital Signs: BP 131/92 (BP Site: Left Arm, BP Position: Sitting, BP Cuff Size: Regular Adult) Pulse 87 Ht 172.7 cm (5' 8) Wt 54.7 kg (120 lb 9.6 oz) SpO2 99% BMI 18.34 kg/m Orthostatic Vitals: None for this encounter No LMP for male patient. Body mass index is 18.34 kg/m . General Physical Examination: General Exam General Neurological Examination: Neurological Exam Motor Significant hypophonia. moderate bradykinesia and mild left > R LE dyskinesia. . Gait Casual gait: Normal stance. Reduced stride length. Very unsteady, tends to toe walk, and twist on turns. Movement Disorders Scales Performed: MDS-UPDRS Motor subscale condition of exam Medication Off/On/Naiive ON Time of UPDRS 1635 Time of Last Medication 0730 Last Medication Taken Rytary 145 3 capsules DBS Right N/A DBS Left N/A MDS-UPDRS Motor subscale scores Speech 1-Slight. Loss of modulation, diction or volume, but still all words easy to understand. Facial Expression 2-Mild. In addition to decreased eye-blink frequency, Masked facies present in the lower face as well, namely fewer movements around the mouth, such as less spontaneous smiling, butlips not parted. Rigidity Neck 2-Mild. Rigidity detected without the activation maneuver, but full range of motion is easily achieved. Rigidity Right Upper Extremity 2-Mild. Rigidity detected without the activation maneuver, but full range of motion is easily achieved. Rigidity Left Upper Extremity 1-Slight. Rigidity only detected with activation maneuver. Rigidity Right Lower Extremity 2-Mild. Rigidity detected without the activation maneuver, but full range of motion is easily achieved. Rigidity Left Lower Extremity 2-Mild. Rigidity detected without the activation maneuver, but full range of motion is easily achieved. Finger Taps Right 1-Slight. a) the regular rhythm is broken with one or two interruptions or hesitations of the tapping movement, b) slight slowing, c) the amplitude decrements near the end of the 10taps. Finger Taps Left 2-Mild. a) 3 to 5 interruptions during tapping, b) mild slowing, c) the amplitude decrements midway in the 10-tap sequence. Hand Movements Right 1-Slight. a) the regular rhythm is broken with one or two interruptions or hesitations of the movement, b) slight slowing, c) the amplitude decrements near the end of the task. Hand Movements Left 1-Slight. a) the regular rhythm is broken with one or two interruptions or hesitations of the movement, b) slight slowing, c) the amplitude decrements near the end of the task. Arm Movements Right 1-Slight. a) the regular rhythm is broken with one or two interruptions or hesitations of the movement, b) slight slowing, c) the amplitude decrements near the end of the sequence. Arm Movements Left 2-Mild. a) 3 to 5 interruptions during the movements, b) mild slowing, c) the amplitude decrements midway in the sequence. Toe Taps Right 1-Slight. a) the regular rhythm is broken with one or two interruptions or hesitations of the tapping movement, b) slight slowing, c) the amplitude decrements near the end of the ten taps. Toe Taps Left 3-Moderate. a) more than 5 interruptions during the tapping movements or at least onelonger arrest (freeze) in ongoing movement, b) moderate slowing, c) the amplitude decrements starting after the first tap. Leg Agility Right 1-Slight. a) the regular rhythm is broken with one or two interruptions or hesitations of the movement, b) slight slowing, c) the amplitude decrements near the end of the task. Leg Agility Left 1-Slight. a) the regular rhythm is broken with one or two interruptions or hesitations of the movement, b) slight slowing, c) the amplitude decrements near the end of the task. Arise From Chair 3-Moderate. Needs to push off, but tends to fall back, or may have to try more than one time using arms of chair, but can get up without help. Gait 3-Moderate. Requires an assistance device for safe walking (walking stick, walker) but not a person. (gait is normal but uses walker) Gait Freezing 0-Normal. No freezing. Posture Stability 4-Severe. Very unstable, tends to lose balance spontaneously or with just a gentle pull on the shoulders. Posture 3-Moderate. Stooped posture, scoliosis or leaning to one side that cannot be corrected volitionally to a normal posture by the patient. Body Bradykinesia 0-Normal. No problems. Postural Tremor Hand Right 0-Normal. No tremor. Postural Tremor Hand Left 0-Normal. No tremor. Kinetic Tremor Right 1-Slight. Tremor is present but less than 1cm in amplitude. Kinetic Tremor Left 1-Slight. Tremor is present but less than 1cm in amplitude. Rest Tremor Amplitude Right Upper Extremity 0-Normal. No tremor. Rest Tremor Amplitude Left Upper Extremity 1-Slight. < 1 cm in maximal amplitude. Rest Tremor Amplitude Right Lower Extremity 0-Normal. No tremor. Rest Tremor Amplitude Right Lower Extremity 1-Slight. < 1 cm in maximal amplitude. Rest Tremor Amplitude Lip/Jaw 0-Normal. No tremor. Rest Tremor Constancy 1-Slight. Tremor at rest is present < 25% of the entire examination period. MDS-UPDRS Motor subscale totals Left Total 15 Right Total 10 Midline Total 18 Tremor Total / 10 5 PIGD Total / 3 7 Overall Total 44 % Change Compared to Last Filed Total Assessment and Plan: Assessment Mr. Larsen is a left-handed 71 year old year old male with idiopathic Parkinson's disease and frequent falls. The following are the current problems noted and addressed during this visit: Parkinson's disease (hcc) (primary encounter diagnosis) Plan 02/14/2022 Visit: Parkinson's disease - will try reducing Rytary to and see if this helps with dyskinesia andnausea. Deconditioning, risk for falls - I will set you up in the multidisciplinary. Updated Movement Disorders Medication Schedule: Medications 8AM 100AM 600PM Bedtime Rytary 145 3 3 3 1 rasagiline 1.0 mg 1 Amantadine 100 mg 1 Medical Decision Making: Problems: Moderate: 1+ chronic illnesses with change Risk: Moderate: Drug management Medical Decision Making Level: 4 - Moderate Thank you for allowing me to be part of the clinical care of this patient! I look forward to continued participation in the patient s care with you. Please do not hesitate to call with any questions. Sincerely, Juan R John MD [facility] Miscellaneous Notes* Telephone Encounter - Hilda Florez MA - 02/14/2022 4:00 PM EST At appointment time 4p, pt was not checked in. Went to lobby/waiting room and hallway to call for pt. Pt was not in either location. documented in this encounterDo[facility]10-07-2022 History of Present illness Narrative* Juan R John MD - 11/23/2021 3:40 PM EDT AMBULATORY TELEPHONE VISIT Katharine Larsen has consented to this telephone encounter. Persons Present: patient and patient's spouse/significant other Chief Complaint/Reason: Worse since COVID booster HPI: He has been more tired and slurring speech with worse balance since getting his COVID booster 2.5 weeks ago. He may hallucinate at times. He has not been getting PT since his cellulitis. Data Reviewed: Chart Assessment: (G20) Parkinson's disease (HCC) (primary encounter diagnosis) Plan: Try reducing Amantadine to once a day at 8AM. Will get BIG and LOUD therapy fo rhis PD. Total Time Spent: 15 minutes Juan R John MD documented in this encounterDoctors Hospital07-28-2022 Miscellaneous Notes* Telephone Encounter - Delmi Alves - 09/13/2021 3:51 PM EDT Patient phones requesting refills as follows: Last FUV August 2021 with [facility] Pending Prescriptions Disp Refills RASAGILINE 1 MG TABLET 90 tablet 3 Sig: Take 1 tablet by mouth once daily. AGA: No Please review and advise. Delmi Auguste documented in this encounterDoctors Hospital07-22-2022 History of Present illness Narrative* Juan R John MD - 09/07/2021 3:20 PM EDT documented in this encounterDoctors Hospital07-08-2022 Miscellaneous Notes* Telephone Encounter - Delmi Auguste - 08/24/2021 12:55 PM EDT Last FUV June 2021 with [facility] Patient phones requesting refills as follows: Pending Prescriptions Disp Refills RYTARY 36.25 MG-145 MG CAPSULE,EXTENDED RELEASE 990 capsule 11 Si capsules at 8AM, and 4 capsules at 1PM, and at 6PM. AGA: No Please review and advise. Delmi Andujar [facility] [place] documented in this encounterDoctors Hospital06-03-2022 Miscellaneous Notes* Telephone Encounter - Sowmya Spencer - 07/20/2021 10:07 AM EDT Patient requesting new order PT. He would like this faxed to [facility] at [phone] and notified when sent. documented in this encounterDoctors Hospital05-06-2022 Instructions* Patient Instructions* Juan R John MD - 06/22/2021 4:54 PM EDT It was a pleasure to see you today. We addressed the following diagnoses: Parkinson's disease (hcc) (primary encounter diagnosis) My recommendations are as follows: 06/22/2021 Visit: Parkinson's disease - Stable. Falls - Work on using the walker or not making quick moves Urgency - Try Vesicare 5 mg daily Insomnia - Try trazedone 50 mg at bedtime. If there are any concerns before your next visit, please call or you can send a message through [employer]. You can also now schedule and select appointments through [employer]. Juan R John MD documented in this encounterDoctors Hospital05-06-2022 History of Present illness Narrative* Juan R John MD - 06/22/2021 2:00 PM EDT [facility] - FOLLOW UP EVALUATION I had the pleasure of seeing Mr. Larsen for follow up today. He is a 70 year old left-handed male with a history of Parkinson's disease complicated by motor fluctuations and dyskinesia since 2012. He is seen alone. We had a visit using: [employer]-Kan I received consent from the patient to perform the visit using this platform. Subjective Previous Plan-07/28/2020 Visit: Parkinson's disease - I have placed orders for Inbrija for you. Use 2 capsules in the inhaler as needed up to 5 times daily. Use in time periods where you wear off significantly between Rytary doses. Deconditioinng - I am ordering PT Interval History We made a reduction in Rytary. He need up reducing the AM dose instead and is doing well with this. Parkinson's Medication Schedule - as of the start of the visit: 8AM 100AM 600PM Bedtime Rytary 145 3 4 4 1 Sinemet 25/100mg STOP rasagiline 1.0 mg 1 Amantadine 100 mg 1 1 Parkinson's Motor Complications Medication benefit onset: 30 minutes Medication duration: 4 hours Wearing off: yes Painful off-state dystonia: yes Dyskinesia: yes Prior Anti-Parkinson Therapies Amantadine IR Carbidopa/Levodopa ER (Rytary) Rasagiline In addition, the following Parkinson-associated features were evaluated: Daily activities Difficulties with eating: Yes (slight) Difficulties in dressing: No Difficulties with hygiene activities: 0 (none) Difficulties with handwriting: Yes (moderate) Difficulties with doing hobbies and other activities: Yes (slight) Difficulties turning in bed: 0 (none) Difficulties getting out of bed, car or chair: No Tremors/Gait/Balance Shaking or tremors: 0 (none) Walking and balance problems: Yes (mild) Number of falls in the Last Month: Countless. Had ER visit with stiches. He doesn't use a walker inthe house because its small. Gait freezin (none) Autonomic/Pain Lightheadeness on standing: Yes (mild) Urinary problems: Yes (moderate): Constipation problems: Yes (slight) Pain and other sensations: Yes (slight) Speech/Swallowing Speech problems: Yes (moderate): Drooling: Yes (severe): Chewing and swallowing problems: 0 (none) Sleep/Fatigue Problems sleeping at night: Yes (moderate): He was up from 2-6 last night. Daytime sleepiness: Yes (slight) Fatigue: No REM sleep behavior disorder: no Restless Legs Syndrome: no Mood/Behavior/Cognition Cognitive impairment: no No Data Recorded Hallucinations and delusions: no Apathy: no Depression: PQH-9 = 5 usually representing mild (5-9) depression. Anxiety: KAVIN-7 = 1 usually representing no significant (0-4) anxiety. Finally, the following table shows the patient's overall global physical and mental health using the PROMIS scale relative to the previous visit: PROMIS-10 Distance Health from 06/22/2021 in [facility] from 07/28/2020 in [facility] Global Physical Health T Score 50.8 44.9 Global Mental Health T Score 48.3 45.8 0-10 Standard Pain Scale 5 4 *PROMIS-10 scoring scale: mean = 50, over 50 is above average, under 50 is below average ALLERGIES Allergen Reactions Penicillins Unknown Current Outpatient Medications Medication Sig amantadine HCl (SYMMETREL) 100 mg capsule Take 1 capsule by mouth twice daily. solifenacin (VESICARE) 5 mg tablet Take 1 tablet by mouth once daily. traZODone (DESYREL) 50 mg tablet Take 1 tablet by mouth daily at bedtime. carbidopa-levodopa (RYTARY) 36.25-145 mg capsule 4 capsules at 8AM, and 4 capsules at 1PM, and at 6PM. (Patient taking differently: 4 capsules four times daily. (3) capsules at 8AM, and (4) capsules at 1PM, and at 6PM and then take (1) capsule at bedtime ) rasagiline (AZILECT) 1 mg tab Take 1 tablet by mouth once daily. senna (SENOKOT) 8.6 mg tab TAKE 1 tablet BID aspirin, enteric coated (ADULT LOW DOSE ASPIRIN) 81 mg EC tablet Take 1 tablet by mouth once daily. tamsulosin (FLOMAX) 0.4 mg cp24 Take 1 capsule by mouth once daily. No current facility-administered medications for this visit. Objective He has a soft slightly hoarse voice. There is mild bradykinesia bilaterally. There is no tremor. . General Neurological Examination: Assessment and Plan: Assessment Mr. Larsen is a left-handed 70 year old male with idiopathic Parkinson's disease and frequent falls. The following are the current problems noted and addressed during this visit: Parkinson's disease (hcc) (primary encounter diagnosis) Plan 06/22/2021 Visit: Parkinson's disease - Stable. Falls - Work on using the walker or not making quick moves Urgency - Try Vesicare 5 mg daily Insomnia - Try trazedone 50 mg at bedtime. Updated Parkinson's Medication Schedule: 8AM 100AM 600PM Bedtime Rytary 145 3 4 4 1 rasagiline 1.0 mg 1 Amantadine 100 mg 1 1 Return at or around: 10/20/21 Medical Decision Making: Problems: Moderate: 1+ chronic illnesses with change and 2+ stable chronic illnesses Risk: Moderate: Drug management Medical Decision Making Level: 4 - Moderate Thank you for allowing me to be part of the clinical care of this patient! I look forward to continued participation in the patient s care with you. Please do not hesitate to call with any questions. Sincerely, Juan R John MD documented in this encounterDoctors Hospital11-10-2021 NoteHNO ID: [id number] Author: Nikkie Arriaga APRN.DOUGH MIXING MACHINE OPERATOR Service: ? Author Type: Nurse Practitioner Type: Progress Notes Filed: 12/29/2020 3:42 PM Note Text: [facility] - FOLLOW UP EVALUATION Jaiden Rivera, DO [address] [facility] [id number] I had the pleasure of seeing Mr. Larsen for follow up today. He is a 70 year old left-handed male with a history of Parkinson's disease complicated by motor fluctuations and dyskinesia since 2012. He is seen with his . Subjective Previous Plan-07/28/2020 Visit: ? Parkinson's disease - I have placed orders for Inbrija for you. Use 2 capsules in the inhaler as needed up to 5 times daily. Use in time periods where you wear off significantly between Rytary doses. ? Deconditioinng - I am ordering PT Interval History Botox helping both foot dystonia. Dyskinesias start after first dose of Rytary and last most of the day. Describes it as bothersome and annoying. Mostly dyskinesia in the legs. Worst time for dyskinesia is when he wakes up at night about 2 hours after he takes Sinemet 25/100 at bedtime. Has not tried Inbrija yet. Started drooling around dinner time. Parkinson's symptoms are controlled. Medications last dose to dose. Fell and fractured 4 ribs. Parkinson's Medication Schedule - as of the start of the visit: 8AM 100AM 600PM Bedtime Rytary 145 4 4 4 Sinemet 25/100mg 1 rasagiline 1.0 mg 1 Amantadine 100 mg 1 1 Parkinson's Motor Complications Medication benefit onset: 30 minutes Medication duration: 4 hours Wearing off: yes Painful off-state dystonia: yes Dyskinesia: yes Prior Anti-Parkinson Therapies Amantadine IR Carbidopa/Levodopa ER (Rytary) Rasagiline ALLERGIES Allergen Reactions - Penicillins Unknown Current Outpatient Medications Medication Sig - carbidopa-levodopa CR (SINEMET CR) 25-100 mg per tablet Take 1 tablet by mouth daily at bedtime. - amantadine HCl (SYMMETREL) 100 mg capsule Take 1 capsule by mouth twice daily. - carbidopa-levodopa (RYTARY) 36.25-145 mg capsule 4 capsules at 8AM, and 4 capsules at 1PM, and at 6PM. (Patient taking differently: 4 capsules four times daily. 4 capsules at 8AM, and 4 capsules at 1PM, and at 6PM. ) - rasagiline (AZILECT) 1 mg tab Take 1 tablet by mouth once daily. - senna (SENOKOT) 8.6 mg tab TAKE 1 tablet BID - aspirin, enteric coated (ADULT LOW DOSE ASPIRIN) 81 mg EC tablet Take 1 tablet by mouth once daily. - tamsulosin (FLOMAX) 0.4 mg cp24 Take 1 capsule by mouth once daily. No current facility-administered medications for this visit. Objective Vital Signs: Ht 170.2 cm (5' 7) Wt 61.2 kg (135 lb) BMI 21.14 kg/m? General Physical Examination: He is accompanied by his spouse. General: Awake, alert, interactive, no acute distress, good nutritional status, normal development, well-kept man. Dyskinesias in the legs. Movement Disorders Scales Performed: MDS-UPDRS Motor subscale condition of exam Medication Off/On/Naiive Time of UPDRS Time of Last Medication Last Medication Taken DBS Right DBS Left MDS-UPDRS Motor subscale scores Speech Facial Expression Rigidity Neck Rigidity Right Upper Extremity Rigidity Left Upper Extremity Rigidity Right Lower Extremity Rigidity Left Lower Extremity Finger Taps Right Finger Taps Left Hand Movements Right Hand Movements Left Arm Movements Right Arm Movements Left Toe Taps Right Toe Taps Left Leg Agility Right Leg Agility Left Arise From Chair Gait Gait Freezing Posture Stability Posture Body Bradykinesia Postural Tremor Hand Right Postural Tremor Hand Left Kinetic Tremor Right Kinetic Tremor Left Rest Tremor Amplitude Right Upper Extremity Rest Tremor Amplitude Left Upper Extremity Rest Tremor Amplitude Right Lower Extremity Rest Tremor Amplitude Right Lower Extremity Rest Tremor Amplitude Lip/Jaw Rest Tremor Constancy MDS-UPDRS Motor subscale totals Left Total Right Total Midline Total Tremor Total / 10 PIGD Total / 3 Overall Total % Change Compared to Last Filed Total Assessment and Plan: Assessment Mr. Larsen is a left-handed 70 year old male with idiopathic Parkinson's disease. The following are the current problems noted and addressed during this visit: Parkinson's disease (hcc) (primary encounter diagnosis) Dystonia of foot Memory loss Neurologic gait dysfunction Falls frequently Plan 12/27/2020 Visit: ? Parkinson's Disease - Decrease Rytary to 4 capsules at 8a, 3 caps at 1p, 3 caps at 6p, 1 cap at 1p. ? STOP bedtime Sinemet 25/100 ? Attention concerns - Neuropsychological testing. ? Balance issues/falls: Physical therapy order. IUpdated Parkinson's Medication Schedule: 8AM 100AM 600PM Bedtime Rytary 145 4 3 3 1 Sinemet 25/100mg STOP rasagiline 1.0 mg 1 Amantadine 100 mg 1 1 Follow up: 3 months My schedule Visit Type: Virtual Billing: Level of service : 19759 (40- (more content not included)...[facility] noteNo assessment information availableWVan Wert [facility] Work Phone: Evaluation note* Diagnosis Parkinson's disease (HCC)- Primary Paralysis agitans [facility] Diagnosis Parkinson's disease (HCC)- Primary Paralysis agitans Neurologic gait dysfunction Abnormality of gait [facility]* Diagnosis Onset Date Resolution Status Elbow abrasion, infected acu te [facility] Work Phone: Evaluation note* Diagnosis Parkinson's disease (HCC)- Primary Paralysis agitans [facility]* Diagnosis Onset Date Resolution Status Elbow abrasion, infected acu te Cellulitis acute Lactic acidosis acute Sepsis acute Parkinson disease chronic [facility] Work Phone: Evaluation note* Diagnosis Parkinson's disease (HCC)- Primary Paralysis agitans [facility]* Diagnosis Onset Date Resolution Status Elbow abrasion, infected acu te Lactic acidosis resolved Parkinson disease resolved [facility] Work Phone: Evaluation note* Diagnosis Onset Date Resolution Status Lactic acidosis resolved Parkinson disease resolved [facility] Work Phone: Evaluation note* Diagnosis Parkinson's disease (HCC)- Primary Paralysis agitans [facility] Dystonia of foot- Primary Abnormal involuntary movements [facility] Parkinson's disease (HCC)- Primary Paralysis agitans [facility] Diagnosis Parkinson's disease (HCC)- Primary Paralysis agitans Decreased activities of daily living (ADL) [facility] Diagnosis Parkinson's disease (HCC)- Primary Paralysis agitans [facility] Diagnosis Parkinson's disease (HCC) Paralysis agitans [facility] Diagnosis Parkinson's disease (HCC)- Primary Paralysis agitans Hereditary and idiopathic peripheral neuropathy Unspecified hereditary and idiopathic peripheral neuropathy Abnormality of gait At high risk for falls Personal history of fall Severe protein-calorie malnutrition (HCC) Other severe protein-calorie malnutrition Impaired mobility and ADLs Other ill-defined conditions [facility] Diagnosis Parkinson's disease (HCC)- Primary Paralysis agitans [facility] Diagnosis Decreased activities of daily living (ADL)- Primary Parkinson's disease (HCC) Paralysis agitans [facility] Diagnosis Onset Date Resolution Status Cellulitis of left anterior lower leg acute History of Parkinson's disease acute Sepsis acute [facility] Work Phone: Evaluation note* Diagnosis Dystonia of foot- Primary Abnormal involuntary movements [facility]* Diagnosis Parkinson's disease without dyskinesia, with fluctuating manifestations- Primary Dysphagia, unspecified type [facility]* Diagnosis Encounter for palliative care- Primary Parkinson's disease with dyskinesia and fluctuating manifestations Oropharyngeal dysphagia Dysphagia, oropharyngeal phase Muscle cramps Cramp of limb Night muscle spasms Spasm of muscle Generalized weakness Other malaise and fatigue Chronic insomnia Insomnia, unspecified [facility]* Diagnosis Dysphagia, unspecified type- Primary Parkinson's disease with dyskinesia and fluctuating manifestations 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 [facility]* Diagnosis Parkinson's disease with fluctuating manifestations, unspecified whether dyskinesia present (HCC)- Primary documented in this encounter [facility] [place] note* Diagnosis Dysphagia, unspecified type- Primary Parkinson's disease without dyskinesia or fluctuating manifestations (HCC) documented in this encounter [facility] note* Diagnosis NO SHOW- Primary documented in this encounter [facility] note* Diagnosis Onset Date Resolution Status Debility acute Esophagitis acute Muscle spasm acute Oropharyngeal dysphagia acut e Overactive bladder acute Parkinson disease acute S/P percutaneous endoscopic gastrostomy (PEG) tube placement acute Severe protein-calorie malnutrition acute BPH (benign prostatic hyperplasia) chronic DMII (diabetes mellitus, type 2) chronic HTN (hypertension) chronic Hyponatremia resolved Stage II pressure sore resol raymond UTI (urinary tract infection) resolved Debility acute Failure to thrive acute GERD (gastroesophageal reflux disease) acute Overactive bladder acute Parkinson disease acute HTN (hypertension) chronic [facility] Work Phone: Evaluation note* Diagnosis Onset Date Resolution Status Debility acute Failure to thrive acute GERD (gastroesophageal reflux disease) acute Overactive bladder acute Parkinson disease acute HTN (hypertension) chronic [facility] Work Phone: Evaluation note* Diagnosis Parkinson's disease without dyskinesia, with fluctuating manifestations (HCC)- Primary Dystonia of foot Abnormal involuntary movements [facility] Diagnosis Dystonia of foot- Primary Abnormal involuntary movements documented in this encounter [facility] [place] note* Diagnosis Overactive bladder- Primary 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 fluctuating manifestations (HCC) Dystonia Abnormal involuntary movements Urinary tract infection without hematuria, site unspecified Insomnia due to medical condition Insomnia due to medical condition classified elsewhere [facility]* Diagnosis Dystonia of foot- Primary Abnormal involuntary movements documented in this encounter [facility]* Diagnosis Urinary incontinence, unspecified type- Primary Overactive bladder Hypertonicity of bladder Urinary tract infection without hematuria, site unspecified documented in this encounter [facility] [place] note* Diagnosis Onset Date Resolution Status Debility acute Esophagitis acute Hyponatremia acute Muscle spasm acute Oropharyngeal dysphagia acut e Overactive bladder acute Parkinson disease acute S/P percutaneous endoscopic gastrostomy (PEG) tube placement acute Severe protein-calorie malnutrition acute BPH (benign prostatic hyperplasia) chronic DMII (diabetes mellitus, type 2) chronic HTN (hypertension) chronic Stage II pressure sore resol raymond UTI (urinary tract infection) resolved [facility] Work Phone: Evaluation note* Diagnosis Parkinson's disease with dyskinesia and fluctuating manifestations (HCC)- Primary Dysphagia, unspecified type Dystonia Abnormal involuntary movements documented in this encounter [facility] note* Diagnosis Dystonia of foot- Primary Abnormal involuntary movements documented in this encounter [facility] note* Diagnosis Insomnia due to medical condition Insomnia due to medical condition classified elsewhere Dystonia Abnormal involuntary movements documented in this encounter [facility] note* Diagnosis Dystonia of extremity- Primary documented in this encounter [facility] note* Diagnosis Parkinson's disease with dyskinesia and fluctuating manifestations (HCC)- Primary Depression, unspecified depression type Drooling Disturbance of salivary secretion Dystonia of extremity documented in this encounter [facility] Discharge instructions Additional Instructions Wear your finger splint until cleared by orthopedics.[facility] Work Phone: Reason for referral (narrative)* Diagnostic Procedure Only (Routine) - Pending Review Specialty Diagnoses / Procedures Referred By Naresh t Referred To Contact XR IMAGING Diagnoses Parkinson's disease without dyskinesia, with fluctuating manifestations Procedures XR MODIFIED BARIUM SWALLOW W SPEECH THERAPY RADIOLOGIC EXAM SWALLOW FUNCTION CONTRAST STUDY Juan R John MD [address] [id number] Xr Imaging [place] [address] Referral ID Status Reason Start Date Expiration Date Visits Requested Visits Authorized [id number] Pending Review Auto-Generat ed Referral 12/24/2022 01/23/2024 1 1 [facility] Summary Purpose Family History No Family History Records Found Mother Name Dates Details Family history of tremor(V17 .2, Z82.0) Status:Active Relationship Condition Age at Onset Recorded Date/T akil Unknown Family History?- Unknown April 19, 2019 4:30pm Family History?- Unknown April 19, 2019 4:30pm Family History?No pe rtinent history Unknown October 25, 2017 5:55am Relationship Condition Age at Onset Recorded Date/T akil Not Specified Parkinson's disease Unknown Relationship Condition Age at Onset Recorded Date/T akil father Diabetes mellitus Unknown Hypertension Unknown Hyperlipidemia Unknown Transient ischemic attack Unknown mother Hypertension Unknown Disorder of thyroid Unknown Advance Directives No Advanced Directives Records Found Advance Directive Response Recorded Date/ Time Living Will Yes October 28, 2019 2:52pm Power of Mustanger Yes October 2:52pm Advance Directive Response Recorded Date/ Time Name of Medical Power of Mustanger Sloane ford June 06, 2021 11:54am Living Will Yes June 06, 2021 11:54am Power of Mustanger Yes June 06 11:54am Advance Directive Response Recorded Date/ Time Name of Medical Power of Mustanger Margarita Frazier e October 07, 2021 1:31pm Living Will Yes October 07 1:31pm Power of Mustanger Yes October 07, 2 022 1:31pm Advance Directive Response Recorded Date/ Time Name of Medical Power of Mustanger sloane, October 07, 2021 4:05pm Living Will Yes October 07 4:05pm Power of Mustanger Yes October 07, 2 022 4:05pm Advance Directive Response Recorded Date/ Time Name of Medical Power of Mustanger sloane, October 07, 2021 3:05pm Living Will Yes October 07 3:05pm Power of Mustanger Yes October 07, 2 022 3:05pm Advance Directive Response Recorded Date/ Time Living Will No March 25 8:44pm Power of Mustanger No March 25, 2022 8:44pm Advance Directive Response Recorded Date/ Time Name of Medical Power of Mustanger July 23, 2022 2:31pm Living Will Yes July 23, 2022 2 :31pm Power of Mustanger Yes July 23, 2022 2:31pm Advance Directive Response Recorded Date/ Time Living Will Yes December 25 1:43pm Power of Mustanger Yes December 25, 2022 1:43pm Name of Medical Power of Mustanger MARGARITA FORD December 25, 2022 1:43pm Latest Code Status on File Code Status Date Activated Date Inactivated Comments Full Code 12/25/2022 10:48 PM Question Answer Comments Full Code Order Discussed With: Patient Latest Code Status on File Code Status Date Activated Date Inactivated Comments Full Code 12/25/2022 10:48 PM Question Answer Comments Full Code Order Discussed With: Patient Latest Code Status on File Code Status Date Activated Date Inactivated Comments Full Code 12/25/2022 10:48 PM 01/15/2023 12:32 AM Question Answer Comments Full Code Order Discussed With: Patient Date Activated Date Inactivated Comments 12/25/2022 10:48 PM 01/15/2023 12:32 AM Question Answer Comments Full Code Order Discussed With: Patient Advance Directive Response Recorded Date/ Time Name of Medical Power of Mustanger Yamileth barreto, January 15, 2023 5:45pm Name of Medical Power of Mustanger Sloane Sy , February 28, 2023 4:22pm Living Will Yes February 28 4:22pm Power of Mustanger Yes February 28, 2023 4:22pm Advance Directive Response Recorded Date/ Time Name of Medical Power of Mustanger Sloane Sy , February 28, 2023 4:22pm Living Will Yes February 28 4:22pm Power of Mustanger Yes February 28, 2023 4:22pm Date Activated Date Inactivated Comments 12/25/2022 10:48 PM 01/15/2023 12:32 AM Question Answer Comments Full Code Order Discussed With: Patient Advance Directive Response Recorded Date/ Time Name of Medical Power of Mustanger MARGARITA FORD December 25, 2022 1:43pm Name of Medical Power of Mustanger Yamileth barreto, January 15, 2023 4:45pm Living Will Yes January 15, 2 023 4:45pm Power of Mustanger Yes January 15, 2023 4:45pm Chief Complaint and Reason for Visit Chief Complaint PARKINSON'S/RX HERE Chief Complaint HEAD INJURY SUTURE REMOVAL INFECTION ON ELBOW PARKINSONS.RX HERE Reason for Visit Elbow abrasion, infe cted Chief Complaint SUTURE REMOVAL INFECTION ON ELBOW PARKINSONS.RX HERE CELLULITIS concern for cellulitis Reason for Visit Elbow abrasion, infe cted Cellulitis Lactic acidosis Sepsis Parkinson disease Chief Complaint SUTURE REMOVAL INFECTION ON ELBOW PARKINSONS.RX HERE CELLULITIS concern for cellulitis Cellulitis Cellulitis Reason for Visit Elbow abrasion, infe cted Cellulitis Lactic acidosis Sepsis Parkinson disease Chief Complaint INFECTION ON ELBOW PARKINSONS.RX HERE CELLULITIS concern for cellulitis Cellulitis Cellulitis Reason for Visit Elbow abrasion, infe cted Lactic acidosis Parkinson disease Chief Complaint PARKINSONS.RX HERE CELLULITIS concern for cellulitis Cellulitis Cellulitis Reason for Visit Lactic acidosis Parkinson disease Chief Complaint FINGER Chief Complaint FINGER SEPSIS DUE TO CELLULITIS Reason for Visit Cellulitis of left a nterior lower leg History of Parkinson's disease Sepsis Chief Complaint GENERAL ILLNESS Chief Complaint PARKINSONS Parkinson's disease Parkinson's disease Parkinson's disease Parkinson's disease DEBILITY CLAUDICTION Reason for Visit Debility Esophagitis Muscle spasm Oropharyngeal dysphagia Overactive bladder Parkinson disease S/P percutaneous endoscopic gastrostomy (PEG) tube placement Severe protein-calorie malnutrition BPH (benign prostatic hyperplasia) DMII (diabetes mellitus, type 2) HTN (hypertension) Hyponatremia Stage II pressure sore UTI (urinary tract infection) Debility Failure to thrive GERD (gastroesophageal reflux disease) Overactive bladder Parkinson disease HTN (hypertension) Chief Complaint DEBILITY CLAUDICTION Reason for Visit Debility Failure to thrive GERD (gastroesophageal reflux disease) Overactive bladder Parkinson disease HTN (hypertension) Chief Complaint GENERAL ILLNESS PARKINSONS Parkinson's disease Parkinson's disease Parkinson's disease Parkinson's disease Parkinson's disease Parkinson's disease Parkinson's disease Reason for Visit Debility Esophagitis Hyponatremia Muscle spasm Oropharyngeal dysphagia Overactive bladder Parkinson disease S/P percutaneous endoscopic gastrostomy (PEG) tube placement Severe protein-calorie malnutrition BPH (benign prostatic hyperplasia) DMII (diabetes mellitus, type 2) HTN (hypertension) Stage II pressure sore UTI (urinary tract infection) Reason for Referral Specialty Diagnoses / Procedures Referred By Naresh massey Referred To Contact Diagnoses Parkinson's disease (HCC) Procedures PROVIDER ORDERED FOLLOW UP OFFICE/OUTPATIENT [facility] 60-74 MINUTES Juan R John MD [address] [place] [address] Referral ID Status Reason Start Date Expiration Date Visits Requested Visits Authorized [id number] Authorized PCP Requested Referral 06/22/2021 09/20/2021 1 1 Specialty Diagnoses / Procedures Referred By Naresh massey Referred To Contact Physical Therapy Diagnoses Parkinson's disease (HCC) Neurologic gait dysfunction Procedures CONSULT TO PHYSICAL THERAPY Juan R John MD [address] [place] [address] Referral ID Status Reason Start Date Expiration Date Visits Requested Visits Authorized [id number] Ref Not Required PCP Requested Referral 07/20/2021 07/20/2022 99 99 Specialty Diagnoses / Procedures Referred By Contac t Referred To Contact [facility] Diagnoses Parkinson's disease (HCC) Procedures CONSULT TO SPEECH THERAPY OFFICE/OUTPATIENT [facility] MDM 60-74 MINUTES Juan R John MD [address] [phone] [place] [address] Referral ID Status Reason Start Date Expiration Date Visits Requested Visits Authorized [id number] Authorized Auto-Generat ed Referral 11/23/2021 11/23/2022 99 99 Specialty Diagnoses / Procedures Referred By Contac t Referred To Contact [facility] Diagnoses Parkinson's disease (HCC) Procedures CONSULT TO CONTINUITY DIRECTOR OCCUPATIONAL THERAPY EVAL HIGH COMPLEX 60 [place] [address] [place] [address] [place] [address] Referral ID Status Reason Start Date Expiration Date Visits Requested Visits Authorized [id number] Authorized PCP Requested Referral Auto-Generate d Referral 11/23/2021 11/23/2022 99 99 Specialty Diagnoses / Procedures Referred By Contac t Referred To Contact [facility] Diagnoses Parkinson's disease (HCC) Procedures CONSULT TO PHYSICAL THERAPY PHYSICAL THERAPY EVALUATION HIGH COMPLEX 45 MINS Juan R John MD [address] [place] [address] [place] [address] Referral ID Status Reason Start Date Expiration Date Visits Requested Visits Authorized [id number] Authorized PCP Requested Referral Auto-Generate d Referral 11/23/2021 11/23/2022 99 99 Referral ID Status Reason Start Date Expiration Date Visits Requested Visits Authorized [id number] Authorized PCP Requested Referral 05/15/2022 1 1 Specialty Diagnoses / Procedures Referred By Contact Referred To Contact Neurology / NEUROLOGICAL TENRIISM Diagnoses Parkinson's disease (HCC) Procedures CONSULT TO PARKINSONS [facility]ULTIDISCIPLINARY CLINIC OFFICE/OUTPATIENT [facility] 60-74 MINUTES Juan R John MD [address] [place] [address] [facility] [address] [place] [address] Referral ID Status Reason Start Date Expiration Date Visits Requested Visits Authorized [id number] Authorized PCP Requested Referral 02/14/2023 1 1 Specialty Diagnoses / Procedures Referred By Contac t Referred To Contact [facility] Diagnoses Parkinson's disease (HCC) Procedures SPEECH REHAB FOLLOW UP ORDER TX SPEECH LANG VOICE COMMJ &/AUDITORY PROC IND [facility] [address] [place] [address] [facility] [address] [address] Referral ID Status Reason Start Date Expiration Date Visits Requested Visits Authorized [id number] Pending Review PCP Requested Referral Auto-Generate d Referral 04/02/2022 07/01/2022 1 1 Specialty Diagnoses / Procedures Referred By Contac t Referred To Contact Diagnoses Parkinson's disease (HCC) Procedures CONSULT TO SPEECH THERAPY Carolina Damon MD [address] [address] Referral ID Status Reason Start Date Expiration Date Visits Requested Visits Authorized [id number] Authorized PCP Requested Referral 04/02/2022 07/01/2022 99 99 Specialty Diagnoses / Procedures Referred By Contac t Referred To Contact [facility] Diagnoses Parkinson's disease (HCC) Procedures CONSULT TO CONTINUITY DIRECTOR OCCUPATIONAL THERAPY EVAL HIGH COMPLEX 60 MINS Carolina Damon MD [address] [facility] [address] [address] Referral ID Status Reason Start Date Expiration Date Visits Requested Visits Authorized [id number] Authorized PCP Requested Referral Auto-Generate d Referral 04/02/2022 04/02/2023 99 99 Specialty Diagnoses / Procedures Referred By Contac t Referred To Contact [facility] Diagnoses Parkinson's disease (HCC) Procedures CONSULT TO PHYSICAL THERAPY PHYSICAL THERAPY EVALUATION HIGH COMPLEX 45 MINS Carolina Damon MD [address] [place] [address] [facility] [place] [address] [place] [address] Referral ID Status Reason Start Date Expiration Date Visits Requested Visits Authorized [id number] Authorized PCP Requested Referral Auto-Generate d Referral 04/02/2022 04/02/2023 99 99 Specialty Diagnoses / Procedures Referred By Contac t Referred To Contact Diagnoses Parkinson's disease without dyskinesia, with fluctuating manifestations (HCC) Procedures PROVIDER ORDERED FOLLOW UP OFFICE/OUTPATIENT [facility] 60 MINUTES Juan R John MD [address] [phone] Referral ID Status Reason Start Date Expiration Date Visits Requested Visits Authorized [id number] Authorized PCP Requested Referral 07/17/2023 10/15/2023 1 1 Specialty Diagnoses / Procedures Referred By Contac t Referred To Contact Diagnoses Parkinson's disease with dyskinesia and fluctuating manifestations (HCC) Procedures PROVIDER ORDERED FOLLOW UP OFFICE/OUTPATIENT [facility] 60 MINUTES Taisha John, MARII.DOUGH MIXING MACHINE OPERATOR [address] [address] Referral ID Status Reason Start Date Expiration Date Visits Requested Visits Authorized [id number] Authorized PCP Requested Referral 11/06/2024 1 1 Specialty Diagnoses / Procedures Referred By Contac t Referred To Contact Urology Diagnoses Overactive bladder Urinary tract infection without hematuria, site unspecified Procedures CONSULT TO UROLOGY OFFICE/OUTPATIENT [facility] 60 MINUTES Taisha John, MARII.DOUGH MIXING MACHINE OPERATOR [address] [place] [address] [address] Referral ID Status Reason Start Date Expiration Date Visits Requested Visits Authorized [id number] Authorized PCP Requested Referral 11/07/2023 11/06/2024 1 1 Medications Administered Section Inactive Administered Medications - up to 3 most recent administrations Medication Order MAR Action Action Date Dose Rate Site onabotulinum toxin type A 200 Units injection (BOTOX) 200 Units, INTRAMUSCULAR, ONCE, 1 dose, On Fri02/26/22 at 1130, REFRIGERATE - Pharmaceutical Waste: Lab Pack - Given 02/26/2022 4:10 PM EST 130 Units Other Inactive Administered Medications - up to 3 most recent administrations Medication Order MAR Action Action Date Dose Rate Site onabotulinum toxin type A 200 Units injection (BOTOX) 200 Units, INTRAMUSCULAR, ONCE, 1 dose, On 09/20/22 at 0930, REFRIGERATE - Pharmaceutical Waste: Lab Pack - Given 09/20/2022 9:24 AM EDT 200 Units Other Additional Source Comments (unrecognized sect ion and content) No Status Records FoundNo Status Records FoundNo Status Records FoundNo Status Records FoundNo Status Records FoundNo Status Records FoundNo Status Records FoundNo Status Records FoundNo Status Records Found INFORMATION SOURCE (unrecogn ized section and content) DATE CREATED AUTHOR 08/08/2017 [facility] DATE CREATED AUTHOR AUTHOR'S ORGANIZ ATION 10/10/2017 [facility] DATE CREATED AUTHOR AUTHOR'S ORGANIZ ATION 01/14/2018 [facility] DATE CREATED AUTHOR AUTHOR'S ORGANIZ ATION 06/12/2018 [facility] DATE CREATED AUTHOR AUTHOR'S ORGANIZ ATION 09/17/2018 [facility] DATE CREATED AUTHOR AUTHOR'S ORGANIZ ATION 12/30/2020 [facility] DATE CREATED AUTHOR AUTHOR'S ORGANIZ ATION 05/28/2023 [facility] DATE CREATED AUTHOR AUTHOR'S ORGANIZ ATION 12/27/2023 [facility] DATE CREATED AUTHOR AUTHOR'S ORGANIZ ATION 07/27/2024 [facility] Goals (unrecognized section and content) Goals may be documented in a n alternate sectionGoals may be documented in an alternate sectionGoals may be documented in an alternate sectionGoals may be documented in an alternate sectionGoals may be documented in an alternate sectionGoals may be documented in an alternate section Source Comments (unrecognize d section and content) In the event this informatio n is protected by the Federal Confidentiality of Alcohol and Drug Abuse Patient Records regulations: The Federal rules restrict any use of the information to criminally investigate or prosecute any alcohol or drug abuse patient.[facility] the event this information is protected by the Federal Confidentiality of Alcohol and Drug Abuse Patient Records regulations: The Federal rules restrict any use of the information to criminally investigate or prosecute any alcohol or drug abuse patient.[facility] Hospital[facility] the event this information is protected by the Federal Confidentiality of Alcohol and Drug Abuse Patient Records regulations: The Federal rules restrict any use of the information to criminally investigate or prosecute any alcohol or drug abuse patient.[facility] Hospital[facility] the event this information is protected by the Federal Confidentiality of Alcohol and Drug Abuse Patient Records regulations: The Federal rules restrict any use of the information to criminally investigate or prosecute any alcohol or drug abuse patient.[facility] Hospital[facility] the event this information is protected by the Federal Confidentiality of Alcohol and Drug Abuse Patient Records regulations: The Federal rules restrict any use of the information to criminally investigate or prosecute any alcohol or drug abuse patient.[facility] HospitalIn the event this information is protected by the Federal Confidentiality of Alcohol and Drug Abuse Patient Records regulations: The Federal rules restrict any use of the information to criminally investigate or prosecute any alcohol or drug abuse patient.[facility] HospitalIn the event this information is protected by the Federal Confidentiality of Alcohol and Drug Abuse Patient Records regulations: The Federal rules restrict any use of the information to criminally investigate or prosecute any alcohol or drug abuse patient.[facility] HospitalIn the event this information is protected by the Federal Confidentiality of Alcohol and Drug Abuse Patient Records regulations: The Federal rules restrict any use of the information to criminally investigate or prosecute any alcohol or drug abuse patient.[facility] HospitalIn the event this information is protected by the Federal Confidentiality of Alcohol and Drug Abuse Patient Records regulations: The Federal rules restrict any use of the information to criminally investigate or prosecute any alcohol or drug abuse patient.[facility] HospitalIn the event this information is protected by the Federal Confidentiality of Alcohol and Drug Abuse Patient Records regulations: The Federal rules restrict any use of the information to criminally investigate or prosecute any alcohol or drug abuse patient.[facility] HospitalIn the event this information is protected by the Federal Confidentiality of Alcohol and Drug Abuse Patient Records regulations: The Federal rules restrict any use of the information to criminally investigate or prosecute any alcohol or drug abuse patient.[facility] HospitalIn the event this information is protected by the Federal Confidentiality of Alcohol and Drug Abuse Patient Records regulations: The Federal rules restrict any use of the information to criminally investigate or prosecute any alcohol or drug abuse patient.[facility] HospitalIn the event this information is protected by the Federal Confidentiality of Alcohol and Drug Abuse Patient Records regulations: The Federal rules restrict any use of the information to criminally investigate or prosecute any alcohol or drug abuse patient.[facility] HospitalIn the event this information is protected by the Federal Confidentiality of Alcohol and Drug Abuse Patient Records regulations: The Federal rules restrict any use of the information to criminally investigate or prosecute any alcohol or drug abuse patient.[facility] HospitalIn the event this information is protected by the Federal Confidentiality of Alcohol and Drug Abuse Patient Records regulations: The Federal rules restrict any use of the information to criminally investigate or prosecute any alcohol or drug abuse patient.[facility] HospitalIn the event this information is protected by the Federal Confidentiality of Alcohol and Drug Abuse Patient Records regulations: The Federal rules restrict any use of the information to criminally investigate or prosecute any alcohol or drug abuse patient.[facility] HospitalIn the event this information is protected by the Federal Confidentiality of Alcohol and Drug Abuse Patient Records regulations: The Federal rules restrict any use of the information to criminally investigate or prosecute any alcohol or drug abuse patient.[facility] HospitalIn the event this information is protected by the Federal Confidentiality of Alcohol and Drug Abuse Patient Records regulations: The Federal rules restrict any use of the information to criminally investigate or prosecute any alcohol or drug abuse patient.[facility] HospitalIn the event this information is protected by the Federal Confidentiality of Alcohol and Drug Abuse Patient Records regulations: The Federal rules restrict any use of the information to criminally investigate or prosecute any alcohol or drug abuse patient.[facility] HospitalIn the event this information is protected by the Federal Confidentiality of Alcohol and Drug Abuse Patient Records regulations: The Federal rules restrict any use of the information to criminally investigate or prosecute any alcohol or drug abuse patient.[facility] HospitalIn the event this information is protected by the Federal Confidentiality of Alcohol and Drug Abuse Patient Records regulations: The Federal rules restrict any use of the information to criminally investigate or prosecute any alcohol or drug abuse patient.[facility] HospitalIn the event this information is protected by the Federal Confidentiality of Alcohol and Drug Abuse Patient Records regulations: The Federal rules restrict any use of the information to criminally investigate or prosecute any alcohol or drug abuse patient.[facility] HospitalIn the event this information is protected by the Federal Confidentiality of Alcohol and Drug Abuse Patient Records regulations: The Federal rules restrict any use of the information to criminally investigate or prosecute any alcohol or drug abuse patient.[facility] HospitalIn the event this information is protected by the Federal Confidentiality of Alcohol and Drug Abuse Patient Records regulations: The Federal rules restrict any use of the information to criminally investigate or prosecute any alcohol or drug abuse patient.[facility] HospitalIn the event this information is protected by the Federal Confidentiality of Alcohol and Drug Abuse Patient Records regulations: The Federal rules restrict any use of the information to criminally investigate or prosecute any alcohol or drug abuse patient.[facility] HospitalIn the event this information is protected by the Federal Confidentiality of Alcohol and Drug Abuse Patient Records regulations: The Federal rules restrict any use of the information to criminally investigate or prosecute any alcohol or drug abuse patient.[facility] HospitalIn the event this information is protected by the Federal Confidentiality of Alcohol and Drug Abuse Patient Records regulations: The Federal rules restrict any use of the information to criminally investigate or prosecute any alcohol or drug abuse patient.[facility] HospitalIn the event this information is protected by the Federal Confidentiality of Alcohol and Drug Abuse Patient Records regulations: The Federal rules restrict any use of the information to criminally investigate or prosecute any alcohol or drug abuse patient.[facility] HospitalIn the event this information is protected by the Federal Confidentiality of Alcohol and Drug Abuse Patient Records regulations: The Federal rules restrict any use of the information to criminally investigate or prosecute any alcohol or drug abuse patient.[facility] HospitalIn the event this information is protected by the Federal Confidentiality of Alcohol and Drug Abuse Patient Records regulations: The Federal rules restrict any use of the information to criminally investigate or prosecute any alcohol or drug abuse patient.[facility] HospitalIn the event this information is protected by the Federal Confidentiality of Alcohol and Drug Abuse Patient Records regulations: The Federal rules restrict any use of the information to criminally investigate or prosecute any alcohol or drug abuse patient.[facility] HospitalIn the event this information is protected by the Federal Confidentiality of Alcohol and Drug Abuse Patient Records regulations: The Federal rules restrict any use of the information to criminally investigate or prosecute any alcohol or drug abuse patient.[facility] HospitalIn the event this information is protected by the Federal Confidentiality of Alcohol and Drug Abuse Patient Records regulations: The Federal rules restrict any use of the information to criminally investigate or prosecute any alcohol or drug abuse patient.[facility] HospitalIn the event this information is protected by the Federal Confidentiality of Alcohol and Drug Abuse Patient Records regulations: The Federal rules restrict any use of the information to criminally investigate or prosecute any alcohol or drug abuse patient.[facility] HospitalIn the event this information is protected by the Federal Confidentiality of Alcohol and Drug Abuse Patient Records regulations: The Federal rules restrict any use of the information to criminally investigate or prosecute any alcohol or drug abuse patient.[facility] HospitalIn the event this information is protected by the Federal Confidentiality of Alcohol and Drug Abuse Patient Records regulations: The Federal rules restrict any use of the information to criminally investigate or prosecute any alcohol or drug abuse patient.[facility] HospitalIn the event this information is protected by the Federal Confidentiality of Alcohol and Drug Abuse Patient Records regulations: The Federal rules restrict any use of the information to criminally investigate or prosecute any alcohol or drug abuse patient.[facility] HospitalIn the event this information is protected by the Federal Confidentiality of Alcohol and Drug Abuse Patient Records regulations: The Federal rules restrict any use of the information to criminally investigate or prosecute any alcohol or drug abuse patient.[facility] HospitalIn the event this information is protected by the Federal Confidentiality of Alcohol and Drug Abuse Patient Records regulations: The Federal rules restrict any use of the information to criminally investigate or prosecute any alcohol or drug abuse patient.[facility] HospitalIn the event this information is protected by the Federal Confidentiality of Alcohol and Drug Abuse Patient Records regulations: The Federal rules restrict any use of the information to criminally investigate or prosecute any alcohol or drug abuse patient.[facility] HospitalIn the event this information is protected by the Federal Confidentiality of Alcohol and Drug Abuse Patient Records regulations: The Federal rules restrict any use of the information to criminally investigate or prosecute any alcohol or drug abuse patient.[facility] HospitalIn the event this information is protected by the Federal Confidentiality of Alcohol and Drug Abuse Patient Records regulations: The Federal rules restrict any use of the information to criminally investigate or prosecute any alcohol or drug abuse patient.[facility] HospitalIn the event this information is protected by the Federal Confidentiality of Alcohol and Drug Abuse Patient Records regulations: The Federal rules restrict any use of the information to criminally investigate or prosecute any alcohol or drug abuse patient.[facility] HospitalIn the event this information is protected by the Federal Confidentiality of Alcohol and Drug Abuse Patient Records regulations: The Federal rules restrict any use of the information to criminally investigate or prosecute any alcohol or drug abuse patient.[facility] HospitalIn the event this information is protected by the Federal Confidentiality of Alcohol and Drug Abuse Patient Records regulations: The Federal rules restrict any use of the information to criminally investigate or prosecute any alcohol or drug abuse patient.[facility] HospitalIn the event this information is protected by the Federal Confidentiality of Alcohol and Drug Abuse Patient Records regulations: The Federal rules restrict any use of the information to criminally investigate or prosecute any alcohol or drug abuse patient.[facility] HospitalIn the event this information is protected by the Federal Confidentiality of Alcohol and Drug Abuse Patient Records regulations: The Federal rules restrict any use of the information to criminally investigate or prosecute any alcohol or drug abuse patient.[facility] HospitalIn the event this information is protected by the Federal Confidentiality of Alcohol and Drug Abuse Patient Records regulations: The Federal rules restrict any use of the information to criminally investigate or prosecute any alcohol or drug abuse patient.[facility] HospitalIn the event this information is protected by the Federal Confidentiality of Alcohol and Drug Abuse Patient Records regulations: The Federal rules restrict any use of the information to criminally investigate or prosecute any alcohol or drug abuse patient.[facility] HospitalIn the event this information is protected by the Federal Confidentiality of Alcohol and Drug Abuse Patient Records regulations: The Federal rules restrict any use of the information to criminally investigate or prosecute any alcohol or drug abuse patient.[facility] HospitalIn the event this information is protected by the Federal Confidentiality of Alcohol and Drug Abuse Patient Records regulations: The Federal rules restrict any use of the information to criminally investigate or prosecute any alcohol or drug abuse patient.[facility] HospitalIn the event this information is protected by the Federal Confidentiality of Alcohol and Drug Abuse Patient Records regulations: The Federal rules restrict any use of the information to criminally investigate or prosecute any alcohol or drug abuse patient.[facility] HospitalIn the event this information is protected by the Federal Confidentiality of Alcohol and Drug Abuse Patient Records regulations: The Federal rules restrict any use of the information to criminally investigate or prosecute any alcohol or drug abuse patient.[facility] HospitalIn the event this information is protected by the Federal Confidentiality of Alcohol and Drug Abuse Patient Records regulations: The Federal rules restrict any use of the information to criminally investigate or prosecute any alcohol or drug abuse patient.[facility] HospitalIn the event this information is protected by the Federal Confidentiality of Alcohol and Drug Abuse Patient Records regulations: The Federal rules restrict any use of the information to criminally investigate or prosecute any alcohol or drug abuse patient.[facility] Reason for Visit (unrecogniz ed section and content) Reason Comments Neurotoxin Injection Specialty Diagnoses / Procedures Referred By Contact Referred To Contact NEUROLOGICAL TENRIISM Diagnoses Dystonia of foot Procedures BOTULINUM TOXIN A PER 1 UNIT CHEMODENERVATION ONE EXTREMITY 1-4 MUSCLE Carolina Damon MD [address] [address] Phone: tel: fax: Neurology [address] [address] Phone: tel: fax: Referral ID Status Reason Start Date Expiration Date V isits Requested Visits Authorized [id number] Authorized 02/17/2024 02/16/2025 99 99 Reason Comments PT Progress Note Specialty Diagnoses / Procedures Referred By Contac t Referred To Contact [facility] Diagnoses Parkinson's disease (HCC) Procedures CONSULT TO PHYSICAL THERAPY PHYSICAL THERAPY EVALUATION HIGH COMPLEX 45 MINS Juan R John MD [address] [place] [address] [facility] [address] [place] [address] Referral ID Status Reason Start Date Expiration Date Visits Requested Visits Authorized [id number] Authorized PCP Requested Referral Auto-Generate d Referral 02/17/2022 02/16/2023 99 99 Reason Comments Parkinson's Disease Reason Comments Orders Reason Comments Parkinson's Disease Specialty Diagnoses / Procedures Referred By Contac t Referred To Contact Diagnoses Parkinson's disease (HCC) Procedures PROVIDER ORDERED FOLLOW UP OFFICE/OUTPATIENT NEW HIGH MDM 60-74 MINUTES Juan R John MD [address] [place] [address] Referral ID Status Reason Start Date Expiration Date V isits Requested Visits Authorized [id number] Closed PCP Requested Referral 06/22/2021 09/20/2021 1 1 Reason Onset Date Comments Refill Request 09/13/2021 Reason Comments Parkinson's Disease Reason Onset Date Comments Refill Request 08/24/2021 Refill Request 02/08/2022 Reason Comments Parkinson's Disease Reason Comments Appointment Reason Comments Specialty Clinic Reason Comments Speech Evaluation Reason Comments OT EVAL OT Discharge Specialty Diagnoses / Procedures Referred By Contact Referred To Contact Occupational Therapy / OCCUPATIONAL THERAPY Diagnoses PD Clinic Procedures NEW OT PD CLINIC Taisha John, KEG INSPECTOR.DOUGH MIXING MACHINE OPERATOR [address] [place] [address] Jaimee Vazquez OTR/L [address] [place] [address] Referral ID Status Reason Start Date Expiration Date V isits Requested Visits Authorized [id number] Authorized 02/17/2022 02/16/2023 99 99 Specialty Diagnoses / Procedures Referred By Contact Referred To Contact Neurology / NEUROLOGICAL TENRIISM Diagnoses Parkinson's disease (HCC) Procedures CONSULT TO [facility]ISCIP[facility] OFFICE/OUTPATIENT NEW [facility] MDM 60-74 MINUTES Juan R John MD [address] [place] [address] [facility] [address] [place] [address] Referral ID Status Reason Start Date Expiration Date V isits Requested Visits Authorized [id number] Closed PCP Requested Referral 02/14/2022 02/14/2023 1 1 Reason Comments PT Eval Patient Education Reason Comments Consult Reason Comments OT Re-eval Specialty Diagnoses / Procedures Referred By Contac t Referred To Contact [facility] Diagnoses Parkinson's disease (HCC) Procedures CONSULT TO CONTINUITY DIRECTOR OCCUPATIONAL THERAPY EVAL [facility] COMPLEX 60 MINS Carolina Damon MD [address] [address] [facility] [address] [place] [address] Referral ID Status Reason Start Date Expiration Date Visits Requested Visits Authorized [id number] Authorized PCP Requested Referral Auto-Generate d Referral 04/02/2022 04/02/2023 99 99 Reason Comments Patient Update Reason Comments error Reason Onset Date Comments Refill Request 09/20/2022 Reason Comments Medication Question Reason Onset Date Comments Refill Request 10/22/2022 Reason Comments [address] Palliative Care Reason Onset Date Comments Refill Request 01/16/2023 Reason Comments Multiple Concerns Reason Comments Chronic Pain Reason Comments No Show Reason Comments Follow Up PD with dyskinesia Specialty Diagnoses / Procedures Referred By Contac t Referred To Contact Diagnoses Parkinson's disease without dyskinesia, with fluctuating manifestations (HCC) Procedures PROVIDER ORDERED FOLLOW UP OFFICE/OUTPATIENT NEW [facility] 60 MINUTES Juan R John MD [address] [place] [address] Referral ID Status Reason Start Date Expiration Date V isits Requested Visits Authorized [id number] Closed PCP Requested Referral 07/17/2023 10/15/2023 1 1 Reason Comments Consult [facility] Specialty Diagnoses / Procedures Referred By Contac t Referred To Contact Urology Diagnoses Overactive bladder Urinary tract infection without hematuria, site unspecified Procedures CONSULT TO UROLOGY OFFICE/OUTPATIENT NEW [facility] 60 MINUTES Taisha John, MARII.DOUGH MIXING MACHINE OPERATOR [address] [place] [address] Referral ID Status Reason Start Date Expiration Date V isits Requested Visits Authorized [id number] Closed PCP Requested Referral 11/07/2023 11/06/2024 1 1 Reason Onset Date Comments Refill Request 01/05/2024 Specialty Diagnoses / Procedures Referred By Contac t Referred To Contact Diagnoses Parkinson's disease with dyskinesia and fluctuating manifestations (HCC) Procedures PROVIDER ORDERED FOLLOW UP OFFICE/OUTPATIENT NEW [facility] 60 MINUTES Taisha John, MARII.JAYA [address] [place] [address] Referral ID Status Reason Start Date Expiration Date V isits Requested Visits Authorized [id number] Closed PCP Requested Referral 02/06/2024 11/06/2024 1 1 Reason Onset Date Comments Refill Request 05/06/2024 Reason Comments Orders [facility] form Reason Comments Insurance Authorization [employer] [facility] Teams (unrecognized sec tion and content) Team Status: Active Member Role Status Dates DERREK SHAW Family Provider Active Nico Schmidt Primary Care Provider Active Team Status: Inactive Member Role Status Dates Nico Schmidt Primary Care Provider Active Wyatt Islas MD Emergency Provider Active Team Status: Active Member Role Status Dates DERREK SHAW Family Provider Active Dr. Nico Schmidt MD Primary Care Provider Active Team Status: Inactive Member Role Status Dates Nico Schmidt OLS Primary Care Provider Active Wyatt Islas MD Attending Provider, Emergency Provid er Active Team Status: Active Member Role Status Dates Wyatt Islas MD Emergency Provider Active Dr. Nico Schmidt MD Primary Care Provider Active Dr. Roberta Garza MD Admit Provider, Attending Prov ider Active Team Status: Inactive Member Role Status Dates Dr. Nico Schmidt MD Primary Care Provider Active Dr. Jakob Chino DO Emergency Provider Active Bowl Sander Relationship Specialty Start Date End Date Nico Schmidt MD [address] [place] [address] PCP - General Family Medicine 12/25/22 Bowl Sander Relationship Specialty Start Date End Date Nico Schmidt MD [address] [place] [address] PCP - General Family Medicine 12/25/22 Bowl Sander Relationship Specialty Start Date End Date Nico Schmidt MD [address] [facility] [address] [place] [address] PCP - General Family Medicine 12/25/22 Bowl Sander Relationship Specialty Start Date End Date Nico Schmidt MD [address] [facility] [address] [place] [address] PCP - General Family Medicine 12/25/22 Bowl Sander Relationship Specialty Start Date End Date Nico Schmidt MD [address] [facility] [address] [place] [address] PCP - General Family Medicine 12/25/22 Bowl Sander Relationship Specialty Start Date End Date Nico Schmidt MD [address] [facility] [address] [place] [address] PCP - General Family Medicine 12/25/22 Bowl Sander Relationship Specialty Start Date End Date Nico Schmidt MD [address] [facility] [address] [place] [address] PCP - General Family Medicine 12/25/22 Bowl Sander Relationship Specialty Start Date End Date Nico Schmidt MD [address] [facility] [address] [place] [address] PCP - General Family Medicine 12/25/22 Bowl Sander Relationship Specialty Start Date End Date Nico Schmidt MD [address] [facility] [address] [place] [address] PCP - General Family Medicine 12/25/22 Bowl Sander Relationship Specialty Start Date End Date Nico Schmidt MD [address] [facility] [address] [place] [address] PCP - General Family Medicine 12/25/22 Bowl Sander Relationship Specialty Start Date End Date Nico cShmidt MD [address] [facility] [address] [place] [address] PCP - General Family Medicine 12/25/22 Team Status: Active Member Role Status Dates Dr. Nico Schmidt MD Primary Care Provider Active Dr. Jakob Villeda DO Admit Provider, Other Provider A ctive Dr. Nicolasa Willingham MD Attending Provider Active Team Status: Active Member Role Status Dates Dr. Nico Schmidt MD Primary Care Provider Active Dr. Jakob Mohan MD Attending Provider Active Dr. Freddy Swann MD Referring Provider Active Team Status: Inactive Member Role Status Dates Dr. Nico Schmidt MD Primary Care Provider Active Dr. Jakob Villeda DO Admit Provider, Attending Provid er Active Team Status: Inactive Member Role Status Dates Dr. Nico Schmidt MD Primary Care Provider Active Dr. Freddy Swann MD Admit Provider, At tending Provider, Referring Provider Active Team Status: Inactive Member Role Status Dates Dr. Nico Schmidt MD Primary Care Provider Active Dr. Freddy Swann MD Attending Provider, Referring Pr ovider Active Team Status: Inactive Member Role Status Dates Dr. Nico Schmidt MD Primary Care Provider, Attending Provider Active Bowl Sander Relationship Specialty Start Date End Date Nico Schmidt MD [address] [facility] [address] [place] [address] PCP - General Family Medicine 12/25/22 Bowl Sander Relationship Specialty Start Date End Date Nico Schmidt MD [address] [facility] [address] [place] [address] PCP - General Family Medicine 12/25/22 Bowl Sander Relationship Specialty Start Date End Date Nico Schmidt MD [address] [facility] [address] [place] [address] PCP - General Family Medicine 12/25/22 Bowl Sander Relationship Specialty Start Date End Date Nico Schmidt MD [address] [facility] [address] [place] [address] PCP - General Family Medicine 12/25/22 Bowl Sander Relationship Specialty Start Date End Date Nico Schmidt MD [address] [facility] [address] [place] [address] PCP - General Family Medicine 12/25/22 Bowl Sander Relationship Specialty Start Date End Date Nico Schmidt MD [address] [facility] [address] [place] [address] PCP - General Family Medicine 12/25/22 Bowl Sander Relationship Specialty Start Date End Date Nico Schmidt MD [address] [place] [address] [address] [place] [address] PCP - General Family Medicine 12/25/22 Team Status: Inactive Member Role Status Dates Dr. Nico Schmidt MD Primary Care Provider Active Dr. Jakob Chino DO Attending Provider, Jamia de jesus Active Bowl Sander Relationship Specialty Start Date End Date Nico Schmidt MD [address] [place] [address] [address] [place] [address] PCP - General Family Medicine 12/25/22 Bowl Sander Relationship Specialty Start Date End Date Nico Schmidt MD [address] [place] [address] [address] [place] [address] PCP - General Family Medicine 12/25/22 Bowl Sander Relationship Specialty Start Date End Date Nico Schmidt MD [address] [place] [address] [address] [place] [address] PCP - General Family Medicine 12/25/22 Bowl Sander Relationship Specialty Start Date End Date Nico Schmidt MD [address] [place] [address] [address] [place] [address] PCP - General Family Medicine 12/25/22 Bowl Sander Relationship Specialty Start Date End Date Nico Schmidt MD [address] [facility] [address] [place] [address] PCP - General Family Medicine 12/25/22 Bowl Sander Relationship Specialty Start Date End Date Nico Schmidt MD [address] [facility] [address] [place] [address] PCP - General Family Medicine 12/25/22 Bowl Sander Relationship Specialty Start Date End Date Nico Schmidt MD [address] [facility] [address] [place] [address] PCP - General Family Medicine 12/25/22 FOR RECORDS PERTAINING TO PATIENTS WHO ARE OR HAVE BEEN ENROLLED IN A CHEMICAL DEPENDENCY/SUBSTANCEABUSE PROGRAM, SOME INFORMATION MAY BE OMITTED. This clinical summary was aggregated from multiple sources. Caution should be exercised in using it in the provision of clinical care. This summary normalizes information from multiple sources, and as a consequence, information in this document may materially change the coding, format and clinical context of patient data. In addition, data may be omitted in some cases. CLINICAL DECISIONS SHOULD BE BASED ON THE PRIMARY CLINICAL RECORDS. [facility] [employer] provides no warranty or guarantee of the accuracy or completeness of information in this document.
[2024-07-28 22:09] LABS: Reflex Lactate? Y
[2024-07-28 22:21] LABS: Troponin T High Sens 2 HR 57 ng/L (<=22)
--- OUTSIDE RECORDS SUMMARY | 2024-07-28 22:34 | XMS RPT_ITS | CCD ---
Author Organization [facility] Care Team Providers Care Radarman Name Role Phone Akua, Nikkie D Unavailable [...] Vaughan Attending Provider MINA Olivier Attending Provider [phone] Dr. Gayle Monae Emergency Provider Dr. Jakob [...] Provider Dr. Jakob Villeda Admit Provider Dr. Jakbo Villeda Other Provider Dr. Connor Toro Attending Provider Cortez, Dr. Ryan Other Provider Teodora, Dr. Katharine [...] Referring Unavailable Brayan, Nico Primary Care Unavailable Jakob Villeda Admitting Unavailable Jakob Villeda Consulting Unavailable Brayan, Nico Primary Care Unavailable Nicolasa Willingham Attending Unavailable Schmidt, Nico Attending Unavailable Schmidt, Nico Primary Care Unavailable Schmidt, Nico Referring Unavailable Schmidt, Nico Attending Unavailable Scmhidt, Nico Primary Care Unavailable Schmidt, Nico Primary Care Unavailable Schmidt, Nico Attending Unavailable Shree, Freddy Chi Referring Unavailable Shree, Freddy Chi Attending Unavailable Schmidt, Nico Primary Care Unavailable Jakob Villeda Admitting Unavailable Jakob Villeda Attending Unavailable Schmidt, Nico Primary Care Unavailable Shree, Freddy Chi Referring Unavailable Shree, Freddy Chi Attending Unavailable Shree, Freddy Chi Admitting Unavailable Schmidt, Nico Primary Care Unavailable Schmidt, Nico Attending Unavailable Schmidt, Nico Primary Care Unavailable Schmidt, Dr. Walsh Primary Care Provider [phone] Dr. Jakob Villeda Admit Provider Dr. Jakob Villeda Other Provider Dr. Nicolasa Willingham Attending Provider Nico Schmidt MD Primary Care Provider KAYODE GUZMAN Attending Unavailable TAISHA JOHN Referring [...] toxoid vaccine, inactivated; Translations: [TETANUS] Drug Allergy OO-Qrsogwgzg-I [facility] 1025 Work Phone: (6 sources) Penicillins; Translations: [Penicillins] drug allergy 3 Unknown [facility] Other [facility] (1 source) tetanus and diphtheria toxoids Allergy to substance 1 Unknown [facility] Work Phone: (2 sources) Penicillins Drug Allergy 3 Unknown [facility] (20 sources) Penicillins Drug Allergy 3 Unknown [facility] (10 sources) Penicillins Allergy to substance 2 Unknown [facility] (13 sources) ARIPiprazole; Translations: [ARIPIPRAZOLE] [facility] Ciprofloxacin; Translations: [CIPROFLOXACIN] Drug Allergy 4 Other: See Comments [facility] (13 sources) Haloperidol; Translations: [HALOPERIDOL] Drug Allergy 4 [facility] (13 sources) Metoclopramide; Translations: [METOCLOPRAMIDE ] Drug Allergy 4 [facility] (13 sources) Prochlorperazin e; Translations: [PROCHLORPERAZI NE] Drug Allergy 4 [facility] (13 sources) Promethazine; Translations: [PROMETHAZINE] Drug Allergy 4 [facility] (1 source) Penicillins Drug allergy (disorder) 3 [facility] Repository (9 sources) Penicillin G; Translations: [PENICILLIN G] Drug Allergy 5 Unknown [facility] (4 sources) Penicillins Drug Allergy 3 [facility] (4 sources) OLANZapine; Translations: [OLANZAPINE] Drug Allergy 5 [facility] Medications Current Medications Medication Drug Class(es) Dates [...] on above: Take 1 capsule by mo [facility] twice daily. Take 1 capsule by mo [facility] once daily. baclofen 10 mg oral tablet [...] days Start: 10-09-2021 take 1 capsule by [facility] twice daily L. Acidophilus/Bifid. Animalis Active [...] ML GT THREE TIMES DAILY AFTER MEALS [id number] January 30, 2023 1:00am March 12, 2023 [...] ML GT THREE TIMES DAILY AFTER MEALS [id number] January 30, 2023 12:00am Start: 01-30-2023 Lactose-Reduce [...] acid 4700 mg / polyethylene glycol 3350 793554 mg / potassium chloride 1015 mg / sodium ascorbate 5900 mg / sodium chloride 2690 mg / sodium sulfate 7500 mg powder for oral solution (7 sources) Osmotic Laxative, Vitamin C Start: 01-16-2017 End: 07-17-2023 PEG 8312-Hjposlrhdka-B it C (MOVIPREP) 100-7.5-2.691 gram Take by [...] Comment on above: Take 1 tablet by [facility] once daily. onabotulinumtoxina 100 unt injection [...] Active docusate sodium 50 mg / sennosides, shelter 8.6 mg oral tablet (18 sources) Start: [...] reba th every afternoon. polyethylene glycol 3350 04051 mg powder for oral solution (15 sources) [...] then stop. Quantity: 49 Refills: 0 Akua LEASING SALES CONSULTANT-STRAW HAT PLUNGER OPERATOR, Nikkie Start : 24-Jun-2018 Active sennosides, shelter 8.6 mg oral tablet (20 sources) Start: [...] Comment on above: Take 1 capsule by [facility] once daily. terbinafine 250 mg oral [...] and visceral atherosclerosis (2 sources) Atherosclerosis of [place] arteries of extremities with intermittent claudication, bilateral [...] Episodic Esophageal disorders (20 sources) Esophagitis; Translations: [[place] grade D esophagitis] Onset: 01-13-2023 01-13-2023 Episodic [...] Test Name Value Interpretation Reference Range Facility [facility] 07-26-2024 CNPN Telephone (NRMDN) KATHARINE LARSEN ([id number]) 1950 M Date Time Provider Department 07/26/24 [facility] During your visit today, we recorded the following information about you: Hilda Florez MA 07/26/2024 3:25 PM Signed Received approval for Gocovri 68.5 mg from [employer]. ND# [id number] Dates: From 07/23/2024 until further notice. Allergies [...] Date Reviewed: 07/22/2024 Reviewed by: Taisha John APRN.STRAW HAT PLUNGER OPERATOR - Fully Assessed Reason for Visit: [...] 01/11/2023 Constipation [K59.00] 01/11/2023 Hyponatremia [E87.1] 01/12/2023 [place] grade D esophagitis [K20.80] 01/13/2023 BPH (benign prostatic hyperplasia) [N40.0] OAB (overactive bladder) [N32.81] Leukocytosis [D72.829] 01/13/2023 Cachexia (HCC) [R64] 01/21/2023 Encounter Status:Closed by HILDA FLOREZ on 07/26/24 [facility] [place] 07-23-2024 [facility] Telephone (MERRY) KATHARINE LARSEN ([id number]) 1950 M Date Time Provider Department 07/23/24 TAISHA JOHN During your visit today, we recorded the following information about you: Amira Dixon MA 07/23/2024 8:45 AM Signed Gocoveri prescription forms faxed to [employer] confirmation received Allergies As of Date: [...] Date Reviewed: 07/22/2024 Reviewed by: Taisha John APRN.STRAW HAT PLUNGER OPERATOR - Fully Assessed Reason for Visit: Orders [241] Cmt: Kat Rx form Prescriptions as of [...] 01/11/2023 Constipation [K59.00] 01/11/2023 Hyponatremia [E87.1] 01/12/2023 [place] grade D esophagitis [K20.80] 01/13/2023 BPH (benign prostatic hyperplasia) [N40.0] OAB (overactive bladder) [N32.81] Leukocytosis [D72.829] 01/13/2023 Cachexia (HCC) [R64] 01/21/2023 Encounter Status:Closed by AMIRA DIXON on 07/23/24 [facility] CNOVon 07-22-2024 CNOV Office Visit (NRMDN) KATHARINE LARSEN ([id number]) 1950 M Date Time Provider Department 07/22/24 10:00 AM TAISHA JOHN During your visit today, we recorded the following information about you: Pulse Blood pressure Height 96/minute 130/84 1.702 m Taisha John APRN.STRAW HAT PLUNGER OPERATOR 07/23/2024 4:18 PM Signed [facility] - FOLLOW UP EVALUATION Recording using [employer] software for draft documentation of the visit was discussed with the patient/authorized sales representative cash registers; all questions welcomed and answered. Patient/authorized sales representative cash registers agreed to proceed Nico Schmidt MD [address] [facility] [address] [facility] [address] Dear Nico Schmidt MD: I had the [...] in physical therapy and works with a skills trainer twice a week. He is also involved in the [employer] and plans to resume the program at the end of September. His grandson assists him with exercises from the [employer] project twice a day. He has a living will and a durable power of disability attorney for healthcare. He does not currently [...] Yes Co (more content not included)... Normal [facility] CNOVon 07-02-2024 CNOV Office Visit (NRMDN) KATHARINE LARSEN ([id number]) 1950 M Date Time Provider Department 07/02/24 11:00 AM CAROLINA DAMON During your visit today, we recorded the following information about you: Pulse Blood pressure 81/minute 161/97 Carolina Damon MD 07/02/2024 11:40 AM Signed [facility] NEUROTOXIN VISIT Date: July 02, 2024 Name: Katharine Jerod Szuie SUBJECTIVE: Subjective history Injections were effective. Toes [...] 190 Allergies: ALLERGIES Allergen Reactions Abilify [Aripiprazo* Contraindication-[facility] Surgical People with Parkinson's disease should not take this or other antipsychotics except Nuplazid, Seroquel, and Clozaril can be prescribed. Ciprofloxacin Other: See Comments Tendon rupture (see black box warning)-this occurred in him when Cipro was used for cellulitis/sepsis Compazine [Prochlor* Contraindication-[facility] This should not be given to people with Parkinson's disease. If not otherwise contraindicated, Zofran should be given instead. Haldol [Haloperidol] Contraindication-[facility] Surgical People with Parkinson's disease should not take this or other antipsychotics except Nuplazid, Seroquel, and Clozaril can be prescribed. Penicillin G Unknown Was told as a child he was allergic to this medication Penicillins Unknown Phenergan [Prometha* Contraindication-[facility] This should not be given to people with Parkinson's disease. If not otherwise contraindicated, Zofran should be given instead. Reglan [Metoclopram* Contraindication-[facility] Surgical This should not be given [...] No Administered with Ultrasound guidance: No Lot#: [id number] Exp Date: 11/2026 Today's neurotoxin regimen: Med right left midline Quadratus plantae 60 60 Flexor di (more content not included)... Normal [facility] CNOVon 04-02-2024 CNOV Office Visit (NRMDN) KATHARINE LARSEN ([id number]) 1950 M Date Time Provider Department 04/02/24 9:30 AM CAROLINA DAMON NRMDN During your visit today, we recorded the following information about you: Pulse Blood pressure 88/minute 172/105 Carolina Damon MD 04/02/2024 10:18 AM Signed [facility] NE[facility] Date: April 02, 2024 Name: [...] Cipro was used for cellulitis/sepsis Compazine [Prochlor* Contraindication-[facility] Surgical This should not be given to people with Parkinson's disease. If not otherwise contraindicated, Zofran should be given instead. Haldol [Haloperidol] Contraindication-[facility] Surgical People with Parkinson's disease should not take this or other antipsychotics except Nuplazid, Seroquel, and Clozaril can be prescribed. Penicillin G Unknown Was told as a child he was allergic to this medication Penicillins Unknown Phenergan [Prometha* Contraindication-[facility] Surgical This should not be given to [...] No Administered with Ultrasound guidance: No Lot#: [id number] Exp Date: 05/2026 Today's neurotoxin regimen: Med right left midline Quadratus plantae 45 50 Flexor digitorum brevis 45 50 Total (more content not included)... Normal [facility] CNOVon 03-16-2024 CNOV Office Visit (NRMDN) KATHARINE LARSEN ([id number]) 1950 M Date Time Provider Department 03/16/24 3:30 PM TAISHA JOHN BERONICA During your visit today, we recorded the following information about you: Pulse Blood pressure Height 95/minute 139/87 1.702 m Taisha John APRN.CNP 03/20/2024 4:50 PM Signed [facility] - FOLLOW UP EVALUATION Primary Movement Disorders Neurologist: Juan R John MD Primary Movement Disorders CATALINA: JAYA Nelson MD [address] [facility] [address] [facility] [address] Dear Nico Schmidt MD: I had the [...] get in soon, please go to an [facility] Interval History: He was sick with [...] interactions. Hallucinations (more content not included)... Normal [facility] Metabolic Prof ilon 12-05-2023 Albumin [Mass/Vol] 3.2 g/dL Normal 3.2-5.0 [facility] Comment on above: Performed By: #### L 500.4050 ####[facility] [address] [place], [address] Albumin/Globulin [Mass ratio] 0.8 {ratio} Low 0.9-2.4 [facility] Comment on above: Performed By: #### L 500.4050 ####[facility] [address] [place], [place], [id number] ALK P 93 U/L Normal 45-117 [facility] Comment on above: Performed By: #### L 500.4050 ####[facility] [address] [place], [address] ALT [Catalytic activity/Vol] 8 U/L Low 16-61 [facility] Comment on above: Performed By: #### L 500.4050 ####[facility] [address] [place], [address] AST [Catalytic activity/Vol] 15 U/L Normal 15-37 [facility] Comment on above: Performed By: #### L 500.4050 ####[facility] [address] [place], [address] Bilirubin [Mass/Vol] 0.80 mg/dL Normal 0.20-1.00 [facility] Comment on above: Result Comment: For patients on eltrombopag therapy, use of Dimension [place] TBIL is not recommended. Performed By: #### L 500.4050 ####[facility] [address] [place], [address] BUN/CRE 17.3 RATIO Normal 10-20 [facility] Comment on above: Performed By: #### L 500.4050 ####[facility] [address] [place], [address] CA,Total 9.3 mg/dL Normal 8.5-10.1 [facility] Comment on above: Performed By: #### L 500.4050 ####[facility] [address] [place], [address] Chloride [Moles/Vol] 104 mmol/L Normal 98-107 [facility] Comment on above: Performed By: #### L 500.4050 ####[facility] [address] [place], [address] CO2 [Moles/Vol] 28.0 mmol/L Normal 21.0-32.0 [facility] Comment on above: Performed By: #### L 500.4050 ####[facility] [address] [place], [address] Creatinine [Mass/Vol] 1.10 mg/dL Normal 0.70-1.[address] [facility] Comment on above: Result Comment: The validity of the calculated GFR GFRAA in patients over 70 years has not been determined. Clinical correlation is essential. Performed By: #### L 500.4050 ####[facility] [address] [place], [address] EST GFR - AA 84 mL/min Normal >60 [facility] Comment on above: Result Comment: Afri can [place]an GFR Calc Performed By: #### L 500.4050 ####[facility] [address] [place], [address] GAP 4 Low 5-15 [facility] Comment on above: Performed By: #### L 500.4050 ####[facility] [address] [place], [address] GFR/1.73 sq M.predicted among non-blacks MDRD (S/P/Bld) [Vol rate/Area] 69 mL/min/{1.73_m2} Normal >60 [facility] Comment on above: Result Comment: Non- GFR Calc Performed By: #### L 500.4050 ####[facility] [address] [place], [address] Globulin (S) [Mass/Vol] 4.2 g/dL Normal 2.2-4.2 [facility] Comment on above: Performed By: #### L 500.4050 ####[facility] [address] [place], [address] Glucose [Mass/Vol] 87 mg/dL Normal 74-106 [facility] Comment on above: Performed By: #### L 500.4050 ####[facility] [address] [place], [address] Potassium [Moles/Vol] 4.0 mmol/L Normal 3.5-5.[address] [facility] Comment on above: Performed By: #### L 500.4050 ####[facility] [address] [place], [place], [address] Sodium [Moles/Vol] 136 mmol/L Normal 136-145 [facility] Comment on above: Performed By: #### L 500.4050 ####[facility] [address] [place], [place], [address] T PROT 7.4 g/dL Normal 6.4-8.2 [facility] Comment on above: Performed By: #### L 500.4050 ####[facility] [address] [place], [address] Urea nitrogen [Mass/Vol] 19 mg/dL High 7-18 [facility] Comment on above: Performed By: #### L 500.4050 ####[facility] [address] [place], [place], [address] Bacteria Ur Culton 4 Bacteria identified Cx Nom (U) ORGANISM ID: 1 1,000 - <5,000 CFU/ml Normal urogenital arslan Normal [facility] Comment on above: Performed By: #### 6 30-4 ####[facility] LABCLIA [id number] [address] OF [facility] CNOVon 11-28-2023 CNOV Office Visit (UROLMD ) KATHARINE LARSEN ([id number]) 1950 M Date Time Provider Department 11/28/23 1:00 PM KAYODE GUZMAN During your visit today, we recorded the following information about you: Kayode Guzman MD 11/28/2023 2:12 PM Signed REPLACED BY [facility] NOTE [...] is prohibitive, can attempt to obtain through [facility] in [place]. Follow up in [place] with ACTALINA in 3 mo Kayode Guzman MD REFERRED [...] to mobility issues) Saw Dr. Kyle in [place] 1 mo ago. Recommended course of Cipro, but patient unable to take it. Straight cath specimen for UA/UCx. Trial Gemtesa. 3 mo FU in [place]. BPH History: PSA: 0.52 (03/12/2017) No history [...] be communicated with the ordering provider via [employer] staff message or phone message by [employer] within 2 business days of report finalization. --END OF FINDING-- Milk Tester: PSCB Transcribe Date/Time: Jan 11 2023 2:20P [...] Family Histo (more content not included)... Normal [facility] Urinalysis complete panel (U )Ordered By: Grayson Bailey on 11-28-2023 Bilirubin Ql (U) Negative Negative [facility] Clarity (Unsp spec) Clear Clear [facility] Color (U) Yellow Yellow [facility] Glucose Test strip (U) [Mass/Vol] Negative Negative [facility] Hemoglobin Ql (U) Negative Negative [facility] Interpretation and review of laboratory results Abnormal [facility] Ketones Ql (U) Trace Abnormal Negative [facility] Leukocyte esterase Test strip Ql (U) Negative Negative [facility] Nitrite Ql (U) Negative Negative [facility] pH (U) 6.0 [pH] 5.0 - 8.0 [facility] Protein (U) [Mass/Vol] Trace Abnormal Negative [facility] RBC LM.HPF (Urine sed) [#/Area] 0-3 /HPF 0-3 /HPF [facility] Specific gravity (U) [Rel density] 1.020 1.005 - 1.030 [facility] Urobilinogen Ql (U) 0.2 EU/dL 0.2-1.0 EU/dL [facility] WBC LM.HPF (Urine sed) [#/Area] 0-5 /HPF 0-5 /HPF [facility] Urinalysis complete panel (U )on 11-28-2023 Bilirubin Ql (U) Negative Normal Negative [facility] Comment on above: Order Comment: Speci men Type: URINE SPECIMENOrdering Facility: [facility] Address: [address] [place] [address] Performed By: #### 2 4356-8 ####[facility] LABORATORYCLIA [id number] [place] [address] [place] Clarity (Unsp spec) Clear Normal Clear [facility] Comment on above: Order Comment: Speci men Type: URINE SPECIMENOrdering Facility: [facility] Address: [address] [place] [address] Performed By: #### 2 4356-8 ####[facility] LABORATORYCLIA [id number] [place] [address] [place] Color (U) Yellow Normal Yellow [facility] Comment on above: Order Comment: Speci men Type: URINE SPECIMENOrdering Facility: [facility] Address: [address] [place] [address] Performed By: #### 2 4356-8 ####[facility] LABORATORYCLIA [id number] [place] [id number] [place] Glucose Test strip (U) [Mass/Vol] Negative Normal Negative [facility] Comment on above: Order Comment: Speci men Type: URINE SPECIMENOrdering Facility: [facility] Address: [address] [place] [address] Performed By: #### 2 4356-8 ####LY[facility] LABORATORYCLIA [id number] [place] [id number] [place] Hemoglobin Ql (U) Negative Normal Negative [facility] Comment on above: Order Comment: Speci men Type: URINE SPECIMENOrdering Facility: [facility] Address: [address] [place] [address] Performed By: #### 2 4356-8 ####LY[facility] LABORATORYCLIA [id number] [place] [address] [place] Ketones Ql (U) Trace Abnormal Negative [facility] Comment on above: Order Comment: Speci men Type: URINE SPECIMENOrdering Facility: [facility] Address: [address] [place] [address] Performed By: #### 2 4356-8 ####LYN LABORATORYCLIA [id number] [address] Leukocyte esterase Test strip Ql (U) Negative Normal Negative [facility] Comment on above: Order Comment: Speci men Type: URINE SPECIMENOrdering Facility: [facility] Address: [address] [place] [address] Performed By: #### 2 4356-8 ####LY[facility] LABORATORYCLIA [id number] [place] [address] [place] Nitrite Ql (U) Negative Normal Negative [facility] Comment on above: Order Comment: Speci men Type: URINE SPECIMENOrdering Facility: [facility] Address: [address] [place] [address] Performed By: #### 2 4356-8 ####LYN LABORATORYCLIA [id number] [place] [address] [place] pH (U) 6.0 [pH] Normal 5.0-8.0 [facility] Comment on above: Order Comment: Speci men Type: URINE SPECIMENOrdering Facility: [facility] Address: [address] [place] [address] Performed By: #### 2 4356-8 ####LYN LABORATORYCLIA [id number] [address] [facility] Protein (U) [Mass/Vol] Trace Abnormal Negative [facility] Comment on above: Order Comment: Speci men Type: URINE SPECIMENOrdering Facility: [facility] Address: [address] [place] [address] Performed By: #### 2 4356-8 ####LYN LABORATORYCLIA [id number] [place] [address] [place] RBC LM.HPF (Urine sed) [#/Area] 0-3 /HPF Normal 0-3 /HPF [facility] Comment on above: Order Comment: Speci men Type: URINE SPECIMENOrdering Facility: [facility] Address: [address] [place] [address] Performed By: #### 2 4356-8 ####LYN LABORATORYCLIA [id number] [address] Specific gravity (U) [Rel density] 1.020 Normal 1.005-1.030 [facility] Comment on above: Order Comment: Speci men Type: URINE SPECIMENOrdering Facility: [facility] Address: [address] [place] [address] Performed By: #### 2 4356-8 ####LYN LABORATORYCLIA [id number] [address] [address] Urobilinogen Ql (U) 0.2 EU/dL Normal 0.2-1.0 EU/dL [facility] Comment on above: Order Comment: Speci men Type: URINE SPECIMENOrdering Facility: [facility] Address: [address] [place] [address] Performed By: #### 2 4356-8 ####LYN LABORATORYCLIA [id number] [address] WBC LM.HPF (Urine sed) [#/Area] 0-5 /HPF Normal 0-5 /HPF [facility] Comment on above: Order Comment: Speci men Type: URINE SPECIMENOrdering Facility: [facility] Address: [address] [place] [address] Performed By: #### 2 4356-8 ####LYN LABORATORYCLIA [id number] [address] OF [facility] CNOVon 11-14-2023 CNOV Office Visit (NRMDN) KATHARINE LARSEN ([id number]) 1950 M Date Time Provider Department 11/14/23 10:00 AM CAROLINA DAMON During your visit today, we recorded the following information about you: Pulse Blood pressure 65/minute 158/93 Carolina Damon MD 11/14/2023 10:56 AM Signed [facility] NEUROLOGICAL CHRISTIAN NEUROTOXIN VISIT Date: November 14, 2023 Name: [...] Questionnaires: Allergies: ALLERGIES Allergen Reactions Abilify [Aripiprazo* Contraindication-[facility] Surgical People with Parkinson's disease should not take this or other antipsychotics except Nuplazid, Seroquel, and Clozaril can be prescribed. Ciprofloxacin Other: See Comments Tendon rupture (see black box warning)-this occurred in him when Cipro was used for cellulitis/sepsis Compazine [Prochlor* Contraindication-[facility] Surgical This should not be given to people with Parkinson's disease. If not otherwise contraindicated, Zofran should be given instead. Haldol [Haloperidol] Contraindication-[facility] Surgical People with Parkinson's disease should not take this or other antipsychotics except Nuplazid, Seroquel, and Clozaril can be prescribed. Penicillins Unknown Phenergan [Prometha* Contraindication-[facility] Surgical This should not be given [...] No Administered with Ultrasound guidance: No Lot#: [id number] Exp Date: 12/2025 Today's neurotoxin regimen: Med right left midline Quadratus plantae 45 50 Flexor digitorum brevis 45 50 Total: 190 Future plan of care: Follow up: 3 months (more content not included)... 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 Ciprofloxacin Other: See Comments Te (more content not included)... Normal [facility] Urine Cultureon 08-16-2023 URC Pseudomonas aeruginosa [place] Count 50,000-80,000 Pseudomonas aeruginosa: REACTION Cefepime Islt MAT 2 S Ciprofloxacin Islt MAT <=0.25 S Imipenem Islt MAT >=16 R levoFLOXacin Islt MAT 0.5 S Pip+Tazo Islt MAT 8 S Tobramycin Islt MAT <=1 S Normal [facility] Comment on above: Performed By: #### L 501.080 #### [facility] Laboratory [address] [facility]. [place], [place], [id number] Urinalysis, Routine (Dipstic k)on 08-13-2023 BILIRUBIN URINE Negative Normal Negative [facility] Comment on above: Order Comment: CLEAN CATCH Performed By: #### L 501.080 #### [facility] Laboratory [address] [place], [place], [address] Clarity (U) Clear Normal Clear [facility] Comment on above: Order Comment: CLEAN CATCH Performed By: #### L 501.080 #### [facility] Laboratory [address] [place], [address] Color (U) Yellow Normal Yellow [facility] Comment on above: Order Comment: CLEAN CATCH Performed By: #### L 501.080 #### [facility] Laboratory [address] [place], [address] GLUCOSE, UR Normal Normal Normal [facility] Comment on above: Order Comment: CLEAN CATCH Performed By: #### L 501.080 #### [facility] Laboratory [address] [place], [address] KETONE UR Negative Normal Negative [facility] Comment on above: Order Comment: CLEAN CATCH Performed By: #### L 501.080 #### [facility] Laboratory [address] [place], [address] LEUK ESTERASE Negative Normal Negative [facility] Comment on above: Order Comment: CLEAN CATCH Performed By: #### L 501.080 #### [facility] Laboratory [address] [place], [address] Nitrite Ql (U) Negative Normal Negative [facility] Comment on above: Order Comment: CLEAN CATCH Performed By: #### L 501.080 #### [facility] Laboratory [address] [place], [address] OCCULT BLOOD-UR Negative Normal Negative [facility] Comment on above: Order Comment: CLEAN CATCH Performed By: #### L 501.080 #### [facility] Laboratory [address] [place], [address] pH UR 8.0 Normal 5.0 - 8.0 [facility] Comment on above: Order Comment: CLEAN CATCH Performed By: #### L 501.080 #### [facility] Laboratory [address] [place], [address] PROT DIPSTX Negative Normal Negative [facility] Comment on above: Order Comment: CLEAN CATCH Performed By: #### L 501.080 #### [facility] Laboratory [address] [place], [place], [address] SP.GR. DIPSTX 1.010 Normal 1.002-1.030 [facility] Comment on above: Order Comment: CLEAN CATCH Performed By: #### L 501.080 #### [facility] Laboratory [address] [place], [place], [address] UROBILI Normal Normal Normal [facility] Comment on above: Order Comment: CLEAN CATCH Performed By: #### L 501.080 #### [facility] Laboratory [address] [place], [address] [facility] KATHARINE LARSEN ([id number]) 1950 M Date Time Provider Department 08/11/23 MICHAELA MANCINI [facility] During your visit today, we recorded the following information about you: Emily Merritt 08/11/2023 8:56 AM Signed Called and left a voicemail on bother number to reschedule a missed virtual visit. 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 [...] 01/11/2023 Constipation [K59.00] 01/11/2023 Hyponatremia [E87.1] 01/12/2023 [place] grade D esophagitis [K20.80] 01/13/2023 BPH (benign prostatic hyperplasia) [N40.0] OAB (overactive bladder) [N32.81] Leukocytosis [D72.829] 01/13/2023 Cachexia (HCC) [R64] 01/21/2023 Encounter Status:Closed by EMILY MERRITT on 08/11/23 Normal [facility] Urine Cultureon 07-23-[address] SALCEDO @ [phone] AND TO [phone] Mixed Gram Pos Gram Neg Org [place] Count 50,000-80,000 MIXC Mixed contaminants. Submit a new specimen if indicated. Normal [facility] Comment on above: Performed By: #### L 400.2010, M100.0 ####[facility] [address] [place], [address] Urinalysis, Routine (Dipstic k)on 07-21-2023 BILIRUBIN URINE Negative Normal Negative [facility] Comment on above: Order Comment: CLEAN CATCH Performed By: #### L 501.080 #### [facility] Laboratory [address] [place], [address] Clarity (U) Clear Normal Clear [facility] Comment on above: Order Comment: CLEAN CATCH Performed By: #### L 501.080 #### [facility] Laboratory [address] [place], [address] Color (U) Yellow Normal Yellow [facility] Comment on above: Order Comment: CLEAN CATCH Performed By: #### L 501.080 #### [facility] Laboratory [address] [place], [address] GLUCOSE, UR Normal Normal Normal [facility] Comment on above: Order Comment: CLEAN CATCH Performed By: #### L 501.080 #### [facility] Laboratory [address] [place], [address] KETONE UR Negative Normal Negative [facility] Comment on above: Order Comment: CLEAN CATCH Performed By: #### L 501.080 #### [facility] Laboratory [address] [place], [address] LEUK ESTERASE Negative Normal Negative [facility] Comment on above: Order Comment: CLEAN CATCH Performed By: #### L 501.080 #### [facility] Laboratory [address] [place], [address] Nitrite Ql (U) Negative Normal Negative [facility] Comment on above: Order Comment: CLEAN CATCH Performed By: #### L 501.080 #### [facility] Laboratory [address] [place], [address] OCCULT BLOOD-UR Negative Normal Negative [facility] Comment on above: Order Comment: CLEAN CATCH Performed By: #### L 501.080 #### [facility] Laboratory [address] [place], [address] pH UR 7.0 Normal 5.0 - 8.0 [facility] Comment on above: Order Comment: CLEAN CATCH Performed By: #### L 501.080 #### [facility] Laboratory [address] [place], [address] PROT DIPSTX Negative Normal Negative [facility] Comment on above: Order Comment: CLEAN CATCH Performed By: #### L 501.080 #### [facility] Laboratory [address] [place], [address] SP.GR. DIPSTX 1.010 Normal 1.002-1.030 [facility] Comment on above: Order Comment: CLEAN CATCH Performed By: #### L 501.080 #### [facility] Laboratory [address] [place], [address] UROBILI Normal Normal Normal [facility] Comment on above: Order Comment: CLEAN CATCH Performed By: #### L 501.080 #### [facility] Laboratory [address] [place], [address] Urine Cultureon 06-21-2023 U[facility] Order Date: 06/18/23 Order Info: 630-4 - CUUR 06/18/23 630-4 - CUUR #2 Below infection level. Pseudomonas aeruginosa [place] Count 25,000-50,000 GNR lactose developmental therapist [place] Count <1000 Pseudomonas aeruginosa: REACTION Cefepime Islt MAT 2 S Ciprofloxacin Islt MAT <=0.25 S Gentamicin Islt MAT <=1 S Imipenem Islt MAT >=16 R levoFLOXacin Islt MAT 0.5 S Pip+Tazo Islt MAT <=4 S Tobramycin Islt MAT <=1 S Normal [facility] Comment on above: Performed By: #### L 501.080 #### [facility] Laboratory [address] [place], [place], [id number] Basophil percentageOrdered B y: Nico Schmidt on 06-19-2023 Basophil percentage 0-5 SEEN /hpf 0-5 [facility] Bilirubin Test strip Ql (U)O rdered By: Nico Schmidt on 06-19-2023 Bilirubin Ql (U) Negative Negative [facility] Culture, urineOrdered By: Mina Schmidt on 06-19-2023 Bacteria identified Cx Nom (U) Pseudomonas aeruginosa [facility] Bacteria identified Cx Nom (U) GNR lactose developmental therapist [facility] Ketones Test strip Ql (U)Ord ered By: Nico Schmidt on 06-19-2023 Ketones Ql (U) Negative Negative [facility] Mucus LM Ql (Urine sed)Order ed By: Nico Schmidt on 06-19-2023 Mucus Ql (Urine sed) 0 SEEN /hpf [facility] Nitrite Test strip Ql (U)Ord ered By: Nico Schmidt on 06-19-2023 Nitrite Ql (U) Positive Negative [facility] No Panel InformationOrdered By: Nico Schmidt on 06-19-2023 Urine RBC 0 SEEN /hpf 0-5 [facility] Protein Test strip Ql (U)Ord ered By: Nico Schmidt on 06-19-2023 Protein Ql (U) Negative Negative [facility] Squamous epithelial cells de tection in urine sediment by light microscopyOrdered By: Nico Schmidt on 06-19-2023 Epithelial cells.squamous LM Ql (Urine sed) 0 SEEN /hpf 0-5 [facility] Urinalysis, Completeon 06-18 BACTERIA 1+ /hpf Normal None Seen [facility] Comment on above: Order Comment: Order Date: 06/18/23Order Info: [id number] - UACCOLLECTOR TO SPECIFY Performed By: #### L 501.080 #### [facility] Laboratory [address] [place], [address] WBC 0-5 SEEN Normal 0-5 [facility] Comment on above: Order Comment: Order Date: 06/18/23Order Info: [id number] - UACCOLLECTOR TO SPECIFY Performed By: #### L 501.080 #### [facility] Laboratory [address] [place], [address] EPI,SQUAMOUS 0 SEEN Normal 0-5 [facility] Comment on above: Order Comment: Order Date: 06/18/23Order Info: [id number] - UACCOLLECTOR TO SPECIFY Performed By: #### L 501.080 #### [facility] Laboratory [address] [place], [address] Mucus Ql (Urine sed) 0 SEEN Normal [facility] Comment on above: Order Comment: Order Date: 06/18/23Order Info: [id number] - UACCOLLECTOR TO SPECIFY Performed By: #### L 501.080 #### [facility] Laboratory [address] [place], [address] RBC 0 SEEN Normal 0-5 [facility] Comment on above: Order Comment: Order Date: 06/18/23Order Info: [id number] - UACCOLLECTOR TO SPECIFY Performed By: #### L 501.080 #### [facility] Laboratory [address] [place], [address] Urine blood detectionOrdered By: Nico Schmidt on 06-19-2023 RBC Ql (U) 10 /ul Negative [facility] Urine clarityOrdered By: Marla Schmidt on 06-19-2023 Clarity (U) Clear Clear [facility] Urine color determinationOrd ered By: Nico Schmidt on 06-19-2023 Color (U) Yellow Yellow [facility] Urine glucose detectionOrder ed By: Nico Schmidt on 06-19-2023 Glucose Ql (U) Normal mg/dl Normal [facility] Urine leukocyte esterase det ection by dipstickOrdered By: Nico Schmidt on 06-19-2023 Leukocyte esterase Test strip Ql (U) 500 /ul Negative [facility] Urine pHOrdered By: Nico burns on 06-19-2023 pH (U) 8.0 [pH] 5.0 - 8.0 [facility] Urine sediment bacteria coun t by microscopy (number/high power field)Ordered By: Nico Schmidt on 06-19-2023 Bacteria LM.HPF (Urine sed) [#/Area] 1 /[HPF] None Seen [facility] Urine specific gravity measu rementOrdered By: Nico Schmidt on 06-19-2023 Specific gravity (U) [Rel density] 1.010 1.002-1.030 [facility] Urine urobilinogen measureme ntOrdered By: Nico Schmidt on 06-19-2023 Urobilinogen Ql (U) Normal mg/dl Normal [facility] Urine Cultureon 05-23-2023 U[facility] Pseudomonas aeruginosa [place] Count 50,000-80,000 Pseudomonas aeruginosa: REACTION Cefepime Islt MAT 2 S Ciprofloxacin Islt MAT <=0.25 S Gentamicin Islt MAT <=1 S Imipenem Islt MAT >=16 R levoFLOXacin Islt MAT 0.5 S Pip+Tazo Islt MAT 16 S Tobramycin Islt MAT <=1 S Normal [facility] Comment on above: Performed By: #### M 100.2200, L400.2010 ####[facility] [address] [place], [address] Bilirubin Test strip Ql (U)O rdered By: Nico Schmidt on 05-21-2023 Bilirubin Ql (U) Negative Negative [facility] Culture, urineOrdered By: Mina Schmidt on 05-21-2023 Bacteria identified Cx Nom (U) Pseudomonas aeruginosa [facility] Ketones Test strip Ql (U)Ord ered By: Nico Schmidt on 05-21-2023 Ketones Ql (U) Negative Negative [facility] Nitrite Test strip Ql (U)Ord ered By: Nico Schmidt on 05-21-2023 Nitrite Ql (U) Positive Negative [facility] Protein Test strip Ql (U)Ord ered By: Nico Schmidt on 05-21-2023 Protein Ql (U) Negative Negative [facility] Urinalysis, Routine (Dipstic k)on 05-21-2023 BILIRUBIN URINE Negative Normal Negative [facility] Comment on above: Order Comment: CLEAN CATCH Performed By: #### M 100.2200, L400.2010 ####[facility] [address] [place], [address] Clarity (U) Clear Normal Clear [facility] Comment on above: Order Comment: CLEAN CATCH Performed By: #### M , ####[facility] [address] [place], [address] Color (U) Yellow Normal Yellow [facility] Comment on above: Order Comment: CLEAN CATCH Performed By: #### M ####[facility] [address] [place], [address] GLUCOSE, UR Normal Normal Normal [facility] Comment on above: Order Comment: CLEAN CATCH Performed By: #### M ####[facility] [address] [place], [address] KETONE UR Negative Normal Negative [facility] Comment on above: Order Comment: CLEAN CATCH Performed By: #### M ####[facility] [address] [place], [address] LEUK ESTERASE 500 /ul Abnormal Negative [facility] Comment on above: Order Comment: CLEAN CATCH Performed By: #### M ####[facility] [address] [place], [address] Nitrite Ql (U) Positive Abnormal Negative [facility] Comment on above: Order Comment: CLEAN CATCH Performed By: #### M ####[facility] [address] [place], [address] OCCULT BLOOD-UR 10 /ul Abnormal Negative [facility] Comment on above: Order Comment: CLEAN CATCH Performed By: #### M ####[facility] [address] [place], [address] pH UR 8.0 Normal 5.0 - 8.0 [facility] Comment on above: Order Comment: CLEAN CATCH Performed By: #### M 100.2200, L400.2010 ####[facility] [address] [place], [address] PROT DIPSTX Negative Normal Negative [facility] Comment on above: Order Comment: CLEAN CATCH Performed By: #### M 100.2200, L400.2010 ####[facility] [address] [place], [address] SP.GR. DIPSTX 1.015 Normal 1.002-1.030 [facility] Comment on above: Order Comment: CLEAN CATCH Performed By: #### M 100.2200, L400.2010 ####[facility] [address] [place], [address] UROBILI Normal Normal Normal [facility] Comment on above: Order Comment: CLEAN CATCH Performed By: #### M 100.2200, L400.2010 ####[facility] [address] [place], [address] Urine blood detectionOrdered By: Nico Schmidt on 05-21-2023 RBC Ql (U) 10 /ul Negative [facility] Urine clarityOrdered By: Marla Schmidt on 05-21-2023 Clarity (U) Clear Clear [facility] Urine color determinationOrd ered By: Nico Schmidt on 05-21-2023 Color (U) Yellow Yellow [facility] Urine glucose detectionOrder ed By: Nico Schmidt on 05-21-2023 Glucose Ql (U) Normal mg/dl Normal [facility] Urine leukocyte esterase det ection by dipstickOrdered By: Nico Schmidt on 05-21-2023 Leukocyte esterase Test strip Ql (U) 500 /ul Negative [facility] Urine pHOrdered By: Nico burns on 05-21-2023 pH (U) 8.0 [pH] 5.0 - 8.0 [facility] Urine specific gravity measu rementOrdered By: Nico Schmidt on 05-21-2023 Specific gravity (U) [Rel density] 1.015 1.002-1.030 [facility] Urine urobilinogen measureme ntOrdered By: Nico Schmidt on 05-21-2023 Urobilinogen Ql (U) Normal mg/dl Normal [facility] Basic Metabolic Profile (BMP )on 04-04-2023 BUN Normal 7-18 [facility] Comment on above: Result Comment: Canc elled via OM: Order cancelled - Patient discharged Performed By: #### L 501.080 #### [facility] Laboratory [address] [facility] [address] BUN/CRE Normal 10-20 [facility] Comment on above: Result Comment: Canc elled via OM: Order cancelled - Patient discharged Performed By: #### L 501.080 #### [facility] Laboratory [address] [place], [address] CA,Total Normal 8.5-10.1 [facility] Comment on above: Result Comment: Canc elled via OM: Order cancelled - Patient discharged Performed By: #### L 501.080 #### [facility] Laboratory [address] [place], [address] CL Normal 98-107 [facility] Comment on above: Result Comment: Canc elled via OM: Order cancelled - Patient discharged Performed By: #### L 501.080 #### [facility] Laboratory [address] [place], [address] CO2 Normal 21.0-32.0 [facility] Comment on above: Result Comment: Canc elled via OM: Order cancelled - Patient discharged Performed By: #### L 501.080 #### [facility] [address] [place], [address] CREAT,SERUM Normal 0.70-1.30 [facility] Comment on above: Result Comment: Canc elled via OM: Order cancelled - Patient discharged Performed By: #### L 501.080 #### [facility] [address] [place], [address] EST GFR Normal >60 [facility] Comment on above: Result Comment: Canc elled via OM: Order cancelled - Patient discharged Performed By: #### L 501.080 #### [facility] [address] [place], [address] EST GFR - AA Normal >60 [facility] Comment on above: Result Comment: Canc elled via OM: Order cancelled - Patient discharged Performed By: #### L 501.080 #### [facility] [address] [place], [address] GAP Normal 5-15 [facility] Comment on above: Result Comment: Canc elled via OM: Order cancelled - Patient discharged Performed By: #### L 501.080 #### [facility] [address] [place], [address] GLU Normal 74-106 [facility] Comment on above: Result Comment: Canc elled via OM: Order cancelled - Patient discharged Performed By: #### L 501.080 #### [facility] [address] [place], [address] Potassium Normal 3.5-5.1 [facility] Comment on above: Result Comment: Canc elled via OM: Order cancelled - Patient discharged Performed By: #### L 501.080 #### [facility] [address] [place], [address] Basic Metabolic Profile (BMP) Normal 136-145 [facility] Comment on above: Result Comment: Canc elled via OM: Order cancelled - Patient discharged Performed By: #### L 501.080 #### [facility] [address] [place], [address] CBC W/Diff, Automatedon 03-20 Absolute Neut Normal 2.0-7.7 [facility] Comment on above: Result Comment: Canc elled via OM: Order cancelled - Patient discharged Performed By: #### L 501.080 #### [facility] [address] [place], [address] HCT Normal 40-54 [facility] Comment on above: Result Comment: Canc elled via OM: Order cancelled - Patient discharged Performed By: #### L 501.080 #### [facility] [address] [place], [address] HGB Normal 13.0-16.5 [facility] Comment on above: Result Comment: Canc elled via OM: Order cancelled - Patient discharged Performed By: #### L 501.080 #### [facility] [address] [place], [address] MCH Normal 27.0-32.0 [facility] Comment on above: Result Comment: Canc elled via OM: Order cancelled - Patient discharged Performed By: #### L 501.080 #### [facility] [address] [place], [address] MCHC Normal 32-36 [facility] Comment on above: Result Comment: Canc elled via OM: Order cancelled - Patient discharged Performed By: #### L 501.080 #### [facility] [address] [place], [address] MCV Normal 80-94 [facility] Comment on above: Result Comment: Canc elled via OM: Order cancelled - Patient discharged Performed By: #### L 501.080 #### [facility] [address] [place], [address] NEUT% Normal 47-70 [facility] Comment on above: Result Comment: Canc elled via OM: Order cancelled - Patient discharged Performed By: #### L 501.080 #### [facility] [address] [place], [address] PLT Normal 150-450 [facility] Comment on above: Result Comment: Canc elled via OM: Order cancelled - Patient discharged Performed By: #### L 501.080 #### [facility] [address] [place], [address] RBC Normal 4.6-6.2 [facility] Comment on above: Result Comment: Canc elled via OM: Order cancelled - Patient discharged Performed By: #### L 501.080 #### [facility] [address] [place], [address] RDW CV Normal 11.6-14.6 [facility] Comment on above: Result Comment: Canc elled via OM: Order cancelled - Patient discharged Performed By: #### L 501.080 #### [facility] [address] [place], [address] RDW SD Normal 35.1-43.9 [facility] Comment on above: Result Comment: Canc elled via OM: Order cancelled - Patient discharged Performed By: #### L 501.080 #### [facility] [address] [place], [address] WBC Normal 4.4-11.0 [facility] Comment on above: Result Comment: Canc elled via OM: Order cancelled - Patient discharged Performed By: #### L 501.080 #### [facility] [address] [place], [address] Basic Metabolic Profile (BMP )on 03-28-2023 BUN Normal 7-18 [facility] Comment on above: Result Comment: Canc elled via OM: Order cancelled - Patient discharged Performed By: #### L 501.080 #### [facility] [address] [place], [address] BUN/CRE Normal 10-20 [facility] Comment on above: Result Comment: Canc elled via OM: Order cancelled - Patient discharged Performed By: #### L 501.080 #### [facility] [address] [place], [address] CA,Total Normal 8.5-10.1 [facility] Comment on above: Result Comment: Canc elled via OM: Order cancelled - Patient discharged Performed By: #### L 501.080 #### [facility] [address] [place], [address] CL Normal 98-107 [facility] Comment on above: Result Comment: Canc elled via OM: Order cancelled - Patient discharged Performed By: #### L 501.080 #### [facility] [address] [place], [address] CO2 Normal 21.0-32.0 [facility] Comment on above: Result Comment: Canc elled via OM: Order cancelled - Patient discharged Performed By: #### L 501.080 #### [facility] [address] [place], [address] CREAT,SERUM Normal 0.70-1.30 [facility] Comment on above: Result Comment: Canc elled via OM: Order cancelled - Patient discharged Performed By: #### L 501.080 #### [facility] [address] [place], [address] EST GFR Normal >60 [facility] Comment on above: Result Comment: Canc elled via OM: Order cancelled - Patient discharged Performed By: #### L 501.080 #### [facility] [address] [place], [address] EST GFR - AA Normal >60 [facility] Comment on above: Result Comment: Canc elled via OM: Order cancelled - Patient discharged Performed By: #### L 501.080 #### [facility] [address] [place], [address] GAP Normal 5-15 [facility] Comment on above: Result Comment: Canc elled via OM: Order cancelled - Patient discharged Performed By: #### L 501.080 #### [facility] [address] [place], [address] GLU Normal 74-106 [facility] Comment on above: Result Comment: Canc elled via OM: Order cancelled - Patient discharged Performed By: #### L 501.080 #### [facility] [address] [place], [address] Potassium Normal 3.5-5.1 [facility] Comment on above: Result Comment: Canc elled via OM: Order cancelled - Patient discharged Performed By: #### L 501.080 #### [facility] [address] [place], [address] Basic Metabolic Profile (BMP) Normal 136-145 [facility] Comment on above: Result Comment: Canc elled via OM: Order cancelled - Patient discharged Performed By: #### L 501.080 #### [facility] [address] [place], [address] CBC W/Diff, Automatedon 02-0 -2023 Absolute Neut Normal 2.0-7.7 [facility] Comment on above: Result Comment: Canc elled via OM: Order cancelled - Patient discharged Performed By: #### L 501.080 #### [facility] [address] [place], [address] HCT Normal 40-54 [facility] Comment on above: Result Comment: Canc elled via OM: Order cancelled - Patient discharged Performed By: #### L 501.080 #### [facility] [address] [place], [address] HGB Normal 13.0-16.5 [facility] Comment on above: Result Comment: Canc elled via OM: Order cancelled - Patient discharged Performed By: #### L 501.080 #### [facility] [address] [place], [address] MCH Normal 27.0-32.0 [facility] Comment on above: Result Comment: Canc elled via OM: Order cancelled - Patient discharged Performed By: #### L 501.080 #### [facility] [address] [place], [address] MCHC Normal 32-36 [facility] Comment on above: Result Comment: Canc elled via OM: Order cancelled - Patient discharged Performed By: #### L 501.080 #### [facility] [address] [place], [address] MCV Normal 80-94 [facility] Comment on above: Result Comment: Canc elled via OM: Order cancelled - Patient discharged Performed By: #### L 501.080 #### [facility] [address] [place], [address] NEUT% Normal 47-70 [facility] Comment on above: Result Comment: Canc elled via OM: Order cancelled - Patient discharged Performed By: #### L 501.080 #### [facility] [address] [place], [address] PLT Normal 150-450 [facility] Comment on above: Result Comment: Canc elled via OM: Order cancelled - Patient discharged Performed By: #### L 501.080 #### [facility] [address] [place], [address] RBC Normal 4.6-6.2 [facility] Comment on above: Result Comment: Canc elled via OM: Order cancelled - Patient discharged Performed By: #### L 501.080 #### [facility] [address] [place], [address] RDW CV Normal 11.6-14.6 [facility] Comment on above: Result Comment: Canc elled via OM: Order cancelled - Patient discharged Performed By: #### L 501.080 #### [facility] [address] [place], [address] RDW SD Normal 35.1-43.9 [facility] Comment on above: Result Comment: Canc elled via OM: Order cancelled - Patient discharged Performed By: #### L 501.080 #### [facility] [address] [place], [address] WBC Normal 4.4-11.0 [facility] Comment on above: Result Comment: Canc elled via OM: Order cancelled - Patient discharged Performed By: #### L 501.080 #### [facility] [address] [place], [address] Basic Metabolic Profile (BMP )on 03-21-2023 BUN Normal 7-18 [facility] Comment on above: Result Comment: Canc elled via OM: Order cancelled - Patient discharged Performed By: #### L 501.080 #### [facility] [address] [place], [address] BUN/CRE Normal 10-20 [facility] Comment on above: Result Comment: Canc elled via OM: Order cancelled - Patient discharged Performed By: #### L 501.080 #### [facility] [address] [place], [address] CA,Total Normal 8.5-10.1 [facility] Comment on above: Result Comment: Canc elled via OM: Order cancelled - Patient discharged Performed By: #### L 501.080 #### [facility] [address] [place], [address] CL Normal 98-107 [facility] Comment on above: Result Comment: Canc elled via OM: Order cancelled - Patient discharged Performed By: #### L 501.080 #### [facility] [address] [place], [address] CO2 Normal 21.0-32.0 [facility] Comment on above: Result Comment: Canc elled via OM: Order cancelled - Patient discharged Performed By: #### L 501.080 #### [facility] [address] [place], [address] CREAT,SERUM Normal 0.70-1.30 [facility] Comment on above: Result Comment: Canc elled via OM: Order cancelled - Patient discharged Performed By: #### L 501.080 #### [facility] [address] [place], [address] EST GFR Normal >60 [facility] Comment on above: Result Comment: Canc elled via OM: Order cancelled - Patient discharged Performed By: #### L 501.080 #### [facility] [address] [place], [address] EST GFR - AA Normal >60 [facility] Comment on above: Result Comment: Canc elled via OM: Order cancelled - Patient discharged Performed By: #### L 501.080 #### [facility] [address] [place], [address] GAP Normal 5-15 [facility] Comment on above: Result Comment: Canc elled via OM: Order cancelled - Patient discharged Performed By: #### L 501.080 #### [facility] [address] [place], [address] GLU Normal 74-106 [facility] Comment on above: Result Comment: Canc elled via OM: Order cancelled - Patient discharged Performed By: #### L 501.080 #### [facility] [address] [place], [address] Potassium Normal 3.5-5.1 [facility] Comment on above: Result Comment: Canc elled via OM: Order cancelled - Patient discharged Performed By: #### L 501.080 #### [facility] [address] [place], [address] Basic Metabolic Profile (BMP) Normal 136-145 [facility] Comment on above: Result Comment: Canc elled via OM: Order cancelled - Patient discharged Performed By: #### L 501.080 #### [facility] [address] [place], [address] CBC W/Diff, Automatedon 02-0 -2023 Absolute Neut Normal 2.0-7.7 [facility] Comment on above: Result Comment: Canc elled via OM: Order cancelled - Patient discharged Performed By: #### L 501.080 #### [facility] [address] [place], [address] HCT Normal 40-54 [facility] Comment on above: Result Comment: Canc elled via OM: Order cancelled - Patient discharged Performed By: #### L 501.080 #### [facility] [address] [place], [address] HGB Normal 13.0-16.5 [facility] Comment on above: Result Comment: Canc elled via OM: Order cancelled - Patient discharged Performed By: #### L 501.080 #### [facility] [address] [place], [address] MCH Normal 27.0-32.0 [facility] Comment on above: Result Comment: Canc elled via OM: Order cancelled - Patient discharged Performed By: #### L 501.080 #### [facility] [address] [place], [address] MCHC Normal 32-36 [facility] Comment on above: Result Comment: Canc elled via OM: Order cancelled - Patient discharged Performed By: #### L 501.080 #### [facility] [address] [place], [address] MCV Normal 80-94 [facility] Comment on above: Result Comment: Canc elled via OM: Order cancelled - Patient discharged Performed By: #### L 501.080 #### [facility] [address] [place], [address] NEUT% Normal 47-70 [facility] Comment on above: Result Comment: Canc elled via OM: Order cancelled - Patient discharged Performed By: #### L 501.080 #### [facility] [address] [place], [address] PLT Normal 150-450 [facility] Comment on above: Result Comment: Canc elled via OM: Order cancelled - Patient discharged Performed By: #### L 501.080 #### [facility] [address] [place], [address] RBC Normal 4.6-6.2 [facility] Comment on above: Result Comment: Canc elled via OM: Order cancelled - Patient discharged Performed By: #### L 501.080 #### [facility] [address] [place], [address] RDW CV Normal 11.6-14.6 [facility] Comment on above: Result Comment: Canc elled via OM: Order cancelled - Patient discharged Performed By: #### L 501.080 #### [facility] [address] [place], [address] RDW SD Normal 35.1-43.9 [facility] Comment on above: Result Comment: Canc elled via OM: Order cancelled - Patient discharged Performed By: #### L 501.080 #### [facility] [address] [place], [address] WBC Normal 4.4-11.0 [facility] Comment on above: Result Comment: Canc elled via OM: Order cancelled - Patient discharged Performed By: #### L 501.080 #### [facility] [address] [place], [address] Absolute lymphocyte countOrd ered By: Freddy Swann on 03-14-2023 Lymphocytes Auto (Unsp spec) [#/Vol] 2.12 10*3/uL 0.83-4.51 [facility] Automated lymphocyte count a s percentage of total leukocytesOrdered By: Freddy Swann on 03-14-2023 Lymphocytes/100 WBC Auto (Unsp spec) 32.3 % 19-41 [facility] Basic Metabolic Profile (BMP )on 03-14-2023 BUN/CRE 34.7 RATIO High 10-20 [facility] Comment on above: Performed By: #### L 501.080 #### [facility] [address] [place], [address] CA,Total 9.2 mg/dL Normal 8.5-10.1 [facility] Comment on above: Performed By: #### L 501.080 #### [facility] [address] [place], [address] Chloride [Moles/Vol] 102 mmol/L Normal 98-107 [facility] Comment on above: Performed By: #### L 501.080 #### [facility] [address] [place], [address] CO2 [Moles/Vol] 30.0 mmol/L Normal 21.0-32.0 [facility] Comment on above: Performed By: #### L 501.080 #### [facility] [address] [place], [address] Creatinine [Mass/Vol] 0.89 mg/dL Normal 0.70-1.[address] [facility] Comment on above: Result Comment: The validity of the calculated GFR GFRAA in patients over 70 years has not been determined. Clinical correlation is essential. Performed By: #### L 501.080 #### [facility] [address] [place], [address] ECRCL 57.28 ml/min Normal [facility] Comment on above: Performed By: #### L 501.080 #### [facility] [address] [place], [address] EST GFR - AA 107 mL/min Normal >60 [facility] Comment on above: Result Comment: Afri can [place] GFR Calc Performed By: #### L 501.080 #### [facility] [address] [place], [address] GAP 4 Low 5-15 [facility] Comment on above: Performed By: #### L 501.080 #### [facility] [address] [place], [address] GFR/1.73 sq M.predicted among non-blacks MDRD (S/P/Bld) [Vol rate/Area] 88 mL/min/{1.73_m2} Normal >60 [facility] Comment on above: Result Comment: Non- GFR Calc Performed By: #### L 501.080 #### [facility] [address] [place], [address] Glucose [Mass/Vol] 90 mg/dL Normal 74-106 [facility] Comment on above: Performed By: #### L 501.080 #### [facility] [address] [place], [address] Potassium [Moles/Vol] 4.0 mmol/L Normal 3.5-5.[address] [facility] Comment on above: Performed By: #### L 501.080 #### [facility] [address] [place], [address] Sodium [Moles/Vol] 136 mmol/L Normal 136-145 [facility] Comment on above: Performed By: #### L 501.080 #### [facility] [address] [place], [address] Urea nitrogen [Mass/Vol] 31 mg/dL High 7-18 [facility] Comment on above: Performed By: #### L 501.080 #### [facility] Laboratory [address] [place], [place], [id number] Basophil percentageOrdered B y: Freddy Swann on 03-14-2023 Basophils/100 WBC (Bld) 1.4 % 0-1 [facility] Chloride [Moles/Vol] 102 mmol/L 98-107 [facility] Eosinophils/100 WBC (Bld) 5.2 % 0-5 [facility] Glucose [Mass/Vol] 90 mg/dL 74-106 [facility] Hemoglobin (Bld) [Mass/Vol] 12.2 g/dL 13.0-16.5 [facility] Monocytes/100 WBC (Bld) 13.4 % 0-10 [facility] Neutrophils (Bld) [#/Vol] 3.1 10*3/uL 2.0-7.7 [facility] Neutrophils/100 WBC (Bld) 47.4 % 47-70 [facility] Potassium [Moles/Vol] 4.0 mmol/L 3.5-5.[address] [facility] Sodium [Moles/Vol] 136 mmol/L 136-145 [facility] WBC (Bld) [#/Vol] 6.6 10*3/uL 4.4-11.0 [facility] CBC W/Diff, Automatedon 02-18 Absolute Lymph 2.12 X10 3/uL Normal 0.83-4.51 [facility] Comment on above: Performed By: #### L 501.080 #### [facility] Laboratory [address] [place], [address] Absolute Neut 3.1 X10 3/uL Normal 2.0-7.7 [facility] Comment on above: Performed By: #### L 501.080 #### [facility] Laboratory [address] [place], [address] Basophils/100 WBC (Bld) 1.4 % High 0-1 [facility] Comment on above: Performed By: #### L 501.080 #### [facility] Laboratory [address] [place], [address] Eosinophils/100 WBC (Bld) 5.2 % High 0-5 [facility] Comment on above: Performed By: #### L 501.080 #### [facility] Laboratory [address] [place], [address] Erythrocyte distribution width (RBC) [Ratio] 14.6 % Normal 11.6-14.6 [facility] Comment on above: Performed By: #### L 501.080 #### [facility] Laboratory [address] [place], [address] Hematocrit (Bld) [Volume fraction] 39.6 % Low 40-54 [facility] Comment on above: Performed By: #### L 501.080 #### [facility] Laboratory [address] [place], [address] Hemoglobin (Bld) [Mass/Vol] 12.2 g/dL Low 13.0-16.5 [facility] Comment on above: Performed By: #### L 501.080 #### [facility] Laboratory [address] [place], [address] IG% 0.300 Normal 0.0-0.9 [facility] Comment on above: Result Comment: IG% - Immature Granulocytes (promyelocytes, myelocytes and metamyelocytes) > 1% indicates that a LEFT SHIFT is Present. Performed By: #### L 501.080 #### [facility] Laboratory [address] [place], [address] Lymphocytes/100 WBC (Bld) 32.3 % Normal 19-41 [facility] Comment on above: Performed By: #### L 501.080 #### [facility] Laboratory [address] [place], [address] MCH (RBC) [Entitic mass] 30.6 pg Normal 27.0-32.0 [facility] Comment on above: Performed By: #### [id number] #### [facility] Laboratory [address] [place], [address] MCHC (RBC) [Mass/Vol] 30.8 g/dL Low 32-[address] [facility] Comment on above: Performed By: #### [id number] #### [facility] [address] [place], [address] MCV (RBC) [Entitic vol] 99.2 fL High 80-94 [facility] Comment on above: Performed By: #### L 501.080 #### [facility] Laboratory [address] [place], [address] Monocytes/100 WBC (Bld) 13.4 % High 0-10 [facility] Comment on above: Performed By: #### L 501.080 #### [facility] Laboratory [address] [place], [address] Neutrophils/100 WBC (Bld) 47.4 % Normal 47-70 [facility] Comment on above: Performed By: #### L 501.080 #### [facility] Laboratory [address] [place], [address] Nucleated RBC (Bld) [#/Vol] 0 10*3/uL Normal 0-5 [facility] Comment on above: Performed By: #### L 501.080 #### [facility] Laboratory [address] [place], [address] Platelet mean volume (Bld) [Entitic vol] 11.9 fL Normal 6.2-12.0 [facility] Comment on above: Performed By: #### L 501.080 #### [facility] Laboratory [address] [place], [address] Platelets (Bld) [#/Vol] 312 10*3/uL Normal 150-450 [facility] Comment on above: Performed By: #### L 501.080 #### [facility] Laboratory [address] [place], [address] RBC (Bld) [#/Vol] 3.99 10*6/uL Low 4.6-6.2 [facility] Comment on above: Performed By: #### L 501.080 #### [facility] Laboratory [address] [place], [address] RDW SD 53.2 fl High 35.1-43.9 [facility] Comment on above: Performed By: #### L 501.080 #### [facility] Laboratory [address] [place], [address] WBC (Bld) [#/Vol] 6.6 10*3/uL Normal 4.4-11.0 [facility] Comment on above: Performed By: #### L 501.080 #### [facility] Laboratory [address] [place], [address] Determination of erythrocyte mean corpuscular volume (MCV)Ordered By: Freddy Swann 03-14-2023 MCV (RBC) [Entitic vol] 99.2 fL 80-94 [facility] Erythrocyte distribution wid th ratioOrdered By: Freddy Swann 03-14-2023 Erythrocyte distribution width (RBC) [Ratio] 14.6 % 11.6-14.6 [facility] Erythrocyte distribution wid th standard deviationOrdered By: Freddy Swann 03-14-2023 Erythrocyte distribution width (RBC) [Entitic vol] 53.2 fL 35.1-43.9 [facility] Hematocrit Auto (Bld) [Volum e fraction]Ordered By: Freddy Swann 03-14-2023 Hematocrit (Bld) [Volume fraction] 39.6 % 40-54 [facility] Immature granulocytes/100 WB C Auto (Bld)Ordered By: Freddy Swann on 01-26-2024 Immature granulocytes/100 WBC (Bld) 0.300 % 0.0-0.9 [facility] Comment on above: IG% - Immature Granu locytes (promyelocytes, myelocytes and metamyelocytes) > 1% indicates that a LEFT SHIFT is Present. Laboratory - Chemistry and C hemistry - challengeOrdered By: Freddy Swann on 03-14-2023 CO2 [Moles/Vol] 30.0 mmol/L 21.0-32.0 [facility] Urea nitrogen/Creatinine [Mass ratio] 34.7 mg/mg 10-20 [facility] Laboratory - Hematology and Cell countsOrdered By: Freddy Swann on 03-14-2023 MCH (RBC) [Entitic mass] 30.6 pg 27.0-32.0 [facility] MCHC (RBC) [Mass/Vol] 30.8 g/dL 32-[address] [facility] Nucleated RBC/100 WBC (Bld) [Ratio] 0 % 0-5 [facility] Platelets (Bld) [#/Vol] 312 10*3/uL 150-450 [facility] No Panel InformationOrdered By: Freddy Swann on 03-14-2023 Estimated Creatinine Clearance Calc 57.28 ml/min [facility] Estimated GFR (MDRD) Amer 107 mL/min >60 [facility] Comment on above: GFR Calc Estimated GFR (MDRD) Non-Af Amer 88 mL/min >60 [facility] Comment on above: Non- GFR Calc Platelet mean volume Eugene-Ec ker (Bld) [Entitic vol]Ordered By: Freddy Swann on 03-14-2023 Platelet mean volume (Bld) [Entitic vol] 11.9 fL 6.2-12.0 [facility] RBC Auto (Bld) [#/Vol]Ordere d By: Freddy Swann on 03-14-2023 RBC (Bld) [#/Vol] 3.99 10*6/uL 4.6-6.2 [facility] Serum or plasma calcium hayden urement (mass/volume)Ordered By: Freddy Swann on 03-14-2023 Calcium [Mass/Vol] 9.2 mg/dL 8.5-10.1 [facility] Serum or plasma creatinine m easurement (mass/volume)Ordered By: Freddy Swann on 03-14-2023 Creatinine [Mass/Vol] 0.89 mg/dL 0.70-1.[address] [facility] Comment on above: The validity of the calculated GFR & GFRAA in patients over 70 years has not been determined. Clinical correlation is essential. Serum or plasma urea nitroge n measurement (mass/volume)Ordered By: Freddy Swann on 03-14-2023 Urea nitrogen [Mass/Vol] 31 mg/dL 7-18 [facility] Thin prep Papanicolaou smear with manual screeningOrdered By: Freddy Swann on 03-14-2023 Thin prep Papanicolaou smear with manual screening 4 5-15 [facility] Ankle Brachial Indexon 03-11 Ankle Brachial Index [facility] [address] [place] [address] Ankle Brachial Index 03/11/23 1350 MR#: [id number] Acct: [id number] Name: KATHARINE LARSEN Rep #: [id number] : 1950 72 From: Jakob Mohan MD Attending Dr: Dr. Freddy Swann MD Status: REG CLI Ordering Dr: Freddy Swann MD Date: 03/11/23 Location: [facility] Sex: M C Admitted: Reason For Study: [...] Date Dictated: 03/11/23 1350 Date Transcribed: 03/11/231646 Milk Tester: Signed Normal [facility] SP/SP.FEESon 03-11-2023 SP/SP.FEES [facility] Speech Pathology [facility] [facility] [place] [address] Fax REHABILITATION SERVICES PROGRESS NOTE MR#: [id number] Acct: [id number] Name: SUZIEKATHARINE GUILLENN Rep #: [id number] : 1950 72 From: Deloris Grubbs Referring Dr.: Dr. Freddy Swann MD Status:ADM IN Insurance: MEDICARE PART A B [facility] Patient Information Date of Evaluation: 03/10/23 Time [...] cords. When cued to cough by the [facility] and reswallow, the piece of the cookie was no longer observed in the airway. However, unable to reliably confirm ejection of the P.O. from the airway due to blocked visual field from excess thick mucus secretions on the scope. Strategies Comments:: Pt greatly benefited from using a do (more content not included)... Normal [facility] Basic Metabolic Profile (BMP )on 03-07-2023 BUN/CRE 32.5 RATIO High 10-20 [facility] Comment on above: Performed By: #### L 501.080 #### [facility] Laboratory [address] [place], [address] CA,Total 9.3 mg/dL Normal 8.5-10.1 [facility] Comment on above: Performed By: #### L 501.080 #### [facility] Laboratory [address] [place], [address] Chloride [Moles/Vol] 104 mmol/L Normal 98-107 [facility] Comment on above: Performed By: #### L 501.080 #### [facility] Laboratory [address] [place], [address] CO2 [Moles/Vol] 31.0 mmol/L Normal 21.0-32.0 [facility] Comment on above: Performed By: #### L 501.080 #### [facility] Laboratory [address] [place], [address] Creatinine [Mass/Vol] 0.89 mg/dL Normal 0.70-1.[address] [facility] Comment on above: Result Comment: The validity of the calculated GFR GFRAA in patients over 70 years has not been determined. Clinical correlation is essential. Performed By: #### L 501.080 #### [facility] Laboratory [address] [place], [address] ECRCL 56.72 ml/min Normal [facility] Comment on above: Performed By: #### L 501.080 #### [facility] Laboratory [address] [place], [address] EST GFR - AA 107 mL/min Normal >60 [facility] Comment on above: Result Comment: Afri can Chilean GFR Calc Performed By: #### L 501.080 #### [facility] Laboratory [address] [place], [address] GAP 3 Low 5-15 [facility] Comment on above: Performed By: #### L 501.080 #### [facility] Laboratory [address] [place], [address] GFR/1.73 sq M.predicted among non-blacks MDRD (S/P/Bld) [Vol rate/Area] 89 mL/min/{1.73_m2} Normal >60 [facility] Comment on above: Result Comment: Non- GFR Calc Performed By: #### L 501.080 #### [facility] Laboratory [address] [place], [address] Glucose [Mass/Vol] 94 mg/dL Normal 74-106 [facility] Comment on above: Performed By: #### L 501.080 #### [facility] Laboratory [address] [place], [address] Potassium [Moles/Vol] 4.1 mmol/L Normal 3.5-5.[address] [facility] Comment on above: Performed By: #### L 501.080 #### [facility] Laboratory [address] [place], [address] Sodium [Moles/Vol] 138 mmol/L Normal 136-145 [facility] Comment on above: Performed By: #### L 501.080 #### [facility] Laboratory [address] [place], [address] Urea nitrogen [Mass/Vol] 29 mg/dL High 7-18 [facility] Comment on above: Performed By: #### L 501.080 #### [facility] Laboratory [address] [place], [address] CBC W/Diff, Automatedon 01- Absolute Lymph 2.45 X10 3/uL Normal 0.83-4.51 [facility] Comment on above: Performed By: #### L 501.080 #### [facility] Laboratory [address] [place], [address] Absolute Neut 9.0 X10 3/uL High 2.0-7.7 [facility] Comment on above: Performed By: #### L 501.080 #### [facility] Laboratory [address] [place], [address] Basophils/100 WBC (Bld) 0.8 % Normal 0-1 [facility] Comment on above: Performed By: #### L 501.080 #### [facility] Laboratory [address] [place], [address] Eosinophils/100 WBC (Bld) 2.8 % Normal 0-5 [facility] Comment on above: Performed By: #### L 501.080 #### [facility] Laboratory [address] [place], [address] Erythrocyte distribution width (RBC) [Ratio] 14.9 % High 11.6-14.6 [facility] Comment on above: Performed By: #### L 501.080 #### [facility] Laboratory [address] [place], [address] Hematocrit (Bld) [Volume fraction] 40.6 % Normal 40-54 [facility] Comment on above: Performed By: #### L 501.080 #### [facility] Laboratory [address] [place], [address] Hemoglobin (Bld) [Mass/Vol] 12.8 g/dL Low 13.0-16.5 [facility] Comment on above: Performed By: #### L 501.080 #### [facility] Laboratory [address] [place], [address] IG% 0.500 Normal 0.0-0.9 [facility] Comment on above: Result Comment: IG% - Immature Granulocytes (promyelocytes, myelocytes and metamyelocytes) > 1% indicates that a LEFT SHIFT is Present. Performed By: #### L 501.080 #### [facility] Laboratory [address] [place], [address] Lymphocytes/100 WBC (Bld) 18.8 % Low 19-41 [facility] Comment on above: Performed By: #### L 501.080 #### [facility] Laboratory [address] [place], [address] MCH (RBC) [Entitic mass] 30.8 pg Normal 27.0-32.0 [facility] Comment on above: Performed By: #### L [id number] #### [facility] Laboratory [address] [place], [address] MCHC (RBC) [Mass/Vol] 31.5 g/dL Low 32-[address] [facility] Comment on above: Performed By: #### L 501.080 #### [facility] Laboratory [address] [place], [address] MCV (RBC) [Entitic vol] 97.8 fL High 80-94 [facility] Comment on above: Performed By: #### L 501.080 #### [facility] Laboratory [address] [place], [address] Monocytes/100 WBC (Bld) 8.4 % Normal 0-10 [facility] Comment on above: Performed By: #### L 501.080 #### [facility] [address] [place], [address] Neutrophils/100 WBC (Bld) 68.7 % Normal 47-70 [facility] Comment on above: Performed By: #### L 501.080 #### [facility] [address] [place], [address] Nucleated RBC (Bld) [#/Vol] 0 10*3/uL Normal 0-5 [facility] Comment on above: Performed By: #### L 501.080 #### [facility] Laboratory [address] [place], [address] Platelet mean volume (Bld) [Entitic vol] 11.2 fL Normal 6.2-12.0 [facility] Comment on above: Performed By: #### L 501.080 #### [facility] [address] [place], [address] Platelets (Bld) [#/Vol] 329 10*3/uL Normal 150-450 [facility] Comment on above: Performed By: #### L 501.080 #### [facility] [address] [place], [address] RBC (Bld) [#/Vol] 4.15 10*6/uL Low 4.6-6.2 [facility] Comment on above: Performed By: #### L 501.080 #### [facility] Laboratory [address] [place], [address] RDW SD 53.7 fl High 35.1-43.9 [facility] Comment on above: Performed By: #### L 501.080 #### [facility] Laboratory [address] [place], [address] WBC (Bld) [#/Vol] 13.1 10*3/uL High 4.4-11.0 [facility] Comment on above: Performed By: #### L 501.080 #### [facility] [address] [place], [address] COVID 19 AG RAPID (MICHELLE COLLE T)on [...] RAPID METHOD BinaxNow COVID19 Ag Card Normal [facility] Comment on above: Performed By: #### L 501.080 #### [facility] [address] [place], [address] COVID-19 virus antigen assay Ordered By: Freddy Swann on 03-04-2023 SARS-CoV-2 (COVID-19) Ag IA.rapid Ql (Resp) [facility] Basic Metabolic Profile (BMP )on 02-28-2023 BUN/CRE 26.6 RATIO High 10-20 [facility] Comment on above: Performed By: #### L 501.080 #### [facility] Laboratory [address] [place], [address] CA,Total 9.0 mg/dL Normal 8.5-10.1 [facility] Comment on above: Performed By: #### L 501.080 #### [facility] Laboratory [address] [place], [address] Chloride [Moles/Vol] 104 mmol/L Normal 98-107 [facility] Comment on above: Performed By: #### L 501.080 #### [facility] [address] [place], [address] CO2 [Moles/Vol] 32.0 mmol/L Normal 21.0-32.0 [facility] Comment on above: Performed By: #### L 501.080 #### [facility] [address] [place], [address] Creatinine [Mass/Vol] 0.94 mg/dL Normal 0.70-1.[address] [facility] Comment on above: Result Comment: The validity of the calculated GFR GFRAA in patients over 70 years has not been determined. Clinical correlation is essential. Performed By: #### L 501.080 #### [facility] [address] [place], [address] ECRCL 50.21 ml/min Normal [facility] Comment on above: Performed By: #### L 501.080 #### [facility] [address] [place], [address] EST GFR - AA 101 mL/min Normal >60 [facility] Comment on above: Result Comment: Afri can Chilean GFR Calc Performed By: #### L 501.080 #### [facility] [address] [place], [address] GAP 3 Low 5-15 [facility] Comment on above: Performed By: #### L 501.080 #### [facility] [address] [place], [address] GFR/1.73 sq M.predicted among non-blacks MDRD (S/P/Bld) [Vol rate/Area] 83 mL/min/{1.73_m2} Normal >60 [facility] Comment on above: Result Comment: Non- GFR Calc Performed By: #### L 501.080 #### [facility] [address] [place], [address] Glucose [Mass/Vol] 75 mg/dL Normal 74-106 [facility] Comment on above: Performed By: #### L 501.080 #### [facility] [address] [place], [address] Potassium [Moles/Vol] 4.0 mmol/L Normal 3.5-5.[address] [facility] Comment on above: Performed By: #### L 501.080 #### [facility] [address] [place], [address] Sodium [Moles/Vol] 139 mmol/L Normal 136-145 [facility] Comment on above: Performed By: #### L 501.080 #### [facility] [address] [place], [address] Urea nitrogen [Mass/Vol] 25 mg/dL High 7-18 [facility] Comment on above: Performed By: #### L 501.080 #### [facility] [address] [place], [address] CBC W/Diff, Automatedon -02 18-2023 Absolute Lymph 2.39 X10 3/uL Normal 0.83-4.51 [facility] Comment on above: Performed By: #### L 501.080 #### [facility] [address] [place], [address] Absolute Neut 4.1 X10 3/uL Normal 2.0-7.7 [facility] Comment on above: Performed By: #### L 501.080 #### [facility] [address] [place], [address] Basophils/100 WBC (Bld) 1.5 % High 0-1 [facility] Comment on above: Performed By: #### L 501.080 #### [facility] [address] [place], [address] Eosinophils/100 WBC (Bld) 4.9 % Normal 0-5 [facility] Comment on above: Performed By: #### L 501.080 #### [facility] [address] [place], [address] Erythrocyte distribution width (RBC) [Ratio] 14.6 % Normal 11.6-14.6 [facility] Comment on above: Performed By: #### L 501.080 #### [facility] [address] [place], [address] Hematocrit (Bld) [Volume fraction] 42.3 % Normal 40-54 [facility] Comment on above: Performed By: #### L 501.080 #### [facility] [address] [place], [address] Hemoglobin (Bld) [Mass/Vol] 13.4 g/dL Normal 13.0-16.5 [facility] Comment on above: Performed By: #### L 501.080 #### [facility] [address] [place], [address] IG% 0.600 Normal 0.0-0.9 [facility] Comment on above: Result Comment: IG% - Immature Granulocytes (promyelocytes, myelocytes and metamyelocytes) > 1% indicates that a LEFT SHIFT is Present. Performed By: #### L 501.080 #### [facility] [address] [place], [address] Lymphocytes/100 WBC (Bld) 29.8 % Normal 19-41 [facility] Comment on above: Performed By: #### L 501.080 #### [facility] [address] [place], [address] MCH (RBC) [Entitic mass] 30.7 pg Normal 27.0-32.0 [facility] Comment on above: Performed By: #### L 501.080 #### [facility] [address] [place], [address] MCHC (RBC) [Mass/Vol] 31.7 g/dL Low 32-[address] [facility] Comment on above: Performed By: #### L 501.080 #### [facility] [address] [place], [address] MCV (RBC) [Entitic vol] 97.0 fL High 80-94 [facility] Comment on above: Performed By: #### L 501.080 #### [facility] [address] [place], [address] Monocytes/100 WBC (Bld) 12.5 % High 0-10 [facility] Comment on above: Performed By: #### L 501.080 #### [facility] [address] [place], [address] Neutrophils/100 WBC (Bld) 50.7 % Normal 47-70 [facility] Comment on above: Performed By: #### L 501.080 #### [facility] [address] [place], [address] Nucleated RBC (Bld) [#/Vol] 0 10*3/uL Normal 0-5 [facility] Comment on above: Performed By: #### L 501.080 #### [facility] [address] [place], [address] Platelet mean volume (Bld) [Entitic vol] 11.0 fL Normal 6.2-12.0 [facility] Comment on above: Performed By: #### L 501.080 #### [facility] [address] [place], [address] Platelets (Bld) [#/Vol] 337 10*3/uL Normal 150-450 [facility] Comment on above: Performed By: #### L 501.080 #### [facility] [address] [place], [address] RBC (Bld) [#/Vol] 4.36 10*6/uL Low 4.6-6.2 [facility] Comment on above: Performed By: #### L 501.080 #### [facility] [address] [place], [address] RDW SD 52.7 fl High 35.1-43.9 [facility] Comment on above: Performed By: #### L 501.080 #### [facility] [address] [place], [address] WBC (Bld) [#/Vol] 8.0 10*3/uL Normal 4.4-11.0 [facility] Comment on above: Performed By: #### L 501.080 #### [facility] [address] [place], [address] COVID 19 AG RAPID (RN COLLE T)on [...] RAPID METHOD BinaxNow COVID19 Ag Card Normal [facility] Comment on above: Performed By: #### L 501.080 #### [facility] [address] [facility] [address] Bedside Glucoseon 01-31-2023 FINGERSTICK GLU 97 mg/dL Normal 74-106 [facility] Comment on above: Result Comment: JESSY GEMENT OF PATIENT CARE PER NURSING PROTOCOL Performed By: #### L 501.080 #### [facility] [address] [facility] [address] FINGERSTICK GLU 101 mg/dL Normal -[address] [place] [address] Comment on above: Result Comment: JESSY GEMENT OF PATIENT CARE PER NURSING PROTOCOL Performed By: #### L 501.080 #### [facility] [address] [facility] [address] FINGERSTICK GLU 149 mg/dL High 74-106 [facility] Comment on above: Result Comment: JESSY GEMENT OF PATIENT CARE PER NURSING PROTOCOL Performed By: #### L 501.080 ####[facility] [address] [place], [address] FINGERSTICK GLU 116 mg/dL High 74-106 [facility] Comment on above: Result Comment: JESSY GEMENT OF PATIENT CARE PER NURSING PROTOCOL Performed By: #### L 501.080 #### [facility] [address] [place], [address] Glucose Glucometer (BldC) [M ass/Vol]Ordered By: Jakob Villeda on 01-31-2023 Glucose [Mass/Vol] 97 mg/dL 74-106 [facility] Comment on above: MANAGEMENT OF PATIEN T CARE PER NURSING PROTOCOL Bedside Glucoseon 01-30-2023 FINGERSTICK GLU 126 mg/dL High 74-106 [facility] Comment on above: Result Comment: JESSY GEMENT OF PATIENT CARE PER NURSING PROTOCOL Performed By: #### L 501.080 ####[facility] [address] [place], [address] FINGERSTICK GLU 102 mg/dL Normal 74-106 [facility] Comment on above: Result Comment: JESSY GEMENT OF PATIENT CARE PER NURSING PROTOCOL Performed By: #### L 501.080 #### [facility] [address] [place], [address] FINGERSTICK GLU 126 mg/dL High 74-106 [facility] Comment on above: Result Comment: JESSY GEMENT OF PATIENT CARE PER NURSING PROTOCOL Performed By: #### L 501.080 #### [facility] [address] [place], [address] FINGERSTICK GLU 89 mg/dL Normal 74-106 [facility] Comment on above: Result Comment: JESSY GEMENT OF PATIENT CARE PER NURSING PROTOCOL Performed By: #### L 501.080 #### [facility] [address] [place], [address] Bedside Glucoseon 01-29-2023 FINGERSTICK GLU 118 mg/dL High 74-106 [facility] Comment on above: Result Comment: JESSY GEMENT OF PATIENT CARE PER NURSING PROTOCOL Performed By: #### L 501.080 ####[facility] [address] [place], [address] FINGERSTICK GLU 119 mg/dL High 74-106 [facility] Comment on above: Result Comment: JESSY GEMENT OF PATIENT CARE PER NURSING PROTOCOL Performed By: #### L 501.080 #### [facility] [address] [place], [address] FINGERSTICK GLU 160 mg/dL High 74-106 [facility] Comment on above: Result Comment: JESSY GEMENT OF PATIENT CARE PER NURSING PROTOCOL Performed By: #### L 501.080 #### [facility] [address] [place], [address] FINGERSTICK GLU 85 mg/dL Normal 74-106 [facility] Comment on above: Result Comment: JESSY GEMENT OF PATIENT CARE PER NURSING PROTOCOL Performed By: #### L 501.080 #### [facility] [address] [place], [address] Absolute lymphocyte countOrd ered By: Nicolasa Willingham on 01-28-2023 Lymphocytes Auto (Unsp spec) [#/Vol] 1.98 10*3/uL 0.83-4.51 [facility] Basophil percentageOrdered B y: Nicolasa Willingham on 01-28-2023 Basophil percentage 3.7 mg/dL 2.5-4.9 [facility] Basophils/100 WBC (Bld) 1.0 % 0-1 [facility] Bilirubin [Mass/Vol] 0.40 mg/dL 0.20-1.00 [facility] Comment on above: For patients on eltr ombopag therapy, use of Dimension [place] TBIL is not recommended. Chloride [Moles/Vol] 103 mmol/L 98-107 [facility] Eosinophils/100 WBC (Bld) 2.5 % 0-5 [facility] Glucose [Mass/Vol] 74 mg/dL 74-106 [facility] Neutrophils (Bld) [#/Vol] 5.4 10*3/uL 2.0-7.7 [facility] Neutrophils/100 WBC (Bld) 62.3 % 47-70 [facility] Potassium [Moles/Vol] 4.2 mmol/L 3.5-5.[address] [facility] Protein [Mass/Vol] 6.3 g/dL 6.4-8.2 [facility] Sodium [Moles/Vol] 138 mmol/L 136-145 [facility] WBC (Bld) [#/Vol] 8.7 10*3/uL 4.4-11.0 [facility] Bedside Glucoseon 01-28-2023 FINGERSTICK GLU 143 mg/dL High 74-106 [facility] Comment on above: Result Comment: JESSY GEMENT OF PATIENT CARE PER NURSING PROTOCOL Performed By: #### L 501.080 #### [facility] [address] [place], [address] FINGERSTICK GLU 128 mg/dL High 74-106 [facility] Comment on above: Result Comment: JESSY GEMENT OF PATIENT CARE PER NURSING PROTOCOL Performed By: #### L 501.080 #### [facility] [address] [place], [address] FINGERSTICK GLU 127 mg/dL High 74-106 [facility] Comment on above: Result Comment: JESSY GEMENT OF PATIENT CARE PER NURSING PROTOCOL Performed By: #### L 501.080 #### [facility] [address] [place], [address] FINGERSTICK GLU 102 mg/dL Normal 74-106 [facility] Comment on above: Result Comment: JESSY GEMENT OF PATIENT CARE PER NURSING PROTOCOL Performed By: #### L 501.080 #### [facility] [address] [place], [address] FINGERSTICK GLU 68 mg/dL Low 74-106 [facility] Comment on above: Result Comment: JESSY GEMENT OF PATIENT CARE PER NURSING PROTOCOL Performed By: #### L 501.080 #### [facility] [address] [place], [address] Blood erythrocytes count (nu mber/volume)Ordered By: Nicolasa Willingham on 01-28-2023 RBC (Bld) [#/Vol] 4.00 10*6/uL 4.6-6.2 [facility] Blood hemoglobin measurement (mass/volume)Ordered By: Nicolasa Willingham on 01-28-2023 Hemoglobin (Bld) [Mass/Vol] 12.0 g/dL 13.0-16.5 [facility] Blood lymphocytes/100 leukoc ytesOrdered By: Nicolasa Willingham on 01-28-2023 Lymphocytes/100 WBC (Bld) 22.7 % 19-41 [facility] Blood monocytes/100 leukocyt esOrdered By: Nicolasa Willingham on 01-28-2023 Monocytes/100 WBC (Bld) 11.0 % 0-10 [facility] Blood platelet mean volumeOr dered By: Nicolasa Willingham on 01-28-2023 Platelet mean volume (Bld) [Entitic vol] 11.4 fL 6.2-12.0 [facility] CBC W/Diff, Automatedon 01-17 Absolute Lymph 1.98 X10 3/uL Normal 0.83-4.51 [facility] Comment on above: Performed By: #### L 501.080 #### [facility] [address] [facility] [place], [address] Absolute Neut 5.4 X10 3/uL Normal 2.0-7.7 [facility] Comment on above: Performed By: #### L 501.080 #### [facility] [address] [place], [address] Basophils/100 WBC (Bld) 1.0 % Normal 0-1 [facility] Comment on above: Performed By: #### L 501.080 #### [facility] [address] [place], [address] Eosinophils/100 WBC (Bld) 2.5 % Normal 0-5 [facility] Comment on above: Performed By: #### L 501.080 #### [facility] [address] [place], [address] Erythrocyte distribution width (RBC) [Ratio] 17.3 % High 11.6-14.6 [facility] Comment on above: Performed By: #### L 501.080 #### [facility] [address] [place], [address] Hematocrit (Bld) [Volume fraction] 38.7 % Low 40-54 [facility] Comment on above: Performed By: #### L 501.080 #### [facility] [address] [place], [address] Hemoglobin (Bld) [Mass/Vol] 12.0 g/dL Low 13.0-16.5 [facility] Comment on above: Performed By: #### L 501.080 #### [facility] [address] [place], [address] IG% 0.500 Normal 0.0-0.9 [facility] Comment on above: Result Comment: IG% - Immature Granulocytes (promyelocytes, myelocytes and metamyelocytes) > 1% indicates that a LEFT SHIFT is Present. Performed By: #### L 501.080 #### [facility] [address] [place], [address] Lymphocytes/100 WBC (Bld) 22.7 % Normal 19-41 [facility] Comment on above: Performed By: #### L 501.080 #### [facility] [address] [place], [address] MCH (RBC) [Entitic mass] 30.0 pg Normal 27.0-32.0 [facility] Comment on above: Performed By: #### L 501.080 #### [facility] [address] [place], [address] MCHC (RBC) [Mass/Vol] 31.0 g/dL Low 32-[address] [facility] Comment on above: Performed By: #### L 501.080 #### [facility] [address] [place], [address] MCV (RBC) [Entitic vol] 96.8 fL High 80-94 [facility] Comment on above: Performed By: #### L 501.080 #### [facility] [address] [place], [address] Monocytes/100 WBC (Bld) 11.0 % High 0-10 [facility] Comment on above: Performed By: #### L 501.080 #### [facility] [address] [place], [address] Neutrophils/100 WBC (Bld) 62.3 % Normal 47-70 [facility] Comment on above: Performed By: #### L 501.080 #### [facility] [address] [place], [address] Nucleated RBC (Bld) [#/Vol] 0 10*3/uL Normal 0-5 [facility] Comment on above: Performed By: #### L 501.080 #### [facility] [address] [place], [address] Platelet mean volume (Bld) [Entitic vol] 11.4 fL Normal 6.2-12.0 [facility] Comment on above: Performed By: #### L 501.080 #### [facility] [address] [place], [address] Platelets (Bld) [#/Vol] 341 10*3/uL Normal 150-450 [facility] Comment on above: Performed By: #### L 501.080 #### [facility] [address] [place], [address] RBC (Bld) [#/Vol] 4.00 10*6/uL Low 4.6-6.2 [facility] Comment on above: Performed By: #### L 501.080 #### [facility] [address] [place], [address] RDW SD 61.1 fl High 35.1-43.9 [facility] Comment on above: Performed By: #### L 501.080 #### [facility] [address] [place], [address] WBC (Bld) [#/Vol] 8.7 10*3/uL Normal 4.4-11.0 [facility] Comment on above: Performed By: #### L 501.080 #### [facility] [address] [place], [address] Comprehensive Metabolic Prof ilon 01-28-2023 Albumin [Mass/Vol] 2.6 g/dL Low 3.2-5.0 [facility] Comment on above: Performed By: #### L 501.080 #### [facility] [address] [place], [address] Albumin/Globulin [Mass ratio] 0.7 {ratio} Low 0.9-2.4 [facility] Comment on above: Performed By: #### L 501.080 #### [facility] [address] [place], [address] ALK P 87 U/L Normal 45-117 [facility] Comment on above: Performed By: #### L 501.080 #### [facility] [address] [place], [address] ALT [Catalytic activity/Vol] 8 U/L Low 16-61 [facility] Comment on above: Performed By: #### L 501.080 #### [facility] [address] [place], [address] AST [Catalytic activity/Vol] 23 U/L Normal 15-37 [facility] Comment on above: Performed By: #### L 501.080 #### [facility] [address] [place], [address] Bilirubin [Mass/Vol] 0.40 mg/dL Normal 0.20-1.00 [facility] Comment on above: Result Comment: For patients on eltrombopag therapy, use of Dimension [place] TBIL is not recommended. Performed By: #### L 501.080 #### [facility] [address] [place], [address] BUN/CRE 27.5 RATIO High 10-20 [facility] Comment on above: Performed By: #### L 501.080 #### [facility] [address] [place], [address] CA,Total 8.6 mg/dL Normal 8.5-10.1 [facility] Comment on above: Performed By: #### L 501.080 #### [facility] [address] [place], [address] Chloride [Moles/Vol] 103 mmol/L Normal 98-107 [facility] Comment on above: Performed By: #### L 501.080 #### [facility] [address] [place], [address] CO2 [Moles/Vol] 31.0 mmol/L Normal 21.0-32.0 [facility] Comment on above: Performed By: #### L 501.080 #### [facility] [address] [place], [address] Creatinine [Mass/Vol] 0.84 mg/dL Normal 0.70-1.[address] [facility] Comment on above: Result Comment: The validity of the calculated GFR GFRAA in patients over 70 years has not been determined. Clinical correlation is essential. Performed By: #### L 501.080 #### [facility] [address] [place], [address] ECRCL 59.91 ml/min Normal [facility] Comment on above: Performed By: #### L 501.080 #### [facility] [address] [place], [address] EST GFR - AA 116 mL/min Normal >60 [facility] Comment on above: Result Comment: Afri can [place] GFR Calc Performed By: #### L 501.080 #### [facility] [address] [place], [address] GAP 4 Low 5-15 [facility] Comment on above: Performed By: #### L 501.080 #### [facility] [address] [place], [address] GFR/1.73 sq M.predicted among non-blacks MDRD (S/P/Bld) [Vol rate/Area] 95 mL/min/{1.73_m2} Normal >60 [facility] Comment on above: Result Comment: Non- GFR Calc Performed By: #### L 501.080 #### [facility] [address] [place], [address] Globulin (S) [Mass/Vol] 3.7 g/dL Normal 2.2-4.2 [facility] Comment on above: Performed By: #### L 501.080 #### [facility] [address] [place], [address] Glucose [Mass/Vol] 74 mg/dL Normal 74-106 [facility] Comment on above: Performed By: #### L 501.080 #### [facility] [address] [place], [address] Potassium [Moles/Vol] 4.2 mmol/L Normal 3.5-5.[address] [facility] Comment on above: Performed By: #### L 501.080 #### [facility] [address] [place], [address] Sodium [Moles/Vol] 138 mmol/L Normal 136-145 [facility] Comment on above: Performed By: #### L 501.080 #### [facility] [address] [place], [address] T PROT 6.3 g/dL Low 6.4-8.2 [facility] Comment on above: Performed By: #### L 501.080 #### [facility] [address] [place], [address] Urea nitrogen [Mass/Vol] 23 mg/dL High 7-18 [facility] Comment on above: Performed By: #### L 501.080 #### [facility] [address] [place], [address] Determination of erythrocyte mean corpuscular volume (MCV)Ordered By: Nicolasa Willingham on 01-28-2023 MCV (RBC) [Entitic vol] 96.8 fL 80-94 [facility] Hematocrit Auto (Bld) [Volum e fraction]Ordered By: Nicolasa Willingham on 01-28-2023 Hematocrit (Bld) [Volume fraction] 38.7 % 40-54 [facility] - Chemistry and C hemistry - challengeOrdered By: Nicolasa Willingham on 01-28-2023 ALP [Catalytic activity/Vol] 87 U/L 45-117 [facility] ALT [Catalytic activity/Vol] 8 U/L 16-61 [facility] CO2 [Moles/Vol] 31.0 mmol/L 21.0-32.0 [facility] [place] Globulin (S) [Mass/Vol] 3.7 g/dL 2.2-4.2 [facility] Magnesium [Mass/Vol] 2.3 mg/dL 1.6-2.6 [facility] Urea nitrogen/Creatinine [Mass ratio] 27.5 mg/mg 10-20 [facility] Laboratory - Hematology and Cell countsOrdered By: Nicolasa Willingham on 01-28-2023 Erythrocyte distribution width (RBC) [Entitic vol] 61.1 fL 35.1-43.9 [facility] Erythrocyte distribution width (RBC) [Ratio] 17.3 % 11.6-14.6 [facility] Immature granulocytes/100 WBC (Bld) 0.500 % 0.0-0.9 [facility] Comment on above: IG% - Immature Granu locytes (promyelocytes, myelocytes and metamyelocytes) > 1% indicates that a LEFT SHIFT is Present. MCH (RBC) [Entitic mass] 30.0 pg 27.0-32.0 [facility] Nucleated RBC/100 WBC (Bld) [Ratio] 0 % 0-5 [facility] MCHC Auto (RBC) [Mass/Vol]Or dered By: Nicolasa Willingham on 01-28-2023 MCHC (RBC) [Mass/Vol] 31.0 g/dL 32-[address] [facility] Magnesiumon 01-28-2023 Magnesium [Mass/Vol] 2.3 mg/dL Normal 1.6-2.6 [facility] Comment on above: Performed By: #### L 501.080 #### [facility] Laboratory [address] [place], [address] No Panel InformationOrdered By: Nicolasa Willingham on 01-28-2023 Estimated Creatinine Clearance Calc 59.91 ml/min [facility] Estimated GFR (MDRD) Amer 116 mL/min >60 [facility] Comment on above: GFR Calc Estimated GFR (MDRD) Non-Af Amer 95 mL/min >60 [facility] Comment on above: Non- GFR Calc Phosphoruson 01-28-2023 Phosphate [Mass/Vol] 3.7 mg/dL Normal 2.5-4.9 [facility] Comment on above: Performed By: #### L 501.080 #### [facility] Laboratory [address] [place], [address] Platelets bldOrdered By: Indra Willingham on 01-28-2023 Platelets (Bld) [#/Vol] 341 10*3/uL 150-450 [facility] Serum or plasma albumin hayden urement (mass/volume)Ordered By: Nicolasa Willingham on 01-28-2023 Albumin [Mass/Vol] 2.6 g/dL 3.2-5.0 [facility] Serum or plasma albumin/glob ulin mass ratioOrdered By: Nicolasa Willingham on 01-28-2023 Albumin/Globulin [Mass ratio] 0.7 {ratio} 0.9-2.4 [facility] Serum or plasma calcium hayden urement (mass/volume)Ordered By: Nicolasa Willingham on 01-28-2023 Calcium [Mass/Vol] 8.6 mg/dL 8.5-10.1 [facility] Serum or plasma creatinine m easurement (mass/volume)Ordered By: Nicolasa Willingham on 01-28-2023 Creatinine [Mass/Vol] 0.84 mg/dL 0.70-1.[address] [facility] Comment on above: The validity of the calculated GFR & GFRAA in patients over 70 years has not been determined. Clinical correlation is essential. Serum or plasma urea nitroge n measurement (mass/volume)Ordered By: Nicolasa Willingham on 01-28-2023 Urea nitrogen [Mass/Vol] 23 mg/dL 7-18 [facility] Thin prep Papanicolaou smear with manual screeningOrdered By: Nicolasa Willingham on 01-28-2023 Thin prep Papanicolaou smear with manual screening 23 U/L 15-37 [facility] Thin prep Papanicolaou smear with manual screening 4 5-15 [facility] Bedside Glucoseon 01-27-2023 FINGERSTICK GLU 86 mg/dL Normal 74-106 [facility] Comment on above: Result Comment: JESSY GEMENT OF PATIENT CARE PER NURSING PROTOCOL Performed By: #### L 501.080 #### [facility] Laboratory [address] [place], [place], [id number] (504) FINGERSTICK GLU 104 mg/dL Normal 74-106 [facility] Comment on above: Result Comment: JESSY GEMENT OF PATIENT CARE PER NURSING PROTOCOL Performed By: #### L 501.080 ####[facility] [address] [place], [address] FINGERSTICK GLU 84 mg/dL Normal 74-106 [facility] Comment on above: Result Comment: JESSY GEMENT OF PATIENT CARE PER NURSING PROTOCOL Performed By: #### L 501.080 #### [facility] Laboratory [address] [place], [address] FINGERSTICK GLU 147 mg/dL High 74-106 [facility] Comment on above: Result Comment: JESSY GEMENT OF PATIENT CARE PER NURSING PROTOCOL Performed By: #### L 501.080 ####[facility] [address] [place], [address] FINGERSTICK GLU 98 mg/dL Normal 74-106 [facility] Comment on above: Result Comment: JESSY GEMENT OF PATIENT CARE PER NURSING PROTOCOL Performed By: #### L 501.080 #### [facility] Laboratory [address] [place], [address] Bedside Glucoseon 01-26-2023 FINGERSTICK GLU 136 mg/dL High 74-106 [facility] Comment on above: Result Comment: JESSY GEMENT OF PATIENT CARE PER NURSING PROTOCOL Performed By: #### L 501.080 #### [facility] Laboratory [address] [place], [address] FINGERSTICK GLU 116 mg/dL High 74-106 [facility] Comment on above: Result Comment: JESSY GEMENT OF PATIENT CARE PER NURSING PROTOCOL Performed By: #### L 501.080 #### [facility] Laboratory [address] [place], [address] FINGERSTICK GLU 150 mg/dL High 74-106 [facility] Comment on above: Result Comment: JESSY GEMENT OF PATIENT CARE PER NURSING PROTOCOL Performed By: #### L 501.080 #### [facility] Laboratory [address] [place], [address] FINGERSTICK GLU 85 mg/dL Normal 74-106 [facility] Comment on above: Result Comment: JESSY GEMENT OF PATIENT CARE PER NURSING PROTOCOL Performed By: #### L 501.080 #### [facility] Laboratory [address] [place], [address] Bedside Glucoseon 01-25-2023 FINGERSTICK GLU 114 mg/dL High 74-106 [facility] Comment on above: Result Comment: JESSY GEMENT OF PATIENT CARE PER NURSING PROTOCOL Performed By: #### L 501.080 #### [facility] Laboratory [address] [place], [address] FINGERSTICK GLU 238 mg/dL High 74-106 [facility] Comment on above: Result Comment: JESSY GEMENT OF PATIENT CARE PER NURSING PROTOCOL Performed By: #### L 501.080 ####[facility] [address] [place], [address] FINGERSTICK GLU 134 mg/dL High 74-106 [facility] Comment on above: Result Comment: JESSY GEMENT OF PATIENT CARE PER NURSING PROTOCOL Performed By: #### L 501.080 ####[facility] [address] [place], [address] FINGERSTICK GLU 122 mg/dL High 74-106 [facility] Comment on above: Result Comment: JESSY GEMENT OF PATIENT CARE PER NURSING PROTOCOL Performed By: #### L 501.080 ####[facility] [address] [place], [address] Bedside Glucoseon 01-24-2023 FINGERSTICK GLU 103 mg/dL Normal 74-106 [facility] Comment on above: Result Comment: JESSY GEMENT OF PATIENT CARE PER NURSING PROTOCOL Performed By: #### L 501.080 #### [facility] Laboratory [address] [place], [address] FINGERSTICK GLU 107 mg/dL High 74-106 [facility] Comment on above: Result Comment: JESSY GEMENT OF PATIENT CARE PER NURSING PROTOCOL Performed By: #### L 501.080 #### [facility] Laboratory [address] [place], [address] FINGERSTICK GLU 102 mg/dL Normal 74-106 [facility] Comment on above: Result Comment: JESSY GEMENT OF PATIENT CARE PER NURSING PROTOCOL Performed By: #### L 501.080 #### [facility] Laboratory [address] [place], [address] FINGERSTICK GLU 122 mg/dL High 74-106 [facility] Comment on above: Result Comment: JESSY GEMENT OF PATIENT CARE PER NURSING PROTOCOL Performed By: #### L 501.080 #### [facility] Laboratory [address] [place], [address] FINGERSTICK GLU 114 mg/dL High 74-106 [facility] Comment on above: Result Comment: JESSY GEMENT OF PATIENT CARE PER NURSING PROTOCOL Performed By: #### L 501.080 ####[facility] [address] [place], [address] FINGERSTICK GLU 95 mg/dL Normal 74-106 [facility] Comment on above: Result Comment: JESSY GEMENT OF PATIENT CARE PER NURSING PROTOCOL Performed By: #### L 501.080 #### [facility] Laboratory [address] [place], [address] Bedside Glucoseon 01-23-2023 FINGERSTICK GLU 94 mg/dL Normal 74-106 [facility] Comment on above: Result Comment: JESSY GEMENT OF PATIENT CARE PER NURSING PROTOCOL Performed By: #### L 501.080 #### [facility] Laboratory [address] [place], [address] FINGERSTICK GLU 96 mg/dL Normal 74-106 [facility] Comment on above: Result Comment: JESSY GEMENT OF PATIENT CARE PER NURSING PROTOCOL Performed By: #### L 501.080 #### [facility] Laboratory [address] [place], [address] FINGERSTICK GLU 150 mg/dL High 74-106 [facility] Comment on above: Result Comment: JESSY GEMENT OF PATIENT CARE PER NURSING PROTOCOL Performed By: #### L 501.080 #### [facility] Laboratory [address] [place], [address] FINGERSTICK GLU 125 mg/dL High 74-106 [facility] Comment on above: Result Comment: JESSY GEMENT OF PATIENT CARE PER NURSING PROTOCOL Performed By: #### L 501.080 #### [facility] Laboratory [address] [place], [address] Bedside Glucoseon 3 FINGERSTICK GLU 108 mg/dL High 74-106 [facility] Comment on above: Result Comment: JESSY GEMENT OF PATIENT CARE PER NURSING PROTOCOL Performed By: #### L 501.080 #### [facility] Laboratory [address] [place], [address] FINGERSTICK GLU 87 mg/dL Normal 74-106 [facility] Comment on above: Result Comment: JESSY GEMENT OF PATIENT CARE PER NURSING PROTOCOL Performed By: #### L 501.080 #### [facility] Laboratory [address] [place], [address] Bedside Glucoseon 3 FINGERSTICK GLU 160 mg/dL High 74-106 [facility] Comment on above: Result Comment: JESSY GEMENT OF PATIENT CARE PER NURSING PROTOCOL Performed By: #### L 501.080 #### [facility] Laboratory [address] [place], [address] FINGERSTICK GLU 169 mg/dL High 74-106 [facility] Comment on above: Result Comment: JESSY GEMENT OF PATIENT CARE PER NURSING PROTOCOL Performed By: #### L 501.080 #### [facility] Laboratory [address] [place], [address] FINGERSTICK GLU 115 mg/dL High 74-106 [facility] Comment on above: Result Comment: JESSY GEMENT OF PATIENT CARE PER NURSING PROTOCOL Performed By: #### L 501.080 #### [facility] Laboratory [address] [place], [address] FINGERSTICK GLU 87 mg/dL Normal 74-106 [facility] Comment on above: Result Comment: JESSY GEMENT OF PATIENT CARE PER NURSING PROTOCOL Performed By: #### L 501.080 #### [facility] Laboratory [address] [place], [address] Culture, Blood (WB)on 2022 CUB No growth in 5 days. Normal [facility] Comment on above: Performed By: #### L 501.080 #### [facility] Laboratory [address] [place], [address] CUB No growth in 5 days. Normal [facility] Comment on above: Performed By: #### M 200.1000 ####[facility] [address] [place], [address] Bedside Glucoseon 01-20-2023 FINGERSTICK GLU 126 mg/dL High 74-106 [facility] Comment on above: Result Comment: JESSY GEMENT OF PATIENT CARE PER NURSING PROTOCOL Performed By: #### L 501.080 #### [facility] Laboratory [address] [place], [address] FINGERSTICK GLU 79 mg/dL Normal 74-106 [facility] Comment on above: Result Comment: JESSY GEMENT OF PATIENT CARE PER NURSING PROTOCOL Performed By: #### L 501.080 #### [facility] Laboratory [address] [place], [address] FINGERSTICK GLU 115 mg/dL High 74-106 [facility] Comment on above: Result Comment: JESSY GEMENT OF PATIENT CARE PER NURSING PROTOCOL Performed By: #### L 501.080 #### [facility] Laboratory [address] [place], [address] FINGERSTICK GLU 74 mg/dL Normal 74-106 [facility] Comment on above: Result Comment: JESSY GEMENT OF PATIENT CARE PER NURSING PROTOCOL Performed By: #### L 501.080 #### [facility] Laboratory [address] [place], [address] Bedside Glucoseon 01-19-2023 FINGERSTICK GLU 74 mg/dL Normal 74-106 [facility] Comment on above: Result Comment: JESSY GEMENT OF PATIENT CARE PER NURSING PROTOCOL Performed By: #### L 501.080 #### [facility] Laboratory [address] [place], [address] FINGERSTICK GLU 129 mg/dL High 74-106 [facility] Comment on above: Result Comment: JESSY GEMENT OF PATIENT CARE PER NURSING PROTOCOL Performed By: #### L 501.080 ####[facility] [address] [place], [address] FINGERSTICK GLU 121 mg/dL High 74-106 [facility] Comment on above: Result Comment: JESSY GEMENT OF PATIENT CARE PER NURSING PROTOCOL Performed By: #### L 501.080 ####[facility] [address] [place], [address] FINGERSTICK GLU 86 mg/dL Normal 74-106 [facility] Comment on above: Result Comment: JESSY GEMENT OF PATIENT CARE PER NURSING PROTOCOL Performed By: #### L 501.080 ####[facility] [address] [place], [address] Bedside Glucoseon 01-18-2023 FINGERSTICK GLU 99 mg/dL Normal 74-106 [facility] Comment on above: Result Comment: JESSY GEMENT OF PATIENT CARE PER NURSING PROTOCOL Performed By: #### L 501.080 ####[facility] [address] [place], [address] FINGERSTICK GLU 116 mg/dL High 74-106 [facility] Comment on above: Result Comment: JESSY GEMENT OF PATIENT CARE PER NURSING PROTOCOL Performed By: #### L 501.080 #### [facility] Laboratory [address] [place], [address] FINGERSTICK GLU 94 mg/dL Normal 74-106 [facility] Comment on above: Result Comment: JESSY GEMENT OF PATIENT CARE PER NURSING PROTOCOL Performed By: #### L 501.080 ####[facility] [address] [place], [address] Urine Cultureon 01-18-2023 [facility] Staphylococcus aureu s [place] Count >100,000 Staphylococcus aureus: REACTION cefOXitin Susc [...] S Vancomycin Islt MAT <=0.5 S Normal [facility] Comment on above: Performed By: #### L 501.080 #### [facility] Laboratory [address] [place], [address] Bedside Glucoseon 01-17-2023 FINGERSTICK GLU 102 mg/dL Normal 74-106 [facility] Comment on above: Result Comment: JESSY GEMENT OF PATIENT CARE PER NURSING PROTOCOL Performed By: #### L 501.080 #### [facility] Laboratory [address] [place], [address] FINGERSTICK GLU 95 mg/dL Normal 74-106 [facility] Comment on above: Result Comment: JESSY GEMENT OF PATIENT CARE PER NURSING PROTOCOL Performed By: #### L 501.080 ####[facility] [address] [place], [address] FINGERSTICK GLU 116 mg/dL High 74-106 [facility] Comment on above: Result Comment: JESSY GEMENT OF PATIENT CARE PER NURSING PROTOCOL Performed By: #### L 501.080 ####[facility] [address] [place], [address] FINGERSTICK GLU 83 mg/dL Normal 74-106 [facility] Comment on above: Result Comment: JESSY GEMENT OF PATIENT CARE PER NURSING PROTOCOL Performed By: #### L 501.080 ####[facility] [address] [place], [address] Bedside Glucoseon 01-16-2023 FINGERSTICK GLU 90 mg/dL Normal 74-106 [facility] Comment on above: Result Comment: JESSY GEMENT OF PATIENT CARE PER NURSING PROTOCOL Performed By: #### L 501.080 ####[facility] [address] [place], [address] FINGERSTICK GLU 80 mg/dL Normal 74-106 [facility] Comment on above: Result Comment: JESSY GEMENT OF PATIENT CARE PER NURSING PROTOCOL Performed By: #### L 501.080 #### [facility] Laboratory [address] [place], [address] FINGERSTICK GLU 110 mg/dL High 74-106 [facility] Comment on above: Result Comment: JESSY GEMENT OF PATIENT CARE PER NURSING PROTOCOL Performed By: #### L 501.080 #### [facility] Laboratory [address] [place], [address] FINGERSTICK GLU 91 mg/dL Normal 74-106 [facility] Comment on above: Result Comment: JESSY GEMENT OF PATIENT CARE PER NURSING PROTOCOL Performed By: #### L 501.080 #### [facility] [address] [place], [address] Basophil percentageOrdered B y: Ana Lilia Ji on 01-15-2023 Basophil percentage >100 SEEN /hpf 0-5 [facility] Bedside Glucoseon 01-15-2023 FINGERSTICK GLU 133 mg/dL High 74-106 [facility] Comment on above: Result Comment: JESSY GEMENT OF PATIENT CARE PER NURSING PROTOCOL Performed By: #### L 501.080 ####[facility] [address] [place], [address] FINGERSTICK GLU 115 mg/dL High 74-106 [facility] Comment on above: Result Comment: JESSY GEMENT OF PATIENT CARE PER NURSING PROTOCOL Performed By: #### L 501.080 #### [facility] [address] [place], [address] FINGERSTICK GLU 104 mg/dL Normal 74-106 [facility] Comment on above: Result Comment: JESSY GEMENT OF PATIENT CARE PER NURSING PROTOCOL Performed By: #### L 501.080 #### [facility] [address] [place], [address] Bilirubin Test strip Ql (U)O rdered By: Ana Lilia Ji on 01-15-2023 Bilirubin Ql (U) Negative Negative [facility] CBC-Complete Blood Cnt No Di ffon 01-15-2023 Erythrocyte distribution width (RBC) [Ratio] 15.3 % High 11.6-14.6 [facility] Comment on above: Performed By: #### L 501.080 #### [facility] Laboratory [address] [place], [address] Hematocrit (Bld) [Volume fraction] 36.4 % Low 40-54 [facility] Comment on above: Performed By: #### L 501.080 #### [facility] [address] [place], [address] Hemoglobin (Bld) [Mass/Vol] 11.5 g/dL Low 13.0-16.5 [facility] Comment on above: Performed By: #### L 501.080 #### [facility] [address] [place], [address] MCH (RBC) [Entitic mass] 29.8 pg Normal 27.0-32.0 [facility] Comment on above: Performed By: #### L 501.080 #### [facility] [address] [place], [address] MCHC (RBC) [Mass/Vol] 31.6 g/dL Low 32-[address] [facility] Comment on above: Performed By: #### L 501.080 #### [facility] [address] [place], [address] MCV (RBC) [Entitic vol] 94.3 fL High 80-94 [facility] Comment on above: Performed By: #### L 501.080 #### [facility] [address] [place], [address] Platelet mean volume (Bld) [Entitic vol] 10.9 fL Normal 6.2-12.0 [facility] Comment on above: Performed By: #### L 501.080 #### [facility] Laboratory [address] [place], [address] Platelets (Bld) [#/Vol] 379 10*3/uL Normal 150-450 [facility] Comment on above: Performed By: #### L 501.080 #### [facility] [address] [place], [address] RBC (Bld) [#/Vol] 3.86 10*6/uL Low 4.6-6.2 [facility] Comment on above: Performed By: #### L 501.080 #### [facility] [address] [place], [address] RDW SD 52.0 fl High 35.1-43.9 [facility] Comment on above: Performed By: #### L 501.080 #### [facility] [address] [place], [address] WBC (Bld) [#/Vol] 10.3 10*3/uL Normal 4.4-11.0 [facility] Comment on above: Performed By: #### L 501.080 #### [facility] [address] [place], [address] Comprehensive Metabolic Prof sheridanalex 01-15-2023 ALT [Catalytic activity/Vol] U/L Low 16-61 [facility] Comment on above: Performed By: #### L 501.2300, L501.5200, L500.4050, L100.0500 ####[facility] [address] [place], [address] Bilirubin [Mass/Vol] 0.40 mg/dL Normal 0.20-1.00 [facility] Comment on above: Result Comment: For patients on eltrombopag therapy, use of Dimension [place] TBIL is not recommended. Performed By: #### L 501.2300, L501.5200, L500.4050, L100.0500 ####[facility] [address] [place], [address] Chloride [Moles/Vol] 102 mmol/L Normal 98-107 [facility] Comment on above: Performed By: #### L 501.2300, L501.5200, L500.4050, L100.0500 ####[facility] [address] [place], [address] CO2 [Moles/Vol] 35.0 mmol/L High 21.0-32.0 [facility] Comment on above: Performed By: #### L 501.2300, L501.5200, L500.4050, L100.0500 ####[facility] [address] [place], [address] GAP -1 Low 5-15 [facility] Comment on above: Performed By: #### L 501.2300, L501.5200, L500.4050, L100.0500 ####[facility] [address] [place], [address] Potassium [Moles/Vol] 4.2 mmol/L Normal 3.5-5.[address] [facility] Comment on above: Performed By: #### L 501.2300, L501.5200, L500.4050, L100.0500 ####[facility] [address] [place], [address] Sodium [Moles/Vol] 136 mmol/L Normal 136-145 [facility] Comment on above: Performed By: #### L 501.2300, L501.5200, L500.4050, L100.0500 ####[facility] [address] [place], [address] Albumin [Mass/Vol] 2.4 g/dL Low 3.2-5.0 [facility] Comment on above: Performed By: #### L 501.2300, L501.5200, L500.4050, L100.0500 ####[facility] [address] [place], [address] Albumin/Globulin [Mass ratio] 0.7 {ratio} Low 0.9-2.4 [facility] Comment on above: Performed By: #### L 501.2300, L501.5200, L500.4050, L100.0500 ####[facility] [address] [place], [address] ALK P 77 U/L Normal 45-117 [facility] Comment on above: Performed By: #### L 501.2300, L501.5200, L500.4050, L100.0500 ####[facility] [address] [place], [address] AST [Catalytic activity/Vol] 10 U/L Low 15-37 [facility] Comment on above: Performed By: #### L 501.2300, L501.5200, L500.4050, L100.0500 ####[facility] [address] [place], [address] BUN/CRE 24.7 RATIO High 10-20 [facility] Comment on above: Performed By: #### L 501.2300, L501.5200, L500.4050, L100.0500 ####[facility] [address] [place], [address] CA,Total 8.4 mg/dL Low 8.5-10.1 [facility] Comment on above: Performed By: #### L 501.2300, L501.5200, L500.4050, L100.0500 ####[facility] [address] [place], [address] Creatinine [Mass/Vol] 0.97 mg/dL Normal 0.70-1.[address] [facility] Comment on above: Result Comment: The validity of the calculated GFR GFRAA in patients over 70 years has not been determined. Clinical correlation is essential. Performed By: #### L 501.2300, L501.5200, L500.4050, L100.0500 ####[facility] [address] [place], [address] ECRCL 48.20 ml/min Normal [facility] Comment on above: Performed By: #### L 501.2300, L501.5200, L500.4050, L100.0500 ####[facility] [address] [place], [address] EST GFR - AA 97 mL/min Normal >60 [facility] Comment on above: Performed By: #### L 501.2300, L501.5200, L500.4050, L100.0500 ####[facility] [address] [place], [address] GFR/1.73 sq M.predicted among non-blacks MDRD (S/P/Bld) [Vol rate/Area] 80 mL/min/{1.73_m2} Normal >60 [facility] Comment on above: Performed By: #### L 501.2300, L501.5200, L500.4050, L100.0500 ####[facility] [address] [place], [address] Globulin (S) [Mass/Vol] 3.6 g/dL Normal 2.2-4.2 [facility] Comment on above: Performed By: #### L 501.2300, L501.5200, L500.4050, L100.0500 ####[facility] [address] [place], [address] Glucose [Mass/Vol] 99 mg/dL Normal 74-106 [facility] Comment on above: Performed By: #### L 501.2300, L501.5200, L500.4050, L100.0500 ####[facility] [address] [place], [address] T PROT 6.0 g/dL Low 6.4-8.2 [facility] Comment on above: Performed By: #### L 501.2300, L501.5200, L500.4050, L100.0500 ####[facility] [address] [place], [address] Urea nitrogen [Mass/Vol] 24 mg/dL High 7-18 [facility] Comment on above: Performed By: #### L 501.2300, L501.5200, L500.4050, L100.0500 ####[facility] [address] [place], [address] Culture, urineOrdered By: Deniz Willingham on 01-15-2023 Bacteria identified Cx Nom (U) Staphylococcus aureus [facility] Bacteria identified Cx Nom (U) Staphylococcus aureus [facility] Ketones Test strip Ql (U)Ord ered By: Ana Lilia Ji on 01-15-2023 Ketones Ql (U) 5 mg/dl Negative [facility] Laboratory - Microbiology an d Antimicrobial susceptibilityOrdered By: Ana Lilia Ji on 01-15-2023 Bacteria identified Cx Nom (Bld) No growth in 5 days. [facility] Bacteria identified Cx Nom (Bld) No growth in 5 days. [facility] Magnesiumon 01-15-2023 Magnesium [Mass/Vol] 3.2 mg/dL High 1.6-2.6 [facility] Comment on above: Performed By: #### L 501.2300, L501.5200, L500.4050, L100.0500 ####[facility] [address] [place], [address] Mucus LM Ql (Urine sed)Order ed By: Ana Lilia Ji on 01-15-2023 Mucus Ql (Urine sed) RARE /hpf [facility] Nitrite Test strip Ql (U)Ord ered By: Ana Lilia Ji on 01-15-2023 Nitrite Ql (U) Negative Negative [facility] Phosphoruson 01-15-2023 Phosphate [Mass/Vol] 2.4 mg/dL Low 2.5-4.9 [facility] Comment on above: Performed By: #### L 501.2300, L501.5200, L500.4050, L100.0500 ####[facility] [address] [place], [address] Protein Test strip Ql (U)Ord ered By: Ana Lilia Ji on 01-15-2023 Protein Ql (U) 15 mg/dl Negative [facility] Squamous epithelial cells de tection in urine sediment by light microscopyOrdered By: Ana Lilia Ji on 01-15-2023 Epithelial cells.squamous LM Ql (Urine sed) 0 SEEN /hpf 0-5 [facility] Urinalysis, Completeon 01-15 Mucus Ql (Urine sed) RARE Normal [facility] Comment on above: Order Comment: june traight cathCATHETER SPECIMEN Performed By: #### L 501.080 #### [facility] Laboratory [address] [place], [address] RBC 0-5 SEEN Normal 0-5 [facility] Comment on above: Order Comment: may s traight cathCATHETER SPECIMEN Performed By: #### L 501.080 #### [facility] Laboratory [address] [place], [address] BACTERIA 1+ /hpf Normal None Seen [facility] Comment on above: Order Comment: may s traight cathCATHETER SPECIMEN Performed By: #### L 501.080 #### [facility] Laboratory [address] [place], [address] WBC >100 SEEN Normal 0-5 [facility] Comment on above: Order Comment: may s traight cathCATHETER SPECIMEN Performed By: #### L 501.080 #### [facility] Laboratory [address] [place], [address] EPI,SQUAMOUS 0 SEEN Normal 0-5 [facility] Comment on above: Order Comment: may s traight cathCATHETER SPECIMEN Performed By: #### L 501.080 #### [facility] Laboratory [address] [place], [address] Urine blood detectionOrdered By: Ana Lilia Ji on 01-15-2023 RBC Ql (U) 25 /ul Negative [facility] RBC Ql (U) 0-5 SEEN /hpf 0-5 [facility] Urine clarityOrdered By: Fritz Ji on 01-15-2023 Clarity (U) Sl. Cloudy Clear [facility] Urine color determinationOrd ered By: Ana Lilia Ji on 01-15-2023 Color (U) Yellow Yellow [facility] Urine glucose detectionOrder ed By: Ana Lilia Ji on 01-15-2023 Glucose Ql (U) Normal mg/dl Normal [facility] Urine leukocyte esterase det ection by dipstickOrdered By: Ana Lilia Ji on 01-15-2023 Leukocyte esterase Test strip Ql (U) 500 /ul Negative [facility] Urine pHOrdered By: Ana Lilia castro on 01-15-2023 pH (U) 8.0 [pH] 5.0 - 8.0 [facility] Urine sediment bacteria coun t by microscopy (number/high power field)Ordered By: Ana Lilia Ji on 01-15-2023 Bacteria LM.HPF (Urine sed) [#/Area] 1 /[HPF] None Seen [facility] Urine specific gravity measu rementOrdered By: Ana Lilia Ji on 01-15-2023 Specific gravity (U) [Rel density] 1.015 1.002-1.030 [facility] Urobilinogen Auto test strip Ql (U)Ordered By: Ana Lilia Ji on 01-15-2023 Urobilinogen Ql (U) Normal mg/dl Normal [facility] Basic metabolic 2000 panelon 01-14-2023 Anion gap [Moles/Vol] 5 mmol/L Low 9-18 [facility] Comment on above: Order Comment: Speci men Type: BLOOD SPECIMENOrdering Facility: [facility] Address: [address] [place] [address] Performed By: #### 2 4321-2 ####LYN LABORATORYCLIA [id number] [place] [address] [place] Calcium [Mass/Vol] 8.0 mg/dL Low 8.5-10.2 [facility] Comment on above: Order Comment: Speci men Type: BLOOD SPECIMENOrdering Facility: [facility] Address: [address] [place] [address] Performed By: #### 2 4321-2 ####LYN LABORATORYCLIA [id number] [place] [address] [place] Chloride [Moles/Vol] 96 mmol/L Low 97-105 [facility] Comment on above: Order Comment: Speci men Type: BLOOD SPECIMENOrdering Facility: [facility] Address: [address] [place] [address] Performed By: #### 2 4321-2 ####LYN LABORATORYCLIA [id number] [place] [address] [place] CO2 [Moles/Vol] 32 mmol/L High 22-30 [facility] Comment on above: Order Comment: Speci men Type: BLOOD SPECIMENOrdering Facility: [facility] Address: [address] [place] [address] Performed By: #### 2 4321-2 ####LYN LABORATORYCLIA [id number] [address] STATES OF [facility] Creatinine [Mass/Vol] 0.85 mg/dL Normal 0.73-1.22 [facility] Comment on above: Order Comment: Greer tapia Type: BLOOD SPECIMENOrdering Facility: [facility] Address: [address] [place] [address] Performed By: #### 2 4321-2 ####HUME LABORATORYCLIA [id number] [place] [id number] [facility] Creatinine and Glomerular filtration rate.predicted panel (S/P/Bld) 91 mL/min/1.73m??? Normal >=60 [facility] Comment on above: Order Comment: Greer tapia Type: BLOOD SPECIMENOrdering Facility: [facility] Address: [address] [place] [address] Result Comment: Daiana mated Glomerular Filtration Rate [...] Performed By: #### 2 4321-2 ####LYN LABORATORYCLIA [id number] [address] [place] Glucose [Mass/Vol] 104 mg/dL High 74-99 [facility] Comment on above: Order Comment: Greer tapia Type: BLOOD SPECIMENOrdering Facility: [facility] Address: [address] [place] [address] Result Comment: The [place] [employer] (ADA) provides guidance for cutoff [...] Standards of Medical Care in Diabetes 2016, [place] [employer]. Diabetes Care. 2016.39(Suppl 1). Performed By: #### 2 4321-2 ####LYN LABORATORYCLIA [id number] [address] Potassium [Moles/Vol] 4.6 mmol/L Normal 3.7-5.1 [facility] Comment on above: Order Comment: Speci men Type: BLOOD SPECIMENOrdering Facility: [facility] Address: [address] [place] [address] Performed By: #### 2 4321-2 ####LYN LABORATORYCLIA [id number] [address] Sodium [Moles/Vol] 133 mmol/L Low 136-144 [facility] Comment on above: Order Comment: Madelinei men Type: BLOOD SPECIMENOrdering Facility: [facility] Address: [address] [place] [address] Performed By: #### 2 4321-2 ####LYN LABORATORYCLIA [id number] [address] Urea nitrogen [Mass/Vol] 25 mg/dL High 9-24 [facility] Comment on above: Order Comment: Madelinei regina Type: BLOOD SPECIMENOrdering Facility: [facility] Address: [address] [place] [address] Performed By: #### 2 4321-2 ####LYN LABORATORYCLIA [id number] [address] OF [facility] CASE MANAGEMon 01-14-2023 CASE MANAGEM Normal [facility] CASE MANAGEM Normal [facility] CBC W Auto Differential pane l (Bld)on 01-14-2023 Basophils (Bld) [#/Vol] 0.04 10*3/uL Normal <0.11 [facility] Comment on above: Order Comment: Speci men Type: BLOOD SPECIMENOrdering Facility: [facility] Address: [address] [place] [address] Performed By: #### 5 7021-8 ####HUME LABORATORYCLIA [id number] [place] [address] [place] Basophils/100 WBC (Bld) 0.3 % Normal [facility] Comment on above: Order Comment: Speci men Type: BLOOD SPECIMENOrdering Facility: [facility] Address: [address] [place] [address] Performed By: #### 5 7021-8 ####LYN LABORATORYCLIA [id number] [address] [place] Differential cell count method Nom (Bld) Auto Normal [facility] Comment on above: Order Comment: Speci men Type: BLOOD SPECIMENOrdering Facility: [facility] Address: [address] [place] [address] Performed By: #### 5 7021-8 ####LYN LABORATORYCLIA [id number] [place] [address] [place] Eosinophils (Bld) [#/Vol] 0.17 10*3/uL Normal <0.46 [facility] Comment on above: Order Comment: Speci men Type: BLOOD SPECIMENOrdering Facility: [facility] Address: [address] [place] [address] Performed By: #### 5 7021-8 ####LYN LABORATORYCLIA [id number] [address] Eosinophils/100 WBC (Bld) 1.4 % Normal [facility] Comment on above: Order Comment: Speci men Type: BLOOD SPECIMENOrdering Facility: [facility] Address: [address] [place] [address] Performed By: #### 5 7021-8 ####LYN LABORATORYCLIA [id number] [place] [address] [place] Erythrocyte distribution width (RBC) [Ratio] 14.8 % Normal 11.5-15.0 [facility] Comment on above: Order Comment: Speci men Type: BLOOD SPECIMENOrdering Facility: [facility] Address: [address] [place] [address] Performed By: #### 5 7021-8 ####LYN LABORATORYCLIA [id number] [place] [address] [place] Hematocrit (Bld) [Volume fraction] 34.2 % Low 39.0-51.0 [facility] Comment on above: Order Comment: Speci men Type: BLOOD SPECIMENOrdering Facility: [facility] Address: [address] [place] [address] Performed By: #### 5 7021-8 ####LYN LABORATORYCLIA [id number] [place] [address] [place] Hemoglobin (Bld) [Mass/Vol] 11.0 g/dL Low 13.0-17.0 [facility] Comment on above: Order Comment: Speci men Type: BLOOD SPECIMENOrdering Facility: [facility] Address: [address] [place] [address] Performed By: #### 5 7021-8 ####LYN LABORATORYCLIA [id number] [place] [address] [place] Immature granulocytes (Bld) [#/Vol] 0.07 10*3/uL Normal <0.10 [facility] Comment on above: Order Comment: Speci men Type: BLOOD SPECIMENOrdering Facility: [facility] Address: [address] [place] [address] Performed By: #### 5 7021-8 ####LYN LABORATORYCLIA [id number] [address] [place] Immature granulocytes/100 WBC (Bld) 0.6 % Normal [facility] Comment on above: Order Comment: Speci men Type: BLOOD SPECIMENOrdering Facility: [facility] Address: [address] [place] [address] Performed By: #### 5 7021-8 ####LYN LABORATORYCLIA [id number] [place] [address] [place] Lymphocytes (Bld) [#/Vol] 1.56 10*3/uL Normal 1.00-4.00 [facility] Comment on above: Order Comment: Speci men Type: BLOOD SPECIMENOrdering Facility: [facility] Address: [address] [place] [address] Performed By: #### 5 7021-8 ####LYN LABORATORYCLIA [id number] [place] [address] [place] Lymphocytes/100 WBC (Bld) 13.1 % Normal [facility] Comment on above: Order Comment: Speci men Type: BLOOD SPECIMENOrdering Facility: [facility] Address: [address] [place] [address] Performed By: #### 5 7021-8 ####LYN LABORATORYCLIA [id number] [place] [address] [place] MCH (RBC) [Entitic mass] 29.5 pg Normal 26.0-34.0 [facility] Comment on above: Order Comment: Speci men Type: BLOOD SPECIMENOrdering Facility: [facility] Address: [address] [place] [address] Performed By: #### 5 7021-8 ####LYN LABORATORYCLIA [id number] [place] [address] [place] MCHC (RBC) [Mass/Vol] 32.2 g/dL Normal 30.5-36.0 [facility] Comment on above: Order Comment: Speci men Type: BLOOD SPECIMENOrdering Facility: [facility] Address: [address] [place] [address] Performed By: #### 5 7021-8 ####LYN LABORATORYCLIA [id number] [address] [place] MCV (RBC) [Entitic vol] 91.7 fL Normal 80.0-100.0 [facility] Comment on above: Order Comment: Speci men Type: BLOOD SPECIMENOrdering Facility: [facility] Address: [address] [place] [address] Performed By: #### 5 7021-8 ####LYN LABORATORYCLIA [id number] [place] [address] [place] Monocytes (Bld) [#/Vol] 1.05 10*3/uL High <0.87 [facility] Comment on above: Order Comment: Speci men Type: BLOOD SPECIMENOrdering Facility: [facility] Address: [address] [place] [address] Performed By: #### 5 7021-8 ####LYN LABORATORYCLIA [id number] [place] [address] [place] Monocytes/100 WBC (Bld) 8.8 % Normal [facility] Comment on above: Order Comment: Speci men Type: BLOOD SPECIMENOrdering Facility: [facility] Address: [address] [place] [address] Performed By: #### 5 7021-8 ####LYN LABORATORYCLIA [id number] [place] [address] [place] Neutrophils (Bld) [#/Vol] 9.03 10*3/uL High 1.45-7.50 [facility] Comment on above: Order Comment: Speci men Type: BLOOD SPECIMENOrdering Facility: [facility] Address: [address] [place] [address] Performed By: #### 5 7021-8 ####LYN LABORATORYCLIA [id number] [place] [address] [place] Neutrophils/100 WBC (Bld) 75.8 % Normal [facility] Comment on above: Order Comment: Speci men Type: BLOOD SPECIMENOrdering Facility: [facility] Address: [address] [place] [address] Performed By: #### 5 7021-8 ####LYN LABORATORYCLIA [id number] [place] [address] [place] Nucleated RBC (Bld) [#/Vol] 10*3/uL Normal <0.01 [facility] Comment on above: Order Comment: Speci men Type: BLOOD SPECIMENOrdering Facility: [facility] Address: [address] [place] [address] Performed By: #### 5 7021-8 ####LYN LABORATORYCLIA [id number] [place] [address] [place] Nucleated RBC/100 WBC (Bld) [Ratio] 0.0 /100 WBC Normal [facility] Comment on above: Order Comment: Speci men Type: BLOOD SPECIMENOrdering Facility: [facility] Address: [address] [place] [address] Performed By: #### 5 7021-8 ####LYN LABORATORYCLIA [id number] [place] [address] [place] Platelet mean volume (Bld) [Entitic vol] 10.3 fL Normal 9.0-12.7 [facility] Comment on above: Order Comment: Speci men Type: BLOOD SPECIMENOrdering Facility: [facility] Address: [place] [address] Performed By: #### 5 7021-8 ####LYN LABORATORYCLIA [id number] [place] [address] [place] Platelets (Bld) [#/Vol] 351 10*3/uL Normal 150-400 [facility] Comment on above: Order Comment: Speci men Type: BLOOD SPECIMENOrdering Facility: [facility] Address: [place] [address] Performed By: #### 5 7021-8 ####HUME LABORATORYCLIA [id number] [place] [address] [place] RBC (Bld) [#/Vol] 3.73 10*6/uL Low 4.20-6.00 [facility] Comment on above: Order Comment: Speci men Type: BLOOD SPECIMENOrdering Facility: [facility] Address: [place] [address] Performed By: #### 5 7021-8 ####HUME LABORATORYCLIA [id number] [place] [address] [place] WBC (Bld) [#/Vol] 11.92 10*3/uL High 3.70-11.00 [facility] Comment on above: Order Comment: Speci men Type: BLOOD SPECIMENOrdering Facility: [facility] Address: [place] [address] Performed By: #### 5 7021-8 ####HUME LABORATORYCLIA [id number] [place] [address] [place] CNDSon 01-14-2023 CNDS [facility] THERAPY NTon 01-14-2023 THERAPY NT [facility] ALLIED HEALTHon 01-13-2023 ALLIED HEALTH [facility] CASE MANAGEMon 01-13-2023 CASE MANAGEM [facility] CBC W Auto Differential pane l (Bld)on 01-13-2023 Basophils (Bld) [#/Vol] 0.05 10*3/uL Normal <0.11 [facility] Comment on above: Order Comment: Speci men Type: BLOOD SPECIMENOrdering Facility: [facility] Address: [address] [place] [address] Performed By: #### 5 7021-8 ####LYN LABORATORYCLIA [id number] [place] [address] [place] Basophils/100 WBC (Bld) 0.3 % Normal [facility] Comment on above: Order Comment: Speci men Type: BLOOD SPECIMENOrdering Facility: [facility] Address: [address] [place] [address] Performed By: #### 5 7021-8 ####LYN LABORATORYCLIA [id number] [place] [address] [place] Differential cell count method Nom (Bld) Auto Normal [facility] Comment on above: Order Comment: Speci men Type: BLOOD SPECIMENOrdering Facility: [facility] Address: [address] [place] [address] Performed By: #### 5 7021-8 ####LYN LABORATORYCLIA [id number] [place] [address] [place] Eosinophils (Bld) [#/Vol] 0.05 10*3/uL Normal <0.46 [facility] Comment on above: Order Comment: Speci men Type: BLOOD SPECIMENOrdering Facility: [facility] Address: [address] [place] [address] Performed By: #### 5 7021-8 ####YLN LABORATORYCLIA [id number] [address] [place] Eosinophils/100 WBC (Bld) 0.3 % Normal [facility] Comment on above: Order Comment: Speci men Type: BLOOD SPECIMENOrdering Facility: [facility] Address: [address] [place] [address] Performed By: #### 5 7021-8 ####LYN LABORATORYCLIA [id number] [place] [address] [place] Erythrocyte distribution width (RBC) [Ratio] 14.6 % Normal 11.5-15.0 [facility] Comment on above: Order Comment: Speci men Type: BLOOD SPECIMENOrdering Facility: [facility] Address: [address] [place] [address] Performed By: #### 5 7021-8 ####LYN LABORATORYCLIA [id number] [place] [address] [place] Hematocrit (Bld) [Volume fraction] 38.4 % Low 39.0-51.0 [facility] Comment on above: Order Comment: Speci men Type: BLOOD SPECIMENOrdering Facility: [facility] Address: [address] [place] [address] Performed By: #### 5 7021-8 ####LYN LABORATORYCLIA [id number] [place] [address] [place] Hemoglobin (Bld) [Mass/Vol] 12.8 g/dL Low 13.0-17.0 [facility] Comment on above: Order Comment: Speci men Type: BLOOD SPECIMENOrdering Facility: [facility] Address: [address] [place] [address] Performed By: #### 5 7021-8 ####LNY LABORATORYCLIA [id number] [place] [address] [place] Immature granulocytes (Bld) [#/Vol] 0.13 10*3/uL High <0.10 [facility] Comment on above: Order Comment: Speci men Type: BLOOD SPECIMENOrdering Facility: [facility] Address: [address] [place] [address] Performed By: #### 5 7021-8 ####LYN LABORATORYCLIA [id number] [place] [address] [place] Immature granulocytes/100 WBC (Bld) 0.8 % Normal [facility] Comment on above: Order Comment: Speci men Type: BLOOD SPECIMENOrdering Facility: [facility] Address: [address] [place] [address] Performed By: #### 5 7021-8 ####LYN LABORATORYCLIA [id number] [place] [address] [place] Lymphocytes (Bld) [#/Vol] 1.22 10*3/uL Normal 1.00-4.00 [facility] Comment on above: Order Comment: Speci men Type: BLOOD SPECIMENOrdering Facility: [facility] Address: [address] [place] [address] Performed By: #### 5 7021-8 ####LYN LABORATORYCLIA [id number] [address] [facility] Lymphocytes/100 WBC (Bld) 7.6 % Normal [facility] Comment on above: Order Comment: Speci men Type: BLOOD SPECIMENOrdering Facility: [facility] Address: [address] [place] [address] Performed By: #### 5 7021-8 ####LYN LABORATORYCLIA [id number] [address] [place] MCH (RBC) [Entitic mass] 30.3 pg Normal 26.0-34.0 [facility] Comment on above: Order Comment: Speci men Type: BLOOD SPECIMENOrdering Facility: [facility] Address: [address] [place] [address] Performed By: #### 5 7021-8 ####LYN LABORATORYCLIA [id number] [address] [place] MCHC (RBC) [Mass/Vol] 33.3 g/dL Normal 30.5-36.0 [facility] Comment on above: Order Comment: Speci men Type: BLOOD SPECIMENOrdering Facility: [facility] Address: [address] [place] [address] Performed By: #### 5 7021-8 ####LYN LABORATORYCLIA [id number] [address] [place] MCV (RBC) [Entitic vol] 90.8 fL Normal 80.0-100.0 [facility] Comment on above: Order Comment: Speci men Type: BLOOD SPECIMENOrdering Facility: [facility] Address: [address] [place] [address] Performed By: #### 5 7021-8 ####LYN LABORATORYCLIA [id number] [address] Monocytes (Bld) [#/Vol] 0.96 10*3/uL High <0.87 [facility] Comment on above: Order Comment: Speci men Type: BLOOD SPECIMENOrdering Facility: [facility] Address: [address] [place] [address] Performed By: #### 5 7021-8 ####LYN LABORATORYCLIA [id number] [place] [address] [place] Monocytes/100 WBC (Bld) 6.0 % Normal [facility] Comment on above: Order Comment: Speci men Type: BLOOD SPECIMENOrdering Facility: [facility] Address: [address] [place] [address] Performed By: #### 5 7021-8 ####LYN LABORATORYCLIA [id number] [place] [address] [place] Neutrophils (Bld) [#/Vol] 13.67 10*3/uL High 1.45-7.50 [facility] Comment on above: Order Comment: Speci men Type: BLOOD SPECIMENOrdering Facility: [facility] Address: [address] [place] [address] Performed By: #### 5 7021-8 ####LYN LABORATORYCLIA [id number] [place] [address] [place] Neutrophils/100 WBC (Bld) 85.0 % Normal [facility] Comment on above: Order Comment: Speci men Type: BLOOD SPECIMENOrdering Facility: [facility] Address: [address] [place] [address] Performed By: #### 5 7021-8 ####LYN LABORATORYCLIA [id number] [place] [address] [place] Nucleated RBC (Bld) [#/Vol] 10*3/uL Normal <0.01 [facility] Comment on above: Order Comment: Speci men Type: BLOOD SPECIMENOrdering Facility: [facility] Address: [address] [place] [address] Performed By: #### 5 7021-8 ####LYN LABORATORYCLIA [id number] [place] [address] [place] Nucleated RBC/100 WBC (Bld) [Ratio] 0.0 /100 WBC Normal [facility] Comment on above: Order Comment: Speci men Type: BLOOD SPECIMENOrdering Facility: [facility] Address: [address] [address] Performed By: #### 5 7021-8 ####LYN LABORATORYCLIA [id number] [place] [address] [place] Platelet mean volume (Bld) [Entitic vol] 10.6 fL Normal 9.0-12.7 [facility] Comment on above: Order Comment: Speci men Type: BLOOD SPECIMENOrdering Facility: [facility] Address: [address] [address] Performed By: #### 5 7021-8 ####LYN LABORATORYCLIA [id number] [place] [address] [place] Platelets (Bld) [#/Vol] 345 10*3/uL Normal 150-400 [facility] Comment on above: Order Comment: Speci men Type: BLOOD SPECIMENOrdering Facility: [facility] Address: [address] [place] [address] Performed By: #### 5 7021-8 ####HUME LABORATORYCLIA [id number] [place] [address] [place] RBC (Bld) [#/Vol] 4.23 10*6/uL Normal 4.20-6.00 [facility] Comment on above: Order Comment: Speci men Type: BLOOD SPECIMENOrdering Facility: [facility] Address: [address] [place] [address] Performed By: #### 5 7021-8 ####LYN LABORATORYCLIA [id number] [place] [address] [place] WBC (Bld) [#/Vol] 16.08 10*3/uL High 3.70-11.00 [facility] Comment on above: Order Comment: Speci men Type: BLOOD SPECIMENOrdering Facility: [facility] Address: [address] [place] [address] Performed By: #### 5 7021-8 ####LYN LABORATORYCLIA [id number] [place] [address] [place] CHEST WO IVCONon 01-14-20 CT CHEST WO IVCON Normal [facility] Magnesium SerPl-mCncon 01-13 Magnesium [Mass/Vol] 3.1 mg/dL High 1.7-2.3 [facility] Comment on above: Order Comment: Speci men Type: BLOOD SPECIMENOrdering Facility: [facility] Address: [address] [place] [address] Performed By: #### 2 4362-6, ####HUME LABORATORYCLIA [id number] [place] [address] [place] NUTRITIONon 01-13-2023 NUTRITION Normal [facility] Renal function 2000 panelon 01-13-2023 Albumin [Mass/Vol] 2.8 g/dL Low 3.9-4.9 [facility] Comment on above: Order Comment: Speci men Type: BLOOD SPECIMENOrdering Facility: [facility] Address: [address] [place] [address] Performed By: #### 2 4362-6, ####HUME LABORATORYCLIA [id number] [place] [address] [place] Anion gap [Moles/Vol] 6 mmol/L Low 9-18 [facility] Comment on above: Order Comment: Speci men Type: BLOOD SPECIMENOrdering Facility: [facility] Address: [address] [place] [address] Performed By: #### 2 4362-6, ####HUME LABORATORYCLIA [id number] [place] [address] [place] Calcium [Mass/Vol] 8.4 mg/dL Low 8.5-10.2 [facility] Comment on above: Order Comment: Speci men Type: BLOOD SPECIMENOrdering Facility: [facility] Address: [address] [place] [address] Performed By: #### 2 4362-6, ####LYN LABORATORYCLIA [id number] [place] [address] [place] Chloride [Moles/Vol] 95 mmol/L Low 97-105 [facility] Comment on above: Order Comment: Speci men Type: BLOOD SPECIMENOrdering Facility: [facility] Address: [address] [place] [address] Performed By: #### 2 4362-6, ####LYN LABORATORYCLIA [id number] [place] [address] [place] CO2 [Moles/Vol] 32 mmol/L High 22-30 [facility] Comment on above: Order Comment: Speci men Type: BLOOD SPECIMENOrdering Facility: [facility] Address: [address] [place] [address] Performed By: #### 2 43626, ####LYN LABORATORYCLIA [id number] [place] [address] [place] Creatinine [Mass/Vol] 0.88 mg/dL Normal 0.73-1.22 [facility] Comment on above: Order Comment: Speci men Type: BLOOD SPECIMENOrdering Facility: [facility] Address: [address] [place] [address] Performed By: #### 2 43603-25, ####LYN LABORATORYCLIA [id number] [address] [place] Creatinine and Glomerular filtration rate.predicted panel (S/P/Bld) 90 mL/min/1.73m??? Normal >=60 [facility] Comment on above: Order Comment: Speci men Type: BLOOD SPECIMENOrdering Facility: [facility] Address: [address] [place] [address] Result Comment: Daiana mated Glomerular Filtration Rate [...] Performed By: #### 2 4362-6, ####LYN LABORATORYCLIA [id number] [address] [place] Glucose [Mass/Vol] 101 mg/dL High 74-99 [facility] Comment on above: Order Comment: Speci men Type: BLOOD SPECIMENOrdering Facility: [facility] Address: [address] [place] [address] Result Comment: The [place] [employer] (ADA) provides guidance for cutoff [...] Standards of Medical Care in Diabetes 2016, [place] [employer]. Diabetes Care. 2016.39(Suppl 1). Performed By: #### 2 4362-6, ####LYN LABORATORYCLIA [id number] [place] [address] [place] Phosphate [Mass/Vol] 2.3 mg/dL Low 2.7-4.8 [facility] Comment on above: Order Comment: Greer regina Type: BLOOD SPECIMENOrdering Facility: [facility] Address: [address] [place] [address] Performed By: #### 2 4362-6, ####LYN LABORATORYCLIA [id number] [place] [address] [place] Potassium [Moles/Vol] 4.9 mmol/L Normal 3.7-5.1 [facility] Comment on above: Order Comment: Greer men Type: BLOOD SPECIMENOrdering Facility: [facility] Address: [address] [place] [address] Performed By: #### 2 4362-6, ####LYN LABORATORYCLIA [id number] [place] [address] [place] Sodium [Moles/Vol] 133 mmol/L Low 136-144 [facility] Comment on above: Order Comment: Greer regina Type: BLOOD SPECIMENOrdering Facility: [facility] Address: [address] [place] [address] Performed By: #### 2 4362-6, ####LYN LABORATORYCLIA [id number] [place] [address] [place] Urea nitrogen [Mass/Vol] 29 mg/dL High 11-10 [facility] Comment on above: Order Comment: Speci men Type: BLOOD SPECIMENOrdering Facility: [facility] Address: [address] [place] [address] Performed By: #### 2 4362-6, ####LYN LABORATORYCLIA [id number] [place] [address] [place] THERAPY NTon 01-13-2023 THERAPY NT Normal [facility] ALLIED HEALTHon 01-12-2023 ALLIED HEALTH Normal [facility] Bacteria Bld Culton 01-13-20 23 Bacteria identified Cx Nom (Bld) CULTURE, BLOOD: No growth 5 days Normal [facility] Comment on above: Performed By: #### 6 00-7 ####[facility] LABCLIA [id number] [address] [place] Bacteria identified Cx Nom (Bld) CULTURE, BLOOD: No growth 5 days Normal [facility] Comment on above: Performed By: #### 6 00-7 ####[facility] LABCLIA [id number] [place] [address] [place] CBC panel Auto (Bld)on 01-12 Erythrocyte distribution width (RBC) [Ratio] 14.3 % Normal 11.5-15.0 [facility] Comment on above: Order Comment: Speci men Type: BLOOD SPECIMENOrdering Facility: [facility] Address: [address] [place] [address] Performed By: #### 5 8410-2 ####LYN LABORATORYCLIA [id number] [place] [address] [place] Hematocrit (Bld) [Volume fraction] 36.8 % Low 39.0-51.0 [facility] Comment on above: Order Comment: Speci men Type: BLOOD SPECIMENOrdering Facility: [facility] Address: [address] [place] [address] Performed By: #### 5 8410-2 ####LYN LABORATORYCLIA [id number] [address] Hemoglobin (Bld) [Mass/Vol] 12.3 g/dL Low 13.0-17.0 [facility] Comment on above: Order Comment: Speci men Type: BLOOD SPECIMENOrdering Facility: [facility] Address: [address] [place] [address] Performed By: #### 5 8410-2 ####LYN LABORATORYCLIA [id number] [address] MCH (RBC) [Entitic mass] 29.9 pg Normal 26.0-34.0 [facility] Comment on above: Order Comment: Speci men Type: BLOOD SPECIMENOrdering Facility: [facility] Address: [address] [place] [address] Performed By: #### 5 8410-2 ####LYN LABORATORYCLIA [id number] [address] MCHC (RBC) [Mass/Vol] 33.4 g/dL Normal 30.5-36.0 [facility] Comment on above: Order Comment: Speci men Type: BLOOD SPECIMENOrdering Facility: [facility] Address: [address] [place] [address] Performed By: #### 5 8410-2 ####LYN LABORATORYCLIA [id number] [address] MCV (RBC) [Entitic vol] 89.3 fL Normal 80.0-100.0 [facility] Comment on above: Order Comment: Speci men Type: BLOOD SPECIMENOrdering Facility: [facility] Address: [address] [place] [address] Performed By: #### 5 8410-2 ####LYN LABORATORYCLIA [id number] [address] Nucleated RBC (Bld) [#/Vol] 10*3/uL Normal <0.01 [facility] Comment on above: Order Comment: Speci men Type: BLOOD SPECIMENOrdering Facility: [facility] Address: [address] [place], [place] [address] [id number] Performed By: #### 5 8410-2 ####LYN LABORATORYCLIA [id number] [place] [address] [place] Platelet mean volume (Bld) [Entitic vol] 10.1 fL Normal 9.0-12.7 [facility] Comment on above: Order Comment: Speci men Type: BLOOD SPECIMENOrdering Facility: [facility] Address: [place] [address] Performed By: #### 5 8410-2 ####LYN LABORATORYCLIA [id number] [place] [address] [place] Platelets (Bld) [#/Vol] 327 10*3/uL Normal 150-400 [facility] Comment on above: Order Comment: Speci men Type: BLOOD SPECIMENOrdering Facility: [facility] Address: [place] [address] Performed By: #### 5 8410-2 ####HUME LABORATORYCLIA [id number] [place] [address] [place] RBC (Bld) [#/Vol] 4.12 10*6/uL Low 4.20-6.00 [facility] Comment on above: Order Comment: Speci men Type: BLOOD SPECIMENOrdering Facility: [facility] Address: [place] [address] Performed By: #### 5 8410-2 ####HUME LABORATORYCLIA [id number] [place] [id number] [place] WBC (Bld) [#/Vol] 13.53 10*3/uL High 3.70-11.00 [facility] Comment on above: Order Comment: Speci men Type: BLOOD SPECIMENOrdering Facility: [facility] Address: [place] [address] Performed By: #### 5 8410-2 ####LYN LABORATORYCLIA [id number] [place] [address] [place] Magnesium [facility] Campusalex 01-12 Magnesium [Mass/Vol] 2.5 mg/dL High 1.7-2.3 [facility] Comment on above: Order Comment: Speci men Type: BLOOD SPECIMENOrdering Facility: [facility] Address: [address] [place] [address] Performed By: #### 1 9123-9, 45627-7, 3084-1, 56899-4 ####HUME LABORATORYCLIA [id number] [place] [address] [place] NURSING PROGon 01-12-2023 NURSING PROG Normal [facility] Osmolality Uron 01-12-2023 Osmolality (U) [Osmolality] 288 mosm/kg Normal 50-1200 [facility] Comment on above: Order Comment: Speci men Type: URINE SPECIMENOrdering Facility: [facility] Address: [address] [place] [address] Performed By: #### 2 695-5 ####[facility] LABCLIA [id number] [facility] [id number] [place] Procalcitonin SerPl-mCncon 1 03-14-2022 Procalcitonin [Mass/Vol] 0.12 ng/mL High <0.09 [facility] Comment on above: Order Comment: Speci men Type: BLOOD SPECIMENOrdering Facility: [facility] Address: [address] [place] [address] Result Comment: For a guided interpretation of test results, please visit the Change in Procalcitonin Calculator, [email or web address]. Performed By: #### 1 9123-9, 93209-4, 3084-, 01783-6 ####HUME LABORATORYCLIA [id number] [place] [address] [place] Renal function 2000 panelon 01-12-2023 Albumin [Mass/Vol] 2.9 g/dL Low 3.9-4.9 [facility] Comment on above: Order Comment: Speci men Type: BLOOD SPECIMENOrdering Facility: [facility] Address: [address] [place] [address] Performed By: #### 1 9123-9, 57938-0, 3084-1, 38052-3 ####LYN LABORATORYCLIA [id number] [place] [address] [place] Anion gap [Moles/Vol] 7 mmol/L Low 9-18 [facility] Comment on above: Order Comment: Speci men Type: BLOOD SPECIMENOrdering Facility: [facility] Address: [address] [place] [address] Performed By: #### 1 9123-9, 80886-1, 3084-1, 15595-6 ####LYN LABORATORYCLIA [id number] [place] [address] [place] Calcium [Mass/Vol] 8.6 mg/dL Normal 8.5-10.2 [facility] Comment on above: Order Comment: Speci men Type: BLOOD SPECIMENOrdering Facility: [facility] Address: [address] [place] [address] Performed By: #### 1 9123-9, 51521-9, 3084-1, 29118-5 ####HUME LABORATORYCLIA [id number] [place] [address] [place] Chloride [Moles/Vol] 94 mmol/L Low 97-105 [facility] Comment on above: Order Comment: Speci men Type: BLOOD SPECIMENOrdering Facility: [facility] Address: [address] [place] [address] Performed By: #### 1 9123-9, 59839-2, 3084-1, 87624-5 ####LYN LABORATORYCLIA [id number] [place] [address] [place] CO2 [Moles/Vol] 30 mmol/L Normal 22-30 [facility] Comment on above: Order Comment: Speci men Type: BLOOD SPECIMENOrdering Facility: [facility] Address: [address] [place] [address] Performed By: #### 1 9123-9, 84854-9, 3084-1, 77120-4 ####LYN LABORATORYCLIA [id number] [place] [address] [place] Creatinine [Mass/Vol] 0.86 mg/dL Normal 0.73-1.22 [facility] Comment on above: Order Comment: Speci men Type: BLOOD SPECIMENOrdering Facility: [facility] Address: [address] [place] [address] Performed By: #### 1 9123-9, 43225-9, 3084-1, 47944-9 ####HUME LABORATORYCLIA [id number] [address] [place] Creatinine and Glomerular filtration rate.predicted panel (S/P/Bld) 91 mL/min/1.73m??? Normal >=60 [facility] Comment on above: Order Comment: Greer regina Type: BLOOD SPECIMENOrdering Facility: [facility] Address: [address] [place] [address] Result Comment: Daiana mated Glomerular Filtration Rate [...] actual GFR. Performed By: #### 1 9123-9, 43904-2, 3084-1, 87993-6 ####HUME LABORATORYCLIA [id number] [place] [id number] [place] Glucose [Mass/Vol] 144 mg/dL High 74-99 [facility] Comment on above: Order Comment: Greer tapia Type: BLOOD SPECIMENOrdering Facility: [facility] Address: [address] [place] [address] Result Comment: The [place] Diabetes [employer] (ADA) provides guidance for cutoff [...] Standards of Medical Care in Diabetes 2016, [place] [employer]. Diabetes Care. 2016.39(Suppl 1). Performed By: #### 1 9123-9, 95320-9, 3084-1, 53342-8 ####LYN LABORATORYCLIA [id number] [place] [address] [place] Phosphate [Mass/Vol] 2.9 mg/dL Normal 2.7-4.8 [facility] Comment on above: Order Comment: Speci men Type: BLOOD SPECIMENOrdering Facility: [facility] Address: [address] [place] [address] Performed By: #### 1 9123-9, 21108-2, 3084-1, 18482-4 ####HUME LABORATORYCLIA [id number] [place] [address] [place] Potassium [Moles/Vol] 4.4 mmol/L Normal 3.7-5.1 [facility] Comment on above: Order Comment: Speci men Type: BLOOD SPECIMENOrdering Facility: [facility] Address: [address] [place] [address] Performed By: #### 1 9123-9, 21651-8, 3084-1, 13828-2 ####HUME LABORATORYCLIA [id number] [place] [address] [place] Sodium [Moles/Vol] 131 mmol/L Low 136-144 [facility] Comment on above: Order Comment: Speci men Type: BLOOD SPECIMENOrdering Facility: [facility] Address: [address] [place] [address] Performed By: #### 1 9123-9, 96098-9, 3084-1, 92680-1 ####HUME LABORATORYCLIA [id number] [place] [address] [place] Urea nitrogen [Mass/Vol] 27 mg/dL High 9-24 [facility] Comment on above: Order Comment: Speci men Type: BLOOD SPECIMENOrdering Facility: [facility] Address: [address] [place] [address] Performed By: #### 1 9123-9, 72828-3, 3084-1, 78184-8 ####LYN LABORATORYCLIA [id number] [address] [place] Sodium ?Tm Ur-sCncon 023 Sodium Unsp time (U) [Moles/Vol] 24 mmol/L Normal 14-216 [facility] Comment on above: Order Comment: Speci men Type: URINE SPECIMENOrdering Facility: [facility] Address: [address] [place] [address] Performed By: #### 3 5678-2 ####[facility] LABCLIA [id number] [facility] [place]NOTE 2]DES [id number] [place] URINALYSIS, REFLEX MICROSCOP ICon 01-12-2023 Bilirubin Ql (U) Negative Normal Negative [facility] Comment on above: Order Comment: Speci men Type: URINE SPECIMENOrdering Facility: [facility] Address: [address] [place] [address] Performed By: #### L [id number] ####[facility] LABORATORYCLIA [id number] Clarity (Unsp spec) Clear Normal Clear [facility] Comment on above: Order Comment: Speci men Type: URINE SPECIMENOrdering Facility: [facility] Address: [address] [place] [address] Performed By: #### L [id number] ####[facility] LABORATORYCLIA [id number] [address] Color (U) Yellow Normal Yellow [facility] Comment on above: Order Comment: Speci men Type: URINE SPECIMENOrdering Facility: [facility] Address: [address] [place] [address] Performed By: #### L [id number] ####[facility] LABORATORYCLIA [id number] [place] Glucose Test strip (U) [Mass/Vol] Negative Normal Negative [facility] [facility] Comment on above: Order Comment: Speci men Type: URINE SPECIMENOrdering Facility: [facility] Address: [address] [place] [address] Performed By: #### L [id number] ####LYN LABORATORYCLIA [id number] [place] [address] [place] Hemoglobin Ql (U) Negative Normal Negative [facility] Comment on above: Order Comment: Speci men Type: URINE SPECIMENOrdering Facility: [facility] Address: [address] [place] [address] Performed By: #### L [id number] ####LYN LABORATORYCLIA [id number] [place] [address] [place] Ketones Ql (U) Negative Normal Negative [facility] Comment on above: Order Comment: Speci men Type: URINE SPECIMENOrdering Facility: [facility] Address: [address] [place] [address] Performed By: #### L [id number] ####LYN LABORATORYCLIA [id number] [address] [place] Leukocyte esterase Test strip Ql (U) Negative Normal Negative [facility] Comment on above: Order Comment: Speci men Type: URINE SPECIMENOrdering Facility: [facility] Address: [address] [place] [address] Performed By: #### L [id number] ####LYN LABORATORYCLIA [id number] [place] [address] [place] Nitrite Ql (U) Negative Normal Negative [facility] Comment on above: Order Comment: Speci men Type: URINE SPECIMENOrdering Facility: [facility] Address: [address] [place] [address] Performed By: #### L [id number] ####LYN LABORATORYCLIA [id number] [place] [address] [place] pH (U) 7.5 [pH] Normal 5.0-8.0 [facility] Comment on above: Order Comment: Speci men Type: URINE SPECIMENOrdering Facility: [facility] Address: [address] [place] [address] Performed By: #### L [id number] ####LYN LABORATORYCLIA [id number] [address] [place] Protein (U) [Mass/Vol] Negative Normal Negative [facility] Comment on above: Order Comment: Speci men Type: URINE SPECIMENOrdering Facility: [facility] Address: [address] [place] [address] Performed By: #### L [id number] ####HUME LABORATORYCLIA [id number] [place] [address] [place] Specific gravity (U) [Rel density] 1.010 Normal 1.005-1.030 [facility] Comment on above: Order Comment: Speci men Type: URINE SPECIMENOrdering Facility: [facility] Address: [address] [place] [address] Performed By: #### L [id number] ####HUME LABORATORYCLIA [id number] [place] [address] [place] Urobilinogen Ql (U) 0.2 EU/dL Normal 0.2-1.0 EU/dL [facility] Comment on above: Order Comment: Speci men Type: URINE SPECIMENOrdering Facility: [facility] Address: [address] [place] [address] Performed By: #### L [id number] ####HUME LABORATORYCLIA [id number] [address] [place] [facility] Urate [Mass/Vol] 3.1 mg/dL Low 4.0-8.1 [facility] Comment on above: Order Comment: Speci men Type: BLOOD SPECIMENOrdering Facility: [facility] Address: [address] [place] [address] Performed By: #### 1 9123-9, 77234-8, 3084-1, 24583-8 ####HUME LABORATORYCLIA [id number] [place] [address] [place] XR CHEST 2V FRONTAL/LATon XR CHEST 2V FRONTAL/LAT Normal M [facility] ALLIED HEALTHon 01-11-2023 ALLIED HEALTH Normal [facility] Basic metabolic 2000 panelon 01-11-2023 Anion gap [Moles/Vol] 4 mmol/L Low 9-18 [facility] Comment on above: Order Comment: Speci men Type: BLOOD SPECIMENOrdering Facility: [facility] Address: [address] [place] [address] Performed By: #### 2 4321-2, , 2776-02 ####LYN LABORATORYCLIA [id number] [place] [address] [place] Calcium [Mass/Vol] 8.3 mg/dL Low 8.5-10.2 [facility] Comment on above: Order Comment: Speci men Type: BLOOD SPECIMENOrdering Facility: [facility] Address: [address] [place] [address] Performed By: #### 2 4321-2, , 2776-02 ####LYN LABORATORYCLIA [id number] [place] [address] [place] Chloride [Moles/Vol] 95 mmol/L Low 97-105 [facility] Comment on above: Order Comment: Speci men Type: BLOOD SPECIMENOrdering Facility: [facility] Address: [address] [place] [address] Performed By: #### 2 1-2, , 2776-02 ####LYN LABORATORYCLIA [id number] [place] [address] [place] CO2 [Moles/Vol] 32 mmol/L High 22-30 [facility] Comment on above: Order Comment: Speci men Type: BLOOD SPECIMENOrdering Facility: [facility] Address: [address] [place] [address] Performed By: #### 2 4321-2, , 2776-02 ####LYN LABORATORYCLIA [id number] [place] [address] [place] Creatinine [Mass/Vol] 0.92 mg/dL Normal 0.73-1.22 [facility] Comment on above: Order Comment: Speci men Type: BLOOD SPECIMENOrdering Facility: [facility] Address: [address] [place] [address] Performed By: #### 2 4321-2, , 2776-02 ####LYN LABORATORYCLIA [id number] [address] Creatinine and Glomerular filtration rate.predicted panel (S/P/Bld) 87 mL/min/1.73m??? Normal >=60 [facility] Comment on above: Order Comment: Greer tapia Type: BLOOD SPECIMENOrdering Facility: [facility] Address: [address] [place] [address] Result Comment: Daiana mated Glomerular Filtration Rate [...] Performed By: #### 2 4321-2, , 2776-02 ####HUME LABORATORYCLIA [id number] [place] [address] [place] Glucose [Mass/Vol] 89 mg/dL Normal 74-99 [facility] Comment on above: Order Comment: Greer tapia Type: BLOOD SPECIMENOrdering Facility: [facility] Address: [address] [place] [address] Result Comment: The [place] Diabetes Association (ADA) provides guidance for cutoff [...] Standards of Medical Care in Diabetes 2016, [place] [employer]. Diabetes Care. 2016.39(Suppl 1). Performed By: #### 2 4321-2, , 2776-02 ####HUME LABORATORYCLIA [id number] [place] [address] [place] Potassium [Moles/Vol] 4.1 mmol/L Normal 3.7-5.1 [facility] Comment on above: Order Comment: [facility] Type: BLOOD SPECIMENOrdering Facility: [facility] Address: [address] [place] [address] Performed By: #### 2 4321-2, , 2776-02 ####LYN LABORATORYCLIA [id number] [address] [facility] Sodium [Moles/Vol] 131 mmol/L Low 136-144 [facility] Comment on above: Order Comment: Speci men Type: BLOOD SPECIMENOrdering Facility: [facility] Address: [address] [place] [address] Performed By: #### 2 4321-2, , 2776-02 ####LYN LABORATORYCLIA [id number] [address] [place] Urea nitrogen [Mass/Vol] 20 mg/dL Normal 9-24 [facility] Comment on above: Order Comment: Speci men Type: BLOOD SPECIMENOrdering Facility: [facility] Address: [address] [place] [address] Performed By: #### 2 4321-2, , 2776-02 ####LYN LABORATORYCLIA [id number] [address] [facility] CBC panel Auto (Bld)on 01-11 Erythrocyte distribution width (RBC) [Ratio] 14.2 % Normal 11.5-15.0 [facility] Comment on above: Order Comment: Speci men Type: BLOOD SPECIMENOrdering Facility: [facility] Address: [address] [place] [address] Performed By: #### 5 8410-2 ####LYN LABORATORYCLIA [id number] [address] [place] Hematocrit (Bld) [Volume fraction] 34.9 % Low 39.0-51.0 [facility] Comment on above: Order Comment: Speci men Type: BLOOD SPECIMENOrdering Facility: [facility] Address: [address] [place] [address] Performed By: #### 5 8410-2 ####LYN LABORATORYCLIA [id number] [address] Hemoglobin (Bld) [Mass/Vol] 11.9 g/dL Low 13.0-17.0 [facility] Comment on above: Order Comment: Speci men Type: BLOOD SPECIMENOrdering Facility: [facility] Address: [address] [place] [address] Performed By: #### 5 8410-2 ####LYN LABORATORYCLIA [id number] [address] MCH (RBC) [Entitic mass] 30.4 pg Normal 26.0-34.0 [facility] Comment on above: Order Comment: Speci men Type: BLOOD SPECIMENOrdering Facility: [facility] Address: [address] [place] [address] Performed By: #### 5 8410-2 ####LYN LABORATORYCLIA [id number] [address] MCHC (RBC) [Mass/Vol] 34.1 g/dL Normal 30.5-36.0 [facility] Comment on above: Order Comment: Speci men Type: BLOOD SPECIMENOrdering Facility: [facility] Address: [address] [place] [address] Performed By: #### 5 8410-2 ####LYN LABORATORYCLIA [id number] [address] MCV (RBC) [Entitic vol] 89.3 fL Normal 80.0-100.0 [facility] Comment on above: Order Comment: Speci men Type: BLOOD SPECIMENOrdering Facility: [facility] Address: [address] [place] [address] Performed By: #### 5 8410-2 ####LYN LABORATORYCLIA [id number] [address] Nucleated RBC (Bld) [#/Vol] 10*3/uL Normal <0.01 [facility] Comment on above: Order Comment: Speci men Type: BLOOD SPECIMENOrdering Facility: [facility] Address: [address] [place] [address] Performed By: #### 5 8410-2 ####LYN LABORATORYCLIA [id number] [address] Platelet mean volume (Bld) [Entitic vol] 10.1 fL Normal 9.0-12.7 [facility] Comment on above: Order Comment: Speci men Type: BLOOD SPECIMENOrdering Facility: [facility] Address: [address] [facility] [place] [address] Performed By: #### 5 8410-2 ####HUME LABORATORYCLIA [id number] [address] [place] Platelets (Bld) [#/Vol] 292 10*3/uL Normal 150-400 [facility] Comment on above: Order Comment: Speci men Type: BLOOD SPECIMENOrdering Facility: [facility] Address: [address] [place] [address] Performed By: #### 5 8410-2 ####HUME LABORATORYCLIA [id number] [place] [address] [place] RBC (Bld) [#/Vol] 3.91 10*6/uL Low 4.20-6.00 [facility] Comment on above: Order Comment: Speci men Type: BLOOD SPECIMENOrdering Facility: [facility] Address: [place] [address] Performed By: #### 5 8410-2 ####HUME LABORATORYCLIA [id number] [place] [address] [place] WBC (Bld) [#/Vol] 12.42 10*3/uL High 3.70-11.00 [facility] Comment on above: Order Comment: Speci men Type: BLOOD SPECIMENOrdering Facility: [facility] Address: [place] [address] Performed By: #### 5 8410-2 ####HUME LABORATORYCLIA [id number] [place] [address] [place] CT ABD/PEL WO IVCONon 2022 CT ABD/PEL WO IVCON Invalid Interpretation Code [facility] Magnesium SerPl-mCncon 01-11 Magnesium [Mass/Vol] 1.8 mg/dL Normal 1.7-2.3 [facility] Comment on above: Order Comment: Speci men Type: BLOOD SPECIMENOrdering Facility: [facility] Address: [address] [place] [address] Performed By: #### 2 4321-2, , 277- ####HUME LABORATORYCLIA [id number] [place] [address] [place] Phosphate SerPl-mCncon 01-11 Phosphate [Mass/Vol] 2.9 mg/dL Normal 2.7-4.8 [facility] Comment on above: Order Comment: Speci men Type: BLOOD SPECIMENOrdering Facility: [facility] Address: [address] [place] [address] Performed By: #### 2 4321-2, , 2776-02 ####LYN LABORATORYCLIA [id number] [place] [address] [place] XR ABD 2V SUPINE W UPR/DECUB /CTLon 01-11-2023 XR ABD 2V SUPINE W UPR/DECUB/CTL Normal [facility] Basic metabolic 2000 panelon 01-10-2023 Anion gap [Moles/Vol] 6 mmol/L Low 9-18 [facility] Comment on above: Order Comment: Speci men Type: BLOOD SPECIMENOrdering Facility: [facility] Address: [place] [address] Performed By: #### 2 4321-2, ####LYN LABORATORYCLIA [id number] [place] [address] [place] Calcium [Mass/Vol] 7.9 mg/dL Low 8.5-10.2 [facility] Comment on above: Order Comment: Speci men Type: BLOOD SPECIMENOrdering Facility: [facility] Address: [address] [place] [address] Performed By: #### 2 4321-2, ####LYN LABORATORYCLIA [id number] [place] [address] [place] Chloride [Moles/Vol] 96 mmol/L Low 97-105 [facility] Comment on above: Order Comment: Speci men Type: BLOOD SPECIMENOrdering Facility: [facility] Address: [place] [address] Performed By: #### 2 4321-2, ####LYN LABORATORYCLIA [id number] [place] [address] [place] CO2 [Moles/Vol] 29 mmol/L Normal 22-30 [facility] Comment on above: Order Comment: Greer tapia Type: BLOOD SPECIMENOrdering Facility: [facility] Address: [address] [place] [address] Performed By: #### 2 4321-2, ####LYN LABORATORYCLIA [id number] [place] [id number] [place] Creatinine [Mass/Vol] 0.75 mg/dL Normal 0.73-1.22 [facility] Comment on above: Order Comment: Spectio men Type: BLOOD SPECIMENOrdering Facility: [facility] Address: [address] [place] [address] Performed By: #### 2 4321-2, ####LYN LABORATORYCLIA [id number] [address] Creatinine and Glomerular filtration rate.predicted panel (S/P/Bld) 95 mL/min/1.73m??? Normal >=60 [facility] Comment on above: Order Comment: Speci men Type: BLOOD SPECIMENOrdering Facility: [facility] Address: [address] [place] [address] Result Comment: Daiana mated Glomerular Filtration Rate [...] Performed By: #### 2 4321-2, ####LYN LABORATORYCLIA [id number] [place] [id number] [place] Glucose [Mass/Vol] 118 mg/dL High 74-99 [facility] Comment on above: Order Comment: Greer tapia Type: BLOOD SPECIMENOrdering Facility: [facility] Address: [address] [place] [address] Result Comment: The [place] [employer] (ADA) provides guidance for cutoff [...] Standards of Medical Care in Diabetes 2016, [place] [employer]. Diabetes Care. 2016.39(Suppl 1). Performed By: #### 2 4320-03, ####LYN LABORATORYCLIA [id number] [place] [address] [place] Potassium [Moles/Vol] 4.4 mmol/L Normal 3.7-5.1 [facility] Comment on above: Order Comment: Greer tapia Type: BLOOD SPECIMENOrdering Facility: [facility] Address: [address] [place] [address] Performed By: #### 2 4320-03, ####LYN LABORATORYCLIA [id number] [place] [address] [place] Sodium [Moles/Vol] 131 mmol/L Low 136-144 [facility] Comment on above: Order Comment: Greer tapia Type: BLOOD SPECIMENOrdering Facility: [facility] Address: [address] [place] [address] Performed By: #### 2 4320-03, ####LYN LABORATORYCLIA [id number] [place] [id number] [place] Urea nitrogen [Mass/Vol] 16 mg/dL Normal 9-24 [facility] Comment on above: Order Comment: Greer tapia Type: BLOOD SPECIMENOrdering Facility: [facility] Address: [address] [place] [address] Performed By: #### 2 4320-03, ####LYN LABORATORYCLIA [id number] [place] [address] [place] CASE MANAGEMon 01-10-2023 CASE MANAGEM Normal [facility] CASE MANAGEM Normal [facility] CBC panel Auto (Bld)on 01-10 Erythrocyte distribution width (RBC) [Ratio] 13.7 % Normal 11.5-15.0 [facility] Comment on above: Order Comment: Speci men Type: BLOOD SPECIMENOrdering Facility: [facility] Address: [address] [place] [address] Performed By: #### 5 8410-2 ####LYN LABORATORYCLIA [id number] [address] OF [facility] Hematocrit (Bld) [Volume fraction] 35.0 % Low 39.0-51.0 [facility] Comment on above: Order Comment: Speci men Type: BLOOD SPECIMENOrdering Facility: [facility] Address: [address] [place] [address] Performed By: #### 5 8410-2 ####LYN LABORATORYCLIA [id number] [address] [place] Hemoglobin (Bld) [Mass/Vol] 12.0 g/dL Low 13.0-17.0 [facility] Comment on above: Order Comment: Speci men Type: BLOOD SPECIMENOrdering Facility: [facility] Address: [address] [place] [address] Performed By: #### 5 8410-2 ####LYN LABORATORYCLIA [id number] [address] [place] MCH (RBC) [Entitic mass] 30.2 pg Normal 26.0-34.0 [facility] Comment on above: Order Comment: Speci men Type: BLOOD SPECIMENOrdering Facility: [facility] Address: [address] [place] [address] Performed By: #### 5 8410-2 ####LYN LABORATORYCLIA [id number] [address] MCHC (RBC) [Mass/Vol] 34.3 g/dL Normal 30.5-36.0 [facility] Comment on above: Order Comment: Speci men Type: BLOOD SPECIMENOrdering Facility: [facility] Address: [address] [place] [address] Performed By: #### 5 8410-2 ####LYN LABORATORYCLIA [id number] [place] [address] [place] MCV (RBC) [Entitic vol] 87.9 fL Normal 80.0-100.0 [facility] Comment on above: Order Comment: Speci men Type: BLOOD SPECIMENOrdering Facility: [facility] Address: [address] [place] [address] Performed By: #### 5 8410-2 ####LYN LABORATORYCLIA [id number] [place] [address] [place] Nucleated RBC (Bld) [#/Vol] 10*3/uL Normal <0.01 [facility] Comment on above: Order Comment: Speci men Type: BLOOD SPECIMENOrdering Facility: [facility] Address: [address] [place] [address] Performed By: #### 5 8410-2 ####LYN LABORATORYCLIA [id number] [place] [address] [place] Platelet mean volume (Bld) [Entitic vol] 10.2 fL Normal 9.0-12.7 [facility] Comment on above: Order Comment: Speci men Type: BLOOD SPECIMENOrdering Facility: [facility] Address: [address] [place] [address] Performed By: #### 5 8410-2 ####LYN LABORATORYCLIA [id number] [place] [address] [place] Platelets (Bld) [#/Vol] 291 10*3/uL Normal 150-400 [facility] Comment on above: Order Comment: Speci men Type: BLOOD SPECIMENOrdering Facility: [facility] Address: [address] [place] [address] Performed By: #### 5 8410-2 ####LYN LABORATORYCLIA [id number] [place] [address] [place] RBC (Bld) [#/Vol] 3.98 10*6/uL Low 4.20-6.00 [facility] Comment on above: Order Comment: Speci men Type: BLOOD SPECIMENOrdering Facility: [facility] Address: [address] [place] [address] [place] [address] Performed By: #### 5 8410-2 ####HUME LABORATORYCLIA [id number] [place] [address] [place] WBC (Bld) [#/Vol] 13.55 10*3/uL High 3.70-11.00 [facility] Comment on above: Order Comment: Speci men Type: BLOOD SPECIMENOrdering Facility: [facility] Address: [address] [place] [address] Performed By: #### 5 8410-2 ####HUME LABORATORYCLIA [id number] [place] [id number] [place] Magnesium SerPl-mCncon 01-10 Magnesium [Mass/Vol] 1.8 mg/dL Normal 1.7-2.3 [facility] Comment on above: Order Comment: Speci men Type: BLOOD SPECIMENOrdering Facility: [facility] Address: [address] [place] [address] Performed By: #### 2 4321-2, ####HUME LABORATORYCLIA [id number] [place] [id number] [place] NUTRITIONon 01-10-2023 NUTRITION Normal [facility] Basic metabolic 2000 panelon 01-09-2023 Anion gap [Moles/Vol] 6 mmol/L Low 9-18 [facility] Comment on above: Order Comment: Speci men Type: BLOOD SPECIMENOrdering Facility: [facility] Address: [address] [place] [id number] Performed By: #### 2 4321-2, ####HUME LABORATORYCLIA [id number] [place] [id number] [place] Calcium [Mass/Vol] 8.1 mg/dL Low 8.5-10.2 [facility] Comment on above: Order Comment: Speci men Type: BLOOD SPECIMENOrdering Facility: [facility] Address: [address] [place] [address] Performed By: #### 2 4321-2, ####HUME LABORATORYCLIA [id number] [place] [address] [place] Chloride [Moles/Vol] 96 mmol/L Low 97-105 [facility] Comment on above: Order Comment: Greer tapia Type: BLOOD SPECIMENOrdering Facility: [facility] Address: [address] [place] [address] Performed By: #### 2 4321-2, ####LYN LABORATORYCLIA [id number] [place] [address] [place] CO2 [Moles/Vol] 29 mmol/L Normal 22-30 [facility] Comment on above: Order Comment: Speci men Type: BLOOD SPECIMENOrdering Facility: [facility] Address: [address] [place] [address] Performed By: #### 2 4320-2, ####HUME LABORATORYCLIA [id number] [address] STATES OF [facility] Creatinine [Mass/Vol] 0.79 mg/dL Normal 0.73-1.22 [facility] Comment on above: Order Comment: Greer tapia Type: BLOOD SPECIMENOrdering Facility: [facility] Address: [address] [place] [address] Performed By: #### 2 4320-2, ####LYN LABORATORYCLIA [id number] [address] Creatinine and Glomerular filtration rate.predicted panel (S/P/Bld) 93 mL/min/1.73m??? Normal >=60 [facility] Comment on above: Order Comment: Greer regina Type: BLOOD SPECIMENOrdering Facility: [facility] Address: [address] [place] [address] Result Comment: Daiana mated Glomerular Filtration Rate [...] Performed By: #### 2 4321-2, ####LYN LABORATORYCLIA [id number] [place] [address] [place] Glucose [Mass/Vol] 98 mg/dL Normal 74-99 [facility] Comment on above: Order Comment: Greer tapia Type: BLOOD SPECIMENOrdering Facility: [facility] Address: [address] [place] [address] Result Comment: The [place] [employer] (ADA) provides guidance for cutoff [...] Standards of Medical Care in Diabetes 2016, [place] [employer]. Diabetes Care. 2016.39(Suppl 1). Performed By: #### 2 4320-03, ####LYN LABORATORYCLIA [id number] [place] [address] [place] Potassium [Moles/Vol] 4.1 mmol/L Normal 3.7-5.1 [facility] Comment on above: Order Comment: Greer tapia Type: BLOOD SPECIMENOrdering Facility: [facility] Address: [address] [place] [address] Performed By: #### 2 4320-03, ####LYN LABORATORYCLIA [id number] [place] [address] [place] Sodium [Moles/Vol] 131 mmol/L Low 136-144 [facility] Comment on above: Order Comment: Greer tapia Type: BLOOD SPECIMENOrdering Facility: [facility] Address: [address] [place] [address] Performed By: #### 2 4320-03, ####LYN LABORATORYCLIA [id number] [place] [address] [place] Urea nitrogen [Mass/Vol] 11 mg/dL Normal 9-24 [facility] Comment on above: Order Comment: Greer men Type: BLOOD SPECIMENOrdering Facility: [facility] Address: [address] [place] [address] Performed By: #### 2 4321-2, 88160-6 ####LYN LABORATORYCLIA [id number] [address] CBC panel Auto (Bld)on 01-09 Erythrocyte distribution width (RBC) [Ratio] 14.0 % Normal 11.5-15.0 [facility] Comment on above: Order Comment: Speci men Type: BLOOD SPECIMENOrdering Facility: [facility] Address: [address] [place] [address] Performed By: #### 5 8410-2 ####LYN LABORATORYCLIA [id number] [address] Hematocrit (Bld) [Volume fraction] 38.1 % Low 39.0-51.0 [facility] Comment on above: Order Comment: Speci men Type: BLOOD SPECIMENOrdering Facility: [facility] Address: [address] [place] [address] Performed By: #### 5 8410-2 ####LYN LABORATORYCLIA [id number] [address] Hemoglobin (Bld) [Mass/Vol] 12.6 g/dL Low 13.0-17.0 [facility] Comment on above: Order Comment: Speci men Type: BLOOD SPECIMENOrdering Facility: [facility] Address: [address] [place] [address] Performed By: #### 5 8410-2 ####LYN LABORATORYCLIA [id number] [address] MCH (RBC) [Entitic mass] 29.9 pg Normal 26.0-34.0 [facility] Comment on above: Order Comment: Speci men Type: BLOOD SPECIMENOrdering Facility: [facility] Address: [address] [place] [address] Performed By: #### 5 8410-2 ####LYN LABORATORYCLIA [id number] [address] MCHC (RBC) [Mass/Vol] 33.1 g/dL Normal 30.5-36.0 [facility] Comment on above: Order Comment: Speci men Type: BLOOD SPECIMENOrdering Facility: [facility] Address: [address] [place] [address] Performed By: #### 5 8410-2 ####LYN LABORATORYCLIA [id number] [place] [address] [place] MCV (RBC) [Entitic vol] 90.3 fL Normal 80.0-100.0 [facility] Comment on above: Order Comment: Speci men Type: BLOOD SPECIMENOrdering Facility: [facility] Address: [address] [place] [address] Performed By: #### 5 8410-2 ####LYN LABORATORYCLIA [id number] [address] [place] Nucleated RBC (Bld) [#/Vol] 10*3/uL Normal <0.01 [facility] Comment on above: Order Comment: Speci men Type: BLOOD SPECIMENOrdering Facility: [facility] Address: [address] [place] [address] Performed By: #### 5 8410-2 ####LYN LABORATORYCLIA [id number] [place] [address] [place] Platelet mean volume (Bld) [Entitic vol] 10.5 fL Normal 9.0-12.7 [facility] Comment on above: Order Comment: Speci men Type: BLOOD SPECIMENOrdering Facility: [facility] Address: [address] [place] [address] Performed By: #### 5 8410-2 ####LYN LABORATORYCLIA [id number] [place] [address] [place] Platelets (Bld) [#/Vol] 303 10*3/uL Normal 150-400 [facility] Comment on above: Order Comment: Speci men Type: BLOOD SPECIMENOrdering Facility: [facility] Address: [address] [place] [address] Performed By: #### 5 8410-2 ####LYN LABORATORYCLIA [id number] [place] [address] [place] RBC (Bld) [#/Vol] 4.22 10*6/uL Normal 4.20-6.00 [facility] Comment on above: Order Comment: Speci men Type: BLOOD SPECIMENOrdering Facility: [facility] Address: [address] [facility] [place] [address] Performed By: #### 5 8410-2 ####LYN LABORATORYCLIA [id number] [address] OF [facility] WBC (Bld) [#/Vol] 9.42 10*3/uL Normal 3.70-11.00 [facility] Comment on above: Order Comment: Speci men Type: BLOOD SPECIMENOrdering Facility: [facility] Address: [place] [address] Performed By: #### 5 8410-2 ####LYN LABORATORYCLIA [id number] [address] [place] Magnesium SerPl-mCncon 01-09 Magnesium [Mass/Vol] 1.9 mg/dL Normal 1.7-2.3 [facility] Comment on above: Order Comment: Speci men Type: BLOOD SPECIMENOrdering Facility: [facility] Address: [place] [address] Performed By: #### 2 4321-2, ####LYN LABORATORYCLIA [id number] [address] [place] Basic metabolic 2000 panelon 01-08-2023 Anion gap [Moles/Vol] 7 mmol/L Low 9-18 [facility] Comment on above: Order Comment: Speci men Type: BLOOD SPECIMENOrdering Facility: [facility] Address: [place] [address] Performed By: #### 2 4321-2, ####LYN LABORATORYCLIA [id number] [place] [address] [place] Calcium [Mass/Vol] 7.8 mg/dL Low 8.5-10.2 [facility] Comment on above: Order Comment: Speci men Type: BLOOD SPECIMENOrdering Facility: [facility] Address: [place] [address] Performed By: #### 2 4321-2, ####LYN LABORATORYCLIA [id number] [place] [address] [place] Chloride [Moles/Vol] 100 mmol/L Normal 97-105 [facility] Comment on above: Order Comment: Speci men Type: BLOOD SPECIMENOrdering Facility: [facility] Address: [address] [place] [address] Performed By: #### 2 4321-2, ####LYN LABORATORYCLIA [id number] [place] [address] [place] CO2 [Moles/Vol] 26 mmol/L Normal 22-30 [facility] Comment on above: Order Comment: Greer tapia Type: BLOOD SPECIMENOrdering Facility: [facility] Address: [address] [place] [address] Performed By: #### 2 4321-2, ####LYN LABORATORYCLIA [id number] [address] STATES OF [facility] Creatinine [Mass/Vol] 0.75 mg/dL Normal 0.73-1.22 [facility] Comment on above: Order Comment: Madelinei regina Type: BLOOD SPECIMENOrdering Facility: [facility] Address: [address] [place] [address] Performed By: #### 2 4321-2, ####LYN LABORATORYCLIA [id number] [address] Creatinine and Glomerular filtration rate.predicted panel (S/P/Bld) 95 mL/min/1.73m??? Normal >=60 [facility] Comment on above: Order Comment: Speci men Type: BLOOD SPECIMENOrdering Facility: [facility] Address: [address] [place] [address] Result Comment: Daiana mated Glomerular Filtration Rate [...] Performed By: #### 2 43202-18, ####LYN LABORATORYCLIA [id number] [place] [id number] [place] Glucose [Mass/Vol] 88 mg/dL Normal 74-99 [facility] Comment on above: Order Comment: Greer tapia Type: BLOOD SPECIMENOrdering Facility: [facility] Address: [address] [place] [address] Result Comment: The [place] [employer] (ADA) provides guidance for cutoff [...] Standards of Medical Care in Diabetes 2016, [place] [employer]. Diabetes Care. 2016.39(Suppl 1). Performed By: #### 2 4320-03, ####LYN LABORATORYCLIA [id number] [place] [address] [place] Potassium [Moles/Vol] 4.0 mmol/L Normal 3.7-5.1 [facility] Comment on above: Order Comment: Greer tapia Type: BLOOD SPECIMENOrdering Facility: [facility] Address: [address] [place] [address] Performed By: #### 2 4320-03, ####LYN LABORATORYCLIA [id number] [place] [id number] [place] Sodium [Moles/Vol] 133 mmol/L Low 136-144 [facility] Comment on above: Order Comment: Greer tapia Type: BLOOD SPECIMENOrdering Facility: [facility] Address: [address] [place] [address] Performed By: #### 2 4320-03, ####LYN LABORATORYCLIA [id number] [address] [place] Urea nitrogen [Mass/Vol] 10 mg/dL Normal 9-24 [facility] Comment on above: Order Comment: Speci men Type: BLOOD SPECIMENOrdering Facility: [facility] Address: [address] [place] [address] Performed By: #### 2 4321-2, 74703-1 ####HUME LABORATORYCLIA [id number] [address] [place] CASE MANAGEMon 01-08-2023 CASE MANAGEM Normal [facility] CBC panel Auto (Bld)on 01-08 Erythrocyte distribution width (RBC) [Ratio] 13.7 % Normal 11.5-15.0 [facility] Comment on above: Order Comment: Speci men Type: BLOOD SPECIMENOrdering Facility: [facility] Address: [address] [place] [address] Performed By: #### 5 8410-2 ####LYN LABORATORYCLIA [id number] [address] [place] Hematocrit (Bld) [Volume fraction] 34.7 % Low 39.0-51.0 [facility] Comment on above: Order Comment: Speci men Type: BLOOD SPECIMENOrdering Facility: [facility] Address: [address] [place] [address] Performed By: #### 5 8410-2 ####LYN LABORATORYCLIA [id number] [address] [place] Hemoglobin (Bld) [Mass/Vol] 11.9 g/dL Low 13.0-17.0 [facility] Comment on above: Order Comment: Speci men Type: BLOOD SPECIMENOrdering Facility: [facility] Address: [address] [place] [address] Performed By: #### 5 8410-2 ####LYN LABORATORYCLIA [id number] [address] [place] MCH (RBC) [Entitic mass] 30.2 pg Normal 26.0-34.0 [facility] Comment on above: Order Comment: Speci men Type: BLOOD SPECIMENOrdering Facility: [facility] Address: [address] [place], [place] [address], [place] [address] Performed By: #### 5 8410-2 ####LYN LABORATORYCLIA [id number] [place] [address] [place] MCHC (RBC) [Mass/Vol] 34.3 g/dL Normal 30.5-36.0 [facility] Comment on above: Order Comment: Speci men Type: BLOOD SPECIMENOrdering Facility: [facility] Address: [place] [address] Performed By: #### 5 8410-2 ####LYN LABORATORYCLIA [id number] [place] [address] [place] MCV (RBC) [Entitic vol] 88.1 fL Normal 80.0-100.0 [facility] Comment on above: Order Comment: Speci men Type: BLOOD SPECIMENOrdering Facility: [facility] Address: [place] [address] Performed By: #### 5 8410-2 ####LYN LABORATORYCLIA [id number] [place] [address] [place] Nucleated RBC (Bld) [#/Vol] 10*3/uL Normal <0.01 [facility] Comment on above: Order Comment: Speci men Type: BLOOD SPECIMENOrdering Facility: [facility] Address: [place] [address] Performed By: #### 5 8410-2 ####LYN LABORATORYCLIA [id number] [place] [address] [place] Platelet mean volume (Bld) [Entitic vol] 10.5 fL Normal 9.0-12.7 [facility] Comment on above: Order Comment: Speci men Type: BLOOD SPECIMENOrdering Facility: [facility] Address: [place] [address] Performed By: #### 5 8410-2 ####LYN LABORATORYCLIA [id number] [place] [address] [place] Platelets (Bld) [#/Vol] 308 10*3/uL Normal 150-400 [facility] Comment on above: Order Comment: Speci men Type: BLOOD SPECIMENOrdering Facility: [facility] Address: [address] [place] [address] Performed By: #### 5 8410-2 ####LYN LABORATORYCLIA [id number] [place] [address] [place] RBC (Bld) [#/Vol] 3.94 10*6/uL Low 4.20-6.00 [facility] Comment on above: Order Comment: Speci men Type: BLOOD SPECIMENOrdering Facility: [facility] Address: [address] [place] [address] Performed By: #### 5 8410-2 ####LYN LABORATORYCLIA [id number] [address] [place] WBC (Bld) [#/Vol] 11.22 10*3/uL High 3.70-11.00 [facility] Comment on above: Order Comment: Speci men Type: BLOOD SPECIMENOrdering Facility: [facility] Address: [address] [place] [address] Performed By: #### 5 8410-2 ####LYN LABORATORYCLIA [id number] [address] OF [facility] CONSULT PROGon 01-08-2023 CONSULT PROG [facility] CONSULT PROG [facility] Magnesium SerPl-mCncon 01-08 Magnesium [Mass/Vol] 1.8 mg/dL Normal 1.7-2.3 [facility] Comment on above: Order Comment: Speci men Type: BLOOD SPECIMENOrdering Facility: [facility] Address: [place] [address] Performed By: #### 1 9123-9 ####LYN LABORATORYCLIA [id number] [address] Magnesium [Mass/Vol] 1.9 mg/dL Normal 1.7-2.3 [facility] Comment on above: Order Comment: Speci men Type: BLOOD SPECIMENOrdering Facility: [facility] Address: [address] [place] [address] Performed By: #### 2 4321-2, 55574-1 ####LYN LABORATORYCLIA [id number] [place] [id number] [place] THERAPY NTon 01-08-2023 THERAPY NT Normal [facility] THERAPY NT Normal [facility] THERAPY NT Normal [facility] ANES POSTPROC EVALon 023 ANES POSTPROC EVAL Normal [facility] ANES PRE-OPon 01-07-2023 ANES PRE-OP Normal [facility] Basic metabolic 2000 panelon 01-07-2023 Anion gap [Moles/Vol] 6 mmol/L Low 9-18 [facility] Comment on above: Order Comment: Speci men Type: BLOOD SPECIMENOrdering Facility: [facility] Address: [address] [place] [address] Performed By: #### 2 4321-2, ####LYN LABORATORYCLIA [id number] [place] [address] [place] Calcium [Mass/Vol] 7.6 mg/dL Low 8.5-10.2 [facility] Comment on above: Order Comment: Speci men Type: BLOOD SPECIMENOrdering Facility: [facility] Address: [address] [place] [address] Performed By: #### 2 4321-2, ####LYN LABORATORYCLIA [id number] [place] [address] [place] Chloride [Moles/Vol] 97 mmol/L Normal 97-105 [facility] Comment on above: Order Comment: Speci men Type: BLOOD SPECIMENOrdering Facility: [facility] Address: [address] [place] [address] Performed By: #### 2 4321-2, ####LYN LABORATORYCLIA [id number] [place] [id number] [place] CO2 [Moles/Vol] 27 mmol/L Normal 22-30 [facility] Comment on above: Order Comment: Speci men Type: BLOOD SPECIMENOrdering Facility: [facility] Address: [address] [place] [id number] Performed By: #### 2 4321-2, ####LYN LABORATORYCLIA [id number] [place] [id number] [place] [facility] Creatinine [Mass/Vol] 0.77 mg/dL Normal 0.73-1.22 [facility] Comment on above: Order Comment: Greer tapia Type: BLOOD SPECIMENOrdering Facility: [facility] Address: [place] [address] Performed By: #### 2 4321-2, ####LYN LABORATORYCLIA [id number] [place] [id number] [place] [facility] Creatinine and Glomerular filtration rate.predicted panel (S/P/Bld) 94 mL/min/1.73m??? Normal >=60 [facility] Comment on above: Order Comment: Greer tapia Type: BLOOD SPECIMENOrdering Facility: [facility] Address: [address] [place] [address] Result Comment: Daiana mated Glomerular Filtration Rate [...] Performed By: #### 2 4321-2, ####LYN LABORATORYCLIA [id number] [place] [id number] [place] Glucose [Mass/Vol] 99 mg/dL Normal 74-99 [facility] Comment on above: Order Comment: Greer tapia Type: BLOOD SPECIMENOrdering Facility: [facility] Address: [address] [place] [address] Result Comment: The [place] [employer] (ADA) provides guidance for cutoff [...] Standards of Medical Care in Diabetes 2016, [place] [employer]. Diabetes Care. 2016.39(Suppl 1). Performed By: #### 2 4321-2, ####LYN LABORATORYCLIA [id number] [address] [facility] Potassium [Moles/Vol] 3.7 mmol/L Normal 3.7-5.1 [facility] Comment on above: Order Comment: Speci men Type: BLOOD SPECIMENOrdering Facility: [facility] Address: [address] [place] [address] Performed By: #### 2 4321-2, ####LYN LABORATORYCLIA [id number] [address] [facility] Sodium [Moles/Vol] 130 mmol/L Low 136-144 [facility] Comment on above: Order Comment: Speci men Type: BLOOD SPECIMENOrdering Facility: [facility] Address: [address] [place] [address] Performed By: #### 2 4321-2, ####LYN LABORATORYCLIA [id number] [address] [facility] Urea nitrogen [Mass/Vol] 11 mg/dL Normal 9-24 [facility] Comment on above: Order Comment: Speci men Type: BLOOD SPECIMENOrdering Facility: [facility] Address: [address] [place] [address] Performed By: #### 2 4321-2, ####HUME LABORATORYCLIA [id number] [address] [place] CASE MANAGEMon 01-07-2023 CASE MANAGEM Normal [facility] CBC panel Auto (Bld)on 01-07 Erythrocyte distribution width (RBC) [Ratio] 13.8 % Normal 11.5-15.0 [facility] Comment on above: Order Comment: Speci men Type: BLOOD SPECIMENOrdering Facility: [facility] Address: [address] [place] [address] Performed By: #### 5 8410-2 ####HUME LABORATORYCLIA [id number] [address] [place] Hematocrit (Bld) [Volume fraction] 34.5 % Low 39.0-51.0 [facility] Comment on above: Order Comment: Speci men Type: BLOOD SPECIMENOrdering Facility: [facility] Address: [address] [place] [address] Performed By: #### 5 8410-2 ####LYN LABORATORYCLIA [id number] [address] Hemoglobin (Bld) [Mass/Vol] 11.8 g/dL Low 13.0-17.0 [facility] Comment on above: Order Comment: Speci men Type: BLOOD SPECIMENOrdering Facility: [facility] Address: [address] [place] [address] Performed By: #### 5 8410-2 ####LYN LABORATORYCLIA [id number] [address] MCH (RBC) [Entitic mass] 30.3 pg Normal 26.0-34.0 [facility] Comment on above: Order Comment: Speci men Type: BLOOD SPECIMENOrdering Facility: [facility] Address: [address] [place] [address] Performed By: #### 5 8410-2 ####LYN LABORATORYCLIA [id number] [address] MCHC (RBC) [Mass/Vol] 34.2 g/dL Normal 30.5-36.0 [facility] Comment on above: Order Comment: Speci men Type: BLOOD SPECIMENOrdering Facility: [facility] Address: [address] [place] [address] Performed By: #### 5 8410-2 ####LYN LABORATORYCLIA [id number] [address] MCV (RBC) [Entitic vol] 88.5 fL Normal 80.0-100.0 [facility] Comment on above: Order Comment: Speci men Type: BLOOD SPECIMENOrdering Facility: [facility] Address: [address] [place] [address] Performed By: #### 5 8410-2 ####LYN LABORATORYCLIA [id number] [place] [address] [place] Nucleated RBC (Bld) [#/Vol] 10*3/uL Normal <0.01 [facility] Comment on above: Order Comment: Speci men Type: BLOOD SPECIMENOrdering Facility: [facility] Address: [address] [place] [address] Performed By: #### 5 8410-2 ####LYN LABORATORYCLIA [id number] [place] [address] [place] Platelet mean volume (Bld) [Entitic vol] 10.0 fL Normal 9.0-12.7 [facility] Comment on above: Order Comment: Speci men Type: BLOOD SPECIMENOrdering Facility: [facility] Address: [address] [place] [address] Performed By: #### 5 8410-2 ####LYN LABORATORYCLIA [id number] [place] [address] [place] Platelets (Bld) [#/Vol] 295 10*3/uL Normal 150-400 [facility] Comment on above: Order Comment: Speci men Type: BLOOD SPECIMENOrdering Facility: [facility] Address: [address] [place] [address] Performed By: #### 5 8410-2 ####LYN LABORATORYCLIA [id number] [place] [address] [place] RBC (Bld) [#/Vol] 3.90 10*6/uL Low 4.20-6.00 [facility] Comment on above: Order Comment: Speci men Type: BLOOD SPECIMENOrdering Facility: [facility] Address: [address] [place] [address] Performed By: #### 5 8410-2 ####LYN LABORATORYCLIA [id number] [place] [address] [facility] [place] WBC (Bld) [#/Vol] 10.25 10*3/uL Normal 3.70-11.00 [facility] Comment on above: Order Comment: Speci men Type: BLOOD SPECIMENOrdering Facility: [facility] Address: [address] [place] [address] Performed By: #### 5 8410-2 ####HUME LABORATORYCLIA [id number] [place] [address] [place] Magnesium SerPl-mCncon 01-07 Magnesium [Mass/Vol] 1.6 mg/dL Low 1.7-2.3 [facility] Comment on above: Order Comment: Speci men Type: BLOOD SPECIMENOrdering Facility: [facility] Address: [place] [address] Performed By: #### 2 4321-2, ####HUME LABORATORYCLIA [id number] [place] [address] [place] NUTRITIONon 01-07-2023 NUTRITION Normal [facility] Upper GI endoscopyon 023 Upper GI endoscopy Normal [facility] Basic metabolic 2000 panelon 01-06-2023 Anion gap [Moles/Vol] 7 mmol/L Low 9-18 [facility] Comment on above: Order Comment: Speci men Type: BLOOD SPECIMENOrdering Facility: [facility] Address: [place] [address] Performed By: #### 2 432-2, ####HUME LABORATORYCLIA [id number] [place] [id number] [place] Calcium [Mass/Vol] 8.1 mg/dL Low 8.5-10.2 [facility] Comment on above: Order Comment: Speci men Type: BLOOD SPECIMENOrdering Facility: [facility] Address: [place] [address] Performed By: #### 2 4321-2, ####HUME LABORATORYCLIA [id number] [place] [address] [place] Chloride [Moles/Vol] 99 mmol/L Normal 97-105 [facility] Comment on above: Order Comment: Speci men Type: BLOOD SPECIMENOrdering Facility: [facility] Address: [place] [address] Performed By: #### 2 4321-2, ####LYN LABORATORYCLIA [id number] [place] [address] [place] CO2 [Moles/Vol] 29 mmol/L Normal 22-30 [facility] Comment on above: Order Comment: Greer tapia Type: BLOOD SPECIMENOrdering Facility: [facility] Address: [address] [place] [address] Performed By: #### 2 432-2, ####LYN LABORATORYCLIA [id number] [place] [address] [place] Creatinine [Mass/Vol] 0.93 mg/dL Normal 0.73-1.22 [facility] Comment on above: Order Comment: Greer men Type: BLOOD SPECIMENOrdering Facility: [facility] Address: [address] [place] [address] Performed By: #### 2 432-2, ####LYN LABORATORYCLIA [id number] [place] [id number] [facility] Creatinine and Glomerular filtration rate.predicted panel (S/P/Bld) 86 mL/min/1.73m??? Normal >=60 [facility] Comment on above: Order Comment: Greer tapia Type: BLOOD SPECIMENOrdering Facility: [facility] Address: [address] [place] [address] Result Comment: Daiana mated Glomerular Filtration Rate [...] Performed By: #### 2 4321-2, ####LYN LABORATORYCLIA [id number] [place] [address] [place] Glucose [Mass/Vol] 79 mg/dL Normal 74-99 [facility] Comment on above: Order Comment: Greer regina Type: BLOOD SPECIMENOrdering Facility: [facility] Address: [address] [place] [address] Result Comment: The [place] [employer] (ADA) provides guidance for cutoff [...] Standards of Medical Care in Diabetes 2016, [place] [employer]. Diabetes Care. 2016.39(Suppl 1). Performed By: #### 2 4320-03, ####HUME LABORATORYCLIA [id number] [place] [address] [place] Potassium [Moles/Vol] 4.3 mmol/L Normal 3.7-5.1 [facility] Comment on above: Order Comment: Greer tapia Type: BLOOD SPECIMENOrdering Facility: [facility] Address: [address] [place] [address] Performed By: #### 2 4320-03, ####HUME LABORATORYCLIA [id number] [place] [address] [place] Sodium [Moles/Vol] 135 mmol/L Low 136-144 [facility] Comment on above: Order Comment: Greer tapia Type: BLOOD SPECIMENOrdering Facility: [facility] Address: [address] [place] [address] Performed By: #### 2 4320-03, ####HUME LABORATORYCLIA [id number] [place] [address] [place] Urea nitrogen [Mass/Vol] 12 mg/dL Normal 9-24 [facility] Comment on above: Order Comment: Greer tapia Type: BLOOD SPECIMENOrdering Facility: [facility] Address: [address] [place] [address] Performed By: #### 2 4320-03, ####LYN LABORATORYCLIA [id number] [place] [id number] [place] CASE MANAGEMon 01-06-2023 CASE MANAGEM Normal [facility] CBC panel Auto (Bld)on 01-06 Erythrocyte distribution width (RBC) [Ratio] 13.6 % Normal 11.5-15.0 [facility] Comment on above: Order Comment: Speci men Type: BLOOD SPECIMENOrdering Facility: [facility] Address: [address] [place] [address] Performed By: #### 5 8410-2 ####LYN LABORATORYCLIA [id number] [address] Hematocrit (Bld) [Volume fraction] 38.2 % Low 39.0-51.0 [facility] Comment on above: Order Comment: Speci men Type: BLOOD SPECIMENOrdering Facility: [facility] Address: [address] [place] [address] Performed By: #### 5 8410-2 ####LYN LABORATORYCLIA [id number] [address] Hemoglobin (Bld) [Mass/Vol] 13.1 g/dL Normal 13.0-17.0 [facility] [facility] Comment on above: Order Comment: Speci men Type: BLOOD SPECIMENOrdering Facility: [facility] Address: [address] [place] [address] Performed By: #### 5 8410-2 ####LYN LABORATORYCLIA [id number] [address] MCH (RBC) [Entitic mass] 29.9 pg Normal 26.0-34.0 [facility] Comment on above: Order Comment: Speci men Type: BLOOD SPECIMENOrdering Facility: [facility] Address: [address] [place] [address] Performed By: #### 5 8410-2 ####LYN LABORATORYCLIA [id number] [address] MCHC (RBC) [Mass/Vol] 34.3 g/dL Normal 30.5-36.0 [facility] Comment on above: Order Comment: Speci men Type: BLOOD SPECIMENOrdering Facility: [facility] Address: [address] [place] [address] Performed By: #### 5 8410-2 ####LYN LABORATORYCLIA [id number] [address] MCV (RBC) [Entitic vol] 87.2 fL Normal 80.0-100.0 [facility] Comment on above: Order Comment: Speci men Type: BLOOD SPECIMENOrdering Facility: [facility] Address: [address] [place] [address] Performed By: #### 5 8410-2 ####LYN LABORATORYCLIA [id number] [address] [place] Nucleated RBC (Bld) [#/Vol] 10*3/uL Normal <0.01 [facility] Comment on above: Order Comment: Speci men Type: BLOOD SPECIMENOrdering Facility: [facility] Address: [address] [place] [address] Performed By: #### 5 8410-2 ####LYN LABORATORYCLIA [id number] [address] [place] Platelet mean volume (Bld) [Entitic vol] 10.4 fL Normal 9.0-12.7 [facility] Comment on above: Order Comment: Speci men Type: BLOOD SPECIMENOrdering Facility: [facility] Address: [address] [place] [address] Performed By: #### 5 8410-2 ####LYN LABORATORYCLIA [id number] [address] [place] Platelets (Bld) [#/Vol] 262 10*3/uL Normal 150-400 [facility] Comment on above: Order Comment: Speci men Type: BLOOD SPECIMENOrdering Facility: [facility] Address: [address] [place] [address] Performed By: #### 5 8410-2 ####LYN LABORATORYCLIA [id number] [place] [address] [place] RBC (Bld) [#/Vol] 4.38 10*6/uL Normal 4.20-6.00 [facility] Comment on above: Order Comment: Speci men Type: BLOOD SPECIMENOrdering Facility: [facility] Address: [address] [place] [address] Performed By: #### 5 8410-2 ####LYN LABORATORYCLIA [id number] [place] [address] [place] WBC (Bld) [#/Vol] 12.27 10*3/uL High 3.70-11.00 [facility] Comment on above: Order Comment: Speci men Type: BLOOD SPECIMENOrdering Facility: [facility] Address: [place] [address] Performed By: #### 5 8410-2 ####LYN LABORATORYCLIA [id number] [address] [place] CONSULTon 01-06-2023 CONSULT Normal [facility] CONSULT PROGon 01-06-2023 CONSULT PROG Normal [facility] Magnesium SerPl-mCncon 01-06 Magnesium [Mass/Vol] 1.8 mg/dL Normal 1.7-2.3 [facility] Comment on above: Order Comment: Speci men Type: BLOOD SPECIMENOrdering Facility: [facility] Address: [place] [address] Performed By: #### 2 4321-2, 77766-6 ####HUME LABORATORYCLIA [id number] [address] [place] NUTRITIONon 01-06-2023 NUTRITION Normal [facility] THERAPY NTon 01-06-2023 THERAPY NT Normal [facility] THERAPY NT Normal [facility] THERAPY NT Normal [facility] THERAPY NT Normal [facility] ALLIED HEALTHon 01-05-2023 ALLIED HEALTH Normal [facility] CBC panel Auto (Bld)on 01-05 Erythrocyte distribution width (RBC) [Ratio] 13.5 % Normal 11.5-15.0 [facility] Comment on above: Order Comment: Speci men Type: BLOOD SPECIMENOrdering Facility: [facility] Address: [place] [address] Performed By: #### 5 8410-2 ####LYN LABORATORYCLIA [id number] [address] [place] Hematocrit (Bld) [Volume fraction] 41.8 % Normal 39.0-51.0 [facility] Comment on above: Order Comment: Speci men Type: BLOOD SPECIMENOrdering Facility: [facility] Address: [address] [place] [address] Performed By: #### 5 8410-2 ####LYN LABORATORYCLIA [id number] [address] [place] Hemoglobin (Bld) [Mass/Vol] 14.5 g/dL Normal 13.0-17.0 [facility] Comment on above: Order Comment: Speci men Type: BLOOD SPECIMENOrdering Facility: [facility] Address: [address] [place] [address] Performed By: #### 5 8410-2 ####LYN LABORATORYCLIA [id number] [address] [place] MCH (RBC) [Entitic mass] 30.5 pg Normal 26.0-34.0 [facility] Comment on above: Order Comment: Speci men Type: BLOOD SPECIMENOrdering Facility: [facility] Address: [address] [place] [address] Performed By: #### 5 8410-2 ####LYN LABORATORYCLIA [id number] [address] MCHC (RBC) [Mass/Vol] 34.7 g/dL Normal 30.5-36.0 [facility] Comment on above: Order Comment: Speci men Type: BLOOD SPECIMENOrdering Facility: [facility] Address: [address] [place] [address] Performed By: #### 5 8410-2 ####LYN LABORATORYCLIA [id number] [address] MCV (RBC) [Entitic vol] 88.0 fL Normal 80.0-100.0 [facility] Comment on above: Order Comment: Speci men Type: BLOOD SPECIMENOrdering Facility: [facility] Address: [address] [place] [address] Performed By: #### 5 8410-2 ####LYN LABORATORYCLIA [id number] [address] Nucleated RBC (Bld) [#/Vol] 10*3/uL Normal <0.01 [facility] Comment on above: Order Comment: Speci men Type: BLOOD SPECIMENOrdering Facility: [facility] Address: [address] [place] [address] Performed By: #### 5 8410-2 ####LYN LABORATORYCLIA [id number] [place] [address] [place] Platelet mean volume (Bld) [Entitic vol] 10.0 fL Normal 9.0-12.7 [facility] Comment on above: Order Comment: Speci men Type: BLOOD SPECIMENOrdering Facility: [facility] Address: [place] [address] Performed By: #### 5 8410-2 ####LYN LABORATORYCLIA [id number] [place] [address] [place] Platelets (Bld) [#/Vol] 397 10*3/uL Normal 150-400 [facility] Comment on above: Order Comment: Speci men Type: BLOOD SPECIMENOrdering Facility: [facility] Address: [place] [address] Performed By: #### 5 8410-2 ####HUME LABORATORYCLIA [id number] [place] [address] [place] RBC (Bld) [#/Vol] 4.75 10*6/uL Normal 4.20-6.00 [facility] Comment on above: Order Comment: Speci men Type: BLOOD SPECIMENOrdering Facility: [facility] Address: [place] [address] Performed By: #### 5 8410-2 ####HUME LABORATORYCLIA [id number] [place] [address] [place] WBC (Bld) [#/Vol] 13.05 10*3/uL High 3.70-11.00 [facility] Comment on above: Order Comment: Speci men Type: BLOOD SPECIMENOrdering Facility: [facility] Address: [place] [address] Performed By: #### 5 8410-2 ####LYN LABORATORYCLIA [id number] [address] [place] CONSULT PROGon 01-05-2023 CONSULT PROG Normal [facility] Comprehensive metabolic 2000 panelon 01-05-2023 Albumin [Mass/Vol] 3.0 g/dL Low 3.9-4.9 [facility] Comment on above: Order Comment: Speci men Type: BLOOD SPECIMENOrdering Facility: [facility] Address: [place] [address] Performed By: #### 2 432-8, ####LYN LABORATORYCLIA [id number] [place] [address] [place] ALP [Catalytic activity/Vol] 74 U/L Normal 38-113 [facility] Comment on above: Order Comment: Speci men Type: BLOOD SPECIMENOrdering Facility: [facility] Address: [address] [place] [address] Performed By: #### 2 8, ####LYN LABORATORYCLIA [id number] [address] [place] ALT [Catalytic activity/Vol] U/L Low 10-54 [facility] Comment on above: Order Comment: Speci men Type: BLOOD SPECIMENOrdering Facility: [facility] Address: [address] [place] [address] Performed By: #### 2 8, ####LYN LABORATORYCLIA [id number] [address] [facility] Anion gap [Moles/Vol] 15 mmol/L Normal 9-18 [facility] Comment on above: Order Comment: Speci men Type: BLOOD SPECIMENOrdering Facility: [facility] Address: [address] [place] [address] Performed By: #### 2 8, ####LYN LABORATORYCLIA [id number] [address] [place] AST [Catalytic activity/Vol] 11 U/L Low 14-40 [facility] Comment on above: Order Comment: Speci men Type: BLOOD SPECIMENOrdering Facility: [facility] Address: [address] [place] [address] Performed By: #### 2 432-8, ####LYN LABORATORYCLIA [id number] [place] [address] [place] Bilirubin [Mass/Vol] 0.7 mg/dL Normal 0.2-1.3 [facility] Comment on above: Order Comment: Speci men Type: BLOOD SPECIMENOrdering Facility: [facility] Address: [address] [facility] [place] [address] Performed By: #### 2 4328, ####LYN LABORATORYCLIA [id number] [place] [address] [place] Calcium [Mass/Vol] 8.2 mg/dL Low 8.5-10.2 [facility] Comment on above: Order Comment: Speci men Type: BLOOD SPECIMENOrdering Facility: [facility] Address: [place] [address] Performed By: #### 2 8, ####LYN LABORATORYCLIA [id number] [place] [address] [place] Chloride [Moles/Vol] 99 mmol/L Normal 97-105 [facility] Comment on above: Order Comment: Speci men Type: BLOOD SPECIMENOrdering Facility: [facility] Address: [place] [address] Performed By: #### 2 8, ####LYN LABORATORYCLIA [id number] [place] [address] [place] CO2 [Moles/Vol] 20 mmol/L Low 22-30 [facility] Comment on above: Order Comment: Speci men Type: BLOOD SPECIMENOrdering Facility: [facility] Address: [place] [address] Performed By: #### 2 4328, ####LYN LABORATORYCLIA [id number] [place] [address] [place] Creatinine [Mass/Vol] 0.80 mg/dL Normal 0.73-1.22 [facility] Comment on above: Order Comment: Speci men Type: BLOOD SPECIMENOrdering Facility: [facility] Address: [place] [address] Performed By: #### 2 4322-09, ####LYN LABORATORYCLIA [id number] [place] [address] [place] Creatinine and Glomerular filtration rate.predicted panel (S/P/Bld) 93 mL/min/1.73m??? Normal >=60 [facility] Comment on above: Order Comment: Greer tapia Type: BLOOD SPECIMENOrdering Facility: [facility] Address: [address] [place] [address] Result Comment: Daiana mated Glomerular Filtration Rate [...] actual GFR. Performed By: #### 2 4323-8, ####HUME LABORATORYCLIA [id number] [place] [id number] [place] Glucose [Mass/Vol] 101 mg/dL High 74-99 [facility] Comment on above: Order Comment: Greer tapia Type: BLOOD SPECIMENOrdering Facility: [facility] Address: [address] [place] [address] Result Comment: The [place] [employer] (ADA) provides guidance for cutoff [...] Standards of Medical Care in Diabetes 2016, [place] [employer]. Diabetes Care. 2016.39(Suppl 1). Performed By: #### 2 4323-8, ####LYN LABORATORYCLIA [id number] [place] [address] [place] Potassium [Moles/Vol] 4.7 mmol/L Normal 3.7-5.1 [facility] Comment on above: Order Comment: Speci men Type: BLOOD SPECIMENOrdering Facility: [facility] Address: [address] [place] [address] Performed By: #### 2 4323-8, ####LYN LABORATORYCLIA [id number] [address] Protein [Mass/Vol] 6.2 g/dL Low 6.3-8.0 [facility] Comment on above: Order Comment: Speci men Type: BLOOD SPECIMENOrdering Facility: [facility] Address: [address] [place] [address] Performed By: #### 2 4323-8, ####LYN LABORATORYCLIA [id number] [place] [address] [place] Sodium [Moles/Vol] 134 mmol/L Low 136-144 [facility] Comment on above: Order Comment: Speci men Type: BLOOD SPECIMENOrdering Facility: [facility] Address: [place] [address] Performed By: #### 2 4323-8, ####LYN LABORATORYCLIA [id number] [address] [place] Urea nitrogen [Mass/Vol] 11 mg/dL Normal 9-24 [facility] Comment on above: Order Comment: Speci men Type: BLOOD SPECIMENOrdering Facility: [facility] Address: [place] [address] Performed By: #### 2 4323-8, ####LYN LABORATORYCLIA [id number] [place] [address] [place] ECG COMPLETEon 01-05-2023 ECG COMPLETE Normal [facility] MEDICAL EMERon 01-05-2023 MEDICAL AIDAN [facility] Magnesium SerPl-mCncon 01-05 Magnesium [Mass/Vol] 2.3 mg/dL Normal 1.7-2.3 [facility] Comment on above: Order Comment: Speci men Type: BLOOD SPECIMENOrdering Facility: [facility] Address: [address] [place] [address] Performed By: #### 1 9123-9 ####LYN LABORATORYCLIA [id number] [place] [address] [place] Magnesium [Mass/Vol] 1.5 mg/dL Low 1.7-2.3 [facility] Comment on above: Order Comment: Speci men Type: BLOOD SPECIMENOrdering Facility: [facility] Address: [address] [place] [address] Performed By: #### 2 4323-8, 79147-2 ####LYN LABORATORYCLIA [id number] [place] [address] [place] NURSING PROGon 01-05-2023 NURSING PROG [facility] THERAPY NTon 01-05-2023 THERAPY NT [facility] XR CHEST 1V FRONTAL PORTon 1 03-07-2022 XR CHEST 1V FRONTAL PORT [facility] CBC panel Auto (Bld)on 01-04 Erythrocyte distribution width (RBC) [Ratio] 13.3 % Normal 11.5-15.0 [facility] Comment on above: Order Comment: Speci men Type: BLOOD SPECIMENOrdering Facility: [facility] Address: [address] [place] [address] Performed By: #### 5 8410-2 ####LYN LABORATORYCLIA [id number] [address] [place] Hematocrit (Bld) [Volume fraction] 37.9 % Low 39.0-51.0 [facility] Comment on above: Order Comment: Speci men Type: BLOOD SPECIMENOrdering Facility: [facility] Address: [address] [place] [address] Performed By: #### 5 8410-2 ####LYN LABORATORYCLIA [id number] [place] [address] [place] Hemoglobin (Bld) [Mass/Vol] 12.6 g/dL Low 13.0-17.0 [facility] Comment on above: Order Comment: Speci men Type: BLOOD SPECIMENOrdering Facility: [facility] Address: [address] [place] [address] Performed By: #### 5 8410-2 ####LYN LABORATORYCLIA [id number] [address] MCH (RBC) [Entitic mass] 29.5 pg Normal 26.0-34.0 [facility] Comment on above: Order Comment: Speci men Type: BLOOD SPECIMENOrdering Facility: [facility] Address: [address] [place] [address] Performed By: #### 5 8410-2 ####LYN LABORATORYCLIA [id number] [address] [place] MCHC (RBC) [Mass/Vol] 33.2 g/dL Normal 30.5-36.0 [facility] Comment on above: Order Comment: Speci men Type: BLOOD SPECIMENOrdering Facility: [facility] Address: [address] [place] [address] Performed By: #### 5 8410-2 ####LYN LABORATORYCLIA [id number] [address] MCV (RBC) [Entitic vol] 88.8 fL Normal 80.0-100.0 [facility] Comment on above: Order Comment: Speci men Type: BLOOD SPECIMENOrdering Facility: [facility] Address: [address] [place] [address] Performed By: #### 5 8410-2 ####LYN LABORATORYCLIA [id number] [address] Nucleated RBC (Bld) [#/Vol] 10*3/uL Normal <0.01 [facility] Comment on above: Order Comment: Speci men Type: BLOOD SPECIMENOrdering Facility: [facility] Address: [address] [place] [address] Performed By: #### 5 8410-2 ####LYN LABORATORYCLIA [id number] [address] [place] Platelet mean volume (Bld) [Entitic vol] 10.5 fL Normal 9.0-12.7 [facility] Comment on above: Order Comment: Speci men Type: BLOOD SPECIMENOrdering Facility: [facility] Address: [address] [place] [address] Performed By: #### 5 8410-2 ####LYN LABORATORYCLIA [id number] [place] [address] [facility] [place] Platelets (Bld) [#/Vol] 297 10*3/uL Normal 150-400 [facility] Comment on above: Order Comment: Speci men Type: BLOOD SPECIMENOrdering Facility: [facility] Address: [address] [place] [address] Performed By: #### 5 8410-2 ####LYN LABORATORYCLIA [id number] [place] [address] [place] RBC (Bld) [#/Vol] 4.27 10*6/uL Normal 4.20-6.00 [facility] Comment on above: Order Comment: Speci men Type: BLOOD SPECIMENOrdering Facility: [facility] Address: [address] [place] [address] Performed By: #### 5 8410-2 ####LYN LABORATORYCLIA [id number] [place] [address] [place] WBC (Bld) [#/Vol] 8.02 10*3/uL Normal 3.70-11.00 [facility] Comment on above: Order Comment: Speci men Type: BLOOD SPECIMENOrdering Facility: [facility] Address: [address] [place] [address] Performed By: #### 5 8410-2 ####LYN LABORATORYCLIA [id number] [address] OF [facility] CONSULT PROGon 01-04-2023 CONSULT PROG Normal [facility] Comprehensive metabolic 2000 panelon 01-04-2023 Albumin [Mass/Vol] 2.6 g/dL Low 3.9-4.9 [facility] Comment on above: Order Comment: Speci men Type: BLOOD SPECIMENOrdering Facility: [facility] Address: [address] [place] [address] Performed By: #### 1 9123-9, 73655-9 ####LYN LABORATORYCLIA [id number] [address] [place] ALP [Catalytic activity/Vol] 66 U/L Normal 38-113 [facility] Comment on above: Order Comment: Speci men Type: BLOOD SPECIMENOrdering Facility: [facility] Address: [address] [place] [address] Performed By: #### 1 239, ####LYN LABORATORYCLIA [id number] [place] [address] [place] ALT [Catalytic activity/Vol] U/L Low 10-54 [facility] Comment on above: Order Comment: Speci men Type: BLOOD SPECIMENOrdering Facility: [facility] Address: [address] [place] [address] Performed By: #### 1 239, ####LYN LABORATORYCLIA [id number] [place] [address] [place] Anion gap [Moles/Vol] 9 mmol/L Normal 9-18 [facility] Comment on above: Order Comment: Speci men Type: BLOOD SPECIMENOrdering Facility: [facility] Address: [address] [place] [address] Performed By: #### 1 9, ####LYN LABORATORYCLIA [id number] [place] [address] [place] AST [Catalytic activity/Vol] 13 U/L Low 14-40 [facility] Comment on above: Order Comment: Speci men Type: BLOOD SPECIMENOrdering Facility: [facility] Address: [address] [place] [address] Performed By: #### 1 239, ####LYN LABORATORYCLIA [id number] [place] [address] [place] Bilirubin [Mass/Vol] 0.5 mg/dL Normal 0.2-1.3 [facility] Comment on above: Order Comment: Speci men Type: BLOOD SPECIMENOrdering Facility: [facility] Address: [address] [place] [address] Performed By: #### 1 239, ####LYN LABORATORYCLIA [id number] [place] [address] [place] Calcium [Mass/Vol] 7.8 mg/dL Low 8.5-10.2 [facility] Comment on above: Order Comment: Speci men Type: BLOOD SPECIMENOrdering Facility: [facility] Address: [address] [place] [address] Performed By: #### 1 9123-9, ####LYN LABORATORYCLIA [id number] [place] [address] [place] Chloride [Moles/Vol] 100 mmol/L Normal 97-105 [facility] Comment on above: Order Comment: Speci men Type: BLOOD SPECIMENOrdering Facility: [facility] Address: [address] [place] [address] Performed By: #### 1 9123-9, ####LYN LABORATORYCLIA [id number] [place] [address] [place] CO2 [Moles/Vol] 27 mmol/L Normal 22-30 [facility] Comment on above: Order Comment: Speci men Type: BLOOD SPECIMENOrdering Facility: [facility] Address: [address] [place] [address] Performed By: #### 1 9123-9, ####LYN LABORATORYCLIA [id number] [place] [address] [place] Creatinine [Mass/Vol] 0.81 mg/dL Normal 0.73-1.22 [facility] Comment on above: Order Comment: Speci men Type: BLOOD SPECIMENOrdering Facility: [facility] Address: [address] [place] [address] Performed By: #### 1 9123-9, ####LYN LABORATORYCLIA [id number] [place] [address] [place] Creatinine and Glomerular filtration rate.predicted panel (S/P/Bld) 93 mL/min/1.73m??? Normal >=60 [facility] Comment on above: Order Comment: Speci men Type: BLOOD SPECIMENOrdering Facility: [facility] Address: [address] [place] [address] Result Comment: Daiana mated Glomerular Filtration Rate [...] Performed By: #### 1 9123-9, ####LYN LABORATORYCLIA [id number] [place] [address] [place] Glucose [Mass/Vol] 88 mg/dL Normal 74-99 [facility] Comment on above: Order Comment: Greer tapia Type: BLOOD SPECIMENOrdering Facility: [facility] Address: [address] [place] [address] Result Comment: The [place] [employer] (ADA) provides guidance for cutoff [...] Standards of Medical Care in Diabetes 2016, [place] [employer]. Diabetes Care. 2016.39(Suppl 1). Performed By: #### 1 9123-9, ####LYN LABORATORYCLIA [id number] [place] [id number] [place] Potassium [Moles/Vol] 3.5 mmol/L Low 3.7-5.1 [facility] Comment on above: Order Comment: Greer tapia Type: BLOOD SPECIMENOrdering Facility: [facility] Address: [address] [place] [address] Performed By: #### 1 9123-9, ####LYN LABORATORYCLIA [id number] [place] [address] [place] Protein [Mass/Vol] 5.2 g/dL Low 6.3-8.0 [facility] Comment on above: Order Comment: Greer tapia Type: BLOOD SPECIMENOrdering Facility: [facility] Address: [address] [place] [address] Performed By: #### 1 9123-9, 37102-3 ####LYN LABORATORYCLIA [id number] [place] [address] [place] Sodium [Moles/Vol] 136 mmol/L Normal 136-144 [facility] Comment on above: Order Comment: Speci men Type: BLOOD SPECIMENOrdering Facility: [facility] Address: [address] [place] [address] Performed By: #### 1 9123-9, 70406-9 ####LYN LABORATORYCLIA [id number] [place] [address] [place] Urea nitrogen [Mass/Vol] 9 mg/dL Normal 9-24 [facility] Comment on above: Order Comment: Speci men Type: BLOOD SPECIMENOrdering Facility: [facility] Address: [address] [place] [address] Performed By: #### 1 9123-9, ####LYN LABORATORYCLIA [id number] [place] [address] [place] Magnesium SerPl-mCncon 01-04 Magnesium [Mass/Vol] 1.7 mg/dL Normal 1.7-2.3 [facility] Comment on above: Order Comment: Speci men Type: BLOOD SPECIMENOrdering Facility: [facility] Address: [address] [place] [address] Performed By: #### 1 9123-9, 02408-4 ####LYN LABORATORYCLIA [id number] [place] [address] [place] NURSING PROGon 01-04-2023 NURSING PROG Normal [facility] CBC panel Auto (Bld)on 01-03 Erythrocyte distribution width (RBC) [Ratio] 13.2 % Normal 11.5-15.0 [facility] Comment on above: Order Comment: Speci men Type: BLOOD SPECIMENOrdering Facility: [facility] Address: [address] [place] [address] Performed By: #### 5 8410-2 ####LYN LABORATORYCLIA [id number] [address] Hematocrit (Bld) [Volume fraction] 37.4 % Low 39.0-51.0 [facility] Comment on above: Order Comment: Speci men Type: BLOOD SPECIMENOrdering Facility: [facility] Address: [address] [place] [address] Performed By: #### 5 8410-2 ####LYN LABORATORYCLIA [id number] [address] Hemoglobin (Bld) [Mass/Vol] 12.8 g/dL Low 13.0-17.0 [facility] Comment on above: Order Comment: Speci men Type: BLOOD SPECIMENOrdering Facility: [facility] Address: [address] [place] [address] Performed By: #### 5 8410-2 ####LYN LABORATORYCLIA [id number] [address] MCH (RBC) [Entitic mass] 30.3 pg Normal 26.0-34.0 [facility] Comment on above: Order Comment: Speci men Type: BLOOD SPECIMENOrdering Facility: [facility] Address: [address] [place] [address] Performed By: #### 5 8410-2 ####LYN LABORATORYCLIA [id number] [address] MCHC (RBC) [Mass/Vol] 34.2 g/dL Normal 30.5-36.0 [facility] Comment on above: Order Comment: Speci men Type: BLOOD SPECIMENOrdering Facility: [facility] Address: [address] [place] [address] Performed By: #### 5 8410-2 ####LYN LABORATORYCLIA [id number] [address] MCV (RBC) [Entitic vol] 88.4 fL Normal 80.0-100.0 [facility] Comment on above: Order Comment: Speci men Type: BLOOD SPECIMENOrdering Facility: [facility] Address: [address] [place] [address] Performed By: #### 5 8410-2 ####LYN LABORATORYCLIA [id number] [place] [address] [place] Nucleated RBC (Bld) [#/Vol] 10*3/uL Normal <0.01 [facility] Comment on above: Order Comment: Speci men Type: BLOOD SPECIMENOrdering Facility: [facility] Address: [address] [place] [address] Performed By: #### 5 8410-2 ####LYN LABORATORYCLIA [id number] [place] [address] [place] Platelet mean volume (Bld) [Entitic vol] 10.6 fL Normal 9.0-12.7 [facility] Comment on above: Order Comment: Speci men Type: BLOOD SPECIMENOrdering Facility: [facility] Address: [address] [place] [address] Performed By: #### 5 8410-2 ####LYN LABORATORYCLIA [id number] [place] [address] [place] Platelets (Bld) [#/Vol] 287 10*3/uL Normal 150-400 [facility] Comment on above: Order Comment: Speci men Type: BLOOD SPECIMENOrdering Facility: [facility] Address: [address] [place] [address] Performed By: #### 5 8410-2 ####LYN LABORATORYCLIA [id number] [place] [address] [place] RBC (Bld) [#/Vol] 4.23 10*6/uL Normal 4.20-6.00 [facility] Comment on above: Order Comment: Speci men Type: BLOOD SPECIMENOrdering Facility: [facility] Address: [address] [place] [address] Performed By: #### 5 8410-2 ####LYN LABORATORYCLIA [id number] [place] [id number] [place] WBC (Bld) [#/Vol] 8.06 10*3/uL Normal 3.70-11.00 [facility] Comment on above: Order Comment: Speci men Type: BLOOD SPECIMENOrdering Facility: [facility] Address: [address] [place] [address] Performed By: #### 5 8410-2 ####LYN LABORATORYCLIA [id number] [place] [address] [place] CONSULT PROGon 01-03-2023 CONSULT PROG Normal [facility] Comprehensive metabolic 2000 panelon 01-03-2023 Albumin [Mass/Vol] 2.7 g/dL Low 3.9-4.9 [facility] Comment on above: Order Comment: Speci men Type: BLOOD SPECIMENOrdering Facility: [facility] Address: [address] [place] [address] Performed By: #### 2 4323-8, ####LYN LABORATORYCLIA [id number] [place] [address] [place] ALP [Catalytic activity/Vol] 59 U/L Normal 38-113 [facility] Comment on above: Order Comment: Speci men Type: BLOOD SPECIMENOrdering Facility: [facility] Address: [address] [place] [address] Performed By: #### 2 4323-8, ####LYN LABORATORYCLIA [id number] [place] [address] [place] ALT [Catalytic activity/Vol] U/L Low 10-54 [facility] Comment on above: Order Comment: Speci men Type: BLOOD SPECIMENOrdering Facility: [facility] Address: [address] [place] [address] Performed By: #### 2 4323-8, ####LYN LABORATORYCLIA [id number] [place] [id number] [place] [facility] Anion gap [Moles/Vol] 12 mmol/L Normal 9-18 [facility] Comment on above: Order Comment: Speci men Type: BLOOD SPECIMENOrdering Facility: [facility] Address: [place] [address] Performed By: #### 2 4323-8, ####LYN LABORATORYCLIA [id number] [place] [id number] [place] AST [Catalytic activity/Vol] 13 U/L Low 14-40 [facility] Comment on above: Order Comment: Speci men Type: BLOOD SPECIMENOrdering Facility: [facility] Address: [address] [place] [address] Performed By: #### 2 4322-09, ####LYN LABORATORYCLIA [id number] [place] [address] [place] Bilirubin [Mass/Vol] 0.5 mg/dL Normal 0.2-1.3 [facility] Comment on above: Order Comment: Speci men Type: BLOOD SPECIMENOrdering Facility: [facility] Address: [place] [address] Performed By: #### 2 4322-09, ####LYN LABORATORYCLIA [id number] [place] [address] [place] Calcium [Mass/Vol] 7.8 mg/dL Low 8.5-10.2 [facility] Comment on above: Order Comment: Speci men Type: BLOOD SPECIMENOrdering Facility: [facility] Address: [place] [address] Performed By: #### 2 4322-09, ####LYN LABORATORYCLIA [id number] [place] [address] [place] Chloride [Moles/Vol] 99 mmol/L Normal 97-105 [facility] Comment on above: Order Comment: Speci men Type: BLOOD SPECIMENOrdering Facility: [facility] Address: [place] [address] Performed By: #### 2 4322-09, ####LYN LABORATORYCLIA [id number] [place] [id number] [place] CO2 [Moles/Vol] 24 mmol/L Normal 22-30 [facility] Comment on above: Order Comment: Speci men Type: BLOOD SPECIMENOrdering Facility: [facility] Address: [place] [address] Performed By: #### 2 4322-09, ####LYN LABORATORYCLIA [id number] [place] [address] [place] Creatinine [Mass/Vol] 0.73 mg/dL Normal 0.73-1.22 [facility] Comment on above: Order Comment: Greer tapia Type: BLOOD SPECIMENOrdering Facility: [facility] Address: [place] [address] Performed By: #### 2 4323-8, ####HUME LABORATORYCLIA [id number] [place] [address] [place] Creatinine and Glomerular filtration rate.predicted panel (S/P/Bld) 95 mL/min/1.73m??? Normal >=60 [facility] Comment on above: Order Comment: Greer tapia Type: BLOOD SPECIMENOrdering Facility: [facility] Address: [place] [address] Result Comment: Daiana mated Glomerular Filtration Rate [...] actual GFR. Performed By: #### 2 4323-8, ####HUME LABORATORYCLIA [id number] [place] [id number] [place] Glucose [Mass/Vol] 111 mg/dL High 74-99 [facility] Comment on above: Order Comment: Greer tapia Type: BLOOD SPECIMENOrdering Facility: [facility] Address: [place] [address] Result Comment: The [place] [employer] (ADA) provides guidance for cutoff [...] Standards of Medical Care in Diabetes 2016, [place] [employer]. Diabetes Care. 2016.39(Suppl 1). Performed By: #### 2 432-8, ####LYN LABORATORYCLIA [id number] [place] [address] [place] Potassium [Moles/Vol] 3.3 mmol/L Low 3.7-5.1 [facility] Comment on above: Order Comment: Speci men Type: BLOOD SPECIMENOrdering Facility: [facility] Address: [address] [place] [address] Performed By: #### 2 4328, ####LYN LABORATORYCLIA [id number] [place] [address] [place] Protein [Mass/Vol] 5.2 g/dL Low 6.3-8.0 [facility] Comment on above: Order Comment: Speci men Type: BLOOD SPECIMENOrdering Facility: [facility] Address: [address] [place] [address] Performed By: #### 2 4328, ####LYN LABORATORYCLIA [id number] [place] [address] [place] Sodium [Moles/Vol] 135 mmol/L Low 136-144 [facility] Comment on above: Order Comment: Speci men Type: BLOOD SPECIMENOrdering Facility: [facility] Address: [address] [place] [address] Performed By: #### 2 4328, ####LYN LABORATORYCLIA [id number] [place] [address] [place] Urea nitrogen [Mass/Vol] 9 mg/dL Normal 9-24 [facility] Comment on above: Order Comment: Speci men Type: BLOOD SPECIMENOrdering Facility: [facility] Address: [address] [place] [address] Performed By: #### 2 4323-8, ####LYN LABORATORYCLIA [id number] [place] [address] [place] Magnesium SerPl-mCncon 01-03 Magnesium [Mass/Vol] 1.5 mg/dL Low 1.7-2.3 [facility] Comment on above: Order Comment: Speci men Type: BLOOD SPECIMENOrdering Facility: [facility] Address: [place] [address] Performed By: #### 2 4323-8, 46182-5 ####HUME LABORATORYCLIA [id number] [address] PT panel Coag (PPP)on 2022 INR Coag (PPP) [Relative time] 1.2 {INR} Normal 0.9-1.3 [facility] Comment on above: Order Comment: Greer regina Type: BLOOD SPECIMENOrdering Facility: [facility] Address: [place] [address] Result Comment: Quynh min K Antagonist (VKA) Therapeutic Range: INR 2 to 3 (Target INR of 2.5)Note: For patients treated with VKA drugs, such as warfarin, the [place] [employer] 2012 Guideline recommends [...] al. Chest 2012, 141:7S-47SNishcynthia RA, et al. [facility] 2017, 70: 252-289 Performed By: #### 3 4528-0 ####HUME LABORATORYCLIA [id number] [place] [id number] [facility] PT Coag (PPP) [Time] 12.8 s Normal 9.7-13.0 [facility] Comment on above: Order Comment: Madelinetio tapia Type: BLOOD SPECIMENOrdering Facility: [facility] Address: [place] [address] Performed By: #### 3 4528-0 ####HUME LABORATORYCLIA [id number] [address] THERAPY NTon 01-03-2023 THERAPY NT Normal [facility] ALLIED HEALTHon 01-02-2023 ALLIED HEALTH Normal [facility] CASE MANAGEMon 01-02-2023 CASE MANAGEM Normal [facility] CBC panel Auto (Bld)on 01-02 Erythrocyte distribution width (RBC) [Ratio] 13.5 % Normal 11.5-15.0 [facility] Comment on above: Order Comment: Speci men Type: BLOOD SPECIMENOrdering Facility: [facility] Address: [address] [place] [address] Performed By: #### 5 8410-2 ####LYN LABORATORYCLIA [id number] [address] Hematocrit (Bld) [Volume fraction] 36.2 % Low 39.0-51.0 [facility] Comment on above: Order Comment: Speci men Type: BLOOD SPECIMENOrdering Facility: [facility] Address: [address] [place] [address] Performed By: #### 5 8410-2 ####LYN LABORATORYCLIA [id number] [address] [place] Hemoglobin (Bld) [Mass/Vol] 12.2 g/dL Low 13.0-17.0 [facility] Comment on above: Order Comment: Speci men Type: BLOOD SPECIMENOrdering Facility: [facility] Address: [address] [place] [address] Performed By: #### 5 8410-2 ####LYN LABORATORYCLIA [id number] [place] [address] [place] MCH (RBC) [Entitic mass] 29.7 pg Normal 26.0-34.0 [facility] Comment on above: Order Comment: Speci men Type: BLOOD SPECIMENOrdering Facility: [facility] Address: [address] [place] [address] Performed By: #### 5 8410-2 ####LYN LABORATORYCLIA [id number] [place] [address] [place] MCHC (RBC) [Mass/Vol] 33.7 g/dL Normal 30.5-36.0 [facility] Comment on above: Order Comment: Speci men Type: BLOOD SPECIMENOrdering Facility: [facility] Address: [address] [place] [address] Performed By: #### 5 8410-2 ####LYN LABORATORYCLIA [id number] [address] MCV (RBC) [Entitic vol] 88.1 fL Normal 80.0-100.0 [facility] Comment on above: Order Comment: Speci men Type: BLOOD SPECIMENOrdering Facility: [facility] Address: [address] [place] [address] Performed By: #### 5 8410-2 ####LYN LABORATORYCLIA [id number] [address] Nucleated RBC (Bld) [#/Vol] 10*3/uL Normal <0.01 [facility] Comment on above: Order Comment: Speci men Type: BLOOD SPECIMENOrdering Facility: [facility] Address: [address] [place] [address] Performed By: #### 5 8410-2 ####LYN LABORATORYCLIA [id number] [address] [place] Platelet mean volume (Bld) [Entitic vol] 10.8 fL Normal 9.0-12.7 [facility] Comment on above: Order Comment: Speci men Type: BLOOD SPECIMENOrdering Facility: [facility] Address: [address] [place] [address] Performed By: #### 5 8410-2 ####LYN LABORATORYCLIA [id number] [address] Platelets (Bld) [#/Vol] 260 10*3/uL Normal 150-400 [facility] Comment on above: Order Comment: Speci men Type: BLOOD SPECIMENOrdering Facility: [facility] Address: [address] [place] [address] Performed By: #### 5 8410-2 ####LYN LABORATORYCLIA [id number] [address] [place] RBC (Bld) [#/Vol] 4.11 10*6/uL Low 4.20-6.00 [facility] Comment on above: Order Comment: Speci men Type: BLOOD SPECIMENOrdering Facility: [facility] Address: [address] [facility] [place] [place] [address] Performed By: #### 5 8410-2 ####LYN LABORATORYCLIA [id number] [place] [address] [place] WBC (Bld) [#/Vol] 6.45 10*3/uL Normal 3.70-11.00 [facility] Comment on above: Order Comment: Speci men Type: BLOOD SPECIMENOrdering Facility: [facility] Address: [address] [place] [address] Performed By: #### 5 8410-2 ####LYN LABORATORYCLIA [id number] [address] [place] CONSULT PROGon 01-02-2023 CONSULT PRO Normal [facility] CONSULT PROG Normal [facility] Comprehensive metabolic 2000 panelon 01-02-2023 Albumin [Mass/Vol] 2.6 g/dL Low 3.9-4.9 [facility] Comment on above: Order Comment: Speci men Type: BLOOD SPECIMENOrdering Facility: [facility] Address: [place] [address] Performed By: #### 1 9123-9, 37939-4 ####LYN LABORATORYCLIA [id number] [address] [place] ALP [Catalytic activity/Vol] 53 U/L Normal 38-113 [facility] Comment on above: Order Comment: Speci men Type: BLOOD SPECIMENOrdering Facility: [facility] Address: [place] [address] Performed By: #### 1 9123-9, 53550-3 ####LYN LABORATORYCLIA [id number] [place] [address] [place] ALT [Catalytic activity/Vol] U/L Low 10-54 [facility] Comment on above: Order Comment: Speci men Type: BLOOD SPECIMENOrdering Facility: [facility] Address: [place] [address] Performed By: #### 1 9123-9, ####LYN LABORATORYCLIA [id number] [place] [address] [place] Anion gap [Moles/Vol] 9 mmol/L Normal 9-18 [facility] Comment on above: Order Comment: Speci men Type: BLOOD SPECIMENOrdering Facility: [facility] Address: [address] [place] [address] Performed By: #### 1 239, ####LYN LABORATORYCLIA [id number] [place] [address] [place] AST [Catalytic activity/Vol] 15 U/L Normal 14-40 [facility] Comment on above: Order Comment: Speci men Type: BLOOD SPECIMENOrdering Facility: [facility] Address: [address] [place] [address] Performed By: #### 1 239, ####LYN LABORATORYCLIA [id number] [place] [address] [place] Bilirubin [Mass/Vol] 0.7 mg/dL Normal 0.2-1.3 [facility] Comment on above: Order Comment: Speci men Type: BLOOD SPECIMENOrdering Facility: [facility] Address: [place] [address] Performed By: #### 1 239, ####LYN LABORATORYCLIA [id number] [address] [place] Calcium [Mass/Vol] 7.7 mg/dL Low 8.5-10.2 [facility] Comment on above: Order Comment: Speci men Type: BLOOD SPECIMENOrdering Facility: [facility] Address: [address] [place] [address] Performed By: #### 1 23-9, ####LYN LABORATORYCLIA [id number] [place] [address] [place] Chloride [Moles/Vol] 101 mmol/L Normal 97-105 [facility] Comment on above: Order Comment: Speci men Type: BLOOD SPECIMENOrdering Facility: [facility] Address: [address] [place] [address] Performed By: #### 1 23-9, 15381-9 ####LYN LABORATORYCLIA [id number] [place] [address] [place] CO2 [Moles/Vol] 25 mmol/L Normal 22-30 [facility] Comment on above: Order Comment: Speci regina Type: BLOOD SPECIMENOrdering Facility: [facility] Address: [address] [place] [address] Performed By: #### 1 9123-9, ####LYN LABORATORYCLIA [id number] [place] [address] [place] Creatinine [Mass/Vol] 0.73 mg/dL Normal 0.73-1.22 [facility] Comment on above: Order Comment: Greer tapia Type: BLOOD SPECIMENOrdering Facility: [facility] Address: [address] [place] [address] Performed By: #### 1 91239, ####LYN LABORATORYCLIA [id number] [address] Creatinine and Glomerular filtration rate.predicted panel (S/P/Bld) 95 mL/min/1.73m??? Normal >=60 [facility] Comment on above: Order Comment: Greer tapia Type: BLOOD SPECIMENOrdering Facility: [facility] Address: [address] [place] [address] Result Comment: Daiana mated Glomerular Filtration Rate [...] actual GFR. Performed By: #### 1 9123-9, 54882-2 ####LYN LABORATORYCLIA [id number] [place] [address] [place] Glucose [Mass/Vol] 101 mg/dL High 74-99 [facility] Comment on above: Order Comment: Greer tapia Type: BLOOD SPECIMENOrdering Facility: [facility] Address: [address] [place] [address] Result Comment: The [place] [employer] (ADA) provides guidance for cutoff [...] Standards of Medical Care in Diabetes 2016, [place] [employer]. Diabetes Care. 2016.39(Suppl 1). Performed By: #### 1 9123-9, ####LYN LABORATORYCLIA [id number] [place] [address] [place] Potassium [Moles/Vol] 3.6 mmol/L Low 3.7-5.1 [facility] Comment on above: Order Comment: Speci men Type: BLOOD SPECIMENOrdering Facility: [facility] Address: [address] [place] [address] Performed By: #### 1 239, ####LYN LABORATORYCLIA [id number] [place] [address] [place] Protein [Mass/Vol] 4.9 g/dL Low 6.3-8.0 [facility] Comment on above: Order Comment: Speci men Type: BLOOD SPECIMENOrdering Facility: [facility] Address: [address] [place] [address] Performed By: #### 1 9122-10, ####LYN LABORATORYCLIA [id number] [place] [address] [place] Sodium [Moles/Vol] 135 mmol/L Low 136-144 [facility] Comment on above: Order Comment: Speci men Type: BLOOD SPECIMENOrdering Facility: [facility] Address: [address] [place] [address] Performed By: #### 1 239, ####LYN LABORATORYCLIA [id number] [place] [address] [place] Urea nitrogen [Mass/Vol] 13 mg/dL Normal 9-24 [facility] Comment on above: Order Comment: Speci men Type: BLOOD SPECIMENOrdering Facility: [facility] Address: [place] [address] Performed By: #### 1 9123-9, 82649-6 ####LYN LABORATORYCLIA [id number] [place] [id number] [place] Magnesium SerPl-mCncon 01-02 Magnesium [Mass/Vol] 1.7 mg/dL Normal 1.7-2.3 [facility] Comment on above: Order Comment: Speci men Type: BLOOD SPECIMENOrdering Facility: [facility] Address: [address] [place] [address] Performed By: #### 1 9123-9, 18788-9 ####HUME LABORATORYCLIA [id number] [place] [address] [place] THERAPY NTon 01-02-2023 THERAPY NT Normal [facility] CASE MANAGEMon 01-01-2023 CASE MANAGEM Normal [facility] CBC panel Auto (Bld)on 01-01 Erythrocyte distribution width (RBC) [Ratio] 13.3 % Normal 11.5-15.0 [facility] Comment on above: Order Comment: Speci men Type: BLOOD SPECIMENOrdering Facility: [facility] Address: [place] [address] Performed By: #### 5 8410-2 ####LYN LABORATORYCLIA [id number] [place] [id number] [place] Hematocrit (Bld) [Volume fraction] 36.2 % Low 39.0-51.0 [facility] Comment on above: Order Comment: Speci men Type: BLOOD SPECIMENOrdering Facility: [facility] Address: [address] [place] [address] Performed By: #### 5 8410-2 ####LYN LABORATORYCLIA [id number] [place] [address] [place] Hemoglobin (Bld) [Mass/Vol] 12.3 g/dL Low 13.0-17.0 [facility] Comment on above: Order Comment: Speci men Type: BLOOD SPECIMENOrdering Facility: [facility] Address: [address] [place] [address] Performed By: #### 5 8410-2 ####LYN LABORATORYCLIA [id number] [address] MCH (RBC) [Entitic mass] 30.2 pg Normal 26.0-34.0 [facility] Comment on above: Order Comment: Speci men Type: BLOOD SPECIMENOrdering Facility: [facility] Address: [address] [place] [address] Performed By: #### 5 8410-2 ####LYN LABORATORYCLIA [id number] [address] MCHC (RBC) [Mass/Vol] 34.0 g/dL Normal 30.5-36.0 [facility] Comment on above: Order Comment: Speci men Type: BLOOD SPECIMENOrdering Facility: [facility] Address: [address] [place] [address] Performed By: #### 5 8410-2 ####LYN LABORATORYCLIA [id number] [address] MCV (RBC) [Entitic vol] 88.9 fL Normal 80.0-100.0 [facility] Comment on above: Order Comment: Speci men Type: BLOOD SPECIMENOrdering Facility: [facility] Address: [address] [place] [address] Performed By: #### 5 8410-2 ####LYN LABORATORYCLIA [id number] [address] Nucleated RBC (Bld) [#/Vol] 10*3/uL Normal <0.01 [facility] Comment on above: Order Comment: Speci men Type: BLOOD SPECIMENOrdering Facility: [facility] Address: [address] [place] [address] Performed By: #### 5 8410-2 ####LYN LABORATORYCLIA [id number] [address] Platelet mean volume (Bld) [Entitic vol] 11.5 fL Normal 9.0-12.7 [facility] Comment on above: Order Comment: Speci men Type: BLOOD SPECIMENOrdering Facility: [facility] Address: [address] [facility] [place] [address] Performed By: #### 5 8410-2 ####LYN LABORATORYCLIA [id number] [address] [place] Platelets (Bld) [#/Vol] 244 10*3/uL Normal 150-400 [facility] Comment on above: Order Comment: Speci men Type: BLOOD SPECIMENOrdering Facility: [facility] Address: [address] [facility] [address] Performed By: #### 5 8410-2 ####LYN LABORATORYCLIA [id number] [place] [address] [place] RBC (Bld) [#/Vol] 4.07 10*6/uL Low 4.20-6.00 [facility] Comment on above: Order Comment: Speci men Type: BLOOD SPECIMENOrdering Facility: [facility] Address: [place] [address] Performed By: #### 5 8410-2 ####[facility] LABORATORYCLIA [id number] [place] [address] [place] WBC (Bld) [#/Vol] 11.75 10*3/uL High 3.70-11.00 [facility] Comment on above: Order Comment: Speci men Type: BLOOD SPECIMENOrdering Facility: [facility] Address: [place] [address] Performed By: #### 5 8410-2 ####LYN LABORATORYCLIA [id number] [address] [place] CONSULT PROGon 01-01-2023 CONSULT PROG Normal [facility] CONSULT PROG Normal [facility] Comprehensive metabolic 2000 panelon 01-01-2023 Albumin [Mass/Vol] 2.4 g/dL Low 3.9-4.9 [facility] Comment on above: Order Comment: Speci men Type: BLOOD SPECIMENOrdering Facility: [facility] Address: [place] [address] Performed By: #### 1 9123-9, 48386-6 ####LYN LABORATORYCLIA [id number] [address] ALP [Catalytic activity/Vol] 61 U/L Normal 38-113 [facility] Comment on above: Order Comment: Speci men Type: BLOOD SPECIMENOrdering Facility: [facility] Address: [address] [place] [address] Performed By: #### 1 23-9, 72842-4 ####LYN LABORATORYCLIA [id number] [place] [address] [place] ALT [Catalytic activity/Vol] U/L Low 10-54 [facility] Comment on above: Order Comment: Speci men Type: BLOOD SPECIMENOrdering Facility: [facility] Address: [address] [place] [address] Performed By: #### 1 23-9, 42496-4 ####LYN LABORATORYCLIA [id number] [address] [place] Anion gap [Moles/Vol] 5 mmol/L Low 9-18 [facility] Comment on above: Order Comment: Speci men Type: BLOOD SPECIMENOrdering Facility: [facility] Address: [address] [place] [address] Performed By: #### 1 23-9, 60947-7 ####LYN LABORATORYCLIA [id number] [address] [place] AST [Catalytic activity/Vol] 15 U/L Normal 14-40 [facility] Comment on above: Order Comment: Speci men Type: BLOOD SPECIMENOrdering Facility: [facility] Address: [address] [place] [address] Performed By: #### 1 9123-9, 01723-9 ####LYN LABORATORYCLIA [id number] [address] Bilirubin [Mass/Vol] 0.6 mg/dL Normal 0.2-1.3 [facility] Comment on above: Order Comment: Speci men Type: BLOOD SPECIMENOrdering Facility: [facility] Address: [address] [place] [address] Performed By: #### 1 23-9, ####LYN LABORATORYCLIA [id number] [place] [address] [place] Calcium [Mass/Vol] 7.7 mg/dL Low 8.5-10.2 [facility] Comment on above: Order Comment: Speci men Type: BLOOD SPECIMENOrdering Facility: [facility] Address: [address] [place] [address] Performed By: #### 1 239, ####LYN LABORATORYCLIA [id number] [place] [address] [place] Chloride [Moles/Vol] 103 mmol/L Normal 97-105 [facility] Comment on above: Order Comment: Speci men Type: BLOOD SPECIMENOrdering Facility: [facility] Address: [address] [place] [address] Performed By: #### 1 239, ####LYN LABORATORYCLIA [id number] [place] [address] [place] CO2 [Moles/Vol] 28 mmol/L Normal 22-30 [facility] Comment on above: Order Comment: Speci men Type: BLOOD SPECIMENOrdering Facility: [facility] Address: [facility] [place] [address] Performed By: #### 1 239, ####LYN LABORATORYCLIA [id number] [place] [address] [place] Creatinine [Mass/Vol] 0.82 mg/dL Normal 0.73-1.22 [facility] Comment on above: Order Comment: Speci men Type: BLOOD SPECIMENOrdering Facility: [facility] Address: [address] [place] [address] Performed By: #### 1 23-9, ####LYN LABORATORYCLIA [id number] [address] [place] Creatinine and Glomerular filtration rate.predicted panel (S/P/Bld) 92 mL/min/1.73m??? Normal >=60 [facility] Comment on above: Order Comment: Speci men Type: BLOOD SPECIMENOrdering Facility: [facility] Address: [place] [address] Result Comment: Daiana mated Glomerular Filtration Rate [...] actual GFR. Performed By: #### 1 9123-9, 75027-2 ####HUME LABORATORYCLIA [id number] [place] [id number] [place] Glucose [Mass/Vol] 104 mg/dL High 74-99 [facility] Comment on above: Order Comment: Greer tapia Type: BLOOD SPECIMENOrdering Facility: [facility] Address: [address] [place] [address] Result Comment: The [place] [employer] (ADA) provides guidance for cutoff [...] Standards of Medical Care in Diabetes 2016, [place] [employer]. Diabetes Care. 2016.39(Suppl 1). Performed By: #### 1 9123-9, 86766-7 ####HUME LABORATORYCLIA [id number] [place] [address] [place] Potassium [Moles/Vol] 3.9 mmol/L Normal 3.7-5.1 [facility] Comment on above: Order Comment: Greer tapia Type: BLOOD SPECIMENOrdering Facility: [facility] Address: [address] [place] [id number] Performed By: #### 1 9123-9, 16399-1 ####LYN LABORATORYCLIA [id number] [place] [address] [place] Protein [Mass/Vol] 4.7 g/dL Low 6.3-8.0 [facility] Comment on above: Order Comment: Speci men Type: BLOOD SPECIMENOrdering Facility: [facility] Address: [address] [place] [address] Performed By: #### 1 9123-9, 74540-7 ####LYN LABORATORYCLIA [id number] [place] [address] [place] Sodium [Moles/Vol] 136 mmol/L Normal 136-144 [facility] Comment on above: Order Comment: Speci men Type: BLOOD SPECIMENOrdering Facility: [facility] Address: [address] [place] [address] Performed By: #### 1 9123-9, ####LYN LABORATORYCLIA [id number] [place] [address] [place] Urea nitrogen [Mass/Vol] 9 mg/dL Normal 9-24 [facility] Comment on above: Order Comment: Speci men Type: BLOOD SPECIMENOrdering Facility: [facility] Address: [address] [place] [address] Performed By: #### 1 9123-9, 31425-5 ####LYN LABORATORYCLIA [id number] [place] [address] [place] Magnesium SerPl-mCncon 01-01 Magnesium [Mass/Vol] 1.9 mg/dL Normal 1.7-2.3 [facility] Comment on above: Order Comment: Speci men Type: BLOOD SPECIMENOrdering Facility: [facility] Address: [address] [place] [address] Performed By: #### 1 9123-9, 32804-2 ####LYN LABORATORYCLIA [id number] [place] [address] [place] THERAPY NTon 01-01-2023 THERAPY NT [facility] ALLIED HEALTHon 12-31-2022 ALLIED HEALTH [facility] CASE MANAGEMon 12-31-2022 CASE MANAGEM [facility] CBC panel Auto (Bld)on 12-31 Erythrocyte distribution width (RBC) [Ratio] 13.0 % Normal 11.5-15.0 [facility] Comment on above: Order Comment: Speci men Type: BLOOD SPECIMENOrdering Facility: [facility] Address: [address] [place] [address] Performed By: #### 5 8410-2 ####LYN LABORATORYCLIA [id number] [address] Hematocrit (Bld) [Volume fraction] 38.5 % Low 39.0-51.0 [facility] Comment on above: Order Comment: Speci men Type: BLOOD SPECIMENOrdering Facility: [facility] Address: [address] [place] [address] Performed By: #### 5 8410-2 ####LYN LABORATORYCLIA [id number] [address] OF [facility] Hemoglobin (Bld) [Mass/Vol] 12.8 g/dL Low 13.0-17.0 [facility] Comment on above: Order Comment: Speci men Type: BLOOD SPECIMENOrdering Facility: [facility] Address: [address] [place] [address] Performed By: #### 5 8410-2 ####LYN LABORATORYCLIA [id number] [address] MCH (RBC) [Entitic mass] 29.9 pg Normal 26.0-34.0 [facility] Comment on above: Order Comment: Speci men Type: BLOOD SPECIMENOrdering Facility: [facility] Address: [address] [place] [address] Performed By: #### 5 8410-2 ####LYN LABORATORYCLIA [id number] [address] MCHC (RBC) [Mass/Vol] 33.2 g/dL Normal 30.5-36.0 [facility] Comment on above: Order Comment: Speci men Type: BLOOD SPECIMENOrdering Facility: [facility] Address: [address] [place] [address] Performed By: #### 5 8410-2 ####LYN LABORATORYCLIA [id number] [place] [address] [place] MCV (RBC) [Entitic vol] 90.0 fL Normal 80.0-100.0 [facility] Comment on above: Order Comment: Speci men Type: BLOOD SPECIMENOrdering Facility: [facility] Address: [address] [place] [address] Performed By: #### 5 8410-2 ####LYN LABORATORYCLIA [id number] [place] [address] [place] Nucleated RBC (Bld) [#/Vol] 10*3/uL Normal <0.01 [facility] Comment on above: Order Comment: Speci men Type: BLOOD SPECIMENOrdering Facility: [facility] Address: [address] [place] [address] Performed By: #### 5 8410-2 ####LYN LABORATORYCLIA [id number] [place] [address] [place] Platelet mean volume (Bld) [Entitic vol] 11.4 fL Normal 9.0-12.7 [facility] Comment on above: Order Comment: Speci men Type: BLOOD SPECIMENOrdering Facility: [facility] Address: [address] [place] [address] Performed By: #### 5 8410-2 ####LYN LABORATORYCLIA [id number] [place] [address] [place] Platelets (Bld) [#/Vol] 248 10*3/uL Normal 150-400 [facility] Comment on above: Order Comment: Speci men Type: BLOOD SPECIMENOrdering Facility: [facility] Address: [address] [place] [address] Performed By: #### 5 8410-2 ####LYN LABORATORYCLIA [id number] [place] [address] [place] RBC (Bld) [#/Vol] 4.28 10*6/uL Normal 4.20-6.00 [facility] Comment on above: Order Comment: Speci men Type: BLOOD SPECIMENOrdering Facility: [facility] Address: [address] [place] [address] Performed By: #### 5 8410-2 ####LYN LABORATORYCLIA [id number] [place] [address] [place] WBC (Bld) [#/Vol] 11.75 10*3/uL High 3.70-11.00 [facility] Comment on above: Order Comment: Speci men Type: BLOOD SPECIMENOrdering Facility: [facility] Address: [address] [place] [address] Performed By: #### 5 8410-2 ####HUME LABORATORYCLIA [id number] [address] [place] Comprehensive metabolic 2000 panelon 12-31-2022 Albumin [Mass/Vol] 2.8 g/dL Low 3.9-4.9 [facility] Comment on above: Order Comment: Speci men Type: BLOOD SPECIMENOrdering Facility: [facility] Address: [address] [place] [address] Performed By: #### 1 9123-9, 41747-3 ####HUME LABORATORYCLIA [id number] [address] [place] ALP [Catalytic activity/Vol] 59 U/L Normal 38-113 [facility] Comment on above: Order Comment: Speci men Type: BLOOD SPECIMENOrdering Facility: [facility] Address: [address] [place] [address] Performed By: #### 1 9123-9, 75369-4 ####LYN LABORATORYCLIA [id number] [address] [place] ALT [Catalytic activity/Vol] U/L Low 10-54 [facility] Comment on above: Order Comment: Speci men Type: BLOOD SPECIMENOrdering Facility: [facility] Address: [address] [place] [address] Performed By: #### 1 9123-9, 32421-5 ####LYN LABORATORYCLIA [id number] [address] Anion gap [Moles/Vol] 8 mmol/L Low 9-18 [facility] Comment on above: Order Comment: Speci men Type: BLOOD SPECIMENOrdering Facility: [facility] Address: [address] [place], [place] [address] Performed By: #### 1 23-9, ####LYN LABORATORYCLIA [id number] [place] [address] [place] AST [Catalytic activity/Vol] 14 U/L Normal 14-40 [facility] Comment on above: Order Comment: Speci men Type: BLOOD SPECIMENOrdering Facility: [facility] Address: [address] [place] [address] Performed By: #### 1 239, ####LYN LABORATORYCLIA [id number] [place] [address] [place] Bilirubin [Mass/Vol] 0.7 mg/dL Normal 0.2-1.3 [facility] Comment on above: Order Comment: Speci men Type: BLOOD SPECIMENOrdering Facility: [facility] Address: [address] [place] [address] Performed By: #### 1 239, ####LYN LABORATORYCLIA [id number] [place] [address] [place] Calcium [Mass/Vol] 7.9 mg/dL Low 8.5-10.2 [facility] Comment on above: Order Comment: Speci men Type: BLOOD SPECIMENOrdering Facility: [facility] Address: [address] [place] [address] Performed By: #### 1 239, ####LYN LABORATORYCLIA [id number] [place] [address] [place] Chloride [Moles/Vol] 104 mmol/L Normal 97-105 [facility] Comment on above: Order Comment: Speci men Type: BLOOD SPECIMENOrdering Facility: [facility] Address: [address] [place] [address] Performed By: #### 1 23-9, ####LYN LABORATORYCLIA [id number] [place] [address] [place] CO2 [Moles/Vol] 27 mmol/L Normal 22-30 [facility] Comment on above: Order Comment: Speci men Type: BLOOD SPECIMENOrdering Facility: [facility] Address: [address] [facility] [place] [address] Performed By: #### 1 9123-9, 46753-6 ####LYN LABORATORYCLIA [id number] [place] [address] [place] [facility] Creatinine [Mass/Vol] 0.78 mg/dL Normal 0.73-1.22 [facility] Comment on above: Order Comment: Greer tapia Type: BLOOD SPECIMENOrdering Facility: [facility] Address: [place] [address] Performed By: #### 1 9123-9, ####LYN LABORATORYCLIA [id number] [address] Creatinine and Glomerular filtration rate.predicted panel (S/P/Bld) 94 mL/min/1.73m??? Normal >=60 [facility] Comment on above: Order Comment: Greer tapia Type: BLOOD SPECIMENOrdering Facility: [facility] Address: [address] [place] [address] Result Comment: Daiana mated Glomerular Filtration Rate [...] Performed By: #### 1 9123-9, ####LYN LABORATORYCLIA [id number] [place] [id number] [place] Glucose [Mass/Vol] 140 mg/dL High 74-99 [facility] Comment on above: Order Comment: Greer tpaia Type: BLOOD SPECIMENOrdering Facility: [facility] Address: [address] [place] [address] Result Comment: The [place] [employer] (ADA) provides guidance for cutoff [...] Standards of Medical Care in Diabetes 2016, [place] [employer]. Diabetes Care. 2016.39(Suppl 1). Performed By: #### 1 239, ####LYN LABORATORYCLIA [id number] [place] [address] [place] Potassium [Moles/Vol] 3.6 mmol/L Low 3.7-5.1 [facility] Comment on above: Order Comment: Greer tapia Type: BLOOD SPECIMENOrdering Facility: [facility] Address: [address] [place] [address] Performed By: #### 1 9122-10, ####LYN LABORATORYCLIA [id number] [place] [address] [place] Protein [Mass/Vol] 5.0 g/dL Low 6.3-8.0 [facility] Comment on above: Order Comment: Greer tapia Type: BLOOD SPECIMENOrdering Facility: [facility] Address: [address] [place] [address] Performed By: #### 1 9122-10, ####LYN LABORATORYCLIA [id number] [address] [place] Sodium [Moles/Vol] 139 mmol/L Normal 136-144 [facility] Comment on above: Order Comment: Greer tapia Type: BLOOD SPECIMENOrdering Facility: [facility] Address: [address] [place] [address] Performed By: #### 1 9122-10, ####LYN LABORATORYCLIA [id number] [place] [address] [place] Urea nitrogen [Mass/Vol] 11 mg/dL Normal 9-24 [facility] Comment on above: Order Comment: Greer tapia Type: BLOOD SPECIMENOrdering Facility: [facility] Address: [address] [place] [address] Performed By: #### 1 9122-10, ####LYN LABORATORYCLIA [id number] [place] [address] [place] Magnesium SerPl-mCncon 12-31 Magnesium [Mass/Vol] 1.6 mg/dL Low 1.7-2.3 [facility] Comment on above: Order Comment: Speci men Type: BLOOD SPECIMENOrdering Facility: [facility] Address: [address] [place] [address] Performed By: #### 1 9123-9, 74360-9 ####LYN LABORATORYCLIA [id number] [place] [address] [place] NURSING PROGon 12-31-2022 NURSING PROG Normal [facility] THERAPY NTon 12-31-2022 THERAPY NT Normal [facility] THERAPY NT Normal [facility] CASE MANAGEMon 12-30-2022 CASE MANAGEM Normal [facility] CBC panel Auto (Bld)on 12-30 Erythrocyte distribution width (RBC) [Ratio] 13.2 % Normal 11.5-15.0 [facility] Comment on above: Order Comment: Speci men Type: BLOOD SPECIMENOrdering Facility: [facility] Address: [address] [place] [address] Performed By: #### 5 8410-2 ####LYN LABORATORYCLIA [id number] [address] [place] Hematocrit (Bld) [Volume fraction] 43.6 % Normal 39.0-51.0 [facility] Comment on above: Order Comment: Speci men Type: BLOOD SPECIMENOrdering Facility: [facility] Address: [address] [place] [address] Performed By: #### 5 8410-2 ####LYN LABORATORYCLIA [id number] [place] [id number] [place] Hemoglobin (Bld) [Mass/Vol] 14.2 g/dL Normal 13.0-17.0 [facility] Comment on above: Order Comment: Speci men Type: BLOOD SPECIMENOrdering Facility: [facility] Address: [address] [place] [address] Performed By: #### 5 8410-2 ####LYN LABORATORYCLIA [id number] [address] MCH (RBC) [Entitic mass] 30.1 pg Normal 26.0-34.0 [facility] Comment on above: Order Comment: Speci men Type: BLOOD SPECIMENOrdering Facility: [facility] Address: [address] [place] [address] Performed By: #### 5 8410-2 ####LYN LABORATORYCLIA [id number] [address] MCHC (RBC) [Mass/Vol] 32.6 g/dL Normal 30.5-36.0 [facility] Comment on above: Order Comment: Speci men Type: BLOOD SPECIMENOrdering Facility: [facility] Address: [address] [place] [address] Performed By: #### 5 8410-2 ####LYN LABORATORYCLIA [id number] [address] MCV (RBC) [Entitic vol] 92.4 fL Normal 80.0-100.0 [facility] Comment on above: Order Comment: Speci men Type: BLOOD SPECIMENOrdering Facility: [facility] Address: [address] [place] [address] Performed By: #### 5 8410-2 ####LYN LABORATORYCLIA [id number] [address] Nucleated RBC (Bld) [#/Vol] 10*3/uL Normal <0.01 [facility] Comment on above: Order Comment: Speci men Type: BLOOD SPECIMENOrdering Facility: [facility] Address: [address] [place] [address] Performed By: #### 5 8410-2 ####LYN LABORATORYCLIA [id number] [address] Platelet mean volume (Bld) [Entitic vol] 11.5 fL Normal 9.0-12.7 [facility] Comment on above: Order Comment: Speci men Type: BLOOD SPECIMENOrdering Facility: [facility] Address: [address] [place] [address] Performed By: #### 5 8410-2 ####LYN LABORATORYCLIA [id number] [address] [place] Platelets (Bld) [#/Vol] 231 10*3/uL Normal 150-400 [facility] Comment on above: Order Comment: Speci men Type: BLOOD SPECIMENOrdering Facility: [facility] Address: [address] [place] [address] Performed By: #### 5 8410-2 ####LYN LABORATORYCLIA [id number] [place] [address] [place] RBC (Bld) [#/Vol] 4.72 10*6/uL Normal 4.20-6.00 [facility] Comment on above: Order Comment: Speci men Type: BLOOD SPECIMENOrdering Facility: [facility] Address: [address] [place] [address] Performed By: #### 5 8410-2 ####HUME LABORATORYCLIA [id number] [address] STATES OF [facility] WBC (Bld) [#/Vol] 11.83 10*3/uL High 3.70-11.00 [facility] Comment on above: Order Comment: Speci men Type: BLOOD SPECIMENOrdering Facility: [facility] Address: [address] [place] [address] Performed By: #### 5 8410-2 ####HUME LABORATORYCLIA [id number] [address] [place] CONSULT PROGon 12-30-2022 CONSULT PROG Normal [facility] Comprehensive metabolic 2000 panelon 12-30-2022 Albumin [Mass/Vol] 2.9 g/dL Low 3.9-4.9 [facility] Comment on above: Order Comment: Speci men Type: BLOOD SPECIMENOrdering Facility: [facility] Address: [address] [place] [address] Performed By: #### 2 4323-8, 40665-2 ####HUME LABORATORYCLIA [id number] [address] [place] ALP [Catalytic activity/Vol] 63 U/L Normal 38-113 [facility] Comment on above: Order Comment: Speci men Type: BLOOD SPECIMENOrdering Facility: [facility] Address: [address] [place] [address] Performed By: #### 2 8, ####LYN LABORATORYCLIA [id number] [place] [address] [place] ALT [Catalytic activity/Vol] U/L Low 10-54 [facility] Comment on above: Order Comment: Speci men Type: BLOOD SPECIMENOrdering Facility: [facility] Address: [address] [place] [address] Performed By: #### 2 8, ####LYN LABORATORYCLIA [id number] [place] [address] [place] Anion gap [Moles/Vol] 10 mmol/L Normal 9-18 [facility] Comment on above: Order Comment: Speci men Type: BLOOD SPECIMENOrdering Facility: [facility] Address: [address] [place] [address] Performed By: #### 2 4322-09, ####LYN LABORATORYCLIA [id number] [place] [address] [place] AST [Catalytic activity/Vol] 10 U/L Low 14-40 [facility] Comment on above: Order Comment: Speci men Type: BLOOD SPECIMENOrdering Facility: [facility] Address: [address] [place] [address] Performed By: #### 2 4322-09, ####LYN LABORATORYCLIA [id number] [place] [address] [place] Bilirubin [Mass/Vol] 0.6 mg/dL Normal 0.2-1.3 [facility] Comment on above: Order Comment: Speci men Type: BLOOD SPECIMENOrdering Facility: [facility] Address: [address] [place] [address] Performed By: #### 2 43204-24, ####LYN LABORATORYCLIA [id number] [place] [address] [place] Calcium [Mass/Vol] 7.9 mg/dL Low 8.5-10.2 [facility] Comment on above: Order Comment: Speci men Type: BLOOD SPECIMENOrdering Facility: [facility] Address: [address] [place] [address] Performed By: #### 2 4323-8, ####LYN LABORATORYCLIA [id number] [place] [address] [place] Chloride [Moles/Vol] 101 mmol/L Normal 97-105 [facility] Comment on above: Order Comment: Speci men Type: BLOOD SPECIMENOrdering Facility: [facility] Address: [address] [place] [address] Performed By: #### 2 4323-8, ####LYN LABORATORYCLIA [id number] [place] [address] [place] CO2 [Moles/Vol] 26 mmol/L Normal 22-30 [facility] Comment on above: Order Comment: Speci men Type: BLOOD SPECIMENOrdering Facility: [facility] Address: [address] [place] [address] Performed By: #### 2 4323-8, ####LYN LABORATORYCLIA [id number] [place] [address] [place] Creatinine [Mass/Vol] 0.60 mg/dL Low 0.73-1.22 [facility] Comment on above: Order Comment: Speci men Type: BLOOD SPECIMENOrdering Facility: [facility] Address: [address] [place] [address] Performed By: #### 2 4323-8, ####LYN LABORATORYCLIA [id number] [place] [address] [facility] [place] Creatinine and Glomerular filtration rate.predicted panel (S/P/Bld) 101 mL/min/1.73m??? Normal >=60 [facility] Comment on above: Order Comment: Speci men Type: BLOOD SPECIMENOrdering Facility: [facility] Address: [address] [place] [address] Result Comment: Daiana mated Glomerular Filtration Rate [...] Performed By: #### 2 43204-24, ####LYN LABORATORYCLIA [id number] [place] [address] [place] Glucose [Mass/Vol] 102 mg/dL High 74-99 [facility] Comment on above: Order Comment: Greer men Type: BLOOD SPECIMENOrdering Facility: [facility] Address: [address] [place] [address] Result Comment: The [place] [employer] (ADA) provides guidance for cutoff [...] Standards of Medical Care in Diabetes 2016, [place] [employer]. Diabetes Care. 2016.39(Suppl 1). Performed By: #### 2 4322-09, ####LYN LABORATORYCLIA [id number] [place] [address] [place] Potassium [Moles/Vol] 3.4 mmol/L Low 3.7-5.1 [facility] Comment on above: Order Comment: Greer tapia Type: BLOOD SPECIMENOrdering Facility: [facility] Address: [address] [place] [address] Performed By: #### 2 4322-09, ####LYN LABORATORYCLIA [id number] [place] [address] [place] Protein [Mass/Vol] 5.2 g/dL Low 6.3-8.0 [facility] Comment on above: Order Comment: Greer tapia Type: BLOOD SPECIMENOrdering Facility: [facility] Address: [place] [id number] Performed By: #### 2 4323-8, ####LYN LABORATORYCLIA [id number] [place] [address] [place] Sodium [Moles/Vol] 137 mmol/L Normal 136-144 [facility] Comment on above: Order Comment: Speci men Type: BLOOD SPECIMENOrdering Facility: [facility] Address: [place] [address] Performed By: #### 2 4323-8, ####LYN LABORATORYCLIA [id number] [place] [id number] [place] Urea nitrogen [Mass/Vol] 13 mg/dL Normal 9-24 [facility] Comment on above: Order Comment: Speci men Type: BLOOD SPECIMENOrdering Facility: [facility] Address: [place] [address] Performed By: #### 2 4323-8, ####LYN LABORATORYCLIA [id number] [place] [id number] [place] Magnesium SerPl-mCncon 12-30 Magnesium [Mass/Vol] 1.9 mg/dL Normal 1.7-2.3 [facility] Comment on above: Order Comment: Speci men Type: BLOOD SPECIMENOrdering Facility: [facility] Address: [address] [facility] [place] [address] Performed By: #### 2 4323-8, ####LYN LABORATORYCLIA [id number] [place] [id number] [place] NUTRITIONon 12-30-2022 NUTRITION Normal [facility] THERAPY NTon 12-30-2022 THERAPY NT Normal [facility] THERAPY NT Normal [facility] THERAPY NT Normal [facility] THERAPY NT Normal [facility] THERAPY NT Normal [facility] CBC panel Auto (Bld)on 12-29 Erythrocyte distribution width (RBC) [Ratio] 13.0 % Normal 11.5-15.0 [facility] Comment on above: Order Comment: Speci men Type: BLOOD SPECIMENOrdering Facility: [facility] Address: [address] [place] [address] Performed By: #### 5 8410-2 ####LYN LABORATORYCLIA [id number] [address] Hematocrit (Bld) [Volume fraction] 41.9 % Normal 39.0-51.0 [facility] Comment on above: Order Comment: Speci men Type: BLOOD SPECIMENOrdering Facility: [facility] Address: [address] [place] [address] Performed By: #### 5 8410-2 ####LYN LABORATORYCLIA [id number] [address] Hemoglobin (Bld) [Mass/Vol] 13.9 g/dL Normal 13.0-17.0 [facility] Comment on above: Order Comment: Speci men Type: BLOOD SPECIMENOrdering Facility: [facility] Address: [address] [place] [address] Performed By: #### 5 8410-2 ####LYN LABORATORYCLIA [id number] [address] MCH (RBC) [Entitic mass] 29.8 pg Normal 26.0-34.0 [facility] Comment on above: Order Comment: Speci men Type: BLOOD SPECIMENOrdering Facility: [facility] Address: [address] [place] [address] Performed By: #### 5 8410-2 ####LYN LABORATORYCLIA [id number] [address] MCHC (RBC) [Mass/Vol] 33.2 g/dL Normal 30.5-36.0 [facility] Comment on above: Order Comment: Speci men Type: BLOOD SPECIMENOrdering Facility: [facility] Address: [address] [place] [address] Performed By: #### 5 8410-2 ####LYN LABORATORYCLIA [id number] [address] MCV (RBC) [Entitic vol] 89.9 fL Normal 80.0-100.0 [facility] Comment on above: Order Comment: Speci men Type: BLOOD SPECIMENOrdering Facility: [facility] Address: [address] [place] [address] Performed By: #### 5 8410-2 ####LYN LABORATORYCLIA [id number] [place] [address] [place] Nucleated RBC (Bld) [#/Vol] 10*3/uL Normal <0.01 [facility] Comment on above: Order Comment: Speci men Type: BLOOD SPECIMENOrdering Facility: [facility] Address: [address] [place] [address] Performed By: #### 5 8410-2 ####LYN LABORATORYCLIA [id number] [place] [address] [place] Platelet mean volume (Bld) [Entitic vol] 10.6 fL Normal 9.0-12.7 [facility] Comment on above: Order Comment: Speci men Type: BLOOD SPECIMENOrdering Facility: [facility] Address: [address] [place] [address] Performed By: #### 5 8410-2 ####LYN LABORATORYCLIA [id number] [place] [address] [place] Platelets (Bld) [#/Vol] 254 10*3/uL Normal 150-400 [facility] Comment on above: Order Comment: Speci men Type: BLOOD SPECIMENOrdering Facility: [facility] Address: [address] [place] [address] Performed By: #### 5 8410-2 ####LYN LABORATORYCLIA [id number] [place] [address] [place] RBC (Bld) [#/Vol] 4.66 10*6/uL Normal 4.20-6.00 [facility] Comment on above: Order Comment: Speci men Type: BLOOD SPECIMENOrdering Facility: [facility] Address: [address] [place] [address] Performed By: #### 5 8410-2 ####LYN LABORATORYCLIA [id number] [place] [address] [place] WBC (Bld) [#/Vol] 10.98 10*3/uL Normal 3.70-11.00 [facility] Comment on above: Order Comment: Speci men Type: BLOOD SPECIMENOrdering Facility: [facility] Address: [address] [place] [place] [address] Performed By: #### 5 8410-2 ####LYN LABORATORYCLIA [id number] [place] [address] [place] CONSULT PROGon 12-29-2022 CONSULT PROG Normal [facility] Comprehensive metabolic 2000 panelon 12-29-2022 Albumin [Mass/Vol] 2.6 g/dL Low 3.9-4.9 [facility] Comment on above: Order Comment: Speci men Type: BLOOD SPECIMENOrdering Facility: [facility] Address: [address] [place] [address] Performed By: #### 2 432-8, ####LYN LABORATORYCLIA [id number] [place] [address] [place] ALP [Catalytic activity/Vol] 56 U/L Normal 38-113 [facility] Comment on above: Order Comment: Speci men Type: BLOOD SPECIMENOrdering Facility: [facility] Address: [address] [place] [address] Performed By: #### 2 4323-8, ####LYN LABORATORYCLIA [id number] [place] [address] [place] ALT [Catalytic activity/Vol] U/L Low 10-54 [facility] Comment on above: Order Comment: Speci men Type: BLOOD SPECIMENOrdering Facility: [facility] Address: [address] [place] [address] Performed By: #### 2 4328, ####LYN LABORATORYCLIA [id number] [place] [address] [place] Anion gap [Moles/Vol] 6 mmol/L Low 9-18 [facility] Comment on above: Order Comment: Speci men Type: BLOOD SPECIMENOrdering Facility: [facility] Address: [address] [place] [address] Performed By: #### 2 4323-8, ####LYN LABORATORYCLIA [id number] [place] [address] [place] AST [Catalytic activity/Vol] 6 U/L Low 14-40 [facility] Comment on above: Order Comment: Speci men Type: BLOOD SPECIMENOrdering Facility: [facility] Address: [address] [place] [address] Performed By: #### 2 4328, ####LYN LABORATORYCLIA [id number] [place] [address] [place] Bilirubin [Mass/Vol] 0.5 mg/dL Normal 0.2-1.3 [facility] Comment on above: Order Comment: Speci men Type: BLOOD SPECIMENOrdering Facility: [facility] Address: [address] [place] [address] Performed By: #### 2 8, ####LYN LABORATORYCLIA [id number] [place] [address] [place] Calcium [Mass/Vol] 7.8 mg/dL Low 8.5-10.2 [facility] Comment on above: Order Comment: Speci men Type: BLOOD SPECIMENOrdering Facility: [facility] Address: [address] [place] [address] Performed By: #### 2 8, ####LYN LABORATORYCLIA [id number] [place] [address] [place] Chloride [Moles/Vol] 106 mmol/L High 97-105 [facility] Comment on above: Order Comment: Speci men Type: BLOOD SPECIMENOrdering Facility: [facility] Address: [address] [place] [address] Performed By: #### 2 4322-8, ####LYN LABORATORYCLIA [id number] [place] [address] [place] CO2 [Moles/Vol] 27 mmol/L Normal 22-30 [facility] Comment on above: Order Comment: Speci men Type: BLOOD SPECIMENOrdering Facility: [facility] Address: [address] [place] [address] Performed By: #### 2 4322-8, ####LYN LABORATORYCLIA [id number] [place] [id number] [place] Creatinine [Mass/Vol] 0.85 mg/dL Normal 0.73-1.22 [facility] Comment on above: Order Comment: Greer tapia Type: BLOOD SPECIMENOrdering Facility: [facility] Address: [address] [place] [address] Performed By: #### 2 4323-8, ####LYN LABORATORYCLIA [id number] [place] [id number] [place] Creatinine and Glomerular filtration rate.predicted panel (S/P/Bld) 91 mL/min/1.73m??? Normal >=60 [facility] Comment on above: Order Comment: Greer tapia Type: BLOOD SPECIMENOrdering Facility: [facility] Address: [address] [place] [address] Result Comment: Daiana mated Glomerular Filtration Rate [...] Performed By: #### 2 4323-8, ####RIKI LABORATORYCLIA [id number] [place] [id number] [place] Glucose [Mass/Vol] 133 mg/dL High 74-99 [facility] Comment on above: Order Comment: Greer tapia Type: BLOOD SPECIMENOrdering Facility: [facility] Address: [address] [place] [address] Result Comment: The [place] [employer] (ADA) provides guidance for cutoff [...] Standards of Medical Care in Diabetes 2016, [place] [employer]. Diabetes Care. 2016.39(Suppl 1). Performed By: #### 2 4322-09, ####LYN LABORATORYCLIA [id number] [place] [address] [place] Potassium [Moles/Vol] 3.3 mmol/L Low 3.7-5.1 [facility] Comment on above: Order Comment: Greer tapia Type: BLOOD SPECIMENOrdering Facility: [facility] Address: [address] [place] [address] Performed By: #### 2 4322-09, ####LYN LABORATORYCLIA [id number] [address] [place] Protein [Mass/Vol] 4.7 g/dL Low 6.3-8.0 [facility] Comment on above: Order Comment: Greer tapia Type: BLOOD SPECIMENOrdering Facility: [facility] Address: [address] [place] [address] Performed By: #### 2 4322-09, ####LYN LABORATORYCLIA [id number] [address] [place] Sodium [Moles/Vol] 139 mmol/L Normal 136-144 [facility] Comment on above: Order Comment: Greer tapia Type: BLOOD SPECIMENOrdering Facility: [facility] Address: [address] [place] [address] Performed By: #### 2 4322-09, ####LYN LABORATORYCLIA [id number] [address] [place] Urea nitrogen [Mass/Vol] 17 mg/dL Normal 9-24 [facility] Comment on above: Order Comment: Greer tapia Type: BLOOD SPECIMENOrdering Facility: [facility] Address: [address] [place] [address] Performed By: #### 2 4322-09, ####LYN LABORATORYCLIA [id number] [place] [id number] [place] Magnesium SerPl-mCncon 12-29 Magnesium [Mass/Vol] 1.6 mg/dL Low 1.7-2.3 [facility] Comment on above: Order Comment: Speci men Type: BLOOD SPECIMENOrdering Facility: [facility] Address: [address] [place] [address] Performed By: #### 2 4323-8, 46663-7 ####LYN LABORATORYCLIA [id number] [address] CBC panel Auto (Bld)on 12-28 Erythrocyte distribution width (RBC) [Ratio] 13.0 % Normal 11.5-15.0 [facility] Comment on above: Order Comment: Speci men Type: BLOOD SPECIMENOrdering Facility: [facility] Address: [address] [place] [address] Performed By: #### 5 8410-2 ####LYN LABORATORYCLIA [id number] [address] Hematocrit (Bld) [Volume fraction] 44.1 % Normal 39.0-51.0 [facility] Comment on above: Order Comment: Speci men Type: BLOOD SPECIMENOrdering Facility: [facility] Address: [address] [place] [address] Performed By: #### 5 8410-2 ####LYN LABORATORYCLIA [id number] [address] [place] Hemoglobin (Bld) [Mass/Vol] 15.2 g/dL Normal 13.0-17.0 [facility] Comment on above: Order Comment: Speci men Type: BLOOD SPECIMENOrdering Facility: [facility] Address: [address] [place] [address] Performed By: #### 5 8410-2 ####LYN LABORATORYCLIA [id number] [address] MCH (RBC) [Entitic mass] 31.3 pg Normal 26.0-34.0 [facility] Comment on above: Order Comment: Speci men Type: BLOOD SPECIMENOrdering Facility: [facility] Address: [address] [place] [address] Performed By: #### 5 8410-2 ####LYN LABORATORYCLIA [id number] [place] [address] [place] MCHC (RBC) [Mass/Vol] 34.5 g/dL Normal 30.5-36.0 [facility] Comment on above: Order Comment: Speci men Type: BLOOD SPECIMENOrdering Facility: [facility] Address: [address] [place] [address] Performed By: #### 5 8410-2 ####LYN LABORATORYCLIA [id number] [place] [address] [place] MCV (RBC) [Entitic vol] 90.7 fL Normal 80.0-100.0 [facility] Comment on above: Order Comment: Speci men Type: BLOOD SPECIMENOrdering Facility: [facility] Address: [address] [place] [address] Performed By: #### 5 8410-2 ####LYN LABORATORYCLIA [id number] [address] [place] Nucleated RBC (Bld) [#/Vol] 10*3/uL Normal <0.01 [facility] Comment on above: Order Comment: Speci men Type: BLOOD SPECIMENOrdering Facility: [facility] Address: [address] [place] [address] Performed By: #### 5 8410-2 ####LYN LABORATORYCLIA [id number] [address] [place] Platelet mean volume (Bld) [Entitic vol] 11.0 fL Normal 9.0-12.7 [facility] Comment on above: Order Comment: Speci men Type: BLOOD SPECIMENOrdering Facility: [facility] Address: [address] [place] [address] Performed By: #### 5 8410-2 ####LYN LABORATORYCLIA [id number] [place] [address] [place] Platelets (Bld) [#/Vol] 272 10*3/uL Normal 150-400 [facility] Comment on above: Order Comment: Speci men Type: BLOOD SPECIMENOrdering Facility: [facility] Address: [address] [place] [address] Performed By: #### 5 8410-2 ####LYN LABORATORYCLIA [id number] [address] [place] RBC (Bld) [#/Vol] 4.86 10*6/uL Normal 4.20-6.00 [facility] Comment on above: Order Comment: Speci men Type: BLOOD SPECIMENOrdering Facility: [facility] Address: [address] [place] [address] Performed By: #### 5 8410-2 ####LYN LABORATORYCLIA [id number] [address] WBC (Bld) [#/Vol] 8.37 10*3/uL Normal 3.70-11.00 [facility] Comment on above: Order Comment: Speci men Type: BLOOD SPECIMENOrdering Facility: [facility] Address: [address] [place] [address] Performed By: #### 5 8410-2 ####LYN LABORATORYCLIA [id number] [address] CONSULT PROGon 12-28-2022 CONSULT PROG Normal [facility] Comprehensive metabolic 2000 panelon 12-28-2022 Albumin [Mass/Vol] 3.1 g/dL Low 3.9-4.9 [facility] Comment on above: Order Comment: Speci men Type: BLOOD SPECIMENOrdering Facility: [facility] Address: [address] [place] [address] Performed By: #### 1 9123-9, 99585-1 ####LYN LABORATORYCLIA [id number] [address] OF [facility] ALP [Catalytic activity/Vol] 62 U/L Normal 38-113 [facility] Comment on above: Order Comment: Speci men Type: BLOOD SPECIMENOrdering Facility: [facility] Address: [address] [place] [address] Performed By: #### 1 9123-9, 44015-4 ####LYN LABORATORYCLIA [id number] [address] ALT [Catalytic activity/Vol] U/L Low 10-54 [facility] Comment on above: Order Comment: Speci men Type: BLOOD SPECIMENOrdering Facility: [facility] Address: [place] [address] Performed By: #### 1 9, ####LYN LABORATORYCLIA [id number] [place] [address] [place] Anion gap [Moles/Vol] 7 mmol/L Low 9-18 [facility] Comment on above: Order Comment: Speci men Type: BLOOD SPECIMENOrdering Facility: [facility] Address: [address] [place] [address] Performed By: #### 1 9, ####LYN LABORATORYCLIA [id number] [place] [address] [facility] [place] AST [Catalytic activity/Vol] 7 U/L Low 14-40 [facility] Comment on above: Order Comment: Speci men Type: BLOOD SPECIMENOrdering Facility: [facility] Address: [place] [address] Performed By: #### 1 239, ####LYN LABORATORYCLIA [id number] [address] [place] Bilirubin [Mass/Vol] 0.8 mg/dL Normal 0.2-1.3 [facility] Comment on above: Order Comment: Speci men Type: BLOOD SPECIMENOrdering Facility: [facility] Address: [address] [place] [address] Performed By: #### 1 9, ####LYN LABORATORYCLIA [id number] [place] [address] [place] Calcium [Mass/Vol] 8.2 mg/dL Low 8.5-10.2 [facility] Comment on above: Order Comment: Speci men Type: BLOOD SPECIMENOrdering Facility: [facility] Address: [place] [address] Performed By: #### 1 239, ####LYN LABORATORYCLIA [id number] [place] [address] [place] Chloride [Moles/Vol] 106 mmol/L High 97-105 [facility] Comment on above: Order Comment: Greer tapia Type: BLOOD SPECIMENOrdering Facility: [facility] Address: [address] [place] [address] Performed By: #### 1 23-9, 63446-4 ####LYN LABORATORYCLIA [id number] [address] [place] CO2 [Moles/Vol] 27 mmol/L Normal 22-30 [facility] Comment on above: Order Comment: Madelinei men Type: BLOOD SPECIMENOrdering Facility: [facility] Address: [address] [place] [address] Performed By: #### 1 239, ####LYN LABORATORYCLIA [id number] [address] Creatinine [Mass/Vol] 0.93 mg/dL Normal 0.73-1.22 [facility] Comment on above: Order Comment: Greer men Type: BLOOD SPECIMENOrdering Facility: [facility] Address: [address] [place] [address] Performed By: #### 1 23-9, ####LYN LABORATORYCLIA [id number] [address] Creatinine and Glomerular filtration rate.predicted panel (S/P/Bld) 86 mL/min/1.73m??? Normal >=60 [facility] Comment on above: Order Comment: Greer tapia Type: BLOOD SPECIMENOrdering Facility: [facility] Address: [address] [place] [address] Result Comment: Daiana mated Glomerular Filtration Rate [...] actual GFR. Performed By: #### 1 9123-9, 28397-8 ####LYN LABORATORYCLIA [id number] [place] [address] [place] Glucose [Mass/Vol] 113 mg/dL High 74-99 [facility] Comment on above: Order Comment: Greer tapia Type: BLOOD SPECIMENOrdering Facility: [facility] Address: [address] [place] [address] Result Comment: The [place] [employer] (ADA) provides guidance for cutoff [...] Standards of Medical Care in Diabetes 2016, [place] [employer]. Diabetes Care. 2016.39(Suppl 1). Performed By: #### 1 9123-9, ####LYN LABORATORYCLIA [id number] [place] [address] [place] Potassium [Moles/Vol] 3.5 mmol/L Low 3.7-5.1 [facility] Comment on above: Order Comment: Greer tapia Type: BLOOD SPECIMENOrdering Facility: [facility] Address: [address] [place] [address] Performed By: #### 1 9123-9, ####LYN LABORATORYCLIA [id number] [place] [address] [place] Protein [Mass/Vol] 5.4 g/dL Low 6.3-8.0 [facility] Comment on above: Order Comment: Greer tapia Type: BLOOD SPECIMENOrdering Facility: [facility] Address: [address] [place] [address] Performed By: #### 1 9123-9, ####LYN LABORATORYCLIA [id number] [place] [address] [place] Sodium [Moles/Vol] 140 mmol/L Normal 136-144 [facility] Comment on above: Order Comment: Speci men Type: BLOOD SPECIMENOrdering Facility: [facility] Address: [address] [place] [address] Performed By: #### 1 9123-9, 15489-9 ####LYN LABORATORYCLIA [id number] [place] [id number] [place] Urea nitrogen [Mass/Vol] 15 mg/dL Normal 9-24 [facility] Comment on above: Order Comment: Speci men Type: BLOOD SPECIMENOrdering Facility: [facility] Address: [place] [address] Performed By: #### 1 9123-9, 16942-7 ####LYN LABORATORYCLIA [id number] [place] [id number] [place] Magnesium SerPl-mCncon 12-28 Magnesium [Mass/Vol] 1.7 mg/dL Normal 1.7-2.3 [facility] Comment on above: Order Comment: Speci men Type: BLOOD SPECIMENOrdering Facility: [facility] Address: [address] [place] [address] Performed By: #### 1 9123-9, 67251-1 ####LYN LABORATORYCLIA [id number] [place] [id number] [facility] [place] NURSING PROGon 12-28-2022 NURSING PROG [facility] CASE MANAGEMon 12-27-2022 CASE MANAGEM [facility] CBC panel Auto (Bld)on 12-27 Erythrocyte distribution width (RBC) [Ratio] 13.0 % Normal 11.5-15.0 [facility] Comment on above: Order Comment: Speci men Type: BLOOD SPECIMENOrdering Facility: [facility] Address: [place] [address] Performed By: #### 5 8410-2 ####LYN LABORATORYCLIA [id number] [address] [place] Hematocrit (Bld) [Volume fraction] 42.9 % Normal 39.0-51.0 [facility] Comment on above: Order Comment: Speci men Type: BLOOD SPECIMENOrdering Facility: [facility] Address: [address] [place] [address] Performed By: #### 5 8410-2 ####LYN LABORATORYCLIA [id number] [address] Hemoglobin (Bld) [Mass/Vol] 14.4 g/dL Normal 13.0-17.0 [facility] Comment on above: Order Comment: Speci men Type: BLOOD SPECIMENOrdering Facility: [facility] Address: [address] [place] [address] Performed By: #### 5 8410-2 ####LYN LABORATORYCLIA [id number] [address] MCH (RBC) [Entitic mass] 30.3 pg Normal 26.0-34.0 [facility] Comment on above: Order Comment: Speci men Type: BLOOD SPECIMENOrdering Facility: [facility] Address: [address] [place] [address] Performed By: #### 5 8410-2 ####LYN LABORATORYCLIA [id number] [address] MCHC (RBC) [Mass/Vol] 33.6 g/dL Normal 30.5-36.0 [facility] Comment on above: Order Comment: Speci men Type: BLOOD SPECIMENOrdering Facility: [facility] Address: [address] [place] [address] Performed By: #### 5 8410-2 ####LYN LABORATORYCLIA [id number] [address] MCV (RBC) [Entitic vol] 90.3 fL Normal 80.0-100.0 [facility] Comment on above: Order Comment: Speci men Type: BLOOD SPECIMENOrdering Facility: [facility] Address: [address] [place] [address] Performed By: #### 5 8410-2 ####LYN LABORATORYCLIA [id number] [address] Nucleated RBC (Bld) [#/Vol] 10*3/uL Normal <0.01 [facility] Comment on above: Order Comment: Speci men Type: BLOOD SPECIMENOrdering Facility: [facility] Address: [address] [place] [address], [place] [address] Performed By: #### 5 8410-2 ####LYN LABORATORYCLIA [id number] [place] [address] [place] Platelet mean volume (Bld) [Entitic vol] 10.6 fL Normal 9.0-12.7 [facility] Comment on above: Order Comment: Speci men Type: BLOOD SPECIMENOrdering Facility: [facility] Address: [address] [place] [address] Performed By: #### 5 8410-2 ####LYN LABORATORYCLIA [id number] [place] [address] [place] Platelets (Bld) [#/Vol] 278 10*3/uL Normal 150-400 [facility] Comment on above: Order Comment: Speci men Type: BLOOD SPECIMENOrdering Facility: [facility] [address]: [address] [place] [address] Performed By: #### 5 8410-2 ####LYN LABORATORYCLIA [id number] [place] [address] [place] RBC (Bld) [#/Vol] 4.75 10*6/uL Normal 4.20-6.00 [facility] Comment on above: Order Comment: Speci men Type: BLOOD SPECIMENOrdering Facility: [facility] Address: [address] [place] [address] Performed By: #### 5 8410-2 ####LYN LABORATORYCLIA [id number] [place] [address] [place] WBC (Bld) [#/Vol] 9.99 10*3/uL Normal 3.70-11.00 [facility] Comment on above: Order Comment: Speci men Type: BLOOD SPECIMENOrdering Facility: [facility] Address: [address] [place] [address] Performed By: #### 5 8410-2 ####LYN LABORATORYCLIA [id number] [address] [place] Comprehensive metabolic 2000 panelon 12-27-2022 Albumin [Mass/Vol] 3.4 g/dL Low 3.9-4.9 [facility] Comment on above: Order Comment: Speci men Type: BLOOD SPECIMENOrdering Facility: [facility] Address: [address] [place] [address] Performed By: #### 2 4328, ####LYN LABORATORYCLIA [id number] [place] [address] [place] ALP [Catalytic activity/Vol] 60 U/L Normal 38-113 [facility] Comment on above: Order Comment: Speci men Type: BLOOD SPECIMENOrdering Facility: [facility] Address: [address] [place] [address] Performed By: #### 2 8, ####LYN LABORATORYCLIA [id number] [place] [address] [place] ALT [Catalytic activity/Vol] U/L Low 10-54 [facility] Comment on above: Order Comment: Speci men Type: BLOOD SPECIMENOrdering Facility: [facility] Address: [address] [place] [address] Performed By: #### 2 4322-09, ####LYN LABORATORYCLIA [id number] [place] [address] [place] Anion gap [Moles/Vol] 7 mmol/L Low 9-18 [facility] Comment on above: Order Comment: Speci men Type: BLOOD SPECIMENOrdering Facility: [facility] Address: [address] [place] [address] Performed By: #### 2 4328, ####LYN LABORATORYCLIA [id number] [place] [address] [place] AST [Catalytic activity/Vol] 8 U/L Low 14-40 [facility] Comment on above: Order Comment: Speci men Type: BLOOD SPECIMENOrdering Facility: [facility] Address: [address] [place] [address] Performed By: #### 2 432-8, ####LYN LABORATORYCLIA [id number] [place] [address] [place] Bilirubin [Mass/Vol] 0.9 mg/dL Normal 0.2-1.3 [facility] Comment on above: Order Comment: Speci men Type: BLOOD SPECIMENOrdering Facility: [facility] Address: [address] [place] [address] Performed By: #### 2 4328, ####LYN LABORATORYCLIA [id number] [place] [address] [place] Calcium [Mass/Vol] 8.4 mg/dL Low 8.5-10.2 [facility] Comment on above: Order Comment: Speci men Type: BLOOD SPECIMENOrdering Facility: [facility] Address: [address] [place] [address] Performed By: #### 2 4322-09, ####LYN LABORATORYCLIA [id number] [place] [address] [place] Chloride [Moles/Vol] 101 mmol/L Normal 97-105 [facility] Comment on above: Order Comment: Speci men Type: BLOOD SPECIMENOrdering Facility: [facility] Address: [address] [place] [address] Performed By: #### 2 4322-09, ####LYN LABORATORYCLIA [id number] [place] [address] [place] CO2 [Moles/Vol] 28 mmol/L Normal 22-30 [facility] Comment on above: Order Comment: Speci men Type: BLOOD SPECIMENOrdering Facility: [facility] Address: [address] [place] [address] Performed By: #### 2 4322-09, ####LYN LABORATORYCLIA [id number] [place] [address] [place] Creatinine [Mass/Vol] 1.08 mg/dL Normal 0.73-1.22 [facility] Comment on above: Order Comment: Speci men Type: BLOOD SPECIMENOrdering Facility: [facility] Address: [address] [place] [address] Performed By: #### 2 4328, ####LYN LABORATORYCLIA [id number] [place] [address] [place] Creatinine and Glomerular filtration rate.predicted panel (S/P/Bld) 72 mL/min/1.73m??? Normal >=60 [facility] Comment on above: Order Comment: Greer tapia Type: BLOOD SPECIMENOrdering Facility: [facility] Address: [address] [place] [address] Result Comment: Daiana mated Glomerular Filtration Rate [...] actual GFR. Performed By: #### 2 4323-8, 39705-2 ####LYN LABORATORYCLIA [id number] [place] [id number] [place] Glucose [Mass/Vol] 65 mg/dL Low 74-99 [facility] Comment on above: Order Comment: Greer tapia Type: BLOOD SPECIMENOrdering Facility: [facility] Address: [address] [place] [address] Result Comment: The [place] Diabetes [employer] (ADA) provides guidance for cutoff [...] Standards of Medical Care in Diabetes 2016, [place] [employer]. Diabetes Care. 2016.39(Suppl 1). Performed By: #### 2 4323-8, 75807-3 ####HUME LABORATORYCLIA [id number] [place] [id number] [place] Potassium [Moles/Vol] 3.8 mmol/L Normal 3.7-5.1 [facility] Comment on above: Order Comment: Greer tapia Type: BLOOD SPECIMENOrdering Facility: [facility] Address: [address] [place] [id number] Performed By: #### 2 4323-8, ####LYN LABORATORYCLIA [id number] [place] [address] [place] Protein [Mass/Vol] 5.6 g/dL Low 6.3-8.0 [facility] Comment on above: Order Comment: Speci men Type: BLOOD SPECIMENOrdering Facility: [facility] Address: [place] [address] Performed By: #### 2 4323-8, ####LYN LABORATORYCLIA [id number] [place] [id number] [place] Sodium [Moles/Vol] 136 mmol/L Normal 136-144 [facility] Comment on above: Order Comment: Speci men Type: BLOOD SPECIMENOrdering Facility: [facility] Address: [place] [address] Performed By: #### 2 43238, ####LYN LABORATORYCLIA [id number] [place] [id number] [place] Urea nitrogen [Mass/Vol] 20 mg/dL Normal 9-24 [facility] Comment on above: Order Comment: Speci men Type: BLOOD SPECIMENOrdering Facility: [facility] Address: [address] [place] [id number] Performed By: #### 2 4323-8, ####LYN LABORATORYCLIA [id number] [place] [id number] [place] Magnesium SerPl-mCncon 12-27 Magnesium [Mass/Vol] 1.9 mg/dL Normal 1.7-2.3 [facility] Comment on above: Order Comment: Speci men Type: BLOOD SPECIMENOrdering Facility: [facility] Address: [place] [address] Performed By: #### 2 4323-8, ####LYN LABORATORYCLIA [id number] [place] [address] [place] NUTRITIONon 12-27-2022 NUTRITION Normal [facility] SURGICAL PATHOLOGYon 023 CASE REPORT Normal [facility] Comment on above: Order Comment: Speci men Type: TISSUE SPECIMENOrdering Facility: [facility] Address: [address] [place] [address] Result Comment: Surg ical Pathology Report Case: [id number] Provider: Go Wong MD Collected: 12/27/2022 10:40 AMOrdering Location: [facility] Endoscopy Received: 12/27/2022 12:05 PMPathologist: London Carmichael MDSpecimens: A) - DUODENUM BIOPSY, R/O Celiac B) - STOMACH BIOPSY, R/O H. Pylori Performed By: #### S ####LEQUIREBRIAN LABORATORYCLIA [id number] [address] LABCLIA [id number] [address] FINAL DIAGNOSIS Normal [facility] Comment on above: Order Comment: Speci men Type: TISSUE SPECIMENOrdering Facility: [facility] Address: [address] [place] [address] Result Comment: A. D uodenum, biopsy:- Duodenal mucosa with no significant pathologic changes.- No evidence of celiac sprue.B. Stomach, biopsy:- Antral and fundic mucosa with minimal chronic inflammation.- No evidence of H. pylori. Performed By: #### S ####LEQUIREBRIAN LABORATORYCLIA [id number] [address] LABCLIA [id number] [address] [facility] FINAL PERFORMING LAB Normal [facility] Comment on above: Order Comment: Speci men Type: TISSUE SPECIMENOrdering Facility: [facility] Address: [address] [place] [address] Result Comment: Diag nostic interpretation performed at [facility], [address], [place] [address] CLIA# [id number] Director: Piper Berg M.D. Performed By: #### S ####[facility] LABORATORYIA [id number] [address] LABCLIA [id number] [address] [place] GROSS DESCRIPTION Normal [facility] Comment on above: Order Comment: Speci men Type: TISSUE SPECIMENOrdering Facility: [facility] Address: [address] [place] [address] Result Comment: A. D UODENUM BIOPSYReceived in formalin are multiple pieces of rawls, soft tissue aggregating to 0.7 x 0.3 x 0.2 cm. Totally submitted in one cassette.B. STOMACH BIOPSYReceived in formalin are multiple pieces of rawls, soft tissue aggregating to 0.6 x 0.4 x 0.2 cm. Totally submitted in one cassette.JTS December 27, 2022 4:53 PMGross examination performed at [facility], [facility] [place] [address] Performed By: #### S ####[facility] LABORATORYIA [id number] [address] LABIA [id number] [address] [place] Upper GI endoscopyon 023 Upper GI endoscopy Normal [facility] ALLIED HEALTHon 12-26-2022 ALLIED HEALTH [facility] Bacteria Ur Culton 3 Bacteria identified Cx Nom (U) CULTURE, URINE: No growth (<1,000 CFU/ml) [facility] Comment on above: Performed By: #### 6 30-4 ####[facility] LABIA [id number] [place] [address] [place] CASE MGT INIT ASSESon 2022 [facility] CBC panel Auto (Bld)on 12-26 Erythrocyte distribution width (RBC) [Ratio] 13.0 % Normal 11.5-15.0 [facility] Comment on above: Order Comment: Speci men Type: BLOOD SPECIMENOrdering Facility: [facility] Address: [address] [place] [address] Performed By: #### 5 8410-2 ####LYN LABORATORYCLIA [id number] [address] Hematocrit (Bld) [Volume fraction] 42.5 % Normal 39.0-51.0 [facility] Comment on above: Order Comment: Speci men Type: BLOOD SPECIMENOrdering Facility: [facility] Address: [address] [place] [address] Performed By: #### 5 8410-2 ####LYN LABORATORYCLIA [id number] [address] Hemoglobin (Bld) [Mass/Vol] 14.5 g/dL Normal 13.0-17.0 [facility] Comment on above: Order Comment: Speci men Type: BLOOD SPECIMENOrdering Facility: [facility] Address: [address] [place] [address] Performed By: #### 5 8410-2 ####LYN LABORATORYCLIA [id number] [address] MCH (RBC) [Entitic mass] 30.1 pg Normal 26.0-34.0 [facility] Comment on above: Order Comment: Speci men Type: BLOOD SPECIMENOrdering Facility: [facility] Address: [address] [place] [address] Performed By: #### 5 8410-2 ####LYN LABORATORYCLIA [id number] [address] MCHC (RBC) [Mass/Vol] 34.1 g/dL Normal 30.5-36.0 [facility] Comment on above: Order Comment: Speci men Type: BLOOD SPECIMENOrdering Facility: [facility] Address: [address] [place] [address] Performed By: #### 5 8410-2 ####LYN LABORATORYCLIA [id number] [address] MCV (RBC) [Entitic vol] 88.4 fL Normal 80.0-100.0 [facility] Comment on above: Order Comment: Speci men Type: BLOOD SPECIMENOrdering Facility: [facility] Address: [address] [place] [address] Performed By: #### 5 8410-2 ####LYN LABORATORYCLIA [id number] [place] [address] [place] Nucleated RBC (Bld) [#/Vol] 10*3/uL Normal <0.01 [facility] Comment on above: Order Comment: Speci men Type: BLOOD SPECIMENOrdering Facility: [facility] Address: [address] [place] [address] Performed By: #### 5 8410-2 ####LYN LABORATORYCLIA [id number] [place] [address] [place] Platelet mean volume (Bld) [Entitic vol] 11.6 fL Normal 9.0-12.7 [facility] Comment on above: Order Comment: Speci men Type: BLOOD SPECIMENOrdering Facility: [facility] Address: [address] [place] [address] Performed By: #### 5 8410-2 ####LYN LABORATORYCLIA [id number] [place] [address] [place] Platelets (Bld) [#/Vol] 323 10*3/uL Normal 150-400 [facility] Comment on above: Order Comment: Speci men Type: BLOOD SPECIMENOrdering Facility: [facility] Address: [address] [place] [address] Performed By: #### 5 8410-2 ####LYN LABORATORYCLIA [id number] [place] [address] [place] RBC (Bld) [#/Vol] 4.81 10*6/uL Normal 4.20-6.00 [facility] Comment on above: Order Comment: Speci men Type: BLOOD SPECIMENOrdering Facility: [facility] Address: [address] [place] [address] Performed By: #### 5 8410-2 ####LYN LABORATORYCLIA [id number] [place] [address] [place] WBC (Bld) [#/Vol] 11.78 10*3/uL High 3.70-11.00 [facility] Comment on above: Order Comment: Speci men Type: BLOOD SPECIMENOrdering Facility: [facility] Address: [place] [address] Performed By: #### 5 8410-2 ####HUME LABORATORYCLIA [id number] [place] [address] [place] CONSULTon 12-26-2022 CONSULT Normal [facility] CONSULT Normal [facility] Comprehensive metabolic 2000 panelon 12-26-2022 Albumin [Mass/Vol] 3.3 g/dL Low 3.9-4.9 [facility] Comment on above: Order Comment: Speci men Type: BLOOD SPECIMENOrdering Facility: [facility] Address: [address] [place] [address] Performed By: #### 1 9123-9, 33683-1 ####HUME LABORATORYCLIA [id number] [place] [address] [place] ALP [Catalytic activity/Vol] 66 U/L Normal 38-113 [facility] Comment on above: Order Comment: Speci men Type: BLOOD SPECIMENOrdering Facility: [facility] Address: [address] [place] [address] Performed By: #### 1 9123-9, 24288-8 ####HUME LABORATORYCLIA [id number] [address] OF [facility] ALT [Catalytic activity/Vol] U/L Low 10-54 [facility] Comment on above: Order Comment: Speci men Type: BLOOD SPECIMENOrdering Facility: [facility] Address: [address] [place] [address] Performed By: #### 1 9123-9, 92034-8 ####LYN LABORATORYCLIA [id number] [place] [address] [place] [facility] Anion gap [Moles/Vol] 10 mmol/L Normal 9-18 [facility] Comment on above: Order Comment: Speci men Type: BLOOD SPECIMENOrdering Facility: [facility] Address: [address] [place] [address] Performed By: #### 1 23-9, 69316-0 ####LYN LABORATORYCLIA [id number] [place] [address] [place] AST [Catalytic activity/Vol] 10 U/L Low 14-40 [facility] Comment on above: Order Comment: Speci men Type: BLOOD SPECIMENOrdering Facility: [facility] Address: [address] [place] [address] Performed By: #### 1 23-9, 73813-2 ####LYN LABORATORYCLIA [id number] [place] [address] [place] Bilirubin [Mass/Vol] 1.0 mg/dL Normal 0.2-1.3 [facility] Comment on above: Order Comment: Speci men Type: BLOOD SPECIMENOrdering Facility: [facility] Address: [address] [place] [address] Performed By: #### 1 239, ####LYN LABORATORYCLIA [id number] [place] [address] [place] Calcium [Mass/Vol] 8.5 mg/dL Normal 8.5-10.2 [facility] Comment on above: Order Comment: Speci men Type: BLOOD SPECIMENOrdering Facility: [facility] Address: [address] [place] [address] Performed By: #### 1 23-9, 41400-2 ####LYN LABORATORYCLIA [id number] [place] [address] [place] Chloride [Moles/Vol] 101 mmol/L Normal 97-105 [facility] Comment on above: Order Comment: Speci men Type: BLOOD SPECIMENOrdering Facility: [facility] Address: [address] [place] [address] Performed By: #### 1 23-9, ####LYN LABORATORYCLIA [id number] [place] [address] [place] CO2 [Moles/Vol] 25 mmol/L Normal 22-30 [facility] Comment on above: Order Comment: Speci men Type: BLOOD SPECIMENOrdering Facility: [facility] Address: [address] [place], [place] [address], [place] [address] Performed By: #### 1 9123-9, 95822-3 ####LYN LABORATORYCLIA [id number] [place] [id number] [place] Creatinine [Mass/Vol] 0.93 mg/dL Normal 0.73-1.22 [facility] Comment on above: Order Comment: Greer tapia Type: BLOOD SPECIMENOrdering Facility: [facility] Address: [address] [place] [address] Performed By: #### 1 9123-9, 45149-3 ####LYN LABORATORYCLIA [id number] [place] [id number] [place] Creatinine and Glomerular filtration rate.predicted panel (S/P/Bld) 86 mL/min/1.73m??? Normal >=60 [facility] Comment on above: Order Comment: Greer tapia Type: BLOOD SPECIMENOrdering Facility: [facility] Address: [address] [place] [address] Result Comment: Daiana mated Glomerular Filtration Rate [...] actual GFR. Performed By: #### 1 9123-9, 06494-9 ####LYN LABORATORYCLIA [id number] [place] [id number] [place] Glucose [Mass/Vol] 79 mg/dL Normal 74-99 [facility] Comment on above: Order Comment: Greer tapia Type: BLOOD SPECIMENOrdering Facility: [facility] Address: [address] [place] [address] Result Comment: The [place] Diabetes Association (ADA) provides guidance for cutoff [...] Standards of Medical Care in Diabetes 2016, [place] [employer]. Diabetes Care. 2016.39(Suppl 1). Performed By: #### 1 239, ####LYN LABORATORYCLIA [id number] [place] [address] [place] Potassium [Moles/Vol] 4.3 mmol/L Normal 3.7-5.1 [facility] Comment on above: Order Comment: Greer tapia Type: BLOOD SPECIMENOrdering Facility: [facility] Address: [address] [place] [address] Performed By: #### 1 9122-10, ####LYN LABORATORYCLIA [id number] [place] [address] [place] Protein [Mass/Vol] 5.9 g/dL Low 6.3-8.0 [facility] Comment on above: Order Comment: Greer tapia Type: BLOOD SPECIMENOrdering Facility: [facility] Address: [address] [place] [address] Performed By: #### 1 9122-10, ####LYN LABORATORYCLIA [id number] [place] [address] [place] Sodium [Moles/Vol] 136 mmol/L Normal 136-144 [facility] Comment on above: Order Comment: Greer tapia Type: BLOOD SPECIMENOrdering Facility: [facility] Address: [address] [place] [address] Performed By: #### 1 9122-10, ####LYN LABORATORYCLIA [id number] [place] [address] [place] Urea nitrogen [Mass/Vol] 21 mg/dL Normal 9-24 [facility] Comment on above: Order Comment: Greer tapia Type: BLOOD SPECIMENOrdering Facility: [facility] Address: [address] [place] [address] Performed By: #### 1 9122-10, ####HUME LABORATORYCLIA [id number] [place] [address] [place] [facility] [place] Magnesium SerPl-mCncon 12-26 Magnesium [Mass/Vol] 1.8 mg/dL Normal 1.7-2.3 [facility] Comment on above: Order Comment: Speci men Type: BLOOD SPECIMENOrdering Facility: [facility] Address: [address] [place] [address] Performed By: #### 1 9123-9, 17566-7 ####HUME LABORATORYCLIA [id number] [address] [place] THERAPY NTon 12-26-2022 THERAPY NT Normal [facility] THERAPY NT Normal [facility] THERAPY NT Normal [facility] URINALYSIS, REFLEX MICROSCOP ICon 12-26-2022 Bilirubin Ql (U) Negative Normal Negative [facility] Comment on above: Order Comment: Speci men Type: URINE SPECIMENOrdering Facility: [facility] Address: [address] [place] [address] Performed By: #### L [id number] ####HUME LABORATORYCLIA [id number] [address] [place] Clarity (Unsp spec) Clear Normal Clear [facility] Comment on above: Order Comment: Speci men Type: URINE SPECIMENOrdering Facility: [facility] Address: [address] [place] [address] Performed By: #### L [id number] ####HUME LABORATORYCLIA [id number] [address] [place] Color (U) Yellow Normal Yellow [facility] Comment on above: Order Comment: Speci men Type: URINE SPECIMENOrdering Facility: [facility] Address: [address] [place] [address] Performed By: #### L [id number] ####HUME LABORATORYCLIA [id number] [address] Epithelial cells LM.HPF (Urine sed) [#/Area] Few Normal [facility] Comment on above: Order Comment: Speci men Type: URINE SPECIMENOrdering Facility: [facility] Address: [address] [place], [place] [address] Performed By: #### L [id number] ####LYN LABORATORYCLIA [id number] [address] Glucose Test strip (U) [Mass/Vol] Negative Normal Negative [facility] Comment on above: Order Comment: Speci men Type: URINE SPECIMENOrdering Facility: [facility] Address: [address] [place] [address] Performed By: #### L [id number] ####LYN LABORATORYCLIA [id number] [address] [facility] Hemoglobin Ql (U) Negative Normal Negative [facility] Comment on above: Order Comment: Speci men Type: URINE SPECIMENOrdering Facility: [facility] Address: [address] [place] [address] Performed By: #### L [id number] ####LYN LABORATORYCLIA [id number] [address] Ketones Ql (U) 1+ Abnormal Negative [facility] Comment on above: Order Comment: Speci men Type: URINE SPECIMENOrdering Facility: [facility] Address: [address] [place] [address] Performed By: #### L [id number] ####LYN LABORATORYCLIA [id number] [address] Leukocyte esterase Test strip Ql (U) Trace Abnormal Negative [facility] Comment on above: Order Comment: Speci men Type: URINE SPECIMENOrdering Facility: [facility] Address: [address] [place] [address] Performed By: #### L [id number] ####LYN LABORATORYCLIA [id number] [address] [place] Nitrite Ql (U) Negative Normal Negative [facility] Comment on above: Order Comment: Speci men Type: URINE SPECIMENOrdering Facility: [facility] Address: [address] [place] [address] Performed By: #### L [id number] ####LYN LABORATORYCLIA [id number] [address] [place] pH (U) 6.0 [pH] Normal 5.0-8.0 [facility] Comment on above: Order Comment: Speci men Type: URINE SPECIMENOrdering Facility: [facility] Address: [address] [place] [address] Performed By: #### L [id number] ####LYN LABORATORYCLIA [id number] [address] Protein (U) [Mass/Vol] 1+ Abnormal Negative [facility] Comment on above: Order Comment: Speci men Type: URINE SPECIMENOrdering Facility: [facility] Address: [address] [place] [address] Performed By: #### L [id number] ####LYN LABORATORYCLIA [id number] [address] RBC LM.HPF (Urine sed) [#/Area] 0-3 /HPF Normal 0-3 /HPF [facility] Comment on above: Order Comment: Speci men Type: URINE SPECIMENOrdering Facility: [facility] Address: [address] [place] [address] Performed By: #### L [id number] ####LYN LABORATORYCLIA [id number] [address] Specific gravity (U) [Rel density] 1.025 Normal 1.005-1.030 [facility] Comment on above: Order Comment: Speci men Type: URINE SPECIMENOrdering Facility: [facility] Address: [address] [place] [address] Performed By: #### L [id number] ####LYN LABORATORYCLIA [id number] [address] Urobilinogen Ql (U) 0.2 EU/dL Normal 0.2-1.0 EU/dL [facility] Comment on above: Order Comment: Speci men Type: URINE SPECIMENOrdering Facility: [facility] Address: [address] [place] [address] Performed By: #### L [id number] ####LYN LABORATORYCLIA [id number] [address] WBC LM.HPF (Urine sed) [#/Area] 0-5 /HPF Normal 0-5 /HPF [facility] Comment on above: Order Comment: Speci men Type: URINE SPECIMENOrdering Facility: [facility] Address: [place] [address] Performed By: #### L [id number] ####HUME LABORATORYCLIA [id number] [place] [address] [place] XR CHEST 2V FRONTAL/LATon XR CHEST 2V FRONTAL/LAT Normal M [facility] XR MOD BARIUM SWALLOW W SPEE Aspen 12-26-2022 XR MOD BARIUM SWALLOW W SPEECH Normal [facility] Absolute lymphocyte countOrd ered By: Jakob Chino on 12-25-2022 Lymphocytes Auto (Unsp spec) [#/Vol] 1.02 10*3/uL 0.83-4.51 [facility] Basophil percentageOrdered B y: Jakob Chino on 12-25-2022 Basophil percentage 0 SEEN /hpf 0-5 [facility] Basophils/100 WBC (Bld) 0.3 % 0-1 [facility] Chloride [Moles/Vol] 100 mmol/L 98-107 [facility] Eosinophils/100 WBC (Bld) 0.2 % 0-5 [facility] Glucose [Mass/Vol] 97 mg/dL 74-106 [facility] Lactate [Moles/Vol] 1.4 mmol/L 0.4-2.0 [facility] Neutrophils (Bld) [#/Vol] 9.3 10*3/uL 2.0-7.7 [facility] Neutrophils/100 WBC (Bld) 81.7 % 47-70 [facility] Potassium [Moles/Vol] 4.0 mmol/L 3.5-5.[address] [facility] Sodium [Moles/Vol] 133 mmol/L 136-145 [facility] WBC (Bld) [#/Vol] 11.4 10*3/uL 4.4-11.0 [facility] Bilirubin Test strip Ql (U)O rdered By: Jakob Chino on 12-25-2022 Bilirubin Ql (U) Negative Negative [facility] Blood erythrocytes count (nu mber/volume)Ordered By: Jakob Chino on 12-25-2022 RBC (Bld) [#/Vol] 5.16 10*6/uL 4.6-6.2 [facility] Blood hemoglobin measurement (mass/volume)Ordered By: Jakob Chino on 12-25-2022 Hemoglobin (Bld) [Mass/Vol] 15.3 g/dL 13.0-16.5 [facility] Blood lymphocytes/100 leukoc ytesOrdered By: Jakob Chino on 12-25-2022 Lymphocytes/100 WBC (Bld) 8.9 % 19-41 [facility] Blood monocytes/100 leukocyt esOrdered By: Jakob Chino on 12-25-2022 Monocytes/100 WBC (Bld) 8.4 % 0-10 [facility] Blood platelet mean volumeOr dered By: Jakob Chino on 12-25-2022 Platelet mean volume (Bld) [Entitic vol] 11.0 fL 6.2-12.0 [facility] Culture, urineOrdered By: Paulo Chino on 12-25-2022 Bacteria identified Cx Nom (U) Culture exhibits no growth. [facility] Determination of erythrocyte mean corpuscular volume (MCV)Ordered By: Jakob Chino on 12-25-2022 MCV (RBC) [Entitic vol] 91.5 fL 80-94 [facility] HISTORY PHYSICALon 3 HISTORY PHYSICAL Normal [facility] Hematocrit Auto (Bld) [Volum e fraction]Ordered By: Jakob Chino on 12-25-2022 Hematocrit (Bld) [Volume fraction] 47.2 % 40-54 [facility] INR in Blood by Coagulation assayOrdered By: Jakob Chino on 12-25-2022 INR Coag (Bld) [Relative time] 1.2 {INR} [facility] Ketones Test strip Ql (U)Ord ered By: Jakob Chino on 12-25-2022 Ketones Ql (U) 15 mg/dl Negative [facility] Laboratory - Chemistry and C hemistry - challengeOrdered By: Jakob Chino on 12-25-2022 CO2 [Moles/Vol] 30.0 mmol/L 21.0-32.0 [facility] Urea nitrogen/Creatinine [Mass ratio] 16.1 mg/mg 10-20 [facility] Laboratory - CoagulationOrde red By: Jakob Chino on 12-25-2022 aPTT Coag (Bld) [Time] 27.5 s 24.1-36.2 [facility] PT Coag (PPP) [Time] 14.8 s 11.7-14.9 [facility] Laboratory - Hematology and Cell countsOrdered By: Jakob Chino on 12-25-2022 Erythrocyte distribution width (RBC) [Entitic vol] 43.6 fL 35.1-43.9 [facility] Erythrocyte distribution width (RBC) [Ratio] 13.0 % 11.6-14.6 [facility] Immature granulocytes/100 WBC (Bld) 0.500 % 0.0-0.9 [facility] Comment on above: IG% - Immature Granu locytes (promyelocytes, myelocytes and metamyelocytes) > 1% indicates that a LEFT SHIFT is Present. MCH (RBC) [Entitic mass] 29.7 pg 27.0-32.0 [facility] Nucleated RBC/100 WBC (Bld) [Ratio] 0 % 0-5 [facility] MCHC Auto (RBC) [Mass/Vol]Or dered By: Jakob Chino on 12-25-2022 MCHC (RBC) [Mass/Vol] 32.4 g/dL 32-[address] [facility] Mucus LM Ql (Urine sed)Order ed By: Jakob Chino on 12-25-2022 Mucus Ql (Urine sed) 0 SEEN /hpf [facility] Nitrite Test strip Ql (U)Ord ered By: Jakob Chino on 12-25-2022 Nitrite Ql (U) Negative Negative [facility] No Panel InformationOrdered By: Jakob Chino on 12-25-2022 Estimated Creatinine Clearance Calc 37.40 ml/min [facility] Estimated GFR (MDRD) Amer 65 mL/min >60 [facility] Comment on above: GFR Calc Estimated GFR (MDRD) Non-Af Amer 54 mL/min >60 [facility] Comment on above: Non- GFR Calc Troponin I High Sensitivity 20 pg/mL 3.0-78.0 [facility] Comment on above: Please Note: New Karine t Units and Gender Specific Reference Ranges. For more information see Policy Stat Procedure [place] High Sensitivity Troponin (TNIH) and attachments. Platelets bldOrdered By: Samaria Chino on 12-25-2022 Platelets (Bld) [#/Vol] 339 10*3/uL 150-450 [facility] Protein Test strip Ql (U)Ord ered By: Jakob Chino on 12-25-2022 Protein Ql (U) 30 mg/dl Negative [facility] Serum or plasma calcium hayden urement (mass/volume)Ordered By: Jakob Chino on 12-25-2022 Calcium [Mass/Vol] 8.7 mg/dL 8.5-10.1 [facility] Serum or plasma creatinine m easurement (mass/volume)Ordered By: Jakob Chino on 12-25-2022 Creatinine [Mass/Vol] 1.37 mg/dL 0.70-1.[address] [facility] Comment on above: The validity of the calculated GFR & GFRAA in patients over 70 years has not been determined. Clinical correlation is essential. Serum or plasma urea nitroge n measurement (mass/volume)Ordered By: Jakob Chino on 12-25-2022 Urea nitrogen [Mass/Vol] 22 mg/dL 7-18 [facility] Squamous epithelial cells de tection in urine sediment by light microscopyOrdered By: Jakob Chino on 12-25-2022 Epithelial cells.squamous LM Ql (Urine sed) 0 SEEN /hpf 0-5 [facility] Thin prep Papanicolaou smear with manual screeningOrdered By: Jakob Chino on 12-25-2022 Thin prep Papanicolaou smear with manual screening 3 5-15 [facility] Urine blood detectionOrdered By: Jakob Chino on 12-25-2022 RBC Ql (U) 10 /ul Negative [facility] RBC Ql (U) 0 SEEN /hpf 0-5 [facility] Urine clarityOrdered By: Samaria Chino on 12-25-2022 Clarity (U) Clear Clear [facility] Urine color determinationOrd ered By: Jakob Chino on 12-25-2022 Color (U) Yellow Yellow [facility] Urine glucose detectionOrder ed By: Jakob Chino on 12-25-2022 Glucose Ql (U) Normal mg/dl Normal [facility] Urine leukocyte esterase det ection by dipstickOrdered By: Jakob Chino on 12-25-2022 Leukocyte esterase Test strip Ql (U) 25 /ul Negative [facility] Urine pHOrdered By: Jakob botello on 12-25-2022 pH (U) 6.0 [pH] 5.0 - 8.0 [facility] Urine sediment bacteria coun t by microscopy (number/high power field)Ordered By: Jakob Chino on 12-25-2022 Bacteria LM.HPF (Urine sed) [#/Area] 0 /[HPF] None Seen [facility] Urine specific gravity measu rementOrdered By: Jakob Chino on 12-25-2022 Specific gravity (U) [Rel density] 1.020 1.002-1.030 [facility] Urobilinogen Auto test strip Ql (U)Ordered By: Jakob Chino on 12-25-2022 Urobilinogen Ql (U) 1 mg/dl Normal [facility] Absolute lymphocyte countOrd ered By: Dr. Islas on 07-23-2022 Lymphocytes Auto (Unsp spec) [#/Vol] 0.59 10*3/uL 0.83-4.51 [facility] Basophil percentageOrdered B y: Dr. Islas on 07-23-2022 Lactate [Moles/Vol] 2.3 mmol/L 0.4-2.0 [facility] Comment on above: Critical Result(s) C alled at: 16:52:14 07/23/2022 by: Dary Shen to [facility]. Results read back by same. Basophils/100 WBC (Bld) 0.3 % 0-1 [facility] Bilirubin [Mass/Vol] 0.60 mg/dL 0.20-1.00 [facility] Comment on above: For patients on eltr ombopag therapy, use of Dimension [place] TBIL is not recommended. Chloride [Moles/Vol] 101 mmol/L 98-107 [facility] Eosinophils/100 WBC (Bld) 0.0 % 0-5 [facility] Glucose [Mass/Vol] 123 mg/dL 74-106 [facility] Comment on above: Fasting Glucose resu lt from 100 to 125 mg/dL suggests IMPAIRED HOMEOSTASIS per A.D.A. criteria. Neutrophils (Bld) [#/Vol] 24.8 10*3/uL 2.0-7.7 [facility] Neutrophils/100 WBC (Bld) 93.1 % 47-70 [facility] Potassium [Moles/Vol] 4.3 mmol/L 3.5-5.[address] [facility] Comment on above: Slight Hemolysis, Re sult may be falsely increased. Protein [Mass/Vol] 8.3 g/dL 6.4-8.2 [facility] Sodium [Moles/Vol] 136 mmol/L 136-145 [facility] WBC (Bld) [#/Vol] 26.7 10*3/uL 4.4-11.0 [facility] Blood erythrocytes count (nu mber/volume)Ordered By: Dr. Islas on 07-23-2022 RBC (Bld) [#/Vol] 5.63 10*6/uL 4.6-6.2 [facility] Blood hemoglobin measurement (mass/volume)Ordered By: Dr. Islas on 07-23-2022 Hemoglobin (Bld) [Mass/Vol] 17.7 g/dL 13.0-16.5 [facility] Blood lymphocytes/100 leukoc ytesOrdered By: Dr. Islas on 07-23-2022 Lymphocytes/100 WBC (Bld) 2.2 % 19-41 [facility] Blood manual differential co mment interpretation (narrative result)Ordered By: Dr. Islas on 07-23-2022 Manual differential comment Lucian (Bld) [Interp] SCANNED [facility] Blood monocytes/100 leukocyt esOrdered By: Dr. Islas on 07-23-2022 Monocytes/100 WBC (Bld) 3.4 % 0-10 [facility] Blood platelet mean volumeOr dered By: Dr. Islas on 07-23-2022 Platelet mean volume (Bld) [Entitic vol] 10.5 fL 6.2-12.0 [facility] Determination of erythrocyte mean corpuscular volume (MCV)Ordered By: Dr. Islas on 07-23-2022 MCV (RBC) [Entitic vol] 95.4 fL 80-94 [facility] Hematocrit Auto (Bld) [Volum e fraction]Ordered By: Dr. Islas on 07-23-2022 Hematocrit (Bld) [Volume fraction] 53.7 % 40-54 [facility] INR in Blood by Coagulation assayOrdered By: Dr. Islas on 07-23-2022 INR Coag (Bld) [Relative time] 1.4 {INR} [facility] Laboratory - Chemistry and C hemistry - challengeOrdered By: Dr. Islas on 07-23-2022 ALP [Catalytic activity/Vol] 84 U/L 45-117 [facility] ALT [Catalytic activity/Vol] 7 U/L 16-61 [facility] CO2 [Moles/Vol] 27.0 mmol/L 21.0-32.0 [facility] Globulin (S) [Mass/Vol] 4.9 g/dL 2.2-4.2 [facility] Urea nitrogen/Creatinine [Mass ratio] 14.8 mg/mg 10-20 [facility] Laboratory - CoagulationOrde red By: Dr. Islas on 07-23-2022 aPTT Coag (Bld) [Time] 25.4 s 24.1-36.2 [facility] PT Coag (PPP) [Time] 16.9 s 11.7-14.9 [facility] Laboratory - Hematology and Cell countsOrdered By: Dr. Islas on 07-23-2022 Erythrocyte distribution width (RBC) [Entitic vol] 46.9 fL 35.1-43.9 [facility] Erythrocyte distribution width (RBC) [Ratio] 13.3 % 11.6-14.6 [facility] Immature granulocytes/100 WBC (Bld) 1.000 % 0.0-0.9 [facility] Comment on above: IG% - Immature Granu locytes (promyelocytes, myelocytes and metamyelocytes) > 1% indicates that a LEFT SHIFT is Present. MCH (RBC) [Entitic mass] 31.4 pg 27.0-32.0 [facility] Nucleated RBC/100 WBC (Bld) [Ratio] 0 % 0-5 [facility] MCHC Auto (RBC) [Mass/Vol]Or dered By: Dr. Islas on 07-23-2022 MCHC (RBC) [Mass/Vol] 33.0 g/dL 32-[address] [facility] No Panel InformationOrdered By: Dr. Islas on 07-23-2022 Estimated Creatinine Clearance Calc 36.98 ml/min [facility] Estimated GFR (MDRD) Amer 57 mL/min >60 [facility] Comment on above: GFR Calc Estimated GFR (MDRD) Non-Af Amer 47 mL/min >60 [facility] Comment on above: Non- GFR Calc Platelets bldOrdered By: Dr. Islas on 07-23-2022 Platelets (Bld) [#/Vol] 277 10*3/uL 150-450 [facility] Serum or plasma albumin hayden urement (mass/volume)Ordered By: Dr. Islas on 07-23-2022 Albumin [Mass/Vol] 3.4 g/dL 3.2-5.0 [facility] Serum or plasma albumin/glob ulin mass ratioOrdered By: Dr. Islas on 07-23-2022 Albumin/Globulin [Mass ratio] 0.7 {ratio} 0.9-2.4 [facility] Serum or plasma calcium hayden urement (mass/volume)Ordered By: Dr. Islas on 07-23-2022 Calcium [Mass/Vol] 9.5 mg/dL 8.5-10.1 [facility] Serum or plasma creatinine m easurement (mass/volume)Ordered By: Dr. Islas on 07-23-2022 Creatinine [Mass/Vol] 1.55 mg/dL 0.70-1.[address] [facility] Comment on above: The validity of the calculated GFR & GFRAA in patients over 70 years has not been determined. Clinical correlation is essential. Serum or plasma urea nitroge n measurement (mass/volume)Ordered By: Dr. Islas on 07-23-2022 Urea nitrogen [Mass/Vol] 23 mg/dL 7-18 [facility] Thin prep Papanicolaou smear with manual screeningOrdered By: Dr. Islas on 07-23-2022 Thin prep Papanicolaou smear with manual screening 16 U/L 15-37 [facility] Comment on above: Slight Hemolysis, Re sult may be falsely increased. Thin prep Papanicolaou smear with manual screening 8 5-15 [facility] CBC panel Auto (Bld)on 05-09 Erythrocyte distribution width (RBC) [Ratio] 15.1 % High 11.5 - 15.0 % [facility] Hematocrit (Bld) [Volume fraction] 44.9 % 39.0 - 51.0 % [facility] Hemoglobin (Bld) [Mass/Vol] 14.6 g/dL 13.0 - 17.0 g/dL [facility] MCH (RBC) [Entitic mass] 30.9 pg 26. 0 - 34.0 pg [facility] MCHC (RBC) [Mass/Vol] 32.5 g/dL 30.5 - 36.0 g/dL [facility] MCV (RBC) [Entitic vol] 95.1 fL 80.0 - 100.0 fL [facility] Nucleated RBC (Bld) [#/Vol] <0.01 k/uL [facility] Platelet mean volume (Bld) [Entitic vol] 11.4 fL 9.0 - 12.7 fL [facility] Platelets (Bld) [#/Vol] 229 10*3/uL 150 - 400 k/uL [facility] RBC (Bld) [#/Vol] 4.72 10*6/uL 4.20 - 6.0 0 m/uL [facility] WBC (Bld) [#/Vol] 7.98 10*3/uL 3.70 - 11. 00 k/uL [facility] Comprehensive metabolic 2000 panelon 05-09-2022 Albumin [Mass/Vol] 3.4 g/dL Low 3.9 - 4.9 g/dL [facility] ALP [Catalytic activity/Vol] 78 U/L 38 - 113 U/L [facility] ALT [Catalytic activity/Vol] Low 10 - 54 U/L [facility] Anion gap [Moles/Vol] 8 mmol/L Low 9 - 18 mmol/L [facility] AST [Catalytic activity/Vol] 30 U/L 14 - 40 U/L [facility] Bilirubin [Mass/Vol] 0.5 mg/dL 0.2 - 1 .3 mg/dL [facility] Calcium [Mass/Vol] 9.3 mg/dL 8.5 - 10. 2 mg/dL [facility] Chloride [Moles/Vol] 102 mmol/L 97 - 10 5 mmol/L [facility] CO2 [Moles/Vol] 28 mmol/L 22 - 30 mmol/L [facility] Creatinine [Mass/Vol] 0.96 mg/dL 0.73 - 1.22 mg/dL [facility] Estimated Glomerular Filtration Rate 83 mL/min/1.73m >=60 mL/min/1.73m [facility] Glucose [Mass/Vol] 72 mg/dL Low 74 - 99 mg/dL [facility] Potassium [Moles/Vol] 5.3 mmol/L High 3.7 - 5.1 mmol/L [facility] Protein [Mass/Vol] 6.6 g/dL 6.3 - 8.0 g/dL [facility] Sodium [Moles/Vol] 138 mmol/L 136 - 144 mmol/L [facility] Urea nitrogen [Mass/Vol] 32 mg/dL High 9 - 24 mg/d L [facility] Alpha tocopherol [Mass/Vol]o n 05-06-2022 Beta+gamma tocopherol [Mass/Vol] 0.5 mg/L 0.3 - 3.2 mg/L [facility] CBC panel Auto (Bld)on 05-06 Erythrocyte distribution width (RBC) [Ratio] 15.1 % High 11.5 - 15.0 % [facility] Hematocrit (Bld) [Volume fraction] 45.7 % 39.0 - 51.0 % [facility] Hemoglobin (Bld) [Mass/Vol] 14.7 g/dL 13.0 - 17.0 g/dL [facility] MCH (RBC) [Entitic mass] 30.8 pg 26. 0 - 34.0 pg [facility] MCHC (RBC) [Mass/Vol] 32.2 g/dL 30.5 - 36.0 g/dL [facility] MCV (RBC) [Entitic vol] 95.8 fL 80.0 - 100.0 fL [facility] Nucleated RBC (Bld) [#/Vol] <0.01 k/uL [facility] Platelet mean volume (Bld) [Entitic vol] 11.1 fL 9.0 - 12.7 fL [facility] Platelets (Bld) [#/Vol] 279 10*3/uL 150 - 400 k/uL [facility] RBC (Bld) [#/Vol] 4.77 10*6/uL 4.20 - 6.0 0 m/uL [facility] WBC (Bld) [#/Vol] 8.21 10*3/uL 3.70 - 11. 00 k/uL [facility] Comprehensive metabolic 2000 panelon 05-06-2022 Albumin [Mass/Vol] 3.4 g/dL Low 3.9 - 4.9 g/dL [facility] ALP [Catalytic activity/Vol] 85 U/L 38 - 113 U/L [facility] ALT [Catalytic activity/Vol] Low 10 - 54 U/L [facility] Anion gap [Moles/Vol] 9 mmol/L 9 - 18 mmol/L [facility] AST [Catalytic activity/Vol] 18 U/L 14 - 40 U/L [facility] Bilirubin [Mass/Vol] 0.4 mg/dL 0.2 - 1 .3 mg/dL [facility] Calcium [Mass/Vol] 9.4 mg/dL 8.5 - 10. 2 mg/dL [facility] Chloride [Moles/Vol] 101 mmol/L 97 - 10 5 mmol/L [facility] CO2 [Moles/Vol] 29 mmol/L 22 - 30 mmol/L [facility] Creatinine [Mass/Vol] 0.99 mg/dL 0.73 - 1.22 mg/dL [facility] Estimated Glomerular Filtration Rate 80 mL/min/1.73m >=60 mL/min/1.73m [facility] Glucose [Mass/Vol] 78 mg/dL 74 - 99 mg/dL [facility] Potassium [Moles/Vol] 4.9 mmol/L 3.7 - 5.1 mmol/L [facility] Protein [Mass/Vol] 6.7 g/dL 6.3 - 8.0 g/dL [facility] Sodium [Moles/Vol] 139 mmol/L 136 - 144 mmol/L [facility] Urea nitrogen [Mass/Vol] 30 mg/dL High 9 - 24 mg/d L [facility] MAGNESIUM BLDon 05-06-2022 Magnesium [Mass/Vol] 2.1 mg/dL 1.7 - 2 .3 mg/dL [facility] VITAMIN B6/PYRIDOXINon 05-06 Pyridoxine [Mass/Vol] 20.1 nmol/L 20.0 - 125.0 nmol/L [facility] VITAMIN E/TOCOPHEROLon 05-06 Alpha tocopherol [Mass/Vol] 11.5 mg/L 6.0 - 23.0 mg/L [facility] Nuclear Ab IA Ql (S)on 05-03 XU by EIA, Qual Negative Negative [facility] CBC panel Auto (Bld)on 05-02 Erythrocyte distribution width (RBC) [Ratio] 15.2 % High 11.5 - 15.0 % [facility] Hematocrit (Bld) [Volume fraction] 48.9 % 39.0 - 51.0 % [facility] Hemoglobin (Bld) [Mass/Vol] 15.9 g/dL 13.0 - 17.0 g/dL [facility] MCH (RBC) [Entitic mass] 30.6 pg 26. 0 - 34.0 pg [facility] MCHC (RBC) [Mass/Vol] 32.5 g/dL 30.5 - 36.0 g/dL [facility] MCV (RBC) [Entitic vol] 94.2 fL 80.0 - 100.0 fL [facility] Nucleated RBC (Bld) [#/Vol] <0.01 k/uL [facility] Platelet mean volume (Bld) [Entitic vol] 10.6 fL 9.0 - 12.7 fL [facility] Platelets (Bld) [#/Vol] 291 10*3/uL 150 - 400 k/uL [facility] RBC (Bld) [#/Vol] 5.19 10*6/uL 4.20 - 6.0 0 m/uL [facility] WBC (Bld) [#/Vol] 9.41 10*3/uL 3.70 - 11. 00 k/uL [facility] Comprehensive metabolic 2000 panelon 05-02-2022 Albumin [Mass/Vol] 3.9 g/dL 3.9 - 4.9 g/dL [facility] ALP [Catalytic activity/Vol] 103 U/L 38 - 113 U/L [facility] ALT [Catalytic activity/Vol] Low 10 - 54 U/L [facility] Anion gap [Moles/Vol] 8 mmol/L Low 9 - 18 mmol/L [facility] AST [Catalytic activity/Vol] 22 U/L 14 - 40 U/L [facility] Bilirubin [Mass/Vol] 0.5 mg/dL 0.2 - 1 .3 mg/dL [facility] Calcium [Mass/Vol] 10.1 mg/dL 8.5 - 10. 2 mg/dL [facility] Chloride [Moles/Vol] 100 mmol/L 97 - 10 5 mmol/L [facility] CO2 [Moles/Vol] 31 mmol/L High 22 - 30 mmol/L [facility] Creatinine [Mass/Vol] 0.92 mg/dL 0.73 - 1.22 mg/dL [facility] Estimated Glomerular Filtration Rate 88 mL/min/1.73m >=60 mL/min/1.73m [facility] Glucose [Mass/Vol] 85 mg/dL 74 - 99 mg/dL [facility] Potassium [Moles/Vol] 4.2 mmol/L 3.7 - 5.1 mmol/L [facility] Protein [Mass/Vol] 7.5 g/dL 6.3 - 8.0 g/dL [facility] Sodium [Moles/Vol] 139 mmol/L 136 - 144 mmol/L [facility] Urea nitrogen [Mass/Vol] 23 mg/dL 9 - 24 mg/d L [facility] ESR Westergren method (Bld) [Velocity]on 05-02-2022 ESR (Bld) [Velocity] 8 mm/h 0 - 15 mm/hr [facility] HEP A AB IGMon 05-02-2022 HAV IgM Ql (S) Negative Negative [facility] HEP B CORE AB IGMon 05-03-19 HBV core IgM Ql (S) Negative Negative [facility] HEP B SURF AG [facility] 023 HBV surface Ag Ql (S) Negative Negative [facility] HEP C AB IA W/CONF [facility] HCV Ab Ql (S) Negative Negative [facility] HbA1c (Bld)on 05-02-2022 Average glucose Estimated from glycated hemoglobin (Bld) [Mass/Vol] 114 mg/dL [facility] HbA1c (Bld) [Mass fraction] 5.6 % 4.3 - 5.6 % [facility] T4 FREE/FREE THYROXon 2022 Free T4 [Mass/Vol] 1.1 ng/dL 0.9 - 1.7 ng/dL [facility] TSH BLDon 05-02-2022 TSH Qn 2.860 m[IU]/L 0.270 - 4.200 mIU/L [facility] VITAMIN B12 BLOODon 05-03-19 23 Cobalamin (Vitamin B12) [Mass/Vol] 352 pg/mL 232 - 1,245 pg/mL [facility] Absolute lymphocyte counton 10-08-2021 Lymphocytes Auto (Unsp spec) [#/Vol] 0.61 10*3/uL 0.83-4.51 [facility] Work Phone: Basophil percentageon 2021 Basophils/100 WBC (Bld) 0.3 % 0-1 [facility] Work Phone: Chloride [Moles/Vol] 104 mmol/L 98-107 [facility] Work Phone: Eosinophils/100 WBC (Bld) 0.0 % 0-5 [facility] Work Phone: Glucose [Mass/Vol] 90 mg/dL 74-106 [facility] Work Phone: Neutrophils (Bld) [#/Vol] 9.6 10*3/uL 2.0-7.7 [facility] Work Phone: Neutrophils/100 WBC (Bld) 89.1 % 47-70 [facility] Work Phone: Potassium [Moles/Vol] 3.8 mmol/L 3.5-5.[address] [facility] Work Phone: Sodium [Moles/Vol] 136 mmol/L 136-145 [facility] Work Phone: WBC (Bld) [#/Vol] 10.7 10*3/uL 4.4-11.0 [facility] Work Phone: Blood erythrocytes count (nu mber/volume)on 10-08-2021 RBC (Bld) [#/Vol] 4.18 10*6/uL 4.6-6.2 [facility] Work Phone: Blood hemoglobin measurement (mass/volume)on 10-08-2021 Hemoglobin (Bld) [Mass/Vol] 12.8 g/dL 13.0-16.5 [facility] Work Phone: Blood lymphocytes/100 leukoc yteson 10-08-2021 Lymphocytes/100 WBC (Bld) 5.7 % 19-41 [facility] Work Phone: Blood monocytes/100 leukocyt eson 10-08-2021 Monocytes/100 WBC (Bld) 4.4 % 0-10 [facility] Work Phone: Blood platelet mean volumeon 10-08-2021 Platelet mean volume (Bld) [Entitic vol] 10.8 fL 6.2-12.0 [facility] Work Phone: Determination of erythrocyte mean corpuscular volume (MCV)on 10-08-2021 MCV (RBC) [Entitic vol] 91.9 fL 80-94 [facility] Work Phone: Hematocrit Auto (Bld) [Volum e fraction]on 10-08-2021 Hematocrit (Bld) [Volume fraction] 38.4 % 40-54 [facility] Work Phone: Laboratory - Chemistry and C hemistry - challengeon 10-08-2021 CO2 [Moles/Vol] 25.0 mmol/L 21.0-32.0 [facility] Work Phone: Urea nitrogen/Creatinine [Mass ratio] 16.4 mg/mg 10-20 [facility] Work Phone: Laboratory - Hematology and Cell countson 10-08-2021 Erythrocyte distribution width (RBC) [Entitic vol] 48.5 fL 35.1-43.9 [facility] Work Phone: Erythrocyte distribution width (RBC) [Ratio] 14.4 % 11.6-14.6 [facility] Work Phone: Immature granulocytes/100 WBC (Bld) 0.500 % 0.0-0.9 [facility] Work Phone: Comment on above: IG% - Immature Granu locytes (promyelocytes, myelocytes and metamyelocytes) > 1% indicates that a LEFT SHIFT is Present. MCH (RBC) [Entitic mass] 30.6 pg 27.0-32.0 [facility] Work Phone: Nucleated RBC/100 WBC (Bld) [Ratio] 0 % 0-5 [facility] Work Phone: MCHC Auto (RBC) [Mass/Vol]on 10-08-2021 MCHC (RBC) [Mass/Vol] 33.3 g/dL 32-[address] [facility] Work Phone: No Panel Informationon 10-08 Methicillin-Resist S.aureus DNA PCR Negative Negative [facility] Work Phone: Estimated Creatinine Clearance Calc 52.19 ml/min [facility] Work Phone: Estimated GFR (MDRD) Amer 84 mL/min >60 [facility] Work Phone: Comment on above: GFR Calc Estimated GFR (MDRD) Non-Af Amer 70 mL/min >60 [facility] Work Phone: Comment on above: Non- GFR Calc Platelets bldon 10-08-2021 Platelets (Bld) [#/Vol] 174 10*3/uL 150-450 [facility] Work Phone: Serum or plasma calcium hayden urement (mass/volume)on 10-08-2021 Calcium [Mass/Vol] 7.8 mg/dL 8.5-10.1 [facility] Work Phone: Serum or plasma creatinine m easurement (mass/volume)on 10-08-2021 Creatinine [Mass/Vol] 1.10 mg/dL 0.70-1.[address] [facility] Work Phone: Comment on above: The validity of the calculated GFR & GFRAA in patients over 70 years has not been determined. Clinical correlation is essential. Serum or plasma urea nitroge n measurement (mass/volume)on 10-08-2021 Urea nitrogen [Mass/Vol] 18 mg/dL 7-18 [facility] Work Phone: Thin prep Papanicolaou smear with manual screeningon 10-08-2021 Thin prep Papanicolaou smear with manual screening 7 5-15 [facility] Work Phone: Absolute lymphocyte counton 10-07-2021 Lymphocytes Auto (Unsp spec) [#/Vol] 0.26 10*3/uL 0.83-4.51 [facility] Work Phone: Basophil percentageon 2021 Lactate [Moles/Vol] 3.0 mmol/L 0.4-2.0 [facility] Work Phone: Comment on above: Critical Result(s) C alled at: 18:37:59 10/07/2021 by: ANGIE PORTER TO IZZY ROWLAND. Results read back by same. Basophils/100 WBC (Bld) 0.3 % 0-1 [facility] Work Phone: Bilirubin [Mass/Vol] 1.00 mg/dL 0.20-1.00 [facility] Work Phone: Comment on above: For patients on eltr ombopag therapy, use of Dimension [place] TBIL is not recommended. Chloride [Moles/Vol] 99 mmol/L 98-107 [facility] Work Phone: Eosinophils/100 WBC (Bld) 0.5 % 0-5 [facility] Work Phone: Glucose [Mass/Vol] 93 mg/dL 74-106 [facility] Work Phone: Lactate [Moles/Vol] 3.6 mmol/L 0.4-2.0 [facility] Work Phone: Comment on above: Critical Result(s) C alled at: 13:57:04 10/07/2021 by: Anthony Granados. Colby Campa RN (ER). Results read back by same. Neutrophils (Bld) [#/Vol] 16.0 10*3/uL 2.0-7.7 [facility] Work Phone: Neutrophils/100 WBC (Bld) 93.9 % 47-70 [facility] Work Phone: Potassium [Moles/Vol] 4.3 mmol/L 3.5-5.[address] [facility] Work Phone: Protein [Mass/Vol] 8.0 g/dL 6.4-8.2 [facility] Work Phone: Sodium [Moles/Vol] 135 mmol/L 136-145 [facility] Work Phone: WBC (Bld) [#/Vol] 17.0 10*3/uL 4.4-11.0 [facility] Work Phone: Blood erythrocytes count (nu mber/volume)on 10-07-2021 RBC (Bld) [#/Vol] 5.14 10*6/uL 4.6-6.2 [facility] Work Phone: Blood hemoglobin measurement (mass/volume)on 10-07-2021 Hemoglobin (Bld) [Mass/Vol] 15.7 g/dL 13.0-16.5 [facility] Work Phone: Blood lymphocytes/100 leukoc yteson 10-07-2021 Lymphocytes/100 WBC (Bld) 1.5 % 19-41 [facility] Work Phone: Blood monocytes/100 leukocyt eson 10-07-2021 Monocytes/100 WBC (Bld) 2.6 % 0-10 [facility] Work Phone: Blood platelet adequacy dete ction by light microscopyon 10-07-2021 Platelets LM Ql (Bld) ADEQUATE ADEQ [facility] Work Phone: Blood platelet mean volumeon 10-07-2021 Platelet mean volume (Bld) [Entitic vol] 10.6 fL 6.2-12.0 [facility] Work Phone: Determination of erythrocyte mean corpuscular volume (MCV)on 10-07-2021 MCV (RBC) [Entitic vol] 93.8 fL 80-94 [facility] Work Phone: Direct bilirubinon 2 Bilirubin.direct [Mass/Vol] 0.25 mg/dL 0.00-0.30 [facility] Work Phone: Hematocrit Auto (Bld) [Volum e fraction]on 10-07-2021 Hematocrit (Bld) [Volume fraction] 48.2 % 40-54 [facility] Work Phone: Laboratory - Chemistry and C hemistry - challengeon 10-07-2021 ALP [Catalytic activity/Vol] 86 U/L 45-117 [facility] Work Phone: ALT [Catalytic activity/Vol] 10 U/L 16-61 [facility] Work Phone: CO2 [Moles/Vol] 30.0 mmol/L 21.0-32.0 [facility] Work Phone: Globulin (S) [Mass/Vol] 4.6 g/dL 2.2-4.2 [facility] Work Phone: Urea nitrogen/Creatinine [Mass ratio] 12.9 mg/mg 10-20 [facility] Work Phone: Laboratory - Hematology and Cell countson 10-07-2021 Erythrocyte distribution width (RBC) [Entitic vol] 48.3 fL 35.1-43.9 [facility] Work Phone: Erythrocyte distribution width (RBC) [Ratio] 14.2 % 11.6-14.6 [facility] Work Phone: Immature granulocytes/100 WBC (Bld) 1.200 % 0.0-0.9 [facility] Work Phone: Comment on above: IG% - Immature Granu locytes (promyelocytes, myelocytes and metamyelocytes) > 1% indicates that a LEFT SHIFT is Present. MCH (RBC) [Entitic mass] 30.5 pg 27.0-32.0 [facility] Work Phone: Nucleated RBC/100 WBC (Bld) [Ratio] 0 % 0-5 [facility] Work Phone: MCHC Auto (RBC) [Mass/Vol]on 10-07-2021 MCHC (RBC) [Mass/Vol] 32.6 g/dL 32-[address] [facility] Work Phone: No Panel Informationon 10-07 Estimated Creatinine Clearance Calc 41.61 ml/min [facility] Work Phone: Estimated GFR (MDRD) Amer 64 mL/min >60 [facility] Work Phone: Comment on above: GFR Calc Estimated GFR (MDRD) Non-Af Amer 53 mL/min >60 [facility] Work Phone: Comment on above: Non- GFR Calc Platelets bldon 10-07-2021 Platelets (Bld) [#/Vol] 231 10*3/uL 150-450 [facility] Work Phone: RBC morphologyon 10-07-2021 RBC morphology finding Nom (Bld) NORM C+C NORMAL NORM C&C [facility] Work Phone: Serum or plasma albumin hayden urement (mass/volume)on 10-07-2021 Albumin [Mass/Vol] 3.4 g/dL 3.2-5.0 [facility] Work Phone: Serum or plasma calcium hayden urement (mass/volume)on 10-07-2021 Calcium [Mass/Vol] 8.9 mg/dL 8.5-10.1 [facility] Work Phone: Serum or plasma creatinine m easurement (mass/volume)on 10-07-2021 Creatinine [Mass/Vol] 1.39 mg/dL 0.70-1.[address] [facility] Work Phone: Comment on above: The validity of the calculated GFR & GFRAA in patients over 70 years has not been determined. Clinical correlation is essential. Serum or plasma urea nitroge n measurement (mass/volume)on 10-07-2021 Urea nitrogen [Mass/Vol] 18 mg/dL 7-18 [facility] Work Phone: Thin prep Papanicolaou smear with manual screeningon 10-07-2021 Thin prep Papanicolaou smear with manual screening 11 U/L 15-37 [facility] Work Phone: Thin prep Papanicolaou smear with manual screening 6 5-15 [facility] Work Phone: [place] 12[facility]28-[facility] KATHARINE LARSEN ([id number]) 1950 M Date Time Provider Department 12/28/20 NIKKIE ARRIAGA SEBASTIEN During your visit today, we recorded the following information about you: Grayson Goodman [place] [facility] 12/28/2020 8:08 AM Signed Placed an internal [facility] for a consult with Dr. Dontae Damon. Confirmation #[id number] Allergies As of Date: 12/28/2020 Noted Allergy Reaction PENICILLINS 01/20/2013 16 - Unknown Date Reviewed: 12/27/2020 Reviewed by: Nikkie Arriaga APRN.STRAW HAT PLUNGER OPERATOR - Fully Assessed Reason for Visit: [...] (HCC) [G20] 11/12/2018 Encounter Status:Closed by JAMAR CORE COMPOSER MACHINE TENDER LUX GRAYSON on 12/28/20 [facility] Office Visit (NRESBA ) SUZIEKATHARINE Jerod ([id number]) 1950 M Date Time Provider Department 12/27/20 3:30 PM JUAN R JOHN NRESBA During your visit today, we recorded the following information about you: Weight Height 61.2 kg 1.702 m Nikkie Arriaga APRN.CNP 12/29/2020 3:42 PM Signed [facility] - FOLLOW UP EVALUATION Jaiden Rivera, DO [address] [facility] [address] [facility] [id number] I had the pleasure of seeing Mr. [...] Medication Schedu (more content not included)... Normal [facility] Comprehensive Metabolic Pane qiana 06-09-2018 ALT enzyme act/vol U/L Normal 0-40 [facility] Albumin mass conc 3.7 g/dL Normal 3.5-5.2 [facility] ALP enzyme act/vol 85 U/L Normal 40-129 [facility] Anion gap molar conc 14 mmol/L Normal 7-16 [facility] AST enzyme act/vol 19 U/L Normal 0-39 [facility] Bilirubin mass conc 0.2 mg/dL Normal 0.0-1.2 [facility] Calcium mass conc 9.4 mg/dL Normal 8.6-10.2 [facility] Chloride molar conc 99 mmol/L Normal 98-107 [facility] CO2 molar conc 23 mmol/L Normal 22-29 [facility] Creatinine mass conc 1.2 mg/dL Normal 0.7-1.2 [facility] GFR/1.73 sq M predicted among blacks MDRD vol rate/area (S/P/Bld) mL/min/{1.73_m2} Normal [facility] GFR/1.73 sq M predicted among non-blacks MDRD vol rate/area (S/P/Bld) 60 mL/min/{1.73_m2} Normal >=60 [facility] Comment on above: Result Comment: Manager Salt vijay Kidney Disease: less than 60 ml/min/1.73 sq.m. Kidney Failure: less than 15 ml/min/1.73 sq.m. Results valid for patients 18 years and older. Glucose mass conc 100 mg/dL High 74-99 [facility] Potassium molar conc 4.9 mmol/L Normal 3.5-5.0 [facility] Protein mass conc 7.7 g/dL Normal 6.4-8.3 [facility] Sodium molar conc 136 mmol/L Normal 132-146 [facility] Urea nitrogen mass conc 15 mg/dL Normal 8-23 [facility] Lipid Panelon 06-09-2018 Cholesterol in HDL mass conc 49 mg/dL Normal >40 [facility] Cholesterol in LDL mass conc 69 mg/dL Normal 0-99 [facility] Cholesterol mass conc 150 mg/dL Normal 0-199 [facility] Triglyceride mass conc 159 mg/dL High 0-149 [facility] VLDL Cholesterol (Calculated) 32 mg/dL Normal [facility] UR Microalbumin/Creatinine R atio Randomon 06-09-2018 Microalbumin/Creatinine Ratio 14.4 Normal 0.0-30.0 [facility] UR Creatinine Random 180 mg/dL Normal 40-278 [facility] UR Microalbumin Random 26.0 mg/L High Not Established [facility] Progress Noteon 05-05-2017 HIM IP Note OR Line Builder Normal [facility] HIM IP Note OR Line Builder Normal [facility] Bacteria identified Cx Nom ( Wound) Wound Culture Negative [facility] Work Phone: Gram stain for investigation of transfusion reaction Microscopic observation Gram stain Nom (Unsp spec) [facility] Work Phone: Laboratory - Microbiology an d Antimicrobial susceptibility Bacteria identified Cx Nom (Bld) No growth in 5 days. [facility] Work Phone: Vital Signs Date Time Vital Sign Value Performing Clinician Facility 07-22-2024 10:13-0400 Body height 170.2 cm Taisha John LEASING SALES CONSULTANT.STRAW HAT PLUNGER OPERATOR Work Phone: [facility] 07-22-2024 10:13-0400 Diastolic blood pressure 84 mm[Hg] Taisha John LEASING SALES CONSULTANT.STRAW HAT PLUNGER OPERATOR Work Phone: [facility] 07-22-2024 10:13-0400 Heart rate 96 /min Taisha John LEASING SALES CONSULTANT.STRAW HAT PLUNGER OPERATOR Work Phone: [facility] 07-22-2024 10:13-0400 SaO2% (BldA) [Mass fraction] 98 % Taisha John LEASING SALES CONSULTANT.STRAW HAT PLUNGER OPERATOR Work Phone: [facility] 07-22-2024 10:13-0400 Systolic blood pressure 130 mm[Hg] Taisha John LEASING SALES CONSULTANT.STRAW HAT PLUNGER OPERATOR Work Phone: [facility] 07-02-2024 11:00-0400 Diastolic blood pressure 97 mm[Hg] Carolina Damon MD Work Phone: [facility] 07-02-2024 11:00-0400 Heart rate 81 /min Carolina Damon MD Work Phone: [facility] 07-02-2024 11:00-0400 SaO2% (BldA) [Mass fraction] 95 % Carolina Damon MD Work Phone: [facility] 07-02-2024 11:00-0400 Systolic blood pressure 161 mm[Hg] Carolina Damon MD Work Phone: [facility] 04-02-2024 09:39-0500 Diastolic blood pressure 105 mm[Hg] Carolina Damon MD Work Phone: [facility] 04-02-2024 09:39-0500 Heart rate 88 /min Carolina Damon MD Work Phone: [facility] 04-02-2024 09:39-0500 SaO2% (BldA) [Mass fraction] 96 % Carolina Damon MD Work Phone: [facility] 04-02-2024 09:39-0500 Systolic blood pressure 172 mm[Hg] Carolina Damon MD Work Phone: [facility] 03-16-2024 15:37-0500 Body height 170.2 cm Taisha John LEASING SALES CONSULTANT.STRAW HAT PLUNGER OPERATOR Work Phone: [facility] 03-16-2024 15:37-0500 Diastolic blood pressure 87 mm[Hg] Taisha John LEASING SALES CONSULTANT.STRAW HAT PLUNGER OPERATOR Work Phone: [facility] 03-16-2024 15:37-0500 Heart rate 95 /min Taisha John LEASING SALES CONSULTANT.STRAW HAT PLUNGER OPERATOR Work Phone: [facility] 03-16-2024 15:37-0500 SaO2% (BldA) [Mass fraction] 99 % Taisha John LEASING SALES CONSULTANT.STRAW HAT PLUNGER OPERATOR Work Phone: [facility] 03-16-2024 15:37-0500 Systolic blood pressure 139 mm[Hg] Taisha John LEASING SALES CONSULTANT.STRAW HAT PLUNGER OPERATOR Work Phone: [facility] 11-14-2023 10:18-0400 Diastolic blood pressure 93 mm[Hg] Carolina Damon MD Work Phone: [facility] 11-14-2023 10:18-0400 Heart rate 65 /min Carolina Damon MD Work Phone: [facility] 11-14-2023 10:18-0400 SaO2% (BldA) [Mass fraction] 99 % Carolina Damon MD Work Phone: [facility] 11-14-2023 10:18-0400 Systolic blood pressure 158 mm[Hg] Carolina Damon MD Work Phone: [facility] 11-07-2023 09:10-0400 Diastolic blood pressure 101 mm[Hg] Taisha John LEASING SALES CONSULTANT.STRAW HAT PLUNGER OPERATOR Work Phone: [facility] 11-07-2023 09:10-0400 Heart rate 80 /min Taisha John APRN.STRAW HAT PLUNGER OPERATOR Work Phone: [facility] 11-07-2023 09:10-0400 Systolic blood pressure 160 mm[Hg] Taisha John APRN.STRAW HAT PLUNGER OPERATOR Work Phone: [facility] 11-07-2023 07:57-0400 SaO2% (BldA) [Mass fraction] 98 % Taisha John APRN.STRAW HAT PLUNGER OPERATOR Work Phone: [facility] 07-18-2023 12:14-0400 Diastolic blood pressure 79 mm[Hg] Carolina Damon MD Work Phone: [facility] 07-18-2023 12:14-0400 Heart rate 78 /min Carolina Damon MD Work Phone: [facility] 07-18-2023 12:14-0400 SaO2% (BldA) [Mass fraction] 100 % Carolina Damon MD Work Phone: [facility] 07-18-2023 12:14-0400 Systolic blood pressure 153 mm[Hg] Carolina Damon MD Work Phone: [facility] 07-17-2023 08:27-0400 Body mass index (BMI) [Ratio] 18.23 kg/m2 Juan R John MD Work Phone: [facility] 07-17-2023 08:27-0400 Body weight 52.8 kg Juan R John MD Work Phone: [facility] 07-17-2023 08:27-0400 Diastolic blood pressure 111 mm[Hg] Jua nR John MD Work Phone: [facility] 07-17-2023 08:27-0400 Heart rate 79 /min Juan R John MD Work Phone: [facility] 07-17-2023 08:27-0400 Respiratory rate 16 /min Juan R John MD Work Phone: [facility] 07-17-2023 08:27-0400 SaO2% (BldA) [Mass fraction] 97 % Juan R John MD Work Phone: [facility] 07-17-2023 08:27-0400 Systolic blood pressure 175 mm[Hg] Juan R John MD Work Phone: [facility] 03-19-2023 10:10-0500 Body temperature 97.8 [degF] Dr. Nico Schmidt Work Phone: [facility] 03-19-2023 10:10-0500 Diastolic blood pressure 86 mm[Hg] Dr. Nico Schmidt Work Phone: [facility] 03-19-2023 10:10-0500 Heart rate 83 /min Dr. Nico Schmidt Work Phone: [facility] 03-19-2023 10:10-0500 Respiratory rate 18 /min Dr. Nico Schmidt Work Phone: [facility] 03-19-2023 10:10-0500 SaO2% (BldA) [Mass fraction] 95 % Dr. Nico Schmidt Work Phone: [facility] 03-19-2023 10:10-0500 Systolic blood pressure 146 mm[Hg] Dr. Nico Schmidt Work Phone: [facility] 03-18-2023 12:15-0500 Body mass index (BMI) [Ratio] 19.9 kg/m2 Dr. Nico Schmidt Work Phone: [facility] 03-18-2023 12:15-0500 Body weight 57.[address] Nico Schmidt Work Phone: [facility] 03-14-2023 09:06-0500 Body height [address] Nico Schmidt Work Phone: [facility] 02-01-2023 10:00-0500 Heart rate 72 /min Dr. Nico Schmidt Work Phone: [facility] 02-01-2023 10:00-0500 SaO2% (BldA) [Mass fraction] 100 % Dr. Nico Schmidt Work Phone: [facility] 02-01-2023 09:11-0500 Body temperature 98.6 [degF] Dr. Nico Schmidt Work Phone: [facility] 02-01-2023 09:11-0500 Diastolic blood pressure 53 mm[Hg] Dr. Nico Schmidt Work Phone: [facility] 02-01-2023 09:11-0500 Respiratory rate 16 /min Dr. Nico Schmidt Work Phone: [facility] 02-01-2023 09:11-0500 Systolic blood pressure 116 mm[Hg] Dr. Nico Schmidt Work Phone: [facility] 02-01-2023 06:54-0500 Body mass index (BMI) [Ratio] 18.2 kg/m2 Dr. Nico Schmidt Work Phone: [facility] 02-01-2023 06:54-0500 Body weight 52.[address] Nico Schmidt Work Phone: [facility] 01-29-2023 14:13-0500 Body height 170.[address] Nico Schmidt Work Phone: [facility] 01-15-2023 22:21-0500 Inhaled oxygen flow rate 1 L/min Dr. Nico Schmidt Work Phone: [facility] 12-25-2022 19:35-0500 Diastolic blood pressure 91 mm[Hg] [facility] 12-25-2022 19:35-0500 Heart rate 81 /min [facility] 12-25-2022 19:35-0500 Respiratory rate 14 /min [facility] 12-25-2022 19:35-0500 SaO2% (BldA) [Mass fraction] 99 % [facility] 12-25-2022 19:35-0500 Systolic blood pressure 147 mm[Hg] [facility] 12-25-2022 13:40-0500 Body height 170.18 cm [facility] 12-25-2022 13:40-0500 Body mass index (BMI) [Ratio] 19.3 kg/m2 [facility] 12-25-2022 13:40-0500 Body temperature 98.2 [degF] [facility] 12-25-2022 13:40-0500 Body weight 55.9 kg [facility] 09-20-2022 09:25-0400 Diastolic blood pressure 79 mm[Hg] Carolina Damon MD Work Phone: [facility] 09-20-2022 09:25-0400 Heart rate 90 /min Carolina Damon MD Work Phone: [facility] 09-20-2022 09:25-0400 Systolic blood pressure 120 mm[Hg] Carolina Damon MD Work Phone: [facility] 09-20-2022 08:52-0400 Body height 172.7 cm Carolina Damon MD Work Phone: [facility] 09-20-2022 08:52-0400 Body weight 58.42 kg Carolina Damon MD Work Phone: [facility] 09-20-2022 08:52-0400 SaO2% (BldA) [Mass fraction] 98 % Carolina Damon MD Work Phone: [facility] 07-23-2022 18:00-0400 Body temperature 99.3 [degF] [facility] 07-23-2022 18:00-0400 Diastolic blood pressure 71 mm[Hg] [facility] 07-23-2022 18:00-0400 Heart rate 96 /min [facility] 07-23-2022 18:00-0400 Respiratory rate 31 /min [facility] [facility] 07-23-2022 18:00-0400 SaO2% (BldA) [Mass fraction] 95 % [facility] 07-23-2022 18:00-0400 Systolic blood pressure 133 mm[Hg] [facility] 07-23-2022 14:27-0400 Body height 172.72 cm [facility] 07-23-2022 14:27-0400 Body mass index (BMI) [Ratio] 20.6 kg/m2 [facility] 07-23-2022 14:27-0400 Body weight 61.6 kg [facility] 04-24-2022 14:39-0500 Diastolic blood pressure 89 mm[Hg] Luther Vega MD Work Phone: [facility] 04-24-2022 14:39-0500 Heart rate 91 /min Luther Vega MD Work Phone: [facility] 04-24-2022 14:39-0500 Respiratory rate 16 /min Luther Vega MD Work Phone: [facility] 04-24-2022 14:39-0500 SaO2% (BldA) [Mass fraction] 99 % Luther Vega MD Work Phone: [facility] 04-24-2022 14:39-0500 Systolic blood pressure 145 mm[Hg] Luther Vega MD Work Phone: [facility] 04-02-2022 15:32-0500 Diastolic blood pressure 91 mm[Hg] Carolina Damon MD Work Phone: [facility] 04-02-2022 15:32-0500 Heart rate 84 /min Carolina Damon MD Work Phone: [facility] 04-02-2022 15:32-0500 SaO2% (BldA) [Mass fraction] 99 % Carolina Damon MD Work Phone: [facility] 04-02-2022 15:32-0500 Systolic blood pressure 151 mm[Hg] Carolina Damon MD Work Phone: [facility] 03-25-2022 18:33-0500 Body height 172.72 cm [facility] 03-25-2022 18:33-0500 Body mass index (BMI) [Ratio] 18.2 kg/m2 [facility] 03-25-2022 18:33-0500 Body temperature 98 [degF] [facility] 03-25-2022 18:33-0500 Body weight 54.43 kg [facility] 03-25-2022 18:33-0500 Diastolic blood pressure 82 mm[Hg] [facility] 03-25-2022 18:33-0500 Heart rate 94 /min [facility] 03-25-2022 18:33-0500 Respiratory rate 14 /min [facility] 03-25-2022 18:33-0500 SaO2% (BldA) [Mass fraction] 100 % [facility] 03-25-2022 18:33-0500 Systolic blood pressure 131 mm[Hg] [facility] 02-26-2022 10:59-0500 Body height 174 cm Carolina Damon MD Work Phone: [facility] 02-26-2022 10:59-0500 Body weight 55.61 kg Carolina Damon MD Work Phone: [facility] 02-26-2022 10:59-0500 Diastolic blood pressure 77 mm[Hg] Carolina Damon MD Work Phone: [facility] 02-26-2022 10:59-0500 Heart rate 79 /min Carolina Damon MD Work Phone: [facility] 02-26-2022 10:59-0500 SaO2% (BldA) [Mass fraction] 99 % Carolina Damon MD Work Phone: [facility] 02-26-2022 10:59-0500 Systolic blood pressure 132 mm[Hg] Carolina Damon MD Work Phone: [facility] 02-14-2022 16:16-0500 Body height 172.7 cm Juan R John MD Work Phone: [facility] 02-14-2022 16:16-0500 Body weight 54.7 kg Juan R John MD Work Phone: [facility] 02-14-2022 16:16-0500 Diastolic blood pressure 92 mm[Hg] Juan R John MD Work Phone: [facility] 02-14-2022 16:16-0500 Heart rate 87 /min Juan R Jhon MD Work Phone: [facility] 02-14-2022 16:16-0500 SaO2% (BldA) [Mass fraction] 99 % Juan R John MD Work Phone: [facility] 02-14-2022 16:16-0500 Systolic blood pressure 131 mm[Hg] Juan R John MD Work Phone: [facility] 10-09-2021 10:40-0400 Body temperature 98.7 [degF] [facility] Work Phone: 10-09-2021 10:40-0400 Diastolic blood pressure 71 mm[Hg] [facility] Work Phone: 10-09-2021 10:40-0400 Heart rate 79 /min [facility] Work Phone: 10-09-2021 10:40-0400 Respiratory rate 18 /min [facility] Work Phone: 10-09-2021 10:40-0400 SaO2% (BldA) [Mass fraction] 98 % [facility] Work Phone: 10-09-2021 10:40-0400 Systolic blood pressure 124 mm[Hg] [facility] Work Phone: 10-09-2021 04:40-0400 Body temperature 99.3 [degF] [facility] Work Phone: 10-09-2021 04:40-0400 Diastolic blood pressure 85 mm[Hg] [facility] Work Phone: 10-09-2021 04:40-0400 Heart rate 78 /min [facility] Work Phone: 10-09-2021 04:40-0400 Respiratory rate 18 /min [facility] Work Phone: 10-09-2021 04:40-0400 SaO2% (BldA) [Mass fraction] 100 % [facility] Work Phone: 10-09-2021 04:40-0400 Systolic blood pressure 141 mm[Hg] [facility] Work Phone: 10-07-2021 16:03-0400 Body height 172.72 cm [facility] Work Phone: 10-07-2021 16:03-0400 Body mass index (BMI) [Ratio] 20.3 kg/m2 [facility] Work Phone: 10-07-2021 16:03-0400 Body weight 60.78 kg Nico [facility] Work Phone: 10-07-2021 14:47-0400 Body temperature 98.3 [degF] [facility] Work Phone: 10-07-2021 14:47-0400 Diastolic blood pressure 68 mm[Hg] [facility] Work Phone: 10-07-2021 14:47-0400 Heart rate 90 /min [facility] Work Phone: 10-07-2021 14:47-0400 Respiratory rate 18 /min [facility] Work Phone: 10-07-2021 14:47-0400 Systolic blood pressure 110 mm[Hg] [facility] Work Phone: 10-07-2021 12:38-0400 Body height 172.72 cm Nico [facility] Work Phone: 10-07-2021 12:38-0400 Body mass index (BMI) [Ratio] 20.5 kg/m2 [facility] Work Phone: 10-07-2021 12:38-0400 Body weight 61.23 kg Nico [facility] Work Phone: 08-10-2021 17:37-0400 Body temperature 98.1 [degF] [facility] Work Phone: 08-10-2021 17:37-0400 Diastolic blood pressure 78 mm[Hg] [facility] Work Phone: 08-10-2021 17:37-0400 Heart rate 74 /min [facility] Work Phone: 08-10-2021 17:37-0400 Respiratory rate 17 /min [facility] Work Phone: 08-10-2021 17:37-0400 SaO2% (BldA) [Mass fraction] 97 % [facility] Work Phone: 08-10-2021 17:37-0400 Systolic blood pressure 144 mm[Hg] [facility] Work Phone: 06-11-2021 15:21-0400 Body temperature 97.5 [degF] [facility] Work Phone: 06-11-2021 15:21-0400 Diastolic blood pressure 60 mm[Hg] [facility] Work Phone: 06-11-2021 15:21-0400 Heart rate 79 /min [facility] Work Phone: 06-11-2021 15:21-0400 Respiratory rate 16 /min [facility] Work Phone: 06-11-2021 15:21-0400 SaO2% (BldA) [Mass fraction] 99 % [facility] Work Phone: 06-11-2021 15:21-0400 Systolic blood pressure 122 mm[Hg] [facility] Work Phone: 06-06-2021 11:29-0400 Body height 172.72 cm [facility] Work Phone: 06-06-2021 11:29-0400 Body mass index (BMI) [Ratio] 20.5 kg/m2 [facility] Work Phone: 06-06-2021 11:29-0400 Body temperature 96.8 [degF] [facility] Work Phone: 06-06-2021 11:29-0400 Body weight 61.23 kg [facility] Work Phone: 06-06-2021 11:29-0400 Diastolic blood pressure 71 mm[Hg] [facility] Work Phone: 06-06-2021 11:29-0400 Heart rate 62 /min [facility] Work Phone: 06-06-2021 11:29-0400 Respiratory rate 18 /min [facility] Work Phone: 06-06-2021 11:29-0400 SaO2% (BldA) [Mass fraction] 92 % [facility] Work Phone: 06-06-2021 11:29-0400 Systolic blood pressure 106 mm[Hg] [facility] Work Phone: 10-28-2019 14:50-0400 Body mass index (BMI) [Ratio] 30.4 kg/m2 [facility] Work Phone: 06-24-2018 13:29-0400 BMI (Body Mass Index) 29.41 kg/m2 [facility] [facility] Work Phone: 06-24-2018 13:29-0400 BP Diastolic 71 mm[Hg] Juan R Rosado [facility] [place] [facility] Work Phone: Comment on above: Location: [facility]; Position: Sitting 06-24-2018 13:29-0400 BP Systolic 107 mm[Hg] [facility] [place] [facility] Work Phone: Comment on above: Location: [facility]; Position: Sitting 06-24-2018 13:29-0400 BSA (Body Surface Area) 2.06 m2 [facility] [facility] Work Phone: 06-24-2018 13:29-0400 Height 175.26 cm [facility] [place] [facility]25 Work Phone: 06-24-2018 13:29-0400 Pulse (Heart Rate) 101 /min [facility] [facility] Work Phone: 06-24-2018 13:29-0400 Respiratory Rate 18 /min [facility] [facility] Work Phone: 06-24-2018 13:29-0400 Weight 90.32 kg [facility] [place] [facility]27 Work Phone: Encounters Encounter Date Encounter Type [...] Start: 07-22-2024 End: 07-22-2024 ambulatory TAISHA JOHN Facility:[facility] Start: 07-02-2024 End: 07-02-2024 Patient encounter procedure Carolina Damon MD Work Phone: Neurology Comment on above: Dystonia of extremit y (Primary Dx) Start: 07-02-2024 End: 07-02-2024 ambulatory CAROLINA DAMON Facility:[facility] Start: 05-06-2024 End: 05-06-2024 Refill Taisha John APRN.STRAW HAT PLUNGER OPERATOR Work Phone: [facility] Comment on above: Refill Request Start: 04-02-2024 End: 05-03-2024 E-mail encounter from caregiver Carolina Damon MD Work Phone: Neurology Start: 04-02-2024 End: 04-02-2024 ambulatory CAROLINA DAMON Facility:[facility] Start: 04-02-2024 End: 05-03-2024 Patient encounter procedure Carolina Damon MD Work Phone: Neurology Comment on above: Dystonia of foot (Pr imary Dx) 06/03/2024 Botox Appo intment Start: 03-16-2024 End: 03-16-2024 Patient encounter procedure Taisha John APRN.STRAW HAT PLUNGER OPERATOR Work Phone: Neurology Comment on above: Parkinson's disease with dyskinesia and fluctuating manifestations (HCC) (Primary Dx); Dysphagia, unspecified type; Dystonia Start: 03-16-2024 End: 03-16-2024 ambulatory TAISHA JOHN Facility:[facility] Start: 01-05-2024 End: 01-05-2024 Refill Juan R John MD Work Phone: [facility] Comment on above: Refill Request Start: 12-05-2023 End: 12-05-2023 ambulatory Nico Schmidt Facility:[facility] Start: 11-28-2023 End: 11-28-2023 ambulatory KAYODE GUZMAN Facility:[facility] Start: 11-28-2023 End: 11-28-2023 Office consultation new/estab patient 60 min Kayode Guzman MD Work Phone: Urology Comment on above: Urinary incontinence , unspecified type (Primary Dx); Overactive bladder; Urinary tract infection without hematuria, site unspecified Start: 11-14-2023 End: 11-14-2023 ambulatory CAROLINA DAMON Facility:[facility] Start: 11-14-2023 End: 11-14-2023 Patient encounter procedure Carolina Damon MD Work Phone: Neurology Comment on above: Dystonia of foot (Pr imary Dx) Start: 11-07-2023 End: 11-07-2023 ambulatory TAISHA JOHN Facility:[facility] Start: 11-07-2023 End: 11-07-2023 Patient encounter procedure Taisha John APRN.STRAW HAT PLUNGER OPERATOR Work Phone: Neurology Comment on above: Overactive bladder ( Primary Dx); Parkinson's disease with dyskinesia and fluctuating manifestations (HCC); Dystonia; Urinary tract infection without hematuria, site unspecified; Insomnia due to medical condition Start: 08-13-2023 End: 08-13-2023 ambulatory Nico Schmidt Facility:[facility] Start: 08-11-2023 Telephone encounter Michaela nolan APRN.STRAW HAT PLUNGER OPERATOR Work Phone: [facility] Comment on above: Appointment Start: 07-21-2023 End: 07-21-[facility] Start: 07-18-2023 End: 07-18-2023 Patient encounter procedure [...] 06-19-[address] Nico Schmidt Work Phone: [facility] Work Phone: Start: 06-19-2023 End: 06-19-[address] Nico Schmidt Work Phone: [facility] Start: 06-19-2023 Telephone encounter Taisha mack APRN.STRAW HAT PLUNGER OPERATOR Work Phone: [facility] Comment on above: Medication Question Start: 06-19-2023 End: 06-19-2023 [facility] Start: 05-23-2023 Telephone encounter Michaela nolan APRN.STRAW HAT PLUNGER OPERATOR Work Phone: [facility] Comment on above: Appointment Start: 05-21-2023 End: 05-21-[address] Nico Schmidt Work Phone: [facility] Work Phone: Start: 05-21-2023 End: 05-21-[address] Nico Schmidt Work Phone: [facility]-Home Health Lab Start: 05-21-2023 End: 05-21-2023 ambulatory Nico Schmidt Facility:[facility] Start: 05-09-2023 End: 05-09-2023 ambulatory Michaela Mancini APRN.CNP Work Phone: [facility] Comment on above: NO SHOW (Primary Dx) Start: 05-09-2023 End: 05-09-2023 Telemedicine consultation with patient Michaela Hernandezvolodymyr PUTNAM Work Phone: [facility] Start: 05-06-2023 Telephone encounter Taisha mack APRN.STRAW HAT PLUNGER OPERATOR Work Phone: [facility] Comment on above: Medication Question Start: 04-08-2023 End: 04-08-2023 ambulatory Taisha John APRN.CNP Work Phone: Neurology Comment on above: Dysphagia, unspecifi ed type (Primary Dx); Parkinson's disease with dyskinesia and fluctuating manifestations; Focal dystonia Start: 04-08-2023 End: 04-08-2023 Telemedicine consultation with patient Taisha John APRN.STRAW HAT PLUNGER OPERATOR Work Phone: [facility] Start: 04-01-2023 E-mail encounter fro m caregiver [facility] Provider [facility] Start: 04-01-2023 Patient encounter procedure [facility] Comment on above: Palliative medicine virtual visit appointment Start: 03-21-2023 End: 03-21-2023 ambulatory Michaela Mancini APRN.STRAW HAT PLUNGER OPERATOR Work Phone: [facility] Comment on above: Encounter for pallia tive care (Primary Dx); Parkinson's disease with dyskinesia and fluctuating manifestations; Oropharyngeal dysphagia; Muscle cramps; Night muscle spasms; Generalized weakness; Chronic insomnia Parkinson's disease with fluctuating manifestations, unspecified whether dyskinesia present (HCC) (Primary Dx) Start: 03-21-2023 End: 03-21-2023 Telemedicine consultation with patient Michaela Mancini APRN.STRAW HAT PLUNGER OPERATOR Work Phone: [facility] Start: 03-11-2023 ambulatory Jakob Mohan Facility:[facility] Start: 03-11-2023 Non-patient / Non-visit Dr. Mina Schmidt Work Phone: [facility] Start: 03-11-2023 End: 03-11-[address] Nico Schmidt Work Phone: [facility]Cardiovascula r Services Work Phone: Start: 03-11-2023 End: 03-11-2023 ambulatory Freddy [facility]IC Shree Facility:[facility] Start: 02-27-2023 End: 03-19-2023 Evaluation and management of inpatient Dr. Nico Schmidt Work Phone: [facility]-Transitional Care Unit Start: 02-21-2023 End: 02-21-2023 ambulatory Michaela Mancini APRN.STRAW HAT PLUNGER OPERATOR Work Phone: [employer] Comment on above: Dysphagia, unspecifi ed type (Primary Dx); Parkinson's disease without dyskinesia or fluctuating manifestations (HCC) Start: 02-21-2023 End: 02-21-2023 Telemedicine consultation with patient Michaela Mancini APRN.STRAW HAT PLUNGER OPERATOR Work Phone: [facility] Start: 02-13-2023 ambulatory Nico Schmidt Facility:[facility] Start: 01-31-2023 Non-patient / Non-visit Dr. Mina Schmidt Work Phone: [facility] Work Phone: Start: 01-29-2023 Non-patient / Non-visit Dr. Mina Schmidt Work Phone: [facility] Work Phone: Start: 01-28-2023 Non-patient / Non-visit Dr. Mina Schmidt Work Phone: [facility] Work Phone: Start: 01-27-2023 Non-patient / Non-visit Dr. Mina Schmidt Work Phone: [facility] Work Phone: Start: 01-22-2023 Non-patient / Non-visit Dr. Mina Schmidt Work Phone: [facility] Work Phone: Start: 01-16-2023 Refill Juan R alejandre MD Work Phone: [facility] Comment on above: Refill Request Start: 01-16-2023 Non-patient / Non-visit Dr. Mina Schmidt Work Phone: [facility] Work Phone: Start: 01-15-2023 Non-patient / Non-visit Dr. Mina Schmidt Work Phone: [facility] Work Phone: Start: 01-14-2023 ambulatory [facility] Start: 01-14-2023 End: 02-01-2023 Evaluation and management of inpatient Dr. Nico Schmidt Work Phone: [facility]-Rehab Unit Work Phone: Start: 01-08-2023 Telephone encounter [facility] Comment on above: [id number] Palliative Car e Start: 01-07-2023 End: 01-07-2023 Evaluation and management of inpatient NICO SCHMIDT Facility:[facility] Start: 12-31-2022 Telephone encounter Juan R John MD Work Phone: Neurology Comment on above: Patient Update Start: 12-27-2022 End: 12-27-2022 ambulatory NICO SCHMIDT Facility:[facility] Start: 12-26-2022 Telephone encounter Juan R John MD Work Phone: [facility] Comment on above: Patient Update Start: 12-25-2022 End: 01-14-2023 Evaluation and management of inpatient UNKNOWN PROVIDER Facility:[facility] Start: 12-25-2022 End: 12-25-2022 Emergency department patient visit [facility]-Emergency Department Work Phone: Start: 12-24-2022 End: 12-24-2022 ambulatory Juan R John MD Work Phone: [facility] Comment on above: Parkinson's disease without dyskinesia, with fluctuating manifestations (Primary Dx); Dysphagia, unspecified type Start: 12-24-2022 End: 12-24-2022 Telemedicine consultation with patient Juan R John MD Work Phone: [facility] Start: 10-22-2022 Refill Juan R alejandre MD Work Phone: [facility] Comment on above: Refill Request Start: 10-08-2022 Telephone encounter Juan R John MD Work Phone: [facility] Comment on above: Medication Question Start: 09-20-2022 End: 09-20-2022 Patient encounter procedure Carolina Damon MD Work Phone: Neurology Comment on above: Dystonia of foot (Pr imary Dx) Refill Request Start: 07-23-2022 Evaluation and manag ement of inpatient [facility]-Progressive Care Unit Start: 06-06-2022 Telephone encounter Carolina gibson MD Work Phone: Neurology Comment on above: error Start: 04-29-2022 End: 05-12-2022 Subsequent hospital visit by physician Luther Vega MD Work Phone: [facility] Start: 04-25-2022 End: 04-25-2022 ambulatory Gayle Alicea PT, DPT [facility] Comment on above: [...] 04-18-2022 Telephone encounter Gayle coronado PT, T [facility] Comment on above: Appointment Start: 04-02-2022 End: 04-02-2022 Patient encounter procedure Carolina Damon MD Work Phone: Neurology Comment on above: Parkinson's disease (HCC) (Primary Dx) Start: 04-02-2022 End: 04-02-2022 ambulatory Teresa Ferguson [facility] Work Phone: [facility] Speech [facility] Comment on above: Parkinson's disease (HCC) (Primary Dx) Parkinson's disease (HCC) (Primary Dx); Decreased activities of daily living (ADL) Start: 04-02-2022 End: 04-02-2022 ambulatory Gayle Alicea PT, [facility] Comment on above: Parkinson's disease (HCC) Start: 03-25-2022 End: 03-25-2022 Emergency department patient visit [facility]-Emergency Department Start: 02-26-2022 End: 02-26-2022 Patient encounter procedure Carolina Damon MD Work Phone: Neurology Comment on above: Dystonia of foot (Pr imary Dx) Start: 02-20-2022 Telephone encounter Juan R John MD Work Phone: [facility] Comment on above: [facility] Start: 02-14-2022 End: 02-14-2022 Patient encounter procedure Juan R John MD Work Phone: Neurology Comment on above: Parkinson's disease (HCC) (Primary Dx) Start: 02-14-2022 Telephone encounter Juan R John MD Work Phone: Neurology Comment on above: Appointment Start: 11-23-2021 End: 11-23-2021 ambulatory Juan R John MD Work Phone: [facility] Comment on above: Parkinson's disease (HCC) (Primary Dx) Start: 11-23-2021 End: 11-23-2021 Telemedicine consultation with patient Juan R John MD Work Phone: [facility] Start: 10-09-2021 End: 10-09-2021 ambulatory [facility] Work Phone: Start: 10-09-2021 End: 10-09-2021 Discharged Recurring [facility]-Patient Link Start: 10-09-2021 Registered Recurring [facility]-Patient Link Start: 10-09-2021 Non-patient / Non-visit [facility] Start: 10-09-2021 Non-patient / Non-visit [facility] Start: 10-08-2021 Non-patient / Non-visit [facility] Start: 10-07-2021 Non-patient / Non-visit [facility] Start: 10-07-2021 End: 10-09-2021 Evaluation and management of inpatient [facility]-Medical Surgical 3 Start: 10-01-2021 End: 10-01-2021 ambulatory [facility] Work Phone: Start: 10-01-2021 End: 10-01-2021 Discharged Recurring [facility]-Physical Therapy Start: 10-01-2021 Registered Recurring [facility]-Physical Therapy Start: 09-13-2021 Refill Juan R alejandre MD Work Phone: [facility] Comment on above: Refill Request Start: 09-07-2021 End: 09-07-2021 ambulatory Juan R John MD Work Phone: [facility] Comment on above: Parkinson's disease (HCC) (Primary Dx) Start: 09-07-2021 End: 09-07-2021 Telemedicine consultation with patient Juan R John MD Work Phone: [facility] Start: 08-27-2021 Registered Recurring [facility] Start: 08-24-2021 Refill Juan R alejandre MD Work Phone: [facility] Comment on above: Refill Request; Refi ll Request Start: 08-23-2021 End: 08-23-2021 Patient encounter procedure [facility] Start: 08-10-2021 End: 08-10-2021 Patient encounter procedure [facility] Start: 07-20-2021 Telephone encounter Juan R John MD Work Phone: [facility] Comment on above: Orders Start: 06-22-2021 End: 06-22-2021 ambulatory Juan R John MD Work Phone: [facility] Comment on above: Parkinson's disease (HCC) (Primary Dx) Start: 06-22-2021 End: 06-22-2021 Telemedicine consultation with patient Juan R John MD Work Phone: [facility] Start: 06-11-2021 End: 06-11-2021 Patient encounter procedure [facility] Start: 06-06-2021 End: 06-06-2021 Emergency department patient visit [facility]-Emergency Department Start: 03-07-2021 End: 03-07-2021 Discharged Recurring [facility] Start: 06-24-2018 Patient encounter procedure Juan R Rosado [id number] Work Phone: Start: 06-08-2018 End: 06-11-2018 Patient encounter procedure DERREK SHAW [facility] Start: 12-10-2017 Patient encounter Nikkie Arriaag Fac ility:[id number] Start: 12-10-2017 Patient encounter Derrek Shaw Facility:[id number] Start: 10-09-2017 Patient encounter Nikkie Arriaga [facility] it:[facility] Start: 08-13-2017 Patient encounter Nikkie Arriaga Fac ility:[id number] Start: 01-22-2017 Patient encounter procedure Juan R Rosado [id number]25 Work Phone: Start: 09-11-2016 Patient encounter [...] 05-09-2022 Blood count complete automated Nereida Reyes LEASING SALES CONSULTANT.STRAW HAT PLUNGER OPERATOR Work Phone: Start: 05-06-2022 Blood count complete automated Nereida Reyes LEASING SALES CONSULTANT.STRAW HAT PLUNGER OPERATOR Work Phone: Start: 05-02-2022 Antinuclear antibodies xu Luther Vega MD Work Phone: Start: 05-02-2022 Blood count complete automated Nereida Reyes LEASING SALES CONSULTANT.STRAW HAT PLUNGER OPERATOR Work Phone: Start: 05-02-2022 HEP A [...] - S tae or Plasma Taisha John LEASING SALES CONSULTANT.STRAW HAT PLUNGER OPERATOR Work Phone: Start: 12-31-2017 Follow-up visit Start: 04-28-2006 Colonoscopy Juan R alejandre MD Work Phone: Bacteria identified in Blood by Culture Nico Schmidt Investigation of transfusion reaction Nico Schmidt Microbial culture, routine P santa Schmidt Plan of Treatment Date Care Activity Detail Author Start: 10-06-2029 Urine microalbumin profile DTaP,Tdap,Td Vaccine (3 - Td or Tdap) [facility] Start: 01-14-2026 Diabetes Screening Diabetes Screenin g [facility] Start: 05-09-2025 DIABETES SCREEN DIABETES SCREEN [facility] Start: 01-07-2025 End: 01-07-2025 Patient encounter procedure 01/07/2025 11:30 AM EST Office Visit Neurology [address] [facility] [address] [place] [address] Carolina Damon MD [address] [facility] [address] [place], [place] [id number] Botox 300 units Neurology Comment on above: Botox 300 units Start: 10-18-2024 Influenza vaccination Influenz a Vaccine (Season Ended) [facility] Start: 10-15-2024 End: 10-15-2024 Patient encounter procedure 10/15/2024 11:00 AM EDT Office Visit Neurology [address] [address] Carolina Damon MD [address] [address] Botox 300 units Neurology Comment on above: Botox 300 units Start: 09-06-2024 End: 09-06-2024 Patient encounter procedure 09/06/2024 2:00 PM EDT Office Visit [facility] [address] [place] [address] Juan R John MD [address] [place] [address] follow up [facility] Comment on above: follow up Start: 07-06-2024 End: 07-06-2024 Patient encounter procedure 07/06/2024 3:30 PM EDT Office Visit Neurology [address] [address] Taisha John, LEASING SALES CONSULTANT.STRAW HAT PLUNGER OPERATOR [address] [place] [address] 3 month follow up (with Dr. John [...] AM EST Office Visit Neurology [address] [address] Carolina Damon MD [address] [address] NO TABLET Neurology Comment on above: NO TABLET Start: 03-16-2024 End: 03-16-2024 Patient encounter procedure 03/16/2024 3:30 PM EST Office Visit Neurology [address] [address] Taisha John, LEASING SALES CONSULTANT.STRAW HAT PLUNGER OPERATOR [address] [place] [address] 3 month follow-up Neurology Comment on above: 3 month follow-up Start: 02-20-2024 End: 02-20-2024 Patient encounter procedure 02/20/2024 11:30 AM EST Office Visit Neurology [address] [address] Carolina Damon MD [address] [address] Botox 300 units Neurology Comment on above: Botox 300 units Start: 02-18-2024 Advance Directive Discussion Advance Directive Discussion [facility] Start: 02-10-2024 End: 02-10-2024 Patient encounter procedure 02/10/2024 8:00 AM EST Office Visit Neurology [address] [address] Taisha John, LEASING SALES CONSULTANT.STRAW HAT PLUNGER OPERATOR [address] [place] [address] 3 month follow up Neurology Comment on above: 3 month follow up Start: 11-28-2023 RSV Vaccine (1 - 1-d ose 75+ series) RSV Vaccine (1 - 1-dose 75+ series) [facility] Start: 11-28-2023 End: 11-28-2023 Patient encounter procedure 11/28/2023 1:00 PM EDT Office Visit Urology [address] [address] Kayode Guzman MD [address] [place], [place] [id number] Overactive bladder [N32.81] Urology Comment on above: Overactive bladder [ N32.81] Start: 11-14-2023 End: 11-14-2023 Patient encounter procedure 11/14/2023 10:00 AM EDT Office Visit Neurology [address] [address] Carolina Damon MD [address] [address] Botox 300 units Neurology Comment on above: Botox 300 units Start: 10-23-2023 End: 10-23-2023 Patient encounter procedure Neurology Comment on above: Botox 300 units follow up-slot ok pe r EW (patient has botox prior) Start: 10-19-2023 Covid-19 Vaccine ( season) Covid-19 Vaccine () [facility] Start: 10-19-2023 Influenza vaccination Influenza Vacc ine (#1) [facility] Start: 09-21-2023 BP Controlled (<130/80) BP Con trolled (<130/80) [facility] Start: 07-18-2023 End: 07-18-2023 Patient encounter procedure 07/18/2023 12:30 PM EDT Office Visit Neurology [address] [address] Carolina Damon MD [address] [address] Botox 300 units Neurology Comment on above: Botox 300 units Start: 07-17-2023 End: 07-17-2023 Patient encounter procedure 07/17/2023 8:30 AM EDT Office Visit Neurology [address] [phone] Juan R John MD [address] [place], [place] [id number] Follow up Neurology Comment on above: Follow up Start: 06-09-2023 Lipid panel Lipid Screening [facility] Start: 03-19-2023 Patient discharge [facility] Start: 03-18-2023 Development of care plan [facility] Start: 03-16-2023 [facility] Start: 03-12-2023 Referral to service [facility] Start: 03-10-2023 Fiberoptic endoscopi c evaluation of swallowing [facility] Start: 03-10-2023 [facility] Start: 02-28-2023 Speech therapy management [facility] Start: 02-28-2023 Development of care plan [facility] Start: 02-28-2023 Developing a treatme nt plan [facility] Start: 02-27-2023 [facility] Start: 02-27-2023 End: 02-27-2023 Following clinical pathway protocol [facility] Start: 02-27-2023 Speech therapy assessment [facility] Start: 02-27-[address] [facility] Start: 02-27-2023 Measuring intake and output [facility] Start: 02-27-2023 Patient referral to dietitian [facility] Start: 02-27-2023 Referral to occupational therapist [facility] Start: 02-27-2023 Referral to service [facility] Start: 02-27-2023 Vital signs measurements [facility] Start: 02-27-2023 [facility] Start: 02-17-2023 Advance Directive Discussion Advance Directive Discussion [facility] Start: 02-17-2023 Depression Assessment Depression Ass essment [facility] Start: 02-01-2023 Patient discharge [facility] Start: 01-29-2023 Referral to service [facility] Start: 01-28-2023 [facility] Start: 01-15-2023 Measuring intake and output [facility] Start: 01-15-2023 [facility] Start: 01-14-2023 Application of intermittent pneumatic compression device [facility] Start: 01-14-2023 Consultation for treatment [facility] Start: 01-14-2023 Recommendation to continue with treatment [facility] Start: 01-14-2023 Referral to service [facility] Start: 01-14-2023 Urinary bladder training [facility] Start: 01-14-[address] [facility] Start: 01-14-2023 Referral to occupational therapist [facility] Start: 01-14-2023 Verification routine [facility] Start: 01-14-2023 Vital signs measurements [facility] Start: 01-14-2023 [facility] Start: 01-14-2023 Patient referral to dietitian [facility] Start: 01-14-2023 Speech therapy assessment [facility] Start: 12-25-2022 End: 12-25-2022 [facility] Start: 12-25-2022 Bacteria identified in Urine by Culture Urine Culture [facility] Start: 11-02-2022 Hemoglobin A1c measurement HbA1C [facility] Start: 11-02-2022 Hemoglobin A1c/Hemoglobin.total in Blood HbA1C [facility] Start: 10-18-2022 Covid-19 Vaccine () Covid-19 Vaccine () [facility] Start: 10-18-2022 Influenza vaccination [facility] Start: 07-23-2022 Verification routine [facility] Start: 07-23-[address] [facility] Start: 07-23-2022 End: 07-23-2022 Blood culture [facility] Start: 07-23-2022 End: 07-23-2022 [facility] Start: 06-22-2022 Adult depression screening assessment DEPRESSION SCREENING [facility] Start: 02-17-2022 ADVANCE DIRECTIVE DISCUSSION ADVANCE DIRECTIVE DISCUSSION [facility] Start: 02-17-2022 DEPRESSION ASSESSMENT DEPRESSION ASS ESSMENT [facility] Start: 02-08-2022 COVID-19 VACCINE (5 - Booster for Moderna series) COVID-19 VACCINE (5 - Booster for Moderna series) [facility] Start: 12-14-2021 COVID-19 VACCINE (4 - Booster for Moderna series) COVID-19 VACCINE (4 - Booster for Moderna series) [facility] Start: 12-14-2021 COVID-19 VACCINE (4 - Moderna series) COVID-19 VACCINE (4 - Moderna series) [facility] Start: 12-14-2021 COVID-19 VACCINE (5 - Booster for Moderna series) COVID-19 VACCINE (5 - Booster for Moderna series) [facility] Start: 10-18-2021 Influenza vaccination C [facility] Start: 10-09-2021 Patient discharge [facility] Work Phone: Start: 10-09-2021 [facility] Work Phone: Start: 10-08-2021 Following clinical pathway protocol [facility] Work Phone: Start: 10-08-2021 Methicillin resistan t Staphylococcus aureus screening test [facility] Work Phone: Start: 10-07-2021 Following clinical pathway protocol [facility] Work Phone: Start: 10-07-2021 Assessment of risk o f venous thromboembolism [facility] Work Phone: Start: 10-07-2021 Insertion of cathete r into peripheral vein [facility] Work Phone: Start: 10-07-2021 Providing care according to standard [facility] Work Phone: Start: 10-07-2021 Provision of activit y privileges [facility] Work Phone: Start: 10-07-2021 Referral to occupational therapist [facility] Work Phone: Start: 10-07-2021 Referral to service [facility] Work Phone: Start: 10-07-2021 [facility] Work Phone: Start: 10-07-2021 Verification routine [facility] Work Phone: Start: 10-07-[address] [facility] Work Phone: Start: 10-07-2021 End: 10-07-2021 Blood culture [facility] Work Phone: Start: 06-06-2021 Simple repair scalp/neck/ax/genit/pino nk 2.5cm/< RPR S/N/AX/GEN/TRNK 2.5CM/< [facility] Work Phone: Start: 02-17-2021 ADVANCE DIRECTIVE DISCUSSION ADVANCE DIRECTIVE DISCUSSION [facility] Start: 02-17-2021 DEPRESSION ASSESSMENT DEPRESSION ASS ESSMENT [facility] Start: 10-10-2020 COVID-19 VACCINE (3 - Booster for Moderna series) COVID-19 VACCINE (3 - Booster for Moderna series) [facility] Start: 05-05-2020 DIABETES SCREEN DIABETES SCREEN [facility] Start: 06-09-2019 Hepatitis B screening Urine Albumin:Creatinine Ratio [facility] Start: 06-09-2019 Hepatitis B surface antibody level LDL Cholesterol [facility] Start: 2013 PNEUMOCOCCAL: 65+ (1 - PCV) PNEUMOCOCCAL: 65+ (1 - PCV) [facility] Start: 2013 PNEUMOVAX AGE 65 AND OVER WITH 5YR LOOKBACK (#1) PNEUMOVAX AGE 65 AND OVER WITH 5YR LOOKBACK (#1) [facility] Start: 05-04-2013 Shingrix Vaccine (2 of 3) Shingrix Vaccine (2 of 3) [facility] Start: 2008 Hepatitis B Vaccine (1 of 3 - Risk 3-dose series) Hepatitis B Vaccine (1 of 3 - Risk 3-dose series) [facility] Start: 2008 RSV Vaccine (1 - 1-d ose 60+ series) RSV Vaccine (1 - 1-dose 60+ series) [facility] Start: 2008 RSV Vaccine (1 - Ris k 60-74 years 1-dose series) RSV Vaccine (1 - Risk 60-74 years 1-dose series) [facility] Start: 04-29-2007 Colonoscopy COLONOSCOPY [facility] Start: 04-29-2007 COLORECTAL CANCER SCREENING COLORECTAL CANCER SCREENING [facility] Start: 04-29-2007 Screening for malign ant neoplasm of colon [facility] Start: 1998 SHINGRIX VACCINE (1 of 2) SHINGRIX VACCINE (1 of 2) [facility] Start: 1993 COLOGUARD (FIT-DNA) COLOGUARD (FIT-D NA) [facility] Start: [address] COLONOGRAPHY [facility] Start: 1993 FECAL OCCULT BLOOD FECAL OCCULT BLOO D [facility] Start: 1993 Screening for malign ant neoplasm of colon [facility] Start: 1993 SIGMOIDOSCOPY SIGMOIDOSCOPY [facility] Start: 11-28-1983 LIPID SCREEN LIPID SCREEN [facility] Start: 11-28-1967 Urine microalbumin profile DTAP,TDAP,TD (1 - Tdap) [facility] Start: 1966 Annual PCP Team Manager [place] Disease Visit Annual PCP Team Chronic Disease Visit [facility] Start: 1966 Anxiety Screening Anxiety Screening [facility] Start: 1966 BP Controlled (<130/80) BP Con trolled (<130/80) [facility] Start: 1966 Depression Screening Depression Scre ening [facility] Start: 1966 Hepatitis B surface antibody level LDL Cholesterol [facility] Start: 1966 HEPATITIS C SCREENING HEPATITIS C SC REENING [facility] Start: 1958 3 comp foot exam completed Diabetic Foot Exam [facility] Start: 1958 Diabetic foot examination Diabetic Foot Exam [facility] Start: 1958 Glaucoma screening Dilated Retinal E xam [facility] Start: 1958 Hepatitis C antibody , confirmatory test Dilated Retinal Exam [facility] Bacteria identified in Blood by Culture Blood Culture [facility] Bacteria identified in Urine by Culture URINE CULTURE Microbiology Routine Urinary tract infection without hematuria, site unspecified 11/28/2023 1:46 PM EDT [facility] Bilirubin measuremen t, urine [facility] BLADDER SCAN BLADDER SCAN Procedures Routine Overactive bladder Urinary tract infection without hematuria, site unspecified Urinary incontinence, unspecified type Ordered: 11/28/2023 [facility] Work Phone: Comment on above: Ordered: 11/28/[address] [facility] Work Phone: Hemoglobin [Presence ] in Urine [facility] Measurement of keton es in urine using dipstick [facility] Microscopic urinalysis [facility] OT PLAN OF CARE CERTIFICATION OT PLAN OF CARE CERTIFICATION Procedures Routine Parkinson's disease (HCC) Decreased activities of daily living (ADL) Ordered: 04/02/2022 [facility] Work Phone: Comment on above: Ordered: 04/02/2022 OT PLAN OF CARE CERTIFICATION OT PLAN OF CARE CERTIFICATION Procedures Routine Parkinson's disease (HCC) Decreased activities of daily living (ADL) Ordered: 04/25/2022 [facility] Work Phone: Comment on above: Ordered: 04/25/2022 Patient Education [facility] Work Phone: Patient referral [facility] Work Phone: pH of Urine [facility] Specific gravity of Urine [facility] SPEECH PLAN OF CARE CERTIFICATION SPEECH PLAN OF CARE CERTIFICATION Procedures Routine Parkinson's disease (HCC) Ordered: 04/02/2022 [facility] Work Phone: Comment on above: Ordered: 04/02/2022 Urinalysis, blood, qualitative [facility] Urine dipstick for glucose [facility] Urine dipstick for leukocyte esterase [facility] Urine dipstick for nitrite [facility] Urine dipstick for protein [facility] Urine examination [facility] Urine microscopy: epithelial cells [facility] Urine Microscopy: wh ite cells [facility] Urobilinogen [Presen ce] in Urine [facility] End: 01-24-2024 XR MODIFIED BARIUM SWALLOW W SPEECH THERAPY XR MODIFIED BARIUM SWALLOW W SPEECH THERAPY Radiology Routine Parkinson's disease without dyskinesia, with fluctuating manifestations 1 Occurrences starting 12/24/2022 until 01/24/2024 [facility] Work Phone: Comment on above: 1 Occurrences starti ng 12/24/2022 until 01/24/2024 [id number] [id number] Work Phone: [facility] NEGATED: Highlighted row has been ruled out! Planned Goals not documented [id number] Work Phone: Immunizations Immunization Date Immunization Notes Care Provider Herson bennett 02-28-2023 Influenza High-Dose Quadrivalent Dr. Nico Schmidt Work Phone: [facility] 02-28-2023 influenza virus vacc ine, unspecified formulation Taisha John APRN.CNP Work Phone: [facility] 06-09-2021 Covid (Moderna) Nico Schmidt [facility] 04-17-2021 influenza, injectabl e, quadrivalent, preservative free [facility] 04-17-2021 influenza, seasonal, injectable Nico Schmidt [facility] 04-17-2021 influenza virus vacc ine, unspecified formulation Juan R John MD Work Phone: [facility] 04-20-2019 influenza, injectabl e, quadrivalent, preservative free [facility] 04-20-2019 influenza, seasonal, injectable [facility] 12-06-2016 Influenza virus vaccine W [facility] 07-10-2015 pneumococcal polysaccharide vaccine, [address] Nico Schmidt Work Phone: [facility] 01-27-2014 pneumococcal conjuga te vaccine, [address] Nico Schmidt Work Phone: [facility] Payers Date Payer Category Payer Self-pay [id number] 2019 Unknown MMO MMO MEDICARE SUPPLEMENT [id number] 2019-Present [phone] [address] [place] [address] Indemnity [id number] 2018 Private Health Insurance [id number] 2018 Unknown [id number] 2018 Unknown [id number]. [id number] 2013 Medicare MEDICARE MEDICAR E A AND B [id number] 2013-Present [phone] [address] [address] [place] [address] Medicare [id number] 2013 Medicare [id number]. [id number] 2013 Medicare [id number] 1948 Unknown [id number] 2..840.1.337544.3.579.2. 356 1948 Unknown [id number] 2.16.840.1.174606.3.579.2. 356 1948 Unknown [id number] 2.840.1.584040.3.579.2. 356 1948 Unknown [id number] 2.840.1.895607.3.579.2. 204 Medicare [id number] Unknown [id number] Unknown [id number] 2.16.840.1.415295.3.579.2. 462 Unknown [id number] 2.16840.1.955797.3.579.2. 462 Unknown [id number] 2.16.840.1.963966.3.579.2. 462 Unknown [id number] 2.16840.1.787247.3.579.2. 462 Unknown [id number] 2.16840.1.456709.3.579.2. 462 Unknown [id number] 2.16.840.1.329453.3.579.2. 462 Unknown [id number] 2.16.840.1.840929.3.579.2. 462 Unknown [id number] 2.16.840.1.295546.3.579.2. 462 Unknown [id number] 2.16.840.1.056749.3.579.2. 462 Unknown [id number] 2.16.840.1.689804.3.579.2. 462 Unknown [id number] 2.16.840.1.337738.3.579.2. 462 Unknown [id number] 2.16.840.1.597338.3.579.2. 462 Unknown [id number] 2.16.840.1.199621.3.579.2. 462 Unknown [id number] 2.16.840.1.026034.3.579.2. 462 Unknown [id number] 2.16.840.1.939534.3.579.2. 462 Unknown [id number] 2.16.840.1.931603.3.579.2. 462 Unknown [id number] 2.16.840.1.896776.3.579.2. 462 Social History Date Type Detail Facility Start: 11-16-2020 End: 01-15-2023 Tobacco smoking status NCIS Unknown if ever smoked [facility] Start: 04-19-2019 None [facility] Start: 04-19-2019 Spouse/ Signif icant Other [facility] Start: 04-19-2019 Non-smoker [facility] Start: 1950 Sex Assigned At Male C [facility] Start: 03-25-2013 End: 02-14-2022 Tobacco smoking status NHIS Never smoked tobacco [facility] Start: 03-25-2013 End: 02-14-2022 Tobacco use and exposure Smokeless tobacco non-user [facility] Start: 01-03-2021 End: 07-22-2024 Alcohol intake Ex-drinker (finding) [facility] Start: 08-28-2021 End: 10-04-2021 Exposure to SARS-CoV-2 (event) Not sure [facility] Start: 06-20-2022 End: 09-20-2022 History of Social function [facility] Start: 06-20-2022 End: 09-20-2022 Tobacco use panel [facility] Adult Depression Screening Assessment 0 [facility] Start: 10-11-2019 Gender identity Identifies as male gender (finding) [facility] Start: 03-02-2019 Sexual orientation Heterosexual (maycol fuentes) [facility] (I/We) worried wheth er (my/our) food would run out before (I/we) got money to buy more. Never true [facility] In the past 12 month s, was there a time when you were not able to pay the mortgage or rent on time? No [facility] NEGATED: Highlighted row - Never smoker [id number] Work Phone: Medical Equipment Procedure Code Equipment Code Equipment Origin al Text Equipment Identifier Dates Kit Endovive 20f r Xylocaine Silicone Peg Pull Method Ampule Trocar Cannula - [id number] Start: 01-07-2023 Goals Date Patient Goal Desired Activity /State Functional Status Date Assessment Result Facility [facility] Work Phone: 02-01-2023 Functional status Activity Abili ty Unable to Assess [facility] Work Phone: 02-01-2023 Functional status Patient Activi ty Bedrest [facility] Work Phone: 01-14-2023 Are you deaf, or do you have serious difficulty hearing Yes 01/14/2023 3:56 PM Spring Stauffer RN Yes [facility] 01-14-2023 Are you blind, or do you have serious difficulty seeing, even when wearing glasses Yes 01/14/2023 3:56 PM Spring Stauffer RN Yes [facility] 01-14-2023 Do you have serious difficulty walking or climbing stairs Yes 01/14/2023 3:56 PM Spring Stauffer RN Yes [facility] 01-14-2023 Do you have difficul ty dressing or bathing Yes 01/14/2023 3:56 PM Spring Stauffer RN Yes [facility] 01-14-2023 Because of a physica l, mental, or emotional condition, do you have difficulty doing errands alone such as visiting a physician's office or shopping Yes 01/14/2023 3:56 PM Spring Stauffer RN Yes [facility] 10-09-2021 Functional status Ambulates [facility] Work Phone: NEGATED: Highlighted row Functional performance Functional status health issues are not documented Disease AZ-Zsffxbgtn-Fzotizh 1025 Work Phone: Mental Status Date Assessment Result Facility 03-19-2023 Cognitive function Awake;Alert;Appropriat e [facility] Work Phone: 03-18-2023 Cognitive function Voice/Name [facility] Work Phone: 02-01-2023 Cognitive function Voice/Name [facility] Work Phone: 01-14-2023 Because of a physical, mental, or emotional condition, do you have serious difficulty concentrating, remembering, or making decisions Yes 01/14/2023 3:56 PM Spring Stauffer, MICHELLE Yes [facility] 12-25-2022 Cognitive function Level Of Cons ciousness Alert;Appropriate;Follo ws Commands;Drowsy [facility] Work Phone: 10-09-2021 Cognitive function Voice/Name [facility] Work Phone: 10-09-2021 Cognitive function Appropriate;Cooperativ e [facility] Work Phone: 10-07-2021 Cognitive function Level Of Cons ciousness Awake;Alert;Appropriate ;Follows Commands [facility] Work Phone: NEGATED: Highlighted row Cognitive function [Interpretation] Cognitive status health issues are not documented Disease UJ-Vpstqxbmt-Dizrrf d 1025 Work Phone: Clinical Notes 12-27-2020 to 07-26-2024 Telephone Encounter - Hilda Florez MA - 07/26/2024 3:24 PM EDTTelephone Encounter - Hilda Florez MA - 07/26/2024 3:24 PM EDTTelephone Encounter - Amira Dixon MA - 07/23/2024 8:44 AM EDT Note Date & Type Note Facility 07-26-2024 Telephone encounter Note Received approval for Kt Webb.5 from [employer]. PA# [id number] Dates: From 07/23/2024 until further notice. [facility] 07-26-2024 Miscellaneous Notes Received approval for Gocovri 68.5 mg from [employer]. PA# [id number] Dates: From 07/23/2024 until further notice. documented in this encounter [facility] 07-23-2024 Telephone encounter Note Gocoveri prescription forms faxed to [employer] confirmation received [facility] 07-23-2024 Miscellaneous Notes Gocoveri prescription forms faxed to [employer] confirmation received documented in this encounter [facility] 07-22-2024 Instructions Taisha John APRN.STRAW HAT PLUNGER OPERATOR - 07/22/2024 11:09 AM EDT It [...] directives (living will and durable power of disability attorney for healthcare): By Email: Send your document(s) to as an attachment in either PDF, TIFF, or JPEG format. By Mail: [facility] Information Management, [employer] Advance Directive Processing [id number] [place], [place] [address] By In person at any [facility] location Please note: You can use the address or fax number regardless of which [facility] you utilize, and we will make [...] or you can send a message through [employer]. You can also now schedule and select appointments through [employer]. Taisha John APRN.CNP documented in this encounter [facility] 07-22-2024 History of Present illness Narrative [facility] - FOLLOW UP EVALUATION Recording using [employer] software for draft documentation of the visit was discussed with the patient/authorized sales representative cash registers; all questions welcomed and answered. Patient/authorized sales representative cash registers agreed to proceed Nico Schmidt MD [address] [facility] [facility] [address] Dear Nico Schmidt MD: I had the [...] in physical therapy and works with a skills trainer twice a week. He is also involved in the [employer] Project and plans to resume the program at the end of September. His grandson assists him with exercises from the voice project twice a day. He has a living will and a durable power of disability attorney for healthcare. He does not currently [...] Yes Chair exercises and works with a assistant athletic trainer ALLERGIES Allergen Reactions Abilify [Aripiprazo* Contraindication-Medical Surgical [...] funds from [employer] and the [employer]. - Discussed the possibility Vyalev pump if [...] directives (living will and durable power of disability attorney for healthcare): By Email: Send your document(s) to as an attachment in either PDF, TIFF, or JPEG format. By Mail: [facility] Information Management, [employer] Advance Directive Processing [id number] [place], [place] [address] By In person at any [facility] location Please note: You can use the address or fax number regardless of which [facility] you utilize, and we will make sure it is filed appropriately. Interested in clinical research? Not discussed Updated Movement Disorders Medication Schedule: Medications 2:30am 8am 11am 2pm 5pm 8pm 11pm Sinemet 25/100 1 2 2 2 2 2 Baclofen 10 mg 1 0.5 1 Rasagiline 1 mg 1 Gocovri 68.5mg 2 Clonazepam 0.5mg 1 Level of service : 63133 (40-68 min). Time spent 50 min on the day of service, which included preparing to see the patient, szaa-lu-ffde patient care, completing clinical documentation, obtaining and/or reviewing separately obtained history, performing a medically appropriate examination, counseling and educating the patient/family/caregiver, and ordering medications, tests, or procedures. Taisha John APRN.STRAW HAT PLUNGER OPERATOR documented in this encounter [facility] 07-22-2024 Note HNO ID: [id number] Author: TAISHA JOHN APRN.JAYA Service: ? Author Type: Nurse Practitioner Type: Progress Notes Filed: 07/23/2024 16:18 Note Text: [facility] - FOLLOW UP EVALUATION Recording using ambient [employer] software for draft documentation of the visit was discussed with the patient/authorized sales representative cash registers; all questions welcomed and answered. Patient/authorized sales representative cash registers agreed to proceed Nico Schmidt MD [address] [facility] [address] Dear Nico Schmidt MD: I had the [...] in physical therapy and works with a skills trainer twice a week. He is also involved in the [employer] and plans to resume the program at the end of September. His grandson assists him with exercises from the [employer] project twice a day. He has a living will and a durable power of disability attorney for healthcare. He does not currently [...] 0 - Martine (more content not included)... [facility] 07-02-2024 Note HNO ID: [id number] Author: CAROLINA DAMON MD Service: ? Author Type: Physician Type: Progress Notes Filed: 07/02/2024 11:40 Note Text: [facility] NEUROLOGICAL CHRISTIAN NEUROTOXIN VISIT Date: July 02, 2024 Name: [...] No Administered with Ultrasound guidance: No Lot#: [id number] Exp Date: 11/2026 Today's neurotoxin regimen: Med right left midline Quadratus plantae 60 60 Flexor digitorum brevis 60 60 Total: 240 Future plan of care: Follow up: 3 months Neurotoxin change: No Dose change:No Carolina Damon MD July 02, 2024 11:38 AM Dept of NEUROLOGY TIME OUT/ PROCEDURE NOTE: Informed consent Ludin (more content not included)... [facility] 07-02-2024 History of Present illness Narrative Images from the original note were not included. [facility] NEUROTOXIN VISIT Date: July 02, 2024 Name: [...] No Administered with Ultrasound guidance: No Lot#: [id number] Exp Date: 11/2026 Today's neurotoxin regimen: Med right left midline Quadratus plantae 60 60 Flexor digitorum brevis 60 60 Total: 240 Future plan of care: Follow up: 3 months Neurotoxin change: No Dose change:No Carolina Damon MD July 02, 2024 11:38 AM Dept of NEUROLOGY TIME OUT/ PROCEDURE NOTE: Informed consent Katharine Larsen Medical Record: [id number] Procedure: neurotoxin intramuscular injection The risks, benefits [...] Carolina Damon MD documented in this encounter [facility] 05-06-2024 Telephone encounter Note Request from patient requesting refill. Please E-Scribe to Mj. Last OV: 03/16/24 with Taisha Future OV: 06/03/24 with BLW Requested Prescriptions Pending Prescriptions Disp Refills clonazePAM (KLONOPIN) 0.5 mg tablet 30 tablet 5 Sig: Take 1/2 tablet at bedtime for one week and then take 1 tablet at bedtime Sowmya Poon [facility] 05-06-2024 Miscellaneous Notes Request from patient requesting refill. Please E-Scribe to Mj. Last OV: 03/16/24 with Taisha Future OV: 06/03/24 with BLW Requested Prescriptions Pending Prescriptions Disp Refills clonazePAM (KLONOPIN) 0.5 mg tablet 30 tablet 5 Sig: Take 1/2 tablet at bedtime for one week and then take 1 tablet at bedtime Sowmya Poon documented in this encounter [facility] 05-03-2024 Telephone encounter Note MyChart message not read as of 05/03/2024. Called Patient-no answer. Left detailed voicemail relaying message below. Unable to Reach letter mailed to address on file. Patient advised to contact our office with any questions or concerns. Bere Batres [facility] 05-03-2024 Miscellaneous Notes [employer] message not read as of 05/03/2024. Called Patient-no answer. Left detailed voicemail relaying message below. Unable to Reach letter mailed to address on file. Patient advised to contact our office with any questions or concerns. Bere Batres documented in this encounter [facility] 04-02-2024 Note HNO ID: [id number] Author: CAROLINA DAMON MD Service: ? Author Type: Physician Type: Progress Notes Filed: 04/02/2024 10:18 Note Text: [facility] NEUROLOGICAL CHRISTIAN NEUROTOXIN VISIT Date: April 02, 2024 Name: [...] No Administered with Ultrasound guidance: No Lot#: [id number] Exp Date: 05/2026 Today's neurotoxin regimen: Med right left midline Quadratus plantae 45 50 Flexor digitorum brevis 45 50 Total: 190 Future plan of care: Follow up: 3 months Neurotoxin change: No Dose change:No Carolina Damon MD April 02, 2024 10:17 AM Dept of NEUROLOGY TIME OUT/ PROCEDURE NOTE: Informed consent Katharine Larsen [facility] (more content not included)... [facility] 04-02-2024 History of Present illness Narrative Images from the original note were not included. [facility] NEUROTOXIN VISIT Date: April 02, 2024 Name: [...] No Administered with Ultrasound guidance: No Lot#: [id number] Exp Date: 05/2026 Today's neurotoxin regimen: Med right left midline Quadratus plantae 45 50 Flexor digitorum brevis 45 50 Total: 190 Future plan of care: Follow up: 3 months Neurotoxin change: No Dose change:No Carolina Damon MD April 02, 2024 10:17 AM Dept of NEUROLOGY TIME OUT/ PROCEDURE NOTE: Informed consent Katharine Jerod Larsen Medical Record: [id number] Procedure: neurotoxin intramuscular injection The risks, benefits [...] Carolina Damon MD documented in this encounter [facility] 03-16-2024 Instructions Taisha John APRN.[facility] 03/16/2024 4:41 PM EST It was a [...] how you are doing. Please call the [employer] today as they are currently accepting applications The website is [email or web address] Continue exercising I have ordered physical [...] or you can send a message through [employer]. You can also now schedule and select appointments through [employer]. Taisha John APRN.JAYA documented in this encounter [facility] 03-16-2024 History of Present illness Narrative [facility] - FOLLOW UP EVALUATION Primary Movement Disorders Neurologist: Juan R John MD Primary Movement Disorders CATALINA: JAYA Nelson MD [address] [facility] [address] Dear Nico Schmidt MD: I had the [...] get in soon, please go to an [facility] clinic Interval History: He was sick with [...] Yes Chair exercises and works with a assistant athletic trainer PD Health Maintenance Routine Eye Exams: yes [...] also looked up and found that the [employer] is accepting applicants with Parkinson's disease so [...] how you are doing. Please call the [employer] today as they are currently accepting applications The website is [email or web address] Continue exercising I have ordered physical [...] Clonazepam 0.5mg 1 Level of service : 93998 (40-68 min). Time spent 54 min on the day of service, which included preparing to see the patient, ujvq-tj-tjrr patient care, completing clinical documentation, obtaining and/or reviewing separately obtained history, performing a medically appropriate examination, counseling and educating the patient/family/caregiver, and ordering medications, tests, or procedures. Taisha John APRN.JAYA documented in this encounter [facility] 03-16-2024 Note HNO ID: [id number] Author: TAISHA JOHN APRN.CNP Service: ? Author Type: Nurse Practitioner Type: Progress Notes Filed: 03/20/2024 16:50 Note Text: [facility] - FOLLOW UP EVALUATION Primary Movement Disorders Neurologist: Juan R John MD Primary Movement Disorders [place]: JAYA Nelson MD [address] [facility] [address] [facility] [address] Dear Nico Schmidt MD: I had the [...] get in soon, please go to an [facility] care/[facility] clinic Interval History: He was sick with [...] Normal. No anx (more content not included)... [facility] 01-05-2024 Telephone encounter Note BW/EW patient. Forwarding to them [facility] Work Phone: 01-05-2024 Miscellaneous Notes BW/EW [...] daily. Sowmya Poon documented in this encounter [facility] 01-05-2024 Telephone encounter Note Request from [...] tablet by mouth once daily. Sowmya S [facility] 11-28-2023 Nurse Note Bladder scan obtained 80 ml of urine [facility] 11-28-2023 Nurse Note Bladder scan obtained 80 ml of urine documented in this encounter [facility] 11-28-2023 History of Present illness Narrative Images from the original note were not included. REPLACED BY [facility]IC NOTE [...] is prohibitive, can attempt to obtain through [facility] in [place]. Follow up in [place] with CATALINA in 3 mo Kayode Guzman [...] to mobility issues) Saw Dr. Kyle in [place] 1 mo ago. Recommended course of Cipro, but patient unable to take it. Straight cath specimen for UA/UCx. Trial Gemtesa. 3 mo FU in [place]. BPH History: PSA: 0.52 (03/12/2017) No history [...] be communicated with the ordering provider via [employer] staff message or phone message by [employer] within 2 business days of report finalization. --END OF FINDING-- Milk Tester: CASIMIRO Transcribe Date/Time: Jan 11 2023 2:20P [...] Yes; : Deferred documented in this encounter [facility] 11-28-2023 Note HNO ID: [id number] Author: KAYODE GUZMAN MD Service: ? Author Type: Physician Type: Progress Notes Filed: 11/28/2023 14:12 Note Text: REPLACED BY [facility]INIC NOTE [...] is prohibitive, can attempt to obtain through [facility] pharmacy in [place]. Follow up in [place] with CATALINA in 3 mo Kayode Guzman [...] to mobility issues) Saw Dr. Kyle in [place] 1 mo ago. Recommended course of Cipro, but patient unable to take it. Straight cath specimen for UA/UCx. Trial Gemtesa. 3 mo FU in [place]. BPH History: PSA: 0.52 (03/12/2017) No history [...] be communicated with the ordering provider via [employer] staff message or phone message by [employer] within 2 business days of report finalization. --END OF FINDING-- Milk Tester: CASIMIRO Transcribe Date/Time: Jan 11 2023 2:20P [...] No Family History (more content not included)... [facility] 11-14-2023 Note HNO ID: [id number] Author: CAROLINA DAMON MD Service: ? Author Type: Physician Type: Progress Notes Filed: 11/14/2023 10:56 Note Text: [facility] NEUROLOGICAL CHRISTIAN NEUROTOXIN VISIT Date: November 14, 2023 Name: [...] No Administered with Ultrasound guidance: No Lot#: [id number] Exp Date: 12/2025 Today's neurotoxin regimen: Med right left midline Quadratus plantae 45 50 Flexor digitorum brevis 45 50 Total: 190 Future plan of care: Follow up: 3 months Neurotoxin change: No Dose change:No Carolina Damon MD November 14, 2023 10:54 AM Dept of NEUROLOGY TIME OUT/ PROCEDURE NOTE: Informed consent Katharine Larsen Medical Record: [id number] Procedure: neurotoxin intramusc (more content not included)... [facility] 11-14-2023 History of Present illness Narrative Images from the original note were not included. [facility] NEUROLOGICAL CHRISTIAN NEUROTOXIN VISIT Date: November 14, 2023 Name: [...] No Administered with Ultrasound guidance: No Lot#: [id number] Exp Date: 12/2025 Today's neurotoxin regimen: Med right left midline Quadratus plantae 45 50 Flexor digitorum brevis 45 50 Total: 190 Future plan of care: Follow up: 3 months Neurotoxin change: No Dose change:No Carolina Damon MD November 14, 2023 10:54 AM Dept of NEUROLOGY TIME OUT/ PROCEDURE NOTE: Informed consent Katharine Larsen Medical Record: [id number] Procedure: neurotoxin intramuscular injection The risks, benefits [...] Carolina Damon MD documented in this encounter [facility] 11-07-2023 Instructions Taisha John APRN.CNP - [...] get in soon, please go to an [facility] Movement Disorders Medication Schedule: Medications 230am 8am 11am 2pm 5pm 8pm 11pm Sinemet 25/100 1 2 2 2 2 1.5 Baclofen 10 mg 1 1 Rasagiline 1 mg 1 Amantadine 100 mg 1 Clonazepam 0.5mg 1/2->1 Return at or around: 02/06/24 If there are any concerns before your next visit, please call or you can send a message through [employer]. You can also now schedule and select appointments through [employer]. Taisha John APRN.JAYA documented in this encounter [facility] 11-07-2023 History of Present illness Narrative [facility] - FOLLOW UP EVALUATION Nico Schmidt MD [address] [facility] [address] [facility] [address] Dear Nico Schmidt MD: I had the [...] Yes Chair exercises and works with a assistant athletic trainer ALLERGIES Allergen Reactions Abilify [Aripiprazo* Contraindication-Medical Surgical [...] get in soon, please go to an [facility] Updated Movement Disorders Medication Schedule: Medications 230am 8am 11am 2pm 5pm 8pm 11pm Sinemet 25/100 1 2 2 2 2 1.5 Baclofen 10 mg 1 1 Rasagiline 1 mg 1 Amantadine 100 mg 1 Clonazepam 0.5mg 1/2->1 Return at or around: 02/06/24 Level of service : 61504 (40-54 min). Time spent 54 min on the day of service, which included preparing to see the patient, paev-pt-jmsk patient care, completing clinical documentation, obtaining and/or reviewing separately obtained history, performing a medically appropriate examination, counseling and educating the patient/family/caregiver, and ordering medications, tests, or procedures. Log will indicate more time, but I did leave the room to answer a page. Taisha John APRN.JAYA documented in this encounter [facility] 11-07-2023 Note HNO ID: [id number] Author: TAISHA JOHN APRN.STRAW HAT PLUNGER OPERATOR Service: ? Author Type: Nurse Practitioner Type: Progress Notes Filed: 11/09/2023 12:53 Note Text: [facility] - FOLLOW UP EVALUATION Nico Schmidt MD [address] [facility] [address] [facility] [address] Dear Nico Schmidt MD: I had the [...] Yes Chair exercises and works with a assistant athletic trainer ALLERGIES Allergen Reactions Abilify [Aripiprazo* Contraindication-Medical Surgical [...] disease. If not (more content not included)... [facility] 08-11-2023 Telephone encounter Note Called and left a voicemail on bother number to reschedule a missed virtual visit. [facility] 08-11-2023 Miscellaneous Notes Called and left a voicemail on bother number to reschedule a missed virtual visit. documented in this encounter [facility] 07-18-2023 History of Present illness Narrative Images from the original note were not included. [facility] NEUROTOXIN VISIT Date: July 18, 2023 Name: Katharine Larsen SUBJECTIVE: Subjective history Injections worked well. Hospitalizations and rehab stays have delayed injections. Last injection lasted 90-100 days. Happy with result. Not ambulatory but working on it. Has home PT and a assistant athletic trainer. Left foot is plantarflexed. Ankle doesn't touch [...] No Administered with Ultrasound guidance: No Lot#: [id number] Exp Date: 07/2025 Today's neurotoxin regimen: Med right left midline Quadratus plantae 45 50 Flexor digitorum brevis 45 50 Total: 190 Future plan of care: Follow up: 3 months Neurotoxin change: No Dose change:No Carolina Damon MD July 18, 2023 12:29 PM Dept of NEUROLOGY TIME OUT/ PROCEDURE NOTE: Informed consent Katharine Larsen Medical Record: [id number] Procedure: neurotoxin intramuscular injection The risks, benefits [...] Carolina Damon MD documented in this encounter [facility] 07-17-2023 Instructions Juan R John MD [...] or you can send a message through [employer]. You can also now schedule and select appointments through [employer]. Juan R John MD documented in this encounter [facility] 07-17-2023 History of Present illness Narrative [facility] - FOLLOW UP EVALUATION Nico Schmidt MD [address] [facility] [address] [facility] [address] Dear Nico Schmidt MD: I had the [...] This isn't every day. He has a assistant athletic trainer that comes 1 day a week as [...] Row Office Visit from 07/17/2023 in Neurology [facility] from 04/08/2023 in Neurology [facility] [...] Yes Chair exercises and works with a assistant athletic trainer ALLERGIES Allergen Reactions Penicillins Unknown Current Outpatient [...] 100 mg 1 Level of service : 90486 (40-54 min). Time spent 43 min on the day of service, which included preparing to see the patient, vzgj-og-hzan patient care, completing clinical documentation, obtaining and/or [...] R John MD documented in this encounter [facility] 06-20-2023 Telephone encounter Note RN called and spoke with patient's spouse and advised to reduce to 1/2 tab rasagiline while on Cipro. Patient's spouse verbalized understanding of all information provided and agrees to POC at this time. Kera Kearns RN [facility] 06-20-2023 Miscellaneous Notes RN called and [...] by Dr. John? documented in this encounter [facility] 06-20-2023 Telephone encounter Note June 20, 2023 3:45 PM Just have him reduce the rasagiline to 1/2 tablet. It gets metabolized a little more slowly and that will be the right dose while on Cipro. [facility] 06-19-2023 Telephone encounter Note calling to say he was prescribed Cipro 500 mg BID for 10 days for a UTI today. The pharmacy told him this would interact with his Rasagiline. She wants to know if this is okay for him to take or if there is an alternative recommended by Dr. John? [facility] 05-27-2023 Note [facility] 05-23-2023 Miscellaneous Notes Called and left voicemails on both numbers listed. Need to reschedule a missed virtual visit with Michaela Mancini. Left a call back number documented in this encounter [facility] 05-09-2023 History of Present illness Narrative PALLIATIVE MEDICINE AT HOME PROGRESS NOTE SERVICE DATE: May 09, 2023 IDENTIFICATION AND INTRODUCTION: Katharine Larsen is a 72 year old male Michaela Mancini APRN.STRAW HAT PLUNGER OPERATOR May 09, 2023 8:06 AM No show for virtual visit, scheduling notified Michaela Mancini CNP This note may have been partially generated using the NetClarity voice recognition system. While every effort was made to correct voice recognition errors, kindly be aware that some errors may occasionally occur. documented in this encounter [facility] 05-07-2023 Miscellaneous Notes called back. She needs RX for Baclofen sent to [facility]. She also said the Botoxx appointment was [...] for him. He will need something soon. [facility] pharmacy on file. [phone] documented in this encounter [facility] 04-08-2023 Instructions Taisha John APRN.CNP - [...] directives (living will and durable power of disability attorney for healthcare): By Email: Send your document(s) to [email or web address] as an attachment in either PDF, TIFF, or JPEG format. By Mail: [facility] Information Management, [employer] Advance Directive Processing [address] [place], [place] [address] By In person at any [facility] location Please note: You can use the address or fax number regardless of which [facility] you utilize, and we will make [...] or you can send a message through [employer]. You can also now schedule and select appointments through [employer]. Taisha John APRN.JAYA documented in this encounter [facility] 04-08-2023 History of Present illness Narrative [facility] - FOLLOW UP EVALUATION Nico Schmidt MD [address] [facility] [address] [facility] [address] Dear Nico Schmidt MD: I had the pleasure of seeing Mr. Larsen for follow-up today. As you know he is a 72 year old left-handed male with a history of Parkinson's disease complicated by motor fluctuations and dyskinesia since 2012. He is seen alone. We had a visit using: Mover I have communicated my name and active licensure. The patient's identity and physical location were verified at the time of this visit. Either the patient or their legal sales representative cash registers has been informed of the risks and [...] Yes Chair exercises and works with a assistant athletic trainer ALLERGIES Allergen Reactions Penicillins Unknown Current Outpatient Medications Medication Sig PEG 5195-Xvvnhtvffsj-Tht C (MOVIPREP) 100-7.5-2.691 gram Take by mouth. [...] directives (living will and durable power of disability attorney for healthcare): By Email: Send your document(s) to as an attachment in either PDF, TIFF, or JPEG format. By Mail: [facility] Information Management, [employer] Advance Directive Processing [address] [place], [place] [address] By In person at any [facility] location Please note: You can use the address or fax number regardless of which [facility] you utilize, and we will make sure it is filed appropriately. Updated Movement Disorders Medication Schedule: Medications 8am 12pm 4pm 8pm Sinemet 25/100 2 2 2 1.5 Rasagiline 1 mg 1 Amantadine 100 mg 1 Level of service : 21567 ( 30-39 min). Time spent 37 min on the day of service, which included preparing to see the patient, aext-aj-rsff patient care, completing clinical documentation, obtaining and/or reviewing separately obtained history, performing a medically appropriate examination, and counseling and educating the patient/family/caregiver. Taisha John APRN.JAYA documented in this encounter [facility] 03-21-2023 History of Present illness Narrative PALLIATIVE MEDICINE AT HOME PROGRESS NOTE SERVICE DATE: 03/21/2023 Referring Physician: Inpatient palliative medicine team at [place] Primary Physician: Nico Schmidt MD IDENTIFICATION AND INTRODUCTION: Katharine Larsen is a 72 year old male This visit took place Virtually; I have communicated my name and active licensure. The patient's identity and physical location were verified at the time of this visit. 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 I spent a total of 55 minutes on the date of the service which included preparing to see the patient, rxoa-sf-rlqr patient care, completing clinical documentation, obtaining and/or reviewing separately obtained history, performing a medically appropriate examination, and counseling and educating the patient/family/caregiver. Michaela Mancini APRN.CNP March 21, 2023 6:34 PM This note may have been partially generated using the NetClarity voice recognition system. While every effort was made to correct voice recognition errors, kindly be aware that some errors may occasionally occur. documented in this encounter [facility] 03-21-2023 History of Present illness Narrative Apt cancelled - note opened in error documented in this encounter [facility] 03-12-2023 Note [facility] Medical Records Department [address] [place] [address] Discharge Summary 03/12/231923 MR#: [id number] Acct: [id number] Name: KATHARINE LARSEN Rep #: [id number] : 1950 72 From: Freddy Swann MD PCP: Dr. Nico Schmidt MD Status:ADM IN Location: [facility]1 Providers Date of Admission: 02/27/23 Primary [...] Discharge home with and grandsons 03/19/2023, [facility] PT/OT/SN/SW. Physical Exam Const alert General Appearance: [...] Loss (Severe), P (more content not included)... [facility] 02-27-2023 Note [facility] Medical Records Department [address] [place] [address] History Physical Exam 02/27/231927 MR#: [id number] Acct: [id number] Name: KATHARINE LARSEN Rep #: [id number] : 1950 72 From: Freddy Swann MD PCP: Dr. Nico Schmidt MD Status:ADM IN Location: [address] - General General Date of Admission: 02/27/23 Date of Service: 02/27/23 Chief Complaint: Here for rehabilitation. HPI Narrative KATHARINE LARSEN, is a 72 Male who presents with followin01/09/2023 - 02/01/2023 admitted to [facility]EDS AT [facility] for inpatient rehabilitation. Patient discharged home but [...] he can go home with his . 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 [facility] 02-21-2023 History of Present illness Narrative PALLIATIVE MEDICINE AT HOME INITIAL CONSULT SERVICE DATE: 02/21/2023 Patient did not show for virtual appointment. Scheduling notified. Michaela Mancini CNP documented in this encounter [facility] 01-31-2023 Discharge summary Note Date/Time January 31, 2023 9:12am [facility] Medical Records Department [address] [facility] [place] [address] Discharge Summary 01/31/23 0911 MR#: [id number] Acct: [id number] Name: KATHARINE LARSEN Rep #:[id number] : 1950 72 From: Nicolasa Willingham MD PCP: Dr. Nico Schmidt MD Status:ADM I N Location: [place] [address] Providers Date of Admission: 01/14/23 Date of Discharge: 02/01/23 Primary Care Physician: Dr. Nico Schmidt MD Consultations 01/14/23 22:51 Consult: Onc/Wound/cashier manager Routine Comment: Reason for Consult:: unstageable pressure areas to feet Reason For Visit: PARKINSONS Diagnosis Discharge Diagnosis (1) Debility: Status: Acute Code(s): R53.81 - Other malaise Plan: Will continue with PT/OT and follow up on findings and recommendations. D/C planned for 02/01 with [facility] and family care. Continue with PRN pain [...] requiring 1:1 supervision. Will continuewith isosource 1.5 [id number]. Will also continue with H20 50cc before [...] mellitus complication status: without complication Diabetes mellitus orchid transplanter insulin use: without intermediate use Qualified Code(s): E11.9 - Type 2 [...] 145 mg capsule,extended release (Rytary) 4 cap [id number] parkinsons 01/27/23 baclofen 10 mg tablet 5 [...] Course: Patient came as a transfer from [facility] for therapy purposes. He initially presented to [facility] on 12/25 with complaints of weakness and [...] rehab. Once stable, he was transferred to [facility] inpatient rehab. While at rehab, the patient worked well with therapy with slow improvements. Hewas found to have a UTI and completed treatment for that. With family assistance, it was felt he could go home with [facility]. Family training was completed prior to his [...] Document 01/22/23 15:20 LULI (Rec: 01/22/23 15:20 [id number]) Nutrition Malnutrition Evidence of Malnutrition Exists Yes [...] 1. Regular diet- texture/ consistency (purees/thins) per [facility] HOME C[facility]; anticipate PO diet to be mostly for [...] kcal/mL Liquid 300 ml G-tube TIDPC Qty: 84059 0RF Jevity 1.5 Kelli 0.06 gram-1.5 kcal/mL [...] Provider] - 02/06/23 11:40 am (Scheduled w/ litigation legal secretary Marcia) Disposition Disposition (needs filled in before D/C Order can be placed): Home Health Service Charges/Coding Visit Charges Inpatient E&M: 61234 Disch Hosp >30min 01/31/23 0935 <Electronically signed by Nicolasa Willingham MD> Cosigner Signature (if applicable): CC: Dr. Nicolasa Willingham MD; Dr. Nico Schmidt MD~ Signed [facility] Work Phone: 1(555) 717-312612-15-2023 [facility] Medical Records Department [address] [place] [address] Discharge Summary 01/31/23 0911 MR#: [id number] Acct: [id number] Name: KATHARINE LARSEN Rep #: [id number] : 1950 72 From: Nicolasa Willingham MD PCP: Dr. Nico Schmidt MD Status:ADM IN Location: [place] [address] Providers Date of Admission: 01/14/23 Date of Discharge: 02/01/23 Primary Care Physician: Dr. Nico Schmidt MD Consultations 01/14/23 22:51 Consult: Onc/Wound/cashier manager Routine Comment: Reason for Consult:: unstageable pressure areas to feet Reason For Visit: PARKINSONS Diagnosis Discharge Diagnosis (1) Debility: Status: Acute Code(s): R53.81 - Other malaise Plan: Will continue with PT/OT and follow up on findings and recommendations. D/C planned for 02/01 with [facility] and family care. Continue with PRN pain [...] 1:1 supervision. Will continue with isosource 1.5 [id number]. Will also continue with H20 50cc before [...] mellitus complication status: without complication Diabetes mellitus orchid transplanter insulin use: without intermediate use Qualified Code(s): E11.9 - Type 2 [...] 145 mg capsule,extended rele (more content not included)...[facility]12-13-2023 Progress note Author Nicolasa Willingham [facility] January 29, 2023 9:15am Note Date/Time January 29, 2023 8:37am [facility] Medical Records Department [address] [place] [address] Progress Note - Rehab 01/29/23 0835 MR#: [id number] Acct: [id number] Name: KATHARINE LARSEN Rep #:[id number] : 1950 72 From: Nicolasa Willingham MD PCP: Dr. Nico Schmitd MD Status:ADM I N Location: [place] [address] Subjective Subjective Patient was admitted for daily rehab following a hospital stay for progressive weakness in the setting of Parkinson's disease, dysphagia and esophagitis. No events overnight, although he reports he didn't sleep very well. He has his family training is scheduled for later today. Plan for discharge home with [facility] and family assistance on 02/01. The patient [...] 01/22/23 15:20 LO (Rec: 01/22/23 15:20 LO [id number]) Nutrition Malnutrition Evidence of Malnutrition Exists Yes [...] 1. Regular diet- texture/ consistency (purees/thins) per [facility] MANAGER HOME CARE; anticipate PO diet to be mostly for [...] CVA/Stroke: No Hx of CVA/Stroke: No Modified Jefferson Score MRS Score at time of Evaluation: [...] and recommendations. D/C planned for 02/01 with [facility] and family care. Continue with PRN pain [...] of aspiration. Will continue with isosource 1.5 9e866cc. Will also continue with H20 50cc before [...] mellitus complication status: without complication Diabetes mellitus intermediate insulin use: without intermediate use Qualified Code(s): E11.9 - Type 2 diabetes mellitus without complications PLAN: Patient hasn't been on diabetic medications since his weight loss. Will continue with glucose checks and add SSI as needed. Last A1c was out of diabetic range at 5.6. Glucose was 85 this morning. Charges/Coding Visit Charges Inpatient E&M: 47846 Subs Hosp L1 01/29/23 0915 <Electronically signed by Nicolasa Willingham MD> Cosigner Signature (if applicable): CC: ~ Signed [facility] Work Phone: 1(788) 299-703412-12-2023 Progress note Author Nicolasa Willingham [facility] January 28, 2023 11:37am Note Date/Time January 28, 2023 11:23am [facility] Medical Records Department [address] [place] [address] [place] [address] Progress Note - Rehab 01/28/23 1120 MR#: [id number] Acct: [id number] Name: KATHARINE LARSEN Rep #:[id number] : 1950 72 From: Nicolasa Willingham MD PCP: Dr. Nico Schmidt MD Status:ADM I N Location: [place] [address] Subjective Subjective Patient was admitted for daily rehab following a hospital stay for progressive weakness in the setting of Parkinson's disease, dysphagia and esophagitis. No events overnight. Family training is scheduled for Friday with a goal of discharge home with [facility] and family assistance on 02/01. The patient [...] 01/22/23 15:20 LO (Rec: 01/22/23 15:20 LO [id number]) Nutrition Malnutrition Evidence of Malnutrition Exists Yes [...] 1. Regular diet- texture/ consistency (purees/thins) per [facility] MANAGER HOME CARE; anticipate PO diet to be mostly for [...] % (Auto) 62.3, Lymph % (Auto) 22.7, [place] % (Auto) 11.0 H, Eos % (Auto) [...] CVA/Stroke: No Hx of CVA/Stroke: No Modified Jefferson Score MRS Score at time of Evaluation: [...] and recommendations. D/C planned for 02/01 with [facility] and family care. Continue with PRN pain [...] of aspiration. Will continue with isosource 1.5 4w217fi. Will also continue with H20 50cc before [...] mellitus complication status: without complication Diabetes mellitus intermediate insulin use: without orchid transplanter use Qualified Code(s): E11.9 - Type 2 diabetes mellitus without complications PLAN: Patient hasn't been on diabetic medications since his weight loss. Will continue with glucose checks and add SSI as needed. Last A1c was out of diabetic range at 5.6. Glucose was 127 this morning. Charges/Coding Visit Charges Inpatient E&M: 04720 Subs Hosp L1 01/28/23 1137 <Electronically signed by Nicolasa Willingham MD> Cosigner Signature (if applicable): CC: ~ Signed [facility] Work Phone: 1(362) 500-784912-11-2023 Progress note Author Nicolasa Willingham [facility] January 27, 2023 11:02am Note Date/Time January 27, 2023 10:12am [facility] Medical Records Department [address] [place] [address] Progress Note - Rehab 01/27/23 1006 MR#: [id number] Acct: [id number] Name: KATHARINE LARSEN Rep #:[id number] : 1950 72 From: Nicolasa Willingham MD PCP: Dr. Nico Schmidt MD Status:ADM I N Location: [place] [address] Nicolasa Willingham MD on 01/27/23 at 1102 Visit Charges Inpatient E&M: 83743 Subs Hosp L2 01/27/23 1102<Electronically signed by [...] with a goal of discharge home with [facility] and family assistance on 02/01. The patient [...] 01/22/23 15:20 LO (Rec: 01/22/23 15:20 LO [id number]) Nutrition Malnutrition Evidence of Malnutrition Exists Yes [...] 1. Regular diet- texture/ consistency (purees/thins) per [facility] MANAGER HOME CARE; anticipate PO diet to be mostly for [...] and recommendations. D/C planned for 02/01 with [facility] and family care. Continue with PRN pain [...] concern of aspiration. Will continue with isosource1.5 3e120ke. Will also continue with H20 50cc before [...] mellitus complication status: without complication Diabetes mellitus orchid transplanter insulin use: without intermediate use Qualified Code(s): E11.9 - Type 2 [...] Cosigner Signature (if applicable): CC: ~ Signed [facility] Work Phone: 1(440) 989-165012-11-2023 Miscellaneous Notes* Telephone Encounter - Nikkie Newton [...] RN drafted [facility], . Kera Kearns RN * Telephone Encounter [...] contact her as well as the facility. [phone] also wanted BLW to know that Kavon is doing better and walking with a walker. * Telephone Encounter - Delmi Bledsoe - 01/16/2023 11:00 AM EST Pt's phoned - he was at [facility] for a couple of weeks and he was initially given Sinemet until Dr. John called to have this changed to the Rytary that he is supposed to get. He has been since transferred to [facility] Rehab 4th floor and this update did notget sent with him. She said he is to be taking the same Rytary he has always taken. Facility (p) [phone] (f) [phone] Mrs. Larsen (p) [phone] [facility] Progress note Author Nicolasa Willingham [facility] January 22, 2023 11:59am Note Date/Time January 22, 2023 1 0:11am [facility] Medical Records Department [address] [place] [address] Progress Note - Rehab 01/22/23 1007 MR#: [id number] Acct: [id number] Name: KATHARINE LARSEN Rep #:[id number] : 1950 72 From: Nicolasa Willingham MD PCP: Dr. Nico Schmidt MD Status:ADM I N Location: [place] [address] Subjective Subjective Patient was admitted for daily [...] 1. Regular diet- texture/ consistency (purees/thins) per [facility] MANAGER HOME CARE; anticipate PO diet to be mostly for [...] CVA/Stroke: No Hx of CVA/Stroke: No Modified Jefferson Score MRS Score at time of Evaluation: [...] concern of aspiration. Will continue with isosource1.5 [id number] every 4 hours, however, will touch base with hydraulic oil tool operator for possible adjustment. Will also continue with [...] mellitus complication status: without complication Diabetes mellitus intermediate insulin use: without orchid transplanter use Qualified Code(s): E11.9 - Type 2 [...] current complaints. Charges/Coding Visit Charges Inpatient E&M: 20500 Subs Hosp L2 01/22/23 1159 <Electronically signed by Nicolasa Willingham MD> Cosigner Signature (if applicable): CC: ~ Signed [facility] Work Phone: 1(785) 856-531912-05-2023 Progress note Author Freddy Swann [facility] January 21, 2023 8:40am Note Date/Time January 21, 2023 8 :40am [facility] Medical Records Department [address] [place] [address] Progress Note - Rehab 01/21/23 0838 MR#: [id number] Acct: [id number] Name: KATHARINE LARSEN Rep #:[id number] : 1950 72 From: Freddy Swann MD PCP: Dr. Nico Schmidt MD Status:ADM I N Location: [place] [address] Subjective Subjective Patient seen, examined. He has [...] 1. Regular diet- texture/ consistency (purees/thins) per [facility] MANAGER HOME CARE; anticipate PO diet to be mostly for [...] CVA/Stroke: No Hx of CVA/Stroke: No Modified Jefferson Score MRS Score at time of Evaluation: [...] Cosigner Signature (if applicable): CC: ~ Signed [facility] Work Phone: 1(364) 458-660412-04-2023 Progress note Author [facility] January 20, 2023 9:05am Note Date/Time January 20, 2023 9 :05am [facility] Medical Records Department [address] [place] [address] Progress Note - Rehab 01/20/23 0902 MR#: [id number] Acct: [id number] Name: KATHARINE LARSEN Rep #:[id number] : 1950 72 From: Freddy Swann MD PCP: Dr. Nico Schmidt MD Status:ADM I N Location: [place] [address] Subjective Subjective Patient seen on IDT rounds. [...] 1. Regular diet- texture/ consistency (purees/thins) per [facility] MANAGER HOME CARE; anticipate PO diet to be mostly for [...] CVA/Stroke: No Hx of CVA/Stroke: No Modified Jefferson Score MRS Score at time of Evaluation: [...] Cosigner Signature (if applicable): CC: ~ Signed [facility] Work Phone: 1(855) 239-141612-01-2023 Progress note Author Freddy [facility] January 17, 2023 2:17pm Note Date/Time January 17, 2023 8 :30am [facility] Medical Records Department [address] [place] [address] Progress Note - Rehab 01/17/23825 MR#: [id number] Acct: [id number] Name: KATHARINE LARSEN Rep #:[id number] : 1950 72 From: Freddy Swann MD PCP: Dr. Nico Schmidt MD Status:ADM I N Location: [place] [address] Freddy Swann MD on [...] 1. Regular diet- texture/ consistency (purees/thins) per CL[facility]ICAL MANAGER HOME CARE; anticipate PO diet to be mostly for [...] Cosigner Signature (if applicable): CC: ~ Signed [facility] Work Phone: 1(188) 541-686811-30-2023 Progress note Author Nicolasa Willingham [facility] January 16, 2023 2:06pm Note Date/Time January 16, 2023 2:02pm [facility] Medical Records Department [address] [place] [address] [place] [address] Progress Note - Rehab 01/16/23 1358 MR#: [id number] Acct: [id number] Name: KATHARINE LARSEN Rep #:[id number] : 1950 72 From: Nicolasa Willingham MD PCP: Dr. Nico Schmidt MD Status:ADM I N Location: [place] [address] Subjective Subjective Patient was admitted for daily [...] 1. Regular diet- texture/ consistency (purees/thins) per [facility] MANAGER [facility] CARE; anticipate PO diet to be mostly for [...] Sl. Cloudy, Urine pH 8.0, Ur Specific [place] 1.015, Urine Protein 15 H, Urine Glucose [...] concern of aspiration. Will continue with isosource1.5 4p761fi every 4 hours. Will also continue with [...] mellitus complication status: without complication Diabetes mellitus intermediate insulin use: without orchid transplanter use Qualified Code(s): E11.9 - Type 2 diabetes mellitus without complications PLAN: Patient hasn't been on diabetic medications since his weight loss. Will continue with glucose checks and add SSI as needed. Last A1c was out of diabetic range at 5.6. Glucose was 110 this morning. Charges/Coding Visit Charges Inpatient E&M: 05297 Subs Hosp L2 01/16/23 1406 <Electronically signed by Nicolasa Willingham MD> Cosigner Signature (if applicable): CC: ~ Signed [facility] Work Phone: 1(125) 581-198911-30-2023 Miscellaneous Notes* Telephone Encounter - Delmi Bledsoe - 01/16/2023 11:03 AM EST Pt's requesting refill as follows: Last FUV Dec 2022 with [facility]. [facility] - pharmacy change Requested Prescriptions Pending Prescriptions Disp Refills amantadine HCl (SYMMETREL) 100 mg capsule 30 capsule 11 Sig: Take 1 capsule by mouth once daily. Upon approval, script will be sent electronically to the patient's pharmacy. Delmi Andujar, Seasoner III documented in this encounterPromedica Toledo Hospital11-29-2023 History and physical note Author Nicolasa Willingham [facility] January 15, 2023 3:13pm Note Date/Time January 15, 2023 11:09am [facility] Medical Records Department [address] [place] [address] Post Admission Physician Pasha 01/15/23 1104 MR#: [id number] Acct: [id number] Name: KATHARINE LARSEN Rep #:[id number] : 1950 72 From: Nicolasa Willingham MD PCP: Dr. Nico Schmidt MD Status:ADM I N Location: [place] [address] Admission Information Primary Diagnosis:: Debility, dysphagia, esophagitis, [...] Skin integrity and Medication Management Patient needs Sane Rn/ Case Management for: Discharge Planning, Arranging Home [...] family or friends Visit Charges Inpatient E&M: 92119 Init Hosp L3 01/15/23 1513 <Electronically signed by Nicolasa Willingham MD> Cosigner Signature (if applicable): CC: ~ Signed [facility] Work Phone: 1(361) 189-630911-29-2023 History and physical note Author Nicolasa Willingham [facility] January 15, 2023 2:59pm Note Date/Time January 15, 2023 9:31am [facility] Medical Records Department [address] [place] [address] History & Physical Exam 01/15/23 0911 MR#: [id number] Acct: [id number] Name: KATHARINE LARSEN Rep #:[id number] : 1950 72 From: Nicolasa Willingham MD PCP: Dr. Nico Schmidt MD Status:ADM I N Location: [place] [address] Nicolasa Willingham MD on [...] bladder who presented to the ED at [facility] on 12/25 with complaints of weakness and dysphagia which had been progressively worsening over the prior week. In the ED, imaging and labs were obtained which showed a slightly elevated creatinine level and WBC. He was given IVF, however, due to his weakness, it was felt he would benefit from admission. He was transferred to [facility] for further management. During his admission, his [...] rehab. Once stable, he was transferred to [facility] inpatient rehab for 3 hours of daily rehab and strengthening with a goal to return home with his . The patient reports that he is feeling tired. He doesn't feel his occupational therapy went well this morning. He denies any pain or concerns at this time. 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 Patient denies any pain associated with these. (3) Oropharyngeal dysphagia: PLAN: PEG tube in place. Speech therapy consult. Will continue with isosource 1.5 [id number] every 4 hours. Will also continue with [...] mellitus complication status: without complication Diabetes mellitus orchid transplanter insulin use: without intermediate use Qualified Code(s): E11.9 - Type 2 [...] frequent repositioning. Charges/Coding Visit Charges Inpatient E&M: 50880 Init Hosp L3 01/15/23 1055 <Electronically signed by Nicolasa Willingham MD> Cosigner Signature (if applicable): CC: Dr. Nicolasa Willingham MD; Dr. Nico Schmidt MD~ Signed [facility] Work Phone: 1(800) 837-550711-29-2023 [facility] Medical Records Department [address] [place] [address] History Physical Exam 01/15/23 0911 MR#: [id number] Acct: [id number] Name: KATHARINE LARSEN Rep #: [id number] : 1950 72 From: Nicolasa Willingham MD PCP: Dr. Nico Schmidt MD Status:ADM IN Location: [place] [address] Nicolasa Willingham MD on 01/15/23 at 0740 Addendum Addendum - Pressure sore not appreciated by wound care nurse on assessment. 01/15/23 1455 Cosigner Signature (if applicable): cc: Dr. Nicolasa Willingham MD; Dr. Nico Schmidt MD * Signed [facility] - General General Date of Admission: 01/14/23 Date of Service: 01/15/23 Chief Complaint: Dysphagia, Esophagitis, Parkinson's disease - Generalized weakness HPI Narrative KATHARINE LARSEN, is a 72 M with extensive PMH of Parkinson's disease, DM2, HTN, BPH, MYRIAM and overactive bladder who presented to the ED at [facility] on 12/25 with complaints of weakness and dysphagia which had been progressively worsening over the prior week. In the ED, imaging and labs were obtained which showed a slightly elevated creatinine level and WBC. He was given IVF, however, due to his weakness, it was felt he would benefit from admission. He was transferred to [facility] for further management. During his admission, his [...] rehab. Once stable, he was transferred to [facility] inpatient rehab for 3 hours of daily rehab and strengthening with a goal to return home with his . The patient reports that he is feeling tired. He doesn't feel his occupational therapy went well this morning. He denies any pain or concerns at this time. 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 Smoking Status: Never smoker alcohol intake: never substance use type: does not use and former substance user Date of last use: 1974 ROS Constitutional Constitutional: Reports anorexia and fatigue; Denies fever(s) or weakness Eyes Eyes: Denies change in vision ENT HEENT: Reports abnormal hearing, dysphagia and nasal congestion; Denies headache(s (more content not included)...[facility]11-28-2023 NoteHNO ID: [id number] Author: Spring Josue RN Service: Nursing Author Type: Registered Nurse Type: Nursing Progress Note Filed: 01/14/2023 4:23 PM Note Text: Call placed to [facility] [place], report given to nurse Isabel.[facility] [id number] NoteMagruder Memorial HospitalOkvkycty01-51-3054 [facility]11-25-2023 [facility]11-25-2023 [facility]11-24-2023 [facility]11-23-2023 [facility]11-22-2023 Miscellaneous Notes * Telephone Encounter - [...] PCP: Nico Schmidt MD Visit address from [facility]: [address] [place], [place] [id number] Reason for consult: Goals of care Referral Source: [facility] Name of Physician who gave the order: Dr Jakob Chino Other services ordered: Palliative care Primary Insurance Company: Payor: MEDICARE / Plan: MEDICARE A AND B / Product Type: Medicare / Primary Insurance ID Number: [id number] Referral Info Complete. Right click to reselect and continue Referral documented in this encounterPromedica Toledo Hospital11-22-2023 [facility] 01-07-2023 [facility]11-21-2023 NoteHNO ID: [id number] Author: Nereida Gilliam RN Service: ? Author Type: Registered Nurse Type: Nursing Progress Note Filed: 01/07/2023 9:33 AM Note Text: BP concerns voiced to Dr. Oro. No further orders at this time. Will continue to monitor.[facility] HospitalLconwihp80-83-7831 [facility]11-20-2023 Note [facility] HospitalNvaufavg56-22-6509 NoteMagruder Memorial HospitalGfxupzlm89-45-1660 [facility] 01-03-2023 NoteMagruder Memorial HospitalPpzbubwa05-55-6040 NoteMagruder Memorial HospitalYrgsldrl42-99-2977 Note [facility] HospitalEbxmypdr50-49-0255 NoteMagruder Memorial HospitalNstkxzrf70-87-1860 Miscellaneous Notes* Telephone Encounter - Hilda Florez MA - 12/31/2022 1:34 PM EST Spoke with . Pt is still in [facility] for swallowing issues. Pt advised that GI told her pt should be in either Palliative or Hospice due to symptoms She advised They no nothing about Parkinson's. She is upset/frustrated and is looking for guidance. She would like you to call her on her cell at [phone] documented in this encounterPromedica Toledo Hospital11-13-2023 [facility] 12-29-2022 [facility]11-11-2023 [facility]11-10-2023 Note [facility] HospitalBcztjtrv36-75-5650 NoteMagruder Memorial HospitalEuxkvnqd88-65-2356 NoteMagruder Memorial Hospital 12-26-2022 Miscellaneous Notes* Telephone Encounter - [...] I started with a message to the emergency management consultant Neurologist. * Telephone Encounter - Sowmya [...] possibly change medications. He is currently at [facility] and she is wanting to let Dr. John know and maybe have him check in with the attending physician. He was having rigidity, and leg spasms and also had a fever. They did UA at [facility] before he was transferred to [place] and then [place] said this was a little dirty and they were going to do another. [phone] ok to leave message documented in this encounterPromedica Toledo Hospital11-07-2023 History of Present illness Narrative* Juan [...] his . We had a visit using: Mover I have communicated my name and active licensure. The patient's identity and physical location wereverified at the time of this visit. Either the patient or their legal sales representative cash registers has been informed of the risks and [...] He had a modified barium swallow at [facility] 2 years ago. He gets leg spasms. [...] [facility] from 12/24/2022 in Neurological [facility] Office Visit from 06/20/2022in Neurology Global Physical [...] Juan R John MD documented in this encounterPromedica Toledo Hospital09-06-2023 Miscellaneous Notes* Telephone Encounter - Kalyani [...] advise. Tere Gonzalezterson Kalyani documented in this encounterPromedica Toledo Hospital08-23-2023 Miscellaneous Notes* Telephone Encounter - Nikkie [...] John before doing so. documented in this encounterPromedica Toledo Hospital08-04-2023 History of Present illness Narrative* Carolina Damon MD - 09/20/2022 9:15 AM EDT Images from the original note were not included. [facility] NEUR[facility] VIS[facility] Date: September 20, 2022 Name: [...] U Administered with EMG guidance: No Lot#: [id number] Exp Date: 01/2025 Today's neurotoxin regimen: Med right left midline Quadratus plantae 45 50 Flexor digitorum brevis 45 50 Total: 190 Future plan of care: Follow up: 3 months Neurotoxin change: No Dose change:No Carolina Damon MD September 20, 2022 9:18 AM Dept of NEUROLOGY TIME OUT/ PROCEDURE NOTE: Informed consent Katharine Larsen Medical Record: [id number] Procedure: neurotoxin intramuscular injection The risks, benefits [...] -- Carolina Damon MD documented in this encounterPromedica Toledo Hospital08-04-2023 Miscellaneous Notes* Telephone Encounter - Amira [...] advise. Amira Dixon MA documented in this encounterPromedica Toledo Hospital07-06-2023 [facility] 06-06-2022 Miscellaneous Notes* Telephone Encounter - Amira Dixon MA - 06/06/2022 2:00 PM EDT error documented in this encounterPromedica Toledo Hospital03-09-2023 History of Present illness Narrative* SKY Johnson/Derrick - 04/25/2022 5:18 PM EST Episode Visit Count: 1 Therapist That Will Accept/Oversee The Plan Of Care: Tucker Vazquez Start of Care Date: 04/25/22 Onset Date: 12/18/12 Plan of Care Certification Date: 04/25/22 Next Certification Due Date: 06/24/22 Patient Identified by Name and Date of : Yes [facility] OCCUPATIONAL THERAPY RE- [...] Planned: 1 Planned Treatment Interventions: Therapeutic exercise (29658), Self-alf management (42660), Neuromuscular re-education (20895) PLAN FOR NEXT VISIT: recheck after acute [...] Disease Right or Left Handed: Left 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 Self-Prison Management: 1: Pt and family educated in role of OT 2: discussed role of inpatient acute rehabilitation 3: Discussed benefit of exercise in delaying the disease 4: Educated in plan of care Skilled Intervention: Pt and family educated as noted. Billing * Re-Evaluation : 1 Unit Self-Care/Home Management Treatment Minutes: 10 Total Treatment Time Minutes (timed/untimed): 45 SKY Johnson/Derrick documented in this encounterPromedica Toledo Hospital03-09-2023 History of Present illness Narrative* Gaylejohann [...] Gayle Alicea PT, DPT documented in this encounterPromedica Toledo Hospital03-09-2023 Miscellaneous Notes* Telephone Encounter - Gayle Rubi - 04/25/2022 8:45 AM EST Faxed 04-24-22 office note and face sheet to [facility] at [phone]. Per Dr. Vega documented in this encounterPromedica Toledo Hospital03-08-2023 Instructions* Patient Instructions* Luther Vega MD - 04/24/2022 3:18 PM EST Frantz from [facility] will contact you about admission Frantz Miller - [phone] documented in this encounterPromedica Toledo Hospital03-08-2023 History of Present illness Narrative* Luther [...] highly benefit from 2+ week stay at [place]. He has appropriate diagnosis and medical complexity especially with some undiagnosed neurological findings that can be addressed with PM&R close supervision. Needs workup for cause for peripheral neuropathy presentation. PAD also likely contributing. History of diet controlled diabetes may contribute. Will need EMG and further workup after rehab Will need to see podiatry as well. There is a senior trial attorney at the chosen [facility] but will also [...] which included preparing to see the patient, [id number] patient care, completing clinical documentation, performing a medically appropriate examination, counseling and educating the patient/family/caregiver, ordering medications, tests, or p rocedures and communicating results to the patient/family/caregiver. Luther Vega MD Physical Medicine & Rehab [facility] documented in this encounterPromedica Toledo Hospital02-16-2023 History of Present illness Narrative* Gayle [...] Available: 24-Hour Home Type: Ranch Equipment Owned: [employer]- Shower, PaymentWorksb Bars- Toilet, Walker- Wheeled, Wheelchair- Manual Intake [...] Education TREATMENT: PT Treatment Interventions: Therapeutic Exercise, Self-Prison Management Evaluation Evaluation Therapeutic Exercise: 1: manual [...] was facilitated with verbal and visual cuing. Self-Prison Management: 1: transfers with max verbal cues [...] Gayle Alicea PT, DPT documented in this encounterPromedica Toledo Hospital02-14-2023 History of Present illness Narrative* Carolina Damon MD - 04/02/2022 4:07 PM EST [facility] - Multidisciplinary Clinic Juan R John [address] [facility] [address] No primary care provider on file. No [...] seated and reaching for something. Has a outside salesman but it is usually across the room. [...] 100 mg 1 Level of service : 78418 (40-54 min). Time spent 46 min on the day of service, which included preparing to see the patient, [id number] patient care, completing clinical documentation, obtaining and/or [...] Sincerely, Carolina Damon MD documented in this encounterPromedica Toledo Hospital02-14-2023 Instructions* Patient Instructions* Carolina Damon MD [...] or you can send a message through [employer]. You can also now schedule and select appointments through [employer]. Carolina Damon MD documented in this encounterPromedica Toledo Hospital02-14-2023 History of Present illness Narrative* Teresa Marty, [facility]-CLINICAL MANAGER HOME CARE - 04/02/2022 2:44 PM EST Episode Visit Count: 1 Therapist That Will Accept/Oversee The Plan Of Care: Marty Start of Care Date: 04/02/22 Onset Date: 02/17/14 Plan of Care Certification Date: 04/02/22 Next Certification Due Date: 06/01/22 Patient Identified by Name and Date of : Yes [facility] SPEECH and SWALLOW EVALUATION PLAN OF CARE: Impression: Communication deficits identified: Voice disorder, Dysarthria of speech RECOMMENDATION: Diet Recommendations: Regular Consistency, Thin Liquids IDDSI Level 0 Swallowing Precautions Recommendations: Anti-Reflux precautions, Alternate bites and sips, Extendedtime between presentations, Feed / Eat at a slow rate, Self- monitoring, Small Bite/Sip, Controlled Volume with each drink presentation, Reduced bite size CLINICAL MANAGER HOME CARE Recommendations: Home Health Services, Diet Results and [...] Duration: Planned Treatment Interventions: Expressive Language Training (24166, 02551), Dysarthria/Apraxia Reduction Training (72244, 71526), Speech Treatment (33707) Current Frequency: 1x every other week (Home [...] times -Reports recent MBS was completed at [facility] and recommended regular texture/thin; stated CLINICAL MANAGER HOME CARE mentioned normal Parkinson's weakness with swallowing but [...] to Consistencies Presented: Recently had MBS at [facility] recommending regular/thin per patient. Mild amount [...] Eval Sound Production with Language Expression and Flame Cutter (12953) Swallow Eval Func (14782) Current Home Program: voice/dysarthria exercises Billing: Eval Sound Production with Language Expression and Flame Cutter (20850) and Clinical Swallow Evaluation (60620) Total time / Length of visit: 60 minutes Teresa Ferguson CCC-CLINICAL MANAGER HOME CARE documented in this encounterPromedica Toledo Hospital02-14-2023 History of Present illness Narrative* Jaimee Vazquez, OTR/L - 04/02/2022 1:59 PM EST Episode Visit Count: 1 Therapist That Will Accept/Oversee The Plan Of Care: Tucker Vazquez Start of Care Date: 04/02/22 Onset Date: 12/18/12 Plan of Care Certification Date: 04/02/22 Next Certification Due Date: 04/02/22 Patient Identified by Name and Date of : Yes [facility] OCCUPATIONAL THERAPY EVALUATION [...] Disease Right or Left Handed: Left 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 Billing * Evaluation High Complexity: 1 Unit Self-Care/Home Management Treatment Minutes: 15 Total Treatment Time Minutes (timed/untimed): 50 LORENA Johnson documented in this encounterPromedica Toledo Hospital02-06-[address] Islas [facility] March 25, 2022 9:14pm Note Date/Time March 25, 2022 8 :47pm [facility] Medical Records Department [address] [place] [address] Emergency Department Summary 03/25/22 MR#: [id number] Acct: [id number] Name: KATHARINE LARSEN Rep #:[id number] : [...] fourth finger/ring finger. He denies other injury. [facility] Medical History BPH (benign prostatic hyperplasia) [...] 145 mg capsule,extended release 3 ea PO CXUHPRGHQ86/10/20 [History Last Taken Unknown] carbidopa ER 36.25 [...] your Primary Care Provider. Call [facility] ([phone]) or report to the closest Emergency Room. Call 911 if necessary. 03/25/222113 <Electronically signed by Wyatt Islas MD> Cosigner Signature (if applicable): CC: Nico Schmidt ~ Signed [facility] Work Phone: 1(477) 249-911001-13-2023 History of Present illness Narrative* Carolina Damon MD - 03/01/2022 5:53 PM EST Images from the original note were not included. [place] Neurotoxin Visit Date: March 01, [...] U Administered with EMG guidance: No Lot#: [id number] Exp Date: 05/17/24 Today's neurotoxin regimen: Med right left midline Quadratus plantae 30 35 Flexor digitorum brevis 30 35 Total: 130 Future plan of care: Follow up: 3 months Neurotoxin change: No Dose change:No Carolina Damon MD March 01, 2022 5:58 PM Dept of NEUROLOGY TIME OUT/ PROCEDURE NOTE: Informed consent Katharine Larsen Medical Record: [id number] Procedure: neurotoxin intramuscular injection The risks, benefits [...] -- Carolina Damon MD documented in this encounterPromedica Toledo Hospital01-10-2023 Miscellaneous Notes* Telephone Encounter - Joyce [...] to them to schedule. documented in this encounterPromedica Toledo Hospital12-29-2022 Instructions* Patient Instructions* Juan R John [...] or you can send a message through [employer]. You can also now schedule and select appointments through [employer]. Juan R John MD documented in this encounterPromedica Toledo Hospital12-29-2022 History of Present illness Narrative* Juan [...] Row Office Visit from 02/14/2022 in Neurology [facility] from 10/19/2021 in Neurological [facility] T Score -- 47.7 [...] Juan R John MD documented in this encounterPromedica Toledo Hospital12-29-2022 Miscellaneous Notes* Telephone Encounter - Hilda Florez MA - 02/14/2022 4:00 PM EST At appointment time 4p, pt was not checked in. Went to lobby/waiting room and hallway to call for pt. Pt was not in either location. documented in this encounterPromedica Toledo Hospital10-07-2022 History of Present illness Narrative* Juan [...] Juan R John MD documented in this encounterPromedica Toledo Hospital07-28-2022 Miscellaneous Notes* Telephone Encounter - Delmi Alves - 09/13/2021 3:51 PM EDT Patient phones requesting refills as follows: Last FUV August 2021 with [facility] Pending Prescriptions Disp Refills RASAGILINE 1 MG TABLET 90 tablet 3 Sig: Take 1 tablet by mouth once daily. AGA: No Please review and advise. Delmi Auguste documented in this encounterPromedica Toledo Hospital07-22-2022 History of Present illness Narrative* Juan R John MD - 09/07/2021 3:20 PM EDT documented in this encounterPromedica Toledo Hospital07-08-2022 Miscellaneous Notes* Telephone Encounter - Delmi Auguste - 08/24/2021 12:55 PM EDT Last FUV June 2021 with [facility] Patient phones requesting refills as follows: Pending Prescriptions Disp Refills RYTARY 36.25 MG-145 MG CAPSULE,EXTENDED RELEASE 990 capsule 11 Si capsules at 8AM, and 4 capsules at 1PM, and at 6PM. AGA: No Please review and advise. Delmi Andujar [facility] documented in this encounterPromedica Toledo Hospital06-03-2022 Miscellaneous Notes* Telephone Encounter - Sowmya Spencer - 07/20/2021 10:07 AM EDT Patient requesting new order PT. He would like this faxed to [facility] at [phone] and notified when sent. documented in this encounterPromedica Toledo Hospital05-06-2022 Instructions* Patient Instructions* Juan R John [...] or you can send a message through [employer]. You can also now schedule and select appointments through [employer]. Juan R John MD [facility] History of Present illness Narrative* Juan [...] seen alone. We had a visit using: [employer] I received consent from the patient to [...] PROMIS-10 Distance Health from 06/22/2021 in [facility] from 07/28/2020 in [facility] Global Physical Health T Score 50.8 44.9 [...] Juan R John MD documented in [facility] NoteHNO ID: [id number] Author: Nikkie Arriaga APRN.STRAW HAT PLUNGER OPERATOR Service: ? Author Type: Nurse Practitioner Type: Progress Notes Filed: 12/29/2020 3:42 PM Note Text: [facility] - FOLLOW UP EVALUATION Jaiden Rivera, DO [address] [facility] [address] I had the pleasure of seeing Mr. [...] Type: Virtual Billing: Level of service : [id number] (40- (more content not included)...[facility] noteNo assessment information availableWProMedica [facility] Work Phone: Evaluation note* Diagnosis Parkinson's disease (HCC)- Primary Paralysis agitans [facility] Diagnosis Parkinson's disease (HCC)- Primary Paralysis agitans Neurologic gait dysfunction Abnormality of gait documented [facility]* Diagnosis Onset Date Resolution Status Elbow abrasion, infected acu te [facility] Work Phone: Evaluation note* Diagnosis Parkinson's disease (HCC)- Primary Paralysis agitans documented [facility]* Diagnosis Onset Date Resolution Status Elbow abrasion, infected acu te Cellulitis acute Lactic acidosis acute Sepsis acute Parkinson disease chronic [facility] Work Phone: Evaluation note* Diagnosis Parkinson's disease (HCC)- Primary Paralysis agitans documented [facility]* Diagnosis Onset Date Resolution Status Elbow abrasion, infected acu te Lactic acidosis resolved Parkinson disease resolved [facility] Work Phone: Evaluation note* Diagnosis Onset Date Resolution Status Lactic acidosis resolved Parkinson disease resolved [facility] Work Phone: Evaluation note* Diagnosis Parkinson's disease (HCC)- Primary Paralysis agitans [facility] Dystonia of foot- Primary [...] (HCC) Paralysis agitans [facility] Diagnosis Parkinson's disease (HCC)- Primary [...] Primary Paralysis agitans [facility] Diagnosis Decreased activities of daily living (ADL)- Primary Parkinson's disease (HCC) Paralysis agitans [facility] Diagnosis Onset Date Resolution Status Cellulitis of left anterior lower leg acute History of Parkinson's disease acute Sepsis acute [facility] Work Phone: Evaluation note* Diagnosis Dystonia of foot- Primary Abnormal involuntary movements [facility]* Diagnosis Parkinson's disease without dyskinesia, with fluctuating manifestations- Primary Dysphagia, unspecified type [facility] Diagnosis Encounter for palliative care- Primary Parkinson's disease with dyskinesia and fluctuating manifestations Oropharyngeal dysphagia Dysphagia, oropharyngeal phase Muscle cramps Cramp of limb Night muscle spasms Spasm of muscle Generalized weakness Other malaise and fatigue Chronic insomnia Insomnia, unspecified [facility] Diagnosis Dysphagia, unspecified type- Primary Parkinson's disease with dyskinesia and fluctuating manifestations 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 [facility]* Diagnosis Parkinson's disease with fluctuating manifestations, unspecified whether dyskinesia present (HCC)- Primary documented in this encounter [facility] note* Diagnosis Dysphagia, unspecified type- Primary Parkinson's disease without dyskinesia or fluctuating manifestations (HCC) documented in this encounter [facility] note* Diagnosis NO SHOW- Primary documented in this encounter [facility] note* Diagnosis Onset Date Resolution Status Debility [...] acute Parkinson disease acute HTN (hypertension) chronic [facility] Work Phone: Evaluation note* Diagnosis Onset Date Resolution Status Debility acute Failure to thrive acute GERD (gastroesophageal reflux disease) acute Overactive bladder acute Parkinson disease acute HTN (hypertension) chronic [facility] Work Phone: Evaluation note* Diagnosis Parkinson's disease without dyskinesia, with fluctuating manifestations (HCC)- Primary Dystonia of foot Abnormal involuntary movements [facility] Diagnosis Dystonia of foot- Primary Abnormal involuntary movements documented in this encounter [facility] note* Diagnosis Overactive bladder- Primary 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 fluctuating manifestations (HCC) Dystonia Abnormal involuntary movements Urinary tract infection without hematuria, site unspecified Insomnia due to medical condition Insomnia due to medical condition classified elsewhere [facility]* Diagnosis Dystonia of foot- Primary Abnormal involuntary movements [facility]* Diagnosis Urinary incontinence, unspecified type- Primary Overactive bladder Hypertonicity of bladder Urinary tract infection without hematuria, site unspecified documented in this encounter [facility] note* Diagnosis Onset Date Resolution Status Debility acute Esophagitis acute Hyponatremia acute Muscle spasm acute Oropharyngeal dysphagia acut e Overactive bladder acute Parkinson disease acute S/P percutaneous endoscopic gastrostomy (PEG) tube placement acute Severe protein-calorie malnutrition acute BPH (benign prostatic hyperplasia) chronic DMII (diabetes mellitus, type 2) chronic HTN (hypertension) chronic Stage II pressure sore resol raymond UTI (urinary tract infection) resolved [facility] Work Phone: Evaluation note* Diagnosis Parkinson's disease with dyskinesia and fluctuating manifestations (HCC)- Primary Dysphagia, unspecified type Dystonia Abnormal involuntary movements documented in this encounter [facility] note* Diagnosis Dystonia of foot- Primary Abnormal involuntary movements documented in this encounter [facility] note* Diagnosis Insomnia due to medical condition Insomnia due to medical condition classified elsewhere Dystonia Abnormal involuntary movements documented in this encounter [facility] note* Diagnosis Dystonia of extremity- Primary documented in this encounter [facility] note* Diagnosis Parkinson's disease with dyskinesia and fluctuating manifestations (HCC)- Primary Depression, unspecified depression type Drooling Disturbance of salivary secretion Dystonia of extremity documented in this encounter [facility] Discharge instructions Additional Instructions Wear your finger splint until cleared by orthopedics.[facility] Work Phone: Reason for referral (narrative)* Diagnostic Procedure Only (Routine) - Pending Review Specialty Diagnoses / Procedures Referred By Naresh t Referred To Contact XR IMAGING Diagnoses Parkinson's disease without dyskinesia, with fluctuating manifestations Procedures XR MODIFIED BARIUM SWALLOW W SPEECH THERAPY RADIOLOGIC EXAM SWALLOW FUNCTION CONTRAST STUDY Juan R John MD [address] [id number] X[facility] [place] [address] Referral ID Status Reason Start Date Expiration Date Visits Requested Visits Authorized [id number] Pending Review Auto-Generat ed Referral 12/24/2022 01/23/2024 1 1 [facility] Summary Purpose Family History No Family History [...] Yes October 28, 2019 2:52pm Power of Hospital Admissions Clerk Yes October 2:52pm Advance Directive Response Recorded Date/ Time Name of Medical Power of Hospital Admissions Clerk Sloane ford June 06, 2021 11:54am Living Will Yes June 06, 2021 11:54am Power of Hospital Admissions Clerk Yes June 06 11:54am Advance Directive Response Recorded Date/ Time Name of Medical Power of Hospital Admissions Clerk Margarita Frazier e October 07, 2021 1:31pm Living Will Yes October 07 1:31pm Power of Hospital Admissions Clerk Yes October 07, 2 022 1:31pm Advance Directive Response Recorded Date/ Time Name of Medical Power of Hospital Admissions Clerk sloane, October 07, 2021 4:05pm Living Will Yes October 07 4:05pm Power of Hospital Admissions Clerk Yes October 07, 2 022 4:05pm Advance Directive Response Recorded Date/ Time Name of Medical Power of Hospital Admissions Clerk sloane, October 07, 2021 3:05pm Living Will Yes October 07 3:05pm Power of Hospital Admissions Clerk Yes October 07, 2 022 3:05pm Advance Directive Response Recorded Date/ Time Living Will No March 25 8:44pm Power of Hospital Admissions Clerk No March 25, 2022 8:44pm Advance Directive Response Recorded Date/ Time Name of Medical Power of Hospital Admissions Clerk July 23, 2022 2:31pm Living Will Yes July 23, 2022 2 :31pm Power of Hospital Admissions Clerk Yes July 23, 2022 2:31pm Advance Directive Response Recorded Date/ Time Living Will Yes December 25 1:43pm Power of Hospital Admissions Clerk Yes December 25, 2022 1:43pm Name of Medical Power of Hospital Admissions Clerk MARGARITA FORD December 25, 2022 1:43pm Latest [...] Date/ Time Name of Medical Power of Hospital Admissions Clerk Yamileth barreto, January 15, 2023 5:45pm Name of Medical Power of Hospital Admissions Clerk Sloane Sy , February 28, 2023 4:22pm Living Will Yes February 28 4:22pm Power of Hospital Admissions Clerk Yes February 28, 2023 4:22pm Advance Directive Response Recorded Date/ Time Name of Medical Power of Hospital Admissions Clerk Sloane Sy , February 28, 2023 4:22pm Living Will Yes February 28 4:22pm Power of Hospital Admissions Clerk Yes February 28, 2023 4:22pm Date Activated Date Inactivated Comments 12/25/2022 10:48 PM 01/15/2023 12:32 AM Question Answer Comments Full Code Order Discussed With: Patient Advance Directive Response Recorded Date/ Time Name of Medical Power of Hospital Admissions Clerk MARGARITA FORD December 25, 2022 1:43pm Name of Medical Power of Hospital Admissions Clerk Yamileth barreto, January 15, 2023 4:45pm Living Will Yes January 15, 2 023 4:45pm Power of Hospital Admissions Clerk Yes January 15, 2023 4:45pm Chief Complaint [...] (HCC) Procedures PROVIDER ORDERED FOLLOW UP OFFICE/OUTPATIENT [facility] 60-74 MINUTES Juan R John MD [address] [place] [address] Referral ID Status Reason Start Date Expiration Date Visits Requested Visits Authorized [id number] Authorized PCP Requested Referral 06/22/2021 09/20/2021 1 1 Specialty Diagnoses / Procedures Referred By Naresh massey Referred To Contact Physical Therapy Diagnoses Parkinson's disease (HCC) Neurologic gait dysfunction Procedures CONSULT TO PHYSICAL THERAPY Juan R John MD [address] [place] [address] Referral ID Status Reason Start Date Expiration Date Visits Requested Visits Authorized [id number] Ref Not Required PCP Requested Referral 07/20/2021 07/20/2022 99 99 Specialty Diagnoses / Procedures Referred By Contac t Referred To Contact [facility] Diagnoses Parkinson's disease (HCC) Procedures CONSULT TO SPEECH THERAPY OFFICE/OUTPATIENT [facility] MDM 60-74 MINUTES Juan R John MD [address] [id number] [place] [address] Referral ID Status Reason Start Date Expiration Date Visits Requested Visits Authorized [id number] Authorized Auto-Generat ed Referral 11/23/2021 11/23/2022 99 99 Specialty Diagnoses / Procedures Referred By Contac t Referred To Contact [facility] Diagnoses Parkinson's disease (HCC) Procedures CONSULT TO DIRECTOR NURSERY SCHOOL OCCUPATIONAL THERAPY EVAL HIGH COMPLEX 60 [place] [address] [place] [address] [place] [address] Referral ID Status Reason Start Date Expiration Date Visits Requested Visits Authorized [id number] Authorized PCP Requested Referral Auto-Generate d Referral 11/23/2021 11/23/2022 99 99 Specialty Diagnoses / Procedures Referred By Contac t Referred To Contact [facility] Diagnoses Parkinson's disease (HCC) Procedures CONSULT TO PHYSICAL THERAPY PHYSICAL THERAPY EVALUATION HIGH COMPLEX 45 MINS Juan R John MD [address] [place] [address] [place] [address] Referral ID Status Reason Start Date Expiration Date Visits Requested Visits Authorized [id number] Authorized PCP Requested Referral Auto-Generate d Referral 11/23/2021 11/23/2022 99 99 Referral ID Status Reason Start Date Expiration Date Visits Requested Visits Authorized [id number] Authorized PCP Requested Referral 05/15/2022 1 1 Specialty Diagnoses / Procedures Referred By Contact Referred To Contact Neurology / NEUROLOGICAL [facility] Diagnoses Parkinson's disease (HCC) Procedures CONSULT TO [facility] OFFICE/OUTPATIENT [facility] 60-74 MINUTES Juan R John MD [address] [place] [address] [facility] [address] [place] [address] Referral ID Status Reason Start Date Expiration Date Visits Requested Visits Authorized [id number] Authorized PCP Requested Referral 02/14/2023 1 1 Specialty Diagnoses / Procedures Referred By Contac t Referred To Contact [facility] Diagnoses Parkinson's disease (HCC) Procedures SPEECH REHAB FOLLOW UP ORDER TX SPEECH LANG VOICE COMMJ &/AUDITORY PROC IND Speech [facility] [address] [place] [address] [facility] [address] [address] Referral ID Status Reason Start Date Expiration Date Visits Requested Visits Authorized [id number] Pending Review PCP Requested Referral Auto-Generate d Referral 04/02/2022 07/01/2022 1 1 Specialty Diagnoses / Procedures Referred By Contac t Referred To Contact Diagnoses Parkinson's disease (HCC) Procedures CONSULT TO SPEECH THERAPY Carolina Damon MD [address] [address] Referral ID Status Reason Start Date Expiration Date Visits Requested Visits Authorized [id number] Authorized PCP Requested Referral 04/02/2022 07/01/2022 99 99 Specialty Diagnoses / Procedures Referred By Contac t Referred To Contact [facility] Diagnoses Parkinson's disease (HCC) Procedures CONSULT TO DIRECTOR NURSERY SCHOOL OCCUPATIONAL THERAPY EVAL HIGH COMPLEX 60 MINS Carolina Damon MD [address] [address] [facility] [address] [address] Referral ID Status Reason Start Date Expiration Date Visits Requested Visits Authorized [id number] Authorized PCP Requested Referral Auto-Generate d Referral 04/02/2022 04/02/2023 99 99 Specialty Diagnoses / Procedures Referred By Contac t Referred To Contact [facility] Diagnoses Parkinson's disease (HCC) Procedures CONSULT TO PHYSICAL THERAPY PHYSICAL THERAPY EVALUATION HIGH COMPLEX 45 MINS Carolina Damon MD [address] [place] [address] [facility] [address] [place] [address] Referral ID Status Reason Start Date Expiration Date Visits Requested Visits Authorized [id number] Authorized PCP Requested Referral Auto-Generate d Referral 04/02/2022 04/02/2023 99 99 Specialty Diagnoses / Procedures Referred By Contac t Referred To Contact Diagnoses Parkinson's disease without dyskinesia, with fluctuating manifestations (HCC) Procedures PROVIDER ORDERED FOLLOW UP OFFICE/OUTPATIENT [facility] 60 MINUTES Juan R John MD [address] [id number] Referral ID Status Reason Start Date Expiration Date Visits Requested Visits Authorized [id number] Authorized PCP Requested Referral 07/17/2023 10/15/2023 1 1 Specialty Diagnoses / Procedures Referred By Contac t Referred To Contact Diagnoses Parkinson's disease with dyskinesia and fluctuating manifestations (HCC) Procedures PROVIDER ORDERED FOLLOW UP OFFICE/OUTPATIENT [facility] 60 MINUTES Taisha John, MARII.STRAW HAT PLUNGER OPERATOR [address] [address] Referral ID Status Reason Start Date Expiration Date Visits Requested Visits Authorized [id number] Authorized PCP Requested Referral 11/06/2024 1 1 Specialty Diagnoses / Procedures Referred By Contac t Referred To Contact Urology Diagnoses Overactive bladder Urinary tract infection without hematuria, site unspecified Procedures CONSULT TO UROLOGY OFFICE/OUTPATIENT [facility] 60 MINUTES Taisha John, MARII.STRAW HAT PLUNGER OPERATOR [address] [address] Referral ID Status Reason Start Date Expiration Date Visits Requested Visits Authorized [id number] Authorized PCP Requested Referral 11/07/2023 11/06/2024 1 [...] section and content) DATE CREATED AUTHOR 08/08/2017 [facility] DATE CREATED AUTHOR AUTHOR'S ORGANIZ ATION 10/10/2017 [facility] DATE CREATED AUTHOR AUTHOR'S ORGANIZ ATION 01/14/2018 [facility] DATE CREATED AUTHOR AUTHOR'S ORGANIZ ATION 06/12/2018 [facility] DATE CREATED AUTHOR AUTHOR'S ORGANIZ ATION 09/17/2018 [employer] DATE CREATED AUTHOR AUTHOR'S ORGANIZ ATION 12/30/2020 [facility] DATE CREATED AUTHOR AUTHOR'S ORGANIZ ATION 05/28/2023 [facility] DATE CREATED AUTHOR AUTHOR'S ORGANIZ ATION 12/27/2023 [facility] DATE CREATED AUTHOR AUTHOR'S ORGANIZ ATION 07/27/2024 [facility] Goals (unrecognized section and content) Goals may [...] or prosecute any alcohol or drug abuse patient.[facility] HospitalIn the event this information is protected by the Federal Confidentiality of Alcohol and Drug Abuse Patient Records regulations: The Federal rules restrict any use of the information to criminally investigate or prosecute any alcohol or drug abuse patient.[facility] HospitalIn the event this information is protected by the Federal Confidentiality of Alcohol and Drug Abuse Patient Records regulations: The Federal rules restrict any use of the information to criminally investigate or prosecute any alcohol or drug abuse patient.[facility] Hospital[facility] the event this information is protected by the Federal Confidentiality of Alcohol and Drug Abuse Patient Records regulations: The Federal rules restrict any use of the information to criminally investigate or prosecute any alcohol or drug abuse patient.[facility] HospitalIn the event this information is protected by the Federal Confidentiality of Alcohol and Drug Abuse Patient Records regulations: The Federal rules restrict any use of the information to criminally investigate or prosecute any alcohol or drug abuse patient.[facility] HospitalIn the event this information is protected by the Federal Confidentiality of Alcohol and Drug Abuse Patient Records regulations: The Federal rules restrict any use of the information to criminally investigate or prosecute any alcohol or drug abuse patient.[facility] HospitalIn the event this information is protected by the Federal Confidentiality of Alcohol and Drug Abuse Patient Records regulations: The Federal rules restrict any use of the information to criminally investigate or prosecute any alcohol or drug abuse patient.[facility] Hospital[facility] the event this information is protected by the Federal Confidentiality of Alcohol and Drug Abuse Patient Records regulations: The Federal rules restrict any use of the information to criminally investigate or prosecute any alcohol or drug abuse patient.[facility] HospitalIn the event this information is protected by the Federal Confidentiality of Alcohol and Drug Abuse Patient Records regulations: The Federal rules restrict any use of the information to criminally investigate or prosecute any alcohol or drug abuse patient.[facility] HospitalIn the event this information is protected by the Federal Confidentiality of Alcohol and Drug Abuse Patient Records regulations: The Federal rules restrict any use of the information to criminally investigate or prosecute any alcohol or drug abuse patient.[facility] HospitalIn the event this information is protected by the Federal Confidentiality of Alcohol and Drug Abuse Patient Records regulations: The Federal rules restrict any use of the information to criminally investigate or prosecute any alcohol or drug abuse patient.[facility] HospitalIn the event this information is protected by the Federal Confidentiality of Alcohol and Drug Abuse Patient Records regulations: The Federal rules restrict any use of the information to criminally investigate or prosecute any alcohol or drug abuse patient.[facility] HospitalIn the event this information is protected by the Federal Confidentiality of Alcohol and Drug Abuse Patient Records regulations: The Federal rules restrict any use of the information to criminally investigate or prosecute any alcohol or drug abuse patient.[facility] HospitalIn the event this information is protected by the Federal Confidentiality of Alcohol and Drug Abuse Patient Records regulations: The Federal rules restrict any use of the information to criminally investigate or prosecute any alcohol or drug abuse patient.[facility] HospitalIn the event this information is protected by the Federal Confidentiality of Alcohol and Drug Abuse Patient Records regulations: The Federal rules restrict any use of the information to criminally investigate or prosecute any alcohol or drug abuse patient.[facility] HospitalIn the event this information is protected by the Federal Confidentiality of Alcohol and Drug Abuse Patient Records regulations: The Federal rules restrict any use of the information to criminally investigate or prosecute any alcohol or drug abuse patient.[facility] HospitalIn the event this information is protected by the Federal Confidentiality of Alcohol and Drug Abuse Patient Records regulations: The Federal rules restrict any use of the information to criminally investigate or prosecute any alcohol or drug abuse patient.[facility] HospitalIn the event this information is protected by the Federal Confidentiality of Alcohol and Drug Abuse Patient Records regulations: The Federal rules restrict any use of the information to criminally investigate or prosecute any alcohol or drug abuse patient.[facility] HospitalIn the event this information is protected by the Federal Confidentiality of Alcohol and Drug Abuse Patient Records regulations: The Federal rules restrict any use of the information to criminally investigate or prosecute any alcohol or drug abuse patient.[facility] HospitalIn the event this information is protected by the Federal Confidentiality of Alcohol and Drug Abuse Patient Records regulations: The Federal rules restrict any use of the information to criminally investigate or prosecute any alcohol or drug abuse patient.[facility] HospitalIn the event this information is protected by the Federal Confidentiality of Alcohol and Drug Abuse Patient Records regulations: The Federal rules restrict any use of the information to criminally investigate or prosecute any alcohol or drug abuse patient.[facility] HospitalIn the event this information is protected by the Federal Confidentiality of Alcohol and Drug Abuse Patient Records regulations: The Federal rules restrict any use of the information to criminally investigate or prosecute any alcohol or drug abuse patient.[facility] HospitalIn the event this information is protected by the Federal Confidentiality of Alcohol and Drug Abuse Patient Records regulations: The Federal rules restrict any use of the information to criminally investigate or prosecute any alcohol or drug abuse patient.[facility] HospitalIn the event this information is protected by the Federal Confidentiality of Alcohol and Drug Abuse Patient Records regulations: The Federal rules restrict any use of the information to criminally investigate or prosecute any alcohol or drug abuse patient.[facility] HospitalIn the event this information is protected by the Federal Confidentiality of Alcohol and Drug Abuse Patient Records regulations: The Federal rules restrict any use of the information to criminally investigate or prosecute any alcohol or drug abuse patient.[facility] HospitalIn the event this information is protected by the Federal Confidentiality of Alcohol and Drug Abuse Patient Records regulations: The Federal rules restrict any use of the information to criminally investigate or prosecute any alcohol or drug abuse patient.[facility] HospitalIn the event this information is protected by the Federal Confidentiality of Alcohol and Drug Abuse Patient Records regulations: The Federal rules restrict any use of the information to criminally investigate or prosecute any alcohol or drug abuse patient.[facility] HospitalIn the event this information is protected by the Federal Confidentiality of Alcohol and Drug Abuse Patient Records regulations: The Federal rules restrict any use of the information to criminally investigate or prosecute any alcohol or drug abuse patient.[facility] HospitalIn the event this information is protected by the Federal Confidentiality of Alcohol and Drug Abuse Patient Records regulations: The Federal rules restrict any use of the information to criminally investigate or prosecute any alcohol or drug abuse patient.[facility] HospitalIn the event this information is protected by the Federal Confidentiality of Alcohol and Drug Abuse Patient Records regulations: The Federal rules restrict any use of the information to criminally investigate or prosecute any alcohol or drug abuse patient.[facility] HospitalIn the event this information is protected by the Federal Confidentiality of Alcohol and Drug Abuse Patient Records regulations: The Federal rules restrict any use of the information to criminally investigate or prosecute any alcohol or drug abuse patient.[facility] HospitalIn the event this information is protected by the Federal Confidentiality of Alcohol and Drug Abuse Patient Records regulations: The Federal rules restrict any use of the information to criminally investigate or prosecute any alcohol or drug abuse patient.[facility] HospitalIn the event this information is protected by the Federal Confidentiality of Alcohol and Drug Abuse Patient Records regulations: The Federal rules restrict any use of the information to criminally investigate or prosecute any alcohol or drug abuse patient.[facility] HospitalIn the event this information is protected by the Federal Confidentiality of Alcohol and Drug Abuse Patient Records regulations: The Federal rules restrict any use of the information to criminally investigate or prosecute any alcohol or drug abuse patient.[facility] HospitalIn the event this information is protected by the Federal Confidentiality of Alcohol and Drug Abuse Patient Records regulations: The Federal rules restrict any use of the information to criminally investigate or prosecute any alcohol or drug abuse patient.[facility] HospitalIn the event this information is protected by the Federal Confidentiality of Alcohol and Drug Abuse Patient Records regulations: The Federal rules restrict any use of the information to criminally investigate or prosecute any alcohol or drug abuse patient.[facility] HospitalIn the event this information is protected by the Federal Confidentiality of Alcohol and Drug Abuse Patient Records regulations: The Federal rules restrict any use of the information to criminally investigate or prosecute any alcohol or drug abuse patient.[facility] HospitalIn the event this information is protected by the Federal Confidentiality of Alcohol and Drug Abuse Patient Records regulations: The Federal rules restrict any use of the information to criminally investigate or prosecute any alcohol or drug abuse patient.[facility] HospitalIn the event this information is protected by the Federal Confidentiality of Alcohol and Drug Abuse Patient Records regulations: The Federal rules restrict any use of the information to criminally investigate or prosecute any alcohol or drug abuse patient.[facility] HospitalIn the event this information is protected by the Federal Confidentiality of Alcohol and Drug Abuse Patient Records regulations: The Federal rules restrict any use of the information to criminally investigate or prosecute any alcohol or drug abuse patient.[facility] HospitalIn the event this information is protected by the Federal Confidentiality of Alcohol and Drug Abuse Patient Records regulations: The Federal rules restrict any use of the information to criminally investigate or prosecute any alcohol or drug abuse patient.[facility] HospitalIn the event this information is protected by the Federal Confidentiality of Alcohol and Drug Abuse Patient Records regulations: The Federal rules restrict any use of the information to criminally investigate or prosecute any alcohol or drug abuse patient.[facility] HospitalIn the event this information is protected by the Federal Confidentiality of Alcohol and Drug Abuse Patient Records regulations: The Federal rules restrict any use of the information to criminally investigate or prosecute any alcohol or drug abuse patient.[facility] HospitalIn the event this information is protected by the Federal Confidentiality of Alcohol and Drug Abuse Patient Records regulations: The Federal rules restrict any use of the information to criminally investigate or prosecute any alcohol or drug abuse patient.[facility] HospitalIn the event this information is protected by the Federal Confidentiality of Alcohol and Drug Abuse Patient Records regulations: The Federal rules restrict any use of the information to criminally investigate or prosecute any alcohol or drug abuse patient.[facility] HospitalIn the event this information is protected by the Federal Confidentiality of Alcohol and Drug Abuse Patient Records regulations: The Federal rules restrict any use of the information to criminally investigate or prosecute any alcohol or drug abuse patient.[facility] HospitalIn the event this information is protected by the Federal Confidentiality of Alcohol and Drug Abuse Patient Records regulations: The Federal rules restrict any use of the information to criminally investigate or prosecute any alcohol or drug abuse patient.[facility] HospitalIn the event this information is protected by the Federal Confidentiality of Alcohol and Drug Abuse Patient Records regulations: The Federal rules restrict any use of the information to criminally investigate or prosecute any alcohol or drug abuse patient.[facility] HospitalIn the event this information is protected by the Federal Confidentiality of Alcohol and Drug Abuse Patient Records regulations: The Federal rules restrict any use of the information to criminally investigate or prosecute any alcohol or drug abuse patient.[facility] HospitalIn the event this information is protected by the Federal Confidentiality of Alcohol and Drug Abuse Patient Records regulations: The Federal rules restrict any use of the information to criminally investigate or prosecute any alcohol or drug abuse patient.[facility] HospitalIn the event this information is protected by the Federal Confidentiality of Alcohol and Drug Abuse Patient Records regulations: The Federal rules restrict any use of the information to criminally investigate or prosecute any alcohol or drug abuse patient.[facility] HospitalIn the event this information is protected by the Federal Confidentiality of Alcohol and Drug Abuse Patient Records regulations: The Federal rules restrict any use of the information to criminally investigate or prosecute any alcohol or drug abuse patient.[facility] HospitalIn the event this information is protected by the Federal Confidentiality of Alcohol and Drug Abuse Patient Records regulations: The Federal rules restrict any use of the information to criminally investigate or prosecute any alcohol or drug abuse patient.[facility] HospitalIn the event this information is protected by the Federal Confidentiality of Alcohol and Drug Abuse Patient Records regulations: The Federal rules restrict any use of the information to criminally investigate or prosecute any alcohol or drug abuse patient.[facility] HospitalIn the event this information is protected by the Federal Confidentiality of Alcohol and Drug Abuse Patient Records regulations: The Federal rules restrict any use of the information to criminally investigate or prosecute any alcohol or drug abuse patient.[facility] Reason for Visit (unrecogniz ed section and content) Reason Comments Neurotoxin Injection Specialty Diagnoses / Procedures Referred By Contact Referred To Contact NEUROLOGICAL [facility]RISTIAN Diagnoses Dystonia of foot Procedures BOTULINUM TOXIN A PER 1 UNIT CHEMODENERVATION ONE EXTREMITY 1-4 MUSCLE Carolina Damon MD [address] [address] Phone: tel: fax: Neurology [address] [address] Phone: tel: fax: Referral ID Status Reason Start Date Expiration Date V isits Requested Visits Authorized [id number] Authorized 02/17/2024 02/16/2025 99 99 Reason Comments PT Progress Note Specialty Diagnoses / Procedures Referred By Contac t Referred To Contact [facility] Diagnoses Parkinson's disease (HCC) Procedures CONSULT TO PHYSICAL THERAPY PHYSICAL THERAPY EVALUATION HIGH COMPLEX 45 MINS Juan R John MD [address] [place] [address] [facility] [address] [place] [address] Referral ID Status Reason Start Date Expiration Date Visits Requested Visits Authorized [id number] Authorized PCP Requested Referral Auto-Generate d Referral 02/17/2022 02/16/2023 99 99 Reason Comments Parkinson's Disease Reason Comments Orders Reason Comments Parkinson's Disease Specialty Diagnoses / Procedures Referred By Contac t Referred To Contact Diagnoses Parkinson's disease (HCC) Procedures PROVIDER ORDERED FOLLOW UP OFFICE/OUTPATIENT NEW HIGH MDM 60-74 MINUTES Juan R John MD [address] [place] [address] Referral ID Status Reason Start Date Expiration Date V isits Requested Visits Authorized [id number] Closed PCP Requested Referral 06/22/2021 09/20/2021 1 [...] Procedures NEW OT PD CLINIC Taisha John, LEASING SALES CONSULTANT.STRAW HAT PLUNGER OPERATOR [address] [place] [address] Jaimee Vazquez OTR/L [address] [place] [address] Referral ID Status Reason Start Date Expiration Date V isits Requested Visits Authorized [id number] Authorized 02/17/2022 02/16/2023 99 99 Specialty Diagnoses / Procedures Referred By Contact Referred To Contact Neurology / NEUROLOGICAL CHRISTIAN Diagnoses Parkinson's disease (HCC) Procedures CONSULT TO [facility] OFFICE/OUTPATIENT [facility] MDM 60-74 MINUTES Juan R John MD [address] [place] [address] [facility] [address] [place] [address] Referral ID Status Reason Start Date Expiration Date V isits Requested Visits Authorized [id number] Closed PCP Requested Referral 02/14/2022 02/14/2023 1 1 Reason Comments PT Eval Patient Education Reason Comments Consult Reason Comments OT Re-eval Specialty Diagnoses / Procedures Referred By Contac t Referred To Contact [facility] Diagnoses Parkinson's disease (HCC) Procedures CONSULT TO [facility] [employer] [facility] COMPLEX 60 MINS Carolina Damon MD [address] [address] [facility] [address] [place] [address] Referral ID Status Reason Start Date Expiration Date Visits Requested Visits Authorized [id number] Authorized PCP Requested Referral Auto-Generate d Referral 04/02/2022 04/02/2023 99 99 Reason Comments Patient Update Reason Comments error Reason Onset Date Comments Refill Request 09/20/2022 Reason Comments Medication Question Reason Onset Date Comments Refill Request 10/22/2022 Reason Comments [id number] Palliative Care Reason Onset Date Comments Refill Request 01/16/2023 Reason Comments Multiple Concerns Reason Comments Chronic Pain Reason Comments No Show Reason Comments Follow Up PD with dyskinesia Specialty Diagnoses / Procedures Referred By Contac t Referred To Contact Diagnoses Parkinson's disease without dyskinesia, with fluctuating manifestations (HCC) Procedures PROVIDER ORDERED FOLLOW UP OFFICE/OUTPATIENT [facility] 60 MINUTES Juan R John MD [address] [place] [address] Referral ID Status Reason Start Date Expiration Date V isits Requested Visits Authorized [id number] Closed PCP Requested Referral 07/17/2023 10/15/2023 1 1 Reason Comments Consult [facility] Specialty Diagnoses / Procedures Referred By Contac t Referred To Contact Urology Diagnoses Overactive bladder Urinary tract infection without hematuria, site unspecified Procedures CONSULT TO UROLOGY OFFICE/OUTPATIENT [facility] 60 MINUTES Taisha John, MARII.STRAW HAT PLUNGER OPERATOR [address] [place] [address] Referral ID Status Reason Start Date Expiration Date V isits Requested Visits Authorized [id number] Closed PCP Requested Referral 11/07/2023 11/06/2024 1 1 Reason Onset Date Comments Refill Request 01/05/2024 Specialty Diagnoses / Procedures Referred By Contac t Referred To Contact Diagnoses Parkinson's disease with dyskinesia and fluctuating manifestations (HCC) Procedures PROVIDER ORDERED FOLLOW UP OFFICE/OUTPATIENT [facility] 60 MINUTES Taisha John, MARII.JAYA [address] [place] [address] Referral ID Status Reason Start Date Expiration Date V isits Requested Visits Authorized [id number] Closed PCP Requested Referral 02/06/2024 11/06/2024 1 [...] Dr. Jakob Chino DO Emergency Provider Active Radarman Relationship Specialty Start Date End Date Nico Schmidt MD [address] [place] [address] PCP - General Family Medicine 12/25/22 Radarman Relationship Specialty Start Date End Date Nico Schmidt MD [address] [place] [address] PCP - General Family Medicine 12/25/22 Radarman Relationship Specialty Start Date End Date Nico Schmidt MD [address] [facility] [address] [place] [address] PCP - General Family Medicine 12/25/22 Radarman Relationship Specialty Start Date End Date Nico Schmidt MD [address] [facility] [address] [place] [address] PCP - General Family Medicine 12/25/22 Radarman Relationship Specialty Start Date End Date Nico Schmidt MD [address] [facility] [address] [place] [address] PCP - General Family Medicine 12/25/22 Radarman Relationship Specialty Start Date End Date Nico Schmidt MD [address] [facility] [address] [place] [address] PCP - General Family Medicine 12/25/22 Radarman Relationship Specialty Start Date End Date Nico Schmidt MD [address] [facility] [address] [place] [address] PCP - General Family Medicine 12/25/22 Radarman Relationship Specialty Start Date End Date Nico Schmidt MD [address] [facility] [address] [place] [address] PCP - General Family Medicine 12/25/22 Radarman Relationship Specialty Start Date End Date Nico Schmidt MD [address] [facility] [address] [place] [address] PCP - General Family Medicine 12/25/22 Radarman Relationship Specialty Start Date End Date Nico Schmidt MD [address] [facility] [address] [place] [address] PCP - General Family Medicine 12/25/22 Radarman Relationship Specialty Start Date End Date Nico Schmidt MD [address] [facility] [address] [place] [address] PCP - General Family Medicine 12/25/22 Team [...] MD Primary Care Provider, Attending Provider Active Radarman Relationship Specialty Start Date End Date Nico Schmidt MD [address] [facility] [address] [place] [address] PCP - General Family Medicine 12/25/22 Radarman Relationship Specialty Start Date End Date Nico Schmidt MD [address] [facility] [address] [place] [address] PCP - General Family Medicine 12/25/22 Radarman Relationship Specialty Start Date End Date Nico Schmidt MD [address] [facility] [address] [place] [address] PCP - General Family Medicine 12/25/22 Radarman Relationship Specialty Start Date End Date Nico Schmidt MD [address] [facility] [address] [place] [address] PCP - General Family Medicine 12/25/22 Radarman Relationship Specialty Start Date End Date Nico Schmidt MD [address] [facility] [address] [place] [address] PCP - General Family Medicine 12/25/22 Radarman Relationship Specialty Start Date End Date Nico Schmidt MD [address] [facility] [address] [place] [address] PCP - General Family Medicine 12/25/22 Radarman Relationship Specialty Start Date End Date Nico Schmidt MD [address] [place] [address] [address] [place] [address] PCP - General Family Medicine 12/25/22 Team Status: Inactive Member Role Status Dates Dr. Nico Schmidt MD Primary Care Provider Active Dr. Jakob Chino DO Attending Provider, Jamia de jesus Active Radarman Relationship Specialty Start Date End Date Nico Schmidt MD [address] [place] [address] [address] [place] [address] PCP - General Family Medicine 12/25/22 Radarman Relationship Specialty Start Date End Date Nico Schmidt MD [address] [place] [address] [address] [place] [address] PCP - General Family Medicine 12/25/22 Radarman Relationship Specialty Start Date End Date Nico Schmidt MD [address] [place] [address] [address] [place] [address] PCP - General Family Medicine 12/25/22 Radarman Relationship Specialty Start Date End Date Nico Schmidt MD [address] [place] [address] [address] [place] [address] PCP - General Family Medicine 12/25/22 Radarman Relationship Specialty Start Date End Date Nico Schmidt MD [address] [facility] [address] [place] [address] PCP - General Family Medicine 12/25/22 Radarman Relationship Specialty Start Date End Date Nico Schmidt MD [address] [facility] [address] [place] [address] PCP - General Family Medicine 12/25/22 Radarman Relationship Specialty Start Date End Date Nico Schmidt MD [address] [facility] [address] [place] [address] PCP - General Family Medicine 12/25/22 FOR [...] BE BASED ON THE PRIMARY CLINICAL RECORDS. [facility] [employer] provides no warranty or guarantee of the accuracy or completeness of information in this document.
[2024-07-28 22:48] LABS: Lactic Acid 2.9 mmol/L (0.0-2.0); Troponin T High Sens 4 HR 57 ng/L (<=22)
--- NOTE | 2024-07-28 23:45 | ECHOD_ITS ---
Reason For Study Reason For Study: Syncope Procedure This was a 2D Doppler, Color Flow transthoracic echocardiogram. Technically difficult study due to patients body habitus. Exam performed portable in patient room. Left Ventricle Mild concentric left ventricular hypertrophy. Normal LV size. The LV systolic function is normal. EF is 60 %. Stage 1 diastolic dysfunction. Right Ventricle Normal right ventricle. Atria The left and right atria are normal. Mitral Valve Moderate mitral annular calcification. Trivial mitral valve insufficiency. Tricuspid Valve Trivial tricuspid valve insufficiency. Unable to estimate RV systolic pressure due to insufficient tricuspid regurgitant envelope. Aortic Valve Trisinus/trileaflet aortic valve. Mild diffuse aortic valve calcification. Trivial aortic valve insufficiency. Pulmonic Valve The pulmonic valve is not well visualized. Great Vessels Normal sized aortic root. Pericardium/Pleural No pericardial effusion. MMode/2D Measurements & Calculations LVIDd: 3.7 cm IVSd: 1.2 cm LA dimension: 3.0 cm LVIDs: 2.7 cm LVPWd: 0.94 cm FS: 27.7 % LAV(MOD-sp4): 19.6 ml LA A4 area: 9.4 cm2 RA A4 area: 7.4 cm2 TAPSE: 2.7 cm Time Measurements MV dec time: 0.30 sec Doppler Measurements & Calculations MV E max luis: 37.7 cm/sec Lat Peak E' Luis: 5.1 cm/sec Med Peak E' Luis: 5.2 cm/sec MV A max luis: 78.1 cm/sec E/E' lat: 7.5 E/E' med: 7.3 MV E/A: 0.48 MV V2 max: 92.5 cm/sec MV P1/2t max luis: 53.1 cm/sec Ao V2 max: 67.0 cm/sec MV max P.4 mmHg MV P1/2t: 97.6 msec Ao max P.8 mmHg MV V2 mean: 38.9 cm/sec MV mean P.77 mmHg MV dec slope: 159.2 cm/sec2 MV V2 VTI: 19.3 cm MVA(P1/2t): 2.3 cm2 LV V1 max: 54.7 cm/sec TR max luis: 205.8 cm/sec LV V1 max P.2 mmHg TR max P.9 mmHg ECHO/Echo Complete Interpretation Summary Technically difficult study. Mild concentric left ventricular hypertrophy. The LV systolic function is normal. EF is 60 %. Stage 1 diastolic dysfunction. Moderate mitral annular calcification. Mild diffuse aortic valve calcification. Ordering Physician: Thalia Hanna Performed By: Zaheer San [facility]
[2024-07-29] VITALS (9 sets, daily range): BP systolic 84–192; BP diastolic 61–105; PULSE 60–94; RESP 15–18; TEMP 35.8–36.9; O2SAT 94–100
[2024-07-29] MEDS: Lactated Ringers 1,000 ML 150 ML IV ×2 (00:09→05:58)
[2024-07-29] MEDS: Carbidopa/Levodopa 25/100 Tablet PO ×6 (03:03→22:03)
[2024-07-29 07:51] LABS: Absolute Lymphocyte Count 1.57 X10^3/uL (0.83-4.51); Absolute Neutrophil Count 6.1 X10^3/uL (2.0-7.7); Basophil# 0.04 X10^3/uL; Basophil% 0.5 % (0-1); Eosinophil# 0.26 X10^3/uL; Hematocrit 43.7 % (40-54); Hemoglobin 14.4 g/dL (13.0-16.5); Lymphocyte # 1.57 X10^3/ul (0.83-4.51); Mean Corpuscular Hgb 30.8 pg (27.0-32.0); Mean Corpuscular Volume 93.6 fL (80-94); Mean Platelet Vol. 11.9 fl (6.2-12.0); NRBC Flagged by Analyzer 0 % (0-5); Neutrophil # 6.11 X10^3/uL (2.7-7.7); Neutrophil % 70.2 % (47-70); Platelet Count 174 K/mm3 (150-450); RBC Distribution Width CV 13.4 % (11.6-14.6); RBC Distribution Width SD 45.5 fl (35.1-43.9); Red Blood Count 4.67 M/mm3 (4.6-6.2); White Blood Count 8.7 K/mm3 (4.4-11.0)
--- NOTE | 2024-07-29 08:20 | PCM.PN.HOSP ---
Reason for Visit Reason for Visit: Diagnoses Parkinson's disease with dyskinesia, without mention of fluctuations (07/28/24) Orthostatic hypotension (07/28/24) Syncope and collapse (07/28/24) Subjective Subjective Feeling better. Recalls my taking care of him when he had cellulitis (back in 2019). Objective Data Objective Data Vital Signs: Vital Signs Temp Pulse Resp BP Pulse Ox O2 Del Method 36.4 C L 65 15 168/86 H 94 Room Air 07/29/24 05:50 07/29/24 05:50 07/29/24 05:50 07/29/24 05:50 07/29/24 05:50 07/29/24 05:50 Oxygen Delivery Method Room Air Weight: 46.8 kg Body Mass Index (BMI) 16.1 Intake & Output: Intake and Output for Last 24 Hours 07/27/24 07/28/24 07/29/24 23:59 23:59 23:59 Intake Total 1000 / 1000 1070 / 1070 Output Total 0 / 0 Balance 1000 / 1000 1070 / 1070 Lab / Micro Data 07/29/24 07:30 07/29/24 07:30 Labs: Laboratory Results - last 24 hr 07/28/24 18:04: WBC 9.4, RBC 4.54 L, Hgb 14.2, Hct 42.2, MCV 93.0, MCH 31.3, MCHC 33.6, RDW Std Deviation 45.6 H, RDW Coeff of Lexii 13.3, Plt Count 191, MPV 12.2 H, Immature Gran % (Auto) 0.500, Neut % (Auto) 83.2 H, Lymph % (Auto) 8.0 L, [place] % (Auto) 7.4, Eos % (Auto) 0.5, Baso % (Auto) 0.4, Absolute Neuts (auto) 7.8 H, Absolute Lymphs (auto) 0.75 L, Nucleated RBC % 0, PT 15.9 H, INR 1.3, APTT 31.4, Sodium 134, Potassium 4.5, Chloride 99, Carbon Dioxide 26.1, Anion Gap 9, BUN 20 H, Creatinine 1.15, Estim Creat Clear Calc 35.48 L, Est GFR (MDRD) Non-Af 66, BUN/Creatinine Ratio 17.1, Glucose 88, Lactic Acid 2.1 H*, Calcium 8.5, Troponin T High Sens 60 H* 07/28/24 19:51: Urine Color Yellow, Urine Clarity Sl Cldy, Urine pH 6.0, Ur Specific [place] 1.020, Urine Protein 30 H, Urine Glucose (UA) Normal, Urine Ketones 5 H, Urine Occult Blood 10 H, Urine Nitrite Negative, Urine Bilirubin Negative, Urine Urobilinogen 1 H, Ur Leukocyte Esterase 25 H, Urine RBC 0-5 SEEN, Urine WBC 0-5 SEEN, Ur Squamous Epith Cells 0 SEEN, Triple Phos Crystals KJ0, Urine Bacteria 0 SEEN, Urine Mucus 0 SEEN 07/28/24 21:10: Troponin T Hi Sens 2 Hr 57 H* 07/28/24 22:17: Lactic Acid 2.9 H*, Troponin T Hi Sens 4Hr 57 H* 07/29/24 07:30: WBC 8.7, RBC 4.67, Hgb 14.4, Hct 43.7, MCV 93.6, MCH 30.8, MCHC 33.0, RDW Std Deviation 45.5 H, RDW Coeff of Lexii 13.4, Plt Count 174, MPV 11.9, Immature Gran % (Auto) 0.300, Neut % (Auto) 70.2 H, Lymph % (Auto) 18.0 L, [place] % (Auto) 8.0, Eos % (Auto) 3.0, Baso % (Auto) 0.5, Absolute Neuts (auto) 6.1, Absolute Lymphs (auto) 1.57, Nucleated RBC % 0 Radiography Diagnostic Testing: Radiology Impression Chest X-Ray 07/28/24 18:40 IMPRESSION: No Acute Findings. Reading Location: [place] [id number] Physical Exam Const alert and no apparent distress Constitutional Narrative: up in bed. Difficulty grasping the utensils. HEENT head/scalp atraumatic HEENT Narrative: temporal wasting. Resp normal respiratory effort, no retractions, no use of accessory muscles and clear to auscultation bilaterally Cardio regular rate, regular rhythm, S1 normal heart sound and S2 normal heart sound GI normal to inspection, nondistended, normoactive bowel sounds, soft to palpation, non-tender and non-distended Assessment & Plan Assessment/Plan (1) Syncope: PLAN: Likely 2/2 dehydration in patient with Parkinson's disease. Received IVF. Recheck orthostatic vital signs. (2) Elevated troponin: PLAN: May be demand ischemia from syncope. Echo completed, results pending. If unremarkable, then no additional work up, but if has wall motion abnormality may need cardiology input. (3) Debility: PLAN: Given dehydration may have an outsided physical impact on an individual with parkinson's disease PT OT CM to assist w disposition PLAN: Plan Chronic conditions: parkinson's disease:on cabidopa/levodopa, rasagiline, amantadine VTE prophylaxis: Charges/Coding Visit Charges Inpatient E&M: 13768 Subs Hosp L2
[2024-07-29 08:33] LABS: Magnesium 1.9 mg/dL (1.5-2.2); Phosphorus 2.6 mg/dL (2.7-4.5)
[2024-07-29 08:34] LABS: ALB/GLOB Ratio 1.2 RATIO (0.9-2.4); AST(SGOT) 13 U/L (<=37); Alanine Aminotransfer ALT/SGPT < 5 U/L (<=46); Albumin, Serum 3.4 g/dL (3.4-4.8); Alkaline Phosphatase 100 U/L (40-129); Anion Gap 9 (5-15); BUN 18 mg/dL (4-19); BUN/Creat Ratio 16.7 RATIO (10-20); Calcium,Total 8.7 mg/dL (7.6-11.0); Carbon Dioxide 26.6 mmol/L (21.0-32.0); Chloride 99 mmol/L (98-108); Creatinine, Serum 1.07 mg/dL (0.70-1.20); EST Glomerular Filtration Rate 72 (>60); Estimated Creatinine Clearance 39.49 ml/min (50-250); Globulin 2.8 g/dL (2.2-4.2); Glucose 67 mg/dL (70-99); Potassium 4.3 mmol/L (3.3-5.1); Protein, Total 6.2 g/dL (5.9-8.4); Sodium Level 134 mmol/L (133-145); Total Bilirubin 0.66 mg/dL (0.00-1.30)
[2024-07-29] MEDS: Ensure Plus High Protein 120 ML LIQUID PO ×3 (09:02→18:04)
[2024-07-29] MEDS: Baclofen 10 MG Tablet PO ×3 (09:02→23:10)
[2024-07-29] MEDS: Amantadine 100 MG Capsule PO (09:03)
[2024-07-29] MEDS: Menthol/Lanolin/Calamine/Znox 113 GM Tube 1 APPLIC TOPICAL ×2 (09:11→23:09)
[2024-07-29] MEDS: Enoxaparin 30 MG/0.3 ML Syringe SC (11:26)
[2024-07-29] MEDS: Baclofen 10 MG Tablet 5 MG PO (13:13)
[2024-07-29] MEDS: 0.9% Saline Lock 10 ML Syringe IV ×2 (13:13→22:03)
--- NOTE | 2024-07-29 14:46 | CASEMGMT ---
RN?CM?PV DESIGN ENGINEER CM to room to meet with patient for initial transition planning/care coordination assessment. RN CM introduced self and role at [facility]. Patient sitting in chair, alert and oriented. Patient willing to participate in assessment and is able to answer all questions appropriately. Care providers, pharmacy, and demographics verified. PCP: Dr Schmidt Specialists: Dr Juan R John and Dr Carina Simeon, Neurologist Preferred Pharmacy: [facility] Insurance: [facility], MMO Prescription Benefit: yes LNOK: Living Arrangements: Patient lives with and 2 grandsons (ages 23 & 19) in a single story home with ramp entrance. Pt has not been able to walk for approx a year. assists pt w/care and does IADL's. Transportation: . Pt states she can take him home @ dc. DME: Patient has a W/C, walker, W/C, 3 in 1 commode, transport chair, leg brace. He has a shower chair, but does not use. Pt states he was given info from DORIE Trevizo, during a prior visit re: customized W/C's, but he has lost the info. RN WILLIAMS spoke w/Joseline OSHEA, who states [facility] [place] and [facility] both do customized W/C's. Info (name & contact) #'s to both of these companies provided to pt. He voices appreciation. SNF/HHC: Pt has been to [facility], [facility] in [place], and [facility]. He is currently receiving maintenance PT through [facility] weekly and private-pays a director personal 3 x/week. He would like to resume w/[facility] and declines wanting list of other HHC options. Pt wishes to return home and states has no concerns with going home at time of discharge.?CM?to follow for any further discharge planning/needs.? Pt voices no further concerns/needs at this time.? Advised pt to ask for?CM?if any further questions/concerns/needs arise.? Voices understanding. PLAN:??Home w/spousal support, CHRIS w/[facility], and director personal Ivan FINK?RN?CM
--- NOTE | 2024-07-29 14:48 | CHAPLAIN ---
Type of Pastoral Visit _x__ Initial Visit ___ Follow-up Visit ___ On-call Visit ___ General Patient Visit ___ Spiritual Assessment ___ Family Conference ___ Bereavement ___ Rapid Response ___ Code Blue ___ Other (describe below) Pastoral Care Referral From _x__ Patient ___ Family ___ Nurse ___ Physician ___ Research Neuropsychologist ___ Coal Washer Tender ___ Other (describe below) Sacrament/Intervention _x__ Active listening ___ Anointing ___ Rastafari ___ Bereavement ___ Communion ___ [place] exploration ___ ___ Life review ___ Prayer ___ Reconciliation ___ Sacrament of Sick _x__ Supportive presence ___ Wedding ___ Other (describe below) Pastoral Comments patient was seen before in Rehab about a year ago; family members are also in the room; each gives some of the details of what caused a return to the hospital; pt has debilitating health issues and it is difficult to understand some of what the patient says; pt does appear to show gratitude for the visit and the interest shown in him; pt does not appear to be in any distress but is willing to have evaluations done for any needed discoveries; pt denies specific needs but says that he is grateful for the concern; family members are offered support too
--- NOTE | 2024-07-29 14:53 | CASEMGMT ---
Addendum entered by Nisa Del Angel 07/29/24 15:27: Pt is active with [facility] for PT. RN CM updated. Nisa Del Angel DC Planning Asst. Original Note: Discharge Planning HH resumption referral sent to [facility]. Asked what disciplines they are providing. Awaiting response. Nisa Del Angel DC Planning Asst.
--- NOTE | 2024-07-29 15:24 | CASEMGMT ---
HOLT Met with patient to complete HOLT form. HOLT form and its content were verbally explained and patient's questions were answered to the best of my ability.? Patient voiced understanding and signed HOLT form.? Patient provided a copy of signed HOLT form and original placed in patient's chart.? Patient had no further questions. Nisa Del Angel, Discharge Planning Asst
[2024-07-29] MEDS: clonazePAM 0.5 MG Tablet PO ×2 (23:09)
[2024-07-30] VITALS (7 sets, daily range): BP systolic 118–160; BP diastolic 60–91; PULSE 75–90; RESP 16–17; TEMP 36.4–36.8; O2SAT 93–99
[2024-07-30] MEDS: Carbidopa/Levodopa 25/100 Tablet PO ×6 (02:10→23:07)
--- NOTE | 2024-07-30 07:43 | PN.HOSP_ITS ---
Reason for Visit Reason for Visit: Diagnoses Parkinson's disease with dyskinesia, without mention of fluctuations (07/29/24) Orthostatic hypotension (07/29/24) Other malaise (07/29/24) Syncope and collapse (07/29/24) Other specified abnormal findings of blood chemistry (07/29/24) Subjective Subjective still feeling weak. Objective Data Objective Data Vital Signs: Vital Signs Temp Pulse Resp BP Pulse Ox O2 Del Method 36.4 C L 90 16 126/79 H 99 Room Air 07/30/24 03:38 07/30/24 03:38 07/30/24 03:38 07/30/24 03:38 07/30/24 03:38 07/30/24 03:38 Oxygen Delivery Method Room Air Weight: 46.8 kg Body Mass Index (BMI) 16.1 Intake & Output: Intake and Output for Last 24 Hours 07/28/24 07/29/24 07/30/24 23:59 23:59 23:59 Intake Total 1000 / 1000 2310 / 2310 Output Total 0 / 0 1100 / 1900 800 / 800 Balance 1000 / 1000 1210 / 410 -800 / -800 Medical Nutrition Assessment Dietitian: Malnutrition Criteria Met Start: 07/29/24 14:14 Freq: Status: Active Protocol: Document 07/29/24 14:14 SB (Rec: 07/29/24 14:14 SB [id number]) Nutrition Malnutrition Evidence of Yes Malnutrition Exists Malnutrition (severe Chronic ): Evidenced By Suboptimal Energy Intake (Severe),Physical Changes ( Severe) Clinical Problem Chronic Disease or Condition Related Malnutrition Etiology severe protein calorie malnutrition related to Parkinson's disease resulting in inadequate oral intake Signs/Symptoms as evidenced by PO meeting <75% of estimated nutrition needs greater than 1 month and severe muscle wasting in clavicle, thighs, and calf. Status Active Problem Recommendation Dietitian Continue regular diet per IT SALES EXECUTIVE consistency/texture Recommendations/ recommendations. Changes Will increase 120ml EPHP TID with medpass to 4x daily. Discontinue siobhan BID with medpass and order orange siobhan BID with breakfast and dinner. Will monitor weight trends. If PO intake and weight continue to decline, recommend nutrition support. Lab / Micro Data 07/29/24 07:30 07/29/24 07:30 Labs: Laboratory Results - last 24 hr 07/29/24 07:30: WBC 8.7, RBC 4.67, Hgb 14.4, Hct 43.7, MCV 93.6, MCH 30.8, MCHC 33.0, RDW Std Deviation 45.5 H, RDW Coeff of Lexii 13.4, Plt Count 174, MPV 11.9, Immature Gran % (Auto) 0.300, Neut % (Auto) 70.2 H, Lymph % (Auto) 18.0 L, [place] % (Auto) 8.0, Eos % (Auto) 3.0, Baso % (Auto) 0.5, Absolute Neuts (auto) 6.1, Absolute Lymphs (auto) 1.57, Nucleated RBC % 0, Sodium 134, Potassium 4.3, Chloride 99, Carbon Dioxide 26.6, Anion Gap 9, BUN 18, Creatinine 1.07, Estim Creat Clear Calc 39.49 L, Est GFR (MDRD) Non-Af 72, BUN/Creatinine Ratio 16.7, G lucose 67 L, Calcium 8.7, Phosphorus 2.6 L, Magnesium 1.9, Total Bilirubin 0.66, AST 13, ALT < 5, Alkaline Phosphatase 100, Total Protein 6.2, Albumin 3.4, Globulin 2.8, Albumin/Globulin Ratio 1.2, TSH 2.740 Radiography Diagnostic Testing: Radiology Impression Echocardiogram 07/28/24 23:45 Interpretation Summary Technically difficult study. Mild concentric left ventricular hypertrophy. The LV systolic function is normal. EF is 60 %. Stage 1 diastolic dysfunction. Moderate mitral annular calcification. Mild diffuse aortic valve calcification. Ordering Physician: Thalia Hanna Performed By: Zaheer San RCS Physical Exam Const Constitutional Narrative: slow to wake up. HEENT HEENT Narrative: white exudate on tongue. red, irritated soft palate. Resp normal respiratory effort and no retractions GI normal to inspection, nondistended, normoactive bowel sounds and soft to palpation Assessment & Plan Assessment/Plan (1) Syncope: PLAN: Likely 2/2 dehydration in patient with Parkinson's disease. Received IVF. Recheck orthostatic vital signs. (2) Elevated troponin: PLAN: May be demand ischemia from syncope. Echo shows an EF 60% w stage I DD. (3) Debility: PLAN: Given dehydration may have an outsided physical impact on an individual with parkinson's disease PT OT CM to assist w disposition (4) Dysphagia: PLAN: 2/2 parkinson's disease. Previously had a PEG but has been removed. MBS ordered. He does not want another PEG. PLAN: Plan Chronic conditions: * parkinson's disease:on cabidopa/levodopa, rasagiline, amantadine VTE prophylaxis: Charges/Coding Visit Charges Inpatient E&M: 06056 Subs Hosp L2
[2024-07-30] MEDS: Enoxaparin 30 MG/0.3 ML Syringe SC (09:06)
[2024-07-30] MEDS: Baclofen 10 MG Tablet PO ×2 (09:06→23:07)
[2024-07-30] MEDS: Amantadine 100 MG Capsule PO (09:07)
[2024-07-30] MEDS: Menthol/Lanolin/Calamine/Znox 113 GM Tube 1 APPLIC TOPICAL ×2 (09:12→20:15)
[2024-07-30] MEDS: NYSTATIN 500,000 UNIT/5 ML UDC 500000 UNIT PO ×4 (10:08→23:07)
[2024-07-30] MEDS: Baclofen 10 MG Tablet 5 MG PO (13:09)
--- NOTE | 2024-07-30 15:26 | SP.MBSS_ITS ---
Modified Barium Swallow Patient Information Study Date: 07/30/24 Study Time: 13:00 Direct Billable Minutes: 98 Total Minutes procedure & reportin Diagnosis: Dysphagia R13.10 Referring Physician: Phani Villeda Reason for Referral: Assess swallow function, assess risk for aspiration, and determine recommendations for least restrictive diet textures and compensatory strategies to improve safety of swallow. Medical History: The patient presented to the ED 07/28/2024 for syncope at home while his was reading him news stories. He was not responsive for ~10min and then spontaneously regained consciousness. EMS was called and he was brought to the ER. He was found to be hypotensive and with positive orthostatic vitals signs. BP improved with IV fluid administration. He also had elevated troponin. He was admitted for management of syncope, hypotension, and debility. ST consulted due to concern for swallowing difficulty. BSE 07/29/2024 revealed concern for severe oral dysphagia and moderate pharyngeal dysphagia w/ recommendation for full THIN liquid diet and MBSS today to further assess swallow function and risk for aspiration. He was recommended for critical meds whole w/ water; however, RN reported he had great difficulty w/ this today and she had concerns for choking w/ medications. PMH: Encounter for feeding tube placement, Parkinson's disease, BPH, HLD, HTN, DM type 2, Dysphagia - See EMR for full PMH. Dysphagia Hx at [facility]: Pt participated in [address] services targeting oropharyngeal dysphagia. Pt was discharged home from [facility] on 02/01/23 w/ recommendations for soft and bite sized textures/ thin liquids primarily for comfort/ pleasure w/ PEG as the primary source of nutrition/ hydration. Pt was evaluated upon admission to TCU on w/ continued recommendations for soft and bite sized textures/ thin liquids primarily for comfort/ pleasure w/ PEG as the primary source of nutrition/ hydration. During this reporting period, pt participated in Fiberoptic Evaluation of Swallowing (FEES). See report for full details. It was recommended pt be on minced + moist textures; thin liquids w/ use of compensatory strategies and PEG tube to supplement. Pt politely refused minced + moist textures after extensive education of the risks associated with being on regular textures. Pt requesting advancement to regular textures; thin liquids understanding the risks (choking + aspiration pneumonia that could result in ). Current Diet Ordered: Full THIN liquid diet Dentition: Natural Teeth Mental Status: WNL Respiratory Status: Oxygenating on Room Air Penetration-Aspiration Scale Penetration-Aspiration Scale: OBJECTIVE ASSESSMENT OF SWALLOW FUNCTION (QUANTITATIVE ? PER TRIAL): PENETRATION / ASPIRATION SCALE ([place]NIS): 1 = does not enter airway 2 = enters airway/above vocal folds/ejected 3 = enters airway/above vocal folds/not ejected 4 = enters airway/contacts vocal folds/ejected 5 = enters airway/contacts vocal folds/not ejected 6 = enters airway/below vocal folds/ejected 7 = enters airway/below vocal folds/not ejected despite effort 8 = enters airway/below vocal folds/no effort VIDEOFLOROSCOPIC SCALE SCORE ([place]NIS): Grade I = aspiration of material that has penetrated into the laryngeal vestibule, intact cough reflex Grade II = aspiration < 10 % of the bolus, intact cough reflex Grade III = aspiration of < 10 % of the bolus, reduced cough reflex or aspiration of > 10 % of the bolus, intact cough reflex Grade IV = aspiration of > 10 % of the bolus, reduced cough reflex Penetration-Aspiration Scale Score Thin Liquid via sequential sips:straw: Result: 2= enter airway/above vocal folds/ejected Comment: Cued single sip, pt bit down on straw and took multiple sips Pudding via teaspoon: Comment: No PAS score due to inability for A-P transport. Some of the barium cleared w/ a liquid wash during the following trial. Thin Liquid via sequential sips:straw Trial 2: Result: 8= enters airway/below vocal folds/no effort Comment: Cued cough and re-swallow after the swallow = somewhat effective in reducing amount of aspiration, but does not prevent aspiration. Esophageal screen - Retention in the lower esophagus w/ mild retrograde flow. Thin Liquid via single sip: straw: Result: 5= enters airways/contacts vocal folds/not ejected Comment: Cannot definitively rule out aspiration due to pt's body habitus. Braman Thick Liquid via single sip: straw: Result: 8= enters airway/below vocal folds/no effort Comment: Cued cough and re-swallow after the swallow = somewhat effective in reducing amount of aspiration, but does not prevent aspiration. Thin Liquid via single sip: straw Chin tuck: Result: 8= enters airway/below vocal folds/no effort Thin Liquid via single sip: straw, Cued cough and re-swallow immediately following the swallow: Result: 5= enters airways/contacts vocal folds/not ejected Comment: Cued cough and re-swallow after the swallow = somewhat effective in reducing amount of laryngeal penetration, but barium remained in the laryngeal vestibule after the swallow. Honey Thick Liquid via teaspoon: Comment: No PAS score due to inability for A-P transport. BOTTOM FILLER cleared this trial from his oral cavity w/ a toothette swab. Oral Phase Labial Seal: Escape beyond interlabial space; no extension beyond geraldo border Tongue Control During Bolus Hold: Posterior escape of greater than half of bolus Bolus Transport/Lingual Motion: Minimal to no tongue motion (Observed w/ pudding and honey thick by tsp) Pharyngeal Phase Initiation of Pharyngeal Swallow: Bolus head in pyriforms Soft Palate Elevation: Trace column of contrast/air between soft palate and pharyngeal wall Laryngeal Elevation: Partial superior movement thyroid cart/partial apprx aryt- epig petiole Anterior Hyoid Excursion: Partial anterior movement Epiglottic Movement: Complete inversion Laryngeal Vestibule Closure at Height of Swallow: Incomplete; narrow column of air/contrast in laryngeal vestibule Pharyngeal Stripping Wave: Present - diminished Pharyngoesophageal Segment Opening: Parital distension and partial duration; parital obstruction of flow Tongue Base Retraction: Wide column of contrast between tongue base & post. pharyngeal wall Pharyngeal Residue: Collection of residue within or on pharyngeal structures Esophageal Phase Esophageal Clearance: Esophageal retention w/ retrograde flow below pharyngoesophageal seg. Treatment Strategies Effects of treatment strategies attemped:: Chin tuck = not effective Cough and re-swallow after the swallow = somewhat effective Diagnosis/Impression Diagnosis: Severe oral dysphagia R13.11, Moderate pharyngeal dysphagia R13.13 Impression: The oral phase is primarily marked by... -Decreased bolus control w/ premature posterior loss of >1/2 of thin liquids to the pharynx prior to swallow onset most noticeable w/ sequential thin. -Severely impaired tongue motion for A-P transport w/ minimal movement w/ pudding and honey thick liquids by tsp. Minimal to no A-P transport of these tr ials. Liquid wash somewhat cleared pudding from oral cavity. BOTTOM FILLER removed honey thick liquids by tsp from FOM w/ a toothette swab. -Did not assess mastication due to BOTTOM FILLER concerns for HIGH choking risk due to difficulty w/ bolus manipulation of thicker viscosities during the MBSS. The pharyngeal phase is primarily marked by... -Delayed swallow onset. -Decreased pharyngeal motility due to decreased TB retraction, pharyngeal stripping wave, and UES opening/duration of opening. Mild-moderate pharyngeal residue of liquids increasing risk for aspiration after the swallow. -Decreased laryngeal elevation and anterior hyoid excursion resulting in decreased airway closure during the swallow w/ SILENT aspiration of thin and mildly/nectar thick liquids. Cough and re-swallow after the swallow was somewhat effective in decreasing amount of aspiration, but did not prevent aspiration from occurring consistently. The esophageal phase is primarily marked by... -Mild retention of sequential sips of thin liquids in the lower esophagus w/ retrograde flow remaining well below the UES. Recommendations Diet: Thin Liquids Comment: FREQUENT AND THOROUGH ORAL CARE, medications crushed/slurried in liquids Compensatory Strategies: Small Sips (Cough and re-swallow after sips), Slow Rate, Sitting upright and Remain sitting upright for 30 minutes after PO intake Supervision: Distant Supervision Recommend Repeat Modified Barium Swallow: TBD Need for Skilled Speech Therapy Services: Yes Comment: -Train the patient in use of strategies to decrease risk for aspiration and reflux aspiration. -Ongoing assessment of diet tolerance of recommended textures (full thin liquids). Would consider trials of purees via syringe w/ BOTTOM FILLER ONLY at BOTTOM FILLER's discretion for pleasure feeding. -Train the patient in oropharyngeal exercise program to improve lingual strength and ROM, pharyngeal motility, and airway closure (lingual resistance, lingual ROM/coordination, Myranda, Effortful, Philip). Education Completed: 1. Described result of evaluation., 2. Pt understands evaluation & agrees with goals and treatment plan., 4. Family/caregivers understand evaluation & agree w/ goals & tx plan. and 7. Pt requires further education on strategies & risks. Comment: BOTTOM FILLER discussed results of this MBSS w/ pt's nurse, , the patient, and Dr. Villeda. BOTTOM FILLER discussed hre recommendation to continue w/ thin liquids w/ use of safe swallow strategies w/ close monitoring of respiratory status. BOTTOM FILLER is not recommending NPO due to severe malnutrition and no current respiratory illness. Due to malnutrition and severe swallowing impairment making it difficult for him to consume adequate food/drink, BOTTOM FILLER did recommend the pt discuss consideration for tube feeding with his doctor. BOTTOM FILLER also educated the patient and his that the PEG tube would not decrease his risk for aspiration. All education was well received, and the patient continued this discussion w/ Dr. Villeda after the BOTTOM FILLER exited. Status Active ST Patient: Active Contact Information [facility] Speech Therapy:: Deloris Bean M.A. [facility]? Speech-Language Pathologist?? [facility] [address] [place] [address]? [email or web address]?? [phone]
[2024-07-30] MEDS: clonazePAM 0.5 MG Tablet PO (23:07)
[2024-07-30] MEDS: 0.9% Saline Lock 10 ML Syringe IV (23:07)
[2024-07-31] MEDS: Carbidopa/Levodopa 25/100 Tablet PO ×4 (02:44→18:19)
[2024-07-31 03:10] VITALS: BP 105/68; PULSE 84; RESP 16; TEMP 36.2; O2SAT 97
[2024-07-31 06:00] VITALS: BP 103/68; PULSE 86; RESP 17; TEMP 36.7; O2SAT 98
[2024-07-31 07:52] VITALS: O2SAT 96
[2024-07-31 09:35] VITALS: BP 146/90; PULSE 83; RESP 17; TEMP 36.9; O2SAT 93
[2024-07-31] MEDS: Enoxaparin 30 MG/0.3 ML Syringe SC (09:43)
[2024-07-31] MEDS: Zinc Sulfate 50 mg zinc (220 mg) ORAL capsule PO (09:44)
[2024-07-31] MEDS: Ascorbic Acid 500 MG Tablet 1000 MG PO (09:44)
[2024-07-31] MEDS: Baclofen 10 MG Tablet PO ×2 (09:45→22:31)
[2024-07-31] MEDS: NYSTATIN 500,000 UNIT/5 ML UDC 500000 UNIT PO ×4 (09:46→22:31)
[2024-07-31] MEDS: Amantadine 100 MG Capsule PO (09:46)
[2024-07-31] MEDS: Ensure Plus High Protein 120 ML LIQUID PO ×2 (09:46→15:04)
[2024-07-31] MEDS: Menthol/Lanolin/Calamine/Znox 113 GM Tube 1 APPLIC TOPICAL ×2 (09:47→22:30)
--- NOTE | 2024-07-31 12:14 | PCM.PN.HOSP ---
Subjective Subjective Seems to be doing okay today. Unfortunately he may need another PEG tube given his worsening p.o. intake Objective Data Objective Data Vital Signs: Vital Signs Temp Pulse Resp BP Pulse Ox O2 Del Method 98.4 F 83 17 146/90 H 93 Room Air 07/31/24 09:35 07/31/24 09:35 07/31/24 09:35 07/31/24 09:35 07/31/24 09:35 07/31/24 09:35 Oxygen Delivery Method Room Air Weight: 103 lb 2.821 oz Body Mass Index (BMI) 16.1 Intake & Output: Intake and Output for Last 24 Hours 07/30/24 07/31/24 08/01/24 03:59 03:59 03:59 Intake Total 2310 / 2310 820 / 820 100 / 100 Output Total 1900 / 1900 350 / 350 150 / 150 Balance 410 / 410 470 / 470 -50 / -50 Medical Nutrition Assessment Dietitian: Malnutrition Criteria Met Start: 07/29/24 14:14 Freq: Status: Active Protocol: Document 07/29/24 14:14 SB (Rec: 07/29/24 14:14 SB [id number]) Nutrition Malnutrition Evidence of Yes Malnutrition Exists Malnutrition (severe Chronic ): Evidenced By Suboptimal Energy Intake (Severe),Physical Changes ( Severe) Clinical Problem Chronic Disease or Condition Related Malnutrition Etiology severe protein calorie malnutrition related to Parkinson's disease resulting in inadequate oral intake Signs/Symptoms as evidenced by PO meeting <75% of estimated nutrition needs greater than 1 month and severe muscle wasting in clavicle, thighs, and calf. Status Active Problem Recommendation Dietitian Continue regular diet per ONCOLOGY CONSULTANT consistency/texture Recommendations/ recommendations. Changes Will increase 120ml EPHP TID with medpass to 4x daily. Discontinue siobhan BID with medpass and order orange siobhan BID with breakfast and dinner. Will monitor weight trends. If PO intake and weight continue to decline, recommend nutrition support. Lab / Micro Data 07/29/24 07:30 07/29/24 07:30 Physical Exam Narrative General: Alert, Oriented x3, Cooperative, No apparent distress HEENT: Atraumatic, PERRLA, EOMI, Normocephalic Oral: Moist Mucosa Neck: Supple, No JVD Lungs: Diminished, Normal air movement, No rhonchi, No wheeze, No rales Cardiovascular: Regular rate, Regular Rhythm, Normal S1, Normal S2, No murmurs Abdomen: Soft, Non Tender, Non-Distended, No Hepato-splenomegaly Extremities: No edema, Capillary Refill Less than 3 Seconds Skin: No rashes, No breakdown Musculoskeletal: No Tenderness to Palpation of Joints or Extremities Neurological: Baseline neurological function with generalized increased weakness Psych/Mental Status: Flat Assessment & Plan Assessment/Plan (1) Syncope: (2) Dysphagia: PLAN: Plan 1. Syncope with an elevated troponin/dysphagia/Parkinson's disease ? Echocardiogram with an EF of 60% and stage I diastolic dysfunction with no wall motion abnormality therefore elevated troponin is likely insignificant ? His Sinemet dosing can put him at significant risk for syncope especially if he is with a poor nutritional status ? His dysphagia is secondary to his Parkinson's disease, modified barium swallow was ordered and he can take thin liquids with small steps and distant supervision. Unclear if he will be able to maintain with just p.o. intake. Will plan to consult gastroenterology to evaluate for possible PEG tube placement early this week. Even if he is receiving tube feeds I would recommend continued speech therapy. Of note this recommendation for his diet was secondary to his malnutrition status. ? Will continue with his home Parkinson's medications ? PT/OT ? Will consult case management for discharge planning 2. Thrush ? Continue with nystatin DVT: Lovenox Charges/Coding Visit Charges Inpatient E&M: 68324 Subs Hosp L2
[2024-07-31] MEDS: Baclofen 10 MG Tablet 5 MG PO (15:03)
[2024-07-31 15:12] VITALS: BP 166/92; PULSE 89; RESP 17; TEMP 37; O2SAT 100
[2024-07-31 22:27] VITALS: BP 143/84; PULSE 101; RESP 17; TEMP 36.6; O2SAT 94
--- NOTE | 2024-07-31 22:27 | EX.PCM.CON.G ---
HPI Consult Data Date of Consult: 07/31/24 HPI Narrative Reason for Consultation: PEG tube placement HPI Narrative: KATHARINE WATTS, is a 73 M who presented to the ER for syncope. He has a past medical history of Parkinson's with severe esophageal dysphagia resulting in severe protein, nutrition status post PEG tube in the past. I was consulted to see him due to worsening esophageal dysphagia and progressive weight loss. His BMI is currently 16.2. [facility] Medical History Encounter for feeding tube placement Parkinson's disease History of Parkinson's disease Closed dislocation finger, proximal interphalangeal joint, traumatic Cellulitis Closed traumatic nondisplaced fracture of four ribs of right side Difficulty balancing when standing BPH (benign prostatic hyperplasia) HLD (hyperlipidemia) HTN (hypertension) DMII (diabetes mellitus, type 2) Cellulitis Parkinson disease Home Medications ?Medication ?Instructions ?Recorded ?Last Taken ?Type amantadine HCl 100 mg capsule 100 mg PO DAILY PD 11/16/20 07/23/22 History rasagiline 1 mg tablet 1 mg PO DAILY PARKINSONS 11/16/20 02/27/23 History carbidopa 25 mg-levodopa 100 mg 2 tab PO 5X/DAY Parkinson 02/27/23 02/27/23 History tablet baclofen 10 mg tablet 5 mg PO 1400 07/28/24 Unknown History baclofen 10 mg tablet 10 mg PO 0800 07/28/24 Unknown History baclofen 10 mg tablet 10 mg PO 2300 07/28/24 Unknown History carbidopa 25 mg-levodopa 100 mg 1 tab PO .COMPLEX 07/28/24 Unknown History tablet clonazepam 0.5 mg tablet 0.5 mg PO QHS 07/28/24 Unknown History Allergy/AdvReac Type Severity Reaction Status Date / Time Penicillins (PCN) Allergy Unknown Verified 07/28/24 15:55 Family History Father Diabetes Hypertension Hyperlipidemia TIA (transient ischemic attack) Mother Hypertension Thyroid disorder Social History household members: spouse current occupational status: retired 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 Smoking Status: Never smoker alcohol intake: never substance use type: does not use and former substance user Date of last use: 1974 ROS Constitutional Constitutional: Denies fatigue, fever(s), poor appetite, weight gain or weight loss Gastrointestinal Gastrointestinal: Denies belching, bloating, change in bowel habits, change in stool character, chewing difficulty, coffee ground emesis, constipation, cramping, diarrhea, dyspepsia, dysphagia, early satiety, excessive flatus, fecal incontinence, heartburn, hematemesis, hematochezia, hemorrhoids, loose stools, melena, nausea, odynophagia, rectal bleeding, tenesmus, vomiting or weight changes Physical Exam Const alert, oriented x3, no apparent distress and healthy appearing General Appearance: cooperative GI normal to inspection, nondistended, normoactive bowel sounds, soft to palpation, non-tender and non-distended Percussion: normal to percussion Rectal Exam: deferred Medical Records Data Medical Nutrition Assessment Dietitian: Malnutrition Criteria Met Start: 07/29/24 14:14 Freq: Status: Active Protocol: Document 07/29/24 14:14 SB (Rec: 07/29/24 14:14 SB [id number]) Nutrition Malnutrition Evidence of Yes Malnutrition Exists Malnutrition (severe Chronic ): Evidenced By Suboptimal Energy Intake (Severe),Physical Changes ( Severe) Clinical Problem Chronic Disease or Condition Related Malnutrition Etiology severe protein calorie malnutrition related to Parkinson's disease resulting in inadequate oral intake Signs/Symptoms as evidenced by PO meeting <75% of estimated nutrition needs greater than 1 month and severe muscle wasting in clavicle, thighs, and calf. Status Active Problem Recommendation Dietitian Continue regular diet per FLEET DRIVER consistency/texture Recommendations/ recommendations. Changes Will increase 120ml EPHP TID with medpass to 4x daily. Discontinue siobhan BID with medpass and order orange siobhan BID with breakfast and dinner. Will monitor weight trends. If PO intake and weight continue to decline, recommend nutrition support. Lab / Micro Data 07/29/24 07:30 07/29/24 07:30 Assessment & Plan Assessment/Plan (1) Dysphagia: (2) Failure to thrive: (3) Parkinson disease: QUALIFIERS: Dyskinesia presence: with dyskinesia Fluctuating manifestations: unspecified whether manifestations fluctuate Qualified Code(s): G20.B1 - Parkinson's disease with dyskinesia, without mention of fluctuations (4) Severe protein-calorie malnutrition: PLAN: 73-year-old gentleman with Parkinson disease, severe protein, nutrition, weight loss and severe oropharyngeal dysphagia secondary to Parkinson disease. I agree that he does need supplemental feeding if he has GI tract. The patient can have percutaneous endoscopic gastrostomy tube placement on 08/02/2024. Keep n.p.o. past midnight on 08/01/2024. Charges/Coding Visit Charges Inpatient E&M: 60570 Init Hosp L3
[2024-07-31] MEDS: clonazePAM 0.5 MG Tablet PO (22:41)
[2024-08-01] MEDS: Carbidopa/Levodopa 25/100 Tablet PO ×6 (01:54→22:50)
[2024-08-01 02:04] VITALS: BP 118/77; PULSE 108; RESP 18; TEMP 36.6; O2SAT 94
[2024-08-01 05:25] VITALS: BP 137/87; PULSE 96; RESP 20; TEMP 36.5; O2SAT 96
[2024-08-01 07:03] LABS: Absolute Lymphocyte Count 0.37 X10^3/uL (0.83-4.51); Absolute Neutrophil Count 11.1 X10^3/uL (2.0-7.7); Basophil# 0.03 X10^3/uL; Basophil% 0.2 % (0-1); Hematocrit 42.9 % (40-54); Hemoglobin 14.5 g/dL (13.0-16.5); Lymphocyte # 0.37 X10^3/ul (0.83-4.51); Mean Corp Hgb Conc 33.8 g/dL (32-36); Mean Corpuscular Hgb 30.7 pg (27.0-32.0); Mean Corpuscular Volume 90.7 fL (80-94); Monocyte# 0.95 X10^3/uL; Monocyte% 7.6 % (0-10); NRBC Flagged by Analyzer 0 % (0-5); Neutrophil # 11.05 X10^3/uL (2.7-7.7); Neutrophil % 88.8 % (47-70); POSITIVE DIFFERENTIAL YES; Platelet Count 184 K/mm3 (150-450); RBC Distribution Width CV 13.4 % (11.6-14.6); RBC Distribution Width SD 45.5 fl (35.1-43.9); Red Blood Count 4.73 M/mm3 (4.6-6.2); White Blood Count 12.5 K/mm3 (4.4-11.0)
[2024-08-01 07:33] LABS: Anion Gap 13 (5-15); BUN 16 mg/dL (4-19); BUN/Creat Ratio 17.2 RATIO (10-20); Calcium,Total 9.2 mg/dL (7.6-11.0); Carbon Dioxide 24.2 mmol/L (21.0-32.0); Chloride 99 mmol/L (98-108); Creatinine, Serum 0.94 mg/dL (0.70-1.20); EST Glomerular Filtration Rate 85 (>60); Estimated Creatinine Clearance 44.95 ml/min (50-250); Glucose 81 mg/dL (70-99); Potassium 3.8 mmol/L (3.3-5.1); Sodium Level 136 mmol/L (133-145)
[2024-08-01] MEDS: Baclofen 10 MG Tablet PO ×2 (08:52→23:07)
[2024-08-01 09:09] VITALS: BP 150/92; PULSE 78; RESP 15; TEMP 36.6; O2SAT 98
[2024-08-01] MEDS: NYSTATIN 500,000 UNIT/5 ML UDC 500000 UNIT PO ×4 (10:33→22:50)
[2024-08-01] MEDS: Enoxaparin 30 MG/0.3 ML Syringe SC (10:33)
[2024-08-01] MEDS: Menthol/Lanolin/Calamine/Znox 113 GM Tube 1 APPLIC TOPICAL ×2 (10:33→22:50)
--- NOTE | 2024-08-01 11:47 | PN.HOSP_ITS ---
Subjective Subjective Seen by GI last evening, will plan for PEG tube placement tomorrow morning for supplemental feedings given his severe protein calorie malnutrition Objective Data Objective Data Vital Signs: Vital Signs Temp Pulse Resp BP Pulse Ox O2 Del Method 97.9 F 78 15 150/92 H 98 Room Air 08/01/24 09:09 08/01/24 09:09 08/01/24 09:09 08/01/24 09:09 08/01/24 09:09 08/01/24 09:09 Oxygen Delivery Method Room Air Weight: 103 lb 2.821 oz Body Mass Index (BMI) 16.1 Intake & Output: Intake and Output for Last 24 Hours 07/31/24 08/01/24 08/02/24 03:59 03:59 03:59 Intake Total 820 / 820 400 / 400 120 / 120 Output Total 350 / 350 500 / 500 Balance 470 / 470 -100 / -100 120 / 120 Medical Nutrition Assessment Dietitian: Malnutrition Criteria Met Start: 07/29/24 14:14 Freq: Status: Active Protocol: Document 07/29/24 14:14 SB (Rec: 07/29/24 14:14 SB [id number]) Nutrition Malnutrition Evidence of Yes Malnutrition Exists Malnutrition (severe Chronic ): Evidenced By Suboptimal Energy Intake (Severe),Physical Changes ( Severe) Clinical Problem Chronic Disease or Condition Related Malnutrition Etiology severe protein calorie malnutrition related to Parkinson's disease resulting in inadequate oral intake Signs/Symptoms as evidenced by PO meeting <75% of estimated nutrition needs greater than 1 month and severe muscle wasting in clavicle, thighs, and calf. Status Active Problem Recommendation Dietitian Continue regular diet per GROCERY DEPARTMENT MANAGER consistency/texture Recommendations/ recommendations. Changes Will increase 120ml EPHP TID with medpass to 4x daily. Discontinue siobhan BID with medpass and order orange siobhan BID with breakfast and dinner. Will monitor weight trends. If PO intake and weight continue to decline, recommend nutrition support. Lab / Micro Data 08/01/24 06:07 08/01/24 06:07 Labs: Laboratory Results - last 24 hr 08/01/24 06:07: WBC 12.5 H, RBC 4.73, Hgb 14.5, Hct 42.9, MCV 90.7, MCH 30.7, MCHC 33.8, RDW Std Deviation 45.5 H, RDW Coeff of Lexii 13.4, Plt Count 184, MPV 12.0, Immature Gran % (Auto) 0.400, Neut % (Auto) 88.8 H, Lymph % (Auto) 3.0 L, [place] % (Auto) 7.6, Eos % (Auto) 0.0, Baso % (Auto) 0.2, Absolute Neuts (auto) 11.1 H, Absolute Lymphs (auto) 0.37 L, Nucleated RBC % 0, Sodium 136, Potassium 3.8, Chloride 99, Carbon Dioxide 24.2, Anion Gap 13, BUN 16, Creatinine 0.94, E stim Creat Clear Calc 44.95 L, Est GFR (MDRD) Non-Af 85, BUN/Creatinine Ratio 17.2, Glucose 81, Calcium 9.2 Physical Exam Narrative General: Alert, Oriented x3, Cooperative, No apparent distress, severe muscle wasting HEENT: Atraumatic, PERRLA, EOMI, Normocephalic Oral: Moist Mucosa, thrush Neck: Supple, No JVD Lungs: Diminished, Normal air movement, No rhonchi, No wheeze, No rales Cardiovascular: Regular rate, Regular Rhythm, Normal S1, Normal S2, No murmurs Abdomen: Soft, Non Tender, Non-Distended, No Hepato-splenomegaly Extremities: No edema, Capillary Refill Less than 3 Seconds Skin: No rashes, No breakdown Musculoskeletal: No Tenderness to Palpation of Joints or Extremities Neurological: Baseline neurological function with generalized increased weakness Psych/Mental Status: Flat Assessment & Plan Assessment/Plan (1) Syncope: (2) Dysphagia: PLAN: Plan 1. Syncope with an elevated troponin/dysphagia/Parkinson's disease ? Echocardiogram with an EF of 60% and stage I diastolic dysfunction with no wall motion abnormality therefore elevated troponin is likely insignificant ? His Sinemet dosing can put him at significant risk for syncope especially if he is with a poor nutritional status ? Will plan for PEG tube tomorrow, will make him n.p.o. after midnight ? Will continue with his home Parkinson's medications ? PT/OT ? Will consult case management for discharge planning 2. Thrush ? Continue with nystatin DVT: Lovenox Charges/Coding Visit Charges Inpatient E&M: 21601 Subs Hosp L2
[2024-08-01] MEDS: Amantadine 100 MG Capsule PO (14:19)
[2024-08-01] MEDS: Baclofen 10 MG Tablet 5 MG PO (14:19)
[2024-08-01 14:46] VITALS: BP 128/83; PULSE 88; RESP 17; TEMP 36.6; O2SAT 92
[2024-08-01] MEDS: clonazePAM 0.5 MG Tablet PO (22:50)
[2024-08-01 23:00] VITALS: BP 138/77; PULSE 94; RESP 16; TEMP 36.6; O2SAT 100
[2024-08-01] MEDS: 0.9% Saline Lock 10 ML Syringe IV (23:11)
[2024-08-02] VITALS (12 sets, daily range): BP systolic 132–174; BP diastolic 88–104; PULSE 93–105; RESP 14–20; TEMP 36.4–38; O2SAT 88–96; BMI 16.1
[2024-08-02 04:54] LABS: Absolute Lymphocyte Count 0.55 X10^3/uL (0.83-4.51); Absolute Neutrophil Count 7.4 X10^3/uL (2.0-7.7); Basophil# 0.03 X10^3/uL; Basophil% 0.3 % (0-1); Hemoglobin 14.5 g/dL (13.0-16.5); Lymphocyte # 0.55 X10^3/ul (0.83-4.51); Lymphocyte % 6.3 % (19-41); Mean Corp Hgb Conc 34.5 g/dL (32-36); Mean Corpuscular Hgb 31.6 pg (27.0-32.0); Mean Corpuscular Volume 91.5 fL (80-94); Mean Platelet Vol. 12.1 fl (6.2-12.0); Monocyte# 0.74 X10^3/uL; Monocyte% 8.5 % (0-10); NRBC Flagged by Analyzer 0 % (0-5); Neutrophil # 7.39 X10^3/uL (2.7-7.7); Neutrophil % 84.8 % (47-70); POSITIVE DIFFERENTIAL YES; Platelet Count 196 K/mm3 (150-450); RBC Distribution Width CV 13.5 % (11.6-14.6); RBC Distribution Width SD 45.8 fl (35.1-43.9); Red Blood Count 4.59 M/mm3 (4.6-6.2); White Blood Count 8.7 K/mm3 (4.4-11.0)
[2024-08-02 05:30] LABS: Anion Gap 13 (5-15); BUN 25 mg/dL (4-19); BUN/Creat Ratio 25.9 RATIO (10-20); Calcium,Total 9.3 mg/dL (7.6-11.0); Carbon Dioxide 23.5 mmol/L (21.0-32.0); Chloride 99 mmol/L (98-108); Creatinine, Serum 0.96 mg/dL (0.70-1.20); EST Glomerular Filtration Rate 82 (>60); Estimated Creatinine Clearance 44.01 ml/min (50-250); Glucose 97 mg/dL (70-99); Sodium Level 135 mmol/L (133-145)
[2024-08-02 05:31] LABS: Hemoglobin A1c 5.5 % (<=5.6)
--- NOTE | 2024-08-02 05:55 | EKG12_ITS ---
Test Reason : PRE-OP Blood Pressure : */* mmHG Vent. Rate : 93 BPM Atrial Rate : 93 BPM P-R Int : 158 ms QRS Dur : 90 ms QT Int : 328 ms P-R-T Axes : 77 35 82 degrees QTcB Int : 407 ms Normal sinus rhythm Septal infarct , age undetermined Abnormal ECG Confirmed by ISIS GALEAS, MONROE ([id number]), editor house organ RACHEL HEART ([id number]) on 08/03/2024 8:25:23 AM Referred By: LINDA Confirmed By: MONROE MARINELLI MD
[2024-08-02] MEDS: Acetaminophen 325 MG Tablet 650 MG PO (09:12)
[2024-08-02] MEDS: NYSTATIN 500,000 UNIT/5 ML UDC 500000 UNIT PO (09:12)
[2024-08-02] MEDS: Carbidopa/Levodopa 25/100 Tablet PO (09:13)
[2024-08-02] MEDS: Baclofen 10 MG Tablet PO (09:13)
[2024-08-02] MEDS: Menthol/Lanolin/Calamine/Znox 113 GM Tube 1 APPLIC TOPICAL ×2 (09:14→20:18)
--- NOTE | 2024-08-02 10:15 | PCM.PN.HOSP ---
Subjective Subjective No issues overnight, awaiting PEG tube placement this afternoon Objective Data Objective Data Vital Signs: Vital Signs Temp Pulse Resp BP Pulse Ox O2 Del Method O2 Flow Rate 100.4 F H 93 18 151/104 H 92 Nasal Cannula 2 08/02/24 08:48 08/02/24 08:48 08/02/24 08:48 08/02/24 08:48 08/02/24 08:53 08/02/24 09:26 08/02/24 09:26 Oxygen Flow Rate (L/min) 2 Oxygen Delivery Method Nasal Cannula Weight: 103 lb 2.821 oz Body Mass Index (BMI) 16.1 Intake & Output: Intake and Output for Last 24 Hours 08/01/24 08/02/24 08/03/24 03:59 03:59 03:59 Intake Total 400 / 400 230 / 230 Output Total 500 / 500 Balance -100 / -100 230 / 230 Medical Nutrition Assessment Dietitian: Malnutrition Criteria Met Start: 07/29/24 14:14 Freq: Status: Active Protocol: Document 07/29/24 14:14 SB (Rec: 07/29/24 14:14 SB [id number]) Nutrition Malnutrition Evidence of Yes Malnutrition Exists Malnutrition (severe Chronic ): Evidenced By Suboptimal Energy Intake (Severe),Physical Changes ( Severe) Clinical Problem Chronic Disease or Condition Related Malnutrition Etiology severe protein calorie malnutrition related to Parkinson's disease resulting in inadequate oral intake Signs/Symptoms as evidenced by PO meeting <75% of estimated nutrition needs greater than 1 month and severe muscle wasting in clavicle, thighs, and calf. 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 Changes Will increase 120ml EPHP TID with medpass to 4x daily. Discontinue siobhan BID with medpass and order orange siobhan BID with breakfast and dinner. Will monitor weight trends. If PO intake and weight continue to decline, recommend nutrition support. Lab / Micro Data 08/02/24 04:43 08/02/24 04:43 Labs: Laboratory Results - last 24 hr 08/02/24 04:43: WBC 8.7, RBC 4.59 L, Hgb 14.5, Hct 42.0, MCV 91.5, MCH 31.6, MCHC 34.5, RDW Std Deviation 45.8 H, RDW Coeff of Lexii 13.5, Plt Count 196, MPV 12.1 H, Immature Gran % (Auto) 0.100, Neut % (Auto) 84.8 H, Lymph % (Auto) 6.3 L, [place] % (Auto) 8.5, Eos % (Auto) 0.0, Baso % (Auto) 0.3, Absolute Neuts (auto) 7.4, Absolute Lymphs (auto) 0.55 L, Nucleated RBC % 0, Sodium 135, Potassium 4.0, Chloride 99, Carbon Dioxide 23.5, Anion Gap 13, BUN 25 H, Creatinine 0.96, Estim Creat Clear Calc 44.01 L, Est GFR (MDRD) Non-Af 82, BUN/Creatinine Ratio 25.9 H, Glucose 97, Hemoglobin A1c 5.5, Calcium 9.3 Physical Exam Narrative General: Alert, Oriented x3, Cooperative, No apparent distress, severe muscle wasting HEENT: Atraumatic, PERRLA, EOMI, Normocephalic Oral: Moist Mucosa, thrush Neck: Supple, No JVD Lungs: Diminished, Normal air movement, No rhonchi, No wheeze, No rales Cardiovascular: Regular rate, Regular Rhythm, Normal S1, Normal S2, No murmurs Abdomen: Soft, Non Tender, Non-Distended, No Hepato-splenomegaly Extremities: No edema, Capillary Refill Less than 3 Seconds Skin: No rashes, No breakdown Musculoskeletal: No Tenderness to Palpation of Joints or Extremities Neurological: Baseline neurological function with generalized increased weakness Psych/Mental Status: Flat Assessment & Plan Assessment/Plan (1) Syncope: (2) Dysphagia: PLAN: Plan 1. Syncope with an elevated troponin/dysphagia/Parkinson's disease ? Echocardiogram with an EF of 60% and stage I diastolic dysfunction with no wall motion abnormality therefore elevated troponin is likely insignificant ? His Sinemet dosing can put him at significant risk for syncope especially if he is with a poor nutritional status ?PEG tube placement today, nutrition recommends Jevity 1.5 with a goal rate of 40 mL/h with 120 mL water flushes every 4 hours. Will start the rate of 10 mL/h ? Will continue with his home Parkinson's medications ? PT/OT ? Will consult case management for discharge planning 2. Thrush ? Continue with nystatin DVT: Lovenox Charges/Coding Visit Charges Inpatient E&M: 04463 Subs Hosp L2
--- NOTE | 2024-08-02 11:40 | WOUNDNOTE ---
wound photo: buttocks
--- NOTE | 2024-08-02 11:41 | WOUNDNOTE ---
Redness noted to buttocks. skin blanches. no open areas noted. patient getting Calmoseptine for protection. will monitor.
[2024-08-02] MEDS: Lactated Ringers 1,000 ML 15 ML IV (16:15)
--- NOTE | 2024-08-02 16:30 | PRE.ANES_ITS ---
ASA Classification* ASA Classification ASA Classification: 3 Assessment & Plan Anesthesia* Anesthesia Assessment Anesthesia Assessment: Discussed sedation and/or anesthesia options, risks, benefits, and alternatives with patient/parents/legal guardian/POA. Questions invited. The patient/parents/legal guardian/POA seems to understand and agrees to proceed with anesthesia plan. Reviewed the physical assessment, medical history, allergy history and patient home medications list prior to surgery/procedure/anesthetic and documented any changes. Performed airway and anesthesia risk assessments. Anesthesia Type Anesthesia Type: MAC History Source History Obtained from:: Patient and Chart Anesthesia Focused Assessment* Temperature: 98.8 F Pulse Rate: 94 Blood Pressure: 132/88 Respiratory Rate: 20 Pulse Ox: 92 Oxygen Delivery Method: Nasal Cannula Oxygen Flow Rate (L/min): 2 Airway Assessment Mouth opens: >3 cm Mallampati Score: IV Teeth Condition: Intact Neck Range of motion (ROM): Limited ROM (Somewhat decreased extension) Labs Anesthesia Preop lab: CBC WBC 8.7 K/mm3 (4.4-11.0) 08/02/24 04:43 08/02/24 RBC 4.59 M/mm3 (4.6-6.2) L 08/02/24 04:43 08/02/24 Hgb 14.5 g/dL (13.0-16.5) 08/02/24 04:43 08/02/24 Hct 42.0 % (40-54) 08/02/24 04:43 08/02/24 Plt Count 196 K/mm3 (150-450) 08/02/24 04:43 08/02/24 CHEMISTRY Potassium 4.0 mmol/L (3.3-5.1) 08/02/24 04:43 08/02/24 Sodium 135 mmol/L (133-145) 08/02/24 04:43 08/02/24 Magnesium 1.9 mg/dL (1.5-2.2) 07/29/24 07:30 07/29/24 Phosphorus 2.6 mg/dL (2.7-4.5) L 07/29/24 07:30 07/29/24 BUN 25 mg/dL (4-19) H 08/02/24 04:43 08/02/24 Creatinine 0.96 mg/dL (0.70-1.20) 08/02/24 04:43 08/02/24 Glucose 97 mg/dL (70-99) 08/02/24 04:43 08/02/24 POC Glucose 97 mg/dL (74-106) 01/31/23 21:25 01/31/23 TSH 2.740 uIU/mL (0.300-4.200) 07/29/24 07:30 07/18 04/13 COAG PT 15.9 SECONDS (11.7-14.9) H 07/28/24 18:04 07/18 03/13 Pre-Assessment Diagnosis/Proposed Procedure Planned Operative Procedure(s): Esophagogastroduodenoscopy with percutaneous endoscopic gastrostomy tube placement. 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 When Was Last Pacemaker Check QUESTION #4 FULL TEXT: You/Your Family Experience fever (hyperthermia) with Anesthesia Last Oral Intake Last Oral intake: Last Oral Intake NPO since 09:00 08/02/24 15:36 Meds taken in AM with sips of Yes 08/02/24 15:36 water? Meds patient instructed to baclofen, sinmet, tylenol, 08/02/24 15:36 take am of surgery azilect Any additional information?: Yes Meds taken in AM with sips of water?: Yes PONV PONV - professional bass fisher: PONV - professional bass fisher Female HX of Motion Sickness HX of N/V After Surgery Non-Smoker Duration of Surgery greater than 60 minutes Number of Risk Factors PONV Score Height & Weight Height & Weight: Anesthesia: Height & Weight Height 5 ft 7 in 08/02/24 15:36 Weight: 46.8 kg 08/02/24 15:36 Body Mass Index (BMI) 16.1 08/02/24 15:36 Respiratory Assessment Respiratory Assessment - professional bass fisher: Respiratory Tract Infection Hx - professional bass fisher Hx Respiratory Tract Infection No 08/02/24 03:05 STOP Sleep Apnea STOP Sleep Apnea - professional bass fisher: STOP Sleep Apnea - professional bass fisher Hx Hypertension No 08/02/24 14:45 Hx Sleep Apnea No 07/28/24 23:26 CPAP No 02/27/23 13:55 BIPAP No 02/27/23 13:55 Do you snore loudly (louder No 07/28/24 23:26 than talking or can be heard Do you often feel tired/ Yes 07/28/24 23:26 fatigued/ sleepy during daytime? Has anyone observed you stop No 07/28/24 23:26 breathing during sleep? STOP Results Negative 07/28/24 23:26 QUESTION #5 FULL TEXT : Do you snore loudly (louder than talking or can be heard through closed doors)? 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 Specify any problems Hx of Preganancy in last 3 N/A 07/28/24 23:26 Months Nurse Filling Out Transfusion JLAMP 07/28/24 23:26 & Questions: Date: 07/28/24 07/28/24 23:26 Time: 23:27 07/28/24 23:26 Patient unable to answer at this time (ie. confused, unrespo /Reproduction History /Reproductive History - professional bass fisher: /Reproductive Hx- professional bass fisher Hx Now No 08/02/24 03:05 Gestational Age (in weeks): EDC: Hx Hx Para Hx Section SAB No 08/02/24 03:05 Active Medications Active Medications: Current Medications Generic Name Dose Route Start Last Admin Trade Name Freq PRN Reason Stop Dose Admin Acetaminophen 650 mg 07/28/24 23:45 08/02/24 09:12 Acetaminophen 325 Mg Tablet PO 650 mg Q6H PRN PRN Administration Pain 1-10 Or Fever >100.7 Albuterol Sulfate 2.5 mg 07/28/24 23:45 Albuterol 2.5 Mg/3 Ml Vial.Neb. INHALATION Q2H PRN PRN SOB &/OR WHEEZING Amantadine HCl 100 mg 08/01/24 14:00 08/02/24 10:13 Amantadine 100 Mg Capsule PO Not Given 1400 [facility] Ascorbic Acid 1,000 mg 07/29/24 08:00 08/02/24 09:12 Ascorbic Acid 500 Mg Tablet PO Not Given BIDCM [facility] Baclofen 5 mg 07/29/24 14:00 08/02/24 10:13 Baclofen 10 Mg Tablet PO Not Given 1400 [facility] Baclofen 10 mg 07/29/24 23:00 08/01/24 23:07 Baclofen 10 Mg Tablet PO 10 mg 2300 [facility] Administration Baclofen 10 mg 07/29/24 08:00 08/02/24 09:13 Baclofen 10 Mg Tablet PO 10 mg 0800 [facility] Administration Calamine/Phenol 1 applic 07/29/24 10:00 08/02/24 09:14 Menthol/Lanolin/Calamine/Znox 113 Gm Tube TOPICAL 1 applic BID [facility] Administration Protocol Carbidopa/Levodopa 1 tablet 07/29/24 02:30 08/02/24 02:54 Carbidopa/Levodopa 25/100 Tablet PO Not Given 0230 [facility] Carbidopa/Levodopa 2 tablet 08/01/24 08:00 08/02/24 10:14 Carbidopa/Levodopa 25/100 Tablet PO Not Given 0800,1100,1400,1700,2000 [facility] Clonazepam 0.5 mg 07/28/24 23:45 08/01/24 22:50 Clonazepam 0.5 Mg Tablet PO 0.5 mg QHS [facility] Administration Enoxaparin Sodium 30 mg 07/29/24 10:00 08/02/24 09:11 Enoxaparin 30 Mg/0.3 Ml Syringe SC Not Given DAILY [facility] Guaifenesin 20 ml 07/28/24 23:45 Guaifenesin 10 Ml Udc (200mg/10ml) PO Q4H PRN PRN COUGH Hydralazine HCl 10 mg 07/29/24 09:30 Hydralazine 20 Mg/Ml Vial IV Q4H PRN PRN SBP GREATER THAN 180 Protocol Lactated Ringer's 1,000 mls @ 15 mls/hr 08/02/24 16:15 08/02/24 16:15 IV 15 mls/hr .Q48H [facility] Administration Nutritional Formula (Lactose Free) 120 ml 07/29/24 18:00 08/02/24 10:13 Ensure Plus High Protein 120 Ml Liquid PO Not Given 4X/DAY [facility] Nystatin 500,000 unit 07/30/24 10:00 08/02/24 10:13 Nystatin 500,000 Unit/5 Ml Udc PO Not Given 4X/DAY [facility] Ondansetron HCl 4 mg 07/28/24 23:45 Ondansetron 4 Mg/2 Ml Vial IV Q8H PRN PRN NAUSEA/VOMITING Rasagiline 1 mg 08/01/24 08:00 08/02/24 09:13 Rasagiline Mesylate 1 Mg Tablet PO 1 mg 0800 [facility] Administration Senna/Docusate Sodium 2 tablet 07/28/24 23:45 Senna/Docusate Sodium 1 Tablet PO BID PRN PRN Constipation Sodium Chloride 10 - 40 ml 07/28/24 23:18 08/01/24 23:11 0.9% Saline Lock 10 Ml Syringe IV 10 ml UD PRN Administration SALINE FLUSH Zinc Sulfate 50 mg 07/29/24 08:00 08/02/24 09:11 Zinc Sulfate 50 Mg Zinc (220 Mg) Oral Capsule PO Not Given 0800,1600,2300 [facility] PFSH Medical History Encounter for feeding tube placement Parkinson's disease History of Parkinson's disease Closed dislocation finger, proximal interphalangeal joint, traumatic Cellulitis Closed traumatic nondisplaced fracture of four ribs of right side Difficulty balancing when standing BPH (benign prostatic hyperplasia) HLD (hyperlipidemia) HTN (hypertension) DMII (diabetes mellitus, type 2) Cellulitis Parkinson disease Home Medications ?Medication ?Instructions ?Recorded ?Last Taken ?Type amantadine HCl 100 mg capsule 100 mg PO DAILY PD 11/1607/23/22 History rasagiline 1 mg tablet 1 mg PO DAILY [facility] 02/27/23 History carbidopa 25 mg-levodopa 100 mg 2 tab PO 5X/DAY [place] son 02/27/23 02/27/23 History tablet baclofen 10 mg tablet 5 mg PO 1400 07/28/24 Unknow n History baclofen 10 mg tablet 10 mg PO 0800 07/28/24 Unkno wn History baclofen 10 mg tablet 10 mg PO 2300 07/28/24 Unkno wn History carbidopa 25 mg-levodopa 100 mg 1 tab PO .COMPLEX 07/18 03/13 Unknown History tablet clonazepam 0.5 mg tablet 0.5 mg PO QHS 07/28/24 Unkno wn History Allergy/AdvReac Type Severity Reaction Status Date / Time Penicillins (PCN) Allergy Unknown Verified 07/28/24 15:55 Family History Father Diabetes Hypertension Hyperlipidemia TIA (transient ischemic attack) Mother Hypertension Thyroid disorder Social History household members: spouse current occupational status: retired 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
--- NOTE | 2024-08-02 17:27 | PCM.PN.BLA ---
Progress Note Patient has npo for egd today. Physical Exam Narrative General: Alert, Oriented x3, Cooperative, No apparent distress, severe muscle wasting HEENT: Atraumatic, PERRLA, EOMI, Normocephalic Oral: Moist Mucosa, thrush Neck: Supple, No JVD Lungs: Diminished, Normal air movement, No rhonchi, No wheeze, No rales Cardiovascular: Regular rate, Regular Rhythm, Normal S1, Normal S2, No murmurs Abdomen: Soft, Non Tender, Non-Distended, No Hepato-splenomegaly Extremities: No edema, Capillary Refill Less than 3 Seconds Skin: No rashes, No breakdown Musculoskeletal: No Tenderness to Palpation of Joints or Extremities Neurological: Baseline neurological function with generalized increased weakness Psych/Mental Status: Flat Assessment & Plan Assessment/Plan (1) Dysphagia: (2) Failure to thrive: (3) Parkinson disease: QUALIFIERS: Dyskinesia presence: with dyskinesia Fluctuating manifestations: unspecified whether manifestations fluctuate Qualified Code(s): G20.B1 - Parkinson's disease with dyskinesia, without mention of fluctuations (4) Severe protein-calorie malnutrition: PLAN: 73-year-old gentleman with Parkinson disease, severe protein, nutrition, weight loss and severe oropharyngeal dysphagia secondary to Parkinson disease. I agree that he does need supplemental feeding if he has GI tract. The patient can have percutaneous endoscopic gastrostomy tube placement on 08/02/2024. Keep n.p.o. past midnight on 08/01/2024. PLAN: Plan 08/02/24- Patient will undergo EGD with Peg placement today. Visit Charges Inpatient E&M: 93038 [facility] L3
[2024-08-02] MEDS: levoFLOXacin IV 500 MG/100 ML BAG 100 MG IV (17:50)
--- NOTE | 2024-08-02 18:28 | PCM.POST.ANE ---
Anesthesia: Postop Eval I Current Vital Signs Temperature: 98.6 F Pulse Rate: 104 Blood Pressure: 155/102 Respiratory Rate: 18 Pulse Ox: 93 Oxygen Delivery Method: Nasal Cannula Oxygen Flow Rate (L/min): 2 Assessment Airway patent: Yes Spontaneous unlabored respirations: Yes Mental status: Asleep nausea: No Vomiting: No Anesthesia Complication: No Fluid Hydration Crystalloid volume administer (ml): 200 Total IV fluid infused: 200 Progress Note Anesthesia document: Postop Eval 1 completed: Yes
--- NOTE | 2024-08-02 18:36 | OP.EGD_ITS ---
Patient Name: Casey Larsen Procedure Date: 08/02/2024 5:33 PM Date of : 1950 Age: 73 Procedure: Upper GI endoscopy Indications: Dysphagia Providers: Americo Chatman DO Medicines: Monitored Anesthesia Care Patient Profile: This is a 73 year old male. Refer to note in patient chart for documentation of history and physical. Patient has symptoms of dysphagia with both liquids and solids. Complications: No immediate complications. Procedure: Pre-Anesthesia Assessment: - Prior to the procedure, a History and Physical was performed, and patient medications and allergies were reviewed. The patient is competent. The risks and benefits of the procedure and the sedation options and risks were discussed with the patient. All questions were answered and informed consent was obtained. Patient identification and proposed procedure were verified by the physician in the pre-procedure area. Mental Status Examination: alert and oriented. Airway Examination: normal oropharyngeal airway and neck mobility. Respiratory Examination: clear to auscultation. CV Examination: normal. Prophylactic Antibiotics: The patient does not require prophylactic antibiotics. Prior Anticoagulants: The patient has taken no anticoagulant or antiplatelet agents. ASA Grade Assessment: II - A patient with mild systemic disease. After reviewing the risks and benefits, the patient was deemed in satisfactory condition to undergo the procedure. The anesthesia plan was to use monitored anesthesia care (MAC). Immediately prior to administration of medications, the patient was re-assessed for adequacy to receive sedatives. The heart rate, respiratory rate, oxygen saturations, blood pressure, adequacy of pulmonary ventilation, and response to care were monitored throughout the procedure. The physical status of the patient was re-assessed after the procedure. After obtaining informed consent, the endoscope was passed under direct vision. Throughout the procedure, the patient's blood pressure, pulse, and oxygen saturations were monitored continuously. The gastroscope was introduced through the mouth, and advanced to the second part of duodenum. The upper GI endoscopy was accomplished without difficulty. The patient tolerated the procedure well. Scope In: 5:57:29 PM Scope Out: 6:17:54 PM Total Procedure Duration Time 0 hours 20 minutes 25 seconds Findings: No endoscopic abnormality was evident in the esophagus to explain the patient's complaint of dysphagia. Diffuse moderately erythematous mucosa without bleeding was found in the entire examined stomach. The patient was placed in the supine position for PEG placement. The stomach was insufflated to appose gastric and abdominal gallegos. A site was located in the cardia with good transillumination for placement. The abdominal wall was marked and prepped in a sterile manner. The area was anesthetized with 1 mL of 0.5% lidocaine. The trocar needle was introduced through the abdominal wall and into the stomach under direct endoscopic view. A snare was introduced through the endoscope and opened in the gastric lumen. The guide wire was passed through the trocar and into the open snare. The snare was closed around the guide wire. The endoscope and snare were removed, pulling the wire out through the mouth. A skin incision was made at the site of needle insertion. The endoscopically removable 20 Fr EndoVive Safety gastrostomy tube was lubricated. The G-tube was tied to the guide wire and pulled through the mouth and into the stomach. The trocar needle was removed, and the gastrostomy tube was pulled out from the stomach through the skin. The external bumper was attached to the gastrostomy tube, and the tube was cut to remove the guide wire. The final position of the gastrostomy tube was confirmed by relook endoscopy, and skin marking noted to be 4 cm at the external bumper. The final tension and compression of the abdominal wall by the PEG tube and external bumper were checked and revealed that the bumper was loose and lightly touching the skin. The feeding tube was capped, and the tube site cleaned and dressed. No gross lesions were noted in the entire examined duodenum. Impression: - No endoscopic esophageal abnormality to explain patient's dysphagia. - Erythematous mucosa in the stomach. - No gross lesions in the entire examined duodenum. - An endoscopically removable PEG placement was successfully completed. - No specimens collected. Recommendation: - [facility]. - Please follow the post-PEG recommendations. - Continue present medications. Procedure Code(s): --- Professional --- 34049, Esophagogastroduodenoscopy, flexible, transoral; with directed placement of percutaneous gastrostomy tube CPT copyright 2021 [employer]. All rights reserved. The codes documented in this report are preliminary and upon grease and tallow pumper review may be revised to meet current compliance requirements. Americo Chatman DO 08/02/2024 6:36:15 PM This report has been signed electronically. Number of Addenda: 0 Note Initiated On: 08/02/2024 5:33 PM
--- NOTE | 2024-08-02 18:36 | OP.CCLET_ITS ---
08/02/2024 Nico Schmidt MD [address] [phone] Re : Upper GI endoscopy procedure for Casey Larsen Dear Dr. Schmidt This procedure was performed on Friday, August 02, 2024. My impressions and recommendations are as follows: Impressions : - No endoscopic esophageal abnormality to explain patient's dysphagia. - Erythematous mucosa in the stomach. - No gross lesions in the entire examined duodenum. - An endoscopically removable PEG placement was successfully completed. - No specimens collected. Recommendations : - [facility]. - Please follow the post-PEG recommendations. - Continue present medications. My findings are described in the full procedure note, which is enclosed. If I can be of further assistance, please feel free to contact me at . Sincerely, Americo Chatman, 08/02/2024 6:36:15 PM This report has been signed electronically.
--- NOTE | 2024-08-02 18:54 | PCM.POSTANE2 ---
Anesthesia Postop Eval I Sum Postop Eval Completion status Anesthesia document: Postop Eval 1 completed: Yes Anesthesia Postop Eval I Summary Anesthesia Postop Eval I Summary: Anesthesia Postop Eval I: Assessment Summary Airway patent Yes 08/02/24 18:30 Spontaneous unlabored Yes 08/02/24 18:30 respirations Mental status Asleep 08/02/24 18:30 nausea No 08/02/24 18:30 Vomiting No 08/02/24 18:30 Anesthesia Postop Eval I: Fluid Summary Crystalloid volume administer 200 08/02/24 18:30 (ml) Colloids volume administered ( ml) Blood Product volume administered (ml) Total IV fluid infused 200 08/02/24 18:30 Anesthesia Postop Eval I: Summary Notes Anesthesia Complication No 08/02/24 18:30 Anesthesia Complication Comment: Post-operative progress note Anesthesia: Postop Eval II Evaluation Mental status: Awake and Calm Pain Level: 1 nausea: No Vomiting: No Complications Anesthesia Complication: No
[2024-08-02] MEDS: 0.9% Saline Lock 10 ML Syringe IV (20:18)
[2024-08-02] MEDS: Lactated Ringers 1,000 ML 125 ML IV (20:18)
[2024-08-02] MEDS: Carbidopa/Levodopa 25/100 Tablet GT (20:18)
[2024-08-02] MEDS: Zinc Sulfate 50 mg zinc (220 mg) ORAL capsule GT (20:20)
[2024-08-02] MEDS: Baclofen 10 MG Tablet GT (20:20)
[2024-08-02] MEDS: clonazePAM 0.5 MG Tablet GT (20:35)
[2024-08-03] MEDS: 0.9% Saline Lock 10 ML Syringe IV (02:38)
[2024-08-03] MEDS: Carbidopa/Levodopa 25/100 Tablet GT ×6 (02:38→22:28)
[2024-08-03 02:45] VITALS: BP 154/98; PULSE 90; RESP 18; TEMP 36.7; O2SAT 96
[2024-08-03] MEDS: Lactated Ringers 1,000 ML 125 ML IV ×3 (04:09→20:27)
[2024-08-03 06:58] LABS: Absolute Lymphocyte Count 0.43 X10^3/uL (0.83-4.51); Basophil# 0.04 X10^3/uL; Basophil% 0.5 % (0-1); Differential Indicated SCAN CRITERIA MET; Hematocrit 42.7 % (40-54); Hemoglobin 14.4 g/dL (13.0-16.5); Lymphocyte # 0.43 X10^3/ul (0.83-4.51); Lymphocyte % 5.3 % (19-41); Mean Corp Hgb Conc 33.7 g/dL (32-36); Mean Corpuscular Hgb 30.6 pg (27.0-32.0); Mean Corpuscular Volume 90.9 fL (80-94); Monocyte# 0.57 X10^3/uL; NRBC Flagged by Analyzer 0 % (0-5); Neutrophil # 7.03 X10^3/uL (2.7-7.7); Neutrophil % 86.8 % (47-70); POSITIVE DIFFERENTIAL YES; POSITIVE MORPHOLOGY YES; Platelet Count 245 K/mm3 (150-450); RBC Distribution Width CV 13.6 % (11.6-14.6); RBC Distribution Width SD 45.8 fl (35.1-43.9); White Blood Count 8.1 K/mm3 (4.4-11.0)
[2024-08-03 07:26] LABS: Differential Comment SCANNED
[2024-08-03 08:22] LABS: Anion Gap 14 (5-15); BUN 40 mg/dL (4-19); BUN/Creat Ratio 32.9 RATIO (10-20); Calcium,Total 9.2 mg/dL (7.6-11.0); Carbon Dioxide 23.3 mmol/L (21.0-32.0); Chloride 100 mmol/L (98-108); EST Glomerular Filtration Rate 63 (>60); Estimated Creatinine Clearance 35.21 ml/min (50-250); Glucose 108 mg/dL (70-99); Potassium 4.5 mmol/L (3.3-5.1); Sodium Level 137 mmol/L (133-145)
[2024-08-03 08:33] VITALS: BP 161/98; PULSE 81; RESP 19; TEMP 35.9; O2SAT 98
[2024-08-03] MEDS: Baclofen 10 MG Tablet GT ×2 (08:38→22:23)
[2024-08-03] MEDS: Zinc Sulfate 50 mg zinc (220 mg) ORAL capsule GT ×3 (08:38→22:23)
[2024-08-03] MEDS: Enoxaparin 30 MG/0.3 ML Syringe SC (08:38)
[2024-08-03] MEDS: Ascorbic Acid 500 MG Tablet 1000 MG GT ×2 (08:38→17:49)
[2024-08-03] MEDS: NYSTATIN 500,000 UNIT/5 ML UDC 500000 UNIT PO ×4 (08:39→22:23)
[2024-08-03] MEDS: Menthol/Lanolin/Calamine/Znox 113 GM Tube 1 APPLIC TOPICAL ×2 (08:39→22:23)
[2024-08-03] MEDS: Jevity 1.5 1,000 ML 10 ML GT (11:07)
[2024-08-03] MEDS: Amantadine 100 MG Capsule GT (14:56)
[2024-08-03] MEDS: Baclofen 10 MG Tablet 5 MG GT (14:56)
[2024-08-03 15:04] VITALS: BP 158/98; PULSE 94; RESP 15; TEMP 36.2; O2SAT 96
--- NOTE | 2024-08-03 15:10 | CASEMGMT ---
Addendum entered by Donavan Robles 08/03/24 17:01: Clinical signal helper to provide education/review with tomorrow on TF & flushes. Original Note: MICHELLE KRAMER NOTE: Per Dr Bang, if pt tolerating TF's today and if is comfortable w/pt discharging home today, then he will discharge pt. RN CM to room. Pt resting in bed. @ bedside. Per RN @ bedside, TF rate is currently @ 10 ml/hr, as TF was not able to be started until ~ 11 AM today. states she would prefer for TF rate to be increased more and monitored for residuals and tolerance during the night. She states she is comfortable w/taking him home tomorrow, as long as he is able to tolerate the increase in rate well. Pt is agreeable to this as well. confirms she is comfortable administering TF's and doing flushes at home, as she has done them in the past. Inquired what co. she would like to get TF/nutrition/supplies from. She states she liked the co. they used in the past and would like to use them again. MICHELLE KRAMER reviewed notes from prior admission. TF/supplies was supplied by [facility]. Script for Enteral nutrition prepared by clinical signal helper and signed by Dr Bang. Script sent to [facility] via [employer]. Ivan FINK RN, CM
--- NOTE | 2024-08-03 16:07 | CASEMGMT ---
Discharge Planning Peg tube referral sent to I. Nisa Del Angel DC Planning Asst.
--- NOTE | 2024-08-03 16:33 | PCM.PN.HOSP ---
Subjective Subjective No issues overnight. Will start tube feeds this morning unfortunately were not started overnight Objective Data Objective Data Vital Signs: Vital Signs Temp Pulse Resp BP Pulse Ox O2 Del Method O2 Flow Rate 97.2 F L 94 15 158/98 H 96 Nasal Cannula 2 08/03/24 15:04 08/03/24 15:04 08/03/24 15:04 08/03/24 15:04 08/03/24 15:04 08/03/24 15:04 08/03/24 15:04 FiO2 93 08/03/24 07:17 Oxygen Flow Rate (L/min) 2 Oxygen Delivery Method Nasal Cannula Weight: 103 lb 2.821 oz Body Mass Index (BMI) 16.1 Intake & Output: Intake and Output for Last 24 Hours 08/02/24 08/03/24 08/04/24 03:59 03:59 03:59 Intake Total 230 / 230 100.42 / 100.42 2388.17 / 2388.17 Output Total 1 / Balance 230 / 230 99.42 / 99.42 2388.17 / 2388.17 Medical Nutrition Assessment Dietitian: Malnutrition Criteria Met Start: 07/29/24 14:14 Freq: Status: Active Protocol: Document 07/29/24 14:14 SB (Rec: 07/29/24 14:14 SB [id number]) Nutrition Malnutrition Evidence of Yes Malnutrition Exists Malnutrition (severe Chronic ): Evidenced By Suboptimal Energy Intake (Severe),Physical Changes ( Severe) Clinical Problem Chronic Disease or Condition Related Malnutrition Etiology severe protein calorie malnutrition related to Parkinson's disease resulting in inadequate oral intake Signs/Symptoms as evidenced by PO meeting <75% of estimated nutrition needs greater than 1 month and severe muscle wasting in clavicle, thighs, and calf. Status Active Problem Recommendation Dietitian Continue regular diet per COMPUTER ENGINEERING TECHNOLOGIST consistency/texture Recommendations/ recommendations. Changes Will increase 120ml EPHP TID with medpass to 4x daily. Discontinue siobhan BID with medpass and order orange siobhan BID with breakfast and dinner. Will monitor weight trends. If PO intake and weight continue to decline, recommend nutrition support. Lab / Micro Data 08/03/24 06:22 08/03/24 06:22 Labs: Laboratory Results - last 24 hr 08/03/24 06:22: WBC 8.1, RBC 4.70, Hgb 14.4, Hct 42.7, MCV 90.9, MCH 30.6, MCHC 33.7, RDW Std Deviation 45.8 H, RDW Coeff of Lexii 13.6, Plt Count 245, MPV 12.0, Immature Gran % (Auto) 0.400, Neut % (Auto) 86.8 H, Lymph % (Auto) 5.3 L, [place] % (Auto) 7.0, Eos % (Auto) 0.0, Baso % (Auto) 0.5, Absolute Neuts (auto) 7.0, Absolute Lymphs (auto) 0.43 L, Nucleated RBC % 0, Differential Comment SCANNED, Sodium 137, Potassium 4.5, Chloride 100, Carbon Dioxide 23.3, Anion Gap 14, BUN 40 H, Creatinine 1.20, Estim Creat Clear Calc 35.21 L, Est GFR (MDRD) Non-Af 63, BUN/Creatinine Ratio 32.9 H, Glucose 108 H, Calcium 9.2 Physical Exam Narrative General: Alert, Oriented x3, Cooperative, No apparent distress, severe muscle wasting HEENT: Atraumatic, PERRLA, EOMI, Normocephalic Oral: Moist Mucosa, thrush Neck: Supple, No JVD Lungs: Diminished, Normal air movement, No rhonchi, No wheeze, No rales Cardiovascular: Regular rate, Regular Rhythm, Normal S1, Normal S2, No murmurs Abdomen: Soft, Non Tender, Non-Distended, No Hepato-splenomegaly Extremities: No edema, Capillary Refill Less than 3 Seconds Skin: No rashes, No breakdown Musculoskeletal: No Tenderness to Palpation of Joints or Extremities Neurological: Baseline neurological function with generalized increased weakness Psych/Mental Status: Flat Assessment & Plan Assessment/Plan (1) Syncope: (2) Dysphagia: PLAN: Plan 1. Syncope with an elevated troponin/dysphagia/Parkinson's disease ? Echocardiogram with an EF of 60% and stage I diastolic dysfunction with no wall motion abnormality therefore elevated troponin is likely insignificant ? His Sinemet dosing can put him at significant risk for syncope especially if he is with a poor nutritional status ?PEG tube placement 08/02/2024, nutrition recommends Jevity 1.5 with a goal rate of 40 mL/h with 120 mL water flushes every 4 hours. Will start the rate of 10 mL/h ? Will continue with his home Parkinson's medications ? PT/OT ? Will consult case management for discharge planning 2. Thrush ? Continue with nystatin DVT: Lovenox Charges/Coding Visit Charges Inpatient E&M: 54728 Subs Hosp L2
[2024-08-03 22:12] VITALS: BP 160/99; PULSE 83; RESP 18; TEMP 37.2; O2SAT 98
[2024-08-03] MEDS: Senna/Docusate Sodium 1 Tablet 2 TABLET GT (22:28)
[2024-08-03] MEDS: clonazePAM 0.5 MG Tablet GT (22:28)
[2024-08-04 03:46] VITALS: BP 157/88; PULSE 97; RESP 18; TEMP 36.8; O2SAT 99
[2024-08-04] MEDS: Carbidopa/Levodopa 25/100 Tablet GT ×4 (03:49→13:30)
[2024-08-04] MEDS: Lactated Ringers 1,000 ML 125 ML IV (04:28)
[2024-08-04] MEDS: Baclofen 10 MG Tablet GT (08:19)
[2024-08-04] MEDS: Zinc Sulfate 50 mg zinc (220 mg) ORAL capsule GT (08:20)
[2024-08-04] MEDS: Ascorbic Acid 500 MG Tablet 1000 MG GT (08:20)
[2024-08-04] MEDS: Menthol/Lanolin/Calamine/Znox 113 GM Tube 1 APPLIC TOPICAL (08:21)
[2024-08-04] MEDS: NYSTATIN 500,000 UNIT/5 ML UDC 500000 UNIT PO ×2 (08:22→13:30)
[2024-08-04] MEDS: Enoxaparin 40 MG/0.4 ML Syringe SC (08:22)
[2024-08-04 08:54] VITALS: BP 185/78; PULSE 63
[2024-08-04] MEDS: hydrALAZINE 20 MG/ML Vial 10 MG IV (08:54)
[2024-08-04 09:00] VITALS: BP 185/78; PULSE 62; RESP 16; TEMP 36.6; O2SAT 99
--- NOTE | 2024-08-04 10:08 | DCINST_ITS ---
Discharge Instructions DC O2, CPAP, BIPAP needs Home O2 Discharge instructions: No Dressing / Incision Discharge Activity: Return to Normal Activity Dressing / Incision Call your doctor if you observe: Fever of 101 or Higher, Shortness of breath, Dizziness, Fainting spells, Swelling in the ankles, Chest pain and Increased palpitations (irregular heartbeat) Follow Up Care Test Results: Test results from this visit will be discussed in further detail at your follow- up appointment, if applicable. Discharge Plan Admission Admit Date/Time: 07/29/24 15:37 Attending Provider: Jose Luis Bang Primary Care Provider: Nico Schmidt Consulting Providers: Thalia Hanna; Phani Villeda Discharge Orders/Prescriptions Prescriptions: Continued amantadine HCl 100 mg capsule 100 mg PO DAILY Patient Comments: rasagiline 1 mg tablet 1 mg PO DAILY Patient Comments: carbidopa-levodopa 25-100 mg tablet 2 tab PO 5X/DAY clonazepam 0.5 mg tablet 0.5 mg PO QHS baclofen 10 mg Tablet 10 mg PO 0800 Rx Instructions: . carbidopa-levodopa 25-100 mg Tablet 1 tab PO .COMPLEX Rx Instructions: 1 TAB [id number]; baclofen 10 mg tablet 5 mg PO 1400 baclofen 10 mg tablet 10 mg PO 2300 Referrals / Follow Up: Nico Schmidt MD [Primary Care Provider] - Within 1 Week Disposition Disposition (needs filled in before D/C Order can be placed): Home, Self Care
--- NOTE | 2024-08-04 10:47 | CASEMGMT ---
Discharge Planning Discharge instructions sent to [facility]. Nisa Del Angel DC Planning Asst.
[2024-08-04] MEDS: Baclofen 10 MG Tablet 5 MG GT (13:30)
[2024-08-04] MEDS: Amantadine 100 MG Capsule GT (13:31)
[2024-08-04 15:00] VITALS: BP 138/74; PULSE 69; RESP 18; TEMP 36.6; O2SAT 98
--- NOTE | 2024-08-04 15:23 | CASEMGMT ---
MICHELLE KRAMER received update from [facility], requested documentation sent via [employer] and arrangements made for tubefeeds to be shipped to patient's home next day. I requested tubefeed and supplies be provided to patient to bridge till shipment received. MICHELLE KRAMER requested 2 1000ml bottles of Jevity 1.5 be sent home with patient and 2 syringes. Bottles received and provided to nursing, nursing supplied syringes. HHC updated regarding discharge and planned start of care planned for Friday. MICHELLE KRAMER called and updated regarding tube feed setup and HHC resumption. denies further need or concerns and states she arranged for [email or web address] to picking table worker patietn at [phone]. RN WILLIAMS updated nursing. RN WILLIAMS updated discharge plan.
--- NOTE | 2024-08-04 18:01 | PCM.DC.SUM ---
Providers Date of Admission: 07/29/24 Primary Care Physician: Dr. Nico Schmidt MD Consultations 07/28/24 23:45 Consult: Onc/Wound/clinical educator Routine Comment: 07/30/24 15:10 Consult: Gastroenterology Routine Consulting Provider: [facility] Reason for Consult: feeding tube EMERGENT Consult: No MD Notified: Yes Date Notified: 07/30/24 Time Notified: 15:10 Method of Notification: Text Reason For Visit: SYNCOPE Diagnosis Discharge Diagnosis (1) Syncope: Status: Acute Code(s): R55 - Syncope and collapse (2) Dysphagia: Status: Acute Code(s): R13.10 - Dysphagia, unspecified Plan 1. Syncope with an elevated troponin/dysphagia/Parkinson's disease ? Echocardiogram with an EF of 60% and stage I diastolic dysfunction with no wall motion abnormality therefore elevated troponin is likely insignificant ? His Sinemet dosing can put him at significant risk for syncope especially if he is with a poor nutritional status ?PEG tube placement 08/02/2024, nutrition recommends Jevity 1.5 with a goal rate of 40 mL/h with 120 mL water flushes every 4 hours. Will start the rate of 10 mL/h ? Will continue with his home Parkinson's medications ? PT/OT ? Will consult case management for discharge planning 2. Thrush ? Continue with nystatin DVT: Lovenox Medications at Discharge Home Medications amantadine HCl 100 mg capsule 100 mg PO DAILY PD 11/16/20 rasagiline 1 mg tablet 1 mg PO DAILY PARKINSONS 11/16/20 carbidopa 25 mg-levodopa 100 mg tablet 2 tab PO 5X/DAY Parkinson 02/27/23 baclofen 10 mg tablet 5 mg PO 1400 muscle spasms 07/28/24 baclofen 10 mg tablet 10 mg PO 0800 muscle spasms 07/28/24 baclofen 10 mg tablet 10 mg PO 2300 muscle spasms 07/28/24 carbidopa 25 mg-levodopa 100 mg tablet 1 tab PO .COMPLEX parkinsons 07/28/24 clonazepam 0.5 mg tablet 0.5 mg PO QHS anxiety 07/28/24 Hospital Course Operations None Procedures 2-D Echocardiogram and Peg tube placement Summary of Care Provided Minutes Spent on Discharge: 34 Hospital Course: Per HPI: KATHARINE WATTS, is a 73 M with pmhx of parkinsons, debility, malnutrtition, who presents to the ER for syncope. He was sitting in his chair with his reading him news stories when he suddenly slumped unconscious. His tried to wake him up but he would not respond for about 10 minutes. He then spontaneously regained consciousness. During the time he was out his noted no shaking or muscle spasms. EMS was called and he was brought to the ER. He was found to be hypotensive and with positive orthostatic vitals signs. BP improved with IV fluid administration. He also had elevated troponin. He currently is resting comfortably in bed with his at bedside assisting with hx. He reports he feels at his baseline and denies LH/dizziness, SOB, CP, palpitations. Hospital Course: 1. Syncope with an elevated troponin/dysphagia/Parkinson's disease ? Echocardiogram with an EF of 60% and stage I diastolic dysfunction with no wall motion abnormality therefore elevated troponin is likely insignificant ? His Sinemet dosing can put him at significant risk for syncope especially if he is with a poor nutritional status ?PEG tube placement 08/02/2024, nutrition recommends Jevity 1.5 with a goal rate of 40 mL/h with 120 mL water flushes every 4 hours. Will start the rate of 10 mL/h ? Will continue with his home Parkinson's medications ? PT/OT ? Will consult case management for discharge planning 08/04/2024: He tolerated the tube feeds to 40 mL/h all day yesterday with no significant residuals as well as the flushing. Family does have extensive support at home and would still like to take him home. The research associate professor changed his continuous tube feeds to bolus feedings as indicated in the documentation which we will continue with the Jevity 1.5. He will need extensive outpatient physical therapy as well as home health care. I discussed with him the plan for discharge home which is he agreed to. Physical Exam Narrative General: Alert, Oriented x3, Cooperative, No apparent distress, severe muscle wasting HEENT: Atraumatic, PERRLA, EOMI, Normocephalic Oral: Moist Mucosa, thrush Neck: Supple, No JVD Lungs: Diminished, Normal air movement, No rhonchi, No wheeze, No rales Cardiovascular: Regular rate, Regular Rhythm, Normal S1, Normal S2, No murmurs Abdomen: Soft, Non Tender, Non-Distended, No Hepato-splenomegaly Extremities: No edema, Capillary Refill Less than 3 Seconds Skin: No rashes, No breakdown Musculoskeletal: No Tenderness to Palpation of Joints or Extremities Neurological: Baseline neurological function with generalized increased weakness Psych/Mental Status: Flat Weight / BMI Weight Weight: 103 lb 2.821 oz Body Mass Index (BMI) 16.1 ABG / Lab / Microbiology Data 08/03/24 06:22 08/03/24 06:22 D/C Instructions Call your doctor if you observe: Fever of 101 or Higher, Shortness of breath, Dizziness, Fainting spells, Swelling in the ankles, Chest pain and Increased palpitations (irregular heartbeat) DC O2, CPAP, BIPAP Needs Home O2 Discharge instructions: No Meaningful Use Info Meaningful Use Meaningful Use Diagnoses (Choose all that apply): None applicable Ischemic Stroke Statin Dosing Therapy Reference: STATIN DOSE THERAPY REFERENCE: * Patients > 75 years receive moderate or high dose statin therapy. * Patients 75 years or YOUNGER should receive HIGH intensity statin dose unless contraindicated. You will be required to document reason for non-treatment if statin daily dose does not meet guidelines. HIGH DOSE STATIN THERAPY DAILY Atorvastatin > than or = to 40 mg Rosuvastatin > than or = to 20 mg Amlodipine + Atorvastatin > than or = to 2.5/40 mg Ezetimibe + Simvastatin 10/80 mg Simvastatin 80mg Discharge Plan Admission Admit Date/Time: 07/29/24 15:37 Attending Provider: Jose Luis Bang Primary Care Provider: Nico Schmidt Consulting Providers: Thalia Hanna; Phani Villeda Discharge Orders/Prescriptions Prescriptions: Continued amantadine HCl 100 mg capsule 100 mg PO DAILY Patient Comments: rasagiline 1 mg tablet 1 mg PO DAILY Patient Comments: carbidopa-levodopa 25-100 mg tablet 2 tab PO 5X/DAY clonazepam 0.5 mg tablet 0.5 mg PO QHS baclofen 10 mg Tablet 10 mg PO 0800 Rx Instructions: . carbidopa-levodopa 25-100 mg Tablet 1 tab PO .COMPLEX Rx Instructions: 1 TAB [id number]; baclofen 10 mg tablet 5 mg PO 1400 baclofen 10 mg tablet 10 mg PO 2300 Referrals / Follow Up: Nico Schmidt MD [Primary Care Provider] - 08/11/24 2:00 pm (Jacquelin Elias ) Disposition Disposition (needs filled in before D/C Order can be placed): Home, Self Care Charges/Coding Visit Charges Inpatient E&M: 49254 Disch Hosp >30min
== END 2024-08-04 16:51 | disposition home or self-care (01) | DRG 391 ==
LOC: ED 20:54 → PCU 22:27
PROVIDERS: Internal Medicine Gastroenterology; Admitting Provider Internal Medicine; Emergency Provider Emergency Medicine; PCP Family Medicine; Visit Provider Family Medicine
PROC: 0DJ08ZZ Inspection of Upper Intestinal Tract, Via Natural or Artificial Opening Endoscopic (ICD-10-PCS; CPT 43235; principal; 2024-08-02 16:55)
DX: R13.10 Dysphagia, unspecified (principal); E43 Unspecified severe protein-calorie malnutrition; Z68.1 Body mass index [BMI] 19.9 or less, adult; G20.B1 Parkinson's disease with dyskinesia, without mention of fluctuations; E86.0 Dehydration; F41.9 Anxiety disorder, unspecified; B37.9 Candidiasis, unspecified
CPT/HCPCS: 36415; 71045; 74230; 80048; 80053; 81001; 83036; 83605; 83735; 84100; 84443; 84484; 85025; 85610; 85730; 92526; 92610; 92611; 93005; 93306; 97110; 97161; 97166; 97530; 97535; 97802; 97803; 99285; A4216; J2405